=== PATIENT | female | born 1945 | race Caucasian/White ===

== ENCOUNTER 2018-07-20 17:30 | Outpatient (RCR) | payer BC, SELFPAY ==
--- NOTE | 2018-06-21 07:45 | HP.PTEVAL ---
Patient's Visit Information CROW BARTHOLOMEW is a 72 year old F referred to Physical Therapy by Chaitanya Estrella with a diagnosis of cervical facet OA. Date of Evaluation: 06/21/18 Physical Therapist: Ousmane Montero DPT, OC - Visit Plan Frequency: 2-3x /Week Duration: 2-4 Weeks Plan: 2-3x/week for 2-4 weeks for. 1. STM to UT, rhomboids, scalenes. 2. moist heat and ES to same. 3. postural correction and exercises to help with this and increased blood flow. - Subjective Subjective: Has had chronic neck pain for a long time radiating into thoracic spine. Had blood test recently. Neck pain has worsened in the last 6 months. 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 Picks her up 2-3x every hour. She is getting heavier. 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 Pain is 6/10 currently and this is normal for her. Always has some discomfort. Better stadning or lying and sitting is horrible.. Sleep is interrupted waking up 2-4x/night. Usually on L side. No arm symptoms, feels weak generally. Lifts with 3-5# weights daily. Basic ADLs are getting done but painful. Had vestibular neuritis three years ago. No more dizzyness. Feels unsteady at times. Riding in car is limited to an hour. Sit at computer for only 10 minutes. - Pain neck Pain Intensity (Out of 10): 6 Pain Intensity Range: 2, 7 - Objective 55 R rotation and 50 L rotation hurting contralaterally. 45 extension with just a stretch. Full flexion. Full UE AROM without pain. 2/3 bi and tri strength. Sensation UE WNL. Strength 4/5 UE strength without myotomal abnormalities. Very tender tissue UT into scalenes adn rhomboids. Forward head posture with structural kyphosis in upper thotacic spine. - c/s compression. - Goals Goal 1:: Patient painfree at rest and pain no greater tahn 2/10 Goal Time Frame: 4-6 Weeks Goal 2:: Patient I in approp HEP to manage condition and activity modification Goal Time Frame: 4-6 Weeks Goal 3:: Patient feel 75% improved overall adn sleep without interruption from pain. Goal Time Frame: 4-6 Weeks - Rehabilitation Potential Physical Therapy Diagnosis: cervical degeneration leading to pain. Rehabilitation Potential: Fair - Anticipated Interventions Patient/Client Instruction: Educate patient on: Condition, Plan of Care For the Purpose of:: To decrease pain, To increase ROM, To improve ability of physical actions for home/community/work/leisure Therapeutic Exercise to Include: Strength training, Postural training, Passive ROM, Active ROM For the Purpose of:: To decrease pain, To increase ROM, To improve nutrient delivery to tissue, To increase tolerance to activity/condition/position, To improve ability of physical actions for home/community/work/leisure Manual Therapy Techniques to Include: Mobilization, Soft tissue mobilization For the Purpose of:: To decrease pain, To improve nutrient delivery to tissue TENS: Yes - to c/s Thermo therapy (hot pack): Yes For the Purpose of:: To decrease pain, To decrease swelling/inflammation, To increase ROM Thank you for the opportunity to evaluate your patient. For Medicare and Medicare HMO plans, please review the plan of care and approve it. It will need to be FAXED BACK to us at [phone] for Medicare purposes. Please let me know if there are questions or concerns regarding this plan of care. Physician Signature: Date:
--- NOTE | 2018-09-03 13:33 | HP.PT.NRP ---
HP - Discharge Summary (1) - Patient Information CROW BARTHOLOMEW was seen in my office for initial evaluation on 06/21/18. The following Plan of Care was established for this patient: Initial Frequency: 2-3x /Week Initial Duration: 2-4 Weeks - Anticipated Interventions Patient/Client Instruction: Educate patient on: Condition, Plan of Care For the Purpose of:: To decrease pain, To increase ROM, To improve ability of physical actions for home/community/work/leisure Therapeutic Exercise to Include: Strength training, Postural training, Passive ROM, Active ROM For the Purpose of:: To decrease pain, To increase ROM, To improve nutrient delivery to tissue, To increase tolerance to activity/condition/position, To improve ability of physical actions for home/community/work/leisure Manual Therapy Techniques to Include: Mobilization, Soft tissue mobilization For the Purpose of:: To decrease pain, To improve nutrient delivery to tissue TENS: Yes - to c/s Thermo therapy (hot pack): Yes For the Purpose of:: To decrease pain, To decrease swelling/inflammation, To increase ROM This patient was last seen in our office 07/20/18. Pertinent comments regarding their Physical therapy will appear below: Pt seen 7 visits of POC and was feeling better. She cancelled her last scheduled visit and recheck adn neglected to return. At this point, I will discontinue due to nonattendance. At this point I will be discontinuing this patient from physical therapy. I would be happy to see this patient again in the future if found appropriate by the physician. Thank you! Ousmane Montero, DPT, OCS, CSCS
== END 2018-07-20 19:00 | disposition home or self-care (01) ==
LOC: PT 17:30
PROVIDERS: Family Provider Family Medicine; PCP Family Medicine; Visit Provider Family Medicine
DX: M46.92 Unspecified inflammatory spondylopathy, cervical region (principal); Z71.89 Other specified counseling; Z23 Encounter for immunization; Z13.1 Encounter for screening for diabetes mellitus; Z13.220 Encounter for screening for lipoid disorders
CPT/HCPCS: 97035; 97110; 97140; 97162; 97530

== ENCOUNTER 2018-10-14 01:17 | Observation (INO) | payer BC, SELFPAY ==
[2018-10-14] VITALS (13 sets, daily range): BP systolic 130–162; BP diastolic 62–92; PULSE 61–126; RESP 16–19; TEMP 36.2–37.1; O2SAT 95–100; BMI 27.0; BMI 25.2
--- NOTE | 2018-10-14 01:39 | EKG12_ITS ---
Test Reason : Blood Pressure : / mmHG Vent. Rate : 127 BPM Atrial Rate : 127 BPM P-R Int : 000 ms QRS Dur : 070 ms QT Int : 304 ms P-R-T Axes : 000 001 020 degrees QTc Int : 441 ms Accelerated Junctional rhythm with retrograde conduction Septal infarct , age undetermined Abnormal ECG Confirmed by ANGELA BAILEY, HERMAN ([id number]), television news video editor DANA RICHARDSON ([id number]) on 10/18/2018 5:11:45 PM Referred By: Pj Bose Confirmed By:HERMAN MILLER MD
--- NOTE | 2018-10-14 01:39 | RAD_ITS ---
STUDY: X-RAY CHEST REASON FOR EXAM: Female, 72 years old. Palpitations. TECHNIQUE: AP portable chest. COMPARISON: None. FINDINGS: The lungs are clear and expanded. There is no demonstrated pleural abnormality. Normal size heart. Normal mediastinum and elisha. Normal visualized pulmonary arteries. Normal visualized aortic arch and descending thoracic aorta. Normal visualized thoracic spine. Normal visualized ribs, clavicles, and shoulders. There is no demonstrated abnormality of the visualized soft tissue structures of the upper abdomen. RAD/Chest 1 View (Portable) IMPRESSION: Normal x-ray examination of the chest. Electronically Signed: Ramón Cleveland MD at 2:29 EST , Service support ,
[2018-10-14] MEDS: Aspirin 81 MG TAB.CHEW 324 MG PO (01:54)
[2018-10-14 01:56] LABS: Absolute Lymphocyte Count 2.93 X10^3/ul (0.83-4.51); Absolute Neutrophil Count 2.9 X10^3/uL (2.0-7.7); Basophil# 0.04 X10^3/uL; Basophil% 0.6 % (0-1); Eosinophil# 0.55 X10^3/uL; Eosinophils% 7.8 % (0-5); Hematocrit 43.2 % (37-47); Hemoglobin 13.8 g/dl (12.0-15.0); Lymphocyte # 2.93 X10^3/ul (4.0); Lymphocyte % 41.6 % (19-41); Mean Corp Hgb Conc 31.9 g/gl (32-36); Mean Corpuscular Hgb 31.4 pg (27.0-32.0); Mean Corpuscular Volume 98.4 fL (81-99); Mean Platelet Vol. 12.8 fl (6.2-12.0); Monocyte# 0.58 X10^3/uL; Monocyte% 8.2 % (0-10); Neutrophil # 2.93 X10^3/uL (2.7-7.7); Neutrophil % 41.7 % (47-70); POSITIVE COUNT NO; POSITIVE DIFFERENTIAL NO; POSITIVE MORPHOLOGY NO; Platelet Count 206 K/mm3 (150-450); RBC Distribution Width CV 13.5 % (11.6-14.6); RBC Distribution Width SD 48.5 fl (35.1-43.9); Red Blood Count 4.39 M/mm3 (4.2-5.4)
[2018-10-14 02:14] LABS: Anion Gap 10 (5-15); BUN 15 mg/dL (7-18); BUN/Creat Ratio 16.8 RATIO (10-20); Calcium,Total 9.8 mg/dL (8.5-10.1); Chloride 106 mmol/L (98-107); Creatinine, Serum 0.89 mg/dL (0.55-1.02); EST Glomerular Filtration Rate 66 mL/min (>60); Est Glom Filt Rate - Afr Amer 80 mL/min (>60); Estimated Creatinine Clearance 51.41 ml/min; Glucose 89 mg/dL (74-106); Potassium 3.9 mmol/L (3.5-5.1); Sodium Level 140 mmol/L (136-145)
--- NOTE | 2018-10-14 02:52 | PCM.HP.STD ---
Problem List (1) Atrial fibrillation with RVR Status: Acute (2) Hypertension Status: Chronic History of Present Illness Date of Admission: 10/14/18 Chief Complaint: racing heart The patient is a 72 year old F with a significant history of hypertension; and vestibular neuritis who presented to the emergency department because of a feeling of her heart racing. Her symptoms started few hours before her admission. Patient reported that she woke up and she felt strange. She reported that she felt that her heart was beating fast on the right side of her chest. She checked her pulse and pulse was 127. Her blood pressure was 147/77. Associated with her symptoms is nausea and malaise. Emegency Department doctor reported that whiles in patient's room, patient's heart rate was between 90-140 on the monitor and patient was in A. fib. EKG at the emergency department showed accelerated junctional. Emergency department doctor reported that after IV hydration patient converted back to sinus rhythm with a heart rate of below 90. 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) Leg pain (Chronic) Osteopenia (Chronic) Osteoarthritis (Chronic) Vestibular neuritis (Chronic) crain phlebectatica (Chronic) Allergies Sulfa (Sulfonamide Antibiotics) Allergy (Verified 10/14/18 01:18) Itching Benzodiazepines Adverse Reaction (Verified 10/14/18 01:18) Other Home Medications: Ambulatory Orders Medication Instructions Recorded Cholecalciferol (VIT D3) [Vitamin 1,000 unit PO BID 03/10/16 D] Ibuprofen [Advil] 400 mg PO PRN PRN 03/10/16 Latanoprost 0.005% [Xalatan 1 drop EACH EYE QHS 03/10/16 Opthalmic] Magnesium 500 mg PO BID 03/10/16 Surgical History: - - The patient has a history of tonsillectomy at age of 16. She has had multiple vein procedures as discussed above. She has a history of bilateral carpal tunnel release. A Ramos's neuroma was removed from her right foot. She's had bilateral cataract surgery. Lives: Spouse/ Significant Other Smoking Status: Never smoker Alcohol: Occasional - *Family History Maternal History Items: - - The patient's father at age of 62 from myocardial infarction. He also suffers from obesity. The patient's mother at age of 81, with a history of arthritis and dementia. Review of Systems Constitutional: Denies: Chills, Fever, Weight Change HEENT: Denies: Head Aches, Sinus Congestion, Sinus Drainage Cardiovascular: Reports: Palpitations. Denies: Chest Pain Respiratory: Denies: Cough, Shortness of breath at rest, Sputum production Gastrointestinal: Reports: Nausea. Denies: Abdominal Pain, Vomiting Genitourinary: Denies: Dysuria Musculoskeletal: Denies: Joint Pain, Joint Tenderness Skin: Denies: Rash, Wounds Neurological: Denies: Numbness, Tingling, Focal weakness Psychiatric: Denies: Anxiety, Depression, Homicidal Ideations, Suicidal Ideations Hematologic/ Lymphatic: Denies: Easy Bruising, Easy Bleeding VTE Information - Inpt Only VTE Present on Admission: No VTE Mechan Device Prophylaxis: None VTE Pharm Prophylaxis ordered?: No Reason prophylaxis not ordered:: Treatment Not Indicated - Started on therapeutic dose of Lovenox for A. fib. Patient Problems: Active and Suspected Problems Atrial fibrillation with RVR (Acute) - Physical Exam General: Alert, Oriented x3, Cooperative HEENT: Atraumatic, PERRLA, EOMI, Normocephalic Neck: Supple, No JVD, Negative Carotid Bruits Lungs: Clear to auscultation, Normal air movement Cardiovascular: No murmurs, Irregular Rate Abdomen: Bowel Sounds Present, Soft, Non Tender Extremities: No edema, Capillary Refill Less than 3 Seconds Skin: No rashes, No breakdown Musculoskeletal: No Tenderness to Palpation of Joints or Extremities Neurological: Neuro grossly intact Psych/Mental Status: Normal Affect, Appropriate Vital Signs Temp Pulse Resp BP Pulse Ox 97.1 F L 126 H 19 H 162/92 H 100 10/14/18 01:19 10/14/18 01:19 10/14/18 01:19 10/14/18 01:10/14/18 01:43 Oxygen Delivery Method Room Air Weight: 73.7 kg Body Mass Index (BMI) 27.0 Laboratory Tests Past 24 Hrs 10/14/18 10/14/18 01:25 01:25 WBC 7.0 RBC 4.39 Hgb 13.8 Hct 43.2 MCV 98.4 MCH 31.4 MCHC 31.9 L RDW 13.5 RDW Differential 48.5 H Plt Count 206 MPV 12.8 H Immature Gran % (Auto) 0.100 Neut % (Auto) 41.7 L Lymph % (Auto) 41.6 H [place] % (Auto) 8.2 Eos % (Auto) 7.8 H Baso % (Auto) 0.6 Absolute Neuts (auto) 2.9 Absolute Lymphs (auto) 2.93 Total Counted Not Reportable Sodium 140 Potassium 3.9 Chloride 106 Carbon Dioxide 24.0 Anion Gap 10 BUN 15 Creatinine 0.89 Estim Creat Clear Calc 51.41 Est GFR (MDRD) Af Amer 80 Est GFR (MDRD) Non-Af 66 BUN/Creatinine Ratio 16.8 Glucose 89 Calcium 9.8 Troponin I < 0.015 TSH 5.70 H Assessment/Plan All Active Problems Atrial fibrillation with RVR (Acute) Superficial thrombophlebitis (Acute) The patient is a 72 year old F with a significant history of hypertension; and vestibular neuritis who presented to the emergency department because of a feeling of her heart racing and found to be in new onset A. fib with RVR. A. fib with RVR Admitted to PCU on telemetry Obtain echo Lovenox 1 mg per kilogram subcutaneous x1 Because of concomitant hypertension will start patient on low-dose beta-yvonne. Check magnesium TSH was elevated. Will check free T4. We will continue patient on maintenance IV fluids because she could have been in A. fib due to dehydration. Consider cardiology consult Hypertension Patient reports that at home she controlled her blood pressure with diet. She reported that every time that her blood pressure is in the 150s. On admission her blood pressure was not within goal. We will start patient on low-dose metoprolol Elevated TSH Will check free T4. DVT Prophylaxis Not indicated since patient has been given therapeutic dose of Lovenox. Code Visit OBSV E&M: 95677 Initial observation care L3
--- NOTE | 2018-10-14 02:56 | ED.DCSUM_ITS ---
- ER Visit Summary Date of Service: 10/14/18 Chief Complaint: Heart racing History of Present Illness: The patient is a 72 F that woke up at 12:30 AM with her heart racing. She said her heart rate was in the 120s. She had some nausea and right side chest pain as well as palpitations. She felt weird. She never had these symptoms before. Nothing seemed to bring them on or make them worse. Nothing seemed to make them better. She reports a history of hypertension and glaucoma. She denies any history of dysrhythmias or coronary disease. Denies any history of PE or aortic disease. Physical Examination: Afebrile and vital signs unremarkable except for a blood pressure of 149/103 and a heart rate between 90 and 140. She is alert and oriented and appears anxious. Heart is irregularly irregular. Lungs are clear. Abdomen soft. Pulses are irregular. Calves are soft and supple, symmetric. Skin appears unremarkable. Test Results: EKG was read as a junctional rhythm at a rate of 127. CBC, BMP, troponin unremarkable. TSH 5.70 and chest x-ray normal. Emergency Department Course and Treatment: Patient placed on a monitor. Treated with a fluid bolus. Workup as above. On reevaluation at 2:50 AM, the patient was feeling slightly better. Heart rate was 81 and she appeared to be in sinus rhythm. Patient presents with new onset atrial fibrillation. Hospitalist was contacted for further inpatient care. Treatment Plan: As above Disposition: AdMission Impression: 1. Atrial fibrillation 2. Hypothyroidism This note was generated with [employer] dictation software. It may contain incorrect words, spelling, and punctuation that were not noted in review of the chart prior to signing ED Disposition - Plan for ED Patient: Referrals: Chaitanya Estrella III, MD [Primary Care Provider] -
--- NOTE | 2018-10-14 04:32 | ECHOD_ITS ---
Reason For Study: ATRIAL FIB-FLUTTER Procedure This was a 2D Doppler, Color Flow transthoracic echocardiogram. Exam performed portable in patient room. Left Ventricle Normal LV size. Left ventricular systolic function is normal. The estimated ejection fraction is 55 %. No evidence for diastolic dysfunction. No regional wall motion abnormalities noted. Right Ventricle Normal RV size. Normal systolic function. Atria The left atrium is mildly enlarged. Normal right atrium. Mitral Valve Mild diffuse mitral valve thickening. Mild (1+) eccentric mitral valve insufficiency. Tricuspid Valve Normal tricuspid valve. Mild (1+) tricuspid valve insufficiency. Pulmonary artery systolic pressure is 28 mmHg. Aortic Valve Trisinus/trileaflet aortic valve. Pulmonic Valve Normal pulmonic valve. Great Vessels Normal aortic root. The pulmonary artery is normal size. Normal inferior vena cava. Pericardium/Pleural No pericardial effusion. MMode/2D Measurements & Calculations LVIDd: 3.9 cm IVSd: 0.89 cm Ao root diam: 2.9 cm LVIDs: 2.6 cm LVPWd: 0.95 cm RVDd: 3.9 cm FS: 33.5 % LAV(MOD-bp): 74.6 ml LVAd ap4: 26.9 cm2 SV(MOD-sp4): 42.3 ml LAV(MOD-bp) Indexed: 42.5 ml/m2 EDV(MOD-sp4): 74.7 ml LAV(MOD-sp2): 82.0 ml EDV(sp4-el): 78.5 ml LAV(MOD-sp4): 60.3 ml LVAs ap4: 15.3 cm2 ESV(MOD-sp4): 32.4 ml ESV(sp4-el): 33.3 ml EF(MOD-sp4): 56.7 % EF(sp4-el): 57.5 % SV(sp4-el): 45.1 ml LA A4 area: 21.7 cm2 LA dimension(2D): 3.3 cm RA A4 area: 19.7 cm2 Time Measurements MV dec time: 0.20 sec Doppler Measurements & Calculations MV E max cy: 92.8 cm/sec Lat Peak E' Cy: 16.4 cm/sec Med Peak E' Cy: 10.5 cm/sec MV A max cy: 64.3 cm/sec E/E' lat: 5.7 E/E' med: 8.9 MV E/A: 1.4 Ao V2 max: 142.9 cm/sec LV V1 max: 108.0 cm/sec PA V2 max: 72.8 cm/sec Ao max P.2 mmHg LV V1 max P.7 mmHg TR max cy: 240.3 cm/sec TR max P.1 mmHg Interpretation Summary Normal LV size. Left ventricular systolic function is normal. The estimated ejection fraction is 55 %. No evidence for diastolic dysfunction. Mild diffuse mitral valve thickening. Mild (1+) eccentric mitral valve insufficiency. Ordering Physician: Pj Bose Referring Physician: [place] KENNEDY Performed By: Marce Sharp RDCS
[2018-10-14] MEDS: 0.9% Normal Saline 1,000 ML 100 ML IV (04:50)
[2018-10-14] MEDS: Metoprolol Tartrate 25 MG Tablet 12.5 MG PO (05:16)
[2018-10-14] MEDS: Enoxaparin 80 MG/0.8 ML Syringe SC (05:18)
[2018-10-14 06:31] LABS: Cholesterol 151 mg/dL (200); High Density Lipoprotein 50 mg/dL; Magnesium 2.3 mg/dL (1.6-2.6); T4 Free Direct 1.08 ng/dL (0.76-1.46); Triglycerides 57 mg/dL; Very Low Density Lipoprotein 11 mg/dL (5-40)
--- NOTE | 2018-10-14 12:52 | EKG12_ITS ---
Test Reason : POST CARDIOVERSON Blood Pressure : / mmHG Vent. Rate : 059 BPM Atrial Rate : 059 BPM P-R Int : 216 ms QRS Dur : 080 ms QT Int : 418 ms P-R-T Axes : 060 -04 037 degrees QTc Int : 413 ms Sinus bradycardia with 1st degree A-V block Otherwise normal ECG When compared with ECG of 14-OCT-2018 01:22, MANUAL COMPARISON REQUIRED, DATA IS UNCONFIRMED Confirmed by ANGELA BAILEY, HERMAN ([id number]), acquisitions editor DANA RICHARDSON ([id number]) on 10/18/2018 5:24:33 PM Referred By: Pj Bose Confirmed By:HERMAN MILLER MD
--- NOTE | 2018-10-14 15:06 | DCINST_ITS ---
- Discharge Diagnoses Current Active Problems: Current Active and Chronic Problems Atrial fibrillation with RVR (Acute) You will use the following diet at home:: Cardiac Your food should be the consistency of: Regular Your liquids should be the consistency of: Regular/Thin Discharge Activity: Return to Normal Activity Allergies/Adverse Reactions: Allergies Sulfa (Sulfonamide Antibiotics) Allergy (Verified 10/14/18 01:18) Itching Benzodiazepines Adverse Reaction (Verified 10/14/18 01:18) Other Medications to take at Discharge Cholecalciferol (VIT D3) [Vitamin D3] 1,000 unit PO BID 03/10/16 Ibuprofen [Motrin] 400 mg PO PRN PRN 03/10/16 Latanoprost 0.005% [Xalatan Opthalmic] 1 drop EACH EYE QHS 03/10/16 Magnesium 500 mg PO BID 03/10/16 Metoprolol Tartrate [Lopressor (beta yvonne)] 12.5 mg PO BID #30 tablet 10/14/18 The following prescriptions were given: Metoprolol Tartrate [Lopressor (beta yvonne)] 12.5 mg PO BID #30 tablet Primary Care Physician: Chaitanya Estrella III, MD [Primary Care Provider] - Please follow up with your Primary Care Physician in: 7-10 days Test Results: Test results from this visit will be discussed in further detail at your follow- up appointment, if applicable. Please Follow Up With: Dominguez Garsia MD When: 14 days Proposed Discharge Date: 10/14/18
--- NOTE | 2018-10-14 17:03 | PCM.DC.SUM ---
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 Left ventricular systolic function is normal. The estimated ejection fraction is 55 %. No evidence for diastolic dysfunction. Mild diffuse mitral valve thickening. Mild (1+) eccentric mitral valve insufficiency. RAD/Chest 1 View (Portable) IMPRESSION: Normal x-ray examination of the chest. Operations: None Procedures: 2-D Echocardiogram Summary of Care Provided: Hospital Course: The patient is a 72 year old F with pmhx as above who presented to the ER with racing heart. She was found to have an atrial rhythm with rate in the 120s. EKG was obtained at at that time she was thought to be in Afib. She was given IV fluids and her rate slowed down. She was given therapeutic lovenox. She was admitted to the PCU for monitoring. She was started on low dose beta yvonne. She remained stable overnight with no further issues. Troponin was negative. Mag normal. TSH somewhat elevated, however T4 normal. The case was discussed with cardiology. On further review the EKG did not appear to show Afib. She has no hx of Afib. Cardiology recommended an event monitor and this was arranged for her. She will go on low dose lopressor. She had an echo which was unremarkable as above. She will need to follow up with her PCP in 7-[address] Garsia in 2 weeks. She was discharged home in stable condition. This patient was seen by Tavon Motta PA-C under the supervision of Doctor Do. [] - Physical Exam General: Alert, Oriented x3, Cooperative HEENT: Atraumatic, PERRLA, EOMI, Normocephalic Neck: Supple, No JVD, Negative Carotid Bruits Lungs: Clear to auscultation, Normal air movement Cardiovascular: Regular rate, No murmurs Abdomen: Bowel Sounds Present, Soft, Non Tender Extremities: No edema, Capillary Refill Less than 3 Seconds Skin: No rashes, No breakdown Musculoskeletal: No Tenderness to Palpation of Joints or Extremities Neurological: Cranial nerves II-XII grossly intact Psych/Mental Status: Normal Affect, Appropriate, Alert and oriented to time, place, person, mood and affect Vital Signs Temp Pulse Resp BP Pulse Ox 98.7 F 61 16 130/62 H 96 10/14/18 10:19 10/14/18 14:06 10/14/18 10:10/14/18 10:10/14/18 13:52 Oxygen Delivery Method Room Air Weight: 151 lb 10.848 oz Body Mass Index (BMI) 25.2 Intake and Output for Last 24 Hours 10/12/18 10/13/18 10/14/18 23:59 23:59 23:59 Intake Total 480 / 480 Balance 480 / 480 Laboratory Tests Past 24 Hrs 10/14/18 10/14/18 10/14/18 01:25 01:25 05:25 WBC 7.0 RBC 4.39 Hgb 13.8 Hct 43.2 MCV 98.4 MCH 31.4 MCHC 31.9 L RDW 13.5 RDW Differential 48.5 H Plt Count 206 MPV 12.8 H Immature Gran % (Auto) 0.100 Neut % (Auto) 41.7 L Lymph % (Auto) 41.6 H [place] % (Auto) 8.2 Eos % (Auto) 7.8 H Baso % (Auto) 0.6 Absolute Neuts (auto) 2.9 Absolute Lymphs (auto) 2.93 Total Counted Not Reportable Sodium 140 Potassium 3.9 Chloride 106 Carbon Dioxide 24.0 Anion Gap 10 BUN 15 Creatinine 0.89 Estim Creat Clear Calc 51.41 Est GFR (MDRD) Af Amer 80 Est GFR (MDRD) Non-Af 66 BUN/Creatinine Ratio 16.8 Glucose 89 Calcium 9.8 Magnesium 2.3 Troponin I < 0.015 Triglycerides 57 Cholesterol 151 LDL Cholesterol 90 VLDL Cholesterol 11 HDL Cholesterol 50 TSH 5.70 H Free T4 1.08 Discharge Diet: Low fat/ Low Cholesterol, 2000 mg Sodium Diet Discharge Activity: Return to Normal Activity Home Medications: Medications to take at Discharge Cholecalciferol (VIT D3) [Vitamin D3] 1,000 unit PO BID 07/18/16 Ibuprofen [Motrin] 400 mg PO PRN PRN 03/10/16 Latanoprost 0.005% [Xalatan Opthalmic] 1 drop EACH EYE QHS 03/10/16 Magnesium 500 mg PO BID 03/10/16 Metoprolol Tartrate [Lopressor (beta yvonne)] 12.5 mg PO BID #30 tablet 10/14/18 Following Prescrptions Were Given to Patient: Metoprolol Tartrate [Lopressor (beta yvonne)] 12.5 mg PO BID #30 tablet Primary Care Physician: Chaitanya Estrella III, MD [Primary Care Provider] - Please follow up with your Primary Care Physician in: 7-10 days Please Follow Up With: Dominguez Garsia MD When: 14 days Disposition: Home Minutes spent on discharge:: 35 Patient Condition:: Stable Medical Necessity - Tobacco Use Smoking Status: Never smoker Meaningful Use Info Meaningful Use Diagnoses (Choose all that apply): None applicable
== END 2018-10-14 15:05 | disposition home health service (06) ==
LOC: ED 01:55 → PCU 04:08
PROVIDERS: Admitting Provider Hospitalist; Emergency Provider Emergency Medicine; Family Provider Family Medicine; PCP Family Medicine; Referring Provider Hospitalist; Visit Provider Internal Medicine
DX: R00.0 Tachycardia, unspecified (principal); I10 Essential (primary) hypertension; M19.90 Unspecified osteoarthritis, unspecified site; H40.9 Unspecified glaucoma; I87.2 Venous insufficiency (chronic) (peripheral); H93.3X9 Disorders of unspecified acoustic nerve; I48.91 Unspecified atrial fibrillation; Z79.899 Other long term (current) drug therapy; R00.2 Palpitations; R07.89 Other chest pain; R11.0 Nausea; E03.9 Hypothyroidism, unspecified
CPT/HCPCS: 36415; 71045; 80048; 80061; 83735; 84439; 84443; 84484; 85025; 93005; 93306; 96360; 96361; 96372; 99218; 99285; J7030; A4216; G0378

== ENCOUNTER → 2018-10-14 16:25 | Outpatient (CLI) | payer BC, SELFPAY ==
[2018-10-14 04:45] VITALS: BMI 25.2
== END ==
PROVIDERS: Family Provider Family Medicine; PCP Family Medicine; Referring Provider Internal Medicine Cardiovascular Disease; Visit Provider Internal Medicine Cardiovascular Disease
DX: I48.91 Unspecified atrial fibrillation (principal)
CPT/HCPCS: 93225; 93226

== ENCOUNTER → 2018-11-01 08:17 | Outpatient (CLI) | payer BC, SELFPAY ==
[2018-11-01 08:09] VITALS: BMI 25.2
--- NOTE | 2018-11-01 08:20 | RAD_ITS ---
STUDY: X-RAY - RIGHT KNEE REASON FOR EXAM: Female, 72 years old. Pain. TECHNIQUE: 4 view(s) of the knee. COMPARISON: None. FINDINGS: Normal visualized distal femur. Normal visualized proximal tibia and fibula. Normal proximal tibiofibular articulation. There is no demonstrated fracture. Normal medial femorotibial compartment. Normal lateral femorotibial compartment. Normal patellofemoral articulation. There is a soft tissue prominence in the suprapatellar region suggesting a small volume joint effusion. The soft tissue structures are unremarkable. RAD/Knee 4 or More Views IMPRESSION: No acute fracture or dislocation. Possible small effusion. Electronically Signed: Wellington Blanca MD at 0:03 EDT , Service support ,
== END ==
PROVIDERS: Family Provider Family Medicine; PCP Family Medicine; Referring Provider Orthopaedic Surgery; Visit Provider Orthopaedic Surgery
DX: R52 Pain, unspecified (principal)
CPT/HCPCS: 73564

== ENCOUNTER 2019-06-07 06:30 | Emergency (ER) | payer BC, SELFPAY ==
[2018-11-03 16:09] VITALS: BMI 24.8
[2019-06-07 06:31] VITALS: BP 145/67; PULSE 76; RESP 16; TEMP 36.6; O2SAT 96; BMI 25.0
--- NOTE | 2019-06-07 06:49 | EKG12_ITS ---
Test Reason : SOB Blood Pressure : / mmHG Vent. Rate : 074 BPM Atrial Rate : 074 BPM P-R Int : 174 ms QRS Dur : 084 ms QT Int : 384 ms P-R-T Axes : 067 -13 053 degrees QTc Int : 426 ms Normal sinus rhythm Normal ECG Confirmed by DOMINGO BAILEY, AIDE ([id number]), makeup editor ISATU JACKSON ([id number]) on 06/08/2019 9:01:05 AM Referred By: JAN Confirmed By:AIDE LANE MD
--- NOTE | 2019-06-07 06:49 | RAD_ITS ---
HISTORY: cough, SOB EXAMINATION/TECHNIQUE: XR Chest 2 Views: COMPARISON: 10/14/2018 FINDINGS: The heart is upper normal in size. Mild hyperinflation compatible with COPD. With comparison to previous, the left perihilar bronchovascular markings are increased related to bronchitis or low-grade infiltrate. No vascular congestion or pleural effusion. No pneumothorax. RAD/Chest PA and Lateral IMPRESSION: COPD with increased left perihilar bronchovascular markings related to bronchitis or low-grade pneumonia at 0758 Reported and signed by: Adams Navarro MD Electronically Signed: Adams Navarro, at 7:57 EDT Tel , Service support ,
--- NOTE | 2019-06-07 06:50 | ED.VIS.DYS ---
History of Present Illness Chief Complaint: Shortness of Breath Informant: Patient Onset: Days - 4 Activity at onset: - - Gradual onset Quality: Dyspnea on exertion, Wheezing Current Severity: Severe Maximum Severity: Severe Worsened by: Coughing, Exertion. Not Worsened By: Lying flat Relieved by: Nothing Associated Symptoms: Cough, Green sputum. 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 In the past 4 days she has become gradually wheezing and short of breath. She has a history of asthma in the past that she thought maybe she outgrew. She has not tried any inhalers or albuterol treatments. She went back to urgent care since she has been coughing up green sputum now and short of breath and thought they would see her again but they sent her to the ER. She denies any lower extremity edema or chest discomfort. No history of heart problems. PE Risk Factors: Negative for: Cancer, OCP + Smoking + > 35, Prior DVT or PE, Recent immobilization, Recent surgery, Recent travel - Past Medical History (1) Atrial tachycardia Status: Resolved (2) Essential (primary) hypertension Status: Chronic (3) Asthma Status: Chronic Past Medical History - Allergies and Home Meds Allergies/Adverse Reactions: Allergies Sulfa (Sulfonamide Antibiotics) Allergy (Verified 06/07/19 06:50) Itching Benzodiazepines Adverse Reaction (Verified 06/07/19 06:50) Other Primary Care Physician: Chaitanya Estrella III, MD [Primary Care Provider] - Lives: Alone Smoking Status: Never smoker - Family History Maternal Family History: Family History (Last Reviewed 11/03/18 @ 16:23 by Dominguez Garsia MD) Father Myocardial infarction Family History: Reports: - - The patient's father at age of 62 from myocardial infarction. He also suffers from obesity. The patient's mother at age of 81, with a history of arthritis and dementia. Review of Systems General: Reports: Malaise. Denies: Chills, Fever, Sweats Eyes: Denies: Visual changes - bilaterally, Diplopia ENT: Denies: Bilateral ear pain, Rhinorrhea, Sore throat Cardiovascular: Denies: Chest pain, Palpitations, Heart racing Respiratory: Reports: Dyspnea, Cough, Sputum, Dyspnea on exertion Gastrointestinal: Denies: Abdominal pain, Nausea, Vomiting, Diarrhea, Melena, Hematochezia Genitourinary: Denies: Dysuria, Hematuria, Frequency Musculoskeletal: Denies: Back pain, Swelling, Extremity Pain Skin: Denies: Rash, Wounds Neurological: Reports: Headache - improved now. Denies: Weakness, Numbness Physical Exam Vital Signs/Narrative: Vital Signs Temp Pulse Resp BP Pulse Ox 06/07/19 06:31 97.8 F 76 16 145/67 H 96 Inital Vital Signs reviewed: Yes General: Well nourished, Well developed, Acute Distress - mild resp, speaking in 3-5-word sentences Head: Normocephalic, Atraumatic Eyes: Perrl, EOMI ENT: Moist mucous membranes, No rhinorrhea, TM's clear. Negative for: Nasal congestion, Sinus tenderness Neck: Supple, Nontender, No lymphadenopathy, No JVD Cardiovascular: Regular rate, Regular rhythm, No murmurs, Normal S1, Normal S2 Respiratory: No distress, Chest nontender, Rales - bibasilar, Wheezing - mild bibasilar Abdomen: Soft, Nontender, Nondistended, Normal bowel sounds Back: Nontender, Normal Inspection Extremities: Nontender, No edema. Negative for: Calf Tenderness Skin: Normal color, No rash, No Trauma Neurological: Alert, Oriented x3, Cranial nerves II-XII grossly intact, Normal Strength, Normal Sensation Psychological: Normal affect, Normal Mood Diagnostic/Tx/Re-eval Impressions Chest X-Ray 06/07/19 06:49 IMPRESSION: COPD with increased left perihilar bronchovascular markings related to bronchitis or low-grade pneumonia at 0758 Reported and signed by: Adams Navarro MD Electronically Signed: Adams Navarro, at 7:57 EDT Tel , Service support , 06/07/19 06:49 Chest PA and Lateral [RAD] Stat Laboratory Results 06/07/19 06/07/19 06/07/19 06:45 06:45 06:45 WBC 6.4 RBC 4.01 L Hgb 13.2 Hct 39.6 MCV 98.8 MCH 32.9 H MCHC 33.3 RDW Std Deviation 45.7 H RDW Coeff of Dulce 12.6 Plt Count 233 MPV 12.0 Immature Gran % (Auto) 0.300 Neut % (Auto) 51.2 Lymph % (Auto) 26.5 [place] % (Auto) 10.7 H Eos % (Auto) 9.9 H Baso % (Auto) 1.4 H Absolute Neuts (auto) 3.3 Absolute Lymphs (auto) 1.69 Nucleated RBC % 0 Sodium 140 Potassium 3.6 Chloride 106 Carbon Dioxide 30.0 Anion Gap 4 L BUN 11 Creatinine 0.78 Estim Creat Clear Calc 45.09 Est GFR (MDRD) Af Amer 94 Est GFR (MDRD) Non-Af 77 BUN/Creatinine Ratio 14.2 Glucose 116 H Calcium 9.3 Troponin I < 0.015 B-Natriuretic Peptide 32.8 - Rhythm Strip Rhythm Strip: Sinus Rhythm Rate: 74 Ectopy: None - EKG Initial EKG Interpretation: Sinus Rhythm, No Acute Injury Pattern - nml EKG Treatment - Dyspnea: Albuterol, Atrovent, Steroid Repeat Evaluation: Improved - Medical Decision Making Chest x-ray shows chronic changes plus changes that may indicate acute bronchitis versus early pneumonia. She felt a lot better after nebulizer treatments, she did feel dyspneic with some bronchospasm make episodes, but was able to recover on her own from these without other treatment. Her labs are unremarkable with a negative BNP and troponin, her EKG is normal. I offered admission but she declines and is comfortable going home with antibiotics and prednisone, she was given an initial dose of Solu-Medrol here. She will also be given a prescription for albuterol MDI to use at home as needed. She is comfortable with this plan and we discussed reasons to return. ED Disposition - Plan for ED Patient: Disposition: Home or Assisted Living Diagnosis: Asthma exacerbation, Acute bronchitis Instructions: ASTHMA, Acute (Adult), BRONCHITIS, Antiobiotic Treatment (Adult) Prescriptions: Prednisone [Deltasone] 40 mg PO DAILY #10 tab Transmission Status: Pending to [facility] Albuterol Inhaler [Ventolin Hfa] 1 - 2 puff INHALATION Q4H PRN PRN #1 inhaler PRN Reason: Wheezing Transmission Status: Pending to [facility] Azithromycin [Zithromax Z-Kenneth] 250 mg PO UD #1 box Transmission Status: Pending to [facility] Referrals: Chaitanya Estrella III, MD [Primary Care Provider] - 2 Days
[2019-06-07 07:00] LABS: Red Blood Count 4.01 M/mm3 (4.2-5.4); White Blood Count 6.4 K/mm3 (4.4-11.0)
[2019-06-07 07:01] LABS: Absolute Lymphocyte Count 1.69 X10^3/uL (0.83-4.51); Absolute Neutrophil Count 3.3 X10^3/uL (2.0-7.7); Basophil# 0.09 X10^3/uL; Basophil% 1.4 % (0-1); Eosinophil# 0.63 X10^3/uL; Eosinophils% 9.9 % (0-5); Hematocrit 39.6 % (37-47); Hemoglobin 13.2 g/dL (12.0-15.0); Lymphocyte # 1.69 X10^3/ul (4.0); Lymphocyte % 26.5 % (19-41); Mean Corp Hgb Conc 33.3 g/dL (32-36); Mean Corpuscular Hgb 32.9 pg (27.0-32.0); Mean Corpuscular Volume 98.8 fL (81-99); Monocyte# 0.68 X10^3/uL; Monocyte% 10.7 % (0-10); NRBC Flagged by Analyzer 0 % (0-5); Neutrophil # 3.26 X10^3/uL (2.7-7.7); Neutrophil % 51.2 % (47-70); Platelet Count 233 K/mm3 (150-450); RBC Distribution Width CV 12.6 % (11.6-14.6); RBC Distribution Width SD 45.7 fl (35.1-43.9)
[2019-06-07 07:05] VITALS: PULSE 72; RESP 15; O2SAT 97
[2019-06-07] MEDS: Ipratropium/Albuterol Sulfate 3 ML AMPUL.NEB INHALATION (07:05)
[2019-06-07 07:18] LABS: Anion Gap 4 (5-15); BUN 11 mg/dL (7-18); BUN/Creat Ratio 14.2 RATIO (10-20); Calcium,Total 9.3 mg/dL (8.5-10.1); Chloride 106 mmol/L (98-107); Creatinine, Serum 0.78 mg/dL (0.55-1.02); EST Glomerular Filtration Rate 77 mL/min (>60); Est Glom Filt Rate - Afr Amer 94 mL/min (>60); Estimated Creatinine Clearance 45.09 ml/min; Glucose 116 mg/dL (74-106); Potassium 3.6 mmol/L (3.5-5.1); Sodium Level 140 mmol/L (136-145)
[2019-06-07] MEDS: Albuterol 2.5 MG/3 ML VIAL.NEB. INHALATION (08:13)
[2019-06-07 08:14] VITALS: PULSE 67; RESP 12; O2SAT 98
[2019-06-07 08:14] LABS: BNP,B-Type NATRIURETIC PEPTIDE 32.8 pg/mL (0-100)
[2019-06-07 08:31] VITALS: BP 139/68; PULSE 72; RESP 18; O2SAT 98
[2019-06-07] MEDS: MethylPREDNISolone 125 MG/2 ML Vial IV (08:32)
[2019-06-07 08:46] VITALS: O2SAT 96
[2019-06-07 09:43] VITALS: BP 125/60; PULSE 78; RESP 18; TEMP 35.5
== END 2019-06-07 09:44 | disposition home or self-care (01) ==
PROVIDERS: Emergency Provider Emergency Medicine; Family Provider Family Medicine; PCP Family Medicine
DX: J44.0 Chronic obstructive pulmonary disease with (acute) lower respiratory infection (principal); J20.9 Acute bronchitis, unspecified; J45.901 Unspecified asthma with (acute) exacerbation; I10 Essential (primary) hypertension
CPT/HCPCS: 71046; 80048; 83880; 84484; 85025; 93005; 94640; 96374; 99285; A4216

== ENCOUNTER → 2019-07-15 15:51 | Outpatient (CLI) | payer BC, SELFPAY | PROVIDERS: Family Provider Family Medicine; PCP Family Medicine; Referring Provider Otolaryngology Otolaryngology/Facial Plastic Surgery; Visit Provider Otolaryngology Otolaryngology/Facial Plastic Surgery | DX: J02.9 Acute pharyngitis, unspecified (principal) | CPT/HCPCS: 87070 ==

== ENCOUNTER 2019-08-23 06:53 | Day surgery (SDC) | payer BC, SELFPAY ==
--- NOTE | 2019-08-02 04:14 | HP_ITS ---
Intake Vital Signs 08/02/19 Body Mass Index (BMI) 25.0 08/02/19 Height 5 ft 5 in 08/02/19 Weight: 155 lb 08/02/19 Body Mass Index (BMI) 25.7 08/02/19 Blood Pressure 168/84 H 08/02/19 Blood Pressure Location Rt brachial 08/02/19 Blood Pressure Position Sitting 08/02/19 Respiratory Rate 18 08/02/19 Pulse Rate 70 08/02/19 Pulse Source Monitor 08/02/19 Temperature 97.8 F 08/02/19 Temperature Source Oral 08/02/19 Pulse Ox 99 08/02/19 Oxygen Delivery Method room air Intake Visit Reasons: change in bowel habits, cscope Chief Complaint: c-scope consult Db2 Dba Required: No Is patient in pain?: No Allergies Sulfa (Sulfonamide Antibiotics) Allergy (Verified 08/02/19 16:00) Itching Benzodiazepines Adverse Reaction (Verified 08/02/19 16:00) Other Medications Cholecalciferol (VIT D3) [Vitamin D3] 1,000 unit PO BID 03/10/16 [History Confirmed 08/02/19] Ibuprofen [Motrin] 400 mg PO PRN PRN 03/10/16 [History Confirmed 08/02/19] Latanoprost 0.005% [Xalatan Opthalmic] 1 drp EACH EYE QHS 03/10/16 [History Confirmed 08/02/19] Magnesium 500 mg PO BID 03/10/16 [History Confirmed 08/02/19] Albuterol Inhaler [Ventolin Hfa] 1 - 2 puff INHALATION Q4H PRN PRN #1 inhaler 06/07/19 [Rx Confirmed 08/02/19] Ubidecarenone [Coq10] 30 mg PO DAILY 06/07/19 [History Confirmed 08/02/19] PFSH Medical History (Updated 08/02/19 @ 16:12 by Gene Estrella MD) Change in bowel habit (Acute) Asthma (Chronic) Near syncope (Acute) Atrial tachycardia (Resolved 10/14/18) Essential (primary) hypertension (Chronic) Chronic venous insufficiency (Chronic) Glaucoma (Chronic) Osteoarthritis (Chronic) Osteopenia (Chronic) Varicose vein of leg (Chronic) Vestibular neuritis (Chronic) Surgical History (Updated 08/02/19 @ 15:57 by Carla Bowen) history TMJ surgery (Acute) history vein surgery (Acute) History of cataract surgery (Chronic) History of carpal tunnel release (Resolved) History of tonsillectomy (Resolved) S/P excision of Ramos's neuroma (Resolved) Family History (Updated 08/02/19 @ 15:58 by Carla Bowen) Father Myocardial infarction from [place] age 61 Heart disease Diabetes Sister Breast cancer Social History (Updated 08/02/19 @ 16:14 by Gene Estrella MD) Smoking Status: Never smoker alcohol intake: current alcohol intake frequency: a few times a month substance use type: does not use HPI HPI HPI: CROW BARTHOLOMEW, is a 73 F who presents to the office today for HPI HPI Surgical H&P: Yes HPI: CROW BARTHOLOMEW, is a 73 F who presents to the office today for who presents today for surgical consultation regarding a change of bowel habits. She claims that she has fecal urgency. She has 3-4 looser stools per day. This is been going on for 2 to 3 months. Now in late April she became sick with what sounds like a respiratory problem. She was placed on Augmentin. That failed to solve the problem she went to ER visit was diagnosed with bronchitis and pneumonia. She was placed back on antibiotics and prednisone. That has not completely solve the problem and she is again been placed on steroids. She is improved but not completely resolved from a respiratory standpoint. 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 It is of note that November 08, 2010 Dr. Medina assisted her with a colonoscopy. 2 sessile polyps were found in the proximal transverse colon. They both were tubular adenoma. She denies bright red blood per rectum or melena. She does have overactive urinary bladder. It has been recommended to her that she do [place] exercises. She denies family history of colon cancer. She denies abdominal pain. She has not had any unexpected weight loss. The patient was referred by her Primary care physician Dr. Chaitanya Estrella, III and a written copy of my surgical consult recommendations will be returned to him ROS General General: Yes weight change and fatigue; no appetite, colon cancer, breast cancer or weakness HEENT HEENT: No difficulty swallowing, eye injury, eye surgery, swollen glands or hoarseness Endo Endocrine: No thyroid disease, diabetes mellitus, thyroid cancer, Hair loss, heat intolerance or cold intolerance Skin Skin: No rash or changing moles Breast Breast: No left breast lump, right breast lump, nipple discharge, breast pain, abnormal mammogram, abnormal US or breast enlargement Musc Musculoskeletal: Yes arthritis; no back problems, rheumatoid arthritis, gout or joint pain Cardio Cardiovascular: Yes heart disease and high blood pressure; no murmur, pacemaker, atrial fibrillation, heart attack, heart stent, palpitations, shortness of breat with exertion or chest pain Psych Psychiatric: Yes depression and anxiety; no hearing voices Resp Respiratory: Yes shortness of breath, No sleep apnea, No cough, No COPD, No asthma, No emphysema, No wheezing Gastro Gastrointestinal: No abdominal pain, No nausea or vomiting, No diarrhea, No constipation, No blood in stool, No acid reflux, Yes hemorrhoids, No ulcers, No gallbladder problem, No black,tarry stools [place] Hematologic: No blood thinners, No blood disorders, No bleeding, No anemia, No blood clots Neuro Neurologic: No system reviewed and no additional complaints, except as docu, No as per HPI, No abnormal walking, No abnormal hearing, No abnormal movements, No abnormal speech, No behavioral changes, No burning sensations, No confusion, No seizure-like activity, No unsteadiness, No dizziness, No localized weakness, No frequent falls, No headache(s), No lack of coordination, No loss of vision, No memory loss, No numbness, No other visual disturbances, No radiating pain, No restless legs, No sensory deficit, No fainting, No tingling, No tremor(s), No weakness, No other Exam Const General: cooperative, healthy appearing, comfortable, no acute distress Nutritional Appearance: average body habitus Orientation: alert, awake [facility] Head: normal to inspection Chest Chest palpation & inspection: normal inspection of the chest Breast Palpation: No nipple discharge Resp Effort & Inspection: normal respiratory effort Auscultation: clear to auscultation bilaterally Cardio Rate: regular rate Rhythm: regular rhythm Heart Sounds: no murmurs GI Palpation: soft, no hepatosplenomegaly Auscultation: normal bowel sounds Neuro Cognition: normal cognition Extrem General: calf tenderness Psych Affect: normal affect Assessment & Plan Problems 1. Change in bowel habit R19.4 Plan Change of bowel habit with more frequent stools and softer stools. Personal history of tubular adenoma of the colon. Fecal urgency but also bladder spasticity urgency as well. It is not clear to me whether this is a pelvic floor generalized issue or a colonic issue. I recommend a colonoscopy with possible biopsy or polypectomy is indicated. I would likely pursue random colonic biopsies to assist with the looser stool diagnosis. Because of her recent respiratory issues and the fact that her previous colonoscopy did require a moderate amount of Demerol/ Versed I recommend monitored anesthesia care. She has had an opportunity to ask and have questions answered. She would like to have this completed before years end. CC: Dr. Chaitanya Estrella, III Gene Estrella M.D., F.A.C.S. Coding Level of Care Code 70916 Diagnoses Change in bowel habit R19.4 08/02/19 1614 <Electronically signed by Gene silva MD> Date _ Gene Estrella MD I have re-examined the patient. There are no clinical changes since date of exam.
[2019-08-02 16:01] VITALS: BMI 25.0
[2019-08-23 07:10] VITALS: BP 152/59; PULSE 60; RESP 14; TEMP 36.9; O2SAT 100; BMI 24.7
[2019-08-23] MEDS: Lactated Ringers 1,000 ML 100 ML IV (07:31)
--- NOTE | 2019-08-23 08:00 | COLBX_PTH ---
PATIENT: CROW BARTHOLOMEW LOC: EN U#:[id number] AGE/SX: 73/F ROOM: RE08/23/[address]: Dr. Gene Estrella MD : 1945 BED: DIS: 08/23/2019 SPEC #: [id number] RECD: 08/23/19 12:16 STATUS: NIKKO MCKENNALaure #: [id number] SEPIDEH: 08/23/19 08:[address]: Gene Estrella DEPT: SURGICAL PATHOLOGY RECD BY: Chirag Wells ENTERED: 08/23/19 12:17 SP TYPE: COLON BX OT DR: Dr. Chaitanya Estrella III, MD Tissues: COLON BIOPSY Procedures: Surgery Specimen Level IV HEADER OPERATION: Colonoscopy (MAC) PRE-OP DIAGNOSIS: Change in bowel habits TISSUE SUBMITTED: Random colon biopsies MICROSCOPIC DIAGNOSIS Colon, random biopsy: Fragments of colonic mucosa with pigment laden macrophages consistent with melanosis coli. SJ:nav 08/25/19 MICROSCOPIC DESCRIPTION Slides are reviewed. GROSS DESCRIPTION Received in fixative is one container labeled with the patient's name and designated random colon biopsy. The specimen consists of multiple irregular fragments of light fraire soft tissue that in aggregate measure 1.2 x 0.5 x 0.1 cm. The specimen is totally submitted in one cassette. / AM:nav 08/23/19 TC:5 CPT: 96140
--- NOTE | 2019-08-23 08:33 | OP.COLON_ITS ---
Patient Name: Cady Berumen Procedure Date: 08/23/2019 8:04 AM Date of : 1945 Age: 73 Procedure: Colonoscopy Indications: Change in bowel habits Providers: Gene Estrella MD Referring MD: Chaitanya Estrella Iii Medicines: See the Anesthesia note for documentation of the administered medications Patient Profile: Last Colonoscopy: October 2010. Complications: No immediate complications. Procedure: Pre-Anesthesia Assessment: - Prior to the procedure, a History and Physical was performed, and patient medications and allergies were reviewed. The patient's tolerance of previous anesthesia was also reviewed. The risks and benefits of the procedure and the sedation options and risks were discussed with the patient. All questions were answered, and informed consent was obtained. Prior Anticoagulants: The patient has taken no previous anticoagulant or antiplatelet agents. ASA Grade Assessment: II - A patient with mild systemic disease. After reviewing the risks and benefits, the patient was deemed in satisfactory condition to undergo the procedure. After I obtained informed consent, the scope was passed under direct vision. Throughout the procedure, the patient's blood pressure, pulse, and oxygen saturations were monitored continuously. The colonoscope was introduced through the anus and advanced to the cecum, identified by appendiceal orifice and ileocecal valve. The colonoscopy was performed without difficulty. The patient tolerated the procedure well. The quality of the bowel preparation was good. The ileocecal valve was photographed. Scope In: 8:09:34 AM Scope Withdrawal Time 0 hours 9 minutes 11 seconds Scope Out: 8:28:33 AM Total Procedure Duration Time 0 hours 18 minutes 59 seconds Findings: Hemorrhoids were found on perianal exam. Scattered diverticula were found in the sigmoid colon. The colon (entire examined portion) was moderately tortuous. Advancing the scope required using manual pressure. Biopsies for histology were taken with a cold forceps from the entire colon for evaluation of microscopic colitis. Impression: - Hemorrhoids found on perianal exam. - Diverticulosis in the sigmoid colon. - Tortuous colon. Biopsied. Recommendation: - Discharge patient to home. - Resume previous diet. - Continue present medications. - Repeat colonoscopy is not recommended due to current age (66 years or older) per protocol. - Telephone my office for pathology results in 1 week. Procedure Code(s): --- Professional --- 26152, Colonoscopy, flexible; with biopsy, single or multiple Diagnosis Code(s): --- Professional --- K64.9, Unspecified hemorrhoids R19.4, Change in bowel habit K57.30, Diverticulosis of large intestine without perforation or abscess without bleeding Q43.8, Other specified congenital malformations of intestine CPT copyright 2017 [employer]. All rights reserved. The codes documented in this report are preliminary and upon winch driver review may be revised to meet current compliance requirements. Gene Estrella MD 08/23/2019 8:33:21 AM This report has been signed electronically. Number of Addenda: 0 Note Initiated On: 08/23/2019 8:04 AM
[2019-08-23 08:34] VITALS: BP 123/65; BP 152/59; PULSE 66; RESP 18; TEMP 36.4; O2SAT 100
[2019-08-23 08:40] VITALS: BP 114/94; BP 152/59; PULSE 75; RESP 18; O2SAT 100
[2019-08-23 08:45] VITALS: BP 133/62; BP 152/59; PULSE 65; RESP 18; O2SAT 100
[2019-08-23 08:51] VITALS: BP 123/52; BP 152/59; PULSE 66; RESP 18; TEMP 36.6; O2SAT 100
[2019-08-23 08:54] VITALS: BP 152/59
== END 2019-08-23 09:24 | disposition home or self-care (01) ==
LOC: EN 06:53 → AC 06:54
PROVIDERS: Family Provider Family Medicine; PCP Family Medicine; Referring Provider Family Medicine; Visit Provider Surgery
PROC: 0DJD8ZZ Inspection of Lower Intestinal Tract, Via Natural or Artificial Opening Endoscopic (ICD-10-PCS; CPT 45378; principal; 2019-08-23 07:55)
DX: K57.30 Diverticulosis of large intestine without perforation or abscess without bleeding (principal); K64.9 Unspecified hemorrhoids; J45.909 Unspecified asthma, uncomplicated; I10 Essential (primary) hypertension; M19.90 Unspecified osteoarthritis, unspecified site; Z79.51 Long term (current) use of inhaled steroids; Z79.899 Other long term (current) drug therapy
CPT/HCPCS: 45380; 88305; J7120; J2405

== ENCOUNTER → 2020-01-23 12:42 | Outpatient (CLI) | payer BC, SELFPAY ==
[2020-01-23 12:37] VITALS: BMI 24.7
--- NOTE | 2020-01-23 12:42 | RAD_ITS ---
STUDY: X-RAY - LUMBAR SPINE REASON FOR EXAM: Female, 74 years old. LOW BACK AND RIGHT HIP PAIN TECHNIQUE: 5 view(s) of the lumbar spine were obtained. COMPARISON: None FINDINGS: Normal lumbar lordosis. There is no substantial scoliosis. There is a normal alignment of the vertebrae. There is multilevel endplate spondylosis of the lumbar vertebrae. There is multi-level degenerative disc disease with multi-level disc space narrowing. There is no demonstrated fracture. There is atherosclerotic calcification of the abdominal aorta without a demonstrated aneurysm. RAD/L/S Spine Min 4 Views IMPRESSION: Degenerative changes of the spine, as detailed above. Electronically Signed: Hector Guzman MD at 17:32 EDT , Service support ,
--- NOTE | 2020-01-23 12:42 | RAD_ITS ---
STUDY: X-RAY - PELVIS AND RIGHT HIP REASON FOR EXAM: Female, 74 years old. RIGHT HIP PAIN WITHOUT INJURY TECHNIQUE: 3 views of the pelvis and hip. COMPARISON: None. FINDINGS: There is a non-specific bowel gas pattern. Normal visualized soft tissue structures. There is diffuse demineralization of the osseous structures. There is narrowing with cortical sclerosis and osteophyte formation of the sacroiliac joint consistent with degenerative osteoarthritic changes. Normal bilateral superior and inferior pubic rami. Normal pubic symphysis. Normal bilateral ischial tuberosities. Normal visualized femoral head. Normal acetabulum. There is mild articular joint space narrowing of the hip. RAD/HIP, UNI W/ Pelvis 2-3 Views IMPRESSION: Age consistent degenerative changes, no acute findings Electronically Signed: Hector Guzman MD at 17:31 EDT , Service support ,
== END ==
PROVIDERS: PCP Family Medicine; Referring Provider Physician Assistant; Visit Provider Physician Assistant
DX: M54.9 Dorsalgia, unspecified (principal)
CPT/HCPCS: 72110; 73502

== ENCOUNTER → 2020-01-25 12:41 | Outpatient (CLI) | payer BC, SELFPAY ==
[2020-01-23 12:37] VITALS: BMI 24.7
--- NOTE | 2020-01-25 12:42 | MRI_ITS ---
STUDY: MRI LUMBAR SPINE WITHOUT CONTRAST REASON FOR EXAM: Female, 74 years old. pain/ radicular; LBP, RT HIP PAIN TECHNIQUE: Standardized fat and water weighted pulse sequences were obtained in the sagittal and axial planes. COMPARISON: Lumbar spine x-ray dated August 24, 2019 FINDINGS: No compression deformity or fracture line or bone marrow edema is present. No aggressive process is seen. Normal lumbar lordosis. There is no substantial scoliosis. Normal conus medullaris that terminates at the T12-L1 level. Disc desiccation is present at all levels. L1-2: Normal endplates. Normal disc height and morphology. Normal bilateral facet joints. Normal central canal and bilateral lateral recesses. Normal bilateral intervertebral neural foramina. L2-3: Normal endplates. Normal disc height and morphology. Normal bilateral facet joints. Normal central canal and bilateral lateral recesses. Normal bilateral intervertebral neural foramina. L3-4: Normal endplates. Mild posterior disc space narrowing is present without significant bulging or herniation. Anterolisthesis of L3 on L4 of 2 to 3 mm is present. Mild central canal stenosis is demonstrated secondary to mild to moderate facet joint and ligament of flava hypertrophy. Normal bilateral facet joints. Normal central canal and bilateral lateral recesses. Normal bilateral intervertebral neural foramina. L4-5: Normal endplates. Mild disc space narrowing and diffuse disc bulging is present. Normal bilateral facet joints. Normal central canal. Bilateral lateral recess stenosis without nerve root compression is present. Normal bilateral intervertebral neural foramina. L5-S1: Normal endplates. Mild posterior disc space narrowing is present resulting in a broad-based is herniation as well as a superimposed midline and right paracentral 1 cm disc protrusion causing right lateral recess stenosis and compression of descending nerve root. Normal central canal and left lateral recess. The right facet joint is mildly degenerated. Normal bilateral intervertebral neural foramina. Normal visualized sacral ala. Normal visualized paraspinous soft tissue structures. MRI/Spine Lumbar (Routine) IMPRESSION: 1. Multilevel degenerative changes, as described above. 2. 1 cm disc protrusion eccentric to the right at L5-S1 causing right lateral recess stenosis and nerve root compression. Electronically Signed: Campos Lees MD at 14:49 EDT , Service support ,
== END ==
PROVIDERS: PCP Family Medicine; Referring Provider Physician Assistant; Visit Provider Physician Assistant
DX: M43.10 Spondylolisthesis, site unspecified (principal)
CPT/HCPCS: 72148

== ENCOUNTER 2020-07-18 15:00 | Outpatient (RCR) | payer BC, SELFPAY ==
[2020-01-23 12:37] VITALS: BMI 24.7
--- NOTE | 2020-01-31 13:02 | HP.PTEVAL ---
Patient's Visit Information CROW BARTHOLOMEW is a 74 year old F referred to Physical Therapy by JEANNIE Villanueva with a diagnosis of DDD of lumbar spine, R sided radiculopathy. Date of Evaluation: 01/27/20 Physical Therapist: Barron White DPT - Visit Plan Frequency: 2-3x /Week Duration: 4-6 Weeks Plan: Start with flexion based motions to calm symptoms. Add in further lumbar ROM without increase in symptoms. Add core stability exercises once pain is minimal. May use modalities as needed. - Subjective Pt. is here today for her initial evaluation with lumbar DDD and RLE radiculopathy. Pt. reports having incrased pain for several weeks, but has become much worse since Saturday 01/20. Pt. reports seeing her chiro which had been helping, but the next day had increased pain down her RLE. Pt. reports pain that increases to her R knee. Pt. reports increased pain with stting and standing. Difficulty sleeping, tends to roll side to side. Pt. has N/T down her RLE as well. No changes in B/B and no changes in urinary retention. Pt. reports having an MRI showin cm disc protrusion eccentric to the right at L5-S1 causing right lateral recess stenosis and nerve root compression. pt. has not being doing any exercises secondary to pain. Pt. is hopeful to reduce her symptoms. - Pain lumbar spine Pain Intensity (Out of 10): 2 Pain Intensity Range: 0, 6 R hip Pain Intensity (Out of 10): 4 Pain Intensity Range: 0, 6 - Objective POSTURE: Pt. has slight fwrd flexed posture, slight R lateral lean. Normal ilisc crest hieghts. PALPATION: Pt. has tenderness at L4-S1 with hypomobility noted. Pt. has tenderness at R erector spinea and R gluteal region. No pain at R piriformis. NEURO: Pt. has normal sensation of BLEs. Pt. has normal DTR of BLEs. ROM: LUMBAR SPINE: flexion nil loss (mild incrase NW with return), extension- mod/max loss increase in pain, SB min/nil loss Bilat icnrease NW, rotation min loss bilat NE. Pt. has normal hip ROM bilaterally without increase in symptoms. MMT: Pt. has 4+/5 strength throughout BLEs no myotomal weakness noted. Core strength- poor. GAIT: Pt. has antalgic pattern druing R stance phase. Pt. has fwrd flexed posture with slight R lateral lean. Improved with increaese in gait. STAIRS: Pt. has increased pain during R stance phase with asending and descending, uses BHR to complete. - Special Tests L/S Slump test left side: Negative L/S Slump test right side: Positive L/S Left Straight Leg Raise: Negative L/S Right Straight Leg Raise: Negative Lumbar Standing: Flexion - Mechanical Response: No effect Lumbar Standing: Flexion - Symptoms During Testing: No effect Lumbar Standing: Flexion - Symptoms After Testing: No effect Lumbar Standing: Extension - Mechanical Response: No effect Lumbar Standing: Extension - Symptoms During Testing: Increases Lumbar Standing: Extension - Symptoms After Testing: No worse Lumbar Standing: Right Side Glides - Mechanical Response: No effect Lumbar Standing: Right Side [place] - Symptoms During Testing: No effect Lumbar Standing: Right Side [place] - Symptoms After Testing: No effect Lumbar Standing: Left Side [place] - Mechanical Response: No effect Lumbar Standing: Left Side [place] - Symptoms During Testing: No effect Lumbar Standing: Left Side [place] - Symptoms After Testing: No effect Lumbar Lying: Flexion - Mechanical Response: No effect Lumbar Lying: Flexion - Symptoms During Testing: Decreases Lumbar Lying: Flexion - Symptoms After Testing: Better Lumbar Lying: Extension - Mechanical Response: No effect Lumbar Lying: Extension - Symptoms During Testing: Increases Lumbar Lying: Extension - Symptoms After Testing: Worse R Hip Scour: Negative R Hip Quadrant - Intraarticular Pathology: Negative R Hip DANIEL - Intraarticular Pathology: Negative R Hip FADDIR - Labrum: Negative R Hip Impingement Provocation - Labrum: Negative - Goals Goal 1:: LTG: PT. to be I with HEP. Goal Time Frame: 4-6 Weeks Goal 2:: STG: Pt. to be able to walk household distances without increase in symptoms. Goal Time Frame: 2-4 Weeks Goal 3:: LTG: Pt. to ambulate community level distances without increase in symptoms. Goal Time Frame: 4-6 Weeks Goal 4:: LTG: Pt. to have increased BLE and core strenght increased by 1/2 grade of all effected musculature. Goal Time Frame: 4-6 Weeks Goal 5:: LTG: Pt. to have increased lumbar ROM by 25% in all directions without increase in symptoms. Goal Time Frame: 4-6 Weeks Goal 6:: LTG: Pt. to complete all ADLs and taking care of her disabled without increase in symptoms. Goal Time Frame: 4-6 Weeks - Rehabilitation Potential Physical Therapy Diagnosis: Pt. has signs and symptoms consistent with DDD of lumbar spine with RLE radiculopathy to knee level. Pt. reprots minimal pain in sitting, increased pain with walking and trunk extension. Pt. has signs consistent wit her MRI of R sided nerve root compression. Pt. responeded welll wtih flexion currently with her symptoms being irritable and acute. I will start to progress into extension once symptoms reduce. Rehabilitation Potential: Good - Anticipated Interventions Patient/Client Instruction: Educate patient on: Condition, Plan of Care, Risk Factors, Benefits of Fitness Program For the Purpose of:: To improve decision making, To facilitate caregiver knowledge, To improve self management, To prevent re-injury, To improve ability to perform tasks related to life management, To improve tolerance to ADL's Therapeutic Exercise to Include: Strength training, Power training, Balance training, Coordination, Postural training, Flexibilty training, Passive ROM, Active ROM, Dynamic Lumbar Stabilization, Jessica Exercises For the Purpose of:: To decrease pain, To decrease swelling/inflammation, To increase ROM, To improve nutrient delivery to tissue, To increase oxygenation perfusion, To improve muscle performance and motor function, To improve ability to perform ADL's, To increase tolerance to activity/condition/position, To improve performance and independence with ADL's, To decrease level of supervision to perform tasks, To improve ability of physical actions for home/community/work/leisure, To improve gait and locomotor functions, To improve health of tissue, To decrease soft tissue restriction, To increase flexibility/ROM Manual Therapy Techniques to Include: Mobilization, Passive ROM, Functional dry needling, Soft tissue mobilization For the Purpose of:: To decrease pain, To decrease swelling/inflammation, To increase ROM, To improve nutrient delivery to tissue Cryotherapy (ice pack, ice massage): Yes Thermo therapy (hot pack): Yes Ultrasound (thermal/non thermal): Yes Pelvic traction supine: Yes For the Purpose of:: To decrease pain, To decrease swelling/inflammation, To increase ROM, To improve nutrient delivery to tissue, To increase oxygenation perfusion, To improve muscle performance and motor function, To improve ability to perform ADL's, To increase tolerance to activity/condition/position Thank you for the opportunity to evaluate your patient. For Medicare and Medicare HMO plans, please review the plan of care and approve it. It will need to be FAXED BACK to us at [phone] for Medicare purposes. For Medicare only, by signing this I certify the plan of care. Please let me know if there are questions or concerns regarding this plan of care. Physician Signature: Date:
--- NOTE | 2020-02-23 07:59 | HP.PTREVAL ---
JEANNIE Villanueva, It has been my pleasure to treat CROW BARTHOLOMEW over the last 6 visits for DDD of lumbar spine, R sided radiculopathy. Please see the progress note below for an update on the physical therapy plan of care! Subjective: Pt. reports I have had a much better week. Pt. reports being HEP compliant. Objective/Function: Pt. reports no pain post PT. PT. did have some pain with attempts of prone press, central at lumbar spine. Pt. did not want to work into this ranage. Pt. did well with addition back to core strengthening as well. Cont. to progress into extension progression and core stability exercises. LUMBAR ROM: flexion nil loss, ext min/mod loss decrease better, SB nill loss NE, rotation nil/min loss NE. MMT: BLES 4+/5 NE, core strength- fair-. GAIT: Pt. has sway back posture, and gaureded movements with gait. IMproved since last visit. Plan Plan: COnt. to progress slowly with extension and add in core stability. Use US to R gluteal range. Goals Goal 1:: LTG: PT. to be I with HEP. Goal Time Frame: 4-6 Weeks Goal Progress: Progressing Goal 2:: STG: Pt. to be able to walk household distances without increase in symptoms. Goal Time Frame: 2-4 Weeks Goal Progress: Progressing Goal 3:: LTG: Pt. to ambulate community level distances without increase in symptoms. Goal Time Frame: 4-6 Weeks Goal Progress: Progressing Goal 4:: LTG: Pt. to have increased BLE and core strenght increased by 1/2 grade of all effected musculature. Goal Time Frame: 4-6 Weeks Goal Progress: Progressing Goal 5:: LTG: Pt. to have increased lumbar ROM by 25% in all directions without increase in symptoms. Goal Time Frame: 4-6 Weeks Goal Progress: Progressing Goal 6:: LTG: Pt. to complete all ADLs and taking care of her disabled without increase in symptoms. Goal Time Frame: 4-6 Weeks Goal Progress: Progressing Anticipated Interventions Patient/Client Instruction: Educate patient on: Condition, Plan of Care, Risk Factors, Benefits of Fitness Program For the Purpose of:: To improve decision making, To facilitate caregiver knowledge, To improve self management, To prevent re-injury, To improve ability to perform tasks related to life management, To improve tolerance to ADL's Therapeutic Exercise to Include: Strength training, Power training, Balance training, Coordination, Postural training, Flexibilty training, Passive ROM, Active ROM, Dynamic Lumbar Stabilization, Jessica Exercises For the Purpose of:: To decrease pain, To decrease swelling/inflammation, To increase ROM, To improve nutrient delivery to tissue, To increase oxygenation perfusion, To improve muscle performance and motor function, To improve ability to perform ADL's, To increase tolerance to activity/condition/position, To improve performance and independence with ADL's, To decrease level of supervision to perform tasks, To improve ability of physical actions for home/community/work/leisure, To improve gait and locomotor functions, To improve health of tissue, To decrease soft tissue restriction, To increase flexibility/ROM Manual Therapy Techniques to Include: Mobilization, Passive ROM, Functional dry needling, Soft tissue mobilization For the Purpose of:: To decrease pain, To decrease swelling/inflammation, To increase ROM, To improve nutrient delivery to tissue Cryotherapy (ice pack, ice massage): Yes Thermo therapy (hot pack): Yes Ultrasound (thermal/non thermal): Yes Pelvic traction supine: Yes For the Purpose of:: To decrease pain, To decrease swelling/inflammation, To increase ROM, To improve nutrient delivery to tissue, To increase oxygenation perfusion, To improve muscle performance and motor function, To improve ability to perform ADL's, To increase tolerance to activity/condition/position Please do not hesitate to contact me at [phone] by phone or if you have questions or concerns regarding this new plan of care! Sincerely, Barron White DPT
--- NOTE | 2020-05-22 12:01 | HP.PTREVAL ---
JEANNIE Villanueva, It has been my pleasure to treat CROW BARTHOLOMEW over the last 13 visits for DDD of lumbar spine, R sided radiculopathy. Please see the progress note below for an update on the physical therapy plan of care! Subjective: Pt. arrived today with increased low back pain after having to alter the way she has been sleeping after having an ulcer on her R leg. Pt. reports she is going to have to have surgery on her medial ankle at some point unsure of exact date. To have cervical spine MRI later this week. Objective/Function: Pt. toelrated all exercises and re assessment this date. lumbar ROM: flexion mod loss increase NW, exten min loss increase NW, SB min loss NE bilat, rotation min loss increase NW bilat. Pt. has fair core strength. BLEs 4+/5 throughout. 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 Pt. tolerated piriformis stretching, but has to be gentle. Pt. is also experiencing increased cervical and L UE pain. 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 She is having an MRI on her neck later this week and is pending R ankle surgery for her wound. Plan Plan: Pt. is making some slow progress. She most recently is having increased low back pain and R hip pain after having to sleep in akward positions due to R leg pain and R leg wound. I plan to continue to see her weekly workion on exercises to progress stability and use of US to calm symptoms. Goals Goal 1:: LTG: PT. to be I with HEP. Goal Time Frame: 4-6 Weeks Goal Progress: Progressing Goal 2:: STG: Pt. to be able to walk household distances without increase in symptoms. Goal Time Frame: 2-4 Weeks Goal Progress: Goal Met Goal 3:: LTG: Pt. to ambulate community level distances without increase in symptoms. Goal Time Frame: 4-6 Weeks Goal Progress: Progressing Goal 4:: LTG: Pt. to have increased BLE and core strenght increased by 1/2 grade of all effected musculature. Goal Time Frame: 4-6 Weeks Goal Progress: Progressing Goal 5:: LTG: Pt. to have increased lumbar ROM by 25% in all directions without increase in symptoms. Goal Time Frame: 4-6 Weeks Goal Progress: Progressing Goal 6:: LTG: Pt. to complete all ADLs and taking care of her disabled without increase in symptoms. Goal Time Frame: 4-6 Weeks Goal Progress: Goal Met Anticipated Interventions Patient/Client Instruction: Educate patient on: Condition, Plan of Care, Risk Factors, Benefits of Fitness Program For the Purpose of:: To improve decision making, To facilitate caregiver knowledge, To improve self management, To prevent re-injury, To improve ability to perform tasks related to life management, To improve tolerance to ADL's Therapeutic Exercise to Include: Strength training, Power training, Balance training, Coordination, Postural training, Flexibilty training, Passive ROM, Active ROM, Dynamic Lumbar Stabilization, Jessica Exercises For the Purpose of:: To decrease pain, To decrease swelling/inflammation, To increase ROM, To improve nutrient delivery to tissue, To increase oxygenation perfusion, To improve muscle performance and motor function, To improve ability to perform ADL's, To increase tolerance to activity/condition/position, To improve performance and independence with ADL's, To decrease level of supervision to perform tasks, To improve ability of physical actions for home/community/work/leisure, To improve gait and locomotor functions, To improve health of tissue, To decrease soft tissue restriction, To increase flexibility/ROM Manual Therapy Techniques to Include: Mobilization, Passive ROM, Functional dry needling, Soft tissue mobilization For the Purpose of:: To decrease pain, To decrease swelling/inflammation, To increase ROM, To improve nutrient delivery to tissue Cryotherapy (ice pack, ice massage): Yes Thermo therapy (hot pack): Yes Ultrasound (thermal/non thermal): Yes Pelvic traction supine: Yes For the Purpose of:: To decrease pain, To decrease swelling/inflammation, To increase ROM, To improve nutrient delivery to tissue, To increase oxygenation perfusion, To improve muscle performance and motor function, To improve ability to perform ADL's, To increase tolerance to activity/condition/position Please do not hesitate to contact me at [phone] by phone or if you have questions or concerns regarding this new plan of care! Sincerely, Barron White DPT
--- NOTE | 2020-06-18 10:41 | HP.PTREVAL ---
JEANNIE Villanueva, It has been my pleasure to treat CROW BARTHOLOMEW over the last 16 visits for DDD of lumbar spine, R sided radiculopathy. Please see the progress note below for an update on the physical therapy plan of care! Subjective: Pt. had her foot surgery and reports she is doing well,but did have a lot of back and leg pain after suergery. Pt. reports increased symptoms for ~3 days post surgery. Pt. reports just getting back to all exercises yesterday. Objective/Function: Pt. tolerated Pt well. Pt. was encouraged to continue to work back into her exercises. Pt. has increased sensitivity at L side of thoracic spine and still has pain and R gluteal /SI region. Pt. continues to have benefit with slight extension positioning and with core stability exercises. She has recently reduced working, lookd after two young children, and is now less active. She also recently went through a surgery for a venous wound on her ankle. I would like her to get back to some core stability exercises as tolerated. I also want her to work on trunk stability exerices, as I guide her. Pt. reported relief with exercises and with US this date. Plan Plan: Cont. with current plan. I am extending her POC x1 per week for another 4 weeks. Pt. has Goals Goal 1:: LTG: PT. to be I with HEP. Goal Time Frame: 4-6 Weeks Goal Progress: Progressing Goal 2:: STG: Pt. to be able to walk household distances without increase in symptoms. Goal Time Frame: 2-4 Weeks Goal Progress: Goal Met Goal 3:: LTG: Pt. to ambulate community level distances without increase in symptoms. Goal Time Frame: 4-6 Weeks Goal Progress: Progressing Goal 4:: LTG: Pt. to have increased BLE and core strenght increased by 1/2 grade of all effected musculature. Goal Time Frame: 4-6 Weeks Goal Progress: Progressing Goal 5:: LTG: Pt. to have increased lumbar ROM by 25% in all directions without increase in symptoms. Goal Time Frame: 4-6 Weeks Goal Progress: Progressing Goal 6:: LTG: Pt. to complete all ADLs and taking care of her disabled without increase in symptoms. Goal Time Frame: 4-6 Weeks Goal Progress: Goal Met Anticipated Interventions Patient/Client Instruction: Educate patient on: Condition, Plan of Care, Risk Factors, Benefits of Fitness Program For the Purpose of:: To improve decision making, To facilitate caregiver knowledge, To improve self management, To prevent re-injury, To improve ability to perform tasks related to life management, To improve tolerance to ADL's Therapeutic Exercise to Include: Strength training, Power training, Balance training, Coordination, Postural training, Flexibilty training, Passive ROM, Active ROM, Dynamic Lumbar Stabilization, Jessica Exercises For the Purpose of:: To decrease pain, To decrease swelling/inflammation, To increase ROM, To improve nutrient delivery to tissue, To increase oxygenation perfusion, To improve muscle performance and motor function, To improve ability to perform ADL's, To increase tolerance to activity/condition/position, To improve performance and independence with ADL's, To decrease level of supervision to perform tasks, To improve ability of physical actions for home/community/work/leisure, To improve gait and locomotor functions, To improve health of tissue, To decrease soft tissue restriction, To increase flexibility/ROM Manual Therapy Techniques to Include: Mobilization, Passive ROM, Functional dry needling, Soft tissue mobilization For the Purpose of:: To decrease pain, To decrease swelling/inflammation, To increase ROM, To improve nutrient delivery to tissue Cryotherapy (ice pack, ice massage): Yes Thermo therapy (hot pack): Yes Ultrasound (thermal/non thermal): Yes Pelvic traction supine: Yes For the Purpose of:: To decrease pain, To decrease swelling/inflammation, To increase ROM, To improve nutrient delivery to tissue, To increase oxygenation perfusion, To improve muscle performance and motor function, To improve ability to perform ADL's, To increase tolerance to activity/condition/position Please do not hesitate to contact me at [phone] by phone or if you have questions or concerns regarding this new plan of care! Sincerely, Barron White DPT
== END 2020-07-18 19:00 | disposition home or self-care (01) ==
LOC: PT 15:00
PROVIDERS: PCP Family Medicine; Referring Provider Physician Assistant; Visit Provider Physician Assistant
DX: M51.16 Intervertebral disc disorders with radiculopathy, lumbar region (principal)
CPT/HCPCS: 97012; 97035; 97110; 97161; 97164

== ENCOUNTER → 2020-08-03 09:32 | Outpatient (CLI) | payer BC, SELFPAY ==
[2020-08-01 13:57] VITALS: BMI 24.5
[2020-08-03 08:39] VITALS: BMI 24.5
--- NOTE | 2020-08-03 09:33 | MRI_ITS ---
STUDY: MRI LUMBAR SPINE WITHOUT CONTRAST REASON FOR EXAM: Female, 74 years old. increased R hip pain, NO NEW INJURY TECHNIQUE: Standardized fat and water weighted pulse sequences were obtained in the sagittal and axial planes. COMPARISON: 01/25/2020 FINDINGS: Lumbar lordosis slightly exaggerated. No significant scoliosis. Conus medullaris terminates normally at the L1 level. No acute fracture. No acute dislocation. No acute bone destruction. Paraspinal muscle atrophy. Sacrum intact. Normal aorta. Normal retroperitoneum. T12-L1: Normal endplates. Normal disc height, hydration and morphology. Normal bilateral facet joints. Normal central canal and bilateral lateral recesses. Normal bilateral intervertebral neural foramina. L1-2: Normal endplates. Minimal disc desiccation. Normal bilateral facet joints. Normal central canal and bilateral lateral recesses. Normal bilateral intervertebral neural foramina. L2-3: Normal endplates. Shallow disc bulge. Facet joint arthrosis. Normal central canal and bilateral lateral recesses. Mild neural foraminal narrowing without impingement. L3-4: Normal endplates. Disc bulge/uncovering with moderate central canal narrowing. Facet joint arthrosis. Bilateral lateral recess narrowing with early contact of the descending nerve roots. Mild neural foraminal narrowing without impingement. Grade 1 spondylolisthesis. L4-5: Normal endplates. Disc bulge with mild central canal narrowing. Facet joint arthrosis. Left lateral recess narrowing without impingement. Mild neural foraminal narrowing without impingement. L5-S1: Normal endplates. Central disc protrusion with minimal central canal narrowing. Facet joint arthrosis. Normal bilateral lateral recesses. Mild neural foraminal narrowing without impingement. MRI/Spine Lumbar (Routine) IMPRESSION: Multilevel intervertebral disc disease with central canal narrowing most severe at L3-4 Multilevel neural foraminal narrowing without impingement Lateral recess narrowing with contact of the descending L4 nerve roots Exaggerated lordosis with lower lumbar facet joint arthrosis Electronically Signed: Ousmane Munguia DO at 12:19 EST Tel , Service support ,
== END ==
PROVIDERS: PCP Family Medicine; Referring Provider Orthopaedic Surgery; Visit Provider Orthopaedic Surgery
DX: M51.16 Intervertebral disc disorders with radiculopathy, lumbar region (principal); M51.27 Other intervertebral disc displacement, lumbosacral region
CPT/HCPCS: 72148

== ENCOUNTER → 2021-03-13 10:56 | Outpatient (CLI) | payer BC, SELFPAY | PROVIDERS: PCP Physician Assistant; Referring Provider Internal Medicine Cardiovascular Disease; Visit Provider Internal Medicine Cardiovascular Disease | DX: I47.1 Supraventricular tachycardia (principal); I49.9 Cardiac arrhythmia, unspecified | CPT/HCPCS: 93225; 93226 ==

== ENCOUNTER 2021-04-09 09:18 | Outpatient (RCR) | payer BC, MEDICARE, SELFPAY ==
[2021-03-21 09:13] VITALS: BMI 24.5
[2021-03-29 10:44] LABS: International Normalized Ratio 1.2; Prothrombin Time (Protime)PT. 14.3 SECONDS (11.7-14.9)
[2021-04-02 11:11] LABS: International Normalized Ratio 1.6; Prothrombin Time (Protime)PT. 17.9 SECONDS (11.7-14.9)
[2021-04-09 10:22] LABS: International Normalized Ratio 2.1; Prothrombin Time (Protime)PT. 22.8 SECONDS (11.7-14.9)
== END 2021-04-09 18:00 | disposition home or self-care (01) ==
LOC: LAB 09:18
PROVIDERS: PCP Physician Assistant; Referring Provider Nurse Practitioner Family; Visit Provider Nurse Practitioner Family
DX: I48.0 Paroxysmal atrial fibrillation (principal); Z79.01 Long term (current) use of 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
CPT/HCPCS: 36415; 85610

== ENCOUNTER 2021-05-21 08:51 | Outpatient (RCR) | payer BC, SELFPAY ==
[2021-04-23 19:42] VITALS: BMI 24.5
[2021-05-07 10:09] LABS: International Normalized Ratio 1.6; Prothrombin Time (Protime)PT. 18.7 SECONDS (11.7-14.9)
[2021-05-14 10:25] LABS: International Normalized Ratio 1.8; Prothrombin Time (Protime)PT. 20.1 SECONDS (11.7-14.9)
[2021-05-21 09:45] LABS: International Normalized Ratio 1.8; Prothrombin Time (Protime)PT. 19.7 SECONDS (11.7-14.9)
== END 2021-05-21 18:00 | disposition home or self-care (01) ==
LOC: LAB 08:51
PROVIDERS: PCP Physician Assistant; Referring Provider Nurse Practitioner Family; Visit Provider Nurse Practitioner Family
DX: I48.0 Paroxysmal atrial fibrillation (principal); Z79.01 Long term (current) use of 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
CPT/HCPCS: 36415; 85610

== ENCOUNTER 2021-06-11 10:50 | Outpatient (RCR) | payer BC, SELFPAY ==
[2021-05-23 18:28] VITALS: BMI 24.5
[2021-05-28 11:43] LABS: International Normalized Ratio 1.6; Prothrombin Time (Protime)PT. 18.4 SECONDS (11.7-14.9)
[2021-06-04 12:16] LABS: International Normalized Ratio 1.6; Prothrombin Time (Protime)PT. 18.2 SECONDS (11.7-14.9)
[2021-06-11 11:54] LABS: International Normalized Ratio 1.9; Prothrombin Time (Protime)PT. 20.6 SECONDS (11.7-14.9)
== END 2021-06-23 03:21 | disposition home or self-care (01) ==
LOC: LAB 10:50
PROVIDERS: PCP Physician Assistant; Referring Provider Nurse Practitioner Family; Visit Provider Nurse Practitioner Family
DX: I48.0 Paroxysmal atrial fibrillation (principal); Z79.01 Long term (current) use of 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
CPT/HCPCS: 36415; 85610

== ENCOUNTER 2021-07-16 14:10 | Outpatient (RCR) | payer BC, SELFPAY ==
[2021-06-23 03:21] VITALS: BMI 24.5
[2021-06-25 11:58] LABS: International Normalized Ratio 2.2; Prothrombin Time (Protime)PT. 23.7 SECONDS (11.7-14.9)
[2021-07-16 15:38] LABS: International Normalized Ratio 2.4; Prothrombin Time (Protime)PT. 25.6 SECONDS (11.7-14.9)
== END 2021-07-23 18:00 | disposition home or self-care (01) ==
LOC: LAB 14:10
PROVIDERS: PCP Physician Assistant; Referring Provider Nurse Practitioner Family; Visit Provider Nurse Practitioner Family
DX: I48.0 Paroxysmal atrial fibrillation (principal); Z79.01 Long term (current) use of 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
CPT/HCPCS: 36415; 85610

== ENCOUNTER 2021-08-21 10:12 | Outpatient (RCR) | payer BC, SELFPAY ==
[2021-07-24 02:00] VITALS: BMI 24.5
[2021-08-09 10:10] LABS: International Normalized Ratio 1.7; Prothrombin Time (Protime)PT. 19.1 SECONDS (11.7-14.9)
[2021-08-21 11:22] LABS: International Normalized Ratio 1.9; Prothrombin Time (Protime)PT. 21.4 SECONDS (11.7-14.9)
== END 2021-08-24 18:00 | disposition home or self-care (01) ==
LOC: LAB 10:12
PROVIDERS: PCP Physician Assistant; Referring Provider Nurse Practitioner Family; Visit Provider Nurse Practitioner Family
DX: I48.0 Paroxysmal atrial fibrillation (principal); Z79.01 Long term (current) use of 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
CPT/HCPCS: 36415; 85610

== ENCOUNTER 2021-08-28 11:18 | Outpatient (RCR) | payer BC, SELFPAY ==
[2021-08-25 03:36] VITALS: BMI 24.5
[2021-08-28 12:55] LABS: International Normalized Ratio 2.9; Prothrombin Time (Protime)PT. 29.2 SECONDS (11.7-14.9)
== END 2021-09-23 18:00 | disposition home or self-care (01) ==
LOC: LAB 11:18
PROVIDERS: PCP Physician Assistant; Referring Provider Nurse Practitioner Family; Visit Provider Nurse Practitioner Family
DX: I48.0 Paroxysmal atrial fibrillation (principal); Z79.01 Long term (current) use of 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
CPT/HCPCS: 36415; 85610

== ENCOUNTER 2021-09-25 09:21 | Outpatient (RCR) | payer BC, SELFPAY ==
[2021-09-23 22:10] VITALS: BMI 24.5
[2021-09-25 10:30] LABS: International Normalized Ratio 2.2; Prothrombin Time (Protime)PT. 23.9 SECONDS (11.7-14.9)
== END 2021-09-25 18:00 | disposition home or self-care (01) ==
LOC: LAB 09:21
PROVIDERS: PCP Physician Assistant; Referring Provider Nurse Practitioner Family; Visit Provider Nurse Practitioner Family
DX: I48.0 Paroxysmal atrial fibrillation (principal); Z79.01 Long term (current) use of 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
CPT/HCPCS: 36415; 85610

== ENCOUNTER 2021-10-08 15:09 | Outpatient (CLI) | payer BC, SELFPAY ==
[2021-10-10 19:07] LABS: QNTFERON TB Mitogen Value > 10.00 IU/mL (.); QNTFERON TB Nil Value 0.08 IU/mL (.); QNTFERON TB1+ Ag Value 0.07 IU/mL (.)
[2021-10-10 20:35] LABS: QNTIFERON TB Positive Criteria Negative (Negative)
== END 2021-10-08 23:59 | disposition home or self-care (01) ==
PROVIDERS: PCP Physician Assistant; Visit Provider Physician Assistant
DX: Z11.1 Encounter for screening for respiratory tuberculosis (principal)
CPT/HCPCS: 36415; 86480

== ENCOUNTER 2021-10-16 11:00 | Outpatient (RCR) | payer BC, SELFPAY ==
--- NOTE | 2021-09-20 08:28 | HP.PTEVAL_ITS ---
Patient's Visit Information CROW BARTHOLOMEW is a 75 year old F referred to Physical Therapy by JEANNIE Pires with a diagnosis of R knee pain, R sided vestibular neuritis. Date of Evaluation: 09/13/21 Physical Therapist: Barron White DPT - Visit Plan Frequency: 2x /Week Duration: 4 Weeks Plan: Start with BLE strengthening in [place], progressing to [place]C. Progress HEP as able. Add in seated VOR exercises, progress to standing and then to increased environmental input as tolerated. - Subjective Pt. is here today for her initial evaluation with diagnosis of R knee pain and vestibular neuritis. Pt. reports having increased R knee pain for the past month or so. Pt. denies N/T and no mech of injury. She reports she has been lackluster on her exercises recently with a lot of home time constraints. Pt. also reports having a history of vestibular neuritis which also seems to be increasing over the past few months. She reports no bruising in her knee, but has been having increased medial knee pain. Increases with walking and standing, but is intermittent. Pt. has issues with stairs as well. She has this week started do some of her exercises again which seem to be helpful. She had previously done some vestibular exercises which have been helpful, but is in search of more now that her symptoms seem to be intensifying. Pt. is hopeful to get back to all activities without limitations in order to better assist with taking care of her who has MS and get back to some recreational activities without limitations. Pt. does have peripheral artery disease with decreased healing in distal LE, history of decreased wound healing and ulcers. Pt. has history of SI dysfunction as well. - Pain R knee Pain Intensity (Out of 10): 2 Pain Intensity Range: 0, 5 Comment: medial aspect - Objective POSTURE: Pt. has decent posture in stance. Normal knee positioning, normal SHAMAR. Pt. has slight FH posture with rounded shoulders. Difficulty correcting. PALPATION: Pt. has mild increase in medial joint line pain of R knee. No HS pain, no patellar pain noted. Pt. has no tenderness throughout neck or SCM bilaterally. NEURO: pt. has decreased sensation in BLEs. Pt. has normal DTR of BLEs both patellar and Achillies bilaterally. Pt. is able to rise on heal and toes without issues. Pt. has normal eye tracking horizontal and vertical. Pt. has normal saccades. She does have slight issues with VOR testing. Worsens in stance and worst with standing with multiple outside interactions. Suggesting hypofunction. ROM: Pt. has normal ROM of BLEs including ankles and knees. Pt. has normal HS length and hip flexor length. MMT: LLE: ankle 5/5 throughout; knee ext 5-/5, flexion 5-/5; hip; flexion 4+/5, abd 4/5, ext 4/5. RLE: ankle 5/5 throughout; knee ext 4+/5, flexion 4+/5; hip; flexion 4+/5, abd 4/5, ext 4/5. Core strength: poor+. GAIT: Pt. has normal gait pattern. Pt. has slight antalgic pattern during R stance with descending stairs. - Balance/Special Test Scores Functional Gait Assessment Score: 21 % Disability: 30.0000 Lower Extremity Functional Score: 56 - Goals Goal 1:: LTG: Pt. to be I with VOR and LE strengthening exercises. Goal Time Frame: 2-4 Weeks Goal 2:: LTG: Pt. to have increased RLE strength to at least 5-/5 throughout. Goal Time Frame: 4-6 Weeks Goal 3:: STG: Pt. to have decrease pain with walking and stairs in her R knee allowing for increased quality of life. Goal Time Frame: 2-4 Weeks Goal 4:: LTG: Pt. to resume all of her work out routine without increase in symptoms. Goal Time Frame: 4-6 Weeks Goal 5:: LTG: Pt. to decrease dizziness with all walking, standing and being in community. Goal Time Frame: 4-6 Weeks - Rehabilitation Potential Physical Therapy Diagnosis: Pt. has signs and symptoms consistent with R knee pain, R sided vestibular neuritis. Pt. would benefit from PT to increase RLE strength and work on VOR exercises to increase her ability to compensate with h er other systems. Rehabilitation Potential: Excellent - Anticipated Interventions Patient/Client Instruction: Educate patient on: Condition, Plan of Care, Risk Factors, Benefits of Fitness Program For the Purpose of:: To improve decision making, To facilitate caregiver knowledge, To improve self management, To prevent re-injury, To improve ability to perform tasks related to life management Therapeutic Exercise to Include: Strength training, Power training, Endurance training, Balance training, Coordination, Body mechanics, Postural training, Flexibilty training, Passive ROM, Active ROM, Dynamic Lumbar Stabilization For the Purpose of:: To decrease pain, To increase ROM, To improve nutrient delivery to tissue, To increase oxygenation perfusion, To improve muscle performance and motor function, To improve ability to perform ADL's, To increase tolerance to activity/condition/position, To improve ability of physical actions for home/community/work/leisure, To improve gait and locomotor functions, To improve health of tissue, To decrease soft tissue restriction, To increase flexibility/ROM Manual Therapy Techniques to Include: Mobilization, Manipulation, Soft tissue mobilization For the Purpose of:: To decrease pain, To decrease swelling/inflammation, To increase ROM, To improve nutrient delivery to tissue Ultrasound (thermal/non thermal): Yes For the Purpose of:: To decrease pain, To decrease swelling/inflammation, To increase ROM Thank you for the opportunity to evaluate your patient. For Medicare and Medicare HMO plans, please review the plan of care and approve it. It will need to be FAXED BACK to us at [phone] for Medicare purposes. For Medicare only, by signing this I certify the plan of care. Please let me know if there are questions or concerns regarding this plan of care. Physician Signature: Date:
--- NOTE | 2021-10-17 07:23 | HP.PTREVAL_ITS ---
JEANNIE Pires, It has been my pleasure to treat CROW BARTHOLOMEW over the last 5 visits for R knee pain, R sided vestibular neuritis. Please see the progress note below for an update on the physical therapy plan of care! Subjective: Pt. reports overall doing well. She started gym exercises last week with good tolerance. Pt. reports no pain currently, but does have some If I move wrong. She has been consistent with her VOR exercises. Pt. reports being challenged with these as well. Objective/Function: Pt. did very well with testing today. TU.1 sec, FGA (still still has some difficulty with stairs and with narrow SHAMAR). Pt. is challenged with quick visual changes during dynamic mobility. She has been working on exercises to challenge these response as well. She does have some difficulty with descending step, very caution in nature (she is adding another handrail to stairs at home.). Pt. has good knee ROM and LE strength (RLE ankle 5/5 throughout; knee ext 5-/5, flexion 5/5; hip: flexion 5-/5, abd 4+/5, ext 5- /5). I talked to her about be consistent with both her vestibular exercises and LE strengthening. Pt. reports being I and okay with this plan. Plan Plan: Pt. to trial exercises on her own including gym exercises for 1 month. Re assessment with PT then to determine ability to self manage. Balance/Gait/Functional tests - Balance/Special Test Scores Functional Gait Assessment Score: 21 % Disability: 30.0000 Lower Extremity Functional Score: 61 Goals Goal 1:: LTG: Pt. to be I with VOR and LE strengthening exercises. Goal Time Frame: 2-4 Weeks Goal Progress: Goal Met Goal 2:: LTG: Pt. to have increased RLE strength to at least 5-/5 throughout. Goal Time Frame: 4-6 Weeks Goal Progress: Goal Met Goal 3:: STG: Pt. to have decrease pain with walking and stairs in her R knee allowing for increased quality of life. Goal Time Frame: 2-4 Weeks Goal Progress: Goal Met Goal 4:: LTG: Pt. to resume all of her work out routine without increase in symptoms. Goal Time Frame: 4-6 Weeks Goal Progress: Goal Met Goal 5:: LTG: Pt. to decrease dizziness with all walking, standing and being in community. Goal Time Frame: 4-6 Weeks Goal Progress: Goal Met Anticipated Interventions Patient/Client Instruction: Educate patient on: Condition, Plan of Care, Risk Factors, Benefits of Fitness Program For the Purpose of:: To improve decision making, To facilitate caregiver knowledge, To improve self management, To prevent re-injury, To improve ability to perform tasks related to life management Therapeutic Exercise to Include: Strength training, Power training, Endurance training, Balance training, Coordination, Body mechanics, Postural training, Flexibilty training, Passive ROM, Active ROM, Dynamic Lumbar Stabilization For the Purpose of:: To decrease pain, To increase ROM, To improve nutrient delivery to tissue, To increase oxygenation perfusion, To improve muscle performance and motor function, To improve ability to perform ADL's, To increase tolerance to activity/condition/position, To improve ability of physical actions for home/community/work/leisure, To improve gait and locomotor functions, To improve health of tissue, To decrease soft tissue restriction, To increase flexibility/ROM Manual Therapy Techniques to Include: Mobilization, Manipulation, Soft tissue mobilization For the Purpose of:: To decrease pain, To decrease swelling/inflammation, To increase ROM, To improve nutrient delivery to tissue Ultrasound (thermal/non thermal): Yes For the Purpose of:: To decrease pain, To decrease swelling/inflammation, To increase ROM Please do not hesitate to contact me at [phone] by phone or if you have questions or concerns regarding this new plan of care! Sincerely, Barron White DPT
== END 2021-10-16 19:00 | disposition home or self-care (01) ==
LOC: PT 11:00
PROVIDERS: PCP Physician Assistant; Referring Provider Physician Assistant; Visit Provider Physician Assistant
DX: M25.361 Other instability, right knee (principal); H81.21 Vestibular neuronitis, right ear
CPT/HCPCS: 97110; 97162; 97164; 97530

== ENCOUNTER 2021-11-19 10:40 | Outpatient (RCR) | payer BC, SELFPAY ==
[2021-10-22 09:04] VITALS: BMI 24.5
[2021-11-12 09:59] LABS: International Normalized Ratio 1.5; Prothrombin Time (Protime)PT. 17.6 SECONDS (11.7-14.9)
[2021-11-19 10:51] LABS: INR Fingerstick 1.9; Prothrombin Time Fingerstick 22.4 SEC (11.7-14.9)
[2023-06-16 12:27] LABS: International Normalized Ratio 2.4; Prothrombin Time (Protime)PT. 26.6 SECONDS (11.7-14.9)
== END 2021-11-21 18:00 | disposition home or self-care (01) ==
LOC: LAB 10:40
PROVIDERS: PCP Physician Assistant; Referring Provider Nurse Practitioner Family; Visit Provider Nurse Practitioner Family
DX: I48.0 Paroxysmal atrial fibrillation (principal); Z79.01 Long term (current) use of 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
CPT/HCPCS: 36415; 36416; 85610

== ENCOUNTER 2021-12-02 15:14 | Outpatient (RCR) | payer BC, SELFPAY ==
[2021-11-22 00:55] VITALS: BMI 24.5
[2021-12-02 16:14] LABS: International Normalized Ratio 2.1; Prothrombin Time (Protime)PT. 23.2 SECONDS (11.7-14.9)
== END 2021-12-02 18:00 | disposition home or self-care (01) ==
LOC: LAB 15:14
PROVIDERS: PCP Physician Assistant; Referring Provider Nurse Practitioner Family; Visit Provider Nurse Practitioner Family
DX: I48.0 Paroxysmal atrial fibrillation (principal); Z79.01 Long term (current) use of 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
CPT/HCPCS: 36415; 85610

== ENCOUNTER → 2021-12-18 | Outpatient (CLI) | payer BC, SELFPAY ==
--- NOTE | 2021-12-18 10:04 | STRESSREP ---
Stress Test Report Date: 12-18-2021 Procedure: Exercise tolerance test/imaging study Indications: Shortness of breath/dyspnea on exertion; paroxysmal atrial fibrillation Consent: Per the patient Procedure: The patient exercised on a Lopez protocol for 3 minutes and 38 seconds completing Stage I and 38 seconds of Stage II achieving a peak heart rate of 122 bpm (84% predicted maximal heart rate) with a peak blood pressure 132/82 mmHg and a peak MET capacity of 4 METs. The baseline ECG demonstrated sinus bradycardia. The peak exercise ECG demonstrated somatic/motion artifact with no obvious ECG changes. There were no cardiac dysrhythmias pretest, during exercise, or recovery. The functional capacity was considered decreased. There was no complaint of chest discomfort during exercise or recovery. The examination was discontinued secondary to dyspnea and fatigue. Impression: 1. Technically adequate (percent predicted maximal heart rate greater than 85%) exercise tolerance test 2. Peak exercise ECG somatic/motion artifact with no obvious ECG changes 3. There were no cardiac dysrhythmias pretest, during exercise, or recovery 4. Nuclear images pending Myocardial perfusion imaging study: Technique: The patient was injected with 11.5 mCi of technetium 99m Cardiolite and subsequently rest SPECT Cardiolite nuclear imaging was obtained in the horizontal long, vertical long, and short axis views. The patient exercised on a Lopez protocol for 3 minutes and 38 seconds completing Stage I and 38 seconds of Stage II achieving a peak heart rate of 122 bpm (84% predicted maximal heart rate) with a peak blood pressure 132/82 mmHg and a peak MET capacity of 4 METs. The patient was injected with 32.8 mCi of technetium 99m Cardiolite and subsequently stress SPECT Cardiolite nuclear imaging was obtained in the horizontal long, vertical long, and short axis views. A gated Cardiolite study at peak stress was obtained. Interpretation: Rest and stress SPECT Cardiolite nuclear imaging status post realignment, normalization, and attenuation correction, demonstrates the appearance of relative uniform tracer uptake and myocardial perfusion appearing within normal limits. There is end systolic thickening and brightening. The gated Cardiolite study demonstrates myocardial thickening and inward wall motion. The reported LVEF is 77%. Impression: 1. Rest and stress SPECT Cardiolite nuclear imaging demonstrate relative uniform tracer uptake and myocardial perfusion appearing within normal limits. 2. The gated Cardiolite study reports an LVEF of 77%. This note was generated with [employer] software. It may contain incorrect words, spelling, and punctuation that were not noted in checking the note before signing.
== END | disposition home or self-care (01) ==
LOC: CVS 06:48
PROVIDERS: PCP Physician Assistant; Visit Provider Internal Medicine Cardiovascular Disease
DX: I48.0 Paroxysmal atrial fibrillation (principal); I47.1 Supraventricular tachycardia; I10 Essential (primary) hypertension; R06.02 Shortness of breath
CPT/HCPCS: 78452; 93017; A9500; A4216

== ENCOUNTER 2022-01-02 10:25 | Outpatient (RCR) | payer BC, SELFPAY ==
[2021-12-22 02:39] VITALS: BMI 24.5
[2022-01-02 11:34] LABS: International Normalized Ratio 2.3; Prothrombin Time (Protime)PT. 24.6 SECONDS (11.7-14.9)
== END 2022-01-02 18:00 | disposition home or self-care (01) ==
LOC: LAB 10:25
PROVIDERS: Internal Medicine Cardiovascular Disease; PCP Physician Assistant; Referring Provider Nurse Practitioner Family; Visit Provider Nurse Practitioner Family
DX: I48.0 Paroxysmal atrial fibrillation (principal); Z79.01 Long term (current) use of 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
CPT/HCPCS: 36415; 85610

== ENCOUNTER 2022-01-05 05:34 | Emergency (ER) | payer BC, SELFPAY ==
[2022-01-05 05:35] VITALS: BP 182/89; PULSE 72; RESP 22; TEMP 35.7; O2SAT 97; BMI 27.3
--- NOTE | 2022-01-05 05:49 | EKG12_ITS ---
Test Reason : PALPS Blood Pressure : / mmHG Vent. Rate : 070 BPM Atrial Rate : 070 BPM P-R Int : 210 ms QRS Dur : 084 ms QT Int : 372 ms P-R-T Axes : 069 -09 058 degrees QTc Int : 401 ms Sinus rhythm with 1st degree A-V block Otherwise normal ECG Confirmed by ANGELA BAILEY, HERMAN ([id number]), film or videotape editor MEGAN GUTIERREZ ([id number]) on 01/06/2022 1:45:37 PM Referred By: PL Confirmed By:HERMAN MILLER MD
--- NOTE | 2022-01-05 05:52 | EDS_ITS ---
HPI History of Present Illness Chief Complaint: Palpitations Informant: patient Narrative Narrative: Patient presents with concern for palpitations. Patient evidently has had multiple different atrial dysrhythmias including intermittent atrial fibrillation. She knows her heart rate goes above 65 when she gets a dry mouth or dry nose. She got up at 130 this morning just to go to the bathroom. She noticed her mouth was dry. Therefore, she used her blood pressure cuff to check her blood pressure and heart rate. It had a symbol that her heart was irregular. Her first heart rate was 77. She stated that this is severely high for her. Her normal low heart rate is 55. Her normal high heart rate is about 62. She states if she goes over 67 she has a lot of problems. I am not sure what these problems are. Heart rate over 70 is abnormal. She did take a metoprolol at home that she uses for situations like this. But she states oftentimes if she takes metoprolol her heart will go into the 40s. She is not having dyspnea. No diaphoresis nausea or vomiting. She has had some chest pain from where she had a fall recently (see below). However this did not change with the symptoms and there is no anterior chest pain. She has not been feeling ill recently. She does not feel ill now. Patient also had a mechanical slip and fall when pushing a box into her house on . She bumped her knees that are not hurting. She also fell forward and hit the right side of her chest on the ground. It has been sore locally ever since. She did call her physician's office who recommended she hold her Coumadin for a few days. Therefore she has not taken it since this happened All her other medications have remained the same. At no time has the patient been syncopal or near syncopal. [facility] Medical History Asthma Atrial tachycardia (10/14/18) Change in bowel habit Chronic venous insufficiency Essential (primary) hypertension Glaucoma care home (current) use of 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 Near syncope PRAMOD (obstructive sleep apnea) Osteoarthritis Osteopenia Paroxysmal atrial fibrillation Shortness of breath Varicose vein of leg Vestibular neuritis Home Medications cholecalciferol (vitamin D3) 1,000 unit PO BID 03/10/16 [History Last Taken Unknown] latanoprost 1 drp EACH EYE QHS 03/10/16 [History Last Taken Unknown] coenzyme Q10 30 mg PO DAILY 06/07/19 [History Last Taken Unknown] prasterone (dhea) 25 mg capsule 15 mg PO DAILY 07/27/20 [History Last Taken Unknown] metoprolol tartrate 25 mg tablet 25 mg PO DAILY PRN #30 tab 06/26/21 [Rx Last Taken Unknown] timolol 0.25 % eye drops 1 drp OPHTHALMIC (EYE) BID 12/02/21 [History Last Taken Unknown] warfarin 5 mg tablet 5 mg PO .COMPLEX #135 tab 12/20/21 [Rx Last Taken Unknown] Allergy/AdvReac Type Severity Reaction Status Date / Time cat dander Allergy Mild congestion Verified 01/05/22 05:38 grass pollen Allergy Mild Cough, Verified 01/05/22 05:38 rhinitis house dust Allergy Mild Cough, Verified 01/05/22 05:38 rhinitis mold Allergy Mild Cough, Verified 01/05/22 05:38 rhinitis tree and shrub pollen Allergy Mild Cough, Verified 01/05/22 05:38 rhinitis Sulfa (Sulfonamide Allergy Itching Verified 01/05/22 05:38 Antibiotics) losartan AdvReac Severe dizziness, Verified 01/05/22 05:38 severe amlodipine AdvReac Intermediate dizziness Verified 01/05/22 05:38 lisinopril AdvReac Intermediate Nagging Verified 01/05/22 05:38 dry cough Benzodiazepines AdvReac Other Verified 01/05/22 05:38 diazepam [From Valium] AdvReac Other Verified 01/05/22 05:38 Family History Father Myocardial infarction from [place] age 61 Heart disease Diabetes Sister Breast cancer Surgical History History of carpal tunnel release History of cataract surgery History of tonsillectomy history TMJ surgery history vein surgery S/P excision of Ramos's neuroma Social History household members: spouse housing: house Smoking Status: Never smoker alcohol intake: current alcohol intake frequency: a few times a month substance use type: does not use what type of physical activity do you participate in: none do you feel safe at home: Yes ROS ROS ED Constitutional Constitutional ED: Denies chills, fever(s) or sweats Eyes Eyes: Denies blurry vision or diplopia ENT ENT ED: Reports other Details: Dry mouth and nose sensation as in history of present illness. ; Denies rhinorrhea or sore throat Cardiovascular Cardiovascular: Reports palpitations, racing heartbeat and other Details: Heartbeat has been racing. However, the highest heart rate that she got on her home monitor was 77. She did bring in a list of approximately 15-20 blood pressure and heart rate checks since about 130 this morning. All of these are essentially within normal limits. Patient has chest pain in the right lower area where she hit the ground. But this did not occur with her events tonight. She has no change or new pain with her heart rate changes tonight. ; Denies chest pain Respiratory/Chest Respiratory/Chest: Denies dyspnea Gastrointestinal Gastrointestinal: Reports abdominal pain; Denies nausea or vomiting Genitourinary Genitourinary ED: Denies dysuria Musculoskeletal Musculoskeletal: Denies back pain or neck pain Integumentary Denies rash Neurologic Neurologic: Denies headache(s), paresthesias or weakness Endocrine Endocrinology: Denies polydipsia or polyuria Allergic/Immunologic Allergic/Immunologic ED: Denies mouth swelling or urticaria EXAM Physical Exam Const Vital Signs: 01/05/22 05:35 Temperature 96.2 F L Temperature Source Temporal Pulse Rate 72 Respiratory Rate 22 H Blood Pressure 182/89 H Blood Pressure Mean 120 Pulse Ox 97 Oxygen Delivery Method Room Air Positive well nourished and well developed General Appearance ED: well developed and NAD; Negative for cyanotic or diaphoretic HEENT Reports moist mucous membranes Negative for trauma or tenderness Eyes General Eye ED: Negative for pale conjunctiva or scleral icterus Neck no JVD Chest Wall inspection of chest normal Resp normal respiratory effort and clear to auscultation bilaterally Resp Narrative: Patient does have some mild right-sided chest wall tenderness. But there is no subcutaneous air. No bruising at this time. No rales rhonchi or wheezes. Effort and Inspection: pain with movement Auscultation: Negative for rales, rhonchi or wheezes Cardio regular rate, regular rhythm and no murmurs Rate: other Other Details: Heart is regular. I hear no murmur. On the monitor, she has a normal sinus rhythm with a rate of about 70. I see no PVCs or PACs. No sign of atrial fibrillation. She does appear to have a slight first-degree AV block. GI normal to inspection, nondistended, normoactive bowel sounds and non-tender Palpation: soft Back/Spine no CVA tenderness Extremity normal to inspection General Extremety ED: Negative for edema or tenderness General Extremity: Negative for edema Neuro oriented x3 Sensorium / Orientation: alert Skin no rashes or lesions noted MDM MDM MDM Narrative Medical decision making narrative: Patient's blood work shows normal CBC including platelets white count and hemoglobin. Electrolytes are overall unremarkable. Troponin is negative despite over 4 hours of intermittent palpitations. Her INR is low at 1.3 but this was suspected as she had stopped it after her fall on . Chest x-ray and rib films do show a fourth rib fracture. But no sign of pulmonary contusion or pneumothorax. I rechecked the patient. She feels well. Her heart rate is down to 58-62 which she states is her normal. Her normal runs 55-62 or 3. She feels well and would like to go home. We discussed reasons to return. We also discussed care of her rib. She feels that Tylenol is fine for pain. Even with these fractures she was shoveling in the garden yesterday. Lab Data Attestation: I reviewed the patient's lab results. Labs: Laboratory Results - last 24 hr 01/05/22 01/05/22 01/05/22 06:00 06:00 06:00 WBC 5.8 RBC 4.06 L Hgb 12.8 Hct 40.8 MCV 100.5 H MCH 31.5 MCHC 31.4 L RDW Std Deviation 49.3 H RDW Coeff of Dulce 13.2 Plt Count 188 MPV 12.2 H Immature Gran % (Auto) 0.200 Neut % (Auto) 43.4 L Lymph % (Auto) 29.8 King[place]isher % (Auto) 12.2 H Eos % (Auto) 13.4 H Baso % (Auto) 1.0 Absolute Neuts (auto) 2.5 Absolute Lymphs (auto) 1.74 Nucleated RBC % 0 PT Cancelled INR Cancelled Sodium 142 Potassium 4.1 Chloride 110 H Carbon Dioxide 30.0 Anion Gap 2 L BUN 21 H Creatinine 0.84 Estim Creat Clear Calc 51.27 Est GFR (MDRD) Af Amer 85 Est GFR (MDRD) Non-Af 71 BUN/Creatinine Ratio 25.1 H Glucose 97 Calcium 9.2 Troponin I High Sens 5 01/05/22 06:40 WBC RBC Hgb Hct MCV MCH MCHC RDW Std Deviation RDW Coeff of Dulce Plt Count MPV Immature Gran % (Auto) Neut % (Auto) Lymph % (Auto) [place]isher % (Auto) Eos % (Auto) Baso % (Auto) Absolute Neuts (auto) Absolute Lymphs (auto) Nucleated RBC % PT 16.0 H INR 1.3 Sodium Potassium Chloride Carbon Dioxide Anion Gap BUN Creatinine Estim Creat Clear Calc Est GFR (MDRD) Af Amer Est GFR (MDRD) Non-Af BUN/Creatinine Ratio Glucose Calcium Troponin I High Sens Radiography Diagnostic Testing: Clinical Impression(s) from Imaging Studies Ribs w/Chest X-Ray 01/05/22 06:20 IMPRESSION: RIBS: Findings suspicious for acute fracture of the anterior right fourth rib, as noted on one view only. CHEST: No pulmonary contusion, pneumothorax or hemothorax identified. Electronically Signed: Ramana Sigala MD at 6:53 EDT , EKG Initial EKG: Comments: EKG done for palpitations read by me shows a normal sinus rhythm with first-degree AV block. Overall rate of 70. No ventricular or supraventricular ectopy. No acute ST elevation or depression. PA interval is long. QRS duration and QTC are normal Discharge Plan Triage Chief Complaint: Palpitations ED Provider: James Jones Dx/Rx/DC Orders Clinical Impression: Heart palpitations, Fall from slip, trip, or stumble, Rib pain on right side Instructions: ED Rib Fracture, ED Palpitations Prescriptions: No Action prasterone (dhea) [DHEA] 25 mg capsule 15 mg PO DAILY RF: 0 timolol 0.25 % drops 1 drp ophthalmic (eye) BID RF: 0 latanoprost 1 DROP bottle 1 drp EACH EYE QHS RF: 0 cholecalciferol (vitamin D3) 1,000 UNIT tablet 1,000 unit PO BID RF: 0 coenzyme Q10 50 MG tablet,chewable 30 mg PO DAILY RF: 0 metoprolol tartrate 25 mg tablet 25 mg PO DAILY PRN (Reason: PRN for palpitations, tachycardia) Qty: 30 RF: 3 warfarin 5 mg tablet 5 mg PO .COMPLEX Qty: 135 RF: 4 Primary Care Provider: Elizabeth Dale Referrals: Elizabeth Dale, PA [Primary Care Provider] - Disposition Disposition: Home, Self Care
[2022-01-05 06:10] LABS: Absolute Lymphocyte Count 1.74 X10^3/uL (0.83-4.51); Absolute Neutrophil Count 2.5 X10^3/uL (2.0-7.7); Basophil# 0.06 X10^3/uL; Eosinophil# 0.78 X10^3/uL; Eosinophils% 13.4 % (0-5); Hematocrit 40.8 % (37-47); Hemoglobin 12.8 g/dL (12.0-15.0); Lymphocyte # 1.74 X10^3/ul (0.83-4.51); Lymphocyte % 29.8 % (19-41); Mean Corp Hgb Conc 31.4 g/dL (32-36); Mean Corpuscular Hgb 31.5 pg (27.0-32.0); Mean Corpuscular Volume 100.5 fL (81-99); Mean Platelet Vol. 12.2 fl (6.2-12.0); Monocyte# 0.71 X10^3/uL; Monocyte% 12.2 % (0-10); NRBC Flagged by Analyzer 0 % (0-5); Neutrophil # 2.54 X10^3/uL (2.7-7.7); Neutrophil % 43.4 % (47-70); Platelet Count 188 K/mm3 (150-450); RBC Distribution Width CV 13.2 % (11.6-14.6); RBC Distribution Width SD 49.3 fl (35.1-43.9); Red Blood Count 4.06 M/mm3 (4.2-5.4); White Blood Count 5.8 K/mm3 (4.4-11.0)
--- NOTE | 2022-01-05 06:20 | RAD_ITS ---
STUDY: X-RAY - UNILATERAL RIBS ( RIGHT ) WITH CHEST REASON FOR EXAM: Female, 76 years old. trauma TECHNIQUE - RIBS: 4 view(s) of the right ribs. TECHNIQUE - CHEST: Single PA view. COMPARISON: Chest radiographs of 06/07/2019. FINDINGS -RIGHT RIBS The AP oblique view of the upper ribs shows possible discontinuity of the cortex of the anterior right fourth rib. Correlate with clinical history. No other findings suspicious for acute right rib fracture identified. FINDINGS-CHEST The lungs are clear and expanded. There is no demonstrated pleural abnormality. Heart size remains mildly enlarged, without pulmonary venous hypertension. There is stable pruning of peripheral pulmonary vascular markings, consistent with pulmonary emphysema. Thoracic aorta remains minimally elongated and calcific. No mediastinal widening. Vascular calcification noted within the neck. There is no demonstrated abnormality of the visualized soft tissue structures of the upper abdomen. RAD/Ribs Uni Min 3V w/PA Chest IMPRESSION: RIBS: Findings suspicious for acute fracture of the anterior right fourth rib, as noted on one view only. CHEST: No pulmonary contusion, pneumothorax or hemothorax identified. Electronically Signed: Ramana Sigala MD at 6:53 EDT ,
[2022-01-05 06:29] LABS: Anion Gap 2 (5-15); BUN 21 mg/dL (7-18); BUN/Creat Ratio 25.1 RATIO (10-20); Calcium,Total 9.2 mg/dL (8.5-10.1); Chloride 110 mmol/L (98-107); Creatinine, Serum 0.84 mg/dL (0.55-1.02); EST Glomerular Filtration Rate 71 mL/min (>60); Est Glom Filt Rate - Afr Amer 85 mL/min (>60); Estimated Creatinine Clearance 51.27 ml/min; Glucose 97 mg/dL (74-106); Potassium 4.1 mmol/L (3.5-5.1); Sodium Level 142 mmol/L (136-145); Troponin-I HS 5 pg/mL (3.0-54.0)
[2022-01-05 07:01] LABS: International Normalized Ratio 1.3
[2022-01-05 07:14] VITALS: BP 123/75; PULSE 58; RESP 14; TEMP 36.3; O2SAT 98
== END 2022-01-05 07:37 | disposition home or self-care (01) ==
PROVIDERS: Emergency Provider Emergency Medicine; PCP Physician Assistant; Visit Provider Emergency Medicine
DX: R00.2 Palpitations (principal); I48.91 Unspecified atrial fibrillation; I48.0 Paroxysmal atrial fibrillation; I10 Essential (primary) hypertension; S22.39XA Fracture of one rib, unspecified side, initial encounter for closed fracture; I44.0 Atrioventricular block, first degree; G47.33 Obstructive sleep apnea (adult) (pediatric); Z79.01 Long term (current) use of 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; I87.2 Venous insufficiency (chronic) (peripheral); W19.XXXA Unspecified fall, initial encounter; Y92.019 Unspecified place in single-family (private) house as the place of occurrence of the external cause
CPT/HCPCS: 71101; 80048; 84484; 85025; 85610; 93005; 99284; A4216

== ENCOUNTER 2022-01-22 13:40 | Outpatient (RCR) | payer BC, SELFPAY ==
[2022-01-21 20:14] VITALS: BMI 24.5
[2022-01-22 15:38] LABS: International Normalized Ratio 2.5; Prothrombin Time (Protime)PT. 26.2 SECONDS (11.7-14.9)
== END 2022-01-22 23:59 | disposition home or self-care (01) ==
LOC: LAB 13:40
PROVIDERS: PCP Physician Assistant; Referring Provider Nurse Practitioner Family; Visit Provider Nurse Practitioner Family
DX: I48.0 Paroxysmal atrial fibrillation (principal); Z79.01 Long term (current) use of 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
CPT/HCPCS: 36415; 85610

== ENCOUNTER 2022-02-27 10:44 | Outpatient (RCR) | payer BC, SELFPAY ==
[2022-02-21 06:42] VITALS: BMI 24.5
[2022-02-27 11:55] LABS: International Normalized Ratio 2.6; Prothrombin Time (Protime)PT. 27.6 SECONDS (11.7-14.9)
== END 2022-03-23 01:58 | disposition home or self-care (01) ==
LOC: LAB 10:44
PROVIDERS: PCP Physician Assistant; Referring Provider Nurse Practitioner Family; Visit Provider Nurse Practitioner Family
DX: I48.0 Paroxysmal atrial fibrillation (principal); Z79.01 Long term (current) use of 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
CPT/HCPCS: 36415; 85610

== ENCOUNTER 2022-04-02 11:40 | Outpatient (RCR) | payer BC, SELFPAY ==
[2022-03-23 01:58] VITALS: BMI 24.5
[2022-04-02 12:49] LABS: International Normalized Ratio 2.1; Prothrombin Time (Protime)PT. 22.8 SECONDS (11.7-14.9)
== END 2022-04-02 18:00 | disposition home or self-care (01) ==
LOC: LAB 11:40
PROVIDERS: PCP Physician Assistant; Referring Provider Nurse Practitioner Family; Visit Provider Nurse Practitioner Family
DX: I48.0 Paroxysmal atrial fibrillation (principal); Z79.01 Long term (current) use of 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
CPT/HCPCS: 36415; 85610

== ENCOUNTER 2022-05-02 11:11 | Outpatient (RCR) | payer BC, SELFPAY ==
[2022-04-23 22:22] VITALS: BMI 24.5
[2022-05-02 12:00] LABS: International Normalized Ratio 2.2
== END 2022-05-02 18:00 | disposition home or self-care (01) ==
LOC: LAB 11:11
PROVIDERS: Internal Medicine Cardiovascular Disease; PCP Physician Assistant; Referring Provider Nurse Practitioner Family; Visit Provider Nurse Practitioner Family
DX: I48.0 Paroxysmal atrial fibrillation (principal); Z79.01 Long term (current) use of 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
CPT/HCPCS: 36415; 85610

== ENCOUNTER 2022-06-04 13:28 | Outpatient (RCR) | payer BC, SELFPAY ==
[2022-05-23 19:37] VITALS: BMI 24.5
[2022-06-04 15:48] LABS: International Normalized Ratio 2.2; Prothrombin Time (Protime)PT. 24.4 SECONDS (11.7-14.9)
== END 2022-06-04 18:00 | disposition home or self-care (01) ==
LOC: LAB 13:28
PROVIDERS: PCP Physician Assistant; Referring Provider Nurse Practitioner Family; Visit Provider Nurse Practitioner Family
DX: I48.0 Paroxysmal atrial fibrillation (principal); Z79.01 Long term (current) use of 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
CPT/HCPCS: 36415; 85610

== ENCOUNTER 2022-07-23 11:35 | Outpatient (RCR) | payer BC, SELFPAY ==
[2022-06-24 09:58] VITALS: BMI 24.5
[2022-07-23 12:25] LABS: International Normalized Ratio 2.5; Prothrombin Time (Protime)PT. 26.8 SECONDS (11.7-14.9)
== END 2022-07-23 18:00 | disposition home or self-care (01) ==
LOC: LAB 11:35
PROVIDERS: PCP Physician Assistant; Referring Provider Nurse Practitioner Family; Visit Provider Nurse Practitioner Family
DX: I48.0 Paroxysmal atrial fibrillation (principal); Z79.01 Long term (current) use of 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
CPT/HCPCS: 36415; 85610

== ENCOUNTER 2022-08-20 15:30 | Outpatient (RCR) | payer BC, SELFPAY ==
[2022-07-23 22:39] VITALS: BMI 24.5
[2022-08-20 16:52] LABS: International Normalized Ratio 2.6; Prothrombin Time (Protime)PT. 27.4 SECONDS (11.7-14.9)
== END 2022-08-20 18:00 | disposition home or self-care (01) ==
LOC: LAB 15:30
PROVIDERS: PCP Physician Assistant; Referring Provider Nurse Practitioner Family; Visit Provider Nurse Practitioner Family
DX: I48.0 Paroxysmal atrial fibrillation (principal); Z79.01 Long term (current) use of 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
CPT/HCPCS: 36415; 85610

== ENCOUNTER 2022-09-08 11:29 | Emergency (ER) | payer BC, SELFPAY ==
[2022-09-08] VITALS (8 sets, daily range): BP systolic 97–139; BP diastolic 57–92; PULSE 63–120; RESP 14–20; TEMP 37–37.7; O2SAT 94–97; BMI 25.0
--- NOTE | 2022-09-08 11:38 | EKG12_ITS ---
Test Reason : PALPS Blood Pressure : / mmHG Vent. Rate : 123 BPM Atrial Rate : 000 BPM P-R Int : 000 ms QRS Dur : 082 ms QT Int : 284 ms P-R-T Axes : 000 -10 038 degrees QTc Int : 406 ms Atrial fibrillation with rapid ventricular response Nonspecific ST abnormality Abnormal ECG Confirmed by DOMINGO BAILEY, AIDE ([id number]), editor index MEGAN GUTIERREZ ([id number]) on 09/09/2022 9:41:54 AM Referred By: INNA Confirmed By:AIDE LANE MD
--- NOTE | 2022-09-08 11:55 | EDS_ITS ---
HPI History of Present Illness Chief Complaint: Palpitations Detail of Chief Complaint: Palpitations and dyspnea Informant: patient Narrative Narrative: Patient presents to the emergency department with complaint of concern for A. fib and feeling short of breath. Patient states that she is had COVID symptoms that started 5 or 6 days ago. Patient took a home COVID test that was +2 days ago and went to urgent care yesterday and had a positive test as well. Patient woke up with fevers and chills this morning and started having significant coughing. Patient also states that her watch lets her know when she has dysrhythmia and she has had heart rates up to 115. She denies chest pain other than when she coughs. Patient is on Coumadin and she did take that this morning because she forgot to take it last night. Patient has history of paroxysmal A. fib. 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 Near syncope PRAMOD (obstructive sleep apnea) Osteoarthritis Osteopenia Paroxysmal atrial fibrillation Shortness of breath Varicose vein of leg Vestibular neuritis Home Medications cholecalciferol (vitamin D3) 25 mcg (1,000 unit) tablet 1,000 unit PO BID vitamin 03/10/16 [History Last Taken Unknown] latanoprost 0.005 % eye drops 1 drp EACH EYE [facility] eye health 03/10/16 [History Last Taken Unknown] coenzyme Q10 50 mg chewable tablet 30 mg PO DAILY 06/07/19 [History Last Taken Unknown] prasterone (dhea) 25 mg capsule (DHEA) 15 mg PO DAILY 07/27/20 [History Last Taken Unknown] metoprolol tartrate 25 mg tablet 25 mg PO DAILY PRN PRN for palpitations, tachycardia #30 tabs 06/26/21 [Rx Last Taken Unknown] timolol 0.25 % eye drops 1 drp ophthalmic (eye) BID 12/02/21 [History Last Taken Unknown] warfarin 5 mg tablet 5 mg PO .COMPLEX #135 tabs 12/20/21 [Rx Last Taken Unknown] Allergy/AdvReac Type Severity Reaction Status Date / Time cat dander Allergy Mild congestion Verified 09/08/22 11:30 grass pollen Allergy Mild Cough, Verified 09/08/22 11:30 rhinitis house dust Allergy Mild Cough, Verified 09/08/22 11:30 rhinitis mold Allergy Mild Cough, Verified 09/08/22 11:30 rhinitis tree and shrub pollen Allergy Mild Cough, Verified 09/08/22 11:30 rhinitis Sulfa (Sulfonamide Allergy Itching Verified 09/08/22 11:30 Antibiotics) losartan AdvReac Severe dizziness, Verified 09/08/22 11:30 severe amlodipine AdvReac Intermediate dizziness Verified 09/08/22 11:30 lisinopril AdvReac Intermediate Nagging Verified 09/08/22 11:30 dry cough Benzodiazepines AdvReac Other Verified 09/08/22 11:30 diazepam [From Valium] AdvReac Other Verified 09/08/22 11:30 Family History Father Myocardial infarction from [place] age 61 Heart disease Diabetes Sister Breast cancer Surgical History History of carpal tunnel release History of cataract surgery History of tonsillectomy history TMJ surgery history vein surgery S/P excision of Ramos's neuroma Social History household members: spouse housing: house Smoking Status: Never smoker alcohol intake: current alcohol intake frequency: a few times a month substance use type: does not use what type of physical activity do you participate in: none do you feel safe at home: Yes ROS ROS ED Review of Systems ROS Unobtainable: other Constitutional Constitutional ED: Reports chills, fever(s) and lethargy; Denies sweats or weight loss Eyes Eyes: Denies blurry vision, change in vision or diplopia ENT ENT ED: Denies rhinorrhea or sore throat Cardiovascular Cardiovascular: Reports palpitations and racing heartbeat; Denies chest pain or orthopnea Respiratory/Chest Respiratory/Chest: Reports cough, dyspnea and dyspnea on exertion; Denies orthopnea or sputum Gastrointestinal Gastrointestinal: Denies abdominal pain, diarrhea, nausea or vomiting Genitourinary Genitourinary ED: Denies dysuria, hematuria or urinary frequency Musculoskeletal Musculoskeletal: Denies arthralgias, back pain, myalgias or neck pain Integumentary Denies abscess, Abrasions or rash Neurologic Neurologic: Denies headache(s) or weakness Psychiatric Psychiatric: Denies anxiety, depression or suicidal thoughts Endocrine Endocrinology: Denies polydipsia, polyphagia or polyuria Hematologic/Lymphatic Hematologic/Lymphatic: Denies easy bleeding, easy bruising or lymphadenopathy Allergic/Immunologic Allergic/Immunologic ED: Denies mouth swelling, tongue swelling or urticaria EXAM Physical Exam Const Vital Signs: 09/08/22 11:31 09/08/22 11:41 09/08/22 11:41 Temperature 98.6 F 98.6 F 98.6 F Temperature Source Temporal Oral Oral Pulse Rate 105 H 120 H 115 H Respiratory Rate 18 20 H 17 Respiratory Effort Respiratory Depth Respiratory Pattern Blood Pressure 117/65 139/78 H 139/78 H Blood Pressure Mean 82 98 98 Pulse Ox 96 97 97 Oxygen Delivery Method Room Air Room Air Room Air 09/08/22 11:46 09/08/22 12:09 09/08/22 12:56 Temperature Temperature Source Pulse Rate 98 108 H Respiratory Rate 19 H 15 Respiratory Effort Short of Breath Labored Respiratory Depth Normal Respiratory Pattern Normal Blood Pressure 114/72 125/92 H Blood Pressure Mean 86 103 Pulse Ox 94 97 Oxygen Delivery Method Room Air Room Air Room Air 09/08/22 13:05 09/08/22 13:05 09/08/22 13:16 Temperature 99.8 F H 99.8 F H Temperature Source Oral Oral Pulse Rate 68 63 66 Respiratory Rate 20 H 18 17 Respiratory Effort Respiratory Depth Respiratory Pattern Blood Pressure 97/57 L 97/57 L 104/61 Blood Pressure Mean 70 70 75 Pulse Ox 95 94 95 Oxygen Delivery Method Room Air Room Air Room Air Positive well nourished and well developed General Appearance ED: well developed and NAD HEENT Reports TM's clear and moist mucous membranes normocephalic and atraumatic; Negative for trauma or tenderness Tympanic Membrane ED: Yes TM's clear Eyes PERRL and EOMs intact bilaterally General Eye ED: Negative for pale conjunctiva or scleral icterus Neck no lymphadenopathy, supple and no JVD General: Negative for tenderness Chest Wall inspection of chest normal and palpation of chest normal Chest: Negative for tenderness Resp normal respiratory effort and clear to auscultation bilaterally Effort and Inspection: Negative for respiratory distress or pain with movement Auscultation: Negative for rhonchi, wheezes or diminished lung sounds Cardio S1 normal heart sound, S2 normal heart sound and no murmurs Rate: tachycardic Rhythm: abnormal rhythm irregularly irregular Peripheral Pulses: pulses 2+ throughout GI normal to inspection, nondistended, normoactive bowel sounds, soft to palpation, non-tender, non-distended and no masses Back/Spine no CVA tenderness and no thoracic nor lumbar tenderness Extremity normal to inspection General Extremety ED: Negative for edema General Extremity: Negative for edema Neuro oriented x3, CN's II-XII intact bilaterally, no sensory deficits noted and gait normal Sensorium / Orientation: awake, alert, oriented to person, oriented to place and oriented to time Motor Exam: strength 5/5 throughout and strength abnormal Psych mental status grossly normal Skin no rashes or lesions noted and no wounds MDM MDM MDM Narrative Medical decision making narrative: Line established on arrival. Patient placed on youth nutritional monitor. Patient was noted to be in atrial fibrillation with a ventricular rate in the 120s. Patient had an EKG on arrival that showed atrial fibrillation with a ventricular rate of [address] changes. CBC with differential showed a depressed white blood cell count of 2.9 which is consistent with COVID infection. INR was 1.6. Chemistries unremarkable. Troponin was 8. While in the department she received carted them 20 mg IV bolus. On repeat examination at 1330 she is now in a sinus rhythm on telemetry with heart rate in the 60s.. Chest x-ray was unremarkable. I discussed case with patient's rackman Dr. Angel Simmons who recommended patient follow-up with her primary care physician or their of [facility] as needed. At this time patient does not meet criteria for admission for her COVID as she is not hypoxic. Oral antiviral not appropriate at this time as she has been with symptoms for over 5 days. Patient advised to return if increasing shortness of breath. She is advised to use a pulse oximeter to monitor her O2 saturations and return if pulse ox drops below 90%. Lab Data Attestation: I reviewed the patient's lab results. Labs: Laboratory Results - last 24 hr 09/08/22 09/08/22 09/08/22 11:59 11:59 11:59 WBC 2.9 L RBC 3.94 L Hgb 12.3 Hct 38.1 MCV 96.7 MCH 31.2 MCHC 32.3 RDW Std Deviation 47.9 H RDW Coeff of Dulce 13.2 Plt Count 145 L MPV 13.0 H Immature Gran % (Auto) 0.700 Neut % (Auto) 57.2 Lymph % (Auto) 24.8 [place] % (Auto) 16.3 H Eos % (Auto) 0.3 Baso % (Auto) 0.7 Absolute Neuts (auto) 1.7 L Absolute Lymphs (auto) 0.73 L Nucleated RBC % 0 PT 18.4 H INR 1.6 Sodium 132 L Potassium 3.4 L Chloride 101 Carbon Dioxide 22.0 Anion Gap 9 BUN 11 Creatinine 0.79 Estim Creat Clear Calc 43.07 Est GFR (MDRD) Af Amer 91 Est GFR (MDRD) Non-Af 75 BUN/Creatinine Ratio 14.0 Glucose 111 H Calcium 8.4 L Troponin I High Sens 8 Radiography Chest X-Ray - ED: 1 View Diagnostic Testing: Clinical Impression(s) from Imaging Studies Chest X-Ray 09/08/22 12:18 IMPRESSION: Stable examination. No acute abnormality is seen. Electronically Signed: Zaid Jason MD at 12:49 EST , 1 view chest x-ray obtained interpreted by myself as no acute disease process without evidence of infiltrate or pneumothorax. Radiology in agreement. EKG Initial EKG: Attestation: I personally reviewed and interpreted this EKG as follows: Comments: 8 fibrillation with a ventricular rate of [address] changes Discharge Plan Triage Chief Complaint: Palpitations ED Provider: Tahir Donis Dx/Rx/DC Orders Clinical Impression: COVID-19, Atrial fibrillation, Dyspnea Instructions: Caring for Someone Who Has COVID-19, ED AFIB Prescriptions: No Action prasterone (dhea) [DHEA] 25 mg capsule 15 mg PO DAILY timolol 0.25 % drops 1 drp ophthalmic (eye) BID latanoprost 1 DROP bottle 1 drp EACH EYE QHS cholecalciferol (vitamin D3) 1,000 UNIT tablet 1,000 unit PO BID coenzyme Q10 50 MG tablet,chewable 30 mg PO DAILY metoprolol tartrate 25 mg tablet 25 mg PO DAILY PRN (Reason: PRN for palpitations, tachycardia) Qty: 30 3RF warfarin 5 mg tablet 5 mg PO .COMPLEX Qty: 135 4RF Protocol: Dose Management Condition: Thursday Dose/Route: 10 mg Instruction: 2 x 5 mg tablets Condition: Thursday Dose/Route: 7.5 mg Instruction: 1.5 x 5 mg tablets Condition: Thursday Dose/Route: 7.5 mg Instruction: 1.5 x 5 mg tablets Condition: Thursday Dose/Route: 7.5 mg Instruction: 1.5 x 5 mg tablets Condition: Dose/Route: 7.5 mg Instruction: 1.5 x 5 mg tablets Condition: Thursday Dose/Route: 7.5 mg Instruction: 1.5 x 5 mg tablets Condition: Thursday Dose/Route: 7.5 mg Instruction: 1.5 x 5 mg tablets Protocol Text: Adjustment Start Date: Thursday08/20/22 INR Value: 2.6 INR Date: 08/20/22 Recheck Date: 09/17/22 Rx Instructions: 5 mg PO take one and one half tablet (7.5mg) daily or as directed; Primary Care Provider: Elizabeth Dale Referrals: Elizabeth Dale PA [Primary Care Provider] - 3-5 Days Disposition Disposition: Home, Self Care
[2022-09-08] MEDS: 0.9% Normal Saline 1,000 ML 150 ML IV (12:08)
[2022-09-08 12:10] LABS: Absolute Lymphocyte Count 0.73 X10^3/uL (0.83-4.51); Absolute Neutrophil Count 1.7 X10^3/uL (2.0-7.7); Basophil# 0.02 X10^3/uL; Basophil% 0.7 % (0-1); Eosinophil# 0.01 X10^3/uL; Eosinophils% 0.3 % (0-5); Hematocrit 38.1 % (37-47); Hemoglobin 12.3 g/dL (12.0-15.0); Lymphocyte # 0.73 X10^3/ul (0.83-4.51); Lymphocyte % 24.8 % (19-41); Mean Corp Hgb Conc 32.3 g/dL (32-36); Mean Corpuscular Hgb 31.2 pg (27.0-32.0); Mean Corpuscular Volume 96.7 fL (81-99); Monocyte# 0.48 X10^3/uL; Monocyte% 16.3 % (0-10); NRBC Flagged by Analyzer 0 % (0-5); Neutrophil # 1.68 X10^3/uL (2.7-7.7); Neutrophil % 57.2 % (47-70); Platelet Count 145 K/mm3 (150-450); RBC Distribution Width CV 13.2 % (11.6-14.6); RBC Distribution Width SD 47.9 fl (35.1-43.9); Red Blood Count 3.94 M/mm3 (4.2-5.4); White Blood Count 2.9 K/mm3 (4.4-11.0)
[2022-09-08 12:15] LABS: International Normalized Ratio 1.6; Prothrombin Time (Protime)PT. 18.4 SECONDS (11.7-14.9)
--- NOTE | 2022-09-08 12:18 | RAD_ITS ---
STUDY: X-RAY CHEST REASON FOR EXAM: Female, 76 years old. Dyspnea TECHNIQUE: Single AP portable view of the chest. COMPARISON: Comparison is made with prior study of 01/05/2022. FINDINGS: EKG electrodes are seen. Hyperinflation. Scattered calcified granulomas. There is no demonstrated pleural abnormality. Normal size heart. Normal mediastinum and elisha. Normal visualized pulmonary arteries. There is atherosclerotic calcification of the aortic arch with tortuosity. There are degenerative changes of the visualized thoracic spine. Normal visualized ribs, clavicles, and shoulders. There is no demonstrated abnormality of the visualized soft tissue structures of the upper abdomen. RAD/Chest 1 View (Portable) IMPRESSION: Stable examination. No acute abnormality is seen. Electronically Signed: Zaid Jason MD at 12:49 EST ,
[2022-09-08 12:25] LABS: Anion Gap 9 (5-15); BUN 11 mg/dL (7-18); Calcium,Total 8.4 mg/dL (8.5-10.1); Chloride 101 mmol/L (98-107); Creatinine, Serum 0.79 mg/dL (0.55-1.02); EST Glomerular Filtration Rate 75 mL/min (>60); Est Glom Filt Rate - Afr Amer 91 mL/min (>60); Estimated Creatinine Clearance 43.07 ml/min; Glucose 111 mg/dL (74-106); Potassium 3.4 mmol/L (3.5-5.1); Sodium Level 132 mmol/L (136-145); Troponin-I HS 8 pg/mL (3.0-54.0)
[2022-09-08] MEDS: dilTIAZem 25 MG/5 ML Vial 20 MG IV BOLUS (12:54)
== END 2022-09-08 14:02 | disposition home or self-care (01) ==
PROVIDERS: Emergency Provider Emergency Medicine; PCP Physician Assistant; Visit Provider Emergency Medicine
DX: U07.1 COVID-19 (principal); I48.91 Unspecified atrial fibrillation; R00.2 Palpitations; I10 Essential (primary) hypertension; R06.09 Other forms of dyspnea; G47.33 Obstructive sleep apnea (adult) (pediatric); Z79.01 Long term (current) use of 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
CPT/HCPCS: 71045; 80048; 84484; 85025; 85610; 93005; 96360; 96361; 99285; J7030; A4216

== ENCOUNTER 2022-10-07 16:27 | Outpatient (RCR) | payer BC, SELFPAY ==
[2022-08-23 22:46] VITALS: BMI 24.5
[2022-10-07 18:33] LABS: Prothrombin Time (Protime)PT. 31.1 SECONDS (11.7-14.9)
== END 2022-10-07 18:00 | disposition home or self-care (01) ==
LOC: LAB 16:27
PROVIDERS: PCP Physician Assistant; Referring Provider Nurse Practitioner Family; Visit Provider Nurse Practitioner Family
DX: I48.0 Paroxysmal atrial fibrillation (principal); Z79.01 Long term (current) use of 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
CPT/HCPCS: 36415; 85610

== ENCOUNTER 2022-10-12 04:03 | Observation (INO) | payer BC, MEDICARE, SELFPAY ==
[2022-10-12 04:03] VITALS: BP 145/69; PULSE 68; RESP 20; TEMP 36.4; O2SAT 100; BMI 27.1
--- NOTE | 2022-10-12 04:18 | EKG12_ITS ---
Test Reason : WEAKNESS Blood Pressure : / mmHG Vent. Rate : 065 BPM Atrial Rate : 065 BPM P-R Int : 212 ms QRS Dur : 076 ms QT Int : 392 ms P-R-T Axes : 066 003 057 degrees QTc Int : 407 ms Sinus rhythm with 1st degree A-V block Otherwise normal ECG Confirmed by ANGELA BAILEY, HERMAN ([id number]), newspaper or periodical editor MEGAN GUTIERREZ ([id number]) on 10/13/2022 1:12:17 PM Referred By: JESSICA Confirmed By:HERMAN MILLER MD
--- NOTE | 2022-10-12 04:19 | EDS_ITS ---
HPI History of Present Illness Chief Complaint: Weakness Detail of Chief Complaint: Weakness, diaphoresis, palpitations Informant: patient Narrative Narrative: Patient presents secondary to generalized weakness with diaphoresis. She is a h istory of paroxysmal A-fib. She states she felt herself go into A-fib tonight and when she does that she feels as if she is choking. She became sweaty and dizzy. She took a dose of her metoprolol which she reportedly only takes when she feels herself go into A-fib. She denies chest or back pain. 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 Near syncope PRAMOD (obstructive sleep apnea) Osteoarthritis Osteopenia Paroxysmal atrial fibrillation Shortness of breath Varicose vein of leg Vestibular neuritis Home Medications cholecalciferol (vitamin D3) 25 mcg (1,000 unit) tablet 1,000 unit PO BID vitamin 03/10/16 [History Last Taken Unknown] latanoprost 0.005 % eye drops 1 drp EACH EYE [facility] eye health 03/10/16 [History Last Taken Unknown] coenzyme Q10 50 mg chewable tablet 30 mg PO DAILY 06/07/19 [History Last Taken Unknown] prasterone (dhea) 25 mg capsule (DHEA) 15 mg PO DAILY 07/27/20 [History Last Taken Unknown] timolol 0.25 % eye drops 1 drp ophthalmic (eye) BID 12/02/21 [History Last Taken Unknown] warfarin 5 mg tablet 5 mg PO .COMPLEX #135 tabs 12/20/21 [Rx Last Taken Unknown] metoprolol tartrate 25 mg tablet 12.5 mg PO BID #30 tabs 09/09/22 [Rx Last Taken Unknown] Allergy/AdvReac Type Severity Reaction Status Date / Time cat dander Allergy Mild congestion Verified 10/12/22 04:11 grass pollen Allergy Mild Cough, Verified 10/12/22 04:11 rhinitis house dust Allergy Mild Cough, Verified 10/12/22 04:11 rhinitis mold Allergy Mild Cough, Verified 10/12/22 04:11 rhinitis tree and shrub pollen Allergy Mild Cough, Verified 10/12/22 04:11 rhinitis Sulfa (Sulfonamide Allergy Itching Verified 10/12/22 04:11 Antibiotics) losartan AdvReac Severe dizziness, Verified 10/12/22 04:11 severe amlodipine AdvReac Intermediate dizziness Verified 10/12/22 04:11 lisinopril AdvReac Intermediate Nagging Verified 10/12/22 04:11 dry cough Benzodiazepines AdvReac Other Verified 10/12/22 04:11 diazepam [From Valium] AdvReac Other Verified 10/12/22 04:11 Family History Father Myocardial infarction from [place] age 61 Heart disease Diabetes Sister Breast cancer Surgical History History of carpal tunnel release History of cataract surgery History of tonsillectomy history TMJ surgery history vein surgery S/P excision of Ramos's neuroma Social History household members: spouse housing: house Smoking Status: Never smoker alcohol intake: current alcohol intake frequency: a few times a month substance use type: does not use what type of physical activity do you participate in: none do you feel safe at home: Yes ROS ROS ED Constitutional Constitutional ED: Denies chills or fever(s) Eyes Eyes: Denies change in vision or discharge from eye(s) ENT ENT ED: Denies discharge from eye(s), rhinorrhea or sore throat Cardiovascular Cardiovascular: Reports palpitations; Denies chest pain Respiratory/Chest Respiratory/Chest: Denies cough or dyspnea Gastrointestinal Gastrointestinal: Denies abdominal pain, nausea or vomiting Genitourinary Genitourinary ED: Denies dysuria Musculoskeletal Musculoskeletal: Denies back pain or extremity pain Integumentary Denies Abrasions or rash Neurologic Neurologic: Denies headache(s) or weakness Psychiatric Psychiatric: Denies anxiety or depression Allergic/Immunologic Allergic/Immunologic ED: Denies lip swelling or urticaria EXAM Physical Exam Const Vital Signs: 10/12/22 04:03 10/12/22 04:11 Temperature 97.6 F L Temperature Source Temporal Pulse Rate 68 Respiratory Rate 20 H Respiratory Effort Normal Respiratory Pattern Normal Blood Pressure 145/69 H Blood Pressure Mean 94 Pulse Ox 100 Positive well nourished and well developed General Appearance ED: well developed HEENT Reports normocephalic and head/scalp atraumatic Eyes PERRL and EOMs intact bilaterally Neck supple Chest Wall inspection of chest normal and palpation of chest normal Resp normal respiratory effort and clear to auscultation bilaterally Cardio regular rate and regular rhythm GI non-tender Auscultation: hypoactive bowel sounds Palpation: soft Extremity normal to inspection Neuro oriented x3 and no sensory deficits noted Sensorium / Orientation: alert Motor Exam: strength 5/5 throughout Psych Mood & Affect: anxious Skin no rashes or lesions noted MDM MDM MDM Narrative Medical decision making narrative: Patient placed on manager monitoring on arrival. She has been in sinus rhythm. EKG obtained. Portable chest x-ray ordered. Lab work obtained to evaluate for leukocytosis, anemia, electrolyte derangement. Troponin and TSH both obtained. Lab Data Attestation: I reviewed the patient's lab results. Labs: Laboratory Results - last 24 hr 10/12/22 10/12/22 10/12/22 04:15 04:15 04:15 WBC 5.7 RBC 4.02 L Hgb 12.4 Hct 39.8 MCV 99.0 MCH 30.8 MCHC 31.2 L RDW Std Deviation 50.2 H RDW Coeff of Dulce 13.8 Plt Count 166 MPV 13.0 H Immature Gran % (Auto) 0.300 Neut % (Auto) 44.1 L Lymph % (Auto) 27.6 [place] % (Auto) 11.4 H Eos % (Auto) 15.4 H Baso % (Auto) 1.2 H Absolute Neuts (auto) 2.5 Absolute Lymphs (auto) 1.58 Nucleated RBC % 0 PT Cancelled INR Cancelled Sodium 139 Potassium 4.8 Chloride 111 H Carbon Dioxide 24.0 Anion Gap 4 L BUN 24 H Creatinine 0.80 Estim Creat Clear Calc 53.83 Est GFR (MDRD) Af Amer 90 Est GFR (MDRD) Non-Af 75 BUN/Creatinine Ratio 30.2 H Glucose 106 Calcium 9.4 Troponin I High Sens 11 TSH 7.29 H 10/12/22 10/12/22 10/12/22 05:08 06:03 06:39 WBC RBC Hgb Hct MCV MCH MCHC RDW Std Deviation RDW Coeff of Dulce Plt Count MPV Immature Gran % (Auto) Neut % (Auto) Lymph % (Auto) [place] % (Auto) Eos % (Auto) Baso % (Auto) Absolute Neuts (auto) Absolute Lymphs (auto) Nucleated RBC % PT Cancelled Cancelled 29.3 H INR Cancelled Cancelled 2.8 Sodium Potassium Chloride Carbon Dioxide Anion Gap BUN Creatinine Estim Creat Clear Calc Est GFR (MDRD) Af Amer Est GFR (MDRD) Non-Af BUN/Creatinine Ratio Glucose Calcium Troponin I High Sens TSH 10/12/22 06:39 WBC RBC Hgb Hct MCV MCH MCHC RDW Std Deviation RDW Coeff of Dulce Plt Count MPV Immature Gran % (Auto) Neut % (Auto) Lymph % (Auto) [place] % (Auto) Eos % (Auto) Baso % (Auto) Absolute Neuts (auto) Absolute Lymphs (auto) Nucleated RBC % PT INR Sodium Potassium Chloride Carbon Dioxide Anion Gap BUN Creatinine Estim Creat Clear Calc Est GFR (MDRD) Af Amer Est GFR (MDRD) Non-Af BUN/Creatinine Ratio Glucose Calcium Troponin I High Sens 31 TSH Radiography Chest X-Ray - ED: 1 View, Read by ED Physician, Chronic Changes and No Infiltrates Diagnostic Testing: Clinical Impression(s) from Imaging Studies Chest X-Ray 10/12/22 04:30 IMPRESSION: No radiographic evidence of acute cardiopulmonary disease. Electronically Signed: Reji House MD at 5:50 EST Reading Location ID and State: [facility] / [place] Tel , Service support , EKG Initial EKG: Attestation: I personally reviewed and interpreted this EKG as follows: Interpretation: Sinus Rhythm (Sinus at 65 with no acute ischemia. First- degree block noted with NM interval of 212.) Treatment and Re-Evaluation Narrative: CBC is unremarkable. Chemistry studies are unremarkable. Initial troponin is 11. TSH is elevated at 7.29, more indicative of hypothyroidism rather than hyperthyroidism. 2-hour delta troponin is obtained and has gone up by 20 points, the repeat being 31. Her INR is therapeutic at 2.8. Portable chest x- ray per my interpretation was chronic changes with no acute infiltrate. Radiology interpretation is reviewed. EKG is sinus at 65 with first-degree AV b lock. Patient did get up to try to go to the restroom while here. She made it to the door way but was very unsteady on her feet. She was assisted back to the bedside and a bedside commode was used. Given the patient's unsteadiness as well as a 20 point increase in her delta troponin, I did recommend observation for further testing and monitoring. I will speak with the hospitalist. Discharge Plan Triage Chief Complaint: Weakness ED Provider: Linda Akins Dx/Rx/DC Orders Clinical Impression: Palpitations, Near syncope Prescriptions: No Action prasterone (dhea) [DHEA] 25 mg capsule 15 mg PO DAILY timolol 0.25 % drops 1 drp ophthalmic (eye) BID latanoprost 1 DROP bottle 1 drp EACH EYE QHS cholecalciferol (vitamin D3) 1,000 UNIT tablet 1,000 unit PO BID coenzyme Q10 50 MG tablet,chewable 30 mg PO DAILY warfarin 5 mg tablet 5 mg PO .COMPLEX Qty: 135 4RF Protocol: Dose Management Condition: Thursday Dose/Route: 10 mg Instruction: 2 x 5 mg tablets Condition: Thursday Dose/Route: 7.5 mg Instruction: 1.5 x 5 mg tablets Condition: Thursday Dose/Route: 7.5 mg Instruction: 1.5 x 5 mg tablets Condition: Thursday Dose/Route: 7.5 mg Instruction: 1.5 x 5 mg tablets Condition: Dose/Route: 7.5 mg Instruction: 1.5 x 5 mg tablets Condition: Thursday Dose/Route: 7.5 mg Instruction: 1.5 x 5 mg tablets Condition: Thursday Dose/Route: 7.5 mg Instruction: 1.5 x 5 mg tablets Protocol Text: Adjustment Start Date: Thursday10/08/22 INR Value: 3.0 INR Date: 10/07/22 Recheck Date: 10/29/22 Rx Instructions: 5 mg PO take one and one half tablet (7.5mg) daily or as directed; metoprolol tartrate 25 mg tablet 12.5 mg PO BID Qty: 30 11RF Primary Care Provider: Elizabeth Dale Referrals: Elizabeth Dale PA [Primary Care Provider] - Disposition Disposition: [facility]
--- NOTE | 2022-10-12 04:30 | RAD_ITS ---
INDICATION: chest pain EXAMINATION/TECHNIQUE: X-RAY - XR Chest 1 View COMPARISON: None. FINDINGS: LINES/DEVICES: None. LUNGS: No consolidation, edema or effusion. No pneumothorax. MEDIASTINUM AND CARDIOVASCULAR STRUCTURES: Cardiac silhouette not enlarged. Central airways and mediastinal contour are unremarkable. BONES AND SOFT TISSUES: Unremarkable. RAD/Chest 1 View (Portable) IMPRESSION: No radiographic evidence of acute cardiopulmonary disease. Electronically Signed: Reji House MD at 5:50 EST ,
[2022-10-12 04:37] LABS: Absolute Lymphocyte Count 1.58 X10^3/uL (0.83-4.51); Absolute Neutrophil Count 2.5 X10^3/uL (2.0-7.7); Basophil# 0.07 X10^3/uL; Basophil% 1.2 % (0-1); Eosinophil# 0.88 X10^3/uL; Eosinophils% 15.4 % (0-5); Hematocrit 39.8 % (37-47); Hemoglobin 12.4 g/dL (12.0-15.0); Lymphocyte # 1.58 X10^3/ul (0.83-4.51); Lymphocyte % 27.6 % (19-41); Mean Corp Hgb Conc 31.2 g/dL (32-36); Mean Corpuscular Hgb 30.8 pg (27.0-32.0); Monocyte# 0.65 X10^3/uL; Monocyte% 11.4 % (0-10); NRBC Flagged by Analyzer 0 % (0-5); Neutrophil # 2.52 X10^3/uL (2.7-7.7); Neutrophil % 44.1 % (47-70); Platelet Count 166 K/mm3 (150-450); RBC Distribution Width CV 13.8 % (11.6-14.6); RBC Distribution Width SD 50.2 fl (35.1-43.9); Red Blood Count 4.02 M/mm3 (4.2-5.4); White Blood Count 5.7 K/mm3 (4.4-11.0)
[2022-10-12 05:24] LABS: Anion Gap 4 (5-15); BUN 24 mg/dL (7-18); BUN/Creat Ratio 30.2 RATIO (10-20); Calcium,Total 9.4 mg/dL (8.5-10.1); Chloride 111 mmol/L (98-107); EST Glomerular Filtration Rate 75 mL/min (>60); Est Glom Filt Rate - Afr Amer 90 mL/min (>60); Estimated Creatinine Clearance 53.83 ml/min; Glucose 106 mg/dL (74-106); Potassium 4.8 mmol/L (3.5-5.1); Sodium Level 139 mmol/L (136-145); Thyroid Stim Hormone (TSH) 7.29 uIU/mL (0.358-3.74); Troponin-I HS (w/2H Reflex) 11 pg/mL (3.0-54.0)
[2022-10-12 06:33] LABS: Reflex Troponin-HS? (from REC) Y
[2022-10-12 06:55] LABS: International Normalized Ratio 2.8; Prothrombin Time (Protime)PT. 29.3 SECONDS (11.7-14.9)
[2022-10-12 07:02] LABS: Troponin-I HS 31 pg/mL (3.0-54.0)
[2022-10-12 10:04] VITALS: BP 137/68; PULSE 61; RESP 22; TEMP 36.6; O2SAT 96
[2022-10-12 10:06] VITALS: BP 137/68; PULSE 60; RESP 20; TEMP 36.6; O2SAT 94
--- NOTE | 2022-10-12 12:24 | PCM.HP.STD ---
HPI - General General Date of Admission: 10/12/22 HPI Narrative CROW BARTHOLOMEW, is a 76 F who presents to the hospital complaining of palpitations and transient weakness. She states that she has known A-fib and that whenever she feels like she goes into A-fib she is to take metoprolol she presents today because she had an episode overnight that was more intense and lasted longer than her previous episodes. She feels well currently without any issues but only takes metoprolol as needed. She denies any chest pain but she did become diaphoretic part of the concern with the ED was that she did a delta troponin and her troponin went from 11 to 31 she states that she has felt unwell for about a month when she was diagnosed with COVID. 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 Near syncope PRAMOD (obstructive sleep apnea) Osteoarthritis Osteopenia Paroxysmal atrial fibrillation Shortness of breath Varicose vein of leg Vestibular neuritis Home Medications cholecalciferol (vitamin D3) 25 mcg (1,000 unit) tablet 1,000 unit PO BID vitamin 03/10/16 [History Last Taken 10/11/22] latanoprost 0.005 % eye drops 1 drp EACH EYE [facility] eye health 03/10/16 [History Last Taken 10/11/22] coenzyme Q10 50 mg chewable tablet 30 mg PO DAILY 06/07/19 [History Last Taken 10/11/22] prasterone (dhea) 25 mg capsule (DHEA) 15 mg PO DAILY 07/27/20 [History Last Taken 10/11/22] timolol 0.25 % eye drops 1 drp ophthalmic (eye) BID 12/02/21 [History Last Taken 10/11/22] Healthly Lung 1 tab PO/SL DAILY covid 10/12/22 [History Last Taken 10/11/22] alpha lipoic acid 50 mg capsule 50 mg PO DAILY supplement 10/12/22 [History Last Taken 10/11/22] metoprolol tartrate 25 mg tablet 12.5 mg PO BID afib 10/12/22 [History Last Taken 10/11/22] warfarin 5 mg tablet 7.5 mg PO MOTUWETHFRSA 10/12/22 [History Last Taken 10/11/22] warfarin 5 mg tablet 10 mg PO JONAS afib 10/12/22 [History Last Taken 10/05/22] Allergy/AdvReac Type Severity Reaction Status Date / Time cat dander Allergy Mild congestion Verified 10/12/22 04:11 grass pollen Allergy Mild Cough, Verified 10/12/22 04:11 rhinitis house dust Allergy Mild Cough, Verified 10/12/22 04:11 rhinitis mold Allergy Mild Cough, Verified 10/12/22 04:11 rhinitis tree and shrub pollen Allergy Mild Cough, Verified 10/12/22 04:11 rhinitis Sulfa (Sulfonamide Allergy Itching Verified 10/12/22 04:11 Antibiotics) losartan AdvReac Severe dizziness, Verified 10/12/22 04:11 severe amlodipine AdvReac Intermediate dizziness Verified 10/12/22 04:11 lisinopril AdvReac Intermediate Nagging Verified 10/12/22 04:11 dry cough Benzodiazepines AdvReac Other Verified 10/12/22 04:11 diazepam [From Valium] AdvReac Other Verified 10/12/22 04:11 Family History Father Myocardial infarction from [place] age 61 Heart disease Diabetes Sister Breast cancer Surgical History History of carpal tunnel release History of cataract surgery History of tonsillectomy history TMJ surgery history vein surgery S/P excision of Ramos's neuroma Social History household members: spouse housing: house Smoking Status: Never smoker alcohol intake: current alcohol intake frequency: a few times a month substance use type: does not use what type of physical activity do you participate in: none do you feel safe at home: Yes ROS Constitutional Constitutional: Denies chills, fatigue, fever(s) or malaise Eyes Eyes: Denies blurry vision ENT HEENT: Denies headache(s) or nasal discharge Cardiovascular Cardiovascular: Reports palpitations; Denies chest pain, dyspnea on exertion or syncope Respiratory/Chest Respiratory/Chest: Denies cough, shortness of breath at rest or shortness of breath with exertion Gastrointestinal Gastrointestinal: Denies constipation, diarrhea, nausea or vomiting Genitourinary Genitourinary: Denies dysuria Neurologic Neurologic: Denies focal weakness, numbness or tremor(s) Psychiatric Psychiatric: Denies anxiety or depression Vital Signs Vital Signs Vital Signs: 10/12/22 04:03 10/12/22 04:11 10/12/22 10:04 Temperature 97.6 F L 97.8 F Temperature Source Temporal Temporal Pulse Rate 68 61 Respiratory Rate 20 H 22 H Respiratory Effort Normal Respiratory Pattern Normal Blood Pressure 145/69 H 137/68 H Blood Pressure Mean 94 91 Pulse Ox 100 96 Oxygen Delivery Method Room Air 10/12/22 10:06 10/12/22 11:09 Temperature 97.8 F Temperature Source Oral Pulse Rate 60 Respiratory Rate 20 H Respiratory Effort Respiratory Pattern Blood Pressure 137/68 H Blood Pressure Mean 91 Pulse Ox 94 Oxygen Delivery Method Room Air Room Air Weight Weight: 162 lb 11.218 oz Body Mass Index (BMI) 27.1 Physical Exam Narrative General: Alert, Oriented x3, Cooperative, No apparent distress HEENT: Atraumatic, PERRLA, EOMI, Normocephalic Oral: Moist Mucosa Neck: Supple, No JVD Lungs: Clear to auscultation, Normal air movement, No rhonchi, No wheeze, No rales Cardiovascular: Regular rate, Regular Rhythm, Normal S1, Normal S2, No murmurs Abdomen: Soft, Non Tender, Non-Distended, No Hepato-splenomegaly Extremities: No edema, Capillary Refill Less than 3 Seconds Skin: Lower extremity varicose veins slightly tender to palpation Musculoskeletal: No Tenderness to Palpation of Joints or Extremities Neurological: Moves all extremities, sensory exam intact Psych/Mental Status: Normal Affect, Appropriate Results Lab / Micro Data Result Diagrams: 10/12/22 04:15 10/12/22 04:15 Labs: Laboratory Results - last 24 hr 10/12/22 04:15: Sodium 139, Potassium 4.8, Chloride 111 H, Carbon Dioxide 24.0, Anion Gap 4 L, BUN 24 H, Creatinine 0.80, Estim Creat Clear Calc 53.83, Est GFR (MDRD) Af Amer 90, Est GFR (MDRD) Non-Af 75, BUN/Creatinine Ratio 30.2 H, Glucose 106, Calcium 9.4, Troponin I High Sens 11, TSH 7.29 H 10/12/22 04:15: WBC 5.7, RBC 4.02 L, Hgb 12.4, Hct 39.8, MCV 99.0, MCH 30.8, MCHC 31.2 L, RDW Std Deviation 50.2 H, RDW Coeff of Dulce 13.8, Plt Count 166, MPV 13.0 H, Immature Gran % (Auto) 0.300, Neut % (Auto) 44.1 L, Lymph % (Auto) 27.6, [place] % (Auto) 11.4 H, Eos % (Auto) 15.4 H, Baso % (Auto) 1.2 H, Absolute Neuts (auto) 2.5, Absolute Lymphs (auto) 1.58, Nucleated RBC % 0 10/12/22 04:15: PT Cancelled, INR Cancelled 10/12/22 05:08: PT Cancelled, INR Cancelled 10/12/22 06:03: PT Cancelled, INR Cancelled 10/12/22 06:39: PT 29.3 H, INR 2.8 10/12/22 06:39: Troponin I High Sens 31 Radiology Impression Chest X-Ray 10/12/22 04:30 IMPRESSION: No radiographic evidence of acute cardiopulmonary disease. Electronically Signed: Reji House MD at 5:50 EST Reading Location ID and State: [facility] / [place] Tel , Service support , Assessment & Plan Assessment/Plan (1) Near syncope: (2) Paroxysmal atrial fibrillation: PLAN: Plan 1. A-fib ? She is on Coumadin and has been therapeutic for the last week therefore the left calf pain that she is concerned about is likely musculoskeletal and will forego at ultrasound at this time ? She is back to normal sinus rhythm ? We will continue with metoprolol twice daily dosing versus as needed and will monitor on telemetry ? TSH is elevated so we will obtain a free T3 and T4 ? Echo for tomorrow ? She reiterated that she wants to go home tomorrow if possible DVT: Coumadin Charges/Coding Visit Charges Inpatient E&M: 82927 Init Hosp L2
--- NOTE | 2022-10-12 13:22 | ECHOD_ITS ---
Reason For Study: Afib, Aflutter Procedure This was a 2D Doppler, Color Flow transthoracic echocardiogram. Exam performed portable in patient room. Left Ventricle Normal LV size. Left ventricular systolic function is normal. The estimated ejection fraction is 60 %. Stage 1 diastolic dysfunction. No regional wall motion abnormalities noted. Right Ventricle Normal RV size. Normal systolic function. Atria Normal left atrium. Normal right atrium. Mitral Valve Normal mitral valve. Mild (1+) eccentric mitral valve insufficiency. Tricuspid Valve Normal tricuspid valve. Mild (1+) tricuspid valve insufficiency. Pulmonary artery systolic pressure is 33 mmHg. Aortic Valve Trisinus/trileaflet aortic valve. Pulmonic Valve Normal pulmonic valve. Great Vessels Normal aortic root. The pulmonary artery is normal size. Normal inferior vena cava. Pericardium/Pleural No pericardial effusion. MMode/2D Measurements & Calculations LVIDd: 4.3 cm IVSd: 0.86 cm Ao root diam: 3.3 cm LVIDs: 2.4 cm LVPWd: 0.85 cm RVDd: 4.5 cm FS: 43.8 % LAV(MOD-bp): 54.9 ml LVAd ap4: 20.8 cm2 SV(MOD-sp4): 33.5 ml LAV(MOD-bp) Indexed: 31.4 ml/m2 LVLd ap4: 7.3 cm LAV(MOD-sp2): 63.8 ml EDV(MOD-sp4): 49.3 ml LAV(MOD-sp4): 44.1 ml EDV(sp4-el): 50.0 ml LVAs ap4: 10.2 cm2 LVLs ap4: 5.7 cm ESV(MOD-sp4): 15.7 ml ESV(sp4-el): 15.5 ml EF(MOD-sp4): 68.1 % EF(sp4-el): 69.0 % SV(sp4-el): 34.5 ml LA A4 area: 18.0 cm2 LA dimension(2D): 4.0 cm RA A4 area: 14.7 cm2 Time Measurements MV dec time: 0.31 sec Doppler Measurements & Calculations MV E max cy: 68.9 cm/sec Lat Peak E' Cy: 13.9 cm/sec Med Peak E' Cy: 7.9 cm/sec MV A max cy: 72.5 cm/sec E/E' lat: 5.0 E/E' med: 8.8 MV E/A: 0.95 Ao V2 max: 176.6 cm/sec LV V1 max: 147.4 cm/sec MV dec slope: 220.7 cm/sec2 Ao max P.5 mmHg LV V1 max P.7 mmHg Ao V2 mean: 125.0 cm/sec Ao mean P.8 mmHg Ao V2 VTI: 36.1 cm PA V2 max: 90.6 cm/sec PI end-d cy: 72.2 cm/sec TR max cy: 272.7 cm/sec TR max P.7 mmHg ECHO/Echo Complete Interpretation Summary Normal LV size. Left ventricular systolic function is normal. The estimated ejection fraction is 60 %. Stage 1 diastolic dysfunction. Ordering Physician: Walker Perry Referring Physician: Tino Dale Performed By: Julieta Rosales, JULIA, RVT
[2022-10-12 13:31] VITALS: BP 146/72; PULSE 62; RESP 16; TEMP 37.1; O2SAT 97
[2022-10-12 13:40] VITALS: BMI 25.0
[2022-10-12 22:01] VITALS: BP 139/71; PULSE 65; RESP 16; TEMP 36.7; O2SAT 96
[2022-10-12 22:16] VITALS: PULSE 65
--- NOTE | 2022-10-12 23:25 | NURSING ---
Spoke with about patient refusing her Metoprolol 12.5mg. Pt states she only takes her Metoprolol PRN. Pt stated she used to be on it scheduled but it dropped her heartrate too low and she felt sick. She states she sees a new doctor and she now takes it PRN. stated noted and we will monitor her vitals as they are due.
[2022-10-13 03:45] VITALS: BP 147/67; PULSE 62; RESP 16; TEMP 36.6; O2SAT 97
[2022-10-13 05:49] LABS: Absolute Lymphocyte Count 1.27 X10^3/uL (0.83-4.51); Absolute Neutrophil Count 2.3 X10^3/uL (2.0-7.7); Basophil# 0.06 X10^3/uL; Basophil% 1.2 % (0-1); Eosinophil# 0.58 X10^3/uL; Eosinophils% 11.9 % (0-5); Hematocrit 36.5 % (37-47); Hemoglobin 11.7 g/dL (12.0-15.0); Lymphocyte # 1.27 X10^3/ul (0.83-4.51); Lymphocyte % 26.1 % (19-41); Mean Corp Hgb Conc 32.1 g/dL (32-36); Mean Corpuscular Hgb 31.8 pg (27.0-32.0); Mean Corpuscular Volume 99.2 fL (81-99); Mean Platelet Vol. 11.9 fl (6.2-12.0); Monocyte# 0.59 X10^3/uL; Monocyte% 12.1 % (0-10); NRBC Flagged by Analyzer 0 % (0-5); Neutrophil # 2.34 X10^3/uL (2.7-7.7); Neutrophil % 48.3 % (47-70); Platelet Count 165 K/mm3 (150-450); RBC Distribution Width CV 13.7 % (11.6-14.6); RBC Distribution Width SD 50.1 fl (35.1-43.9); Red Blood Count 3.68 M/mm3 (4.2-5.4); White Blood Count 4.9 K/mm3 (4.4-11.0)
[2022-10-13 06:04] LABS: International Normalized Ratio 3.3; Prothrombin Time (Protime)PT. 33.5 SECONDS (11.7-14.9)
[2022-10-13 06:34] LABS: Anion Gap 5 (5-15); BUN 20 mg/dL (7-18); BUN/Creat Ratio 30.2 RATIO (10-20); Calcium,Total 8.6 mg/dL (8.5-10.1); Chloride 111 mmol/L (98-107); Creatinine, Serum 0.66 mg/dL (0.55-1.02); EST Glomerular Filtration Rate 92 mL/min (>60); Est Glom Filt Rate - Afr Amer 111 mL/min (>60); Estimated Creatinine Clearance 43.07 ml/min; Free T3 1.9 pg/mL (2.18-3.98); Glucose 97 mg/dL (74-106); Potassium 3.8 mmol/L (3.5-5.1); Sodium Level 142 mmol/L (136-145); Troponin-I HS 6 pg/mL (3.0-54.0)
[2022-10-13 09:30] VITALS: BP 138/68; PULSE 70; RESP 16; TEMP 36.6; O2SAT 99
[2022-10-13 10:13] VITALS: PULSE 70
--- NOTE | 2022-10-13 12:16 | CASEMGMT ---
LEANDER BLANCO in to complete LOO form with patient. LEANDER BLANCO explained LOO form to patient, patient voiced understanding. Patient signed LOO form and filed in chart. Patient provided copy of signed LOO form. LEANDER BLANCO inquired if patient had any needs at discharge. Patient walked independently with therapy in hallway. Patient denies needs at this time. Patient had no further questions or concerns at this time.
[2022-10-13 15:30] VITALS: BP 143/79; PULSE 64; RESP 16; TEMP 36.8; O2SAT 96
--- NOTE | 2022-10-13 16:18 | PCM.DC ---
Discharge Instructions Diet Discharge Diet: Low fat / Low cholesterol Activity Discharge Activity: Return to Normal Activity Weight Bearing Status: Weight bearing as tolerated Dressing / Incision Call your doctor if you observe: Fever of 101 or Higher, Shortness of breath, Dizziness, Swelling in the ankles, Chest pain and Increased palpitations (irregular heartbeat) Follow Up Care Test Results: Test results from this visit will be discussed in further detail at your follow-up appointment, if applicable. Discharge Plan Admission Admit Date/Time: 10/12/22 07:40 Primary Reason for Your Visit: afib with RVR Attending Provider: Celena West Primary Care Provider: Elizabeth Dale Consulting Providers: Walker Perry Instructions Patient Instructions: AFib Dc Additional Instructions / Restrictions: follow up with PCP for repeat thyroid function tests. To be compliant with your metoprolol. Follow up with certified home health aide within 1-2 weeks Discharge Orders/Prescriptions Prescriptions: Continued prasterone (dhea) [DHEA] 25 mg capsule 15 mg PO DAILY timolol 0.25 % drops 1 drp ophthalmic (eye) BID latanoprost 1 DROP bottle 1 drp EACH EYE [facility] cholecalciferol (vitamin D3) 1,000 UNIT tablet 1,000 unit PO BID coenzyme Q10 50 MG tablet,chewable 30 mg PO DAILY warfarin 5 mg tablet 10 mg PO JONAS warfarin 5 mg tablet 7.5 mg PO MOTUWETHFRSA Protocol: Dose Management Condition: Thursday Dose/Route: 10 mg Instruction: 2 x 5 mg tablets Condition: Thursday Dose/Route: 7.5 mg Instruction: 1.5 x 5 mg tablets Condition: Thursday Dose/Route: 7.5 mg Instruction: 1.5 x 5 mg tablets Condition: Thursday Dose/Route: 7.5 mg Instruction: 1.5 x 5 mg tablets Condition: Dose/Route: 7.5 mg Instruction: 1.5 x 5 mg tablets Condition: Thursday Dose/Route: 7.5 mg Instruction: 1.5 x 5 mg tablets Condition: Thursday Dose/Route: 7.5 mg Instruction: 1.5 x 5 mg tablets Protocol Text: Adjustment Start Date: Thursday10/08/22 INR Value: 3.0 INR Date: 10/07/22 Recheck Date: 10/29/22 metoprolol tartrate 25 mg tablet 12.5 mg PO BID alpha lipoic acid 50 mg Capsule 50 mg PO DAILY Healthly Lung 1 tab PO/SL DAILY Referrals / Follow Up: Elizabeth Dale PA [Primary Care Provider] - Within 2 Weeks Desire Weldon PA [Med Staff - [facility] Practice Prof] - Within 2 Weeks Disposition Disposition (needs filled in before D/C Order can be placed): Home, Self Care
--- NOTE | 2022-10-13 16:20 | PCM.DC.SUM ---
Providers Date of Admission: 10/12/22 Date of Discharge: 10/13/22 Primary Care Physician: JEANNIE Pires Reason For Visit: NEAR SYNCOPE Diagnosis Discharge Diagnosis (1) Near syncope: Status: Acute Code(s): R55 - Syncope and collapse (2) Paroxysmal atrial fibrillation: Status: Chronic Code(s): I48.0 - Paroxysmal atrial fibrillation Medications at Discharge Home Medications cholecalciferol (vitamin D3) 25 mcg (1,000 unit) tablet 1,000 unit PO BID vitamin 03/10/16 latanoprost 0.005 % eye drops 1 drp EACH EYE [facility] eye health 03/10/16 coenzyme Q10 50 mg chewable tablet 30 mg PO DAILY 06/07/19 prasterone (dhea) 25 mg capsule (DHEA) 15 mg PO DAILY 07/27/20 timolol 0.25 % eye drops 1 drp ophthalmic (eye) BID 12/02/21 Healthly Lung 1 tab PO/SL DAILY covid 10/12/22 alpha lipoic acid 50 mg capsule 50 mg PO DAILY supplement 10/12/22 metoprolol tartrate 25 mg tablet 12.5 mg PO BID afib 10/12/22 warfarin 5 mg tablet 7.5 mg PO MOTUWETHFRSA 10/12/22 warfarin 5 mg tablet 10 mg PO JONAS afib 10/12/22 Hospital Course Operations None Procedures 2-D Echocardiogram Summary of Care Provided Minutes Spent on Discharge: 40 Hospital Course: Patient is a 76-year-old female with a past medical history as outlined was admitted through the ED on 10/12/2022 with a complaint of palpitations and weakness. Patient has a known history of A-fib and felt that her heart rate was faster than normal and lasted longer than her previous episodes. She denied any chest pain though she did admit to increased sweating. She denied any nausea, vomiting or any other symptoms. She has been compliant with her metoprolol. Patient states she had COVID about a month ago and since then she has been feeling quite weak. Review of systems otherwise negative. She was admitted and managed for A-fib with RVR. Her heart rate subsequently improved and normalized. She was continued on a p.o. metoprolol. She had 2D echo which showed EF of 60% with stage I diastolic dysfunction and no regional wall motion abnormalities. This was not much different from 2D echo done in 2019. TSH done was elevated at around 7 and free T4 was normal but free T3 was mildly suppressed. In light of her advanced age, no medications were initiated and patient counseled to follow-up with her PCP for repeat thyroid function test before any decision is made about initiation of medication. Patient seen and examined prior to discharge. She had no active complaints and had an uneventful night. Review of systems otherwise negative. Labs and vitals reviewed. Home medication reviewed and reconciled. Physical Exam Const alert, oriented x3 and no apparent distress General Appearance: cooperative, comfortable and well kempt Orientation / Consciousness: awake Exam Limitations: no limitations HEENT normocephalic, head/scalp atraumatic, hearing grossly normal bilaterally and moist oral mucous membranes Mouth: oral and palatal mucosa normal Eyes PERRL, EOMs intact bilaterally and conjunctivae normal Neck no lymphadenopathy, supple and no JVD Resp normal respiratory effort, no retractions, no use of accessory muscles and clear to auscultation bilaterally Cardio regular rate, regular rhythm, S1 normal heart sound, S2 normal heart sound and no murmurs GI normal to inspection, nondistended, normoactive bowel sounds, soft to palpation, non-tender and non-distended Extremity normal to inspection, full ROM and no clubbing, cyanosis or edema Skin no rashes or lesions noted Neuro oriented x3, CN's II-XII intact bilaterally, moves all extremities and no focal motor deficits Sensorium / Orientation: awake and alert Motor Exam: strength 5/5 throughout Psych affect normal Weight / BMI Weight Weight: 150 lb Body Mass Index (BMI) 25.0 ABG / Lab / Microbiology Data Result Diagrams: 10/13/22 05:40 10/13/22 05:40 Laboratory: Laboratory Results - last 24 hr 10/13/22 05:40: WBC 4.9, RBC 3.68 L, Hgb 11.7 L, Hct 36.5 L, MCV 99.2 H, MCH 31.8, MCHC 32.1, RDW Std Deviation 50.1 H, RDW Coeff of Dulce 13.7, Plt Count 165, MPV 11.9, Immature Gran % (Auto) 0.400, Neut % (Auto) 48.3, Lymph % (Auto) 26.1, [place] % (Auto) 12.1 H, Eos % (Auto) 11.9 H, Baso % (Auto) 1.2 H, Absolute Neuts (auto) 2.3, Absolute Lymphs (auto) 1.27, Nucleated RBC % 0 10/13/22 05:40: Sodium 142, Potassium 3.8, Chloride 111 H, Carbon Dioxide 26.0, Anion Gap 5, BUN 20 H, Creatinine 0.66, Estim Creat Clear Calc 43.07, Est GFR (MDRD) Af Amer 111, Est GFR (MDRD) Non-Af 92, BUN/Creatinine Ratio 30.2 H, Glucose 97, Calcium 8.6, Troponin I High Sens 6, Free T4 1.00, Free T3 pg/dL 1.9 L 10/13/22 05:40: PT 33.5 H, INR 3.3 Radiography Diagnostic Testing: Radiology Impression Echocardiogram 10/12/22 13:22 Interpretation Summary Normal LV size. Left ventricular systolic function is normal. The estimated ejection fraction is 60 %. Stage 1 diastolic dysfunction. Ordering Physician: Walker Perry Referring Physician: Tino Dale Performed By: Julieta Rosales RDCS, RVT D/C Instructions Discharge Diet: Low fat / Low cholesterol Discharge Activity: Return to Normal Activity Weight Bearing Status: Weight bearing as tolerated Call your doctor if you observe: Fever of 101 or Higher, Shortness of breath, Dizziness, Swelling in the ankles, Chest pain and Increased palpitations (irregular heartbeat) Meaningful Use Info Meaningful Use Diagnoses (Choose all that apply): None applicable Discharge Plan Admission Admit Date/Time: 10/12/22 07:40 Primary Reason for Your Visit: afib with RVR Attending Provider: Celena West Primary Care Provider: Elizabeth Dale Consulting Providers: Walker Perry Instructions Patient Instructions: AFib Dc Additional Instructions / Restrictions: follow up with PCP for repeat thyroid function tests. To be compliant with your metoprolol. Follow up with scientific informatics leader within 1-2 weeks Discharge Orders/Prescriptions Prescriptions: Continued prasterone (dhea) [DHEA] 25 mg capsule 15 mg PO DAILY timolol 0.25 % drops 1 drp ophthalmic (eye) BID latanoprost 1 DROP bottle 1 drp EACH EYE [facility] cholecalciferol (vitamin D3) 1,000 UNIT tablet 1,000 unit PO BID coenzyme Q10 50 MG tablet,chewable 30 mg PO DAILY warfarin 5 mg tablet 10 mg PO JONAS warfarin 5 mg tablet 7.5 mg PO MOTUWETHFRSA Protocol: Dose Management Condition: Thursday Dose/Route: 10 mg Instruction: 2 x 5 mg tablets Condition: Thursday Dose/Route: 7.5 mg Instruction: 1.5 x 5 mg tablets Condition: Thursday Dose/Route: 7.5 mg Instruction: 1.5 x 5 mg tablets Condition: Thursday Dose/Route: 7.5 mg Instruction: 1.5 x 5 mg tablets Condition: Dose/Route: 7.5 mg Instruction: 1.5 x 5 mg tablets Condition: Thursday Dose/Route: 7.5 mg Instruction: 1.5 x 5 mg tablets Condition: Thursday Dose/Route: 7.5 mg Instruction: 1.5 x 5 mg tablets Protocol Text: Adjustment Start Date: Thursday10/08/22 INR Value: 3.0 INR Date: 10/07/22 Recheck Date: 10/29/22 metoprolol tartrate 25 mg tablet 12.5 mg PO BID alpha lipoic acid 50 mg Capsule 50 mg PO DAILY Healthly Lung 1 tab PO/SL DAILY Referrals / Follow Up: Elizabeth Dale PA [Primary Care Provider] - Within 2 Weeks Desire Weldon PA [Med Staff - Adv Practice Prof] - Within 2 Weeks Disposition Disposition (needs filled in before D/C Order can be placed): Home, Self Care Charges/Coding Visit Charges Inpatient E&M: 91775 Disch Hosp >30min
== END 2022-10-13 11:57 | disposition home or self-care (01) ==
LOC: ED 07:28 → PCU 11:26
PROVIDERS: Family Medicine; Admitting Provider Internal Medicine; Emergency Provider Emergency Medicine; PCP Physician Assistant; Visit Provider Student in an Organized Health Care Education/Training Program
DX: I48.0 Paroxysmal atrial fibrillation (principal); I10 Essential (primary) hypertension; R55 Syncope and collapse; Z86.16 Personal history of COVID-19; Z79.899 Other long term (current) drug therapy; Z79.01 Long term (current) use of 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; G47.33 Obstructive sleep apnea (adult) (pediatric); J45.909 Unspecified asthma, uncomplicated; M19.90 Unspecified osteoarthritis, unspecified site
CPT/HCPCS: 36415; 71045; 80048; 84439; 84443; 84481; 84484; 85025; 85610; 93005; 93306; 97162; 97165; 99221; 99285; A4216; G0378

== ENCOUNTER 2022-10-13 22:58 | Emergency (ER) | payer BC, SELFPAY ==
[2022-10-13 22:59] VITALS: BP 160/98; PULSE 71; RESP 20; TEMP 37; O2SAT 100; BMI 26.6
--- NOTE | 2022-10-13 23:11 | RAD_ITS ---
INDICATION: chest pain EXAMINATION/TECHNIQUE: X-RAY - XR Chest 1 View COMPARISON: 10/12/2022. FINDINGS: LINES/DEVICES: None. LUNGS: No consolidation, edema or effusion. No pneumothorax. MEDIASTINUM AND CARDIOVASCULAR STRUCTURES: Cardiac silhouette not enlarged. Central airways and mediastinal contour are unremarkable. BONES AND SOFT TISSUES: Unremarkable. RAD/Chest 1 View (Portable) IMPRESSION: No radiographic evidence of acute cardiopulmonary disease. Electronically Signed: Esha Massey MD at 23:38 EST Reading Location ID and State: [id number] / Tel , Service support ,
--- NOTE | 2022-10-13 23:11 | EKG12_ITS ---
Test Reason : DYSRHYTHMIA Blood Pressure : / mmHG Vent. Rate : 065 BPM Atrial Rate : 065 BPM P-R Int : 194 ms QRS Dur : 086 ms QT Int : 388 ms P-R-T Axes : 062 -11 047 degrees QTc Int : 403 ms Normal sinus rhythm Normal ECG Confirmed by DOMINGO BAILEY, AIDE ([id number]), pictures editor MEGAN GUTIERREZ ([id number]) on 10/14/2022 11:30:25 AM Referred By: INNA Confirmed By:AIDE LANE MD
[2022-10-13 23:44] LABS: Absolute Lymphocyte Count 1.52 X10^3/uL (0.83-4.51); Absolute Neutrophil Count 4.3 X10^3/uL (2.0-7.7); Basophil# 0.07 X10^3/uL; Eosinophil# 0.51 X10^3/uL; Eosinophils% 7.1 % (0-5); Hematocrit 36.5 % (37-47); Hemoglobin 11.5 g/dL (12.0-15.0); Lymphocyte # 1.52 X10^3/ul (0.83-4.51); Lymphocyte % 21.3 % (19-41); Mean Corp Hgb Conc 31.5 g/dL (32-36); Mean Corpuscular Hgb 31.7 pg (27.0-32.0); Mean Corpuscular Volume 100.6 fL (81-99); Mean Platelet Vol. 12.8 fl (6.2-12.0); Monocyte# 0.75 X10^3/uL; Monocyte% 10.5 % (0-10); NRBC Flagged by Analyzer 0 % (0-5); Neutrophil # 4.27 X10^3/uL (2.7-7.7); Neutrophil % 59.8 % (47-70); Platelet Count 171 K/mm3 (150-450); RBC Distribution Width CV 13.7 % (11.6-14.6); Red Blood Count 3.63 M/mm3 (4.2-5.4); White Blood Count 7.1 K/mm3 (4.4-11.0)
--- NOTE | 2022-10-13 23:47 | EX.ED.DYSGE1 ---
HPI History of Present Illness Chief Complaint: Syncope Narrative Narrative: 76-year-old female presenting with a syncopal episode. Patient states that she was just in the hospital yesterday and overnight for near syncope. This was due to A-fib which was under control in the hospital. Patient states she had an echocardiogram done today which was normal. Her blood work was rechecked and her cardiac enzymes had stabilized. Apparently these did go up initially because of A-fib with RVR. Patient states that he was helping in the kitchen to make food and she felt it coming on. She denies any chest pain. She did not feel any palpitations. Her family member caught her and she did not fall to the floor. 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 Near syncope PRAMOD (obstructive sleep apnea) Osteoarthritis Osteopenia Paroxysmal atrial fibrillation Shortness of breath Varicose vein of leg Vestibular neuritis Home Medications cholecalciferol (vitamin D3) 25 mcg (1,000 unit) tablet 1,000 unit PO BID vitamin 03/10/16 [History Last Taken 10/11/22] latanoprost 0.005 % eye drops 1 drp EACH EYE [facility] eye health 03/10/16 [History Last Taken 10/11/22] coenzyme Q10 50 mg chewable tablet 30 mg PO DAILY 06/07/19 [History Last Taken 10/11/22] prasterone (dhea) 25 mg capsule (DHEA) 15 mg PO DAILY 07/27/20 [History Last Taken 10/11/22] timolol 0.25 % eye drops 1 drp ophthalmic (eye) BID 12/02/21 [History Last Taken 10/11/22] Healthly Lung 1 tab PO/SL DAILY covid 10/12/22 [History Last Taken 10/11/22] alpha lipoic acid 50 mg capsule 50 mg PO DAILY supplement 10/12/22 [History Last Taken 10/11/22] metoprolol tartrate 25 mg tablet 12.5 mg PO BID afib 10/12/22 [History Last Taken 10/11/22] warfarin 5 mg tablet 7.5 mg PO MOTUWETHFRSA 10/12/22 [History Last Taken 10/11/22] warfarin 5 mg tablet 10 mg PO JONAS afib 10/12/22 [History Last Taken 10/05/22] Allergy/AdvReac Type Severity Reaction Status Date / Time cat dander Allergy Mild congestion Verified 10/13/22 23:02 grass pollen Allergy Mild Cough, Verified 10/13/22 23:02 rhinitis house dust Allergy Mild Cough, Verified 10/13/22 23:02 rhinitis mold Allergy Mild Cough, Verified 10/13/22 23:02 rhinitis tree and shrub pollen Allergy Mild Cough, Verified 10/13/22 23:02 rhinitis Sulfa (Sulfonamide Allergy Itching Verified 10/13/22 23:02 Antibiotics) losartan AdvReac Severe dizziness, Verified 10/13/22 23:02 severe amlodipine AdvReac Intermediate dizziness Verified 10/13/22 23:02 lisinopril AdvReac Intermediate Nagging Verified 10/13/22 23:02 dry cough Benzodiazepines AdvReac Other Verified 10/13/22 23:02 diazepam [From Valium] AdvReac Other Verified 10/13/22 23:02 Family History Father Myocardial infarction from [place] age 61 Heart disease Diabetes Sister Breast cancer Surgical History History of carpal tunnel release History of cataract surgery History of tonsillectomy history TMJ surgery history vein surgery S/P excision of Ramos's neuroma Social History household members: spouse housing: house Smoking Status: Never smoker alcohol intake: current alcohol intake frequency: a few times a month substance use type: does not use what type of physical activity do you participate in: none do you feel safe at home: Yes ROS ROS ED Constitutional Constitutional ED: Denies chills, fever(s) or sweats Eyes Eyes: Denies blurry vision or change in vision ENT ENT ED: Denies ear pain or sore throat Cardiovascular Cardiovascular: Reports other Details: Syncopal episode ; Denies chest pain, palpitations or racing heartbeat Respiratory/Chest Respiratory/Chest: Denies cough, dyspnea or sputum Gastrointestinal Gastrointestinal: Denies abdominal pain, constipation, diarrhea, nausea or vomiting Genitourinary Genitourinary ED: Denies dysuria, hematuria or urinary frequency Musculoskeletal Musculoskeletal: Denies arthralgias, myalgias or neck pain Integumentary Denies abscess, Abrasions or rash Neurologic Neurologic: Denies headache(s), paresthesias or weakness Psychiatric Psychiatric: Denies anxiety, depression, suicidal ideation or suicidal thoughts Endocrine Endocrinology: Denies polydipsia or polyuria EXAM Physical Exam Const Vital Signs: 10/13/22 22:59 10/13/22 22:59 10/13/22 23:20 Temperature 98.6 F Temperature Source Oral Pulse Rate 71 Pulse Rate [Lying] Pulse Rate [Sitting (for 1 minute prior to obtaining)] Pulse Rate [Standing (for 1 minute prior to obtaining)] Respiratory Rate 20 H Respiratory Effort Normal Respiratory Pattern Normal Blood Pressure 160/98 H Blood Pressure [Lying] Blood Pressure [Sitting (for 1 minute prior to obtaining)] Blood Pressure [Standing (for 1 minute prior to obtaining)] Blood Pressure Mean 118 Blood Pressure Mean [Lying] Blood Pressure Mean [Sitting (for 1 minute prior to obtaining)] Blood Pressure Mean [Standing (for 1 minute prior to obtaining)] Pulse Ox 100 Oxygen Delivery Method Room Air Room Air 10/14/22 00:03 Temperature Temperature Source Pulse Rate Pulse Rate [Lying] 74 Pulse Rate [Sitting (for 1 minute prior to obtaining)] 73 Pulse Rate [Standing (for 1 minute prior to obtaining)] 78 Respiratory Rate Respiratory Effort Respiratory Pattern Blood Pressure Blood Pressure [Lying] 166/74 H Blood Pressure [Sitting (for 1 minute prior to obtaining)] 163/79 H Blood Pressure [Standing (for 1 minute prior to obtaining)] 159/80 H Blood Pressure Mean Blood Pressure Mean [Lying] 104 Blood Pressure Mean [Sitting (for 1 minute prior to obtaining)] 107 Blood Pressure Mean [Standing (for 1 minute prior to obtaining)] 106 Pulse Ox Oxygen Delivery Method General Appearance ED: Negative for pallor HEENT Reports normocephalic, head/scalp atraumatic and moist mucous membranes Eyes PERRL and EOMs intact bilaterally Neck no lymphadenopathy and supple Chest Wall inspection of chest normal and palpation of chest normal Resp normal respiratory effort and clear to auscultation bilaterally Auscultation: Negative for rales, rhonchi or wheezes Cardio regular rate and regular rhythm GI normal to inspection, nondistended, normoactive bowel sounds and non-distended Auscultation: normoactive bowel sounds Palpation: soft Narrative: Deferred Extremity normal to inspection General Extremety ED: Negative for edema or tenderness General Extremity: Negative for edema Neuro oriented x3 and CN's II-XII intact bilaterally Sensorium / Orientation: alert Motor Exam: strength 5/5 throughout Psych mental status grossly normal Attitude: No agitated Skin no rashes or lesions noted and no wounds General Skin Exam: Negative for jaundice or pallor MDM MDM MDM Narrative Medical decision making narrative: Patient with syncopal episode. She states she just left the hospital today. She had an echocardiogram done this morning which showed EF of 60%. Review of her blood work showed that her troponin did initially jump greater than 20 points from 6 to 31. This improved to 6. She states she saw Dr. Garsia in the hospital. She was discharged home. She is feeling otherwise well. She states that she was helping in the kitchen and felt it coming on and was lowered to the ground. She did not lose bladder control or bowel control. It was no seizure-like activity. Patient initially called 24-hour nurses line and was told to come to the emergency room. She is well-appearing currently. She has family with her. They state that she is acting at her baseline. Will check orthostatic vital signs. CBC to assess platelet cell count, hemoglobin, platelets, differential. BMP to assess renal function and electrolytes. High sensitive troponin also ordered as well as a EKG and chest x-ray. EKG on my interpretation shows normal sinus rhythm with a ventricular to 65 bpm without sign of ischemic change or dysrhythmia. Chest x-ray my interpretation shows no acute process. CBC shows no leukocytosis. Hemoglobin stable at 11.5. No significant interval change since yesterday. Platelets normal at 171. No left shift. GFR and creatinine normal. Electrolytes within normal limits. INR therapeutic at 3.0. Orthostatic vital signs were negative. High-sensitivity troponins as a seem to was this morning. Patient stable for discharge by Mullan syncope rule. She was also just admitted and had echocardiogram done this morning. Follow-up with cardiology. Return precautions were discussed. Impression: 1. Syncope 2. History of A-fib Lab Data Labs: Laboratory Results - last 24 hr 10/13/22 10/13/22 10/13/22 23:39 23:39 23:39 WBC 7.1 RBC 3.63 L Hgb 11.5 L Hct 36.5 L MCV 100.6 H MCH 31.7 MCHC 31.5 L RDW Std Deviation 51.0 H RDW Coeff of Dulce 13.7 Plt Count 171 MPV 12.8 H Immature Gran % (Auto) 0.300 Neut % (Auto) 59.8 Lymph % (Auto) 21.3 Dyer % (Auto) 10.5 H Eos % (Auto) 7.1 H Baso % (Auto) 1.0 Absolute Neuts (auto) 4.3 Absolute Lymphs (auto) 1.52 Nucleated RBC % 0 PT 30.7 H INR 3.0 Sodium 140 Potassium 4.0 Chloride 107 Carbon Dioxide 24.0 Anion Gap 9 BUN 23 H Creatinine 0.77 Estim Creat Clear Calc 43.07 Est GFR (MDRD) Af Amer 94 Est GFR (MDRD) Non-Af 78 BUN/Creatinine Ratio 30.0 H Glucose 107 H Calcium 9.2 Troponin I High Sens 6 Radiography Diagnostic Testing: Clinical Impression(s) from Imaging Studies Chest X-Ray 10/13/22 23:11 IMPRESSION: No radiographic evidence of acute cardiopulmonary disease. Electronically Signed: Esha Massey MD at 23:38 EST Reading Location ID and State: [id number] / Tel , Service support , Discharge Plan Triage Chief Complaint: Syncope ED Provider: Ignacio Fay Dx/Rx/DC Orders Prescriptions: No Action prasterone (dhea) [DHEA] 25 mg capsule 15 mg PO DAILY timolol 0.25 % drops 1 drp ophthalmic (eye) BID latanoprost 1 DROP bottle 1 drp EACH EYE QHS cholecalciferol (vitamin D3) 1,000 UNIT tablet 1,000 unit PO BID coenzyme Q10 50 MG tablet,chewable 30 mg PO DAILY warfarin 5 mg tablet 10 mg PO JONAS warfarin 5 mg tablet 7.5 mg PO AGUSTINA Protocol: Dose Management Condition: Thursday Dose/Route: 10 mg Instruction: 2 x 5 mg tablets Condition: Thursday Dose/Route: 7.5 mg Instruction: 1.5 x 5 mg tablets Condition: Thursday Dose/Route: 7.5 mg Instruction: 1.5 x 5 mg tablets Condition: Thursday Dose/Route: 7.5 mg Instruction: 1.5 x 5 mg tablets Condition: Dose/Route: 7.5 mg Instruction: 1.5 x 5 mg tablets Condition: Thursday Dose/Route: 7.5 mg Instruction: 1.5 x 5 mg tablets Condition: Thursday Dose/Route: 7.5 mg Instruction: 1.5 x 5 mg tablets Protocol Text: Adjustment Start Date: Thursday10/08/22 INR Value: 3.0 INR Date: 10/07/22 Recheck Date: 10/29/22 metoprolol tartrate 25 mg tablet 12.5 mg PO BID alpha lipoic acid 50 mg Capsule 50 mg PO DAILY Healthly Lung 1 tab PO/SL DAILY Primary Care Provider: Elizabeth Dale Referrals: Elizabeth Dale PA [Primary Care Provider] -
[2022-10-13 23:55] LABS: Prothrombin Time (Protime)PT. 30.7 SECONDS (11.7-14.9)
[2022-10-14 00:03] VITALS: BP 159/80; BP 163/79; BP 166/74; PULSE 73; PULSE 74; PULSE 78
[2022-10-14 00:04] LABS: Anion Gap 9 (5-15); BUN 23 mg/dL (7-18); Calcium,Total 9.2 mg/dL (8.5-10.1); Chloride 107 mmol/L (98-107); Creatinine, Serum 0.77 mg/dL (0.55-1.02); EST Glomerular Filtration Rate 78 mL/min (>60); Est Glom Filt Rate - Afr Amer 94 mL/min (>60); Estimated Creatinine Clearance 43.07 ml/min; Glucose 107 mg/dL (74-106); Sodium Level 140 mmol/L (136-145); Troponin-I HS 6 pg/mL (3.0-54.0)
== END 2022-10-14 00:25 | disposition home or self-care (01) ==
PROVIDERS: Emergency Provider Student in an Organized Health Care Education/Training Program; PCP Physician Assistant; Visit Provider Student in an Organized Health Care Education/Training Program
DX: R55 Syncope and collapse (principal); I48.91 Unspecified atrial fibrillation; I10 Essential (primary) hypertension; Z79.01 Long term (current) use of 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
CPT/HCPCS: 71045; 80048; 84484; 85025; 85610; 93005; 99285; A4216

== ENCOUNTER 2022-11-04 16:00 | Outpatient (RCR) | payer BC, SELFPAY | END 2022-11-04 19:00 | disposition home or self-care (01) | LOC: PT 16:00 | PROVIDERS: PCP Physician Assistant; Visit Provider Physician Assistant | DX: H81.21 Vestibular neuronitis, right ear (principal) | CPT/HCPCS: 97161 ==

== ENCOUNTER 2022-11-05 14:16 | Outpatient (RCR) | payer BC, SELFPAY ==
[2022-10-21 19:48] VITALS: BMI 24.5
[2022-11-05 14:56] LABS: International Normalized Ratio 3.1; Prothrombin Time (Protime)PT. 31.7 SECONDS (11.7-14.9)
== END 2022-11-21 21:24 | disposition home or self-care (01) ==
LOC: LAB 14:16
PROVIDERS: PCP Physician Assistant; Referring Provider Nurse Practitioner Family; Visit Provider Nurse Practitioner Family
DX: I48.0 Paroxysmal atrial fibrillation (principal); Z79.01 Long term (current) use of 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
CPT/HCPCS: 36415; 85610

== ENCOUNTER 2022-12-05 09:19 | Outpatient (RCR) | payer BC, SELFPAY ==
[2022-11-21 21:24] VITALS: BMI 24.5
[2022-11-26 15:22] LABS: International Normalized Ratio 3.1; Prothrombin Time (Protime)PT. 31.6 SECONDS (11.7-14.9)
[2022-12-05 09:51] LABS: International Normalized Ratio 2.2; Prothrombin Time (Protime)PT. 24.1 SECONDS (11.7-14.9)
== END 2022-12-21 00:28 | disposition home or self-care (01) ==
LOC: LAB 09:19
PROVIDERS: PCP Physician Assistant; Referring Provider Nurse Practitioner Family; Visit Provider Nurse Practitioner Family
DX: I48.0 Paroxysmal atrial fibrillation (principal); Z79.01 Long term (current) use of 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
CPT/HCPCS: 36415; 85610

== ENCOUNTER 2023-01-09 09:50 | Outpatient (RCR) | payer BC, SELFPAY ==
[2022-12-21 00:28] VITALS: BMI 24.5
[2023-01-09 10:51] LABS: International Normalized Ratio 1.9; Prothrombin Time (Protime)PT. 22.3 SECONDS (11.7-14.9)
== END 2023-01-09 11:00 | disposition home or self-care (01) ==
LOC: LAB 09:50
PROVIDERS: PCP Physician Assistant; Referring Provider Nurse Practitioner Family; Visit Provider Nurse Practitioner Family
DX: I48.0 Paroxysmal atrial fibrillation (principal); Z79.01 Long term (current) use of 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
CPT/HCPCS: 36415; 85610

== ENCOUNTER 2023-02-05 14:50 | Outpatient (RCR) | payer BC, SELFPAY ==
[2023-01-22 08:06] VITALS: BMI 24.5
[2023-02-05 15:30] LABS: International Normalized Ratio 2.5; Prothrombin Time (Protime)PT. 27.1 SECONDS (11.7-14.9)
== END 2023-02-05 18:00 | disposition home or self-care (01) ==
LOC: LAB 14:50
PROVIDERS: PCP Physician Assistant; Referring Provider Nurse Practitioner Family; Visit Provider Nurse Practitioner Family
DX: I48.0 Paroxysmal atrial fibrillation (principal); Z79.01 Long term (current) use of 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
CPT/HCPCS: 36415; 85610

== ENCOUNTER 2023-03-16 16:13 | Outpatient (RCR) | payer BC, SELFPAY ==
[2023-02-20 21:03] VITALS: BMI 24.5
[2023-03-16 17:29] LABS: International Normalized Ratio 1.9; Prothrombin Time (Protime)PT. 21.9 SECONDS (11.7-14.9)
== END 2023-03-23 23:35 | disposition home or self-care (01) ==
LOC: LAB 16:13
PROVIDERS: PCP Physician Assistant; Referring Provider Nurse Practitioner Family; Visit Provider Nurse Practitioner Family
DX: I48.0 Paroxysmal atrial fibrillation (principal); Z79.01 Long term (current) use of 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
CPT/HCPCS: 36415; 85610

== ENCOUNTER 2023-03-30 14:12 | Outpatient (RCR) | payer BC, SELFPAY ==
[2023-03-23 23:35] VITALS: BMI 24.5
[2023-03-30 14:58] LABS: International Normalized Ratio 2.5; Prothrombin Time (Protime)PT. 26.9 SECONDS (11.7-14.9)
== END 2023-03-30 18:00 | disposition home or self-care (01) ==
LOC: LAB 14:12
PROVIDERS: PCP Physician Assistant; Referring Provider Nurse Practitioner Family; Visit Provider Nurse Practitioner Family
DX: I48.0 Paroxysmal atrial fibrillation (principal); Z79.01 Long term (current) use of 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
CPT/HCPCS: 36415; 85610

== ENCOUNTER 2023-05-01 13:30 | Outpatient (RCR) | payer BC, SELFPAY ==
[2023-04-23 21:48] VITALS: BMI 24.5
[2023-05-01 14:52] LABS: International Normalized Ratio 2.8; Prothrombin Time (Protime)PT. 29.6 SECONDS (11.7-14.9)
== END 2023-05-01 18:00 | disposition home or self-care (01) ==
LOC: LAB 13:30
PROVIDERS: Internal Medicine Cardiovascular Disease; PCP Physician Assistant; Referring Provider Nurse Practitioner Family; Visit Provider Nurse Practitioner Family
DX: I48.0 Paroxysmal atrial fibrillation (principal); Z79.01 Long term (current) use of 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
CPT/HCPCS: 36415; 85610

== ENCOUNTER 2023-05-12 11:30 | Outpatient (RCR) | payer BC, SELFPAY ==
--- NOTE | 2023-05-05 11:12 | HP.PTEVAL_ITS ---
Patient's Visit Information Visit Information Visit Information: CROW BARTHOLOMEW is a 77 year old F referred to Physical Therapy by JEANNIE Pires with a diagnosis of BPPV B vestibular disorder. Date of Evaluation: 05/05/23 Physical Therapist: Ousmane Montero, LUIST, OCS, CSCS Visit Plan Frequency: 2x /Week Duration: 4-6 Weeks Plan: 2x/week for 4-6 weeks 1. balalnce exercises with head movement including tunrs, nods, VOR with semi tandem stance and progressing to walking and turning and bending as safety allows progressing to HEP 2. Please give more aggressive overall body strength for HEpo including squats, lunges, heel raises, step ups, rows, pot stirs, pull downs, shoulder press and transfer off floor and work to I at home with pics. (already doing hip abd, ext, minisquats, bridges, fire hydrants and VOR seated at home.) Pt to bring cane for set up and instruct for safety option at home. 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 Has been seen in therapy for balance and is doing HEP., Wants to walk to [place] and is all over the place. May be part emotional but she stumbles alot, has lost . Last PT was 6 months ago. No spinniing, no dizzyness, just unsteady. Unsteady since balance therapy 10 yrs ago ying lost nerve but maybe a little worse now. Does not use cane or walker but realize she may need to. Dog also. Has had a fall recently which was a few months ago tripping on stepping stone. Worse walking on uneven surfaces in garden. Sleep is not great due to stress of losing and dog, has mild sleep apnea and afib. On blood thinner for afib. Not employed Spends day packing to move out of house after living there for 30 years. Exercises: just what given by last PT: strengthening legs at counter. Basic ADLs: Yes slowly. Objective Objective: Walks into PT I. Trasnfers I. is wobbly if I make her move her head with ambulation. Steps with one rail reciprocally. cervical and UE/AROM WFL. - B hallpike tyra, - roll test. oculomotor exam in sitting unremarkable: no nystagmus with gaze or head shake. - skew eye deviaiton - ocular tilt normal pursuit and saccades. Normal VOR and no symptoms. harder in standing. Balance slade but unable to create any spinning today and pt c/o are more unsteadiness. Balance/Special Test Scores Functional Gait Assessment Score: 23 % Disability: 23.3400 CATSIB Score (Max score 120 seconds): 120 Dizziness Score: 34 Goals Goal 1:: Walk with head movements without unsteadiness. Goal Time Frame: 4-6 Weeks Goal 2:: 25/30 FGA Goal Time Frame: 4-6 Weeks Goal 3:: pt I iin appropriate head movement balance ex and more agressive home strength. Goal Time Frame: 4-6 Weeks Goal 4:: 20 or less DHI score Goal Time Frame: 4-6 Weeks Rehabilitation Potential Physical Therapy Diagnosis: Unsteadiness and balance impairments limiting function at home Rehabilitation Potential: Fair Anticipated Interventions Patient/Client Instruction: Educate patient on: Condition and Plan of Care For the Purpose of:: To improve muscle performance and motor function, To increase tolerance to activity/condition/position and To improve gait and locomotor functions Therapeutic Exercise to Include: Strength training, Balance training, Postural training and Gait and locomotor training For the Purpose of:: To increase tolerance to activity/condition/position, To improve ability of physical actions for home/community/work/leisure, To improve gait and locomotor functions and To improve safety with gait Text: Thank you for the opportunity to evaluate your patient. For Medicare and Medicare HMO plans, please review the plan of care and approve it. It will need to be FAXED BACK to us at [phone] for Medicare purposes. For Medicare only, by signing this I certify the plan of care. Please let me know if there are questions or concerns regarding this plan of car e. Physician Signature: Date:
--- NOTE | 2023-06-30 16:53 | HP.PT.NRP ---
Patient Information Patient Information: CROW BARTHOLOMEW was seen in my office for initial evaluation on 05/05/23. The following Plan of Care was established for this patient: POC Established Initial Frequency: 2x /Week Initial Duration: 4-6 Weeks Anticipated Interventions Patient/Client Instruction: Educate patient on: Condition and Plan of Care For the Purpose of:: To improve muscle performance and motor function, To increase tolerance to activity/condition/position and To improve gait and locomotor functions Therapeutic Exercise to Include: Strength training, Balance training, Postural training and Gait and locomotor training For the Purpose of:: To increase tolerance to activity/condition/position, To improve ability of physical actions for home/community/work/leisure, To improve gait and locomotor functions and To improve safety with gait Last Seen Last Seen: This patient was last seen in our office 05/12/23. Pertinent comments regarding their Physical therapy will appear below: Pt seen 3 visits of POC and did not attend any further visits. At this point, it has been over 6 weeks and I will discontinue due to nonattendance At this point I will be discontinuing this patient from physical therapy. I would be happy to see this patient again in the future if found appropriate by the physician. Thank you! Ousmane Montero, DPT, OCS, CSCS Balance/Gait/Functional tests Balance/Special Test Scores Functional Gait Assessment Score: 23 % Disability: 23.3400 CATSIB Score (Max score 120 seconds): 120 Dizziness Score: 34
== END 2023-05-12 19:00 | disposition home or self-care (01) ==
LOC: PT 11:30
PROVIDERS: PCP Physician Assistant; Referring Provider Physician Assistant; Visit Provider Physician Assistant
DX: H81.13 Benign paroxysmal vertigo, bilateral (principal)
CPT/HCPCS: 97110; 97116; 97162

== ENCOUNTER 2023-06-16 11:33 | Outpatient (RCR) | payer BC, SELFPAY ==
[2023-05-24 00:45] VITALS: BMI 24.5
== END 2023-06-16 18:00 | disposition home or self-care (01) ==
LOC: LAB 11:33
PROVIDERS: PCP Physician Assistant; Referring Provider Nurse Practitioner Family; Visit Provider Nurse Practitioner Family
DX: I48.0 Paroxysmal atrial fibrillation (principal); Z79.01 Long term (current) use of 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

== ENCOUNTER 2023-07-01 08:32 | Outpatient (RCR) | payer BC, SELFPAY | END 2023-07-01 08:33 | disposition home or self-care (01) | LOC: PT 08:32 | PROVIDERS: PCP Physician Assistant; Visit Provider Physician Assistant | DX: H81.13 Benign paroxysmal vertigo, bilateral (principal) ==

== ENCOUNTER 2023-07-15 12:14 | Outpatient (RCR) | payer BC, SELFPAY ==
[2023-06-23 22:41] VITALS: BMI 24.5
== END 2023-07-23 18:00 | disposition home or self-care (01) ==
LOC: LAB 12:14
PROVIDERS: PCP Physician Assistant; Referring Provider Nurse Practitioner Family; Visit Provider Nurse Practitioner Family
DX: I48.0 Paroxysmal atrial fibrillation (principal); Z79.01 Long term (current) use of 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

== ENCOUNTER 2023-07-29 15:07 | Outpatient (RCR) | payer BC, SELFPAY ==
[2023-07-24 02:58] VITALS: BMI 24.5
[2023-07-29 15:20] LABS: INR Fingerstick 2.9; Prothrombin Time Fingerstick 31.1 SEC (11.7-14.9)
== END 2023-08-23 18:00 | disposition home or self-care (01) ==
LOC: LAB 15:07
PROVIDERS: PCP Physician Assistant; Referring Provider Nurse Practitioner Family; Visit Provider Nurse Practitioner Family
DX: I48.0 Paroxysmal atrial fibrillation (principal); Z79.01 Long term (current) use of 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
CPT/HCPCS: 36416; 85610

== ENCOUNTER 2023-08-09 14:59 | Emergency (ER) | payer BC, SELFPAY ==
[2023-08-09 15:00] VITALS: BP 153/84; PULSE 68; RESP 18; TEMP 35.7; O2SAT 99
[2023-08-09 15:03] VITALS: BMI 26.4
--- NOTE | 2023-08-09 15:46 | EKG12_ITS ---
Test Reason : Blood Pressure : / mmHG Vent. Rate : 110 BPM Atrial Rate : 288 BPM P-R Int : 000 ms QRS Dur : 078 ms QT Int : 336 ms P-R-T Axes : 000 -08 030 degrees QTc Int : 454 ms Atrial fibrillation with variable A-V block with premature ventricular or aberrantly conducted comple xes Nonspecific T wave abnormality Abnormal ECG Confirmed by ANGELA BAILEY, HERMAN ([id number]), assistant editor MEGAN GUTIERREZ ([id number]) on 08/10/2023 1:08:35 PM Referred By: TERA Confirmed By:HERMAN MILLER MD
--- NOTE | 2023-08-09 16:17 | EX.ED.UPPERE ---
HPI <JEANNIE Pool - Last Filed: 08/09/23 18:33> History of Present Illness Chief Complaint: Upper Extremity Injury Narrative Narrative: Patient presenting today with right wrist pain that she has had over the past 2 and half months. She reports that she lost her and had to move out of her home, she was moving a lot of heavy boxes and began to develop right wrist pain. She did see her PCP for this and an x-ray of the right wrist was obtained, she was told that the x-ray did not show any fractures but did show a little bit of arthritis. She did make an appointment with orthopedics and was told to perform RICE instructions. Her wrist did seem to get better so she canceled her orthopedic appointment. However, she has been moving boxes again and overdoing it and now her wrist pain is worse. She saw her PCP again a few days ago and was given a prescription for Vicodin and prednisone. She was scared to take the prednisone due to her history of A-fib. She is now presenting here for evaluation. She denies any injury to her wrist or paresthesias to her right upper extremity. [facility] <JEANNIE Pool - Last Filed: 08/09/23 18:33> [facility] Medical History Asthma Atrial tachycardia (10/14/18) Change in bowel habit Chronic venous insufficiency Essential (primary) hypertension Glaucoma group home (current) use of 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 Near syncope PRAMOD (obstructive sleep apnea) Osteoarthritis Osteopenia Paroxysmal atrial fibrillation Shortness of breath Varicose vein of leg Vestibular neuritis Home Medications cholecalciferol (vitamin D3) 25 mcg (1,000 unit) tablet 1,000 unit PO BID vitamin 03/10/16 [History Last Taken 10/11/22] latanoprost 0.005 % eye drops 1 drp EACH EYE [facility] eye health 03/10/16 [History Last Taken 10/11/22] coenzyme Q10 50 mg chewable tablet 30 mg PO DAILY 06/07/19 [History Last Taken 10/11/22] prasterone (dhea) 25 mg capsule (DHEA) 15 mg PO DAILY 07/27/20 [History Last Taken 10/11/22] timolol 0.25 % eye drops 1 drp ophthalmic (eye) BID 12/02/21 [History Last Taken 10/11/22] Healthly Lung 1 tab PO/SL DAILY covid 10/12/22 [History Last Taken 10/11/22] alpha lipoic acid 50 mg capsule 50 mg PO DAILY supplement 10/12/22 [History Last Taken 10/11/22] metoprolol tartrate 25 mg tablet 12.5 mg PO BID afib 10/12/22 [History Last Taken 10/11/22] warfarin 5 mg tablet 10 mg PO JONAS afib 10/12/22 [History Last Taken 10/05/22] warfarin 5 mg tablet 7.5 mg PO DAILY #135 tabs 01/20/23 [Rx Last Taken Unknown] Allergy/AdvReac Type Severity Reaction Status Date / Time cat dander Allergy Mild congestion Verified 08/09/23 15:00 grass pollen Allergy Mild Cough, Verified 08/09/23 15:00 rhinitis house dust Allergy Mild Cough, Verified 08/09/23 15:00 rhinitis mold Allergy Mild Cough, Verified 08/09/23 15:00 rhinitis tree and shrub pollen Allergy Mild Cough, Verified 08/09/23 15:00 rhinitis Sulfa (Sulfonamide Allergy Itching Verified 08/09/23 15:00 Antibiotics) losartan AdvReac Severe dizziness, Verified 08/09/23 15:00 severe amlodipine AdvReac Intermediate dizziness Verified 08/09/23 15:00 lisinopril AdvReac Intermediate Nagging Verified 08/09/23 15:00 dry cough Benzodiazepines AdvReac Other Verified 08/09/23 15:00 diazepam [From Valium] AdvReac Other Verified 08/09/23 15:00 Family History Father Myocardial infarction from [place] age 61 Heart disease Diabetes Sister Breast cancer 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 Surgical History History of carpal tunnel release History of cataract surgery History of tonsillectomy history TMJ surgery history vein surgery S/P excision of Ramos's neuroma Social History household members: spouse housing: house Smoking Status: Never smoker alcohol intake: current alcohol intake frequency: a few times a month substance use type: does not use what type of physical activity do you participate in: none do you feel safe at home: Yes ROS <JEANNIE Pool - Last Filed: 08/09/23 18:33> ROS ED Constitutional Constitutional ED: Denies chills or fever(s) Cardiovascular Cardiovascular: Denies chest pain Respiratory/Chest Respiratory/Chest: Denies cough or dyspnea Gastrointestinal Gastrointestinal: Denies abdominal pain, nausea or vomiting Musculoskeletal Musculoskeletal: Reports arthralgias; Denies myalgias Integumentary Denies rash Neurologic Neurologic: Denies paresthesias or weakness EXAM <JEANNIE Pool - Last Filed: 08/09/23 18:33> Physical Exam Const Vital Signs: 08/09/23 15:00 Temperature 96.3 F L Temperature Source Temporal Pulse Rate 68 Respiratory Rate 18 Blood Pressure 153/84 H Blood Pressure Mean 107 Pulse Ox 99 Oxygen Delivery Method Room Air Positive well nourished, well developed and no apparent distress General Appearance ED: well developed HEENT Reports normocephalic and head/scalp atraumatic Mouth ED: Yes moist mucous membranes normal Eyes PERRL and EOMs intact bilaterally Neck full ROM and supple Chest Wall inspection of chest normal Resp normal respiratory effort and clear to auscultation bilaterally Cardio regular rate and regular rhythm GI soft to palpation, non-tender, non-distended and no masses Back/Spine normal ROM and normal to inspection Extremity normal to inspection and full ROM Extremity Narrative: Pain to the ulnar aspect of the right wrist and pain with ulnar deviation of the right wrist. No snuffbox tenderness, radial pulse 2+, good capillary refill, sensation intact. Neuro oriented x3, CN's II-XII intact bilaterally, moves all extremities, no focal motor deficits and no sensory deficits noted Sensorium / Orientation: awake and alert Psych mental status grossly normal and thought process normal Skin no rashes or lesions noted and no wounds MDM <JEANNIE Pool - Last Filed: 08/09/23 18:33> MDM MDM Narrative Medical decision making narrative: Patient presenting with right wrist pain she has had over the past 2 and half months. She has been moving heavy boxes and, overdoing it. She recently saw her PCP and was prescribed Vicodin and prednisone, the Vicodin has been helping but she has not started the prednisone. She was told that this was likely tendinitis. She has pain to the ulnar aspect of her wrist with pain with ulnar deviation of the wrist. She already had an x-ray performed which was negative for fracture, she has had no injury to her wrist I do not think that we need to repeat an x-ray. I think the patient's pain is related to her recent move, she has been doing a lot of lifting and moving heavy boxes. I have encouraged her to take it easy and encouraged RICE instructions. She did have a appointment with orthopedics but canceled it because it was getting better, I have encouraged her to make another appointment with them to be seen. She will be given a wrist splint. Patient did mention to the nurses that she felt like she was in A-fib, she does have a history of paroxysmal A-fib, EKG was obtained that shows atrial flutter. On EKG she was slightly tachycardic but on repeat examination her heart rate is controlled. She is not experiencing any chest pain or shortness of breath, she reports that she can feel herself go in and out of A-fib occasionally. Patient did elope from the emergency department prior to the attending ED physician evaluating her. EKG Initial EKG: Comments: 110 bpm, atrial flutter with variable AV block, nonspecific T wave abnormality, no ST elevation, reviewed and interpreted by attending ED physician <Dr. Ignacio Fay, DO - Last Filed: 08/10/23 00:08> [facility] MDM Narrative Medical decision making narrative: Patient presenting with right wrist pain she has had over the past 2 and half months. She has been moving heavy boxes and, overdoing it. She recently saw her PCP and was prescribed Vicodin and prednisone, the Vicodin has been helping but she has not started the prednisone. She was told that this was likely tendinitis. She has pain to the ulnar aspect of her wrist with pain with ulnar deviation of the wrist. She already had an x-ray performed which was negative for fracture, she has had no injury to her wrist I do not think that we need to repeat an x-ray. I think the patient's pain is related to her recent move, she has been doing a lot of lifting and moving heavy boxes. I have encouraged her to take it easy and encouraged RICE instructions. She did have a appointment with orthopedics but canceled it because it was getting better, I have encouraged her to make another appointment with them to be seen. She will be given a wrist splint. Patient did mention to the nurses that she felt like she was in A-fib, she does have a history of paroxysmal A-fib, EKG was obtained that shows atrial flutter. On EKG she was slightly tachycardic but on repeat examination her heart rate is controlled. She is not experiencing any chest pain or shortness of breath, she reports that she can feel herself go in and out of A-fib occasionally. Patient did elope from the emergency department prior to the attending ED physician evaluating her. This patient was seen with a PA/TELECOMMUNICATIONS SWITCH TECHNICIAN Individually assessed they patient including history and physical. I have reviewed everything on the chart that is available and agree with the documentation provided by the PA/TELECOMMUNICATIONS SWITCH TECHNICIAN including discussion about the assessment, treatment plan, discussion, and return precautions. Patient seen and evaluated by the PA for pain in the right wrist which is nontraumatic in nature. She is already had an x-ray of the wrist. The plan was to put her in a Velcro wrist splint and continue RICE therapy. This was performed. Prior to my getting into room to evaluate the patient she had already eloped. Discharge Plan Triage Chief Complaint: Upper Extremity Injury ED Midlevel Provider: Yue Viera ED Provider: Ignacio Fay Dx/Rx/DC Orders Clinical Impression: Paroxysmal atrial fibrillation, Right wrist tendinitis Prescriptions: No Action prasterone (dhea) [DHEA] 25 mg capsule 15 mg PO DAILY timolol 0.25 % drops 1 drp ophthalmic (eye) BID latanoprost 1 DROP bottle 1 drp EACH EYE QHS cholecalciferol (vitamin D3) 1,000 UNIT tablet 1,000 unit PO BID coenzyme Q10 50 MG tablet,chewable 30 mg PO DAILY warfarin 5 mg tablet 10 mg PO JONAS Protocol: Dose Management Condition: Thursday Dose/Route: 7.5 mg Instruction: 1.5 x 5 mg tablets Condition: Thursday Dose/Route: 7.5 mg Instruction: 1.5 x 5 mg tablets Condition: Thursday Dose/Route: 7.5 mg Instruction: 1.5 x 5 mg tablets Condition: Thursday Dose/Route: 7.5 mg Instruction: 1.5 x 5 mg tablets Condition: Dose/Route: 7.5 mg Instruction: 1.5 x 5 mg tablets Condition: Thursday Dose/Route: 7.5 mg Instruction: 1.5 x 5 mg tablets Condition: Thursday Dose/Route: 7.5 mg Instruction: 1.5 x 5 mg tablets Protocol Text: Adjustment Start Date: 07/30/23 INR Value: 2.9 INR Date: 07/29/23 Recheck Date: 08/27/23 metoprolol tartrate 25 mg tablet 12.5 mg PO BID alpha lipoic acid 50 mg Capsule 50 mg PO DAILY [facility] 1 tab PO/SL DAILY warfarin 5 mg tablet 7.5 mg PO DAILY Qty: 135 3RF Protocol: Dose Management Condition: Thursday Dose/Route: 7.5 mg Instruction: 1.5 x 5 mg tablets Condition: Thursday Dose/Route: 7.5 mg Instruction: 1.5 x 5 mg tablets Condition: Thursday Dose/Route: 7.5 mg Instruction: 1.5 x 5 mg tablets Condition: Thursday Dose/Route: 7.5 mg Instruction: 1.5 x 5 mg tablets Condition: Dose/Route: 7.5 mg Instruction: 1.5 x 5 mg tablets Condition: Thursday Dose/Route: 7.5 mg Instruction: 1.5 x 5 mg tablets Condition: Thursday Dose/Route: 7.5 mg Instruction: 1.5 x 5 mg tablets Protocol Text: Adjustment Start Date: 07/30/23 INR Value: 2.9 INR Date: 07/29/23 Recheck Date: 08/27/23 Primary Care Provider: Elizabeth Dale Referrals: Elizabeth Dale PA [Primary Care Provider] - Disposition Disposition: Elopement Discharge Date/Time: 08/09/23 17:15
--- NOTE | 2023-08-09 17:14 | NURSING ---
patient left prior to being seen by physican. Encouraged to stay. Educated on risks.
== END 2023-08-09 17:15 | disposition left against medical advice (07) ==
LOC: ED 16:46
PROVIDERS: Emergency Provider Student in an Organized Health Care Education/Training Program; PCP Physician Assistant; Visit Provider Student in an Organized Health Care Education/Training Program
DX: M77.8 Other enthesopathies, not elsewhere classified (principal); I48.0 Paroxysmal atrial fibrillation; I10 Essential (primary) hypertension; X50.9XXA Other and unspecified overexertion or strenuous movements or postures, initial encounter; Y93.E6 Activity, residential relocation; Z79.899 Other long term (current) drug therapy; Z79.01 Long term (current) use of 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
CPT/HCPCS: 93005; 99283

== ENCOUNTER 2023-09-18 15:22 | Outpatient (RCR) | payer BC, SELFPAY ==
[2023-08-23 20:47] VITALS: BMI 24.5
[2023-09-18 15:35] LABS: INR Fingerstick 2.5; Prothrombin Time Fingerstick 25.2 SEC (11.7-14.9)
== END 2023-09-18 18:00 | disposition home or self-care (01) ==
LOC: LAB 15:22
PROVIDERS: PCP Physician Assistant; Referring Provider Nurse Practitioner Family; Visit Provider Nurse Practitioner Family
DX: I48.0 Paroxysmal atrial fibrillation (principal); Z79.01 Long term (current) use of 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
CPT/HCPCS: 36416; 85610

== ENCOUNTER 2023-10-26 14:37 | Outpatient (RCR) | payer BC, SELFPAY ==
[2023-09-23 21:33] VITALS: BMI 24.5
[2023-10-26 15:03] LABS: INR Fingerstick 2.3; Prothrombin Time Fingerstick 23.9 SEC (11.7-14.9)
== END 2023-11-21 18:00 | disposition home or self-care (01) ==
LOC: LAB 14:37
PROVIDERS: PCP Physician Assistant; Referring Provider Nurse Practitioner Family; Visit Provider Nurse Practitioner Family
DX: I48.0 Paroxysmal atrial fibrillation (principal); Z79.01 Long term (current) use of 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
CPT/HCPCS: 36416; 85610

== ENCOUNTER 2023-12-05 10:21 | Outpatient (RCR) | payer BC, SELFPAY ==
[2023-11-21 21:26] VITALS: BMI 24.5
[2023-12-05 10:43] LABS: INR Fingerstick 1.8; Prothrombin Time Fingerstick 19.1 SEC (11.7-14.9)
== END 2023-12-22 22:32 | disposition home or self-care (01) ==
LOC: LAB 10:21
PROVIDERS: PCP Physician Assistant; Referring Provider Nurse Practitioner Family; Visit Provider Nurse Practitioner Family
DX: I48.0 Paroxysmal atrial fibrillation (principal); Z79.01 Long term (current) use of 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
CPT/HCPCS: 36416; 85610

== ENCOUNTER 2023-12-28 15:39 | Outpatient (RCR) | payer BC, SELFPAY ==
[2023-12-22 22:33] VITALS: BMI 24.5
[2023-12-28 15:56] LABS: INR Fingerstick 2.5; Prothrombin Time Fingerstick 25.9 SEC (11.7-14.9)
== END 2023-12-28 18:00 | disposition home or self-care (01) ==
LOC: LAB 15:39
PROVIDERS: PCP Physician Assistant; Referring Provider Nurse Practitioner Family; Visit Provider Nurse Practitioner Family
DX: I48.0 Paroxysmal atrial fibrillation (principal); Z79.01 Long term (current) use of 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
CPT/HCPCS: 36416; 85610

== ENCOUNTER 2024-02-04 15:55 | Outpatient (RCR) | payer BC, SELFPAY ==
[2024-01-25 08:44] VITALS: BMI 24.5
[2024-02-08 15:27] LABS: INR Fingerstick 2.6; Prothrombin Time Fingerstick 26.2 SEC (11.7-14.9)
== END 2024-02-04 18:00 | disposition home or self-care (01) ==
LOC: LAB 15:55
PROVIDERS: PCP Physician Assistant; Referring Provider Nurse Practitioner Family; Visit Provider Nurse Practitioner Family
DX: I48.0 Paroxysmal atrial fibrillation (principal); Z79.01 Long term (current) use of 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
CPT/HCPCS: 36416; 85610

== ENCOUNTER 2024-03-21 10:45 | Outpatient (RCR) | payer BC, SELFPAY ==
[2024-02-21 22:15] VITALS: BMI 24.5
[2024-03-21 11:02] LABS: Prothrombin Time Fingerstick 20.7 SEC (11.7-14.9)
== END 2024-03-23 18:00 | disposition home or self-care (01) ==
LOC: LAB 10:45
PROVIDERS: PCP Physician Assistant; Referring Provider Nurse Practitioner Family; Visit Provider Nurse Practitioner Family
DX: Z79.01 Long term (current) use of 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
CPT/HCPCS: 36416; 85610

== ENCOUNTER 2024-04-05 01:11 | Emergency (ER) | payer BC, SELFPAY ==
[2024-04-05 01:12] VITALS: BP 172/82; PULSE 64; RESP 16; TEMP 36.2; O2SAT 100; BMI 26.4
--- NOTE | 2024-04-05 01:53 | EKG12_ITS ---
Test Reason : PALPITATIONS Blood Pressure : / mmHG Vent. Rate : 060 BPM Atrial Rate : 060 BPM P-R Int : 202 ms QRS Dur : 082 ms QT Int : 408 ms P-R-T Axes : 063 -09 045 degrees QTc Int : 408 ms Normal sinus rhythm Normal ECG Confirmed by ANGELA BAILEY, HERMAN ([id number]), editor continuity and script RAMONITA BOOGIE ([id number]) on 04/06/2024 9:41:06 AM Referred By: KENNY Confirmed By:HERMAN MILLER MD
[2024-04-05 02:04] LABS: Bacteria 0 SEEN /hpf (None Seen); Mucous, Urine 0 SEEN /hpf (<or=2+); Red Blood Cells-Urine 0 SEEN /hpf (0-5); Squamous Epithelial Cells - UA 0 SEEN /hpf (5-10); White Blood Cells 0 SEEN /hpf (0-5)
[2024-04-05 02:09] LABS: Absolute Lymphocyte Count 1.69 X10^3/uL (0.83-4.51); Absolute Neutrophil Count 2.8 X10^3/uL (2.0-7.7); Basophil# 0.06 X10^3/uL; Basophil% 1.1 % (0-1); Eosinophil# 0.25 X10^3/uL; Eosinophils% 4.6 % (0-5); Hematocrit 40.2 % (37-47); Hemoglobin 13.2 g/dL (12.0-15.0); Lymphocyte # 1.69 X10^3/ul (0.83-4.51); Lymphocyte % 31.3 % (19-41); Mean Corp Hgb Conc 32.8 g/dL (32-36); Mean Corpuscular Volume 97.6 fL (81-99); Mean Platelet Vol. 13.1 fl (6.2-12.0); Monocyte% 11.1 % (0-10); NRBC Flagged by Analyzer 0 % (0-5); Neutrophil # 2.78 X10^3/uL (2.7-7.7); Neutrophil % 51.5 % (47-70); Platelet Count 164 K/mm3 (150-450); RBC Distribution Width CV 13.6 % (11.6-14.6); RBC Distribution Width SD 48.6 fl (35.1-43.9); Red Blood Count 4.12 M/mm3 (4.2-5.4); White Blood Count 5.4 K/mm3 (4.4-11.0)
[2024-04-05 02:12] VITALS: BP 119/51; PULSE 61; RESP 17; O2SAT 98
[2024-04-05 02:12] LABS: Color, Urine Yellow (Yellow); Glucose, Dipstick Normal (Normal); Ketone-Dipstick Negative (Negative); Leukocyte Esterase-Dipstick Negative /ul (Negative); Nitrite-Dipstick Negative (Negative); Occult Blood-Urine 25 /ul (Negative); Protein-Dipstick Negative (Negative); Urine Bilirubin Dipstick Negative (Negative); Urine Clarity Clear (Clear); Urine Urobilinogen Normal (Normal); Urine pH 6.5 (5.0 - 8.0)
[2024-04-05 02:18] LABS: International Normalized Ratio 2.4; Prothrombin Time (Protime)PT. 26.4 SECONDS (11.7-14.9)
[2024-04-05 02:31] LABS: Anion Gap 5 (5-15); BUN 26 mg/dL (7-18); BUN/Creat Ratio 34.2 RATIO (10-20); Calcium,Total 9.5 mg/dL (8.5-10.1); Chloride 104 mmol/L (98-107); Creatinine, Serum 0.76 mg/dL (0.55-1.02); EST Glomerular Filtration Rate 78 mL/min (>60); Est Glom Filt Rate - Afr Amer 94 mL/min (>60); Estimated Creatinine Clearance 57.64 ml/min; Glucose 100 mg/dL (74-106); Magnesium 2.3 mg/dL (1.6-2.6); Potassium 3.9 mmol/L (3.5-5.1); Sodium Level 136 mmol/L (136-145); Thyroid Stim Hormone (TSH) 6.78 uIU/mL (0.358-3.74)
--- NOTE | 2024-04-05 02:54 | EX.ED.DYSGE1 ---
HPI History of Present Illness Chief Complaint: Palpitations Informant: patient Narrative Narrative: Patient is a 78-year-old female with past medical history of hypertension and paroxysmal atrial fibrillation currently on Coumadin. She states she has been under a great deal of stress recently and has been feeling she has been going in and out of atrial fibrillation. She reports that she is also difficulty sleeping and has been experiencing excessive fatigue. She reports she recently had a carotid duplex and echo performed which were normal. She states however she felt like she was in atrial fibrillation this evening and not able to spontaneously flipped out of it which concerned her and therefore she comes to the hospital for evaluation. [facility] Medical History Shortness of breath PRAMOD (obstructive sleep apnea) group home (current) use of 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 Paroxysmal atrial fibrillation Change in bowel habit Asthma Near syncope Atrial tachycardia (10/14/18) Varicose vein of leg Vestibular neuritis Osteopenia Osteoarthritis Chronic venous insufficiency Glaucoma Essential (primary) hypertension Home Medications ?Medication ?Instructions ?Recorded ?Last Taken ?Type cholecalciferol (vitamin D3) 25 1,000 unit PO BID vitamin 03/10/16 10/11/22 History mcg (1,000 unit) tablet latanoprost 0.005 % eye drops 1 drp EACH EYE [facility] eye health 03/10/16 10/11/22 History coenzyme Q10 50 mg chewable tablet 30 mg PO DAILY 06/07/19 10/11/22 History timolol 0.25 % eye drops 1 drp ophthalmic (eye) BID 12/02/21 10/11/22 History alpha lipoic acid 50 mg capsule 50 mg PO DAILY supplement 10/12/22 10/11/22 History warfarin 5 mg tablet 10 mg PO JONAS afib 10/12/22 10/05/22 History metoprolol tartrate 25 mg tablet 12.5 mg PO BID PRN afib 11/11/23 Unknown History warfarin 5 mg tablet 7.5 mg PO DAILY #135 tabs 12/28/23 Unknown Rx Allergy/AdvReac Type Severity Reaction Status Date / Time cat dander Allergy Mild congestion Verified 04/05/24 01:13 grass pollen Allergy Mild Cough, Verified 04/05/24 01:13 rhinitis house dust Allergy Mild Cough, Verified 04/05/24 01:13 rhinitis mold Allergy Mild Cough, Verified 04/05/24 01:13 rhinitis tree and shrub pollen Allergy Mild Cough, Verified 04/05/24 01:13 rhinitis Sulfa (Sulfonamide Allergy Itching Verified 04/05/24 01:13 Antibiotics) losartan AdvReac Severe dizziness, Verified 04/05/24 01:13 severe amlodipine AdvReac Intermediate dizziness Verified 04/05/24 01:13 lisinopril AdvReac Intermediate Nagging Verified 04/05/24 01:13 dry cough Benzodiazepines AdvReac Other Verified 04/05/24 01:13 diazepam (From Valium) AdvReac Other Verified 04/05/24 01:13 Family History Father Myocardial infarction from [place] age 61 Heart disease Diabetes Sister Breast cancer Other group home (current) use of 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 Surgical History History of carpal tunnel release History of cataract surgery History of tonsillectomy history TMJ surgery history vein surgery S/P excision of Ramos's neuroma Social History household members: spouse housing: house Smoking Status: Never smoker alcohol intake: current alcohol intake frequency: a few times a month substance use type: does not use what type of physical activity do you participate in: none do you feel safe at home: Yes ROS ROS ED Constitutional Constitutional ED: Denies chills or fever(s) Eyes Eyes: Denies blurry vision or change in vision ENT ENT ED: Denies rhinorrhea or sore throat Cardiovascular Cardiovascular: Reports palpitations and racing heartbeat; Denies chest pain Respiratory/Chest Respiratory/Chest: Reports dyspnea; Denies cough Gastrointestinal Gastrointestinal: Denies abdominal pain, diarrhea, nausea or vomiting Genitourinary Genitourinary ED: Denies dysuria Musculoskeletal Musculoskeletal: Reports myalgias Integumentary Denies rash Neurologic Neurologic: Reports weakness; Denies headache(s) Hematologic/Lymphatic Hematologic/Lymphatic: Reports easy bleeding and easy bruising EXAM Physical Exam Const Vital Signs: 04/05/24 01:12 04/05/24 01:12 04/05/24 02:12 Temperature 97.1 F L Temperature Source Temporal Pulse Rate 64 61 Respiratory Rate 16 17 Respiratory Effort Normal Non-Labored Blood Pressure 172/82 H 119/51 L Blood Pressure Mean 112 73 Pulse Ox 100 98 Oxygen Delivery Method Room Air Room Air 04/05/24 03:00 04/05/24 03:05 Temperature 98.1 F Temperature Source Pulse Rate 60 62 Respiratory Rate 16 16 Respiratory Effort Blood Pressure 119/53 L 119/53 L Blood Pressure Mean 75 75 Pulse Ox 98 99 Oxygen Delivery Method Room Air Positive well nourished and well developed General Appearance ED: well developed; Negative for pallor HEENT HEENT Narrative: No tongue or lip swelling no oral lesions no airway edema or compromise Eyes PERRL and EOMs intact bilaterally General Eye ED: Negative for pale conjunctiva or scleral icterus Neck supple and no JVD Neck Narrative: No nuchal rigidity or meningeal signs noted Resp normal respiratory effort and clear to auscultation bilaterally Resp Narrative: Breath sounds are slightly diminished throughout but overall clear to auscultation without nasal flaring retractions tachypnea or accessory muscle use Cardio regular rate and regular rhythm Rate: other Other Details: Radial and carotid pulses are equal and GI normal to inspection, nondistended, normoactive bowel sounds, non-tender, non-distended and no masses Auscultation: normoactive bowel sounds Palpation: soft Extremity normal to inspection Extremity Narrative: No asymmetric edema no pitting edema negative Homans' sign bilaterally Neuro oriented x3, CN's II-XII intact bilaterally and no sensory deficits noted Sensorium / Orientation: alert Motor Exam: strength 5/5 throughout Psych mental status grossly normal Skin no rashes or lesions noted General Skin Exam: Negative for jaundice or pallor MDM MDM MDM Narrative Medical decision making narrative: Patient presented to the ER mildly hypertensive but otherwise with stable vitals. Differential diagnosis is for persistent atrial fibrillation versus acute coronary syndrome versus acute blood loss anemia versus acute kidney injury or severe electro abnormality. There is also concern for infectious process such as UTI as a cause of her reported persistent atrial fibrillation and generalized weakness. Basic blood work was obtained which shows no signs of acute blood loss anemia or acute kidney injury or electrolyte abnormality. Urine also shows no sign of infection. The patient was kept on the air sampling and monitoring and remained in normal sinus rhythm. Therefore at this time as labs do not reveal any clinically significant findings vitals are stable and the patient is currently in normal sinus rhythm and is anticoagulated will add a stable value of 2.4 there is no need for further workup and she is otherwise safe for discharge. I discussed with patient that based on her recent negative workups her fatigue is most likely related to stress response and that she should talk to her family doctor about treatment for this History & Record Review Discussion w/independent historian: Patient Lab Data Attestation: I reviewed the patient's lab results. Labs: Laboratory Results - last 24 hr 04/05/24 04/05/24 01:31 01:36 WBC 5.4 RBC 4.12 L Hgb 13.2 Hct 40.2 MCV 97.6 MCH 32.0 MCHC 32.8 RDW Std Deviation 48.6 H RDW Coeff of Dulce 13.6 Plt Count 164 MPV 13.1 H Immature Gran % (Auto) 0.400 Neut % (Auto) 51.5 Lymph % (Auto) 31.3 [place] % (Auto) 11.1 H Eos % (Auto) 4.6 Baso % (Auto) 1.1 H Absolute Neuts (auto) 2.8 Absolute Lymphs (auto) 1.69 Nucleated RBC % 0 PT 26.4 H INR 2.4 Sodium 136 Potassium 3.9 Chloride 104 Carbon Dioxide 27.0 Anion Gap 5 BUN 26 H Creatinine 0.76 Estim Creat Clear Calc 57.64 Est GFR (MDRD) Af Amer 94 Est GFR (MDRD) Non-Af 78 BUN/Creatinine Ratio 34.2 H Glucose 100 Calcium 9.5 Magnesium 2.3 TSH 6.78 H Urine Color Yellow Urine Clarity Clear Urine pH 6.5 Ur Specific [place] 1.010 Urine Protein Negative Urine Glucose (UA) Normal Urine Ketones Negative Urine Occult Blood 25 H Urine Nitrite Negative Urine Bilirubin Negative Urine Urobilinogen Normal Ur Leukocyte Esterase Negative Urine RBC 0 SEEN Urine WBC 0 SEEN Ur Squamous Epith Cells 0 SEEN Urine Bacteria 0 SEEN Urine Mucus 0 SEEN Discharge Plan Triage Chief Complaint: Palpitations ED Provider: Darron Thomas Dx/Rx/DC Orders Clinical Impression: Paroxysmal atrial fibrillation, Fatigue, Essential (primary) hypertension, 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 Instructions: AFib Dc Prescriptions: No Action timolol 0.25 % drops 1 drp ophthalmic (eye) BID latanoprost 1 DROP bottle 1 drp EACH EYE QHS cholecalciferol (vitamin D3) 1,000 UNIT tablet 1,000 unit PO BID coenzyme Q10 50 MG tablet,chewable 30 mg PO DAILY warfarin 5 mg tablet 10 mg PO JONAS Protocol: Dose Management Condition: Thursday Dose/Route: 7.5 mg Instruction: 1.5 x 5 mg tablets Condition: Thursday Dose/Route: 7.5 mg Instruction: 1.5 x 5 mg tablets Condition: Thursday Dose/Route: 7.5 mg Instruction: 1.5 x 5 mg tablets Condition: Thursday Dose/Route: 7.5 mg Instruction: 1.5 x 5 mg tablets Condition: Dose/Route: 7.5 mg Instruction: 1.5 x 5 mg tablets Condition: Thursday Dose/Route: 7.5 mg Instruction: 1.5 x 5 mg tablets Condition: Thursday Dose/Route: 7.5 mg Instruction: 1.5 x 5 mg tablets Protocol Text: Adjustment Start Date: Thursday03/21/24 INR Value: 2.0 INR Date: 03/21/24 Recheck Date: 04/20/24 alpha lipoic acid 50 mg Capsule 50 mg PO DAILY metoprolol tartrate 25 mg tablet 12.5 mg PO BID PRN (Reason: afib) warfarin 5 mg tablet 7.5 mg PO DAILY Qty: 135 3RF Protocol: Dose Management Condition: Thursday Dose/Route: 7.5 mg Instruction: 1.5 x 5 mg tablets Condition: Thursday Dose/Route: 7.5 mg Instruction: 1.5 x 5 mg tablets Condition: Thursday Dose/Route: 7.5 mg Instruction: 1.5 x 5 mg tablets Condition: Thursday Dose/Route: 7.5 mg Instruction: 1.5 x 5 mg tablets Condition: Dose/Route: 7.5 mg Instruction: 1.5 x 5 mg tablets Condition: Thursday Dose/Route: 7.5 mg Instruction: 1.5 x 5 mg tablets Condition: Thursday Dose/Route: 7.5 mg Instruction: 1.5 x 5 mg tablets Protocol Text: Adjustment Start Date: Thursday03/21/24 INR Value: 2.0 INR Date: 03/21/24 Recheck Date: 04/20/24 Primary Care Provider: Moon Malone Referrals: Moon Malone MD [Primary Care Provider] - Activity Restrictions/Additional Instructions: Please discuss with your family doctor about potentially being placed on a low-dose benzodiazepine or a sleeping pill to help with your symptoms. Your workup in the ER revealed no clinically significant findings and I feel that a large portion of your symptoms are related to stress response Print Language: Amharic Disposition Disposition: Home, Self Care Discharge Date/Time: 04/05/24 03:07
[2024-04-05 03:00] VITALS: BP 119/53; PULSE 60; RESP 16; O2SAT 98
[2024-04-05 03:05] VITALS: BP 119/53; PULSE 62; RESP 16; TEMP 36.7; O2SAT 99
== END 2024-04-05 03:07 | disposition home or self-care (01) ==
PROVIDERS: Emergency Provider Emergency Medicine; PCP Internal Medicine; Visit Provider Emergency Medicine
DX: I48.0 Paroxysmal atrial fibrillation (principal); I10 Essential (primary) hypertension; R53.83 Other fatigue; G47.33 Obstructive sleep apnea (adult) (pediatric); Z79.01 Long term (current) use of 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
CPT/HCPCS: 80048; 81001; 83735; 84443; 85025; 85610; 93005; 99284; A4216

== ENCOUNTER 2024-04-22 11:03 | Outpatient (RCR) | payer BC, SELFPAY ==
[2024-03-23 20:12] VITALS: BMI 24.5
[2024-04-22 11:15] LABS: INR Fingerstick 2.1; Prothrombin Time Fingerstick 22.4 SEC (11.7-14.9)
== END 2024-04-22 18:00 | disposition home or self-care (01) ==
LOC: LAB 11:03
PROVIDERS: PCP Internal Medicine; Referring Provider Nurse Practitioner Family; Visit Provider Nurse Practitioner Family
DX: Z79.01 Long term (current) use of 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
CPT/HCPCS: 36416; 85610

== ENCOUNTER 2024-05-17 10:44 | Emergency (ER) | payer BC, SELFPAY ==
[2024-05-17 10:45] VITALS: BP 135/68; PULSE 90; RESP 16; TEMP 35.9; O2SAT 93; BMI 26.8
--- NOTE | 2024-05-17 10:53 | EX.ED.GENINJ ---
HPI History of Present Illness Chief Complaint: Head Injury Onset/Context/Timing Onset: Today Mechanism/Context: Fall Quality of Pain: Dull Location: Left frontal Worsened by: Palpation, pressure Relieved by: Nothing Associated Symptoms Associated Symptoms: Negative for Parasthesias, Weakness, Loss of function, Inability to ambulate, Loss of consciousness or Amnesia Narrative Narrative: Patient presents with head injury that occurred earlier this morning. Patient states she fell out of bed. Patient states she hit her head on the bedside table. Patient denies any loss of consciousness. Patient denies any paresthesias or weakness. Patient denies any visual changes. Patient denies any nausea or vomiting. Patient is on Coumadin. Patient states she called her admissions advisor office and was told to come to the emergency department. Patient states that she drove herself to the hospital earlier today for an upper GI test. Patient states she drove herself home after this. 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 Paroxysmal atrial fibrillation Change in bowel habit Asthma Near syncope Atrial tachycardia (10/14/18) Varicose vein of leg Vestibular neuritis Osteopenia Osteoarthritis Chronic venous insufficiency Glaucoma Essential (primary) hypertension Home Medications ?Medication ?Instructions ?Recorded ?Last Taken ?Type cholecalciferol (vitamin D3) 25 1,000 unit PO BID vitamin 03/10/16 10/11/22 History mcg (1,000 unit) tablet latanoprost 0.005 % eye drops 1 drp EACH EYE [facility] eye health 03/10/16 10/11/22 History coenzyme Q10 50 mg chewable tablet 30 mg PO DAILY 06/07/19 10/11/22 History timolol 0.25 % eye drops 1 drp ophthalmic (eye) BID 12/02/21 10/11/22 History alpha lipoic acid 50 mg capsule 50 mg PO DAILY supplement 10/12/22 10/11/22 History warfarin 5 mg tablet 10 mg PO JONAS afib 10/12/22 10/05/22 History metoprolol tartrate 25 mg tablet 12.5 mg PO BID PRN afib 11/11/23 Unknown History warfarin 5 mg tablet 7.5 mg PO DAILY #135 tabs 12/28/23 Unknown Rx escitalopram oxalate 5 mg tablet 10 mg PO QPM 05/17/24 Unknown History melatonin 1 mg sublingual tablet 1 mg sublingual DAILY 05/17/24 Unknown History Allergy/AdvReac Type Severity Reaction Status Date / Time cat dander Allergy Mild congestion Verified 05/17/24 10:47 grass pollen Allergy Mild Cough, Verified 05/17/24 10:47 rhinitis house dust Allergy Mild Cough, Verified 05/17/24 10:47 rhinitis mold Allergy Mild Cough, Verified 05/17/24 10:47 rhinitis tree and shrub pollen Allergy Mild Cough, Verified 05/17/24 10:47 rhinitis Sulfa (Sulfonamide Allergy Itching Verified 05/17/24 10:47 Antibiotics) losartan AdvReac Severe dizziness, Verified 05/17/24 10:47 severe amlodipine AdvReac Intermediate dizziness Verified 05/17/24 10:47 lisinopril AdvReac Intermediate Nagging Verified 05/17/24 10:47 dry cough Benzodiazepines AdvReac Other Verified 05/17/24 10:47 diazepam (From Valium) AdvReac Other Verified 05/17/24 10:47 Family History Father Myocardial infarction from [place] age 61 Heart disease Diabetes Sister Breast cancer 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 Surgical History history vein surgery history TMJ surgery History of cataract surgery S/P excision of Ramos's neuroma History of carpal tunnel release History of tonsillectomy Social History household members: spouse housing: house Smoking Status: Never smoker alcohol intake: current alcohol intake frequency: a few times a month substance use type: does not use what type of physical activity do you participate in: none do you feel safe at home: Yes ROS ROS ED Constitutional Constitutional ED: Denies chills or fever(s) Eyes Eyes: Denies blurry vision or change in vision ENT ENT ED: Denies rhinorrhea or sore throat Cardiovascular Cardiovascular: Denies chest pain or palpitations Respiratory/Chest Respiratory/Chest: Reports cough; Denies dyspnea Gastrointestinal Gastrointestinal: Denies nausea or vomiting Genitourinary Genitourinary ED: Denies dysuria or hematuria Musculoskeletal Musculoskeletal: Denies back pain or neck pain Integumentary Denies abscess or rash Neurologic Neurologic: Reports headache(s); Denies weakness Allergic/Immunologic Allergic/Immunologic ED: Denies mouth swelling or urticaria EXAM Physical Exam Const Vital Signs: 05/17/24 10:45 05/17/24 11:03 05/17/24 12:45 Temperature 96.7 F L Temperature Source Temporal Pulse Rate 90 72 Respiratory Rate 16 Respiratory Effort Normal Respiratory Depth Normal Respiratory Pattern Normal Blood Pressure 135/68 H 163/74 H Blood Pressure Mean 90 103 Pulse Ox 93 Oxygen Delivery Method Room Air Positive well nourished and well developed General Appearance ED: well developed and NAD HEENT HEENT Narrative: There is tenderness with mild ecchymosis over the left frontal scalp area. There is no bony crepitance or step-off noted. Eyes PERRL and EOMs intact bilaterally Neck full ROM Resp normal respiratory effort and clear to auscultation bilaterally Cardio regular rhythm Rate: regular rate GI non-tender and non-distended Palpation: soft Extremity normal to inspection and full ROM Neuro oriented x3, CN's II-XII intact bilaterally, moves all extremities, no focal motor deficits and no sensory deficits noted Rachael Coma Scale: document GCS findings Spontaneous Obeys Commands Oriented 15 Sensorium / Orientation: alert Motor Exam: strength 5/5 throughout Psych mental status grossly normal MDM MDM MDM Narrative Medical decision making narrative: Differential diagnosis includes intracranial bleeding, closed head injury, and coagulopathy. CT scan of the brain will be obtained to assess for intracranial bleeding. PT with INR will be obtained to assess for coagulopathy. History & Record Review Additional record(s) reviewed:: Prior labs Lab Data Attestation: I reviewed the patient's lab results. Labs: Laboratory Results - last 24 hr 05/17/24 11:30 PT 29.3 H INR 2.8 PT with INR was reviewed. Pro time was 29.3 and INR is 2.8. Radiography Diagnostic Testing: Clinical Impression(s) from Imaging Studies Brain CT 05/17/24 11:15 IMPRESSION: Chronic involutional changes of the brain. Electronically Signed: Zaid Jason MD at 12:32 EDT , CT scan of the brain was obtained. There is no acute intracranial abnormality. There are chronic involutional changes noted. This was interpreted by the radiologist and was also independently reviewed by myself. Treatment and Re-Evaluation Narrative: Patient was advised of her findings. Patient was instructed to take Tylenol as needed for headaches. Patient was instructed to follow-up with her primary care physician in 5 to 7 days. Patient was instructed to continue her Coumadin as prescribed. Patient understood and was agreeable with the plan. All questions were answered. Discharge Plan Triage Chief Complaint: Head Injury ED Provider: Ousmane Matias Dx/Rx/DC Orders Clinical Impression: Closed head injury, Fall Instructions: ED Head Injury (Adult) Prescriptions: No Action timolol 0.25 % drops 1 drp ophthalmic (eye) BID latanoprost 1 DROP bottle 1 drp EACH EYE QHS cholecalciferol (vitamin D3) 1,000 UNIT tablet 1,000 unit PO BID coenzyme Q10 50 MG tablet,chewable 30 mg PO DAILY warfarin 5 mg tablet 10 mg PO JONAS Protocol: Dose Management Condition: Thursday Dose/Route: 7.5 mg Instruction: 1.5 x 5 mg tablets Condition: Thursday Dose/Route: 7.5 mg Instruction: 1.5 x 5 mg tablets Condition: Thursday Dose/Route: 7.5 mg Instruction: 1.5 x 5 mg tablets Condition: Thursday Dose/Route: 7.5 mg Instruction: 1.5 x 5 mg tablets Condition: Dose/Route: 7.5 mg Instruction: 1.5 x 5 mg tablets Condition: Thursday Dose/Route: 7.5 mg Instruction: 1.5 x 5 mg tablets Condition: Thursday Dose/Route: 7.5 mg Instruction: 1.5 x 5 mg tablets Protocol Text: Adjustment Start Date: Thursday04/22/24 INR Value: 2.1 INR Date: 04/22/24 Recheck Date: 05/22/24 alpha lipoic acid 50 mg Capsule 50 mg PO DAILY metoprolol tartrate 25 mg tablet 12.5 mg PO BID PRN (Reason: afib) escitalopram oxalate 5 mg tablet 10 mg PO QPM melatonin 1 mg tablet, sublingual 1 mg sublingual DAILY warfarin 5 mg tablet 7.5 mg PO DAILY Qty: 135 3RF Protocol: Dose Management Condition: Thursday Dose/Route: 7.5 mg Instruction: 1.5 x 5 mg tablets Condition: Thursday Dose/Route: 7.5 mg Instruction: 1.5 x 5 mg tablets Condition: Thursday Dose/Route: 7.5 mg Instruction: 1.5 x 5 mg tablets Condition: Thursday Dose/Route: 7.5 mg Instruction: 1.5 x 5 mg tablets Condition: Dose/Route: 7.5 mg Instruction: 1.5 x 5 mg tablets Condition: Thursday Dose/Route: 7.5 mg Instruction: 1.5 x 5 mg tablets Condition: Thursday Dose/Route: 7.5 mg Instruction: 1.5 x 5 mg tablets Protocol Text: Adjustment Start Date: Thursday04/22/24 INR Value: 2.1 INR Date: 04/22/24 Recheck Date: 05/22/24 Primary Care Provider: Moon Malone Referrals: Moon Malone MD [Primary Care Provider] - 5-7 Days Activity Restrictions/Additional Instructions: Continue your Coumadin as prescribed. Your INR was therapeutic at 2.8. Print Language: Irish Disposition Disposition: Home, Self Care
--- NOTE | 2024-05-17 11:15 | CT_ITS ---
STUDY: CT BRAIN WITHOUT CONTRAST REASON FOR EXAM: Female, 78 years old. Head injury due to a fall. RADIATION DOSAGE (If Supplied By Facility): CTDIvol = ( 44.99 ) mGy, DLP = ( 829.85 ) mGycm TECHNIQUE: Transaxial CT imaging of the brain was performed without administration of intravenous contrast material. Individualized dose optimization techniques were used for this CT. COMPARISON: No relevant priors. FINDINGS: Normal soft tissue structures. Normal calvarium. There is mild cerebral atrophy with widening of the extra-axial spaces and ventricular dilatation. There are areas of decreased attenuation within the white matter tracts of the supratentorial brain, consistent with microvascular disease changes. Normal basal ganglia and thalami. Normal brainstem. Normal cerebellum. There is no intracranial hemorrhage. There are no findings of an acute ischemic infarction. Atherosclerotic plaque formation of the cavernous portions of the internal carotid arteries bilaterally. Normal visualized paranasal sinuses. CT/Brain/Head without Contrast IMPRESSION: Chronic involutional changes of the brain. Electronically Signed: Zaid Jason MD at 12:32 EDT ,
[2024-05-17 12:00] LABS: International Normalized Ratio 2.8; Prothrombin Time (Protime)PT. 29.3 SECONDS (11.7-14.9)
[2024-05-17 12:45] VITALS: BP 163/74; PULSE 72
[2024-05-17 13:37] VITALS: BP 147/77; PULSE 72; RESP 18; TEMP 36.7; O2SAT 96
== END 2024-05-17 13:38 | disposition home or self-care (01) ==
PROVIDERS: Emergency Provider Emergency Medicine; PCP Internal Medicine; Visit Provider Emergency Medicine
DX: S09.90XA Unspecified injury of head, initial encounter (principal); I48.0 Paroxysmal atrial fibrillation; I10 Essential (primary) hypertension; R26.2 Difficulty in walking, not elsewhere classified; Z79.01 Long term (current) use of 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; G47.33 Obstructive sleep apnea (adult) (pediatric); R05.9 Cough, unspecified; W06.XXXA Fall from bed, initial encounter
CPT/HCPCS: 70450; 85610; 99282

== ENCOUNTER → 2024-05-17 | Outpatient (CLI) | payer BC, SELFPAY | END | disposition home or self-care (01) | PROVIDERS: PCP Internal Medicine; Referring Provider Internal Medicine; Visit Provider Internal Medicine | DX: R13.10 Dysphagia, unspecified (principal); R09.89 Other specified symptoms and signs involving the circulatory and respiratory systems ==

== ENCOUNTER → 2024-06-14 | Outpatient (CLI) | payer BC, SELFPAY ==
--- NOTE | 2024-06-14 14:53 | SP.MBSS_ITS ---
Modified Barium Swallow Patient Information Study Date: 06/14/24 Study Time: 13:00 Direct Billable Minutes: 120 Total Minutes procedure & reportin Diagnosis: Dysphagia - R13.10 Referring Physician: Moon Malone Reason for Referral: Objectively assess swallow function, assess risk for aspiration, and determine recommendations for least restrictive diet textures and compensatory strategies to improve safety of swallow.? Medical History: Cady Berumen is a 78-year-old female here for a Modified Barium Swallow Study, referred by Moon Malone due to concerns about coughing. The patient reports frequent episodes of coughing and choking during oral intake, which can occur with food, liquids, and even her own saliva. Most recently, she choked on eggs and noted that she began to perform the Heimlich maneuver on herself. Her past medical history includes shortness of breath, obstructive sleep apnea (PRAMOD), long-term use of 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, paroxysmal atrial fibrillation, asthma, near syncope, atrial tachycardia (10/14/18), varicose veins in her leg, vestibular neuritis, osteopenia, osteoarthritis, chronic venous insufficiency, glaucoma, and essential hypertension. Mental Status: WNL Respiratory Status: Oxygenating on Room Air Penetration-Aspiration Scale Penetration-Aspiration Scale: OBJECTIVE ASSESSMENT OF SWALLOW FUNCTION (QUANTITATIVE ? PER TRIAL): PENETRATION / ASPIRATION SCALE (SCHMIDT): 1 = does not enter airway 2 = enters airway/above vocal folds/ejected 3 = enters airway/above vocal folds/not ejected 4 = enters airway/contacts vocal folds/ejected 5 = enters airway/contacts vocal folds/not ejected 6 = enters airway/below vocal folds/ejected 7 = enters airway/below vocal folds/not ejected despite effort 8 = enters airway/below vocal folds/no effort VIDEOFLOROSCOPIC SCALE SCORE (SCHMIDT): Grade I = aspiration of material that has penetrated into the laryngeal vestibule, intact cough reflex Grade II = aspiration < 10 % of the bolus, intact cough reflex Grade III = aspiration of < 10 % of the bolus, reduced cough reflex or aspiration of > 10 % of the bolus, intact cough reflex Grade IV = aspiration of > 10 % of the bolus, reduced cough reflex Penetration-Aspiration Scale Score Thin Liquid via teaspoon: Result: 1= does not enter airway Thin Liquid via teaspoon Trial 2: Result: 1= does not enter airway Thin Liquid via small single sip: cup: Result: 1= does not enter airway Thin Liquid via sequential sips: cup: Result: 1= does not enter airway [place] Thick Liquid via small single sip: cup: Result: 1= does not enter airway Honey Thick Liquid via small single sip: cup: Result: 1= does not enter airway Pudding: Result: 1= does not enter airway Cookie: Result: 1= does not enter airway Oral Phase Labial Seal: No Labial Escape Tongue Control During Bolus Hold: Posterior escape of less than half of bolus Bolus Preparation/Mastication: Slow prolonged chewing/mashing with complete recollection Bolus Transport/Lingual Motion: Brisk tongue motion Oral Residue: Residue collection on oral structures Pharyngeal Phase Initiation of Pharyngeal Swallow: Bolus head in valleculae Soft Palate Elevation: No bolus between soft palate and pharyngeal wall Laryngeal Elevation: Comp. Superior move thyroid cart w/comp. apprx arytenoid cart-epig pet Anterior Hyoid Excursion: Complete anterior movement Epiglottic Movement: Complete inversion Laryngeal Vestibule Closure at Height of Swallow: Complete; no air/contrast in laryngeal vestibule Pharyngeal Stripping Wave: Present - diminished Pharyngoesophageal Segment Opening: Parital distension and partial duration; parital obstruction of flow Tongue Base Retraction: Wide column of contrast between tongue base & post. pharyngeal wall Pharyngeal Residue: Collection of residue within or on pharyngeal structures Esophageal Phase Esophageal Clearance: Esophageal retention w/ retrograde flow below pharyngoesophageal seg. Diagnosis/Impression Diagnosis: oropharyngeal dysphagia, esophageal dysphagia Impression: Oral phase primarily marked by... * Presence of oral residue after swallowing thin liquids, spilling into the pharynx. Significant risk for postprandial penetration/aspiration due to lack of awareness, preventing double swallow or airway protection. * Adequate mastication of cookie noted, using piecemeal deglutition. Majority of cookie remained in the vallecula and pyriforms after initial swallow. Patient independently uses a double swallow, which partially clears pharyngeal residues. Pharyngeal phase primarily marked by... * Notable cricopharyngeal hypertrophy at C4/C5. Bulging of cricopharyngeus impacting pharyngoesophageal bolus transit. * During honey-thick liquid trial, contrast lining the pyriforms with potential anatomical variations triggering an immediate reflexive cough. Fluoroscopy was briefly turned off and resumed during the cough. No aspiration observed. * Persistent coughing episodes may be linked to this penetration; further instrumental swallow evaluation needed. Recommendation for Fiberoptic Endoscopic Evaluation of Swallowing (FEES) to visualize structures. Esophageal phase primarily marked by... * Esophageal retention observed in the upper and mid esophagus following 1x bite of pudding, with retrograde flow noted below the UES. * Ongoing follow-up with gastroenterology recommended due to risk of reflux aspiration. Coughing episodes also may be linked to this. Recommendations Diet: Regular Textures and Thin Liquids Compensatory Strategies: Multiple Swallows, Alternate bites/solids and sips/liquids, Sitting upright and Remain sitting upright for 30 minutes after PO intake Recommend Repeat Modified Barium Swallow: No (Recommendation for Fiberoptic Endoscopic Evaluation of Swallowing (FEES) to visualize structures.) Need for Skilled Speech Therapy Services: Yes Recommended Referrals: GI Consult Education Completed: 1. Described result of evaluation. and 2. Pt understands evaluation & agrees with goals and treatment plan. Status Active ST Patient: Active Contact Information [facility] Speech Therapy:: Heide Monroy M.A. [employer]ALL [employer]GER Speech-Language Pathologist [facility] [address] [place] [address] [email or web address] [phone]
== END | disposition home or self-care (01) ==
PROVIDERS: PCP Internal Medicine; Referring Provider Internal Medicine; Visit Provider Internal Medicine
DX: R05.9 Cough, unspecified (principal)
CPT/HCPCS: 74230; 92611

== ENCOUNTER 2024-06-22 16:03 | Emergency (ER) | payer BC, SELFPAY ==
[2024-06-22 16:05] VITALS: BP 156/72; PULSE 65; RESP 18; TEMP 36.7; O2SAT 97; BMI 29.7
--- NOTE | 2024-06-22 16:25 | RAD_ITS ---
STUDY: X-RAY - LEFT HAND REASON FOR EXAM: Female, 78 years old. trauma TECHNIQUE: 3 view(s) of the hand. COMPARISON: None. FINDINGS: Normal radiocarpal articulation. Normal distal radioulnar joint. Normal visualized carpal bones. Normal carpal articulations Degenerative changes of the carpometacarpal articulation of the thumb. Normal second through fifth carpometacarpal joints. Normal metacarpi. Normal metacarpophalangeal joint of the thumb. Normal interphalangeal joint of the thumb. Normal proximal and distal phalanges of the thumb. Normal metacarpophalangeal joints of the second through fifth fingers. Normal proximal distal interphalangeal joints of the second through fifth fingers. Degenerative changes of the DIP joints Normal phalanges of the second through fifth fingers. The soft tissue structures are unremarkable. RAD/Hand Min 3 Views IMPRESSION: Degenerative changes. No acute fracture or dislocation Electronically Signed: Eleuterio Prasad MD at 18:11 EDT ,
--- NOTE | 2024-06-22 16:25 | RAD_ITS ---
STUDY: X-RAY - LEFT KNEE REASON FOR EXAM: Female, 78 years old. trauma, pain TECHNIQUE: 4 view(s) of the knee. COMPARISON: None. FINDINGS: Normal visualized distal femur. Normal visualized proximal tibia and fibula. Normal proximal tibiofibular articulation. Narrowed medial femorotibial compartment. Normal lateral femorotibial compartment. Normal patellofemoral articulation. Small suprapatellar spur The soft tissue structures are unremarkable. RAD/Knee 4 or More Views IMPRESSION: Degenerative changes. No acute fracture or dislocation Electronically Signed: Eleuterio Prasad MD at 18:09 EDT Reading Location ID and State: [facility] / [place] Tel , Service support ,
--- NOTE | 2024-06-22 16:26 | CT_ITS ---
STUDY: CT BRAIN WITHOUT CONTRAST REASON FOR EXAM: Female, 78 years old. Injury/Pain RADIATION DOSAGE (If Supplied By Facility): CTDIvol = ( 44.99 ) mGy, DLP = ( 846.73 ) mGycm TECHNIQUE: Transaxial CT imaging of the brain was performed without administration of intravenous contrast material. Individualized dose optimization techniques were used for this CT. COMPARISON: No relevant priors. FINDINGS: Normal soft tissue structures. Normal calvarium. Calcific plaquing of the cavernous carotids Mild atrophy and moderate periventricular white matter ischemic change. Normal basal ganglia and thalami. Normal brainstem. Normal cerebellum. There is no intracranial hemorrhage. There are no findings of an acute ischemic infarction. Normal visualized paranasal sinuses. Postsurgical changes of the orbits CT/Brain/Head without Contrast IMPRESSION: Mild atrophy and moderate periventricular white matter ischemic changes. No evidence for acute intracranial bleed Electronically Signed: Eleuterio Prasad MD at 17:40 EDT ,
--- NOTE | 2024-06-22 16:26 | CT_ITS ---
STUDY: CT CERVICAL SPINE WITHOUT CONTRAST REASON FOR EXAM: Female, 78 years old. Injury/Pain RADIATION DOSAGE (If Supplied By Facility): CTDIvol = ( 16.04 ) mGy, DLP = ( 261.24 ) mGycm TECHNIQUE: High resolution transaxial imaging was performed without contrast material. Sagittal and coronal images were reconstructed. Individualized dose optimization techniques were used for this CT. COMPARISON: None FINDINGS: Normal craniovertebral junction. Normal anterior atlantoaxial articulation. Normal odontoid process. Normal cervical lordosis. Normal vertebral bodies and posterior osseous elements. C2-3: Normal endplates. Normal disc height and morphology. Normal central canal and intervertebral neuroforamina. C3-4: Normal endplates. Normal disc height and morphology. Normal central canal. Severe right neural foraminal stenosis secondary to bony hypertrophy C4-5: Normal endplates. Normal disc height and morphology. Normal central canal. Mild to moderate bilateral neural foraminal stenosis secondary to bony hypertrophy. C5-6: Mild anterior endplate spurring. Mildly narrowed disc space with normal disc morphology. Normal central canal. Mild bilateral neural foraminal encroachment secondary to bony hypertrophy C6-7: Mild anterior endplate spurring. Mildly narrowed disc space with normal disc morphology. Normal central canal. Moderate right neural foraminal encroachment secondary to bony hypertrophy C7-T1: Normal endplates. Normal disc height and morphology. Normal central canal and intervertebral neuroforamina. Normal visualized soft tissue structures. CT/Spine Cervical without Contras IMPRESSION: No evidence for acute fracture or subluxation Mild spondylosis most severe at C5-6 and C6-7 Electronically Signed: Eleuterio Prasad MD at 17:43 EDT ,
--- NOTE | 2024-06-22 16:27 | EX.ED.GENINJ ---
HPI History of Present Illness Chief Complaint: Fall Informant: patient Narrative Narrative: Patient is a 78-year-old female with history of proximal atrial fibrillation, on Coumadin, as well as obstructive sleep apnea and hypertension presenting for evaluation after mechanical fall. Patient lives at [facility] independently. She was walking up a curb when there was a little lip of cement that she did not clear. Her shoe got stuck and this caused her to trip. She fell forward landing bilateral knees, hands and hit the left side of her face. She denies loss of consciousness but states that her right jaw is actually hurting. She states that she also chipped a tooth and has multiple abrasions. Denies any loss of consciousness. Was in her normal state health for this fall. No other complaints or concerns reported at this time. Tetanus Immunization: Unknown [facility] Medical History Shortness of breath PRAMOD (obstructive sleep apnea) penitent[facility] (current) use of 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 Paroxysmal atrial fibrillation Change in bowel habit Asthma Near syncope Atrial tachycardia (10/14/18) Varicose vein of leg Vestibular neuritis Osteopenia Osteoarthritis Chronic venous insufficiency Glaucoma Essential (primary) hypertension Home Medications ?Medication ?Instructions ?Recorded ?Last Taken ?Type cholecalciferol (vitamin D3) 25 1,000 unit PO BID vitamin 03/10/16 10/11/22 History mcg (1,000 unit) tablet latanoprost 0.005 % eye drops 1 drp EACH EYE [facility] eye health 03/10/16 10/11/22 History coenzyme Q10 50 mg chewable tablet 30 mg PO DAILY 06/07/19 10/11/22 History timolol 0.25 % eye drops 1 drp ophthalmic (eye) BID 12/02/21 10/11/22 History metoprolol tartrate 25 mg tablet 12.5 mg PO BID PRN afib 11/11/23 Unknown History warfarin 5 mg tablet 7.5 mg PO DAILY #135 tabs 12/28/23 Unknown Rx Allergy/AdvReac Type Severity Reaction Status Date / Time cat dander Allergy Mild congestion Verified 06/22/24 16:05 grass pollen Allergy Mild Cough, Verified 06/22/24 16:05 rhinitis house dust Allergy Mild Cough, Verified 06/22/24 16:05 rhinitis mold Allergy Mild Cough, Verified 06/22/24 16:05 rhinitis tree and shrub pollen Allergy Mild Cough, Verified 06/22/24 16:05 rhinitis Sulfa (Sulfonamide Allergy Itching Verified 06/22/24 16:05 Antibiotics) losartan AdvReac Severe dizziness, Verified 06/22/24 16:05 severe amlodipine AdvReac Intermediate dizziness Verified 06/22/24 16:05 lisinopril AdvReac Intermediate Nagging Verified 06/22/24 16:05 dry cough Benzodiazepines AdvReac Other Verified 06/22/24 16:05 diazepam (From Valium) AdvReac Other Verified 06/22/24 16:05 Family History Father Myocardial infarction from [place] age 61 Heart disease Diabetes Sister Breast cancer 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 Surgical History history vein surgery history TMJ surgery History of cataract surgery S/P excision of Ramos's neuroma History of carpal tunnel release History of tonsillectomy Social History household members: spouse housing: house Smoking Status: Never smoker alcohol intake: current alcohol intake frequency: a few times a month substance use type: does not use what type of physical activity do you participate in: none do you feel safe at home: Yes ROS ROS ED Constitutional Constitutional ED: Denies chills or fever(s) Eyes Eyes: Denies blurry vision or change in vision ENT ENT ED: Reports other Details: right jaw pain, chipped tooth. Cardiovascular Cardiovascular: Denies chest pain Respiratory/Chest Respiratory/Chest: Denies cough Gastrointestinal Gastrointestinal: Denies nausea or vomiting Musculoskeletal Musculoskeletal: Reports arthralgias Neurologic Neurologic: Denies headache(s) or paresthesias Hematologic/Lymphatic Hematologic/Lymphatic: Reports easy bleeding, easy bruising and other Details: on Coumadin EXAM Physical Exam Const Vital Signs: 06/22/24 16:05 06/22/24 16:09 06/22/24 18:04 Temperature 98.1 F Temperature Source Oral Pulse Rate 65 78 Respiratory Rate 18 18 Respiratory Effort Normal Non-Labored Respiratory Depth Normal Respiratory Pattern Normal Blood Pressure 156/72 H 153/72 H Blood Pressure Mean 100 99 Pulse Ox 97 Oxygen Delivery Method Room Air 06/22/24 19:15 Temperature 98.1 F Temperature Source Pulse Rate 61 Respiratory Rate 18 Respiratory Effort Respiratory Depth Respiratory Pattern Blood Pressure 143/62 H Blood Pressure Mean 89 Pulse Ox 97 Oxygen Delivery Method Positive well nourished and well developed General Appearance ED: well developed and NAD HEENT Reports TM's clear HEENT Narrative: Difficult with occlusion secondary to pain right mandibular jaw at the angle of the mandible. Able to open and close her mouth. There is Richard type I dental fracture of the left lateral incisor (tooth #10). No associated bleeding. No cephalhematoma appreciated. trauma Nose: Negative for septum abnormal Tympanic Membrane ED: Yes TM's clear Eyes PERRL Neck full ROM General: Negative for tenderness Chest Wall inspection of chest normal and palpation of chest normal Resp normal respiratory effort and clear to auscultation bilaterally Cardio regular rhythm and no murmurs Rate: regular rate GI normal to inspection, nondistended, normoactive bowel sounds and non-tender Back/Spine Thoracic Spine / Upper Back: Negative for thoracic spinal tenderness Extremity full ROM Extremity Narrative: No deformity. Diffuse tenderness over the left and right hand/metacarpals. No tenderness palpation of the wrist. Patient also tenderness palpation of the bilateral knees but no associated deformity. Pelvis is stable. Normal range of motion of the shoulders and hips. Neuro oriented x3, moves all extremities, no focal motor deficits and no sensory deficits noted Psych mental status grossly normal and thought process normal Skin Skin Narrative: Superficial abrasion to the philtrum just to the left of midline. There are scattered abrasions on the bilateral dorsum of the hands, partial-thickness on the left and very superficial with no active bleeding on the right. MDM MDM MDM Narrative Medical decision making narrative: Patient had a traumatic injuries after a mechanical fall. She is on Coumadin. She is also complaining of right-sided jaw pain, chipped tooth, knee and hand pain. Will check INR, imaging includes CT of the brain so cervical spine and facial bones and x-rays of the hands and knees. Patient given Tylenol for pain with improvement of her symptoms. She declines tetanus in the ER as she only wants tetanus and does not want a Tdap but we do not have it on formulary. CT imaging does not show any acute traumatic process. X-rays of the bilateral hands and bilateral knees reviewed myself as well as radiology show degenerative changes with no acute fracture dislocations. Patient's hemoglobin is normal. Her INR is therapeutic at 2.9. She is improvement in her pain with Tylenol. She is able to ambulate in the ER. Will be discharged home with return precautions. She verbalized agreement or stands plan. Given her jaw pain we will give her referral for Dr. Martin and she will also follow-up with her dentist for her chipped tooth. Patient verbalized agreement understand this plan. Discharged home in stable condition. Counseled take Tylenol at home for pain. Lab Data Attestation: I reviewed the patient's lab results. Labs: Laboratory Results - last 24 hr 06/22/24 17:39 WBC 6.2 RBC 4.10 L Hgb 12.9 Hct 39.7 MCV 96.8 MCH 31.5 MCHC 32.5 RDW Std Deviation 47.7 H RDW Coeff of Dulce 13.3 Plt Count 179 MPV 12.4 H Immature Gran % (Auto) 0.500 Neut % (Auto) 59.3 Lymph % (Auto) 23.3 Day % (Auto) 12.2 H Eos % (Auto) 3.4 Baso % (Auto) 1.3 H Absolute Neuts (auto) 3.7 Absolute Lymphs (auto) 1.45 Nucleated RBC % 0 PT 30.4 H INR 2.9 Radiography Diagnostic Testing: Clinical Impression(s) from Imaging Studies Hand X-Ray 06/22/24 16:25 IMPRESSION: Degenerative changes. No acute fracture or dislocation Electronically Signed: Eleuterio Prasad MD at 18:11 EDT , Knee X-Ray 06/22/24 16:25 IMPRESSION: Degenerative changes. No acute fracture or dislocation Electronically Signed: Eleuterio Prasad MD at 18:09 EDT , Brain CT 06/22/24 16:26 IMPRESSION: Mild atrophy and moderate periventricular white matter ischemic changes. No evidence for acute intracranial bleed Electronically Signed: Eleuterio Prasad MD at 17:40 EDT , Cervical Spine CT 06/22/24 16:26 IMPRESSION: No evidence for acute fracture or subluxation Mild spondylosis most severe at C5-6 and C6-7 Electronically Signed: Eleuterio Prasad MD at 17:43 EDT , Facial/Sinus 06/22/24 16:29 IMPRESSION: Normal unenhanced CT of the facial bones. Electronically Signed: Eleuterio Prasad MD at 17:45 EDT , Hand X-Ray 06/22/24 16:30 IMPRESSION: Degenerative changes. No acute fracture or dislocation. Electronically Signed: Eleuterio Prasad MD at 18:08 EDT , Knee X-Ray 06/22/24 16:30 IMPRESSION: Degenerative changes. 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, Facial trauma, Abrasion, Contusion, knee, Contusion of hand Instructions: ED Abrasion, ED Hand Contusion, ED Contusion, Lower Extremity, ED Mechanical Fall, ED Skin Tear (Skin Avulsion) Prescriptions: No Action timolol 0.25 % drops 1 drp ophthalmic (eye) BID latanoprost 1 DROP bottle 1 drp EACH EYE QHS cholecalciferol (vitamin D3) 1,000 UNIT tablet 1,000 unit PO BID coenzyme Q10 50 MG tablet,chewable 30 mg PO DAILY metoprolol tartrate 25 mg tablet 12.5 mg PO BID PRN (Reason: afib) warfarin 5 mg tablet 7.5 mg PO DAILY Qty: 135 3RF Protocol: Dose Management Condition: Thursday Dose/Route: 7.5 mg Instruction: 1.5 x 5 mg tablets Condition: Thursday Dose/Route: 7.5 mg Instruction: 1.5 x 5 mg tablets Condition: Thursday Dose/Route: 7.5 mg Instruction: 1.5 x 5 mg tablets Condition: Thursday Dose/Route: 7.5 mg Instruction: 1.5 x 5 mg tablets Condition: Dose/Route: 7.5 mg Instruction: 1.5 x 5 mg tablets Condition: Thursday Dose/Route: 7.5 mg Instruction: 1.5 x 5 mg tablets Condition: Thursday Dose/Route: 7.5 mg Instruction: 1.5 x 5 mg tablets Protocol Text: Adjustment Start Date: Thursday04/22/24 INR Value: 2.1 INR Date: 04/22/24 Recheck Date: 05/22/24 Primary Care Provider: Moon Malone Referrals: Moon Malone MD [Primary Care Provider] - Gene Martin MD [Med Staff - Active Staff] - 3-5 Days if not improving Activity Restrictions/Additional Instructions: If you have a hard time chewing go to a soft diet for the next few days. If you continue have a hard time chewing and significant jaw pain please follow-up with Dr. Martin, plastic surgery. Your INR today was 2.9. Your x-rays and CTs did not show any acute fractures thankfully. You may take Tylenol at home for pain. Ice the areas of swelling and bruising. Print Language: Kazakh Disposition Disposition: Home, Self Care Discharge Date/Time: 06/22/24 19:19
--- NOTE | 2024-06-22 16:29 | CT_ITS ---
STUDY: CT FACIAL BONES WITHOUT CONTRAST REASON FOR EXAM: Female, 78 years old. trauma, right mandibular pain RADIATION DOSAGE (If Supplied By Facility): CTDIvol = ( 29.38 ) mGy, DLP = ( 540.11 ) mGycm TECHNIQUE: The patient was scanned in a multi detector CT scanner. Sagittal and coronal images were reconstructed. Individualized dose optimization techniques were used for this CT. COMPARISON: None. FINDINGS: Normal soft tissue structures. Normal orbital carlson and orbital contents. Normal nasal bones and anterior nasal spine. Normal facial bones. There is no demonstrated fracture. Normal visualized paranasal sinuses. CT/Sinus/Facial Bone IMPRESSION: Normal unenhanced CT of the facial bones. Electronically Signed: Eleuterio Prasad MD at 17:45 EDT ,
--- NOTE | 2024-06-22 16:30 | RAD_ITS ---
STUDY: X-RAY - RIGHT KNEE REASON FOR EXAM: Female, 78 years old. TRAUMA TECHNIQUE: 4 view(s) of the knee. COMPARISON: None. FINDINGS: Normal visualized distal femur. Normal visualized proximal tibia and fibula. Normal proximal tibiofibular articulation. Narrowed medial femorotibial compartment. Narrowed lateral femorotibial compartment. Normal patellofemoral articulation. The soft tissue structures are unremarkable. RAD/Knee 4 or More Views IMPRESSION: Degenerative changes. No acute fracture or other significant bony pathology Electronically Signed: Eleuterio Prasad MD at 17:46 EDT ,
--- NOTE | 2024-06-22 16:30 | RAD_ITS ---
STUDY: X-RAY - RIGHT HAND REASON FOR EXAM: Female, 78 years old. TRAUMA TECHNIQUE: 3 view(s) of the hand. COMPARISON: None. FINDINGS: Normal radiocarpal articulation. Normal distal radioulnar joint. Normal visualized carpal bones. Normal carpal articulations Normal carpometacarpal articulation of the thumb. Normal second through fifth carpometacarpal joints. Normal metacarpi. Degenerative changes of the metacarpophalangeal joint of the thumb. Normal interphalangeal joint of the thumb. Normal proximal and distal phalanges of the thumb. Normal metacarpophalangeal joints of the second through fifth fingers. Normal proximal interphalangeal joints of the second through fifth fingers. Degenerative changes of the DIP joints. Normal phalanges of the second through fifth fingers. The soft tissue structures are unremarkable. RAD/Hand Min 3 Views IMPRESSION: Degenerative changes. No acute fracture or dislocation. Electronically Signed: Eleuterio Prasad MD at 18:08 EDT ,
[2024-06-22] MEDS: Acetaminophen 325 MG Tablet 650 MG PO (16:44)
[2024-06-22 17:44] LABS: Absolute Lymphocyte Count 1.45 X10^3/uL (0.83-4.51); Absolute Neutrophil Count 3.7 X10^3/uL (2.0-7.7); Basophil# 0.08 X10^3/uL; Basophil% 1.3 % (0-1); Eosinophil# 0.21 X10^3/uL; Eosinophils% 3.4 % (0-5); Hematocrit 39.7 % (37-47); Hemoglobin 12.9 g/dL (12.0-15.0); Lymphocyte # 1.45 X10^3/ul (0.83-4.51); Lymphocyte % 23.3 % (19-41); Mean Corp Hgb Conc 32.5 g/dL (32-36); Mean Corpuscular Hgb 31.5 pg (27.0-32.0); Mean Corpuscular Volume 96.8 fL (81-99); Mean Platelet Vol. 12.4 fl (6.2-12.0); Monocyte# 0.76 X10^3/uL; Monocyte% 12.2 % (0-10); NRBC Flagged by Analyzer 0 % (0-5); Neutrophil # 3.69 X10^3/uL (2.7-7.7); Neutrophil % 59.3 % (47-70); Platelet Count 179 K/mm3 (150-450); RBC Distribution Width CV 13.3 % (11.6-14.6); RBC Distribution Width SD 47.7 fl (35.1-43.9); White Blood Count 6.2 K/mm3 (4.4-11.0)
[2024-06-22 18:04] VITALS: BP 153/72; PULSE 78; RESP 18
[2024-06-22 18:52] LABS: International Normalized Ratio 2.9; Prothrombin Time (Protime)PT. 30.4 SECONDS (11.7-14.9)
[2024-06-22 19:15] VITALS: BP 143/62; PULSE 61; RESP 18; TEMP 36.7; O2SAT 97
== END 2024-06-22 19:19 | disposition home or self-care (01) ==
PROVIDERS: Emergency Provider Emergency Medicine; PCP Internal Medicine; Referring Provider Emergency Medicine; Visit Provider Emergency Medicine
DX: S00.83XA Contusion of other part of head, initial encounter (principal); I48.0 Paroxysmal atrial fibrillation; Z79.01 Long term (current) use of 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; S80.00XA Contusion of unspecified knee, initial encounter; I10 Essential (primary) hypertension; R68.84 Jaw pain; S80.219A Abrasion, unspecified knee, initial encounter; S60.229A Contusion of unspecified hand, initial encounter; M17.0 Bilateral primary osteoarthritis of knee; W10.1XXA Fall (on)(from) sidewalk curb, initial encounter; G47.33 Obstructive sleep apnea (adult) (pediatric); I87.2 Venous insufficiency (chronic) (peripheral)
CPT/HCPCS: 70450; 70486; 72125; 73130; 73564; 85025; 85610; 99284

== ENCOUNTER 2024-07-26 10:31 | Outpatient (RCR) | payer BC, SELFPAY ==
[2024-04-24 01:59] VITALS: BMI 24.5
[2024-07-26 10:46] LABS: INR Fingerstick 3.2; Prothrombin Time Fingerstick 33.3 SEC (11.7-14.9)
== END 2024-07-26 18:00 | disposition home or self-care (01) ==
LOC: LAB 10:31
PROVIDERS: PCP Internal Medicine; Referring Provider Nurse Practitioner Family; Visit Provider Nurse Practitioner Family
DX: I48.0 Paroxysmal atrial fibrillation (principal); Z79.01 Long term (current) use of 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
CPT/HCPCS: 36416; 85610

== ENCOUNTER 2024-09-22 16:48 | Outpatient (RCR) | payer BC, SELFPAY ==
[2024-08-24 03:45] VITALS: BMI 24.5
[2024-09-12 14:57] LABS: INR Fingerstick 3.9; Prothrombin Time Fingerstick 38.4 SEC (11.7-14.9)
[2024-09-22 16:55] LABS: INR Fingerstick 3.2; Prothrombin Time Fingerstick 32.1 SEC (11.7-14.9)
== END 2024-09-22 18:00 | disposition home or self-care (01) ==
LOC: LAB 16:48
PROVIDERS: PCP Internal Medicine; Referring Provider Nurse Practitioner Family; Visit Provider Nurse Practitioner Family
DX: I48.0 Paroxysmal atrial fibrillation (principal); Z79.01 Long term (current) use of 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
CPT/HCPCS: 36416; 85610

== ENCOUNTER → 2024-09-23 | Outpatient (CLI) | payer BC, SELFPAY ==
[2024-09-23 10:55] LABS: Absolute Lymphocyte Count 1.62 X10^3/uL (0.83-4.51); Absolute Neutrophil Count 4.2 X10^3/uL (2.0-7.7); Basophil# 0.08 X10^3/uL; Basophil% 1.2 % (0-1); Eosinophil# 0.22 X10^3/uL; Eosinophils% 3.2 % (0-5); Hematocrit 41.6 % (37-47); Hemoglobin 12.7 g/dL (12.0-15.0); Lymphocyte # 1.62 X10^3/ul (0.83-4.51); Lymphocyte % 23.4 % (19-41); Mean Corp Hgb Conc 30.5 g/dL (32-36); Mean Corpuscular Hgb 30.7 pg (27.0-32.0); Mean Corpuscular Volume 100.5 fL (81-99); Monocyte# 0.76 X10^3/uL; NRBC Flagged by Analyzer 0 % (0-5); Neutrophil # 4.21 X10^3/uL (2.7-7.7); Neutrophil % 60.8 % (47-70); Platelet Count 223 K/mm3 (150-450); RBC Distribution Width CV 13.7 % (11.6-14.6); RBC Distribution Width SD 50.6 fl (35.1-43.9); Red Blood Count 4.14 M/mm3 (4.2-5.4); White Blood Count 6.9 K/mm3 (4.4-11.0)
[2024-09-23 11:30] LABS: Anion Gap 3 (5-15); BUN 28 mg/dL (7-18); BUN/Creat Ratio 37.5 RATIO (10-20); Chloride 105 mmol/L (98-107); Creatinine, Serum 0.75 mg/dL (0.55-1.02); EST Glomerular Filtration Rate 80 mL/min (>60); Est Glom Filt Rate - Afr Amer 96 mL/min (>60); Glucose 84 mg/dL (74-106); Sodium Level 136 mmol/L (136-145)
[2024-09-24 09:37] LABS: BNP,B-Type NATRIURETIC PEPTIDE 182.8 pg/mL (0-100)
[2024-10-11 12:12] LABS: International Normalized Ratio 2.9; Prothrombin Time (Protime)PT. 31.2 SECONDS (11.7-14.9)
[2024-10-11 12:37] LABS: Anion Gap 5 (5-15); BUN 20 mg/dL (7-18); BUN/Creat Ratio 27.2 RATIO (10-20); Calcium,Total 9.2 mg/dL (8.5-10.1); Chloride 106 mmol/L (98-107); Creatinine, Serum 0.74 mg/dL (0.55-1.02); EST Glomerular Filtration Rate 81 mL/min (>60); Est Glom Filt Rate - Afr Amer 98 mL/min (>60); Glucose 94 mg/dL (74-106); Potassium 4.9 mmol/L (3.5-5.1); Sodium Level 139 mmol/L (136-145)
== END | disposition home or self-care (01) ==
LOC: LAB 09:59
PROVIDERS: Internal Medicine Cardiovascular Disease; PCP Internal Medicine; Referring Provider Physician Assistant Medical; Visit Provider Physician Assistant Medical
DX: R06.02 Shortness of breath (principal); I49.9 Cardiac arrhythmia, unspecified
CPT/HCPCS: 36415; 80048; 83880; 84443; 85025; 85610

== ENCOUNTER 2024-09-26 11:39 | Emergency (ER) | payer BC, SELFPAY ==
[2024-09-26 11:40] VITALS: BP 136/86; PULSE 109; RESP 18; TEMP 36.6; O2SAT 96; O2SAT 97; BMI 29.0
--- NOTE | 2024-09-26 12:01 | EKG12_ITS ---
Test Reason : REPEAT Blood Pressure : */* mmHG Vent. Rate : 67 BPM Atrial Rate : 67 BPM P-R Int : 188 ms QRS Dur : 74 ms QT Int : 382 ms P-R-T Axes : 59 -19 45 degrees QTcB Int : 403 ms Sinus rhythm with Premature atrial complexes Otherwise normal ECG Confirmed by ANGELA BAILEY, HERMAN ([id number]), web content editor MEGAN GUTIERREZ ([id number]) on 09/27/2024 8:47:53 AM Referred By: Confirmed By: HERMAN MILLER MD
--- NOTE | 2024-09-26 12:01 | RAD_ITS ---
EXAM: XR Chest, 1 View CLINICAL INDICATION: TECHNIQUE: Frontal view of the chest. COMPARISON: No relevant prior studies available. FINDINGS: LUNGS AND PLEURAL SPACES: Unremarkable. No consolidation. No pneumothorax. HEART: Unremarkable. No cardiomegaly. MEDIASTINUM: Unremarkable. Normal mediastinal contour. BONES/JOINTS: Unremarkable. No acute fracture. RAD/Chest 1 View (Portable) IMPRESSION: No acute cardiopulmonary process. Reading [facility]
[2024-09-26 12:05] VITALS: O2SAT 95
--- NOTE | 2024-09-26 12:05 | EX.ED.DYSGE1 ---
[facility] <LES Gordon - Last Filed: 09/26/24 15:50> History of Present Illness Chief Complaint: Palpitations Narrative Narrative: Patient is a 78-year-old female with history of hypertension, asthma, sleep apnea, paroxysmal atrial fibrillation on Coumadin who presents to the emerged department for feeling of shortness of breath, dizziness. Patient states that she has been worked up with her student assistance counselor for CHF. She is been having the shortness of breath episodes have been ongoing for the last 3 months. Patient notices that when she lays flat, worse when she gets up she feels dizzy and feels more short of breath. She states that she usually has her heart rate at around 50 to 60 bpm, and every time her heart rate gets to 80-90 she takes metoprolol. She states that when her heart rate gets high she feels something in her throat. Today, she was getting out of shower, felt more short of breath than usual and arrived by ambulance. 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 Paroxysmal atrial fibrillation Change in bowel habit Asthma Near syncope Atrial tachycardia (10/14/18) Varicose vein of leg Vestibular neuritis Osteopenia Osteoarthritis Chronic venous insufficiency Glaucoma Essential (primary) hypertension Home Medications ?Medication ?Instructions ?Recorded ?Last Taken ?Type cholecalciferol (vitamin D3) 25 1,000 unit PO BID vitamin 03/10/16 10/11/22 History mcg (1,000 unit) tablet latanoprost 0.005 % eye drops 1 drp EACH EYE [facility] eye health 03/10/16 10/11/22 History coenzyme Q10 50 mg chewable tablet 30 mg PO DAILY 06/07/19 10/11/22 History warfarin 5 mg tablet 7.5 mg PO DAILY #135 tabs 12/28/23 Unknown Rx metoprolol tartrate 25 mg tablet 12.5 mg (1/2 x 25 mg) PO BID PRN 09/09/24 Unknown Rx afib #180 tabs timolol maleate 0.5 % eye drops 1 drp ophthalmic (eye) BID 09/26/24 Unknown History furosemide 20 mg tablet 20 mg PO .COMPLEX #5 tabs 09/27/24 Unknown Rx Allergy/AdvReac Type Severity Reaction Status Date / Time cat dander Allergy Mild congestion Verified 09/26/24 11:46 grass pollen Allergy Mild Cough, Verified 09/26/24 11:46 rhinitis house dust Allergy Mild Cough, Verified 09/26/24 11:46 rhinitis mold Allergy Mild Cough, Verified 09/26/24 11:46 rhinitis tree and shrub pollen Allergy Mild Cough, Verified 09/26/24 11:46 rhinitis Sulfa (Sulfonamide Allergy Itching Verified 09/26/24 11:46 Antibiotics) losartan AdvReac Severe dizziness, Verified 09/26/24 11:46 severe amlodipine AdvReac Intermediate dizziness Verified 09/26/24 11:46 lisinopril AdvReac Intermediate Nagging Verified 09/26/24 11:46 dry cough Benzodiazepines AdvReac Other Verified 09/26/24 11:46 diazepam (From Valium) AdvReac Other Verified 09/26/24 11:46 Family History Father Myocardial infarction from [place] age 61 Heart disease Diabetes Sister Breast cancer 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 Surgical History history vein surgery history TMJ surgery History of cataract surgery S/P excision of Ramos's neuroma History of carpal tunnel release History of tonsillectomy Social History household members: spouse housing: house Smoking Status: Never smoker alcohol intake: current alcohol intake frequency: a few times a month substance use type: does not use what type of physical activity do you participate in: none do you feel safe at home: Yes ROS <LES Gordon - Last Filed: 09/26/24 15:50> ROS ED ROS Narrative Constitutional: Negative for fever, chills, weight loss, weakness Eyes: Negative for vision loss, vision change, double vision ENT: Negative for any sore throat, ear pain, congestion Cardiovascular: Negative for any chest pain, tightness. Positive palpitations Respiratory: Negative for any cough, sputum production, hemoptysis. Positive for dyspnea, dyspnea on exertion, orthopnea Gastrointestinal: Negative for any abdominal pain, nausea, vomiting, diarrhea, constipation, blood in stool, blood in vomit : Negative for any urinary frequency, dysuria, retention, blood in urine Muscle skeletal: Negative for any neck pain, back pain Neurological: Negative for any headache, syncope. Positive for dyspnea, positive dyspnea Skin: Negative for any rashes, itching, abrasions, lacerations Psychiatric: Negative for any depression, anxiety, stress, suicidal ideation, homicidal ideation Hematologic: Negative for any excessive bruising, easy bleeding EXAM <LES Gordon - Last Filed: 09/26/24 15:50> Physical Exam Narrative Exam Narrative: Vital signs reviewed. HEET: Head normocephalic atraumatic, TMs clear bilaterally. Posterior pharynx is clear, moist mucous membranes. Nares clear bilaterally. Neck: Supple with no lymphadenopathy or tenderness. No signs of meningismus. Cardiac: No regular rate, atrial fibrillation no murmurs gallops or rubs, equal peripheral pulses bilaterally. Respiratory: Lungs clear to auscultation bilaterally. No chest tenderness. Abdomen: Soft, nontender, nondistended. No abdominal bruit or pulsatile masses. No hepatosplenomegaly Extremities: No peripheral edema, no signs of gross trauma or deformity. Active full range of motion of all extremities. Neuro: Cranial nerves II through XII intact, no focal neurological deficits. Skin: Clean dry and intact with no rash, purpura, petechiae, vesicles or pustules. Backs/flank: No CVA tenderness, no midline spinal tenderness, no deformity. Psych: Normal mood and affect. No SI, HI or acute psychosis. Const Vital Signs: 09/26/24 11:40 09/26/24 11:46 09/26/24 12:05 Temperature 97.9 F Temperature Source Oral Pulse Rate 109 H Respiratory Rate 18 Respiratory Effort Normal Blood Pressure 136/86 H Blood Pressure Mean 102 Pulse Ox 97 95 Oxygen Delivery Method Room Air Room Air 09/26/24 13:39 09/26/24 15:00 Temperature Temperature Source Pulse Rate 95 65 Respiratory Rate 18 13 Respiratory Effort Blood Pressure 122/62 H 154/94 H Blood Pressure Mean 82 114 Pulse Ox 96 97 Oxygen Delivery Method Room Air <Dr. Pedro Gusman MD - Last Filed: 09/27/24 09:17> Physical Exam Const Vital Signs: 09/26/24 11:40 09/26/24 11:46 09/26/24 12:05 Temperature 97.9 F Temperature Source Oral Pulse Rate 109 H Respiratory Rate 18 Respiratory Effort Normal Blood Pressure 136/86 H Blood Pressure Mean 102 Pulse Ox 97 95 Oxygen Delivery Method Room Air Room Air 09/26/24 13:39 09/26/24 15:00 Temperature Temperature Source Pulse Rate 95 65 Respiratory Rate 18 13 Respiratory Effort Blood Pressure 122/62 H 154/94 H Blood Pressure Mean 82 114 Pulse Ox 96 97 Oxygen Delivery Method Room Air [facility] <LES Gordon - Last Filed: 09/26/24 15:50> [facility] Lab Data Labs: Laboratory Results - last 24 hr 09/26/24 09/26/24 11:43 15:00 WBC 7.0 RBC 4.27 Hgb 13.4 Hct 41.9 MCV 98.1 MCH 31.4 MCHC 32.0 RDW Std Deviation 49.6 H RDW Coeff of Dulce 13.8 Plt Count 190 MPV 12.8 H Immature Gran % (Auto) 0.300 Neut % (Auto) 65.1 Lymph % (Auto) 21.7 [place] % (Auto) 9.2 Eos % (Auto) 2.6 Baso % (Auto) 1.1 H Absolute Neuts (auto) 4.5 Absolute Lymphs (auto) 1.51 Nucleated RBC % 0 PT 35.9 H INR 3.5 Sodium 140 Potassium 4.5 Chloride 109 H Carbon Dioxide 25.0 Anion Gap 6 BUN 25 H Creatinine 0.86 Estim Creat Clear Calc 56.04 Est GFR (MDRD) Af Amer 82 Est GFR (MDRD) Non-Af 68 BUN/Creatinine Ratio 29.0 H Glucose 106 Calcium 9.1 Troponin I High Sens 8 14 B-Natriuretic Peptide 240.3 H Radiography Diagnostic Testing: Clinical Impression(s) from Imaging Studies Chest X-Ray 09/26/24 12:01 IMPRESSION: No acute cardiopulmonary process. Reading Location: [facility] Treatment and Re-Evaluation :: Differential diagnosis includes however is not limited to: Chronic dyspnea, symptomatic bradycardia, atrial fibrillation, arrhythmia, electrolyte abnormality, CHF Patient appears generally well, vital signs are stable, patient is nontoxic-appearing. On my examination, the patient's heart rate is between 70 and 80, does look to be A-fib which has history of. Patient is on Coumadin. Patient states that the dyspnea has been ongoing for months. Patient did state that she does like her heart rates between between 50 and 60. If he gets to 70-80 she takes the metoprolol. I did speak with her that when she does exert herself her heart rate does need to increase to provide blood supply, because most of these episodes are when she is exerting herself. Patient received a cardiac workup. Chest x-ray, BNP. All radiologic examinations were read, reviewed by the emergency department attending. From these reads, a plan of care will be put in place. Follow-up with urology as needed. Laboratory values showed normal CBC, PT is 35.9 with INR of 3.5, this is stable, patient is on Coumadin. Initial troponin was 8 was negative. Patient's BNP was 240, slight increase since 4 to 5 days ago at 182.2. Patient received a second troponin. We did talk to the patient's student assistance counselor secondary to the A-flutter with variable block, recommended to cardiovert. When preparing to cardiovert, the patient's heart rate went into normal sinus rhythm. Currently waiting for repeat troponin. Once negative, his patient be discharged home, will follow-up outpatient. There is no evidence of any fluid overload, CHF exacerbation. Patient is stable. <Dr. Pedro Gusman MD - Last Filed: 09/27/24 09:17> [facility] MDM Narrative Medical decision making narrative: I have personally performed a face to face assessment of the patient and have reviewed the JEFF Note. I performed a substantive portion of the visit including all aspects of the following. My farr findings include: History is [ Remarkable for chief complaint of shortness of breath. She has had shortness of breath since 9 AM. She apparently did not take her metoprolol. Per EMS her monitor read her heart rate of 30. She was tachycardic for EMS. She contacted her student assistance counselor. She spoke with staff. Because of her complaint of shortness of breath they recommended she come to the emergency department. She denies history of VTE. She denies leg pain, swelling discoloration. She denies chest pain of any type. She denies hemoptysis. She denies fever, chills night sweats. She denies upper respiratory tract infectious symptoms. She denies GI symptoms. She denies hematemesis, melena dyschezia or melena.] Exam is is unremarkable. Patient appears in no respiratory distress. She is not tachypneic or hypoxic. She is not febrile. Heart rate is slightly rapid. EKG reveals a normal rate with atrial flutter with a variable block. HEENT exam is unremarkable pink conjunctivo-. Lungs reveal no wheeze rales rhonchi. There is symmetric breath sounds. Heart is slightly irregular. No murmur is appreciated. Lower extremity exam is no swelling, asymmetry, leg vein distention, palpable cords The Distribution Deep Venous System. Patient Does Have Palpable Distal Pulses. Neuroexam Is Nonfocal. Medical Decision Making differential diagnosis would include anxiety, congestive heart failure, pneumonia, pneumothorax, cardiac ischemia. Patient's dyspnea may be due to the fact that she is in a flutter with variable block. Workup included EKG, chest x-ray, appropriate blood work to evaluate for cardiac ischemia, CBC to assess white count differential as well as H&H. Electrolyte panel to assess renal function. Other additions or changes: [None] Lab Data Attestation: I reviewed the patient's lab results. Lab results narrative: CBC is unremarkable. Electrolyte panel is unremarkable. BUN/creatinine ratio is slightly elevated 29-1. Troponin is slightly elevated at 240. Patient had an echo of her heart February 2024 which revealed no significant abnormality with an EF of greater than 60%. First troponin is normal at 8. Labs: Laboratory Results - last 24 hr 09/26/24 09/26/24 11:43 15:00 WBC 7.0 RBC 4.27 Hgb 13.4 Hct 41.9 MCV 98.1 MCH 31.4 MCHC 32.0 RDW Std Deviation 49.6 H RDW Coeff of Dulce 13.8 Plt Count 190 MPV 12.8 H Immature Gran % (Auto) 0.300 Neut % (Auto) 65.1 Lymph % (Auto) 21.7 [place] % (Auto) 9.2 Eos % (Auto) 2.6 Baso % (Auto) 1.1 H Absolute Neuts (auto) 4.5 Absolute Lymphs (auto) 1.51 Nucleated RBC % 0 PT 35.9 H INR 3.5 Sodium 140 Potassium 4.5 Chloride 109 H Carbon Dioxide 25.0 Anion Gap 6 BUN 25 H Creatinine 0.86 Estim Creat Clear Calc 56.04 Est GFR (MDRD) Af Amer 82 Est GFR (MDRD) Non-Af 68 BUN/Creatinine Ratio 29.0 H Glucose 106 Calcium 9.1 Troponin I High Sens 8 14 B-Natriuretic Peptide 240.3 H Radiography Diagnostic Testing: Clinical Impression(s) from Imaging Studies Chest X-Ray 09/26/24 12:01 IMPRESSION: No acute cardiopulmonary process. Reading Location: [facility] EKG Initial EKG: Attestation: I personally reviewed and interpreted this EKG as follows: Interpretation: Sinus Rhythm and Atrial Flutter (Rate is 89. Patient has a variable block. QS duration 72 ms. QT duration 334 ms. Bailey is to the right.) Follow-up EKG: Attestation: I personally reviewed and interpreted this EKG as follows: Interpretation: Sinus Rhythm (Normal sinus rhythm rate of 67. There is a premature atrial complex noted. EKG is otherwise normal. [place] interval is 108 ms. QS duration 74 ms. 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 Garsia. Plan is cardioversion. Patient will be consented for deep sedation using propofol and cardioversion.) Treatment and Re-Evaluation :: Differential diagnosis includes however is not limited to: Chronic dyspnea, symptomatic bradycardia, atrial fibrillation, arrhythmia, electrolyte abnormality, CHF Patient appears generally well, vital signs are stable, patient is nontoxic-appearing. On my examination, the patient's heart rate is between 70 and 80, does look to be A-fib which has history of. Patient is on Coumadin. Patient states that the dyspnea has been ongoing for months. Patient did state that she does like her heart rates between between 50 and 60. If he gets to 70-80 she takes the metoprolol. I did speak with her that when she does exert herself her heart rate does need to increase to provide blood supply, because most of these episodes are when she is exerting herself. Patient received a cardiac workup. Chest x-ray, BNP. All radiologic examinations were read, reviewed by the emergency department attending. From these reads, a plan of care will be put in place. Comments:: Patient had something to eat and drink at 10 AM. Procedures <Dr. Pedro Gusman MD - Last Filed: 09/27/24 09:17> Procedural Sedation 1 (Initial Baseline): Consent Signed: Yes Any Problems With Anesthesia: No You/Your family experience fever (hyperthermia) w/anesthesia: No Sedation medication: Propofol Maliampati Score: Class II ASA Classification: E and II Comment:: Patient spontaneously converted to a sinus rhythm. Other Procedures Procedure(s): Patient was consented for cardioversion. Patient spontaneously converted to a sinus rhythm. Will obtain twelve-lead EKG. 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, Daytime hypersomnia, Elevated blood pressure reading with diagnosis of hypertension Instructions: ED Atrial Flutter, ED Dyspnea Prescriptions: No Action latanoprost 1 DROP bottle 1 drp EACH EYE QHS cholecalciferol (vitamin D3) 1,000 UNIT tablet 1,000 unit PO BID coenzyme Q10 50 MG tablet,chewable 30 mg PO DAILY timolol maleate 0.5 % drops 1 drp ophthalmic (eye) BID warfarin 5 mg tablet 7.5 mg PO DAILY Qty: 135 3RF Protocol: Dose Management Condition: Thursday Dose/Route: 7.5 mg Instruction: 1.5 x 5 mg tablets Condition: Thursday Dose/Route: 5 mg Instruction: 1 x 5 mg tablet Condition: Thursday Dose/Route: 5 mg Instruction: 1 x 5 mg tablet Condition: Thursday Dose/Route: 7.5 mg Instruction: 1.5 x 5 mg tablets Condition: Dose/Route: 7.5 mg Instruction: 1.5 x 5 mg tablets Condition: Thursday Dose/Route: 7.5 mg Instruction: 1.5 x 5 mg tablets Condition: Thursday Dose/Route: 7.5 mg Instruction: 1.5 x 5 mg tablets Protocol Text: Adjustment Start Date: Thursday09/23/24 INR Value: 3.2 INR Date: 09/22/24 Recheck Date: 10/07/24 metoprolol tartrate 25 mg tablet 12.5 mg PO BID PRN (Reason: afib) Qty: 180 3RF furosemide 20 mg tablet 20 mg PO .COMPLEX Qty: 5 0RF Rx Instructions: 20 mg orally daily for 5 days; Primary Care Provider: Moon Malone Referrals: Moon Malone MD [Primary Care Provider] - Dominguez Garsia MD [Med Staff - Active Staff] - Activity Restrictions/Additional Instructions: Please continue to follow-up outpatient. Print Language: Slovak Disposition Disposition: Home, Self Care Discharge Date/Time: 09/26/24 16:00
[2024-09-26 12:25] LABS: Absolute Lymphocyte Count 1.51 X10^3/uL (0.83-4.51); Absolute Neutrophil Count 4.5 X10^3/uL (2.0-7.7); Basophil# 0.08 X10^3/uL; Basophil% 1.1 % (0-1); Eosinophil# 0.18 X10^3/uL; Eosinophils% 2.6 % (0-5); Hematocrit 41.9 % (37-47); Hemoglobin 13.4 g/dL (12.0-15.0); Lymphocyte # 1.51 X10^3/ul (0.83-4.51); Lymphocyte % 21.7 % (19-41); Mean Corpuscular Hgb 31.4 pg (27.0-32.0); Mean Corpuscular Volume 98.1 fL (81-99); Mean Platelet Vol. 12.8 fl (6.2-12.0); Monocyte# 0.64 X10^3/uL; Monocyte% 9.2 % (0-10); NRBC Flagged by Analyzer 0 % (0-5); Neutrophil # 4.53 X10^3/uL (2.7-7.7); Neutrophil % 65.1 % (47-70); Platelet Count 190 K/mm3 (150-450); RBC Distribution Width CV 13.8 % (11.6-14.6); RBC Distribution Width SD 49.6 fl (35.1-43.9); Red Blood Count 4.27 M/mm3 (4.2-5.4)
[2024-09-26 12:39] LABS: Anion Gap 6 (5-15); BUN 25 mg/dL (7-18); Calcium,Total 9.1 mg/dL (8.5-10.1); Chloride 109 mmol/L (98-107); Creatinine, Serum 0.86 mg/dL (0.55-1.02); EST Glomerular Filtration Rate 68 mL/min (>60); Est Glom Filt Rate - Afr Amer 82 mL/min (>60); Estimated Creatinine Clearance 56.04 ml/min; Glucose 106 mg/dL (74-106); Potassium 4.5 mmol/L (3.5-5.1); Sodium Level 140 mmol/L (136-145); Troponin-I HS (w/2H Reflex) 8 pg/mL (3.0-54.0)
[2024-09-26 12:40] LABS: International Normalized Ratio 3.5; Prothrombin Time (Protime)PT. 35.9 SECONDS (11.7-14.9)
[2024-09-26 12:50] LABS: BNP,B-Type NATRIURETIC PEPTIDE 240.3 pg/mL (0-100)
[2024-09-26 13:39] VITALS: BP 122/62; PULSE 95; RESP 18; O2SAT 96
[2024-09-26 14:15] LABS: Reflex Troponin-HS? (from REC) Y
[2024-09-26 14:38] VITALS: O2SAT 97
[2024-09-26 15:00] VITALS: BP 154/94; PULSE 65; RESP 13; O2SAT 97
--- NOTE | 2024-09-26 15:01 | EKG12_ITS ---
Test Reason : EKGA Blood Pressure : */* mmHG Vent. Rate : 89 BPM Atrial Rate : * BPM P-R Int : * ms QRS Dur : 72 ms QT Int : 334 ms P-R-T Axes : * 201 139 degrees QTcB Int : 406 ms Poor data quality, interpretation may be adversely affected Atrial fibrillation Right superior axis deviation Abnormal ECG Confirmed by ANGELA BAILEY, HERMAN ([id number]), department editor MEGAN GUTIERREZ ([id number]) on 09/27/2024 8:49:56 AM Referred By: Confirmed By: HERMAN MILLER MD
[2024-09-26 15:40] LABS: Troponin-I HS 14 pg/mL (3.0-54.0)
== END 2024-09-26 16:00 | disposition home or self-care (01) ==
PROVIDERS: Nurse Practitioner; Emergency Provider Emergency Medicine; PCP Internal Medicine; Visit Provider Emergency Medicine
DX: I48.92 Unspecified atrial flutter (principal); I11.0 Hypertensive heart disease with heart failure; I50.9 Heart failure, unspecified; I48.0 Paroxysmal atrial fibrillation; Z79.01 Long term (current) use of 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; J45.909 Unspecified asthma, uncomplicated; Z79.899 Other long term (current) drug therapy; R06.00 Dyspnea, unspecified; G47.10 Hypersomnia, unspecified
CPT/HCPCS: 71045; 80048; 83880; 84484; 85025; 85610; 93005; 99285; A4216

== ENCOUNTER → 2024-10-11 | Outpatient (CLI) | payer BC, SELFPAY | END | disposition home or self-care (01) | LOC: LAB 11:00 | PROVIDERS: PCP Internal Medicine; Referring Provider Physician Assistant Medical; Visit Provider Physician Assistant Medical | DX: I48.92 Unspecified atrial flutter (principal); I48.0 Paroxysmal atrial fibrillation; R06.02 Shortness of breath; Z51.81 Encounter for therapeutic drug level monitoring; Z79.899 Other long term (current) drug therapy; Z79.01 Long term (current) use of 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 ==

== ENCOUNTER → 2024-10-13 | Outpatient (CLI) | payer BC, SELFPAY ==
[2024-10-13 14:04] LABS: BNP,B-Type NATRIURETIC PEPTIDE 146.7 pg/mL (0-100)
== END | disposition home or self-care (01) ==
LOC: LAB 12:20
PROVIDERS: PCP Internal Medicine; Referring Provider Internal Medicine Cardiovascular Disease; Visit Provider Internal Medicine Cardiovascular Disease
DX: R06.02 Shortness of breath (principal)
CPT/HCPCS: 36415; 83880

== ENCOUNTER 2024-11-04 14:30 | Outpatient (RCR) | payer BC, SELFPAY ==
--- NOTE | 2024-11-02 15:53 | HP.PTEVAL ---
Patient's Visit Information Visit Information Visit Information: CROW BARTHOLOMEW is a 78 year old F referred to Physical Therapy by Dr. Moon Malone MD with a diagnosis of Balance disorder and UE/LE weakness.. Date of Evaluation: 11/02/24 Physical Therapist: Ousmane Montero, DPT, OCS, CSCS Visit Plan Frequency: 2x /Week Duration: 4-6 Weeks Plan: 2x/week for 4-6 weeks for IE HEP, pt to walk with rollator one mile to tolerance each day consistently. in clinic plase tach and progress to I with UE and LE strnegth in WB, FW weight shift, vestibular balance. Use pics and list. Consider gym if patint willing to go to gym. Subjective Subjective: Feels like balance is off. Wors lately over the last year. 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 Gained 10# and that may be throwing her off. Dtr moved in with her due to health concerns and is eating more. No neuropathy, no spinning, feels unsteady and this is most of the time and no positions make her worse. May stagger to the left. Fell onto bed 2x. Uses rollator when goes for a walk. Uses push cart at the store. Fell one time catching R foot on floor threshold. Does not feel like she needs AD. Was drifting to L one time in [place] and thought it was time to have PT. Lives with dtr. No steps at home except one at front door. has ramp in garage. basic ADLs: all I. Hobbies: Dtr to doctor. 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 No regualr exercises Cant get out of chair without UE. Walking one mil per day for 3 days now with rollator. Objective Objective: Circulation feet cold and whitish. 97% spO2 and 72 HR after walking. Walks slowly with diminished FW weight shift intoPT I no AD. Walks 200 feet without a problem. Steps are reciprocally with one rail but very tired and SOB after 8 steps. Chair transfer I requiring UE and very tird aftre 30 SSTS short of breath for 10 seconds almost as in a panic attack but recovers quickly HS adn quads mod tight at -30 90/90 test. AROM hips and knee adn ankles WFL othrwise. rflexes 2/3 patella and ahilles B. sensation wNL to gross light touch in LE B. strength ankles 4-/5, knees 4-/5 and hips 3/5 abd and eext adn contralateral instability. Unable to hip flex in sitting with arms in air(needs to stabilize with UE on table.) No positional changes create any dizzyness today. Balance/Special Test Scores Functional Gait Assessment Score: 22 % Disability: 26.6700 CATSIB Score (Max score 120 seconds): 100 Dizziness Score: 34 TUG Test Time Seconds: 8 30 Second Chair Rise Test Seconds: 11 Goals Goal 1:: I appropriate HEP balance, UE/LE strength to limit future problems Goal Time Frame: 4-6 Weeks Goal 2:: 13 30 SSTS to show improved strength Goal Time Frame: 4-6 Weeks Goal 3:: 24 on FGA to show improved balance Goal Time Frame: 4-6 Weeks Goal 4:: Pt feel 70% better in overall balance and mobility Goal Time Frame: 4-6 Weeks Goal 5:: stand from chair without UE usage to show improved FW weight shift. Goal Time Frame: 4-6 Weeks Rehabilitation Potential Physical Therapy Diagnosis: weigth shift deficits, weakness in UE and LE limiting function. Rehabilitation Potential: Good Anticipated Interventions Patient/Client Instruction: Educate patient on: Condition and Plan of Care For the Purpose of:: To improve nutrient delivery to tissue, To improve muscle performance and motor function, To increase tolerance to activity/condition/position, To improve ability of physical actions for home/community/work/leisure and To improve gait and locomotor functions Therapeutic Exercise to Include: Strength training, Balance training, Flexibilty training and Gait and locomotor training For the Purpose of:: To improve nutrient delivery to tissue, To improve muscle performance and motor function, To increase tolerance to activity/condition/position, To improve gait and locomotor functions and To improve safety Text: Thank you for the opportunity to evaluate your patient. For Medicare and Medicare HMO plans, please review the plan of care and approve it. It will need to be FAXED BACK to us at [phone] for Medicare purposes. For Medicare only, by signing this I certify the plan of care. Please let me know if there are questions or concerns regarding this plan of care. Physician Signature: Date:
--- NOTE | 2024-12-28 08:48 | HP.PT.NRP ---
Patient Information Patient Information: CROW BARTHOLOMEW was seen in my office for initial evaluation on 11/02/24. The following Plan of Care was established for this patient: POC Established Initial Frequency: 2x /Week Initial Duration: 4-6 Weeks Anticipated Interventions Patient/Client Instruction: Educate patient on: Condition and Plan of Care For the Purpose of:: To improve nutrient delivery to tissue, To improve muscle performance and motor function, To increase tolerance to activity/condition/position, To improve ability of physical actions for home/community/work/leisure and To improve gait and locomotor functions Therapeutic Exercise to Include: Strength training, Balance training, Flexibilty training and Gait and locomotor training For the Purpose of:: To improve nutrient delivery to tissue, To improve muscle performance and motor function, To increase tolerance to activity/condition/position, To improve gait and locomotor functions and To improve safety Last Seen Last Seen: This patient was last seen in our office 11/04/24. Pertinent comments regarding their Physical therapy will appear below: Pt seen 2 visits of POC but has not returned for any further visits/ at this point, it has been over 6 weeks and I will discontinue due to nonattendance. At this point I will be discontinuing this patient from physical therapy. I would be happy to see this patient again in the future if found appropriate by the physician. Thank you! Ousmane Montero, DPT, OCS, CSCS Balance/Gait/Functional tests Balance/Special Test Scores Functional Gait Assessment Score: 22 % Disability: 26.6700 CATSIB Score (Max score 120 seconds): 100 Dizziness Score: 34 TUG Test Time Seconds: 8 Tug Test: <10 sec.=free mobile 30 Second Chair Rise Test Seconds: 11
== END 2024-11-04 19:00 | disposition home or self-care (01) ==
LOC: PT 14:30
PROVIDERS: PCP Internal Medicine; Referring Provider Internal Medicine; Visit Provider Internal Medicine
DX: R26.89 Other abnormalities of gait and mobility (principal); R29.898 Other symptoms and signs involving the musculoskeletal system; R42 Dizziness and giddiness
CPT/HCPCS: 97110; 97162

== ENCOUNTER → 2024-11-11 | Outpatient (CLI) | payer BC, SELFPAY ==
--- NOTE | 2024-11-11 13:05 | ECHOD_ITS ---
Reason For Study Reason For Study: SOB Procedure This was a 2D Doppler, Color Flow transthoracic echocardiogram. Exam performed in department. Left Ventricle Normal LV size. The left ventricular ejection fraction is 70 %. Stage 1 diastolic dysfunction. No regional wall motion abnormalities noted. Right Ventricle Normal RV size. Normal systolic function. Atria Normal left atrium. Normal right atrium. Mitral Valve Normal mitral valve. Tricuspid Valve Normal tricuspid valve. Mild (1+) tricuspid valve insufficiency. Pulmonary artery systolic pressure is 35 mmHg. Aortic Valve Normal aortic valve. Pulmonic Valve Normal pulmonic valve. Great Vessels Normal aortic root. Pericardium/Pleural No pericardial effusion. MMode/2D Measurements & Calculations LVIDd: 3.9 cm IVSd: 0.90 cm LVOT diam: 2.0 cm LVIDs: 2.4 cm LVPWd: 0.90 cm LVOT area: 3.1 cm2 RVDd: 3.9 cm FS: 37.8 % Ao root diam: 3.1 cm LAV(MOD-bp): 74.5 ml LVAd ap4: 23.9 cm2 LAV(MOD-bp) Indexed: 41.5 ml/m2 LVLd ap4: 7.8 cm LAV(MOD-sp2): 58.9 ml EDV(MOD-sp4): 62.6 ml LAV(MOD-sp4): 69.3 ml EDV(sp4-el): 62.2 ml LVAs ap4: 11.4 cm2 LVLs ap4: 5.9 cm ESV(MOD-sp4): 20.3 ml ESV(sp4-el): 18.5 ml EF(MOD-sp4): 67.6 % EF(sp4-el): 70.3 % SV(MOD-sp4): 42.3 ml SV(sp4-el): 43.7 ml LA A4 area: 23.9 cm2 SI(MOD-sp4): 23.6 ml/m2 LA dimension(2D): 3.4 cm RA A4 area: 16.8 cm2 Time Measurements MV dec time: 0.20 sec Doppler Measurements & Calculations MV E max cy: 66.4 cm/sec Lat Peak E' Cy: 13.9 cm/sec Med Peak E' Cy: 9.6 cm/sec MV A max cy: 68.2 cm/sec E/E' lat: 4.8 E/E' med: 6.9 MV E/A: 0.97 MV V2 max: 75.6 cm/sec Ao V2 max: 182.9 cm/sec MV max P.3 mmHg MV dec slope: 326.1 cm/sec2 Ao max P.5 mmHg MV V2 mean: 48.2 cm/sec Ao V2 mean: 128.4 cm/sec MV mean P.0 mmHg Ao mean P.4 mmHg MV V2 VTI: 26.6 cm Ao V2 VTI: 40.3 cm AV (velocity ratio): 0.96 MVA(VTI): 4.5 cm2 MARK(I,D): 3.0 cm2 MARK(V,D): 2.5 cm2 LV V1 max: 145.8 cm/sec SV(LVOT): 120.5 ml PA V2 max: 128.3 cm/sec LV V1 max P.5 mmHg PA V2 mean: 86.0 cm/sec LV V1 mean P.9 mmHg LV V1 mean: 42.9 cm/sec LV V1 VTI: 38.6 cm TR max cy: 276.3 cm/sec TR max P.5 mmHg ECHO/Echo Complete Interpretation Summary Normal LV size. The left ventricular ejection fraction is 70 %. Stage 1 diastolic dysfunction. Ordering Physician: Yinka Lovelace Referring Physician: Yinka Lovelace Performed By: Angie Crook RCS
== END | disposition home or self-care (01) ==
LOC: CVS 13:02
PROVIDERS: PCP Internal Medicine; Referring Provider Internal Medicine Cardiovascular Disease; Visit Provider Internal Medicine Cardiovascular Disease
DX: R06.02 Shortness of breath (principal)
CPT/HCPCS: 93306

== ENCOUNTER 2024-11-18 16:02 | Outpatient (RCR) | payer BC, SELFPAY ==
[2024-09-23 21:04] VITALS: BMI 24.5
[2024-11-01 09:25] LABS: INR Fingerstick 3.1; Prothrombin Time Fingerstick 32.5 SEC (11.7-14.9)
[2024-11-11 14:06] LABS: INR Fingerstick 2.3
[2024-11-18 16:37] LABS: International Normalized Ratio 2.7; Prothrombin Time (Protime)PT. 29.3 SECONDS (11.7-14.9)
[2024-11-18 17:47] LABS: Anion Gap 15 (5-15); BUN 23 mg/dL (4-19); BUN/Creat Ratio 23.4 RATIO (10-20); Calcium,Total 9.2 mg/dL (7.6-11.0); Carbon Dioxide 21.6 mmol/L (21.0-32.0); Chloride 103 mmol/L (98-108); EST Glomerular Filtration Rate 58 (>60); Glucose 73 mg/dL (70-99); Potassium 4.2 mmol/L (3.3-5.1); Sodium Level 139 mmol/L (133-145)
== END 2024-11-18 18:00 | disposition home or self-care (01) ==
LOC: LAB 16:02
PROVIDERS: Internal Medicine Cardiovascular Disease; PCP Internal Medicine; Referring Provider Nurse Practitioner Family; Visit Provider Nurse Practitioner Family
DX: Z79.01 Long term (current) use of 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
CPT/HCPCS: 36415; 36416; 80048; 85610

== ENCOUNTER → 2024-11-22 | Outpatient (CLI) | payer BC, SELFPAY | END | disposition home or self-care (01) | LOC: PSN 11:00 | PROVIDERS: PCP Internal Medicine; Referring Provider Physician Assistant Medical; Visit Provider Physician Assistant Medical | DX: R00.2 Palpitations (principal); I48.91 Unspecified atrial fibrillation; R00.0 Tachycardia, unspecified | CPT/HCPCS: 93225; 93226 ==

== ENCOUNTER 2024-11-28 14:24 | Emergency (ER) | payer BC, SELFPAY ==
[2024-11-28 14:25] VITALS: BP 143/71; PULSE 54; RESP 14; TEMP 36.6; O2SAT 93
[2024-11-28 14:30] VITALS: BP 139/81; PULSE 56; RESP 17; TEMP 36.6; O2SAT 96; O2SAT 98; BMI 28.0
--- NOTE | 2024-11-28 15:14 | EKG12_ITS ---
Test Reason : SOB Blood Pressure : */* mmHG Vent. Rate : 56 BPM Atrial Rate : 56 BPM P-R Int : 190 ms QRS Dur : 72 ms QT Int : 404 ms P-R-T Axes : 63 -12 44 degrees QTcB Int : 389 ms Sinus bradycardia Otherwise normal ECG Confirmed by ANGELA BAILEY, HERMAN ([id number]), website/blog editor MEGAN GUTIERREZ ([id number]) on 11/29/2024 8:08:35 AM Referred By: Confirmed By: HERMAN MILLER MD
--- NOTE | 2024-11-28 15:16 | ED.VIS.DYS ---
HPI History of Present Illness Chief Complaint: Shortness of Breath Informant: patient and EMS Narrative Narrative: 78-year-old female presenting to the emergency room chief complaint of dyspnea. Patient called EMS. Upon their arrival patient was in a sinus rhythm with a pulse ox around 96%. She states that she felt better after they gave her oxygen. She was noted to be 97 to 98% percent on room air by nursing. Patient states that she has a history of paroxysmal atrial fibrillation and because of resting bradycardia typically does a pill in the pocket when she goes into A-fib. She has had recent echocardiogram as well as cardiology visit and Holter monitoring which showed sinus rhythm with episodes of A-fib. Her echo showed an EF of 70%. Patient has questions regarding BMP because she has had a couple of those test recently and states that she was told that she does not have CHF. Patient takes Coumadin. She notes a history of asthma as a child and again in her 40s but states that she is not on asthma medication as she has had normal PFTs. Patient notes a chronic cough but states that that is most likely due to her allergies. She states that this morning around 3:00 she woke up and felt short of breath. Her heart rate was in the 120s so she took her extra metoprolol. Patient does note a history of anxiety and has been under life stressors recently. 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) use of 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 Paroxysmal atrial fibrillation Change in bowel habit Asthma Near syncope Atrial tachycardia (10/14/18) Varicose vein of leg Vestibular neuritis Osteopenia Osteoarthritis Chronic venous insufficiency Glaucoma Essential (primary) hypertension Home Medications ?Medication ?Instructions ?Recorded ?Last Taken ?Type cholecalciferol (vitamin D3) 25 1,000 unit PO BID vitamin 03/10/16 11/27/24 History mcg (1,000 unit) tablet latanoprost 0.005 % eye drops 1 drp EACH EYE [facility] eye health 03/10/16 11/27/24 History coenzyme Q10 50 mg chewable tablet 30 mg PO DAILY 06/07/19 11/27/24 History metoprolol tartrate 25 mg tablet 12.5 mg (1/2 x 25 mg) PO BID PRN 09/09/24 11/28/24 Rx afib #180 tabs timolol maleate 0.5 % eye drops 1 drp ophthalmic (eye) BID 09/26/24 11/28/24 History warfarin 5 mg tablet 5 mg PO MOWEFR 11/28/24 11/25/24 History warfarin 5 mg tablet 7.5 mg PO SUTUTHSA 11/28/24 11/27/24 History Allergy/AdvReac Type Severity Reaction Status Date / Time cat dander Allergy Mild congestion Verified 10/13/24 11:30 grass pollen Allergy Mild Cough, Verified 10/13/24 11:30 rhinitis house dust Allergy Mild Cough, Verified 10/13/24 11:30 rhinitis mold Allergy Mild Cough, Verified 10/13/24 11:30 rhinitis tree and shrub pollen Allergy Mild Cough, Verified 10/13/24 11:30 rhinitis Sulfa (Sulfonamide Allergy Itching Verified 10/13/24 11:30 Antibiotics) losartan AdvReac Severe dizziness, Verified 10/13/24 11:30 severe amlodipine AdvReac Intermediate dizziness Verified 10/13/24 11:30 lisinopril AdvReac Intermediate Nagging Verified 10/13/24 11:30 dry cough Benzodiazepines AdvReac Other Verified 10/13/24 11:30 diazepam (From Valium) AdvReac Other Verified 10/13/24 11:30 Family History Father Myocardial infarction from [place] age 61 Heart disease Diabetes Sister Breast cancer 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 Surgical History history vein surgery history TMJ surgery History of cataract surgery S/P excision of Ramos's neuroma History of carpal tunnel release History of tonsillectomy Social History household members: spouse housing: house Smoking Status: Never smoker alcohol intake: current alcohol intake frequency: a few times a month substance use type: does not use what type of physical activity do you participate in: none do you feel safe at home: Yes ROS ROS ED Constitutional Constitutional ED: Denies chills or weight loss Eyes Eyes: Denies change in vision or diplopia ENT ENT ED: Denies ear pain, rhinorrhea or sore throat Cardiovascular Cardiovascular: Denies chest pain, orthopnea, palpitations or racing heartbeat Respiratory/Chest Respiratory/Chest: Reports cough and dyspnea; Denies orthopnea Gastrointestinal Gastrointestinal: Denies abdominal pain, diarrhea, nausea or vomiting Genitourinary Genitourinary ED: Denies dysuria, hematuria or urinary frequency Musculoskeletal Musculoskeletal: Denies arthralgias or myalgias Integumentary Denies abscess or rash Neurologic Neurologic: Denies headache(s) or weakness Psychiatric Psychiatric: Denies anxiety, depression, suicidal ideation or suicidal thoughts Endocrine Endocrinology: Denies polydipsia, polyphagia or polyuria Allergic/Immunologic Allergic/Immunologic ED: Denies mouth swelling, tongue swelling or urticaria EXAM Physical Exam Const Vital Signs: 11/28/24 14:25 11/28/24 14:30 11/28/24 14:30 Temperature 97.9 F 97.8 F Temperature Source Oral Temporal Pulse Rate 54 L 56 L Respiratory Rate 14 17 Respiratory Effort Normal Respiratory Depth Normal Respiratory Pattern Normal Blood Pressure 143/71 H 139/81 H Blood Pressure Mean 95 100 Pulse Ox 93 98 Oxygen Delivery Method Room Air Room Air Room Air 11/28/24 15:25 11/28/24 16:00 11/28/24 17:00 Temperature Temperature Source Pulse Rate 51 L 53 L 61 Respiratory Rate 19 H 18 18 Respiratory Effort Respiratory Depth Respiratory Pattern Blood Pressure 133/60 H 143/67 H 161/73 H Blood Pressure Mean 84 92 102 Pulse Ox 95 95 97 Oxygen Delivery Method Room Air Room Air Room Air Positive well nourished and well developed General Appearance ED: well developed HEENT Reports normocephalic, head/scalp atraumatic and moist mucous membranes Eyes PERRL and EOMs intact bilaterally Neck no lymphadenopathy, supple and no JVD Resp normal respiratory effort and clear to auscultation bilaterally Cardio regular rate, regular rhythm and no murmurs GI normal to inspection, nondistended, normoactive bowel sounds and non-tender Palpation: soft Back/Spine no CVA tenderness and normal ROM Extremity normal to inspection General Extremety ED: Negative for edema General Extremity: Negative for edema Neuro oriented x3 and CN's II-XII intact bilaterally Sensorium / Orientation: alert Motor Exam: strength 5/5 throughout Psych mental status grossly normal Mood & Affect: Negative for depressed or tearful Skin no rashes or lesions noted and no wounds MDM MDM MDM Narrative Medical decision making narrative: Differential diagnosis includes but not limited to systolic/diastolic CHF acute coronary syndrome pulmonary embolism anemia dehydration pleural effusion aortic dissection pneumonia pneumothorax My independent interpretation of the chest x-ray is no acute process. Her INR is 2.7 so I doubt that pulmonary embolism is likely. Troponin is 9 BNP is 590. Creatinine is 0.83. Hemoglobin is 12 white count 6.1. Patient has remained in normal sinus rhythm. Her EKG is nonischemic. Patient ambulates and is not hypoxic or significantly symptomatic with exertion. I believe the patient can be discharged home to follow-up with her doctors return if worsening or concerns History & Record Review Discussion w/independent historian: Patient Lab Data Attestation: I reviewed the patient's lab results. Labs: Laboratory Results - last 24 hr 11/28/24 14:55 WBC 6.1 RBC 3.76 L Hgb 12.0 Hct 37.5 MCV 99.7 H MCH 31.9 MCHC 32.0 RDW Std Deviation 50.2 H RDW Coeff of Dulce 13.7 Plt Count 176 MPV 12.9 H Immature Gran % (Auto) 0.300 Neut % (Auto) 63.5 Lymph % (Auto) 23.0 Kidder % (Auto) 10.3 H Eos % (Auto) 1.8 Baso % (Auto) 1.1 H Absolute Neuts (auto) 3.9 Absolute Lymphs (auto) 1.41 Nucleated RBC % 0 PT 29.6 H INR 2.7 Sodium 140 Potassium 4.6 Chloride 105 Carbon Dioxide 25.3 Anion Gap 10 BUN 25 H Creatinine 0.83 Estim Creat Clear Calc 57.07 Est GFR (MDRD) Non-Af 72 BUN/Creatinine Ratio 29.7 H Glucose 118 H Calcium 9.3 Troponin T High Sens 9 NT pro BNP II 590 Radiography Diagnostic Testing: Clinical Impression(s) from Imaging Studies Chest X-Ray 11/28/24 15:21 IMPRESSION: 1. No visible acute cardiopulmonary findings 2. Additional description as above. Reading Location: [facility] EKG Initial EKG: Attestation: I personally reviewed and interpreted this EKG as follows: Comments: Sinus bradycardia at a ventricular rate of 56 bpm Discharge Plan Triage Chief Complaint: Shortness of Breath ED Provider: Isreal Ohara Dx/Rx/DC Orders Clinical Impression: Acute dyspnea, Paroxysmal atrial fibrillation, Anticoagulated on Coumadin Instructions: ED Dyspnea Prescriptions: No Action latanoprost 1 DROP bottle 1 drp EACH EYE QHS cholecalciferol (vitamin D3) 1,000 UNIT tablet 1,000 unit PO BID coenzyme Q10 50 MG tablet,chewable 30 mg PO DAILY warfarin 5 mg tablet 5 mg PO warfarin 5 mg tablet 7.5 mg PO Protocol: Dose Management Condition: Thursday Dose/Route: 7.5 mg Instruction: 1.5 x 5 mg tablets Condition: Thursday Dose/Route: 5 mg Instruction: 1 x 5 mg tablet Condition: Thursday Dose/Route: 7.5 mg Instruction: 1.5 x 5 mg tablets Condition: Thursday Dose/Route: 5 mg Instruction: 1 x 5 mg tablet Condition: Dose/Route: 7.5 mg Instruction: 1.5 x 5 mg tablets Condition: Thursday Dose/Route: 5 mg Instruction: 1 x 5 mg tablet Condition: Thursday Dose/Route: 7.5 mg Instruction: 1.5 x 5 mg tablets Protocol Text: Adjustment Start Date: Thursday11/18/24 INR Value: 2.7 INR Date: 11/18/24 Recheck Date: 12/02/24 timolol maleate 0.5 % drops 1 drp ophthalmic (eye) BID metoprolol tartrate 25 mg tablet 12.5 mg PO BID PRN (Reason: afib) Qty: 180 3RF Primary Care Provider: Moon Malone Referrals: Moon Malone MD [Primary Care Provider] - 1 Week Print Language: Tamazight Disposition Disposition: Home, Self Care
--- NOTE | 2024-11-28 15:21 | RAD_ITS ---
PROCEDURE: CHEST 1 VIEW (PORTABLE) (RADCXPA_P), 11/28/2024 REASON FOR EXAM: DYSPNEA TECHNIQUE: A single portable AP view of the chest was obtained. COMPARISON: 09/26/2024 FINDINGS: Heart: Unremarkable. Mediastinum: Atherosclerosis. Lungs/pleura: No focal consolidation. No sizeable pleural effusion or visible pneumothorax. Bones: Suspect demineralization. Lines and support devices: None. Other: Similar implantable loop recorder.. RAD/Chest 1 View (Portable) IMPRESSION: 1. No visible acute cardiopulmonary findings 2. Additional description as above. Reading Location: [id number]
[2024-11-28 15:25] VITALS: BP 133/60; PULSE 51; RESP 19; O2SAT 95
[2024-11-28 15:30] LABS: Absolute Lymphocyte Count 1.41 X10^3/uL (0.83-4.51); Absolute Neutrophil Count 3.9 X10^3/uL (2.0-7.7); Basophil# 0.07 X10^3/uL; Basophil% 1.1 % (0-1); Eosinophil# 0.11 X10^3/uL; Eosinophils% 1.8 % (0-5); Hematocrit 37.5 % (37-47); Lymphocyte # 1.41 X10^3/ul (0.83-4.51); Mean Corpuscular Hgb 31.9 pg (27.0-32.0); Mean Corpuscular Volume 99.7 fL (81-99); Mean Platelet Vol. 12.9 fl (6.2-12.0); Monocyte# 0.63 X10^3/uL; Monocyte% 10.3 % (0-10); NRBC Flagged by Analyzer 0 % (0-5); Neutrophil # 3.89 X10^3/uL (2.7-7.7); Neutrophil % 63.5 % (47-70); Platelet Count 176 K/mm3 (150-450); RBC Distribution Width CV 13.7 % (11.6-14.6); RBC Distribution Width SD 50.2 fl (35.1-43.9); Red Blood Count 3.76 M/mm3 (4.2-5.4); White Blood Count 6.1 K/mm3 (4.4-11.0)
[2024-11-28 15:52] LABS: International Normalized Ratio 2.7; Prothrombin Time (Protime)PT. 29.6 SECONDS (11.7-14.9)
[2024-11-28 16:00] VITALS: BP 143/67; PULSE 53; RESP 18; O2SAT 95
[2024-11-28 16:15] LABS: Anion Gap 10 (5-15); BUN 25 mg/dL (4-19); BUN/Creat Ratio 29.7 RATIO (10-20); Calcium,Total 9.3 mg/dL (7.6-11.0); Carbon Dioxide 25.3 mmol/L (21.0-32.0); Chloride 105 mmol/L (98-108); Creatinine, Serum 0.83 mg/dL (0.70-1.20); EST Glomerular Filtration Rate 72 (>60); Estimated Creatinine Clearance 57.07 ml/min (50-250); Glucose 118 mg/dL (70-99); Potassium 4.6 mmol/L (3.3-5.1); Pro- Brain NATRIURETIC PEPTIDE 590 pg/mL (<=1800); Sodium Level 140 mmol/L (133-145)
[2024-11-28 16:38] LABS: Troponin T High Sensitivity 9 ng/L (<=14)
[2024-11-28 17:00] VITALS: BP 161/73; PULSE 61; RESP 18; O2SAT 97
[2024-11-28 17:04] VITALS: O2SAT 96
== END 2024-11-28 17:58 | disposition home or self-care (01) ==
PROVIDERS: Emergency Provider Emergency Medicine; PCP Internal Medicine; Visit Provider Emergency Medicine
DX: R06.00 Dyspnea, unspecified (principal); I48.0 Paroxysmal atrial fibrillation; F41.9 Anxiety disorder, unspecified; I10 Essential (primary) hypertension; Z79.01 Long term (current) use of 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; R05.3 Chronic cough
CPT/HCPCS: 71045; 80048; 83880; 84484; 85025; 85610; 93005; 99285; A4216

== ENCOUNTER 2025-01-05 15:13 | Outpatient (RCR) | payer BC, SELFPAY ==
[2024-11-21 21:42] VITALS: BMI 24.5
[2025-01-05 15:25] LABS: INR Fingerstick 3.1; Prothrombin Time Fingerstick 32.4 SEC (11.7-14.9)
== END 2025-01-05 18:00 | disposition home or self-care (01) ==
LOC: LAB 15:13
PROVIDERS: PCP Internal Medicine; Referring Provider Nurse Practitioner Family; Visit Provider Nurse Practitioner Family
DX: Z79.01 Long term (current) use of 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
CPT/HCPCS: 36416; 85610

== ENCOUNTER 2025-03-08 09:58 | Outpatient (RCR) | payer BC, SELFPAY ==
[2025-01-21 20:33] VITALS: BMI 24.5
[2025-03-09 14:07] LABS: INR Fingerstick 2.8
== END 2025-03-23 20:48 | disposition home or self-care (01) ==
LOC: LAB 09:58
PROVIDERS: PCP Internal Medicine; Referring Provider Nurse Practitioner Family; Visit Provider Nurse Practitioner Family
DX: I48.0 Paroxysmal atrial fibrillation (principal); Z79.01 Long term (current) use of 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
CPT/HCPCS: 36416; 85610

== ENCOUNTER 2025-03-15 14:38 | Emergency (ER) | payer BC, SELFPAY ==
[2025-03-15 14:39] VITALS: BP 144/67; PULSE 61; RESP 16; TEMP 36.8; O2SAT 98
--- NOTE | 2025-03-15 15:07 | EX.ED.DYSGE1 ---
HPI History of Present Illness Chief Complaint: Hypotension [facility] Medical History Shortness of breath PRAMOD (obstructive sleep apnea) prison (current) use of 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 Paroxysmal atrial fibrillation Change in bowel habit Asthma Near syncope Atrial tachycardia (10/14/18) Varicose vein of leg Vestibular neuritis Osteopenia Osteoarthritis Chronic venous insufficiency Glaucoma Essential (primary) hypertension Home Medications Medication Instructions Recorded Last Taken Type cholecalciferol (vitamin D3) 25 1,000 unit PO DAILY vitamin 03/10/16 03/14/25 History mcg (1,000 unit) tablet latanoprost 0.005 % eye drops 1 drp EACH EYE [facility] eye health 03/10/16 03/14/25 History coenzyme Q10 50 mg chewable tablet 30 mg PO DAILY 06/07/19 03/14/25 History metoprolol tartrate 25 mg tablet 12.5 mg (1/2 x 25 mg) PO BID PRN 09/09/24 11/28/24 Rx afib #180 tabs timolol maleate 0.5 % eye drops 1 drp ophthalmic (eye) BID 09/26/24 03/15/25 History warfarin 5 mg tablet 7.5 mg PO SUTUTHSA 11/28/24 03/14/25 History warfarin 5 mg tablet 5 mg PO .COMPLEX #120 tabs 01/26/25 03/14/25 Rx ascorbic acid (vitamin C) 500 mg 1 g PO DAILY 03/15/25 Unknown History tablet (C-500) Allergy/AdvReac Type Severity Reaction Status Date / Time cat dander Allergy Mild congestion Verified 03/15/25 14:41 grass pollen Allergy Mild Cough, Verified 03/15/25 14:41 rhinitis house dust Allergy Mild Cough, Verified 03/15/25 14:41 rhinitis mold Allergy Mild Cough, Verified 03/15/25 14:41 rhinitis tree and shrub pollen Allergy Mild Cough, Verified 03/15/25 14:41 rhinitis Sulfa (Sulfonamide Allergy Itching Verified 03/15/25 14:41 Antibiotics) losartan AdvReac Severe dizziness, Verified 03/15/25 14:41 severe amlodipine AdvReac Intermediate dizziness Verified 03/15/25 14:41 lisinopril AdvReac Intermediate Nagging Verified 03/15/25 14:41 dry cough Benzodiazepines AdvReac Other Verified 03/15/25 14:41 diazepam (From Valium) AdvReac Other Verified 03/15/25 14:41 Family History Father Myocardial infarction from [place] age 61 Heart disease Diabetes Sister Breast cancer Other prison (current) use of 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 Surgical History history vein surgery history TMJ surgery History of cataract surgery S/P excision of Ramos's neuroma History of carpal tunnel release History of tonsillectomy Social History household members: spouse housing: house Smoking Status: Never smoker alcohol intake: current alcohol intake frequency: a few times a month substance use type: does not use what type of physical activity do you participate in: none do you feel safe at home: Yes EXAM Physical Exam Const Vital Signs: 03/15/25 14:39 03/15/25 15:54 03/15/25 15:54 Temperature 98.2 F 98.2 F Temperature Source Oral Oral Pulse Rate 61 56 L Respiratory Rate 16 18 Respiratory Effort Normal Respiratory Pattern Normal Blood Pressure 144/67 H 152/73 H Blood Pressure Mean 92 99 Pulse Ox 98 99 Oxygen Delivery Method Room Air Room Air 03/15/25 16:00 03/15/25 17:00 03/15/25 18:00 Temperature 98.2 F 98.2 F Temperature Source Oral Oral Pulse Rate 57 L 63 61 Respiratory Rate 18 13 15 Respiratory Effort Respiratory Pattern Blood Pressure 140/93 H 161/78 H 135/75 H Blood Pressure Mean 108 105 95 Pulse Ox 97 97 98 Oxygen Delivery Method Room Air Room Air Room Air MDM MDM MDM Narrative Medical decision making narrative: HISTORY OF PRESENT ILLNESS: Chief complaint: Hypotension 79-year-old female presents with concern for hypHistory of asthma, chronic anticoagulation secondary to A-fib, hypertension on metoprolol 12-1/2 mg twice daily as needed. Notes low blood pressures at home. States she feels diffusely weak all her blood pressure been low. The lowest pressure was 89/66 per her blood pressure machine. Denies recent illness. Denies vomiting or diarrhea. Denies decreased p.o. intake. Denies chest pain palpitations. Denies shortness of breath cough or fever. Denies lower extremity edema. Notes compliance with medications. No bleeding diathesis noted. No recent falls or new neck or back pain noted REVIEW OF SYSTEMS: Pertinent positives: Hypotension, diffuse weakness Pertinent negatives: As per HPI PHYSICAL EXAM: Nursing triage notes reviewed, Vital signs reviewed Constitutional: please see [facility] HENT: MMM Eyes: Pupils equal round and reactive to light, Extraocular muscles intact Neck: No stridor, no JVD, full neck ROM Lungs: Clear to auscultation, No wheezing or rales. No increased work of breathing, no conversational dyspnea, no accessory muscle use, no nasal flaring. No respiratory distress noted Heart: Regular rate and rhythm, No murmurs, No rubs and No gallops, 2+ distal pulses (radial, femoral, posterior tibial) in all extremities Abdomen: Soft, there is no tenderness, rigidity, rebound or guarding, no obvious peritoneal signs, no palpable pulsatile abdominal masses, no auscultated abdominal bruit : No CVAT Extremities: No edema Neuro: No new focal neurological deficits, cranial nerves II through XII intact, 5/5 strength in all present extremities. Intact sensation to light touch in all present extremities, 2+ reflexes bilateral patella tendons. Skin: No rash or lesions noted MEDICAL DECISION MAKING: Chief Complaint: please see [facility] External records reviewed: Reviewed per echocardiogram from October 2024 shows ejection fraction 70% stage I diastolic dysfunction Factors affecting care: no as per [facility] Social determinants of health: none History obtained from others: none Consults: none [facility] Narrative: Patient was initially hemodynamically stable, afebrile and nontoxic-appearing. No focal cardiopulmonary, neurologic or hematologic abnormalities noted on initial exam I considered the following differential diagnosis: Distributive shock, obstructive shock, hemorrhagic shock, neurogenic shock, cardiogenic shock IV monitor placed The patient's history and physical exam not consistent with neurogenic shock. There is no trauma or new neck or back pain to suggest neurogenic shock I obtained a broad lab and imaging work to further determine if the patient was suffering from a life-threatening etiology. Initially assessed the patient with 500 cc normal saline bolus ALL IMAGES (IF OBTAINED) HAVE BEEN PERSONALLY REVIEWED AND INTERPRETED BY MYSELF. EKG with normal sinus rhythm rate of 60, left axis deviation, normal intervals, parable 200, QTc 404, no STEMI or obvious ischemic changes noted. This makes cardiac shock less likely High-sensitivity troponin is negative, no evidence of myocardial ischemia x2 Lactate is wnl indicating no end-organ hypoperfusion and/or hypoxia. I have personally reviewed the patient's chest x-ray. Chest x-ray is unremarkable for pulmonary edema, pneumothorax, pneumonia or focal cardiopulmonary abnormality. CBC with no leukocytosis, mild anemia (essentially baseline) with no INR therapeutic, no coagulopathy CMP without evidence of acute kidney injury, significant electrolyte abnormality, anion gap to suggest end organ hypo-perfusion, no evidence of metabolic acidosis with a normal bicarbonate, no evidence of hepatobiliary obstructive pathology. Urinalysis shows no evidence of urinary inflammation suggestive of UTI The synthesis of the patient's history, physical exam, labs images suggest no acute life or limb threat in etiology specifically no sign of any shock process. Repeat blood pressure 135/75. Patient is appropriate discharge home. The patient and/or family, caregivers express understanding. The patient and/or family, caregivers agrees with the plan. Shared decision making: I will have a discussion with the patient and or visitors regarding risk/benefits of further testing or admission. They will be made aware of of the risk/benefits inherent in this decision they will be given the opportunity to voice understanding. Total critical care time today provided was at least 0 minutes. This excludes separately billable procedures. Critical care time (if documented) is secondary to the patient having high probability of clinically significant/life threatening deterioration in the patient's condition which required my urgent intervention. Impression: 1. Hypotension (resolved) 2. History of chronic anticoagulation Dispo: discharge This note was generated with [employer] dictation software. It may contain incorrect words, spelling, and punctuation that were not noted in review of the chart prior to signing. Lab Data Labs: Laboratory Results - last 24 hr 03/15/25 03/15/25 03/15/25 15:45 15:47 17:50 WBC 5.2 RBC 3.55 L Hgb 11.2 L Hct 35.1 L MCV 98.9 MCH 31.5 MCHC 31.9 L RDW Std Deviation 49.9 H RDW Coeff of [place]ce 13.5 Plt Count 164 MPV 13.1 H Immature Gran % (Auto) 0.400 Neut % (Auto) 56.5 Lymph % (Auto) 25.9 [place] % (Auto) 13.1 H Eos % (Auto) 3.1 Baso % (Auto) 1.0 Absolute Neuts (auto) 2.9 Absolute Lymphs (auto) 1.34 Nucleated RBC % 0 PT 26.7 H INR 2.4 Sodium 138 Potassium 4.3 Chloride 103 Carbon Dioxide 24.0 Anion Gap 10 BUN 29 H Creatinine 0.86 Est GFR (MDRD) Non-Af 69 BUN/Creatinine Ratio 33.3 H Glucose 90 Lactic Acid < 1.0 Calcium 9.1 Total Bilirubin 0.33 AST 15 ALT 12 Alkaline Phosphatase 76 Troponin T High Sens 9 Troponin T Hi Sens 2 Hr 10 Total Protein 6.6 Albumin 3.9 Globulin 2.7 Albumin/Globulin Ratio 1.5 Urine Color Straw Urine Clarity Clear Urine pH 6.0 Ur Specific [place] 1.010 Urine Protein Negative Urine Glucose (UA) Normal Urine Ketones Negative Urine Occult Blood 10 H Urine Nitrite Negative Urine Bilirubin Negative Urine Urobilinogen Normal Ur Leukocyte Esterase Negative Radiography Diagnostic Testing: Clinical Impression(s) from Imaging Studies Chest X-Ray 03/15/25 16:25 IMPRESSION: Cardiomegaly. No acute pulmonary disease. Reading Location: [id number] Discharge Plan Triage Chief Complaint: Hypotension ED Provider: Johnie Kelsey Dx/Rx/DC Orders Prescriptions: No Action latanoprost 1 DROP bottle 1 drp EACH EYE QHS cholecalciferol (vitamin D3) 1,000 UNIT tablet 1,000 unit PO DAILY coenzyme Q10 50 MG tablet,chewable 30 mg PO DAILY warfarin 5 mg tablet 7.5 mg PO [facility] Protocol: Dose Management Condition: Thursday Dose/Route: 7.5 mg Instruction: 1.5 x 5 mg tablets Condition: Thursday Dose/Route: 5 mg Instruction: 1 x 5 mg tablet Condition: Thursday Dose/Route: 7.5 mg Instruction: 1.5 x 5 mg tablets Condition: Thursday Dose/Route: 5 mg Instruction: 1 x 5 mg tablet Condition: Dose/Route: 7.5 mg Instruction: 1.5 x 5 mg tablets Condition: Thursday Dose/Route: 5 mg Instruction: 1 x 5 mg tablet Condition: Thursday Dose/Route: 7.5 mg Instruction: 1.5 x 5 mg tablets Protocol Text: Adjustment Start Date: 03/09/25 INR Value: 2.8 INR Date: 03/08/25 Recheck Date: 04/08/25 timolol maleate 0.5 % drops 1 drp ophthalmic (eye) BID ascorbic acid (vitamin C) [C-500] 500 mg tablet 1 g PO DAILY metoprolol tartrate 25 mg tablet 12.5 mg PO BID PRN (Reason: afib) Qty: 180 3RF warfarin 5 mg tablet 5 mg PO .COMPLEX Qty: 120 3RF Protocol: Dose Management Condition: Thursday Dose/Route: 7.5 mg Instruction: 1.5 x 5 mg tablets Condition: Thursday Dose/Route: 5 mg Instruction: 1 x 5 mg tablet Condition: Thursday Dose/Route: 7.5 mg Instruction: 1.5 x 5 mg tablets Condition: Thursday Dose/Route: 5 mg Instruction: 1 x 5 mg tablet Condition: Dose/Route: 7.5 mg Instruction: 1.5 x 5 mg tablets Condition: Thursday Dose/Route: 5 mg Instruction: 1 x 5 mg tablet Condition: Thursday Dose/Route: 7.5 mg Instruction: 1.5 x 5 mg tablets Protocol Text: Adjustment Start Date: 03/09/25 INR Value: 2.8 INR Date: 03/08/25 Recheck Date: 04/08/25 Rx Instructions: 5 mg orally M//, 7.5 mg (1.5 tablets) S/T// or as directed Primary Care Provider: Moon Malone Referrals: Moon Malone MD [Primary Care Provider] - Print Language: Malaysian
--- NOTE | 2025-03-15 15:29 | EKG12_ITS ---
Test Reason : GENERAL Blood Pressure : */* mmHG Vent. Rate : 60 BPM Atrial Rate : 60 BPM P-R Int : 200 ms QRS Dur : 78 ms QT Int : 404 ms P-R-T Axes : 63 -19 41 degrees QTcB Int : 404 ms Sinus rhythm with Premature atrial complexes Otherwise normal ECG Confirmed by BRANDO BAILEY, SONYA ([id number]), story editor RAMONITA BOOGIE ([id number]) on 03/17/2025 1:09:56 PM Referred By: Confirmed By: SONYA MICHAELS MD
[2025-03-15 15:54] VITALS: BP 152/73; PULSE 56; RESP 18; TEMP 36.8; O2SAT 99
[2025-03-15] MEDS: 0.9% Normal Saline (500mL Bag) 500 ML 1000 ML IV (15:57)
[2025-03-15 16:00] VITALS: BP 140/93; PULSE 57; RESP 18; TEMP 36.8; O2SAT 97
[2025-03-15 16:24] LABS: Mucous, Urine 0 SEEN /hpf (<or=2+)
--- NOTE | 2025-03-15 16:25 | RAD_ITS ---
PROCEDURE: CHEST 1 VIEW (PORTABLE) 03/15/2025 REASON FOR EXAM: HYPOTENSION TECHNIQUE: Frontal view of the chest. COMPARISON: 11/28/2024 FINDINGS: Lungs/Pleura: Clear. No pneumothorax or sizable pleural effusion. Heart/Mediastinum: Cardiomegaly. No significant vascular congestion. Calcification of the aortic arch. Cardiac loop recorder device projects over the left chest wall. Bones/Soft tissues: Mild degenerative changes of the spine. RAD/Chest 1 View (Portable) IMPRESSION: Cardiomegaly. No acute pulmonary disease. Reading Location: [id number]
[2025-03-15 16:45] LABS: Hematocrit 35.1 % (37-47); Hemoglobin 11.2 g/dL (12.0-15.0); Immature Granulocytes Count 0.020 X10^3/uL (0.0-0.0); Mean Corp Hgb Conc 31.9 g/dL (32-36); Mean Corpuscular Volume 98.9 fL (81-99); Mean Platelet Vol. 13.1 fl (6.2-12.0); NRBC Flagged by Analyzer 0 % (0-5); Platelet Count 164 K/mm3 (150-450); RBC Distribution Width CV 13.5 % (11.6-14.6); RBC Distribution Width SD 49.9 fl (35.1-43.9); Red Blood Count 3.55 M/mm3 (4.2-5.4); White Blood Count 5.2 K/mm3 (4.4-11.0)
[2025-03-15 16:56] LABS: Color, Urine Straw (Yellow); Glucose, Dipstick Normal (Normal); Ketone-Dipstick Negative (Negative); Leukocyte Esterase-Dipstick Negative /ul (Negative); Nitrite-Dipstick Negative (Negative); Occult Blood-Urine 10 /ul (Negative); Protein-Dipstick Negative (Negative); Specific Gravity, Urine 1.010 (1.002-1.030); Urine Bilirubin Dipstick Negative (Negative)
[2025-03-15 17:00] VITALS: BP 161/78; PULSE 63; RESP 13; TEMP 36.8; O2SAT 97
[2025-03-15 17:17] LABS: AST(SGOT) 15 U/L (<=31); Alanine Aminotransfer ALT/SGPT 12 U/L (<=34); Albumin, Serum 3.9 g/dL (3.4-4.8); Alkaline Phosphatase 76 U/L (35-104); Anion Gap 10 (5-15); BUN 29 mg/dL (4-19); BUN/Creat Ratio 33.3 RATIO (10-20); Calcium,Total 9.1 mg/dL (7.6-11.0); Carbon Dioxide 24.0 mmol/L (21.0-32.0); Chloride 103 mmol/L (98-108); Globulin 2.7 g/dL (2.2-4.2); Glucose 90 mg/dL (70-99); Potassium 4.3 mmol/L (3.3-5.1); Troponin T High Sensitivity 9 ng/L (<=14)
[2025-03-15 17:29] LABS: Prothrombin Time (Protime)PT. 26.7 SECONDS (11.7-14.9)
[2025-03-15 18:00] VITALS: BP 135/75; PULSE 61; RESP 15; O2SAT 98
[2025-03-15 18:16] LABS: Troponin T High Sens 2 HR 10 ng/L (<=14)
[2025-03-15 18:27] LABS: Red Blood Cells-Urine 0-5 SEEN /hpf (0-5); Squamous Epithelial Cells - UA 0-5 SEEN /hpf (5-10)
[2025-03-15 18:33] VITALS: BP 134/89; PULSE 65; RESP 19; TEMP 36.6; O2SAT 100
--- OUTSIDE RECORDS SUMMARY | 2025-03-15 20:26 | XMS RPT_ITS | CCD ---
Author Organization [facility] CliniSyfl Care Team Providers Care Pencils Washer Name Role Phone Freddy Costa MD Unavailable Keyanna Holguin Unavailable Keyanna Holguin Unavailable Dr. Chaitanya Estrella III Referring Provider Dr. Angel Simmons Attending Provider Dale PA, PA [facility] Primary Care Provider Dale PA, PA [facility] Referring Provider Vlad HONG, RADIAL DRILL OPERATOR FOR PLASTIC-C Brielle Attending Provider [phone] Dr. Angel Simmons Other Provider Dale PA-C, [facility] Primary Care Provider [phone] Dale PA, PA [facility] Primary Care Provider Dale PA, PA [facility] Referring Provider Shiraz PA, PA Desire Johnson Attending Provider Dale PA, PA [facility] Primary Care Provider Dale PA, PA [facility] Referring Provider Weldon PA, PA Desire Johnson Attending Provider Dale PA-C, M Mansura Primary Care Provider Ehsaner PA, PA Jagruti Attending Provider Dale PA, PA [facility] Primary Care Provider Dale PA, PA [facility] Referring Provider Dr. Linda Akins Emergency Provider Dr. Walker Perry Attending Provider Dr. Walker Perry Other Provider Dr. Scarltet Liz Admit Provider Dr. Dominguez Garsia Attending Provider Jenna, Dr. Celena Archibald Attending Provider Koranmol, Dr. Celena Archibald Other Provider Mynor Shirley MD Unavailable [phone] Dlae PA, PA [facility] Primary Care Provider [phone] Dale PA, PA M Sakina Referring Provider JEANNIE Menchaca Attending Provider Dr. Linda Akins Emergency Provider Dr. Walker Perry Attending Provider Dr. Walker Perry Other Provider Dr. Scarlett Liz Admit Provider Dr. Dominguez Garsia Attending Provider Koram, Dr. Celena Archibald Attending Provider Koram, Dr. Celena Archibald Other Provider Shiraz DENNIS, PA Desire Johnson Attending Provider Desire Weldon Unavailable Unavailable Dale PA, PA Elizabeth Jiménez Attending Provider Dale PA, PA [facility] Primary Care Provider Dale PA, PA M Sakina Referring Provider TERRI GOMEZ Referring Unavailable Elizabeth DALE Primary Care Unavailable DALE, Elizabeth LRSAKINA Primary Care Unavailable TERRI GOMEZ Referring Unavailable Dale PA, PA M Sakina Primary Care Provider [phone] Dale PA, PA M Sakina Primary Care Provider [phone] Mynor Shirley MD Unavailable Dale PA, PA [facility] Primary Care Provider Dale PA, PA M Mansura Referring Provider MD Pop Villanueva Attending Provider Dale PA, PA M Mansura Primary Care Provider Dale PA, PA M Mansura Referring Provider MD Pop Villanueva Attending Provider Shiraz PA, JEANNIE Johnson Attending Provider Dale PA, PA [facility] Primary Care Provider Dale PA, PA M Sakina Referring Provider Dale PA-C, M Sakina Primary Care Provider Moon Teixeira MD Primary Care Provider Dale PA-C, M Sakina Primary Care Provider Glenn PA-C, [place] L Unavailable Older 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 Moon Teixeira MD Primary Care Provider Desire Bean Attending Provider Desire Bean Referring Provider Dr. Pedro Gusman MD Attending Provider Dr. Pedro Gusman MD Emergency Provider Roof RADIAL DRILL OPERATOR FOR PLASTIC-C, Bart H Other Provider Kira BAILEY, Dr. Mustafa Referring Provider Dr. Yinka Lovelace MD Attending Provider Dr. Yinka Lovelace MD Referring Provider Dr. Moon Teixeira MD Attending Provider Sun BAILEY, Dr. Mix Attending Provider Albania BAILEY, Dr. Honeycutt Other Provider [phone] Roof RADIAL DRILL OPERATOR FOR PLASTIC-C, Bart Romano Attending Provider Roof RADIAL DRILL OPERATOR FOR PLASTIC-C, Bart Romano Referring Provider [phone] Kira BAILEY, Dr. Mustafa Primary Care Provider Dr. Isreal Ohara DO Emergency Provider Dr. Isreal Ohara DO Attending Provider [phone] Kira BAILEY, Dr. Mustafa Primary Care Provider Roof RADIAL DRILL OPERATOR FOR PLASTIC-C, Bart Romano Attending Provider [phone] Roof RADIAL DRILL OPERATOR FOR PLASTIC-C, Bart Romano Referring Provider [phone] GANTA, MOON Primary Care Unavailable OLDER, JOSÉ MIGUEL Referring Unavailable EDGAR DAVE Attending Unavailable GANTA, MOON Primary Care Unavailable OLDER, JOSÉ MIGUEL Referring Unavailable GANTA, MOON Primary Care Unavailable TESTRAKEDAQUAN Referring Unavailable GANTA, MOON Primary Care Unavailable GANTA, MOON Referring Unavailable GANTA, MOON Primary Care Unavailable SELF Referring Unavailable POMPEANI, GUCCI Attending Unavailable GANTA, MOON Primary Care Unavailable GANTA, MOON Attending Unavailable GANTA, MOON Primary Care Unavailable ALEC ARTHUR Attending Unavailable GANTA, MOON Primary Care Unavailable BOGNER, YAA Referring Unavailable GANTA, MOON Primary Care Unavailable TESTRADAQUAN GAYTAN Referring Unavailable TESTDAQUAN SAINZ Attending Unavailable GANTA, MOON Primary Care Unavailable GANTA, MOON Referring Unavailable GANTA, MOON Primary Care Unavailable BOGNER, YAA Referring Unavailable GANTA, MOON Primary Care Unavailable GANTA, MOON Attending Unavailable GANTA, MOON Primary Care Unavailable GANTA, MOON Referring Unavailable GANTA, MOON Primary Care Unavailable GANTA, MOON Attending Unavailable GANTA, MOON Primary Care Unavailable SELF Referring Unavailable OLDER, JOSÉ MIGUEL Attending Unavailable GANTA, MOON Primary Care Unavailable OLDER, JOSÉ MIGUEL Referring Unavailable GANTA, MOON Attending Unavailable GANTA, MOON Primary Care Unavailable BOGNER, YAA Attending Unavailable GANTA, MOON Primary Care Unavailable GANTA, MOON Referring Unavailable GANTA, MOON Primary Care Unavailable POMPEANI, GUCCI Referring Unavailable GANTA, MOON Primary Care Unavailable MYNOR SHIRLEY Referring Unavailable MARIA DE JESUS DESOUZA Attending Unavailable ANNELIESE DALE Primary Care Unavailable NIRALI ALMANZA Referring Unavailable ANNELIESE DALE SAKINA Primary Care Unavailable GANTA, MOON Attending Unavailable GANTA, MOON Primary Care Unavailable JOSÉ MIGUEL SALDAÑA Attending Unavailable Roof RADIAL DRILL OPERATOR FOR PLASTIC, Bart H Attending Unavailable Roof RADIAL DRILL OPERATOR FOR PLASTIC, Bart H Referring Unavailable Ganta, Moon Primary Care Unavailable Yinka Lovelace Consulting Unavailable Carol Mccarthy Referring Unavailable Carol Mccarthy Attending Unavailable Ganta, Moon Primary Care Unavailable Pedro Gusman Attending Unavailable Ganta, Moon Primary Care Unavailable Roof RADIAL DRILL OPERATOR FOR PLASTIC, Bart H Attending Unavailable Roof RADIAL DRILL OPERATOR FOR PLASTIC, Bart H Referring Unavailable Ganta, Moon Primary Care Unavailable Roof RADIAL DRILL OPERATOR FOR PLASTIC, Bart H Attending Unavailable Roof RADIAL DRILL OPERATOR FOR PLASTIC, Bart H Referring Unavailable Yinka Lovelace Consulting Unavailable Ganta, Moon Primary Care Unavailable Ganta, Moon Attending Unavailable Ganta, Moon Primary Care Unavailable Ganta, Moon Referring Unavailable Isreal Ohara Attending Unavailable Ganta, Moon Primary Care Unavailable Ganta, Moon Primary Care Unavailable Darron Thomas Attending Unavailable Roof RADIAL DRILL OPERATOR FOR PLASTIC, Bart H Attending Unavailable Roof RADIAL DRILL OPERATOR FOR PLASTIC, Bart H Referring Unavailable Ganta, Moon Primary Care Unavailable Ganta, Moon Primary Care Unavailable Desire Bean Attending Unavail able Desire Bean Referring Unavail able Roof RADIAL DRILL OPERATOR FOR PLASTIC, Bart H Attending Unavailable Roof RADIAL DRILL OPERATOR FOR PLASTIC, Bart H Referring Unavailable Ganta, Moon Primary Care Unavailable Yinka Lovelace Consulting Unavailable Ganta, Moon Primary Care Unavailable Ganta, Moon Referring Unavailable Ganta, Moon Attending Unavailable Ganta, Moon Primary Care Unavailable Yinka Lovelace Referring Unavailable Yinka Lovelace Attending Unavailable Ganta, Moon Primary Care Unavailable Yinka Lovelace Referring Unavailable Yinka Lovelace Attending Unavailable Ganta, Moon Primary Care Unavailable Ganta, Moon Attending Unavailable Roof RADIAL DRILL OPERATOR FOR PLASTIC, Bart H Attending Unavailable Roof RADIAL DRILL OPERATOR FOR PLASTIC, Bart H Referring Unavailable Elizabeth Abraham Primary Care Unavailable Roof RADIAL DRILL OPERATOR FOR PLASTIC, Bart H Attending Unavailable Roof RADIAL DRILL OPERATOR FOR PLASTIC, Bart H Referring Unavailable Ganta, Moon Primary Care Unavailable Ganta, Moon Primary Care Unavailable Desire Bean Attending Unavail able Desire Bean Referring Unavail able Ganta, Moon Primary Care Unavailable Dominguez Garsia Attending Unavailable Ganta, Moon Primary Care Unavailable Dominguez Garsia Attending Unavailable Desire Bean Referring Unavail able Ganta, Moon Primary Care Unavailable Ganta, Moon Referring Unavailable Yinka Lovelace Attending Unavailable Bobby RADIAL DRILL OPERATOR FOR PLASTIC, Bart Romano Consulting Unavailable Ganta, Moon Primary Care Unavailable Desire Bean Attending Unavail able Desire Bean Referring Unavail able Ganta, Moon Primary Care Unavailable Ganta, Moon Referring Unavailable Ganta, Moon Attending Unavailable Ganta, Moon Primary Care Unavailable Ousmane Matias Attending Unavailable Dr. Moon Teixeira MD Primary Care Provider Desire Bean Attending Provider Desire Bean Referring Provider [phone] Sun BAILEY, Dr. Mix Attending Provider [phone] Dr. Johnie Kelsey DO Emergency Provider Allergies Allergy Classification Reported Allergen(s) Allergy Type Date of Onset Reaction(s) Facility Benzodiazepines (1 source) diazePAM Drug Allergy 09-23-19 14 Intolerance [facility] Cats (1 source) Cat Animal Allergy (Dander) 11-29-19 15 Itching, Shortness of Breath [facility] Macrolides (antibiotic) (1 source) Azithromycin Drug Allergy 06-08-20 19 Other: See Comments [facility] Mold Extract (1 source) Mold Extract Drug Allergy 11-29-19 15 Itching [facility] Sulfonamides (antibiotic) (1 source) Sulfonamides (Antibiotic) Drug Allergy 06-13-20 05 Itching [facility] Donna grass pollen extract (1 source) Donna grass pollen extract Drug Allergy 11-29-19 15 Itching [facility] (6 sources) Sulfonamides (Antibiotic) drug allergy 05-14-20 17 [facility] Work Phone: (6 sources) PERFUME drug allergy 05-14-20 17 ill feeling [facility] Work Phone: (6 sources) VOLUMEN drug allergy 05-14-20 17 [facility] Work Phone: (20 sources) amLODIPine Drug Allergy 07-02-20 21 [facility] (20 sources) Benzodiazepines; Translations: [BENZODIAZEPINES] Propensity to adverse reactions 09-08-19 15 Mental Status Change [facility] (20 sources) diazePAM; Translations: [DIAZEPAM] Drug Allergy 09-23-19 14 Intolerance [facility] Comment on above: HALLUCINATIONS (20 sources) Grass pollen; Translations: [grass pollen] Allergy to substance 03-21-20 21 Cough, rhinitis [facility] (20 sources) house dust allergenic extract Drug Allergy 03-21-20 21 Cough, rhinitis [facility] (20 sources) Lisinopril Drug Allergy 03-21-20 21 Nagging dry cough [facility] (20 sources) Losartan Drug Allergy 08-12-20 dizziness, severe [facility] (20 sources) Mold Extract; Translations: [MOLD] Drug Allergy 11-29-19 15 Itching [facility] (20 sources) Sulfonamides (Antibiotic); Translations: [SULFA (SULFONAMIDE ANTIBIOTICS)] Allergy to substance 06-13-20 05 Itching [facility] (20 sources) Tree and shrub pollen; Translations: [tree and shrub pollen] Allergy to substance 03-21-20 21 Cough, rhinitis [facility] (20 sources) cat dander; Translations: [cat dander] Allergy to substance 03-21-20 21 congestion [facility] (20 sources) Azithromycin; Translations: [AZITHROMYCIN] Drug Allergy 06-08-20 19 Other: See Comments [facility] (20 sources) Cat; Translations: [CATS] Allergy to substance 11-29-19 15 Itching, Shortness of Breath [facility] (20 sources) House dust mite; Translations: [DUST MITES] Allergy to substance 11-29-19 15 Other: See Comments [facility] (20 sources) Seasonal allergy; Translations: [SEASONAL ALLERGIES] Allergy to substance 11-09-19 11 Cough [facility] (20 sources) Donna grass pollen extract; Translations: [GRASS POLLEN-DONNA, STANDARD] Drug Allergy 11-29-19 15 Itching [facility] (20 sources) Tree; Translations: [TREES] Allergy to substance 11-29-19 15 Itching [facility] (20 sources) Fragrances; Translations: [FRAGRANCES] Allergy to substance 11-29-19 15 Cough, Shortness of Breath [facility] (1 source) amLODIPine Drug Allergy 10-13-19 25 [facility] (1 source) diazePAM Drug Allergy 10-13-19 25 [facility] (1 source) house dust allergenic extract Drug Allergy 10-13-19 [facility] (1 source) Lisinopril Drug Allergy 10-13-19 [facility] (1 source) Losartan Drug Allergy 10-13-19 [facility] (1 source) Mold Extract Drug Allergy 10-13-19 [facility] Medications Current Medications Medication Drug Class(es) Dates Sig (Normalized) Sig (Original) ascorbic acid 500 mg oral tablet (20 sources) Start: 03-15-2025 take 1 tablet by mouth once daily Ascorbic Acid (Vitamin C) (C-500) 500 mg tablet Active 1 g PO DAILY March 15, 2025 12:00am Start: 07-27-2020 End: 12-02-2021 take 1 capsule by mouth once daily as needed Ascorbic Acid (Vitamin C) 500 mg capsule, extended release Discontinued 500 mg PO DAILY as needed March 06, 2021 9:59am December 02, 2021 2:10pm Start: 05-14-2017 take 1 tablet by fletcher th once daily VITAMIN C TABS One tablet by mouth daily ASCORBIC ACID TABS [id number] Freddy Costa MD Start: 05-14-2017 take 1 tablet by fletcher th once daily VITAMIN C TABS One tablet by mouth daily ASCORBIC ACID TABS [id number] Freddy Costa MD End: 01-07-2022 ascorbic acid (VITAMIN C ORA L) Take by mouth. 01/07/2022 Discontinued (Discontinued by Patient) End: 01-07-2022 ascorbic acid (VITAMIN C ORA L) Take by mouth. 0 01/07/2022 Discontinued (Discontinued by Patient) Comment on above: Take by mouth. baclofen 10 mg oral tablet (20 sources) gamma-Aminobutyri c Acid-ergic Agonist Start: 4 End: 5 take 1 tablet by mouth every eight hours as needed baclofen 10 mg tablet Take 1 tablet by mouth three times a day as needed (muscle spasms). 30 tablet 1 11/11/2024 Active cholecalciferol 0.05 mg oral capsule (20 sources) Vitamin D Start: 1 take 2 capsules by mouth once daily Cholecalciferol, Vitamin D3, 50 mcg (2,000 unit) cap Take 2 capsules by mouth once daily. 60 capsule 11 09/25/2020 Active Start: 03-10-2016 take 1 tablet by fletcher once daily Cholecalciferol (Vitamin D3) 1,000 UNIT tablet Active 1000 U PO DAILY March 10, 2016 12:00am vitamin Start: 03-10-2016 take 1 tablet by fletcher twice daily Cholecalciferol (Vitamin D3) 1,000 UNIT tablet Active 1000 U PO TWICE A DAY March 10, 2016 12:00am Comment on above: Take 2 capsules [facility] daily. ubidecarenone 50 mg chewable tablet (20 sources) Start: 06-07-2019 Coenzyme Q10 50 MG tablet,chewable Active 30 mg PO DAILY June 07, 2019 12:00am Start: 05-14-2017 take 1 tablet by fletcher once daily COQ10 100 MG CAPS One tablet by mouth daily COENZYME Q10 [id number] Freddy Costa MD Start: 05-14-2017 take 1 tablet by fletcher once daily COQ10 100 MG CAPS One tablet by mouth daily COENZYME Q10 [id number] Freddy Costa MD Start: 05-14-2017 take 1 tablet by fletcher once daily COQ10 100 MG CAPS One tablet by mouth daily COENZYME Q10 [id number] Freddy Costa MD doxycycline hyclate 100 mg oral capsule (2 sources) Tetracycline-class Drug Start: 01-21-2023 End: 01-31-2023 take 1 capsule by mouth twice daily doxycycline hyclate (VIBRAMYCIN) 100 mg capsule Take 1 capsule by mouth twice daily for 10 days. 20 capsule 0 01/21/2023 01/31/2023 Active Comment on above: Take 1 capsule by [facility] daily for 10 days. latanoprost 0.05 mg/ml ophthalmic solution (20 sources) Prostaglandin Analog Start: 08-13-2015 Latanoprost 1 DROP bottle Active 1 NMA EACH EYE AT BEDTIME March 10, 2016 12:00am [facility] Start: 08-13-2015 take 1 drop(s) into the eye(s) once daily at bedtime latanoprost (XALATAN) 0.005 % ophthalmic solution Use 1 Drop in both eyes daily at bedtime. 0 08/13/2015 Active Comment on above: Use 1 Drop in both e yes daily at bedtime. Timolol Maleate (20 sources) beta-Adrenergic Yvonne Start: 09-26-2024 Timolol Maleate 0.5 % drops Active 1 NMA OPHTHALMIC TWICE A DAY September 26, 2024 1:00am Start: 12-02-2021 End: 09-26-2024 take 0.25 drop(s) into the eye(s) twice daily Timolol 0.25 % drops Discontinued 1 NMA OPHTHALMIC TWICE A DAY December 02, 2021 12:00am September 26, 2024 12:50pm Start: 07-09-2021 timolol maleat e (TIMOPTIC) 0.5 % ophthalmic solution Use 1 Drop in both eyes twice daily. 07/09/2021 Active Start: 07-09-2021 timolol maleat e (TIMOPTIC) 0.5 % ophthalmic solution Use 1 Drop in both eyes twice daily. 0 07/09/2021 Active Comment on above: Use 1 Drop in both e yes twice daily. ubiquinol (20 sources) COQ10, UBIQUINOL , ORAL Take 30 mg by mouth. Active COQ10, UBIQUINOL , ORAL Take 30 mg by mouth. 0 Active Comment on above: Take 30 mg by mouth. Completed/Discontinued Medications Medication Drug Class(es) Dates Sig (Normalized) Sig (Original) HYDROCODONE-ACETAMI NOPHEN TABS (14 sources) Opioid Agonist Start: 08-10-2014 VICODIN TABS as needed for pain HYDROCODONE-ACETAMIN OPHEN TABS [id number] Alexa Womack Start: 08-10-2014 End: 05-14-2017 VICODIN TABS as needed for p ain HYDROCODONE-ACETAMINOPHEN TABS [id number] Freddy Costa MD Start: 08-10-2014 End: 05-14-2017 VICODIN TABS as needed for p ain HYDROCODONE-ACETAMINOPHEN TABS [id number] Freddy Costa MD Start: 08-10-2014 VICODIN TABS a s needed for pain HYDROCODONE-ACETAMINOPHEN TABS [id number] Alexa Clarke Frase acetaminophen 325 mg / oxyCODONE hydrochloride 5 mg oral tablet (2 sources) Opioid Agonist Start: 07-15-2023 End: 07-22-2023 take 1 tablet by mouth every eight hours as needed for pain oxyCODONE-acetaminophen (PERCOCET) 5-325 mg tablet Indications: Right wrist pain Take 1 tablet by mouth every 8 hours as needed for pain for up to 7 days. 21 tablet 07/15/2023 07/22/2023 Comment on above: Take 1 tablet by fletcher th every 8 hours as needed for pain for up to 7 days. [id number] 200 actuat albuterol 0.09 mg/actuat metered dose inhaler (4 sources) beta2-Adrenerg ic Agonist Start: 09-08-2022 take 2 puff(s) by inhalation every four hours as needed for wheezing albuterol HFA (PROVENTIL HFA, VENTOLIN HFA) 90 mcg/actuation inhaler Inhale 2 Puffs as instructed every 4 hours as needed for wheezing/shortness of breath. 1 Each 0 09/08/2022 Active Comment on above: Inhale 2 Puffs as in structed every 4 hours as needed for wheezing/shortness of breath. ALPHA LIPOIC ACID ORAL (20 sources) End: 12-30-2024 ALPHA LIPOIC ACID ORAL Take by mouth. 12/30/2024 Discontinued ALPHA LIPOIC ACI D ORAL Take by mouth. Active ALPHA LIPOIC ACI D ORAL Take by mouth. 0 Active Comment on above: Take by mouth. amLODIPine 2.5 mg oral tablet (20 sources) Dihydropyridine Calcium Channel Yvonne Start: 06-21-20 End: 07-02-20 take 1 tablet by mouth once daily Amlodipine 2.5 mg tablet Discontinued 2.5 mg PO DAILY 23 07June 21, 2021 12:00am July 02, 2021 5:03pm Start: 03-11-2021 End: 05-30-2021 take 1 tablet by mouth once daily Amlodipine 2.5 mg tablet Discontinued 2.5 mg PO DAILY 23 07March 11, 2021 12:00am May 30, 2021 12:59pm apixaban 5 mg oral tablet (20 sources) Factor Xa Inhibitor Start: 03-21-2021 End: 03-26-2021 take 1 tablet by mouth twice daily Apixaban (Eliquis) 5 mg tablet Discontinued 5 mg PO TWICE A DAY 60 March 21, 2021 12:00am March 26, 2021 9:35am ARGININE HCL, L-ARGININE, ORAL (2 sources) End: 01-07-2022 ARGININE HCL, L-ARGININE, ORAL Take by mouth. 01/07/2022 Discontinued (Discontinued by Patient) End: 01-07-2022 ARGININE HCL, L-ARGININE, OR AL Take by mouth. 0 01/07/2022 Discontinued (Discontinued by Patient) Comment on above: Take by mouth. astragalus (8 sources) Start: 08-10-2014 ASTRAGALUS EXT RACT POWD as directed ASTRAGALUS [id number] Alexa E Frase Start: 08-10-2014 ASTRAGALUS EXT RACT POWD as directed ASTRAGALUS [id number] Alexa E Frase Start: 08-10-2014 ASTRAGALUS EXT RACT POWD as directed ASTRAGALUS [id number] Alexa E Frase Start: 08-10-2014 ASTRAGALUS EXT RACT POWD as directed ASTRAGALUS [id number] Alexa E Frase azithromycin 250 mg oral tablet (20 sources) Macrolide Antimicrobial Start: 06-07-2019 End: 08-02-2019 take 2 tablets by mouth once daily, then take 1 tablet by mouth once daily Azithromycin 250 MG tablet Discontinued 250 mg PO DIRECTED June 07, 2019 12:00am August 02, 2019 5:00pm TAKE 2 TABLETS 1ST DAY THEN 1 TABLET DAILY FOR NEXT 4 DAYS. BOSWELLIA CECILE EXTRACT (6 sources) Start: 05-14-2017 take 1 tablet by mouth once daily BOSWELLIA CECILE EXTRACT POWD One tablet by mouth daily BOSWELLIA CECILE EXTRACT [id number] Freddy Costa MD Start: 05-14-2017 take 1 tablet by fletcher th once daily BOSWELLIA CECILE EXTRACT POWD One tablet by mouth daily BOSWELLIA CECILE EXTRACT [id number] Freddy Costa MD Start: 05-14-2017 take 1 tablet by fletcher th once daily BOSWELLIA CECILE EXTRACT POWD One tablet by mouth daily BOSWELLIA CECILE EXTRACT [id number] Freddy Costa MD Start: 05-14-2017 take 1 tablet by fletcher once daily BOSWELLIA CECILE EXTRACT POWD One tablet by mouth daily BOSWELLIA CECILE EXTRACT [id number] Freddy Costa MD Boswellia cecile extract (BOSWELLIA CECILE XT, BULK,) 70 % powd (20 sources) End: 12-30-2024 Boswellia cecile extract (BOSWELLIA CECILE XT, BULK,) 70 % powd 1 Each two times a day. 12/30/2024 Discontinued Boswellia serrat a extract (BOSWELLIA CECILE XT, BULK,) 70 % powd 1 Each two times a day. Active Boswellia serrat a extract (BOSWELLIA CECILE XT, BULK,) 70 % powd 1 Each two times a day. 0 Active Comment on above: 1 Each two times a d ay. SKEIN YARN DRIER'S BROOM (6 sources) Start: 05-14-2017 take 1 tablet by mouth once daily SKEIN YARN DRIER'S BROOM One tablet by mouth daily [place]OR[place]'S BROOM Freddy Costa MD Start: 05-14-2017 take 1 tablet by fletcher once daily SKEIN YARN DRIER'S BROOM One tablet by mouth daily SKEIN YARN DRIER'S BROOM Freddy Costa MD chromic chloride (2 sources) End: 01-07-2022 take 1 capsule by mouth once daily chromic chloride (CHROMIUM CHLORIDE ORAL) Take 1 capsule by mouth once daily. 01/07/2022 Discontinued (Discontinued by Patient) End: 01-07-2022 take 1 capsule by mouth once daily chromic chloride (CHROMIUM CHLORIDE ORAL) Take 1 capsule by mouth once daily. 0 01/07/2022 Discontinued (Discontinued by Patient) Comment on above: Take 1 capsule by mo [facility] once daily. ciclopirox 80 mg/ml topical solution (16 sources) Start: 03-04-2023 End: 03-03-2024 Ciclopirox (LOPROX) 8 % solution Indications: onychomycosis due to dermatophyte Apply to affected area daily at bedtime. 6.6 mL 5 03/04/2023 03/03/2024 Comment on above: Apply to affected ar ea daily at bedtime. COMPOUNDED PRESCRIPTION (2 sources) End: 01-07-2022 COMPOUNDED PRESCRIPTION once daily. Shaan 01/07/2022 Discontinued (Discontinued by Patient) End: 01-07-2022 COMPOUNDED PRESCRIPTION once daily. Shaan 0 01/07/2022 Discontinued (Discontinued by Patient) Comment on above: once daily. [place] e CYANOCOBALAMIN, VITAMIN B-12, (VITAMIN B-12 ORAL) (2 sources) End: 01-07-2022 CYANOCOBALAMIN, VITAMIN B-12, (VITAMIN B-12 ORAL) Take by mouth once daily. occassionally 01/07/2022 Discontinued (Discontinued by Patient) End: 01-07-2022 CYANOCOBALAMIN, VITAMIN B-12 , (VITAMIN B-12 ORAL) Take by mouth once daily. occassionally 0 01/07/2022 Discontinued (Discontinued by Patient) Comment on above: Take by mouth once d aily. occassionally cyclobenzaprine hydrochloride 5 mg oral tablet (6 sources) Muscle Relaxant Start: 020 End: 022 take 1 tablet by mouth every eight hours as needed cyclobenzaprine (FLEXERIL) 5 mg tablet Take 1 tablet by mouth three times daily as needed for Muscle Spasm. 30 tablet 1 12/14/2019 07/11/2022 Discontinued Comment on above: Take 1 tablet by fletcher three times daily as needed for Muscle Spasm. dextromethorphan hydrobromide 3 mg/ml / promethazine hydrochloride 1.25 mg/ml oral solution (18 sources) Phenothiazine, Uncompetitive B-vmaakp-O-aspartate Receptor Antagonist, Sigma-1 Agonist Start: 023 End: 023 take 5 mL by mouth every six hours as needed Promethazine-DM (PHENERGAN-DM) 6.25-15 mg/5 mL syrup Take 5 mL by mouth four times daily as needed (primarily for sleep). 120 mL 09/08/2022 03/10/2023 Discontinued (Discontinued by Patient) Comment on above: Take 5 mL by mouth f our times daily as needed (primarily for sleep). docosahexaenoic acid/epa (FISH OIL ORAL) (2 sources) End: docosahexaenoic acid/epa (FISH OIL ORAL) Take by mouth. 01/07/2022 Discontinued (Discontinued by Patient) End: 01-07-2022 docosahexaenoic acid/epa (FI SH OIL ORAL) Take by mouth. 0 01/07/2022 Discontinued (Discontinued by Patient) Comment on above: Take by mouth. doxazosin 2 mg oral tablet (20 sources) alpha-Adrenergic Yvonne Start: 08-12-2021 End: 08-19-2021 take 1 tablet by mouth at bedtime Doxazosin (Cardura) 1 mg tablet Discontinued 1 mg PO AT BEDTIME 23 07August 12, 2021 1:00am August 19, 2021 6:08pm Start: 08-12-2021 End: 08-12-2021 take 1 tablet by mouth at bedtime Doxazosin (Cardura) 2 mg tablet Discontinued 2 mg PO AT BEDTIME 23 07August 12, 2021 1:00am August 12, 2021 5:45pm escitalopram 5 mg oral tablet (20 sources) Serotonin Reuptake Inhibitor Start: 05-17-2024 End: 06-22-2024 take 2 tablets by mouth once daily in the evening Escitalopram Oxalate 5 mg tablet Discontinued 10 mg PO EVERY EVENING May 17, 2024 12:00am June 22, 2024 4:11pm Start: 04-05-2024 End: 10-26-2024 escitalopram oxalate (LEXAPR O) 5 mg tablet Take 1 tablet by mouth once daily. Take one pill at night for 7 days and then increase to 2 pills at night 60 tablet 2 04/05/2024 10/26/2024 Discontinued furosemide 20 mg oral tablet (20 sources) Loop Diuretic Start: 09-27-2024 End: 11-16-2024 take 1 tablet by mouth once daily in the morning Furosemide (Lasix) 20 mg tablet Discontinued 20 mg PO EVERY MORNING 30 3 October 13, 2024 1:00am November 16, 2024 12:31pm [facility] (20 sources) Start: 10-12-2022 End: 11-11-2023 [facility] Discontinued 1 {tbl} SL/PO DAILY October 12, 2022 1:00am November 11, 2023 10:05am covid Start: 10-12-2022 End: 11-11-2023 [facility] Discontinued 1 {tbl} SL/PO DAILY October 12, 2022 1:00am November 11, 2023 10:05am Start: 10-12-2022 End: 11-11-2023 take 1 tablet by mouth once daily [facility] Discontinued 1 TABLET SL/PO DAILY October 12, 2022 1:00am November 11, 2023 10:05am Start: 10-12-2022 take 1 tablet by fletcher th once daily [facility] Active 1 TABLET SL/PO DAILY October 12, 2022 1:00am Start: 10-12-2022 take 1 tablet by fletcher th once daily [facility] Active 1 TABLET SL/PO DAILY October 12, 2022 12:00am ibuprofen 200 mg oral tablet (20 sources) Nonsteroidal Anti-inflammatory Drug Start: 03-10-2016 End: 07-27-2020 Ibuprofen 200 MG tablet Discontinued 400 mg PO NEEDED as needed for Pain March 10, 2016 12:00am July 27, 2020 2:08pm Start: 03-10-2016 End: 07-27-2020 Ibuprofen Discontinued 400 M G PO NEEDED March 10, 2016 12:00am July 27, 2020 2:08pm lisinopril 2.5 mg oral tablet (20 sources) Angiotensin Converting Enzyme Inhibitor Start: 08-09-2021 End: 08-12-2021 take 1 tablet by mouth once daily Lisinopril 2.5 mg tablet Discontinued 2.5 mg PO DAILY 23 07August 09, 2021 1:00am August 12, 2021 5:41pm Start: 10-19-2020 End: 03-06-2021 take 1 tablet by mouth once daily Lisinopril 5 mg tablet Discontinued 5 mg PO DAILY October 19, 2020 1:00am March 06, 2021 9:56am losartan potassium 25 mg oral tablet (20 sources) Angiotensin 2 Receptor Yvonne Start: 07-16-2021 End: 08-09-2021 take 1 tablet by mouth once daily Losartan 25 mg tablet Discontinued 25 mg PO DAILY 23 07July 16, 2021 1:00am August 09, 2021 5:23pm magnesium (20 sources) Start: 08-22-2021 End: 01-07-2022 take 1 tablet by mouth once daily Magnesium 250 mg tab Take 1 tablet by mouth once daily. 08/22/2021 01/07/2022 Discontinued (Discontinued by Patient) Start: 08-22-2021 End: 01-07-2022 take 1 tablet by mouth once daily Magnesium 250 mg tab Take 1 tablet by mouth once daily. 0 08/22/2021 01/07/2022 Discontinued (Discontinued by Patient) Start: 03-06-2021 End: 12-02-2021 take 1 tablet by mouth twice daily Magnesium 250 mg tablet Discontinued 250 mg PO TWICE A DAY March 06, 2021 10:00am December 02, 2021 2:11pm supplement Start: 03-06-2021 End: 12-02-2021 take 1 tablet by mouth twice daily Magnesium 250 mg tablet Discontinued 250 mg PO TWICE A DAY March 06, 2021 10:00am December 02, 2021 2:11pm Start: 03-06-2021 End: 12-02-2021 take 250 mg by mouth twice daily Magnesium Discontinued 250 MG PO TWICE A DAY March 06, 2021 9:00am December 02, 2021 1:11pm Start: 03-06-2021 End: 12-02-2021 take 250 mg by mouth twice daily Magnesium Discontinued 250 MG PO TWICE A DAY March 06, 2021 10:00am December 02, 2021 2:11pm Start: 03-06-2021 take 250 mg by mouth twice daily Magnesium Active 250 MG PO TWICE A DAY March 06, 2021 10:00am Start: 05-14-2017 take 1 tablet by fletcher th twice daily [facility] TRIPLE MAGNESIUM COMPLEX 400 MG CAPS One tablet by mouth twice daily MAGNESIUM [id number] Freddy Costa MD Start: 05-14-2017 take 1 tablet by fletcher th twice daily [facility] TRIPLE MAGNESIUM COMPLEX 400 MG CAPS One tablet by mouth twice daily MAGNESIUM [id number] Freddy Costa MD Start: 03-10-2016 End: 03-06-2021 take 500 mg by mouth twice daily Magnesium Discontinued 500 MG PO TWICE A DAY March 10, 2016 2:52pm March 06, 2021 10:03am Start: 03-10-2016 End: 03-06-2021 take 2 tablets by mouth twice daily Magnesium 250 MG tablet Discontinued 500 mg PO TWICE A DAY March 10, 2016 12:00am March 06, 2021 10:03am supplement Start: 03-10-2016 End: 03-06-2021 take 2 tablets by mouth twice daily Magnesium 250 MG tablet Discontinued 500 mg PO TWICE A DAY March 10, 2016 12:00am March 06, 2021 10:03am Start: 03-10-2016 End: 03-06-2021 take 500 mg by mouth twice daily Magnesium Discontinued 500 MG PO TWICE A DAY March 09, 2016 11:00pm March 06, 2021 9:03am Start: 03-10-2016 End: 03-06-2021 take 500 mg by mouth twice daily Magnesium Discontinued 500 MG PO TWICE A DAY March 10, 2016 12:00am March 06, 2021 10:03am Comment on above: Take 1 tablet by fletcher th once daily. melatonin 1 mg sublingual tablet (20 sources) Start: 2023 End: 2024 take 1 tablet under the tongue once daily Melatonin 1 mg tablet, sublingual Discontinued 1 mg SL DAILY May 17, 2024 12:00am June 22, 2024 4:10pm methylPREDNISolone (20 sources) Corticosteroid Start: 2022 End: 2022 methylPREDNISolone (MEDROL, ERIC,) 4 mg Dose-Pack Indications: Right wrist pain Follow dosing instructions, take with food. 21 tablet 07/15/2023 07/21/2023 Start: 07-15-2023 End: 07-21-2023 methylPREDNISolone (MEDROL, ERIC,) 4 mg Dose-Pack Indications: Right wrist pain Follow dosing instructions, take with food. 21 tablet 0 07/15/2023 07/21/2023 Active Start: 01-23-2020 End: 07-27-2020 take 1 tablet by mouth once Methylprednisolone (Medrol (Eric)) 4 mg tablets,dose pack Discontinued 0 PO per package directions 21 0 January 23, 2020 12:00am July 27, 2020 2:07pm PO PER PKG DIR Comment on above: Follow dosing instru ctions, take with food. methylsulfonylmethane (2 sources) End: methylsulfonylmethane (MSM ORAL) Take by mouth. 01/07/2022 Discontinued (Discontinued by Patient) End: 01-07-2022 methylsulfonylmethane (MSM O RAL) Take by mouth. 0 01/07/2022 Discontinued (Discontinued by Patient) Comment on above: Take by mouth. metoprolol tartrate 25 mg oral tablet (20 sources) beta-Adrenergic Yvonne Start: 09-09-2022 metoprolol tartrate, short acting, (LOPRESSOR) 25 mg tablet Take 12.5 mg by mouth as needed. Takes as needed for rapid HR 09/09/2022 Active Start: 09-09-2022 take 1 tablet by fletcher th twice daily as needed metoprolol tartrate, short acting, (LOPRESSOR) 25 mg tablet Take 25 mg by mouth twice daily. Takes as needed for rapid HR 09/09/2022 Active Start: 09-09-2022 End: 09-09-2024 Metoprolol Tartrate 25 mg ta blet Discontinued 12.5 mg PO TWICE A DAY as needed for afib November 11, 2023 10:05am September 09, 2024 2:44pm Start: 09-09-2022 End: 11-11-2023 take 12.5 mg by mouth twice daily Metoprolol Tartrate Active 12.5 MG PO TWICE A DAY October 12, 2022 8:25am Start: 06-26-2021 End: 09-09-2022 take 1 tablet by mouth once daily as needed Metoprolol Tartrate 25 mg tablet Discontinued 25 mg PO DAILY as needed for PRN for palpitations, tachycardia 30 3 June 26, 2021 3:34pm September 09, 2022 11:01am Start: 05-31-2021 End: 07-02-2021 take 2 tablets by mouth twice daily Metoprolol Succinate 25 mg tablet extended release 24 hr Discontinued 12.5 mg PO TWICE A DAY June 05, 2021 10:50am July 02, 2021 4:16pm Changing from Tartrate to Succinate for tolerance On Hold: Order Changed Start: 05-31-2021 End: 07-02-2021 take 12.5 mg by mouth twice daily Metoprolol Succinate Discontinued 12.5 MG PO TWICE A DAY 90 June 05, 2021 9:50am July 02, 2021 3:16pm On Hold: Order Changed Start: 05-30-2021 End: 05-31-2021 take 1 tablet by mouth once daily Metoprolol Succinate 25 mg tablet extended release 24 hr Discontinued 25 mg PO DAILY 90 May 30, 2021 1:04pm May 31, 2021 4:08pm Changing from Tartrate to Succinate for tolerance Start: 03-06-2021 End: 05-30-2021 take 2 tablets by mouth once daily Metoprolol Succinate 25 mg tablet extended release 24 hr Discontinued 12.5 mg PO DAILY 16 March 06, 2021 12:00am May 30, 2021 12:59pm Changing from Tartrate to Succinate for tolerance Start: 03-06-2021 End: 05-30-2021 take 12.5 mg by mouth once daily Metoprolol Succinate Discontinued 12.5 MG PO DAILY March 06, 2021 12:00am May 30, 2021 12:59pm Start: 08-01-2020 End: 03-06-2021 Metoprolol Tartrate 25 mg ta blet Discontinued 12.5 mg PO TWICE A DAY 30 August 01, 2020 1:00am March 06, 2021 4:02pm Start: 08-01-2020 End: 03-06-2021 take 12.5 mg by mouth twice daily Metoprolol Tartrate Discontinued 12.5 MG PO TWICE A DAY August 01, 2020 1:00am March 06, 2021 4:02pm Start: 10-14-2018 End: 11-03-2018 Metoprolol Tartrate 25 MG ta blet Discontinued 12.5 mg PO TWICE A DAY 30 0 October 14, 2018 1:00am November 03, 2018 4:15pm Start: 10-14-2018 End: 11-03-2018 take 12.5 mg by mouth twice daily Metoprolol Tartrate Discontinued 12.5 MG PO TWICE A DAY October 14, 2018 1:00am November 03, 2018 4:15pm Comment on above: Take 25 mg by mouth twice daily. Takes as needed for rapid HR 24 hr mirabegron 25 mg extended release oral tablet (11 sources) beta3-Adrenergic Agonist Start: 07-26-2024 End: 10-26-2024 take 1 tablet by mouth once daily mirabegron (MYRBETRIQ) 25 mg Tb24 Indications: Urinary urgency Take 1 tablet by mouth once daily. 30 tablet 2 07/26/2024 10/26/2024 Discontinued MULTIPLE VITAMINS-MINERALS (4 sources) Start: 08-10-2014 WOMENS MULTIVITAMIN PLUS TABS daily MULTIPLE VITAMINS-MINERALS [id number] Alexa E Frase MULTIPLE VITAMINS-MINERALS (4 sources) Start: 08-10-2014 WOMENS MULTIVITAMIN PLUS TABS daily MULTIPLE VITAMINS-MINERALS [id number] Alexa E Frase Start: 08-10-2014 WOMENS MULTIVI TAMIN PLUS TABS daily MULTIPLE VITAMINS-MINERALS [id number] Alexa E Frase [place]-3 Fatty Acids (Fish Oil Concentrate) 1,000 mg capsule (20 sources) Start: 03-21-2021 End: 12-02-2021 take 1 capsule by mouth once daily [place]-3 Fatty Acids (Fish Oil Concentrate) 1,000 mg capsule Discontinued 1000 MG PO DAILY March 21, 2021 9:12am December 02, 2021 2:12pm Start: 03-21-2021 take 1 capsule by mo [facility] once daily [place]-3 Fatty Acids (Fish Oil Concentrate) 1,000 mg capsule Active 1000 MG PO DAILY March 21, 2021 9:12am Start: 03-21-2021 End: 12-02-2021 take 1 capsule by mouth once daily [place]-3 Fatty Acids (Fish Oil Concentrate) 1,000 mg capsule Discontinued 1000 mg PO DAILY March 21, 2021 12:00am December 02, 2021 2:12pm Start: 03-21-2021 End: 12-02-2021 take 1 capsule by mouth once daily [place]-3 Fatty Acids (Fish Oil Concentrate) 1,000 mg capsule Discontinued 1000 MG PO DAILY March 20, 2021 11:00pm December 02, 2021 1:12pm Start: 03-21-2021 End: 12-02-2021 take 1 capsule by mouth once daily [place]-3 Fatty Acids (Fish Oil Concentrate) 1,000 mg capsule Discontinued 1000 MG PO DAILY March 21, 2021 12:00am December 02, 2021 2:12pm OTC PRODUCT (3 sources) OTC PRODUCT Heal thy Lungs vitamin 0 Active Comment on above: Healthy Lungs vitami n oxybutynin chloride 5 mg oral tablet (6 sources) Cholinergic Muscarinic Antagonist Start: 7 OXYBUTYNIN CHLORIDE 5 MG TABS 1/2 tablet at night OXYBUTYNIN CHLORIDE [id number] Freddy Costa MD polyethylene glycol 3350 878674 mg / potassium chloride 2970 mg / sodium bicarbonate 6740 mg / sodium chloride 5860 mg / sodium sulfate 14847 mg powder for oral solution (20 sources) Osmotic Laxative Start: 9 End: 0 take 4000 mL by mouth once Peg 3350-Electrolytes 236-22.74-6.74 -5.86 gram recon soln Discontinued 4000 mL PO ONCE 4000 0 August 04, 2019 1:00am July 27, 2020 2:08pm until fecal effluent is clear; do not exceed a total volume of 4000 mL Start: 08-04-2019 End: 07-27-2020 take 4000 mL by mouth once Peg 3350-Electrolytes Disco ntinued 4000 ML PO ONCE 4000 August 04, 2019 1:00am July 27, 2020 2:08pm until fecal effluent is clear; do not exceed a total volume of 4000 mL prasterone 25 mg oral capsule (20 sources) Start: 07-27-2020 End: 11-11-2023 take 1 capsule by mouth once daily Prasterone (Dhea) (Dhea) 25 mg capsule Discontinued 15 mg PO DAILY July 27, 2020 1:00am November 11, 2023 10:05am prasterone, DHEA, (DHEA ORAL) (20 sources) End: 10-26-2024 prasterone, DHEA, (DHEA ORAL) Take by mouth. 0.15 mg 10/26/2024 Discontinued End: 01-21-2023 take 15 mg by mouth once daily prasterone, DHEA, (DHEA ORAL) Take 15 mg by mouth once daily. 01/21/2023 Discontinued (Course of therapy completed) prasterone, DHEA , (DHEA ORAL) Take by mouth. 0.15 mg Active prasterone, DHEA , (DHEA ORAL) Take by mouth. 0.15 mg 0 Active End: 01-21-2023 take 15 mg by mouth once daily prasterone, DHEA, (DHEA ORAL) Take 15 mg by mouth once daily. 0 01/21/2023 Discontinued (Course of therapy completed) take 15 mg by mouth once daily p rasterone, DHEA, (DHEA ORAL) Take 15 mg by mouth once daily. 0 Active Comment on above: Take 15 mg by mouth once daily. Take by mouth. 0.15 mg predniSONE 20 mg oral tablet (20 sources) Start: 06-07-2019 End: 08-02-2019 take 2 tablets by mouth once daily at mealtime Prednisone 20 MG tablet Discontinued 40 mg PO DAILY June 07, 2019 12:00am August 02, 2019 5:00pm With food Start: 06-07-2019 End: 08-02-2019 take 40 mg by mouth once daily at mealtime Prednisone Discontinued 40 MG PO DAILY June 07, 2019 12:00am August 02, 2019 5:00pm With food PROBIOTIC PRODUCT (4 sources) Start: 08-10-2014 PROBIOTIC CAPS as directed PROBIOTIC PRODUCT [id number] Alexa E Frase Start: 08-10-2014 PROBIOTIC CAPS as directed PROBIOTIC PRODUCT [id number] Alexa E Frase PROBIOTIC PRODUCT (3 sources) Start: 08-10-2014 PROBIOTIC CAPS as directed PROBIOTIC PRODUCT [id number] Alexa E Frase Start: 08-10-2014 PROBIOTIC CAPS as directed PROBIOTIC PRODUCT [id number] Alexa E Frase PROBIOTIC PRODUCT (1 source) Start: 08-10-2014 PROBIOTIC CAPS as directed PROBIOTIC PRODUCT [id number] Alexa E Frase rosuvastatin calcium 5 mg oral tablet (20 sources) HMG-CoA Reductase Inhibitor Start: 11-09-2023 End: 10-26-2024 take 1 tablet by mouth once daily at bedtime rosuvastatin (CRESTOR) 5 mg tablet Indications: Hyperlipidemia, mixed Take 1 tablet by mouth daily at bedtime. 30 tablet 5 11/09/2023 10/26/2024 Discontinued (Other) thioctic acid 50 mg oral capsule (20 sources) Start: 10-12-2022 End: 06-22-2024 take 1 capsule by mouth once daily Alpha Lipoic Acid 50 mg Capsule Discontinued 50 mg PO DAILY October 12, 2022 1:00am June 22, 2024 4:10pm supplement VIT D-VIT E-SAFFLOWER OIL (2 sources) Start: 05-14-2017 take 1 tablet by mouth once daily VITAMINS E & D BEAUTY OIL [phone] UNIT/52ML OIL One tablet by mouth daily VIT D-VIT E-SAFFLOWER OIL [id number] Freddy Costa MD VIT D-VIT E-SAFFLOWER OIL (4 sources) Start: 05-14-2017 take 1 tablet by mouth once daily VITAMINS E & D BEAUTY OIL [phone] UNIT/52ML OIL One tablet by mouth daily VIT D-VIT E-SAFFLOWER OIL [id number] Freddy Costa MD Start: 05-14-2017 take [phone] table ts by mouth once daily VITAMINS E & D BEAUTY OIL [phone] UNIT/52ML OIL One tablet by mouth daily VIT D-VIT E-SAFFLOWER OIL [id number] Freddy Costa MD CHOLECALCIFEROL TABS (8 sources) Start: 08-10-2014 VITAMIN D TABS daily CHOLECALCIFEROL TABS [id number] Alexa E Frase Start: 08-10-2014 VITAMIN D TABS daily CHOLECALCIFEROL TABS [id number] Alexa E Frase warfarin sodium 5 mg oral tablet (20 sources) Vitamin K Antagonist Start: 11-28-2024 End: 01-26-2025 Warfarin 5 mg tablet Discontinued 5 mg PO .COMPLEX January 26, 2025 12:55pm January 26, 2025 12:58pm 5 mg orally M/W/F, 7.5 mg (1.5 tablets) S/T//S or as directed Please contact the information source for Protocol details. Start: 10-12-2022 End: 11-28-2024 take 7.5 mg by mouth once daily Warfarin 5 mg tablet Discontinued 7.5 mg PO DAILY 135 3 December 28, 2023 10:18am November 28, 2024 3:59pm Please contact the information source for Protocol details. Start: 10-12-2022 End: 01-20-2023 take 7.5 mg by mouth once daily Warfarin Discontinued 7.5 MG PO DAILY January 20, 2023 3:35pm January 20, 2023 3:37pm Start: 10-12-2022 End: 06-22-2024 Warfarin 5 mg tablet Discont inued 10 mg PO JONAS October 12, 2022 1:00am June 22, 2024 4:10pm afib Please contact the information source for Protocol details. Start: 10-12-2022 Warfarin Activ e 10 MG PO JONAS October 12, 2022 1:00am Start: 03-26-2021 End: 10-12-2022 Warfarin 5 mg tablet Discont inued 5 mg PO .COMPLEX 135 4 December 20, 2021 10:01am October 12, 2022 9:26am 5 mg PO take one and one half tablet (7.5mg) daily or as directed; Please contact the information source for Protocol details. Comment on above: Take 1 tablet by daily except 7.5mg on ( [facility]) Problems Active Problems Problem Classification Problem Date Documented Da te Episodic/Chronic Acute bronchitis (20 sources) Acute bronchitis; Translations: [Acute bronchitis, unspecified] 06-08-2019 Episodic Adjustment disorders (2 sources) Grief finding; Translations: [Adjustment disorder with depressed mood] 06-09-2023 Chronic Anxiety disorders (2 sources) Mixed anxiety and depressive disorder; Translations: [Anxiety disorder, unspecified] Onset: 4 05-06-2024 Chronic Asthma (20 sources) Exacerbation of asthma; Translations: [Unspecified asthma with (acute) exacerbation] Onset: 8 Chronic Cardiac dysrhythmias (20 sources) Irregular heart beat; Translations: [Cardiac arrhythmia, unspecified] Onset: 9 Chronic Cardiac dysrhythmias (20 sources) Palpitations; Translations: [Palpitations] Onset: 5 01-13-2022 Episodic Diabetes mellitus without complication (1 source) Impaired fasting glycemia; Translations: [Impaired fasting glucose] Episodic Disorders of lipid metabolism (4 sources) Mixed hyperlipidemia; Translations: [Mixed hyperlipidemia] Onset: 4 Chronic E Codes: Fall (20 sources) Fall on same level from slipping, tripping or stumbling ; Translations: [Fall on same level from slipping, tripping and stumbling without subsequent striking against object, initial encounter] Onset: 4 01-13-2022 Episodic Essential hypertension (20 sources) Essential hypertension; Translations: [Essential (primary) hypertension] Onset: 1 Chronic Fracture of lower limb (1 source) Closed fracture of phalanx of foot; Translations: [Displaced unspecified fracture of right lesser toe(s), initial encounter for closed fracture] Episodic Genitourinary symptoms and ill-defined conditions (7 sources) Urge incontinence of urine; Translations: [Urge incontinence] Onset: 7 05-14-2017 Chronic Infective arthritis and osteomyelitis (except that caused by tuberculosis or sexually transmitted disease) (1 source) Acute osteomyelitis of right foot; Translations: [Other acute osteomyelitis, right ankle and foot] Chronic Joint disorders and dislocations; trauma-related (1 source) Dislocation of toe joint; Translations: [Unspecified dislocation of right toe(s), initial encounter] Episodic Malaise and fatigue (11 sources) Fatigue; Translations: [Other fatigue] Onset: 4 04-05-2024 Episodic Mood disorders (20 sources) Severe recurrent major depression without psychotic features; Translations: [Major depressive disorder, recurrent severe without psychotic features] Onset: 9 11-29-2018 Chronic Mood disorders (1 source) Mood disorders; Translations: [Anxiety and depression] Onset: 4 Mycoses (3 sources) Onychomycosis; Translations: [Tinea unguium] Onset: 5 03-04-2023 Episodic Nutritional deficiencies (20 sources) Vitamin D deficiency; Translations: [Vitamin D deficiency, unspecified] Onset: 4 09-20-2013 Chronic Occlusion or stenosis of precerebral arteries (20 sources) Bilateral stenosis of carotid arteries; Translations: [Occlusion and stenosis of bilateral carotid arteries] Onset: 4 03-21-2024 Chronic Osteoarthritis (20 sources) Osteoarthritis of finger joint; Translations: [Degenerative joint disease involving multiple joints] Onset: 7 05-22-2017 Chronic Other aftercare (20 sources) Long-term current use of anticoagulant; Translations: [long term (current) use of 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] 03-26-2021 Episodic Other aftercare (7 sources) senior care (current) use of 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; Translations: [Long-term (current) use of 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] Onset: 5 Episodic Other aftercare (7 sources) Long-term current use of diuretic; Translations: [Encounter for therapeutic drug level monitoring] 09-27-2024 Episodic Other aftercare (4 sources) Anticoagulant effect; Translations: [long term (current) use of 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] 11-28-2024 Episodic Other aftercare (2 sources) Patient encounter status; Translations: [senior care (current) use of 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] 12-30-2024 Episodic Other aftercare (1 source) Other residential (current) drug therapy; Translations: [Medication management] Onset: 5 Episodic Other and ill-defined cerebrovascular disease (4 sources) Cerebral ischemia; Translations: [Transient cerebral ischemic attack, unspecified] 10-26-2024 Chronic Other circulatory disease (1 source) Choking sensation; Translations: [Other specified symptoms and signs involving the circulatory and respiratory systems] 04-05-2024 Episodic Other circulatory disease (1 source) Abnormal peripheral pulse; Translations: [Other specified symptoms and signs involving the circulatory and respiratory systems] 07-28-2024 Episodic Other circulatory disease (1 source) Other specified symptoms and signs involving the circulatory and respiratory systems; Translations: [Diminished pulses in lower extremity] Onset: 5 Episodic Other congenital anomalies (8 sources) Spondylolisthesis; Translations: [Spondylolisthesis, site unspecified] Onset: 4 08-20-2014 Chronic Other connective tissue disease (1 source) Plantar fasciitis; Translations: [Plantar fascial fibromatosis] Episodic Other connective tissue disease (4 sources) Pain in toe; Translations: [Pain in right toe(s)] Episodic Other connective tissue disease (2 sources) Pain in right toe(s); Translations: [Pain in toe of right foot] Onset: 3 Episodic Other connective tissue disease (1 source) Other specified soft tissue disorders; Translations: [Pain and swelling of toe, right] Onset: 3 Episodic Other connective tissue disease (1 source) Pain of toe of left foot; Translations: [Pain in left toe(s)] 03-04-2023 Episodic Other connective tissue disease (2 sources) Pain of toe of right foot; Translations: [Pain in right toe(s)] 03-04-2023 Episodic Other connective tissue disease (2 sources) Tendinitis of wrist; Translations: [Other enthesopathies, not elsewhere classified] 08-17-2023 Episodic Other connective tissue disease (9 sources) Tendonitis of right wrist; Translations: [Other enthesopathies, not elsewhere classified] 12-25-2023 Episodic Other connective tissue disease (2 sources) Spasm; Translations: [Other muscle spasm] 04-22-2024 Episodic Other connective tissue disease (2 sources) Bilateral weakness of upper limbs; Translations: [Other symptoms and signs involving the musculoskeletal system] 10-26-2024 Episodic Other connective tissue disease (1 source) Other symptoms and signs involving the musculoskeletal system; Translations: [Other musculoskeletal symptoms referable to limbs] 10-26-2024 Episodic Other diseases of bladder and urethra (6 sources) Bladder muscle dysfunction - overactive; Translations: [Overactive bladder] Onset: 7 05-14-2017 Chronic Other fractures (1 source) Closed fracture of one rib; Translations: [Fracture of one rib, right side, subsequent encounter for fracture with routine healing] Episodic Other gastrointestinal disorders (20 sources) Irritable bowel syndrome; Translations: [Mixed irritable bowel syndrome] Onset: 6 08-25-2019 Chronic Other gastrointestinal disorders (11 sources) Alteration in bowel elimination; Translations: [Change in bowel habit] Episodic Other gastrointestinal disorders (20 sources) Altered bowel function; Translations: [Change in bowel habit] 08-02-2019 Episodic Other gastrointestinal disorders (2 sources) Dysphagia; Translations: [Dysphagia, unspecified] 04-05-2024 Episodic Other injuries and conditions due to external causes (2 sources) Injury of right foot; Translations: [Unspecified injury of right foot, initial encounter] Episodic Other injuries and conditions due to external causes (7 sources) Closed injury of head; Translations: [Unspecified injury of head, initial encounter] 05-25-2024 Episodic Other injuries and conditions due to external causes (7 sources) Abrasion; Translations: [Other injury of unspecified body region, initial encounter] 06-30-2024 Episodic Other injuries and conditions due to external causes (7 sources) Injury of face; Translations: [Unspecified injury of face, initial encounter] 06-30-2024 Episodic Other lower respiratory disease (20 sources) Dyspnea; Translations: [Shortness of breath] Onset: 2 12-23-2021 Episodic Other lower respiratory disease (20 sources) Rib pain; Translations: [Pleurodynia] 01-13-2022 Episodic Other lower respiratory disease (1 source) Dyspnea on exertion; Translations: [Other forms of dyspnea] 02-10-2024 Episodic Other lower respiratory disease (1 source) Cough; Translations: [Cough, unspecified type] 05-17-2024 Episodic Other lower respiratory disease (2 sources) Cough; Translations: [Acute cough] 07-26-2024 Episodic Other nervous system disorders (4 sources) Cervical myelopathy; Translations: [Disease of spinal cord, unspecified] Onset: 4 08-10-2014 Chronic Other nervous system disorders (1 source) Other chronic pain; Translations: [Chronic pain of both shoulders] Onset: 5 Chronic Other nervous system disorders (1 source) Numbness and tingling sensation of skin; Translations: [Anesthesia of skin] 04-05-2024 Episodic Other nervous system disorders (6 sources) Impairment of balance; Translations: [Other abnormalities of gait and mobility] 06-27-2024 Episodic Other nervous system disorders (1 source) Abnormal gait due to impairment of balance; Translations: [Other abnormalities of gait and mobility] 06-27-2024 Episodic Other non-traumatic joint disorders (4 sources) Pain in right knee; Translations: [Other acute pain] Onset: 5 Episodic Other non-traumatic joint disorders (2 sources) Pain of right wrist; Translations: [Pain in right wrist] 07-15-2023 Episodic Other non-traumatic joint disorders (1 source) Instability of joint of right knee; Translations: [Other instability, right knee] 09-06-2021 Episodic Other non-traumatic joint disorders (5 sources) Bilateral chronic pain of upper limbs; Translations: [Pain in right shoulder] Onset: 5 01-26-2025 Episodic Other non-traumatic joint disorders (1 source) Pain in left knee; Translations: [Pain in both knees, unspecified chronicity] Onset: 5 Episodic Other non-traumatic joint disorders (1 source) Pain in right shoulder; Translations: [Chronic pain of both shoulders] Onset: 5 Episodic Other non-traumatic joint disorders (1 source) Pain in left shoulder; Translations: [Chronic pain of both shoulders] Onset: 5 Episodic Other nutritional; endocrine; and metabolic disorders (1 source) Excessive thirst; Translations: [Polydipsia] 11-09-2023 Episodic Other nutritional; endocrine; and metabolic disorders (1 source) Weight gain; Translations: [Abnormal weight gain] 04-05-2024 Episodic Other nutritional; endocrine; and metabolic disorders (1 source) Weight increased; Translations: [Abnormal weight gain] 01-26-2025 Episodic Other nutritional; endocrine; and metabolic disorders (1 source) Abnormal weight gain; Translations: [Weight gain] Onset: Episodic Other skin disorders (2 sources) Skin lesion; Translations: [Disorder of the skin and subcutaneous tissue, unspecified] 01-27-2025 Episodic Other skin disorders (1 source) Disorder of the skin and subcutaneous tissue, unspecified; Translations: [Skin lesion] Onset: Episodic Other upper respiratory disease (20 sources) Allergic rhinitis; Translations: [Allergic rhinitis, unspecified] Onset: 4 09-05-2004 Chronic Phlebitis; thrombophlebitis and thromboembolism (20 sources) Superficial thrombophlebitis; Translations: [Phlebitis and thrombophlebitis of unspecified site] 11-02-2018 Episodic Residual codes; unclassified (20 sources) Obstructive sleep apnea syndrome; Translations: [Obstructive sleep apnea (adult) (pediatric)] 12-02-2021 Chronic Residual codes; unclassified (20 sources) Daytime hypersomnia; Translations: [Hypersomnia, unspecified] 12-17-2021 Chronic Residual codes; unclassified (6 sources) Obstructive sleep apnea (adult) (pediatric); Translations: [Obstructive sleep apnea (adult)(pediatric)] Chronic Residual codes; unclassified (6 sources) Hypersomnia, unspecified; Translations: [Hypersomnia, unspecified] Chronic Residual codes; unclassified (2 sources) Pain; Translations: [Pain, unspecified] Episodic Residual codes; unclassified (1 source) Insomnia; Translations: [Insomnia, unspecified] 04-05-2024 Episodic Residual codes; unclassified (3 sources) Memory impairment; Translations: [Other amnesia] 10-21-2024 Episodic Spondylosis; intervertebral disc disorders; other back problems (20 sources) Degeneration of lumbar intervertebral disc; Translations: [Degeneration of cervical intervertebral disc] Onset: 4 08-20-2014 Chronic Spondylosis; intervertebral disc disorders; other back problems (20 sources) Neck pain; Translations: [Low back pain] Onset: 9 Resolved: 5 08-10-2014 Episodic Superficial injury; contusion (15 sources) Contusion of hand; Translations: [Contusion of unspecified hand, initial encounter] Onset: 4 06-30-2024 Episodic Syncope (20 sources) Near syncope; Translations: [Syncope and collapse] Onset: 4 08-02-2019 Episodic Thyroid disorders (1 source) Acquired hypothyroidism; Translations: [Hypothyroidism, unspecified] 06-09-2023 Chronic Transient cerebral ischemia (1 source) Transient cerebral ischemic attack, unspecified; Translations: [Transient cerebral ischemia, unspecified type] Onset: 5 Chronic Unclassified (4 sources) Procedure carried out on subject; Translations: [Encounter for screening for nutritional disorder] Onset: 7 05-14-2017 Unclassified (1 source) Bilateral chronic pain of upper limbs 01-27-2025 Unclassified (1 source) Established Patient Onset: 5 Unclassified (1 source) Acute cough; Translations: [Acute cough] Onset: 4 Unclassified (1 source) Cough, unspecified; Translations: [Cough, unspecified] Onset: 4 Viral infection (20 sources) Disease caused by 2019-nCoV; Translations: [COVID-19] 09-08-2022 Episodic Past or Other Problems Problem Classification Problem Date Documented Da te Episodic/Chronic Abdominal pain (20 sources) Abdominal pain; Translations: [Unspecified abdominal pain] Onset: 11-23-2006 Resolved: 10-08-2014 10-08-2014 Episodic Chronic ulcer of skin (20 sources) Ankle ulcer; Translations: [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] Onset: 06-24-2013 Resolved: 10-08-2014 10-08-2014 Chronic Conditions associated with dizziness or vertigo (20 sources) Benign paroxysmal positional vertigo; Translations: [Benign paroxysmal vertigo, unspecified ear] Onset: 10-30-2014 10-30-2014 Episodic Gastrointestinal hemorrhage (20 sources) Rectal hemorrhage; Translations: [Hemorrhage of anus and rectum] Onset: 09-06-2010 Resolved: 10-08-2014 10-08-2014 Episodic Genitourinary symptoms and ill-defined conditions (20 sources) Increased frequency of urination; Translations: [Nocturia] Onset: 03-01-2014 Resolved: 10-08-2014 05-14-2017 Episodic Nutritional deficiencies (4 sources) Cobalamin deficiency; Translations: [Deficiency of other specified B group vitamins] Onset: 05-03-2024 04-05-2024 Episodic Open wounds of extremities (20 sources) Open wound of finger; Translations: [Unspecified open wound of unspecified finger without damage to nail, initial encounter] Onset: 06-14-2005 Resolved: 10-08-2014 10-08-2014 Episodic Other bone disease and musculoskeletal deformities (6 sources) Osteopenia; Translations: [Other specified disorders of bone density and structure, unspecified site] Onset: 05-14-2017 05-14-2017 Episodic Other connective tissue disease (16 sources) Trochanteric bursitis; Translations: [Iliotibial band friction syndrome] Onset: 09-04-2016 09-04-2016 Episodic Other connective tissue disease (2 sources) Hand pain; Translations: [Pain in left hand] Onset: 05-22-2017 05-22-2017 Episodic Other connective tissue disease (2 sources) Iliotibial band friction syndrome; Translations: [Iliotibial band syndrome, unspecified leg] Onset: 09-04-2016 09-04-2016 Episodic Other connective tissue disease (20 sources) Ganglion of joint; Translations: [Ganglion, unspecified site] Onset: 08-07-2005 Resolved: 10-08-2014 10-08-2014 Episodic Other connective tissue disease (1 source) Other muscle spasm; Translations: [Muscle spasm] Onset: 04-23-2024 Episodic Other gastrointestinal disorders (1 source) Dysphagia, unspecified; Translations: [Dysphagia, unspecified] Onset: 06-08-2024 Episodic Other injuries and conditions due to external causes (1 source) Unspecified injury of head, initial encounter; Translations: [Unspecified injury of head, initial encounter] Onset: 06-08-2024 Episodic Other lower respiratory disease (7 sources) Shortness of breath; Translations: [Shortness of breath] Onset: 11-21-2024 Episodic Other lower respiratory disease (2 sources) Pleurodynia; Translations: [Painful rib] Onset: 04-23-2024 Episodic Other lower respiratory disease (1 source) Dyspnea, unspecified; Translations: [Dyspnea, unspecified] Onset: 12-02-2024 Episodic Other nervous system disorders (1 source) Other abnormalities of gait and mobility; Translations: [Balance disorder] Onset: 10-26-2024 Episodic Other non-traumatic joint disorders (14 sources) Hip pain; Translations: [Facet joint pain] Onset: 09-15-2014 09-04-2016 Episodic Other non-traumatic joint disorders (2 sources) Facet joint pain; Translations: [Dorsalgia, unspecified] Onset: 09-15-2014 10-01-2014 Episodic Residual codes; unclassified (1 source) Other amnesia; Translations: [Memory change] Onset: 10-26-2024 Episodic Skin and subcutaneous tissue infections (20 sources) Cellulitis; Translations: [Cellulitis, unspecified] Onset: 06-24-2013 Resolved: 10-08-2014 10-08-2014 Episodic Sprains and strains (20 sources) Sprain of sacroiliac ligament; Translations: [Sprain of sacroiliac joint, initial encounter] Onset: 11-06-2015 11-06-2015 Episodic Unclassified (8 sources) Encounter for screening for nutritional disorder; Translations: [Encounter for screening for diseases of the blood and blood-forming organs and certain disorders involving the immune mechanism] Onset: 05-14-2017 05-14-2017 Episodic Unclassified (20 sources) crain phlebectatica 11-02-2018 Unclassified (20 sources) history TMJ surgery 03-13-2022 Unclassified (20 sources) history vein surgery 03-13-2022 Unclassified (1 source) Weakness of both lower extremities 10-26-2024 Varicose veins of lower extremity (20 sources) Ankle ulcer; Translations: [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] Onset: 07-18-2013 Resolved: 06-09-2023 02-09-2021 Episodic Results Test Name Value Interpretation Reference Range Facility Absolute lymphocyte countOrd ered By: Johnie Kelsey on 03-15-2025 Lymphocytes Auto (Unsp spec) [#/Vol] 1.34 10*3/uL 0.83-4.51 [facility] Absolute neutrophil countOrd ered By: Johnie Kelsey on 03-15-2025 Neutrophils (Bld) [#/Vol] 2.9 10*3/uL 2.0-7.7 [facility] Anion gap in Serum or Plasma Ordered By: Johnie Kelsey on 03-15-2025 Anion gap [Moles/Vol] 10 mmol/L 5-15 [facility] Automated lymphocyte count a s percentage of total leukocytesOrdered By: Johnie Kelsey on 03-15-2025 Lymphocytes/100 WBC Auto (Unsp spec) 25.9 % 19-41 [facility] BUN/creatinine ratioOrdered By: Johnie Kelsey on 03-15-2025 Urea nitrogen/Creatinine [Mass ratio] 33.3 mg/mg High 10-20 [facility] Basophil percentageOrdered B y: Johnie Kelsey on 03-15-2025 Basophils/100 WBC (Bld) 1.0 % 0-1 [facility] Bilirubin Test strip Ql (U)O rdered By: Johnie Kelsey on 03-15-2025 Bilirubin Ql (U) Negative Negative [facility] Bilirubin, totalOrdered By: Johnie Kelsey on 03-15-2025 Bilirubin [Mass/Vol] 0.33 mg/dL 0.00-1.30 [facility] Carbon dioxide, total [Moles /volume] in Central venous bloodOrdered By: Johnie Kelsey on 03-15-2025 CO2 [Moles/Vol] 24.0 mmol/L 21.0-32.0 [facility] Chloride assayOrdered By: laura Kelsey on 03-15-2025 Chloride [Moles/Vol] 103 mmol/L 98-108 [facility] Eosinophil percentageOrdered By: Johnie Kelsey on 03-15-2025 Eosinophils/100 WBC (Bld) 3.1 % 0-5 [facility] Erythrocyte distribution wid th ratioOrdered By: Johnie Kelsey on 03-15-2025 Erythrocyte distribution width (RBC) [Ratio] 13.5 % 11.6-14.6 [facility] Erythrocyte distribution wid th standard deviationOrdered By: Johnie Kelsey on 03-15-2025 Erythrocyte distribution width (RBC) [Ratio] 49.9 fl High 35.1-43.9 [facility] Glomerular filtration rate ( GFR) estimation/1.73 sq m using serum, plasma, or whole bOrdered By: Johnie Kelsey on 03-15-2025 GFR/1.73 sq M.predicted among non-blacks MDRD (S/P/Bld) [Vol rate/Area] 69 mL/min/{1.73_m2} >60 [facility] Comment on above: mL/min/1.73m2 CKD-EP I Creatinine Equation (2020) Hematocrit Auto (Bld) [Volum e fraction]Ordered By: Johnie Kelsey on 03-15-2025 Hematocrit (Bld) [Volume fraction] 35.1 % Low 37-47 [facility] Hemoglobin measurementOrdere d By: Johnie Kelsey on 03-15-2025 Hemoglobin (Bld) [Mass/Vol] 11.2 g/dL Low 12.0-15.0 [facility] Immature granulocytes/100 WB C Auto (Bld)Ordered By: Johnie Kelsey on 03-15-2025 Immature granulocytes/100 WBC (Bld) 0.400 % 0.0-0.9 [facility] Comment on above: IG% - Immature Granu locytes (promyelocytes, myelocytes and metamyelocytes) > 1% indicates that a LEFT SHIFT is Present. International normalized rat io (INR) calculationOrdered By: Johnie Kelsey on 03-15-2025 INR Coag (Bld) [Relative time] 2.4 {INR} [facility] Ketones Test strip Ql (U)Ord ered By: Johnie Kelsey on 03-15-2025 Ketones Ql (U) Negative Negative [facility] Laboratory - Chemistry and C hemistry - challengeOrdered By: Johnie Kelsey on 03-15-2025 AST [Catalytic activity/Vol] 15 U/L <32 [facility] Lactic acid measurementOrder ed By: Johnie Kelsey on 03-15-2025 Lactate [Moles/Vol] mmol/L 0.0-2.0 [facility] MCV (mean corpuscular volume ) determinationOrdered By: Johnie Kelsey on 03-15-2025 MCV (RBC) [Entitic vol] 98.9 fL 81-99 [facility] Mean corpuscular hemoglobin (MCH) determinationOrdered By: Johnie Kelsey on 03-15-2025 MCH (RBC) [Entitic mass] 31.5 pg 27.0-32.0 [facility] Mean corpuscular hemoglobin concentration (MCHC) determinationOrdered By: Johnie Kelsey on 03-15-2025 MCHC (RBC) [Mass/Vol] 31.9 g/dL Low 32-36 [facility] Mean platelet volume determi nationOrdered By: Johnie Kelsey on 03-15-2025 Platelet mean volume (Bld) [Entitic vol] 13.1 fL High 6.2-12.0 [facility] Microscopic analysis of urin e for red blood cells (RBC)Ordered By: Johnie Kelsey on 03-15-2025 Microscopic analysis of urine for red blood cells (RBC) 0-5 SEEN /hpf 0-5 [facility] Monocyte percentageOrdered B y: Johnie Kelsey on 03-15-2025 Monocytes/100 WBC (Bld) 13.1 % High 0-10 [facility] Mucus LM Ql (Urine sed)Order ed By: Johnie Kelsey on 03-15-2025 Mucus Ql (Urine sed) 0 SEEN /hpf [facility] Neutrophil percentageOrdered By: Johnie Kelsey on 03-15-2025 Neutrophils/100 WBC (Bld) 56.5 % 47-70 [facility] Nitrite Test strip Ql (U)Ord ered By: Johnie Kelsey on 03-15-2025 Nitrite Ql (U) Negative Negative [facility] Nucleated red blood cell per centageOrdered By: Johnie Kelsey on 03-15-2025 Nucleated RBC/100 WBC (Bld) [Ratio] 0 % 0-5 [facility] Platelet countOrdered By: Kelli Kelsey on 03-15-2025 Platelets (Bld) [#/Vol] 164 10*3/uL 150-450 [facility] Potassium measurement (mass/ volume)Ordered By: Johnie Kelsey on 03-15-2025 Potassium (Unsp spec) [Mass/Vol] 4.3 mmol/L 3.3-5.1 [facility] Protein Test strip Ql (U)Ord ered By: Johnie Kelsey on 03-15-2025 Protein Ql (U) Negative Negative [facility] Prothrombin timeOrdered By: Johnie Kelsey on 03-15-2025 PT Coag (PPP) [Time] 26.7 s High 11.7-14.9 [facility] RBC Auto (Bld) [#/Vol]Ordere d By: Johnie Kelsey on 03-15-2025 RBC (Bld) [#/Vol] 3.55 10*6/uL Low 4.2-5.4 [facility] Serum creatinine measurement (mass/volume)Ordered By: Johnie Kelsey on 03-15-2025 Creatinine [Mass/Vol] 0.86 mg/dL 0.70-1.20 [facility] Serum globulin measurementOr dered By: Johnie Kelsey on 03-15-2025 Globulin (S) [Mass/Vol] 2.7 g/dL 2.2-4.2 [facility] Serum glucose measurement (m ass/volume)Ordered By: Johnie Kelsey on 03-15-2025 Glucose [Mass/Vol] 90 mg/dL 70-99 [facility] Serum or plasma alanine prieto otransferase (ALT) measurementOrdered By: Johnie Kelsey on 03-15-2025 ALT [Catalytic activity/Vol] 12 U/L <35 [facility] Serum or plasma albumin ayanna urement (mass/volume)Ordered By: Johnie Kelsey on 03-15-2025 Albumin [Mass/Vol] 3.9 g/dL 3.4-4.8 [facility] Serum or plasma albumin/glob ulin mass ratioOrdered By: Johnie Kelsey on 03-15-2025 Albumin/Globulin [Mass ratio] 1.5 {ratio} 0.9-2.4 [facility] Serum or plasma alkaline lashay sphatase measurementOrdered By: Johnie Kelsey on 03-15-2025 ALP [Catalytic activity/Vol] 76 U/L 35-104 [facility] Serum or plasma calcium ayanna urement (mass/volume)Ordered By: Johnie Kelsey on 03-15-2025 Calcium [Mass/Vol] 9.1 mg/dL 7.6-11.0 [facility] Serum or plasma urea nitroge n measurement (mass/volume)Ordered By: Johnie Kelsey on 03-15-2025 Urea nitrogen [Mass/Vol] 29 mg/dL High 4-19 [facility] Sodium levelOrdered By: Isaias Kelsey on 03-15-2025 Sodium [Moles/Vol] 138 mmol/L 133-145 [facility] Squamous epithelial cells de tection in urine sediment by light microscopyOrdered By: Johnie Kelsey on 03-15-2025 Epithelial cells.squamous LM Ql (Urine sed) 0-5 SEEN /hpf 5-10 [facility] Total proteinOrdered By: Vanessa Kelsey on 03-15-2025 Protein [Mass/Vol] 6.6 g/dL 5.9-8.4 [facility] Troponin T.cardiac [Mass/vol ume] in Serum or Plasma by High sensitivity methodOrdered By: Johnie Kelsey on 03-15-2025 Troponin T.cardiac High sensitivity method [Mass/Vol] 10 ng/L <14 [facility] Troponin T.cardiac High sensitivity method [Mass/Vol] 9 ng/L <14 [facility] Urine clarityOrdered By: Vanessa Kelsey on 03-15-2025 Clarity (U) Clear Clear [facility] Urine color determinationOrd ered By: Johnie Kelsey on 03-15-2025 Color (U) Straw Yellow [facility] Urine glucose detectionOrder ed By: Johnie Kelsey on 03-15-2025 Glucose Ql (U) Normal mg/dl Normal [facility] Urine leukocyte esterase det ection by dipstickOrdered By: Johnie Kelsey on 03-15-2025 Leukocyte esterase Test strip Ql (U) Negative Negative [facility] Urine pHOrdered By: Johnie champagne on 03-15-2025 pH (U) 6.0 [pH] 5.0 - 8.0 [facility] Urine sediment bacteria coun t by microscopy (number/high power field)Ordered By: Johnie Kelsey on 03-15-2025 Bacteria LM.HPF (Urine sed) [#/Area] 0 /[HPF] None Seen [facility] Urine specific gravity measu rementOrdered By: Johnie Kelsey on 03-15-2025 Specific gravity (U) [Rel density] 1.010 1.002-1.03 0 [facility] Urine urobilinogen measureme ntOrdered By: Johnie Kelsey on 03-15-2025 Urobilinogen Ql (U) Normal mg/dl Normal [facility] White blood cell (WBC) count Ordered By: Johnie Kelsey on 03-15-2025 WBC (Bld) [#/Vol] 5.2 10*3/uL 4.4-11.0 [facility] White blood cell countOrdere d By: Johnie Kelsey on 03-15-2025 White blood cell count 0-5 SEEN /hpf 0-5 [facility] Protime w/INR Fingerstickon 03-09-2025 INR Coag (PPP) [Relative time] 2.8 {INR} Normal [facility] Comment on above: Result Comment: Crit ical Value > 4.0 Performed By: #### L 501.5200, L500.2500, L501.9520, L100.0100 #### [facility] [address] [place], [address] Protime Coagsen 29.4 SEC High 11.7-14.9 [facility] Comment on above: Performed By: #### L 501.5200, L500.2500, [id number], L100.0100 #### [facility] [address] [place], [address] International normalized rat io (INR) measurement by fingerstickOrdered By: Bart Rosales on 03-08-2025 INR Coag (BldC) [Relative time] 2.8 [facility] Comment on above: Critical Value > 4.0 Whole blood prothrombin time Ordered By: Bart Rosales on 03-08-2025 PT Coag (Bld) [Time] 29.4 s High 11.7-14.9 [facility] PVR ANK PRESS CHRISTOPHER VAS LABon 03-02-2025 PVR ANK PRESS CHRISTOPHER VAS LAB Non-Invasive Vascular Laboratory [facility] Lower Extremity Arterial Physiology Study Bilateral/Complete Date of service/time: 03/02/2025 3:39:28 PM Name: MRS. CADY BERUMEN Date of : 1945 Age: 79 years Gender: F Clinical Indication Decreased pulses. TECHNIQUE -------- An arterial physiological examination was performed, including measurement of blood pressures using continuous wave Doppler and recording of plethysmographic with or without Doppler waveforms at the below-mentioned limb segments. FINDINGS -------- RIGHT SIDE AT REST Right Doppler Waveforms Dorsalis pedis: Multiphasic. Post tibial: Multiphasic. Right Pressures Brachial: 125 mmHg Ankle dorsalis pedis: 132 mmHg MAXWELL: 1.06 Ankle posterior tibial: 138 mmHg MAXWELL: 1.10 Digit: 121 mmHg Right PVR Waveforms Ankle: Normal. Transmetatarsal: Normal. Digit: Normal. LEFT SIDE AT REST Left Doppler Waveforms Dorsalis pedis: Multiphasic. Post tibial: Multiphasic. Left Pressures Brachial: 123 mmHg Ankle dorsalis pedis: 142 mmHg MAXWELL: 1.14 Ankle posterior tibial: 136 mmHg MAXWELL: 1.09 Digit: 122 mmHg Left PVR Waveforms Ankle: Normal. Transmetatarsal: Normal. Digit: Normal. IMPRESSION RIGHT SIDE Resting right ankle brachial index: 1.10 Right toe brachial index: 0.97 Normal ankle brachial index at rest in the right leg. Normal toe brachial index at rest in the right leg. Right ankle: Normal at rest. LEFT SIDE Resting left ankle brachial index: 1.14 Left toe brachial index: 0.98 Normal ankle brachial index at rest in the left leg. Normal toe brachial index at rest in the left leg. Left ankle: Normal at rest. Technologist: Maira Orellana T Ordering physician: DAQUAN BUCHANAN Interpreting physician: RHONDA Brown DO Final CC [employer] Image : [id number] See Link below for Image Normal [facility] THERAPY NTon 02-09-2025 THERAPY NT HNO ID: [id number] Author: EDGAR DAVE PT Service: ? Author Type: Physical Therapist Type: Therapy (PT/OT/Speech/Resp) Filed: 02/09/2025 08:19 Note Text: Program_ID:[id number] Access Code: [email or web address] URL: [email or web address] [email or web address] Inference/ Date: 02-09-2025 Prepared By: Edgar Dave Program Notes Exercises - Supine Cervical Retraction with Towel - 2 x daily - 7 x weekly - 2 sets - 10 reps - Seated Scapular Retraction - 2 x daily - 7 x weekly - 2 sets - 10 reps - Seated Upper Trapezius Stretch - 2 x daily - 7 x weekly - sets - 4-5 reps - Gentle Levator Scapulae Stretch - 2 x daily - 7 x weekly - sets - 4-5 reps - Rhomboid/Posterior Neck Stretch - 2 x daily - 7 x weekly - sets - 4-5 reps - Corner Pec Minor Stretch - 2 x daily - 7 x weekly - sets - 4-5 reps Normal [facility] CNTHERAPYon 02-08-2025 CNTHERAPY OT/PT/Speech Visit ( PTWS) -- CADY BERUMEN ([id number]) 1945 F Date Time Provider Department 02/08/25 9:15 AM EDGAR DAVE PTWS Date Time Provider Department [place] 02/08/2025 9:15 AM [id number], COLIN PTWS Jermaine Johnson Reason for Visit: PT Eval [747] Primary Visit Diagnosis:Neck pain [M54.2] Other Visit Diagnosis:Chronic pain of both shoulders [M25.511, G89.29, M25.512] Allergies As of Date: 02/08/2025 Noted Allergy Reaction FRAGRANCES 11/28/2014 3 - Cough 12 - Shortness of Breath BENZODIAZEPINES 09/08/2014 1 - Mental Status Change Comments: Pt sees colors and laughing CATS 11/28/2014 9 - Itching 12 - Shortness of Breath Comments: Eventual wheezing DUST MITES 11/28/2014 14 - Other: See Comments Comments: Positive allergy test GRASS POLLEN-DONNA, STANDARD 11/28/2014 9 - Itching Comments: Nasal congestion MOLD 11/28/2014 9 - Itching Comments: Nasal congestion SEASONAL ALLERGIES 11/08/2010 3 - Cough SULFA (SULFONAMIDE ANTIBIOTICS) 06/13/2005 9 - Itching TREES 11/28/2014 9 - Itching Comments: Nasal congestion VALIUM (DIAZEPAM) 09/23/2013 5 - Intolerance Comments: Laughing hysterically, ultra sensitive ZITHROMAX (AZITHROMYCIN) 06/08/2019 14 - Other: See Comments Comments: nausea Date Reviewed: 01/26/2025 Reviewed by: José Miguel Saldaña APRN.FILE SYSTEM INSTALLER - Fully Assessed Prescriptions as of 02/09/2025 - baclofen 10 mg tablet Take 1 tablet by mouth three times a day as needed (muscle spasms). - furosemide (LASIX) 20 mg tablet Take 20 mg by mouth once daily. - metoprolol tartrate, short acting, (LOPRESSOR) 25 mg tablet Take 12.5 mg by mouth as needed. Takes as needed for rapid HR - timolol maleate (TIMOPTIC) 0.5 % ophthalmic solution Use 1 Drop in both eyes twice daily. - warfarin (COUMADIN) 5 mg tablet Take 1 tablet by mouth daily except 7.5mg on ( [facility]) - Cholecalciferol, Vitamin D3, 50 mcg (2,000 unit) cap Take 2 capsules by mouth once daily. - COQ10, UBIQUINOL, ORAL Take 30 mg by mouth. - latanoprost (XALATAN) 0.005 % ophthalmic solution Use 1 Drop in both eyes daily at bedtime. Meds Comments as of 05/10/2015: Does not take antivert, ibuprofen, aleve. Does take boswelia frankincense and white willow. Hand Molder Meat: Addendum Therapy (PT/OT/Speech/Resp) ID: [id number] 02/09/2025 8:19 AM Author: EDGAR DAVE Signed by EDGAR DAVE PT on 02/09/2025 at 8:19 AM * * * This document replaces document [id number] * * * Document text: Program_ID:[id number] Access Code: [email or web address] URL: [email or web address] Scaled Inference/ Date: 02-09-2025 Prepared By: Edgar Dave Program Notes Exercises - Supine Cervical Retraction with Towel - 2 x daily - 7 x weekly - 2 sets - 10 reps - Seated Scapular Retraction - 2 x daily - 7 x weekly - 2 sets - 10 reps - Seated Upper Trapezius Stretch - 2 x daily - 7 x weekly - sets - 4-5 reps - Gentle Levator Scapulae Stretch - 2 x daily - 7 x weekly - sets - 4-5 reps - Rhomboid/Posterior Neck Stretch - 2 x daily - 7 x weekly - sets - 4-5 reps - Corner Pec Minor Stretch - 2 x daily - 7 x weekly - sets - 4-5 reps Normal [facility] CNPAlise 02-01-2025 CNPN Telephone (KEISHAWS) -- CADY BERUMEN ([id number]) 1945 F Date Time Provider Department 02/01/25 JOSÉ MIGUEL SALDAÑA During your visit today, we recorded the following information about you: Nydia Encarnacion RN 02/01/2025 1:43 PM Signed Patient calling and is asking about lab results. Please review and advise, Nydia Encarnacion, RN Patient states that Dr. Smiths Hiro's office did not receive dermatology referral. Faxed referral, office visit notes, and face sheet to Dr. Yves Bosch's office as requested. José Miguel Saldaña APRN.CNP 02/03/2025 12:58 PM Signed See results follow up. José Miguel Saldaña APRN.CNP Allergies As of Date: 02/01/2025 Noted Allergy Reaction FRAGRANCES 11/28/2014 3 - Cough 12 - Shortness of Breath BENZODIAZEPINES 09/08/2014 1 - Mental Status Change Comments: Pt sees colors and laughing CATS 11/28/2014 9 - Itching 12 - Shortness of Breath Comments: Eventual wheezing DUST MITES 11/28/2014 14 - Other: See Comments Comments: Positive allergy test GRASS POLLEN-DONNA, STANDARD 11/28/2014 9 - Itching Comments: Nasal congestion MOLD 11/28/2014 9 - Itching Comments: Nasal congestion SEASONAL ALLERGIES 11/08/2010 3 - Cough SULFA (SULFONAMIDE ANTIBIOTICS) 06/13/2005 9 - Itching TREES 11/28/2014 9 - Itching Comments: Nasal congestion VALIUM (DIAZEPAM) 09/23/2013 5 - Intolerance Comments: Laughing hysterically, ultra sensitive ZITHROMAX (AZITHROMYCIN) 06/08/2019 14 - Other: See Comments Comments: nausea Date Reviewed: 01/26/2025 Reviewed by: José Miguel Saldaña APRN.CNP - Fully Assessed Reason for Visit: Results [95] Prescriptions as of 02/03/2025 - baclofen 10 mg tablet Take 1 tablet by mouth three times a day as needed (muscle spasms). - furosemide (LASIX) 20 mg tablet Take 20 mg by mouth once daily. - metoprolol tartrate, short acting, (LOPRESSOR) 25 mg tablet Take 12.5 mg by mouth as needed. Takes as needed for rapid HR - timolol maleate (TIMOPTIC) 0.5 % ophthalmic solution Use 1 Drop in both eyes twice daily. - warfarin (COUMADIN) 5 mg tablet Take 1 tablet by mouth daily except 7.5mg on ( [facility]) - Cholecalciferol, Vitamin D3, 50 mcg (2,000 unit) cap Take 2 capsules by mouth once daily. - COQ10, UBIQUINOL, ORAL Take 30 mg by mouth. - latanoprost (XALATAN) 0.005 % ophthalmic solution Use 1 Drop in both eyes daily at bedtime. Meds Comments as of 05/10/2015: Does not take antivert, ibuprofen, aleve. Does take boswelia frankincense and white willow. Problem List As Of Date 02/01/2025 Noted Resolved ALLERGIC RHINITIS NOS [J30.9] 06/19/2004 WOUND (NOT COMPLICATED) - OPEN FINGER(S) [S61.*06/14/2005 10/08/2014 GANGLION JOINT (Mucous cyst left hand 3rd digit*08/07/2005 10/08/2014 GENERAL OSTEOARTHROSIS [M15.9] 11/23/2006 Abdominal pain, unspecified site [R10.9] 11/23/2006 10/08/2014 Lumbago [M54.50] 11/16/2008 10/08/2014 Rectal bleeding [K62.5] 09/06/2010 10/08/2014 Cellulitis [L03.90] 06/24/2013 10/08/2014 Ulcer of ankle ([facility]) [L97.309] 06/24/2013 10/08/2014 Venous stasis ulcer of right ankle limited to b*07/18/2013 06/09/2023 Vitamin D deficiency [E55.9] 09/20/2013 Frequency of urination [R35.0] 03/01/2014 10/08/2014 Urgency of urination [R39.15] 03/01/2014 10/08/2014 Nocturia [R35.1] 03/01/2014 Hesitancy of micturition [R39.11] 03/01/2014 Varicose veins of right lower extremity [I83.91]08/25/2014 BPPV (benign paroxysmal positional vertigo) [H8*10/30/2014 Vertigo of central origin [H81.4] 12/11/2014 Peripheral vertigo, unspecified [H81.399] 12/11/2014 Sprain of sacroiliac joint [S33.6XXA] 11/06/2015 Irritable bowel syndrome with both constipation*11/06/2015 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] 08/14/2017 Varicose veins of left lower extremity with dixon*03/03/2018 Asthma [J45.909] 04/20/2018 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*06/16/2018 Paroxysmal atrial tachycardia (HCC) [I47.19] 11/29/2018 Severe episode of recurrent major depressive di*11/29/2018 Paroxysmal atrial fibrillation (HCC) [I48.0] 02/04/2019 Essential hypertension [I10] SOB (shortness of breath) [R06.02] 12/23/2021 Bilateral carotid artery stenosis [I65.23] 03/21/2024 Encounter Status:Closed by JOSÉ MIGUEL SALDAÑA on 02/03/25 Normal [facility] 25-hydroxyvitamin D3 [Mass/V ol]on 01-27-2025 Interpretation and review of laboratory results Normal [facility] The reference range interval was based on an analysis of samples from healthy adults and may not pertain to children from 0-18 years old. [facility] Comprehensive metabolic 2000 panelon 01-27-2025 Albumin [Mass/Vol] 4.3 g/dL 3.9 - 4.9 g/dL [facility] ALP [Catalytic activity/Vol] 83 U/L 34 - 123 U/L [facility] ALT [Catalytic activity/Vol] 17 U/L 7 - 38 U/L [facility] Anion gap [Moles/Vol] 12 mmol/L 8 - 15 mmol/L [facility] AST [Catalytic activity/Vol] 21 U/L 13 - 35 U/L [facility] Bilirubin [Mass/Vol] 0.4 mg/dL 0.2 - 1 .3 mg/dL [facility] Calcium [Mass/Vol] 9.4 mg/dL 8.5 - 10. 2 mg/dL [facility] Chloride [Moles/Vol] 100 mmol/L 98 - 10 7 mmol/L [facility] CO2 [Moles/Vol] 24 mmol/L 22 - 30 mmol/L [facility] Creatinine [Mass/Vol] 0.76 mg/dL 0.58 - 0.96 mg/dL [facility] GFR/1.73 sq M.predicted among non-blacks MDRD (S/P/Bld) [Vol rate/Area] 80 mL/min/{1.73_m2} - PINF [facility] Comment on above: Estimated Glomerular Filtration Rate (eGFR) is calculated using the 2020 CKD-EPI creatinine equation. This equation utilizes serum creatinine, sex, and age as parameters. The creatinine assay has traceable calibration to isotope dilution-mass spectrometry. Refer to KDIGO guidelines for clinical interpretation. In patients with unstable renal function, e.g. those with acute kidney injury, the eGFR may not accurately reflect actual GFR. Glucose [Mass/Vol] 100 mg/dL High 74 - 99 mg/dL [facility] Comment on above: The [place] Diab[employer] s Association (ADA) provides guidance for cutoff values for fasting glucose and random glucose. The ADA defines fasting as no caloric intake for at least 8 hours. Fasting plasma glucose results between 100 to 125 mg/dL indicate increased risk for diabetes (prediabetes). Fasting plasma glucose results greater than or equal to 126 mg/dL meet the criteria for diagnosis of diabetes. In the absence of unequivocal hyperglycemia, results should be confirmed by repeat testing. In a patient with classic symptoms of hyperglycemia or hyperglycemic crisis, random plasma glucose results greater than or equal to 200 mg/dL meet the criteria for diagnosis of diabetes. Reference: Standards of Medical Care in Diabetes 2016, [place] [employer]. Diabetes Care. 2016.39(Suppl 1). Interpretation and review of laboratory results Abnormal [facility] Potassium [Moles/Vol] 5.2 mmol/L High 3.7 - 5.1 mmol/L [facility] Protein [Mass/Vol] 7.2 g/dL 6.3 - 8.0 g/dL [facility] Sodium [Moles/Vol] 136 mmol/L 136 - 144 mmol/L [facility] Urea nitrogen [Mass/Vol] 24 mg/dL High 7 - 21 mg/dL [facility] No Panel Informationon 01-27 Interpretation and review of laboratory results Normal [facility] T3, FREEon 01-27-2025 Free T3 [Mass/Vol] 2.5 pg/mL 2.3 - 4.1 pg/mL [facility] T4 FREE/FREE THYROXINEon Free T4 [Mass/Vol] 1.1 ng/dL 0.9 - 1.7 ng/dL [facility] THYROID STIMULATING HORMONEo n 01-27-2025 TSH Qn 2.34 m[IU]/L [facility] VITAMIN D 25 HYDROXYon 01-27 25-hydroxyvitamin D3 [Mass/Vol] 38.4 ng/mL 31.0 - 80.0 ng/mL [facility] Comment on above: Classification of 25 [place] Vitamin D status: Deficiency/Insufficiency: < or = 30 ng/ml. Sufficiency/Optimal Levels: 31-80 ng/mL Toxicity: > 100 ng/mL. Test performed by chemiluminescent immunoassay. 25(OH)D3 Jose 2024 25-hydroxyvitamin D3 [Mass/Vol] 38.4 ng/mL Normal 31.0-80.0 [facility] Comment on above: Order Comment: Speci men Type: BLOOD SPECIMENOrdering Facility: [facility] Address: [address] [place] [address] Result Comment: Clas sification of 25 [place] Vitamin D status: Deficiency/Insufficiency: < or = 30 ng/ml. Sufficiency/Optimal Levels: 31-80 ng/mL Toxicity: > 100 ng/mL. Test performed by chemiluminescent immunoassay. Performed By: #### 1 989-3 ####[facility] LABCLIA [id number] [place] [address] [place] CBC W Auto Differential pane l (Bld)on 01-26-2025 Basophils (Bld) [#/Vol] 0.07 10*3/uL [facility] Basophils/100 WBC (Bld) 1.1 % [facility] Differential cell count method Nom (Bld) Auto [facility] Eosinophils (Bld) [#/Vol] 0.13 10*3/uL [facility] Eosinophils/100 WBC (Bld) 2.1 % [facility] Erythrocyte distribution width (RBC) [Ratio] 13.5 % 11.5 - 15.0 % [facility] Hematocrit (Bld) [Volume fraction] 39 % 36.0 - 46.0 % [facility] Hemoglobin (Bld) [Mass/Vol] 12.5 g/dL 11.5 - 15.5 g/dL [facility] Immature granulocytes (Bld) [#/Vol] NINF [facility] Immature granulocytes/100 WBC (Bld) 0.3 % [facility] Interpretation and review of laboratory results Abnormal [facility] Lymphocytes (Bld) [#/Vol] 1.58 10*3/uL [facility] Lymphocytes/100 WBC (Bld) 25.5 % [facility] MCH (RBC) [Entitic mass] 32 pg 26.0 - 34.0 pg [facility] MCHC (RBC) [Mass/Vol] 32.1 g/dL 30.5 - 36.0 g/dL [facility] MCV (RBC) [Entitic vol] 99.7 fL 80.0 - 100.0 fL [facility] Monocytes (Bld) [#/Vol] 0.72 10*3/uL [facility] Monocytes/100 WBC (Bld) 11.6 % [facility] Neutrophils (Bld) [#/Vol] 3.67 10*3/uL [facility] Neutrophils/100 WBC (Bld) 59.4 % [facility] Nucleated RBC (Bld) [#/Vol] NINF [facility] Nucleated RBC/100 WBC (Bld) [Ratio] 0 % /100 WBC [facility] Platelet mean volume (Bld) [Entitic vol] 13.4 fL High 9.0 - 12.7 fL [facility] Platelets (Bld) [#/Vol] 182 10*3/uL [facility] RBC (Bld) [#/Vol] 3.91 10*6/uL 3.90 - 5.20 m/uL [facility] WBC (Bld) [#/Vol] 6.19 10*3/uL [facility] Basophils (Bld) [#/Vol] 0.07 10*3/uL Normal <0.11 [facility] Comment on above: Order Comment: Speci men Type: BLOOD SPECIMENOrdering Facility: [facility] Address: [address] [place] [address] Performed By: #### 5 7021-8 ####[facility] LABCLIA [id number] [place] [address] [place] Basophils/100 WBC (Bld) 1.1 % Normal [facility] Comment on above: Order Comment: Speci men Type: BLOOD SPECIMENOrdering Facility: [facility] Address: [address] [place] [address] Performed By: #### 5 7021-8 ####[facility] LABCLIA [id number] [place] [address] [place] Differential cell count method Nom (Bld) Auto Normal [facility] Comment on above: Order Comment: Speci men Type: BLOOD SPECIMENOrdering Facility: [facility] Address: [address] [place] [address] Performed By: #### 5 7021-8 ####[facility] LABCLIA [id number] [address], [place] [address] [place] Eosinophils (Bld) [#/Vol] 0.13 10*3/uL Normal <0.46 [facility] Comment on above: Order Comment: Speci men Type: BLOOD SPECIMENOrdering Facility: [facility] Address: [address] [place] [address] Performed By: #### 5 7021-8 ####[facility] LABCLIA [id number] [address], [place] [address] [place] Eosinophils/100 WBC (Bld) 2.1 % Normal [facility] Comment on above: Order Comment: Speci men Type: BLOOD SPECIMENOrdering Facility: [facility] Address: [address] [place] [address] Performed By: #### 5 7021-8 ####[facility] LABCLIA [id number] [address] [place] Erythrocyte distribution width (RBC) [Ratio] 13.5 % Normal 11.5-15.0 [facility] Comment on above: Order Comment: Speci men Type: BLOOD SPECIMENOrdering Facility: [facility] Address: [address] [place] [address] Performed By: #### 5 7021-8 ####[facility] LABCLIA [id number] [address] [place] Hematocrit (Bld) [Volume fraction] 39.0 % Normal 36.0-46.0 [facility] Comment on above: Order Comment: Speci men Type: BLOOD SPECIMENOrdering Facility: [facility] Address: [address] [place] [address] Performed By: #### 5 7021-8 ####[facility] LABCLIA [id number] [address], [place] [address] [place] Hemoglobin (Bld) [Mass/Vol] 12.5 g/dL Normal 11.5-15.5 [facility] Comment on above: Order Comment: Speci men Type: BLOOD SPECIMENOrdering Facility: [facility] Address: [address] [place] [address] Performed By: #### 5 7021-8 ####[facility] LABCLIA [id number] [address], [place] [address] [place] Immature granulocytes (Bld) [#/Vol] 10*3/uL Normal <0.10 [facility] Comment on above: Order Comment: Speci men Type: BLOOD SPECIMENOrdering Facility: [facility] Address: [address] [place] [address] Performed By: #### 5 7021-8 ####[facility] LABCLIA [id number] [address], [place] [address] [place] Immature granulocytes/100 WBC (Bld) 0.3 % Normal [facility] Comment on above: Order Comment: Speci men Type: BLOOD SPECIMENOrdering Facility: [facility] Address: [address] [place] [address] Performed By: #### 5 7021-8 ####[facility] LABCLIA [id number] [place] [id number] [place] Lymphocytes (Bld) [#/Vol] 1.58 10*3/uL Normal 1.00-4.00 [facility] Comment on above: Order Comment: Speci men Type: BLOOD SPECIMENOrdering Facility: [facility] Address: [address] [place] [address] Performed By: #### 5 7021-8 ####[facility] LABCLIA [id number] [place] [id number] [place] Lymphocytes/100 WBC (Bld) 25.5 % Normal [facility] Comment on above: Order Comment: Speci men Type: BLOOD SPECIMENOrdering Facility: [facility] Address: [address] [place] [address] Performed By: #### 5 7021-8 ####[facility] LABIA [id number] [place] [address] [place] MCH (RBC) [Entitic mass] 32.0 pg Normal 26.0-34.0 [facility] Comment on above: Order Comment: Speci men Type: BLOOD SPECIMENOrdering Facility: [facility] Address: [address] [place] [address] Performed By: #### 5 7021-8 ####[facility] LABIA [id number] [place] [address] [place] MCHC (RBC) [Mass/Vol] 32.1 g/dL Normal 30.5-36.0 [facility] Comment on above: Order Comment: Speci men Type: BLOOD SPECIMENOrdering Facility: [facility] Address: [address] [place] [address] Performed By: #### 5 7021-8 ####[facility] [id number] [place] [address] [place] MCV (RBC) [Entitic vol] 99.7 fL Normal 80.0-100.0 [facility] Comment on above: Order Comment: Speci men Type: BLOOD SPECIMENOrdering Facility: [facility] Address: [address] [place] [address] Performed By: #### 5 7021-8 ####[facility] LABIA [id number] [place] [address] [place] Monocytes (Bld) [#/Vol] 0.72 10*3/uL Normal <0.87 [facility] Comment on above: Order Comment: Speci men Type: BLOOD SPECIMENOrdering Facility: [facility] Address: [address] [place] [address] Performed By: #### 5 7021-8 ####[facility] LABCLIA [id number] [place] [address] [place] Monocytes/100 WBC (Bld) 11.6 % Normal [facility] Comment on above: Order Comment: Speci men Type: BLOOD SPECIMENOrdering Facility: [facility] Address: [address] [place] [address] Performed By: #### 5 7021-8 ####[facility] LABCLIA [id number] [place] [address] [place] Neutrophils (Bld) [#/Vol] 3.67 10*3/uL Normal 1.45-7.50 [facility] Comment on above: Order Comment: Speci men Type: BLOOD SPECIMENOrdering Facility: [facility] Address: [address] [place] [address] Performed By: #### 5 7021-8 ####[facility] LABCLIA [id number] [place] [address] [place] Neutrophils/100 WBC (Bld) 59.4 % Normal [facility] Comment on above: Order Comment: Speci men Type: BLOOD SPECIMENOrdering Facility: [facility] Address: [address] [place] [address] Performed By: #### 5 7021-8 ####[facility] LABCLIA [id number] [place] [id number] [place] Nucleated RBC (Bld) [#/Vol] 10*3/uL Normal <0.01 [facility] Comment on above: Order Comment: Speci men Type: BLOOD SPECIMENOrdering Facility: [facility] Address: [address] [place] [address] Performed By: #### 5 7021-8 ####[facility] LABCLIA [id number] [place] [id number] [place] Nucleated RBC/100 WBC (Bld) [Ratio] 0.0 /100 WBC Normal [facility] Comment on above: Order Comment: Speci men Type: BLOOD SPECIMENOrdering Facility: [facility] Address: [address] [place] [address] Performed By: #### 5 7021-8 ####[facility] LABCLIA [id number] [place] [id number] [place] Platelet mean volume (Bld) [Entitic vol] 13.4 fL High 9.0-12.7 [facility] Comment on above: Order Comment: Speci men Type: BLOOD SPECIMENOrdering Facility: [facility] Address: [address] [place] [address] Performed By: #### 5 7021-8 ####[facility] LABCLIA [id number] [place] [address] [place] Platelets (Bld) [#/Vol] 182 10*3/uL Normal 150-400 [facility] Comment on above: Order Comment: Speci men Type: BLOOD SPECIMENOrdering Facility: [facility] Address: [address] [place] [address] Performed By: #### 5 7021-8 ####[facility] LABCLIA [id number] [place] [address] [place] RBC (Bld) [#/Vol] 3.91 10*6/uL Normal 3.90-5.20 [facility] Comment on above: Order Comment: Speci men Type: BLOOD SPECIMENOrdering Facility: [facility] Address: [address] [place] [address] Performed By: #### 5 7021-8 ####[facility] LABCLIA [id number] [place] [id number] [place] WBC (Bld) [#/Vol] 6.19 10*3/uL Normal 3.70-11.00 [facility] Comment on above: Order Comment: Speci men Type: BLOOD SPECIMENOrdering Facility: [facility] Address: [address] [place] [address] Performed By: #### 5 7021-8 ####[facility] LABCLIA [id number] FRIEDA CASTRO [id number] [place], [place] [id number] [facility] CNOVon 01-26-2025 CNOV Office Visit (INTMWS ) -- SKEIN YARN DRIERJUAN ROJASS Tricia ([id number]) 1945 F Date Time Provider Department 01/26/25 11:20 AM JOSÉ MIGUEL SALDAÑA During your visit today, we recorded the following information about you: Pulse Blood pressure Weight 57/minute 112/68 76.2 kg José Miguel Saldaña APRN.FILE SYSTEM INSTALLER 01/27/2025 4:00 PM Signed CC: Patient presents with: Derm Problem: Spot on right forearm that is changing wants to have checked. 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 Also with many multiple other concerns. Has had spot to her right forearm for the past 5-6 months. Noticed a few weeks ago it was raised and then over the last few days it is a new color. Denies pain, itchiness, bleeding, or personal history of skin cancer. Family history of skin cancer. Kind unknown. Still gaining weight even with walking daily and staying active with gardening and going other yard work. Is having a lot of fatigue. Chronic neck and upper shoulder pain, would like a consult order to try dry needling as she has tried accupuncter in the past. Has been going to the chiropractor and being told she is out of alignment. REVIEW OF SYSTEMS General: no fevers, no chills, no night sweats, no recurrent infections, no change in appetite, no change in energy, and no significant changes in weight Respiratory: no cough, no wheezing, no shortness of breath, no hemoptysis Cardiovascular: no chest pain, no chest pressure, no palpitations, and no swelling Endocrine: no cold intolerance, no heat intolerance, no polyuria, no polyphagia, and no polydipsia Neurologic: No headache, weakness, numbness, dizziness, memory loss, syncope. PAST MEDICAL HISTORY Diagnosis Date A-fib (HCC) February 2021 Asthma (HCC) Atrial tachycardia (HCC) 10/14/2018 BPPV (benign paroxysmal positional vertigo) 10/30/2014 Degenerative disc disease 08/10/2014 Mild Degenerative disc disease C6-C7 Mild Anterolisthesis C7-T-1`- See scanned document Essential hypertension, benign Fibromyalgia Glaucoma, open angle Hypothyroidism 10/14/2018 Varicose veins 08/25/2014 Varicose veins of other sites Venous stasis ulcer of ankle 07/18/2013 Vestibular neuronitis Vitamin D deficiency 09/20/2013 PAST SURGICAL HISTORY Procedure Laterality Date ARTHRP TEMPOROMANDIBULAR JOINT W/WO AUTOGRAFT 1987 CATARACT SURGERY, COMPLEX 2005 Rt AND Lt COLONOSCOPY FLX DX W/COLLJ SPEC WHEN PFRMD 11/08/2010 Colonoscopy COLONOSCOPY FLX DX W/COLLJ SPEC WHEN PFRMD 08/23/2019 [facility] Cebul repeat is not recommended NEUROPLASTY AND/TRANSPOS MEDIAN NRV CARPAL TUNNE 1990 Carpal tunnel decomp-bilateral PAST SURGICAL HISTORY OF 08-21-05 EXCISION CYST LEFT MIDDLE FINGER PAST SURGICAL HISTORY OF right foot surgery- mortons neuroma PAST SURGICAL HISTORY OF 2013 left foot vein ablation TONSILLECTOMY PRIMARY/SECONDARY AGE 12/> 1962 ALLERGIES Fragrances; Benzodiazepines; Cats; Dust Mites; Grass Pollen-Donna, Standard; Mold; Seasonal Allergies; Sulfa (Sulfonamide Antibiotics); Trees; Valium [Diazepam]; and Zithromax [Azithromycin] MEDICATIONS baclofen 10 mg tablet Take 1 tablet by mouth three times a day as needed (muscle spasms). metoprolol tartrate, short acting, (LOPRESSOR) 25 mg tablet Take 12.5 mg by mouth as needed. Takes as needed for rapid HR timolol maleate (TIMOPTIC) 0.5 % ophthalmic solution Use 1 Drop in both eyes twice daily. warfarin (COUMADIN) 5 mg tablet Take 1 tablet by mouth daily except 7.5mg on ( [facility]) Cholecalciferol, Vitamin D3, 50 mcg (2,000 unit) cap Take 2 capsules by mouth once daily. COQ10, UBIQUINOL, ORAL Take 30 mg by mouth. latanoprost (XALATAN) 0.005 % ophthalmic solution Use 1 Drop in both eyes daily at bedtime. furosemide (LASIX) 20 mg tablet Take 20 mg by mouth once daily. (Patient not taking: Reported on 01/17/2025) FAMILY HISTORY Problem Relation Age of Onset Heart Father Allergies Sister Breast Cancer Sister age of 50's with diagnosis Prostate Cancer Brother Social History Tobacco Use Smoking status: Never Smokeless tobacco: Never Vaping Use Vaping status: Never Used Substance Use Topics Alcohol use: Not Currently Drug use: No PHYSICAL EXAM BP 112/68 Pulse (!) 57 Wt 76.2 kg (168 lb) SpO2 95% BMI 28.84 kg/m? General Appearance: well appearing, in no acute distress, alert Skin: right forearm with light brown oblong flat skin lesion with two dark brown rough lesions on top that also appear circular and have a "stuck on" feel Eyes: conjunctiva pink and moist, no icterus, sclera white, non-injected Neck: Thyroid normal size and symmetric without palpable nodules, Neck supple, No adenopathy, tenderness to bilateral lateralis muscles and traps. Lymph nodes: No cervical lymphadenopathy and No supraclavicular lymphadenopathy Lungs: Lungs clear t (more content not included)... Normal [facility] Cobalamin (Vitamin B12) [Mas s/Vol]on 01-26-2025 Interpretation and review of laboratory results Normal [facility] Comprehensive metabolic 2000 panelon 01-26-2025 Albumin [Mass/Vol] 4.3 g/dL Normal 3.9-4.9 [facility] Comment on above: Order Comment: Speci men Type: BLOOD SPECIMENOrdering Facility: [facility] Address: [address] [place] [address] Performed By: #### 3 016-3, 5994-7, 10142-9, 3051-0 ####[facility] LABCLIA [id number] [place] [address] [place] ALP [Catalytic activity/Vol] 83 U/L Normal 34-123 [facility] Comment on above: Order Comment: Speci men Type: BLOOD SPECIMENOrdering Facility: [facility] Address: [address] [place], [place] [address] Performed By: #### 3 016-3, 3024-7, 21432-6, 305-0 ####[facility] LABCLIA [id number] [address] [address] [place] ALT [Catalytic activity/Vol] 17 U/L Normal 7-38 [facility] Comment on above: Order Comment: Speci men Type: BLOOD SPECIMENOrdering Facility: [facility] Address: [address] [place] [address] Performed By: #### 3 016-3, 3024-7, 93925-7, 305-0 ####[facility] LABCLIA [id number] [address] [address] [place] Anion gap [Moles/Vol] 12 mmol/L Normal 8-15 [facility] Comment on above: Order Comment: Speci men Type: BLOOD SPECIMENOrdering Facility: [facility] Address: [address] [place] [address] Performed By: #### 3 016-3, 3023-7, 19257-4, 305-0 ####[facility] LABCLIA [id number] [address] [address] [place] AST [Catalytic activity/Vol] 21 U/L Normal 13-35 [facility] Comment on above: Order Comment: Speci men Type: BLOOD SPECIMENOrdering Facility: [facility] Address: [address] [place], [place] [address] Performed By: #### 3 016-3, 3024-7, 50381-5, 305-0 ####[facility] LABCLIA [id number] [address] [address] [place] Bilirubin [Mass/Vol] 0.4 mg/dL Normal 0.2-1.3 [facility] Comment on above: Order Comment: Speci men Type: BLOOD SPECIMENOrdering Facility: [facility] Address: [address] [place], [place] [address] Performed By: #### 3 016-3, 3024-7, 76255-4, 305-0 ####[facility] LABCLIA [id number] [address] [address] [place] Calcium [Mass/Vol] 9.4 mg/dL Normal 8.5-10.2 [facility] Comment on above: Order Comment: Speci men Type: BLOOD SPECIMENOrdering Facility: [facility] Address: [address] [place], [place] [address] Performed By: #### 3 016-3, 3024-7, 39527-5, 305-0 ####[facility] LABIA [id number] [address] [address] [place] Chloride [Moles/Vol] 100 mmol/L Normal 98-107 [facility] Comment on above: Order Comment: Speci men Type: BLOOD SPECIMENOrdering Facility: [facility] Address: [address] [place], [place] [address] Performed By: #### 3 016-3, 3024-7, 15860-6, 3050-0 ####[facility] LABIA [id number] [address] [address] [place] CO2 [Moles/Vol] 24 mmol/L Normal 22-30 [facility] Comment on above: Order Comment: Speci men Type: BLOOD SPECIMENOrdering Facility: [facility] Address: [address] [place], [place] [address] Performed By: #### 3 016-3, 3024-7, 32125-6, 305-0 ####[facility] LABIA [id number] [address] [address] [place] Creatinine [Mass/Vol] 0.76 mg/dL Normal 0.58-0.96 [facility] Comment on above: Order Comment: Speci men Type: BLOOD SPECIMENOrdering Facility: [facility] Address: [address] [place] [address] Performed By: #### 3 016-3, 3024-7, 92540-4, 3051-0 ####[facility] LABIA [id number] [address] [address] [place] Creatinine and Glomerular filtration rate.predicted panel (S/P/Bld) 80 mL/min/1.73m??? Normal >=60 [facility] Comment on above: Order Comment: Pauli men Type: BLOOD SPECIMENOrdering Facility: [facility] Address: [address] [place] [address] Result Comment: Amanda mated Glomerular Filtration Rate (eGFR) is calculated using the 2020 CKD-EPI creatinine equation. This equation utilizes serum creatinine, sex, and age as parameters. The creatinine assay has traceable calibration to isotope dilution-mass spectrometry. Refer to KDIGO guidelines for clinical interpretation. In patients with unstable renal function, e.g. those with acute kidney injury, the eGFR may not accurately reflect actual GFR. Performed By: #### 3 016-3, 3024-7, 38390-9, 3051-0 ####[facility] LABCLIA [id number] [address] [address] [place] Glucose [Mass/Vol] 100 mg/dL High 74-99 [facility] Comment on above: Order Comment: Iris dean Type: BLOOD SPECIMENOrdering Facility: [facility] Address: [address] [place] [address] Result Comment: The [place] Diabetes [employer] (ADA) provides guidance for cutoff values for fasting glucose and random glucose. The ADA defines fasting as no caloric intake for at least 8 hours. Fasting plasma glucose results between 100 to 125 mg/dL indicate increased risk for diabetes (prediabetes). Fasting plasma glucose results greater than or equal to 126 mg/dL meet the criteria for diagnosis of diabetes. In the absence of unequivocal hyperglycemia, results should be confirmed by repeat testing. In a patient with classic symptoms of hyperglycemia or hyperglycemic crisis, random plasma glucose results greater than or equal to 200 mg/dL meet the criteria for diagnosis of diabetes. Reference: Standards of Medical Care in Diabetes 2016, [place] [employer]. Diabetes Care. 2016.39(Suppl 1). Performed By: #### 3 016-3, 3024-7, 76225-0, 305-0 ####[facility] LABCLIA [id number] [address] [address] [place] Potassium [Moles/Vol] 5.2 mmol/L High 3.7-5.1 [facility] Comment on above: Order Comment: Speci men Type: BLOOD SPECIMENOrdering Facility: [facility] Address: [address] [place] [address] Performed By: #### 3 016-3, 3023-7, 34239-2, 3050-0 ####[facility] LABIA [id number] [address] [address] [place] Protein [Mass/Vol] 7.2 g/dL Normal 6.3-8.0 [facility] Comment on above: Order Comment: Speci men Type: BLOOD SPECIMENOrdering Facility: [facility] Address: [address] [place] [address] Performed By: #### 3 016-3, 3023-7, 24539-2, 3050-0 ####[facility] LABIA [id number] [address] [address] [place] Sodium [Moles/Vol] 136 mmol/L Normal 136-144 [facility] Comment on above: Order Comment: Speci men Type: BLOOD SPECIMENOrdering Facility: [facility] Address: [address] [place], [place] [address] Performed By: #### 3 016-3, 3024-7, 39440-4, 305-0 ####[facility] LABCLIA [id number] [address] [address] [place] Urea nitrogen [Mass/Vol] 24 mg/dL High 7-21 [facility] Comment on above: Order Comment: Speci men Type: BLOOD SPECIMENOrdering Facility: [facility] Address: [address] [place] [address] Performed By: #### 3 016-3, 302-7, 14689-6, 3051-0 ####[facility] LABCLIA [id number] [address] [place] [address] [place] T3Free SerPl-mCncon 01-27-20 25 Free T3 [Mass/Vol] 2.5 pg/mL Normal 2.3-4.1 [facility] Comment on above: Order Comment: Speci men Type: BLOOD SPECIMENOrdering Facility: [facility] Address: [address] [place] [address] Performed By: #### 3 016-3, 3027, 75836-9, 3051-0 ####[facility] LABCLIA [id number] [address], [place] [address] [place] T4 Free SerPl-mCncon 025 Free T4 [Mass/Vol] 1.1 ng/dL Normal 0.9-1.7 [facility] Comment on above: Order Comment: Speci men Type: BLOOD SPECIMENOrdering Facility: [facility] Address: [address] [place] [address] Performed By: #### 3 016-3, 302-7, 96201-8, 3051-0 ####[facility] LABCLIA [id number] [address], [facility] [place] TSH SerPl-aCncon 01-26-2025 TSH Qn 2.340 m[IU]/L Normal 0.270-4.20 0 [facility] Comment on above: Order Comment: Speci men Type: BLOOD SPECIMENOrdering Facility: [facility] Address: [address] [place] [address] Performed By: #### 3 016-3, 3024-7, 58936-8, 3051-0 ####[facility] LABCLIA [id number] [address] [facility] VITAMIN B12on 01-26-2025 Cobalamin (Vitamin B12) [Mass/Vol] 797 pg/mL 232 - 1245 pg/mL [facility] Vit B12 SerPl-mCncon 025 Cobalamin (Vitamin B12) [Mass/Vol] 797 pg/mL Normal 232-1245 [facility] Comment on above: Order Comment: Speci men Type: BLOOD SPECIMENOrdering Facility: [facility] Address: [address] [place] [address] Performed By: #### 2 132-9 ####[facility] LABCLIA [id number] [facility]Phil [facility] LODGEDESK [address] CNOVon 01-17-2025 CNOV Office Visit (VASSWS ) -- CADY BERUMEN Tricia ([id number]) 1945 F Date Time Provider Department 01/17/25 2:30 PM ALEC ARTHUR VASSWS During your visit today, we recorded the following information about you: Pulse Blood pressure 56/minute 126/55 Alec Arthur DO 02/16/2025 4:49 PM Signed [facility] [place] DEPARTMENT OF VASCULAR SURGERY OUTPATIENT VISIT DATE January 17, 2025 OUTPATIENT VISIT TYPE ESTABLISHED SERVICE DATE: 01/17/2025 SERVICE TIME: 3:06 PM PRIMARY CARE PHYSICIAN: Moon Teixeira MD HISTORY OF PRESENT ILLNESS: Ms. Berumen is a 79 year old female who presents today for a vascular surgery follow-up visit for venous insufficiency and symptomatic varicose veins. She has noticed hand pain and numbness. She also notices that her right 5th toe is white while the remainder of foot will turn purple. She has atrial fibrillation and is scheduled for ablation in the summer. PAST MEDICAL HISTORY Diagnosis Date A-fib (HCC) February 2021 Asthma Atrial tachycardia (HCC) 10/14/2018 BPPV (benign paroxysmal positional vertigo) 10/30/2014 Degenerative disc disease 08/10/2014 Mild Degenerative disc disease C6-C7 Mild Anterolisthesis C7-T-1`- See scanned document Essential hypertension, benign Fibromyalgia Glaucoma, open angle Hypothyroidism 10/14/2018 Varicose veins 08/25/2014 Varicose veins of other sites Venous stasis ulcer of ankle 07/18/2013 Vestibular neuronitis Vitamin D deficiency 09/20/2013 PAST SURGICAL HISTORY Procedure Laterality Date ARTHRP TEMPOROMANDIBULAR JOINT W/WO AUTOGRAFT 1988 CATARACT SURGERY, COMPLEX 2005 Rt AND Lt COLONOSCOPY FLX DX W/COLLJ SPEC WHEN PFRMD 11/08/2010 Colonoscopy COLONOSCOPY FLX DX W/COLLJ SPEC WHEN PFRMD 08/23/2019 [facility] Cebul repeat is not recommended NEUROPLASTY AND/TRANSPOS MEDIAN NRV CARPAL TUNNE 1990 Carpal tunnel decomp-bilateral PAST SURGICAL HISTORY OF 08-21-05 EXCISION CYST LEFT MIDDLE FINGER PAST SURGICAL HISTORY OF right foot surgery- mortons neuroma PAST SURGICAL HISTORY OF 2013 left foot vein ablation TONSILLECTOMY PRIMARY/SECONDARY AGE 12/> 1962 SOCIAL HISTORY Social History Tobacco Use Smoking status: Never Smokeless tobacco: Never Vaping Use Vaping status: Never Used Substance Use Topics Alcohol use: Not Currently Drug use: No MEDICATIONS: baclofen 10 mg tablet Take 1 tablet by mouth three times a day as needed (muscle spasms). metoprolol tartrate, short acting, (LOPRESSOR) 25 mg tablet Take 12.5 mg by mouth as needed. Takes as needed for rapid HR timolol maleate (TIMOPTIC) 0.5 % ophthalmic solution Use 1 Drop in both eyes twice daily. warfarin (COUMADIN) 5 mg tablet Take 1 tablet by mouth daily except 7.5mg on ( [facility]) Cholecalciferol, Vitamin D3, 50 mcg (2,000 unit) cap Take 2 capsules by mouth once daily. COQ10, UBIQUINOL, ORAL Take 30 mg by mouth. latanoprost (XALATAN) 0.005 % ophthalmic solution Use 1 Drop in both eyes daily at bedtime. furosemide (LASIX) 20 mg tablet Take 20 mg by mouth once daily. (Patient not taking: Reported on 01/17/2025) ALLERGIES: ALLERGIES Allergen Reactions Fragrances Cough, Shortness of Breath Benzodiazepines Mental Status Change Pt sees colors and laughing Cats Itching, Shortness of Breath Eventual wheezing Dust Mites Other: See Comments Positive allergy test Grass Pollen-Timoth* Itching Nasal congestion Mold Itching Nasal congestion Seasonal Allergies Cough Sulfa (Sulfonamide * Itching Trees Itching Nasal congestion Valium [Diazepam] Intolerance Laughing hysterically, ultra sensitive Zithromax [Azithrom* Other: See Comments nausea PHYSICAL EXAM: BP 126/55 (BP Site: Left Arm, BP Position: Sitting, BP Cuff Size: Large Adult) Pulse (!) 56 SpO2 96% Gen- no distress Ext- palpable dp, bilateral lower extremity extensive 3-D spider veins and varicose veins Diagnostic tests reviewed for today's visit: Most recent labs Most recent imaging IMPRESSION: Ms. Berumen is a 79 year old female with venous insufficiency, varicose veins . PLAN and RECOMMENDATIONS: Reviewed PVRs from 2022. She should be able to heal toe nail procedure Continue compression, elevation, and walking Follow up as needed SIGNATURE: Alec Arthur DO PATIENT NAME: Cady Berumen DATE: January 17, 2025 TIME: 3:06 PM Allergies As of Date: 01/17/2025 Noted Allergy Reaction FRAGRANCES 11/28/2014 3 - Cough 12 - Shortness of Breath BENZODIAZEPINES 09/08/2014 1 - Mental Status Change Comments: Pt sees colors and laughing CATS 11/28/2014 9 - Itching 12 - Shortness of Breath Comments: Eventual wheezing DUST MITES 11/28/2014 14 - Other: See Comments Comments: Positive allergy test GRASS POLLEN-DONNA, STANDARD 11/28/2014 9 - Itching Comments: Nasal congestion MOLD 0 (more content not included)... Normal [facility] CNCOon 01-05-2025 CNCO Letter Text Normal [facility] International normalized rat io (INR) measurement by fingerstickOrdered By: Bart Rosales on 01-05-2025 INR Coag (BldC) [Relative time] 3.1 [facility] Comment on above: Critical Value > 4.0 Protime w/INR Fingerstickon 01-05-2025 INR Coag (PPP) [Relative time] 3.1 {INR} Normal [facility] Comment on above: Result Comment: Crit ical Value > 4.0 Performed By: #### L 501.5200, L500.2500, L501.9520, L100.0100 #### [facility] [address] [place], [address] Protime Coagsen 32.4 SEC High 11.7-14.9 [facility] Comment on above: Performed By: #### L 501.5200, L500.2500, L501.9520, L100.0100 #### [facility] [address] [place], [address] Whole blood prothrombin time Ordered By: Bart Rosales on 01-05-2025 PT Coag (Bld) [Time] 32.4 s High 11.7-14.9 [facility] CNOVon 12-30-2024 CNOV Office Visit (CARDMN ) -- FLORIDACADY Tricia ([id number]) 1945 F Date Time Provider Department 12/30/24 12:45 PM MARIA DE JESUS DESOUZAMN During your visit today, we recorded the following information about you: Pulse Blood pressure Weight Height 51/minute 141/57 75.8 kg 1.626 m Maria De Jesus Desouza APRN.FILE SYSTEM INSTALLER 12/30/2024 1:58 PM Signed [facility] [place] Annette Velasquez Department of Cardiovascular Medicine SECTION OF CARDIAC PACING and ELECTROPHYSIOLOGY OUTPATIENT VISIT DATE December 30, 2024 OUTPATIENT VISIT TYPE ESTABLISHED PRIMARY CARE PHYSICIAN: Moon Teixeira [address] [place] [address] CHIEF COMPLAINT: No chief complaint on file. HISTORY OF PRESENT ILLNESS: Ms. Berumen is a 79 year old female who presents today for follow-up visit for atrial fibrillation. Established with Dr. Shirley, seen last in 2022. PMH of of paroxysmal atrial fibrillation, atrial tachycardia, and hypertension. She has a history of asthma from childhood. She was diagnosed with paroxysmal atrial fibrillation in 02/2021 via Holter monitor and has been treated with warfarin for stroke prophylaxis. She cannot tolerate rate-controlling medications and takes metoprolol on an as-needed basis only. She had an ED visit in September for atrial fibrillation with RVR at 110 bpm, which spontaneously converted to normal sinus rhythm. She also had an ED visit on 10/24/2024 for atrial flutter, which also spontaneously converted to normal sinus rhythm. An echocardiogram on 11/11/2024 showed an LVEF of 70%, stage 1 diastolic dysfunction, no regional wall motion abnormalities, and no valvular disease The patient reports an increase in palpitations, dyspnea, and extreme fatigue, which she attributes to frequent episodes of atrial fibrillation. She experiences a sensation of throat tightness during these episodes and notes that her heart rate exceeds 70 bpm. She describes a recent episode where her heart rate reached 137 bpm. She denies any chest pain, lightheadedness, or dizziness. She has not experienced any further syncope since the placement of her ILR on 12/01/2022. She reports that her blood pressure fluctuates significantly. She is currently taking warfarin and metoprolol as needed. She reports that her symptoms are affecting her quality of life. She describes an incident where she felt unable to continue walking due to dyspnea and fatigue. She reports significant stress due to financial issues and caregiving responsibilities for her daughter, which she believes may contribute to the increase in her atrial fibrillation episodes. PAST CARDIAC HISTORY: PAST MEDICAL HISTORY Diagnosis Date A-fib (HCC) February 2021 Asthma Atrial tachycardia (HCC) 10/14/2018 BPPV (benign paroxysmal positional vertigo) 10/30/2014 Degenerative disc disease 08/10/2014 Mild Degenerative disc disease C6-C7 Mild Anterolisthesis C7-T-1`- See scanned document Essential hypertension, benign Fibromyalgia Glaucoma, open angle Hypothyroidism 10/14/2018 Varicose veins 08/25/2014 Varicose veins of other sites Venous stasis ulcer of ankle 07/18/2013 Vestibular neuronitis Vitamin D deficiency 09/20/2013 PAST SURGICAL HISTORY Procedure Laterality Date ARTHRP TEMPOROMANDIBULAR JOINT W/WO AUTOGRAFT 1988 CATARACT SURGERY, COMPLEX 2006 Rt AND Lt COLONOSCOPY FLX DX W/COLLJ SPEC WHEN PFRMD 11/08/2010 Colonoscopy COLONOSCOPY FLX DX W/COLLJ SPEC WHEN PFRMD 08/23/2019 [facility] Cebul repeat is not recommended NEUROPLASTY AND/TRANSPOS MEDIAN NRV CARPAL TUNNE 1990 Carpal tunnel decomp-bilateral PAST SURGICAL HISTORY OF 08-21-05 EXCISION CYST LEFT MIDDLE FINGER PAST SURGICAL HISTORY OF right foot surgery- mortons neuroma PAST SURGICAL HISTORY OF 2013 left foot vein ablation TONSILLECTOMY PRIMARY/SECONDARY AGE 12/> 1962 SOCIAL HISTORY Social History Tobacco Use Smoking status: Never Smokeless tobacco: Never Vaping Use Vaping status: Never Used Substance Use Topics Alcohol use: Not Currently Drug use: No FAMILY HISTORY Problem Relation Age of Onset Heart Father Allergies Sister Breast Cancer Sister age of 50's with diagnosis Prostate Cancer Brother ALLERGIES: ALLERGIES Allergen Reactions Fragrances Cough, Shortness of Breath Benzodiazepines Mental Status Change Pt sees colors and laughing Cats Itching, Shortness of Breath Eventual wheezing Dust Mites Other: See Comments Positive allergy test Grass Pollen-Timoth* Itching Nasal congestion Mold Itching Nasal congestion Seasonal Allergies Cough Sulfa (Sulfonamide * Itching Trees Itching Nasal congestion Valium [Diazepam] Intolerance Laughing hysterically, ultra sensitive Zithromax [Azithrom* Other: See Comments nausea MEDICATIONS: baclofen 10 mg tablet Take 1 tablet by mout (more content not included)... Normal [facility] ECG COMPLETEon 12-30-2024 ECG COMPLETE Ventricular Rate : 5 3 BPM Atrial Rate : 53 BPM P-R Interval : 194 ms QRS Duration : 90 ms Q-T Interval : 420 ms QTC Calculation(Bazett) : 394 ms Calculated P Clyman : 68 degrees Calculated R Clyman : -10 degrees Calculated T Clyman : 64 degrees SINUS BRADYCARDIA OTHERWISE NORMAL ECG Confirmed by NERI WILDE MD ([id number]) on 01/26/2025 7:39:56 PM NAME : CADY BERUMEN PID : [id number] : 1945 Gender : Female Race : ORD : [id number] Procedure Date : Dec 30 2024 13:12:00 Edit Date : Jan 26 2025 19:39:59 Diagnosis: SINUS BRADYCARDIA OTHERWISE NORMAL ECG Confirmed by NERI WILDE MD ([id number]) on 01/26/2025 7:39:56 PM Test Reason : Location : 314 : J14 J Overread By : NERI WILDE MD Edited By : NERI WILDE MD Referred By : GUCCI EMERY Acquired by : RAJESH HEATON [facility] Chrissy 12-02-2024 CNPN Telephone (CARDMN) -- CADY BERUMEN ([id number]) 1945 F Date Time Provider Department 12/02/24 MYNOR SHIRLEY During your visit today, we recorded the following information about you: Honorio Cartwright 12/02/2024 10:53 AM Signed December 02, 2024 Patient Contact Number: [phone] Patient last seen within the last year: No 03/10/23 Reason For Call: Test Results Physician:Mynor Shirley MD Patient was informed that non-urgent calls may be returned within the next three business days. Yes The patient is asking for a return phone call to go over the Holter results that were received 11/30/24. Honorio Rosas, Admin Lindy Acevedo RN 12/06/2024 12:56 PM Signed Returned phone call from Cady Berumen. No answer. Left VM. Patient was last seen in February 2023. Advise follow up to review any records. Lindy Acevedo RN Allergies As of Date: 12/02/2024 Noted Allergy Reaction FRAGRANCES 11/28/2014 3 - Cough 12 - Shortness of Breath BENZODIAZEPINES 09/08/2014 1 - Mental Status Change Comments: Pt sees colors and laughing CATS 11/28/2014 9 - Itching 12 - Shortness of Breath Comments: Eventual wheezing DUST MITES 11/28/2014 14 - Other: See Comments Comments: Positive allergy test GRASS POLLEN-DONNA, STANDARD 11/28/2014 9 - Itching Comments: Nasal congestion MOLD 11/28/2014 9 - Itching Comments: Nasal congestion SEASONAL ALLERGIES 11/08/2010 3 - Cough SULFA (SULFONAMIDE ANTIBIOTICS) 06/13/2005 9 - Itching TREES 11/28/2014 9 - Itching Comments: Nasal congestion VALIUM (DIAZEPAM) 09/23/2013 5 - Intolerance Comments: Laughing hysterically, ultra sensitive ZITHROMAX (AZITHROMYCIN) 06/08/2019 14 - Other: See Comments Comments: nausea Date Reviewed: 10/26/2024 Reviewed by: Mago Cerrato LPN - Fully Assessed Reason for Visit: Results [95] Prescriptions as of 12/06/2024 - baclofen 10 mg tablet Take 1 tablet by mouth three times a day as needed (muscle spasms). - furosemide (LASIX) 20 mg tablet Take 20 mg by mouth once daily. - melatonin 1 mg subl Dissolve 1 tablet under the tongue once daily. - Boswellia cecile extract (BOSWELLIA CECILE XT, BULK,) 70 % powd 1 Each two times a day. - metoprolol tartrate, short acting, (LOPRESSOR) 25 mg tablet Take 12.5 mg by mouth as needed. Takes as needed for rapid HR - timolol maleate (TIMOPTIC) 0.5 % ophthalmic solution Use 1 Drop in both eyes twice daily. - warfarin (COUMADIN) 5 mg tablet Take 1 tablet by mouth daily except 7.5mg on ( [facility]) - ALPHA LIPOIC ACID ORAL Take by mouth. - Cholecalciferol, Vitamin D3, 50 mcg (2,000 unit) cap Take 2 capsules by mouth once daily. - COQ10, UBIQUINOL, ORAL Take 30 mg by mouth. - latanoprost (XALATAN) 0.005 % ophthalmic solution Use 1 Drop in both eyes daily at bedtime. Meds Comments as of 05/10/2015: Does not take antivert, ibuprofen, aleve. Does take boswelia frankincense and white willow. Problem List As Of Date 12/02/2024 Noted Resolved ALLERGIC RHINITIS NOS [J30.9] 06/19/2004 WOUND (NOT COMPLICATED) - OPEN FINGER(S) [S61.*06/14/2005 10/08/2014 GANGLION JOINT (Mucous cyst left hand 3rd digit*08/07/2005 10/08/2014 GENERAL OSTEOARTHROSIS [M15.9] 11/23/2006 Abdominal pain, unspecified site [R10.9] 11/23/2006 10/08/2014 Lumbago [M54.50] 11/16/2008 10/08/2014 Rectal bleeding [K62.5] 09/06/2010 10/08/2014 Cellulitis [L03.90] 06/24/2013 10/08/2014 Ulcer of ankle (HCC) [L97.309] 06/24/2013 10/08/2014 Venous stasis ulcer of right ankle limited to b*07/18/2013 06/09/2023 Vitamin D deficiency [E55.9] 09/20/2013 Frequency of urination [R35.0] 03/01/2014 10/08/2014 Urgency of urination [R39.15] 03/01/2014 10/08/2014 Nocturia [R35.1] 03/01/2014 Hesitancy of micturition [R39.11] 03/01/2014 Varicose veins of right lower extremity [I83.91]08/25/2014 BPPV (benign paroxysmal positional vertigo) [H8*10/30/2014 Vertigo of central origin [H81.4] 12/11/2014 Peripheral vertigo, unspecified [H81.399] 12/11/2014 Sprain of sacroiliac joint [S33.6XXA] 11/06/2015 Irritable bowel syndrome with both constipation*11/06/2015 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] 08/14/2017 Varicose veins of left lower extremity with dixon*03/03/2018 Asthma [J45.909] 04/20/2018 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*06/16/2018 Paroxysmal atrial tachycardia (HCC) [I47.19] 11/29/2018 Severe episode of recurrent major depressive di*11/29/2018 Paroxysmal atrial fibrillation (HCC) [I48.0] 02/04/2019 Essential hypertension [I10] SOB (shortness of breath) [R06.02] 12/23/2021 Bilateral carotid artery stenosis [I65.23] 03/21/2024 Encounter Status:Closed by LINDY [facility]EDO [facility] FLORIDACADY ([id number]) 1945 F Date Time Provider Department 11/30/24 MYNOR SHIRLEY During your visit today, we recorded the following information about you: Honorio Cartwright 2024 3:20 PM Signed Received faxed Holter report. Scanned in the system and the shared drive Honorio Ralph, [employer] Allergies As of Date: 2024 Noted Allergy Reaction FRAGRANCES 11/28/2014 3 - Cough 12 - Shortness of Breath BENZODIAZEPINES 09/08/2014 1 - Mental Status Change Comments: Pt sees colors and laughing CATS 11/28/2014 9 - Itching 12 - Shortness of Breath Comments: Eventual wheezing DUST MITES 11/28/2014 14 - Other: See Comments Comments: Positive allergy test GRASS POLLEN-DONNA, STANDARD 11/28/2014 9 - Itching Comments: Nasal congestion MOLD 11/28/2014 9 - Itching Comments: Nasal congestion SEASONAL ALLERGIES 11/08/2010 3 - Cough SULFA (SULFONAMIDE ANTIBIOTICS) 06/13/2005 9 - Itching TREES 11/28/2014 9 - Itching Comments: Nasal congestion VALIUM (DIAZEPAM) 09/23/2013 5 - Intolerance Comments: Laughing hysterically, ultra sensitive ZITHROMAX (AZITHROMYCIN) 06/08/2019 14 - Other: See Comments Comments: nausea Date Reviewed: 10/26/2024 Reviewed by: Mago Cerrato LPN - Fully Assessed Reason for Visit: Received Outside Medical Records [[id number]] Cmt: Holter Prescriptions as of 2024 - baclofen 10 mg tablet Take 1 tablet by mouth three times a day as needed (muscle spasms). - furosemide (LASIX) 20 mg tablet Take 20 mg by mouth once daily. - melatonin 1 mg subl Dissolve 1 tablet under the tongue once daily. - Boswellia cecile extract (BOSWELLIA CECILE XT, BULK,) 70 % powd 1 Each two times a day. - metoprolol tartrate, short acting, (LOPRESSOR) 25 mg tablet Take 12.5 mg by mouth as needed. Takes as needed for rapid HR - timolol maleate (TIMOPTIC) 0.5 % ophthalmic solution Use 1 Drop in both eyes twice daily. - warfarin (COUMADIN) 5 mg tablet Take 1 tablet by mouth daily except 7.5mg on ( [facility]) - ALPHA LIPOIC ACID ORAL Take by mouth. - Cholecalciferol, Vitamin D3, 50 mcg (2,000 unit) cap Take 2 capsules by mouth once daily. - COQ10, UBIQUINOL, ORAL Take 30 mg by mouth. - latanoprost (XALATAN) 0.005 % ophthalmic solution Use 1 Drop in both eyes daily at bedtime. Meds Comments as of 05/10/2015: Does not take antivert, ibuprofen, aleve. Does take boswelia frankincense and white willow. Problem List As Of Date 2024 Noted Resolved ALLERGIC RHINITIS NOS [J30.9] 06/19/2004 WOUND (NOT COMPLICATED) - OPEN FINGER(S) [S61.*06/14/2005 10/08/2014 GANGLION JOINT (Mucous cyst left hand 3rd digit*08/07/2005 10/08/2014 GENERAL OSTEOARTHROSIS [M15.9] 11/23/2006 Abdominal pain, unspecified site [R10.9] 11/23/2006 10/08/2014 Lumbago [M54.50] 11/16/2008 10/08/2014 Rectal bleeding [K62.5] 09/06/2010 10/08/2014 Cellulitis [L03.90] 06/24/2013 10/08/2014 Ulcer of ankle (HCC) [L97.309] 06/24/2013 10/08/2014 Venous stasis ulcer of right ankle limited to b*07/18/2013 06/09/2023 Vitamin D deficiency [E55.9] 09/20/2013 Frequency of urination [R35.0] 03/01/2014 10/08/2014 Urgency of urination [R39.15] 03/01/2014 10/08/2014 Nocturia [R35.1] 03/01/2014 Hesitancy of micturition [R39.11] 03/01/2014 Varicose veins of right lower extremity [I83.91]08/25/2014 BPPV (benign paroxysmal positional vertigo) [H8*10/30/2014 Vertigo of central origin [H81.4] 12/11/2014 Peripheral vertigo, unspecified [H81.399] 12/11/2014 Sprain of sacroiliac joint [S33.6XXA] 11/06/2015 Irritable bowel syndrome with both constipation*11/06/2015 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] 08/14/2017 Varicose veins of left lower extremity with dixon*03/03/2018 Asthma [J45.909] 04/20/2018 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*06/16/2018 Paroxysmal atrial tachycardia (HCC) [I47.19] 11/29/2018 Severe episode of recurrent major depressive di*11/29/2018 Paroxysmal atrial fibrillation (HCC) [I48.0] 02/04/2019 Essential hypertension [I10] SOB (shortness of breath) [R06.02] 12/23/2021 Bilateral carotid artery stenosis [I65.23] 03/21/2024 Encounter Status:Closed by HONORIO CARTWRIGHT on 11/30/24 [facility] CAD[facility] ([id number]) 1945 F Date Time Provider Department 11/30/24 MYNOR SHIRLEY During your visit today, we recorded the following information about you: Honorio Cartwright 2024 3:21 PM Signed 2024 Patient Contact Number: [phone] Patient last seen within the last year: No 03/10/23 Reason For Call: Other Issue: Physician:Mynor Shirley MD Patient was informed that non-urgent calls may be returned within the next three business days. Yes The patient called to report that she has a echo and Holter done locally. Patient has shortness of breath and the local provider is looking for Dr. Shirley assistance. Advised that I did check the system and care everywhere and the records are not posted. Informed to have the local office fax the results to [phone] Honorio Rosas, Admin Lindy Acevedo RN 2024 4:22 PM Signed Awaiting results. Patient was last seen in 2022. Will need OPD visit. Lindy Acevedo RN Allergies As of Date: 2024 Noted Allergy Reaction FRAGRANCES 11/28/2014 3 - Cough 12 - Shortness of Breath BENZODIAZEPINES 09/08/2014 1 - Mental Status Change Comments: Pt sees colors and laughing CATS 11/28/2014 9 - Itching 12 - Shortness of Breath Comments: Eventual wheezing DUST MITES 11/28/2014 14 - Other: See Comments Comments: Positive allergy test GRASS POLLEN-DONNA, STANDARD 11/28/2014 9 - Itching Comments: Nasal congestion MOLD 11/28/2014 9 - Itching Comments: Nasal congestion SEASONAL ALLERGIES 11/08/2010 3 - Cough SULFA (SULFONAMIDE ANTIBIOTICS) 06/13/2005 9 - Itching TREES 11/28/2014 9 - Itching Comments: Nasal congestion VALIUM (DIAZEPAM) 09/23/2013 5 - Intolerance Comments: Laughing hysterically, ultra sensitive ZITHROMAX (AZITHROMYCIN) 06/08/2019 14 - Other: See Comments Comments: nausea Date Reviewed: 10/26/2024 Reviewed by: Mago Cerrato LPN - Fully Assessed Reason for Visit: Patient Update [1234] Prescriptions as of 2024 - baclofen 10 mg tablet Take 1 tablet by mouth three times a day as needed (muscle spasms). - furosemide (LASIX) 20 mg tablet Take 20 mg by mouth once daily. - melatonin 1 mg subl Dissolve 1 tablet under the tongue once daily. - Boswellia cecile extract (BOSWELLIA CECILE XT, BULK,) 70 % powd 1 Each two times a day. - metoprolol tartrate, short acting, (LOPRESSOR) 25 mg tablet Take 12.5 mg by mouth as needed. Takes as needed for rapid HR - timolol maleate (TIMOPTIC) 0.5 % ophthalmic solution Use 1 Drop in both eyes twice daily. - warfarin (COUMADIN) 5 mg tablet Take 1 tablet by mouth daily except 7.5mg on ( [facility]) - ALPHA LIPOIC ACID ORAL Take by mouth. - Cholecalciferol, Vitamin D3, 50 mcg (2,000 unit) cap Take 2 capsules by mouth once daily. - COQ10, UBIQUINOL, ORAL Take 30 mg by mouth. - latanoprost (XALATAN) 0.005 % ophthalmic solution Use 1 Drop in both eyes daily at bedtime. Meds Comments as of 05/10/2015: Does not take antivert, ibuprofen, aleve. Does take boswelia frankincense and white willow. Problem List As Of Date 2024 Noted Resolved ALLERGIC RHINITIS NOS [J30.9] 06/19/2004 WOUND (NOT COMPLICATED) - OPEN FINGER(S) [S61.*06/14/2005 10/08/2014 GANGLION JOINT (Mucous cyst left hand 3rd digit*08/07/2005 10/08/2014 GENERAL OSTEOARTHROSIS [M15.9] 11/23/2006 Abdominal pain, unspecified site [R10.9] 11/23/2006 10/08/2014 Lumbago [M54.50] 11/16/2008 10/08/2014 Rectal bleeding [K62.5] 09/06/2010 10/08/2014 Cellulitis [L03.90] 06/24/2013 10/08/2014 Ulcer of ankle (HCC) [L97.309] 06/24/2013 10/08/2014 Venous stasis ulcer of right ankle limited to b*07/18/2013 06/09/2023 Vitamin D deficiency [E55.9] 09/20/2013 Frequency of urination [R35.0] 03/01/2014 10/08/2014 Urgency of urination [R39.15] 03/01/2014 10/08/2014 Nocturia [R35.1] 03/01/2014 Hesitancy of micturition [R39.11] 03/01/2014 Varicose veins of right lower extremity [I83.91]08/25/2014 BPPV (benign paroxysmal positional vertigo) [H8*10/30/2014 Vertigo of central origin [H81.4] 12/11/2014 Peripheral vertigo, unspecified [H81.399] 12/11/2014 Sprain of sacroiliac joint [S33.6XXA] 11/06/2015 Irritable bowel syndrome with both constipation*11/06/2015 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] 08/14/2017 Varicose veins of left lower extremity with dixon*03/03/2018 Asthma [J45.909] 04/20/2018 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 Normal [facility] 12 Lead EKGon 11-28-2024 12 Lead EKG [facility] [address] [place] [address] 12 Lead EKG 11/28/24 1443 MR#: [id number] Acct: [id number] Name: CADY BERUMEN Rep #: [id number] : 1945 78 From: Dominguez Garsia MD Attending Dr: Status: DEP ER Ordering Dr: Isreal Ohara DO Date: 11/28/24 Location: ED Sex: F C Admitted: Test Reason : SOB Blood Pressure : */* mmHG Vent. Rate : 56 BPM Atrial Rate : 56 BPM P-R Int : 190 ms QRS Dur : 72 ms QT Int : 404 ms P-R-T Axes : 63 -12 44 degrees QTcB Int : 389 ms Sinus bradycardia Otherwise normal ECG Confirmed by DOMINGUEZ GARSIA MD ([id number]), proposal editor MEGAN GUTIERREZ ([id number]) on 11/29/2024 8:08:35 AM Referred By: Confirmed By: DOMINGUEZ GARSIA MD 11/29/24 0808 Date Dominguez Garsia MD CC: Dr. Moon Teixeira MD; Dr. Isreal Ohara DO Signed Normal [facility] Absolute lymphocyte countOrd ered By: Isreal Ohara on 11-28-2024 Lymphocytes Auto (Unsp spec) [#/Vol] 1.41 10*3/uL 0.83-4.51 [facility] Absolute neutrophil countOrd ered By: Isreal Ohara on 11-28-2024 Neutrophils (Bld) [#/Vol] 3.9 10*3/uL 2.0-7.7 [facility] Anion gap in Serum or Plasma Ordered By: Isreal Ohara on 11-28-2024 Anion gap [Moles/Vol] 10 mmol/L 5-15 [facility] Automated lymphocyte count a s percentage of total leukocytesOrdered By: Isreal Ohara on 11-28-2024 Lymphocytes/100 WBC Auto (Unsp spec) 23.0 % 19-41 [facility] BUN/creatinine ratioOrdered By: Isreal Ohara on 11-28-2024 Urea nitrogen/Creatinine [Mass ratio] 29.7 mg/mg High 10- [facility] Basic Metabolic Profile (BMP )on 11-28-2024 BUN/CRE 29.7 RATIO High 10- [facility] Comment on above: Performed By: #### L 501.5200, L500.2500, L501.9520, L100.0100 #### [facility] [address] [place], [address] Calcium [Mass/Vol] 9.3 mg/dL Normal 7.6-11.0 [facility] Comment on above: Performed By: #### L 501.5200, L500.2500, L501.9520, L100.0100 #### [facility] [address] [place], [address] Chloride [Moles/Vol] 105 mmol/L Normal 98-108 [facility] Comment on above: Performed By: #### L 501.5200, L500.2500, L501.9520, L100.0100 #### [facility] [address] [place], [address] CO2 [Moles/Vol] 25.3 mmol/L Normal 21.0-32.0 [facility] Comment on above: Performed By: #### L 501.5200, L500.2500, L501.9520, L100.0100 #### [facility] [address] [place], [address] Creatinine [Mass/Vol] 0.83 mg/dL Normal 0.70-1.20 [facility] Comment on above: Performed By: #### L 501.5200, L500.2500, L501.9520, L100.0100 #### [facility] [address] [place], [address] ECRCL 57.07 ml/min Normal 50-250 [facility] Comment on above: Performed By: #### L 501.5200, L500.2500, L501.9520, L100.0100 #### [facility] [address] [place], [address] GAP 10 Normal 5-15 [facility] Comment on above: Performed By: #### L 501.5200, L500.2500, L501.9520, L100.0100 #### [facility] [address] [place], [address] GFR/1.73 sq M.predicted among non-blacks MDRD (S/P/Bld) [Vol rate/Area] 72 mL/min/{1.73_m2} Normal >60 [facility] Comment on above: Result Comment: mL/m in/1.73m2 CKD-EPI Creatinine Equation (2020) Performed By: #### L 501.5200, L500.2500, L501.9520, L100.0100 #### [facility] [address] [place], [address] Glucose [Mass/Vol] 118 mg/dL High 70-99 [facility] Comment on above: Performed By: #### L 501.5200, L500.2500, L501.9520, L100.0100 #### [facility] [address] [place], [address] Potassium [Moles/Vol] 4.6 mmol/L Normal 3.3-5.1 [facility] Comment on above: Performed By: #### L 501.5200, L500.2500, L501.9520, L100.0100 #### [facility] [address] [place], [address] Sodium [Moles/Vol] 140 mmol/L Normal 133-145 [facility] Comment on above: Performed By: #### L 501.5200, L500.2500, L501.9520, L100.0100 #### [facility] [address] [place], [address] Urea nitrogen [Mass/Vol] 25 mg/dL High 4-19 [facility] Comment on above: Performed By: #### L 501.5200, L500.2500, L501.9520, L100.0100 #### [facility] [address] [place], [address] Basophil percentageOrdered B y: Isreal Ohara on 11-28-2024 Basophils/100 WBC (Bld) 1.1 % High 0-1 [facility] CBC W/Diff, Automatedon 04-0 Absolute Lymph 1.41 X10 3/uL Normal 0.83-4.51 [facility] Comment on above: Performed By: #### L 501.5200, L500.2500, L501.9520, L100.0100 #### [facility] [address] [place], [address] Absolute Neut 3.9 X10 3/uL Normal 2.0-7.7 [facility] Comment on above: Performed By: #### L 501.5200, L500.2500, L501.9520, L100.0100 #### [facility] [address] [place], [address] Basophils/100 WBC (Bld) 1.1 % High 0-1 [facility] Comment on above: Performed By: #### L 501.5200, L500.2500, L501.9520, L100.0100 #### [facility] [address] [place], [address] Eosinophils/100 WBC (Bld) 1.8 % Normal 0-5 [facility] Comment on above: Performed By: #### L 501.5200, L500.2500, L501.9520, L100.0100 #### [facility] [address] [place], [address] Erythrocyte distribution width (RBC) [Ratio] 13.7 % Normal 11.6-14.6 [facility] Comment on above: Performed By: #### L 501.5200, L500.2500, L501.9520, L100.0100 #### [facility] [address] [place], [address] Hematocrit (Bld) [Volume fraction] 37.5 % Normal 37-47 [facility] Comment on above: Performed By: #### L 501.5200, L500.2500, L501.9520, L100.0100 #### [facility] [address] [place], [address] Hemoglobin (Bld) [Mass/Vol] 12.0 g/dL Normal 12.0-15.0 [facility] Comment on above: Performed By: #### L 501.5200, L500.2500, L501.9520, L100.0100 #### [facility] [address] [place], [address] IG% 0.300 Normal 0.0-0.9 [facility] Comment on above: Result Comment: IG% - Immature Granulocytes (promyelocytes, myelocytes and metamyelocytes) > 1% indicates that a LEFT SHIFT is Present. Performed By: #### L 501.5200, L500.2500, L501.9520, L100.0100 #### [facility] [address] [place], [address] Lymphocytes/100 WBC (Bld) 23.0 % Normal 19-41 [facility] Comment on above: Performed By: #### L 501.5200, L500.2500, L501.9520, L100.0100 #### [facility] [address] [place], [address] MCH (RBC) [Entitic mass] 31.9 pg Normal 27.0-32.0 [facility] Comment on above: Performed By: #### L 501.5200, L500.2500, L501.9520, L100.0100 #### [facility] [address] [place], [address] MCHC (RBC) [Mass/Vol] 32.0 g/dL Normal 32-36 [facility] Comment on above: Performed By: #### L 501.5200, L500.2500, L501.9520, L100.0100 #### [facility] [address] [place], [address] MCV (RBC) [Entitic vol] 99.7 fL High 81-99 [facility] Comment on above: Performed By: #### L 501.5200, L500.2500, L501.9520, L100.0100 #### [facility] [address] [place], [address] Monocytes/100 WBC (Bld) 10.3 % High 0-10 [facility] Comment on above: Performed By: #### L 501.5200, L500.2500, L501.9520, L100.0100 #### [facility] [address] [place], [address] Neutrophils/100 WBC (Bld) 63.5 % Normal 47-70 [facility] Comment on above: Performed By: #### L 501.5200, L500.2500, L501.9520, L100.0100 #### [facility] [address] [place], [address] Nucleated RBC (Bld) [#/Vol] 0 10*3/uL Normal 0-5 [facility] Comment on above: Performed By: #### L 501.5200, L500.2500, L501.9520, L100.0100 #### [facility] [address] [place], [address] Platelet mean volume (Bld) [Entitic vol] 12.9 fL High 6.2-12.0 [facility] Comment on above: Performed By: #### L 501.5200, L500.2500, L501.9520, L100.0100 #### [facility] [address] [place], [address] Platelets (Bld) [#/Vol] 176 10*3/uL Normal 150-450 [facility] Comment on above: Performed By: #### L 501.5200, L500.2500, L501.9520, L100.0100 #### [facility] [address] [place], [address] RBC (Bld) [#/Vol] 3.76 10*6/uL Low 4.2-5.4 [facility] Comment on above: Performed By: #### L 501.5200, L500.2500, L501.9520, L100.0100 #### [facility] [address] [place], [address] RDW SD 50.2 fl High 35.1-43.9 [facility] Comment on above: Performed By: #### L 501.5200, L500.2500, L501.9520, L100.0100 #### [facility] [address] [place], [address] WBC (Bld) [#/Vol] 6.1 10*3/uL Normal 4.4-11.0 [facility] Comment on above: Performed By: #### L 501.5200, L500.2500, L501.9520, L100.0100 #### [facility] [address] [place], [address] Carbon dioxide, total [Moles /volume] in Central venous bloodOrdered By: Isreal Ohara on 11-28-2024 CO2 [Moles/Vol] 25.3 mmol/L 21.0-32.0 [facility] Chest 1 View (Portable)on Chest 1 View (Portable) [facility] Imaging Services [address] [place] [address] Chest 1 View (Portable) MR#: [id number] Acct: [id number] Name: CADY BERUMEN Rep #: [id number] : 1945 F 78 From: Anneliese Godoy MD PCP: Dr. Moon Teixeira MD Status: REG ER Study: Chest 1 View (Portable) Date of Exam: 11/28/24 Exam# [id number] Ordering Dr: Isreal Ohara DO PROCEDURE: CHEST 1 VIEW (PORTABLE) (RADCXPA_P), 11/28/2024 REASON FOR EXAM: DYSPNEA TECHNIQUE: A single portable AP view of the chest was obtained. COMPARISON: 09/26/2024 FINDINGS: Heart: Unremarkable. Mediastinum: Atherosclerosis. Lungs/pleura: No focal consolidation. No sizeable pleural effusion or visible pneumothorax. Bones: Suspect demineralization. Lines and support devices: None. Other: Similar implantable loop recorder.. RAD/Chest 1 View (Portable) IMPRESSION: 1. No visible acute cardiopulmonary findings 2. Additional description as above. Reading Location: [id number] CC: Dr. Moon Teixeira MD; Dr. Isreal Ohara DO Audit Director: Signed Normal [facility] Chloride assayOrdered By: Kartik Ohara on 11-28-2024 Chloride [Moles/Vol] 105 mmol/L 98-108 [facility] Emergency Department Summary on 11-28-2024 Emergency Department Summary [facility] Medical Records Department [address] [place] [address] Emergency Department Summary 11/28/24 MR#: [id number] Acct: [id number] Name: CADY BERUMEN Rep #: [id number] : 1945 78 From: Isreal Ohara DO PCP: Dr. Moon Teixeira MD Status:DEP ER Location: ED HPI History of Present Illness Chief Complaint: Shortness of Breath Informant: patient and EMS Narrative Narrative: 78-year-old female presenting to the emergency room chief complaint of dyspnea. Patient called EMS. Upon their arrival patient was in a sinus rhythm with a pulse ox around 96%. She states that she felt better after they gave her oxygen. She was noted to be 97 to 98% percent on room air by nursing. Patient states that she has a history of paroxysmal atrial fibrillation and because of resting bradycardia typically does a pill in the pocket when she goes into A-fib. She has had recent echocardiogram as well as cardiology visit and Holter monitoring which showed sinus rhythm with episodes of A-fib. Her echo showed an EF of 70%. Patient has questions regarding BMP because she has had a couple of those test recently and states that she was told that she does not have CHF. Patient takes Coumadin. She notes a history of asthma as a child and again in her 40s but states that she is not on asthma medication as she has had normal PFTs. Patient notes a chronic cough but states that that is most likely due to her allergies. She states that this morning around 3:00 she woke up and felt short of breath. Her heart rate was in the 120s so she took her extra metoprolol. Patient does note a history of anxiety and has been under life stressors recently. [facility] Medical History Shortness of breath PRAMOD (obstructive sleep apnea) senior care (current) use of 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 Paroxysmal atrial fibrillation Change in bowel habit Asthma Near syncope Atrial tachycardia (10/14/18) Varicose vein of leg Vestibular neuritis Osteopenia Osteoarthritis Chronic venous insufficiency Glaucoma Essential (primary) hypertension Home Medications ???Medication ???Instructions ???Recorded ???Last Taken ???Type cholecalciferol (vitamin D3) 25 1,000 unit PO BID vitamin 03/10/16 11/27/24 History mcg (1,000 unit) tablet latanoprost 0.005 % eye drops 1 drp EACH EYE [facility] eye health 02/2111/27/24 History coenzyme Q10 50 mg chewable tablet 30 mg PO DAILY 06/07/19 11/27/24 History metoprolol tartrate 25 mg tablet 12.5 mg (1/2 x 25 mg) PO BID PRN 0 09/09/24 11/28/24 Rx afib #180 tabs timolol maleate 0.5 % eye drops 1 drp ophthalmic (eye) BID 5 11/28/24 History warfarin 5 mg tablet 5 mg PO MOWEFR 11/28/24 11/25/24 H istory warfarin 5 mg tablet 7.5 mg PO SUTUTHSA 11/28/24 History Allergy/AdvReac Type Severity Reaction Status Date / Time cat dander Allergy Mild congestion Verified 10/13/24 11:30 grass pollen Allergy Mild Cough, Verified 10/13/24 11:30 rhinitis house dust Allergy Mild Cough, Verified 10/13/24 11:30 rhinitis mold Allergy Mild Cough, Verified 10/13/24 11:30 rhinitis tree and shrub pollen Allergy Mild Cough, Verified 10/13/24 11:30 rhinitis Sulfa (Sulfonamide Allergy Itching Verified 10/13/24 11:30 Antibiotics) losartan AdvReac Severe dizziness, Verified 10/13/24 11:30 severe amlodipine AdvReac Intermediate dizziness Verified 10/13/24 11:30 lisinopril AdvReac Intermediate Nagging Verified 10/13/24 11:30 dry cough Benzodiazepines AdvReac Other Verified 10/13/24 11:30 diazepam (From Valium) AdvReac Other Verified 10/13/24 11:30 Family History Father Myocardial infarction from [place] age 61 Heart disease Diabetes Sister Breast cancer Other long term (current) use of 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 Surgical History history vein surgery history TMJ surgery History of cataract surgery S/P excision of Ramos's neuroma History of carpal tunnel release History of tonsillectomy Social History household members: spouse housing: house Smoking Status: Never smoker alcohol intake: current alcohol intake frequency: a few times a month substance use type: does not use what type of physical activity do you participate in: none do you feel safe at home: Yes ROS ROS ED Constitutional Constitutional ED: Denies chills or weight loss Eyes Eyes: Denies change in vision or diplopia ENT ENT ED: Denies ear pain, rhinorrhea or sore throat Cardiovascular Cardiovascular: Denies chest pain, orthopnea, palpitations or racing heartbeat Respiratory/Chest Respiratory/Chest: Reports cough and dyspnea; Denies o (more content not included)... Normal [facility] Eosinophil percentageOrdered By: Isreal Ohara on 11-28-2024 Eosinophils/100 WBC (Bld) 1.8 % 0-5 [facility] Erythrocyte distribution wid th (RBC) [Ratio]Ordered By: Isreal Ohara on 11-28-2024 Erythrocyte distribution width (RBC) [Entitic vol] 50.2 fL High 35.1-43.9 [facility] Erythrocyte distribution wid th ratioOrdered By: Isreal Ohara on 11-28-2024 Erythrocyte distribution width (RBC) [Ratio] 13.7 % 11.6-14.6 [facility] Erythrocyte distribution wid th standard deviationOrdered By: Isreal Ohara on 11-28-2024 Erythrocyte distribution width (RBC) [Ratio] 50.2 fl High 35.1-43.9 [facility] Estimation of creatinine attila aranceOrdered By: Isreal Ohara on 11-28-2024 Estimated Creatinine Clearance Calc 57.07 ml/min 50-250 [facility] GFR/1.73 sq M.predicted celeste g non-blacks MDRD (S/P/Bld) [Vol rate/Area]Ordered By: Isreal Ohara on 11-28-2024 Estimated GFR (MDRD) Non-Af Amer 72 >60 [facility] Comment on above: mL/min/1.73m2 CKD-EP I Creatinine Equation (2020) Glomerular filtration rate ( GFR) estimation/1.73 sq m using serum, plasma, or whole bOrdered By: Isreal Ohara on 11-28-2024 GFR/1.73 sq M.predicted among non-blacks MDRD (S/P/Bld) [Vol rate/Area] 72 mL/min/{1.73_m2} >60 [facility] Comment on above: mL/min/1.73m2 CKD-EP I Creatinine Equation (2020) Hematocrit Auto (Bld) [Volum e fraction]Ordered By: Isreal Ohara on 11-28-2024 Hematocrit (Bld) [Volume fraction] 37.5 % 37-47 [facility] Hemoglobin measurementOrdere d By: Isreal Ohara on 11-28-2024 Hemoglobin (Bld) [Mass/Vol] 12.0 g/dL 12.0-15.0 [facility] Immature granulocytes/100 WB C Auto (Bld)Ordered By: Isreal Ohara on 11-28-2024 Immature granulocytes/100 WBC (Bld) 0.300 % 0.0-0.9 [facility] Comment on above: IG% - Immature Granu locytes (promyelocytes, myelocytes and metamyelocytes) > 1% indicates that a LEFT SHIFT is Present. International normalized rat io (INR) calculationOrdered By: Isreal Ohara on 11-28-2024 INR Coag (Bld) [Relative time] 2.7 {INR} [facility] L501.4021on 11-28-2024 Trop T High Sen 9 ng/L Normal <=14 [facility] Comment on above: Performed By: #### L 501.5200, L500.2500, L501.9520, L100.0100 #### [facility] [address] [place], [address] L503.7505on 11-28-2024 Natriuretic peptide B (Bld) [Mass/Vol] 590 pg/mL Normal <=1800 [facility] Comment on above: Result Comment: Hear t Failure Unlikely: < 300 pg/mL Heart Failure Likely < 50 Years: > 450 pg/mL 50-75 Years: > 900 pg/mL >75 Years: > 1800 pg/mL Performed By: #### L 501.5200, L500.2500, L501.9520, L100.0100 #### [facility] [address] [place], [address] Lymphocytes Auto (Unsp spec) [#/Vol]Ordered By: Isreal Ohara on 11-28-2024 Lymphocytes (Bld) [#/Vol] 1.41 10*3/uL 0.83-4.51 [facility] Lymphocytes/100 WBC Auto (Un sp spec)Ordered By: Isreal Ohara on 11-28-2024 Lymphocytes/100 WBC (Bld) 23.0 % 19-41 [facility] MCV (mean corpuscular volume ) determinationOrdered By: Isreal Ohara on 11-28-2024 MCV (RBC) [Entitic vol] 99.7 fL High 81-99 [facility] Mean corpuscular hemoglobin (MCH) determinationOrdered By: Isreal Ohara on 11-28-2024 MCH (RBC) [Entitic mass] 31.9 pg 27.0-32.0 [facility] Mean corpuscular hemoglobin concentration (MCHC) determinationOrdered By: Isreal Ohara on 11-28-2024 MCHC (RBC) [Mass/Vol] 32.0 g/dL 32-36 [facility] Mean platelet volume determi nationOrdered By: Isreal Ohara on 11-28-2024 Platelet mean volume (Bld) [Entitic vol] 12.9 fL High 6.2-12.0 [facility] Monocyte percentageOrdered B y: Isreal Ohara on 11-28-2024 Monocytes/100 WBC (Bld) 10.3 % High 0-10 [facility] Natriuretic peptide.B prohor sharon N-Terminal [Mass/Vol]Ordered By: Isreal Ohara on 11-28-2024 Natriuretic peptide B (Bld) [Mass/Vol] 590 pg/mL <1800 [facility] Comment on above: Heart Failure Unlike ly: < 300 pg/mLHeart Failure Likely< 50 Years: > 450 pg/mL50-75 Years: > 900 pg/mL>75 Years: > 1800 pg/mL Natriuretic peptide.B prohor sharon N-Terminal [Mass/volume] in Serum or PlasmaOrdered By: Isreal Ohara on 11-28-2024 Natriuretic peptide.B prohormone N-Terminal [Mass/Vol] 590 pg/mL <1800 [facility] Comment on above: Heart Failure Unlike ly: < 300 pg/mLHeart Failure Likely< 50 Years: > 450 pg/mL50-75 Years: > 900 pg/mL>75 Years: > 1800 pg/mL Neutrophil percentageOrdered By: Isreal Ohara on 11-28-2024 Neutrophils/100 WBC (Bld) 63.5 % 47-70 [facility] Nucleated red blood cell per centageOrdered By: Isreal Ohara on 11-28-2024 Nucleated RBC/100 WBC (Bld) [Ratio] 0 % 0-5 [facility] Platelet countOrdered By: Kartik Ohara on 11-28-2024 Platelets (Bld) [#/Vol] 176 10*3/uL 150-450 [facility] Potassium (Unsp spec) [Mass/ Vol]Ordered By: Isreal Ohara on 11-28-2024 Potassium [Moles/Vol] 4.6 mmol/L 3.3-5.1 [facility] Potassium measurement (mass/ volume)Ordered By: Isreal Ohara on 11-28-2024 Potassium (Unsp spec) [Mass/Vol] 4.6 mmol/L 3.3-5.1 [facility] Prothrombin Time w/INRon INR Coag (PPP) [Relative time] 2.7 {INR} Normal [facility] Comment on above: Performed By: #### L 501.5200, L500.2500, L501.9520, L100.0100 #### [facility] [address] [place], [address] PT Coag (PPP) [Time] 29.6 s High 11.7-14.9 [facility] Comment on above: Performed By: #### L 501.5200, L500.2500, L501.9520, L100.0100 #### [facility] [address] [place], [address] Prothrombin timeOrdered By: Isreal Ohara on 11-28-2024 PT Coag (PPP) [Time] 29.6 s High 11.7-14.9 [facility] RBC Auto (Bld) [#/Vol]Ordere d By: Isreal Ohara on 11-28-2024 RBC (Bld) [#/Vol] 3.76 10*6/uL Low 4.2-5.4 [facility] Serum creatinine measurement (mass/volume)Ordered By: Isreal Ohara on 11-28-2024 Creatinine [Mass/Vol] 0.83 mg/dL 0.70-1.20 [facility] Serum glucose measurement (m ass/volume)Ordered By: Isreal Ohara on 11-28-2024 Glucose [Mass/Vol] 118 mg/dL High 70-99 [facility] Serum or plasma calcium ayanna urement (mass/volume)Ordered By: Isreal Ohara on 11-28-2024 Calcium [Mass/Vol] 9.3 mg/dL 7.6-11.0 [facility] Serum or plasma urea nitroge n measurement (mass/volume)Ordered By: Isreal Ohara on 11-28-2024 Urea nitrogen [Mass/Vol] 25 mg/dL High 4-19 [facility] Sodium levelOrdered By: Venkata Ohara on 11-28-2024 Sodium [Moles/Vol] 140 mmol/L 133-145 [facility] Troponin T.cardiac High sens itivity method [Mass/Vol]Ordered By: Isreal Ohara on 11-28-2024 Troponin T High Sensitivity 9 ng/L <14 [facility] Troponin T.cardiac [Mass/vol ume] in Serum or Plasma by High sensitivity methodOrdered By: Isreal Ohara on 11-28-2024 Troponin T.cardiac High sensitivity method [Mass/Vol] 9 ng/L <14 [facility] White blood cell (WBC) count Ordered By: Isreal Ohara on 11-28-2024 WBC (Bld) [#/Vol] 6.1 10*3/uL 4.4-11.0 [facility] Anion gap in Serum or Plasma Ordered By: Yinka Lovelace on 11-18-2024 Anion gap [Moles/Vol] 15 mmol/L 5-15 [facility] BUN/creatinine ratioOrdered By: Yinka Lovelace on 11-18-2024 Urea nitrogen/Creatinine [Mass ratio] 23.4 mg/mg High 10-20 [facility] Basic Metabolic Profile (BMP )on 11-18-2024 BUN/CRE 23.4 RATIO High 10- [facility] Comment on above: Performed By: #### L 501.5200, L500.2500, L501.9520, L100.0100 #### [facility] [address] [place], [address] Calcium [Mass/Vol] 9.2 mg/dL Normal 7.6-11.0 [facility] Comment on above: Performed By: #### L 501.5200, L500.2500, L501.9520, L100.0100 #### [facility] [address] [place], [address] Chloride [Moles/Vol] 103 mmol/L Normal 98-108 [facility] Comment on above: Performed By: #### L 501.5200, L500.2500, L501.9520, L100.0100 #### [facility] [address] [place], [address] CO2 [Moles/Vol] 21.6 mmol/L Normal 21.0-32.0 [facility] Comment on above: Performed By: #### L 501.5200, L500.2500, L501.9520, L100.0100 #### [facility] [address] [place], [address] Creatinine [Mass/Vol] 1.00 mg/dL Normal 0.70-1.20 [facility] Comment on above: Performed By: #### L 501.5200, L500.2500, L501.9520, L100.0100 #### [facility] [address] [place], [address] GAP 15 Normal 5-15 [facility] Comment on above: Performed By: #### L 501.5200, L500.2500, L501.9520, L100.0100 #### [facility] [address] [place], [address] GFR/1.73 sq M.predicted among non-blacks MDRD (S/P/Bld) [Vol rate/Area] 58 mL/min/{1.73_m2} Low >60 [facility] Comment on above: Result Comment: mL/m in/1.73m2 CKD-EPI Creatinine Equation (2020) Performed By: #### L 501.5200, L500.2500, L501.9520, L100.0100 #### [facility] [address] [place], [address] Glucose [Mass/Vol] 73 mg/dL Normal 70-99 [facility] Comment on above: Performed By: #### L 501.5200, L500.2500, L501.9520, L100.0100 #### [facility] [address] [place], [address] Potassium [Moles/Vol] 4.2 mmol/L Normal 3.3-5.1 [facility] Comment on above: Performed By: #### L 501.5200, L500.2500, L501.9520, L100.0100 #### [facility] [address] [place], [address] Sodium [Moles/Vol] 139 mmol/L Normal 133-145 [facility] Comment on above: Performed By: #### L 501.5200, L500.2500, L501.9520, L100.0100 #### [facility] [address] [place], [address] Urea nitrogen [Mass/Vol] 23 mg/dL High 4-19 [facility] Comment on above: Performed By: #### L 501.5200, L500.2500, L501.9520, L100.0100 #### [facility] [address] [place], [address] Carbon dioxide, total [Moles /volume] in Central venous bloodOrdered By: Yinka Lovelace on 11-18-2024 CO2 [Moles/Vol] 21.6 mmol/L 21.0-32.0 [facility] Chloride assayOrdered By: Sheila Lovelace on 11-18-2024 Chloride [Moles/Vol] 103 mmol/L 98-108 [facility] GFR/1.73 sq M.predicted celeste g non-blacks MDRD (S/P/Bld) [Vol rate/Area]Ordered By: Yinka Lovelace on 11-18-2024 Estimated GFR (MDRD) Non-Af Amer 58 Low >60 [facility] Comment on above: mL/min/1.73m2 CKD-EP I Creatinine Equation (2020) Glomerular filtration rate ( GFR) estimation/1.73 sq m using serum, plasma, or whole bOrdered By: Yinka Lovelace on 11-18-2024 GFR/1.73 sq M.predicted among non-blacks MDRD (S/P/Bld) [Vol rate/Area] 58 mL/min/{1.73_m2} Low >60 [facility] Comment on above: mL/min/1.73m2 CKD-EP I Creatinine Equation (2020) International normalized rat io (INR) calculationOrdered By: Yinka Lovelace on 11-18-2024 INR Coag (Bld) [Relative time] 2.7 {INR} [facility] Potassium (Unsp spec) [Mass/ Vol]Ordered By: Yinka Lovelace on 11-18-2024 Potassium [Moles/Vol] 4.2 mmol/L 3.3-5.1 [facility] Potassium measurement (mass/ volume)Ordered By: Yinka Lovelace on 11-18-2024 Potassium (Unsp spec) [Mass/Vol] 4.2 mmol/L 3.3-5.1 [facility] Prothrombin Time w/INRon INR Coag (PPP) [Relative time] 2.7 {INR} Normal [facility] Comment on above: Performed By: #### L 501.5200, L500.2500, L501.9520, L100.0100 #### [facility] [address] [place], [address] PT Coag (PPP) [Time] 29.3 s High 11.7-14.9 [facility] Comment on above: Performed By: #### L 501.5200, L500.2500, L501.9520, L100.0100 #### [facility] [address] [place], [address] Prothrombin timeOrdered By: Yinka Lovelace on 11-18-2024 PT Coag (PPP) [Time] 29.3 s High 11.7-14.9 [facility] Serum creatinine measurement (mass/volume)Ordered By: Yinka Lovelace on 11-18-2024 Creatinine [Mass/Vol] 1.00 mg/dL 0.70-1.20 [facility] Serum glucose measurement (m ass/volume)Ordered By: Yinka Lovelace on 11-18-2024 Glucose [Mass/Vol] 73 mg/dL 70-99 [facility] Serum or plasma calcium ayanna urement (mass/volume)Ordered By: Yinka Lovelace on 11-18-2024 Calcium [Mass/Vol] 9.2 mg/dL 7.6-11.0 [facility] Serum or plasma urea nitroge n measurement (mass/volume)Ordered By: Yinka Lovelace on 11-18-2024 Urea nitrogen [Mass/Vol] 23 mg/dL High 4-19 [facility] Sodium levelOrdered By: Jacques Lovelace on 11-18-2024 Sodium [Moles/Vol] 139 mmol/L 133-145 [facility] Echo Completeon 11-11-2024 Echo Complete [facility] [place] [address] Echo Complete 11/11/24 1309 MR#: [id number] Acct: [id number] Name: CADY BERUMEN Rep #: [id number] : 1945 78 From: Dominguez Garsia MD Attending Dr: Dr. Yinka Lovelace MD Status: RE G CLI Ordering Dr: Yinka Lovelace MD Date: 11/11/24 Location: [facility] Sex: F C Admitted: Reason For Study Reason For Study: SOB Procedure This was a 2D Doppler, Color Flow transthoracic echocardiogram. Exam performed in department. Left Ventricle Normal LV size. The left ventricular ejection fraction is 70 %. Stage 1 diastolic dysfunction. No regional wall motion abnormalities noted. Right Ventricle Normal RV size. Normal systolic function. Atria Normal left atrium. Normal right atrium. Mitral Valve Normal mitral valve. Tricuspid Valve Normal tricuspid valve. Mild (1+) tricuspid valve insufficiency. Pulmonary artery systolic pressure is 35 mmHg. Aortic Valve Normal aortic valve. Pulmonic Valve Normal pulmonic valve. Great Vessels Normal aortic root. Pericardium/Pleural No pericardial effusion. MMode/2D Measurements Calculations LVIDd: 3.9 cm IVSd: 0.90 cm LVOT diam: 2.0 cm LVIDs: 2.4 cm LVPWd: 0.90 cm LVOT area: 3.1 cm2 RVDd: 3.9 cm FS: 37.8 % Ao root diam: 3.1 cm LAV(MOD-bp): 74.5 ml LVAd ap4: 23.9 cm2 LAV(MOD-bp) Indexed: 41.5 ml/m2 LVLd ap4: 7.8 cm LAV(MOD-sp2): 58.9 ml EDV(MOD-sp4): 62.6 ml LAV(MOD-sp4): 69.3 ml EDV(sp4-el): 62.2 ml LVAs ap4: 11.4 cm2 LVLs ap4: 5.9 cm ESV(MOD-sp4): 20.3 ml ESV(sp4-el): 18.5 ml EF(MOD-sp4): 67.6 % EF(sp4-el): 70.3 % SV(MOD-sp4): 42.3 ml SV(sp4-el): 43.7 ml LA A4 area: 23.9 cm2 SI(MOD-sp4): 23.6 ml/m2 LA dimension(2D): 3.4 cm RA A4 area: 16.8 cm2 Time Measurements MV dec time: 0.20 sec Doppler Measurements Calculations MV E max emmanuel: 66.4 cm/sec Lat Peak E' Emmanuel: 13.9 cm/sec Med Peak E' Emmanuel: 9.6 cm/sec MV A max emmanuel: 68.2 cm/sec E/E' lat: 4.8 E/E' med: 6.9 MV E/A: 0.97 MV V2 max: 75.6 cm/sec Ao V2 max: 182.9 cm/sec MV max P.3 mmHg MV dec slope: 326.1 cm/sec2 Ao max P.5 mmHg MV V2 mean: 48.2 cm/sec Ao V2 mean: 128.4 cm/sec MV mean P.0 mmHg Ao mean P.4 mmHg MV V2 VTI: 26.6 cm Ao V2 VTI: 40.3 cm AV (velocity ratio): 0.96 MVA(VTI): 4.5 cm2 MARK(I,D): 3.0 cm2 MARK(V,D): 2.5 cm2 LV V1 max: 145.8 cm/sec SV(LVOT): 120.5 ml PA V2 max: 128.3 cm/sec LV V1 max P.5 mmHg PA V2 mean: 86.0 cm/sec LV V1 mean P.9 mmHg LV V1 mean: 42.9 cm/sec LV V1 VTI: 38.6 cm TR max emmanuel: 276.3 cm/sec TR max P.5 mmHg ECHO/Echo Complete Interpretation Summary Normal LV size. The left ventricular ejection fraction is 70 %. Stage 1 diastolic dysfunction. Ordering Physician: Yinka Lovelace Referring Physician: Yinka Lovelace Performed By: Angie Crook RCS 11/11/24 1506 Date Dominguez Garsia MD CC: Dr. Moon Teixeira MD; Dr. Yinka Lovelace MD Date Dictated: 11/11/24 1309 Date Transcribed: 11/11/24 1506 Audit Director: Signed Normal [facility] Echocardiogram study reportO rdered By: Dominguez Garsia on 11-11-2024 Study report [facility] Cardiovascular Services [address] [place] [address] Echo Complete 11/11/24 1309 MR#: [id number] Acct: [id number] Name: CADY BERUMEN Rep #:[id number] : 1945 78 From: Dominguez Vo Attending Dr: Dr. Yinka Lovelace MD Status: REG CLI Ordering Dr: Yinka Lovelace MD Date: 11/11/24 Location: [facility] Sex: F C Admitted: Reason For Study Reason For Study: SOB Procedure This was a 2D Doppler, Color Flow transthoracic echocardiogram. Exam performed in department. Left Ventricle Normal LV size. The left ventricular ejection fraction is 70 %. Stage 1 diastolic dysfunction. No regional wall motion abnormalities noted. Right Ventricle Normal RV size. Normal systolic function. Atria Normal left atrium. Normal right atrium. Mitral Valve Normal mitral valve. Tricuspid Valve Normal tricuspid valve. Mild (1+) tricuspid valve insufficiency. Pulmonary artery systolic pressure is 35 mmHg. Aortic Valve Normal aortic valve. Pulmonic Valve Normal pulmonic valve. Great Vessels Normal aortic root. Pericardium/Pleural No pericardial effusion. MMode/2D Measurements & Calculations LVIDd: 3.9 cm IVSd: 0.90 cm LVOT diam: 2.0 cm LVIDs: 2.4 cm LVPWd: 0.90 cm LVOT area: 3.1 cm2 RVDd: 3.9 cm FS: 37.8 % Ao root diam: 3.1 cm LAV(MOD-bp): 74.5 ml LVAd ap4: 23.9 cm2 LAV(MOD-bp) Indexed: 41.5 ml/m2 LVLd ap4: 7.8 cm LAV(MOD-sp2): 58.9 ml EDV(MOD-sp4): 62.6 ml LAV(MOD-sp4): 69.3 ml EDV(sp4-el): 62.2 ml LVAs ap4: 11.4 cm2 LVLs ap4: 5.9 cm ESV(MOD-sp4): 20.3 ml ESV(sp4-el): 18.5 ml EF(MOD-sp4): 67.6 % EF(sp4-el): 70.3 % SV(MOD-sp4): 42.3 ml SV(sp4-el): 43.7 ml LA A4 area: 23.9 cm2 SI(MOD-sp4): 23.6 ml/m2 LA dimension(2D): 3.4 cm RA A4 area: 16.8 cm2 Time Measurements MV dec time: 0.20 sec Doppler Measurements & Calculations MV E max emmanuel: 66.4 cm/sec Lat Peak E' Emmanuel: 13.9 cm/sec Med Peak E' Emmanuel: 9.6 cm/sec MV A max emmanule: 68.2 cm/sec E/E' lat: 4.8 E/E' med: 6.9 MV E/A: 0.97 __ MV V2 max: 75.6 cm/sec Ao V2 max: 182.9 cm/sec MV max P.3 mmHg MV dec slope: 326.1 cm/sec2 Ao max P.5 mmHg MV V2 mean: 48.2 cm/sec Ao V2 mean: 128.4 cm/sec MV mean P.0 mmHg Ao mean P.4 mmHg MV V2 VTI: 26.6 cm Ao V2 VTI: 40.3 cm AV (velocity ratio): 0.96 MVA(VTI): 4.5 cm2 MARK(I,D): 3.0 cm2 MARK(V,D): 2.5 cm2 LV V1 max: 145.8 cm/sec SV(LVOT): 120.5 ml PA V2 max: 128.3 cm/sec LV V1 max P.5 mmHg PA V2 mean: 86.0 cm/sec LV V1 mean P.9 mmHg LV V1 mean: 42.9 cm/sec LV V1 VTI: 38.6 cm TR max emmanuel: 276.3 cm/sec TR max P.5 mmHg ECHO/Echo Complete Interpretation Summary Normal LV size. The left ventricular ejection fraction is 70 %. Stage 1 diastolic dysfunction. Ordering Physician: Yinka Lovelace Referring Physician: Yinka Lovelace Performed By: Angie Crook RCS 11/11/24 6687 Date _ Dominguez Garsia MD CC: Dr. Moon Teixeira MD; Dr. Yinka Lovelace MD ~ Date Dictated: 11/11/24 1309 Date Transcribed: 11/11/24 1506 Audit Director: Signed [facility] Work Phone: INR Coag (BldC) [Relative ti me]Ordered By: Bart Rosales on 11-11-2024 INR Coag (Bld) [Relative time] 2.3 {INR} [facility] Comment on above: Critical Value > 4.0 PT Coag (Bld) [Time]Ordered By: Bart Rosales on 11-11-2024 Bedside Prothrombin Time 25.0 SEC High 11.7-14.9 [facility] Protime w/INR Fingerstickon 11-11-2024 INR Coag (PPP) [Relative time] 2.3 {INR} Normal [facility] Comment on above: Result Comment: Crit ical Value > 4.0 Performed By: #### L 9200.0000 ####[facility] [address] [place], [place], [id number] Protime Coagsen 25.0 SEC High 11.7-14.9 [facility] Comment on above: Performed By: #### L 9200.0000 ####[facility] [address] [place], [place], [address] Whole blood prothrombin time Ordered By: Bart Rosales on 11-11-2024 PT Coag (Bld) [Time] 25.0 s High 11.7-14.9 [facility] MR Brain WO contraston 11-09 IMPRESSION: No acute intracranial abnormality, including no evidence of acute infarct. 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 No associated edema. Moderate presumed chronic microvascular ischemic changes in the white matter. Audit Director: MARIE Transcribe Date/Time: Nov 09 2024 2:07P Dictated by : ALTON MACK MD This examination was interpreted and the report reviewed and electronically signed by: ALTON MACK MD on Nov 09 2024 2:12PM [facility] DIV[facility] * * *Final Report* * * DATE OF EXAM: Nov 09 2024 1:54PM [facility] 0294 - MRI BRAIN WO IVCON / PROCEDURE REASON: Transient cerebral ischemia, unspecified type * * * * Physician Interpretation * * * * EXAMINATION: MRI BRAIN WO IVCON CLINICAL HISTORY: Transient cerebral ischemia, unspecified type TECHNIQUE: Routine noncontrast MRI protocol including diffusion images. MQ: MRBWO_2 COMPARISON: None. RESULT: Acute Change: There is no evidence of restricted diffusion to suggest an acute infarct. Hemorrhage: Innumerable scattered chronic microhemorrhages, predominantly in a peripheral distribution involving the bilateral cerebral hemispheres, most pronounced in the right greater than left parietal-occipital regions extending to the posterior temporal lobes with scattered additional foci. Relative sparing of the basal ganglia and cerebellum, although a few punctate basal ganglia and cerebellar foci are present. No substantial associated edema to suggest inflammatory component or recent hemorrhage. No definite acute intracranial hemorrhage. Mass Lesion/ Mass Effect: No evidence of an intracranial mass or extra-axial fluid collection. No significant mass effect. Chronic Change: Scattered patchy and confluent areas of increased T2 and FLAIR signal are present in the supratentorial white matter as well as the taye, which is nonspecific but likely represents chronic microvascular ischemia. Parenchyma: There is mild generalized parenchymal volume loss, overall commensurate with age. Ventricles: Ventricular caliber corresponds to the degree of parenchymal volume loss. Skull Base: Hypothalamic and pituitary region are grossly normal. Craniocervical junction is normal. No significant marrow replacement process. Vasculature: Major intracranial arterial structures, and dural venous sinuses show typical flow void, suggesting patency by spin echo criteria. Other: The visualized paranasal sinuses and mastoid air cells are clear. Bilateral ocular lens placement. The orbits and extracranial soft tissues are unremarkable. DIVISION OF RADIOLOGY Provider, [facility] - 11/09/2024 * * *Final Report* * * DATE OF EXAM: Nov 09 2024 1:54PM [facility] 0294 - MRI BRAIN WO IVCON / PROCEDURE REASON: Transient cerebral ischemia, unspecified type * * * * Physician Interpretation * * * * EXAMINATION: MRI BRAIN WO IVCON CLINICAL HISTORY: Transient cerebral ischemia, unspecified type TECHNIQUE: Routine noncontrast MRI protocol including diffusion images. MQ: MRBWO_2 COMPARISON: None. RESULT: Acute Change: There is no evidence of restricted diffusion to suggest an acute infarct. Hemorrhage: Innumerable scattered chronic microhemorrhages, predominantly in a peripheral distribution involving the bilateral cerebral hemispheres, most pronounced in the right greater than left parietal-occipital regions extending to the posterior temporal lobes with scattered additional foci. Relative sparing of the basal ganglia and cerebellum, although a few punctate basal ganglia and cerebellar foci are present. No substantial associated edema to suggest inflammatory component or recent hemorrhage. No definite acute intracranial hemorrhage. Mass Lesion/ Mass Effect: No evidence of an intracranial mass or extra-axial fluid collection. No significant mass effect. Chronic Change: Scattered patchy and confluent areas of increased T2 and FLAIR signal are present in the supratentorial white matter as well as the taye, which is nonspecific but likely represents chronic microvascular ischemia. Parenchyma: There is mild generalized parenchymal volume loss, overall commensurate with age. Ventricles: Ventricular caliber corresponds to the degree of parenchymal volume loss. Skull Base: Hypothalamic and pituitary region are grossly normal. Craniocervical junction is normal. No significant marrow replacement process. Vasculature: Major intracranial arterial structures, and dural venous sinuses show typical flow void, suggesting patency by spin echo criteria. Other: The visualized paranasal sinuses and mastoid air cells are clear. Bilateral ocular lens placement. The orbits and extracranial soft tissues are unremarkable. IMPRESSION IMPRESSION: No acute intracranial abnormality, including no evidence of acute infarct. 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 No associated edema. Moderate presumed chronic microvascular ischemic changes in the white matter. Audit Director: PSCB Transcribe Date/Time: Nov 09 2024 2:07P Dictated by : ALTON MACK MD This examination was interpreted and the report reviewed and electronically signed by: ALTON MACK MD on Nov 09 2024 2:12PM EST [facility] Radiology Study observation (narrative) [facility] MR Brain WO contrastOrdered By: [facility] Provider on 11-09-2024 [facility] MRI BRAIN WO IVCONon 025 MRI BRAIN WO IVCON * * *Final Report* * * DATE OF EXAM: Nov 09 2024 1:54PM [facility] 0294 - MRI BRAIN WO IVCON / PROCEDURE REASON: Transient cerebral ischemia, unspecified type * * * * Physician Interpretation * * * * EXAMINATION: MRI BRAIN WO IVCON CLINICAL HISTORY: Transient cerebral ischemia, unspecified type TECHNIQUE: Routine noncontrast MRI protocol including diffusion images. MQ: MRBWO_2 COMPARISON: None. RESULT: Acute Change: There is no evidence of restricted diffusion to suggest an acute infarct. Hemorrhage: Innumerable scattered chronic microhemorrhages, predominantly in a peripheral distribution involving the bilateral cerebral hemispheres, most pronounced in the right greater than left parietal-occipital regions extending to the posterior temporal lobes with scattered additional foci. Relative sparing of the basal ganglia and cerebellum, although a few punctate basal ganglia and cerebellar foci are present. No substantial associated edema to suggest inflammatory component or recent hemorrhage. No definite acute intracranial hemorrhage. Mass Lesion/ Mass Effect: No evidence of an intracranial mass or extra-axial fluid collection. No significant mass effect. Chronic Change: Scattered patchy and confluent areas of increased T2 and FLAIR signal are present in the supratentorial white matter as well as the taye, which is nonspecific but likely represents chronic microvascular ischemia. Parenchyma: There is mild generalized parenchymal volume loss, overall commensurate with age. Ventricles: Ventricular caliber corresponds to the degree of parenchymal volume loss. Skull Base: Hypothalamic and pituitary region are grossly normal. Craniocervical junction is normal. No significant marrow replacement process. Vasculature: Major intracranial arterial structures, and dural venous sinuses show typical flow void, suggesting patency by spin echo criteria. Other: The visualized paranasal sinuses and mastoid air cells are clear. Bilateral ocular lens placement. The orbits and extracranial soft tissues are unremarkable. IMPRESSION: No acute intracranial abnormality, including no evidence of acute infarct. 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 No associated edema. Moderate presumed chronic microvascular ischemic changes in the white matter. Audit Director: [facility] Transcribe Date/Time: Nov 09 2024 2:07P Dictated by : ALTON MACK MD This examination was interpreted and the report reviewed and electronically signed by: ALTON MACK MD on Nov 09 2024 2:12PM EST [id number] Normal [facility] Inital Evaluation (1) - PTon 11-02-2024 Inital Evaluation (1) - PT [facility] Physical Therapy [facility] [address] [place] [address] / REHABILITATION SERVICES INITIAL EVALUATION MR#: [id number] Acct: [id number] Name: CADY BERUMEN Rep #: [id number] : 1945 78 From: Ousmane Montero DPT, OCS, CSCS Referring Dr.: Dr. Moon Teixeira MD Status: REG RCR Insurance: ANTH SELF PAY INSURANCE Patient's Visit Information Visit Information Visit Information: CADY BERUMEN is a 78 year old F referred to Physical Therapy by Dr. Moon Teixeira MD with a diagnosis of Balance disorder and UE/LE weakness.. Date of Evaluation: 11/02/24 Physical Therapist: Ousmane Montero, DPT, OCS, CSCS Visit Plan Frequency: 2x /Week Duration: 4-6 Weeks Plan: 2x/week for 4-6 weeks for IE HEP, pt to walk with rollator one mile to tolerance each day consistently. in clinic plase tach and progress to I with UE and LE strnegth in WB, FW weight shift, vestibular balance. Use pics and list. Consider gym if patint willing to go to gym. Subjective Subjective: Feels like balance is off. Wors lately over the last year. 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 Gained 10# and that may be throwing her off. Dtr moved in with her due to health concerns and is eating more. No neuropathy, no spinning, feels unsteady and this is most of the time and no positions make her worse. May stagger to the left. Fell onto bed 2x. Uses rollator when goes for a walk. Uses push cart at the store. Fell one time catching R foot on floor threshold. Does not feel like she needs AD. Was drifting to L one time in [place] and thought it was time to have PT. Lives with dtr. No steps at home except one at front door. has ramp in garage. basic ADLs: all I. Hobbies: Dtr to doctor. 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 No regualr exercises Cant get out of chair without UE. Walking one mil per day for 3 days now with rollator. Objective Objective: Circulation feet cold and whitish. 97% spO2 and 72 HR after walking. Walks slowly with diminished FW weight shift intoPT I no AD. Walks 200 feet without a problem. Steps are reciprocally with one rail but very tired and SOB after 8 steps. Chair transfer I requiring UE and very tird aftre 30 SSTS short of breath for 10 seconds almost as in a panic attack but recovers quickly HS adn quads mod tight at -30 90/90 test. AROM hips and knee adn ankles WFL othrwise. rflexes 2/3 patella and ahilles B. sensation wNL to gross light touch in LE B. strength ankles 4-/5, knees 4-/5 and hips 3/5 abd and eext adn contralateral instability. Unable to hip flex in sitting with arms in air(needs to stabilize with UE on table.) No positional changes create any dizzyness today. Balance/Special Test Scores Functional Gait Assessment Score: 22 % Disability: 26.6700 CATSIB Score (Max score 120 seconds): 100 Dizziness Score: 34 TUG Test Time Seconds: 8 30 Second Chair Rise Test Seconds: 11 Goals Goal 1:: I appropriate HEP balance, UE/LE strength to limit future problems Goal Time Frame: 4-6 Weeks Goal 2:: 13 30 SSTS to show improved strength Goal Time Frame: 4-6 Weeks Goal 3:: 24 on FGA to show improved balance Goal Time Frame: 4-6 Weeks Goal 4:: Pt feel 70% better in overall balance and mobility Goal Time Frame: 4-6 Weeks Goal 5:: stand from chair without UE usage to show improved FW weight shift. Goal Time Frame: 4-6 Weeks Rehabilitation Potential Physical Therapy Diagnosis: weigth shift deficits, weakness in UE and LE limiting function. Rehabilitation Potential: Good Anticipated Interventions Patient/Client Instruction: Educate patient on: Condition and Plan of Care For the Purpose of:: To improve nutrient delivery to tissue, To improve muscle performance and motor function, To increase tolerance to activity/condition/positio n, To improve ability of physical actions for home/community/work/leisur e and To improve gait and locomotor functions Therapeutic Exercise to Include: Strength training, Balance training, Flexibilty training and Gait and locomotor training For the Purpose of:: To improve nutrient delivery to tissue, To improve muscle performance and motor function, To increase tolerance to activity/condition/positio n, To improve gait and locomotor functions and To improve safety Text: Thank you for the opportunity to evaluate your patient. For Medicare and Medicare HMO plans, please review the plan of care and approve it. It will need to be FAXED BACK to us at [phone] for Medicare purposes. For Medicare only, by signing this I certify the plan of care. Please let me know if there are questions or concerns regarding this plan of care. Physician Signature: Date: 11/02/24 1553 CC: Dr. Moon Teixeira MD EBG Signed Normal [facility] Protime w/INR Fingerstickon 11-01-2024 INR Coag (PPP) [Relative time] 3.1 {INR} Normal [facility] Comment on above: Result Comment: Crit ical Value > 4.0 Performed By: #### L 9200.0000 ####[facility] [address] [place], [place], [id number] Protime Coagsen 32.5 SEC High 11.7-14.9 [facility] Comment on above: Performed By: #### L 9200.0000 ####[facility] [address] [place], [place], [id number] No Panel InformationOrdered By: Dominguez Garsia on 10-31-2024 INR International Normalized Ratio 3.1 High [facility] CNOVon 10-26-2024 CNOV Office Visit (ILYAIWR ) -- CADY BERUMEN ([id number]) 1945 F Date Time Provider Department 10/26/24 1:30 PM MOON TEIXEIRA During your visit today, we recorded the following information about you: Pulse Blood pressure Weight Height 69/minute 106/71 75.9 kg 1.63 m Mago Cerrato LPN 10/26/2024 3:09 PM Signed Patient presents for geriatric consult. Rooming intake completed with patient to ensure accuracy. PHQ-9, MOCA reviewed with patient and entered into questionnaires. Living with Traci daughter right now. TOYA Mcintyre Chitra, MD 10/26/2024 3:09 PM Signed [facility] Initial Consult Cady Berumen is a 78 year old year old female who comes for Comprehensive Geriatric Assessment. Pt accompanied by: self Caregivers involved in care: HPI: Complains of dysequilibrium. 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 Especially when walking. She catches herself, with the furniture or the wall. The room or she is not spinning and it is not for certain positions that she feels dizzy. Any kind of shifting movements which are repeated causes her to have issues. Denies having hallucinations, anosmia, changes in handwriting, constipation, head injuries. Urinary incontinence has improved. She is not very open to trial of multiple medications. Stopped her medications for incontinence, anxiety depression, never started medication for cholesterol. Any Family History of dementia? None Are you or your spouse a ? Yes, spouse. Alzheimer Questionnaire Long-term Memory: Difficulty remembering distant events from the past like childhood, previous employment, wedding: NO Behavioral/personality: Withdrawn/Depressed: NO Crying spells: NO Anxious: YES History of aggression: NO History of irritability: NO Apathy:NO Recent changes in weight or appetite: NO Alcohol or Drug use: NO Smoking? NO Sleep: Do you snore loudly (louder than talking or loud enough to be heard through closed doors)? NO Do you often feel tired, fatigued, or sleepy during daytime? NO Has anyone observed you stop breathing during your sleep? NO Are you restless when you sleep at night? NO Do you have problems falling a sleep? NO Do you have problems staying a sleep? NO Psychosis: Hallucinations or delusions: NO Suicidal or homicidal ideations: NO Obsessions, compulsions, or hoarding: NO Safety: Does pt know his/her address? NO What would you do if there was a fire? Get out and call 911 Social History: Primary language: Swiss Marital Status: Living situation: Home w/ Family Socially engaged? (participates in activities such as clubs, hoahaoism, community center, sports, games, visiting friends/relatives, etc?): YES she is in a community that every one gets around each morning. Caregiver [place] and Stress Are your feeling overwhelmed? NO Do you have concerns about your own health? NO Are you neglecting your own needs? NO Do you have financial concerns? NO Do your fear loss of employment? NO Do you have concerns about verbal/physical abuse? NO Do you feel that you are still capable of taking care of your relative? NO Are you willing to continue being in the caregiver role? NO B-ADLs: (I=independent,A=assistanc e,D=dependent) ?Bathing: I, Dressing: I, Toileting: I, Transferring:I, Continence: I, Feeding: I, (Jeffers Index): I-ADLs: Ability to use phone: I, Shopping: I, Cooking: I, Housekeeping: I, Laundry: I, Transportation:I, Medications: {I, Handle Finances: I. (Harley scale): PMHx: PAST MEDICAL HISTORY Diagnosis Date A-fib (HCC) February 2021 Asthma Atrial tachycardia (HCC) 10/14/2018 BPPV (benign paroxysmal positional vertigo) 10/30/2014 Degenerative disc disease 08/10/2014 Mild Degenerative disc disease C6-C7 Mild Anterolisthesis C7-T-1`- See scanned document Essential hypertension, benign Fibromyalgia Glaucoma, open angle Hypothyroidism 10/14/2018 Varicose veins 08/25/2014 Varicose veins of other sites Venous stasis ulcer of ankle 07/18/2013 Vestibular neuronitis Vitamin D deficiency 09/20/2013 PSHx: PAST SURGICAL HISTORY Procedure Laterality Date ARTHRP TEMPOROMANDIBULAR JOINT W/WO AUTOGRAFT 1987 CATARACT SURGERY, COMPLEX 2005 Rt AND Lt COLONOSCOPY FLX DX W/COLLJ SPEC WHEN PFRMD 11/08/2010 Colonoscopy COLONOSCOPY FLX DX W/COLLJ SPEC WHEN PFRMD 08/23/2019 WC-RLonnie Cebul repeat is not recommended NEUROPLASTY AND/TRANSPOS MEDIAN NRV CARPAL TUNNE 1990 Carpal tunnel decomp-bilateral PAST SURGICAL HISTORY OF 08-21-05 EXCISION CYST LEFT MIDDLE FINGER PAST SURGICAL HISTORY OF right foot surgery- mortons neuroma PAST SURGICAL HISTORY OF 2013 left foot vein ablatio (more content not included)... Normal [facility] CNPNon 10-26-2024 [facility] Telephone (GERIWR) -- CADY BERUMEN ([id number]) 1945 F Date Time Provider Department 10/26/24 MOON TEIXEIRA During your visit today, we recorded the following information about you: Mago Cerrato LPN 10/26/2024 3:15 PM Signed Faxed order, face sheet and CAMRON to [facility] for patient. Mago Cerrato LPN October 26, 2024 3:15 PM Allergies As of Date: 10/26/2024 Noted Allergy Reaction FRAGRANCES 11/28/2014 3 - Cough 12 - Shortness of Breath BENZODIAZEPINES 09/08/2014 1 - Mental Status Change Comments: Pt sees colors and laughing CATS 11/28/2014 9 - Itching 12 - Shortness of Breath Comments: Eventual wheezing DUST MITES 11/28/2014 14 - Other: See Comments Comments: Positive allergy test GRASS POLLEN-DONNA, STANDARD 11/28/2014 9 - Itching Comments: Nasal congestion MOLD 11/28/2014 9 - Itching Comments: Nasal congestion SEASONAL ALLERGIES 11/08/2010 3 - Cough SULFA (SULFONAMIDE ANTIBIOTICS) 06/13/2005 9 - Itching TREES 11/28/2014 9 - Itching Comments: Nasal congestion VALIUM (DIAZEPAM) 09/23/2013 5 - Intolerance Comments: Laughing hysterically, ultra sensitive ZITHROMAX (AZITHROMYCIN) 06/08/2019 14 - Other: See Comments Comments: nausea Date Reviewed: 10/26/2024 Reviewed by: Mago Cerrato LPN - Fully Assessed Reason for Visit: Orders [651] Cmt: Physical therapy Prescriptions as of 10/26/2024 - furosemide (LASIX) 20 mg tablet Take 20 mg by mouth once daily. - melatonin 1 mg subl Dissolve 1 tablet under the tongue once daily. - baclofen 10 mg tablet Take 1 tablet by mouth three times a day as needed (muscle spasms). - Boswellia cecile extract (BOSWELLIA CECILE XT, BULK,) 70 % powd 1 Each two times a day. - metoprolol tartrate, short acting, (LOPRESSOR) 25 mg tablet Take 12.5 mg by mouth as needed. Takes as needed for rapid HR - timolol maleate (TIMOPTIC) 0.5 % ophthalmic solution Use 1 Drop in both eyes twice daily. - warfarin (COUMADIN) 5 mg tablet Take 1 tablet by mouth daily except 7.5mg on ( [facility]) - ALPHA LIPOIC ACID ORAL Take by mouth. - Cholecalciferol, Vitamin D3, 50 mcg (2,000 unit) cap Take 2 capsules by mouth once daily. - COQ10, UBIQUINOL, ORAL Take 30 mg by mouth. - latanoprost (XALATAN) 0.005 % ophthalmic solution Use 1 Drop in both eyes daily at bedtime. Meds Comments as of 05/10/2015: Does not take antivert, ibuprofen, aleve. Does take boswelia frankincense and white willow. Problem List As Of Date 10/26/2024 Noted Resolved ALLERGIC RHINITIS NOS [J30.9] 06/19/2004 WOUND (NOT COMPLICATED) - OPEN FINGER(S) [S61.*06/14/2005 10/08/2014 GANGLION JOINT (Mucous cyst left hand 3rd digit*08/07/2005 10/08/2014 GENERAL OSTEOARTHROSIS [M15.9] 11/23/2006 Abdominal pain, unspecified site [R10.9] 11/23/2006 10/08/2014 Lumbago [M54.50] 11/16/2008 10/08/2014 Rectal bleeding [K62.5] 09/06/2010 10/08/2014 Cellulitis [L03.90] 06/24/2013 10/08/2014 Ulcer of ankle (HCC) [L97.309] 06/24/2013 10/08/2014 Venous stasis ulcer of right ankle limited to b*07/18/2013 06/09/2023 Vitamin D deficiency [E55.9] 09/20/2013 Frequency of urination [R35.0] 03/01/2014 10/08/2014 Urgency of urination [R39.15] 03/01/2014 10/08/2014 Nocturia [R35.1] 03/01/2014 Hesitancy of micturition [R39.11] 03/01/2014 Varicose veins of right lower extremity [I83.91]08/25/2014 BPPV (benign paroxysmal positional vertigo) [H8*10/30/2014 Vertigo of central origin [H81.4] 12/11/2014 Peripheral vertigo, unspecified [H81.399] 12/11/2014 Sprain of sacroiliac joint [S33.6XXA] 11/06/2015 Irritable bowel syndrome with both constipation*11/06/2015 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] 08/14/2017 Varicose veins of left lower extremity with dixon*03/03/2018 Asthma [J45.909] 04/20/2018 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*06/16/2018 Paroxysmal atrial tachycardia (HCC) [I47.19] 11/29/2018 Severe episode of recurrent major depressive di*11/29/2018 Paroxysmal atrial fibrillation (HCC) [I48.0] 02/04/2019 Essential hypertension [I10] SOB (shortness of breath) [R06.02] 12/23/2021 Bilateral carotid artery stenosis [I65.23] 03/21/2024 Encounter Status:Closed by MGAO CERRATO on 10/26/24 [facility] CNOVon 10-21-2024 CNOV Office Visit (INTMWS ) -- CADY BERUMEN ([id number]) 1945 F Date Time Provider Department 10/21/24 11:00 AM JOSÉ MIGUEL SALDAÑA INTTELMA During your visit today, we recorded the following information about you: Pulse Respiration Blood pressure Weight 60/minute 16/minute 128/80 73.9 kg José Miguel Saldaña APRN.CNP 10/21/2024 12:36 PM Signed CC: Patient presents with: Balance: Balance concerns HPI Cady Berumen is a 78 year old female who presents today for hosptial follow-up. Facility: [facility] Date of visit: 09/26/24 Reason for visit: palpitations, shortness of breath, dizziness and balance issues Hospital course: blood work unremarkable. Rate controlled a-flutter but spontaneously converted to SR, Diagnosis: palpitations Discharge: f/u with cardiology Current symptoms: Has been following with cardiology and appears to remain in SR. Has been started on daily lasix as her BNP remained slightly elevated and has an ECHO scheduled for later next month. Palpitations and shortness of breath has improved. No chest pain or edema noted. History of vestibular neuritis in her right ear over 10 years ago that has effected her balance since. Has had to use vestibular therapy in the past for this which was very helpful in dealing with this. Last May had mechanical fall hitting left side of her face on cement. Brain CT in ER was negative for bleed. Has noticed worsened balance since this has occurred and often running into things on her left side. Has noticed some short term forgetfulness. Does not forget who she is or where she is. No concern with forgetting tasks or how to do things but feels like it takes longer to complete tasks and forgets why she walks into rooms sometimes. Denies weakness, numbness, confusion, recurrent illnesses, N/V/bowel changes, persistent/severe headaches, ear pain/drainage, sinus pressure, cough, wheezing, fever, chills, vision changes, or any urinary concerns. Sees optometry regularly due to glaucoma without any recent concern. REVIEW OF SYSTEMS See HPI PAST MEDICAL HISTORY Diagnosis Date A-fib (HCC) February 2021 Asthma Atrial tachycardia (HCC) 10/14/2018 BPPV (benign paroxysmal positional vertigo) 10/30/2014 Degenerative disc disease 08/10/2014 Mild Degenerative disc disease C6-C7 Mild Anterolisthesis C7-T-1`- See scanned document Essential hypertension, benign Fibromyalgia Glaucoma, open angle Hypothyroidism 10/14/2018 Varicose veins 08/25/2014 Varicose veins of other sites Venous stasis ulcer of ankle 07/18/2013 Vestibular neuronitis Vitamin D deficiency 09/20/2013 PAST SURGICAL HISTORY Procedure Laterality Date ARTHRP TEMPOROMANDIBULAR JOINT W/WO AUTOGRAFT 1987 CATARACT SURGERY, COMPLEX 2005 Rt AND Lt COLONOSCOPY FLX DX W/COLLJ SPEC WHEN PFRMD 11/08/2010 Colonoscopy COLONOSCOPY FLX DX W/COLLJ SPEC WHEN PFRMD 08/23/2019 CROW Estrella repeat is not recommended NEUROPLASTY AND/TRANSPOS MEDIAN NRV CARPAL TUNNE 1990 Carpal tunnel decomp-bilateral PAST SURGICAL HISTORY OF 08-21-05 EXCISION CYST LEFT MIDDLE FINGER PAST SURGICAL HISTORY OF right foot surgery- mortons neuroma PAST SURGICAL HISTORY OF 2013 left foot vein ablation TONSILLECTOMY PRIMARY/SECONDARY AGE 121961 ALLERGIES Fragrances; Benzodiazepines; Cats; Dust Mites; Grass Pollen-Donna, Standard; Mold; Seasonal Allergies; Sulfa (Sulfonamide Antibiotics); Trees; Valium [Diazepam]; and Zithromax [Azithromycin] MEDICATIONS furosemide (LASIX) 20 mg tablet Take 20 mg by mouth once daily. mirabegron (MYRBETRIQ) 25 mg Tb24 Take 1 tablet by mouth once daily. melatonin 1 mg subl Dissolve 1 tablet under the tongue once daily. escitalopram oxalate (LEXAPRO) 5 mg tablet Take 1 tablet by mouth once daily. Take one pill at night for 7 days and then increase to 2 pills at night baclofen 10 mg tablet Take 1 tablet by mouth three times a day as needed (muscle spasms). rosuvastatin (CRESTOR) 5 mg tablet Take 1 tablet by mouth daily at bedtime. Boswellia cecile extract (BOSWELLIA CECILE XT, BULK,) 70 % powd 1 Each two times a day. prasterone, DHEA, (DHEA ORAL) Take by mouth. 0.15 mg metoprolol tartrate, short acting, (LOPRESSOR) 25 mg tablet Take 25 mg by mouth twice daily. Takes as needed for rapid HR timolol maleate (TIMOPTIC) 0.5 % ophthalmic solution Use 1 Drop in both eyes twice daily. warfarin (COUMADIN) 5 mg tablet Take 1 tablet by mouth daily except 7.5mg on ( [facility]) (Patient taking differently: 7.5 mg daily) ALPHA LIPOIC ACID ORAL Take by mouth. Cholecalciferol, Vitamin D3, 50 mcg (2,000 unit) cap Take 2 capsules by mouth once daily. COQ10, UBIQUINOL, ORAL Take 30 mg by mouth. latanoprost (XALATAN) 0.005 % ophthalmic solution Use 1 Drop in both eyes daily at bedtime. FAMILY HISTORY Problem Relation Age of Onset Heart Father Allergies (more content not included)... Normal [facility] UA DIP, URINE (POC)on 2024 BILIRUBIN UA (POCT) Negative Negative [facility] CLARITY UA (POCT) Clear [facility] COLOR UA (POCT) Yellow [facility] GLUCOSE UA (POCT) Negative Negative mg/dL [facility] Hemoglobin Ql (U) Trace-lysed Abnormal Negative [facility] Interpretation and review of laboratory results Abnormal [facility] KETONE UA (POCT) Negative Negative mg/dL [facility] LEUKOCYTES UA (POCT) Negative Negative [facility] N[facility]ITE UA (POCT) Negative Negative [facility] PH UA (POCT) 6 4.5 - 8.0 [facility] Protein Ql (U) Negative Negative mg/dL [facility] SPECIFIC GRAVITY UA (POCT) <=1.005 Abnormal 1.005 - 1.030 [facility] UROBILINOGEN UA (POCT) 0.2 Normal E.U./dL [facility] Location:[address], [address] [place] [address] POINT OF CARE [facility] Urinalysis complete panel (U )on 10-21-2024 Bacteria LM.HPF (Urine sed) [#/Area] Negative Normal Negative [facility] Comment on above: Order Comment: Speci men Type: URINE SPECIMENOrdering Facility: [facility] Address: [address] [place] [address] Performed By: #### 2 4356-8 ####[facility] LABIA [id number] [place] [address] [place] Bilirubin Ql (U) Negative Normal Negative [facility] Comment on above: Order Comment: Speci men Type: URINE SPECIMENOrdering Facility: [facility] Address: [address] [place] [address] Performed By: #### 2 4356-8 ####[facility] LABIA [id number] [place] [address] [place] Clarity (Unsp spec) Clear Normal Clear [facility] Comment on above: Order Comment: Speci men Type: URINE SPECIMENOrdering Facility: [facility] Address: [address] [place] [address] Performed By: #### 2 4356-8 ####[facility] LABCLIA [id number] [address] [place] [address] [place] [facility] Color (U) Yellow Normal Yellow [facility] Comment on above: Order Comment: Speci men Type: URINE SPECIMENOrdering Facility: [facility] Address: [address] [place] [address] Performed By: #### 2 4356-8 ####[facility] LABCLIA [id number] [address], [address] STATES [facility] Epithelial cells LM.HPF (Urine sed) [#/Area] None Seen Normal [facility] Comment on above: Order Comment: Speci men Type: URINE SPECIMENOrdering Facility: [facility] Address: [address] [place] [address] Performed By: #### 2 4356-8 ####[facility] LABCLIA [id number] [address], [facility] Glucose Test strip (U) [Mass/Vol] Negative Normal Negative [facility] Comment on above: Order Comment: Speci men Type: URINE SPECIMENOrdering Facility: [facility] Address: [address] [place] [address] Performed By: #### 2 4356-8 ####[facility] LABCLIA [id number] [facility] [address] [place] [address] [place] Hemoglobin Ql (U) Negative Normal Negative [facility] Comment on above: Order Comment: Speci men Type: URINE SPECIMENOrdering Facility: [facility] Address: [address] [place] [address] Performed By: #### 2 4356-8 ####[facility] LABCLIA [id number] [facility] [address] [place] [address] [place] Hyaline casts (Urine sed) [#/Area] 0 /[LPF] Normal 0 /LPF [facility] Comment on above: Order Comment: Speci men Type: URINE SPECIMENOrdering Facility: [facility] Address: [address] [place] [address] Performed By: #### 2 4356-8 ####[facility] LABCLIA [id number] [place] [id number] [place] Ketones Ql (U) Negative Normal Negative [facility] Comment on above: Order Comment: Speci men Type: URINE SPECIMENOrdering Facility: [facility] Address: [address] [place] [address] Performed By: #### 2 4356-8 ####[facility] LABCLIA [id number] [place] [address] [place] Leukocyte esterase Test strip Ql (U) Negative Normal Negative [facility] Comment on above: Order Comment: Speci men Type: URINE SPECIMENOrdering Facility: [facility] Address: [address] [place] [address] Performed By: #### 2 4356-8 ####[facility] LABCLIA [id number] [place] [address] [place] Nitrite Ql (U) Negative Normal Negative [facility] Comment on above: Order Comment: Speci men Type: URINE SPECIMENOrdering Facility: [facility] Address: [address] [place] [address] Performed By: #### 2 4356-8 ####[facility] LABCLIA [id number] [place] [id number] [place] pH (U) 7.0 [pH] Normal <8.5 [facility] Comment on above: Order Comment: Speci men Type: URINE SPECIMENOrdering Facility: [facility] Address: [address] [place] [address] Performed By: #### 2 4356-8 ####[facility] LABCLIA [id number] [place] [address] [place] Protein (U) [Mass/Vol] Negative Normal Negative [facility] Comment on above: Order Comment: Speci men Type: URINE SPECIMENOrdering Facility: [facility] Address: [address] [place] [address] Performed By: #### 2 4356-8 ####[facility] LABCLIA [id number] [place] [address] [place] RBC LM.HPF (Urine sed) [#/Area] 0-2 /HPF Normal 0-2 /HPF [facility] Comment on above: Order Comment: Speci men Type: URINE SPECIMENOrdering Facility: [facility] Address: [address] [place] [address] Performed By: #### 2 4356-8 ####[facility] LABIA [id number] [place] [address] [place] Specific gravity (U) [Rel density] 1.007 Normal 1.005-1.03 0 [facility] Comment on above: Order Comment: Speci men Type: URINE SPECIMENOrdering Facility: [facility] Address: [address] [place] [address] Performed By: #### 2 4356-8 ####[facility] LABIA [id number] [address] [place] Urobilinogen Ql (U) 0.2 EU/dL Normal 0.2-1.0 EU/dL [facility] Comment on above: Order Comment: Speci men Type: URINE SPECIMENOrdering Facility: [facility] Address: [address] [place] [address] Performed By: #### 2 4356-8 ####[facility] LABCLIA [id number] [place] [address] [place] WBC LM.HPF (Urine sed) [#/Area] 0-5 /HPF Normal 0-5 /HPF [facility] Comment on above: Order Comment: Speci men Type: URINE SPECIMENOrdering Facility: [facility] Address: [address] [place] [address] Performed By: #### 2 4356-8 ####[facility] LABCLIA [id number] [place] [address] [place] 12 Lead EKG performed by [facility] on 10-13-2024 12 Lead EKG performed by [address] [address] 12 Lead EKG performed by [facility] 10/13/24 1136 MR#: [id number] Acct: [id number] Name: CADY BERUMEN Rep #: [id number] : 1945 78 From: Yinka Lovelace MD Attending Dr: Dr. Yinka Lovelace MD Status: DE P AMB Ordering Dr: Yinka Lovelace MD Date: 10/13/24 [place] [facility] Sex: F C Admitted: BMS/12 Lead EKG performed by [facility] ECG Report Interpretation Sinus Bradycardia - occasional PAC # PACs = 1.WITHIN NORMAL LIMITSElectronically signed on 10/13/2024 at 12:[address] Lovel[address] [employer] Version [id number] 10/13/24 1225 Date Yinka Lovelace MD CC: Dr. Moon Teixeira MD Date Dictated: 10/13/24 1136 Date Transcribed: 10/13/241135 Audit Director: Signed Normal [facility] BNP (brain natriuretic pepti de measurement)Ordered By: Yinka Lovelace on 10-13-2024 Natriuretic peptide B (Bld) [Mass/Vol] 146.7 pg/mL High 0-100 [facility] BNP,B-Type NATRIURETIC PEPTI John 10-13-2024 Natriuretic peptide B (Bld) [Mass/Vol] 146.7 pg/mL High 0-100 [facility] Comment on above: Performed By: #### L 501.5200, L500.2500, L501.9520, L100.0100 #### [facility] [address] [place], [address] Cardiology Visit Reporton Cardiology Visit Report [facility] [address] [place] [address] OFFICE VISIT Date of Service: 10/13/24 MR#: [id number] Acct: [id number] Name: CDAY BERUMEN Rep #: [id number] : 1945 Provider: Dr. Yinka jiang MD Age/Sex: 78/F [place] [facility] Status: Signed HPI HPI History of Present Illness Details: Patient is 78-year-old white female is being seen urgently in the office today. Patient carries a history of paroxysmal atrial fibrillation she was evaluated in the emergency department at [facility] on September 26, 2024. She was in atrial fibrillation with a rapid ventricular response with a heart rate of 100 210 bpm. The patient was being readied for cardioversion when she spontaneously converted to sinus rhythm. Historically the patient has used the pill in the pocket with 12.5 mg of metoprolol tartrate to convert her self in her home environment. She has not been on rate modulating drugs due to resting heart rates in the 50 bpm range. The patient does have a loop recorder embedded that has been in place for 2 years that is monitored through the [facility] and Dr. Mynor Shirley. She is due to see Dr. Pena next month. The patient is under a tremendous amount of stress she has had a couple of deaths in the family recently and had to move out of her house and is now in financial distress. She is living with her daughter who has her own medical issues. The patient has had a history of elevated TSH is in the past however recently on October 11, 2024 we evaluated her she had normal electrolytes normal creatinine 0.74, TSH normal, and her INR was 2.9 as she is on chronic Coumadin therapy for her paroxysmal atrial fibs. The patient has primary complaint of shortness of breath that occurs with minimal activity. Historically the patient's EF has been in the 55% range last echocardiogram was February 2024. However she does report that her shortness of breath has become much more prominent with the added stressors in her life since that time. The patient denies any lower extremity edema. She does have a history of moderate tricuspid and pulmonic regurgitation she had a negative evaluation for sleep apnea. The patient had called in the office complaining of this shortness of breath and PND and orthopnea. We gave her 5 days of Lasix she says in retrospect she believes it made her better although she is not really certain. Her BNP when she was in atrial fibrillation in the ER was 240 on September 26. I am rechecking her BNP today after the 5 days of Lasix earlier this month. The patient denies any chest pain she denies any lower extremity edema she does have chronic venous stasis disease and varicose veins with significant hyperpigmentation of both feet. She has undergone multiple venous ablations of her lower extremities. 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: No Accompanied by: Self Is patient in pain?: No Allergies cat dander Allergy (Mild, Verified 10/13/24 11:30) congestion grass pollen Allergy (Mild, Verified 10/13/24 11:30) Cough, rhinitis house dust Allergy (Mild, Verified 10/13/24 11:30) Cough, rhinitis mold Allergy (Mild, Verified 10/13/24 11:30) Cough, rhinitis tree and shrub pollen Allergy (Mild, Verified 10/13/24 11:30) Cough, rhinitis Sulfa (Sulfonamide Antibiotics) Allergy (Verified 10/13/24 11:30) Itching losartan Adverse Reaction (Severe, Verified 10/13/24 11:30) dizziness, severe amlodipine Adverse Reaction (Intermediate, Verified 10/13/24 11:30) dizziness lisinopril Adverse Reaction (Intermediate, Verified 10/13/24 11:30) Nagging dry cough Benzodiazepines Adverse Reaction (Verified 10/13/24 11:30) Other diazepam (From Valium) Adverse Reaction (Verified 10/13/24 11:30) Other Medications ???Medication ???Instructions ???Recorded ???Confirmed ???Type cholecalciferol (vitamin D3) 25 1,000 unit PO BID vitamin 03/10/16 10/13/24 History mcg (1,000 unit) tablet latanoprost 0.005 % eye drops 1 drp EACH EYE [facility] eye health 02/2110/13/24 History coenzyme Q10 50 mg chewable tablet 30 mg PO DAILY 06/07/19 10/13/24 History warfarin 5 mg tablet 7.5 mg PO DAILY #135 tabs 12/28/23 10/13/24 Rx metoprolol tartrate 25 mg tablet 12.5 mg (1/2 x 25 mg) PO BID PRN 0 09/09/24 10/13/24 Rx afib #180 tabs timolol maleate 0.5 % eye drops 1 drp ophthalmic (eye) BID 5 10/13/24 History Ejection fraction %: 55 Have you fallen in the past year?: Yes [facility] Medical History (Reviewed 09/25 (more content not included)... Normal [facility] Basic Metabolic Profile (BMP )on 10-11-2024 BUN/CRE 27.2 RATIO High 10-20 [facility] Comment on above: Performed By: #### L 501.5200, L500.2500, L501.9520, L100.0100 #### [facility] [address] [place], [address] CA,Total 9.2 mg/dL Normal 8.5-10.1 [facility] Comment on above: Performed By: #### L 501.5200, L500.2500, L501.9520, L100.0100 #### [facility] [address] [place], [address] Chloride [Moles/Vol] 106 mmol/L Normal 98-107 [facility] Comment on above: Performed By: #### L 501.5200, L500.2500, L501.9520, L100.0100 #### [facility] [address] [place], [address] CO2 [Moles/Vol] 28.0 mmol/L Normal 21.0-32.0 [facility] Comment on above: Performed By: #### L 501.5200, L500.2500, L501.9520, L100.0100 #### [facility] [address] [place], [address] Creatinine [Mass/Vol] 0.74 mg/dL Normal 0.55-1.02 [facility] Comment on above: Result Comment: The validity of the calculated GFR GFRAA in patients over 70 years has not been determined. Clinical correlation is essential. Performed By: #### L 501.5200, L500.2500, L501.9520, L100.0100 #### [facility] [address] [place], [address] EST GFR - AA 98 mL/min Normal >60 [facility] Comment on above: Result Comment: Afri can [place] GFR Calc Performed By: #### L 501.5200, L500.2500, L501.9520, L100.0100 #### [facility] [address] [place], [address] GAP 5 Normal 5-15 [facility] Comment on above: Performed By: #### L 501.5200, L500.2500, L501.9520, L100.0100 #### [facility] [address] [place], [address] GFR/1.73 sq M.predicted among non-blacks MDRD (S/P/Bld) [Vol rate/Area] 81 mL/min/{1.73_m2} Normal >60 [facility] Comment on above: Result Comment: Non- GFR Calc Performed By: #### L 501.5200, L500.2500, L501.9520, L100.0100 #### [facility] [address] [place], [address] Glucose [Mass/Vol] 94 mg/dL Normal 74-106 [facility] Comment on above: Performed By: #### L 501.5200, L500.2500, L501.9520, L100.0100 #### [facility] [address] [place], [address] Potassium [Moles/Vol] 4.9 mmol/L Normal 3.5-5.1 [facility] Comment on above: Performed By: #### L 501.5200, L500.2500, L501.9520, L100.0100 #### [facility] [address] [place], [address] Sodium [Moles/Vol] 139 mmol/L Normal 136-145 [facility] Comment on above: Performed By: #### L 501.5200, L500.2500, L501.9520, L100.0100 #### [facility] [address] [place], [address] Urea nitrogen [Mass/Vol] 20 mg/dL High 7-18 [facility] Comment on above: Performed By: #### L 501.5200, L500.2500, L501.9520, L100.0100 #### [facility] [address] [place], [address] Blood urea nitrogen (BUN)/cr eatinine ratioOrdered By: Yinka Lovelace on 10-11-2024 Urea nitrogen/Creatinine [Mass ratio] 27.2 mg/mg High 10-20 [facility] Carbon dioxide measurementOr dered By: Yinka Lovelace on 10-11-2024 CO2 [Moles/Vol] 28.0 mmol/L 21.0-32.0 [facility] Chloride measurementOrdered By: Yinka Lovelace on 10-11-2024 Chloride [Moles/Vol] 106 mmol/L 98-107 [facility] Estimated glomerular filtrat ion rate (GFR) AmericanOrdered By: Yinka Lovelace on 10-11-2024 Estimated GFR (MDRD) Amer 98 mL/min >60 [facility] Comment on above: GFR Calc Glomerular filtration rate ( GFR) estimationOrdered By: Yinka Lovelace on 10-11-2024 Estimated GFR (MDRD) Non-Af Amer 81 mL/min >60 [facility] Comment on above: Non- GFR Calc GFR/1.73 sq M.predicted among non-blacks MDRD (S/P/Bld) [Vol rate/Area] 81 mL/min/{1.73_m2} >60 [facility] Comment on above: Non- GFR Calc Glucose measurementOrdered B y: Yinka Lovelace on 10-11-2024 Glucose [Mass/Vol] 94 mg/dL 74-106 [facility] [employer] normalized rat io (INR) calculationOrdered By: Yinka Lovelace on 10-11-2024 INR Coag (Bld) [Relative time] 2.9 {INR} [facility] Potassium measurementOrdered By: Yinka Lovelace on 10-11-2024 Potassium [Moles/Vol] 4.9 mmol/L 3.5-5.1 [facility] Prothrombin Time w/INRon INR Coag (PPP) [Relative time] 2.9 {INR} Normal [facility] Comment on above: Performed By: #### L 501.5200, L500.2500, L501.9520, L100.0100 #### [facility] [address] [place], [address] PT Coag (PPP) [Time] 31.2 s High 11.7-14.9 [facility] Comment on above: Performed By: #### L 501.5200, L500.2500, L501.9520, L100.0100 #### [facility] [address] [place], [address] Prothrombin timeOrdered By: Yinka Lovelace on 10-11-2024 PT Coag (PPP) [Time] 31.2 s High 11.7-14.9 [facility] Serum anion gap measurementO rdered By: Yinka Lovelace on 10-11-2024 Anion gap [Moles/Vol] 5 mmol/L 5-15 [facility] Serum or plasma calcium ayanna urement (mass/volume)Ordered By: Yinka Lovelace on 10-11-2024 Calcium [Mass/Vol] 9.2 mg/dL 8.5-10.1 [facility] Serum or plasma creatinine m easurement (mass/volume)Ordered By: Yinka Lovelace on 10-11-2024 Creatinine [Mass/Vol] 0.74 mg/dL 0.55-1.02 [facility] Comment on above: The validity of the calculated GFR & GFRAA in patients over 70 years has not been determined. Clinical correlation is essential. Serum or plasma thyroid stim ulating hormone (TSH) measurement (units/volume)Ordered By: Yinka Lovelace on 10-11-2024 TSH Qn 2.520 uIU/mL 0.358-3.74 0 [facility] Serum or plasma urea nitroge n measurement (mass/volume)Ordered By: Yinka Lovelace on 10-11-2024 Urea nitrogen [Mass/Vol] 20 mg/dL High 03-10 [facility] Sodium levelOrdered By: Jacques Lovelace on 10-11-2024 Sodium [Moles/Vol] 139 mmol/L 136-145 [facility] TSH QnOrdered By: Yinka cain on 10-11-2024 Thyroid Stimulating Hormone (TSH) 2.520 uIU/mL 0.358-3.74 0 [facility] Thyroid Stim Hormone (TSH)on 10-11-2024 TSH 2.520 uIU/mL Normal 0.358-3.74 0 [facility] Comment on above: Performed By: #### L 501.5200, L500.2500, L501.9520, L100.0100 #### [facility] [address] [place], [address] Basic Metabolic Profile (BMP )on 10-07-2024 BUN Normal 03-10 [facility] Comment on above: Order Comment: Comme nts: TSH elevated in March, atrial flutterTSH elevated in March, atrial flutter Result Comment: RENÉE ENT LEFT BEFORE GETTING DRAW DONE Performed By: #### L 300.3900, L500.2500 ####[facility] [address] [place], [address] BUN/CRE Normal 10-20 [facility] Comment on above: Order Comment: Comme nts: TSH elevated in March, atrial flutterTSH elevated in March, atrial flutter Result Comment: RENÉE ENT LEFT BEFORE GETTING DRAW DONE Performed By: #### L 300.3900, L500.2500 ####[facility] [address] [place], [address] CA,Total Normal 8.5-10.1 [facility] Comment on above: Order Comment: Comme nts: TSH elevated in March, atrial flutterTSH elevated in March, atrial flutter Result Comment: RENÉE ENT LEFT BEFORE GETTING DRAW DONE Performed By: #### L 300.3900, L500.2500 ####[facility] [address] [place], [address] CL Normal 98-107 [facility] Comment on above: Order Comment: Comme nts: TSH elevated in March, atrial flutterTSH elevated in March, atrial flutter Result Comment: RENÉE ENT LEFT BEFORE GETTING DRAW DONE Performed By: #### L 300.3900, L500.2500 ####[facility] [address] [place], [address] CO2 Normal 21.0-32.0 [facility] Comment on above: Order Comment: Comme nts: TSH elevated in March, atrial flutterTSH elevated in March, atrial flutter Result Comment: RENÉE ENT LEFT BEFORE GETTING DRAW DONE Performed By: #### L 300.3900, L500.2500 ####[facility] [address] [place], [address] CREAT,SERUM Normal 0.55-1.02 [facility] Comment on above: Order Comment: Comme nts: TSH elevated in March, atrial flutterTSH elevated in March, atrial flutter Result Comment: RENÉE ENT LEFT BEFORE GETTING DRAW DONE Performed By: #### L 300.3900, L500.2500 ####[facility] [address] [place], [address] EST GFR Normal >60 [facility] Comment on above: Order Comment: Comme nts: TSH elevated in March, atrial flutterTSH elevated in March, atrial flutter Result Comment: RENÉE ENT LEFT BEFORE GETTING DRAW DONE Performed By: #### L 300.3900, L500.2500 ####[facility] [address] [place], [address] EST GFR - AA Normal >60 [facility] Comment on above: Order Comment: Comme nts: TSH elevated in March, atrial flutterTSH elevated in March, atrial flutter Result Comment: RENÉE ENT LEFT BEFORE GETTING DRAW DONE Performed By: #### L 300.3900, L500.2500 ####[facility] [address] [place], [address] GAP Normal 5-15 [facility] Comment on above: Order Comment: Comme nts: TSH elevated in March, atrial flutterTSH elevated in March, atrial flutter Result Comment: RENÉE ENT LEFT BEFORE GETTING DRAW DONE Performed By: #### L 300.3900, L500.2500 ####[facility] [address] [place], [address] GLU Normal 74-106 [facility] Comment on above: Order Comment: Comme nts: TSH elevated in March, atrial flutterTSH elevated in March, atrial flutter Result Comment: RENÉE ENT LEFT BEFORE GETTING DRAW DONE Performed By: #### L 300.3900, L500.2500 ####[facility] [address] [place], [address] Potassium Normal 3.5-5.1 [facility] Comment on above: Order Comment: Comme nts: TSH elevated in March, atrial flutterTSH elevated in March, atrial flutter Result Comment: RENÉE ENT LEFT BEFORE GETTING DRAW DONE Performed By: #### L 300.3900, L500.2500 ####[facility] [address] [place], [address] Basic Metabolic Profile (BMP) Normal 136-145 [facility] Comment on above: Order Comment: Comme nts: TSH elevated in March, atrial flutterTSH elevated in March, atrial flutter Result Comment: RENÉE ENT LEFT BEFORE GETTING DRAW DONE Performed By: #### L 300.3900, L500.2500 ####[facility] [address] [place], [address] CBC W/Diff, Automatedon 09-24 Absolute Neut Normal 2.0-7.7 [facility] Comment on above: Result Comment: PT L EFT BEFORE GETTING DRAW DONE Performed By: #### L 100.0100 ####[facility] [address] [place], [address] HCT Normal 37-47 [facility] Comment on above: Result Comment: PT L EFT BEFORE GETTING DRAW DONE Performed By: #### L 100.0100 ####[facility] [address] [place], [address] HGB Normal 12.0-15.0 [facility] Comment on above: Result Comment: PT L EFT BEFORE GETTING DRAW DONE Performed By: #### L 100.0100 ####[facility] [address] [place], [address] MCH Normal 27.0-32.0 [facility] Comment on above: Result Comment: PT L EFT BEFORE GETTING DRAW DONE Performed By: #### L 100.0100 ####[facility] [address] [place], [address] MCHC Normal 32-36 [facility] Comment on above: Result Comment: PT L EFT BEFORE GETTING DRAW DONE Performed By: #### L 100.0100 ####[facility] [address] [place], [address] MCV Normal 81-99 [facility] Comment on above: Result Comment: PT L EFT BEFORE GETTING DRAW DONE Performed By: #### L 100.0100 ####[facility] [address] [place], [address] NEUT% Normal 47-70 [facility] Comment on above: Result Comment: PT L EFT BEFORE GETTING DRAW DONE Performed By: #### L 100.0100 ####[facility] [address] [place], [address] PLT Normal 150-450 [facility] Comment on above: Result Comment: PT L EFT BEFORE GETTING DRAW DONE Performed By: #### L 100.0100 ####[facility] [address] [place], [address] RBC Normal 4.2-5.4 [facility] Comment on above: Result Comment: PT L EFT BEFORE GETTING DRAW DONE Performed By: #### L 100.0100 ####[facility] [address] [place], [address] RDW CV Normal 11.6-14.6 [facility] Comment on above: Result Comment: PT L EFT BEFORE GETTING DRAW DONE Performed By: #### L 100.0100 ####[facility] [address] [place], [address] RDW SD Normal 35.1-43.9 [facility] Comment on above: Result Comment: PT L EFT BEFORE GETTING DRAW DONE Performed By: #### L 100.0100 ####[facility] [address] [place], [address] WBC Normal 4.4-11.0 [facility] Comment on above: Result Comment: PT L EFT BEFORE GETTING DRAW DONE Performed By: #### L 100.0100 ####[facility] [address] [place], [address] Prothrombin Time w/INRon INR Normal [facility] Comment on above: Order Comment: Comme nts: Do this along with BMP and TSH Result Comment: RENÉE ENT LEFT BEFORE GETTING DRAW DONE Performed By: #### L 300.3900, L500.2500 ####[facility] [address] [place], [address] PROTIME Normal 11.7-14.9 [facility] Comment on above: Order Comment: Comme nts: Do this along with BMP and TSH Result Comment: RENÉE ENT LEFT BEFORE GETTING DRAW DONE Performed By: #### L 300.3900, L500.2500 ####[facility] [address] [place], [address] 12 Lead EKGon 09-26-2024 12 Lead EKG [facility] [address] [place] [address] 12 Lead EKG 09/26/24 1309 MR#: [id number] Acct: [id number] Name: CADY BERUMEN Rep #: [id number] : 1945 78 From: Dominguez Garsia MD Attending Dr: Status: DEP ER Ordering Dr: Angel Wilkes Date: 09/26/24 Location: ED Sex: F C Admitted: Test Reason : EKGA Blood Pressure : */* mmHG Vent. Rate : 89 BPM Atrial Rate : * BPM P-R Int : * ms QRS Dur : 72 ms QT Int : 334 ms P-R-T Axes : * 201 139 degrees QTcB Int : 406 ms Poor data quality, interpretation may be adversely affected Atrial fibrillation Right superior axis deviation Abnormal ECG Confirmed by SUN BAILEY, DOMINGUEZ ([id number]), proposal editor MEGAN GUTIERREZ ([id number]) on 09/27/2024 8:49:56 AM Referred By: UG Confirmed By: DOMINGUEZ GARSIA MD 09/27/24 0850 Date Dominguez Garsia MD CC: RADIAL DRILL OPERATOR FOR PLASTIC-C Angel Wilkes; Dr. Moon Teixeira MD; Dr. Pedro Gusman MD Signed Normal [facility] 12 Lead EKG [facility] [address] [place] [address] 12 Lead EKG 09/26/24 1509 MR#: [id number] Acct: [id number] Name: CADY BERUMEN Rep #: [id number] : 1945 78 From: Dominguez Garsia MD Attending Dr: Status: DEP ER Ordering Dr: Angel Wilkes Date: 09/26/24 Location: ED Sex: F C Admitted: Test Reason : REPEAT Blood Pressure : */* mmHG Vent. Rate : 67 BPM Atrial Rate : 67 BPM P-R Int : 188 ms QRS Dur : 74 ms QT Int : 382 ms P-R-T Axes : 59 -19 45 degrees QTcB Int : 403 ms Sinus rhythm with Premature atrial complexes Otherwise normal ECG Confirmed by SUN BAILEY, DOMINGUEZ ([id number]), proposal editor MEGAN GUTIERREZ ([id number]) on 09/27/2024 8:47:53 AM Referred By: UG Confirmed By: DOMINGUEZ GARSIA MD 09/27/24 0847 Date Dominguez Garsia MD CC: GELY-Triny Wilkes; Dr. Moon Teixeira MD; Dr. Pedro Gusman MD Signed Normal [facility] Absolute lymphocyte countOrd ered By: Angel Wilkes on 09-26-2024 Lymphocytes Auto (Unsp spec) [#/Vol] 1.51 10*3/uL 0.83-4.51 [facility] Absolute neutrophil countOrd ered By: Angel Wilkes on 09-26-2024 Neutrophils (Bld) [#/Vol] 4.5 10*3/uL 2.0-7.7 [facility] Automated lymphocyte count a s percentage of total leukocytesOrdered By: Angel Wilkes on 09-26-2024 Lymphocytes/100 WBC Auto (Unsp spec) 21.7 % 19-41 [facility] BNP (brain natriuretic pepti de measurement)Ordered By: Angel Wilkes on 09-26-2024 Natriuretic peptide B (Bld) [Mass/Vol] 240.3 pg/mL High 0-100 [facility] BNP,B-Type NATRIURETIC PEPTI John 09-26-2024 Natriuretic peptide B (Bld) [Mass/Vol] 240.3 pg/mL High 0-100 [facility] Comment on above: Performed By: #### L 503.6620, L300.3900 ####[facility] [address] [place], [address] Basic Metabolic Profile (BMP )on 09-26-2024 BUN/CRE 29.0 RATIO High 10-20 [facility] Comment on above: Performed By: #### L 501.5200, L500.2500, L501.9520, L100.0100 #### [facility] [address] [place], [address] CA,Total 9.1 mg/dL Normal 8.5-10.1 [facility] Comment on above: Performed By: #### L 501.5200, L500.2500, L501.9520, L100.0100 #### [facility] [address] [place], [address] Chloride [Moles/Vol] 109 mmol/L High 98-107 [facility] Comment on above: Performed By: #### L 501.5200, L500.2500, L501.9520, L100.0100 #### [facility] [address] [place], [address] CO2 [Moles/Vol] 25.0 mmol/L Normal 21.0-32.0 [facility] Comment on above: Performed By: #### L 501.5200, L500.2500, L501.9520, L100.0100 #### [facility] [address] [place], [address] Creatinine [Mass/Vol] 0.86 mg/dL Normal 0.55-1.02 [facility] Comment on above: Result Comment: The validity of the calculated GFR GFRAA in patients over 70 years has not been determined. Clinical correlation is essential. Performed By: #### L 501.5200, L500.2500, L501.9520, L100.0100 #### [facility] [address] [place], [address] ECRCL 56.04 ml/min Normal [facility] Comment on above: Performed By: #### L 501.5200, L500.2500, L501.9520, L100.0100 #### [facility] [address] [place], [address] EST GFR - AA 82 mL/min Normal >60 [facility] Comment on above: Result Comment: Afri can [place] GFR Calc Performed By: #### L 501.5200, L500.2500, L501.9520, L100.0100 #### [facility] [address] [place], [address] GAP 6 Normal 5-15 [facility] Comment on above: Performed By: #### L 501.5200, L500.2500, L501.9520, L100.0100 #### [facility] [address] [place], [address] GFR/1.73 sq M.predicted among non-blacks MDRD (S/P/Bld) [Vol rate/Area] 68 mL/min/{1.73_m2} Normal >60 [facility] Comment on above: Result Comment: Non- GFR Calc Performed By: #### L 501.5200, L500.2500, L501.9520, L100.0100 #### [facility] [address] [place], [address] Glucose [Mass/Vol] 106 mg/dL Normal 74-106 [facility] Comment on above: Result Comment: Fast ing Glucose result from 100 to 125 mg/dL suggests IMPAIRED HOMEOSTASIS per A.D.A. criteria. Performed By: #### L 501.5200, L500.2500, L501.9520, L100.0100 #### [facility] [address] [place], [address] Potassium [Moles/Vol] 4.5 mmol/L Normal 3.5-5.1 [facility] Comment on above: Performed By: #### L 501.5200, L500.2500, L501.9520, L100.0100 #### [facility] [address] [place], [address] Sodium [Moles/Vol] 140 mmol/L Normal 136-145 [facility] Comment on above: Performed By: #### L 501.5200, L500.2500, L501.9520, L100.0100 #### [facility] [address] [place], [address] Urea nitrogen [Mass/Vol] 25 mg/dL High 7-18 [facility] Comment on above: Performed By: #### L 501.5200, L500.2500, L501.9520, L100.0100 #### [facility] [address] [place], [address] Basophil percentageOrdered B y: Angel Wilkes on 09-26-2024 Basophils/100 WBC (Bld) 1.1 % High 0-1 [facility] Blood urea nitrogen (BUN)/cr eatinine ratioOrdered By: Angel Wilkes on 09-26-2024 Urea nitrogen/Creatinine [Mass ratio] 29.0 mg/mg High 10-20 [facility] CBC W/Diff, Automatedon 02-0 Absolute Lymph 1.51 X10 3/uL Normal 0.83-4.51 [facility] Comment on above: Performed By: #### L 501.5200, L500.2500, L501.9520, L100.0100 #### [facility] [address] [place], [address] Absolute Neut 4.5 X10 3/uL Normal 2.0-7.7 [facility] Comment on above: Performed By: #### L 501.5200, L500.2500, L501.9520, L100.0100 #### [facility] [address] [place], [address] Basophils/100 WBC (Bld) 1.1 % High 0-1 [facility] Comment on above: Performed By: #### L 501.5200, L500.2500, L501.9520, L100.0100 #### [facility] [address] [place], [address] Eosinophils/100 WBC (Bld) 2.6 % Normal 0-5 [facility] Comment on above: Performed By: #### L 501.5200, L500.2500, L501.9520, L100.0100 #### [facility] [address] [place], [address] Erythrocyte distribution width (RBC) [Ratio] 13.8 % Normal 11.6-14.6 [facility] Comment on above: Performed By: #### L 501.5200, L500.2500, L501.9520, L100.0100 #### [facility] [address] [place], [address] Hematocrit (Bld) [Volume fraction] 41.9 % Normal 37-47 [facility] Comment on above: Performed By: #### L 501.5200, L500.2500, L501.9520, L100.0100 #### [facility] [address] [place], [address] Hemoglobin (Bld) [Mass/Vol] 13.4 g/dL Normal 12.0-15.0 [facility] Comment on above: Performed By: #### L 501.5200, L500.2500, L501.9520, L100.0100 #### [facility] [address] [place], [address] IG% 0.300 Normal 0.0-0.9 [facility] Comment on above: Result Comment: IG% - Immature Granulocytes (promyelocytes, myelocytes and metamyelocytes) > 1% indicates that a LEFT SHIFT is Present. Performed By: #### L 501.5200, L500.2500, L501.9520, L100.0100 #### [facility] [address] [place], [address] Lymphocytes/100 WBC (Bld) 21.7 % Normal 19-41 [facility] Comment on above: Performed By: #### L 501.5200, L500.2500, L501.9520, L100.0100 #### [facility] [address] [place], [address] MCH (RBC) [Entitic mass] 31.4 pg Normal 27.0-32.0 [facility] Comment on above: Performed By: #### L 501.5200, L500.2500, L501.9520, L100.0100 #### [facility] [address] [place], [address] MCHC (RBC) [Mass/Vol] 32.0 g/dL Normal 32-36 [facility] Comment on above: Performed By: #### L 501.5200, L500.2500, L501.9520, L100.0100 #### [facility] [address] [place], [address] MCV (RBC) [Entitic vol] 98.1 fL Normal 81-99 [facility] Comment on above: Performed By: #### L 501.5200, L500.2500, L501.9520, L100.0100 #### [facility] [address] [place], [address] Monocytes/100 WBC (Bld) 9.2 % Normal 0-10 [facility] Comment on above: Performed By: #### L 501.5200, L500.2500, L501.9520, L100.0100 #### [facility] [address] [place], [address] Neutrophils/100 WBC (Bld) 65.1 % Normal 47-70 [facility] Comment on above: Performed By: #### L 501.5200, L500.2500, L501.9520, L100.0100 #### [facility] [address] [place], [address] Nucleated RBC (Bld) [#/Vol] 0 10*3/uL Normal 0-5 [facility] Comment on above: Performed By: #### L 501.5200, L500.2500, L501.9520, L100.0100 #### [facility] [address] [place], [address] Platelet mean volume (Bld) [Entitic vol] 12.8 fL High 6.2-12.0 [facility] Comment on above: Performed By: #### L 501.5200, L500.2500, L501.9520, L100.0100 #### [facility] [address] [place], [address] Platelets (Bld) [#/Vol] 190 10*3/uL Normal 150-450 [facility] Comment on above: Performed By: #### L 501.5200, L500.2500, L501.9520, L100.0100 #### [facility] [address] [place], [address] RBC (Bld) [#/Vol] 4.27 10*6/uL Normal 4.2-5.4 [facility] Comment on above: Performed By: #### L 501.5200, L500.2500, L501.9520, L100.0100 #### [facility] [address] [place], [address] RDW SD 49.6 fl High 35.1-43.9 [facility] Comment on above: Performed By: #### L 501.5200, L500.2500, L501.9520, L100.0100 #### [facility] [address] [place], [address] WBC (Bld) [#/Vol] 7.0 10*3/uL Normal 4.4-11.0 [facility] Comment on above: Performed By: #### L 501.5200, L500.2500, L501.9520, L100.0100 #### [facility] [address] [place], [address] Carbon dioxide measurementOr dered By: Angel Wilkes on 09-26-2024 CO2 [Moles/Vol] 25.0 mmol/L 21.0-32.0 [facility] Chest 1 View (Portable)on Chest 1 View (Portable) [facility] Services [address] [place] [address] Chest 1 View (Portable) MR#: [id number] Acct: [id number] Name: CADY BERUMEN Rep #: [id number] : 1945 F 78 From: Anneliese Sanford MD PCP: Dr. 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 COMPARISON: No relevant prior studies available. FINDINGS: LUNGS AND PLEURAL SPACES: Unremarkable. No consolidation. No pneumothorax. HEART: Unremarkable. No cardiomegaly. MEDIASTINUM: Unremarkable. Normal mediastinal contour. BONES/JOINTS: Unremarkable. No acute fracture. RAD/Chest 1 View (Portable) IMPRESSION: No acute cardiopulmonary process. Reading Location: [facility] CC: LES Wilkes; Dr. Moon Teixeira MD Audit Director: Signed Normal [facility] Chloride measurementOrdered By: Angel Wilkes on 09-26-2024 Chloride [Moles/Vol] 109 mmol/L High 98-107 [facility] Emergency Department Summary on 09-26-2024 Emergency Department Summary [facility] Medical Records Department [address] [place] [address] Emergency Department Summary 09/26/24 MR#: [id number] Acct: [id number] Name: CADY BERUMEN Rep #: [id number] : 1945 78 From: Pedro Gusman MD PCP: Dr. Moon Teixeira MD Status:DEP ER Location: ED HPI History of Present Illness Chief Complaint: Palpitations Narrative Narrative: Patient is a 78-year-old female with history of hypertension, asthma, sleep apnea, paroxysmal atrial fibrillation on Coumadin who presents to the emerged department for feeling of shortness of breath, dizziness. 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 She is been having the shortness of breath episodes have been ongoing for the last 3 months. Patient notices that when she lays flat, worse when she gets up she feels dizzy and feels more short of breath. She states that she usually has her heart rate at around 50 to 60 bpm, and every time her heart rate gets to 80-90 she takes metoprolol. She states that when her heart rate gets high she feels something in her throat. Today, she was getting out of shower, felt more short of breath than usual and arrived by ambulance. [facility] Medical History Shortness of breath PRAMOD (obstructive sleep apnea) senior care (current) use of 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 Paroxysmal atrial fibrillation Change in bowel habit Asthma Near syncope Atrial tachycardia (10/14/18) Varicose vein of leg Vestibular neuritis Osteopenia Osteoarthritis Chronic venous insufficiency Glaucoma Essential (primary) hypertension Home Medications ???Medication ???Instructions ???Recorded ???Last Taken ???Type cholecalciferol (vitamin D3) 25 1,000 unit PO BID vitamin 03/10/16 10/11/22 History mcg (1,000 unit) tablet latanoprost 0.005 % eye drops 1 drp EACH EYE [facility] eye health 02/2110/11/22 History coenzyme Q10 50 mg chewable tablet 30 mg PO DAILY 06/07/19 10/11/22 History warfarin 5 mg tablet 7.5 mg PO DAILY #135 tabs 12/28/23 Unknown Rx metoprolol tartrate 25 mg tablet 12.5 mg (1/2 x 25 mg) PO BID PRN 0 09/09/24 Unknown Rx afib #180 tabs timolol maleate 0.5 % eye drops 1 drp ophthalmic (eye) BID 5 Unknown History furosemide 20 mg tablet 20 mg PO .COMPLEX #5 tabs 09/27/24 Unknown Rx Allergy/AdvReac Type Severity Reaction Status Date / Time cat dander Allergy Mild congestion Verified 09/26/24 11:46 grass pollen Allergy Mild Cough, Verified 09/26/24 11:46 rhinitis house dust Allergy Mild Cough, Verified 09/26/24 11:46 rhinitis mold Allergy Mild Cough, Verified 09/26/24 11:46 rhinitis tree and shrub pollen Allergy Mild Cough, Verified 09/26/24 11:46 rhinitis Sulfa (Sulfonamide Allergy Itching Verified 09/26/24 11:46 Antibiotics) losartan AdvReac Severe dizziness, Verified 09/26/24 11:46 severe amlodipine AdvReac Intermediate dizziness Verified 09/26/24 11:46 lisinopril AdvReac Intermediate Nagging Verified 09/26/24 11:46 dry cough Benzodiazepines AdvReac Other Verified 09/26/24 11:46 diazepam (From Valium) AdvReac Other Verified 09/26/24 11:46 Family History Father Myocardial infarction from [place] age 61 Heart disease Diabetes Sister Breast cancer Other long term (current) use of 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 Surgical History history vein surgery history TMJ surgery History of cataract surgery S/P excision of Ramos's neuroma History of carpal tunnel release History of tonsillectomy Social History household members: spouse housing: house Smoking Status: Never smoker alcohol intake: current alcohol intake frequency: a few times a month substance use type: does not use what type of physical activity do you participate in: none do you feel safe at home: Yes ROS ROS ED ROS Narrative Constitutional: Negative for fever, chills, weight loss, weakness Eyes: Negative for vision loss, vision change, double vision ENT: Negative for any sore throat, ear pain, congestion Cardiovascular: Negative for any chest pain, tightness. Positive palpitations Respiratory: Negative for any cough, sputum production, hemoptysis. Positive for dyspnea, dyspnea on exertion, orthopnea Gastrointestinal: Negative for any abdominal pain, nausea, vomiting, diarrhea, constipation, blood in stool, blood in vomit : Negative for any urinary frequency, dysuria, retention, blood in urine Muscle skeletal: Negative for any neck pain, back pain Neurological: Negative for any headache, syncope. Positive for dyspnea, positive dyspnea Skin: Negative for any rashes, itching, abrasions, lacerations Ps (more content not included)... Normal [facility] Eosinophil percentageOrdered By: Angel Wilkes on 09-26-2024 Eosinophils/100 WBC (Bld) 2.6 % 0-5 [facility] Erythrocyte distribution wid th ratioOrdered By: Angel Wilkes on 09-26-2024 Erythrocyte distribution width (RBC) [Ratio] 13.8 % 11.6-14.6 [facility] Erythrocyte distribution wid th standard deviationOrdered By: Angel Wilkes on 09-26-2024 Erythrocyte distribution width (RBC) [Entitic vol] 49.6 fL High 35.1-43.9 [facility] Erythrocyte distribution width (RBC) [Ratio] 49.6 fl High 35.1-43.9 [facility] Estimated glomerular filtrat ion rate (GFR) AmericanOrdered By: Angel Wilkes on 09-26-2024 Estimated GFR (MDRD) Amer 82 mL/min >60 [facility] Comment on above: GFR Calc Estimation of creatinine attila aranceOrdered By: Angel Wilkes on 09-26-2024 Estimated Creatinine Clearance Calc 56.04 ml/min [facility] Glomerular filtration rate ( GFR) estimationOrdered By: Angel Wilkes on 09-26-2024 Estimated GFR (MDRD) Non-Af Amer 68 mL/min >60 [facility] Comment on above: Non- GFR Calc GFR/1.73 sq M.predicted among non-blacks MDRD (S/P/Bld) [Vol rate/Area] 68 mL/min/{1.73_m2} >60 [facility] Comment on above: Non- GFR Calc Glucose measurementOrdered B y: Angel Wilkes on 09-26-2024 Glucose [Mass/Vol] 106 mg/dL 74-106 [facility] Comment on above: Fasting Glucose resu lt from 100 to 125 mg/dL suggests IMPAIRED HOMEOSTASIS per A.D.A. criteria. Hematocrit Auto (Bld) [Volum e fraction]Ordered By: Angel Wilkes on 09-26-2024 Hematocrit (Bld) [Volume fraction] 41.9 % 37-47 [facility] Hemoglobin measurementOrdere d By: Angel Wilkes on 09-26-2024 Hemoglobin (Bld) [Mass/Vol] 13.4 g/dL 12.0-15.0 [facility] Immature granulocytes/100 WB C Auto (Bld)Ordered By: Angel Wilkes on 09-26-2024 Immature granulocytes/100 WBC (Bld) 0.300 % 0.0-0.9 [facility] Comment on above: IG% - Immature Granu locytes (promyelocytes, myelocytes and metamyelocytes) > 1% indicates that a LEFT SHIFT is Present. International normalized rat io (INR) calculationOrdered By: Angel Wilkes on 09-26-2024 INR Coag (Bld) [Relative time] 3.5 {INR} [facility] L501.4020on 09-26-2024 TROPONIN-I HS 14 pg/mL Normal 3.0-54.0 [facility] Comment on above: Result Comment: Plea se Note: New Test Units and Gender Specific Reference Ranges. For more information see Policy Stat Procedure [place] High Sensitivity Troponin (TNIH) and attachments. Performed By: #### L 501.5200, L500.2500, L501.9520, L100.0100 #### [facility] [address] [place], [address] L501.5441on 09-26-2024 TROPONIN-I HS 8 pg/mL Normal 3.0-54.0 [facility] Comment on above: Order Comment: 1Y Result Comment: Gertrude pacheco Note: New Test Units and Gender Specific Reference Ranges. For more information see Policy Stat Procedure [place] High Sensitivity Troponin (TNIH) and attachments. Performed By: #### L 501.5200, L500.2500, L501.9520, L100.0100 #### [facility] [address] [place], [address] Lymphocytes Auto (Unsp spec) [#/Vol]Ordered By: Angel Wilkes on 09-26-2024 Lymphocytes (Bld) [#/Vol] 1.51 10*3/uL 0.83-4.51 [facility] Lymphocytes/100 WBC Auto (Un sp spec)Ordered By: Angel Wilkes on 09-26-2024 Lymphocytes/100 WBC (Bld) 21.7 % 19-41 [facility] MCV (mean corpuscular volume ) determinationOrdered By: Angel Wilkes on 09-26-2024 MCV (RBC) [Entitic vol] 98.1 fL 81-99 [facility] Mean corpuscular hemoglobin (MCH) determinationOrdered By: Angel Wilkes on 09-26-2024 MCH (RBC) [Entitic mass] 31.4 pg 27.0-32.0 [facility] Mean corpuscular hemoglobin concentration (MCHC) determinationOrdered By: Angel Wilkes on 09-26-2024 MCHC (RBC) [Mass/Vol] 32.0 g/dL 32-36 [facility] Mean platelet volume determi nationOrdered By: Angel Wilkes on 09-26-2024 Platelet mean volume (Bld) [Entitic vol] 12.8 fL High 6.2-12.0 [facility] Monocyte percentageOrdered B y: Angel Wilkes on 09-26-2024 Monocytes/100 WBC (Bld) 9.2 % 0-10 [facility] Neutrophil percentageOrdered By: Angel Wilkes on 09-26-2024 Neutrophils/100 WBC (Bld) 65.1 % 47-70 [facility] Nucleated red blood cell per centageOrdered By: Angel Wilkes on 09-26-2024 Nucleated RBC/100 WBC (Bld) [Ratio] 0 % 0-5 [facility] Platelet countOrdered By: Jeannie Wilkes on 09-26-2024 Platelets (Bld) [#/Vol] 190 10*3/uL 150-450 [facility] Potassium measurementOrdered By: Angel Wilkes on 09-26-2024 Potassium [Moles/Vol] 4.5 mmol/L 3.5-5.1 [facility] Prothrombin Time w/INRon INR Coag (PPP) [Relative time] 3.5 {INR} Normal [facility] Comment on above: Performed By: #### L 503.6620, L300.3900 ####[facility] [address] [place], [address] PT Coag (PPP) [Time] 35.9 s High 11.7-14.9 [facility] Comment on above: Performed By: #### L 503.6620, L300.3900 ####[facility] [address] [place], [address] Prothrombin timeOrdered By: Angel Wilkes on 09-26-2024 PT Coag (PPP) [Time] 35.9 s High 11.7-14.9 [facility] RBC Auto (Bld) [#/Vol]Ordere d By: Angel Wilkes on 09-26-2024 RBC (Bld) [#/Vol] 4.27 10*6/uL 4.2-5.4 [facility] Serum anion gap measurementO rdered By: Angel Wilkes on 09-26-2024 Anion gap [Moles/Vol] 6 mmol/L 5-15 [facility] Serum or plasma calcium ayanna urement (mass/volume)Ordered By: Angel Wilkes on 09-26-2024 Calcium [Mass/Vol] 9.1 mg/dL 8.5-10.1 [facility] Serum or plasma creatinine m easurement (mass/volume)Ordered By: Angel Wilkes on 09-26-2024 Creatinine [Mass/Vol] 0.86 mg/dL 0.55-1.02 [facility] Comment on above: The validity of the calculated GFR & GFRAA in patients over 70 years has not been determined. Clinical correlation is essential. Serum or plasma urea nitroge n measurement (mass/volume)Ordered By: Angel Wilkes on 09-26-2024 Urea nitrogen [Mass/Vol] 25 mg/dL High 7-18 [facility] Sodium levelOrdered By: Angel Wilkes on 09-26-2024 Sodium [Moles/Vol] 140 mmol/L 136-145 [facility] Troponin IOrdered By: Angel montes on 09-26-2024 Troponin I 14 pg/mL 3.0-54.0 [facility] Comment on above: Please Note: New Bita t Units and Gender Specific Reference Ranges. For more information see Policy Stat Procedure [place] High Sensitivity Troponin (TNIH) and attachments. Troponin I High Sensitivity 14 pg/mL 3.0-54.0 [facility] Comment on above: Please Note: New Bita t Units and Gender Specific Reference Ranges. For more information see Policy Stat Procedure [place] High Sensitivity Troponin (TNIH) and attachments. White blood cell (WBC) count Ordered By: Angel Wilkes on 09-26-2024 WBC (Bld) [#/Vol] 7.0 10*3/uL 4.4-11.0 [facility] BNP,B-Type NATRIURETIC PEPTI John 09-24-2024 Natriuretic peptide B (Bld) [Mass/Vol] 182.8 pg/mL High 0-100 [facility] Comment on above: Performed By: #### L 500.2500, L503.6620, L100.0100 ####[facility] [address] [place], [address] Absolute lymphocyte countOrd ered By: Desire Weldon on 09-23-2024 Lymphocytes Auto (Unsp spec) [#/Vol] 1.62 10*3/uL 0.83-4.51 [facility] Absolute neutrophil countOrd ered By: Desire Weldon on 09-23-2024 Neutrophils (Bld) [#/Vol] 4.2 10*3/uL 2.0-7.7 [facility] Automated lymphocyte count a s percentage of total leukocytesOrdered By: Desire Weldon on 09-23-2024 Lymphocytes/100 WBC Auto (Unsp spec) 23.4 % 19-41 [facility] BNP (brain natriuretic pepti de measurement)Ordered By: Desire Weldon on 09-23-2024 Natriuretic peptide B (Bld) [Mass/Vol] 182.8 pg/mL High 0-100 [facility] Basic Metabolic Profile (BMP )on 09-23-2024 BUN/CRE 37.5 RATIO High 10-20 [facility] Comment on above: Performed By: #### L 500.2500, L503.6620, L100.0100 ####[facility] [address] [place], [address] CA,Total 9.0 mg/dL Normal 8.5-10.1 [facility] Comment on above: Performed By: #### L 500.2500, L503.6620, L100.0100 ####[facility] [address] [place], [address] Chloride [Moles/Vol] 105 mmol/L Normal 98-107 [facility] Comment on above: Performed By: #### L 500.2500, L503.6620, L100.0100 ####[facility] [address] [place], [address] CO2 [Moles/Vol] 28.0 mmol/L Normal 21.0-32.0 [facility] Comment on above: Performed By: #### L 500.2500, L503.6620, L100.0100 ####[facility] [address] [place], [address] Creatinine [Mass/Vol] 0.75 mg/dL Normal 0.55-1.02 [facility] Comment on above: Result Comment: The validity of the calculated GFR GFRAA in patients over 70 years has not been determined. Clinical correlation is essential. Performed By: #### L 500.2500, L503.6620, L100.0100 ####[facility] [address] [place], [address] EST GFR - AA 96 mL/min Normal >60 [facility] Comment on above: Result Comment: Afri can [place] GFR Calc Performed By: #### L 500.2500, L503.6620, L100.0100 ####[facility] [address] [place], [address] GAP 3 Low 5-15 [facility] Comment on above: Performed By: #### L 500.2500, L503.6620, L100.0100 ####[facility] [address] [place], [address] GFR/1.73 sq M.predicted among non-blacks MDRD (S/P/Bld) [Vol rate/Area] 80 mL/min/{1.73_m2} Normal >60 [facility] Comment on above: Result Comment: Non- GFR Calc Performed By: #### L 500.2500, L503.6620, L100.0100 ####[facility] [address] [place], [address] Glucose [Mass/Vol] 84 mg/dL Normal 74-106 [facility] Comment on above: Performed By: #### L 500.2500, L503.6620, L100.0100 ####[facility] [address] [place], [address] Potassium [Moles/Vol] 5.0 mmol/L Normal 3.5-5.1 [facility] Comment on above: Performed By: #### L 500.2500, L503.6620, L100.0100 ####[facility] [address] [place], [address] Sodium [Moles/Vol] 136 mmol/L Normal 136-145 [facility] Comment on above: Performed By: #### L 500.2500, L503.6620, L100.0100 ####[facility] [address] [place], [address] Urea nitrogen [Mass/Vol] 28 mg/dL High 7-18 [facility] Comment on above: Performed By: #### L 500.2500, L503.6620, L100.0100 ####[facility] [address] [place], [address] Basophil percentageOrdered B y: Desire Shiraz on 09-23-2024 Basophils/100 WBC (Bld) 1.2 % High 0-1 [facility] CBC W/Diff, Automatedon 08-26 Absolute Lymph 1.62 X10 3/uL Normal 0.83-4.51 [facility] Comment on above: Performed By: #### L 500.2500, L503.6620, L100.0100 ####[facility] [address] [place], [address] Absolute Neut 4.2 X10 3/uL Normal 2.0-7.7 [facility] Comment on above: Performed By: #### L 500.2500, L503.6620, L100.0100 ####[facility] [address] [place], [address] Basophils/100 WBC (Bld) 1.2 % High 0-1 [facility] Comment on above: Performed By: #### L 500.2500, L503.6620, L100.0100 ####[facility] [address] [place], [address] Eosinophils/100 WBC (Bld) 3.2 % Normal 0-5 [facility] Comment on above: Performed By: #### L 500.2500, L503.6620, L100.0100 ####[facility] [address] [place], [address] Erythrocyte distribution width (RBC) [Ratio] 13.7 % Normal 11.6-14.6 [facility] Comment on above: Performed By: #### L 500.2500, L503.6620, L100.0100 ####[facility] [address] [place], [address] Hematocrit (Bld) [Volume fraction] 41.6 % Normal 37-47 [facility] Comment on above: Performed By: #### L 500.2500, L503.6620, L100.0100 ####[facility] [address] [place], [address] Hemoglobin (Bld) [Mass/Vol] 12.7 g/dL Normal 12.0-15.0 [facility] Comment on above: Performed By: #### L 500.2500, L503.6620, L100.0100 ####[facility] [address] [place], [address] IG% 0.400 Normal 0.0-0.9 [facility] Comment on above: Result Comment: IG% - Immature Granulocytes (promyelocytes, myelocytes and metamyelocytes) > 1% indicates that a LEFT SHIFT is Present. Performed By: #### L 500.2500, L503.6620, L100.0100 ####[facility] [address] [place], [address] Lymphocytes/100 WBC (Bld) 23.4 % Normal 19-41 [facility] Comment on above: Performed By: #### L 500.2500, L503.6620, L100.0100 ####[facility] [address] [place], [address] MCH (RBC) [Entitic mass] 30.7 pg Normal 27.0-32.0 [facility] Comment on above: Performed By: #### L 500.2500, L503.6620, L100.0100 ####[facility] [address] [place], [address] MCHC (RBC) [Mass/Vol] 30.5 g/dL Low 32-36 [facility] Comment on above: Performed By: #### L 500.2500, L503.6620, L100.0100 ####[facility] [address] [place], [address] MCV (RBC) [Entitic vol] 100.5 fL High 81-99 [facility] Comment on above: Performed By: #### L 500.2500, L503.6620, L100.0100 ####[facility] [address] [place], [address] Monocytes/100 WBC (Bld) 11.0 % High 0-10 [facility] Comment on above: Performed By: #### L 500.2500, L503.6620, L100.0100 ####[facility] [address] [place], [address] Neutrophils/100 WBC (Bld) 60.8 % Normal 47-70 [facility] Comment on above: Performed By: #### L 500.2500, L503.6620, L100.0100 ####[facility] [address] [place], [address] Nucleated RBC (Bld) [#/Vol] 0 10*3/uL Normal 0-5 [facility] Comment on above: Performed By: #### L 500.2500, L503.6620, L100.0100 ####[facility] [address] [place], [address] Platelet mean volume (Bld) [Entitic vol] 13.0 fL High 6.2-12.0 [facility] Comment on above: Performed By: #### L 500.2500, L503.6620, L100.0100 ####[facility] [address] [place], [address] Platelets (Bld) [#/Vol] 223 10*3/uL Normal 150-450 [facility] Comment on above: Performed By: #### L 500.2500, L503.6620, L100.0100 ####[facility] [address] [place], [address] RBC (Bld) [#/Vol] 4.14 10*6/uL Low 4.2-5.4 [facility] Comment on above: Performed By: #### L 500.2500, L503.6620, L100.0100 ####[facility] [address] [place], [address] RDW SD 50.6 fl High 35.1-43.9 [facility] Comment on above: Performed By: #### L 500.2500, L503.6620, L100.0100 ####[facility] [address] [place], [address] WBC (Bld) [#/Vol] 6.9 10*3/uL Normal 4.4-11.0 [facility] Comment on above: Performed By: #### L 500.2500, L503.6620, L100.0100 ####[facility] [address] [place], [address] Eosinophil percentageOrdered By: Desire Weldon on 09-23-2024 Eosinophils/100 WBC (Bld) 3.2 % 0-5 [facility] Erythrocyte distribution wid th ratioOrdered By: Desire Weldon on 09-23-2024 Erythrocyte distribution width (RBC) [Ratio] 13.7 % 11.6-14.6 [facility] Erythrocyte distribution wid th standard deviationOrdered By: Desire Weldon on 09-23-2024 Erythrocyte distribution width (RBC) [Entitic vol] 50.6 fL High 35.1-43.9 [facility] Erythrocyte distribution width (RBC) [Ratio] 50.6 fl High 35.1-43.9 [facility] Hematocrit Auto (Bld) [Volum e fraction]Ordered By: Desire Weldon on 09-23-2024 Hematocrit (Bld) [Volume fraction] 41.6 % 37-47 [facility] Hemoglobin measurementOrdere d By: Desire Weldon on 09-23-2024 Hemoglobin (Bld) [Mass/Vol] 12.7 g/dL 12.0-15.0 [facility] Immature granulocytes/100 WB C Auto (Bld)Ordered By: Desire Weldon on 09-23-2024 Immature granulocytes/100 WBC (Bld) 0.400 % 0.0-0.9 [facility] Comment on above: IG% - Immature Granu locytes (promyelocytes, myelocytes and metamyelocytes) > 1% indicates that a LEFT SHIFT is Present. Lymphocytes Auto (Unsp spec) [#/Vol]Ordered By: Desire Weldon on 09-23-2024 Lymphocytes (Bld) [#/Vol] 1.62 10*3/uL 0.83-4.51 [facility] Lymphocytes/100 WBC Auto (Un sp spec)Ordered By: Desire Weldon on 09-23-2024 Lymphocytes/100 WBC (Bld) 23.4 % 19-41 [facility] MCV (mean corpuscular volume ) determinationOrdered By: Desire Weldon on 09-23-2024 MCV (RBC) [Entitic vol] 100.5 fL High 81-99 [facility] Mean corpuscular hemoglobin (MCH) determinationOrdered By: Desire Weldon on 09-23-2024 MCH (RBC) [Entitic mass] 30.7 pg 27.0-32.0 [facility] Mean corpuscular hemoglobin concentration (MCHC) determinationOrdered By: Desire Weldon on 09-23-2024 MCHC (RBC) [Mass/Vol] 30.5 g/dL Low 32-36 [facility] Mean platelet volume determi nationOrdered By: Desire Weldon on 09-23-2024 Platelet mean volume (Bld) [Entitic vol] 13.0 fL High 6.2-12.0 [facility] Monocyte percentageOrdered B y: Desire Weldon on 09-23-2024 Monocytes/100 WBC (Bld) 11.0 % High 0-10 [facility] Neutrophil percentageOrdered By: Desire Weldon on 09-23-2024 Neutrophils/100 WBC (Bld) 60.8 % 47-70 [facility] Nucleated red blood cell per centageOrdered By: Desire Weldon on 09-23-2024 Nucleated RBC/100 WBC (Bld) [Ratio] 0 % 0-5 [facility] Platelet countOrdered By: Sheila Weldon on 09-23-2024 Platelets (Bld) [#/Vol] 223 10*3/uL 150-450 [facility] RBC Auto (Bld) [#/Vol]Ordere d By: Desire Weldon on 09-23-2024 RBC (Bld) [#/Vol] 4.14 10*6/uL Low 4.2-5.4 [facility] White blood cell (WBC) count Ordered By: Desire Weldon on 09-23-2024 WBC (Bld) [#/Vol] 6.9 10*3/uL 4.4-11.0 [facility] INR Coag (BldC) [Relative ti me]Ordered By: Bart Rosales on 09-22-2024 INR Coag (Bld) [Relative time] 3.2 {INR} [facility] Comment on above: Critical Value > 4.0 International normalized rat io (INR) measurement by fingerstickOrdered By: Bart Rosales on 09-22-2024 INR Coag (BldC) [Relative time] 3.2 [facility] Comment on above: Critical Value > 4.0 PT Coag (Bld) [Time]Ordered By: Bart Rosales on 09-22-2024 Bedside Prothrombin Time 32.1 SEC High 11.7-14.9 [facility] Protime w/INR Fingerstickon 09-22-2024 INR Coag (PPP) [Relative time] 3.2 {INR} Normal [facility] Comment on above: Result Comment: Crit ical Value > 4.0 Performed By: #### L 501.5200, L500.2500, L501.9520, L100.0100 #### [facility] [address] [place], [place], [id number] Protime Coagsen 32.1 SEC High 11.7-14.9 [facility] Comment on above: Performed By: #### L 501.5200, L500.2500, L501.9520, L100.0100 #### [facility] [address] [place], [address] Whole blood prothrombin time Ordered By: Bart Rosales on 09-22-2024 PT Coag (Bld) [Time] 32.1 s High 11.7-14.9 [facility] CNPN Telephone (INTMWS) -- CADY BERUMEN ([id number]) 1945 F Date Time Provider Department 09/15/24 MOON TEIXEIRA INTMWS During your visit today, we recorded the following information about you: Lauren Bui RN 09/15/2024 12:10 PM Signed Patient calls to schedule consult to physical therapy for knee pain. Patient reports that she fell several months back and continues to have knee pain bilateral (right being worse) and would like to try PT at this point. Reviewed OV notes and see a recommendation for PT for knee pain but don't see an order to schedule from. Patient would like to schedule with [facility] and requests call back at [phone]. Pended order. LEANDER Plata Joy, APRN.FILE SYSTEM INSTALLER 09/16/2024 9:46 AM Signed Order placed please assist with scheduling. Thank you José Miguel Saldaña APRN.Janessa Bal LPN 09/16/2024 9:52 AM Signed Phoned patient went over notes below from José Miguel Saldaña [employer]IAL [employer] OPERATOR [employer] with understanding. Assisted with transfer to hangar attendant to get PT appt set up. Allergies As of Date: 09/15/2024 Noted Allergy Reaction FRAGRANCES 11/28/2014 3 - Cough 12 - Shortness of Breath BENZODIAZEPINES 09/08/2014 1 - Mental Status Change Comments: Pt sees colors and laughing CATS 11/28/2014 9 - Itching 12 - Shortness of Breath Comments: Eventual wheezing DUST MITES 11/28/2014 14 - Other: See Comments Comments: Positive allergy test GRASS POLLEN-DONNA, STANDARD 11/28/2014 9 - Itching Comments: Nasal congestion MOLD 11/28/2014 9 - Itching Comments: Nasal congestion SEASONAL ALLERGIES 11/08/2010 3 - Cough SULFA (SULFONAMIDE ANTIBIOTICS) 06/13/2005 9 - Itching TREES 11/28/2014 9 - Itching Comments: Nasal congestion VALIUM (DIAZEPAM) 09/23/2013 5 - Intolerance Comments: Laughing hysterically, ultra sensitive ZITHROMAX (AZITHROMYCIN) 06/08/2019 14 - Other: See Comments Comments: nausea Date Reviewed: 07/28/2024 Reviewed by: Esha Ramos MA - Fully Assessed Reason for Visit: Orders [681] Primary Visit Diagnosis:Pain in both knees, unspecified chronicity [M25.561, M25.562] Order(s):CONSULT TO PHYSICAL THERAPY [9032] Order #: [id number]: 1 FUTURE Prescriptions as of 09/16/2024 - mirabegron (MYRBETRIQ) 25 mg Tb24 Take 1 tablet by mouth once daily. - melatonin 1 mg subl Dissolve 1 tablet under the tongue once daily. - escitalopram oxalate (LEXAPRO) 5 mg tablet Take 1 tablet by mouth once daily. Take one pill at night for 7 days and then increase to 2 pills at night - baclofen 10 mg tablet Take 1 tablet by mouth three times a day as needed (muscle spasms). - rosuvastatin (CRESTOR) 5 mg tablet Take 1 tablet by mouth daily at bedtime. - Boswellia cecile extract (BOSWELLIA CECILE XT, BULK,) 70 % powd 1 Each two times a day. - prasterone, DHEA, (DHEA ORAL) Take by mouth. 0.15 mg - metoprolol tartrate, short acting, (LOPRESSOR) 25 mg tablet Take 25 mg by mouth twice daily. Takes as needed for rapid HR - timolol maleate (TIMOPTIC) 0.5 % ophthalmic solution Use 1 Drop in both eyes twice daily. - warfarin (COUMADIN) 5 mg tablet Take 1 tablet by mouth daily except 7.5mg on ( [facility]) - ALPHA LIPOIC ACID ORAL Take by mouth. - Cholecalciferol, Vitamin D3, 50 mcg (2,000 unit) cap Take 2 capsules by mouth once daily. - COQ10, UBIQUINOL, ORAL Take 30 mg by mouth. - latanoprost (XALATAN) 0.005 % ophthalmic solution Use 1 Drop in both eyes daily at bedtime. Meds Comments as of 05/10/2015: Does not take antivert, ibuprofen, aleve. Does take boswelia frankincense and white willow. Problem List As Of Date 09/15/2024 Noted Resolved ALLERGIC RHINITIS NOS [J30.9] 06/19/2004 WOUND (NOT COMPLICATED) - OPEN FINGER(S) [S61.*06/14/2005 10/08/2014 GANGLION JOINT (Mucous cyst left hand 3rd digit*08/07/2005 10/08/2014 GENERAL OSTEOARTHROSIS [M15.9] 11/23/2006 Abdominal pain, unspecified site [R10.9] 11/23/2006 10/08/2014 Lumbago [M54.50] 11/16/2008 10/08/2014 Rectal bleeding [K62.5] 09/06/2010 10/08/2014 Cellulitis [L03.90] 06/24/2013 10/08/2014 Ulcer of ankle (HCC) [L97.309] 06/24/2013 10/08/2014 Venous stasis ulcer of right ankle limited to b*07/18/2013 06/09/2023 Vitamin D deficiency [E55.9] 09/20/2013 Frequency of urination [R35.0] 03/01/2014 10/08/2014 Urgency of urination [R39.15] 03/01/2014 10/08/2014 Nocturia [R35.1] 03/01/2014 Hesitancy of micturition [R39.11] 03/01/2014 Varicose veins of right lower extremity [I83.91]08/25/2014 BPPV (benign paroxysmal positional vertigo) [H8*10/30/2014 Vertigo of central origin [H81.4] 12/11/2014 Peripheral vertigo, unspecified [H81.399] 12/11/2014 Sprain of sacroiliac joint [S33.6XXA] 11/06/2015 Irritable bowel syndrome with both constipation*11/06/2015 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 Normal [facility] Prothrombin Time w/INRon INR Normal [facility] Comment on above: Result Comment: FING ERSTICK Performed By: #### L 501.5200, L500.2500, L501.9520, L100.0100 #### [facility] [address] [place], [address] PROTIME Normal 11.7-14.9 [facility] Comment on above: Result Comment: FING ERSTICK Performed By: #### L 501.5200, L500.2500, L501.9520, L100.0100 #### [facility] [address] [place], [address] Protime w/INR Fingerstickon 09-12-2024 INR Coag (PPP) [Relative time] 3.9 {INR} Normal [facility] Comment on above: Result Comment: Crit ical Value > 4.0 Performed By: #### L 501.5200, L500.2500, L501.9520, L100.0100 #### [facility] [address] [place], [address] Protime Coagsen 38.4 SEC High 11.7-14.9 [facility] Comment on above: Performed By: #### L 501.5200, L500.2500, L501.9520, L100.0100 #### [facility] [address] [place], [address] [facility]Alise [facility] CAD[facility] ([id number]) 1945 F Date Time Provider Department 08/19/24 JANELLE MORALES During your visit today, we recorded the following information about you: Janelle Morales APRN.CNP 08/19/2024 3:27 PM Signed Please let her know that her UA is negative. ANANDA Whitney Elizabeth, MA 08/19/2024 3:29 PM Signed Patient was notified Sylwia Palencia MA Allergies As of Date: 08/19/2024 Noted Allergy Reaction FRAGRANCES 11/28/2014 3 - Cough 12 - Shortness of Breath BENZODIAZEPINES 09/08/2014 1 - Mental Status Change Comments: Pt sees colors and laughing CATS 11/28/2014 9 - Itching 12 - Shortness of Breath Comments: Eventual wheezing DUST MITES 11/28/2014 14 - Other: See Comments Comments: Positive allergy test GRASS POLLEN-DONNA, STANDARD 11/28/2014 9 - Itching Comments: Nasal congestion MOLD 11/28/2014 9 - Itching Comments: Nasal congestion SEASONAL ALLERGIES 11/08/2010 3 - Cough SULFA (SULFONAMIDE ANTIBIOTICS) 06/13/2005 9 - Itching TREES 11/28/2014 9 - Itching Comments: Nasal congestion VALIUM (DIAZEPAM) 09/23/2013 5 - Intolerance Comments: Laughing hysterically, ultra sensitive ZITHROMAX (AZITHROMYCIN) 06/08/2019 14 - Other: See Comments Comments: nausea Date Reviewed: 07/28/2024 Reviewed by: Esha Ramos MA - Fully Assessed Reason for Visit: Results [95] Prescriptions as of 08/19/2024 - mirabegron (MYRBETRIQ) 25 mg Tb24 Take 1 tablet by mouth once daily. - melatonin 1 mg subl Dissolve 1 tablet under the tongue once daily. - escitalopram oxalate (LEXAPRO) 5 mg tablet Take 1 tablet by mouth once daily. Take one pill at night for 7 days and then increase to 2 pills at night - baclofen 10 mg tablet Take 1 tablet by mouth three times a day as needed (muscle spasms). - rosuvastatin (CRESTOR) 5 mg tablet Take 1 tablet by mouth daily at bedtime. - Boswellia cecile extract (BOSWELLIA CECILE XT, BULK,) 70 % powd 1 Each two times a day. - prasterone, DHEA, (DHEA ORAL) Take by mouth. 0.15 mg - metoprolol tartrate, short acting, (LOPRESSOR) 25 mg tablet Take 25 mg by mouth twice daily. Takes as needed for rapid HR - timolol maleate (TIMOPTIC) 0.5 % ophthalmic solution Use 1 Drop in both eyes twice daily. - warfarin (COUMADIN) 5 mg tablet Take 1 tablet by mouth daily except 7.5mg on ( [facility]) - ALPHA LIPOIC ACID ORAL Take by mouth. - Cholecalciferol, Vitamin D3, 50 mcg (2,000 unit) cap Take 2 capsules by mouth once daily. - COQ10, UBIQUINOL, ORAL Take 30 mg by mouth. - latanoprost (XALATAN) 0.005 % ophthalmic solution Use 1 Drop in both eyes daily at bedtime. Meds Comments as of 05/10/2015: Does not take antivert, ibuprofen, aleve. Does take boswelia frankincense and white willow. Problem List As Of Date 08/19/2024 Noted Resolved ALLERGIC RHINITIS NOS [J30.9] 06/19/2004 WOUND (NOT COMPLICATED) - OPEN FINGER(S) [S61.*06/14/2005 10/08/2014 GANGLION JOINT (Mucous cyst left hand 3rd digit*08/07/2005 10/08/2014 GENERAL OSTEOARTHROSIS [M15.9] 11/23/2006 Abdominal pain, unspecified site [R10.9] 11/23/2006 10/08/2014 Lumbago [M54.50] 11/16/2008 10/08/2014 Rectal bleeding [K62.5] 09/06/2010 10/08/2014 Cellulitis [L03.90] 06/24/2013 10/08/2014 Ulcer of ankle (HCC) [L97.309] 06/24/2013 10/08/2014 Venous stasis ulcer of right ankle limited to b*07/18/2013 06/09/2023 Vitamin D deficiency [E55.9] 09/20/2013 Frequency of urination [R35.0] 03/01/2014 10/08/2014 Urgency of urination [R39.15] 03/01/2014 10/08/2014 Nocturia [R35.1] 03/01/2014 Hesitancy of micturition [R39.11] 03/01/2014 Varicose veins of right lower extremity [I83.91]08/25/2014 BPPV (benign paroxysmal positional vertigo) [H8*10/30/2014 Vertigo of central origin [H81.4] 12/11/2014 Peripheral vertigo, unspecified [H81.399] 12/11/2014 Sprain of sacroiliac joint [S33.6XXA] 11/06/2015 Irritable bowel syndrome with both constipation*11/06/2015 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] 08/14/2017 Varicose veins of left lower extremity with dixon*03/03/2018 Asthma [J45.909] 04/20/2018 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*06/16/2018 Paroxysmal atrial tachycardia (HCC) [I47.19] 11/29/2018 Severe episode of recurrent major depressive di*11/29/2018 Paroxysmal atrial fibrillation (HCC) [I48.0] 02/04/2019 Essential hypertension [I10] SOB (shortness of breath) [R06.02] 12/23/2021 Bilateral carotid artery stenosis [I65.23] 03/21/2024 Encounter Status:Closed by SYLWIA PALENCIA on 08/19/24 [facility] CADY BERUM[facility] ([id number]) 1945 F Date Time Provider Department 08/12/24 YAA ASHBY INTWS During your visit today, we recorded the following information about you: Janessa Morton LPN 08/12/2024 9:49 AM Signed Patient calling concerned about her follow up urine results, since she had blood in her urine previously. Can leave a message on her phone, she will be in appt with her daughter. Please advise Latest Ref Rng 08/11/2024 Color Yellow Yellow Clarity Clear Clear Glucose, Urine Negative Negative Bilirubin, Urine Negative Negative Ketones, Urine Negative Negative Specific [place], Ur 1.005 - 1.030 1.009 Hemoglobin/Blood,Ur Negative Negative pH, Urine <8.5 6.5 Protein, Urine Negative Negative Urobilinogen 0.2-1.0 EU/dL 0.2 EU/dL Nitrites Negative Negative Leukest Negative Negative WBC, Urine 0-5 /HPF 0-5 /HPF RBC, Urine 0-2 /HPF 0-2 /HPF Bacteria Negative /HPF Negative Epithelial Cells /HPF None Seen Hyaline Cast 0 /LPF 0 /LPF Yaa Ashby PA-C 08/15/2024 7:30 AM Signed Please let patient know that her urinalysis looks good. No blood. Follow up as needed. Yaa Ashby PA-C 08/15/2024 Esha Santiago LPN 08/15/2024 10:33 AM Signed Spoke with pt and information listed below given. Pt verbalizes understanding. Esha Santiago LPN Allergies As of Date: 08/12/2024 Noted Allergy Reaction FRAGRANCES 11/28/2014 3 - Cough 12 - Shortness of Breath BENZODIAZEPINES 09/08/2014 1 - Mental Status Change Comments: Pt sees colors and laughing CATS 11/28/2014 9 - Itching 12 - Shortness of Breath Comments: Eventual wheezing DUST MITES 11/28/2014 14 - Other: See Comments Comments: Positive allergy test GRASS POLLEN-DONNA, STANDARD 11/28/2014 9 - Itching Comments: Nasal congestion MOLD 11/28/2014 9 - Itching Comments: Nasal congestion SEASONAL ALLERGIES 11/08/2010 3 - Cough SULFA (SULFONAMIDE ANTIBIOTICS) 06/13/2005 9 - Itching TREES 11/28/2014 9 - Itching Comments: Nasal congestion VALIUM (DIAZEPAM) 09/23/2013 5 - Intolerance Comments: Laughing hysterically, ultra sensitive ZITHROMAX (AZITHROMYCIN) 06/08/2019 14 - Other: See Comments Comments: nausea Date Reviewed: 07/28/2024 Reviewed by: Esha Ramos MA - Fully Assessed Reason for Visit: follow up urine results [Other] Prescriptions as of 08/15/2024 - mirabegron (MYRBETRIQ) 25 mg Tb24 Take 1 tablet by mouth once daily. - melatonin 1 mg subl Dissolve 1 tablet under the tongue once daily. - escitalopram oxalate (LEXAPRO) 5 mg tablet Take 1 tablet by mouth once daily. Take one pill at night for 7 days and then increase to 2 pills at night - baclofen 10 mg tablet Take 1 tablet by mouth three times a day as needed (muscle spasms). - rosuvastatin (CRESTOR) 5 mg tablet Take 1 tablet by mouth daily at bedtime. - Boswellia cecile extract (BOSWELLIA CECILE XT, BULK,) 70 % powd 1 Each two times a day. - prasterone, DHEA, (DHEA ORAL) Take by mouth. 0.15 mg - metoprolol tartrate, short acting, (LOPRESSOR) 25 mg tablet Take 25 mg by mouth twice daily. Takes as needed for rapid HR - timolol maleate (TIMOPTIC) 0.5 % ophthalmic solution Use 1 Drop in both eyes twice daily. - warfarin (COUMADIN) 5 mg tablet Take 1 tablet by mouth daily except 7.5mg on ( [facility]) - ALPHA LIPOIC ACID ORAL Take by mouth. - Cholecalciferol, Vitamin D3, 50 mcg (2,000 unit) cap Take 2 capsules by mouth once daily. - COQ10, UBIQUINOL, ORAL Take 30 mg by mouth. - latanoprost (XALATAN) 0.005 % ophthalmic solution Use 1 Drop in both eyes daily at bedtime. Meds Comments as of 05/10/2015: Does not take antivert, ibuprofen, aleve. Does take boswelia frankincense and white willow. Problem List As Of Date 08/12/2024 Noted Resolved ALLERGIC RHINITIS NOS [J30.9] 06/19/2004 WOUND (NOT COMPLICATED) - OPEN FINGER(S) [S61.*06/14/2005 10/08/2014 GANGLION JOINT (Mucous cyst left hand 3rd digit*08/07/2005 10/08/2014 GENERAL OSTEOARTHROSIS [M15.9] 11/23/2006 Abdominal pain, unspecified site [R10.9] 11/23/2006 10/08/2014 Lumbago [M54.50] 11/16/2008 10/08/2014 Rectal bleeding [K62.5] 09/06/2010 10/08/2014 Cellulitis [L03.90] 06/24/2013 10/08/2014 Ulcer of ankle (HCC) [L97.309] 06/24/2013 10/08/2014 Venous stasis ulcer of right ankle limited to b*07/18/2013 06/09/2023 Vitamin D deficiency [E55.9] 09/20/2013 Frequency of urination [R35.0] 03/01/2014 10/08/2014 Urgency of urination [R39.15] 03/01/2014 10/08/2014 Nocturia [R35.1] 03/01/2014 Hesitancy of micturition [R39.11] 03/01/2014 Varicose veins of right lower extremity [I83.91]08/25/2014 BPPV (benign paroxysmal positional vertigo) [H8*10/30/2014 Vertigo of central origin [H81.4] 12/11/2014 Peripheral vertigo, unspecified [H81.399] 12/11/2014 Sprain of sacroiliac joint [S33.6XXA] 11/06/2015 I (more content not included)... Normal [facility] Urinalysis complete panel (U )on 08-11-2024 Bacteria LM.HPF (Urine sed) [#/Area] Negative Normal Negative [facility] Comment on above: Order Comment: Speci men Type: URINE SPECIMENOrdering Facility: [facility] Address: [address] [place] [address] Performed By: #### 2 4356-8 ####[facility] LABCLIA [id number] [facility] [id number] [address] [place] Bilirubin Ql (U) Negative Normal Negative [facility] Comment on above: Order Comment: Speci men Type: URINE SPECIMENOrdering Facility: [facility] Address: [address] [place] [address] Performed By: #### 2 4356-8 ####[facility] LABCLIA [id number] [place] [address] [place] Clarity (Unsp spec) Clear Normal Clear [facility] Comment on above: Order Comment: Speci men Type: URINE SPECIMENOrdering Facility: [facility] Address: [address] [place] [address] Performed By: #### 2 4356-8 ####[facility] LABCLIA [id number] [place] [address] [place] Color (U) Yellow Normal Yellow [facility] Comment on above: Order Comment: Speci men Type: URINE SPECIMENOrdering Facility: [facility] Address: [address] [place] [address] Performed By: #### 2 4356-8 ####[facility] LABCLIA [id number] [place] [place] [address] [place] Epithelial cells LM.HPF (Urine sed) [#/Area] None Seen Normal [facility] Comment on above: Order Comment: Speci men Type: URINE SPECIMENOrdering Facility: [facility] Address: [address] [place] [address] Performed By: #### 2 4356-8 ####[facility] LABCLIA [id number] [place] [address] [place] Glucose Test strip (U) [Mass/Vol] Negative Normal Negative [facility] Comment on above: Order Comment: Speci men Type: URINE SPECIMENOrdering Facility: [facility] Address: [address] [place] [address] Performed By: #### 2 4356-8 ####[facility] LABCLIA [id number] [place] [address] [place] Hemoglobin Ql (U) Negative Normal Negative [facility] Comment on above: Order Comment: Speci men Type: URINE SPECIMENOrdering Facility: [facility] Address: [address] [place] [address] Performed By: #### 2 4356-8 ####[facility] LABCLIA [id number] [place] [address] [place] Hyaline casts (Urine sed) [#/Area] 0 /[LPF] Normal 0 /LPF [facility] Comment on above: Order Comment: Speci men Type: URINE SPECIMENOrdering Facility: [facility] Address: [address] [place] [address] Performed By: #### 2 4356-8 ####[facility] LABCLIA [id number] [place] [address] [place] Ketones Ql (U) Negative Normal Negative [facility] Comment on above: Order Comment: Speci men Type: URINE SPECIMENOrdering Facility: [facility] Address: [address] [place] [address] Performed By: #### 2 4356-8 ####[facility] LABCLIA [id number] [place] [address] [place] Leukocyte esterase Test strip Ql (U) Negative Normal Negative [facility] Comment on above: Order Comment: Speci men Type: URINE SPECIMENOrdering Facility: [facility] Address: [address] [place] [address] Performed By: #### 2 4356-8 ####[facility] LABCLIA [id number] [place] [address] [place] Nitrite Ql (U) Negative Normal Negative [facility] Comment on above: Order Comment: Speci men Type: URINE SPECIMENOrdering Facility: [facility] Address: [address] [place] [address] Performed By: #### 2 4356-8 ####[facility] LABCLIA [id number] [place] [address] [place] pH (U) 6.5 [pH] Normal <8.5 [facility] Comment on above: Order Comment: Speci men Type: URINE SPECIMENOrdering Facility: [facility] Address: [address] [place] [address] Performed By: #### 2 4356-8 ####[facility] LABCLIA [id number] [place] [address] [place] Protein (U) [Mass/Vol] Negative Normal Negative [facility] Comment on above: Order Comment: Speci men Type: URINE SPECIMENOrdering Facility: [facility] Address: [address] [place] [address] Performed By: #### 2 4356-8 ####[facility] LABIA [id number] [place] [address] [place] RBC LM.HPF (Urine sed) [#/Area] 0-2 /HPF Normal 0-2 /HPF [facility] Comment on above: Order Comment: Speci men Type: URINE SPECIMENOrdering Facility: [facility] Address: [address] [place] [address] Performed By: #### 2 4356-8 ####[facility] LABIA [id number] [place] [address] [place] Specific gravity (U) [Rel density] 1.009 Normal 1.005-1.03 0 [facility] Comment on above: Order Comment: Speci men Type: URINE SPECIMENOrdering Facility: [facility] Address: [address] [place] [address] Performed By: #### 2 4356-8 ####[facility] LABIA [id number] [place] [address] [place] Urobilinogen Ql (U) 0.2 EU/dL Normal 0.2-1.0 EU/dL [facility] Comment on above: Order Comment: Speci men Type: URINE SPECIMENOrdering Facility: [facility] Address: [address] [place] [address] Performed By: #### 2 4356-8 ####[facility] LABCLIA [id number] [place] [address] [place] WBC LM.HPF (Urine sed) [#/Area] 0-5 /HPF Normal 0-5 /HPF [facility] Comment on above: Order Comment: Speci men Type: URINE SPECIMENOrdering Facility: [facility] Address: [address] [place] [address] Performed By: #### 2 4356-8 ####[facility] LABCLIA [id number] [place] [id number] [place] CNOVon 07-28-2024 CNOV Office Visit (PODIWS ) -- CADY BERUMEN ([id number]) 1945 F Date Time Provider Department 07/28/24 9:15 AM DAQUAN BUCHANAN PODIWS During your visit today, we recorded the following information about you: Daquan Buchanan 07/28/2024 9:47 AM Signed Initial Podiatric Office Visit: Chief Complaint: This 78 year old female who presents with chief complaint:ingrowing toenail of left hallux HPI Patient presents to clinic for evaluation of left great toe Complains of thick deformed and ingrowing toenail of left hallux Patient will experience pain primarily to the lateral nail border. She is here to discuss options. PAIN EVALUATION No data found in the last 1 encounters. Hemoglobin A1C (%) Date Value 07/29/2022 5.5 05/01/2020 5.2 06/19/2018 5.4 PCP: Moon Teixeira MD PAST MEDICAL HISTORY Diagnosis Date A-fib (HCC) February 2021 Asthma Atrial tachycardia (HCC) 10/14/2018 BPPV (benign paroxysmal positional vertigo) 10/30/2014 Degenerative disc disease 08/10/2014 Mild Degenerative disc disease C6-C7 Mild Anterolisthesis C7-T-1`- See scanned document Essential hypertension, benign Fibromyalgia Glaucoma, open angle Hypothyroidism 10/14/2018 Varicose veins 08/25/2014 Varicose veins of other sites Venous stasis ulcer of ankle 07/18/2013 Vestibular neuronitis Vitamin D deficiency 09/20/2013 Current Outpatient Medications Medication Sig mirabegron (MYRBETRIQ) 25 mg Tb24 Take 1 tablet by mouth once daily. melatonin 1 mg subl Dissolve 1 tablet under the tongue once daily. escitalopram oxalate (LEXAPRO) 5 mg tablet Take 1 tablet by mouth once daily. Take one pill at night for 7 days and then increase to 2 pills at night baclofen 10 mg tablet Take 1 tablet by mouth three times a day as needed (muscle spasms). rosuvastatin (CRESTOR) 5 mg tablet Take 1 tablet by mouth daily at bedtime. Boswellia cecile extract (BOSWELLIA CECILE XT, BULK,) 70 % powd 1 Each two times a day. prasterone, DHEA, (DHEA ORAL) Take by mouth. 0.15 mg metoprolol tartrate, short acting, (LOPRESSOR) 25 mg tablet Take 25 mg by mouth twice daily. Takes as needed for rapid HR timolol maleate (TIMOPTIC) 0.5 % ophthalmic solution Use 1 Drop in both eyes twice daily. warfarin (COUMADIN) 5 mg tablet Take 1 tablet by mouth daily except 7.5mg on ( [facility]) (Patient taking differently: 7.5 mg daily) ALPHA LIPOIC ACID ORAL Take by mouth. Cholecalciferol, Vitamin D3, 50 mcg (2,000 unit) cap Take 2 capsules by mouth once daily. COQ10, UBIQUINOL, ORAL Take 30 mg by mouth. latanoprost (XALATAN) 0.005 % ophthalmic solution Use 1 Drop in both eyes daily at bedtime. No current facility-administered medications for this visit. ALLERGIES Allergen Reactions Fragrances Cough, Shortness of Breath Benzodiazepines Mental Status Change Pt sees colors and laughing Cats Itching, Shortness of Breath Eventual wheezing Dust Mites Other: See Comments Positive allergy test Grass Pollen-Timoth* Itching Nasal congestion Mold Itching Nasal congestion Seasonal Allergies Cough Sulfa (Sulfonamide * Itching Trees Itching Nasal congestion Valium [Diazepam] Intolerance Laughing hysterically, ultra sensitive Zithromax [Azithrom* Other: See Comments nausea PAST SURGICAL HISTORY Procedure Laterality Date ARTHRP TEMPOROMANDIBULAR JOINT W/WO AUTOGRAFT 1988 CATARACT SURGERY, COMPLEX 2006 Rt AND Lt COLONOSCOPY FLX DX W/COLLJ SPEC WHEN PFRMD 11/08/2010 Colonoscopy COLONOSCOPY FLX DX W/COLLJ SPEC WHEN PFRMD 08/23/2019 [facility] repeat is not recommended NEUROPLASTY AND/TRANSPOS MEDIAN NRV CARPAL TUNNE 1990 Carpal tunnel decomp-bilateral PAST SURGICAL HISTORY OF 08-21-05 EXCISION CYST LEFT MIDDLE FINGER PAST SURGICAL HISTORY OF right foot surgery- mortons neuroma PAST SURGICAL HISTORY OF 2013 left foot vein ablation TONSILLECTOMY PRIMARY/SECONDARY AGE 12/> 1962 FAMILY HISTORY Problem Relation Age of Onset Heart Father Allergies Sister Breast Cancer Sister age of 50's with diagnosis Prostate Cancer Brother Social History Tobacco Use Smoking status: Never Smokeless tobacco: Never Vaping Use Vaping status: Never Used Substance Use Topics Alcohol use: Not Currently Drug use: No REVIEW OF SYSTEMS GENERAL: Negative for Malaise, significant weight loss, fever RESPIRATORY: Negative for cough, wheezing and shortness of breath CARDIOVASCULAR: Negative for chest pain, leg swelling and palpitations GI: Negative for abdominal discomfort, blood in stools or black stools and change in bowel habits : Negative for dysuria, frequency and incontinence MUSCULOSKELETAL: Negative for joint pain or swelling, back pain, and muscle pain. SKIN: Negative for lesions, rash, and itching. HEMATOLOGY/LYMPHOLOGY Negative for prolonged bleeding, bruising easily, and swollen (more content not included)... Normal [facility] CADY [facility] ([id number]) 1945 F Date Time Provider Department 07/27/24 YAA ASHBY During your visit today, we recorded the following information about you: Yaa Ashby PA-C 07/27/2024 11:37 AM Signed Please let patient know that her urine culture did not show an infection. I would recommend repeating the urine as discussed in 2 weeks to confirm hematuria is resolving, if not, would advise a consult to urology for evaluation. She can have this completed at the lab. Yaa Ashby PA-C 07/27/2024 Nixon Araya LPN 07/28/2024 8:57 AM Signed left message for patient to call office back and speak with triage nurse. TOYA Roca Stephanie, RN 07/29/2024 8:57 AM Signed Patient notified of results and provider's instructions. Patient verbalizes understanding. Nydia Encarnacion RN Allergies As of Date: 07/27/2024 Noted Allergy Reaction FRAGRANCES 11/28/2014 3 - Cough 12 - Shortness of Breath BENZODIAZEPINES 09/08/2014 1 - Mental Status Change Comments: Pt sees colors and laughing CATS 11/28/2014 9 - Itching 12 - Shortness of Breath Comments: Eventual wheezing DUST MITES 11/28/2014 14 - Other: See Comments Comments: Positive allergy test GRASS POLLEN-DONNA, STANDARD 11/28/2014 9 - Itching Comments: Nasal congestion MOLD 11/28/2014 9 - Itching Comments: Nasal congestion SEASONAL ALLERGIES 11/08/2010 3 - Cough SULFA (SULFONAMIDE ANTIBIOTICS) 06/13/2005 9 - Itching TREES 11/28/2014 9 - Itching Comments: Nasal congestion VALIUM (DIAZEPAM) 09/23/2013 5 - Intolerance Comments: Laughing hysterically, ultra sensitive ZITHROMAX (AZITHROMYCIN) 06/08/2019 14 - Other: See Comments Comments: nausea Date Reviewed: 07/26/2024 Reviewed by: Nixon Araya LPN - Fully Assessed Prescriptions as of 07/29/2024 - mirabegron (MYRBETRIQ) 25 mg Tb24 Take 1 tablet by mouth once daily. - melatonin 1 mg subl Dissolve 1 tablet under the tongue once daily. - escitalopram oxalate (LEXAPRO) 5 mg tablet Take 1 tablet by mouth once daily. Take one pill at night for 7 days and then increase to 2 pills at night - baclofen 10 mg tablet Take 1 tablet by mouth three times a day as needed (muscle spasms). - rosuvastatin (CRESTOR) 5 mg tablet Take 1 tablet by mouth daily at bedtime. - Boswellia cecile extract (BOSWELLIA CECILE XT, BULK,) 70 % powd 1 Each two times a day. - prasterone, DHEA, (DHEA ORAL) Take by mouth. 0.15 mg - metoprolol tartrate, short acting, (LOPRESSOR) 25 mg tablet Take 25 mg by mouth twice daily. Takes as needed for rapid HR - timolol maleate (TIMOPTIC) 0.5 % ophthalmic solution Use 1 Drop in both eyes twice daily. - warfarin (COUMADIN) 5 mg tablet Take 1 tablet by mouth daily except 7.5mg on ( [facility]) - ALPHA LIPOIC ACID ORAL Take by mouth. - Cholecalciferol, Vitamin D3, 50 mcg (2,000 unit) cap Take 2 capsules by mouth once daily. - COQ10, UBIQUINOL, ORAL Take 30 mg by mouth. - latanoprost (XALATAN) 0.005 % ophthalmic solution Use 1 Drop in both eyes daily at bedtime. Meds Comments as of 05/10/2015: Does not take antivert, ibuprofen, aleve. Does take boswelia frankincense and white willow. Problem List As Of Date 07/27/2024 Noted Resolved ALLERGIC RHINITIS NOS [J30.9] 06/19/2004 WOUND (NOT COMPLICATED) - OPEN FINGER(S) [S61.*06/14/2005 10/08/2014 GANGLION JOINT (Mucous cyst left hand 3rd digit*08/07/2005 10/08/2014 GENERAL OSTEOARTHROSIS [M15.9] 11/23/2006 Abdominal pain, unspecified site [R10.9] 11/23/2006 10/08/2014 Lumbago [M54.50] 11/16/2008 10/08/2014 Rectal bleeding [K62.5] 09/06/2010 10/08/2014 Cellulitis [L03.90] 06/24/2013 10/08/2014 Ulcer of ankle (HCC) [L97.309] 06/24/2013 10/08/2014 Venous stasis ulcer of right ankle limited to b*07/18/2013 06/09/2023 Vitamin D deficiency [E55.9] 09/20/2013 Frequency of urination [R35.0] 03/01/2014 10/08/2014 Urgency of urination [R39.15] 03/01/2014 10/08/2014 Nocturia [R35.1] 03/01/2014 Hesitancy of micturition [R39.11] 03/01/2014 Varicose veins of right lower extremity [I83.91]08/25/2014 BPPV (benign paroxysmal positional vertigo) [H8*10/30/2014 Vertigo of central origin [H81.4] 12/11/2014 Peripheral vertigo, unspecified [H81.399] 12/11/2014 Sprain of sacroiliac joint [S33.6XXA] 11/06/2015 Irritable bowel syndrome with both constipation*11/06/2015 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 Normal [facility] Bacteria Ur Culton Bacteria identified Cx Nom (U) ORGANISM ID: 1 10,000 -<50,000 CFU/ml Normal urogenital zion Normal [facility] Comment on above: Performed By: #### 6 30-4 ####[facility] LABCLIA [id number] [address] [place] CNOVon 07-26-2024 CNOV Office Visit (FAMPWS ) -- CADY [id number]) 1945 F Date Time Provider Department 07/26/24 9:00 AM YAA ASHBY During your visit today, we recorded the following information about you: Pulse Respiration Blood pressure Weight 67/minute 12/minute 124/72 73.9 kg Height 1.651 m Yaa Ashby PA-C 07/26/2024 10:06 AM Signed 07/26/2024 Patient presents with: Follow Up: problems with taking in a deep breathe, sleep issues, fell 06/22/24 was not sure if needs referral for knees SUBJECTIVE: This is a 78 year old that is here today for follow up fall on 06/22/24. She was concerned when she made the appointment that her right knee was still bothering her from the fall. Today she tells me it is much better and was able to complete her usual knee exercises. She does have some post nasal drainage and has developed a cough. She had an XR done that was negative for rib fracture after the fall, but tells me that she was having trouble taking a deep breath due to pain. Cough is non-producitve. Denies SOB, wheezing, vomiting, back pain, saddle anesthesia. Urinary frequency and urgency. Previously on Detrol LA, stopped the medication because of concern of risks of the medication. Otherwise tolerating and it worked well. She is not having increased symptoms through the night and affecting her sleep. Denies fever/chills, dysuria, hematuria. Non-smoker. History of a-fib, on coumadin, follows with [facility]. PAST MEDICAL HISTORY Diagnosis Date A-fib ([facility]) February 2021 Asthma Atrial tachycardia (HCC) 10/14/2018 BPPV (benign paroxysmal positional vertigo) 10/30/2014 Degenerative disc disease 08/10/2014 Mild Degenerative disc disease C6-C7 Mild Anterolisthesis C7-T-1`- See scanned document Essential hypertension, benign Fibromyalgia Glaucoma, open angle Hypothyroidism 10/14/2018 Varicose veins 08/25/2014 Varicose veins of other sites Venous stasis ulcer of ankle 07/18/2013 Vestibular neuronitis Vitamin D deficiency 09/20/2013 ALLERGIES Fragrances; Benzodiazepines; Cats; Dust Mites; Grass Pollen-Donna, Standard; Mold; Seasonal Allergies; Sulfa (Sulfonamide Antibiotics); Trees; Valium [Diazepam]; and Zithromax [Azithromycin] MEDICATIONS Current Outpatient Medications Medication Sig melatonin 1 mg subl Dissolve 1 tablet under the tongue once daily. escitalopram oxalate (LEXAPRO) 5 mg tablet Take 1 tablet by mouth once daily. Take one pill at night for 7 days and then increase to 2 pills at night baclofen 10 mg tablet Take 1 tablet by mouth three times a day as needed (muscle spasms). rosuvastatin (CRESTOR) 5 mg tablet Take 1 tablet by mouth daily at bedtime. Boswellia cecile extract (BOSWELLIA CECILE XT, BULK,) 70 % powd 1 Each two times a day. prasterone, DHEA, (DHEA ORAL) Take by mouth. 0.15 mg metoprolol tartrate, short acting, (LOPRESSOR) 25 mg tablet Take 25 mg by mouth twice daily. Takes as needed for rapid HR timolol maleate (TIMOPTIC) 0.5 % ophthalmic solution Use 1 Drop in both eyes twice daily. warfarin (COUMADIN) 5 mg tablet Take 1 tablet by mouth daily except 7.5mg on ( [facility]) (Patient taking differently: 7.5 mg daily) ALPHA LIPOIC ACID ORAL Take by mouth. Cholecalciferol, Vitamin D3, 50 mcg (2,000 unit) cap Take 2 capsules by mouth once daily. COQ10, UBIQUINOL, ORAL Take 30 mg by mouth. latanoprost (XALATAN) 0.005 % ophthalmic solution Use 1 Drop in both eyes daily at bedtime. No current facility-administered medications for this visit. SOCIAL HISTORY Social History Tobacco Use Smoking status: Never Smokeless tobacco: Never Vaping Use Vaping status: Never Used Substance Use Topics Alcohol use: Not Currently Drug use: No REVIEW OF SYSTEMS See HPI OBJECTIVE: BP 124/72 (BP Site: Left Arm, BP Position: Sitting, BP Cuff Size: Large Adult) Pulse 67 Resp 12 Ht 165.1 cm (5' 5") Wt 73.9 kg (162 lb 14.7 oz) SpO2 99% BMI 27.11 kg/m? APPEARANCE Well appearing, alert, in no acute distress, well-hydrated, well nourished. EYES PERRLA, conjunctiva and sclera normal. NOSE/SINUS Nares normal. Septum midline. Mucosa normal. No drainage or sinus tenderness. THROAT normal, no erythema NECK Supple, no adenopathy; HEART RRR with normal S1 and S2 LUNG clear to auscultation, No wheezing, rhonchi, rales. ABDOMEN oft, non-tender, non-distended, ASSESSMENT/PLAN: 1. Urinary urgency - ICD9: 788.63, ICD10: R39.15 (primary diagnosis) - UA DIP B/O - hematuria - URINE CULTURE, check culture. Suspect will be negative, if negative for infection repeat UA in 2 weeks, if hematuria persisting, consult to urology for evaluation. On coumadin. Denies vaginal bleeding. - URINALYSIS, WITH MICROSCOPIC - MIRABEGRON ER 25 MG TABLET,EXTENDED RELEASE 24 HR, she will contact [facility] (repeat (more content not included)... [facility] CADY BERUM[facility] ([id number]) 1945 F Date Time Provider Department 07/26/24 YAA ASHBY During your visit today, we recorded the following information about you: Yaa Ashby PA-C 07/26/2024 12:21 PM Signed Please let patient know that her CXR was normal. Advise f/u if not improving. Yaa Ashby PA-C 07/26/2024 Nixon Araya LPN 07/26/2024 12:47 PM Signed PATIENT notified and verbalized understanding. Nixon Araya LPN Allergies As of Date: 07/26/2024 Noted Allergy Reaction FRAGRANCES 11/28/2014 3 - Cough 12 - Shortness of Breath BENZODIAZEPINES 09/08/2014 1 - Mental Status Change Comments: Pt sees colors and laughing CATS 11/28/2014 9 - Itching 12 - Shortness of Breath Comments: Eventual wheezing DUST MITES 11/28/2014 14 - Other: See Comments Comments: Positive allergy test GRASS POLLEN-DONNA, STANDARD 11/28/2014 9 - Itching Comments: Nasal congestion MOLD 11/28/2014 9 - Itching Comments: Nasal congestion SEASONAL ALLERGIES 11/08/2010 3 - Cough SULFA (SULFONAMIDE ANTIBIOTICS) 06/13/2005 9 - Itching TREES 11/28/2014 9 - Itching Comments: Nasal congestion VALIUM (DIAZEPAM) 09/23/2013 5 - Intolerance Comments: Laughing hysterically, ultra sensitive ZITHROMAX (AZITHROMYCIN) 06/08/2019 14 - Other: See Comments Comments: nausea Date Reviewed: 07/26/2024 Reviewed by: Nioxn Araya LPN - Fully Assessed Prescriptions as of 07/26/2024 - mirabegron (MYRBETRIQ) 25 mg Tb24 Take 1 tablet by mouth once daily. - melatonin 1 mg subl Dissolve 1 tablet under the tongue once daily. - escitalopram oxalate (LEXAPRO) 5 mg tablet Take 1 tablet by mouth once daily. Take one pill at night for 7 days and then increase to 2 pills at night - baclofen 10 mg tablet Take 1 tablet by mouth three times a day as needed (muscle spasms). - rosuvastatin (CRESTOR) 5 mg tablet Take 1 tablet by mouth daily at bedtime. - Boswellia cecile extract (BOSWELLIA CECILE XT, BULK,) 70 % powd 1 Each two times a day. - prasterone, DHEA, (DHEA ORAL) Take by mouth. 0.15 mg - metoprolol tartrate, short acting, (LOPRESSOR) 25 mg tablet Take 25 mg by mouth twice daily. Takes as needed for rapid HR - timolol maleate (TIMOPTIC) 0.5 % ophthalmic solution Use 1 Drop in both eyes twice daily. - warfarin (COUMADIN) 5 mg tablet Take 1 tablet by mouth daily except 7.5mg on ( [facility]) - ALPHA LIPOIC ACID ORAL Take by mouth. - Cholecalciferol, Vitamin D3, 50 mcg (2,000 unit) cap Take 2 capsules by mouth once daily. - COQ10, UBIQUINOL, ORAL Take 30 mg by mouth. - latanoprost (XALATAN) 0.005 % ophthalmic solution Use 1 Drop in both eyes daily at bedtime. Meds Comments as of 05/10/2015: Does not take antivert, ibuprofen, aleve. Does take boswelia frankincense and white willow. Problem List As Of Date 07/26/2024 Noted Resolved ALLERGIC RHINITIS NOS [J30.9] 06/19/2004 WOUND (NOT COMPLICATED) - OPEN FINGER(S) [S61.*06/14/2005 10/08/2014 GANGLION JOINT (Mucous cyst left hand 3rd digit*08/07/2005 10/08/2014 GENERAL OSTEOARTHROSIS [M15.9] 11/23/2006 Abdominal pain, unspecified site [R10.9] 11/23/2006 10/08/2014 Lumbago [M54.50] 11/16/2008 10/08/2014 Rectal bleeding [K62.5] 09/06/2010 10/08/2014 Cellulitis [L03.90] 06/24/2013 10/08/2014 Ulcer of ankle (HCC) [L97.309] 06/24/2013 10/08/2014 Venous stasis ulcer of right ankle limited to b*07/18/2013 06/09/2023 Vitamin D deficiency [E55.9] 09/20/2013 Frequency of urination [R35.0] 03/01/2014 10/08/2014 Urgency of urination [R39.15] 03/01/2014 10/08/2014 Nocturia [R35.1] 03/01/2014 Hesitancy of micturition [R39.11] 03/01/2014 Varicose veins of right lower extremity [I83.91]08/25/2014 BPPV (benign paroxysmal positional vertigo) [H8*10/30/2014 Vertigo of central origin [H81.4] 12/11/2014 Peripheral vertigo, unspecified [H81.399] 12/11/2014 Sprain of sacroiliac joint [S33.6XXA] 11/06/2015 Irritable bowel syndrome with both constipation*11/06/2015 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] 08/14/2017 Varicose veins of left lower extremity with dixon*03/03/2018 Asthma [J45.909] 04/20/2018 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*06/16/2018 Paroxysmal atrial tachycardia (HCC) [I47.19] 11/29/2018 Severe episode of recurrent major depressive di*11/29/2018 Paroxysmal atrial fibrillation (HCC) [I48.0] 02/04/2019 Essential hypertension [I10] SOB (shortness of breath) [R06.02] 12/23/2021 Bilateral carotid artery stenosis [I65.23] 03/21/2024 Encounter Status:Closed by NIXON ARAYA on 07/26/24 Normal [facility] [facility] INR Coag (BldC) [Relative ti me]Ordered By: Bart Rosales on 07-26-2024 INR Coag (Bld) [Relative time] 3.2 {INR} [facility] Comment on above: Critical Value > 4.0 PT Coag (Bld) [Time]Ordered By: Bart Rosales on 07-26-2024 Bedside Prothrombin Time 33.3 SEC High 11.7-14.9 [facility] Protime w/INR Fingerstickon 07-26-2024 INR Coag (PPP) [Relative time] 3.2 {INR} Normal [facility] Comment on above: Result Comment: Crit ical Value > 4.0 Performed By: #### L 501.5200, L500.2500, L501.9520, L100.0100 #### [facility] Laboratory [address] [place], [place], [id number] Protime [place] 33.3 SEC High 11.7-14.9 [facility] Comment on above: Performed By: #### L 501.5200, L500.2500, L501.9520, L100.0100 #### [facility] [address] [place], [address] UA DIP, URINE (POC)on 2023 BILIRUBIN UA (POCT) Negative Negative Kemar [facility] CLARITY UA (POCT) Clear [facility] COLOR UA (POCT) Yellow [facility] GLUCOSE UA (POCT) Negative Negative mg/dL [facility] Hemoglobin Ql (U) Trace-intact Abnormal Negative [facility] Interpretation and review of laboratory results Abnormal [facility] KETONE UA (POCT) Negative Negative mg/dL [facility] LEUKOCYTES UA (POCT) Negative Negative [facility] NITRITE UA (POCT) Negative Negative [facility] PH UA (POCT) 7.0 4.5 - 8.0 [facility] Protein Ql (U) Negative Negative mg/dL [facility] SPECIFIC GRAVITY UA (POCT) 1.015 1.005 - 1.030 [facility] UROBILINOGEN UA (POCT) 0.2 Normal E.U./dL [facility] Location:[address], [place], [place], [id number] [place] [address] POINT OF CARE [facility] XR CHEST 2V FRONTAL/LATon XR CHEST 2V FRONTAL/LAT * * *Final Report* * * DATE OF EXAM: Jul 26 2024 10:25AM WOX [id number] - XR CHEST 2V FRONTAL/LAT / PROCEDURE REASON: Acute cough * * * * Physician Interpretation * * * * EXAMINATION: CHEST RADIOGRAPH (2 VIEW FRONTAL and LATERAL) CLINICAL HISTORY: Acute cough MQ: XC2_6 EXAM DATE/TIME: 07/26/2024 10:25 AM COMPARISON: 06/23/2011 RESULT: Lines, tubes, and devices: None. Lungs and pleura: No consolidation. No lung mass. No pleural effusion. No pneumothorax. Cardiomediastinal silhouette: Normal cardiomediastinal silhouette. Bones and soft tissues: Degenerative changes.. IMPRESSION: No acute radiographic abnormality. Audit Director: MARIE Transcribe Date/Time: Jul 26 2024 12:11P Dictated by : DEBBIE GARCIA MD This examination was interpreted and the report reviewed and electronically signed by: DEBBIE GARCIA MD on Jul 26 2024 12:12PM EST [id number] Normal [facility] XR Chest PA and Lateralon IMPRESSION: No acute radiographic abnormality. Audit Director: [facility] Transcribe Date/Time: Jul 26 2024 12:11P Dictated by : DEBBIE GARCIA MD This examination was interpreted and the report reviewed and electronically signed by: DEBBIE GARCIA MD on Jul 26 2024 12:12PM EST DIVISION OF RADIOLOGY * * *Final Report* * * DATE OF EXAM: Jul 26 2024 10:25AM WOX [id number] - XR CHEST 2V FRONTAL/LAT / PROCEDURE REASON: Acute cough * * * * Physician Interpretation * * * * EXAMINATION: CHEST RADIOGRAPH (2 VIEW FRONTAL & LATERAL) CLINICAL HISTORY: Acute cough MQ: XC2_6 EXAM DATE/TIME: 07/26/2024 10:25 AM COMPARISON: 06/23/2011 RESULT: Lines, tubes, and devices: None. Lungs and pleura: No consolidation. No lung mass. No pleural effusion. No pneumothorax. Cardiomediastinal silhouette: Normal cardiomediastinal silhouette. Bones and soft tissues: Degenerative changes.. DIVISION OF RADIOLOGY Provider, Elsa Raphael - 07/26/2024 * * *Final Report* * * DATE OF EXAM: Jul 26 2024 10:25AM WOX 5291 - XR CHEST 2V FRONTAL/LAT / PROCEDURE REASON: Acute cough * * * * Physician Interpretation * * * * EXAMINATION: CHEST RADIOGRAPH (2 VIEW FRONTAL & LATERAL) CLINICAL HISTORY: Acute cough MQ: XC2_6 EXAM DATE/TIME: 07/26/2024 10:25 AM COMPARISON: 06/23/2011 RESULT: Lines, tubes, and devices: None. Lungs and pleura: No consolidation. No lung mass. No pleural effusion. No pneumothorax. Cardiomediastinal silhouette: Normal cardiomediastinal silhouette. Bones and soft tissues: Degenerative changes.. IMPRESSION IMPRESSION: No acute radiographic abnormality. Audit Director: [facility] Transcribe Date/Time: Jul 26 2024 12:11P Dictated by : DEBBIE GARCIA MD This examination was interpreted and the report reviewed and electronically signed by: DEBBIE GARCIA MD on Jul 26 2024 12:12PM EST [facility] Radiology Study observation (narrative) [facility] XR Chest PA and LateralOrder ed By: Cc [facility] on [facility]-20[facility] C[facility]N Tele[facility] (INTMWS) -- CADY BERUMEN ([id number]) 1945 F Date Time Provider Department 06/29/24 MOON TEIXEIRA During your visit today, we recorded the following information about you: Nydia Encarnacion RN 06/29/2024 12:31 PM Signed Patient calling and asking about the results of X ray she had done on 06/27/2024. Please review and advise, LEANDER Vega Joy, APRN.FILE SYSTEM INSTALLER 06/29/2024 1:42 PM Signed No concerns on xray. Recommend continuing with dr. Quintero order for physical therapy. Thank you José Miguel Saldaña APRN.FILE SYSTEM INSTALLER Patricia Perkins LPN 06/29/2024 2:02 PM Signed Pt notified of results AND recommendation. Pt voiced understanding. Patricia Perkins LPN Allergies As of Date: 06/29/2024 Noted Allergy Reaction FRAGRANCES 11/28/2014 3 - Cough 12 - Shortness of Breath BENZODIAZEPINES 09/08/2014 1 - Mental Status Change Comments: Pt sees colors and laughing CATS 11/28/2014 9 - Itching 12 - Shortness of Breath Comments: Eventual wheezing DUST MITES 11/28/2014 14 - Other: See Comments Comments: Positive allergy test GRASS POLLEN-DONNA, STANDARD 11/28/2014 9 - Itching Comments: Nasal congestion MOLD 11/28/2014 9 - Itching Comments: Nasal congestion SEASONAL ALLERGIES 11/08/2010 3 - Cough SULFA (SULFONAMIDE ANTIBIOTICS) 06/13/2005 9 - Itching TREES 11/28/2014 9 - Itching Comments: Nasal congestion VALIUM (DIAZEPAM) 09/23/2013 5 - Intolerance Comments: Laughing hysterically, ultra sensitive ZITHROMAX (AZITHROMYCIN) 06/08/2019 14 - Other: See Comments Comments: nausea Date Reviewed: 06/27/2024 Reviewed by: Nixon Araya LPN - Fully Assessed Reason for Visit: Xray Results [439] Prescriptions as of 06/29/2024 - melatonin 1 mg subl Dissolve 1 tablet under the tongue once daily. - escitalopram oxalate (LEXAPRO) 5 mg tablet Take 1 tablet by mouth once daily. Take one pill at night for 7 days and then increase to 2 pills at night - baclofen 10 mg tablet Take 1 tablet by mouth three times a day as needed (muscle spasms). - rosuvastatin (CRESTOR) 5 mg tablet Take 1 tablet by mouth daily at bedtime. - Boswellia cecile extract (BOSWELLIA CECILE XT, BULK,) 70 % powd 1 Each two times a day. - prasterone, DHEA, (DHEA ORAL) Take by mouth. 0.15 mg - metoprolol tartrate, short acting, (LOPRESSOR) 25 mg tablet Take 25 mg by mouth twice daily. Takes as needed for rapid HR - timolol maleate (TIMOPTIC) 0.5 % ophthalmic solution Use 1 Drop in both eyes twice daily. - warfarin (COUMADIN) 5 mg tablet Take 1 tablet by mouth daily except 7.5mg on ( [facility]) - ALPHA LIPOIC ACID ORAL Take by mouth. - Cholecalciferol, Vitamin D3, 50 mcg (2,000 unit) cap Take 2 capsules by mouth once daily. - COQ10, UBIQUINOL, ORAL Take 30 mg by mouth. - latanoprost (XALATAN) 0.005 % ophthalmic solution Use 1 Drop in both eyes daily at bedtime. Meds Comments as of 05/10/2015: Does not take antivert, ibuprofen, aleve. Does take boswelia frankincense and white willow. Problem List As Of Date 06/29/2024 Noted Resolved ALLERGIC RHINITIS NOS [J30.9] 06/19/2004 WOUND (NOT COMPLICATED) - OPEN FINGER(S) [S61.*06/14/2005 10/08/2014 GANGLION JOINT (Mucous cyst left hand 3rd digit*08/07/2005 10/08/2014 GENERAL OSTEOARTHROSIS [M15.9] 11/23/2006 Abdominal pain, unspecified site [R10.9] 11/23/2006 10/08/2014 Lumbago [M54.50] 11/16/2008 10/08/2014 Rectal bleeding [K62.5] 09/06/2010 10/08/2014 Cellulitis [L03.90] 06/24/2013 10/08/2014 Ulcer of ankle (HCC) [L97.309] 06/24/2013 10/08/2014 Venous stasis ulcer of right ankle limited to b*07/18/2013 06/09/2023 Vitamin D deficiency [E55.9] 09/20/2013 Frequency of urination [R35.0] 03/01/2014 10/08/2014 Urgency of urination [R39.15] 03/01/2014 10/08/2014 Nocturia [R35.1] 03/01/2014 Hesitancy of micturition [R39.11] 03/01/2014 Varicose veins of right lower extremity [I83.91]08/25/2014 BPPV (benign paroxysmal positional vertigo) [H8*10/30/2014 Vertigo of central origin [H81.4] 12/11/2014 Peripheral vertigo, unspecified [H81.399] 12/11/2014 Sprain of sacroiliac joint [S33.6XXA] 11/06/2015 Irritable bowel syndrome with both constipation*11/06/2015 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] 08/14/2017 Varicose veins of left lower extremity with dixon*03/03/2018 Asthma [J45.909] 04/20/2018 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*06/16/2018 Paroxysmal atrial tachycardia (HCC) [I47.19] 11/29/2018 Severe episode of recurrent major depressive di*11/29/2018 Paroxysmal atrial fibrillation (HCC) [I48.0] 02/04/2019 Essential hypertension [I10] SOB (shortness of breath) [R06.02] 12/23/2021 Bilateral carotid artery stenosis [I65.23] 03/21/2024 Encounter Status:Closed by PATRICIA PERKINS on 06/29/24 [facility] CNOVon 06-27-2024 CNOV Office Visit (INTMWS ) -- CADY BERUMEN ([id number]) 1945 F Date Time Provider Department 06/27/24 10:00 AM MOON TEIXEIRA INTMWS During your visit today, we recorded the following information about you: Pulse Respiration Blood pressure Weight 53/minute 12/minute 130/72 73 kg Height 1.651 m Moon Teixeira MD 06/27/2024 2:01 PM Signed Reason for Visit Patient presents with: ED Follow-up: fall on 07/23/24 Cady Berumen is a 78 year old female who presents here today for Above Complaints.. Health Maintenance Spirometry Anxiety Screening BP Controlled (<130/80) Advance Directive Discussion HPI This is a very pleasant 78-year-old with a past medical history of paroxysmal A-fib, essential hypertension, asthma, irritable bowel, allergic rhinitis, severe episode of recurrent major depressive disorder. She is here for follow up. Moved to a new place. It is the [facility] [employer]. It is a [place] community of older people who care for each other, they are kind, and check on each other. She now knows around 16 people when she just knew 4 dogs before, and she is loving the amount she can garden there. She has been taking the lexapro for the past few weeks currently on a taper because she is doing very well right now and does not want to be in the e d. Gone for therapy and now she is doing much better, The change in environment helped her a lot too. 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 A squad had to be called, her lip split open, ad her jaw hurts as she fell on it. If she coughs or moves the wrong way it really hurts. Right now it hurts on the left side of the ribs. No problem-specific Assessment AND Plan notes found for this encounter. PAST MEDICAL HISTORY Diagnosis Date A-fib (HCC) February 2021 Asthma Atrial tachycardia (HCC) 10/14/2018 BPPV (benign paroxysmal positional vertigo) 10/30/2014 Degenerative disc disease 08/10/2014 Mild Degenerative disc disease C6-C7 Mild Anterolisthesis C7-T-1`- See scanned document Essential hypertension, benign Fibromyalgia Glaucoma, open angle Hypothyroidism 10/14/2018 Varicose veins 08/25/2014 Varicose veins of other sites Venous stasis ulcer of ankle 07/18/2013 Vestibular neuronitis Vitamin D deficiency 09/20/2013 PAST SURGICAL HISTORY Procedure Laterality Date ARTHRP TEMPOROMANDIBULAR JOINT W/WO AUTOGRAFT 1988 CATARACT SURGERY, COMPLEX 2006 Rt AND Lt COLONOSCOPY FLX DX W/COLLJ SPEC WHEN PFRMD 11/08/2010 Colonoscopy COLONOSCOPY FLX DX W/COLLJ SPEC WHEN PFRMD [facility] AND/TRANSPOS MEDIAN NRV CARPAL TUNNE 1990 Carpal tunnel decomp-bilateral PAST SURGICAL HISTORY OF 08-21-05 EXCISION CYST LEFT MIDDLE FINGER PAST SURGICAL HISTORY OF right foot surgery- mortons neuroma PAST SURGICAL HISTORY OF 2013 left foot vein ablation TONSILLECTOMY PRIMARY/SECONDARY AGE 12/ 1962 FAMILY HISTORY Problem Relation Age of Onset Heart Father Allergies Sister Breast Cancer Sister age of 50's with diagnosis Prostate Cancer Brother Social History Tobacco Use Smoking status: Never Smokeless tobacco: Never Vaping Use Vaping status: Never Used Substance Use Topics Alcohol use: Not Currently Drug use: No Past medical history, appointments, medications, allergies reviewed. Pertinent Lab/Diagnostic Studies are reviewed and discussed today Current Outpatient Medications: melatonin 1 mg subl escitalopram oxalate (LEXAPRO) 5 mg tablet baclofen 10 mg tablet rosuvastatin (CRESTOR) 5 mg tablet Boswellia cecile extract (BOSWELLIA CECILE XT, BULK,) 70 % powd prasterone, DHEA, (DHEA ORAL) metoprolol tartrate, short acting, (LOPRESSOR) 25 mg tablet timolol maleate (TIMOPTIC) 0.5 % ophthalmic solution warfarin (COUMADIN) 5 mg tablet ALPHA LIPOIC ACID ORAL Cholecalciferol, Vitamin D3, 50 mcg (2,000 unit) cap COQ10, UBIQUINOL, ORAL latanoprost (XALATAN) 0.005 % ophthalmic solution Review of Systems CONSTITUTIONAL: No fevers, chills night sweats, unintended weight loss CARDIOVASCULAR: No chest pain, dyspnea, palpitations, orthopnea, PND, ankle edema. PULM: No dyspnea, unexplained cough. GI: No dysphagia/odynophagia, problematic reflux, constipation, diarrhea, changes in stool habits, hematochezia, melena. : No new urinary complaints, including dysuria, gross hematuria or pyuria. NEURO: No new balance problems, peripheral weakness/paresthesias or numbness of concern. Physical Exam BP 130/72 (BP Site: Right Arm, BP Position: Sitting, BP Cuff Size: Large Adult) Pulse (!) 53 Re (more content not included)... [facility] (INTMWS[facility] -- CADY BERUMEN ([id number]) 1945 F Date Time Provider Department 06/27/24 MOON TEIXEIRA INTMWS During your visit today, we recorded the following information about you: Vernell James RN 06/27/2024 8:33 AM Signed Patient calling to make ER Follow Up Appointment and discuss current residual sx's she is having. Appt made with PCP for today. Pt states she went to [facility] ER on 06/22/24 after falling forward onto her front side. Has abrasion below her nose, redness to hand and residual soreness throughout. States she had Head CT and other xrays-no fractures. Reports this morning she noted her left side to be more sore, especially with certain movements, taking in a deep breath or coughing. Reports left side pain at rest is 5/10 and 8/10 at worst with certain activities. Denies chest pain, SOB or lightheadedness/dizziness. Denies any severe sx's at this time. Pt aware to return to ER for severe sx's as discussed during call. Vernell James RN Allergies As of Date: 06/27/2024 Noted Allergy Reaction FRAGRANCES 11/28/2014 3 - Cough 12 - Shortness of Breath BENZODIAZEPINES 09/08/2014 1 - Mental Status Change Comments: Pt sees colors and laughing CATS 11/28/2014 9 - Itching 12 - Shortness of Breath Comments: Eventual wheezing DUST MITES 11/28/2014 14 - Other: See Comments Comments: Positive allergy test GRASS POLLEN-DONNA, STANDARD 11/28/2014 9 - Itching Comments: Nasal congestion MOLD 11/28/2014 9 - Itching Comments: Nasal congestion SEASONAL ALLERGIES 11/08/2010 3 - Cough SULFA (SULFONAMIDE ANTIBIOTICS) 06/13/2005 9 - Itching TREES 11/28/2014 9 - Itching Comments: Nasal congestion VALIUM (DIAZEPAM) 09/23/2013 5 - Intolerance Comments: Laughing hysterically, ultra sensitive ZITHROMAX (AZITHROMYCIN) 06/08/2019 14 - Other: See Comments Comments: nausea Date Reviewed: 05/06/2024 Reviewed by: Mago Cerrato LPN - Fully Assessed Reason for Visit: Patient Update [1234] Prescriptions as of 06/27/2024 - melatonin 1 mg subl Dissolve 1 tablet under the tongue once daily. - escitalopram oxalate (LEXAPRO) 5 mg tablet Take 1 tablet by mouth once daily. Take one pill at night for 7 days and then increase to 2 pills at night - baclofen 10 mg tablet Take 1 tablet by mouth three times a day as needed (muscle spasms). - rosuvastatin (CRESTOR) 5 mg tablet Take 1 tablet by mouth daily at bedtime. - Boswellia cecile extract (BOSWELLIA CECILE XT, BULK,) 70 % powd 1 Each two times a day. - prasterone, DHEA, (DHEA ORAL) Take by mouth. 0.15 mg - metoprolol tartrate, short acting, (LOPRESSOR) 25 mg tablet Take 25 mg by mouth twice daily. Takes as needed for rapid HR - timolol maleate (TIMOPTIC) 0.5 % ophthalmic solution Use 1 Drop in both eyes twice daily. - warfarin (COUMADIN) 5 mg tablet Take 1 tablet by mouth daily except 7.5mg on ( [facility]) - ALPHA LIPOIC ACID ORAL Take by mouth. - Cholecalciferol, Vitamin D3, 50 mcg (2,000 unit) cap Take 2 capsules by mouth once daily. - COQ10, UBIQUINOL, ORAL Take 30 mg by mouth. - latanoprost (XALATAN) 0.005 % ophthalmic solution Use 1 Drop in both eyes daily at bedtime. Meds Comments as of 05/10/2015: Does not take antivert, ibuprofen, aleve. Does take boswelia frankincense and white willow. Problem List As Of Date 06/27/2024 Noted Resolved ALLERGIC RHINITIS NOS [J30.9] 06/19/2004 WOUND (NOT COMPLICATED) - OPEN FINGER(S) [S61.*06/14/2005 10/08/2014 GANGLION JOINT (Mucous cyst left hand 3rd digit*08/07/2005 10/08/2014 GENERAL OSTEOARTHROSIS [M15.9] 11/23/2006 Abdominal pain, unspecified site [R10.9] 11/23/2006 10/08/2014 Lumbago [M54.50] 11/16/2008 10/08/2014 Rectal bleeding [K62.5] 09/06/2010 10/08/2014 Cellulitis [L03.90] 06/24/2013 10/08/2014 Ulcer of ankle (HCC) [L97.309] 06/24/2013 10/08/2014 Venous stasis ulcer of right ankle limited to b*07/18/2013 06/09/2023 Vitamin D deficiency [E55.9] 09/20/2013 Frequency of urination [R35.0] 03/01/2014 10/08/2014 Urgency of urination [R39.15] 03/01/2014 10/08/2014 Nocturia [R35.1] 03/01/2014 Hesitancy of micturition [R39.11] 03/01/2014 Varicose veins of right lower extremity [I83.91]08/25/2014 BPPV (benign paroxysmal positional vertigo) [H8*10/30/2014 Vertigo of central origin [H81.4] 12/11/2014 Peripheral vertigo, unspecified [H81.399] 12/11/2014 Sprain of sacroiliac joint [S33.6XXA] 11/06/2015 Irritable bowel syndrome with both constipation*11/06/2015 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] 08/14/2017 Varicose veins of left lower extremity with dixon*03/03/2018 Asthma [J45.909] 04/20/2018 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*06/16/2018 Paroxysmal atrial tachycardia (HCC) [I47.19] 11/29/2018 Severe episode of recurrent major depressive di*11/29/2018 Paroxysmal atrial fibrillation (HCC) [I48.0] 02/04/2019 [facility] (more content not included)... Normal [facility] CNPN Telephone (INTMWS) -- FLORIDACADY Clarke ([id number]) 1945 F Date Time Provider Department 06/27/24 MOON TEIXEIRA INTMWS During your visit today, we recorded the following information about you: Chico Rodríguez MA 06/27/2024 11:06 AM Signed Consult to GI faxed to Dr. Mata's office. VIDA Alicea Stephanie, RN 07/08/2024 1:31 PM Signed Patient calls and states that Dr. John's office states that they still have not received GI referral. Referral faxed again to Dr. John's office. Received fax confirmation that fax went through. Nydia Encarnacion RN Allergies As of Date: 06/27/2024 Noted Allergy Reaction FRAGRANCES 11/28/2014 3 - Cough 12 - Shortness of Breath BENZODIAZEPINES 09/08/2014 1 - Mental Status Change Comments: Pt sees colors and laughing CATS 11/28/2014 9 - Itching 12 - Shortness of Breath Comments: Eventual wheezing DUST MITES 11/28/2014 14 - Other: See Comments Comments: Positive allergy test GRASS POLLEN-DONNA, STANDARD 11/28/2014 9 - Itching Comments: Nasal congestion MOLD 11/28/2014 9 - Itching Comments: Nasal congestion SEASONAL ALLERGIES 11/08/2010 3 - Cough SULFA (SULFONAMIDE ANTIBIOTICS) 06/13/2005 9 - Itching TREES 11/28/2014 9 - Itching Comments: Nasal congestion VALIUM (DIAZEPAM) 09/23/2013 5 - Intolerance Comments: Laughing hysterically, ultra sensitive ZITHROMAX (AZITHROMYCIN) 06/08/2019 14 - Other: See Comments Comments: nausea Date Reviewed: 06/27/2024 Reviewed by: Nixon Araya LPN - Fully Assessed Reason for Visit: Orders [681] Prescriptions as of 07/08/2024 - melatonin 1 mg subl Dissolve 1 tablet under the tongue once daily. - escitalopram oxalate (LEXAPRO) 5 mg tablet Take 1 tablet by mouth once daily. Take one pill at night for 7 days and then increase to 2 pills at night - baclofen 10 mg tablet Take 1 tablet by mouth three times a day as needed (muscle spasms). - rosuvastatin (CRESTOR) 5 mg tablet Take 1 tablet by mouth daily at bedtime. - Boswellia cecile extract (BOSWELLIA CECILE XT, BULK,) 70 % powd 1 Each two times a day. - prasterone, DHEA, (DHEA ORAL) Take by mouth. 0.15 mg - metoprolol tartrate, short acting, (LOPRESSOR) 25 mg tablet Take 25 mg by mouth twice daily. Takes as needed for rapid HR - timolol maleate (TIMOPTIC) 0.5 % ophthalmic solution Use 1 Drop in both eyes twice daily. - warfarin (COUMADIN) 5 mg tablet Take 1 tablet by mouth daily except 7.5mg on ( [facility]) - ALPHA LIPOIC ACID ORAL Take by mouth. - Cholecalciferol, Vitamin D3, 50 mcg (2,000 unit) cap Take 2 capsules by mouth once daily. - COQ10, UBIQUINOL, ORAL Take 30 mg by mouth. - latanoprost (XALATAN) 0.005 % ophthalmic solution Use 1 Drop in both eyes daily at bedtime. Meds Comments as of 05/10/2015: Does not take antivert, ibuprofen, aleve. Does take boswelia frankincense and white willow. Problem List As Of Date 06/27/2024 Noted Resolved ALLERGIC RHINITIS NOS [J30.9] 06/19/2004 WOUND (NOT COMPLICATED) - OPEN FINGER(S) [S61.*06/14/2005 10/08/2014 GANGLION JOINT (Mucous cyst left hand 3rd digit*08/07/2005 10/08/2014 GENERAL OSTEOARTHROSIS [M15.9] 11/23/2006 Abdominal pain, unspecified site [R10.9] 11/23/2006 10/08/2014 Lumbago [M54.50] 11/16/2008 10/08/2014 Rectal bleeding [K62.5] 09/06/2010 10/08/2014 Cellulitis [L03.90] 06/24/2013 10/08/2014 Ulcer of ankle (HCC) [L97.309] 06/24/2013 10/08/2014 Venous stasis ulcer of right ankle limited to b*07/18/2013 06/09/2023 Vitamin D deficiency [E55.9] 09/20/2013 Frequency of urination [R35.0] 03/01/2014 10/08/2014 Urgency of urination [R39.15] 03/01/2014 10/08/2014 Nocturia [R35.1] 03/01/2014 Hesitancy of micturition [R39.11] 03/01/2014 Varicose veins of right lower extremity [I83.91]08/25/2014 BPPV (benign paroxysmal positional vertigo) [H8*10/30/2014 Vertigo of central origin [H81.4] 12/11/2014 Peripheral vertigo, unspecified [H81.399] 12/11/2014 Sprain of sacroiliac joint [S33.6XXA] 11/06/2015 Irritable bowel syndrome with both constipation*11/06/2015 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] 08/14/2017 Varicose veins of left lower extremity with dixon*03/03/2018 Asthma [J45.909] 04/20/2018 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*06/16/2018 Paroxysmal atrial tachycardia (HCC) [I47.19] 11/29/2018 Severe episode of recurrent major depressive di*11/29/2018 Paroxysmal atrial fibrillation (HCC) [I48.0] 02/04/2019 Essential hypertension [I10] SOB (shortness of breath) [R06.02] 12/23/2021 Bilateral carotid artery stenosis [I65.23] 03/21/2024 Encounter Status:Closed by CHICO RODRÍGUEZ on 06/27/24 [facility]/OBL LTon 06-27 XR RIBS 2V AP/OBL LT * * *Final Report* * * DATE OF EXAM: Jun 27 2024 11:26AM WOX [id number] - XR RIBS 2V AP/OBL LT / PROCEDURE REASON: multiple diagnoses * * * * Physician Interpretation * * * * History: Painful rib following fall. FINDINGS: 2 views of the left ribs have been obtained. There is no acute fracture. No bony abnormality is seen. Underlying lung is clear of infiltrate. Visualized portions of the right lung and the heart appears stable. Electronic device noted. IMPRESSION: No acute bony abnormality is seen. Audit Director: MARIE Transcribe Date/Time: Jun 29 2024 9:14A Dictated by : STEVAN DENNY MD This examination was interpreted and the report reviewed and electronically signed by: STEVAN DENNY MD on Jun 29 2024 9:16AM EST [id number] Normal [facility] Brain/Head without Contrasto n 06-22-2024 Brain/Head without Contrast [facility] Imaging Services [address] [place] [address] [id number] Brain/Head without Contrast MR#: [id number] Acct: [id number] Name: CADY BERUMEN Rep #: [id number] : 1945 F 78 From: Eleuterio Prasad MD PCP: Dr. Moon Teixeira MD Status: REG ER Study: Brain/Head without Contrast Date of Exam: 05/26 Exam# [id number] Ordering Dr: Carol Mccarthy DO [id number] STUDY: CT BRAIN WITHOUT CONTRAST REASON FOR EXAM: Female, 78 years old. Injury/Pain RADIATION DOSAGE (If Supplied By Facility): CTDIvol = ( 44.99 ) mGy, DLP = ( 846.73 ) mGycm TECHNIQUE: Transaxial CT imaging of the brain was performed without administration of intravenous contrast material. Individualized dose optimization techniques were used for this CT. COMPARISON: No relevant priors. FINDINGS: Normal soft tissue structures. Normal calvarium. Calcific plaquing of the cavernous carotids Mild atrophy and moderate periventricular white matter ischemic change. Normal basal ganglia and thalami. Normal brainstem. Normal cerebellum. There is no intracranial hemorrhage. There are no findings of an acute ischemic infarction. Normal visualized paranasal sinuses. Postsurgical changes of the orbits CT/Brain/Head without Contrast IMPRESSION: Mild atrophy and moderate periventricular white matter ischemic changes. No evidence for acute intracranial bleed Electronically Signed: Eleuterio Prasad MD at 17:40 EDT , CC: Dr. Moon Teixeira MD; Dr. Carol Mccarthy DO Audit Director: Signed Normal [facility] CBC W/Diff, Automatedon 10-3 0-2023 Absolute Lymph 1.45 X10 3/uL Normal 0.83-4.51 [facility] Comment on above: Performed By: #### L 300.3900, L100.0100 #### [facility] Laboratory [address] [place], [address] Absolute Neut 3.7 X10 3/uL Normal 2.0-7.7 [facility] Comment on above: Performed By: #### L 300.3900, L100.0100 #### [facility] [address] [place], [address] Basophils/100 WBC (Bld) 1.3 % High 0-1 [facility] Comment on above: Performed By: #### L 300.3900, L100.0100 #### [facility] [address] [place], [address] Eosinophils/100 WBC (Bld) 3.4 % Normal 0-5 [facility] Comment on above: Performed By: #### L 300.3900, L100.0100 #### [facility] [address] [place], [address] Erythrocyte distribution width (RBC) [Ratio] 13.3 % Normal 11.6-14.6 [facility] Comment on above: Performed By: #### L 300.3900, L100.0100 #### [facility] [address] [place], [address] Hematocrit (Bld) [Volume fraction] 39.7 % Normal 37-47 [facility] Comment on above: Performed By: #### L 300.3900, L100.0100 #### [facility] [address] [place], [address] Hemoglobin (Bld) [Mass/Vol] 12.9 g/dL Normal 12.0-15.0 [facility] Comment on above: Performed By: #### L 300.3900, L100.0100 #### [facility] [address] [place], [address] IG% 0.500 Normal 0.0-0.9 [facility] Comment on above: Result Comment: IG% - Immature Granulocytes (promyelocytes, myelocytes and metamyelocytes) > 1% indicates that a LEFT SHIFT is Present. Performed By: #### L 300.3900, L100.0100 #### [facility] [address] [place], [address] Lymphocytes/100 WBC (Bld) 23.3 % Normal 19-41 [facility] Comment on above: Performed By: #### L 300.3900, L100.0100 #### [facility] [address] [place], [address] MCH (RBC) [Entitic mass] 31.5 pg Normal 27.0-32.0 [facility] Comment on above: Performed By: #### L 300.3900, L100.0100 #### [facility] [address] [place], [address] MCHC (RBC) [Mass/Vol] 32.5 g/dL Normal 32-36 [facility] Comment on above: Performed By: #### L 300.3900, L100.0100 #### [facility] [address] [place], [address] MCV (RBC) [Entitic vol] 96.8 fL Normal 81-99 [facility] Comment on above: Performed By: #### L 300.3900, L100.0100 #### [facility] [address] [place], [address] Monocytes/100 WBC (Bld) 12.2 % High 0-10 [facility] Comment on above: Performed By: #### L 300.3900, L100.0100 #### [facility] [address] [place], [address] Neutrophils/100 WBC (Bld) 59.3 % Normal 47-70 [facility] Comment on above: Performed By: #### L 300.3900, L100.0100 #### [facility] [address] [place], [address] Nucleated RBC (Bld) [#/Vol] 0 10*3/uL Normal 0-5 [facility] Comment on above: Performed By: #### L 300.3900, L100.0100 #### [facility] [address] [place], [address] Platelet mean volume (Bld) [Entitic vol] 12.4 fL High 6.2-12.0 [facility] Comment on above: Performed By: #### L 300.3900, L100.0100 #### [facility] [address] [place], [address] Platelets (Bld) [#/Vol] 179 10*3/uL Normal 150-450 [facility] Comment on above: Performed By: #### L 300.3900, L100.0100 #### [facility] [address] [place], [address] RBC (Bld) [#/Vol] 4.10 10*6/uL Low 4.2-5.4 [facility] Comment on above: Performed By: #### L 300.3900, L100.0100 #### [facility] [address] [place], [address] RDW SD 47.7 fl High 35.1-43.9 [facility] Comment on above: Performed By: #### L 300.3900, L100.0100 #### [facility] [address] [place], [address] WBC (Bld) [#/Vol] 6.2 10*3/uL Normal 4.4-11.0 [facility] Comment on above: Performed By: #### L 300.3900, L100.0100 #### [facility] [address] [place], [address] Emergency Department Summary on 06-22-2024 Emergency Department Summary [facility] Medical Records Department [address] [place] [address] Emergency Department Summary 06/22/24 MR#: [id number] Acct: [id number] Name: CADY BERUMEN Rep #: [id number] : 1945 78 From: Carol Mccarthy DO PCP: Dr. Moon Teixeira MD Status:DEP ER Location: ED HPI History of Present Illness Chief Complaint: Fall Informant: patient Narrative Narrative: Patient is a 78-year-old female with history of proximal atrial fibrillation, on Coumadin, as well as obstructive sleep apnea and hypertension presenting for evaluation after mechanical fall. Patient lives at [facility] independently. She was walking up a curb when there was a little lip of cement that she did not clear. Her shoe got stuck and this caused her to trip. She fell forward landing bilateral knees, hands and hit the left side of her face. She denies loss of consciousness but states that her right jaw is actually hurting. She states that she also chipped a tooth and has multiple abrasions. Denies any loss of consciousness. Was in her normal state health for this fall. No other complaints or concerns reported at this time. Tetanus Immunization: Unknown [facility] Medical History Shortness of breath PRAMOD (obstructive sleep apnea) long term (current) use of 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 Paroxysmal atrial fibrillation Change in bowel habit Asthma Near syncope Atrial tachycardia (10/14/18) Varicose vein of leg Vestibular neuritis Osteopenia Osteoarthritis Chronic venous insufficiency Glaucoma Essential (primary) hypertension Home Medications ???Medication ???Instructions ???Recorded ???Last Taken ???Type cholecalciferol (vitamin D3) 25 1,000 unit PO BID vitamin 03/10/16 10/11/22 History mcg (1,000 unit) tablet latanoprost 0.005 % eye drops 1 drp EACH EYE [facility] eye health 03/10/16 10/11/22 History coenzyme Q10 50 mg chewable tablet 30 mg PO DAILY 06/07/19 10/11/22 History timolol 0.25 % eye drops 1 drp ophthalmic (eye) BID 12/02/21 10/11/22 History metoprolol tartrate 25 mg tablet 12.5 mg PO BID PRN afib 11/11/23 Unknown History warfarin 5 mg tablet 7.5 mg PO DAILY #135 tabs 12/28/23 Unknown Rx Allergy/AdvReac Type Severity Reaction Status Date / Time cat dander Allergy Mild congestion Verified 06/22/24 16:05 grass pollen Allergy Mild Cough, Verified 06/22/24 16:05 rhinitis house dust Allergy Mild Cough, Verified 06/22/24 16:05 rhinitis mold Allergy Mild Cough, Verified 06/22/24 16:05 rhinitis tree and shrub pollen Allergy Mild Cough, Verified 06/22/24 16:05 rhinitis Sulfa (Sulfonamide Allergy Itching Verified 06/22/24 16:05 Antibiotics) losartan AdvReac Severe dizziness, Verified 06/22/24 16:05 severe amlodipine AdvReac Intermediate dizziness Verified 06/22/24 16:05 lisinopril AdvReac Intermediate Nagging Verified 06/22/24 16:05 dry cough Benzodiazepines AdvReac Other Verified 06/22/24 16:05 diazepam (From Valium) AdvReac Other Verified 06/22/24 16:05 Family History Father Myocardial infarction from [place] age 61 Heart disease Diabetes Sister Breast cancer Other long term (current) use of 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 Surgical History history vein surgery history TMJ surgery History of cataract surgery S/P excision of Ramos's neuroma History of carpal tunnel release History of tonsillectomy Social History household members: spouse housing: house Smoking Status: Never smoker alcohol intake: current alcohol intake frequency: a few times a month substance use type: does not use what type of physical activity do you participate in: none do you feel safe at home: Yes ROS ROS ED Constitutional Constitutional ED: Denies chills or fever(s) Eyes Eyes: Denies blurry vision or change in vision ENT ENT ED: Reports other Details: right jaw pain, chipped tooth. Cardiovascular Cardiovascular: Denies chest pain Respiratory/Chest Respiratory/Chest: Denies cough Gastrointestinal Gastrointestinal: Denies nausea or vomiting Musculoskeletal Musculoskeletal: Reports arthralgias Neurologic Neurologic: Denies headache(s) or paresthesias Hematologic/Lymphatic Hematologic/Lymphatic: Reports easy bleeding, easy bruising and other Details: on Coumadin EXAM Physical Exam Const Vital Signs: 06/22/24 16:05 06/22/24 16:09 06/22/24 18:04 Temperature 98.1 F Temperature Source Oral Pulse Rate 65 78 Respiratory Rate 18 18 Respiratory Effort Normal Non-Labored Respiratory Depth Normal Respiratory Pattern Normal Blood Pressure 156/72 H 153/72 H Blood Pres (more content not included)... Normal [facility] Hand Min 3 Viewson 4 Hand Min 3 Views [facility] Imaging Services [address] [place], [place] [address] Hand Min 3 Views MR#: [id number] Acct: [id number] Name: CADY BERUMEN Rep #: [id number] : 1945 F 78 From: Eleuterio Prasad MD PCP: Dr. Moon Teixeira MD Status: REG ER Study: Hand Min 3 Views Date of Exam: 06/22/24 Exam# [id number] Ordering Dr: Carol Mccarthy DO [id number] STUDY: X-RAY - RIGHT HAND REASON FOR EXAM: Female, 78 years old. TRAUMA TECHNIQUE: 3 view(s) of the hand. COMPARISON: None. FINDINGS: Normal radiocarpal articulation. Normal distal radioulnar joint. Normal visualized carpal bones. Normal carpal articulations Normal carpometacarpal articulation of the thumb. Normal second through fifth carpometacarpal joints. Normal metacarpi. Degenerative changes of the metacarpophalangeal joint of the thumb. Normal interphalangeal joint of the thumb. Normal proximal and distal phalanges of the thumb. Normal metacarpophalangeal joints of the second through fifth fingers. Normal proximal interphalangeal joints of the second through fifth fingers. Degenerative changes of the DIP joints. Normal phalanges of the second through fifth fingers. The soft tissue structures are unremarkable. RAD/Hand Min 3 Views IMPRESSION: Degenerative changes. No acute fracture or dislocation. Electronically Signed: Eleuterio Prasad MD at 18:08 EDT Reading Location ID and State: [facility] / [place] Tel , Service support , CC: Dr. Moon Teixeira MD; Dr. Carol Mccarthy DO Audit Director: Signed Normal [facility] Hand Min 3 Views [facility] Imaging Services [address] [place] [address] Hand Min 3 Views MR#: [id number] Acct: [id number] Name: CADY BERUMEN Rep #: [id number] : 1945 F 78 From: Eleuterio Prasad MD PCP: Dr. Moon Teixeira MD Status: REG ER Study: Hand Min 3 Views Date of Exam: 06/22/24 Exam# [id number] Ordering Dr: Carol Mccarthy DO [id number] STUDY: X-RAY - LEFT HAND REASON FOR EXAM: Female, 78 years old. trauma TECHNIQUE: 3 view(s) of the hand. COMPARISON: None. FINDINGS: Normal radiocarpal articulation. Normal distal radioulnar joint. Normal visualized carpal bones. Normal carpal articulations Degenerative changes of the carpometacarpal articulation of the thumb. Normal second through fifth carpometacarpal joints. Normal metacarpi. Normal metacarpophalangeal joint of the thumb. Normal interphalangeal joint of the thumb. Normal proximal and distal phalanges of the thumb. Normal metacarpophalangeal joints of the second through fifth fingers. Normal proximal distal interphalangeal joints of the second through fifth fingers. Degenerative changes of the DIP joints Normal phalanges of the second through fifth fingers. The soft tissue structures are unremarkable. RAD/Hand Min 3 Views IMPRESSION: Degenerative changes. No acute fracture or dislocation Electronically Signed: Eleuterio Prasad MD at 18:11 EDT Reading Location ID and State: [facility] / [place] Tel , Service support , CC: Dr. Moon Teixeira MD; Dr. Carol Mccarthy DO Audit Director: Signed Normal [facility] Knee 4 or More Viewson 06-22 Knee 4 or More Views [facility] Imaging Services [address] [place] [address] Knee 4 or More Views MR#: [id number] Acct: [id number] Name: CADY BERUMEN Rep #: [id number] : 1945 F 78 From: Eleuterio Prasad MD PCP: Dr. Moon Teixeira MD Status: REG ER Study: Knee 4 or More Views Date of Exam: 06/22/24 Exam# [id number] Ordering Dr: Carol Mccarthy DO [id number] STUDY: X-RAY - RIGHT KNEE REASON FOR EXAM: Female, 78 years old. TRAUMA TECHNIQUE: 4 view(s) of the knee. COMPARISON: None. FINDINGS: Normal visualized distal femur. Normal visualized proximal tibia and fibula. Normal proximal tibiofibular articulation. Narrowed medial femorotibial compartment. Narrowed lateral femorotibial compartment. Normal patellofemoral articulation. The soft tissue structures are unremarkable. RAD/Knee 4 or More Views IMPRESSION: Degenerative changes. No acute fracture or other significant bony pathology Electronically Signed: Eleuterio Prasad MD at 17:46 EDT Reading Location ID and State: [facility] / [place] Tel , Service support , CC: Dr. Moon Teixeira MD; Dr. Carol Mccarthy DO Audit Director: Signed Normal [facility] Knee 4 or More Views [facility] Imaging Services [address] [place] [address] [id number] Knee 4 or More Views MR#: [id number] Acct: [id number] Name: CADY BERUMEN Rep #: [id number] : 1945 F 78 From: Eleuterio Prasad MD PCP: Dr. Moon Teixeira MD Status: REG ER Study: Knee 4 or More Views Date of Exam: 06/22/24 Exam# [id number] Ordering Dr: Carol Mccarthy DO [id number] STUDY: X-RAY - LEFT KNEE REASON FOR EXAM: Female, 78 years old. trauma, pain TECHNIQUE: 4 view(s) of the knee. COMPARISON: None. FINDINGS: Normal visualized distal femur. Normal visualized proximal tibia and fibula. Normal proximal tibiofibular articulation. Narrowed medial femorotibial compartment. Normal lateral femorotibial compartment. Normal patellofemoral articulation. Small suprapatellar spur The soft tissue structures are unremarkable. RAD/Knee 4 or More Views IMPRESSION: Degenerative changes. No acute fracture or dislocation Electronically Signed: Eleuterio Prasad MD at 18:09 EDT Reading Location ID and State: [facility] / [place] Tel , Service support , CC: Dr. Moon Teixeira MD; Dr. Carol Mccarthy DO Audit Director: Signed Normal [facility] Prothrombin Time w/INRon INR Coag (PPP) [Relative time] 2.9 {INR} Normal [facility] Comment on above: Performed By: #### L 300.3900, L100.0100 #### [facility] Laboratory [address] [place], [address] PT Coag (PPP) [Time] 30.4 s High 11.7-14.9 [facility] Comment on above: Performed By: #### L 300.3900, L100.0100 #### [facility] [address] [place], [address] Sinus/Facial Boneon 06-22-20 Sinus/Facial Bone [facility] Imaging Services [address] [place] [address] Sinus/Facial Bone MR#: [id number] Acct: [id number] Name: CADY BERUMEN Rep #: [id number] : 1945 F 78 From: Eleuterio Prasad MD PCP: Dr. Moon Teixeira MD Status: REG ER Study: Sinus/Facial Bone Date of Exam: 06/22/24 Exam# [id number] Ordering Dr: Carol Mccarthy DO [id number] STUDY: CT FACIAL BONES WITHOUT CONTRAST REASON FOR EXAM: Female, 78 years old. trauma, right mandibular pain RADIATION DOSAGE (If Supplied By Facility): CTDIvol = ( 29.38 ) mGy, DLP = ( 540.11 ) mGycm TECHNIQUE: The patient was scanned in a multi detector CT scanner. Sagittal and coronal images were reconstructed. Individualized dose optimization techniques were used for this CT. COMPARISON: None. FINDINGS: Normal soft tissue structures. Normal orbital carlson and orbital contents. Normal nasal bones and anterior nasal spine. Normal facial bones. There is no demonstrated fracture. Normal visualized paranasal sinuses. CT/Sinus/Facial Bone IMPRESSION: Normal unenhanced CT of the facial bones. Electronically Signed: Eleuterio Prasad MD at 17:45 EDT Reading Location ID and State: [facility] / [place] [facility] , Service support , CC: Dr. Moon Teixeira MD; Dr. Carol Mccarthy DO Audit Director: Signed Normal [facility] Spine Cervical without Contr ason 06-22-2024 Spine Cervical without Contras [facility] Imaging Services [address] [place] [address] [id number] Spine Cervical without Contras MR#: [id number] Acct: [id number] Name: CADY BERUMEN Rep #: [id number] : 1945 F 78 From: Eleuterio Prasad MD PCP: Dr. Moon Teixeira MD Status: REG ER Study: Spine Cervical without Contras Date of Exam: Exam# [id number] Ordering Dr: Carol Mccarthy DO [id number] STUDY: CT CERVICAL SPINE WITHOUT CONTRAST REASON FOR EXAM: Female, 78 years old. Injury/Pain RADIATION DOSAGE (If Supplied By Facility): CTDIvol = ( 16.04 ) mGy, DLP = ( 261.24 ) mGycm TECHNIQUE: High resolution transaxial imaging was performed without contrast material. Sagittal and coronal images were reconstructed. Individualized dose optimization techniques were used for this CT. COMPARISON: None FINDINGS: Normal craniovertebral junction. Normal anterior atlantoaxial articulation. Normal odontoid process. Normal cervical lordosis. Normal vertebral bodies and posterior osseous elements. C2-3: Normal endplates. Normal disc height and morphology. Normal central canal and intervertebral neuroforamina. C3-4: Normal endplates. Normal disc height and morphology. Normal central canal. Severe right neural foraminal stenosis secondary to bony hypertrophy C4-5: Normal endplates. Normal disc height and morphology. Normal central canal. Mild to moderate bilateral neural foraminal stenosis secondary to bony hypertrophy. C5-6: Mild anterior endplate spurring. Mildly narrowed disc space with normal disc morphology. Normal central canal. Mild bilateral neural foraminal encroachment secondary to bony hypertrophy C6-7: Mild anterior endplate spurring. Mildly narrowed disc space with normal disc morphology. Normal central canal. Moderate right neural foraminal encroachment secondary to bony hypertrophy C7-T1: Normal endplates. Normal disc height and morphology. Normal central canal and intervertebral neuroforamina. Normal visualized soft tissue structures. CT/Spine Cervical without Contras IMPRESSION: No evidence for acute fracture or subluxation Mild spondylosis most severe at C5-6 and C6-7 Electronically Signed: Eleuterio Prasad MD at 17:43 EDT , CC: Dr. Moon Teixeira MD; Dr. Carol Mccarthy DO Audit Director: Signed Normal [facility] 06-16-2024 [facility] Telephone (INTWS) -- CADY BERUMEN ([id number]) 1945 F Date Time Provider Department 06/16/24 MOON TEIXEIRA INTMWS During your visit today, we recorded the following information about you: Lauren Bui RN 06/16/2024 2:19 PM Signed Heide SHUKLA with [facility] calls to let provider know that her recommendation following the swallow study is for a gi referral (patient had a lot of reflux on study) and an order for Fiberoptic Endoscopic evaluation of Swallowing (FEES). LEANDER Plata Chitra, MD 06/16/2024 5:25 PM Signed Order placed please help with scheduling Regards, Vernell Valadez MD 06/17/2024 9:35 AM Signed Spoke with the patient and she prefers this order to be faxed to Nazanin Charlton MA 06/17/2024 9:53 AM Signed Faxed GI referral to Dr John office. Faxed swallow study to [facility]. Allergies As of Date: 06/16/2024 Noted Allergy Reaction FRAGRANCES 11/28/2014 3 - Cough 12 - Shortness of Breath BENZODIAZEPINES 09/08/2014 1 - Mental Status Change Comments: Pt sees colors and laughing CATS 11/28/2014 9 - Itching 12 - Shortness of Breath Comments: Eventual wheezing DUST MITES 11/28/2014 14 - Other: See Comments Comments: Positive allergy test GRASS POLLEN-DONNA, STANDARD 11/28/2014 9 - Itching Comments: Nasal congestion MOLD 11/28/2014 9 - Itching Comments: Nasal congestion SEASONAL ALLERGIES 11/08/2010 3 - Cough SULFA (SULFONAMIDE ANTIBIOTICS) 06/13/2005 9 - Itching TREES 11/28/2014 9 - Itching Comments: Nasal congestion VALIUM (DIAZEPAM) 09/23/2013 5 - Intolerance Comments: Laughing hysterically, ultra sensitive ZITHROMAX (AZITHROMYCIN) 06/08/2019 14 - Other: See Comments Comments: nausea Date Reviewed: 05/06/2024 Reviewed by: Mago Cerrato LPN - Fully Assessed Reason for Visit: Patient Update [1234] Primary Visit Diagnosis:Abnormal swallowing [R13.10] Order(s):CONSULT TO GASTROENTEROLOGY [9040] Order #: [id number]: 1 FUTURE Prescriptions as of 06/17/2024 - melatonin 1 mg subl Dissolve 1 tablet under the tongue once daily. - escitalopram oxalate (LEXAPRO) 5 mg tablet Take 1 tablet by mouth once daily. Take one pill at night for 7 days and then increase to 2 pills at night - baclofen 10 mg tablet Take 1 tablet by mouth three times a day as needed (muscle spasms). - rosuvastatin (CRESTOR) 5 mg tablet Take 1 tablet by mouth daily at bedtime. - Boswellia cecile extract (BOSWELLIA CECILE XT, BULK,) 70 % powd 1 Each two times a day. - prasterone, DHEA, (DHEA ORAL) Take by mouth. 0.15 mg - metoprolol tartrate, short acting, (LOPRESSOR) 25 mg tablet Take 25 mg by mouth twice daily. Takes as needed for rapid HR - timolol maleate (TIMOPTIC) 0.5 % ophthalmic solution Use 1 Drop in both eyes twice daily. - warfarin (COUMADIN) 5 mg tablet Take 1 tablet by mouth daily except 7.5mg on ( [facility]) - ALPHA LIPOIC ACID ORAL Take by mouth. - Cholecalciferol, Vitamin D3, 50 mcg (2,000 unit) cap Take 2 capsules by mouth once daily. - COQ10, UBIQUINOL, ORAL Take 30 mg by mouth. - latanoprost (XALATAN) 0.005 % ophthalmic solution Use 1 Drop in both eyes daily at bedtime. Meds Comments as of 05/10/2015: Does not take antivert, ibuprofen, aleve. Does take boswelia frankincense and white willow. Problem List As Of Date 06/16/2024 Noted Resolved ALLERGIC RHINITIS NOS [J30.9] 06/19/2004 WOUND (NOT COMPLICATED) - OPEN FINGER(S) [S61.*06/14/2005 10/08/2014 GANGLION JOINT (Mucous cyst left hand 3rd digit*08/07/2005 10/08/2014 GENERAL OSTEOARTHROSIS [M15.9] 11/23/2006 Abdominal pain, unspecified site [R10.9] 11/23/2006 10/08/2014 Lumbago [M54.50] 11/16/2008 10/08/2014 Rectal bleeding [K62.5] 09/06/2010 10/08/2014 Cellulitis [L03.90] 06/24/2013 10/08/2014 Ulcer of ankle (HCC) [L97.309] 06/24/2013 10/08/2014 Venous stasis ulcer of right ankle limited to b*07/18/2013 06/09/2023 Vitamin D deficiency [E55.9] 09/20/2013 Frequency of urination [R35.0] 03/01/2014 10/08/2014 Urgency of urination [R39.15] 03/01/2014 10/08/2014 Nocturia [R35.1] 03/01/2014 Hesitancy of micturition [R39.11] 03/01/2014 Varicose veins of right lower extremity [I83.91]08/25/2014 BPPV (benign paroxysmal positional vertigo) [H8*10/30/2014 Vertigo of central origin [H81.4] 12/11/2014 Peripheral vertigo, unspecified [H81.399] 12/11/2014 Sprain of sacroiliac joint [S33.6XXA] 11/06/2015 Irritable bowel syndrome with both constipation*11/06/2015 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 Normal [facility] Modified Barium Swallow Stud [facility] 06-14-2024 Modified Barium Swallow Study [facility] Speech Pathology [address] [place] [address] Modified Barium Swallow Study MR#: [id number] Acct: [id number] Name: CADY BERUMEN Rep #: [id number] : 1945 78 From: Heide Monroy Modified Barium Swallow Patient Information Study Date: 06/14/24 Study Time: 13:00 Direct Billable Minutes: 120 Total Minutes procedure reportin Diagnosis: Dysphagia - R13.10 Referring Physician: Moon Teixeira Reason for Referral: Objectively assess swallow function, assess risk for aspiration, and determine recommendations for least restrictive diet textures and compensatory strategies to improve safety of swallow.??? Medical History: Cady Berumen is a 78-year-old female here for a Modified Barium Swallow Study, referred by Moon Teixeira due to concerns about coughing. The patient reports frequent episodes of coughing and choking during oral intake, which can occur with food, liquids, and even her own saliva. Most recently, she choked on eggs and noted that she began to perform the Heimlich maneuver on herself. Her past medical history includes shortness of breath, obstructive sleep apnea (PRAMOD), long-term use of 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, paroxysmal atrial fibrillation, asthma, near syncope, atrial tachycardia (10/14/18), varicose veins in her leg, vestibular neuritis, osteopenia, osteoarthritis, chronic venous insufficiency, glaucoma, and essential hypertension. Mental Status: WNL Respiratory Status: Oxygenating on Room Air Penetration-Aspiration Scale Penetration-Aspiration Scale: OBJECTIVE ASSESSMENT OF SWALLOW FUNCTION (QUANTITATIVE ??? PER TRIAL): PENETRATION / ASPIRATION SCALE (SCHMIDT): 1 = does not enter airway 2 = enters airway/above vocal folds/ejected 3 = enters airway/above vocal folds/not ejected 4 = enters airway/contacts vocal folds/ejected 5 = enters airway/contacts vocal folds/not ejected 6 = enters airway/below vocal folds/ejected 7 = enters airway/below vocal folds/not ejected despite effort 8 = enters airway/below vocal folds/no effort VIDEOFLOROSCOPIC SCALE SCORE (SCHMIDT): Grade I = aspiration of material that has penetrated into the laryngeal vestibule, intact cough reflex Grade II = aspiration < 10 % of the bolus, intact cough reflex Grade III = aspiration of < 10 % of the bolus, reduced cough reflex or aspiration of > 10 % of the bolus, intact cough reflex Grade IV = aspiration of > 10 % of the bolus, reduced cough reflex Penetration-Aspiration Scale Score Thin Liquid via teaspoon: Result: 1= does not enter airway Thin Liquid via teaspoon Trial 2: Result: 1= does not enter airway Thin Liquid via small single sip: cup: Result: 1= does not enter airway Thin Liquid via sequential sips: cup: Result: 1= does not enter airway [place] Thick Liquid via small single sip: cup: Result: 1= does not enter airway Honey Thick Liquid via small single sip: cup: Result: 1= does not enter airway Pudding: Result: 1= does not enter airway Cookie: Result: 1= does not enter airway Oral Phase Labial Seal: No Labial Escape Tongue Control During Bolus Hold: Posterior escape of less than half of bolus Bolus Preparation/Mastication: Slow prolonged chewing/mashing with complete recollection Bolus Transport/Lingual Motion: Brisk tongue motion Oral Residue: Residue collection on oral structures Pharyngeal Phase Initiation of Pharyngeal Swallow: Bolus head in valleculae Soft Palate Elevation: No bolus between soft palate and pharyngeal wall Laryngeal Elevation: Comp. Superior move thyroid cart w/comp. apprx arytenoid cart-epig pet Anterior Hyoid Excursion: Complete anterior movement Epiglottic Movement: Complete inversion Laryngeal Vestibule Closure at Height of Swallow: Complete; no air/contrast in laryngeal vestibule Pharyngeal Stripping Wave: Present - diminished Pharyngoesophageal Segment Opening: Parital distension and partial duration; parital obstruction of flow Tongue Base Retraction: Wide column of contrast between tongue base post. pharyngeal wall Pharyngeal Residue: Collection of residue within or on pharyngeal structures Esophageal Phase Esophageal Clearance: Esophageal retention w/ retrograde flow below pharyngoesophageal seg. Diagnosis/Impression Diagnosis: oropharyngeal dysphagia, esophageal dysphagia Impression: Oral phase primarily marked by... * Presence of oral residue after swallowing thin liquids, spilling into the pharynx. Significant risk for postprandial penetration/aspiration due to lack of awareness, preventing double swallow or airway protection. * Adequate mastication of cookie noted, using piecemeal deglutition. Majority of cookie remained in the vallecula and pyriforms after initial swallow. Patient independently uses a double swallow, w hich partially clears pharyngeal residues. Pharyngeal phase primarily marked by... * Notable cricopharyngeal hypertrophy at C4/C5. B (more content not included)... Normal [facility] Brain/Head without Contrasto n 05-17-2024 Brain/Head without Contrast [facility] Imaging Services [address] [place] [address] Brain/Head without Contrast MR#: [id number] Acct: [id number] Name: CADY BERUMEN Rep #: [id number] : 1945 F 78 From: Zaid nieves MD PCP: Dr. Moon Teixeira MD Status: REG ER Study: Brain/Head without Contrast Date of Exam: 04/25 12/15 Exam# [id number] Ordering Dr: Ousmane Matias DO [id number] STUDY: CT BRAIN WITHOUT CONTRAST REASON FOR EXAM: Female, 78 years old. Head injury due to a fall. RADIATION DOSAGE (If Supplied By Facility): CTDIvol = ( 44.99 ) mGy, DLP = ( 829.85 ) mGycm TECHNIQUE: Transaxial CT imaging of the brain was performed without administration of intravenous contrast material. Individualized dose optimization techniques were used for this CT. COMPARISON: No relevant priors. FINDINGS: Normal soft tissue structures. Normal calvarium. There is mild cerebral atrophy with widening of the extra-axial spaces and ventricular dilatation. There are areas of decreased attenuation within the white matter tracts of the supratentorial brain, consistent with microvascular disease changes. Normal basal ganglia and thalami. Normal brainstem. Normal cerebellum. There is no intracranial hemorrhage. There are no findings of an acute ischemic infarction. Atherosclerotic plaque formation of the cavernous portions of the internal carotid arteries bilaterally. Normal visualized paranasal sinuses. CT/Brain/Head without Contrast IMPRESSION: Chronic involutional changes of the brain. Electronically Signed: Zaid Jason MD at 12:32 EDT , CC: Dr. Moon Teixeira MD; Dr. Ousmane Matias, Audit Director: Signed Normal [facility] 05-17-2024 CNPN Telephone (INTMWS) -- CADY BERUMEN ([id number]) 1945 F Date Time Provider Department 05/17/24 MOON TEIXEIRA INTMWS During your visit today, we recorded the following information about you: Esha Santiago LPN 05/17/2024 9:26 AM Signed Alexa with [facility] radiology called to let you know pt was scheduled today for an esophagram. This was put on hold. The radiologist would like pt to have a cookie swallow done first to see if pt is silently aspirating and if so they can caught this. Pt aware this will need to be done. Please send orders over to the hospital to have this scheduled and pt can also reschedule the esophagram. Please advise pt when orders have been faxed to [facility] so she can call to schedule. TOYA Ken Amanda, LEANDER 05/17/2024 9:59 AM Signed Pt called in and reports she fell last night going to the bathroom and hit her head. She said she somersaulted and has a bump on her head, and she is on a blood thinner. Pt is going to be going to [facility] ER to be checked out. Letting providers office know so they can look out for ER report. Moon Teixeira MD 05/17/2024 1:09 PM Addendum Ok noted. I put an order for swallow eval, please see if that would is the order the radiologist is looking for? Thank you Regards, Mago Sanchez MD, LPN 05/19/2024 11:49 AM Signed Called and spoke to Radiology Traci, Faxed order and facesheet Mago Cerrato LPN May 19, 2024 11:49 AM Allergies As of Date: 05/17/2024 Noted Allergy Reaction FRAGRANCES 11/28/2014 3 - Cough 12 - Shortness of Breath BENZODIAZEPINES 09/08/2014 1 - Mental Status Change Comments: Pt sees colors and laughing CATS 11/28/2014 9 - Itching 12 - Shortness of Breath Comments: Eventual wheezing DUST MITES 11/28/2014 14 - Other: See Comments Comments: Positive allergy test GRASS POLLEN-DONNA, STANDARD 11/28/2014 9 - Itching Comments: Nasal congestion MOLD 11/28/2014 9 - Itching Comments: Nasal congestion SEASONAL ALLERGIES 11/08/2010 3 - Cough SULFA (SULFONAMIDE ANTIBIOTICS) 06/13/2005 9 - Itching TREES 11/28/2014 9 - Itching Comments: Nasal congestion VALIUM (DIAZEPAM) 09/23/2013 5 - Intolerance Comments: Laughing hysterically, ultra sensitive ZITHROMAX (AZITHROMYCIN) 06/08/2019 14 - Other: See Comments Comments: nausea Date Reviewed: 05/06/2024 Reviewed by: Mago Cerrato LPN - Fully Assessed Reason for Visit: ordes for a cookie swallow [Other] Primary Visit Diagnosis:Cough, unspecified type [R05.9] Order(s):SWALLOW EVALUATION [76220BRF] Order #: [id number] Prescriptions as of 05/19/2024 - melatonin 1 mg subl Dissolve 1 tablet under the tongue once daily. - escitalopram oxalate (LEXAPRO) 5 mg tablet Take 1 tablet by mouth once daily. Take one pill at night for 7 days and then increase to 2 pills at night - baclofen 10 mg tablet Take 1 tablet by mouth three times a day as needed (muscle spasms). - rosuvastatin (CRESTOR) 5 mg tablet Take 1 tablet by mouth daily at bedtime. - Boswellia cecile extract (BOSWELLIA CECILE XT, BULK,) 70 % powd 1 Each two times a day. - prasterone, DHEA, (DHEA ORAL) Take by mouth. 0.15 mg - metoprolol tartrate, short acting, (LOPRESSOR) 25 mg tablet Take 25 mg by mouth twice daily. Takes as needed for rapid HR - timolol maleate (TIMOPTIC) 0.5 % ophthalmic solution Use 1 Drop in both eyes twice daily. - warfarin (COUMADIN) 5 mg tablet Take 1 tablet by mouth daily except 7.5mg on ( [facility]) - ALPHA LIPOIC ACID ORAL Take by mouth. - Cholecalciferol, Vitamin D3, 50 mcg (2,000 unit) cap Take 2 capsules by mouth once daily. - COQ10, UBIQUINOL, ORAL Take 30 mg by mouth. - latanoprost (XALATAN) 0.005 % ophthalmic solution Use 1 Drop in both eyes daily at bedtime. Meds Comments as of 05/10/2015: Does not take antivert, ibuprofen, aleve. Does take boswelia frankincense and white willow. Problem List As Of Date 05/17/2024 Noted Resolved ALLERGIC RHINITIS NOS [J30.9] 06/19/2004 WOUND (NOT COMPLICATED) - OPEN FINGER(S) [S61.*06/14/2005 10/08/2014 GANGLION JOINT (Mucous cyst left hand 3rd digit*08/07/2005 10/08/2014 GENERAL OSTEOARTHROSIS [M15.9] 11/23/2006 Abdominal pain, unspecified site [R10.9] 11/23/2006 10/08/2014 Lumbago [M54.50] 11/16/2008 10/08/2014 Rectal bleeding [K62.5] 09/06/2010 10/08/2014 Cellulitis [L03.90] 06/24/2013 10/08/2014 Ulcer of ankle (HCC) [L97.309] 06/24/2013 10/08/2014 Venous stasis ulcer of right ankle limited to b*07/18/2013 06/09/2023 Vitamin D deficiency [E55.9] 09/20/2013 Frequency of urination [R35.0] 03/01/2014 10/08/2014 Urgency of urination [R39.15] 03/01/2014 10/08/2014 Nocturia [R35.1] 03/01/2014 Hesitancy of micturition [R39.11] 03/01/2014 Varicose veins of right lower extremity [I83.91]08/25/2014 BPPV (benign paroxysmal positional vertigo) [H8*03/ (more content not included)... Normal [facility] Emergency Department Summary on 05-17-2024 Emergency Department Summary [facility] Medical Records Department [address] [place] [address] Emergency Department Summary 05/17/24 MR#: [id number] Acct: [id number] Name: CADY BERUMEN Rep #: [id number] : 1945 78 From: Ousmane Matias DO PCP: Dr. Moon Teixeira MD Status:DEP ER Location: ED HPI History of Present Illness Chief Complaint: Head Injury Onset/Context/Timing Onset: Today Mechanism/Context: Fall Quality of Pain: Dull Location: Left frontal Worsened by: Palpation, pressure Relieved by: Nothing Associated Symptoms Associated Symptoms: Negative for Parasthesias, Weakness, Loss of function, Inability to ambulate, Loss of consciousness or Amnesia Narrative Narrative: Patient presents with head injury that occurred earlier this morning. Patient states she fell out of bed. Patient states she hit her head on the bedside table. Patient denies any loss of consciousness. Patient denies any paresthesias or weakness. Patient denies any visual changes. Patient denies any nausea or vomiting. Patient is on Coumadin. 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 Patient states that she drove herself to the hospital earlier today for an upper GI test. Patient states she drove herself home after this. [facility] Medical History Shortness of breath PRAMOD (obstructive sleep apnea) long term (current) use of 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 Paroxysmal atrial fibrillation Change in bowel habit Asthma Near syncope Atrial tachycardia (10/14/18) Varicose vein of leg Vestibular neuritis Osteopenia Osteoarthritis Chronic venous insufficiency Glaucoma Essential (primary) hypertension Home Medications ???Medication ???Instructions ???Recorded ???Last Taken ???Type cholecalciferol (vitamin D3) 25 1,000 unit PO BID vitamin 03/10/16 10/11/22 History mcg (1,000 unit) tablet latanoprost 0.005 % eye drops 1 drp EACH EYE [facility] eye health 03/10/16 10/11/22 History coenzyme Q10 50 mg chewable tablet 30 mg PO DAILY 06/07/19 10/11/22 History timolol 0.25 % eye drops 1 drp ophthalmic (eye) BID 12/02/21 10/11/22 History alpha lipoic acid 50 mg capsule 50 mg PO DAILY supplement 10/12/22 10/11/22 History warfarin 5 mg tablet 10 mg PO JONAS afib 10/12/22 10/05/22 History metoprolol tartrate 25 mg tablet 12.5 mg PO BID PRN afib 11/11/23 Unknown History warfarin 5 mg tablet 7.5 mg PO DAILY #135 tabs 12/28/23 Unknown Rx escitalopram oxalate 5 mg tablet 10 mg PO QPM 05/17/24 Unknown History melatonin 1 mg sublingual tablet 1 mg sublingual DAILY 05/17/24 Unknown History Allergy/AdvReac Type Severity Reaction Status Date / Time cat dander Allergy Mild congestion Verified 05/17/24 10:47 grass pollen Allergy Mild Cough, Verified 05/17/24 10:47 rhinitis house dust Allergy Mild Cough, Verified 05/17/24 10:47 rhinitis mold Allergy Mild Cough, Verified 05/17/24 10:47 rhinitis tree and shrub pollen Allergy Mild Cough, Verified 05/17/24 10:47 rhinitis Sulfa (Sulfonamide Allergy Itching Verified 05/17/24 10:47 Antibiotics) losartan AdvReac Severe dizziness, Verified 05/17/24 10:47 severe amlodipine AdvReac Intermediate dizziness Verified 05/17/24 10:47 lisinopril AdvReac Intermediate Nagging Verified 05/17/24 10:47 dry cough Benzodiazepines AdvReac Other Verified 05/17/24 10:47 diazepam (From Valium) AdvReac Other Verified 05/17/24 10:47 Family History Father Myocardial infarction from [place] age 61 Heart disease Diabetes Sister Breast cancer Other senior care (current) use of 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 Surgical History history vein surgery history TMJ surgery History of cataract surgery S/P excision of Ramos's neuroma History of carpal tunnel release History of tonsillectomy Social History household members: spouse housing: house Smoking Status: Never smoker alcohol intake: current alcohol intake frequency: a few times a month substance use type: does not use what type of physical activity do you participate in: none do you feel safe at home: Yes ROS ROS ED Constitutional Constitutional ED: Denies chills or fever(s) Eyes Eyes: Denies blurry vision or change in vision ENT ENT ED: Denies rhinorrhea or sore throat Cardiovascular Cardiovascular: Denies chest pain or palpitations Respiratory/Chest Respiratory/Chest: Reports cough; Denies dyspnea Gastrointestinal Gastrointestinal: Denies nausea or vomiting Genitourinary Genitourinary ED: Denies dysuria or hematuria Musculoskeletal Musculoskeletal: Denies back pain or neck pain Integumentary Denies absc (more content not included)... Normal [facility] Prothrombin Time w/INRon INR Coag (PPP) [Relative time] 2.8 {INR} Normal [facility] Comment on above: Performed By: #### L 300.3900 ####[facility] [id number] [place], [place], [id number] PT Coag (PPP) [Time] 29.3 s High 11.7-14.9 [facility] Comment on above: Performed By: #### L 300.3900 ####[facility] [address] [place], [place], [id number] CNOVon 05-06-2024 CNOV Office Visit (INTMWS ) -- CADY BERUMEN ([id number]) 1945 F Date Time Provider Department 05/06/24 1:40 PM MOON TEIXEIRA INTMWS During your visit today, we recorded the following information about you: Pulse Blood pressure Weight 63/minute 110/76 72.4 kg Moon Teixeira MD 05/06/2024 3:04 PM Signed Reason for Visit Patient presents with: Recheck: 4 week follow up Cady Kingcher is a 78 year old female who presents here today for Above Complaints.. Health Maintenance Spirometry Anxiety Screening BP Controlled (<130/80) Advance Directive Discussion HPI This is a very pleasant 78-year-old with a past medical history of paroxysmal A-fib, essential hypertension, asthma, irritable bowel, allergic rhinitis, severe episode of recurrent major depressive disorder. She is here for follow up. Moved to a new place. It is the [facility]. It is a [place] community of older people who care for each other, they are kind, and check on each other. She now knows around 16 people when she just knew 4 dogs before, and she is loving the amount she can garden there. She has been taking the lexapro for the past few weeks currently on a taper because she is doing very well right now and does not want to be in the e d. Gone for therapy and now she is doing much better, The change in environment helped her a lot too. Lipids are elevated mildly, she is exercising, and working to lose the few pounds that she gained now that she does not have to be a caregiver which consumed her life No problem-specific Assessment AND Plan notes found for this encounter. PAST MEDICAL HISTORY Diagnosis Date A-fib (HCC) February 2021 Asthma Atrial tachycardia (HCC) 10/14/2018 BPPV (benign paroxysmal positional vertigo) 10/30/2014 Degenerative disc disease 08/10/2014 Mild Degenerative disc disease C6-C7 Mild Anterolisthesis C7-T-1`- See scanned document Essential hypertension, benign Fibromyalgia Glaucoma, open angle Hypothyroidism 10/14/2018 Varicose veins 08/25/2014 Varicose veins of other sites Venous stasis ulcer of ankle 07/18/2013 Vestibular neuronitis Vitamin D deficiency 09/20/2013 PAST SURGICAL HISTORY Procedure Laterality Date ARTHRP TEMPOROMANDIBULAR JOINT W/WO AUTOGRAFT 1987 CATARACT SURGERY, COMPLEX 2005 Rt AND Lt COLONOSCOPY FLX DX W/COLLJ SPEC WHEN PFRMD 11/08/2010 Colonoscopy COLONOSCOPY FLX DX W/COLLJ SPEC WHEN PFRMD 08/23/2019 [facility]-RLonnie Cebul repeat is not recommended NEUROPLASTY AND/TRANSPOS MEDIAN NRV CARPAL TUNNE 1990 Carpal tunnel decomp-bilateral PAST SURGICAL HISTORY OF 08-21-05 EXCISION CYST LEFT MIDDLE FINGER PAST SURGICAL HISTORY OF right foot surgery- mortons neuroma PAST SURGICAL HISTORY OF 2013 left foot vein ablation TONSILLECTOMY PRIMARY/SECONDARY AGE 12/> 89 FAMILY HISTORY Problem Relation Age of Onset Heart Father Allergies Sister Breast Cancer Sister age of 50's with diagnosis Prostate Cancer Brother Social History Tobacco Use Smoking status: Never Smokeless tobacco: Never Vaping Use Vaping status: Never Used Substance Use Topics Alcohol use: Not Currently Drug use: No Past medical history, appointments, medications, allergies reviewed. Pertinent Lab/Diagnostic Studies are reviewed and discussed today Current Outpatient Medications: melatonin 1 mg subl escitalopram oxalate (LEXAPRO) 5 mg tablet baclofen 10 mg tablet rosuvastatin (CRESTOR) 5 mg tablet Boswellia cecile extract (BOSWELLIA CECILE XT, BULK,) 70 % powd prasterone, DHEA, (DHEA ORAL) metoprolol tartrate, short acting, (LOPRESSOR) 25 mg tablet timolol maleate (TIMOPTIC) 0.5 % ophthalmic solution warfarin (COUMADIN) 5 mg tablet ALPHA LIPOIC ACID ORAL Cholecalciferol, Vitamin D3, 50 mcg (2,000 unit) cap COQ10, UBIQUINOL, ORAL latanoprost (XALATAN) 0.005 % ophthalmic solution Review of Systems CONSTITUTIONAL: No fevers, chills night sweats, unintended weight loss CARDIOVASCULAR: No chest pain, dyspnea, palpitations, orthopnea, PND, ankle edema. PULM: No dyspnea, unexplained cough. GI: No dysphagia/odynophagia, problematic reflux, constipation, diarrhea, changes in stool habits, hematochezia, melena. : No new urinary complaints, including dysuria, gross hematuria or pyuria. NEURO: No new balance problems, peripheral weakness/paresthesias or numbness of concern. Physical Exam BP 110/76 (BP Site: Left Arm) Pulse 63 Wt 72.4 kg (159 lb 9.8 oz) SpO2 98% BMI 26.56 kg/m? General appearance: Well appearing, alert, in no acute distress, well nourished. Skin: Skin color, texture, turgor normal, no suspicious rashes or lesions Head: Normocephalic, no masses, lesions, tenderness or abnormalities Eyes: Anicteric sclera. Pupils are equally round and reactive to light. Extraocular movements are intact. Pain to palpation of the 10 to 12 rib (more content not included)... Normal [facility] Fer[facility] [Mass/Vol] 96.9 ng/mL Normal 14.7-205.1 [facility] Comment on above: Order Comment: Speci men Type: BLOOD SPECIMENOrdering Facility: [facility] Address: [address] [place] [address] Performed By: #### 2 132-9, 2276-4, 3016-3, 50040-2 ####[facility] LABCLIA [id number] [place] [id number] [place] Iron and Iron binding capaci ty panelon 05-03-2024 Iron [Mass/Vol] 55 ug/dL Normal 41-186 [facility] Comment on above: Order Comment: Speci men Type: BLOOD SPECIMENOrdering Facility: [facility] Address: [address] [place] [address] Performed By: #### 2 132-9, 2276-4, 3016-3, 19530-0 ####[facility] LABCLIA [id number] [place] [address] [place] Iron binding capacity [Mass/Vol] 283 ug/dL Normal 232-386 [facility] Comment on above: Order Comment: Speci men Type: BLOOD SPECIMENOrdering Facility: [facility] Address: [address] [place] [address] Performed By: #### 2 132-9, 2276-4, 3016-3, 65479-9 ####[facility] LABCLIA [id number] [place] [id number] [place] Iron/TIBC [Molar ratio] 19.4 % Normal 15.0-57.0 [facility] Comment on above: Order Comment: Speci men Type: BLOOD SPECIMENOrdering Facility: [facility] Address: [address] [place] [address] Performed By: #### 2 132-9, 2276-4, 3016-3, 34615-4 ####[facility] LABCLIA [id number] [place] [id number] [place] TSH SerPl-aCncon 05-03-2024 TSH Qn 2.250 m[IU]/L Normal 0.270-4.20 0 [facility] Comment on above: Order Comment: Speci men Type: BLOOD SPECIMENOrdering Facility: [facility] Address: [address] [place] [address] Performed By: #### 2 132-9, 2276-4, 3016-3, 60100-4 ####[facility] LABCLIA [id number] [place] Vit B12 SerPl-mCncon 024 Cobalamin (Vitamin B12) [Mass/Vol] 1167 pg/mL Normal 232-1245 [facility] Comment on above: Order Comment: Speci men Type: BLOOD SPECIMENOrdering Facility: [facility] Address: [address] [place] [address] Performed By: #### 2 132-9, 2276-4, 3016-3, 51515-8 ####[facility] LABCLIA [id number] [address] [place] CNPAlise 04-29-2024 CNPN Telephone (INTElizabethWS) -- CADY BERUMEN ([id number]) 1945 F Date Time Provider Department 04/29/24 MOON TEIXEIRA During your visit today, we recorded the following information about you: Debra Cho LPN 04/29/2024 11:50 AM Signed Patient calling, states that she read the side effects of the Lexapro and does not want to take it anymore. Asking how she should wean off of this medication. Please advise. Moon Teixeira MD 04/29/2024 1:44 PM Signed If there is anything I can do to help answer questions or alleviate her fears I am willing to do that as the lexpro is the most studied medication and should be good for her. It is a relatively safe medication. If you read the side effects, you will find multiple dozens of them but they wont necessarily happen to her. If she has not experienced any then likely she wont. If she still wants to quit then let her take 1 pill every other day for a week and then stop the medication,. Regards, Nazanin Snyder MD, MA 04/29/2024 2:42 PM Signed Tried calling patient, no answer/Jerad PEDROZA Linda M, LPN 04/29/2024 3:01 PM Signed Pt returns call , gave information provided. Pt voices understanding. Allergies As of Date: 04/29/2024 Noted Allergy Reaction FRAGRANCES 11/28/2014 3 - Cough 12 - Shortness of Breath BENZODIAZEPINES 09/08/2014 1 - Mental Status Change Comments: Pt sees colors and laughing CATS 11/28/2014 9 - Itching 12 - Shortness of Breath Comments: Eventual wheezing DUST MITES 11/28/2014 14 - Other: See Comments Comments: Positive allergy test GRASS POLLEN-DONNA, STANDARD 11/28/2014 9 - Itching Comments: Nasal congestion MOLD 11/28/2014 9 - Itching Comments: Nasal congestion SEASONAL ALLERGIES 11/08/2010 3 - Cough SULFA (SULFONAMIDE ANTIBIOTICS) 06/13/2005 9 - Itching TREES 11/28/2014 9 - Itching Comments: Nasal congestion VALIUM (DIAZEPAM) 09/23/2013 5 - Intolerance Comments: Laughing hysterically, ultra sensitive ZITHROMAX (AZITHROMYCIN) 06/08/2019 14 - Other: See Comments Comments: nausea Date Reviewed: 04/22/2024 Reviewed by: Mago Cerrato LPN - Fully Assessed Reason for Visit: Medication Question [0778] Prescriptions as of 04/29/2024 - melatonin 1 mg subl Dissolve 1 tablet under the tongue once daily. - escitalopram oxalate (LEXAPRO) 5 mg tablet Take 1 tablet by mouth once daily. Take one pill at night for 7 days and then increase to 2 pills at night - baclofen 10 mg tablet Take 1 tablet by mouth three times a day as needed (muscle spasms). - rosuvastatin (CRESTOR) 5 mg tablet Take 1 tablet by mouth daily at bedtime. - Boswellia cecile extract (BOSWELLIA CECILE XT, BULK,) 70 % powd 1 Each two times a day. - prasterone, DHEA, (DHEA ORAL) Take by mouth. 0.15 mg - metoprolol tartrate, short acting, (LOPRESSOR) 25 mg tablet Take 25 mg by mouth twice daily. Takes as needed for rapid HR - timolol maleate (TIMOPTIC) 0.5 % ophthalmic solution Use 1 Drop in both eyes twice daily. - warfarin (COUMADIN) 5 mg tablet Take 1 tablet by mouth daily except 7.5mg on ( [facility]) - ALPHA LIPOIC ACID ORAL Take by mouth. - Cholecalciferol, Vitamin D3, 50 mcg (2,000 unit) cap Take 2 capsules by mouth once daily. - COQ10, UBIQUINOL, ORAL Take 30 mg by mouth. - latanoprost (XALATAN) 0.005 % ophthalmic solution Use 1 Drop in both eyes daily at bedtime. Meds Comments as of 05/10/2015: Does not take antivert, ibuprofen, aleve. Does take boswelia frankincense and white willow. Problem List As Of Date 04/29/2024 Noted Resolved ALLERGIC RHINITIS NOS [J30.9] 06/19/2004 WOUND (NOT COMPLICATED) - OPEN FINGER(S) [S61.*06/14/2005 10/08/2014 GANGLION JOINT (Mucous cyst left hand 3rd digit*08/07/2005 10/08/2014 GENERAL OSTEOARTHROSIS [M15.9] 11/23/2006 Abdominal pain, unspecified site [R10.9] 11/23/2006 10/08/2014 Lumbago [M54.50] 11/16/2008 10/08/2014 Rectal bleeding [K62.5] 09/06/2010 10/08/2014 Cellulitis [L03.90] 06/24/2013 10/08/2014 Ulcer of ankle (HCC) [L97.309] 06/24/2013 10/08/2014 Venous stasis ulcer of right ankle limited to b*07/18/2013 06/09/2023 Vitamin D deficiency [E55.9] 09/20/2013 Frequency of urination [R35.0] 03/01/2014 10/08/2014 Urgency of urination [R39.15] 03/01/2014 10/08/2014 Nocturia [R35.1] 03/01/2014 Hesitancy of micturition [R39.11] 03/01/2014 Varicose veins of right lower extremity [I83.91]08/25/2014 BPPV (benign paroxysmal positional vertigo) [H8*10/30/2014 Vertigo of central origin [H81.4] 12/11/2014 Peripheral vertigo, unspecified [H81.399] 12/11/2014 Sprain of sacroiliac joint [S33.6XXA] 11/06/2015 Irritable bowel syndrome with both constipation*11/06/2015 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] 08/14/2017 Varicose veins of left lower extremity with dixon*03/03/2018 Asthma [J45.909] 04/20/2018 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 (more content not included)... [facility] CADY [facility] ([id number]) 1945 F Date Time Provider Department 04/26/24 MOON TEIXEIRA INTMWS During your visit today, we recorded the following information about you: Patricia Perkins LPN 04/26/2024 2:47 PM Signed Pt calling for xray results from . TOYA Agudelo Chitra, MD 04/27/2024 6:31 AM Signed No rib fracture on the left side Moon Saenz MD, Beth, LPN 04/27/2024 8:43 AM Signed Patient returned call and went over results from Dr Teixeira with understanding. Allergies As of Date: 04/26/2024 Noted Allergy Reaction FRAGRANCES 11/28/2014 3 - Cough 12 - Shortness of Breath BENZODIAZEPINES 09/08/2014 1 - Mental Status Change Comments: Pt sees colors and laughing CATS 11/28/2014 9 - Itching 12 - Shortness of Breath Comments: Eventual wheezing DUST MITES 11/28/2014 14 - Other: See Comments Comments: Positive allergy test GRASS POLLEN-DONNA, STANDARD 11/28/2014 9 - Itching Comments: Nasal congestion MOLD 11/28/2014 9 - Itching Comments: Nasal congestion SEASONAL ALLERGIES 11/08/2010 3 - Cough SULFA (SULFONAMIDE ANTIBIOTICS) 06/13/2005 9 - Itching TREES 11/28/2014 9 - Itching Comments: Nasal congestion VALIUM (DIAZEPAM) 09/23/2013 5 - Intolerance Comments: Laughing hysterically, ultra sensitive ZITHROMAX (AZITHROMYCIN) 06/08/2019 14 - Other: See Comments Comments: nausea Date Reviewed: 04/22/2024 Reviewed by: Mago Cerrato LPN - Fully Assessed Reason for Visit: Xray Results [439] Prescriptions as of 04/27/2024 - melatonin 1 mg subl Dissolve 1 tablet under the tongue once daily. - escitalopram oxalate (LEXAPRO) 5 mg tablet Take 1 tablet by mouth once daily. Take one pill at night for 7 days and then increase to 2 pills at night - baclofen 10 mg tablet Take 1 tablet by mouth three times a day as needed (muscle spasms). - rosuvastatin (CRESTOR) 5 mg tablet Take 1 tablet by mouth daily at bedtime. - Boswellia cecile extract (BOSWELLIA CECILE XT, BULK,) 70 % powd 1 Each two times a day. - prasterone, DHEA, (DHEA ORAL) Take by mouth. 0.15 mg - metoprolol tartrate, short acting, (LOPRESSOR) 25 mg tablet Take 25 mg by mouth twice daily. Takes as needed for rapid HR - timolol maleate (TIMOPTIC) 0.5 % ophthalmic solution Use 1 Drop in both eyes twice daily. - warfarin (COUMADIN) 5 mg tablet Take 1 tablet by mouth daily except 7.5mg on ( [facility]) - ALPHA LIPOIC ACID ORAL Take by mouth. - Cholecalciferol, Vitamin D3, 50 mcg (2,000 unit) cap Take 2 capsules by mouth once daily. - COQ10, UBIQUINOL, ORAL Take 30 mg by mouth. - latanoprost (XALATAN) 0.005 % ophthalmic solution Use 1 Drop in both eyes daily at bedtime. Meds Comments as of 05/10/2015: Does not take antivert, ibuprofen, aleve. Does take boswelia frankincense and white willow. Problem List As Of Date 04/26/2024 Noted Resolved ALLERGIC RHINITIS NOS [J30.9] 06/19/2004 WOUND (NOT COMPLICATED) - OPEN FINGER(S) [S61.*06/14/2005 10/08/2014 GANGLION JOINT (Mucous cyst left hand 3rd digit*08/07/2005 10/08/2014 GENERAL OSTEOARTHROSIS [M15.9] 11/23/2006 Abdominal pain, unspecified site [R10.9] 11/23/2006 10/08/2014 Lumbago [M54.50] 11/16/2008 10/08/2014 Rectal bleeding [K62.5] 09/06/2010 10/08/2014 Cellulitis [L03.90] 06/24/2013 10/08/2014 Ulcer of ankle (HCC) [L97.309] 06/24/2013 10/08/2014 Venous stasis ulcer of right ankle limited to b*07/18/2013 06/09/2023 Vitamin D deficiency [E55.9] 09/20/2013 Frequency of urination [R35.0] 03/01/2014 10/08/2014 Urgency of urination [R39.15] 03/01/2014 10/08/2014 Nocturia [R35.1] 03/01/2014 Hesitancy of micturition [R39.11] 03/01/2014 Varicose veins of right lower extremity [I83.91]08/25/2014 BPPV (benign paroxysmal positional vertigo) [H8*10/30/2014 Vertigo of central origin [H81.4] 12/11/2014 Peripheral vertigo, unspecified [H81.399] 12/11/2014 Sprain of sacroiliac joint [S33.6XXA] 11/06/2015 Irritable bowel syndrome with both constipation*11/06/2015 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] 08/14/2017 Varicose veins of left lower extremity with dixon*03/03/2018 Asthma [J45.909] 04/20/2018 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*06/16/2018 Paroxysmal atrial tachycardia (HCC) [I47.19] 11/29/2018 Severe episode of recurrent major depressive di*11/29/2018 Paroxysmal atrial fibrillation (HCC) [I48.0] 02/04/2019 Essential hypertension [I10] SOB (shortness of breath) [R06.02] 12/23/2021 Bilateral carotid artery stenosis [I65.23] 03/21/2024 Encounter Status:Closed by JANESSA MORTON on 04/27/24 Normal [facility] XR Ribs - left 2 Viewson IMPRESSION: No acute abnormality Audit Director: MARIE Transcribe Date/Time: Apr 25 2024 3:55P Dictated by : ABDULKADIR GONZALES MD This examination was interpreted and the report reviewed and electronically signed by: ABDULKADIR GONZALES MD on Apr 25 2024 3:55PM [facility] * * *Final Report* * * DATE OF EXAM: Apr 23 2024 10:14AM WOX 5582 - XR RIBS 2V AP/OBL LT / PROCEDURE REASON: multiple diagnoses * * * * Physician Interpretation * * * * PROCEDURE: Left RIBS INDICATION: Rib pain Muscle spasm .Pt. states Lt rib pain under breast for 1+ weeks after lifting and moving boxes. TECHNIQUE: XR RIBS 2V AP/OBL LT COMPARISON: None FINDINGS: The left ribs are intact without acute fracture, sclerotic or lytic lesion. No pleural effusion or pneumothorax. Loop recorder is noted. DIVISION OF RADIOLOGY Provider, [facility] - 04/25/2024 * * *Final Report* * * DATE OF EXAM: Apr 23 2024 10:14AM WOX 5582 - XR RIBS 2V AP/OBL LT / PROCEDURE REASON: multiple diagnoses * * * * Physician Interpretation * * * * PROCEDURE: Left RIBS INDICATION: Rib pain Muscle spasm .Pt. states Lt rib pain under breast for 1+ weeks after lifting and moving boxes. TECHNIQUE: XR RIBS 2V AP/OBL LT COMPARISON: None FINDINGS: The left ribs are intact without acute fracture, sclerotic or lytic lesion. No pleural effusion or pneumothorax. Loop recorder is noted. IMPRESSION IMPRESSION: No acute abnormality Audit Director: PSCB Transcribe Date/Time: Apr 25 2024 3:55P Dictated by : ABDULKADIR GONZALES MD This examination was interpreted and the report reviewed and electronically signed by: ABDULKADIR GONZALES MD on Apr 25 2024 3:55PM EST [facility] XR Ribs - left 2 ViewsOrdere d By: [facility] Provider on 04-25-2024 [facility] XR RIBS 2V AP/OBL LTon 04-23 XR RIBS 2V AP/OBL LT * * *Final Report* * * DATE OF EXAM: Apr 23 2024 10:14AM WOX 5582 - XR RIBS 2V AP/OBL LT / PROCEDURE REASON: multiple diagnoses * * * * Physician Interpretation * * * * PROCEDURE: Left RIBS INDICATION: Rib pain Muscle spasm .Pt. states Lt rib pain under breast for 1+ weeks after lifting and moving boxes. TECHNIQUE: XR RIBS 2V AP/OBL LT COMPARISON: None FINDINGS: The left ribs are intact without acute fracture, sclerotic or lytic lesion. No pleural effusion or pneumothorax. Loop recorder is noted. IMPRESSION: No acute abnormality Audit Director: PSCB Transcribe Date/Time: Apr 25 2024 3:55P Dictated by : ABDULKADIR GONZALES MD This examination was interpreted and the report reviewed and electronically signed by: ABDULKADIR GONZALES MD on Apr 25 2024 3:55PM EST [id number] Normal [facility] XR Ribs - left 2 Viewson Radiology Study observation (narrative) [facility] CNOVon 04-22-2024 CNOV Office Visit (INTMWS ) -- CADY BERUMEN ([id number]) 1945 F Date Time Provider Department 04/22/24 4:00 PM MOON TEIXEIRAWS During your visit today, we recorded the following information about you: Pulse Blood pressure Weight 71/minute 112/78 72.6 kg Moon Teixeira MD 04/22/2024 4:54 PM Signed Reason for Visit Patient presents with: Pain: Left side of chest since last week. Moved and lifting things up saw chiropractor, searing pain in chest muscle taking muscle relaxer seemed to help. Cady Berumen is a 78 year old female who presents here today for Above Complaints.. Health Maintenance Spirometry Anxiety Screening BP Controlled (<130/80) Advance Directive Discussion HPI This is a very pleasant 78-year-old with a past medical history of paroxysmal A-fib, essential hypertension, asthma, irritable bowel, allergic rhinitis, severe episode of recurrent major depressive disorder. Was unpacking at home on , she was putting them up on a shelf above her head, about 2 am to go to the restroom and she just could not straighten up. It hurt in her ribs not her hip. She took some baclofen and thought she was fine , went to chiropractor for regular session but she had a lot of pain in the ribs No problem-specific Assessment AND Plan notes found for this encounter. 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: Vitamin D deficiency PAST SURGICAL HISTORY 1988: ARTHRP TEMPOROMANDIBULAR JOINT W/WO AUTOGRAFT 2006: CATARACT SURGERY, COMPLEX Comment: Rt AND Lt 11/08/2010: COLONOSCOPY FLX DX W/COLLJ SPEC WHEN PFRMD Comment: Colonoscopy 08/23/2019: COLONOSCOPY FLX DX W/COLLJ SPEC WHEN PFRMD Comment: [facility] Florezbul repeat is not recommended 1991: NEUROPLASTY AND/TRANSPOS MEDIAN NRV CARPAL TUNNE Comment: Carpal tunnel decomp-bilateral 08-21-05: PAST SURGICAL HISTORY OF Comment: EXCISION CYST LEFT MIDDLE FINGER No date: PAST SURGICAL HISTORY OF Comment: right foot surgery- mortons neuroma 2014: PAST SURGICAL HISTORY OF Comment: left foot vein ablation 1961: TONSILLECTOMY PRIMARY/SECONDARY AGE 12/> FAMILY HISTORY Problem Relation Age of Onset Heart Father Allergies Sister Breast Cancer Sister age of 50's with diagnosis Prostate Cancer Brother Social History Tobacco Use Smoking status: Never Smokeless tobacco: Never Vaping Use Vaping status: Never Used Substance Use Topics Alcohol use: Not Currently Drug use: No Past medical history, appointments, medications, allergies reviewed. Pertinent Lab/Diagnostic Studies are reviewed and discussed today Current Outpatient Medications: melatonin 1 mg subl escitalopram oxalate (LEXAPRO) 5 mg tablet baclofen 10 mg tablet rosuvastatin (CRESTOR) 5 mg tablet Boswellia cecile extract (BOSWELLIA CECILE XT, BULK,) 70 % powd prasterone, DHEA, (DHEA ORAL) metoprolol tartrate, short acting, (LOPRESSOR) 25 mg tablet timolol maleate (TIMOPTIC) 0.5 % ophthalmic solution warfarin (COUMADIN) 5 mg tablet ALPHA LIPOIC ACID ORAL Cholecalciferol, Vitamin D3, 50 mcg (2,000 unit) cap COQ10, UBIQUINOL, ORAL latanoprost (XALATAN) 0.005 % ophthalmic solution Review of Systems CONSTITUTIONAL: No fevers, chills night sweats, unintended weight loss CARDIOVASCULAR: No chest pain, dyspnea, palpitations, orthopnea, PND, ankle edema. PULM: No dyspnea, unexplained cough. GI: No dysphagia/odynophagia, problematic reflux, constipation, diarrhea, changes in stool habits, hematochezia, melena. : No new urinary complaints, including dysuria, gross hematuria or pyuria. NEURO: No new balance problems, peripheral weakness/paresthesias or numbness of concern. Physical Exam There were no vitals taken for this visit. General appearance: Well appearing, alert, in no acute distress, well nourished. Skin: Skin color, texture, turgor normal, no suspicious rashes or lesions Head: Normocephalic, no masses, lesions, tenderness or abnormalities Eyes: Anicteric sclera. Pupils are equally round and reactive to light. Extraocular movements are intact. Pain to palpation of the 10 to 12 rib in the anterior axillary line ASSESSMENT/PLAN: 1. Rib pain - ICD9: 786.50, ICD10: R07.81 (primary diagnosis) - XR RIBS 2V AP/OBL LEFT 2. Muscle spasm - ICD9: 728.85, ICD10: M62.838 - XR RIBS 2V AP/OBL LEFT Chitr (more content not included)... Normal [facility] Protime w/INR Fingerstickon 04-22-2024 INR Coag (PPP) [Relative time] 2.1 {INR} Normal [facility] Comment on above: Result Comment: Crit ical Value > 4.0 Performed By: #### L 501.5200, L500.2500, L501.9520, L100.0100 #### [facility] [address] [place], [place], [id number] Protime [place]en 22.4 SEC High 11.7-14.9 [facility] Comment on above: Performed By: #### L 501.5200, L500.2500, L501.9520, L100.0100 #### [facility] [address] [place], [place], [address] CNOVon 04-18-2024 CNOV Office Visit (SIMEON ) -- CADY BERUMEN ([id number]) 1945 F Date Time Provider Department 04/18/24 12:00 PM GUCCI EMERY During your visit today, we recorded the following information about you: Gucci Emery LISW 04/18/2024 1:05 PM Signed Sensitive Note HP HOLISTIC PSYCH TREATMENT NOTE In Person Visit Individuals present:Self Date of Service: 04/18/2024 Start Time : 12:04 pm End Time:12:50 pm SUBJECTIVE: Pt presented today with symptoms of stress. Pt processed relationships with her daughters. Explored appropriate boundaries. PROGRESS TO DATE: Since last session, patient reports using therapeutic tools to practice identification of emotions, emotional expression, positive affirmations. GENERAL COMPLIANCE WITH ONGOING TREATMENT PLAN: PT reports using the mind/body tools at moderate intervals since last session. INTERVENTION(S): guided Inquiry, Clarification of behavioral patterns, discussion of alternatives, identification of emotions, processing of reactions, validation, identification and setting of healthy boundaries, and conflict exploration MENTAL STATUS SCREEN: APPEARANCE: Casual Dress, normal grooming and hygiene, ORIENTATION: oriented to time, oriented to place , oriented to person, and oriented to self: ATTITUDE: Calm and cooperative MOOD:euthymic AFFECT:Reactive and mood congruent SPEECH: Normal rate/tone/volume w/out pressure, THOUGHT PROCESS:goal directed and logical THOUGHT CONTENT:normal SUICIDAL IDEATION:None HOMICIDAL IDEATION:None PERCEPTIONS:no hallucinations/or delusions during interview MEMORY: short term intact and long term care administrator intact INSIGHT/JUDGEMENT: good DIAGNOSIS: 1. Moderate episode of recurrent major depressive disorder (HCC) - ICD9: 296.32, ICD10: F33.1 Other Conditions that May Be a Focus of Clinical Attention (V and Z codes) : none FOLLOW UP: 2 Week(s). Mental/Emotional Goals: Decrease symtoms of Anxiety Decrease symptoms of Depression Increase healthy thoughts Increase feelings of wellness Increase mental and emotional clarity Increase ability to process feelings in a healthy manner Relationship Goals: Set healthy boundaries for others Set healthy boundaries for self Gain clarity on the conflict cycle and practice empowerment tools Gain insight related to behavioral patterns Decrease limiting beliefs and increase positive self-talk Increase support systems Personal Vision: Develop mindfulness/meditation practice(s) Explore and engage in activities that align with interests REFERRALS: Referral to Psychiatrist No Referral to Neuro Psych Evaluation-Physician Order Needed No Referral to Integrative Physician No Referral to Primary Care Physician No Referral to Shared Medical Appointment: none Other Notes: Order placed for follow up appointments. Crisis Support- reviewed with Patient: Previously reviewed In the case of a mental health emergency, contact 911 and/or report to the local emergency room-this department is not available on a crisis/24 hour basis. Crisis Text Line: Text the word HOME to [phone] Copeline: [phone] JERAD Min Referring Provider: SELF [200] Allergies As of Date: 04/18/2024 Noted Allergy Reaction FRAGRANCES 11/28/2014 3 - Cough 12 - Shortness of Breath BENZODIAZEPINES 09/08/2014 1 - Mental Status Change Comments: Pt sees colors and laughing CATS 11/28/2014 9 - Itching 12 - Shortness of Breath Comments: Eventual wheezing DUST MITES 11/28/2014 14 - Other: See Comments Comments: Positive allergy test GRASS POLLEN-DONNA, STANDARD 11/28/2014 9 - Itching Comments: Nasal congestion MOLD 11/28/2014 9 - Itching Comments: Nasal congestion SEASONAL ALLERGIES 11/08/2010 3 - Cough SULFA (SULFONAMIDE ANTIBIOTICS) 06/13/2005 9 - Itching TREES 11/28/2014 9 - Itching Comments: Nasal congestion VALIUM (DIAZEPAM) 09/23/2013 5 - Intolerance Comments: Laughing hysterically, ultra sensitive ZITHROMAX (AZITHROMYCIN) 06/08/2019 14 - Other: See Comments Comments: nausea Date Reviewed: 04/05/2024 Reviewed by: Chico Rodríguez MA - Fully Assessed Reason for Visit: Stress [103] Primary Visit Diagnosis:Moderate episode of recurrent major depressive disorder (HCC) [F33.1] Order(s):FOLLOW UP - WELLNESS [[id number]] Order #: [id number]: 1 STANDING Prescriptions as of 04/18/2024 - melatonin 1 mg subl Dissolve 1 tablet under the tongue once daily. - escitalopram oxalate (LEXAPRO) 5 mg tablet Take 1 tablet by mouth once daily. Take one pill at night for 7 days and then increase to 2 pills at night - baclofen 10 mg tablet Take 1 tablet by mouth three times a day as needed (muscle spasms). - rosuvastatin (CRESTOR) 5 mg tablet Take 1 tablet by mouth daily at bedtime. - Boswellia cecile extract (BOSWELLIA CECILE XT, BULK,) 70 % powd 1 Each two arlet (more content not included)... Normal [facility] 12 Lead EKGon 04-05-2024 12 Lead EKG [facility] Cardiovascular Services [address] [place] [address] 12 Lead EKG 04/05/24 0119 MR#: [id number] Acct: [id number] Name: CADY BERUMEN Rep #: [id number] : 1945 78 From: Dominguez Garsia MD Attending Dr: Status: DEP ER Ordering Dr: Darron Thomas DO Date: 04/05/24 Location: ED Sex: F C Admitted: Test Reason : PALPITATIONS Blood Pressure : / mmHG Vent. Rate : 060 BPM Atrial Rate : 060 BPM P-R Int : 202 ms QRS Dur : 082 ms QT Int : 408 ms P-R-T Axes : 063 -09 045 degrees QTc Int : 408 ms Normal sinus rhythm Normal ECG Confirmed by SUN BAILEY, DOMINGUEZ ([id number]), proposal editor RAMONITA BOOGIE ([id number]) on 04/06/2024 9:41:06 AM Referred By: KENNY Confirmed By:DOMINGUEZ GARSIA MD 04/06/24 0941 Date Dominguez Garsia MD CC: Dr. Moon Teixeira MD; Darron Thomas DO Signed Normal [facility] Basic Metabolic Profile (BMP )on 04-05-2024 BUN/CRE 34.2 RATIO High 10-20 [facility] Comment on above: Performed By: #### L 501.5200, L500.2500, L501.9520, L100.0100 #### [facility] [address] [place], [address] CA,Total 9.5 mg/dL Normal 8.5-10.1 [facility] Comment on above: Performed By: #### L 501.5200, L500.2500, L501.9520, L100.0100 #### [facility] [address] [place], [address] Chloride [Moles/Vol] 104 mmol/L Normal 98-107 [facility] Comment on above: Performed By: #### L 501.5200, L500.2500, L501.9520, L100.0100 #### [facility] [address] [place], [address] CO2 [Moles/Vol] 27.0 mmol/L Normal 21.0-32.0 [facility] Comment on above: Performed By: #### L 501.5200, L500.2500, L501.9520, L100.0100 #### [facility] [address] [place], [address] Creatinine [Mass/Vol] 0.76 mg/dL Normal 0.55-1.02 [facility] Comment on above: Result Comment: The validity of the calculated GFR GFRAA in patients over 70 years has not been determined. Clinical correlation is essential. Performed By: #### L 501.5200, L500.2500, L501.9520, L100.0100 #### [facility] [address] [place], [address] ECRCL 57.64 ml/min Normal [facility] Comment on above: Performed By: #### L 501.5200, L500.2500, L501.9520, L100.0100 #### [facility] [address] [place], [address] EST GFR - AA 94 mL/min Normal >60 [facility] Comment on above: Result Comment: Afri can [place] GFR Calc Performed By: #### L 501.5200, L500.2500, L501.9520, L100.0100 #### [facility] [address] [place], [address] GAP 5 Normal 5-15 [facility] Comment on above: Performed By: #### L 501.5200, L500.2500, L501.9520, L100.0100 #### [facility] [address] [place], [address] GFR/1.73 sq M.predicted among non-blacks MDRD (S/P/Bld) [Vol rate/Area] 78 mL/min/{1.73_m2} Normal >60 [facility] Comment on above: Result Comment: Non- GFR Calc Performed By: #### L 501.5200, L500.2500, L501.9520, L100.0100 #### [facility] [address] [place], [address] Glucose [Mass/Vol] 100 mg/dL Normal 74-106 [facility] Comment on above: Result Comment: Fast ing Glucose result from 100 to 125 mg/dL suggests IMPAIRED HOMEOSTASIS per A.D.A. criteria. Performed By: #### L 501.5200, L500.2500, L501.9520, L100.0100 #### [facility] [address] [place], [address] Potassium [Moles/Vol] 3.9 mmol/L Normal 3.5-5.1 [facility] Comment on above: Performed By: #### L 501.5200, L500.2500, L501.9520, L100.0100 #### [facility] [address] [place], [address] Sodium [Moles/Vol] 136 mmol/L Normal 136-145 [facility] Comment on above: Performed By: #### L 501.5200, L500.2500, L501.9520, L100.0100 #### [facility] [address] [place], [address] Urea nitrogen [Mass/Vol] 26 mg/dL High 7-18 [facility] Comment on above: Performed By: #### L 501.5200, L500.2500, L501.9520, L100.0100 #### [facility] [address] [place], [address] CBC W/Diff, Automatedon 03-24 Absolute Lymph 1.69 X10 3/uL Normal 0.83-4.51 [facility] Comment on above: Performed By: #### L 501.5200, L500.2500, L501.9520, L100.0100 #### [facility] [address] [place], [address] Absolute Neut 2.8 X10 3/uL Normal 2.0-7.7 [facility] Comment on above: Performed By: #### L 501.5200, L500.2500, L501.9520, L100.0100 #### [facility] [address] [place], [address] Basophils/100 WBC (Bld) 1.1 % High 0-1 [facility] Comment on above: Performed By: #### L 501.5200, L500.2500, L501.9520, L100.0100 #### [facility] [address] [place], [address] Eosinophils/100 WBC (Bld) 4.6 % Normal 0-5 [facility] Comment on above: Performed By: #### L 501.5200, L500.2500, L501.9520, L100.0100 #### [facility] [address] [place], [address] Erythrocyte distribution width (RBC) [Ratio] 13.6 % Normal 11.6-14.6 [facility] Comment on above: Performed By: #### L 501.5200, L500.2500, L501.9520, L100.0100 #### [facility] [address] [place], [address] Hematocrit (Bld) [Volume fraction] 40.2 % Normal 37-47 [facility] Comment on above: Performed By: #### L 501.5200, L500.2500, L501.9520, L100.0100 #### [facility] [address] [place], [address] Hemoglobin (Bld) [Mass/Vol] 13.2 g/dL Normal 12.0-15.0 [facility] Comment on above: Performed By: #### L 501.5200, L500.2500, L501.9520, L100.0100 #### [facility] [address] [place], [address] IG% 0.400 Normal 0.0-0.9 [facility] Comment on above: Result Comment: IG% - Immature Granulocytes (promyelocytes, myelocytes and metamyelocytes) > 1% indicates that a LEFT SHIFT is Present. Performed By: #### L 501.5200, L500.2500, L501.9520, L100.0100 #### [facility] [address] [place], [address] Lymphocytes/100 WBC (Bld) 31.3 % Normal 19-41 [facility] Comment on above: Performed By: #### L 501.5200, L500.2500, L501.9520, L100.0100 #### [facility] [address] [place], [address] MCH (RBC) [Entitic mass] 32.0 pg Normal 27.0-32.0 [facility] Comment on above: Performed By: #### L 501.5200, L500.2500, L501.9520, L100.0100 #### [facility] [address] [place], [address] MCHC (RBC) [Mass/Vol] 32.8 g/dL Normal 32-36 [facility] Comment on above: Performed By: #### L 501.5200, L500.2500, L501.9520, L100.0100 #### [facility] [address] [place], [address] MCV (RBC) [Entitic vol] 97.6 fL Normal 81-99 [facility] Comment on above: Performed By: #### L 501.5200, L500.2500, L501.9520, L100.0100 #### [facility] [address] [place], [address] Monocytes/100 WBC (Bld) 11.1 % High 0-10 [facility] Comment on above: Performed By: #### L 501.5200, L500.2500, L501.9520, L100.0100 #### [facility] [address] [place], [address] Neutrophils/100 WBC (Bld) 51.5 % Normal 47-70 [facility] Comment on above: Performed By: #### L 501.5200, L500.2500, L501.9520, L100.0100 #### [facility] [address] [place], [address] Nucleated RBC (Bld) [#/Vol] 0 10*3/uL Normal 0-5 [facility] Comment on above: Performed By: #### L 501.5200, L500.2500, L501.9520, L100.0100 #### [facility] [address] [place], [address] Platelet mean volume (Bld) [Entitic vol] 13.1 fL High 6.2-12.0 [facility] Comment on above: Performed By: #### L 501.5200, L500.2500, L501.9520, L100.0100 #### [facility] [address] [place], [address] Platelets (Bld) [#/Vol] 164 10*3/uL Normal 150-450 [facility] Comment on above: Performed By: #### L 501.5200, L500.2500, L501.9520, L100.0100 #### [facility] [address] [place], [address] RBC (Bld) [#/Vol] 4.12 10*6/uL Low 4.2-5.4 [facility] Comment on above: Performed By: #### L 501.5200, L500.2500, L501.9520, L100.0100 #### [facility] [address] [place], [address] RDW SD 48.6 fl High 35.1-43.9 [facility] Comment on above: Performed By: #### L 501.5200, L500.2500, L501.9520, L100.0100 #### [facility] [address] [place], [address] WBC (Bld) [#/Vol] 5.4 10*3/uL Normal 4.4-11.0 [facility] Comment on above: Performed By: #### L 501.5200, L500.2500, L501.9520, L100.0100 #### [facility] [address] [place], [address] CNOVon 04-05-2024 CNOV Office Visit (INTMWS ) -- CADY BERUMEN ([id number]) 1945 F Date Time Provider Department 04/05/24 9:00 AM MOON TEIXEIRA INTMWS During your visit today, we recorded the following information about you: Pulse Respiration Blood pressure 62/minute 16/minute 100/64 Moon Teixeira MD 04/05/2024 11:26 AM Signed Reason for Visit Patient presents with: Establish Care: ER 04/05/24 AM Cadymichelle Berumen is a 78 year old female who presents here today for Above Complaints.. Health Maintenance Spirometry Anxiety Screening BP Controlled (<130/80) Advance Directive Discussion HPI This is a very pleasant 78-year-old with a past medical history of paroxysmal A-fib, essential hypertension, asthma, irritable bowel, allergic rhinitis, severe episode of recurrent major depressive disorder. Paroxysmal Afib: she first was diagnosed with afib after covid shots. Since then she has had palpitations on and off. on Eliquis and takes metoprolol as needed as her heart rate goes down to 44. She has a loop recorder from [facility]. She will follow up on May [address] Donaldson. Very stressed. She is going to complete moving the house end of the month. She drinks 2/3 cups of decaf green tea. She has been having swallowing issues, has trouble swallowing dry foods very occasionally. A lot of grief recently, with of and caregiver stress, with for many years and now with daughter with recent diagnosis of POTS. No problem-specific Assessment AND Plan notes found for this encounter. 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: Vitamin D deficiency PAST SURGICAL HISTORY 1988: ARTHRP TEMPOROMANDIBULAR JOINT W/WO AUTOGRAFT 2006: CATARACT SURGERY, COMPLEX Comment: Rt AND Lt 11/08/2010: COLONOSCOPY FLX DX W/COLLJ SPEC WHEN PFRMD Comment: Colonoscopy 08/23/2019: COLONOSCOPY FLX DX W/COLLJ SPEC WHEN PFRMD Comment: CROW Estrella repeat is not recommended 1991: NEUROPLASTY AND/TRANSPOS MEDIAN NRV CARPAL TUNNE Comment: Carpal tunnel decomp-bilateral 08-21-05: PAST SURGICAL HISTORY OF Comment: EXCISION CYST LEFT MIDDLE FINGER No date: PAST SURGICAL HISTORY OF Comment: right foot surgery- mortons neuroma 2014: PAST SURGICAL HISTORY OF Comment: left foot vein ablation 196: TONSILLECTOMY PRIMARY/SECONDARY AGE 12/> FAMILY HISTORY Problem Relation Age of Onset Heart Father Allergies Sister Breast Cancer Sister age of 50's with diagnosis Prostate Cancer Brother Social History Tobacco Use Smoking status: Never Smokeless tobacco: Never Vaping Use Vaping Use: Never used Substance Use Topics Alcohol use: Not Currently Drug use: No Past medical history, appointments, medications, allergies reviewed. Pertinent Lab/Diagnostic Studies are reviewed and discussed today Current Outpatient Medications: baclofen 10 mg tablet rosuvastatin (CRESTOR) 5 mg tablet Boswellia cecile extract (BOSWELLIA CECILE XT, BULK,) 70 % powd prasterone, DHEA, (DHEA ORAL) metoprolol tartrate, short acting, (LOPRESSOR) 25 mg tablet timolol maleate (TIMOPTIC) 0.5 % ophthalmic solution warfarin (COUMADIN) 5 mg tablet ALPHA LIPOIC ACID ORAL Cholecalciferol, Vitamin D3, 50 mcg (2,000 unit) cap COQ10, UBIQUINOL, ORAL latanoprost (XALATAN) 0.005 % ophthalmic solution Review of Systems CONSTITUTIONAL: No fevers, chills night sweats, unintended weight loss CARDIOVASCULAR: No chest pain, dyspnea, palpitations, orthopnea, PND, ankle edema. PULM: No dyspnea, unexplained cough. GI: No dysphagia/odynophagia, problematic reflux, constipation, diarrhea, changes in stool habits, hematochezia, melena. : No new urinary complaints, including dysuria, gross hematuria or pyuria. NEURO: No new balance problems, peripheral weakness/paresthesias or numbness of concern. Physical Exam BP 100/64 Pulse 62 Resp 16 General appearance: Well appearing, alert, in no acute distress, well nourished. Skin: Skin color, texture, turgor normal, no suspicious rashes or lesions Head: Normocephalic, no masses, lesions, tenderness or abnormalities Eyes: Anicteric sclera. Pupils are equally round and reactive to light. Extraocular movements are intact. Lungs: Lungs clear to auscultation. No wheezing, rhonchi, rales Heart: RRR without murmur, gallop, or rubs. Extremities: No d (more content not included)... Normal [facility] Emergency Department Summary on 04-05-2024 Emergency Department Summary [facility] Medical Records Department [address] [place] [address] Emergency Department Summary 04/05/24 MR#: [id number] Acct: [id number] Name: CADY BERUMEN Rep #: [id number] : 1945 78 From: Darron Thomas DO PCP: Dr. Moon Teixeira MD Status:DEP ER Location: ED HPI History of Present Illness Chief Complaint: Palpitations Informant: patient Narrative Narrative: Patient is a 78-year-old female with past medical history of hypertension and paroxysmal atrial fibrillation currently on Coumadin. She states she has been under a great deal of stress recently and has been feeling she has been going in and out of atrial fibrillation. She reports that she is also difficulty sleeping and has been experiencing excessive fatigue. She reports she recently had a carotid duplex and echo performed which were normal. She states however she felt like she was in atrial fibrillation this evening and not able to spontaneously flipped out of it which concerned her and therefore she comes to the hospital for evaluation. [facility] Medical History Shortness of breath PRAMOD (obstructive sleep apnea) senior care (current) use of 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 Paroxysmal atrial fibrillation Change in bowel habit Asthma Near syncope Atrial tachycardia (10/14/18) Varicose vein of leg Vestibular neuritis Osteopenia Osteoarthritis Chronic venous insufficiency Glaucoma Essential (primary) hypertension Home Medications ???Medication ???Instructions ???Recorded ???Last Taken ???Type cholecalciferol (vitamin D3) 25 1,000 unit PO BID vitamin 03/10/16 10/11/22 History mcg (1,000 unit) tablet latanoprost 0.005 % eye drops 1 drp EACH EYE [facility] eye health 03/10/16 10/11/22 History coenzyme Q10 50 mg chewable tablet 30 mg PO DAILY 06/07/19 10/11/22 History timolol 0.25 % eye drops 1 drp ophthalmic (eye) BID 12/02/21 10/11/22 History alpha lipoic acid 50 mg capsule 50 mg PO DAILY supplement 10/12/22 10/11/22 History warfarin 5 mg tablet 10 mg PO JONAS afib 10/12/22 10/05/22 History metoprolol tartrate 25 mg tablet 12.5 mg PO BID PRN afib 11/11/23 Unknown History warfarin 5 mg tablet 7.5 mg PO DAILY #135 tabs 12/28/23 Unknown Rx Allergy/AdvReac Type Severity Reaction Status Date / Time cat dander Allergy Mild congestion Verified 04/05/24 01:13 grass pollen Allergy Mild Cough, Verified 04/05/24 01:13 rhinitis house dust Allergy Mild Cough, Verified 04/05/24 01:13 rhinitis mold Allergy Mild Cough, Verified 04/05/24 01:13 rhinitis tree and shrub pollen Allergy Mild Cough, Verified 04/05/24 01:13 rhinitis Sulfa (Sulfonamide Allergy Itching Verified 04/05/24 01:13 Antibiotics) losartan AdvReac Severe dizziness, Verified 04/05/24 01:13 severe amlodipine AdvReac Intermediate dizziness Verified 04/05/24 01:13 lisinopril AdvReac Intermediate Nagging Verified 04/05/24 01:13 dry cough Benzodiazepines AdvReac Other Verified 04/05/24 01:13 diazepam (From Valium) AdvReac Other Verified 04/05/24 01:13 Family History Father Myocardial infarction from [place] age 61 Heart disease Diabetes Sister Breast cancer Other senior care (current) use of 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 Surgical History History of carpal tunnel release History of cataract surgery History of tonsillectomy history TMJ surgery history vein surgery S/P excision of Ramos's neuroma Social History household members: spouse housing: house Smoking Status: Never smoker alcohol intake: current alcohol intake frequency: a few times a month substance use type: does not use what type of physical activity do you participate in: none do you feel safe at home: Yes ROS ROS ED Constitutional Constitutional ED: Denies chills or fever(s) Eyes Eyes: Denies blurry vision or change in vision ENT ENT ED: Denies rhinorrhea or sore throat Cardiovascular Cardiovascular: Reports palpitations and racing heartbeat; Denies chest pain Respiratory/Chest Respiratory/Chest: Reports dyspnea; Denies cough Gastrointestinal Gastrointestinal: Denies abdominal pain, diarrhea, nausea or vomiting Genitourinary Genitourinary ED: Denies dysuria Musculoskeletal Musculoskeletal: Reports myalgias Integumentary Denies rash Neurologic Neurologic: Reports weakness; Denies headache(s) Hematologic/Lymphatic Hematologic/Lymphatic: Reports easy bleeding and easy bruising EXAM Physical Exam Const Vital Signs: 04/05/24 01:12 04/05/24 01:12 04/05/24 02:12 Temperature 97.1 F L Temperature Source Temporal Pulse Rate 64 61 Respiratory Rate 16 (more content not included)... Normal [facility] Magnesiumon 04-05-2024 Magnesium [Mass/Vol] 2.3 mg/dL Normal 1.6-2.6 [facility] Comment on above: Performed By: #### L 501.5200, L500.2500, L501.9520, L100.0100 #### [facility] [address] [place], [address] Prothrombin Time w/INRon INR Coag (PPP) [Relative time] 2.4 {INR} Normal [facility] Comment on above: Performed By: #### L 501.5200, L500.2500, L501.9520, L100.0100 #### [facility] [address] [place], [address] PT Coag (PPP) [Time] 26.4 s High 11.7-14.9 [facility] Comment on above: Performed By: #### L 501.5200, L500.2500, L501.9520, L100.0100 #### [facility] [address] [place], [address] Thyroid Stim Hormone (TSH)on 04-05-2024 TSH 6.78 uIU/mL High 0.358-3.74 [facility] Comment on above: Performed By: #### L 501.5200, L500.2500, L501.9520, L100.0100 #### [facility] [address] [place], [address] Urinalysis, Completeon 04-05 BACTERIA 0 SEEN Normal None Seen [facility] Comment on above: Order Comment: CLEAN CATCH Performed By: #### L 501.5200, L500.2500, L501.9520, L100.0100 #### [facility] [address] [place], [address] EPI,SQUAMOUS 0 SEEN Normal 5-10 [facility] Comment on above: Order Comment: CLEAN CATCH Performed By: #### L 501.5200, L500.2500, L501.9520, L100.0100 #### [facility] [address] [place], [address] Mucus Ql (Urine sed) 0 SEEN Normal [facility] Comment on above: Order Comment: CLEAN CATCH Performed By: #### L 501.5200, L500.2500, L501.9520, L100.0100 #### [facility] [address] [place], [address] RBC 0 SEEN Normal 0-5 [facility] Comment on above: Order Comment: CLEAN CATCH Performed By: #### L 501.5200, L500.2500, L501.9520, L100.0100 #### [facility] [address] [place], [address] WBC 0 SEEN Normal 0-5 [facility] Comment on above: Order Comment: CLEAN CATCH Performed By: #### L 501.5200, L500.2500, L501.9520, L100.0100 #### [facility] [address] [place], [address] CNPAlise 03-21-2024 ENOCN Telephone ([facility]) -- SKEIN YARN DRIERCADY ROJAS ([id number]) 1945 F Date Time Provider Department 03/21/24 NIRALI ALMANZA During your visit today, we recorded the following information about you: Nirali Almanza PA-C 03/21/2024 9:24 AM Signed Let patient know that her Carotid US is overall normal for 78yo. Only mild disease noted. Paul Philip LPN 03/21/2024 9:36 AM Signed Left message for pt to contact office. TOYA Dubois Krystle, RN 03/21/2024 12:11 PM Signed Patient calls and notified of results and providers instructions. Patient verbalizes understanding. Lauren Bui RN Allergies As of Date: 03/21/2024 Noted Allergy Reaction FRAGRANCES 11/28/2014 3 - Cough 12 - Shortness of Breath BENZODIAZEPINES 09/08/2014 1 - Mental Status Change Comments: Pt sees colors and laughing CATS 11/28/2014 9 - Itching 12 - Shortness of Breath Comments: Eventual wheezing DUST MITES 11/28/2014 14 - Other: See Comments Comments: Positive allergy test GRASS POLLEN-DONNA, STANDARD 11/28/2014 9 - Itching Comments: Nasal congestion MOLD 11/28/2014 9 - Itching Comments: Nasal congestion SEASONAL ALLERGIES 11/08/2010 3 - Cough SULFA (SULFONAMIDE ANTIBIOTICS) 06/13/2005 9 - Itching TREES 11/28/2014 9 - Itching Comments: Nasal congestion VALIUM (DIAZEPAM) 09/23/2013 5 - Intolerance Comments: Laughing hysterically, ultra sensitive ZITHROMAX (AZITHROMYCIN) 06/08/2019 14 - Other: See Comments Comments: nausea Date Reviewed: 02/10/2024 Reviewed by: Paul Philip LPN - Fully Assessed Reason for Visit: Results [95] Primary Visit Diagnosis:Bilateral carotid artery stenosis [I65.23] Prescriptions as of 03/21/2024 - baclofen 10 mg tablet Take 1 tablet by mouth three times a day as needed (muscle spasms). - rosuvastatin (CRESTOR) 5 mg tablet Take 1 tablet by mouth daily at bedtime. - Boswellia cecile extract (BOSWELLIA CECILE XT, BULK,) 70 % powd 1 Each two times a day. - prasterone, DHEA, (DHEA ORAL) Take by mouth. 0.15 mg - metoprolol tartrate, short acting, (LOPRESSOR) 25 mg tablet Take 25 mg by mouth twice daily. Takes as needed for rapid HR - timolol maleate (TIMOPTIC) 0.5 % ophthalmic solution Use 1 Drop in both eyes twice daily. - warfarin (COUMADIN) 5 mg tablet Take 1 tablet by mouth daily except 7.5mg on ( [facility]) - ALPHA LIPOIC ACID ORAL Take by mouth. - Cholecalciferol, Vitamin D3, 50 mcg (2,000 unit) cap Take 2 capsules by mouth once daily. - COQ10, UBIQUINOL, ORAL Take 30 mg by mouth. - latanoprost (XALATAN) 0.005 % ophthalmic solution Use 1 Drop in both eyes daily at bedtime. Meds Comments as of 05/10/2015: Does not take antivert, ibuprofen, aleve. Does take boswelia frankincense and white willow. Problem List As Of Date 03/21/2024 Noted Resolved ALLERGIC RHINITIS NOS [J30.9] 06/19/2004 WOUND (NOT COMPLICATED) - OPEN FINGER(S) [S61.*06/14/2005 10/08/2014 GANGLION JOINT (Mucous cyst left hand 3rd digit*08/07/2005 10/08/2014 GENERAL OSTEOARTHROSIS [M15.9] 11/23/2006 Abdominal pain, unspecified site [R10.9] 11/23/2006 10/08/2014 Lumbago [M54.50] 11/16/2008 10/08/2014 Rectal bleeding [K62.5] 09/06/2010 10/08/2014 Cellulitis [L03.90] 06/24/2013 10/08/2014 Ulcer of ankle (HCC) [L97.309] 06/24/2013 10/08/2014 Venous stasis ulcer of right ankle limited to b*07/18/2013 06/09/2023 Vitamin D deficiency [E55.9] 09/20/2013 Frequency of urination [R35.0] 03/01/2014 10/08/2014 Urgency of urination [R39.15] 03/01/2014 10/08/2014 Nocturia [R35.1] 03/01/2014 Hesitancy of micturition [R39.11] 03/01/2014 Varicose veins of right lower extremity [I83.91]08/25/2014 BPPV (benign paroxysmal positional vertigo) [H8*10/30/2014 Vertigo of central origin [H81.4] 12/11/2014 Peripheral vertigo, unspecified [H81.399] 12/11/2014 Sprain of sacroiliac joint [S33.6XXA] 11/06/2015 Irritable bowel syndrome with both constipation*11/06/2015 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] 08/14/2017 Varicose veins of left lower extremity with dixon*03/03/2018 Asthma [J45.909] 04/20/2018 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*06/16/2018 Paroxysmal atrial tachycardia (HCC) [I47.19] 11/29/2018 Severe episode of recurrent major depressive di*11/29/2018 Paroxysmal atrial fibrillation (HCC) [I48.0] 02/04/2019 Essential hypertension [I10] SOB (shortness of breath) [R06.02] 12/23/2021 Bilateral carotid artery stenosis [I65.23] 03/21/2024 Encounter Status:Closed by LAUREN BUI on 03/21/24 Normal [facility] Protime w/INR Fingerstickon 03-21-2024 INR Coag (PPP) [Relative time] 2.0 {INR} Normal [facility] Comment on above: Result Comment: Crit ical Value > 4.0 Performed By: #### L 9200.0000 #### [facility] [address] [place], [address] Protime Coagsen 20.7 SEC High 11.7-14.9 [facility] Comment on above: Performed By: #### L 9200.0000 #### [facility] [address] [place], [place], [id number] US CAROTID ARTERIES CHRISTOPHER VAS LABon 03-18-2024 US CAROTID ARTERIES [facility]STOPHER [facility] LAB Non-Invasive Vascular Laboratory [facility] Carotid Duplex Bilateral/Complete Date of service/time: 03/18/2024 9:56:28 AM Name: MRS. CADY BERUMEN Date of : 1945 Age: 78 years Gender: F Clinical Indication Dizziness and neck pain. TECHNIQUE -------- A carotid duplex ultrasound examination was performed, including grayscale imaging and color Doppler and spectral Doppler examination of the below mentioned arteries. FINDINGS -------- RIGHT SIDE Common carotid artery: Origin: PSV: 79 cm/s. EDV: 10 cm/s. Proximal: PSV: 91 cm/s. EDV: 12 cm/s. Mid: PSV: 74 cm/s. EDV: 12 cm/s. Distal: PSV: 53 cm/s. EDV: 10 cm/s. Mild heterogeneous plaque at distal. Internal carotid artery: Origin: PSV: 46 cm/s. EDV: 7 cm/s. Proximal: PSV: 63 cm/s. EDV: 15 cm/s. Mid: PSV: 80 cm/s. EDV: 18 cm/s. Distal: PSV: 83 cm/s. EDV: 25 cm/s. Mild heterogeneous calcified and shadowing plaque from origin to proximal. ICA/CCA Ratio: 1.6 External carotid artery: Origin: PSV: 64 cm/s. EDV: 0 cm/s. Subclavian artery: Origin: PSV: 137 cm/s. EDV: 0 cm/s. Innominate artery: PSV: 128 cm/s. EDV: 0 cm/s. Vertebral artery: PSV: 53 cm/s. EDV: 10 cm/s. LEFT SIDE Common carotid artery: Proximal: PSV: 118 cm/s. EDV: 19 cm/s. Mid: PSV: 74 cm/s. EDV: 14 cm/s. Distal: PSV: 65 cm/s. EDV: 17 cm/s. Mild heterogeneous plaque at distal. Mild homogeneous plaque at mid. Internal carotid artery: Origin: PSV: 57 cm/s. EDV: 14 cm/s. Proximal: PSV: 74 cm/s. EDV: 19 cm/s. Mid: PSV: 76 cm/s. EDV: 21 cm/s. Distal: PSV: 76 cm/s. EDV: 20 cm/s. Moderate heterogeneous plaque at origin. ICA/CCA Ratio: 1.2 External carotid artery: Origin: PSV: 51 cm/s. EDV: 0 cm/s. Subclavian artery: Proximal: PSV: 151 cm/s. EDV: 0 cm/s. Vertebral artery: PSV: 55 cm/s. EDV: 14 cm/s. IMPRESSION RIGHT SIDE Common carotid artery: Plaque visualized without evidence of hemodynamically significant stenosis. Internal carotid artery: 20-39% stenosis. Vertebral artery: Patent and antegrade flow noted. Subclavian artery: Patent. LEFT SIDE Common carotid artery: Plaque visualized without evidence of hemodynamically significant stenosis. Internal carotid artery: 20-39% stenosis. Vertebral artery: Patent and antegrade flow noted. Subclavian artery: Patent. Technologist: Abbie Ridley RVT [facility] Ordering physician: NIRALI ALMANZA Interpreting physician: RHONDA Brown DO Final CC [employer] Image : [id number] See Link below for Image [facility] Telephone (JOEWS) -- CADY BERUMEN ([id number]) 1945 F Date Time Provider Department 03/15/24 [facility] During your visit today, we recorded the following information about you: Elizabeth Gonzalez RN 03/15/2024 9:46 AM Signed Patient was transferred to this nurse with concerns of having heart failure. Reports she is feeling more tired lately, but admits she is not sleeping well. Reports she had a ECHO done recently, and was not told if it showed that she had CHF. Advised per 02-22-24 telephone encounter provider advised "no significant CHF noted on echo." Patient states she feels better just knowing this. Reports her in February, and her dog in November, and she lives in an apartment, that she is moving out of in March, and moving back to [place]. We discussed these stressors for a while, and patient states talking with this nurse has made her feel better and the anxiety is less now. Reports she has an appt with Dr. Bowman, cardiology in Apr, and also with Dr. Shirley, to check her loop recorder/pacemaker. Reports the loop recorder records her heart activity 16/03 and sends a report to Dr. Shirley. Patient reports she saw [facility] a couple months ago and talked about heart failure with the Tassel Clipper there, and Tassel Clipper felt patient was fine. Reports she has an appt with Dr. Teixeira 04-05-24. Patient gave her BP readings: 132/80 (57), 102/79 (89), 94/73, 100/80, 99/77, 96/80, 94/73. Reports she has metoprolol to take only if she is in a-fib, and her BP monitor tells her if she's having an irregular rhythm. Reports the night before last she was in a-fib and took a metoprolol that night, and the a-fib resolved. Advised patient low BP is when BP < 90/60 with symptoms of dizziness, lightheaded, weakness upon standing or fainting. Patient reports she is feeling fine now, anxiety has gone down, and she is less worried about CHF. Patient agreeable to call back to nurse with any questions or concerns, and agreeable to call squad if any symptoms/signs of low BP. Allergies As of Date: 03/15/2024 Noted Allergy Reaction FRAGRANCES 11/28/2014 3 - Cough 12 - Shortness of Breath BENZODIAZEPINES 09/08/2014 1 - Mental Status Change Comments: Pt sees colors and laughing CATS 11/28/2014 9 - Itching 12 - Shortness of Breath Comments: Eventual wheezing DUST MITES 11/28/2014 14 - Other: See Comments Comments: Positive allergy test GRASS POLLEN-DONNA, STANDARD 11/28/2014 9 - Itching Comments: Nasal congestion MOLD 11/28/2014 9 - Itching Comments: Nasal congestion SEASONAL ALLERGIES 11/08/2010 3 - Cough SULFA (SULFONAMIDE ANTIBIOTICS) 06/13/2005 9 - Itching TREES 11/28/2014 9 - Itching Comments: Nasal congestion VALIUM (DIAZEPAM) 09/23/2013 5 - Intolerance Comments: Laughing hysterically, ultra sensitive ZITHROMAX (AZITHROMYCIN) 06/08/2019 14 - Other: See Comments Comments: nausea Date Reviewed: 02/10/2024 Reviewed by: Paul Philip LPN - Fully Assessed Reason for Visit: Patient Question [1477] Prescriptions as of 03/15/2024 - baclofen 10 mg tablet Take 1 tablet by mouth three times a day as needed (muscle spasms). - rosuvastatin (CRESTOR) 5 mg tablet Take 1 tablet by mouth daily at bedtime. - Boswellia cecile extract (BOSWELLIA CECILE XT, BULK,) 70 % powd 1 Each two times a day. - prasterone, DHEA, (DHEA ORAL) Take by mouth. 0.15 mg - metoprolol tartrate, short acting, (LOPRESSOR) 25 mg tablet Take 25 mg by mouth twice daily. Takes as needed for rapid HR - timolol maleate (TIMOPTIC) 0.5 % ophthalmic solution Use 1 Drop in both eyes twice daily. - warfarin (COUMADIN) 5 mg tablet Take 1 tablet by mouth daily except 7.5mg on ( [facility]) - ALPHA LIPOIC ACID ORAL Take by mouth. - Cholecalciferol, Vitamin D3, 50 mcg (2,000 unit) cap Take 2 capsules by mouth once daily. - COQ10, UBIQUINOL, ORAL Take 30 mg by mouth. - latanoprost (XALATAN) 0.005 % ophthalmic solution Use 1 Drop in both eyes daily at bedtime. Meds Comments as of 05/10/2015: Does not take antivert, ibuprofen, aleve. Does take boswelia frankincense and white willow. Problem List As Of Date 03/15/2024 Noted Resolved ALLERGIC RHINITIS NOS [J30.9] 06/19/2004 WOUND (NOT COMPLICATED) - OPEN FINGER(S) [S61.*06/14/2005 10/08/2014 GANGLION JOINT (Mucous cyst left hand 3rd digit*08/07/2005 10/08/2014 GENERAL OSTEOARTHROSIS [M15.9] 11/23/2006 Abdominal pain, unspecified site [R10.9] 11/23/2006 10/08/2014 Lumbago [M54.50] 11/16/2008 10/08/2014 Rectal bleeding [K62.5] 09/06/2010 10/08/2014 Cellulitis [L03.90] 06/24/2013 10/08/2014 Ulcer of ankle (HCC) [L97.309] 06/24/2013 10/08/2014 Venous stasis ulcer of right ankle limited to b*07/18/2013 06/09/2023 Vitamin D deficiency [E55.9] 09/20/2013 Frequency of urination [R35.0] 03/01/2014 10/08/2014 Urgen (more content not included)... Normal [facility] CBC W Auto Differential pane l (Bld)on 02-10-2024 Basophils (Bld) [#/Vol] 0.08 10*3/uL [facility] Basophils/100 WBC (Bld) 1.2 % [facility] Differential cell count method Nom (Bld) Auto [facility] Eosinophils (Bld) [#/Vol] 0.22 10*3/uL [facility] Eosinophils/100 WBC (Bld) 3.2 % [facility] Erythrocyte distribution width (RBC) [Ratio] 13.3 % 11.5 - 15.0 % [facility] Hematocrit (Bld) [Volume fraction] 39.3 % 36.0 - 46.0 % [facility] Hemoglobin (Bld) [Mass/Vol] 12.6 g/dL 11.5 - 15.5 g/dL [facility] Immature granulocytes (Bld) [#/Vol] [facility] Immature granulocytes/100 WBC (Bld) 0.1 % [facility] Interpretation and review of laboratory results Abnormal [facility] Lymphocytes (Bld) [#/Vol] 1.86 10*3/uL [facility] Lymphocytes/100 WBC (Bld) 27.0 % [facility] MCH (RBC) [Entitic mass] 31.7 pg 26.0 - 34.0 pg [facility] MCHC (RBC) [Mass/Vol] 32.1 g/dL 30.5 - 36.0 g/dL [facility] MCV (RBC) [Entitic vol] 99.0 fL 80.0 - 100.0 fL [facility] Monocytes (Bld) [#/Vol] 0.78 10*3/uL NINF [facility] Monocytes/100 WBC (Bld) 11.3 % [facility] Neutrophils (Bld) [#/Vol] 3.94 10*3/uL [facility] Neutrophils/100 WBC (Bld) 57.2 % [facility] Nucleated RBC (Bld) [#/Vol] NINF [facility] Nucleated RBC/100 WBC (Bld) [Ratio] 0.0 % /100 WBC [facility] Platelet mean volume (Bld) [Entitic vol] 12.8 fL High 9.0 - 12.7 fL [facility] Platelets (Bld) [#/Vol] 201 10*3/uL [facility] RBC (Bld) [#/Vol] 3.97 10*6/uL 3.90 - 5.20 m/uL [facility] WBC (Bld) [#/Vol] 6.89 10*3/uL [facility] Urinalysis complete panel (U )on 02-10-2024 Bacteria LM.HPF (Urine sed) [#/Area] Negative Negative /HPF [facility] Bilirubin Ql (U) Negative Negative [facility] Clarity (Unsp spec) Clear [facility] Color (U) Yellow Yellow [facility] Epithelial cells LM.HPF (Urine sed) [#/Area] None Seen /HPF [facility] Glucose Test strip (U) [Mass/Vol] Negative Negative [facility] Hemoglobin Ql (U) Negative Negative [facility] Hyaline casts (Urine sed) [#/Area] 0 /[LPF] 0 /LPF [facility] Interpretation and review of laboratory results Abnormal [facility] Ketones Ql (U) Negative Negative [facility] Leukocyte esterase Test strip Ql (U) 1+ Abnormal Negative [facility] Nitrite Ql (U) Negative Negative [facility] pH (U) 7.0 [pH] NINF - 8.5 [facility] Protein (U) [Mass/Vol] Negative Negative [facility] RBC LM.HPF (Urine sed) [#/Area] 0-2 /HPF 0-2 /HPF [facility] Specific gravity (U) [Rel density] 1.020 1.005 - 1.030 [facility] Urobilinogen Ql (U) 0.2 EU/dL 0.2-1.0 EU/dL [facility] WBC LM.HPF (Urine sed) [#/Area] 0-5 /HPF 0-5 /HPF [facility] This test was develo ped and its performance characteristics determined by [facility]'s [facility] [place] [facility] It has not been cleared or approved by the FDA. -[facility] is regulated under CLIA as qualified to perform high-complexity testing. This test is used for clinical purposes. It should not be regarded as investigational or for research. [facility] Chrissy 01-12-2024 CNPN Telephone (CARMOB) -- CADY BERUMEN ([id number]) 1945 F Date Time Provider Department 01/12/24 SOFIA SWARTZ During your visit today, we recorded the following information about you: Merly Rodriguez 01/12/2024 10:08 AM Signed Pt called to cancel apt she is moving back to [place] Allergies As of Date: 01/12/2024 Noted Allergy Reaction FRAGRANCES 11/28/2014 3 - Cough 12 - Shortness of Breath BENZODIAZEPINES 09/08/2014 1 - Mental Status Change Comments: Pt sees colors and laughing CATS 11/28/2014 9 - Itching 12 - Shortness of Breath Comments: Eventual wheezing DUST MITES 11/28/2014 14 - Other: See Comments Comments: Positive allergy test GRASS POLLEN-DONNA, STANDARD 11/28/2014 9 - Itching Comments: Nasal congestion MOLD 11/28/2014 9 - Itching Comments: Nasal congestion SEASONAL ALLERGIES 11/08/2010 3 - Cough SULFA (SULFONAMIDE ANTIBIOTICS) 06/13/2005 9 - Itching TREES 11/28/2014 9 - Itching Comments: Nasal congestion VALIUM (DIAZEPAM) 09/23/2013 5 - Intolerance Comments: Laughing hysterically, ultra sensitive ZITHROMAX (AZITHROMYCIN) 06/08/2019 14 - Other: See Comments Comments: nausea Date Reviewed: 07/15/2023 Reviewed by: Patrizia Willis APRN.FILE SYSTEM INSTALLER - Fully Assessed Reason for Visit: Appointment [186] Prescriptions as of 01/12/2024 - rosuvastatin (CRESTOR) 5 mg tablet Take 1 tablet by mouth daily at bedtime. - Boswellia cecile extract (BOSWELLIA CECILE XT, BULK,) 70 % powd 1 Each two times a day. - prasterone, DHEA, (DHEA ORAL) Take by mouth. 0.15 mg - Ciclopirox (LOPROX) 8 % solution Apply to affected area daily at bedtime. - metoprolol tartrate, short acting, (LOPRESSOR) 25 mg tablet Take 25 mg by mouth twice daily. Takes as needed for rapid HR - timolol maleate (TIMOPTIC) 0.5 % ophthalmic solution Use 1 Drop in both eyes twice daily. - warfarin (COUMADIN) 5 mg tablet Take 1 tablet by mouth daily except 7.5mg on ( [facility]) - ALPHA LIPOIC ACID ORAL Take by mouth. - Cholecalciferol, Vitamin D3, 50 mcg (2,000 unit) cap Take 2 capsules by mouth once daily. - COQ10, UBIQUINOL, ORAL Take 30 mg by mouth. - latanoprost (XALATAN) 0.005 % ophthalmic solution Use 1 Drop in both eyes daily at bedtime. Meds Comments as of 05/10/2015: Does not take antivert, ibuprofen, aleve. Does take boswelia frankincense and white willow. Problem List As Of Date 01/12/2024 Noted Resolved ALLERGIC RHINITIS NOS [J30.9] 06/19/2004 WOUND (NOT COMPLICATED) - OPEN FINGER(S) [S61.*06/14/2005 10/08/2014 GANGLION JOINT (Mucous cyst left hand 3rd digit*08/07/2005 10/08/2014 GENERAL OSTEOARTHROSIS [M15.9] 11/23/2006 Abdominal pain, unspecified site [R10.9] 11/23/2006 10/08/2014 Lumbago [M54.50] 11/16/2008 10/08/2014 Rectal bleeding [K62.5] 09/06/2010 10/08/2014 Cellulitis [L03.90] 06/24/2013 10/08/2014 Ulcer of ankle (HCC) [L97.309] 06/24/2013 10/08/2014 Venous stasis ulcer of right ankle limited to b*07/18/2013 06/09/2023 Vitamin D deficiency [E55.9] 09/20/2013 Frequency of urination [R35.0] 03/01/2014 10/08/2014 Urgency of urination [R39.15] 03/01/2014 10/08/2014 Nocturia [R35.1] 03/01/2014 Hesitancy of micturition [R39.11] 03/01/2014 Varicose veins of right lower extremity [I83.91]08/25/2014 BPPV (benign paroxysmal positional vertigo) [H8*10/30/2014 Vertigo of central origin [H81.4] 12/11/2014 Peripheral vertigo, unspecified [H81.399] 12/11/2014 Sprain of sacroiliac joint [S33.6XXA] 11/06/2015 Irritable bowel syndrome with both constipation*11/06/2015 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] 08/14/2017 Varicose veins of left lower extremity with dixon*03/03/2018 Asthma [J45.909] 04/20/2018 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*06/16/2018 Paroxysmal atrial tachycardia (HCC) [I47.19] 11/29/2018 Severe episode of recurrent major depressive di*11/29/2018 Paroxysmal atrial fibrillation (HCC) [I48.0] 02/04/2019 Essential hypertension [I10] SOB (shortness of breath) [R06.02] 12/23/2021 Encounter Status:Closed by MERLY RODRIGUEZ on 01/12/24 [facility] Capillary blood internationa l normalized ratio (INR)Ordered By: Bart Rosales on 12-05-2023 INR Coag (BldC) [Relative time] 1.8 [facility] Comment on above: Critical Value > 4.0 Whole blood prothrombin time Ordered By: Bart Rosales on 12-05-2023 PT Coag (Bld) [Time] 19.1 s 11.7-14.9 [facility] Capillary blood internationa l normalized ratio (INR)Ordered By: Bart Rosales on 10-26-2023 INR Coag (BldC) [Relative time] 2.3 [facility] Comment on above: Critical Value > 4.0 Whole blood prothrombin time Ordered By: aBrt Rosales on 10-26-2023 PT Coag (Bld) [Time] 23.9 s 11.7-14.9 [facility] CNPNon 10-07-2023 ENOCN Telephone (AVINASH) -- CADY BERUMEN ([id number]) 1945 F Date Time Provider Department 10/07/23 SOFIA SWARTZ During your visit today, we recorded the following information about you: Merly Rodriguez 10/07/2023 1:12 PM Signed Pt called she has been seeing general cardiology at [facility], pt just moved to [place] and would like to be seen by us. She had a loop place at [facility] , they are currently monitoring pt loop. She would like us to also monitor this. Pt states she lost her recently , as well as her dog and had to sell her home she is experiencing increased stress . Pt is feeling alone, scared, and unsure of how to navigate things currently with all of these changes. Over the last few month pt has been experiencing numbness and tingling in her hands as well as them getting cold. PT has AFIB states last night she had back to back episodes of AFIB which she has never had happen before. Pt almost came to the ER but then episodes subsided. Pt states last night her HR was up to 115 then her HR went back down to 60, pt states when her HR gets up in the 70s or higher she feels like her throat is closing. Pt is going to call [facility] and have them run loop report form last nights episode. States if this happens again she will come to the ER. Sandra Bolton Quinn 10/09/2023 9:55 AM Signed Requested records from [facility]. Sandra Bolton Quinn 10/19/2023 10:50 AM Signed Received a records from [facility]. Sheldon Boltonanthanastasiya Ball 10/19/2023 2:10 PM Signed New Patient Referral Dr. Joann Berumen : 1945 Ph:[phone] Reason- Paroxysmal Afib, HTN, near syncope Records Scanned In Megan Coleman 10/19/2023 2:46 PM Signed LMOM for patient to call schedule Megan Coleman Megan 10/20/2023 9:00 AM Signed Patient wanted to be scheduled with Dr. Mejia, scheduled and confirmed with patient Megan Coleman Allergies As of Date: 10/07/2023 Noted Allergy Reaction FRAGRANCES 11/28/2014 3 - Cough 12 - Shortness of Breath BENZODIAZEPINES 09/08/2014 1 - Mental Status Change Comments: Pt sees colors and laughing CATS 11/28/2014 9 - Itching 12 - Shortness of Breath Comments: Eventual wheezing DUST MITES 11/28/2014 14 - Other: See Comments Comments: Positive allergy test GRASS POLLEN-DONNA, STANDARD 11/28/2014 9 - Itching Comments: Nasal congestion MOLD 11/28/2014 9 - Itching Comments: Nasal congestion SEASONAL ALLERGIES 11/08/2010 3 - Cough SULFA (SULFONAMIDE ANTIBIOTICS) 06/13/2005 9 - Itching TREES 11/28/2014 9 - Itching Comments: Nasal congestion VALIUM (DIAZEPAM) 09/23/2013 5 - Intolerance Comments: Laughing hysterically, ultra sensitive ZITHROMAX (AZITHROMYCIN) 06/08/2019 14 - Other: See Comments Comments: nausea Date Reviewed: 07/15/2023 Reviewed by: Patrizia Willis APRN.FILE SYSTEM INSTALLER - Fully Assessed Reason for Visit: Appointment [186] Prescriptions as of 10/20/2023 - Boswellia cecile extract (BOSWELLIA CECILE XT, BULK,) 70 % powd 1 Each two times a day. - prasterone, DHEA, (DHEA ORAL) Take by mouth. 0.15 mg - Ciclopirox (LOPROX) 8 % solution Apply to affected area daily at bedtime. - metoprolol tartrate, short acting, (LOPRESSOR) 25 mg tablet Take 25 mg by mouth twice daily. Takes as needed for rapid HR - timolol maleate (TIMOPTIC) 0.5 % ophthalmic solution Use 1 Drop in both eyes twice daily. - warfarin (COUMADIN) 5 mg tablet Take 1 tablet by mouth daily except 7.5mg on ( [facility]) - ALPHA LIPOIC ACID ORAL Take by mouth. - Cholecalciferol, Vitamin D3, 50 mcg (2,000 unit) cap Take 2 capsules by mouth once daily. - COQ10, UBIQUINOL, ORAL Take 30 mg by mouth. - latanoprost (XALATAN) 0.005 % ophthalmic solution Use 1 Drop in both eyes daily at bedtime. Meds Comments as of 05/10/2015: Does not take antivert, ibuprofen, aleve. Does take boswelia frankincense and white willow. Problem List As Of Date 10/07/2023 Noted Resolved ALLERGIC RHINITIS NOS [J30.9] 06/19/2004 WOUND (NOT COMPLICATED) - OPEN FINGER(S) [S61.*06/14/2005 10/08/2014 GANGLION JOINT (Mucous cyst left hand 3rd digit*08/07/2005 10/08/2014 GENERAL OSTEOARTHROSIS [M15.9] 11/23/2006 Abdominal pain, unspecified site [R10.9] 11/23/2006 10/08/2014 Lumbago [M54.50] 11/16/2008 10/08/2014 Rectal bleeding [K62.5] 09/06/2010 10/08/2014 Cellulitis [L03.90] 06/24/2013 10/08/2014 Ulcer of ankle (HCC) [L97.309] 06/24/2013 10/08/2014 Venous stasis ulcer of right ankle limited to b*07/18/2013 06/09/2023 Vitamin D deficiency [E55.9] 09/20/2013 Frequency of urination [R35.0] 03/01/2014 10/08/2014 Urgency of urination [R39.15] 03/01/2014 10/08/2014 Nocturia [R35.1] 03/01/2014 Hesitancy of micturition [R39.11] 03/01/2014 Varicose veins of right lower extremity [I83.91]08/25/2014 BPPV (benign paroxysmal posi (more content not included)... Normal [facility] Capillary blood internationa l normalized ratio (INR)Ordered By: Bart Rosales on 09-18-2023 INR Coag (BldC) [Relative time] 2.5 [facility] Comment on above: Critical Value > 4.0 Whole blood prothrombin time Ordered By: Bart Rosales on 09-18-2023 PT Coag (Bld) [Time] 25.2 s 11.7-14.9 [facility] Laboratory - CoagulationOrde red By: Bart Rosales on 07-29-2023 INR Coag (Bld) [Relative time] 2.9 {INR} [facility] Comment on above: Critical Value > 4.0 Whole blood prothrombin time Ordered By: Bart Rosales on 07-29-2023 PT Coag (Bld) [Time] 31.1 s 11.7-14.9 [facility] XR Wrist - right PA and Late ral and Obliqueon 07-19-2023 IMPRESSION: Advanced 1st [facility] joint osteoarthrosis Audit Director: MARIE Transcribe Date/Time: Jul 19 2023 8:46P Dictated by : ABDULKADIR GONZALES MD This examination was interpreted and the report reviewed and electronically signed by: ABDULKADIR GONZALES MD on Jul 19 2023 8:47PM [facility] * * *Final Report* * * DATE OF EXAM: Jul 15 2023 10:57AM WOX 5271 - XR WRIST 3V PA/LAT/OBL RT / PROCEDURE REASON: Right wrist pain * * * * Physician Interpretation * * * * PROCEDURE: Right wrist INDICATION: Right wrist pain .Pt. states Rt ulnar side wrist pain for 1 month. No specific injury. TECHNIQUE: XR WRIST 3V PA/LAT/OBL RT COMPARISON: None FINDINGS: Advanced 1st [facility]MC joint osteoarthrosis. No erosion or focal soft tissue swelling. No fracture or dislocation. DIVISION OF RADIOLOGY Provider, Cc Shawn Raphael - 07/19/2023 * * *Final Report* * * DATE OF EXAM: Jul 15 2023 10:57AM WOX 5271 - XR WRIST 3V PA/LAT/OBL RT / PROCEDURE REASON: Right wrist pain * * * * Physician Interpretation * * * * PROCEDURE: Right wrist INDICATION: Right wrist pain .Pt. states Rt ulnar side wrist pain for 1 month. No specific injury. TECHNIQUE: XR WRIST 3V PA/LAT/OBL RT COMPARISON: None FINDINGS: Advanced 1st [facility]MC joint osteoarthrosis. No erosion or focal soft tissue swelling. No fracture or dislocation. IMPRESSION IMPRESSION: Advanced 1st [facility] joint osteoarthrosis Audit Director: MARIE Transcribe Date/Time: Jul 19 2023 8:46P Dictated by : ABDULKADIR GONZALES MD This examination was interpreted and the report reviewed and electronically signed by: ABDULKADIR GONZALES MD on Jul 19 2023 8:47PM EST [facility] XR Wrist - right PA and Late ral and ObliqueOrdered By: Ccf Provider on 07-19-2023 [facility] XR Wrist - right PA and Late ral and Obliqueon 07-15-2023 Radiology Study observation (narrative) [facility] INR in Blood by Coagulation assayOrdered By: Dominguez Garsia on 05-01-2023 INR Coag (Bld) [Relative time] 2.8 {INR} [facility] Laboratory - CoagulationOrde red By: Dominguez Garsia on 05-01-2023 PT Coag (PPP) [Time] 29.6 s 11.7-14.9 [facility] INR in Blood by Coagulation assayOrdered By: Bart Rosales on 03-30-2023 INR Coag (Bld) [Relative time] 2.5 {INR} [facility] Laboratory - CoagulationOrde red By: Bart Rosales on 03-30-2023 PT Coag (PPP) [Time] 26.9 s 11.7-14.9 [facility] INR in Blood by Coagulation assayOrdered By: Bart Rosales on 03-16-2023 INR Coag (Bld) [Relative time] 1.9 {INR} [facility] Laboratory - CoagulationOrde red By: Bart Rosales on 03-16-2023 PT Coag (PPP) [Time] 21.9 s 11.7-14.9 [facility] INR in Blood by Coagulation assayOrdered By: Bart Rosales on 02-05-2023 INR Coag (Bld) [Relative time] 2.5 {INR} [facility] Laboratory - CoagulationOrde red By: Bart Bobby on 02-05-2023 PT Coag (PPP) [Time] 27.1 s 11.7-14.9 [facility] XR FOOT 3V AP/LAT/OBL RTon 0 02-04-2023 XR FOOT 3V AP/LAT/OBL RT * * *Final Report* * * DATE OF EXAM: Feb 04 2023 11:24AM [facility] 5337 - XR FOOT 3V AP/LAT/OBL RT / PROCEDURE REASON: M79.674-Pain in toe of right foot * * * * Physician Interpretation * * * * HISTORY: EVALUAETE FOR RECURRENT TOE DISLOCATION. Pain in toe of right foot . TECHNIQUE: XR FOOT 3V AP/LAT/OBL RT Laterality: RIGHT Number of different views (projections): 3 COMPARISON: January 21, 2023 RESULT: Special attention to fourth toe. There is a healing fracture with resorption of the distal aspect of the fourth toe. Soft tissue swelling is present. IMPRESSION: Healing fracture of the distal fourth toe. Audit Director: MARIE Transcribe Date/Time: Feb 04 2023 12:24P Dictated by : HOLDEN QUIROGA MD This examination was interpreted and the report reviewed and electronically signed by: HOLDEN QUIROGA MD on Feb 04 2023 12:27PM EST [id number] [facility] XR Foot - right AP and Later al and obliqueon 02-04-2023 IMPRESSION: Healing fracture of the distal fourth toe. Audit Director: PSCBud Transcribe Date/Time: Feb 04 2023 12:24P Dictated by : HOLDEN QUIROGA MD This examination was interpreted and the report reviewed and electronically signed by: HOLDEN QUIROGA MD on Feb 04 2023 12:27PM EST [facility] * * *Final Report* * * DATE OF EXAM: Feb 04 2023 11:24AM [facility] 5337 - XR FOOT 3V AP/LAT/OBL RT / PROCEDURE REASON: M79.674-Pain in toe of right foot * * * * Physician Interpretation * * * * HISTORY: EVALUAETE FOR RECURRENT TOE DISLOCATION. Pain in toe of right foot . TECHNIQUE: XR FOOT 3V AP/LAT/OBL RT Laterality: RIGHT Number of different views (projections): 3 COMPARISON: January 21, 2023 RESULT: Special attention to fourth toe. There is a healing fracture with resorption of the distal aspect of the fourth toe. Soft tissue swelling is present. [facility] Provider, Elsa Escobar [facility] - 02/04/2023 * * *Final Report* * * DATE OF EXAM: Feb 04 2023 11:24AM [facility] 5337 - XR FOOT 3V AP/LAT/OBL RT / PROCEDURE REASON: M79.674-Pain in toe of right foot * * * * Physician Interpretation * * * * HISTORY: EVALUAETE FOR RECURRENT TOE DISLOCATION. Pain in toe of right foot . TECHNIQUE: XR FOOT 3V AP/LAT/OBL RT Laterality: RIGHT Number of different views (projections): 3 COMPARISON: January 21, 2023 RESULT: Special attention to fourth toe. There is a healing fracture with resorption of the distal aspect of the fourth toe. Soft tissue swelling is present. IMPRESSION IMPRESSION: Healing fracture of the distal fourth toe. Audit Director: MARIE Transcribe Date/Time: Feb 04 2023 12:24P Dictated by : HOLDEN QUIROGA MD This examination was interpreted and the report reviewed and electronically signed by: HOLDEN QUIROGA MD on Feb 04 2023 12:27PM EST [facility] Radiology Study observation (narrative) [facility] XR Foot - right AP and Later al and obliqueOrdered By: Ccf Provider on 02-04-2023 [facility] XR Foot - right AP and Later al and obliqueon 01-22-2023 IMPRESSION: Injury t o the fourth toe. Last set of films demonstrates satisfactory alignment. Audit Director: PSCBud Transcribe Date/Time: Jan 22 2023 7:49A Dictated by : HOLDEN QUIROGA MD This examination was interpreted and the report reviewed and electronically signed by: HOLDEN QUIROGA MD on Jan 22 2023 7:54AM EST [facility] * * *Final Report* * * DATE OF EXAM: Jan 21 2023 4:21PM [facility] - XR FOOT 3V AP/LAT/OBL RT / PROCEDURE REASON: multiple diagnoses * * * * Physician Interpretation * * * * HISTORY: PAIN TO FOOT/TOE (accession [id number]), PAIN RIGHT FOOT (accession [id number]). Pain and swelling of toe, right Pain and swelling of toe, right . TECHNIQUE: XR FOOT 3V AP/LAT/OBL RT, XR FOOT 3V AP/LAT/OBL RT Laterality: RIGHT Number of different views (projections): 3 views of the right foot COMPARISON: December 30, 2022 RESULT: Special attention to the fourth toe. There is soft tissue swelling overlying the distal aspect of the toe. Initial examination showed disruption of the alignment of the distal aspect of the toe. Subsequent films demonstrate satisfactory alignment. [facility] * * *Final Report* * * DATE OF EXAM: Jan 21 2023 4:21PM O 5337 - XR FOOT 3V AP/LAT/OBL RT / PROCEDURE REASON: multiple diagnoses * * * * Physician Interpretation * * * * HISTORY: PAIN TO FOOT/TOE (accession [id number]), PAIN RIGHT FOOT (accession [id number]). Pain and swelling of toe, right Pain and swelling of toe, right . TECHNIQUE: XR FOOT 3V AP/LAT/OBL RT, XR FOOT 3V AP/LAT/OBL RT Laterality: RIGHT Number of different views (projections): 3 views of the right foot COMPARISON: December 30, 2022 RESULT: Special attention to the fourth toe. There is soft tissue swelling overlying the distal aspect of the toe. Initial examination showed disruption of the alignment of the distal aspect of the toe. Subsequent films demonstrate satisfactory alignment. IMPRESSION IMPRESSION: Injury to the fourth toe. Last set of films demonstrates satisfactory alignment. Audit Director: PSCB Transcribe Date/Time: Jan 22 2023 7:49A Dictated by : HOLDEN QUIROGA MD This examination was interpreted and the report reviewed and electronically signed by: HOLDEN QUIROGA MD on Jan 22 2023 7:54AM [facility] * * *Final Report* * * DATE OF EXAM: Jan 21 2023 5:19PM O 5337 - XR FOOT 3V AP/LAT/OBL RT / PROCEDURE REASON: [id number] * * * * Physician Interpretation * * * * HISTORY: PAIN TO FOOT/TOE (accession [id number]), PAIN RIGHT FOOT (accession [id number]). Pain and swelling of toe, right Pain and swelling of toe, right . TECHNIQUE: XR FOOT 3V AP/LAT/OBL RT, XR FOOT 3V AP/LAT/OBL RT Laterality: RIGHT Number of different views (projections): 3 views of the right foot COMPARISON: December 30, 2022 RESULT: Special attention to the fourth toe. There is soft tissue swelling overlying the distal aspect of the toe. Initial examination showed disruption of the alignment of the distal aspect of the toe. Subsequent films demonstrate satisfactory alignment. [facility] Provider, Elsa Escobar [facility] - 01/22/2023 * * *Final Report* * * DATE OF EXAM: Jan 21 2023 5:19PM [facility] 5337 - XR FOOT 3V AP/LAT/OBL RT / PROCEDURE REASON: [id number] * * * * Physician Interpretation * * * * HISTORY: PAIN TO FOOT/TOE (accession [id number]), PAIN RIGHT FOOT (accession [id number]). Pain and swelling of toe, right Pain and swelling of toe, right . TECHNIQUE: XR FOOT 3V AP/LAT/OBL RT, XR FOOT 3V AP/LAT/OBL RT Laterality: RIGHT Number of different views (projections): 3 views of the right foot COMPARISON: December 30, 2022 RESULT: Special attention to the fourth toe. There is soft tissue swelling overlying the distal aspect of the toe. Initial examination showed disruption of the alignment of the distal aspect of the toe. Subsequent films demonstrate satisfactory alignment. IMPRESSION IMPRESSION: Injury to the fourth toe. Last set of films demonstrates satisfactory alignment. Audit Director: PSCB Transcribe Date/Time: Jan 22 2023 7:49A Dictated by : HOLDNE QUIROGA MD This examination was interpreted and the report reviewed and electronically signed by: HOLDEN QUIROGA MD on Jan 22 2023 7:54AM EST [facility] XR Foot - right AP and Later al and obliqueOrdered By: Ccf Provider on 01-22-2023 [facility] XR FOOT 3V AP/LAT/OBL RTon 0 01-21-2023 XR FOOT 3V AP/LAT/OBL RT * * *Final Report* * * DATE OF EXAM: Jan 21 2023 5:19PM MDO 5337 - XR FOOT 3V AP/LAT/OBL RT / PROCEDURE REASON: [id number] * * * * Physician Interpretation * * * * HISTORY: PAIN TO FOOT/TOE (accession [id number]), PAIN RIGHT FOOT (accession [id number]). Pain and swelling of toe, right Pain and swelling of toe, right . TECHNIQUE: XR FOOT 3V AP/LAT/OBL RT, XR FOOT 3V AP/LAT/OBL RT Laterality: RIGHT Number of different views (projections): 3 views of the right foot COMPARISON: December 30, 2022 RESULT: Special attention to the fourth toe. There is soft tissue swelling overlying the distal aspect of the toe. Initial examination showed disruption of the alignment of the distal aspect of the toe. Subsequent films demonstrate satisfactory alignment. IMPRESSION: Injury to the fourth toe. Last set of films demonstrates satisfactory alignment. Audit Director: MARIE Transcribe Date/Time: Jan 22 2023 7:49A Dictated by : HOLDEN QUIROGA MD This examination was interpreted and the report reviewed and electronically signed by: HOLDEN QUIROGA MD on Jan 22 2023 7:54AM EST [id number] [facility] XR FOOT 3V AP/LAT/OBL RT * * *Final Report* * * DATE OF EXAM: Jan 21 2023 4:21PM MDO 5337 - XR FOOT 3V AP/LAT/OBL RT / PROCEDURE REASON: multiple diagnoses * * * * Physician Interpretation * * * * HISTORY: PAIN TO FOOT/TOE (accession [id number]), PAIN RIGHT FOOT (accession [id number]). Pain and swelling of toe, right Pain and swelling of toe, right . TECHNIQUE: XR FOOT 3V AP/LAT/OBL RT, XR FOOT 3V AP/LAT/OBL RT Laterality: RIGHT Number of different views (projections): 3 views of the right foot COMPARISON: December 30, 2022 RESULT: Special attention to the fourth toe. There is soft tissue swelling overlying the distal aspect of the toe. Initial examination showed disruption of the alignment of the distal aspect of the toe. Subsequent films demonstrate satisfactory alignment. IMPRESSION: Injury to the fourth toe. Last set of films demonstrates satisfactory alignment. Audit Director: MARIE Transcribe Date/Time: Jan 22 2023 7:49A Dictated by : HOLDEN QUIROGA MD This examination was interpreted and the report reviewed and electronically signed by: HOLDEN QUIROGA MD on Jan 22 2023 7:54AM EST [id number] [facility] XR FOOT GENERAL 3V AP/LAT/OB L RIGHTon 01-21-2023 [facility] XR Foot - right AP and Later al and obliqueon 01-21-2023 Radiology Study observation (narrative) [facility] Radiology Study observation (narrative) [facility] INR in Blood by Coagulation assayOrdered By: Bart Rosales on 01-09-2023 INR Coag (Bld) [Relative time] 1.9 {INR} [facility] Laboratory - CoagulationOrde red By: Bart Rosales on 01-09-2023 PT Coag (PPP) [Time] 22.3 s 11.7-14.9 [facility] XR Foot - right AP and Later al and obliqueon 01-01-2023 IMPRESSION: NO ACUTE BONY ABNORMALITY AND NO CHANGE COMPARED TO THE PREVIOUS EXAM. Audit Director: PSCB Transcribe Date/Time: Jan 01 2023 4:06P Dictated by : GIUSEPPE CHUA MD This examination was interpreted and the report reviewed and electronically signed by: GIUSEPPE CHUA MD on Jan 01 2023 4:10PM [facility] * * *Final Report* * * DATE OF EXAM: Dec 30 2022 4:05PM WOX 5337 - XR FOOT 3V AP/LAT/OBL RT / PROCEDURE REASON: Foot injury, right, initial encounter * * * * Physician Interpretation * * * * HISTORY: 77-YEAR-OLD FEMALE WITH Foot injury, right, initial encounter . Right foot pain at 3rd and 4th toes after dropping a heavy jar on foot recently. Hx of prior traumas to right foot throughout patient's life. TECHNIQUE: XR FOOT 3V AP/LAT/OBL RT Laterality: RIGHT Number of different views (projections): 3 COMPARISON: None RESULT: Right foot: Normal variant fusion of the middle distal phalanx of the fourth and fifth digit. No fracture. No erosions. Mild hallux valgus. DIVISION OF RADIOLOGY [facility], [facility] * * *Final Report* * * DATE OF EXAM: Dec 30 2022 4:05PM WOX 5337 - XR FOOT 3V AP/LAT/OBL RT / PROCEDURE REASON: Foot injury, right, initial encounter * * * * Physician Interpretation * * * * HISTORY: 77-YEAR-OLD FEMALE WITH Foot injury, right, initial encounter . Right foot pain at 3rd and 4th toes after dropping a heavy jar on foot recently. Hx of prior traumas to right foot throughout patient's life. TECHNIQUE: XR FOOT 3V AP/LAT/OBL RT Laterality: RIGHT Number of different views (projections): 3 COMPARISON: None RESULT: Right foot: Normal variant fusion of the middle distal phalanx of the fourth and fifth digit. No fracture. No erosions. Mild hallux valgus. IMPRESSION IMPRESSION: NO ACUTE BONY ABNORMALITY AND NO CHANGE COMPARED TO THE PREVIOUS EXAM. Audit Director: MARIE Transcribe Date/Time: Jan 01 2023 4:06P Dictated by : GIUSEPPE CHUA MD This examination was interpreted and the report reviewed and electronically signed by: GIUSEPPE CHUA MD on Jan 01 2023 4:10PM EST [facility] XR Foot - right AP and Later al and obliqueOrdered By: Ccf Provider on 01-01-2023 [facility] XR FOOT GENERAL 3V AP/LAT/OB L RIGHTon 12-30-2022 [facility] XR Foot - right AP and Later al and obliqueon 12-30-2022 Radiology Study observation (narrative) [facility] INR in Blood by Coagulation assayOrdered By: Bart Rosales on 12-05-2022 INR Coag (Bld) [Relative time] 2.2 {INR} [facility] Laboratory - CoagulationOrde red By: Bart Rosales on 12-05-2022 PT Coag (PPP) [Time] 24.1 s 11.7-14.9 [facility] No Panel Informationon 12-01 INR International Normalized Ratio 3.7 [facility] INR in Blood by Coagulation assayOrdered By: Bart Rosales on 11-05-2022 INR Coag (Bld) [Relative time] 3.1 {INR} [facility] Laboratory - CoagulationOrde red By: Bart Rosales on 11-05-2022 PT Coag (PPP) [Time] 31.7 s 11.7-14.9 [facility] Absolute lymphocyte countOrd ered By: Dr. Fay on 10-13-2022 Lymphocytes Auto (Unsp spec) [#/Vol] 1.52 10*3/uL 0.83-4.51 [facility] Absolute lymphocyte countOrd ered By: Dr. Perry on 10-13-2022 Lymphocytes Auto (Unsp spec) [#/Vol] 1.27 10*3/uL 0.83-4.51 [facility] Basophil percentageOrdered B y: Dr. Fay on 10-13-2022 Basophils/100 WBC (Bld) 1.0 % 0-1 [facility] Chloride [Moles/Vol] 107 mmol/L 98-107 [facility] Eosinophils/100 WBC (Bld) 7.1 % 0-5 [facility] Glucose [Mass/Vol] 107 mg/dL 74-106 [facility] Comment on above: Fasting Glucose resu lt from 100 to 125 mg/dL suggests IMPAIRED HOMEOSTASIS per A.D.A. criteria. Neutrophils (Bld) [#/Vol] 4.3 10*3/uL 2.0-7.7 [facility] Neutrophils/100 WBC (Bld) 59.8 % 47-70 [facility] Potassium [Moles/Vol] 4.0 mmol/L 3.5-5.1 [facility] Sodium [Moles/Vol] 140 mmol/L 136-145 [facility] WBC (Bld) [#/Vol] 7.1 10*3/uL 4.4-11.0 [facility] Basophil percentageOrdered B y: Dr. Perry on 10-13-2022 Basophils/100 WBC (Bld) 1.2 % 0-1 [facility] Chloride [Moles/Vol] 111 mmol/L 98-107 [facility] Eosinophils/100 WBC (Bld) 11.9 % 0-5 [facility] Glucose [Mass/Vol] 97 mg/dL 74-106 [facility] Neutrophils (Bld) [#/Vol] 2.3 10*3/uL 2.0-7.7 [facility] Neutrophils/100 WBC (Bld) 48.3 % 47-70 [facility] Potassium [Moles/Vol] 3.8 mmol/L 3.5-5.1 [facility] Sodium [Moles/Vol] 142 mmol/L 136-145 [facility] WBC (Bld) [#/Vol] 4.9 10*3/uL 4.4-11.0 [facility] Blood erythrocytes count (nu mber/volume)Ordered By: Dr. Fay on 10-13-2022 RBC (Bld) [#/Vol] 3.63 10*6/uL 4.2-5.4 [facility] Blood erythrocytes count (nu mber/volume)Ordered By: Dr. Perry on 10-13-2022 RBC (Bld) [#/Vol] 3.68 10*6/uL 4.2-5.4 [facility] Blood hemoglobin measurement (mass/volume)Ordered By: Dr. Fay on 10-13-2022 Hemoglobin (Bld) [Mass/Vol] 11.5 g/dL 12.0-15.0 [facility] Blood hemoglobin measurement (mass/volume)Ordered By: Dr. Perry on 10-13-2022 Hemoglobin (Bld) [Mass/Vol] 11.7 g/dL 12.0-15.0 [facility] Blood lymphocytes/100 leukoc ytesOrdered By: Dr. Fay on 10-13-2022 Lymphocytes/100 WBC (Bld) 21.3 % - [facility] Blood lymphocytes/100 leukoc ytesOrdered By: Dr. Perry on 10-13-2022 Lymphocytes/100 WBC (Bld) 26.1 % -41 [facility] Blood monocytes/100 leukocyt esOrdered By: Dr. Fay on 10-13-2022 Monocytes/100 WBC (Bld) 10.5 % 0-10 [facility] Blood monocytes/100 leukocyt esOrdered By: Dr. Perry on 10-13-2022 Monocytes/100 WBC (Bld) 12.1 % 0-10 [facility] Blood platelet mean volumeOr dered By: Dr. Fay on 10-13-2022 Platelet mean volume (Bld) [Entitic vol] 12.8 fL 6.2-12.0 [facility] Blood platelet mean volumeOr dered By: Dr. Perry on 10-13-2022 Platelet mean volume (Bld) [Entitic vol] 11.9 fL 6.2-12.0 [facility] Determination of erythrocyte mean corpuscular volume (MCV)Ordered By: Dr. Fay on 10-13-2022 MCV (RBC) [Entitic vol] 100.6 fL 81-99 [facility] Determination of erythrocyte mean corpuscular volume (MCV)Ordered By: Dr. Perry on 10-13-2022 MCV (RBC) [Entitic vol] 99.2 fL 81-99 [facility] Hematocrit Auto (Bld) [Volum e fraction]Ordered By: Dr. Fay on 10-13-2022 Hematocrit (Bld) [Volume fraction] 36.5 % 37-47 [facility] Hematocrit Auto (Bld) [Volum e fraction]Ordered By: Dr. Perry on 10-13-2022 Hematocrit (Bld) [Volume fraction] 36.5 % 37-47 [facility] INR in Blood by Coagulation assayOrdered By: Dr. Fay on 10-13-2022 INR Coag (Bld) [Relative time] 3.0 {INR} [facility] INR in Blood by Coagulation assayOrdered By: Dr. Perry on 10-13-2022 INR Coag (Bld) [Relative time] 3.3 {INR} [facility] Laboratory - Chemistry and C hemistry - challengeOrdered By: Dr. Fay on 10-13-2022 CO2 [Moles/Vol] 24.0 mmol/L 21.0-32.0 [facility] Urea nitrogen/Creatinine [Mass ratio] 30.0 mg/mg 06-12 [facility] Laboratory - Chemistry and C hemistry - challengeOrdered By: Dr. Perry on 10-13-2022 CO2 [Moles/Vol] 26.0 mmol/L 21.0-32.0 [facility] Free T4 [Mass/Vol] 1.00 ng/dL 0.76-1.46 [facility] Urea nitrogen/Creatinine [Mass ratio] 30.2 mg/mg 06-12 [facility] Laboratory - CoagulationOrde red By: Dr. Fay on 10-13-2022 PT Coag (PPP) [Time] 30.7 s 11.7-14.9 [facility] Laboratory - CoagulationOrde red By: Dr. Perry on 10-13-2022 PT Coag (PPP) [Time] 33.5 s 11.7-14.9 [facility] Laboratory - Hematology and Cell countsOrdered By: Dr. Fay on 10-13-2022 Erythrocyte distribution width (RBC) [Entitic vol] 51.0 fL 35.1-43.9 [facility] Erythrocyte distribution width (RBC) [Ratio] 13.7 % 11.6-14.6 [facility] Immature granulocytes/100 WBC (Bld) 0.300 % 0.0-0.9 [facility] Comment on above: IG% - Immature Granu locytes (promyelocytes, myelocytes and metamyelocytes) > 1% indicates that a LEFT SHIFT is Present. MCH (RBC) [Entitic mass] 31.7 pg 27.0-32.0 [facility] Nucleated RBC/100 WBC (Bld) [Ratio] 0 % 0-5 [facility] Laboratory - Hematology and Cell countsOrdered By: Dr. Perry on 10-13-2022 Erythrocyte distribution width (RBC) [Entitic vol] 50.1 fL 35.1-43.9 [facility] Erythrocyte distribution width (RBC) [Ratio] 13.7 % 11.6-14.6 [facility] [facility]ocytes/100 WBC (Bld) 0.400 % 0.0-0.9 [facility] Comment on above: IG% - Immature Granu locytes (promyelocytes, myelocytes and metamyelocytes) > 1% indicates that a LEFT SHIFT is Present. MCH (RBC) [Entitic mass] 31.8 pg 27.0-32.0 [facility] Nucleated RBC/100 WBC (Bld) [Ratio] 0 % 0-5 [facility] MCHC Auto (RBC) [Mass/Vol]Or dered By: Dr. Fay on 10-13-2022 MCHC (RBC) [Mass/Vol] 31.5 g/dL 32-36 [facility] MCHC Auto (RBC) [Mass/Vol]Or dered By: Dr. Perry on 10-13-2022 MCHC (RBC) [Mass/Vol] 32.1 g/dL 32-36 [facility] No Panel InformationOrdered By: Dr. Fay on 10-13-2022 Estimated Creatinine Clearance Calc 43.07 ml/min [facility] Estimated GFR (MDRD) Amer 94 mL/min >60 [facility] Comment on above: GFR Calc Estimated GFR (MDRD) Non-Af Amer 78 mL/min >60 [facility] Comment on above: Non- GFR Calc Troponin I High Sensitivity 6 pg/mL 3.0-54.0 [facility] Comment on above: Please Note: New Bita t Units and Gender Specific Reference Ranges. For more information see Policy Stat Procedure [place] High Sensitivity Troponin (TNIH) and attachments. No Panel InformationOrdered By: Dr. Perry on 10-13-2022 Estimated Creatinine Clearance Calc 43.07 ml/min [facility] Estimated GFR (MDRD) Amer 111 mL/min >60 [facility] Comment on above: GFR Calc Estimated GFR (MDRD) Non-Af Amer 92 mL/min >60 [facility] Comment on above: Non- GFR Calc Free Triiodothyronine (T3) pg/dL 1.9 pg/mL 2.18-3.98 [facility] Troponin I High Sensitivity 6 pg/mL 3.0-54.0 [facility] Comment on above: Please Note: New Bita t Units and Gender Specific Reference Ranges. For more information see Policy Stat Procedure [place] High Sensitivity Troponin (TNIH) and attachments. Platelets bldOrdered By: Dr. Fay on 10-13-2022 Platelets (Bld) [#/Vol] 171 10*3/uL 150-450 [facility] Platelets bldOrdered By: Dr. Perry on 10-13-2022 Platelets (Bld) [#/Vol] 165 10*3/uL 150-450 [facility] Serum or plasma calcium ayanna urement (mass/volume)Ordered By: Dr. Fay on 10-13-2022 Calcium [Mass/Vol] 9.2 mg/dL 8.5-10.1 [facility] Serum or plasma calcium ayanna urement (mass/volume)Ordered By: Dr. Perry on 10-13-2022 Calcium [Mass/Vol] 8.6 mg/dL 8.5-10.1 [facility] Serum or plasma creatinine m easurement (mass/volume)Ordered By: Dr. Fay on 10-13-2022 Creatinine [Mass/Vol] 0.77 mg/dL 0.55-1.02 [facility] Comment on above: The validity of the calculated GFR & GFRAA in patients over 70 years has not been determined. Clinical correlation is essential. Serum or plasma creatinine m easurement (mass/volume)Ordered By: Dr. Perry on 10-13-2022 Creatinine [Mass/Vol] 0.66 mg/dL 0.55-1.02 [facility] Comment on above: The validity of the calculated GFR & GFRAA in patients over 70 years has not been determined. Clinical correlation is essential. Serum or plasma urea nitroge n measurement (mass/volume)Ordered By: Dr. Fay on 10-13-2022 Urea nitrogen [Mass/Vol] 23 mg/dL 03-10 [facility] Serum or plasma urea nitroge n measurement (mass/volume)Ordered By: Dr. Perry on 10-13-2022 Urea nitrogen [Mass/Vol] 20 mg/dL 03-10 [facility] Thin prep Papanicolaou smear with manual screeningOrdered By: Dr. Fay on 10-13-2022 Thin prep Papanicolaou smear with manual screening 9 - [facility] Thin prep Papanicolaou smear with manual screeningOrdered By: Dr. Perry on 10-13-2022 Thin prep Papanicolaou smear with manual screening 5 - [facility] Absolute lymphocyte countOrd ered By: Dr. Akins on 10-12-2022 Lymphocytes Auto (Unsp spec) [#/Vol] 1.58 10*3/uL 0.83-4.51 [facility] Basophil percentageOrdered B y: Dr. Akins on 10-12-2022 Basophils/100 WBC (Bld) 1.2 % 0-1 [facility] Chloride [Moles/Vol] 111 mmol/L 98-107 [facility] Eosinophils/100 WBC (Bld) 15.4 % 0-5 [facility] Glucose [Mass/Vol] 106 mg/dL 74-106 [facility] Comment on above: Fasting Glucose resu lt from 100 to 125 mg/dL suggests IMPAIRED HOMEOSTASIS per A.D.A. criteria. Neutrophils (Bld) [#/Vol] 2.5 10*3/uL 2.0-7.7 [facility] Neutrophils/100 WBC (Bld) 44.1 % 47-70 [facility] Potassium [Moles/Vol] 4.8 mmol/L 3.5-5.1 [facility] Comment on above: Moderate Hemolysis, Result may be falsely increased. Sodium [Moles/Vol] 139 mmol/L 136-145 [facility] WBC (Bld) [#/Vol] 5.7 10*3/uL 4.4-11.0 [facility] Blood erythrocytes count (nu mber/volume)Ordered By: Dr. Akins on 10-12-2022 RBC (Bld) [#/Vol] 4.02 10*6/uL 4.2-5.4 [facility] Blood hemoglobin measurement (mass/volume)Ordered By: Dr. Akins on 10-12-2022 Hemoglobin (Bld) [Mass/Vol] 12.4 g/dL 12.0-15.0 [facility] Blood lymphocytes/100 leukoc ytesOrdered By: Dr. Akins on 10-12-2022 Lymphocytes/100 WBC (Bld) 27.6 % 19-41 [facility] Blood monocytes/100 leukocyt esOrdered By: Dr. Akins on 10-12-2022 Monocytes/100 WBC (Bld) 11.4 % 0-10 [facility] Blood platelet mean volumeOr dered By: Dr. Akins on 10-12-2022 Platelet mean volume (Bld) [Entitic vol] 13.0 fL 6.2-12.0 [facility] Determination of erythrocyte mean corpuscular volume (MCV)Ordered By: Dr. Akins on 10-12-2022 MCV (RBC) [Entitic vol] 99.0 fL 81-99 [facility] Hematocrit Auto (Bld) [Volum e fraction]Ordered By: Dr. Akins on 10-12-2022 Hematocrit (Bld) [Volume fraction] 39.8 % 37-47 [facility] INR in Blood by Coagulation assayOrdered By: Dr. Akins on 10-12-2022 INR Coag (Bld) [Relative time] 2.8 {INR} [facility] Laboratory - Chemistry and C hemistry - challengeOrdered By: Dr. Akins on 10-12-2022 CO2 [Moles/Vol] 24.0 mmol/L 21.0-32.0 [facility] Urea nitrogen/Creatinine [Mass ratio] 30.2 mg/mg 10-20 [facility] Laboratory - CoagulationOrde red By: Dr. Akins on 10-12-2022 PT Coag (PPP) [Time] 29.3 s 11.7-14.9 [facility] Laboratory - Hematology and Cell countsOrdered By: Dr. Akins on 10-12-2022 Erythrocyte distribution width (RBC) [Entitic vol] 50.2 fL 35.1-43.9 [facility] Erythrocyte distribution width (RBC) [Ratio] 13.8 % 11.6-14.6 [facility] Immature granulocytes/100 WBC (Bld) 0.300 % 0.0-0.9 [facility] Comment on above: IG% - Immature Granu locytes (promyelocytes, myelocytes and metamyelocytes) > 1% indicates that a LEFT SHIFT is Present. MCH (RBC) [Entitic mass] 30.8 pg 27.0-32.0 [facility] Nucleated RBC/100 WBC (Bld) [Ratio] 0 % 0-5 [facility] MCHC Auto (RBC) [Mass/Vol]Or dered By: Dr. Akins on 10-12-2022 MCHC (RBC) [Mass/Vol] 31.2 g/dL 32-36 [facility] No Panel InformationOrdered By: Dr. Akins on 10-12-2022 Troponin I High Sensitivity 31 pg/mL 3.0-54.0 [facility] Comment on above: Please Note: New [place] t Units and Gender Specific Reference Ranges. For more information see Policy Stat Procedure [place] High Sensitivity Troponin (TNIH) and attachments. Estimated Creatinine Clearance Calc 53.83 ml/min [facility] Estimated GFR (MDRD) Amer 90 mL/min >60 [facility] Comment on above: GFR Calc Estimated GFR (MDRD) Non-Af Amer 75 mL/min >60 [facility] Comment on above: Non- GFR Calc Thyroid Stimulating Hormone (TSH) 7.29 uIU/mL 0.358-3.74 [facility] Platelets bldOrdered By: Dr. Akins on 10-12-2022 Platelets (Bld) [#/Vol] 166 10*3/uL 150-450 [facility] Serum or plasma calcium ayanna urement (mass/volume)Ordered By: Dr. Akins on 10-12-2022 Calcium [Mass/Vol] 9.4 mg/dL 8.5-10.1 [facility] Serum or plasma creatinine m easurement (mass/volume)Ordered By: Dr. Akins on 10-12-2022 Creatinine [Mass/Vol] 0.80 mg/dL 0.55-1.02 [facility] Comment on above: The validity of the calculated GFR & GFRAA in patients over 70 years has not been determined. Clinical correlation is essential. Serum or plasma urea nitroge n measurement (mass/volume)Ordered By: Dr. Akins on 10-12-2022 Urea nitrogen [Mass/Vol] 24 mg/dL 7-18 [facility] Thin prep Papanicolaou smear with manual screeningOrdered By: Dr. Akins on 10-12-2022 Thin prep Papanicolaou smear with manual screening 4 5-15 [facility] INR in Blood by Coagulation assayOrdered By: Bart Rosales on 10-07-2022 INR Coag (Bld) [Relative time] 3.0 {INR} [facility] Laboratory - CoagulationOrde red By: Bart Rosales on 10-07-2022 PT Coag (PPP) [Time] 31.1 s 11.7-14.9 [facility] Absolute lymphocyte countOrd ered By: Dr. Donis on 09-08-2022 Lymphocytes Auto (Unsp spec) [#/Vol] 0.73 10*3/uL 0.83-4.51 [facility] Basophil percentageOrdered B y: Dr. Donis on 09-08-2022 Basophils/100 WBC (Bld) 0.7 % 0-1 [facility] Chloride [Moles/Vol] 101 mmol/L 98-107 [facility] Eosinophils/100 WBC (Bld) 0.3 % 0-5 [facility] Glucose [Mass/Vol] 111 mg/dL 74-106 [facility] Comment on above: Fasting Glucose resu lt from 100 to 125 mg/dL suggests IMPAIRED HOMEOSTASIS per A.D.A. criteria. Neutrophils (Bld) [#/Vol] 1.7 10*3/uL 2.0-7.7 [facility] Neutrophils/100 WBC (Bld) 57.2 % 47-70 [facility] Potassium [Moles/Vol] 3.4 mmol/L 3.5-5.1 [facility] Sodium [Moles/Vol] 132 mmol/L 136-145 [facility] WBC (Bld) [#/Vol] 2.9 10*3/uL 4.4-11.0 [facility] Blood erythrocytes count (nu mber/volume)Ordered By: Dr. Donis on 09-08-2022 RBC (Bld) [#/Vol] 3.94 10*6/uL 4.2-5.4 [facility] Blood hemoglobin measurement (mass/volume)Ordered By: Dr. Donis on 09-08-2022 Hemoglobin (Bld) [Mass/Vol] 12.3 g/dL 12.0-15.0 [facility] Blood lymphocytes/100 leukoc ytesOrdered By: Dr. Donis on 09-08-2022 Lymphocytes/100 WBC (Bld) 24.8 % 19-41 [facility] Blood monocytes/100 leukocyt esOrdered By: Dr. Donis on 09-08-2022 Monocytes/100 WBC (Bld) 16.3 % 0-10 [facility] Blood platelet mean volumeOr dered By: Dr. Donis on 09-08-2022 Platelet mean volume (Bld) [Entitic vol] 13.0 fL 6.2-12.0 [facility] Determination of erythrocyte mean corpuscular volume (MCV)Ordered By: Dr. Donis on 09-08-2022 MCV (RBC) [Entitic vol] 96.7 fL 81-99 [facility] Hematocrit Auto (Bld) [Volum e fraction]Ordered By: Dr. Donis on 09-08-2022 Hematocrit (Bld) [Volume fraction] 38.1 % 37-47 [facility] INR in Blood by Coagulation assayOrdered By: Dr. Donis on 09-08-2022 INR Coag (Bld) [Relative time] 1.6 {INR} [facility] Laboratory - Chemistry and C hemistry - challengeOrdered By: Dr. Donis on 09-08-2022 CO2 [Moles/Vol] 22.0 mmol/L 21.0-32.0 [facility] Urea nitrogen/Creatinine [Mass ratio] 14.0 mg/mg 10-20 [facility] Laboratory - CoagulationOrde red By: Dr. Donis on 09-08-2022 PT Coag (PPP) [Time] 18.4 s 11.7-14.9 [facility] Laboratory - Hematology and Cell countsOrdered By: Dr. Donis on 09-08-2022 Erythrocyte distribution width (RBC) [Entitic vol] 47.9 fL 35.1-43.9 [facility] Erythrocyte distribution width (RBC) [Ratio] 13.2 % 11.6-14.6 [facility] Immature granulocytes/100 WBC (Bld) 0.700 % 0.0-0.9 [facility] Comment on above: IG% - Immature Granu locytes (promyelocytes, myelocytes and metamyelocytes) > 1% indicates that a LEFT SHIFT is Present. MCH (RBC) [Entitic mass] 31.2 pg 27.0-32.0 [facility] Nucleated RBC/100 WBC (Bld) [Ratio] 0 % 0-5 [facility] MCHC Auto (RBC) [Mass/Vol]Or dered By: Dr. Donis on 09-08-2022 MCHC (RBC) [Mass/Vol] 32.3 g/dL 32-36 [facility] No Panel InformationOrdered By: Dr. Donis on 09-08-2022 Estimated Creatinine Clearance Calc 43.07 ml/min [facility] Estimated GFR (MDRD) Amer 91 mL/min >60 [facility] Comment on above: GFR Calc Estimated GFR (MDRD) Non-Af Amer 75 mL/min >60 [facility] Comment on above: Non- GFR Calc Troponin I High Sensitivity 8 pg/mL 3.0-54.0 [facility] Comment on above: Please Note: New Bita t Units and Gender Specific Reference Ranges. For more information see Policy Stat Procedure [place] High Sensitivity Troponin (TNIH) and attachments. Platelets bldOrdered By: Dr. Donis on 09-08-2022 Platelets (Bld) [#/Vol] 145 10*3/uL 150-450 [facility] Serum or plasma calcium ayanna urement (mass/volume)Ordered By: Dr. Donis on 09-08-2022 Calcium [Mass/Vol] 8.4 mg/dL 8.5-10.1 [facility] Serum or plasma creatinine m easurement (mass/volume)Ordered By: Dr. Donis on 09-08-2022 Creatinine [Mass/Vol] 0.79 mg/dL 0.55-1.02 [facility] Comment on above: The validity of the calculated GFR & GFRAA in patients over 70 years has not been determined. Clinical correlation is essential. Serum or plasma urea nitroge n measurement (mass/volume)Ordered By: Dr. Donis on 09-08-2022 Urea nitrogen [Mass/Vol] 11 mg/dL 7-18 [facility] Thin prep Papanicolaou smear with manual screeningOrdered By: Dr. Donis on 09-08-2022 Thin prep Papanicolaou smear with manual screening 9 5-15 [facility] No Panel Informationon 09-07 POC SARS CoV-2 Antigen Positive [facility] INR in Blood by Coagulation assayOrdered By: Bart Rosales on 08-20-2022 INR Coag (Bld) [Relative time] 2.6 {INR} [facility] Laboratory - CoagulationOrde red By: Bart Rosales on 08-20-2022 PT Coag (PPP) [Time] 27.4 s 11.7-14.9 [facility] INR in Blood by Coagulation assayOrdered By: Bart Rosales on 07-23-2022 INR Coag (Bld) [Relative time] 2.5 {INR} [facility] Laboratory - CoagulationOrde red By: Bart Rosales on 07-23-2022 PT Coag (PPP) [Time] 26.8 s 11.7-14.9 [facility] INR in Blood by Coagulation assayOrdered By: Bart Rosales on 06-04-2022 INR Coag (Bld) [Relative time] 2.2 {INR} [facility] Laboratory - CoagulationOrde red By: Bart Rosales on 06-04-2022 PT Coag (PPP) [Time] 24.4 s 11.7-14.9 [facility] INR in Blood by Coagulation assayon 05-02-2022 INR Coag (Bld) [Relative time] 2.2 {INR} [facility] Work Phone: [phone] Laboratory - Coagulationon 0 05-02-2022 PT Coag (PPP) [Time] 24.0 s 11.7-14.9 [facility] Work Phone: INR in Blood by Coagulation assayon 04-02-2022 INR Coag (Bld) [Relative time] 2.1 {INR} [facility] Work Phone: Laboratory - Coagulationon 0 04-02-2022 PT Coag (PPP) [Time] 22.8 s 11.7-14.9 [facility] Work Phone: INR in Blood by Coagulation assayon 02-27-2022 INR Coag (Bld) [Relative time] 2.6 {INR} [facility] Work Phone: Laboratory - Coagulationon 0 02-27-2022 PT Coag (PPP) [Time] 27.6 s 11.7-14.9 [facility] Work Phone: [phone] XR Knee - bilateral 4 Viewso n 01-23-2022 IMPRESSION: Mild degenerative change, right greater than left. Audit Director: [facility] Transcribe Date/Time: Jan 23 2022 1:19P Dictated by : JANESSA BENTLEY MD This examination was interpreted and the report reviewed and electronically signed by: JANESSA BENTLEY MD on Jan 23 2022 1:23PM EST [email or web address] E_DIVISION OF RADIOLOGY * * *Final Report* * * DATE OF EXAM: Jan 23 2022 11:35AM WOX 5618 - XR KNEE 4V AP/PA/LAT/[facility] / PROCEDURE REASON: multiple diagnoses * * * * Physician Interpretation * * * * EXAMINATION: XR KNEE 4V AP/PA/LAT/[facility] HISTORY: Fell 3 weeks ago and has pain in left anterior knee. Acute pain of both knees. TECHNIQUE: XR KNEE 4V AP/PA/LAT/[facility] Laterality: BILATERAL Number of different views (projections): 4 each M: XB_1 COMPARISON: Comparison is made to prior knee study dated August 2021 RESULT: Standing frontal radiographs of the bilateral knees with bilateral PA flexion views, sunrise views and bilateral lateral views show no acute osseous or articular process. Mild narrowing of the medial tibiofemoral joint spaces are present, right greater than left. Joint spaces are otherwise preserved. There is no significant joint fluid. [email or web address] E_DIVISION OF RADIOLOGY Provider, [facility] - 01/23/2022 * * *Final Report* * * DATE OF EXAM: Jan 23 2022 11:35AM WOX 5618 - XR KNEE 4V AP/PA/LAT/[facility] / PROCEDURE REASON: multiple diagnoses * * * * Physician Interpretation * * * * EXAMINATION: XR KNEE 4V AP/PA/LAT/[facility] HISTORY: Fell 3 weeks ago and has pain in left anterior knee. Acute pain of both knees. TECHNIQUE: XR KNEE 4V AP/PA/LAT/[facility] Laterality: BILATERAL Number of different views (projections): 4 each M: XB_1 COMPARISON: Comparison is made to prior knee study dated August 2021 RESULT: Standing frontal radiographs of the bilateral knees with bilateral PA flexion views, sunrise views and bilateral lateral views show no acute osseous or articular process. Mild narrowing of the medial tibiofemoral joint spaces are present, right greater than left. Joint spaces are otherwise preserved. There is no significant joint fluid. IMPRESSION IMPRESSION: Mild degenerative change, right greater than left. [facility] Transcribe Date/Time: Jan 23 2022 1:19P Dictated by : JANESSA BENTLEY MD This examination was interpreted and the report reviewed and electronically signed by: JANESSA BENTLEY MD on Jan 23 2022 1:23PM [facility] Radiology Study observation (narrative) [facility] XR Knee - bilateral 4 ViewsO rdered By: [facility] Provider on 01-23-2022 [facility] INR in Blood by Coagulation assayon 01-22-2022 INR Coag (Bld) [Relative time] 2.5 {INR} [facility] Work Phone: Laboratory - Coagulationon 0 01-22-2022 PT Coag (PPP) [Time] 26.2 s 11.7-14.9 [facility] Work Phone: Absolute lymphocyte counton 01-05-2022 Lymphocytes Auto (Unsp spec) [#/Vol] 1.74 10*3/uL 0.83-4.51 [facility] Work Phone: Basophil percentageon 2021 Basophils/100 WBC (Bld) 1.0 % 0-1 [facility] Work Phone: Chloride [Moles/Vol] 110 mmol/L 98-107 [facility] Work Phone: Eosinophils/100 WBC (Bld) 13.4 % 0-5 [facility] Work Phone: Glucose [Mass/Vol] 97 mg/dL 74-106 [facility] Work Phone: Neutrophils (Bld) [#/Vol] 2.5 10*3/uL 2.0-7.7 [facility] Work Phone: Neutrophils/100 WBC (Bld) 43.4 % 47-70 [facility] Work Phone: Potassium [Moles/Vol] 4.1 mmol/L 3.5-5.1 [facility] Work Phone: Sodium [Moles/Vol] 142 mmol/L 136-145 [facility] Work Phone: WBC (Bld) [#/Vol] 5.8 10*3/uL 4.4-11.0 [facility] Work Phone: Blood erythrocytes count (nu mber/volume)on 01-05-2022 RBC (Bld) [#/Vol] 4.06 10*6/uL 4.2-5.4 [facility] Work Phone: Blood hemoglobin measurement (mass/volume)on 01-05-2022 Hemoglobin (Bld) [Mass/Vol] 12.8 g/dL 12.0-15.0 [facility] Work Phone: Blood lymphocytes/100 leukoc yteson 01-05-2022 Lymphocytes/100 WBC (Bld) 29.8 % 19-41 [facility] Work Phone: Blood monocytes/100 leukocyt eson 01-05-2022 Monocytes/100 WBC (Bld) 12.2 % 0-10 [facility] Work Phone: Blood platelet mean volumeon 01-05-2022 Platelet mean volume (Bld) [Entitic vol] 12.2 fL 6.2-12.0 [facility] Work Phone: Determination of erythrocyte mean corpuscular volume (MCV)on 01-05-2022 MCV (RBC) [Entitic vol] 100.5 fL 81-99 [facility] Work Phone: Hematocrit Auto (Bld) [Volum e fraction]on 01-05-2022 Hematocrit (Bld) [Volume fraction] 40.8 % 37-47 [facility] Work Phone: INR in Blood by Coagulation assayon 01-05-2022 INR Coag (Bld) [Relative time] 1.3 {INR} [facility] Work Phone: Laboratory - Chemistry and C hemistry - challengeon 01-05-2022 CO2 [Moles/Vol] 30.0 mmol/L 21.0-32.0 [facility] Work Phone: Urea nitrogen/Creatinine [Mass ratio] 25.1 mg/mg 10-20 [facility] Work Phone: Laboratory - Coagulationon 0 01-05-2022 PT Coag (PPP) [Time] 16.0 s 11.7-14.9 [facility] Work Phone: Laboratory - Hematology and Cell countson 01-05-2022 Erythrocyte distribution width (RBC) [Entitic vol] 49.3 fL 35.1-43.9 [facility] Work Phone: Erythrocyte distribution width (RBC) [Ratio] 13.2 % 11.6-14.6 [facility] Work Phone: Immature granulocytes/100 WBC (Bld) 0.200 % 0.0-0.9 [facility] Work Phone: Comment on above: IG% - Immature Granu locytes (promyelocytes, myelocytes and metamyelocytes) > 1% indicates that a LEFT SHIFT is Present. MCH (RBC) [Entitic mass] 31.5 pg 27.0-32.0 [facility] Work Phone: Nucleated RBC/100 WBC (Bld) [Ratio] 0 % 0-5 [facility] Work Phone: MCHC Auto (RBC) [Mass/Vol]on 01-05-2022 MCHC (RBC) [Mass/Vol] 31.4 g/dL 32-36 [facility] Work Phone: No Panel Informationon 01-05 Estimated Creatinine Clearance Calc 51.27 ml/min [facility] Work Phone: Estimated GFR (MDRD) Amer 85 mL/min >60 [facility] Work Phone: Comment on above: GFR Calc Estimated GFR (MDRD) Non-Af Amer 71 mL/min >60 [facility] Work Phone: Comment on above: Non- GFR Calc Troponin I High Sensitivity 5 pg/mL 3.0-54.0 [facility] Work Phone: Comment on above: Please Note: New Bita t Units and Gender Specific Reference Ranges. For more information see Policy Stat Procedure [place] High Sensitivity Troponin (TNIH) and attachments. Platelets bldon 01-05-2022 Platelets (Bld) [#/Vol] 188 10*3/uL 150-450 [facility] Work Phone: Serum or plasma calcium ayanna urement (mass/volume)on 01-05-2022 Calcium [Mass/Vol] 9.2 mg/dL 8.5-10.1 [facility] Work Phone: Serum or plasma creatinine m easurement (mass/volume)on 01-05-2022 Creatinine [Mass/Vol] 0.84 mg/dL 0.55-1.02 [facility] Work Phone: Comment on above: The validity of the calculated GFR & GFRAA in patients over 70 years has not been determined. Clinical correlation is essential. Serum or plasma urea nitroge n measurement (mass/volume)on 01-05-2022 Urea nitrogen [Mass/Vol] 21 mg/dL - [facility] Work Phone: Thin prep Papanicolaou smear with manual screeningon 01-05-2022 Thin prep Papanicolaou smear with manual screening 2 01-05 [facility] Work Phone: INR in Blood by Coagulation assayon 01-02-2022 INR Coag (Bld) [Relative time] 2.3 {INR} [facility] Work Phone: Laboratory - Coagulationon 0 01-02-2022 PT Coag (PPP) [Time] 24.6 s 11.7-14.9 [facility] Work Phone: INR in Blood by Coagulation assayon 12-02-2021 INR Coag (Bld) [Relative time] 2.1 {INR} [facility] Work Phone: Laboratory - Coagulationon 0 12-02-2021 PT Coag (PPP) [Time] 23.2 s 11.7-14.9 [facility] Work Phone: Laboratory - Coagulationon 0 11-19-2021 INR Coag (Bld) [Relative time] 1.9 {INR} [facility] Work Phone: Comment on above: Critical Value > 4.0 Whole blood prothrombin time on 11-19-2021 PT Coag (Bld) [Time] 22.4 s 11.7-14.9 [facility] Work Phone: Laboratory - Coagulationon 0 11-12-2021 PT Coag (PPP) [Time] 17.6 s 11.7-14.9 [facility] Work Phone: Qualitative QuantiFERON-TB g old in tube teston 10-08-2021 M. tuberculosis tuberculin stim IFN-g Ql (Bld) 0.07 IU/mL [facility] Work Phone: Thin prep Papanicolaou smear with manual screeningon 10-08-2021 Thin prep Papanicolaou smear with manual screening Comment [facility] Work Phone: Comment on above: The QuantiFERON-TB G old Plus result is determined bysubtracting the Nil value from either TB antigen (Ag) tube.The mitogen tube serves as a control for the test. Thin prep Papanicolaou smear with manual screening 0.10 IU/mL [facility] Work Phone: Thin prep Papanicolaou smear with manual screening 0.08 IU/mL [facility] Work Phone: Thin prep Papanicolaou smear with manual screening > 10.00 IU/mL [facility] Work Phone: Thin prep Papanicolaou smear with manual screening Negative Negative [facility] Work Phone: Comment on above: The specimen receive d for QuantiFERON testing was incubatedby the ordering institution. Specific procedures outlinedin our Directory of Services and in the package insert forthe QuantiFERON Gold (In Tube) test must be followed toenable for proper stimulation of cells for the productionof interferon gamma. Chemiluminescence immunoassaymethodologyPerformed at: [facility] [id number] Director: Braeden Mathis PhD, Phone: [phone] INR in Blood by Coagulation assayon 09-25-2021 INR Coag (Bld) [Relative time] 2.2 {INR} [facility] Work Phone: Laboratory - Coagulationon 0 09-25-2021 PT Coag (PPP) [Time] 23.9 s 11.7-14.9 venessa [facility] Work Phone: XR Knee - right 4 Viewson IMPRESSION: Degenerative changes as discussed Audit Director: MARIE Transcribe Date/Time: Sep 06 2021 12:52P Dictated by : BACILIO SCHNEIDER DO This examination was interpreted and the report reviewed and electronically signed by: BACILIO SCHNEIDER DO on Sep 06 2021 12:53PM [facility] * * *Final Report* * * DATE OF EXAM: Sep 06 2021 12:37PM WOX 5203 - XR KNEE 4V AP/PA BOTH+LAT/ISAI RT / PROCEDURE REASON: multiple diagnoses * * * * Physician Interpretation * * * * XR KNEE 4V AP/PA BOTH+LAT/ISAI RT EXAM DATE/TIME: 09/06/2021 12:37 PM HISTORY: 75 years old Clinical information: Unstable knee, right Vestibular neuronitis of right ear right anterior and medial knee pain, knee locking up and gives out TECHNIQUE: Images: XR KNEE 4V AP/PA BOTH+LAT/ISAI RT Comparison: None. RESULT: Findings: Right :No fractures or dislocations are seen. Marked narrowing of the medial compartment and mild narrowing of the lateral compartment Left :No fractures or dislocations are seen. Moderate narrowing of the patellofemoral joint. Moderate narrowing of the medial compartment. DIVISION OF RADIOLOGY Provider, [facility] - 09/06/2021 * * *Final Report* * * DATE OF EXAM: Sep 06 2021 12:37PM WOX 5203 - XR KNEE 4V AP/PA BOTH+LAT/ISAI RT / PROCEDURE REASON: multiple diagnoses * * * * Physician Interpretation * * * * XR KNEE 4V AP/PA BOTH+LAT/ISAI RT EXAM DATE/TIME: 09/06/2021 12:37 PM HISTORY: 75 years old Clinical information: Unstable knee, right Vestibular neuronitis of right ear right anterior and medial knee pain, knee locking up and gives out TECHNIQUE: Images: XR KNEE 4V AP/PA BOTH+LAT/ISAI RT Comparison: None. RESULT: Findings: Right :No fractures or dislocations are seen. Marked narrowing of the medial compartment and mild narrowing of the lateral compartment Left :No fractures or dislocations are seen. Moderate narrowing of the patellofemoral joint. Moderate narrowing of the medial compartment. IMPRESSION IMPRESSION: Degenerative changes as discussed Audit Director: MARIE Transcribe Date/Time: Sep 06 2021 12:52P Dictated by : BACILIO SCHNEIDER DO This examination was interpreted and the report reviewed and electronically signed by: BACILIO SCHNEIDER DO on Sep 06 2021 12:53PM [facility] Radiology Study observation (narrative) [facility] XR Knee - right 4 ViewsOrder ed By: [facility] Provider on 09-06-2021 [facility] INR in Blood by Coagulation assayon 08-28-2021 INR Coag (Bld) [Relative time] 2.9 {INR} [facility] Work Phone: Laboratory - Coagulationon 0 08-28-2021 PT Coag (PPP) [Time] 29.2 s 11.7-14.9 [facility] Work Phone: INR in Blood by Coagulation assayon 08-21-2021 INR Coag (Bld) [Relative time] 1.9 {INR} [facility] Work Phone: Laboratory - Coagulationon 1 PT Coag (PPP) [Time] 21.4 s 11.7-14.9 [facility] Work Phone: Chrissy 04-26-2020 CNPN Telephone (FELISHAWheresTheBusMELISSA ) -- CADY BERUMEN ( ) 1945 F Date Time Provider Department 04/26/20 ALEC ARTHUR During your visit today, we recorded the following information about you: Holden Lacey, RN, RN 04/26/2020 9:32 AM Signed Patient states ulcer that was examined on 04/10/2020 Ulcer on right ankle has worsened Painful, shooting up leg, described as sharp and burning, rating as 7 or 8 / 10 on palpation Hole in center, size of dime, raw Around skin is very red, puffy, taught Denies any red streaks Antibiotic ointment applied last night (bacitracin with pain relief), which improved appearance overnight Oozes clear fluid Looking for advice on treatment of ulcer. Holden Lacey, RN, RN 04/26/2020 12:33 PM Signed Spoke to patient and technical internship provider message: continue compression, antibiotic ointment, and see provider on Thursday. Patient transferred to appointment center. Holden Lacey RN, RN 04/26/2020 1:03 PM Signed Patient left message on nurse triage VM stating that she has an appointment with PCP Dr. Carter and she will have him look at the ulcer on leg and will follow up with Dr. Arthur if he recommends it. Allergies As of Date: 04/26/2020 Noted Allergy Reaction FRAGRANCES 11/28/2014 3 - Cough 12 - Shortness of Breath BENZODIAZEPINES 09/08/2014 1 - Mental Status Change Comments: Pt sees colors and laughing CATS 11/28/2014 9 - Itching 12 - Shortness of Breath Comments: Eventual wheezing DUST MITES 11/28/2014 14 - Other: See Comments Comments: Positive allergy test GRASS POLLEN-DONNA, STANDARD 11/28/2014 9 - Itching Comments: Nasal congestion MOLD 11/28/2014 9 - Itching Comments: Nasal congestion SEASONAL ALLERGIES 11/08/2010 3 - Cough SULFA (SULFONAMIDE ANTIBIOTICS) 06/13/2005 9 - Itching TREES 11/28/2014 9 - Itching Comments: Nasal congestion VALIUM (DIAZEPAM) 09/23/2013 5 - Intolerance Comments: Laughing hysterically, ultra sensitive ZITHROMAX (AZITHROMYCIN) 06/08/2019 14 - Other: See Comments Comments: nausea Date Reviewed: 04/19/2020 Reviewed by: Comfort Escalante RN - Fully Assessed Reason for Visit: ulcer update [Other] Prescriptions as of 04/26/2020 Sig: CYCLOBENZAPRINE 5 MG TABLET Take 1 tablet by mouth three * PREDNISONE 10 MG TABLET Take by mouth 4 tabs daily x * Patient not taking: Reported on 04/19/2020 METOPROLOL SUCCINATE ER 25 MG* Take 0.5 tablets by mouth onc* Patient not taking: Reported on 10/04/2019 FLUOXETINE 20 MG CAPSULE Take 1 capsule by mouth once * Patient not taking: Reported on 12/24/2018 COMPOUNDED PRESCRIPTION once daily. Shaan MAGNESIUM 250 MG TABLET Take 250 mg by mouth twice da* VITAMIN B-12 ORAL Take by mouth once daily. OTC NUTRITIONAL SUPPLEMENT NAC for congestion daily COQ10 (UBIQUINOL) ORAL Take by mouth. LATANOPROST 0.005 % EYE DROPS Use 1 Drop in both eyes daily* CHOLECALCIFEROL (VITAMIN D3) * Take 1 tablet by mouth once d* Problem List As Of Date 04/26/2020 Noted Resolved ALLERGIC RHINITIS NOS [J30.9] 06/19/2004 WOUND (NOT COMPLICATED) - OPEN FINGER(S) [S61.*06/14/2005 10/08/2014 GANGLION JOINT (Mucous cyst left hand 3rd digit*08/07/2005 10/08/2014 GENERAL OSTEOARTHROSIS [M15.9] 11/23/2006 Abdominal pain, unspecified site [R10.9] 11/23/2006 10/08/2014 Lumbago [M54.5] 11/16/2008 10/08/2014 Rectal bleeding [K62.5] 09/06/2010 10/08/2014 Cellulitis [L03.90] 06/24/2013 10/08/2014 Ulcer of ankle (HCC) [L97.309] 06/24/2013 10/08/2014 Venous stasis ulcer of ankle [I83.003, L97.309] 07/18/2013 10/08/2014 Vitamin D deficiency [E55.9] 09/20/2013 Frequency of urination [R35.0] 03/01/2014 10/08/2014 Urgency of urination [R39.15] 03/01/2014 10/08/2014 Nocturia [R35.1] 03/01/2014 Hesitancy of micturition [R39.11] 03/01/2014 Varicose veins of left lower extremity [I83.92] 08/25/2014 BPPV (benign paroxysmal positional vertigo) [H8*10/30/2014 Vertigo of central origin [H81.4] 12/11/2014 Peripheral vertigo, unspecified [H81.399] 12/11/2014 Sprain of sacroiliac joint [S33.6XXA] 11/06/2015 Irritable bowel syndrome with both constipation*11/06/2015 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] 08/14/2017 Varicose veins of left lower extremity with dixon*03/03/2018 More... Asthma [J45.909] 04/20/2018 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*06/16/2018 Atrial tachycardia (HCC) [I47.1] 11/29/2018 More... Severe episode of recurrent major depressive di*11/29/2018 Paroxysmal atrial fibrillation (HCC) [I48.0] 02/04/2019 02/04/2019 Encounter Status:Closed by MIMI ROLON MA on 04/26/20 Normal [facility] Office Visiton 05-22-2017 Documentation of current medications (procedure) Done Invalid Interpretation Code [facility] Work Phone: Protein mass conc Done Invalid Interpretation Code [facility] Work Phone: Tobacco smoking status NHIS Never Invalid Interpretation Code [facility] Work Phone: Tobacco smoking status WYIS Never smoker Invalid Interpretation Code [facility] Work Phone: Tobacco use [facility] Never smoker Invalid Interpretation Code [facility] Work Phone: Lab Report: Vitamin D,25 Hyd roxyon 05-15-2017 vitamin D 25-hydroxy, serum 31.6 ng/mL Invalid Interpretation Code [facility] Work Phone: Replaced Document: Vitamin D ,25 Hydroxyon 05-15-2017 Vitamin D 25-OH 31.6 ng/mL Invalid Interpretation Code [facility] Work Phone: Lab Report: Basic Metabolic Profile (BMP)on 05-14-2017 Anion gap 7 mmol/L Invalid Interpretation Code 01-05 [facility] Work Phone: Anion gap molar conc 7 mmol/L 01-05 [facility] Work Phone: [phone] BUN/Creatinine Ratio 24.3 RATIO High 10-20 [facility] Work Phone: [phone] Calcium 8.7 mg/dL Invalid Interpretation Code 8.5-10.1 [facility] Work Phone: [phone] Chloride 107 mmol/L Invalid Interpretation Code 98-107 [facility] Work Phone: [phone] CO2 27.0 mmol/L Invalid Interpretation Code 21.0-32.0 [facility] Work Phone: [phone] Creatinine 0.70 mg/dL Invalid Interpretation Code 0.55-1.02 [facility] Work Phone: [phone] eGFR (non-black) 87 mL/min/{1.73_m2} Invalid Interpretation Code >60 [facility] Work Phone: [phone] eGFR (non-black) 106 mL/min/{1.73_m2} Invalid Interpretation Code >60 [facility] Work Phone: [phone] Glucose 89 mg/dL Invalid Interpretation Code 70-110 [facility] Work Phone: [phone] Potassium 4.2 mmol/L Invalid Interpretation Code 3.5-5.1 [facility] Work Phone: [phone] Sodium 141 mmol/L Invalid Interpretation Code 136-145 [facility] Work Phone: [phone] Urea nitrogen 17 mg/dL Invalid Interpretation Code 7-18 [facility] Work Phone: [phone] Lab Report: CBC-Complete Blo od Cnt No Diffon 05-14-2017 Erythrocyte distribution width Ratio (RBC) 13.9 % 11.6-14.6 [facility] Work Phone: [phone] Erythrocyte distribution width Ratio (RBC) 49.3 fL High 35.1-43.9 [facility] Work Phone: [phone] Erythrocytes (RBC) 4.06 10*6/uL Low 4.2-5.4 [facility] Work Phone: [phone] Hematocrit (HCT) 40.0 % Invalid Interpretation Code 37-47 [facility] Work Phone: [phone] Hematocrit Volume Fraction (Bld) 40.0 % 37-47 [facility] Work Phone: [phone] Hemoglobin (HGB) 12.8 g/dL Invalid Interpretation Code 12.0-15.0 [facility] Work Phone: [phone] MCH 31.5 pg Invalid Interpretation Code 27.0-32.0 [facility] Work Phone: [phone] MCH Entitic mass (RBC) 31.5 pg 27.0-32.0 [facility] Work Phone: [phone] MCHC 32.0 G/GL Invalid Interpretation Code 32-36 [facility] Work Phone: [phone] MCHC mass conc (RBC) 32.0 G/GL 32-36 [facility] Work Phone: [phone] MCV 98.5 fL Invalid Interpretation Code 81-99 [facility] Work Phone: [phone] MCV Entitic volume (RBC) 98.5 fL 81-99 [facility] Work Phone: [phone] Platelet mean volume Entitic volume (Bld) 13.4 fL High 6.2-12.0 [facility] Work Phone: [phone] Platelets 208 10*3/mm3 Invalid Interpretation Code 150-450 [facility] Work Phone: [phone] Platelets #/vol (Bld) 208 10*3/mm3 150-450 [facility] Work Phone: [phone] PMV by Sarbjit 13.4 fL High 6.2-12.0 [facility] Work Phone: [phone] RBC #/vol (Bld) 4.06 10*6/uL Low 4.2-5.4 [facility] Work Phone: [phone] RDW-CA 13.9 % Invalid Interpretation Code 11.6-14.6 [facility] Work Phone: [phone] red blood cell distribution width, size density 49.3 fL High 35.1-43.9 [facility] Work Phone: [phone] WBC #/vol (Bld) 5.4 10*3/uL 4.4-11.0 [facility] Work Phone: [phone] WBC (Leukocytes) 5.4 10*3/uL Invalid Interpretation Code 4.4-11.0 [facility] Work Phone: [phone] Office Visit: New Pt. Visito n 05-14-2017 Documentation of current medications (procedure) Done Invalid Interpretation Code [facility] Work Phone: [phone] Fall risk assessment Yes Invalid Interpretation Code [facility] Work Phone: [phone] Tobacco smoking status NHIS Never Invalid Interpretation Code [facility] Work Phone: [phone] Tobacco use [facility] Never smoker Invalid Interpretation Code [facility] Work Phone: [phone] Replaced Document: Basic Met abolic Profile (BMP)on 05-14-2017 Anion gap 4 molar conc 7 Invalid Interpretation Code 5-15 [facility] Work Phone: [phone] CO2 ppres (BldV) 27.0 mmol/L Invalid Interpretation Code 21.0-32.0 [facility] Work Phone: [phone] EST GFR - AA 106 mL/min Invalid Interpretation Code >60 [facility] Work Phone: [phone] Glucose mass conc 89 mg/dL Invalid Interpretation Code 70-110 [facility] Work Phone: [phone] Replaced Document: CBC-Compl ete Blood Cnt No Diffon 05-14-2017 Erythrocyte distribution width Auto Ratio (RBC) 49.3 fL High 35.1-43.9 [facility] Work Phone: [phone] RDW SD 49.3 fL High 35.1-43.9 [facility] Work Phone: [phone] Office Visiton 12-04-2016 Documentation of current medications (procedure) Done Invalid Interpretation Code [facility] Work Phone: [phone] Tobacco smoking status NHIS Never Invalid Interpretation Code [facility] Work Phone: [phone] Tobacco use [facility] Never smoker Invalid Interpretation Code [facility] Work Phone: [phone] Nerve Block: lower extremity [facility] Vital Signs Date Time Vital Sign Value Performing Clinician Facility 03-15-2025 18:33-0400 Body temperature 97.9 [degF] Bart Rosales RADIAL DRILL OPERATOR [employer] Work Phone: [facility] 03-15-2025 18:33-0400 Diastolic blood pressure 89 mm[Hg] Bart Rosales RADIAL DRILL OPERATOR [employer] Work Phone: [facility] 03-15-2025 18:33-0400 Heart rate 65 /min Bart Rosales RADIAL DRILL OPERATOR [employer] Work Phone: [facility] 03-15-2025 18:33-0400 Respiratory rate 19 /min Bart Rosales RADIAL DRILL OPERATOR [employer] Work Phone: [facility] 03-15-2025 18:33-0400 SaO2% (BldA) [Mass fraction] 100 % Bart Rosales RADIAL DRILL OPERATOR [employer] Work Phone: [facility] 03-15-2025 18:33-0400 Systolic blood pressure 134 mm[Hg] Bart Rosales RADIAL DRILL OPERATOR [employer] Work Phone: [facility] 03-15-2025 14:39-0400 Body height 165.1 cm Bart Rosales RADIAL DRILL OPERATOR [employer] Work Phone: [facility] 01-26-2025 11:29-0400 Body mass index (BMI) [Ratio] 28.84 kg/m2 José Miguel Saldaña FAST FOOD SERVER.FILE SYSTEM INSTALLER Work Phone: [facility] 01-26-2025 11:29-0400 Body weight 76.2 kg José Miguel Saldaña FAST FOOD SERVER.FILE SYSTEM INSTALLER Work Phone: [facility] 01-26-2025 11:29-0400 Diastolic blood pressure 68 mm[Hg] José Miguel Saldaña FAST FOOD SERVER.FILE SYSTEM INSTALLER Work Phone: [facility] 01-26-2025 11:29-0400 Heart rate 57 /min José Miguel Older FAST FOOD SERVER.FILE SYSTEM INSTALLER Work Phone: [facility] 01-26-2025 11:29-0400 SaO2% (BldA) [Mass fraction] 95 % José Miguel Older FAST FOOD SERVER.FILE SYSTEM INSTALLER Work Phone: [facility] 01-26-2025 11:29-0400 Systolic blood pressure 112 mm[Hg] José Miguel Older FAST FOOD SERVER.FILE SYSTEM INSTALLER Work Phone: [facility] 01-21-2025 20:33-0400 Body mass index (BMI) [Ratio] 24.5 kg/m2 Bart SALDANA Work Phone: [facility] 01-17-2025 14:47-0400 Diastolic blood pressure 55 mm[Hg] Alec Arthur DO Work Phone: [facility] 01-17-2025 14:47-0400 Heart rate 56 /min Alec Arthur DO Work Phone: [facility] 01-17-2025 14:47-0400 SaO2% (BldA) [Mass fraction] 96 % Alec Arthur DO Work Phone: [facility] 01-17-2025 14:47-0400 Systolic blood pressure 126 mm[Hg] Alec Arthur DO Work Phone: [facility] 12-30-2024 13:45-0400 Body height 162.6 cm Maria De Jesus Desouza FAST FOOD SERVER.FILE SYSTEM INSTALLER Work Phone: [facility] 12-30-2024 13:45-0400 Body mass index (BMI) [Ratio] 28.67 kg/m2 Maria De Jesus Lyly FAST FOOD SERVER.FILE SYSTEM INSTALLER Work Phone: [facility] 12-30-2024 13:45-0400 Body weight 75.75 kg Maria De Jesuszaire Haskinst FAST FOOD SERVER.FILE SYSTEM INSTALLER Work Phone: [facility] 12-30-2024 13:45-0400 Diastolic blood pressure 57 mm[Hg] Maria De Jesus Lyly FAST FOOD SERVER.FILE SYSTEM INSTALLER Work Phone: [facility] 12-30-2024 13:45-0400 Heart rate 51 /min Maria De Jesus Desouza FAST FOOD SERVER.FILE SYSTEM INSTALLER Work Phone: [facility] 12-30-2024 13:45-0400 Systolic blood pressure 141 mm[Hg] Maria De Jesus Desouza FAST FOOD SERVER.FILE SYSTEM INSTALLER Work Phone: [facility] 11-28-2024 17:00-0400 Diastolic blood pressure 73 mm[Hg] Bart Rosales RADIAL DRILL OPERATOR FOR [employer] Work Phone: [facility] 11-28-2024 17:00-0400 Heart rate 61 /min Bart Rosales RADIAL DRILL OPERATOR FOR [employer] Work Phone: [facility] 11-28-2024 17:00-0400 Respiratory rate 18 /min Bart Rosales RADIAL DRILL OPERATOR FOR [employer] Work Phone: [facility] 11-28-2024 17:00-0400 SaO2% (BldA) [Mass fraction] 97 % Bart Rosales RADIAL DRILL OPERATOR [employer] Work Phone: [facility] 11-28-2024 17:00-0400 Systolic blood pressure 161 mm[Hg] Bart Rosales RADIAL DRILL OPERATOR FOR [employer] Work Phone: [facility] 11-28-2024 14:30-0400 Body mass index (BMI) [Ratio] 28 kg/m2 Bart Rosales RADIAL DRILL OPERATOR [employer] Work Phone: [facility] 11-28-2024 14:30-0400 Body temperature 97.8 [degF] Bart Rosales RADIAL DRILL OPERATOR [employer] Work Phone: [facility] 11-28-2024 14:30-0400 Body weight 76.3 kg Bart Rosales RADIAL DRILL OPERATOR [employer] Work Phone: [facility] 11-28-2024 14:25-0400 Body height 165.1 cm Bart Rosales RADIAL DRILL OPERATOR [employer] Work Phone: [facility] 11-21-2024 21:42-0400 Body mass index (BMI) [Ratio] 24.5 kg/m2 Dr. Moon Teixeira MD Work Phone: [facility] 10-26-2024 13:40-0500 Body height 163 cm Moon Teixeira MD Work Phone: [facility] 10-26-2024 13:40-0500 Body mass index (BMI) [Ratio] 28.58 kg/m2 Moon Teixeira MD Work Phone: [facility] 10-26-2024 13:40-0500 Body weight 75.93 kg Moon Teixeira MD Work Phone: [facility] 10-26-2024 13:40-0500 Diastolic blood pressure 71 mm[Hg] Moon Teixeira MD Work Phone: [facility] 10-26-2024 13:40-0500 Heart rate 69 /min Moon Teixeira MD Work Phone: [facility] 10-26-2024 13:40-0500 SaO2% (BldA) [Mass fraction] 96 % Moon Teixeira MD Work Phone: [facility] [facility]24 13:40-0500 Systolic blood pressure 106 mm[Hg] Moon Teixeira MD Work Phone: [facility] 10-21-2024 11:18-0500 Body mass index (BMI) [Ratio] 27.12 kg/m2 José Miguel Older FAST FOOD SERVER.FILE SYSTEM INSTALLER Work Phone: [facility] 10-21-2024 11:18-0500 Body weight 73.94 kg José Miguel Older FAST FOOD SERVER.FILE SYSTEM INSTALLER Work Phone: [facility] 10-21-2024 11:18-0500 Diastolic blood pressure 80 mm[Hg] José Miguel Older FAST FOOD SERVER.FILE SYSTEM INSTALLER Work Phone: [facility] 10-21-2024 11:18-0500 Heart rate 60 /min José Miguel Older FAST FOOD SERVER.FILE SYSTEM INSTALLER Work Phone: [facility] 10-21-2024 11:18-0500 Respiratory rate 16 /min José Miguel Older FAST FOOD SERVER.FILE SYSTEM INSTALLER Work Phone: [facility] 10-21-2024 11:18-0500 Systolic blood pressure 128 mm[Hg] José Miguel Saldaña APRN.FILE SYSTEM INSTALLER Work Phone: [facility] 10-13-2024 11:31-0500 Body height 165.1 cm Bart Rosales RADIAL DRILL OPERATOR FOR PLASTIC-C Work Phone: [facility] 10-13-2024 11:31-0500 Body mass index (BMI) [Ratio] 27.6 kg/m2 Bart Roof RADIAL DRILL OPERATOR FOR PLASTIC-C Work Phone: [facility] 10-13-2024 11:31-0500 Body weight 75.29 kg Bart Roof RADIAL DRILL OPERATOR FOR P[employer]IC-C Work Phone: [facility] 10-13-2024 11:31-0500 Diastolic blood pressure 82 mm[Hg] Bart Roof RADIAL DRILL OPERATOR FOR P[employer]IC-C Work Phone: [facility] 10-13-2024 11:31-0500 Heart rate 54 /min Bart Roof RADIAL DRILL OPERATOR FOR P[employer]-C Work Phone: [facility] 10-13-2024 11:31-0500 Respiratory rate 20 /min Bart Roof RADIAL DRILL OPERATOR FOR P[employer]IC-C Work Phone: [facility] 10-13-2024 11:31-0500 SaO2% (BldA) [Mass fraction] 94 % Bart Roof RADIAL DRILL OPERATOR FOR P[employer]IC-C Work Phone: [facility] 10-13-2024 11:31-0500 Systolic blood pressure 120 mm[Hg] Bart Roof RADIAL DRILL OPERATOR FOR P[employer]IC-C Work Phone: [facility] 09-26-2024 15:00-0500 Diastolic blood pressure 94 mm[Hg] Bart Roof RADIAL DRILL OPERATOR FOR P[employer]IC-C Work Phone: [facility] 09-26-2024 15:00-0500 Heart rate 65 /min Bart Roof RADIAL DRILL OPERATOR FOR P[employer]-C Work Phone: [facility] 09-26-2024 15:00-0500 Respiratory rate 13 /min Bart Roof RADIAL DRILL OPERATOR FOR P[employer]IC-C Work Phone: [facility] 09-26-2024 15:00-0500 SaO2% (BldA) [Mass fraction] 97 % Bart Roof RADIAL DRILL OPERATOR FOR P[employer]-C Work Phone: [facility] 09-26-2024 15:00-0500 Systolic blood pressure 154 mm[Hg] Bart Rosales RADIAL DRILL OPERATOR FOR P[employer]IC-C Work Phone: [facility] 09-26-2024 11:40-0500 Body mass index (BMI) [Ratio] 29 kg/m2 Bart Rosales RADIAL DRILL OPERATOR FOR P[employer]IC-C Work Phone: [facility] 09-26-2024 11:40-0500 Body temperature 97.9 [degF] Bart Rosales RADIAL DRILL OPERATOR FOR P[employer]IC-C Work Phone: [facility] 09-26-2024 11:40-0500 Body weight 79.1 kg Bart Rosales RADIAL DRILL OPERATOR FOR P[employer]IC-C Work Phone: [facility] 09-23-2024 21:04-0500 Body mass index (BMI) [Ratio] 24.5 kg/m2 Bart Rosales RADIAL DRILL OPERATOR FOR P[employer]-C Work Phone: [facility] 08-24-2024 03:45-0500 Body mass index (BMI) [Ratio] 24.5 kg/m2 Bart Rosales RADIAL DRILL OPERATOR FOR P[employer]-C Work Phone: [facility] 07-26-2024 09:09-0500 Body height 165.1 cm Yaa Bogner PA-C Work Phone: [facility] 07-26-2024 09:09-0500 Body mass index (BMI) [Ratio] 27.11 kg/m2 Yaa Bogner PA-C Work Phone: [facility] 07-26-2024 09:09-0500 Body weight 73.9 kg Yaa Bogner PA-C Work Phone: [facility] 07-26-2024 09:09-0500 Diastolic blood pressure 72 mm[Hg] Yaa Bogner PA-C Work Phone: [facility] 07-26-2024 09:09-0500 Heart rate 67 /min Yaa Bogner PA-C Work Phone: [facility] 07-26-2024 09:09-0500 Respiratory rate 12 /min Yaa Bolanosner PA-C Work Phone: [facility] 07-26-2024 09:09-0500 SaO2% (BldA) [Mass fraction] 99 % Yaa Bogner PA-C Work Phone: [facility] 07-26-2024 09:09-0500 Systolic blood pressure 124 mm[Hg] Yaa Bolanosner PA-C Work Phone: [facility] 06-27-2024 10:12-0500 Body height 165.1 cm Moon Teixeira MD Work Phone: [facility] 06-27-2024 10:12-0500 Body mass index (BMI) [Ratio] 26.79 kg/m2 Moon Teixeira MD Work Phone: [facility] 06-27-2024 10:12-0500 Body weight 73.03 kg Moon Teixeira MD Work Phone: [facility] 06-27-2024 10:12-0500 Diastolic blood pressure 72 mm[Hg] Moon Teixeira MD Work Phone: [facility] 06-27-2024 10:12-0500 Heart rate 53 /min Moon eTixeira MD Work Phone: [facility] 06-27-2024 10:12-0500 Respiratory rate 12 /min Moon Teixeira MD Work Phone: [facility] 06-27-2024 10:12-0500 SaO2% (BldA) [Mass fraction] 94 % Moon Teixeira MD Work Phone: [facility] 06-27-2024 10:12-0500 Systolic blood pressure 130 mm[Hg] Moon Teixeira MD Work Phone: [facility] 05-06-2024 13:53-0400 Body mass index (BMI) [Ratio] 26.56 kg/m2 Moon Teixeira MD Work Phone: [facility] 05-06-2024 13:53-0400 Body weight 72.4 kg Moon Teixeira MD Work Phone: [facility] 05-06-2024 13:53-0400 Diastolic blood pressure 76 mm[Hg] Moon Teixeira MD Work Phone: [facility] 05-06-2024 13:53-0400 Heart rate 63 /min Moon Teixeira MD Work Phone: [facility] 05-06-2024 13:53-0400 SaO2% (BldA) [Mass fraction] 98 % Moon Teixeira MD Work Phone: [facility] 05-06-2024 13:53-0400 Systolic blood pressure 110 mm[Hg] Moon Teixeira MD Work Phone: [facility] 04-24-2024 01:59-0400 Body mass index (BMI) [Ratio] 24.5 kg/m2 [facility] Work Phone: [facility] 04-22-2024 16:06-0400 Body mass index (BMI) [Ratio] 26.63 kg/m2 Moon Teixeira MD Work Phone: [facility] 04-22-2024 16:06-0400 Body weight 72.58 kg Moon Teixeira MD Work Phone: [facility] 04-22-2024 16:06-0400 Diastolic blood pressure 78 mm[Hg] Moon Teixeira MD Work Phone: [facility] 04-22-2024 16:06-0400 Heart rate 71 /min Moon Teixeira MD Work Phone: [facility] 04-22-2024 16:06-0400 SaO2% (BldA) [Mass fraction] 97 % Moon Teixeira MD Work Phone: [facility] 04-22-2024 16:06-0400 Systolic blood pressure 112 mm[Hg] Moon Teixeira MD Work Phone: [facility] 04-05-2024 09:20-0400 Diastolic blood pressure 64 mm[Hg] Moon Teixeira MD Work Phone: [facility] 04-05-2024 09:20-0400 Heart rate 62 /min Moon Teixeira MD Work Phone: [facility] 04-05-2024 09:20-0400 Respiratory rate 16 /min Moon Teixeira MD Work Phone: [facility] 04-05-2024 09:20-0400 Systolic blood pressure 100 mm[Hg] Moon Teixeira MD Work Phone: [facility] 02-10-2024 13:26-0400 Body mass index (BMI) [Ratio] 25.96 kg/m2 Nirali Almanza PA-C Work Phone: [facility] 02-10-2024 13:26-0400 Body temperature 97.2 [degF] Nirali Almanza PA-C Work Phone: [facility] 02-10-2024 13:26-0400 Body weight 70.76 kg Nirali Almanza PA-C Work Phone: [facility] 02-10-2024 13:26-0400 Diastolic blood pressure 80 mm[Hg] Nirali Almanza PA-C Work Phone: [facility] 02-10-2024 13:26-0400 Heart rate 56 /min Nirali Almanza PA-C Work Phone: [facility] 02-10-2024 13:26-0400 Respiratory rate 16 /min Nirali Almanza PA-C Work Phone: [facility] 02-10-2024 13:26-0400 Systolic blood pressure 118 mm[Hg] Nirali Almanza PA-C Work Phone: [facility] 11-21-2023 21:26-0400 Body mass index (BMI) [Ratio] 24.5 kg/m2 PA ZAIRE Reneeon PA Work Phone: [facility] 11-11-2023 09:28-0400 Body height 165.1 cm PA ZAIRE Dale PA Work Phone: [facility] 11-11-2023 09:28-0400 Body mass index (BMI) [Ratio] 26.2 kg/m2 PA NA Dale PA Work Phone: [facility] 11-11-2023 09:28-0400 Body weight 71.66 kg PA NA Dale PA Work Phone: [facility] 11-11-2023 09:28-0400 Diastolic blood pressure 84 mm[Hg] PA NA Dale PA Work Phone: [facility] 11-11-2023 09:28-0400 Heart rate 56 /min PA NA Dale PA Work Phone: [facility] 11-11-2023 09:28-0400 Respiratory rate 18 /min PA NA Dale PA Work Phone: [facility] 11-11-2023 09:28-0400 SaO2% (BldA) [Mass fraction] 99 % PA NA Dale PA Work Phone: [facility] 11-11-2023 09:28-0400 Systolic blood pressure 128 mm[Hg] PA NA Dale PA Work Phone: [facility] 09-23-2023 21:33-0500 Body mass index (BMI) [Ratio] 24.5 kg/m2 PA NA Dale PA Work Phone: [facility] 08-23-2023 20:47-0500 Body mass index (BMI) [Ratio] 24.5 kg/m2 PA NA Dale PA Work Phone: [facility] 08-09-2023 15:03-0500 Body mass index (BMI) [Ratio] 26.4 kg/m2 [facility] 08-09-2023 15:03-0500 Body weight 72.07 kg [facility] 08-09-2023 15:00-0500 Body height 165.1 cm [facility] 08-09-2023 15:00-0500 Body temperature 96.3 [degF] [facility] 08-09-2023 15:00-0500 Diastolic blood pressure 84 mm[Hg] [facility] 08-09-2023 15:00-0500 Heart rate 68 /min [facility] 08-09-2023 15:00-0500 Respiratory rate 18 /min [facility] 08-09-2023 15:00-0500 SaO2% (BldA) [Mass fraction] 99 % [facility] 08-09-2023 15:00-0500 Systolic blood pressure 153 mm[Hg] [facility] 07-24-2023 02:58-0500 Body mass index (BMI) [Ratio] 24.5 kg/m2 [facility] 07-15-2023 09:58-0500 Diastolic blood pressure 88 mm[Hg] Patrizia Alba FAST FOOD SERVER.FILE SYSTEM INSTALLER Work Phone: [facility] 07-15-2023 09:58-0500 Systolic blood pressure 140 mm[Hg] Patrizia Alba FAST FOOD SERVER.FILE SYSTEM INSTALLER Work Phone: [facility] 07-15-2023 09:56-0500 Body weight 69.85 kg Patrizia Alba FAST FOOD SERVER.FILE SYSTEM INSTALLER Work Phone: [facility] 07-15-2023 09:56-0500 Heart rate 70 /min Patrizia Alba FAST FOOD SERVER.FILE SYSTEM INSTALLER Work Phone: [facility] 07-15-2023 09:56-0500 SaO2% (BldA) [Mass fraction] 91 % Patrizia Alba FAST FOOD SERVER.FILE SYSTEM INSTALLER Work Phone: [facility] 06-23-2023 22:41-0400 Body mass index (BMI) [Ratio] 24.5 kg/m2 [facility] 06-09-2023 14:15-0400 Body weight 69.85 kg NA Dale PA-C Work Phone: [facility] 06-09-2023 14:15-0400 Diastolic blood pressure 70 mm[Hg] NA Dale PA-C Work Phone: [facility] 06-09-2023 14:15-0400 Heart rate 65 /min NA Dale PA-C Work Phone: [facility] 06-09-2023 14:15-0400 Respiratory rate 18 /min NA Dale PA-C Work Phone: [facility] 06-09-2023 14:15-0400 SaO2% (BldA) [Mass fraction] 98 % NA Dale PA-C Work Phone: [facility] 06-09-2023 14:15-0400 Systolic blood pressure 128 mm[Hg] NA Dale PA-C Work Phone: [facility] 05-24-2023 00:45-0400 Body mass index (BMI) [Ratio] 24.5 kg/m2 [facility] 04-23-2023 21:48-0400 Body mass index (BMI) [Ratio] 24.5 kg/m2 [facility] 03-23-2023 23:35-0400 Body mass index (BMI) [Ratio] 24.5 kg/m2 [facility] 03-10-2023 11:28-0400 Body height 165.1 cm Mynor Shirley MD Work Phone: [facility] 03-10-2023 11:28-0400 Body weight 69.85 kg Mynor Shirley MD Work Phone: [facility] 03-10-2023 11:28-0400 Diastolic blood pressure 66 mm[Hg] Mynor Shirley MD Work Phone: [facility] 03-10-2023 11:28-0400 Heart rate 63 /min Mynor Shirley MD Work Phone: [facility] 03-10-2023 11:28-0400 Systolic blood pressure 136 mm[Hg] Mynor Shirley MD Work Phone: [facility] 02-20-2023 21:03-0400 Body mass index (BMI) [Ratio] 24.5 kg/m2 PA NA Dale PA Work Phone: [facility] 01-22-2023 08:06-0400 Body mass index (BMI) [Ratio] 24.5 kg/m2 PA NA Dale PA Work Phone: [facility] 12-30-2022 15:20-0400 Body weight 70.76 kg NA Dale PA-C Work Phone: [facility] 12-30-2022 15:20-0400 Diastolic blood pressure 80 mm[Hg] NA Dale PA-C Work Phone: [facility] 12-30-2022 15:20-0400 Heart rate 59 /min NA Dale PA-C Work Phone: [facility] 12-30-2022 15:20-0400 Respiratory rate 16 /min NA Dale PA-C Work Phone: [facility] 12-30-2022 15:20-0400 SaO2% (BldA) [Mass fraction] 97 % NA Dale PA-C Work Phone: [facility] 12-30-2022 15:20-0400 Systolic blood pressure 118 mm[Hg] NA Dale PA-C Work Phone: [facility] 12-21-2022 00:28-0400 Body mass index (BMI) [Ratio] 24.5 kg/m2 PA NA Dale PA Work Phone: [facility] 12-08-2022 09:16-0400 Body weight 70.31 kg NA Dale PA-C Work Phone: [facility] 12-08-2022 09:16-0400 Diastolic blood pressure 88 mm[Hg] NA Dale PA-C Work Phone: [facility] 12-08-2022 09:16-0400 Heart rate 60 /min NA Dale PA-C Work Phone: [facility] 12-08-2022 09:16-0400 Respiratory rate 16 /min NA Dale PA-C Work Phone: [facility] 12-08-2022 09:16-0400 SaO2% (BldA) [Mass fraction] 97 % NA Dale PA-C Work Phone: [facility] 12-08-2022 09:16-0400 Systolic blood pressure 130 mm[Hg] NA Dale PA-C Work Phone: [facility] 11-21-2022 21:24-0400 Body mass index (BMI) [Ratio] 24.5 kg/m2 PA NA Dale PA Work Phone: [facility] 11-05-2022 14:29-0400 Body height 165.1 cm PA NA Dale PA Work Phone: [facility] 11-05-2022 14:29-0400 Body mass index (BMI) [Ratio] 25.9 kg/m2 PA NA Dale PA Work Phone: [facility] 11-05-2022 14:29-0400 Body weight 70.76 kg PA NA Dale PA Work Phone: 9(388)061-048326 [place] [address] 11-05-2022 14:29-0400 Diastolic blood pressure 79 mm[Hg] PA NA Dale PA Work Phone: 1(044)324-249826 [place] [address] 11-05-2022 14:29-0400 Heart rate 63 /min PA NA Dale PA Work Phone: [facility] 11-05-2022 14:29-0400 Respiratory rate 18 /min PA NA Dale PA Work Phone: 1(290)201-561926 [place] [address] 11-05-2022 14:29-0400 SaO2% (BldA) [Mass fraction] 96 % PA NA Dale PA Work Phone: [facility] 11-05-2022 14:29-0400 Systolic blood pressure 121 mm[Hg] PA NA Dale PA Work Phone: [facility] 10-21-2022 19:48-0500 Body mass index (BMI) [Ratio] 24.5 kg/m2 PA NA Dale PA Work Phone: [facility] 10-14-2022 00:03-0500 Diastolic blood pressure 80 mm[Hg] PA NA Dale PA Work Phone: [facility] 10-14-2022 00:03-0500 Heart rate 78 /min PA NA Dale PA Work Phone: [facility] 10-14-2022 00:03-0500 Systolic blood pressure 159 mm[Hg] PA NA Dale PA Work Phone: 1(802)858-273226 [place] [address] 10-13-2022 22:59-0500 Body height 165.1 cm PA NA Dale PA Work Phone: 4(793)474-124026 [place] [address] 10-13-2022 22:59-0500 Body mass index (BMI) [Ratio] 26.6 kg/m2 PA NA Dale PA Work Phone: 4(571)285-492126 [place] [address] 10-13-2022 22:59-0500 Body temperature 98.6 [degF] PA NA Dale PA Work Phone: 6(963)108-709126 [place] [address] 10-13-2022 22:59-0500 Body weight 72.7 kg PA NA Dale PA Work Phone: 0(980)546-459781 [place] [address] 10-13-2022 22:59-0500 Respiratory rate 20 /min PA NA Dale PA Work Phone: 5(893)610-360081 [place] [address] 10-13-2022 22:59-0500 SaO2% (BldA) [Mass fraction] 100 % PA NA Dale PA Work Phone: 7(703)673-764926 [place] [address] 10-13-2022 15:30-0500 Body temperature 98.2 [degF] PA NA Dale PA Work Phone: 8(051)070-984526 [place] [address] 10-13-2022 15:30-0500 Diastolic blood pressure 79 mm[Hg] PA NA Dale PA Work Phone: 5(439)824-606826 [place] [address] 10-13-2022 15:30-0500 Heart rate 64 /min PA NA Dale PA Work Phone: 6(408)008-389126 [place] [address] 10-13-2022 15:30-0500 Respiratory rate 16 /min PA NA Dale PA Work Phone: 6(471)298-680626 [place] [address] 10-13-2022 15:30-0500 SaO2% (BldA) [Mass fraction] 96 % PA NA Dale PA Work Phone: 0(650)063-906126 [place] [address] 10-13-2022 15:30-0500 Systolic blood pressure 143 mm[Hg] PA NA Dale PA Work Phone: [facility] 10-12-2022 13:40-0500 Body height 165.1 cm PA NA Dale PA Work Phone: [facility] 10-12-2022 13:40-0500 Body mass index (BMI) [Ratio] 25 kg/m2 PA NA Dale PA Work Phone: 7(355)198-988426 [place] [address] 10-12-2022 13:40-0500 Body weight 68.03 kg PA NA Dale PA Work Phone: 5(759)024-279026 [place] [address] 10-12-2022 10:06-0500 Body temperature 97.8 [degF] PA NA Dale PA Work Phone: 7(446)443-279881 [place] [address] 10-12-2022 10:06-0500 Diastolic blood pressure 68 mm[Hg] PA NA Dale PA Work Phone: 2(509)313-501326 [place] [address] 10-12-2022 10:06-0500 Heart rate 60 /min PA NA Dale PA Work Phone: 7(045)076-603126 [place] [address] 10-12-2022 10:06-0500 Respiratory rate 20 /min PA NA Dale PA Work Phone: 9(331)742-820526 [place] [address] 10-12-2022 10:06-0500 SaO2% (BldA) [Mass fraction] 94 % PA NA Dale PA Work Phone: 4(010)712-753826 [place] [address] 10-12-2022 10:06-0500 Systolic blood pressure 137 mm[Hg] PA NA Dale PA Work Phone: 8(250)984-167526 [place] [address] 10-12-2022 04:03-0500 Body height 165.1 cm PA NA Dale PA Work Phone: 8(822)234-755181 [place] [address] 10-12-2022 04:03-0500 Body mass index (BMI) [Ratio] 27.1 kg/m2 PA NA Dale PA Work Phone: 1(551)862-318226 [place] [address] 10-12-2022 04:03-0500 Body weight 73.8 kg PA NA Dale PA Work Phone: 2(671)087-646226 [place] [address] 09-08-2022 13:44-0500 Diastolic blood pressure 63 mm[Hg] PA NA Dale PA Work Phone: 8(883)997-829481 [place] [address] 09-08-2022 13:44-0500 Heart rate 69 /min PA NA Dale PA Work Phone: 5(873)471-450381 [place] [address] 09-08-2022 13:44-0500 Respiratory rate 14 /min PA NA Dale PA Work Phone: 8(591)788-500081 [place] [address] 09-08-2022 13:44-0500 SaO2% (BldA) [Mass fraction] 95 % PA NA Dale PA Work Phone: 3(717)379-714781 [place] [address] 09-08-2022 13:44-0500 Systolic blood pressure 116 mm[Hg] PA NA Dale PA Work Phone: 1(478)992-605881 [place] [address] 09-08-2022 13:05-0500 Body temperature 99.8 [degF] PA NA Dale PA Work Phone: 0(054)047-844681 [place] [address] 09-08-2022 11:31-0500 Body height 165.1 cm PA NA Dale PA Work Phone: 8(474)777-291581 [place] [address] 09-08-2022 11:31-0500 Body mass index (BMI) [Ratio] 25 kg/m2 PA NA Dale PA Work Phone: 0(785)399-897181 [place] [address] 09-08-2022 11:31-0500 Body weight 68.03 kg PA NA Dale PA Work Phone: 4(395)693-870681 [place] [address] 09-07-2022 08:24-0500 Body mass index (BMI) [Ratio] 26.1 kg/m2 PA NA Dale PA Work Phone: 7(706)003-366881 [place] [address] 09-07-2022 08:24-0500 Body temperature 98.7 [degF] PA NA Dale PA Work Phone: 5(760)484-379381 [place] [address] 09-07-2022 08:24-0500 Body weight 71.21 kg PA NA Dale PA Work Phone: 5(826)736-256281 [place] [address] 09-07-2022 08:24-0500 Diastolic blood pressure 80 mm[Hg] PA NA Dale PA Work Phone: 1(145)555-740226 [place] [address] 09-07-2022 08:24-0500 Heart rate 74 /min PA NA Dale PA Work Phone: 9(006)955-056081 [place] [address] 09-07-2022 08:24-0500 Respiratory rate 17 /min PA NA Dale PA Work Phone: 6(045)042-254981 [place] [address] 09-07-2022 08:24-0500 SaO2% (BldA) [Mass fraction] 93 % PA NA Dale PA Work Phone: 1(065)583-443226 [place] [address] 09-07-2022 08:24-0500 Systolic blood pressure 132 mm[Hg] PA NA Dale PA Work Phone: 3(087)013-335081 [place] [address] 08-23-2022 22:46-0500 Body mass index (BMI) [Ratio] 24.5 kg/m2 PA NA Dale PA Work Phone: 4(248)519-701781 [place] [address] 07-23-2022 22:39-0500 Body mass index (BMI) [Ratio] 24.5 kg/m2 PA NA Dale PA Work Phone: 4(940)633-000681 [place] [address] 06-24-2022 09:58-0400 Body mass index (BMI) [Ratio] 24.5 kg/m2 PA NA Dale PA Work Phone: 6(990)093-540226 [place] [address] 06-04-2022 11:42-0400 Body height 165.1 cm PA NA Dale PA Work Phone: 1(835)579-951526 [place] [address] Work Phone: 06-04-2022 11:42-0400 Body mass index (BMI) [Ratio] 27.1 kg/m2 PA NA Dale PA Work Phone: 1(369)292-291426 [place] [address] 06-04-2022 11:42-0400 Body weight 73.93 kg PA NA Dale PA Work Phone: 3(962)337-766426 [place] [address] 06-04-2022 11:42-0400 Diastolic blood pressure 74 mm[Hg] PA NA Dale PA Work Phone: 0(982)591-801226 [place] [address] 06-04-2022 11:42-0400 Heart rate 61 /min PA NA Dale PA Work Phone: [facility] 06-04-2022 11:42-0400 Respiratory rate 18 /min PA NA Dale PA Work Phone: [facility] 06-04-2022 11:42-0400 SaO2% (BldA) [Mass fraction] 96 % PA NA Dale PA Work Phone: [facility] 06-04-2022 11:42-0400 Systolic blood pressure 124 mm[Hg] PA NA Dale PA Work Phone: [facility] 05-23-2022 19:37-0400 Body mass index (BMI) [Ratio] 24.5 kg/m2 PA NA Dale PA Work Phone: [facility] 04-23-2022 22:22-0400 Body mass index (BMI) [Ratio] 24.5 kg/m2 [facility] Work Phone: 03-23-2022 01:58-0400 Body mass index (BMI) [Ratio] 24.5 kg/m2 [facility] Work Phone: 02-21-2022 06:42-0400 Body mass index (BMI) [Ratio] 24.5 kg/m2 Dr. Chaitanya Estrella III Work Phone: [facility] Work Phone: 01-21-2022 20:14-0400 Body mass index (BMI) [Ratio] 24.5 kg/m2 Dr. Chaitanya Estrella III Work Phone: [facility] Work Phone: 01-07-2022 16:06-0400 Body weight 73.03 kg NA Dale PA-C Work Phone: [facility] 01-07-2022 16:06-0400 Diastolic blood pressure 72 mm[Hg] NA Dale PA-C Work Phone: [facility] 01-07-2022 16:06-0400 Heart rate 61 /min NA Dale PA-C Work Phone: [facility] 01-07-2022 16:06-0400 SaO2% (BldA) [Mass fraction] 95 % NA Dale PA-C Work Phone: [facility] 01-07-2022 16:06-0400 Systolic blood pressure 120 mm[Hg] NA Dale PA-C Work Phone: [facility] 01-05-2022 07:14-0400 Body temperature 97.4 [degF] Dr. Chaitanya Estrella III Work Phone: [facility] Work Phone: 01-05-2022 07:14-0400 Diastolic blood pressure 75 mm[Hg] Dr. Chaitanya Estrella III Work Phone: [facility] Work Phone: 01-05-2022 07:14-0400 Heart rate 58 /min Dr. Chaitanya Estrella III Work Phone: [facility] Work Phone: 01-05-2022 07:14-0400 Respiratory rate 14 /min Dr. Chaitanya Estrella III Work Phone: [facility] Work Phone: 01-05-2022 07:14-0400 SaO2% (BldA) [Mass fraction] 98 % Dr. Chaitanya Estrella III Work Phone: [facility] Work Phone: 01-05-2022 07:14-0400 Systolic blood pressure 123 mm[Hg] Dr. Chaitanya Estrella III Work Phone: [facility] Work Phone: 01-05-2022 05:35-0400 Body height 165.[address] Chaitanya Estrella III Work Phone: [facility] Work Phone: 01-05-2022 05:35-0400 Body mass index (BMI) [Ratio] 27.3 kg/m2 Dr. Chaitanya Estrella III Work Phone: [facility] Work Phone: 01-05-2022 05:35-0400 Body weight 74.[address] Chaitanya Estrella III Work Phone: [facility] Work Phone: 12-22-2021 02:39-0400 Body mass index (BMI) [Ratio] 24.5 kg/m2 Dr. Chaitanya Estrella III Work Phone: [facility] Work Phone: 12-17-2021 13:51-0400 Body mass index (BMI) [Ratio] 25.4 kg/m2 Dr. Chaitanya Estrella III Work Phone: [facility] Work Phone: 12-17-2021 13:51-0400 Body temperature 98.6 [degF] Dr. Chaitanya Estrella III Work Phone: [facility] Work Phone: 12-17-2021 13:51-0400 Body weight 71.[address] Chaitanya Estrella III Work Phone: [facility] Work Phone: 12-17-2021 13:51-0400 Diastolic blood pressure 73 mm[Hg] Dr. Chaitanya Estrella III Work Phone: [facility] Work Phone: 12-17-2021 13:51-0400 Heart rate 60 /min Dr. Chaitanya Estrella III Work Phone: [facility] Work Phone: 12-17-2021 13:51-0400 Respiratory rate 18 /min Dr. Chaitanya Estrella III Work Phone: [facility] Work Phone: 12-17-2021 13:51-0400 SaO2% (BldA) [Mass fraction] 98 % Dr. Chaitanya Estrella III Work Phone: [facility] Work Phone: 12-17-2021 13:51-0400 Systolic blood pressure 141 mm[Hg] Dr. Chaitanya Estrella III Work Phone: [facility] Work Phone: 12-17-2021 13:51-0400 Body height 167.[address] Chaitanya Estrella III Work Phone: [facility] Work Phone: 12-17-2021 13:51-0400 Body mass index (BMI) [Ratio] 25.4 kg/m2 Dr. Chaitanya Estrella III Work Phone: [facility] Work Phone: 12-17-2021 13:51-0400 Body temperature 98.6 [degF] Dr. Chaitanya Estrella III Work Phone: [facility] Work Phone: 12-17-2021 13:51-0400 Body weight 71.[address] Chaitanya Estrella III Work Phone: [facility] Work Phone: 12-17-2021 13:51-0400 Diastolic blood pressure 73 mm[Hg] Dr. Chaitanya Estrella III Work Phone: [facility] Work Phone: 12-17-2021 13:51-0400 Heart rate 60 /min Dr. Chaitanya Estrella III Work Phone: [facility] Work Phone: 12-17-2021 13:51-0400 Respiratory rate 18 /min Dr. Chaitanya Estrella III Work Phone: [facility] Work Phone: 12-17-2021 13:51-0400 SaO2% (BldA) [Mass fraction] 98 % Dr. Chaitanya Estrella III Work Phone: [facility] Work Phone: 12-17-2021 13:51-0400 Systolic blood pressure 141 mm[Hg] Dr. Chaitanya Estrella III Work Phone: [facility] Work Phone: 12-02-2021 14:10-0400 Body mass index (BMI) [Ratio] 25.4 kg/m2 Dr. Chaitanya Estrella III Work Phone: [facility] Work Phone: 12-02-2021 14:10-0400 Body weight 71.[address] Chaitanya Estrella III Work Phone: [facility] Work Phone: 12-02-2021 14:10-0400 Diastolic blood pressure 84 mm[Hg] Dr. Chaitanya Estrella III Work Phone: [facility] Work Phone: 12-02-2021 14:10-0400 Heart rate 68 /min Dr. Chaitanya Estrella III Work Phone: [facility] Work Phone: 12-02-2021 14:10-0400 Respiratory rate 16 /min Dr. Chaitanya Estrella III Work Phone: [facility] Work Phone: 12-02-2021 14:10-0400 Systolic blood pressure 132 mm[Hg] Dr. Chaitanya Estrella III Work Phone: [facility] Work Phone: 12-02-2021 14:10-0400 Body mass index (BMI) [Ratio] 25.4 kg/m2 Dr. Chaitanya Estrella III Work Phone: [facility] Work Phone: 12-02-2021 14:10-0400 Body weight 71.[address] Chaitanya Estrella III Work Phone: [facility] Work Phone: 12-02-2021 14:10-0400 Diastolic blood pressure 84 mm[Hg] Dr. Chaitanya Estrella III Work Phone: [facility] Work Phone: 12-02-2021 14:10-0400 Heart rate 68 /min Dr. Chaitanya Estrella III Work Phone: [facility] Work Phone: 12-02-2021 14:10-0400 Respiratory rate 16 /min Dr. Chaitanya Estrella III Work Phone: [facility] Work Phone: 12-02-2021 14:10-0400 Systolic blood pressure 132 mm[Hg] Dr. Chaitanya Estrella III Work Phone: [facility] Work Phone: 11-22-2021 00:55-0400 Body mass index (BMI) [Ratio] 24.5 kg/m2 Dr. Chaitanya Estrella III Work Phone: [facility] Work Phone: 10-22-2021 09:04-0500 Body mass index (BMI) [Ratio] 24.5 kg/m2 Dr. Chaitanya Estrella III Work Phone: [facility] Work Phone: 10-22-2021 08:04-0500 Body mass index (BMI) [Ratio] 24.5 kg/m2 [facility] Work Phone: 09-23-2021 21:10-0500 Body mass index (BMI) [Ratio] 24.5 kg/m2 [facility] Work Phone: 08-25-2021 02:36-0500 Body mass index (BMI) [Ratio] 24.5 kg/m2 [facility] Work Phone: 07-24-2021 01:00-0500 Body mass index (BMI) [Ratio] 24.5 kg/m2 [facility] Work Phone: 05-14-2017 09:05-0400 BMI (Body Mass Index) 24.9 kg/m2 Freddy Costa MD [facility] Work Phone: 05-14-2017 09:05-0400 Body Temperature 97.2 [degF] Freddy Costa MD [facility] Work Phone: 05-14-2017 09:05-0400 BP Diastolic 82 mm[Hg] Freddy Costa MD [facility] Work Phone: 05-14-2017 09:05-0400 BP Systolic 134 mm[Hg] Freddy Costa MD [facility] Work Phone: 05-14-2017 09:05-0400 Height 170.18 cm Freddy Costa MD [facility] Work Phone: 05-14-2017 09:05-0400 Pulse (Heart Rate) 63 /min Freddy Costa MD [facility] Work Phone: 05-14-2017 09:05-0400 Respiratory Rate 18 /min Freddy Costa MD [facility] Work Phone: 05-14-2017 09:05-0400 Weight 72.12 kg Freddy Costa MD [facility] Work Phone: 09-15-2014 10:10-0500 BMI (Body Mass Index) 27.29 kg/m2 [facility] Work Phone: 09-15-2014 10:10-0500 Weight 72.12 kg [facility] Work Phone: 08-10-2014 08:39-0500 Height 162.56 cm [facility] Work Phone: Encounters Encounter Date Encounter Type Care Provider Facility Start: 03-15-2025 End: 03-15-2025 Emergency department patient visit Bart SALDANA Work Phone: -Emergency Department Work Phone: Start: 03-08-2025 Registered Recurring Bart Rosales RADIAL DRILL OPERATOR FOR PLASTIC- C -Laboratory Work Phone: Start: 03-08-2025 ambulatory Bart Rosales RADIAL DRILL OPERATOR FOR PLASTIC Facility :[facility] Start: 03-03-2025 End: 03-14-2025 Telephone encounter Daquan Grewalluna Work Phone: Podiatry Start: 03-02-2025 End: 03-02-2025 ambulatory [facility] Facility:[facility] Start: 02-08-2025 End: 02-08-2025 ambulatory Edgar Dave PT Work Phone: [facility] Comment on above: Neck pain (Primary D x); Chronic pain of both shoulders Start: 02-03-2025 End: 02-03-2025 Follow-up encounter José Miguel Sadlaña APRN.CNP Work Phone: [facility] [place] Start: 02-01-2025 End: 02-03-2025 Telephone encounter José Miguel Saldaña APRN.FILE SYSTEM INSTALLER Work Phone: [facility] [place] Comment on above: Results Start: 01-26-2025 End: 01-26-2025 ambulatory Moon Teixeira MD Work Phone: [facility] [place] Comment on above: Derm Problem Start: 01-26-2025 End: 01-26-2025 Office outpatient visit 25 minutes José Miguel Saldaña APRN.FILE SYSTEM INSTALLER Work Phone: [facility] [place] Comment on above: Chronic pain of both shoulders (Primary Dx); Neck pain; Skin lesion; Other fatigue; Weight gain; Vitamin D deficiency Start: 01-17-2025 End: 01-17-2025 Patient encounter procedure Alec Arthur DO Work Phone: Vascular Surgery Comment on above: Symptomatic varicose veins of both lower extremities (Primary Dx) Start: 01-17-2025 End: 01-17-2025 ambulatory [facility] Facility:[facility] Start: 01-05-2025 End: 01-05-2025 Discharged Recurring Bart Rosales RADIAL DRILL OPERATOR FOR PLASTIC-C -Laboratory Work Phone: Start: 01-05-2025 End: 01-05-[address] Moon Teixeira MD Work Phone: [facility] Work Phone: Start: 01-04-2025 End: 01-04-2025 ambulatory Maria De Jesus Desouza FAST FOOD SERVER.FILE SYSTEM INSTALLER Work Phone: Cardiology Start: 01-03-2025 End: 01-06-2025 ambulatory Moon Teixeira MD Work Phone: Internal Medicine [place] [id number] Start: 12-30-2024 End: 12-30-2024 Patient encounter procedure Maria De Jesus Desouza FAST FOOD SERVER.FILE SYSTEM INSTALLER Work Phone: Cardiology Comment on above: Paroxysmal atrial fi brillation (HCC); Atrial flutter, unspecified type (HCC); Encounter for current long-term use of 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; Essential (primary) hypertension Start: 12-30-2024 End: 12-30-2024 ambulatory MOON TEIXEIRA Facility:[facility] Start: 12-02-2024 End: 12-06-2024 Telephone encounter Mynor Shirley MD Work Phone: Cardiology Comment on above: Results Start: 2024 End: 2024 Telephone encounter Mynor Shirley MD Work Phone: Cardiology Comment on above: Received Outside Med [facility] Records (Holter ) Patient Update Start: 11-28-2024 End: 11-28-2024 Emergency department patient visit Bart SALDANA Work Phone: -Emergency Department Work Phone: Start: 11-28-2024 End: 11-28-2024 ambulatory Moon Teixeira MD Work Phone: [facility] [place] Comment on above: Continuing SOB Start: 11-22-2024 Non-patient / Non-visit Dr. Dilshad BAILEY -[facility] Work Phone: Start: 11-22-2024 End: 11-22-2024 ambulatory Bart Rosales NP-C Work Phone: [facility] Work Phone: Start: 11-22-2024 End: 11-22-2024 Patient encounter procedure Desire DENNIS -Pulmonary Services/Neurology Work Phone: Start: 11-22-2024 End: 11-22-2024 ambulatory [facility] Facility:[facility] Start: 11-18-2024 End: 11-18-2024 ambulatory Bart Rosales RADIAL DRILL OPERATOR FOR PLASTIC-C Work Phone: [facility] Work Phone: Start: 11-18-2024 End: 11-18-2024 Discharged Recurring Bart Juan Antonio Bobby RADIAL DRILL OPERATOR FOR PLASTIC-C -Laboratory Work Phone: Start: 11-11-2024 Registered Recurring Bart Rosales RADIAL DRILL OPERATOR FOR PLASTIC- C -Laboratory Work Phone: Start: 11-11-2024 Non-patient / Non-visit Dr. Dilshad BAILEY -[facility] Start: 11-11-2024 End: 11-11-[address] Yinka Lovelace MD -Cardiovascular Services Work Phone: Start: 11-11-2024 End: 11-11-2024 Refill Moon Teixeira MD Work Phone: [facility] [place] Comment on above: Refill Request Start: 11-11-2024 End: 11-11-2024 [facility] Facility:[facility] Start: 11-10-2024 End: 11-11-2024 Follow-up encounter Moon Teixeira MD Work Phone: Geriatrics Comment on above: Results Start: 11-09-2024 End: 11-09-2024 ambulatory [facility] Facility:[facility] Start: 11-09-2024 End: 11-09-2024 Subsequent hospital visit by physician [employer] [facility] (I-Stat/1.5t) Work Phone: Radiology Comment on above: Transient cerebral i schemia, unspecified type [G45.9] Start: 11-04-2024 End: 11-04-2024 ambulatory Bart Rosales 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 Moon Teixeira MD -Physical Therapy Work Phone: Start: 11-04-[address] Moon langford MD -Physical Therapy Work Phone: Start: 10-31-2024 ambulatory [facility] Facility:[facility] Start: 10-31-2024 Non-patient / Non-visit Dr. Moon king MD -[facility] Work Phone: Start: 10-26-2024 End: 10-26-2024 Telephone encounter Moon Teixeira MD Work Phone: Geriatrics Comment on above: Orders (Physical the rapy) Start: 10-26-2024 End: 10-26-2024 [facility] Facility:[facility] Start: 10-26-2024 End: 10-26-2024 Assmt & care planning pt w/cognitive impairment Moon Teixeira MD Work Phone: Geriatrics Comment on above: Transient cerebral i schemia, unspecified type (Primary Dx); Balance disorder; Memory change; Weakness of both lower extremities; Dizziness; Weakness of both upper extremities Start: 10-24-2024 End: 10-24-2024 Follow-up encounter José Miguel Saldaña APRN.FILE SYSTEM INSTALLER Work Phone: [facility] Start: 10-21-2024 End: 10-21-2024 ambulatory [facility] Facility:[facility] Start: 10-21-2024 End: 10-21-2024 Patient encounter procedure José Miguel Saldaña APRN.FILE SYSTEM INSTALLER Work Phone: [facility] [place] Comment on above: Balance disorder (Pr imary Dx); Vestibular neuronitis of right ear; Memory change; Hematuria, unspecified type; Paroxysmal atrial fibrillation (HCC) Start: 10-13-2024 End: 10-13-[address] Yinka Lovelace MD -[facility] Work Phone: Start: 10-13-2024 End: 10-13-2024 ambulatory [facility] Facility:[facility] Start: 10-13-2024 End: 10-13-2024 ambulatory [facility] Facility:[facility] Start: 10-11-2024 End: 10-11-2024 Patient encounter procedure Desire Weldon PA -Laboratory Work Phone: Start: 10-11-2024 End: 10-11-2024 ambulatory Bart Rosales RADIAL DRILL OPERATOR FOR PLASTIC Facility:[facility] Start: 09-26-2024 End: 09-26-2024 Emergency department patient visit Dr. Pedro Gusman MD -Emergency Department Work Phone: Start: 09-23-2024 End: 09-23-2024 Patient encounter procedure Desire Weldon PA -Laboratory Work Phone: Start: 09-22-2024 End: 09-23-2024 [facility] Facility:[facility] Start: 09-22-2024 End: 09-22-2024 Discharged Recurring Bart Rosales RADIAL DRILL OPERATOR FOR PLASTIC-C -Laboratory Work Phone: Start: 09-15-2024 End: 09-16-2024 Telephone encounter Moon Teixeira MD Work Phone: [facility] [place] Comment on above: Orders Start: 08-19-2024 End: 08-19-2024 Telephone encounter Janelle Morales APRN.CNP Work Phone: [facility] [place] Comment on above: Results Start: 08-12-2024 End: 08-15-2024 Telephone encounter Yaa STEVENSC Work Phone: [facility] [place] Comment on above: follow up urine resu lts Start: 08-11-2024 End: 08-11-2024 ambulatory [facility] Facility:[facility] Start: 07-28-2024 End: 07-28-2024 ambulatory [facility] Facility:[facility] Start: 07-28-2024 End: 07-28-2024 Patient encounter procedure Daquan Buchanan Work Phone: Podiatry Comment on above: Onychomycosis (Prima ry Dx); Diminished pulses in lower extremity Start: 07-27-2024 End: 07-29-2024 Telephone encounter Yaa Ashby PA-C Work Phone: [facility] [place] Start: 07-26-2024 End: 07-26-2024 Telephone encounter Yaa STEVENSC Work Phone: [facility] [place] Start: 07-26-2024 End: 07-26-2024 Discharged Recurring Bart Juan Antonio Bobby RADIAL DRILL OPERATOR FOR PLASTIC-C -Laboratory Work Phone: Start: 07-26-2024 End: 07-26-2024 Subsequent hospital visit by physician [facility] [place] Work Phone: Radiology Comment on above: Acute cough [R05.1] Start: 07-26-2024 End: 07-26-2024 [facility] Facility:[facility] Start: 07-26-2024 End: 07-26-2024 Office outpatient visit 25 minutes Yaa Ashby PA-C Work Phone: [facility] Comment on above: Urinary urgency (Honey mago Dx); Urge incontinence; Acute cough; Paroxysmal atrial fibrillation (HCC); Microscopic hematuria Start: 06-29-2024 End: 06-29-2024 Telephone encounter Moon Teixeira MD Work Phone: [facility] [place] Comment on above: Xray Results Start: 06-27-2024 End: 06-27-2024 Telephone encounter Moon Teixeira MD Work Phone: [facility] [place] Comment on above: Patient Update Orders Start: 06-27-2024 End: 06-27-2024 Subsequent hospital visit by physician [facility] [place] Work Phone: Radiology Comment on above: Fall, sequela [W19.X XXS] Start: 06-27-2024 End: 06-27-2024 ambulatory [facility] Facility:[facility] Start: 06-27-2024 End: 06-27-2024 Office outpatient visit 25 minutes Moon Teixeira MD Work Phone: [facility] [place] Comment on above: Fall, sequela (Prima ry Dx); Balance disorder; Abnormality of gait due to impairment of balance; Painful rib Start: 06-22-2024 End: 06-22-2024 Emergency department patient visit Carol Mccarthy Facility:[facility] Start: 06-16-2024 End: 06-17-2024 Telephone encounter Moon Teixeira MD Work Phone: [facility] [place] Comment on above: Patient Update Start: 06-14-2024 End: 06-14-2024 ambulatory [facility] Facility:[facility] Start: 05-17-2024 End: 05-19-2024 Telephone encounter Moon Teixeira MD Work Phone: [facility] [place] Comment on above: ordes for anastasiya durant Start: 05-17-2024 End: 05-17-2024 Emergency department patient visit [facility] Facility:[facility] Start: 05-17-2024 End: 05-17-2024 ambulatory [facility] Facility:[facility] Start: 05-06-2024 End: 05-06-2024 [facility] Facility:[facility] Start: 05-06-2024 End: 05-06-2024 Office outpatient visit 15 minutes Moon Teixeira MD Work Phone: [facility] [place] Comment on above: Anxiety and depressi on (Primary Dx); Mixed hyperlipidemia; Essential hypertension Start: 05-03-2024 End: 05-03-2024 [facility] Facility:[facility] Start: 05-02-2024 End: 05-03-2024 Orders Only Gucci MARS Work Phone: 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) Start: 04-29-2024 End: 04-29-2024 Telephone encounter Moon Teixeira MD Work Phone: Internal Medicine [place] Comment on above: Medication Question Start: 04-26-2024 End: 04-27-2024 Telephone encounter Moon Teixeira MD Work Phone: [facility] [place] Comment on above: Xray Results Start: 04-23-2024 End: 04-23-2024 ambulatory [facility] Facility:[facility] Start: 04-23-2024 End: 04-23-2024 Subsequent hospital visit by physician Ovidio [facility] [place] Work Phone: Radiology Comment on above: Rib pain [R07.81] Start: 04-22-2024 End: 04-22-2024 Office outpatient visit 15 minutes Moon Teixeira MD Work Phone: [facility] [place] Comment on above: Rib pain (Primary Dx ); Muscle spasm Start: 04-22-2024 End: 04-22-2024 ambulatory [facility] Facility:[facility] Start: 04-22-2024 End: 04-22-2024 ambulatory Bart Rosales NP Facility:[facility] Start: 04-18-2024 End: 04-18-2024 ambulatory [facility] Facility:[facility] Start: 04-18-2024 End: 04-18-2024 Patient encounter procedure Gucci MARS Work Phone: 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) Start: 04-05-2024 End: 04-05-2024 ambulatory ANNELIESE DALE Facility:[facility] Start: 04-05-2024 End: 04-05-2024 Patient encounter procedure Moon Teixeira MD Work Phone: Internal [facility] [place] Comment on above: Dysphagia, unspecifi ed type (Primary Dx); Choking episode; Insomnia, unspecified type; Stress; Atrial fibrillation, unspecified type (HCC); Numbness and tingling; Vitamin B12 deficiency; Weight gain; Fatigue, unspecified type; Iron deficiency Start: 04-05-2024 End: 04-05-2024 Emergency department patient visit [facility] Facility:[facility] Start: 03-21-2024 Telephone encounter Nirali bryan PA-C Work Phone: [facility] [place] Comment on above: Results Start: 03-21-2024 End: 03-23-2024 ambulatory Bart Rosales NP Facility:[facility] Start: 03-18-2024 End: 03-18-2024 ambulatory ANNELIESE DALE Facility:[facility] Start: 03-15-2024 Telephone encounter Elizabeth Dale PA-C Work Phone: [facility] [place] Comment on above: Patient Question Start: 02-22-2024 Telephone encounter Nirali Rosy bryan PA-C Work Phone: [facility] [place] Comment on above: Results Start: 02-11-2024 Telephone encounter Nirali Gallegos irvin PA-C Work Phone: [facility] [place] Comment on above: Results Start: 02-10-2024 ambulatory Elizabeth Renee vicky PA-C Work Phone: [facility] [place] Comment on above: Headache Start: 02-10-2024 End: 02-10-2024 Patient encounter procedure Nirali Almanza PA-C Work Phone: Family [facility] [place] Comment on above: Neck pain (Primary D x); CHE (dyspnea on exertion); Near syncope; Lightheadedness; Essential hypertension; Paroxysmal atrial fibrillation (HCC); Paroxysmal atrial tachycardia (HCC) Start: 01-12-2024 Telephone encounter Sofia Arciniega MD Work Phone: [facility] Cardiology Comment on above: Appointment Start: 01-04-2024 End: 01-04-2024 Patient encounter procedure Gucci MARS Work Phone: 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) Start: 01-01-2024 End: 06-02-2024 Telephone encounter Moon Teixeira MD Work Phone: Internal Medicine [place] Comment on above: Patient Question Start: 12-05-2023 End: 12-22-2023 ambulatory JEANNIE DENNIS Work Phone: [facility] Work Phone: Start: 12-05-2023 End: 12-22-2023 Discharged Recurring JEANNIE DENNIS Work Phone: [facility]-Laboratory Work Phone: Start: 11-11-2023 End: 11-11-2023 Patient encounter procedure PA NA Dale PA Work Phone: [facility] Work Phone: Start: 11-06-2023 Telephone encounter Elizabeth STEVENSC Work Phone: [facility] [place] Comment on above: Patient Update Start: 10-26-2023 End: 11-21-2023 ambulatory PA M Sakina Reneeon PA Work Phone: [facility] Work Phone: Start: 10-26-2023 End: 11-21-2023 Discharged Recurring PA NA Dale PA Work Phone: [facility]Labor[facility] Work Phone: Start: 10-21-2023 Orders Only Mynor gomez MD Work Phone: Cardiology Comment on above: Paroxysmal atrial fi brillation (HCC) (Primary Dx); Paroxysmal atrial tachycardia (HCC) Start: 09-18-2023 End: 09-18-2023 ambulatory PA Elizabeth Reneeon PA Work Phone: [facility] Work Phone: Start: 09-18-2023 End: 09-18-2023 Discharged Recurring PA NA Dale PA Work Phone: [facility] Work Phone: Start: 08-11-2023 End: 08-11-2023 Patient encounter procedure PA NA Dale PA Work Phone: [facility] Work Phone: Start: 08-09-2023 End: 08-09-2023 Emergency department patient visit [facility]Emergency Department Work Phone: Start: 08-05-2023 Telephone encounter Linda brantley [facility] Work Phone: Psychology Comment on above: consult Start: 07-29-2023 End: 08-23-2023 ambulatory PA Elizabeth DENNIS Work Phone: [facility] Work Phone: Start: 07-29-2023 End: 08-23-2023 Discharged Recurring JEANNIE DENNIS Work Phone: [facility] Work Phone: Start: 07-29-2023 [facility] Start: 07-20-2023 Telephone encounter Elizabeht Dale PA-C Work Phone: [facility] Comment on above: Results Start: 07-15-2023 End: 07-23-2023 ambulatory [facility] Work Phone: Start: 07-15-2023 End: 07-23-2023 [facility] Start: 07-15-2023 End: 07-15-2023 Subsequent hospital visit by physician Ovidio [facility] Work Phone: Radiology Comment on above: Right wrist pain [M2 5.531] Start: 07-15-2023 End: 07-15-2023 Patient encounter procedure Patrizia Willis APRN.CNP Work Phone: [facility] [place] Comment on above: Right wrist pain (Pr imary Dx) Start: 07-01-2023 End: 07-01-2023 ambulatory [facility] Work Phone: Start: 07-01-2023 End: 07-01-2023 Discharged Recurring [facility]Physical Therapy Work Phone: Start: 06-16-2023 End: 06-16-2023 ambulatory [facility] Work Phone: Start: 06-16-2023 End: 06-16-2023 Discharged Recurring [facility] Work Phone: Start: 06-09-2023 End: 06-09-2023 Patient encounter procedure Elizabeth Dale PA-C Work Phone: [facility] Comment on above: Essential hypertensi on (Primary Dx); Paroxysmal atrial fibrillation (HCC); Paroxysmal atrial tachycardia; Varicose veins of left lower extremity with pain; Mild asthma without complication, unspecified whether persistent; Severe episode of recurrent major depressive disorder, without psychotic features (HCC); Vestibular neuronitis of right ear; Vertigo of central origin; Hypothyroidism, acquired; Grieving; Hyperlipidemia, mixed Start: 06-09-2023 Telephone encounter Linda brantley [facility] Work Phone: Psychology Comment on above: consult Start: 05-12-2023 End: 05-12-2023 ambulatory [facility] Work Phone: Start: 05-12-2023 End: 05-12-2023 [facility] Start: 05-12-2023 [facility] Start: 05-01-2023 End: 05-01-2023 ambulatory [facility] Work Phone: Start: 05-01-2023 End: 05-01-2023 [facility] Start: 05-01-2023 [facility] Start: 03-30-2023 End: 03-30-2023 ambulatory [facility] Work Phone: Start: 03-30-2023 End: 03-30-2023 [facility] Start: 03-16-2023 End: 03-23-2023 ambulatory JEANNIE DENNIS Work Phone: [facility] Work Phone: Start: 03-16-2023 End: 03-23-2023 Discharged Recurring JEANNIE DENNIS [facility] Start: 03-10-2023 End: 03-10-2023 Patient encounter procedure Mynor Shirley MD Work Phone: Cardiology Comment on above: Paroxysmal atrial fi brillation (HCC) (Primary Dx) Start: 03-04-2023 End: 03-04-2023 Patient encounter procedure Terri Gomez DPM Work Phone: Podiatry Comment on above: Onychomycosis (Prima ry Dx); Pain in toe of left foot; Pain in toe of right foot; Pain and swelling of toe, right Start: 02-18-2023 Telephone encounter Mynor Shirley MD Work Phone: Cardiology Comment on above: Patient Update Start: 02-13-2023 Telephone encounter Elizabeth STEVENSC Work Phone: [facility] [place] Comment on above: Knee Pain Start: 02-05-2023 End: 02-05-2023 ambulatory PA Elizabeth DENNIS Work Phone: [facility] Work Phone: Start: 02-05-2023 End: 02-05-2023 Discharged Recurring PA ZAIRE DENNIS Work Phone: [facility] Work Phone: Start: 02-04-2023 ambulatory TERRI GOMEZ Facility:[facility] Start: 02-04-2023 End: 02-04-2023 Patient encounter procedure Terri Jason DPM Work Phone: Podiatry Comment on above: Closed fracture of p halanx of right fourth toe, initial encounter (Primary Dx); Pain and swelling of toe, right Start: 02-04-2023 End: 02-04-2023 [facility] Work [facility]: [facility] Comment on above: Pain in toe of right foot [M79.674] Start: 01-23-2023 Telephone encounter Terri Jason DPM Work Phone: Orthopaedics Comment on above: Patient Update Start: 01-21-2023 ambulatory Elizabeth Oakleyi ty:[facility] Start: 01-21-2023 End: 01-21-2023 Subsequent hospital visit by physician [facility] Salima Ng Work Phone: Radiology Comment on above: Pain and swelling of toe, right [M79.674, M79.89] Start: 01-21-2023 End: 01-21-2023 Patient encounter procedure Terri Gomez DPM Work Phone: Podiatry Comment on above: Toe dislocation, rig ht, initial encounter (Primary Dx); Pain and swelling of toe, right; Other acute osteomyelitis of right foot (HCC); Pain Start: 01-09-2023 End: 01-09-2023 ambulatory PA Elizabeth DENNIS Work Phone: [facility] Work Phone: Start: 01-09-2023 End: 01-09-2023 Discharged Recurring PA ZAIRE DENNIS Work Phone: [facility] Start: 12-30-2022 End: 12-30-2022 Subsequent hospital visit by physician Ovidio [facility] [place] Work Phone: Radiology Comment on above: Foot injury, right, initial encounter [S99.921A] Start: 12-30-2022 End: 12-30-2022 Patient encounter procedure Elizabeth Dale PA-C Work Phone: [facility] Comment on above: Foot injury, right, initial encounter (Primary Dx) Start: 12-08-2022 End: 12-08-2022 Patient encounter procedure Elizabeth Dale PA-C Work Phone: [facility] Comment on above: Essential hypertensi on (Primary Dx); Paroxysmal atrial fibrillation (HCC); Paroxysmal atrial tachycardia (HCC); Syncope and collapse; Hyperlipidemia, mixed; Essential hypertension, benign; Mild asthma without complication, unspecified whether persistent; Vestibular neuronitis of right ear; Impaired fasting glucose; Severe episode of recurrent major depressive disorder, without psychotic features (HCC) Start: 12-05-2022 End: 12-21-2022 ambulatory PA Elizabeth DENNIS Work Phone: [facility] Work Phone: Start: 12-05-2022 End: 12-21-2022 Discharged Recurring PA ZAIRE Reneeon PA Work Phone: [facility] Start: 12-01-2022 Non-patient / Non-visit PA ZAIRE Reneeon PA Work Phone: [facility] Start: 11-28-2022 Education Mynor gomez MD Work Phone: Cardiology Comment on above: Patient Education (L oop Recorder) Start: 11-05-2022 End: 11-05-2022 Patient encounter procedure PA ZAIRE Reneeon PA Work Phone: [facility] Start: 11-05-2022 End: 11-21-2022 ambulatory PA M Sakina Reneeon PA Work Phone: [facility] Work Phone: Start: 11-05-2022 End: 11-21-2022 Discharged Recurring PA NA Dale PA Work Phone: [facility] Start: 11-04-2022 Registered Recurring PA ZAIRE Cronin PA Work Phone: [facility]Physical Therapy Start: 10-29-2022 Telephone encounter Mynor Shirley MD Work Phone: Cardiology Comment on above: Schedule Surgery ([place] R) Start: 10-28-2022 Orders Only Mynor gomez MD Work Phone: Cardiology Comment on above: Paroxysmal atrial fi brillation (HCC) (Primary Dx); Paroxysmal atrial tachycardia (HCC) Start: 10-22-2022 Telephone encounter Elizabeth STEVENSC Work Phone: [facility] Comment on above: Patient Update Start: 10-21-2022 Telephone encounter Elizabeth DENNIS-C Work Phone: [facility] Comment on above: Physical Therapy Paroxysmal atrial ta chycardia (HCC) (Primary Dx); Paroxysmal atrial fibrillation (HCC) Start: 10-13-2022 End: 10-14-2022 Emergency department patient visit PA NA Dale PA Work Phone: [facility]Emergency Department Start: 10-13-2022 Non-patient / Non-visit PA NA Dale PA Work Phone: [facility] Inpatient Physicians Start: 10-13-2022 Non-patient / Non-visit PA NA Dale PA Work Phone: [facility] Start: 10-12-2022 Non-patient / Non-visit PA NA Dale PA Work Phone: [facility] Start: 10-12-2022 End: 10-13-2022 Evaluation and management of inpatient PA NA Dale PA Work Phone: [facility]-Progressive Care Unit Start: 10-12-2022 End: 10-13-2022 observation encounter PA Elizabeth Dale PA Work Phone: [facility] Work Phone: Start: 10-07-2022 End: 10-07-2022 Discharged Recurring PA NA Dale PA Work Phone: [facility]Labor[facility] Start: 10-07-2022 Registered Recurring PA ZAIRE Paul pollo PA Work Phone: [facility] Start: 09-08-2022 Telephone encounter Elizabeth DENNIS-C Work Phone: [facility] Comment on above: Patient Update Start: 09-08-2022 End: 09-08-2022 Emergency department patient visit PA ZAIRE Dale PA Work Phone: [facility]Emergency Department Start: 09-07-2022 End: 09-07-2022 Patient encounter procedure PA ZAIRE Dale PA Work Phone: [facility] Start: 08-20-2022 End: 08-20-2022 Discharged Recurring PA ZAIRE Dale PA Work Phone: [facility] Start: 08-01-2022 Telephone encounter Elizabeth Dale PA-C Work Phone: [facility] Comment on above: Results Start: 07-23-2022 End: 07-23-2022 ambulatory PA Elizabeth Reneeon PA Work Phone: [facility] Work Phone: Start: 07-23-2022 End: 07-23-2022 Discharged Recurring PA NA Dale PA Work Phone: [facility] Start: 06-04-2022 End: 06-04-2022 Patient encounter procedure PA NA Dale PA Work Phone: [facility] Start: 06-04-2022 End: 06-04-2022 ambulatory PA M Sakina Reneeon PA Work Phone: [facility] Work Phone: Start: 06-04-2022 End: 06-04-2022 Discharged Recurring PA NA Dale PA Work Phone: [facility] Start: 05-02-2022 End: 05-02-2022 ambulatory [facility] Work Phone: Start: 05-02-2022 End: 05-02-2022 Discharged Recurring [facility] Start: 04-02-2022 End: 04-02-2022 ambulatory [facility] Work Phone: Start: 04-02-2022 End: 04-02-2022 Discharged Recurring [facility] Start: 02-27-2022 End: 03-23-[address] Chaitanya Estrella III Work Phone: [facility] Start: 02-27-[address] Chaitanya Estrella III Work Phone: [facility] Start: 01-24-2022 Telephone encounter Ramila mosqueda FAST FOOD SERVER.FILE SYSTEM INSTALLER Work Phone: [facility] Comment on above: Results Start: 01-23-2022 Telephone encounter Ramila mosqueda FAST FOOD SERVER.FILE SYSTEM INSTALLER Work Phone: [facility] Comment on above: Xray Results Start: 01-23-2022 End: 01-23-2022 Subsequent hospital visit by physician Xr [facility] Work Phone: Radiology Comment on above: Acute pain of both k nixon [M25.561, M25.562] Start: 01-22-2022 End: 01-22-[address] Chaitanya Estrella III Work Phone: [facility] Start: 01-21-2022 End: 01-21-2022 Nursing evaluation of patient and report Nurse/[facility] Work Phone: Podiatry Comment on above: Plantar fasciitis (P rimary Dx) Start: 01-07-2022 End: 01-07-2022 Patient encounter procedure Elizabeth Dale PA-C Work Phone: [facility] Comment on above: Paroxysmal atrial fi brillation (HCC) (Primary Dx); Essential hypertension, benign; Closed fracture of one rib of right side with routine healing, subsequent encounter Start: 01-05-2022 End: 01-05-2022 Emergency department patient visit Dr. Chaitanya Estrella III Work Phone: [facility]Emergency Department Start: 01-02-2022 End: 01-02-[address] Chaitanya Estrella III Work Phone: [facility] Start: 01-02-[address] Chaitanya Estrella III Work Phone: [facility] Start: 12-18-2021 Non-patient / Non-visit Dr. Fr mary Estrella III Work Phone: [facility] Start: 12-18-2021 End: 12-18-[address] Chaitanya Estrella III Work Phone: [facility]Cardiovascula r Services Start: 12-17-2021 End: 12-17-[address] Chaitanya Estrella III Work Phone: [facility]-Pulmonary Medicine [facility] Start: 12-02-2021 End: 12-02-[address] Chait[facility] Estrella [facility] Start: 12-02-2021 End: 12-02-[address] Chaitanya Estrella III Work Phone: [facility] Start: 11-19-2021 End: 11-21-2021 [facility] Start: 10-16-2021 Registered Recurring [facility] Start: 10-08-2021 End: 10-08-2021 [facility] Start: 09-25-2021 End: 09-25-2021 [facility] Start: 09-06-2021 End: 09-06-2021 Subsequent hospital visit by physician Ovidio [facility] Work Phone: Radiology Comment on above: Unstable knee, right [M25.361] Start: 08-28-2021 End: 09-23-2021 [facility] Start: 08-21-2021 End: 08-24-2021 [facility] Date Procedure Procedure Detail Performing Clinician Start: 03-15-2025 Plain chest X-ray Bart Rosales NP-C Work Phone: Start: 03-15-2025 Urnls dip stick/tabl et reagent auto microscopy Bart Rosales RADIAL DRILL OPERATOR FOR PLASTIC-C Work Phone: Start: 11-28-2024 Plain chest X-ray Bart Rosales RADIAL DRILL OPERATOR FOR PLASTIC-C Work Phone: Start: 11-28-2024 Estimated creatinine clearance Bart Rosales RADIAL DRILL OPERATOR FOR PLASTIC-C Work Phone: Start: 11-09-2024 Mri brain brain stem w/o contrast material Moon Teixeira MD Work Phone: Start: 10-21-2024 Urnls dip stick/tabl et rgnt auto w/o microscopy José Miguel Saldaña APRN.FILE SYSTEM INSTALLER Work Phone: Start: 10-13-2024 Evaluation of diagno stic study results Bart Rosales RADIAL DRILL OPERATOR FOR PLASTIC-C Work Phone: Start: 10-11-2024 Measurement of renal function Bart Rosales RADIAL DRILL OPERATOR FOR PLASTIC-C Work Phone: Comment on above: GFR Calc Start: 09-26-2024 Plain chest X-ray Bart Rosales RADIAL DRILL OPERATOR FOR PLASTIC-C Work Phone: Start: 09-26-2024 Estimated creatinine clearance Bart Rosales RADIAL DRILL OPERATOR FOR PLASTIC-C Work Phone: Start: 09-26-2024 Measurement of renal function Bart Rosales RADIAL DRILL OPERATOR FOR PLASTIC-C Work Phone: Comment on above: GFR Calc Start: 07-26-2024 Radiologic exam ches t 2 views Yaa Ashby PA-C Work Phone: Start: 07-26-2024 Urnls dip stick/tabl et rgnt auto w/o microscopy Yaa Ashby PA-C Work Phone: Start: 04-23-2024 Radex ribs unilatera l 2 views oMon Teixeira MD Work Phone: Start: 07-15-2023 Radex wrist complete minimum 3 views Patrizia Alba FAST FOOD SERVER.FILE SYSTEM INSTALLER Work Phone: Start: 02-04-2023 Radex foot complete minimum 3 views Terri Hild DPM Work Phone: Start: 01-22-2023 Njx anes&/steroid pl gertrudis common digital nerve Terri Hild DPM Work Phone: Start: 01-21-2023 End: 01-21-2023 Radex foot complete minimum 3 views Terri Hild DPM Work Phone: Start: 12-30-2022 Radex foot complete minimum 3 views Elizabeth Dale PA-C Work Phone: Start: 10-13-2022 Plain chest X-ray PA ZAIRE Dale PA Work Phone: Start: 10-12-2022 Plain chest X-ray PA ZAIRE Dale PA Work Phone: Start: 09-08-2022 Plain chest X-ray PA ZAIRE Reneeon PA Work Phone: Start: 01-23-2022 Radiologic exam knee complete 4/more views Ramila Rosas ANANDA Work Phone: Start: 01-05-2022 X-ray of chest posteroanterior view Dr. Chaitanya Estrella III Work Phone: Start: 12-18-2021 Radionuclide imaging of perfusion of myocardium under exercise stress Dr. Chaitanya Estrella III Work Phone: Start: 09-06-2021 Radiologic exam knee complete 4/more views Elizabeth Sakina DENNIS-C Work Phone: Start: 05-22-2017 End: 05-22-2017 Radex hand minimum 3 views Keyanna Salinas Quyen icorelli Work Phone: Start: 05-22-2017 End: 05-22-2017 X-ray exam of hand Lata Chicorell i Work Phone: Start: 05-14-2017 End: 05-28-2017 *BMP Freddy Vo Work Phone: Start: 05-14-2017 End: 05-28-2017 25-Hydroxyvitamin D2+25-Hydroxyvitamin D3 [Mass/volume] in Serum or Plasma Freddy Costa MD Work Phone: Start: 05-14-2017 End: 05-28-2017 CBC W Auto Differential panel - Blood Freddy Costa MD Work Phone: Start: 05-14-2017 End: 05-19-2017 *BMP Freddy Vo Work Phone: Start: 05-14-2017 End: 05-19-2017 25-Hydroxyvitamin D2+25-Hydroxyvitamin D3 [Mass/volume] in Serum or Plasma Freddy Costa MD Work Phone: Start: 05-14-2017 End: 05-19-2017 CBC W Auto Differential panel - Blood Freddy Costa MD Work Phone: Plan of Treatment Date Care Activity Detail Author Start: 01-27-2028 Diabetes Screening Diabetes Screening [facility] Start: 02-09-2027 Diabetes Screening Diabetes Screening [facility] Start: 07-15-2026 Diabetes Screening Diabetes Screening [facility] Start: 01-26-2026 Annual PCP Team Chronic Disease Visit Annual PCP Team Chronic Disease Visit [facility] Start: 01-26-2026 BP Controlled (<130/80) BP Controlled (<130/80) [facility] Start: 12-01-2025 DIABETES SCREEN DIABETES SCREEN [facility] Start: 12-01-2025 Diabetes Screening Diabetes Screening [facility] Start: 10-26-2025 BP Controlled (<130/80) BP Controlled (<130/80) [facility] Start: 10-21-2025 Annual PCP Team Chronic Disease Visit Annual PCP Team Chronic Disease Visit [facility] Start: 08-08-2025 End: 08-08-2025 Patient encounter procedure Cardiology Comment on above: DX. Paroxysmal atrial fibrillation (HCC) Start: 08-08-2025 End: 08-08-2025 ambulatory 08/08/2025 11:15 AM EST Procedure Cardiology [address] [place] [address] DX. Paroxysmal atrial fibrillation (HCC) Cardiology Comment on above: DX. Paroxysmal atrial fibrillation (HCC) Start: 07-29-2025 DIABETES SCREEN DIABETES SCREEN [facility] Start: 07-26-2025 Annual PCP Team Chronic Disease Visit Annual PCP Team Chronic Disease Visit [facility] Start: 07-26-2025 BP Controlled (<130/80) BP Controlled (<130/80) [facility] Start: 06-27-2025 Annual PCP Team Chronic Disease Visit Annual PCP Team Chronic Disease Visit [facility] Start: 05-06-2025 Annual PCP Team Chronic Disease Visit Annual PCP Team Chronic Disease Visit [facility] Start: 05-06-2025 BP Controlled (<130/80) BP Controlled (<130/80) [facility] Start: 04-24-2025 Influenza vaccination Influenza Vaccine (#1) [facility] Start: 04-22-2025 Annual PCP Team Chronic Disease Visit Annual PCP Team Chronic Disease Visit [facility] Start: 04-22-2025 BP Controlled (<130/80) BP Controlled (<130/80) [facility] Start: 04-17-2025 End: 04-17-2025 Patient encounter procedure 04/17/2025 11:00 AM EDT Office Visit Podiatry [address] [place] [address] Daquan Buchanan [address] [place] [address] Matrixectomy great toe Podiatry Comment on above: Matrixectomy great toe Start: 04-05-2025 Annual PCP Team Chronic Disease Visit Annual PCP Team Chronic Disease Visit [facility] Start: 04-05-2025 BP Controlled (<130/80) BP Controlled (<130/80) [facility] Start: 03-27-2025 End: 03-27-2025 ambulatory 03/27/2025 10:45 AM EDT OT/PT/Speech Visit [facility] [address] [place] [address] Edgar Dave, PT [address], [place] [id number] M25.561,M25.562 (ICD-10-CM) - Pain in both knees, unspecified chronicity Pr [facility] Comment on above: M25.561,M25.562 (ICD-10-CM) - Pain in lizabeth th knees, unspecified chronicity Pr Start: 03-20-2025 End: 03-20-2025 ambulatory 03/20/2025 10:45 AM EDT OT/PT/Speech Visit [facility] [address] [place] [address] Edgar Dave, PT [address] [facility], [place] [id number] M25.561,M25.562 (ICD-10-CM) - Pain in both knees, unspecified chronicity Pr [facility] Comment on above: M25.561,M25.562 (ICD-10-CM) - Pain in lizabeth th knees, unspecified chronicity Pr Start: 03-15-2025 [facility] Start: 03-13-2025 End: 03-13-2025 ambulatory 03/13/2025 10:45 AM EDT OT/PT/Speech Visit [facility] [address] [place] [address] Edgar Dave, PT [address] [facility] [place] [address] M25.561,M25.562 (ICD-10-CM) - Pain in both knees, unspecified chronicity Pr [facility] Comment on above: M25.561,M25.562 (ICD-10-CM) - Pain in lizabeth th knees, unspecified chronicity Pr Start: 03-06-2025 End: 03-06-2025 ambulatory 03/06/2025 11:00 AM EDT OT/PT/Speech Visit [facility] [address] [place] [address] Dave Rosalee, PETROPHYSICIST [address] [facility] [place] [address] M25.561,M25.562 (ICD-10-CM) - Pain in both knees, unspecified chronicity Pr [facility] Comment on above: M25.561,M25.562 (ICD-10-CM) - Pain in lizabeth th knees, unspecified chronicity Pr Start: 03-02-2025 End: 03-02-2025 Patient encounter procedure 03/02/2025 3:30 PM EDT Office Visit Vasculary Surgery [address] [place] [address] Onychomycosis [B35.1] Vasculary Surgery Comment on above: Onychomycosis [B35.1] Start: 03-01-2025 End: 03-01-2025 Patient encounter procedure 03/01/2025 11:00 AM EDT Office Visit Geriatrics [address] [place] [address] Moon Teixeira MD [address] [place] [address] 4 mo follow up, mri review Geriatrics Comment on above: 4 mo follow up, mri review Start: 02-27-2025 End: 02-27-2025 ambulatory 02/27/2025 11:00 AM EDT OT/PT/Speech Visit [facility] [address] [place] [address] Rosalee Acosta, PETROPHYSICIST [address] [place] [address] M25.561,M25.562 (ICD-10-CM) - Pain in both knees, unspecified chronicity Pr [facility] Comment on above: M25.561,M25.562 (ICD-10-CM) - Pain in lizabeth th knees, unspecified chronicity Pr Start: 02-21-2025 End: 02-21-2025 ambulatory 02/21/2025 6:15 PM EDT OT/PT/Speech Visit [facility] [address] [place] [address] Barron Lilly, PT [address] [place], [place] [id number] M25.561,M25.562 (ICD-10-CM) - Pain in both knees, unspecified chronicity [facility] Comment on above: M25.561,M25.562 (ICD-10-CM) - Pain in lizabeth th knees, unspecified chronicity Start: 02-13-2025 End: 02-13-2025 ambulatory 02/13/2025 10:45 AM EDT OT/PT/Speech Visit [facility] [address] [place], [place] [id number] Barron Lilly, PT [address] [place] [address] M25.561,M25.562 (ICD-10-CM) - Pain in both knees, unspecified chronicity [facility] Comment on above: M25.561,M25.562 (ICD-10-CM) - Pain in lizabeth th knees, unspecified chronicity Start: 02-09-2025 Annual PCP Team Chronic Disease Visit Annual PCP Team Chronic Disease Visit [facility] Start: 02-08-2025 End: 02-08-2025 ambulatory 02/08/2025 12:15 PM EDT OT/PT/Speech Visit [facility] [address] [place] [address] Edgar Dave, PT [address] [place] [address] Chronic pain of both shoulders [M25.511, G89.29, M25.512] [facility] Comment on above: Chronic pain of both shoulders [M25.511, G89.29, M25.512] Start: 02-08-2025 End: 02-08-2025 ambulatory 02/08/2025 9:15 AM EDT OT/PT/Speech Visit [facility] [address] [place] [address] Edgar Dave, PT [address] [place] [address] Chronic pain of both shoulders [M25.511, G89.29, M25.512] [facility] Comment on above: Chronic pain of both shoulders [M25.511, G89.29, M25.512] Start: 01-18-2025 End: 01-18-2025 Patient encounter procedure 01/18/2025 11:20 AM EDT Office Visit Internal Medicine [place] [address] [place] [address] José Miguel Saldaña APRN.FILE SYSTEM INSTALLER [address] [place] [address] 3 mo follow up Internal Medicine [place] Comment on above: 3 mo follow up Start: 01-17-2025 End: 01-17-2025 Patient encounter procedure 01/17/2025 2:30 PM EDT Office Visit Vascular Surgery [address] [place] [address] Alec Arthur DO [address] [place] [address] veins Vascular Surgery Comment on above: veins Start: 01-03-2025 End: 04-04-2025 Basic metabolic 2000 panel - Serum or Plasma BASIC METABOLIC PANEL Lab Routine Essential hypertension Expected: 01/03/2025, Expires: 04/04/2025 [facility] Work Phone: Comment on above: Expected: 01/03/2025, Expires: Start: 01-03-2025 End: 04-04-2025 CBC panel - Blood by Automated count COMPLETE BLOOD COUNT Lab Routine Medication management Expected: 01/03/2025, Expires: 04/04/2025 [facility] Comment on above: Expected: 01/03/2025, Expires: Start: 11-29-2024 End: 11-29-2024 Patient encounter procedure 11/29/2024 2:00 PM EDT Office Visit Internal Medicine [place] [address] [place] [address] Moon Teixeira MD [address] [place] [place] [address] 6 month follow up Internal Medicine [place] Comment on above: 6 month follow up Start: 11-28-2024 [facility] Start: 11-28-2024 [facility] Start: 11-09-2024 End: 11-09-2024 Patient encounter procedure 11/09/2024 11:00 AM EDT Appointment Radiology [address] [place] [address] Transient cerebral ischemia, unspecified type [G45.9] Radiology Comment on above: Transient cerebral ischemia, unspecified type [G45.9] Start: 11-01-2024 End: 11-01-2024 Patient encounter procedure Cardiology Comment on above: DX: PAF Start: 11-01-2024 End: 11-01-2024 ambulatory 11/01/2024 2:30 PM EDT Results Only Cardiology [address] [place] [id number] DX: PAF Cardiology Comment on above: DX: PAF Start: 10-26-2024 End: 10-26-2024 Patient encounter procedure 10/26/2024 1:30 PM EST Office Visit Geriatrics [address] [place] [address] Moon Teixeira MD [address] [place] [address] Balance disorder [R26.89] Geriatrics Comment on above: Balance disorder [R26.89] Start: 09-29-2024 End: 09-29-2024 ambulatory 09/29/2024 3:00 PM EST OT/PT/Speech Visit [facility] [address] [place] [address] Barrie Clement, PT [address] [place] [address] Pain in both knees, unspecified chronicity [M25.561, M25.562] [facility] Comment on above: Pain in both knees, unspecified chronici ty [M25.561, M25.562] Start: 09-26-2024 [facility] Start: 09-26-2024 [facility] Start: 08-30-2024 End: 08-30-2024 Patient encounter procedure 08/30/2024 2:30 PM EST Office Visit Vasculary Surgery [address] [facility] [place] [address] Onychomycosis [B35.1] Vasculary Surgery Comment on above: Onychomycosis [B35.1] Start: 08-26-2024 DIABETES SCREEN DIABETES SCREEN [facility] Start: 08-24-2024 Advance Directive Discussion Advance Directive Discussion [facility] Start: 08-01-2024 End: 08-01-2024 Patient encounter procedure 08/01/2024 12:00 PM EST Office Visit [facility] [address] [place] [address] Gucci Emery LISW [address] [place] [address] [facility] Comment on above: follow up Start: 07-28-2024 End: 07-28-2024 Patient encounter procedure Podiatry Comment on above: Ingrown toenail f/u Start: 07-26-2024 End: 10-25-2024 Urinalysis complete panel - Urine URINALYSIS, WITH MICROSCOPIC Lab Routine Urinary urgency Microscopic hematuria Expected: 07/26/2024, Expires: 10/25/2024 [facility] Comment on above: Expected: 07/26/2024, Expires: Start: 07-18-2024 End: 07-18-2024 Patient encounter procedure 07/18/2024 11:00 AM EST Office Visit [facility] [address] [place] [address] Gucci Emery LISW [address] [place] [address] [facility] Comment on above: follow up Start: 07-15-2024 Annual PCP Team Chronic Disease Visit Annual PCP Team Chronic Disease Visit [facility] Start: 06-22-2024 RSV Vaccine (1 - 1-dose 60+ series) RSV Vaccine (1 - 1-dose 60+ series) [facility] Comment on above: Postponed from 2005 (Declined at t his time) Start: 06-22-2024 RSV Vaccine (1 - 1-dose 75+ series) RSV Vaccine (1 - 1-dose 75+ series) [facility] Comment on above: Postponed from 2020 (Declined at t his time) Start: 06-09-2024 Annual PCP Team Chronic Disease Visit Annual PCP Team Chronic Disease Visit [facility] Start: 06-09-2024 BP Controlled (<130/80) BP Controlled (<130/80) [facility] in Start: 06-09-2024 Urine microalbumin profile DTaP,Tdap,Td Vaccine (1 - Tdap) [facility] Comment on above: Postponed from 1964 (Declined at t his time) Start: 05-10-2024 End: 05-10-2024 Patient encounter procedure 05/10/2024 4:15 PM EDT Office Visit Vascular Surgery [address] [address] Alec Arthur DO [address] [place], [place] [id number] Left foot pain Vascular Surgery Comment on above: Left foot pain Start: 05-09-2024 End: 05-09-2024 Patient encounter procedure [facility] Comment on above: MIND BODY Essential hypertensi on [I10]; Paroxysmal atrial fibrillation (HCC) [I48.0] Start: 05-06-2024 End: 05-06-2024 Patient encounter procedure 05/06/2024 1:40 PM EDT Office Visit Internal Medicine [place] [address] [place], [place] [id number] Moon Teixeira MD [address] [place] [address] 4 wk follow up Internal Medicine [place] Comment on above: 4 wk follow up Start: 05-03-2024 End: 05-03-2024 Patient encounter procedure Cardiology Comment on above: DX: PAF Start: 05-03-2024 End: 05-03-2024 ambulatory 05/03/2024 12:45 PM EDT Results Only Cardiology [address] [place] [address] DX: PAF Cardiology Comment on above: DX: PAF Start: 05-02-2024 End: 05-02-2024 Patient encounter procedure 05/02/2024 12:00 PM EDT Office Visit [facility] [address] [place] [address] Gucci Emery LISW [address] [place] [address] [place], [place] [id number] MIND BODY [facility] Comment on above: MIND BODY Start: 04-24-2024 Influenza vaccination Influenza Vaccine (#1) [facility] Start: 04-18-2024 End: 04-18-2024 Patient encounter procedure 04/18/2024 12:00 PM EDT Office Visit [facility] [address] [place] [address] Gucci Emery LISW [address] [place] [address] [facility] Comment on above: MIND BODY Start: 04-05-2024 End: 07-05-2024 Cobalamin (Vitamin B12) [Mass/volume] in Serum or Plasma VITAMIN B12 Lab Routine Vitamin B12 deficiency Expected: 04/05/2024, Expires: 07/05/2024 [facility] Comment on above: Expected: 04/05/2024, Expires: Start: 04-05-2024 End: 07-05-2024 Ferritin [Mass/volume] in Serum or Plasma FERRITIN Lab Routine Iron deficiency Expected: 04/05/2024, Expires: 07/05/2024 [facility] Comment on above: Expected: 04/05/2024, Expires: Start: 04-05-2024 End: 07-05-2024 Iron and Iron binding capacity panel - Serum or Plasma IRON AND TIBC Lab Routine Iron deficiency Expected: 04/05/2024, Expires: 07/05/2024 [facility] Comment on above: Expected: 04/05/2024, Expires: Start: 04-05-2024 End: 07-05-2024 Thyrotropin [Units/volume] in Serum or Plasma THYROID STIMULATING HORMONE Lab Routine Weight gain Fatigue, unspecified type Expected: 04/05/2024, Expires: 07/05/2024 [facility] Comment on above: Expected: 04/05/2024, Expires: Start: 04-05-2024 End: 04-05-2024 Patient encounter procedure 04/05/2024 9:00 AM EDT Office Visit Internal Medicine [place] [address] [place] [address] Moon Teixeira MD [address] [place] [address] Establish Care (tele enc 01/01/24) [facility] [place] Comment on above: Establish Care (tele enc 01/01/24) Start: 04-04-2024 End: 04-04-2024 Patient encounter procedure 04/04/2024 12:00 PM EDT Office Visit [facility] [address] [place] [address] Gucci Emery LISW [address] [place], [place] [id number] [facility] Comment on above: MIND BODY Start: 03-18-2024 End: 03-18-2024 Patient encounter procedure 03/18/2024 10:00 AM EDT Office Visit Vasculary Surgery [address] [facility] [place] [address] Near syncope [R55] Vasculary Surgery Comment on above: Near syncope [R55] Start: 03-01-2024 End: 03-01-2024 ambulatory 03/01/2024 11:30 AM EDT OT/PT/Speech Visit [facility] [address] [facility] [place] [address] Tru Marquez PT Neck pain [M54.2] [facility] Comment on above: Neck pain [M54.2] Start: 02-22-2024 End: 02-22-2024 Patient encounter procedure 02/22/2024 10:30 AM EDT Office Visit Cardiology [address] [place] [address] CHE (dyspnea on exertion) [R06.09] Cardiology Comment on above: CHE (dyspnea on exertion) [R06.09] Start: 02-21-2024 Influenza vaccination Influenza Vaccine (#1) [facility] Comment on above: Postponed from 04/24/2023 (Declined at t his time) Start: 02-10-2024 End: 02-10-2024 Patient encounter procedure 02/10/2024 3:30 PM EDT Office Visit [facility] Cardiology [address] [place] [address] Pj Mejia MD [address] [place] [address] new patient referral [facility] Cardiology Comment on above: new patient referral Start: 02-10-2024 End: 05-11-2024 Comprehensive metabolic 2000 panel - Serum or Plasma [facility] Work Phone: Comment on above: Expected: 02/10/2024, Expires: Start: 02-10-2024 End: 05-11-2024 LIPID PANEL, NONFASTING [facility] Comment on above: Expected: 02/10/2024, Expires: Start: 01-26-2024 End: 01-26-2024 Patient encounter procedure 01/26/2024 4:00 PM EDT Office Visit Vascular Surgery [address] [address] Alec Arthur, DO [address] [place] [address] follow up Vascular Surgery Comment on above: follow up Start: 12-31-2023 ANNUAL PCP TEAM CHRONIC DISEASE VISIT ANNUAL PCP TEAM CHRONIC DISEASE VISIT [facility] Start: 12-09-2023 ANNUAL PCP TEAM CHRONIC DISEASE VISIT ANNUAL PCP TEAM CHRONIC DISEASE VISIT [facility] Start: 11-09-2023 End: 02-08-2024 Basic metabolic 2000 panel - Serum or Plasma BASIC METABOLIC PNL Lab Routine Polyuria Polydipsia Expected: 11/09/2023, Expires: 02/08/2024 [facility] Work Phone: Comment on above: Expected: 11/09/2023, Expires: Start: 11-09-2023 End: 02-08-2024 Hemoglobin A1c in Blood HGB A1C Lab Routine Polyuria Polydipsia Expected: 11/09/2023, Expires: 02/08/2024 [facility] Work Phone: Comment on above: Expected: 11/09/2023, Expires: 4 Start: 10-29-2023 BP CONTROLLED (<130/80) BP CONTROLLED (<130/80) [facility] Start: 10-21-2023 ANNUAL PCP TEAM CHRONIC DISEASE VISIT ANNUAL PCP TEAM CHRONIC DISEASE VISIT [facility] Start: 10-21-2023 BP CONTROLLED (<130/80) BP CONTROLLED (<130/80) [facility] Start: 08-24-2023 Advance Directive Discussion Advance Directive Discussion [facility] Start: 07-10-2023 ANNUAL PCP TEAM CHRONIC DISEASE VISIT ANNUAL PCP TEAM CHRONIC DISEASE VISIT [facility] Start: 07-10-2023 COVID-19 VACCINE (4 - Booster for Moderna series) COVID-19 VACCINE (4 - Booster for Moderna series) [facility] Comment on above: Postponed from 08/29/2021 (Declined at t his time) Start: 07-10-2023 COVID-19 VACCINE (4 - Moderna series) COVID-19 VACCINE (4 - Moderna series) [facility] Comment on above: Postponed from 08/29/2021 (Declined at t his time) Start: 06-09-2023 End: 09-08-2023 Comprehensive metabolic 2000 panel - Serum or Plasma COMP METABOLIC PANEL Lab Routine Essential hypertension Expected: 06/09/2023, Expires: 09/08/2023 [facility] Work Phone: Comment on above: Expected: 06/09/2023, Expires: 4 Start: 06-09-2023 End: 09-08-2023 Lipid 1996 panel - Serum or Plasma LIPID PANEL BASIC Lab Routine Hyperlipidemia, mixed Expected: 06/09/2023, Expires: 09/08/2023 [facility] Work Phone: Comment on above: Expected: 06/09/2023, Expires: 4 Start: 06-09-2023 End: 09-08-2023 Thyrotropin [Units/volume] in Serum or Plasma TSH BLD Lab Routine Hypothyroidism, acquired Expected: 06/09/2023, Expires: 09/08/2023 [facility] Work Phone: Comment on above: Expected: 06/09/2023, Expires: 4 Start: 04-24-2023 Influenza vaccination INFLUENZA (#1) [facility] Start: 01-23-2023 ANNUAL PCP TEAM CHRONIC DISEASE VISIT ANNUAL PCP TEAM CHRONIC DISEASE VISIT [facility] Start: 01-21-2023 End: 03-23-2023 C reactive protein [Mass/volume] in Serum or Plasma C-REACTIVE PROTEIN (CRP) Lab Routine Pain and swelling of toe, right Expected: 01/21/2023, Expires: 03/23/2023 [facility] Work Phone: Comment on above: Expected: 01/21/2023, Expires: 3 Start: 01-21-2023 End: 03-23-2023 CBC W Auto Differential panel - Blood CBC + DIFF Lab Routine Pain and swelling of toe, right Expected: 01/21/2023, Expires: 03/23/2023 [facility] Work Phone: Comment on above: Expected: 01/21/2023, Expires: 3 Start: 01-21-2023 End: 03-23-2023 Erythrocyte sedimentation rate SED RATE WESTERGREN Lab Routine Pain and swelling of toe, right Expected: 01/21/2023, Expires: 03/23/2023 [facility] Work Phone: Comment on above: Expected: 01/21/2023, Expires: 3 Start: 01-21-2023 End: 03-23-2023 Urate [Mass/volume] in Serum or Plasma URIC ACID BLOOD Lab Routine Pain and swelling of toe, right Expected: 01/21/2023, Expires: 03/23/2023 [facility] Work Phone: Comment on above: Expected: 01/21/2023, Expires: 3 Start: 01-07-2023 ANNUAL PCP TEAM CHRONIC DISEASE VISIT ANNUAL PCP TEAM CHRONIC DISEASE VISIT [facility] Start: 01-07-2023 BP CONTROLLED (<130/80) BP CONTROLLED (<130/80) [facility] Start: 01-07-2023 SHINGRIX VACCINE (2 of 3) SHINGRIX VACCINE (2 of 3) [facility] Comment on above: Postponed from 07/30/2013 (Insurance Cov erage) Start: 01-07-2023 Urine microalbumin profile DTAP,TDAP,TD (1 - Tdap) [facility] Comment on above: Postponed from 1964 (Insurance Cov erage) Start: 10-13-2022 [facility] Start: 10-13-2022 Patient discharge [facility] Start: 10-13-2022 Referral to occupational therapist [facility] Start: 10-13-2022 Referral to service [facility] Start: 10-12-2022 Ambulation without limitation [facility] Start: 10-12-2022 Assessment of risk of venous thromboembolism [facility] Start: 10-12-2022 Insertion of catheter into peripheral vein [facility] Start: 10-12-2022 Measuring intake and output [facility] Start: 10-12-2022 Providing care according to standard [facility] Start: 10-12-2022 [facility] Start: 10-12-2022 Following clinical pathway protocol [facility] Start: 10-12-2022 Verification routine [facility] Start: 10-12-2022 Admission procedure [facility] Start: 09-08-2022 [facility] Start: 08-24-2022 ADVANCE DIRECTIVE DISCUSSION ADVANCE DIRECTIVE DISCUSSION [facility] Start: 12-02-2021 Patient referral [facility] Work Phone: Start: 11-01-2021 COVID-19 VACCINE (4 - Booster for Moderna series) COVID-19 VACCINE (4 - Booster for Moderna series) [facility] Start: 08-24-2021 ADVANCE DIRECTIVE DISCUSSION ADVANCE DIRECTIVE DISCUSSION [facility] Start: 2020 RSV Vaccine (1 - 1-dose 75+ series) RSV Vaccine (1 - 1-dose 75+ series) [facility] Start: 06-05-2017 End: 06-05-2017 Appointment Appointment [facility] Work Phone: Start: 05-22-2017 End: 05-22-2017 Appointment Appointment [facility] Work Phone: Start: 05-14-2017 End: 05-19-2017 *BMP *BMP [facility] Work Phone: Start: 05-14-2017 End: 05-19-2017 25-Hydroxyvitamin D2+25-Hydroxyvitamin D3 [Mass/volume] in Serum or Plasma *Vitamin D (Calciferol) [facility] Work Phone: Start: 05-14-2017 End: 05-19-2017 CBC W Auto Differential panel - Blood *CBC without Diff [facility] Work Phone: Start: 05-14-2017 End: 05-14-2017 Follow up Appt 3 weeks Follow up Appt 3 weeks [facility] Work Phone: Start: 05-14-2017 End: 05-14-2017 Urinalysis complete panel - Urine *UAC- Urinalysis, Complete w/ Micro [facility] Work Phone: Start: 05-14-2017 End: 05-14-2017 Appointment Appointment [facility] Work Phone: Start: 05-14-2017 End: 05-19-2017 *BMP *BMP [facility] Work Phone: Start: 05-14-2017 End: 05-19-2017 25-Hydroxyvitamin D2+25-Hydroxyvitamin D3 [Mass/volume] in Serum or Plasma *Vitamin D (Calciferol) [facility] Work Phone: Start: 05-14-2017 End: 05-19-2017 CBC W Auto Differential panel - Blood *CBC without Diff [facility] Work Phone: Start: 05-14-2017 End: 05-14-2017 Follow up Appt 3 weeks Follow up Appt 3 weeks [facility] Work Phone: Start: 05-14-2017 End: 05-14-2017 Urinalysis complete panel - Urine *UAC- Urinalysis, Complete w/ Micro [facility] Work Phone: Start: 09-10-2016 End: 09-10-2016 Physical Therapy General Physical Therapy [facility], [address] [place] [address], [address] [facility] Work Phone: Start: 09-10-2016 End: 09-10-2016 Physical Therapy General Physical Therapy [facility], [address] [place] [address], [address] [facility] Work Phone: Start: 09-04-2016 End: 09-04-2016 Radex hip unilateral with pelvis 2-3 views X-Ray, Hip, unilateral, with pelvis; 2-3 views [facility] Work Phone: Start: 09-04-2016 End: 09-04-2016 X-Ray, Hip, unilateral, with pelvis; 2-3 views X-Ray, Hip, unilateral, with pelvis; 2-3 views [facility] Work Phone: Start: 08-10-2014 End: 08-10-2014 Documentation of current medications SNOMED-CT: [id number] Current Medications Documented [facility] Work Phone: Start: 08-10-2014 End: 08-10-2014 Mri spinal canal cervical w/o contrast matrl MRI Cervical Spine [facility] Work Phone: Start: 08-10-2014 End: 08-10-2014 Radex spine cervical 2 or 3 views X-Ray, Spine, Cervical [facility] Work Phone: Start: 08-10-2014 End: 08-10-2014 Documentation of current medications SNOMED-CT: [id number] Current Medications Documented [facility] Work Phone: Start: 08-10-2014 End: 08-10-2014 Mri neck spine w/o dye MRI Cervical Spine [facility] Work Phone: Start: 08-10-2014 End: 08-10-2014 X-ray exam of neck spine X-Ray, Spine, Cervical [facility] Work Phone: Start: 07-30-2013 SHINGRIX VACCINE (2 of 3) SHINGRIX VACCINE (2 of 3) [facility] Start: 11-22-2010 Medicare Annual Wellness Visit Medicare Annual Wellness Visit [facility] Start: 1964 Urine microalbumin profile [facility] Start: 12-01-1963 Anxiety Screening Anxiety Screening [facility] Start: 12-01-1963 BP CONTROLLED (<130/80) BP CONTROLLED (<130/80) [facility] Start: 12-01-1963 SPIROMETRY SPIROMETRY [facility] Bacteria identified in Urine by Culture URINE CULTURE Microbiology Routine Urinary urgency Urge incontinence 07/26/2024 10:18 AM EST [facility] End: 10-21-2023 ECG COMPLETE ECG COMPLETE ECG Routine Paroxysmal atrial tachycardia (HCC) Paroxysmal atrial fibrillation (HCC) 1 Occurrences starting 10/21/2022 until 10/21/2023 [facility] Work Phone: Comment on above: 1 Occurrences starting 10/21/2022 until 10/21/2023 End: 10-29-2023 ECG COMPLETE ECG COMPLETE ECG Routine Paroxysmal atrial fibrillation (HCC) Paroxysmal atrial tachycardia (HCC) 1 Occurrences starting 10/28/2022 until 10/29/2023 [facility] Work Phone: Comment on above: 1 Occurrences starting 10/28/2022 until 10/29/2023 End: 10-21-2024 ECG COMPLETE ECG COMPLETE ECG Routine Paroxysmal atrial fibrillation (HCC) Paroxysmal atrial tachycardia (HCC) 1 Occurrences starting 10/21/2023 until 10/21/2024 [facility] Work Phone: Comment on above: 1 Occurrences starting 10/21/2023 until 10/21/2024 End: 05-03-2025 ECG COMPLETE ECG COMPLETE ECG Routine Moderate episode of recurrent major depressive disorder (HCC) 1 Occurrences starting 05/03/2024 until 05/03/2025 [facility] Work Phone: Comment on above: 1 Occurrences starting 05/03/2024 until 05/03/2025 End: 12-30-2025 ECG COMPLETE ECG COMPLETE ECG Routine Paroxysmal atrial fibrillation (HCC) 1 Occurrences starting 12/30/2024 until 12/30/2025 [facility] Work Phone: Comment on above: 1 Occurrences starting 12/30/2024 until 12/30/2025 End: 02-09-2025 Echocardiography ECHO Cardiology Routine CHE (dyspnea on exertion) Near syncope Lightheadedness 1 Occurrences starting 02/10/2024 until 02/09/2025 [facility] Comment on above: 1 Occurrences starting 02/10/2024 until 02/09/2025 End: 11-25-2025 MR Brain WO contrast MRI BRAIN WO IVCON Radiology Routine Transient cerebral ischemia, unspecified type 1 Occurrences starting 10/26/2024 until 11/25/2025 [facility] Work Phone: Comment on above: 1 Occurrences starting 10/26/2024 until 11/25/2025 End: 02-20-2024 MRI FOOT/TOES WO IVCON RIGHT MRI FOOT/TOES WO IVCON RIGHT Radiology SU Pain and swelling of toe, right Other acute osteomyelitis of right foot (HCC) 1 Occurrences starting 01/21/2023 until 02/20/2024 [facility] Work Phone: Comment on above: 1 Occurrences starting 01/21/2023 until 02/20/2024 Patient Education [facility] Work Phone: Patient referral [facility] Work Phone: Polysomnography [facility] Work Phone: SWALLOW EVALUATION SWALLOW EVALU ATION Procedures Routine Cough, unspecified type Ordered: 05/17/2024 [facility] Work Phone: Comment on above: Ordered: 05/17/2024 UA DIP B/O UA DIP B/O Lab R outine Urinary urgency Urge incontinence Ordered: 07/26/2024 [facility] Work Phone: Comment on above: Ordered: 07/26/2024 Urinalysis complete panel - Urine URINALYSIS (WITH MICROSCOPIC) WITH CULTURE IF INDICATED Lab Routine Balance disorder Hematuria, unspecified type 10/21/2024 12:19 PM EST [facility] Work Phone: End: 02-09-2025 US Carotid arteries - bilateral US CAROTID ARTERIES [facility] Lab Routine Near syncope Lightheadedness 1 Occurrences starting 02/10/2024 until 02/09/2025 [facility] Comment on above: 1 Occurrences starting 02/10/2024 until 02/09/2025 End: 07-28-2025 US.doppler Extremity arteries - bilateral for physiologic artery study PVR ANK PRESS [facility] V[facility] Lab Routine Onychomycosis Diminished pulses in lower extremity 1 Occurrences starting 07/28/2024 until 07/28/2025 [facility] Work Phone: Comment on above: 1 Occurrences starting 07/28/2024 until 07/28/2025 End: 05-05-2025 XR Esophagus Views W contrast PO XR ESOPHAGRAM Radiology Routine Dysphagia, unspecified type Choking episode 1 Occurrences starting 04/05/2024 until 05/05/2025 [facility] Work Phone: Comment on above: 1 Occurrences starting 04/05/2024 until 05/05/2025 End: 01-29-2024 XR FOOT GENERAL 3V AP/LAT/OBL RIGHT XR FOOT GENERAL 3V AP/LAT/OBL RIGHT Radiology Routine Foot injury, right, initial encounter 1 Occurrences starting 12/30/2022 until 01/29/2024 [facility] Work Phone: Comment on above: 1 Occurrences starting 12/30/2022 until 01/29/2024 XR FOOT GENERAL 3V AP/LAT/OBL RIGHT XR FOOT GENERAL 3V AP/LAT/OBL RIGHT Radiology Routine Foot injury, right, initial encounter 12/30/2022 4:05 PM EDT [facility] Work Phone: End: 05-22-2025 XR Ribs - left 2 Views XR RIBS 2V AP/OBL LEFT Radiology Routine Rib pain Muscle spasm 1 Occurrences starting 04/22/2024 until 05/22/2025 [facility] Work Phone: Comment on above: 1 Occurrences starting 04/22/2024 until 05/22/2025 End: 07-27-2025 XR Ribs - left 2 Views XR RIBS 2V AP/OBL LEFT Radiology Routine Fall, sequela Painful rib 1 Occurrences starting 06/27/2024 until 07/27/2025 [facility] Work Phone: Comment on above: 1 Occurrences starting 06/27/2024 until 07/27/2025 XR Ribs - left 2 Views XR RIBS 2 V AP/OBL LEFT Radiology Routine Fall, sequela Painful rib 06/27/2024 11:26 AM EST [facility] End: 08-13-2024 XR WRIST GENERAL 3V PA/LAT/OBL RIGHT XR WRIST GENERAL 3V PA/LAT/OBL RIGHT Radiology Routine Right wrist pain 1 Occurrences starting 07/15/2023 until 08/13/2024 [facility] Work Phone: Comment on above: 1 Occurrences starting 07/15/2023 until 08/13/2024 XR WRIST GENERAL 3V PA/LAT/OBL RIGHT XR WRIST GENERAL 3V PA/LAT/OBL RIGHT Radiology Routine Right wrist pain 07/15/2023 10:57 AM EST [facility] Work Phone: [facility] Immunizations Immunization Date Immunization Notes Care Provider [facility] 09-09-2024 Seasonal trivalent influenza vaccine, adjuvanted, preservative free Moon Teixeira MD Work Phone: [facility] 09-09-2024 influenza virus vacc ine, unspecified formulation Daquan Buchanan Work Phone: [facility] 07-29-2023 influenza (HD-IIV4) vaccine, age 65+ yr, high dose, quadrivalent, PF (FLUZONE HIGH-DOSE) ZAIRE Dale PA-C Work Phone: [facility] 07-29-2023 influenza virus vacc ine, unspecified formulation Nirali Almanza PA-C Work Phone: [facility] 07-24-2022 influenza, injectabl e, quadrivalent, preservative free [facility] 07-24-2022 influenza, seasonal, injectable PA ZAIRE DENNIS Work Phone: [facility] 07-24-2022 influenza virus vacc ine, unspecified formulation Linda Schrader [facility] Work Phone: [facility] 07-10-2022 influenza, high-dose , quadrivalent vaccine (FLUZONE HIGH DOSE QUADRIVALENT) NA Dale PA-C Work Phone: [facility] 08-22-2021 influenza, high-dose , quadrivalent vaccine (FLUZONE HIGH DOSE QUADRIVALENT) NA Dale PA-C Work Phone: [facility] 07-04-2021 COVID-19 vaccine, fu ll dose (MODERNA) NA Dale PA-C Work Phone: [facility] 10-22-2020 COVID-19 vaccine, fu ll dose (MODERNA) NA Dale PA-C Work Phone: [facility] 09-24-2020 COVID-19 vaccine, fu ll dose (MODERNA) NA Dale PA-C Work Phone: [facility] 06-15-2020 influenza, high-dose , quadrivalent vaccine (FLUZONE HIGH DOSE QUADRIVALENT) NA Dale PA-C Work Phone: [facility] 08-11-2019 influenza, high dose seasonal, preservative-free NA Dale PA-C Work Phone: [facility] 06-16-2018 influenza, high dose seasonal, preservative-free NA Dale PA-C Work Phone: [facility] 08-20-2017 pneumococcal polysaccharide vaccine, 23 valent NA Dale PA-C Work Phone: [facility] 06-22-2017 influenza, high dose seasonal, preservative-free NA Dale PA-C Work Phone: [facility] 01-11-2016 pneumococcal conjuga te vaccine, 13 valent NA Dale PA-C Work Phone: [facility] 06-04-2013 influenza virus vacc ine, unspecified formulation NA Dale PA-C Work Phone: [facility] 06-04-2013 zoster vaccine, live NA Víctor on PA-C Work Phone: [facility] 06-07-2010 influenza virus vacc ine, unspecified formulation ZAIRE STEVENSTriny Work Phone: [facility] Work Phone: 09-26-2009 pneumococcal polysaccharide vaccine, 23 valent ZAIRE STEVENSTriny Work Phone: [facility] 07-03-2009 novel influenza-H1N1 -09, all formulations ZAIRE STEVENSTriny Work Phone: [facility] Payers Date Payer Category Payer Self-pay [id number] 1997 [facility] FEP PPO [id number] 1997 Unknown [facility] FEP PPO [id number] 1997-Present [phone] [place] [address] [facility] [id number] 1997 Unknown [facility] BS FEP PPO [id number] 1997-Present [phone] [place] [address] [facility] [id number] 1997 Unknown [id number] Medicare [id number] Unknown [id number] [id number]. 2.462 Unknown [id number] 2.16.840.1.505716.3.579. 2.462 Unknown [id number] 2.16.840.1.415064.3.579. 2.462 Unknown [id number] 2.16.840.1.576778.3.579. 2.462 Unknown [id number] 2.16.840.1.463492.3.579. 2.462 Unknown [id number] 2.16.840.1.774452.3.579. 2.462 Unknown [id number] 2.16.840.1.430841.3.579. 2.462 Unknown [id number] 2.16.840.1.127497.3.579. 2.462 Unknown [id number] 2.16.840.1.219833.3.579. 2.462 Unknown [id number] 2.16.840.1.195785.3.579. 2.462 Unknown [id number] 2.16.840.1.636986.3.579. 2.462 Unknown [id number] 2.16.840.1.047641.3.579. 2.462 Unknown [id number] 2.16.840.1.492393.3.579. 2.462 Unknown [id number] 2.16.840.1.578492.3.579. 2.462 Unknown [id number] 2.16.840.1.697683.3.579. 2.462 Unknown [id number] 2.16.840.1.950154.3.579. 2.462 Unknown [id number] 2.16.840.1.364588.3.579. 2.462 Unknown [id number] 2.16.840.1.747475.3.579. 2.462 Unknown [id number] 2.16.840.1.139457.3.579. 2.462 Unknown [id number] 2.16.840.1.435405.3.579. 2.462 Unknown [id number] 2.16.840.1.736239.3.579. 2.462 Unknown [id number] 2.16.840.1.428417.3.579. 2.462 Unknown [id number] 2.16840.1.488010.3.579. 2.462 Unknown [id number] 2.16.840.1.074071.3.579. 2.462 Social History Date Type Detail Facility Start: 03-21-2021 End: 08-09-2023 Tobacco smoking status WYIS Unknown if ever smoked [facility] Start: 10-14-2018 Occasional [facility] Start: 03-10-2016 None [facility] Start: 06-07-2019 Alone [facility] Start: 08-22-2019 Non-smoker [facility] Start: 1945 Sex Assigned At Female W [facility] Start: 07-10-2022 End: 03-15-2025 Tobacco smoking status NHIS Never smoked tobacco [facility] Start: 01-07-2022 End: 01-26-2025 Alcohol intake Ex-drinker (finding) [facility] Start: 1945 Sex Assigned At Not on file [facility] Start: 08-06-2021 End: 07-10-2022 Exposure to SARS-CoV-2 (event) Not sure [facility] Start: 05-12-2014 End: 07-10-2022 Tobacco use and exposure Smokeless tobacco non-user [facility] Start: 12-30-2022 End: 05-03-2024 History of Social function [facility] Start: 12-30-2022 End: 05-03-2024 Tobacco use panel [facility] Adult Depression Screening Assessment 0 [facility] Start: 11-18-2024 End: 11-28-2024 Sex Female (finding) [facility] Medical Equipment Procedure Code Equipment Code Equipment Origin al Text Equipment Identifier Dates Loop Recorder-Ln q22 Linq [id number] Start: 12-01-2022 Goals Date Patient Goal Desired Activity /State Personal health goal Functional Status Date Assessment Result Facility 10-13-2022 Functional status Chair [facility] Work Phone: 01-05-2015 Are you deaf, or do you have serious difficulty hearing No 01/05/2015 9:03 AM EDT Allie De Leon [facility] No [facility] 01-05-2015 Are you blind, or do you have serious difficulty seeing, even when wearing glasses No 01/05/2015 9:03 AM EDT Allie De Leon [facility] No [facility] 01-05-2015 Do you have serious difficulty walking or climbing stairs No 01/05/2015 9:03 AM EDT Allie De Leon [facility] No [facility] 01-05-2015 Do you have difficul ty dressing or bathing Yes 01/05/2015 9:03 AM EDT Allie De Leon Cma Yes [facility] 01-05-2015 Because of a physica l, mental, or emotional condition, do you have difficulty doing errands alone such as visiting a physician's office or shopping No 01/05/2015 9:03 AM EDT Allie De Leon [facility] No [facility] Mental Status Date Assessment Result Facility 03-15-2025 Cognitive function Level Of Cons ciousness Awake;Alert;Appropriate;Fol lows Commands [facility] Work Phone: 10-13-2022 Cognitive function Level Of Cons ciousness Awake;Alert;Appropriate;Fol lows Commands [facility] Work Phone: 10-12-2022 Cognitive function Voice/Name [facility] Work Phone: 10-12-2022 Cognitive function Level Of Cons ciousness Awake;Alert;Appropriate;Fol lows Commands [facility] Work Phone: 01-05-2015 Because of a physica l, mental, or emotional condition, do you have serious difficulty concentrating, remembering, or making decisions No 01/05/2015 9:03 AM EDT Allie De Leon Cma [facility] Clinical Notes 03-01-2014 to 03-15-2025 Note Date & Type Note Facility 03-15-2025 Discharge summary [facility] 03-15-2025 Radiology Diagnostic study note [facility] Imaging Services [address] [place] [address] Chest 1 View (Portable) MR#: [id number] Acct: [id number] Name: CADY BERUMEN Rep #: [id number] : 1945 F 79 From: Rafa Ortiz MD PCP: Dr. Moon Teixeira MD Status: REG E R Study:Chest 1 View (Portable) Date of Exam: 03/15/25 Exam# [id number] Ordering Dr: Rad Kelsey DO PROCEDURE: CHEST 1 VIEW (PORTABLE) 03/15/2025 REASON FOR EXAM: HYPOTENSION TECHNIQUE: Frontal view of the chest. COMPARISON: 11/28/2024 FINDINGS: Lungs/Pleura: Clear. No pneumothorax or sizable pleural effusion. Heart/Mediastinum: Cardiomegaly. No significant vascular congestion. Calcification of the aortic arch. Cardiac loop recorder device projects over the left chest wall. Bones/Soft tissues: Mild degenerative changes of the spine. RAD/Chest 1 View (Portable) IMPRESSION: Cardiomegaly. No acute pulmonary disease. Reading Location: [id number] CC: Dr. Moon Teixeira MD; Dr. Johnie Kelsey DO ~ Audit Director: Signed [facility] 03-15-2025 Discharge summary Note Date/Time March 15, 2025 6:28pm [facility] Medical Records Department [address] [place] [address] Emergency Department Summary 03/15/25 MR#: [id number] Acct: [id number] Name: CADY BERUMEN Rep #:[id number] : 1945 79 From: Johnie Dia PCP: Dr. Moon Teixeira MD Status:REG E R Location: ED HPI History of Present Illness Chief Complaint: Hypotension [facility] Medical History Shortness of breath PRAMOD (obstructive sleep apnea) long term (current) use of 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 Paroxysmal atrial fibrillation Change in bowel habit Asthma Near syncope Atrial tachycardia (10/14/18) Varicose vein of leg Vestibular neuritis Osteopenia Osteoarthritis Chronic venous insufficiency Glaucoma Essential (primary) hypertension Home Medications ?Medication ?Instructions ?Recorded ?Last Taken ?Type cholecalciferol (vitamin D3) 25 1,000 unit PO DAILY vi tamin 03/10/16 03/14/25 History mcg (1,000 unit) tablet latanoprost 0.005 % eye drops 1 drp EACH EYE QHS eye h ealth 03/10/16 03/14/25 History coenzyme Q10 50 mg chewable tablet 30 mg PO DAILY 05/2403/14/25 History metoprolol tartrate 25 mg tablet 12.5 mg (1/2 x 25 mg) PO BID PRN 09/09/24 11/28/24 Rx afib #180 tabs timolol maleate 0.5 % eye drops 1 drp ophthalmic (eye) BID 09/26/24 03/15/25 History warfarin 5 mg tablet 7.5 mg PO SUTUTHSA 11/28/24 03/14/25 History warfarin 5 mg tablet 5 mg PO .COMPLEX #120 tabs 0 01/26/25 03/14/25 Rx ascorbic acid (vitamin C) 500 mg 1 g PO DAILY 03/15/25 Unknown History tablet (C-500) Allergy/AdvReac Type Severity Reaction Status Date / Time cat dander Allergy Mild congestion Verified 03/15/25 14:41 grass pollen Allergy Mild Cough, Verified 03/15/25 14:41 rhinitis house dust Allergy Mild Cough, Verified 03/15/25 14:41 rhinitis mold Allergy Mild Cough, Verified 03/15/25 14:41 rhinitis tree and shrub pollen Allergy Mild Cough, Verified 03/15/25 14:41 rhinitis Sulfa (Sulfonamide Allergy Itching Verified 03/15/25 14:41 Antibiotics) losartan AdvReac Severe dizziness, Verified 03/15/25 14:41 severe amlodipine AdvReac Intermediate dizziness Verified 03/15/25 14:41 lisinopril AdvReac Intermediate Nagging Verified 03/15/25 14:41 dry cough Benzodiazepines AdvReac Other Verified 03/15/25 14:41 diazepam (From Valium) AdvReac Other Verified 03/15/25 14:41 Family History Father Myocardial infarction from [place] age 61 Heart disease Diabetes Sister Breast cancer Other senior care (current) use of 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 Surgical History history vein surgery history TMJ surgery History of cataract surgery S/P excision of Ramos's neuroma History of carpal tunnel release History of tonsillectomy Social History household members: spouse housing: house Smoking Status: Never smoker alcohol intake: current alcohol intake frequency: a few times a month substance use type: does not use what type of physical activity do you participate in: none do you feel safe at home: Yes EXAM Physical Exam Const Vital Signs: 03/15/25 14:39 03/15/25 15:54 03/15/25 15:54 Temperature 98.2 F 98.2 F Temperature Source Oral Oral Pulse Rate 61 56 L Respiratory Rate 16 18 Respiratory Effort Normal Respiratory Pattern Normal Blood Pressure 144/67 H 152/73 H Blood Pressure Mean 92 99 Pulse Ox 98 99 Oxygen Delivery Method Room Air Room Air 03/15/25 16:00 03/15/25 17:00 03/15/25 18:00 Temperature 98.2 F 98.2 F Temperature Source Oral Oral Pulse Rate 57 L 63 61 Respiratory Rate 18 13 15 Respiratory Effort Respiratory Pattern Blood Pressure 140/93 H 161/78 H 135/75 H Blood Pressure Mean 108 105 95 Pulse Ox 97 97 98 Oxygen Delivery Method Room Air Room Air Room Air MDM MDM MDM Narrative Medical decision making narrative: HISTORY OF PRESENT ILLNESS: Chief complaint: Hypotension 79-year-old female presents with concern for hypHistory of asthma, chronic anticoagulation secondary to A-fib, hypertension on metoprolol 12-1/2 mg twice daily as needed. Notes low blood pressures at home. States she feels diffuselyweak all her blood pressure been low. The lowest pressure was 89/66 per her blood pressure machine. Denies recent illness. Denies vomiting or diarrhea. Denies decreased p.o. intake. Denies chest pain palpitations. Denies shortnessof breath cough or fever. Denies lower extremity edema. Notes compliance with medications. No bleeding diathesis noted. No recent falls or new neck or back pain noted REVIEW OF SYSTEMS: Pertinent positives: Hypotension, diffuse weakness Pertinent negatives: As per HPI PHYSICAL EXAM: Nursing triage notes reviewed, Vital signs reviewed Constitutional: please see [facility] HENT: MMM Eyes: Pupils equal round and reactive to light, Extraocular muscles intact Neck: No stridor, no JVD, full neck ROM Lungs: Clear to auscultation, No wheezing or rales. No increased work of breathing, no conversational dyspnea, no accessory muscle use, no nasal flaring. No respiratory distress noted Heart: Regular rate and rhythm, No murmurs, No rubs and No gallops, 2+ distal pulses (radial, femoral, posterior tibial) in all extremities Abdomen: Soft, there is no tenderness, rigidity, rebound or guarding, no obviousperitoneal signs, no palpable pulsatile abdominal masses, no auscultated abdominal bruit : No CVAT Extremities: No edema Neuro: No new focal neurological deficits, cranial nerves II through XII intact,5/5 strength in all present extremities. Intact sensation to light touch in all present extremities, 2+ reflexes bilateral patella tendons. Skin: No rash or lesions noted MEDICAL DECISION MAKING: Chief Complaint: please see [facility] External records reviewed: Reviewed per echocardiogram from October 2024 shows ejection fraction 70% stage I diastolic dysfunction Factors affecting care: no as per [facility] Social determinants of health: none History obtained from others: none Consults: none [facility] Narrative: Patient was initially hemodynamically stable, afebrile and nontoxic-appearing. No focal cardiopulmonary, neurologic or hematologic abnormalities noted on initial exam I considered the following differential diagnosis: Distributive shock, obstructive shock, hemorrhagic shock, neurogenic shock, cardiogenic shock IV monitor placed The patient's history and physical exam not consistent with neurogenic shock. There is no trauma or new neck or back pain to suggest neurogenic shock I obtained a broad lab and imaging work to further determine if the patient was suffering from a life-threatening etiology. Initially assessed the patient with 500 cc normal saline bolus ALL IMAGES (IF OBTAINED) HAVE BEEN PERSONALLY REVIEWED AND INTERPRETED BY MYSELF. EKG with normal sinus rhythm rate of 60, left axis deviation, normal intervals, parable 200, QTc 404, no STEMI or obvious ischemic changes noted. This makes cardiac shock less likely High-sensitivity troponin is negative, no evidence of myocardial ischemia x2 Lactate is wnl indicating no end-organ hypoperfusion and/or hypoxia. I have personally reviewed the patient's chest x-ray. Chest x-ray is unremarkable for pulmonary edema, pneumothorax, pneumonia or focal cardiopulmonary abnormality. CBC with no leukocytosis, mild anemia (essentially baseline) with no INR therapeutic, no coagulopathy CMP without evidence of acute kidney injury, significant electrolyte abnormality, anion gap to suggest end organ hypo-perfusion, no evidence of metabolic acidosis with a normal bicarbonate, no evidence of hepatobiliary obstructive pathology. Urinalysis shows no evidence of urinary inflammation suggestive of UTI The synthesis of the patient's history, physical exam, labs images suggest no acute life or limb threat in etiology specifically no sign of any shock process. Repeat blood pressure 135/75. Patient is appropriate discharge home. The patient and/or family, caregivers express understanding. The patient and/orfamily, caregivers agrees with the plan. Shared decision making: I will have a discussion with the patient and or visitors regarding risk/benefits of further testing or admission. They will be made aware of of the risk/benefits inherent in this decision they will be given the opportunity to voice understanding. Total critical care time today provided was at least 0 minutes. This excludes separately billable procedures. Critical care time (if documented) is secondary to the patient having high probability of clinically significant/life threatening deterioration in the patient's condition which required my urgent intervention. Impression: 1. Hypotension (resolved) 2. History of chronic anticoagulation Dispo: discharge This note was generated with [employer] dictation software. It may contain incorrectwords, spelling, and punctuation that were not noted in review of the chart prior to signing. Lab Data Labs: Laboratory Results - last 24 hr 03/15/25 03/15/25 03/15/25 15:45 15:47 17:50 WBC 5.2 RBC 3.55 L Hgb 11.2 L Hct 35.1 L MCV 98.9 MCH 31.5 MCHC 31.9 L RDW Std Deviation 49.9 H RDW Coeff of Dulce 13.5 Plt Count 164 MPV 13.1 H Immature Gran % (Auto) 0.400 Neut % (Auto) 56.5 Lymph % (Auto) 25.9 Bent % (Auto) 13.1 H Eos % (Auto) 3.1 Baso % (Auto) 1.0 Absolute Neuts (auto) 2.9 Absolute Lymphs (auto) 1.34 Nucleated RBC % 0 PT 26.7 H INR 2.4 Sodium 138 Potassium 4.3 Chloride 103 Carbon Dioxide 24.0 Anion Gap 10 BUN 29 H Creatinine 0.86 Est GFR (MDRD) Non-Af 69 BUN/Creatinine Ratio 33.3 H Glucose 90 Lactic Acid < 1.0 Calcium 9.1 Total Bilirubin 0.33 AST 15 ALT 12 Alkaline Phosphatase 76 Troponin T High Sens 9 Troponin T Hi Sens 2 Hr 10 Total Protein 6.6 Albumin 3.9 Globulin 2.7 Albumin/Globulin Ratio 1.5 Urine Color Straw Urine Clarity Clear Urine pH 6.0 Ur Specific [place] 1.010 Urine Protein Negative Urine Glucose (UA) Normal Urine Ketones Negative Urine Occult Blood 10 H Urine Nitrite Negative Urine Bilirubin Negative Urine Urobilinogen Normal Ur Leukocyte Esterase Negative Radiography Diagnostic Testing: Clinical Impression(s) from Imaging Studies Chest X-Ray 03/15/25 16:25 IMPRESSION: Cardiomegaly. No acute pulmonary disease. Reading Location: [id number] Discharge Plan Triage Chief Complaint: Hypotension ED Provider: Johnie Kelsey Dx/Rx/DC Orders Prescriptions: No Action latanoprost 1 DROP bottle 1 drp EACH EYE QHS cholecalciferol (vitamin D3) 1,000 UNIT tablet 1,000 unit PO DAILY coenzyme Q10 50 MG tablet,chewable 30 mg PO DAILY warfarin 5 mg tablet 7.5 mg PO [facility] Protocol: Dose Management Condition: Thursday Dose/Route: 7.5 mg Instruction: 1.5 x 5 mg tablets Condition: Thursday Dose/Route: 5 mg Instruction: 1 x 5 mg tablet Condition: Thursday Dose/Route: 7.5 mg Instruction: 1.5 x 5 mg tablets Condition: Thursday Dose/Route: 5 mg Instruction: 1 x 5 mg tablet Condition: Dose/Route: 7.5 mg Instruction: 1.5 x 5 mg tablets Condition: Thursday Dose/Route: 5 mg Instruction: 1 x 5 mg tablet Condition: Thursday Dose/Route: 7.5 mg Instruction: 1.5 x 5 mg tablets Protocol Text: Adjustment Start Date: 03/09/25 INR Value: 2.8 INR Date: 03/08/25 Recheck Date: 04/08/25 timolol maleate 0.5 % drops 1 drp ophthalmic (eye) BID ascorbic acid (vitamin C) [C-500] 500 mg tablet 1 g PO DAILY metoprolol tartrate 25 mg tablet 12.5 mg PO BID PRN (Reason: afib) Qty: 180 3RF warfarin 5 mg tablet 5 mg PO .COMPLEX Qty: 120 3RF Protocol: Dose Management Condition: Thursday Dose/Route: 7.5 mg Instruction: 1.5 x 5 mg tablets Condition: Thursday Dose/Route: 5 mg Instruction: 1 x 5 mg tablet Condition: Thursday Dose/Route: 7.5 mg Instruction: 1.5 x 5 mg tablets Condition: Thursday Dose/Route: 5 mg Instruction: 1 x 5 mg tablet Condition: Dose/Route: 7.5 mg Instruction: 1.5 x 5 mg tablets Condition: Thursday Dose/Route: 5 mg Instruction: 1 x 5 mg tablet Condition: Thursday Dose/Route: 7.5 mg Instruction: 1.5 x 5 mg tablets Protocol Text: Adjustment Start Date: 03/09/25 INR Value: 2.8 INR Date: 03/08/25 Recheck Date: 04/08/25 Rx Instructions: 5 mg orally //, 7.5 mg (1.5 tablets) S/T// or as directed Primary Care Provider: Moon Teixeira Referrals: Moon Teixeira MD [Primary Care Provider] - Print Language: Swiss What to do if you have Problems For any increased pain, shortness of breath, bleeding, nausea or vomiting, chestpain, or any unexpected problems, contact your Primary Care Provider. Call [facility] ([phone]) or report to the closest Emergency Room. Call 911 if necessary. 03/15/251827 <Electronically signed by Johnie Kelsey DO> Cosigner Signature (if applicable): CC: Dr. Moon Teixeira MD ~ Signed [facility] Work Phone: 1(321) 394-980807-22-2025 Telephone encounter Note* Telephone Encounter - Zohra Bolton LPN - 03/14/2025 1:46 PM EDT Patient scheduled on 04/17/2025 at 11. Zohra Bolton LPN [facility] Work Phone: 1(927) 495-742907-22-2025 Miscellaneous Notes* Telephone Encounter - Zohra Bolton LPN - 03/14/2025 1:46 PM EDT Patient scheduled on 04/17/2025 at 11. Zohra Bolton LPN * Telephone Encounter - Alec Collins LPN - 03/10/2025 2:18 PM EDT Patient notified of result. She would like to schedule her permanent avulsion. [phone] is her best contact number. Alec Collins LPN * Telephone Encounter - Zohra Bolton LPN - 03/03/2025 9:13 AM EDT Called patient to provide results below. No response. Left VM. Zohra Bolton LPN * Telephone Encounter - Zohra Bolton LPN - 03/03/2025 9:12 AM EDT Images from the original note were not included. Daquan Buchanan to [facility] Pool 03/03/25 8:00 AM Please call patient to inform her that her circulation appears normal Daquan Buchanan DPM documented [facility] Telephone encounter Note * Telephone Encounter - Alec Collins LPN - 03/10/2025 2:18 PM EDT Patient notified of result. She would like to schedule her permanent avulsion. [phone] is her best contact number. Alec Collins LPN [facility]07-11-2025 Telephone encounter Note* Telephone Encounter - Zohra Bolton LPN - 03/03/2025 9:13 AM EDT Called patient to provide results below. No response. Left VM. Zohra Bolton LPN [facility]07-11-2025 Telephone encounter Note* Telephone Encounter - Zohra Bolton LPN - 03/03/2025 9:12 AM EDT Images from the original note were not included. Daquan Buchanan to [facility] Pod[facility] Pool 03/03/25 8:00 AM Please call patient to inform her that her circulation appears normal Daquan Buchanan DPM [facility]06-19-2025 History of Present illness Narrative* Edgra Dave, PT - 02/09/2025 8:19 AM EDT Program_ID:[id number] Access Code: [email or web address] URL: [email or web address] Date: 02-09-2025 Prepared By: Edgar Dave Program Notes Exercises - Supine Cervical Retraction with Towel - 2 x daily - 7 x weekly - 2 sets - 10 reps - Seated Scapular Retraction - 2 x daily - 7 x weekly - 2 sets - 10 reps - Seated Upper Trapezius Stretch - 2 x daily - 7 x weekly - sets - 4-5 reps - Gentle Levator Scapulae Stretch - 2 x daily - 7 x weekly - sets - 4-5 reps - Rhomboid/Posterior Neck Stretch - 2 x daily - 7 x weekly - sets - 4-5 reps - Corner Pec Minor Stretch - 2 x daily - 7 x weekly - sets - 4-5 reps * Edgar Dave, PT - 02/08/2025 9:23 AM EDT Images from the original note were not included. Episode Visit Count: 1 Therapist That Will Accept/Oversee The Plan Of Care: Edgar Dave PT. Start of Care Date: 02/08/25 Onset Date: 01/18/25 Plan of Care Certification Date: (N/A) Next Certification Due Date: (N/A) Patient Identified by Name and Date of : Yes REHABILITATION AND SPORTS THERAPY PHYSICAL THERAPY EVALUATION PLAN OF CARE: Assessment: Cady Berumen presents with chief complaint of Neck pain and bilateral periscap pain that interferes with recreational activities, physical activities . Pain presents as musculoskeletal in nature. The patient presents with impairments in ADL's, flexibility, independence in exercise,overall function, posture, range of motion, soft tissue healing, strength, symptom management, and tissue tenderness. PROMIS (Patient-Reported Outcomes Measurement Information System) scores were reviewed and identified as a rehabilitation concern. Prognosis for therapy is Good due to: current objective clinical presentation . The patient will benefit from skilled therapy services to meet the [facility] noted below. Goals for Episode of Care: established 02/08/25 Patient reported outcome of physical function will increase T-score by a minimum 5 points. Aimwell in home exercise program. Patient will decrease pain rating by 2 points to meet minimal clinical important difference for numeric pain rating scale. Restore pain free cervical ROM to >5 degrees in each direction to allow for improvements in functional mobility. Maintain proper sitting posture throughout the session to allow for minimizing strain on the posterior neck & periscap musculature and reducing pain/symptoms. Improve strength of B upper extremities to 4+/5 MMT for improvements in posture, and improved function for prior functional tasks. Patient will endorse decreased tissue tenderness in chief complaint areas for improvements in alleviating pain/symptoms for ADL/IADLs. Patient Goals: Alleviate Pain. Time Frame for Goals and Treatment : 03/23/25 Planned Interventions, Frequency, and Duration: Current Frequency: 1x/week Duration: 5 weeks Total Number of Visits Planned: 5 Planned Treatment Interventions: Therapeutic exercise (28661), Neuromuscular re- education (16247), Manual therapy (95469), Therapeutic activities (46518), Self- fdc management (51776), Patient/Family/Caregiver Education, Body Mechanics Training PLAN FOR NEXT VISIT: Review, correct and progress HEP (since unable to print HEP at IE); manual therapy to soft tissue. Manual flexibility/passive motion. Progress ther-ex as tolerated. Patient demonstrates good understanding of plan of care and treatment. The above goals and plan of care were discussed and agreed upon by patient/family. SUBJECTIVE: Patient reports a few weeks ago waking up and not being able to lift or turn her head to the R - felt pain when doing it. Has burning (points to L upper trap) and aching in the (whole c/s). Also, mentions a spot under her R Scapula is hyper irritable. Went to chrio a couple of times (seemed to help) States referring provider believes it is muscle related over arthritis. MM Relaxer helps. States alot of periscap pressure and hurting during and following her walk. Being in the kitchen and counter work are also limited. Patient Goals: Alleviate Pain. Functional Limitations: recreational activities, physical activities Prior Level of Function: Independent without limitations Relevant History Past Relevant Medical Conditions: Asthma, Fibromyalgia, Hypertension, Comments Relevant Medical Conditions Comments: Hypothyroidism. Employment: Retired Recreation / Current Exercise: Walk over a mile with FWW. Intake Information: Prescription present Previous Treatment: Muscle relaxer Falls Interview: No positive findings with falls interview Red Flags Vertebral Fracture Red Flags: Female, Age >70 Vertebral Fracture Clinical Reasoning: No identified risk factors Cancer Red Flags: Age >50 or <20 Cancer Clinical Reasoning: No identified risk factors. Infection Clinical Reasoning: No identified risk factors. Cervical Arterial Dysfunction Clinical Reasoning: No identified risk factors Cervical Myelopathy: Age > 45 yo Cervical Myelopathy Diagnostic Rule: Proceed with caution Red Flags - Cervical Cancer Red Flags: Age >50 or <20 Cancer Clinical Reasoning: No identified risk factors. Infection Clinical Reasoning: No identified risk factors. Cervical Arterial Dysfunction Clinical Reasoning: No identified risk factors Cervical Myelopathy: Age > 45 yo Cervical Myelopathy Diagnostic Rule: Proceed with caution Pain: Pain Pain Level: (No Pain Right at the Moment) PROMIS Scales 02/08/2025 Higher is Better Phys Func - T Score 43 (mild dysfunction) Phys Func - Percentile 24 Self-Eff Symptom - T Score 59 (Average) Self-Eff Symptom - Percentile 82 Proxy-reported T-scores: mean of general population = 50. 5 points is clinically meaningfully difference Percentiles provide an indication of how the patient's score ranks in relation to the general population. Higher percentile rankings indicate better function/quality of life. 50th percentile is the average of the general population and indicates half of respondents had a worse score. OBJECTIVE MEASURES WITH LEVEL OF FUNCTION: Posture / Alignment Posture: Forward head, Increased thoracic kyphosis, Rounded shoulders Spine Observations Spine Observations: Patient is very tender to palpate at the B UT and R Rhomboids. Trigger points appreciated throughout. Very hyperirritable. R Cervical Spine Palpation Tenderness: Upper trapezius, Levator scapulae, Suboccipitals L Cervical Spine Palpation Tenderness: Upper trapezius, Levator scapulae R Thoracic Spine Palpation Tenderness: Medial border- Scapula, Rhomboid L Thoracic Spine Palpation Tenderness: Medial border- Scapula, Rhomboid Cervical Spine ROM Cervical ROM : Measurement AROM Cervical Flexion AROM (degrees) : 40 Degrees Cervical Extension AROM (degrees) : 30 Degrees Cervical Side-Bend Right AROM (degrees): 25 Degrees Cervical Side-Bend Left AROM (degrees) : 30 Degrees Cervical Rotation Right AROM (degrees) : 35 Degrees (Painful) Cervical Rotation Left AROM (degrees) : 45 Degrees UE Flexibility Flexibility: Upper Trapezius R Upper Trapezius Flexibilty Comments: Limited; slightly more than Left. L Upper Trapezius Flexibility Comments: Limited UE and Cervical Strength Strength Tested: Scapula R UE Strength: Flexion and ABD: 4/5. L UE Strength: Flexion and ABD: 4/5. R Shoulder Horizontal ABduction: 4/5 R Middle Trapezius: 4/5 R Lower Trapezius: 4/5 L Shoulder Horizontal ABduction: 4/5 L Middle Trapezius: 4/5 L Lower Trapezius: 4/5 Special Tests - Cervical Cervical Special Tests: Spurling, Hoffmans Spurling: Right Negative, Left Negative Mai's: Right Negative, Left Negative Education: Education Learning Preferences: Demonstration, Explanation, Printed Materials Barriers: None Learning/educational needs: Home exercise program, Safety, Plan of Care, Health promotion Education Provided: Yes, see treatment interventions for education provided Education Provided To: Patient Education Mode/Type: Demonstration, Explanation/Discussion, Literature/Printed Materials Response to Education/Teach Back: States/Identifies TREATMENT: PT Treatment Interventions: Therapeutic Exercise, Manual Therapy Evaluation Therapeutic Exercise: 1: Reviewed HEP Exercises. Handout provided. Rationale on exercises. PT provided demonstration and cueing of exercises for proper completion. Pt demonstrated understanding. 2: Patient educated on exam findings, rehabilitation process & plan of care, therapy goals, and anatomy relevant to diagnosis. 3: *Scap Squeezes: 2x10, 1-2sec hold. 4: *Supine Cervical Retraction to tolerance: 1x10, 2-3sec hold. 5: *Gentle UT Stretch: 1x30" each. 6: *Gentle LS Stretch: 1x30" each. 7: *Seated Rhomboid Stretch: 2x30". 8: Educated in DN treatment; discussed differences from acupuncture. Provided rationale for DN. 9: Education on posture and proper performance. Skilled Intervention: Patient was educated in proper exercise technique and purpose for exercises. Reviewed and educated patient on additions/changes for home exercise program as above (*). Skilled judgment was used in selection of appropriate interventions. Provided written instruction for home exercise program to facilitate proper performance and compliance. Correct performance of therapeutic exercises was facilitated with verbal, visual, and tactile cuing. Medbridge was down during visit. Explain and demoed HEP however was unable to give it to the patient. Sent HEP to her daughters number and called patient to come roller picker handouts. Manual Therapy: Soft Tissue Mobilization: STM with hands to B UT & R Periscap area. Trigger Point Release: B TPR to B UT & LS: x10 each, 3-5sec hold. Skilled Intervention: Manual skills to improve joint mobility, ROM, and decrease pain. Utilized anatomy knowledge of the clinician, and assessment of patient's response to intervention. Billing * Evaluation Low Complexity: 1 Unit Therapeutic Exercise Treatment Minutes: 13 Manual TherapyTreatment Minutes: 10 Skilled Treatment Time Minutes (timed and untimed codes): 38 Total Session Time (minutes): 38 Session Start Time : 921 Session Stop Time : 1000 Decreased visit time due to patient arriving late to appointment. Edgar Dave PT documented in this [facility]06-[facility] NoteHNO ID: [id number] Author: EDGAR DAVE PT Service: ? Author Type: Physical Therapist Type: Progress Notes Filed: 02/09/2025 08:26 Note Text: Episode Visit Count: 1 Therapist That Will Accept/Oversee The Plan Of Care: Edgar Dave PT. Start of Care Date: 02/08/25 Onset Date: 01/18/25 Plan of Care Certification Date: (N/A) Next Certification Due Date: (N/A) Patient Identified by Name and Date of : Yes REHABILITATION AND SPORTS THERAPY PHYSICAL THERAPY EVALUATION PLAN OF CARE: Assessment: Cady Berumen presents with chief complaint of Neck pain and bilateral periscap pain that interferes with recreational activities, physical activities . Pain presents as musculoskeletal in nature. The patient presents with impairments in ADL's, flexibility, independence in exercise, overall function, posture, range of motion, soft tissue healing, strength, symptom management, and tissue tenderness. PROMIS? (Patient-Reported Outcomes Measurement Information System) scores were reviewed and identified as a rehabilitation concern. Prognosis for therapy is Good due to: current objective clinical presentation . The patient will benefit from skilled therapy services to meet the goals established for this plan of care as noted below. Goals for Episode of Care: established 02/08/25 Patient reported outcome of physical function will increase T-score by a minimum 5 points. Aimwell in home exercise program. Patient will decrease pain rating by 2 points to meet minimal clinical important difference for numeric pain rating scale. Restore pain free cervical ROM to >5 degrees in each direction to allow for improvements in functional mobility. Maintain proper sitting posture throughout the session to allow for minimizing strain on the posterior neck AND periscap musculature and reducing pain/symptoms. Improve strength of B upper extremities to 4+/5 MMT for improvements in posture, and improved function for prior functional tasks. Patient will endorse decreased tissue tenderness in chief complaint areas for improvements in alleviating pain/symptoms for ADL/IADLs. Patient Goals: Alleviate Pain. Time Frame for Goals and Treatment : 03/23/25 Planned Interventions, Frequency, and Duration: Current Frequency: 1x/week Duration: 5 weeks Total Number of Visits Planned: 5 Planned Treatment Interventions: Therapeutic exercise (28594), Neuromuscular re-education (11375), Manual therapy (57116), Therapeutic activities (60941), Self-fdc management (28409), Patient/Family/Caregiver Education, Body Mechanics Training PLAN FOR NEXT VISIT: Review, correct and progress HEP (since unable to print HEP at IE); manual therapy to soft tissue. Manual flexibility/passive motion. Progress ther-ex as tolerated. Patient demonstrates good understanding of plan of care and treatment. The above goals and plan of care were discussed and agreed upon by patient/family. SUBJECTIVE: Patient reports a few weeks ago waking up and not being able to lift or turn her head to the R - felt pain when doing it. Has burning (points to L upper trap) and aching in the (whole c/s). Also, mentions a spot under her R Scapula is hyper irritable. Went to chrio a couple of times (seemed to help) States referring provider believes it is muscle related over arthritis. MM Relaxer helps. States a lot of periscap pressure and hurting during and following her walk. Being in the kitchen and counter work are also limited. Patient Goals: Alleviate Pain. Functional Limitations: recreational activities, physical activities Prior Level of Function: Independent without limitations Relevant History Past Relevant Medical Conditions: Asthma, Fibromyalgia, Hypertension, Comments Relevant Medical Conditions Comments: Hypothyroidism. Employment: Retired Recreation / Current Exercise: Walk over a mile with FWW. Intake Information: Prescription present Previous Treatment: Muscle relaxer Falls Interview: No positive findings with falls interview Red Flags Vertebral Fracture Red Flags: Female, Age >70 Vertebral Fracture Clinical Reasoning: No identified risk factors Cancer Red Flags: Age >50 or <20 Cancer Clinical Reasoning: No identified risk factors. Infection Clinical Reasoning: No identified risk factors. Cervical Arterial Dysfunction Clinical Reasoning: No identified risk factors Cervical Myelopathy: Age > 45 yo Cervical Myelopathy Diagnostic Rule: Proceed with caution Red Flags - Cervical Cancer Red Flags: Age >50 or <20 Cancer Clinical Reasoning: No identified risk factors. Infection Clinical Reasoning: No identified risk factors. Cervical Arterial Dysfunction Clinical Reasoning: No identified risk factors Cervical Myelopathy: Age > 45 yo Cervical Myelopathy Diagnostic Rule: Proceed with caution Pain: Pain Pain Level: (No Pain Right at the Moment) PROMIS Scales 02/08/2025 Higher is Better Phys (more content not included)...[facility]06-13-2025 Telephone encounter Note* Telephone Encounter - José Miguel Saldaña APRN.[facility] - 02/03/2025 12:58 PM EDT See results follow up. José Miguel Saldaña APRN.CNP [facility]06-13-2025 Miscellaneous Notes* Telephone Encounter - José Miguel Saldaña APRN.CNP - 02/03/2025 12:58 PM EDT See results follow up. José Miguel Saldaña APRN.CNP * Telephone Encounter - Nydia Encarnacion RN - 02/01/2025 1:41 PM EDT Patient calling and is asking about lab results. Please review and advise, Nydia Encarnacion RN Patient states that Dr. Tera Bosch's office did not receive dermatology referral. Faxed referral, office visit notes, and face sheet to Dr. Yves Bosch's office as requested. documented in this encounterC[facility]06-11-2025 Telephone encounter Note * Telephone Encounter - Nydia Encarnacion RN - 02/01/2025 1:41 PM EDT Patient calling and is asking about lab results. Please review and advise, Nydia Encarnacion RN Patient states that Dr. Tera Bosch's office did not receive dermatology referral. Faxed referral, office visit notes, and face sheet to Dr. Yves Bosch's office as requested. [facility]06-05-2025 NoteHNO ID: [id number] Author: JOSÉ MIGUEL SALDAÑA APRN.CNP Service: ? Author Type: Nurse Practitioner Type: Progress Notes Filed: 01/27/2025 16:00 Note Text: CC: Patient presents with: Derm Problem: Spot on right forearm that is changing wants to have checked. HPI Cady Berumen is a 79 year old female who presents today for spot changing on her arm. Also with many multiple other concerns. Has had spot to her right forearm for the past 5-6 months. Noticed a few weeks ago it was raised and then over the last few days it is a new color. Denies pain, itchiness, bleeding, or personal history of skin cancer. Family history of skin cancer. Kind unknown. Still gaining weight even with walking daily and staying active with gardening and going other yard work. Is having a lot of fatigue. Chronic neck and upper shoulder pain, would like a consult order to try dry needling as she has tried accupuncter in the past. Has been going to the chiropractor and being told she is out of alignment. REVIEW OF SYSTEMS General: no fevers, no chills, no night sweats, no recurrent infections, no change in appetite, no change in energy, and no significant changes in weight Respiratory: no cough, no wheezing, no shortness of breath, no hemoptysis Cardiovascular: no chest pain, no chest pressure, no palpitations, and no swelling Endocrine: no cold intolerance, no heat intolerance, no polyuria, no polyphagia, and no polydipsia Neurologic: No headache, weakness, numbness, dizziness, memory loss, syncope. PAST MEDICAL HISTORY Diagnosis Date A-fib (HCC) February 2021 Asthma (HCC) Atrial tachycardia (HCC) 10/14/2018 BPPV (benign paroxysmal positional vertigo) 10/30/2014 Degenerative disc disease 08/10/2014 Mild Degenerative disc disease C6-C7 Mild Anterolisthesis C7-T-1`- See scanned document Essential hypertension, benign Fibromyalgia Glaucoma, open angle Hypothyroidism 10/14/2018 Varicose veins 08/25/2014 Varicose veins of other sites Venous stasis ulcer of ankle 07/18/2013 Vestibular neuronitis Vitamin D deficiency 09/20/2013 PAST SURGICAL HISTORY Procedure Laterality Date ARTHRP TEMPOROMANDIBULAR JOINT W/WO AUTOGRAFT 1988 CATARACT SURGERY, COMPLEX 2006 Rt AND Lt COLONOSCOPY FLX DX W/COLLJ SPEC WHEN PFRMD 11/08/2010 Colonoscopy COLONOSCOPY FLX DX W/COLLJ SPEC WHEN PFRMD 08/23/2019 [facility] C[facility]ul repeat is not recommended NEUROPLASTY AND/TRANSPOS MEDIAN NRV CARPAL TUNNE 1991 Carpal tunnel decomp-bilateral PAST SURGICAL HISTORY OF 08-21-05 EXCISION CYST LEFT MIDDLE FINGER PAST SURGICAL HISTORY OF right foot surgery- mortons neuroma PAST SURGICAL HISTORY OF 2013 left foot vein ablation TONSILLECTOMY PRIMARY/SECONDARY AGE 12/> 1962 ALLERGIES Fragrances; Benzodiazepines; Cats; Dust Mites; Grass Pollen-Donna, Standard; Mold; Seasonal Allergies; Sulfa (Sulfonamide Antibiotics); Trees; Valium [Diazepam]; and Zithromax [Azithromycin] MEDICATIONS baclofen 10 mg tablet Take 1 tablet by mouth three times a day as needed (muscle spasms). metoprolol tartrate, short acting, (LOPRESSOR) 25 mg tablet Take 12.5 mg by mouth as needed. Takes as needed for rapid HR timolol maleate (TIMOPTIC) 0.5 % ophthalmic solution Use 1 Drop in both eyes twice daily. warfarin (COUMADIN) 5 mg tablet Take 1 tablet by mouth daily except 7.5mg on ( [facility]) Cholecalciferol, Vitamin D3, 50 mcg (2,000 unit) cap Take 2 capsules by mouth once daily. COQ10, UBIQUINOL, ORAL Take 30 mg by mouth. latanoprost (XALATAN) 0.005 % ophthalmic solution Use 1 Drop in both eyes daily at bedtime. furosemide (LASIX) 20 mg tablet Take 20 mg by mouth once daily. (Patient not taking: Reported on 01/17/2025) FAMILY HISTORY Problem Relation Age of Onset Heart Father Allergies Sister Breast Cancer Sister age of 50's with diagnosis Prostate Cancer Brother Social History Tobacco Use Smoking status: Never Smokeless tobacco: Never Vaping Use Vaping status: Never Used Substance Use Topics Alcohol use: Not Currently Drug use: No PHYSICAL EXAM BP 112/68 Pulse (!) 57 Wt 76.2 kg (168 lb) SpO2 95% BMI 28.84 kg/m? General Appearance: well appearing, in no acute distress, alert Skin: right forearm with light brown oblong flat skin lesion with two dark brown rough lesions on top that also appear circular and have a "stuck on" feel Eyes: conjunctiva pink and moist, no icterus, sclera white, non-injected Neck: Thyroid normal size and symmetric without palpable nodules, Neck supple, No adenopathy, tenderness to bilateral lateralis muscles and traps. Lymph nodes: No cervical lymphadenopathy and No supraclavicular lymphadenopathy Lungs: Lungs clear to auscultation. No wheezing, rhonchi, rales. Heart: RRR without murmur, gallop, or rubs. No ectopy Health maintenance reviewed with patient: Anxiety Screening Never done DTaP,Tdap,Td Vaccine(1 - Tdap) Never done RSV Vaccine(1 - (more content not included)...[facility] 01-26-2025 History of Present illness Narrative* José Miguel SaldañaSCOTT.FILE SYSTEM INSTALLER - 01/26/2025 11:43 AM EDT CC: Patient presents with: Derm Problem: Spot on right forearm that is changing wants to have checked. HPI Cady Berumen is a 79 year old female who presents today for spot changing on her arm. Also with many multiple other concerns. Has had spot to her right forearm for the past 5-6 months. Noticed a few weeks ago it was raised and then over the last few days it is a new color. Denies pain, itchiness, bleeding, or personal history of skin cancer. Family history of skin cancer. Kind unknown. Still gaining weight even with walking daily and staying active with gardening and going other yardwork. Is having a lot of fatigue. Chronic neck and upper shoulder pain, would like a consult order to try dry needling as she has tried accupuncter in the past. Has been going to the chiropractor and being told she is out of alignment. REVIEW OF SYSTEMS General: no fevers, no chills, no night sweats, no recurrent infections, no change in appetite, no change in energy, and no significant changes in weight Respiratory: no cough, no wheezing, no shortness of breath, no hemoptysis Cardiovascular: no chest pain, no chest pressure, no palpitations, and no swelling Endocrine: no cold intolerance, no heat intolerance, no polyuria, no polyphagia, and no polydipsia Neurologic: No headache, weakness, numbness, dizziness, memory loss, syncope. PAST MEDICAL HISTORY Diagnosis Date A-fib (HCC) February 2021 Asthma (HCC) Atrial tachycardia (HCC) 10/14/2018 BPPV (benign paroxysmal positional vertigo) 10/30/2014 Degenerative disc disease 08/10/2014 Mild Degenerative disc disease C6-C7 Mild Anterolisthesis C7-T-1`- See scanned document Essential hypertension, benign Fibromyalgia Glaucoma, open angle Hypothyroidism 10/14/2018 Varicose veins 08/25/2014 Varicose veins of other sites Venous stasis ulcer of ankle 07/18/2013 Vestibular neuronitis Vitamin D deficiency 09/20/2013 PAST SURGICAL HISTORY Procedure Laterality Date ARTHRP TEMPOROMANDIBULAR JOINT W/WO AUTOGRAFT 1988 CATARACT SURGERY, COMPLEX 2005 Rt & Lt COLONOSCOPY FLX DX W/COLLJ SPEC WHEN PFRMD 11/08/2010 Colonoscopy COLONOSCOPY FLX DX W/COLLJ SPEC WHEN PFRMD 08/23/2019 JOSEJulienne Estrella repeat is not recommended NEUROPLASTY &/TRANSPOS MEDIAN NRV CARPAL TUNNE 1990 Carpal tunnel decomp-bilateral PAST SURGICAL HISTORY OF 08-21-05 EXCISION CYST LEFT MIDDLE FINGER PAST SURGICAL HISTORY OF right foot surgery- mortons neuroma PAST SURGICAL HISTORY OF 2013 left foot vein ablation TONSILLECTOMY PRIMARY/SECONDARY AGE 12/1961 ALLERGIES Fragrances; Benzodiazepines; Cats; Dust Mites; Grass Pollen-Donna, Standard; Mold; Seasonal Allergies; Sulfa (Sulfonamide Antibiotics); Trees; Valium [Diazepam]; and Zithromax [Azithromycin] MEDICATIONS baclofen 10 mg tablet Take 1 tablet by mouth three times a day as needed (muscle spasms). metoprolol tartrate, short acting, (LOPRESSOR) 25 mg tablet Take 12.5 mg by mouth as needed. Takes as needed for rapid HR timolol maleate (TIMOPTIC) 0.5 % ophthalmic solution Use 1 Drop in both eyes twice daily. warfarin (COUMADIN) 5 mg tablet Take 1 tablet by mouth daily except 7.[facility]mg on ( [facility]) Cholecalciferol, Vitamin D3, 50 mcg (2,000 unit) cap Take 2 capsules by mouth once daily. COQ10, UBIQUINOL, ORAL Take 30 mg by mouth. latanoprost (XALATAN) 0.005 % ophthalmic solution Use 1 Drop in both eyes daily at bedtime. furosemide (LASIX) 20 mg tablet Take 20 mg by mouth once daily. (Patient not taking: Reported on 01/17/2025) FAMILY HISTORY Problem Relation Age of Onset Heart Father Allergies Sister Breast Cancer Sister age of 50's with diagnosis Prostate Cancer Brother Social History Tobacco Use Smoking status: Never Smokeless tobacco: Never Vaping Use Vaping status: Never Used Substance Use Topics Alcohol use: Not Currently Drug use: No PHYSICAL EXAM BP 112/68 Pulse (!) 57 Wt 76.2 kg (168 lb) SpO2 95% BMI 28.84 kg/m General Appearance: well appearing, in no acute distress, alert Skin: right forearm with light brown oblong flat skin lesion with two dark brown rough lesions on top that also appear circular and have a "stuck on" feel Eyes: conjunctiva pink and moist, no icterus, sclera white, non-injected Neck: Thyroid normal size and symmetric without palpable nodules, Neck supple, No adenopathy, tenderness to bilateral lateralis muscles and traps. Lymph nodes: No cervical lymphadenopathy and No supraclavicular lymphadenopathy Lungs: Lungs clear to auscultation. No wheezing, rhonchi, rales. Heart: RRR without murmur, gallop, or rubs. No ectopy Health maintenance reviewed with patient: Anxiety Screening Never done DTaP,Tdap,Td Vaccine(1 - Tdap) Never done RSV Vaccine(1 - 1-dose 75+ series) Never done Advance Directive Discussion due on 08/24/2024 BP Controlled (<130/80) due on 01/17/2026 Annual PCP Team Chronic Disease Visit due on 01/26/2026 Diabetes Screening due on 02/09/2027 Bone Density Screening Completed Influenza Vaccine Completed Pneumococcal Vaccine: 50+ Completed Mammogram Screening Discontinued Colorectal Cancer Screening Discontinued Shingrix Vaccine Discontinued Covid-19 Vaccine Discontinued DATA REVIEWED: No new labs ASSESSMENT/PLAN: 1. Chronic pain of both shoulders - ICD9: 719.41, 338.29, ICD10: M25.511, G89.29, M25.512 (primary diagnosis) Consult for dry needling sent as requested for this chronic issue - CONSULT TO PHYSICAL THERAPY 2. Neck pain - ICD9: 723.1, ICD10: M54.2 As above - CONSULT TO PHYSICAL THERAPY 3. Skin lesion - ICD9: 709.9, ICD10: L98.9 At first glance appears to be a benign nevi with growth on top. With patient's concern of rapid change, will send to derm for further evaluation. - CONSULT TO DERMATOLOGY 4. Other fatigue - ICD9: 780.79, ICD10: R53.83 Will evaluate for underlying cause, follow up depending on results - THYROID STIMULATING HORMONE - T3, FREE - T4 FREE/FREE THYROXINE - VITAMIN B12 - COMPLETE BLOOD COUNT AND DIFFERENTIAL - COMPREHENSIVE METABOLIC PANEL - VITAMIN D 25 HYDROXY 5. Weight gain - ICD9: 783.1, ICD10: R63.5 As above - THYROID STIMULATING HORMONE - T3, FREE - T4 FREE/FREE THYROXINE - VITAMIN B12 - COMPLETE BLOOD COUNT AND DIFFERENTIAL - COMPREHENSIVE METABOLIC PANEL 6. Vitamin D deficiency - ICD9: 268.9, ICD10: E55.9 - VITAMIN D 25 HYDROXY Prescription instructions reviewed with patient as applicable. Potential red flag symptoms discussed with the patient. Reviewed appropriate action plan to take if red flag symptoms occur. Patient agreeable to treatment plan. José Miguel Saldaña APRN.CNP documented in this encounterC[facility] Telephone encounter Note * Telephone Encounter - Lauren Bui RN - 01/26/2025 10:30 AM EDT Patient calls for skin problem. Nurse triage recommends see provider within two weeks. Patient nervous about the changes and requests soonest appt. Scheduled same day. Care advice reviewed with verbalized understanding. Reason for Disposition [1] Skin growth or mole AND [2] sticks up out of the skin (elevated) AND [3] feels rough to the touch Answer Assessment - Initial Assessment Questions 1. APPEARANCE of LESION: Patient reports that she has a circular brown area to right arm slightly smaller than a dime that she has had for a long time that a few weeks ago she noticed it was no longer smooth. In the past few days she has noted that the brown area is starting to lift from the skin and has small raised areas within the brown area. 2. SIZE: Slightly smaller than a dime. 3. COLOR: Brown 4. SHAPE: round 5. RAISED: yes 6. TENDER:No 7. LOCATION: right arm 8. ONSET: Has been present for a long time. A few weeks ago noticed change in texture and a few days ago noticed bumps within the area. 9. NUMBER: one 10. CAUSE: Patient refers to the area as one of her liver spots but reports she is uncertain as to why the area has changed the way it is. 11. OTHER SYMPTOMS: Afebrile Protocols used: Skin Lesion - Moles or [id number] [facility]06-05-[facility] Miscellaneous Notes* Telephone Encounter - Lauren Bui RN - 01/26/2025 10:30 AM EDT Patient calls for skin problem. Nurse triage recommends see provider within two weeks. Patient nervous about the changes and requests soonest appt. Scheduled same day. Care advice reviewed with verbalized understanding. Reason for Disposition [1] Skin growth or mole AND [2] sticks up out of the skin (elevated) AND [3] feels rough to the touch Answer Assessment - Initial Assessment Questions 1. APPEARANCE of LESION: Patient reports that she has a circular brown area to right arm slightly smaller than a dime that she has had for a long time that a few weeks ago she noticed it was no longer smooth. In the past few days she has noted that the brown area is starting to lift from the skin and has small raised areas within the brown area. 2. SIZE: Slightly smaller than a dime. 3. COLOR: Brown 4. SHAPE: round 5. RAISED: yes 6. TENDER:No 7. LOCATION: right arm 8. ONSET: Has been present for a long time. A few weeks ago noticed change in texture and a few days ago noticed bumps within the area. 9. NUMBER: one 10. CAUSE: Patient refers to the area as one of her liver spots but reports she is uncertain as to why the area has changed the way it is. 11. OTHER SYMPTOMS: Afebrile Protocols used: Skin Lesion - Moles or [id number] documented in this encounterCinc[facility]05-27-2025 NoteHNO ID: [id number] Author: ALEC ARTHUR, DO Service: ? Author Type: Physician Type: Progress Notes Filed: 02/16/2025 16:49 Note Text: [facility] [place] DEPARTMENT OF VASCULAR SURGERY OUTPATIENT VISIT DATE January 17, 2025 OUTPATIENT VISIT TYPE ESTABLISHED SERVICE DATE: 01/17/2025 SERVICE TIME: 3:06 PM PRIMARY CARE PHYSICIAN: Moon Teixeira MD HISTORY OF PRESENT ILLNESS: Ms. Berumen is a 79 year old female who presents today for a vascular surgery follow-up visit for venous insufficiency and symptomatic varicose veins. She has noticed hand pain and numbness. She also notices that her right 5th toe is white while the remainder of foot will turn purple. She has atrial fibrillation and is scheduled for ablation in the summer. PAST MEDICAL HISTORY Diagnosis Date A-fib (HCC) February 2021 Asthma Atrial tachycardia (HCC) 10/14/2018 BPPV (benign paroxysmal positional vertigo) 10/30/2014 Degenerative disc disease 08/10/2014 Mild Degenerative disc disease C6-C7 Mild Anterolisthesis C7-T-1`- See scanned document Essential hypertension, benign Fibromyalgia Glaucoma, open angle Hypothyroidism 10/14/2018 Varicose veins 08/25/2014 Varicose veins of other sites Venous stasis ulcer of ankle 07/18/2013 Vestibular neuronitis Vitamin D deficiency 09/20/2013 PAST SURGICAL HISTORY Procedure Laterality Date ARTHRP TEMPOROMANDIBULAR JOINT W/WO AUTOGRAFT 1987 CATARACT SURGERY, COMPLEX 2005 Rt AND Lt COLONOSCOPY FLX DX W/COLLJ SPEC WHEN PFRMD 11/08/2010 Colonoscopy COLONOSCOPY FLX DX W/COLLJ SPEC WHEN PFRMD 08/23/2019 [facility] repeat is not recommended NEUROPLASTY AND/TRANSPOS MEDIAN NRV CARPAL TUNNE 1990 Carpal tunnel decomp-bilateral PAST SURGICAL HISTORY OF 08-21-05 EXCISION CYST LEFT MIDDLE FINGER PAST SURGICAL HISTORY OF right foot surgery- mortons neuroma PAST SURGICAL HISTORY OF 2013 left foot vein ablation TONSILLECTOMY PRIMARY/SECONDARY AGE 12/> 1962 SOCIAL HISTORY Social History Tobacco Use Smoking status: Never Smokeless tobacco: Never Vaping Use Vaping status: Never Used Substance Use Topics Alcohol use: Not Currently Drug use: No MEDICATIONS: baclofen 10 mg tablet Take 1 tablet by mouth three times a day as needed (muscle spasms). metoprolol tartrate, short acting, (LOPRESSOR) 25 mg tablet Take 12.5 mg by mouth as needed. Takes as needed for rapid HR timolol maleate (TIMOPTIC) 0.5 % ophthalmic solution Use 1 Drop in both eyes twice daily. warfarin (COUMADIN) 5 mg tablet Take 1 tablet by mouth daily except 7.5mg on ( [facility]) Cholecalciferol, Vitamin D3, 50 mcg (2,000 unit) cap Take 2 capsules by mouth once daily. COQ10, UBIQUINOL, ORAL Take 30 mg by mouth. latanoprost (XALATAN) 0.005 % ophthalmic solution Use 1 Drop in both eyes daily at bedtime. furosemide (LASIX) 20 mg tablet Take 20 mg by mouth once daily. (Patient not taking: Reported on 01/17/2025) ALLERGIES: ALLERGIES Allergen Reactions Fragrances Cough, Shortness of Breath Benzodiazepines Mental Status Change Pt sees colors and laughing Cats Itching, Shortness of Breath Eventual wheezing Dust Mites Other: See Comments Positive allergy test Grass Pollen-Timoth* Itching Nasal congestion Mold Itching Nasal congestion Seasonal Allergies Cough Sulfa (Sulfonamide * Itching Trees Itching Nasal congestion Valium [Diazepam] Intolerance Laughing hysterically, ultra sensitive Zithromax [Azithrom* Other: See Comments nausea PHYSICAL EXAM: BP 126/55 (BP Site: Left Arm, BP Position: Sitting, BP Cuff Size: Large Adult) Pulse (!) 56 SpO2 96% Gen- no distress Ext- palpable dp, bilateral lower extremity extensive 3-D spider veins and varicose veins Diagnostic tests reviewed for today's visit: Most recent labs Most recent imaging IMPRESSION: Ms. Berumen is a 79 year old female with venous insufficiency, varicose veins . PLAN and RECOMMENDATIONS: Reviewed PVRs from 2022. She should be able to heal toe nail procedure Continue compression, elevation, and walking Follow up as needed SIGNATURE: Alec Arthur DO PATIENT NAME: Cady Berumen DATE: January 17, 2025 TIME: 3:06 [facility]05-27-2025 History of Present illness Narrative* Alec Arthur DO - 01/17/2025 3:06 PM EDT Images from the original note were not included. [facility] [place] DEPARTMENT OF VASCULAR SURGERY OUTPATIENT VISIT DATE January 17, 2025 OUTPATIENT VISIT TYPE ESTABLISHED SERVICE DATE: 01/17/2025 SERVICE TIME: 3:06 PM PRIMARY CARE PHYSICIAN: Moon Teixeira MD HISTORY OF PRESENT ILLNESS: Ms. Berumen is a 79 year old female who presents today for a vascular surgery follow-up visit for venous insufficiency and symptomatic varicose veins. She has noticed handpain and numbness. She also notices that her right 5th toe is white while the remainder of foot will turn purple. She has atrial fibrillation and is scheduled for ablation in the summer. PAST MEDICAL HISTORY Diagnosis Date A-fib (HCC) February 2021 Asthma Atrial tachycardia (HCC) 10/14/2018 BPPV (benign paroxysmal positional vertigo) 10/30/2014 Degenerative disc disease 08/10/2014 Mild Degenerative disc disease C6-C7 Mild Anterolisthesis C7-T-1`- See scanned document Essential hypertension, benign Fibromyalgia Glaucoma, open angle Hypothyroidism 10/14/2018 Varicose veins 08/25/2014 Varicose veins of other sites Venous stasis ulcer of ankle 07/18/2013 Vestibular neuronitis Vitamin D deficiency 09/20/2013 PAST SURGICAL HISTORY Procedure Laterality Date ARTHRP TEMPOROMANDIBULAR JOINT W/WO AUTOGRAFT 1987 CATARACT SURGERY, COMPLEX 2005 Rt & Lt COLONOSCOPY FLX DX W/COLLJ SPEC WHEN PFRMD 11/08/2010 Colonoscopy COLONOSCOPY FLX DX W/COLLJ SPEC WHEN PFRMD 08/23/2019 [facility] repeat is not recommended NEUROPLASTY &/TRANSPOS MEDIAN NRV CARPAL TUNNE 1990 Carpal tunnel decomp-bilateral PAST SURGICAL HISTORY OF 08-21-05 EXCISION CYST LEFT MIDDLE FINGER PAST SURGICAL HISTORY OF right foot surgery- mortons neuroma PAST SURGICAL HISTORY OF 2013 left foot vein ablation TONSILLECTOMY PRIMARY/SECONDARY AGE 12/> 1962 SOCIAL HISTORY Social History Tobacco Use Smoking status: Never Smokeless tobacco: Never Vaping Use Vaping status: Never Used Substance Use Topics Alcohol use: Not Currently Drug use: No MEDICATIONS: baclofen 10 mg tablet Take 1 tablet by mouth three times a day as needed (muscle spasms). metoprolol tartrate, short acting, (LOPRESSOR) 25 mg tablet Take 12.5 mg by mouth as needed. Takes as needed for rapid HR timolol maleate (TIMOPTIC) 0.5 % ophthalmic solution Use 1 Drop in both eyes twice daily. warfarin (COUMADIN) 5 mg tablet Take 1 tablet by mouth daily except 7.5mg on ( [facility]) Cholecalciferol, Vitamin D3, 50 mcg (2,000 unit) cap Take 2 capsules by mouth once daily. COQ10, UBIQUINOL, ORAL Take 30 mg by mouth. latanoprost (XALATAN) 0.005 % ophthalmic solution Use 1 Drop in both eyes daily at bedtime. furosemide (LASIX) 20 mg tablet Take 20 mg by mouth once daily. (Patient not taking: Reported on 01/17/2025) ALLERGIES: ALLERGIES Allergen Reactions Fragrances Cough, Shortness of Breath Benzodiazepines Mental Status Change Pt sees colors and laughing Cats Itching, Shortness of Breath Eventual wheezing Dust Mites Other: See Comments Positive allergy test Grass Pollen-Timoth* Itching Nasal congestion Mold Itching Nasal congestion Seasonal Allergies Cough Sulfa (Sulfonamide * Itching Trees Itching Nasal congestion Valium [Diazepam] Intolerance Laughing hysterically, ultra sensitive Zithromax [Azithrom* Other: See Comments nausea PHYSICAL EXAM: BP 126/55 (BP Site: Left Arm, BP Position: Sitting, BP Cuff Size: Large Adult) Pulse (!) 56 SpO2 96% Gen- no distress Ext- palpable dp, bilateral lower extremity extensive 3-D spider veins and varicose veins Diagnostic tests reviewed for today's visit: Most recent labs Most recent imaging IMPRESSION: Ms. Berumen is a 79 year old female with venous insufficiency, varicose veins . PLAN and RECOMMENDATIONS: Reviewed PVRs from 2022. She should be able to heal toe nail procedure Continue compression, elevation, and walking Follow up as needed SIGNATURE: Alec Arthur DO PATIENT NAME: Cady Berumen DATE: January 17, 2025 TIME: 3:06 PM documented in this encounterC[facility]05-14-2025 NoteHNO ID: [id number] Author: MARIA DE JESUS DESOUZA APRN.CNP Service: ? Author Type: Nurse Practitioner Type: Progress Notes Filed: 01/04/2025 12:31 Note Text: Called Ms. Berumen to let her know that Dr. Shirley agrees with ablation and has sent a request to schedule. She is aware it will take at least 4 weeks to receive a call to schedule, Maria De Jesus Desouza APRN.CNPMercy [facility]05-14-[facility] History of Present illness Narrative* Maria De Jesus Desouza APRN.CNP - 01/04/2025 12:29 PM EDT Called Ms. Berumen to let her know that Dr. Shirley agrees with ablation and has sent a request to schedule. She is aware it will take at least 4 weeks to receive a call to schedule, Maria De Jesus Desouza APRN.ENOC documented in this encounterCincinnati [facility]05-13-2025 NotePatient Outreach (INTMMN) CADY BERUMEN ([id number]) 1945 F Date Time Provider Department 01/03/25 MOON TEIXEIRA During your visit today, we recorded the following information about you: Allergies As of Date: 01/03/2025 Noted Allergy Reaction FRAGRANCES 11/28/2014 3 - Cough 12 - Shortness of Breath BENZODIAZEPINES 09/08/2014 1 - Mental Status Change Comments: Pt sees colors and laughing CATS 11/28/2014 9 - Itching 12 - Shortness of Breath Comments: Eventual wheezing DUST MITES 11/28/2014 14 - Other: See Comments Comments: Positive allergy test GRASS POLLEN-DONNA, STANDARD 11/28/2014 9 - Itching Comments: Nasal congestion MOLD 11/28/2014 9 - Itching Comments: Nasal congestion SEASONAL ALLERGIES 11/08/2010 3 - Cough SULFA (SULFONAMIDE ANTIBIOTICS) 06/13/2005 9 - Itching TREES 11/28/2014 9 - Itching Comments: Nasal congestion VALIUM (DIAZEPAM) 09/23/2013 5 - Intolerance Comments: Laughing hysterically, ultra sensitive ZITHROMAX (AZITHROMYCIN) 06/08/2019 14 - Other: See Comments Comments: nausea Date Reviewed: 12/30/2024 Reviewed by: Maria De Jesus Desouza APRN.FILE SYSTEM INSTALLER - Fully Assessed Visit Diagnoses:Essential hypertension [I10] Medication management [Z79.899] Order(s):BASIC METABOLIC PANEL [SQBMP] Order #: [id number] FUTURE COMPLETE BLOOD COUNT [SQCBC] Order #: [id number] FUTURE Prescriptions as of 01/06/2025 - baclofen 10 mg tablet Take 1 tablet by mouth three times a day as needed (muscle spasms). - furosemide (LASIX) 20 mg tablet Take 20 mg by mouth once daily. - metoprolol tartrate, short acting, (LOPRESSOR) 25 mg tablet Take 12.5 mg by mouth as needed. Takes as needed for rapid HR - timolol maleate (TIMOPTIC) 0.5 % ophthalmic solution Use 1 Drop in both eyes twice daily. - warfarin (COUMADIN) 5 mg tablet Take 1 tablet by mouth daily except 7.5mg on ( [facility]) - Cholecalciferol, Vitamin D3, 50 mcg (2,000 unit) cap Take 2 capsules by mouth once daily. - COQ10, UBIQUINOL, ORAL Take 30 mg by mouth. - latanoprost (XALATAN) 0.005 % ophthalmic solution Use 1 Drop in both eyes daily at bedtime. Meds Comments as of 05/10/2015: Does not take antivert, ibuprofen, aleve. Does take boswelia frankincense and white willow. Problem List As Of Date 01/03/2025 Noted Resolved ALLERGIC RHINITIS NOS [J30.9] 06/19/2004 WOUND (NOT COMPLICATED) - OPEN FINGER(S) [S61.*06/14/2005 10/08/2014 GANGLION JOINT (Mucous cyst left hand 3rd digit*08/07/2005 10/08/2014 GENERAL OSTEOARTHROSIS [M15.9] 11/23/2006 Abdominal pain, unspecified site [R10.9] 11/23/2006 10/08/2014 Lumbago [M54.50] 11/16/2008 10/08/2014 Rectal bleeding [K62.5] 09/06/2010 10/08/2014 Cellulitis [L03.90] 06/24/2013 10/08/2014 Ulcer of ankle (HCC) [L97.309] 06/24/2013 10/08/2014 Venous stasis ulcer of right ankle limited to b*07/18/2013 06/09/2023 Vitamin D deficiency [E55.9] 09/20/2013 Frequency of urination [R35.0] 03/01/2014 10/08/2014 Urgency of urination [R39.15] 03/01/2014 10/08/2014 Nocturia [R35.1] 03/01/2014 Hesitancy of micturition [R39.11] 03/01/2014 Varicose veins of right lower extremity [I83.91]08/25/2014 BPPV (benign paroxysmal positional vertigo) [H8*10/30/2014 Vertigo of central origin [H81.4] 12/11/2014 Peripheral vertigo, unspecified [H81.399] 12/11/2014 Sprain of sacroiliac joint [S33.6XXA] 11/06/2015 Irritable bowel syndrome with both constipation*11/06/2015 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] 08/14/2017 Varicose veins of left lower extremity with dixon*03/03/2018 Asthma [J45.909] 04/20/2018 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 Author Type: Nurse Practitioner Type: Progress Notes Filed: 12/30/2024 13:58 Note Text: [facility] [place] Annette Velasquez Department of Cardiovascular Medicine SECTION OF CARDIAC PACING and ELECTROPHYSIOLOGY OUTPATIENT VISIT DATE December 30, 2024 OUTPATIENT VISIT TYPE ESTABLISHED PRIMARY CARE PHYSICIAN: Moon Teixeira [address] [place] [address] CHIEF COMPLAINT: No chief complaint on file. HISTORY OF PRESENT ILLNESS: Ms. Berumen is a 79 year old female who presents today for follow-up visit for atrial fibrillation. Established with Dr. Shirley, seen last in 2022. PMH of of paroxysmal atrial fibrillation, atrial tachycardia, and hypertension. She has a history of asthma from childhood. She was diagnosed with paroxysmal atrial fibrillation in 02/2021 via Holter monitor and has been treated with warfarin for stroke prophylaxis. She cannot tolerate rate-controlling medications and takes metoprolol on an as-needed basis only. She had an ED visit in September for atrial fibrillation with RVR at 110 bpm, which spontaneously converted to normal sinus rhythm. She also had an ED visit on 10/24/2024 for atrial flutter, which also spontaneously converted to normal sinus rhythm. An echocardiogram on 11/11/2024 showed an LVEF of 70%, stage 1 diastolic dysfunction, no regional wall motion abnormalities, and no valvular disease The patient reports an increase in palpitations, dyspnea, and extreme fatigue, which she attributes to frequent episodes of atrial fibrillation. She experiences a sensation of throat tightness during these episodes and notes that her heart rate exceeds 70 bpm. She describes a recent episode where her heart rate reached 137 bpm. She denies any chest pain, lightheadedness, or dizziness. She has not experienced any further syncope since the placement of her ILR on 12/01/2022. She reports that her blood pressure fluctuates significantly. She is currently taking warfarin and metoprolol as needed. She reports that her symptoms are affecting her quality of life. She describes an incident where she felt unable to continue walking due to dyspnea and fatigue. She reports significant stress due to financial issues and caregiving responsibilities for her daughter, which she believes may contribute to the increase in her atrial fibrillation episodes. PAST CARDIAC HISTORY: PAST MEDICAL HISTORY Diagnosis Date A-fib (HCC) February 2021 Asthma Atrial tachycardia (HCC) 10/14/2018 BPPV (benign paroxysmal positional vertigo) 10/30/2014 Degenerative disc disease 08/10/2014 Mild Degenerative disc disease C6-C7 Mild Anterolisthesis C7-T-1`- See scanned document Essential hypertension, benign Fibromyalgia Glaucoma, open angle Hypothyroidism 10/14/2018 Varicose veins 08/25/2014 Varicose veins of other sites Venous stasis ulcer of ankle 07/18/2013 Vestibular neuronitis Vitamin D deficiency 09/20/2013 PAST SURGICAL HISTORY Procedure Laterality Date ARTHRP TEMPOROMANDIBULAR JOINT W/WO AUTOGRAFT 1987 CATARACT SURGERY, COMPLEX 2006 Rt AND Lt COLONOSCOPY FLX DX W/COLLJ SPEC WHEN PFRMD 11/08/2010 Colonoscopy COLONOSCOPY FLX DX W/COLLJ SPEC WHEN PFRMD 08/23/2019 JOSEJulienne Estrella repeat is not recommended NEUROPLASTY AND/TRANSPOS MEDIAN NRV CARPAL TUNNE 1990 Carpal tunnel decomp-bilateral PAST SURGICAL HISTORY OF 08-21-05 EXCISION CYST LEFT MIDDLE FINGER PAST SURGICAL HISTORY OF right foot surgery- mortons neuroma PAST SURGICAL HISTORY OF 2013 left foot vein ablation TONSILLECTOMY PRIMARY/SECONDARY AGE 12/> 1962 SOCIAL HISTORY Social History Tobacco Use Smoking status: Never Smokeless tobacco: Never Vaping Use Vaping status: Never Used Substance Use Topics Alcohol use: Not Currently Drug use: No FAMILY HISTORY Problem Relation Age of Onset Heart Father Allergies Sister Breast Cancer Sister age of 50's with diagnosis Prostate Cancer Brother ALLERGIES: ALLERGIES Allergen Reactions Fragrances Cough, Shortness of Breath Benzodiazepines Mental Status Change Pt sees colors and laughing Cats Itching, Shortness of Breath Eventual wheezing Dust Mites Other: See Comments Positive allergy test Grass Pollen-Timoth* Itching Nasal congestion Mold Itching Nasal congestion Seasonal Allergies Cough Sulfa (Sulfonamide * Itching Trees Itching Nasal congestion Valium [Diazepam] Intolerance Laughing hysterically, ultra sensitive Zithromax [Azithrom* Other: See Comments nausea MEDICATIONS: baclofen 10 mg tablet Take 1 tablet by mouth three times a day as needed (muscle spasms). furosemide (LASIX) 20 mg tablet Take 20 mg by mouth once daily. metoprolol tartrate, short acting, (LOPRESSOR) 25 mg tablet Take 12.5 mg by mouth as needed. Takes as needed for rapid HR timolol maleate ( (more content not included)...[facility] 12-30-2024 History of Present illness Narrative* Maria De Jesus Desouza APRN.FILE SYSTEM INSTALLER - 12/30/2024 1:38 PM EDT Images from the original note were not included. [facility] [place] Annette Velasquez Department of Cardiovascular Medicine SECTION OF CARDIAC PACING and ELECTROPHYSIOLOGY OUTPATIENT VISIT DATE December 30, 2024 OUTPATIENT VISIT TYPE ESTABLISHED PRIMARY CARE PHYSICIAN: Moon Teixeira [address] [place] [address] CHIEF COMPLAINT: No chief complaint on file. HISTORY OF PRESENT ILLNESS: Ms. Berumen is a 79 year old female who presents today for follow-up visit for atrial fibrillation.Established with Dr. Shirley, seen last in 2022. PMH of of paroxysmal atrial fibrillation, atrial tachycardia, and hypertension. She has a history of asthma from childhood. She was diagnosed with paroxysmal atrial fibrillation in 02/2021 via Holter monitor and has been treated with warfarin for stroke prophylaxis. She cannot tolerate rate-controlling medications and takes metoprolol on an as-needed basis only. She had an ED visit in September for atrial fibrillation with RVR at 110 bpm, which spontaneously converted to normal sinus rhythm. She also had an ED visit on10/24/2024 for atrial flutter, which also spontaneously converted to normal sinus rhythm. An echocardiogram on 11/11/2024 showed an LVEF of 70%, stage 1 diastolic dysfunction, no regional wall motion abnormalities, and no valvular disease The patient reports an increase in palpitations, dyspnea, and extreme fatigue, which she attributesto frequent episodes of atrial fibrillation. She experiences a sensation of throat tightness duringthese episodes and notes that her heart rate exceeds 70 bpm. She describes a recent episode where her heart rate reached 137 bpm. She denies any chest pain, lightheadedness, or dizziness. She has not experienced any further syncope since the placement of her ILR on 12/01/2022. She reports that her blood pressure fluctuates significantly. She is currently taking warfarin and metoprolol as needed. She reports that her symptoms are affecting her quality of life. She describes an incident where she felt unable to continue walking due to dyspnea and fatigue. She reports significant stress due to financial issues and caregiving responsibilities for her daughter, which she believes may contribute to the increase in her atrial fibrillation episodes. PAST CARDIAC HISTORY: PAST MEDICAL HISTORY Diagnosis Date A-fib (HCC) February 2021 Asthma Atrial tachycardia (HCC) 10/14/2018 BPPV (benign paroxysmal positional vertigo) 10/30/2014 Degenerative disc disease 08/10/2014 Mild Degenerative disc disease C6-C7 Mild Anterolisthesis C7-T-1`- See scanned document Essential hypertension, benign Fibromyalgia Glaucoma, open angle Hypothyroidism 10/14/2018 Varicose veins 08/25/2014 Varicose veins of other sites Venous stasis ulcer of ankle 07/18/2013 Vestibular neuronitis Vitamin D deficiency 09/20/2013 PAST SURGICAL HISTORY Procedure Laterality Date ARTHRP TEMPOROMANDIBULAR JOINT W/WO AUTOGRAFT 1987 CATARACT SURGERY, COMPLEX 2005 Rt & Lt COLONOSCOPY FLX DX W/COLLJ SPEC WHEN PFRMD 11/08/2010 Colonoscopy COLONOSCOPY FLX DX W/COLLJ SPEC WHEN PFRMD 08/23/2019 [facility] not recommended NEUROPLASTY &/TRANSPOS MEDIAN NRV CARPAL TUNNE 1990 Carpal tunnel decomp-bilateral PAST SURGICAL HISTORY OF 08-21-05 EXCISION CYST LEFT MIDDLE FINGER PAST SURGICAL HISTORY OF right foot surgery- mortons neuroma PAST SURGICAL HISTORY OF 2013 left foot vein ablation TONSILLECTOMY PRIMARY/SECONDARY AGE 12/> 89 SOCIAL HISTORY Social History Tobacco Use Smoking status: Never Smokeless tobacco: Never Vaping Use Vaping status: Never Used Substance Use Topics Alcohol use: Not Currently Drug use: No FAMILY HISTORY Problem Relation Age of Onset Heart Father Allergies Sister Breast Cancer Sister age of 50's with diagnosis Prostate Cancer Brother ALLERGIES: ALLERGIES Allergen Reactions Fragrances Cough, Shortness of Breath Benzodiazepines Mental Status Change Pt sees colors and laughing Cats Itching, Shortness of Breath Eventual wheezing Dust Mites Other: See Comments Positive allergy test Grass Pollen-Timoth* Itching Nasal congestion Mold Itching Nasal congestion Seasonal Allergies Cough Sulfa (Sulfonamide * Itching Trees Itching Nasal congestion Valium [Diazepam] Intolerance Laughing hysterically, ultra sensitive Zithromax [Azithrom* Other: See Comments nausea MEDICATIONS: baclofen 10 mg tablet Take 1 tablet by mouth three times a day as needed (muscle spasms). furosemide (LASIX) 20 mg tablet Take 20 mg by mouth once daily. metoprolol tartrate, short acting, (LOPRESSOR) 25 mg tablet Take 12.5 mg by mouth as needed. Takes as needed for rapid HR timolol maleate (TIMOPTIC) 0.5 % ophthalmic solution Use 1 Drop in both eyes twice daily. warfarin (COUMADIN) 5 mg tablet Take 1 tablet by mouth daily except 7.5mg on ( [facility]) Cholecalciferol, Vitamin D3, 50 mcg (2,000 unit) cap Take 2 capsules by mouth once daily. COQ10, UBIQUINOL, ORAL Take 30 mg by mouth. latanoprost (XALATAN) 0.005 % ophthalmic solution Use 1 Drop in both eyes daily at bedtime. REVIEW OF SYSTEMS: GENERAL: Negative for: Weight loss or gain, Fever or Chills, Weakness and Sleep difficulties. HEENT: Negative for: Headache, Impaired Vision, Glasses, Hearing Impairment, Ringing in Ears, Nosebleeds, Poor dental care, Bleeding Gums, Dentures NECK: Negative for: Swelling, Pain, Stiffness RESPIRATORY: Negative for: Cough, Blood in Sputum, Shortness of breath, Wheezing, Apnea GASTROINTESTINAL: Negative for: Trouble swallowing, Heartburn, Change in bowel habits, Blood in stool, Dark black stools MUSCULOSKELETAL: Negative for: Muscle or joint pain, Stiffness , Joint swelling NEUROLOGIC/PSYCHIATRIC: Negative for: Weakness, Paralysis, Numbness, Tingling, Tremor, Nervousness,Depressed mood, Memory loss SKIN: Negative for: Rashes, Itching HEMATOLOGICAL/LYMPHATIC: Negative for: Easy bruising , Easy bleeding ENDOCRINE: Negative for: Heat or cold intolerance, Excessive sweating, Frequent urination, Frequentthirst PHYSICAL EXAMINATION: BP 141/57 Pulse (!) 51 Ht 162.6 cm (5' 4") Wt 75.8 kg (167 lb) BMI 28.67 kg/m General: Well appearing, in no acute distress, speaking in complete sentences. Neck: No jugular venous distention, no carotid bruits, carotids have a normal upstroke, no palpablethyromegaly. Lungs: Clear to auscultation bilaterally, no wheezing or rhonchi. Heart: Regular rhythm.carloz, PMI not displaced, S1, S2 normal, no S3, no S4, no heaves, no rub and no murmur. Abdomen: Soft, nontender, bowel sounds normal, no palpable organomegaly, no bruits. Extremities: No peripheral edema . Grade 2/4 distal pulses bilaterally. Neuro: Oriented to person, place and time, alert, cooperative, gait coordinated. CARDIOVASCULAR MEDICINE TESTING: Last ECHO Result Conclusion ECHO Collected: 02/22/2024 10:33 AM (Final result) Impression: CONCLUSIONS: - Exam indication: Atrial fibrillation - The left ventricle is normal in size. Left ventricular systolic function is normal. EF = 54 5% (2D biplane) Normal left ventricular diastolic function. - The right ventricle is normal in size. Right ventricular systolic function is normal. - The left atrial cavity is moderately dilated. - There are no significant valvular abnormalities. - There is moderate (2+) tricuspid valve regurgitation. - There is moderate (2+) pulmonic valve regurgitation. - Exam was compared with the prior echocardiographic exam performed on 10/13/22. Mild MR and TR were reported on prior echo. Prior EF was reported to be 60%. * * * Final * * * Tachycardia: AF * Stored EGMs are consistent with or suggestive of Atrial Fibrillation * Total episodes: 1 lasting 3 hours 6 minutes with an average ventricular rate of 95bpm * AT/AF burden: See PDF% Tachycardia: AF * Stored EGMs are consistent with or suggestive of Atrial Fibrillation * Total episodes: 1 * AT/AF burden: 2.4% * Ongoing at time of transmission Tachycardia: AF * Stored EGMs are consistent with or suggestive of Atrial Fibrillation/ AFL * Total episodes: 1 lasting 34 minutes with an average ventricular rate of 78bpm * AT/AF burden: See PDF% Tachycardia: AF w/RVR * Stored EGMs are consistent with or suggestive of Atrial Fibrillation with Rapid Ventricular Response * AT/AF [place]: See PDF% * Total episodes: 1 lasting 24 minutes with an average ventricular rate of 109bpm Tachycardia: AF w/RVR * Stored EGMs are consistent with or suggestive of Atrial Fibrillation with Rapid Ventricular Response * AT/AF [place]: Time in AT/AF 3.5% * Total episodes:2 * Longest episode: 3 hours and 26 mins.at 03:01 on 12/20/24, average rate 102 bpm. * Fastest episode: 34 mins. at 21:59 on 12/19/24, average hear rate 118 bpm. Patient on OAC (Warfrin). Premature Ventricular Contraction (PVC) * Stored EGMs are consistent with or suggestive of Premature Ventricular Contraction(s) PVCs (% beats) 0.2% Tachycardia: AF w/RVR * Stored EGMs are consistent with or suggestive of Atrial Fibrillation with Rapid Ventricular Response * AT/AF [place]: Time in AT/AF 10.7% * Total episodes:3 * Longest episode: 1h, 24m., avg/max rate: 83/125bpm. * Fastest episode:1h,6m., avg./max/rate:120/150 bpm PVCs (% beats) 0.2% Tachycardia: AF * Stored EGMs are consistent with or suggestive of Atrial Fibrillation * Total episodes: 1 * AT/AF burden: Time in AT/AF 1.0% lastin mins. avg/max rate: 78/125 bpm. Presenting sinus with ectopy. PVCs (% beats) 0.3% on OAC ( Warfarin ) Premature Atrial Contraction (PAC) * Stored EGMs are consistent with or suggestive of Premature Atrial Contraction(s) noted in presenting rhythm. Sinus rhythm with ectopy Tachycardia: AF * Stored EGMs are consistent with or suggestive of Atrial Fibrillation * Total episodes: 1 * AT/AF burden: Time in AT/AF 2.6% lasting 1 hour, 54 mins, avg./max rate: 91/140 bpm. PVCs (% beats) 0.3% Tachycardia: AF w/RVR * Stored EGMs are suggestive of Atrial Fibrillation with Rapid Ventricular Response * AT/AF [place]: 6.7% * Total episodes: 5 * Longest episode: 2h 8m, avg/max 79/125 bpm _(12/29/24, 11:13 pm)_ * Fastest episode: 12 mins, avg/max 133/150 bpm _(12/28/24, 2:47 am)_ * OAC: Coumadin Premature Ventricular Contraction (PVC) PVCs (% beats) 0.4% IMPRESSION: Ms. Berumen is a 79 year old female who presents today for follow-up visit for atrial fibrillation.Established with Dr. Shirley, seen last in 2022. PMH of of paroxysmal atrial fibrillation, atrial tachycardia, and hypertension. She has a history of asthma from childhood. She was diagnosed with paroxysmal atrial fibrillation in 02/2021 via Holter monitor and has been treated with warfarin for stroke prophylaxis. She cannot tolerate rate-controlling medications and takes metoprolol on an as-needed basis only. She had an ED visit in September for atrial fibrillation with RVR at 110 bpm, which spontaneously converted to normal sinus rhythm. She also had an ED visit on10/24/2024 for atrial flutter, which also spontaneously converted to normal sinus rhythm. An echocardiogram on 11/11/2024 showed an LVEF of 70%, stage 1 diastolic dysfunction, no regional wall motion abnormalities, and no valvular disease The patient reports an increase in palpitations, dyspnea, and extreme fatigue, which she attributesto frequent episodes of atrial fibrillation. She experiences a sensation of throat tightness duringthese episodes and notes that her heart rate exceeds 70 bpm. She describes a recent episode where her heart rate reached 137 bpm. She denies any chest pain, lightheadedness, or dizziness. She has not experienced any further syncope since the placement of her ILR on 12/01/2022. She reports that her blood pressure fluctuates significantly. She is currently taking warfarin and metoprolol as needed. She reports that her symptoms are affecting her quality of life. She describes an incident where she felt unable to continue walking due to dyspnea and fatigue. She reports significant stress due to financial issues and caregiving responsibilities for her daughter, which she believes may contribute to the increase in her atrial fibrillation episodes. PLAN AND RECOMMENDATIONS: 1. Paroxysmal atrial fibrillation (HCC) (I48.0) Atrial flutter, unspecified type (HCC) (I48.92) Patient has a history of paroxysmal atrial fibrillation diagnosed in February 2021 via Holter monitor, currently managed with as-needed metoprolol and warfarin for stroke prophylaxis. Recent increase in AFib episodes with associated palpitations and throat tightness; no further syncope reported. ILR placed on December 01, 2022, showing episodes of paroxysmal atrial fibrillation with an increasing burden, currently at 45%. ECHO on November 11, 2024, showed LVEF of 70% and stage 1 diastolic dysfunction. Patient experiences significant shortness of breath and fatigue, affecting quality of life. - Discussed treatment options including antiarrhythmic medications (dronedarone, flecainide) and ablation. - Patient expressed interest in ablation procedure to reduce frequency of episodes and improve quality of life. - Will send a message to Dr. Tilley to review patient's case and discuss potential scheduling of ablation. - Provided education on the ablation procedure, including benefits and potential wait time of up to6 months. - Continue monitoring with ILR and follow-up with Dr. Syed for further management. 2. Encounter for current long-term use of 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 (Z79.01) CHADS2-Vasc Score Breakdown 5 Total Score 1 Female 2 Age >= 75 years old 1 History of hypertension 1 History of vascular disease Patient is on long-term warfarin therapy for stroke prophylaxis due to paroxysmal atrial fibrillation. Continue warfarin therapy. 3. Essential (primary) hypertension (I10) Blood pressure reading today is 141/57 mmHg. Patient reports fluctuations in blood pressure. Monitor blood pressure and adjust management as needed. Recording using [employer] software for draft documentation of the visit was discussed with the patient/authorized vaccine customer representative; all questions welcomed and answered. Patient/authorized vaccine customer representative agreed to proceed CONTACT INFORMATION: Maria De Jesus Desouza APRN.ENOC Shirley's office To schedule an appointment please call -- [phone] Other questions or concerns please call his office at-- [phone] Fax#: [phone] [facility] Discharge summary Author Ousmane Montero [facility] Note Date/Time December 28, 2024 8:48am [facility] Physical Therapy [facility] [address] [place] [address] / REHABILITATION SERVICES DISCHARGE SUMMARY MR#: [id number] Acct: [id number] Name: CADY BERUMEN Rep #: [id number] : 1945 79 From: Ousmane Montero DPT, OCS, CSCS Referring Dr.: Dr. Moon Teixeira MD Status: REG R Insurance: [employer] [place] [employer] SELF PAY INSURANCE Patient Information Patient Information: CADY BERUMEN was seen in my office for initial evaluation on 11/02/24. The following Plan of Care was established for this patient: POC Established Initial Frequency: 2x /Week Initial Duration: 4-6 Weeks Anticipated Interventions Patient/Client Instruction: Educate patient on: Condition and Plan of Care For the Purpose of:: To improve nutrient delivery to tissue, To improve muscle performance and motor function, To increase tolerance to activity/condition/position, To improve ability of physical actions for home/community/work/leisure and To improve gait and locomotor functions Therapeutic Exercise to Include: Strength training, Balance training, Flexibiltytraining and Gait and locomotor training For the Purpose of:: To improve nutrient delivery to tissue, To improve muscle performance and motor function, To increase tolerance to activity/condition/position, To improve gait and locomotor functions and To improve safety Last Seen Last Seen: This patient was last seen in our office 11/04/24. Pertinent comments regardingtheir Physical therapy will appear below: Pt seen 2 visits of POC but has not returned for any further visits/ at this point, it has been over 6 weeks and I will discontinue due to nonattendance. At this point I will be discontinuing this patient from physical therapy. I would be happy to see this patient again in the future if found appropriate by the physician. Thank you! Ousmane Montero DPT, ROSENDA, CSCS Balance/Gait/Functional tests Balance/Special Test Scores Functional Gait Assessment Score: 22 % Disability: 26.6700 CATSIB Score (Max score 120 seconds): 100 Dizziness Score: 34 TUG Test Time Seconds: 8 Tug Test: <10 sec.=free mobile 30 Second Chair Rise Test Seconds: 11 <Electronically signed by Ousmane Montero DPT, ROSENDA, CSCS> 12/28/24 0848 CC: Dr. Moon Teixeira MD ~ EBG Signed [facility] Work Phone: 1(592) 581-108005-07-2025 Discharge summary [facility] Physical Therapy [facility] [address] [place] [address]. [address] [place] [address] / REHABILITATION SERVICES DISCHARGE SUMMARY MR#: [id number] Acct: [id number] Name: CADY BERUMEN Rep #: [id number] : 1945 79 From: Ousmane Montero DPT, ROSENDA, ALEXIS Referring Dr.: Dr. Moon Teixeira MD Status: REG R Insurance: [employer] SELF PAY INSURANCE Patient Information Patient Information: CADY BERUMEN was seen in my office for initial evaluation on 11/02/24. The following Plan of Care was established for this patient: POC Established Initial Frequency: 2x /Week Initial Duration: 4-6 Weeks Anticipated Interventions Patient/Client Instruction: Educate patient on: Condition and Plan of Care For the Purpose of:: To improve nutrient delivery to tissue, To improve muscle performance and motor function, To increase tolerance to activity/condition/position, To improve ability of physical actions for home/community/work/leisure and To improve gait and locomotor functions Therapeutic Exercise to Include: Strength training, Balance training, Flexibiltytraining and Gait and locomotor training For the Purpose of:: To improve nutrient delivery to tissue, To improve muscle performance and motor function, To increase tolerance to activity/condition/position, To improve gait and locomotor functions and To improve safety Last Seen Last Seen: This patient was last seen in our office 11/04/24. Pertinent comments regardingtheir Physical therapy will appear below: Pt seen 2 visits of POC but has not returned for any further visits/ at this point, it has been over 6 weeks and I will discontinue due to nonattendance. At this point I will be discontinuing this patient from physical therapy. I would be happy to see this patient again in the future if found appropriate by the physician. Thank you! Ousmane Montero, DPT, OCS, CSCS Balance/Gait/Functional tests Balance/Special Test Scores Functional Gait Assessment Score: 22 % Disability: 26.6700 CATSIB Score (Max score 120 seconds): 100 Dizziness Score: 34 TUG Test Time Seconds: 8 Tug Test: <10 sec.=free mobile 30 Second Chair Rise Test Seconds: 11 12/28/24 0848 CC: Dr. Moon Teixeira MD ~ EBG Signed [facility]04-15-2025 Telephone encounter Note* Telephone Encounter - Lindy Acevedo RN - 12/06/2024 12:55 PM EDT Returned phone call from Cady Berumen. No answer. Left VM. Patient was last seen in February 2023. Advise follow up to review any records. Lindy Acevedo RN [facility]04-15-2025 Miscellaneous Notes* Telephone Encounter - Lindy Acevedo RN - 12/06/2024 12:55 PM EDT Returned phone call from Cady Berumen. No answer. Left VM. Patient was last seen in February 2023. Advise follow up to review any records. Lindy Acevedo RN * Telephone Encounter - Honorio Cartwright - 12/02/2024 10:50 AM EDT December 02, 2024 Patient Contact Number: [phone] Patient last seen within the last year: No 03/10/23 Reason For Call: Test Results Physician:Mynor Shirley MD Patient was informed that non-urgent calls may be returned within the next three business days. Yes The patient is asking for a return phone call to go over the Holter results that were received 11/30/24. Honorio Rosas, Admin documented [facility] Telephone encounter Note * Telephone Encounter - Honorio Cartwright - 12/02/2024 10:50 AM EDT December 02, 2024 Patient Contact Number: [phone] Patient last seen within the last year: No 03/10/23 Reason For Call: Test Results Physician:Mynor Shirley MD Patient was informed that non-urgent calls may be returned within the next three business days. Yes The patient is asking for a return phone call to go over the Holter results that were received 11/30/24. Honorio Rosas, Admin [facility]04-09-2025 Telephone encounter Note* Telephone Encounter - Lindy Acevedo RN - 2024 4:22 PM EDT Awaiting results. Patient was last seen in 2022. Will need OPD visit. Lindy Acevedo RN [facility]04-09-2025 Miscellaneous Notes* Telephone Encounter - Lindy Acevedo RN - 2024 4:22 PM EDT Awaiting results. Patient was last seen in 2022. Will need OPD visit. Lindy Acevedo RN * Telephone Encounter - Honorio Cartwright - 2024 2:56 PM EDT 2024 Patient Contact Number: [phone] Patient last seen within the last year: No 03/10/23 Reason For Call: Other Issue: Physician:Mynor Shirley MD Patient was informed that non-urgent calls may be returned within the next three business days. Yes The patient called to report that she has a echo and Holter done locally. Patient has shortness of breath and the local provider is looking for Dr. Shirley assistance. Advised that I did check the system and care everywhere and the records are not posted. Informed to have the local office fax the results to [phone] Honorio Rosas, Admin documented in this [facility]04-[facility] Telephone encounter Note * Telephone Encounter - Honorio Cartwright - 2024 3:17 PM EDT Received faxed Holter report. Scanned in the system and the shared drive Honorio C., Admin [facility]04-09-2025 Miscellaneous Notes* Telephone Encounter - Honorio Cartwright - 2024 3:17 PM EDT Received faxed Holter report. Scanned in the system and the shared drive Honorio Rosas, Admin documented in this encounterC[facility]04-[facility] Telephone encounter Note * Telephone Encounter - Honorio Cartwright - 2024 2:56 PM EDT 2024 Patient Contact Number: [phone] Patient last seen within the last year: No 03/10/23 Reason For Call: Other Issue: Physician:Mynor Shirley MD Patient was informed that non-urgent calls may be returned within the next three business days. Yes The patient called to report that she has a echo and Holter done locally. Patient has shortness of breath and the local provider is looking for Dr. Shirley assistance. Advised that I did check the system and care everywhere and the records are not posted. Informed to have the local office fax the results to [phone] Honorio Rosas, Admin [facility]04-07-2025 Radiology Diagnostic study note [facility] Imaging Services [address] [place] [address] Chest 1 View (Portable) MR#: [id number] Acct: [id number] Name: CADY BERUMEN Rep #: [id number] : 1945 F 78 From: Maida Godoy MD PCP: Dr. Moon Teixeira MD Status: REG E R Study:Chest 1 View (Portable) Date of Exam: 11/28/24 Exam# [id number] Ordering Dr: Phil Ohara DO PROCEDURE: CHEST 1 VIEW (PORTABLE) (RADCXPA_P), 11/28/2024 REASON FOR EXAM: DYSPNEA TECHNIQUE: A single portable AP view of the chest was obtained. COMPARISON: 09/26/2024 FINDINGS: Heart: Unremarkable. Mediastinum: Atherosclerosis. Lungs/pleura: No focal consolidation. No sizeable pleural effusion or visible pneumothorax. Bones: Suspect demineralization. Lines and support devices: None. Other: Similar implantable loop recorder.. RAD/Chest 1 View (Portable) IMPRESSION: 1. No visible acute cardiopulmonary findings 2. Additional description as above. Reading Location: [id number] CC: Dr. Moon Teixeira MD; Dr. Isreal Ohara DO ~ Audit Director: Signed [facility]04-07-2025 Telephone encounter Note* Telephone Encounter - Nydia Encarnacion RN - 11/28/2024 1:29 PM EDT Patient calls and notified of provider recommendations below. Patient voices understanding. Nydia Encarnacion RN [place] [address]-07-2025 Miscellaneous Notes* Telephone Encounter - Nydia Encarnacion RN - 11/28/2024 1:29 PM EDT Patient calls and notified of provider recommendations below. Patient voices understanding. Nydia Encarnacion RN * Telephone Encounter - Moon Teixeira MD - 11/28/2024 1:01 PM EDT Ideally she needs to go the ER due to worsening SOB. I am reviewed her echo, she could have diastolic heart failure and she was seen to be in Afib in the rhythm check that was done november 15 Both reasons for her to go to the ER Regards, Moon Teixeira MD * Telephone Encounter - Karen Anderson RN - 11/28/2024 12:34 PM EDT Checking with Dr. Teixeira if pt needs to be seen within 4 hours as protocol recommends or if pt just needs to reach out to cardiology since current pulse and oxygen level is WNL for patient. Last BP 162/90 and pulse 53 and oxygen level has been stable between 94-98 percent. This SOB has been an ongoing problem for pt but pt has felt worse yesterday and today. Reason for Disposition [1] MILD difficulty breathing (e.g., minimal/no SOB at rest, SOB with walking, pulse <100) AND [2] NEW-onset or WORSE than normal Answer Assessment - Initial Assessment Questions 1. RESPIRATORY STATUS: Pt calling in c/o shortness or breath. Feels like she can't catch her breath. Cannot lay flat as she cannot get her breath. At 4 am this morning, pt was not feeling very well. States her BP at tat time was 140/108 and pulse was 129. Pt with hx of Afib and Aflutter. Was in ER 09/26/24 because she had difficulty taking a deep breath. 2. ONSET: 3. PATTERN comes and goes 4. SEVERITY: moderate - MILD: No SOB at rest, mild SOB with walking, speaks normally in sentences, can lie down, no retractions, pulse < 100. - MODERATE: SOB at rest, SOB with minimal exertion and prefers to sit, cannot lie down flat, speaksin phrases, mild retractions, audible wheezing, pulse 100 to 120. - SEVERE: Very SOB at rest, speaks in single words, struggling to breathe, sitting hunched forward,retractions, pulse > 120 5. RECURRENT SYMPTOM: yes see ER notes 6. CARDIAC HISTORY: Afib and Aflutter 7. LUNG HISTORY: asthma as a child 8. CAUSE: pt unsure 9. OTHER SYMPTOMS: left chest "soreness" 10. O2 SATURATION MONITOR: Pt states her reading right now is pulse 59 and oxygen level is 98%. BP is 162/90 and pulse 59. 11. : n/a 12. TRAVEL: n/a Protocols used: Breathing Julghorruq-[id number]-MD * Telephone Encounter - Karen Anderson RN - 11/28/2024 12:04 PM EDT Pt calling in as she wanted to ask about a referral to pulmonology. Pt states she has been having problems with SOB since early October when she was in the ER on 10/24. Per computer, it appears pt was inER 09/26 not 10/24. Pt has had follow up with cardiology Dr. Yinka Lovelace. She was on Lasix ordered by cardiology but is not on that anymore as it really didn't help. She had an echo done ordered by cardiology and she states she did not have CHF and her EF was 55%. Pt also wore a Holter Monitor but has not heard the results yet from cardiology. Pt had Afib and Aflutter while in the ER in Sep but converted on her own back to NSR. Pt has not talked with [facility] about her continuing SOB.Pt states she had called and left them a msg asking about her Holter monitor results. Asked her to please call them back and let them know she is still having the SOB. Pt states as a child she had asthma and things she had to see pulmonology. She is wondering if thatis what is causing her SOB now. States she used to use an Advair inhaler. Pt states she cannot climb stairs or go up an incline without panting. documented in this encounterC[facility]04-07-2025 Telephone encounter Note * Telephone Encounter - Moon Teixeira MD - 11/28/2024 1:01 PM EDT Ideally she needs to go the ER due to worsening SOB. I am reviewed her echo, she could have diastolic heart failure and she was seen to be in Afib in the rhythm check that was done november 15 Both reasons for her to go to the ER Dany, Moon Teixeira MD [facility]04-07-2025 Telephone encounter Note* Telephone Encounter - Karen Anderson RN - 11/28/2024 12:34 PM EDT Checking with Dr. Teixeira if pt needs to be seen within 4 hours as protocol recommends or if pt just needs to reach out to cardiology since current pulse and oxygen level is WNL for patient. Last BP 162/90 and pulse 53 and oxygen level has been stable between 94-98 percent. This SOB has been an ongoing problem for pt but pt has felt worse yesterday and today. Reason for Disposition [1] MILD difficulty breathing (e.g., minimal/no SOB at rest, SOB with walking, pulse <100) AND [2] NEW-onset or WORSE than normal Answer Assessment - Initial Assessment Questions 1. RESPIRATORY STATUS: Pt calling in c/o shortness or breath. Feels like she can't catch her breath. Cannot lay flat as she cannot get her breath. At 4 am this morning, pt was not feeling very well. States her BP at tat time was 140/108 and pulse was 129. Pt with hx of Afib and Aflutter. Was in ER 09/26/24 because she had difficulty taking a deep breath. 2. ONSET: 3. PATTERN comes and goes 4. SEVERITY: moderate - MILD: No SOB at rest, mild SOB with walking, speaks normally in sentences, can lie down, no retractions, pulse < 100. - MODERATE: SOB at rest, SOB with minimal exertion and prefers to sit, cannot lie down flat, speaksin phrases, mild retractions, audible wheezing, pulse 100 to 120. - SEVERE: Very SOB at rest, speaks in single words, struggling to breathe, sitting hunched forward,retractions, pulse > 120 5. RECURRENT SYMPTOM: yes see ER notes 6. CARDIAC HISTORY: Afib and Aflutter 7. LUNG HISTORY: asthma as a child 8. CAUSE: pt unsure 9. OTHER SYMPTOMS: left chest "soreness" 10. O2 SATURATION MONITOR: Pt states her reading right now is pulse 59 and oxygen level is 98%. BP is 162/90 and pulse 59. 11. : n/a 12. TRAVEL: n/a Protocols used: Breathing Untuxernqg-[id number]-PY [facility]04-07-2025 Telephone encounter Note* Telephone Encounter - Karen Anderson RN - 11/28/2024 12:04 PM EDT Pt calling in as she wanted to ask about a referral to pulmonology. Pt states she has been having problems with SOB since early October when she was in the ER on 10/24. Per computer, it appears pt was inER 09/26 not 10/24. Pt has had follow up with cardiology Dr. Yinka Lovelace. She was on Lasix ordered by cardiology but is not on that anymore as it really didn't help. She had an echo done ordered by cardiology and she states she did not have CHF and her EF was 55%. Pt also wore a Holter Monitor but has not heard the results yet from cardiology. Pt had Afib and Aflutter while in the ER in Sep but converted on her own back to NSR. Pt has not talked with [facility] about her continuing SOB.Pt states she had called and left them a msg asking about her Holter monitor results. Asked her to please call them back and let them know she is still having the SOB. Pt states as a child she had asthma and things she had to see pulmonology. She is wondering if thatis what is causing her SOB now. States she used to use an Advair inhaler. Pt states she cannot climb stairs or go up an incline without panting. [facility]03-21-2025 Telephone encounter Note* Telephone Encounter - Nydia Encarnacion RN - 11/11/2024 8:04 AM EDT The patient has been identified by name and date of : Yes Caregiver verified no other encounters exist for this prescription request: Yes Caregiver confirmed with patient/requestor that no other refills are due, in the near future, with this provider at this time: Yes The last office visit in the department: 10/21/2024 Does the patient have a future office visit with this provider/department: Yes 01/18/2025 Requested Prescriptions Pending Prescriptions Disp Refills baclofen 10 mg tablet 30 tablet 1 Sig: Take 1 tablet by mouth three times a day as needed (muscle spasms). Nydia Encarnacion RN November 11, 2024 8:04 AM [facility]03-21-2025 Miscellaneous Notes* Telephone Encounter - Nydia Encarnacion RN - 11/11/2024 8:04 AM EDT The patient has been identified by name and date of : Yes Caregiver verified no other encounters exist for this prescription request: Yes Caregiver confirmed with patient/requestor that no other refills are due, in the near future, with this provider at this time: Yes The last office visit in the department: 10/21/2024 Does the patient have a future office visit with this provider/department: Yes 01/18/2025 Requested Prescriptions Pending Prescriptions Disp Refills baclofen 10 mg tablet 30 tablet 1 Sig: Take 1 tablet by mouth three times a day as needed (muscle spasms). Nydia Encarnacion RN November 11, 2024 8:04 AM documented in this encounterCinc[facility]03-21-2025 Telephone encounter Note * Telephone Encounter - Nydia Encarnacion RN - 11/11/2024 8:03 AM EDT Patient called and notified of provider response below: Please tell her to call the music video producer about her Heart rate being less than 40 and her dizziness. Baclofen it fine to take Moon Saenz MD Patient voices understanding. [facility]03-21-2025 Miscellaneous Notes* Telephone Encounter - Nydia Encarnacion RN - 11/11/2024 8:03 AM EDT Patient called and notified of provider response below: Please tell her to call the music video producer about her Heart rate being less than 40 and her dizziness. Baclofen it fine to take Moon Saenz MD Patient voices understanding. * Telephone Encounter - Nydia Encarnacion RN - 11/10/2024 3:40 PM EDT Patient calls and notified of provider response on MRI. Patient voices understanding on aspirin andnsaids.. Patient states that that when her back pain gets bad she does use muscle relaxant which isbaclofen. Patient asking if this is ok? Patient calls and states that her balance problems has been worse. Patient's blood pressure yesterday morning when she woke up her blood pressure was 155/75 and pulse was 37. Patient does have an ECHO scheduled for tomorrow. Dr. Lovelace ordered this for cardiology. Patient asking if MRI of the Brainresults is the reason for his increased dizziness? documented in this encounterC[facility]03-20-2025 Telephone encounter Note * Telephone Encounter - Nydia Encarnacion RN - 11/10/2024 3:40 PM EDT Patient calls and notified of provider response on MRI. Patient voices understanding on aspirin andnsaids.. Patient states that that when her back pain gets bad she does use muscle relaxant which isbaclofen. Patient asking if this is ok? Patient calls and states that her balance problems has been worse. Patient's blood pressure yesterday morning when she woke up her blood pressure was 155/75 and pulse was 37. Patient does have an ECHO scheduled for tomorrow. Dr. Lovelace ordered this for cardiology. Patient asking if MRI of the Brainresults is the reason for his increased dizziness? [facility]03-19-20[facility] History of Present illness Narrative* Mago Santos RT(R) - 11/09/2024 1:30 PM EDT Radiology Service Progress Note PATIENT NAME: Cady Berumen DATE OF SERVICE: November 09, 2024 TIME: 1:43 PM PATIENT IDENTITY VERIFICATION COMPLETED USING TWO (2) IDENTIFIERS: Name and Date of confirmedby patient verbally. FALL SCREENING: Has the patient had 2 falls in the last year or 1 fall with injury or currently using an Ambulatory Assistive Device (Walker, Cane, Wheelchair, Crutches, etc.)? No PATIENT GENDER DATA: Assigned female at . status: : No status:NO. PATIENT RELEVANT IMPLANT DATA REVIEWED: Yes PATIENT PRESENTS WITH AN IMPLANTABLE OR ATTACHED AWS CONSULTANT: No RADIOLOGY DEPARTMENT: MR; Exam(s) Completed: Head: Routine Brain PERIPHERAL IV DATA: Not applicable SIGNED BY: RT Miryam(Frederick) November 09, 2024 1:43 PM documented in this encounterCinc[facility]03-19-2025 NoteHNO ID: [id number] Author: MAGO SANTOS RT(Frederick) Service: ? Author Type: Technologist Type: Progress Notes Filed: 11/09/2024 13:43 Note Text: Radiology Service Progress Note PATIENT NAME: Cady Berumen DATE OF SERVICE: November 09, 2024 TIME: 1:43 PM PATIENT IDENTITY VERIFICATION COMPLETED USING TWO (2) IDENTIFIERS: Name and Date of confirmed by patient verbally. FALL SCREENING: Has the patient had 2 falls in the last year or 1 fall with injury or currently using an Ambulatory Assistive Device (Walker, Cane, Wheelchair, Crutches, etc.)? No PATIENT GENDER DATA: Assigned female at . status: : No status: NO. PATIENT RELEVANT IMPLANT DATA REVIEWED: Yes PATIENT PRESENTS WITH AN IMPLANTABLE OR ATTACHED AWS CONSULTANT: No RADIOLOGY DEPARTMENT: MR; Exam(s) Completed: Head: Routine Brain PERIPHERAL IV DATA: Not applicable SIGNED BY: Mago Santos, RT(R) November 09, 2024 1:43 [facility]03-05-2025 Telephone encounter Note* Telephone Encounter - Mago Cerrato LPN - 10/26/2024 3:15 PM EST Faxed order, face sheet and CAMRON to [facility] for patient. Mago Cerrato LPN October 26, 2024 3:15 PM [facility]03-05-2025 Miscellaneous Notes* Telephone Encounter - Mago Cerrato LPN - 10/26/2024 3:15 PM EST Faxed order, face sheet and CAMRON to [facility] for patient. Mago Cerrato LPN October 26, 2024 3:15 PM documented in this encounterCinc[facility]03-05-2025 NoteHNO ID: [id number] Author: MOON TEIXEIRA MD Service: ? Author Type: Physician Type: Progress Notes Filed: 10/26/2024 15:09 Note Text: [facility] Initial Consult Cady Berumen is a 78 year old year old female who comes for Comprehensive Geriatric Assessment. Pt accompanied by: self Caregivers involved in care: HPI: Complains of dysequilibrium. 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 Especially when walking. She catches herself, with the furniture or the wall. The room or she is not spinning and it is not for certain positions that she feels dizzy. Any kind of shifting movements which are repeated causes her to have issues. Denies having hallucinations, anosmia, changes in handwriting, constipation, head injuries. Urinary incontinence has improved. She is not very open to trial of multiple medications. Stopped her medications for incontinence, anxiety depression, never started medication for cholesterol. Any Family History of dementia? None Are you or your spouse a ? Yes, spouse. Alzheimer Questionnaire Long-term Memory: Difficulty remembering distant events from the past like childhood, previous employment, wedding: NO Behavioral/personality: Withdrawn/Depressed: NO Crying spells: NO Anxious: YES History of aggression: NO History of irritability: NO Apathy:NO Recent changes in weight or appetite: NO Alcohol or Drug use: NO Smoking? NO Sleep: Do you snore loudly (louder than talking or loud enough to be heard through closed doors)? NO Do you often feel tired, fatigued, or sleepy during daytime? NO Has anyone observed you stop breathing during your sleep? NO Are you restless when you sleep at night? NO Do you have problems falling a sleep? NO Do you have problems staying a sleep? NO Psychosis: Hallucinations or delusions: NO Suicidal or homicidal ideations: NO Obsessions, compulsions, or hoarding: NO Safety: Does pt know his/her address? NO What would you do if there was a fire? Get out and call 911 Social History: Primary language: Swiss Marital Status: Living situation: Home w/ Family Socially engaged? (participates in activities such as clubs, hoahaoism, community center, sports, games, visiting friends/relatives, etc?): YES she is in a community that every one gets around each morning. Caregiver [place] and Stress Are your feeling overwhelmed? NO Do you have concerns about your own health? NO Are you neglecting your own needs? NO Do you have financial concerns? NO Do your fear loss of employment? NO Do you have concerns about verbal/physical abuse? NO Do you feel that you are still capable of taking care of your relative? NO Are you willing to continue being in the caregiver role? NO B-ADLs: (I=independent,A=assistance,D=dependent) ?Bathing: I, Dressing: I, Toileting: I, Transferring:I, Continence: I, Feeding: I, (Jeffers Index): I-ADLs: Ability to use phone: I, Shopping: I, Cooking: I, Housekeeping: I, Laundry: I, Transportation:I, Medications: {I, Handle Finances: I. ([place]ona scale): PMHx: PAST MEDICAL HISTORY Diagnosis Date A-fib (HCC) February 2021 Asthma Atrial tachycardia (HCC) 10/14/2018 BPPV (benign paroxysmal positional vertigo) 10/30/2014 Degenerative disc disease 08/10/2014 Mild Degenerative disc disease C6-C7 Mild Anterolisthesis C7-T-1`- See scanned document Essential hypertension, benign Fibromyalgia Glaucoma, open angle Hypothyroidism 10/14/2018 Varicose veins 08/25/2014 Varicose veins of other sites Venous stasis ulcer of ankle 07/18/2013 Vestibular neuronitis Vitamin D deficiency 09/20/2013 PSHx: PAST SURGICAL HISTORY Procedure Laterality Date ARTHRP TEMPOROMANDIBULAR JOINT W/WO AUTOGRAFT 1987 CATARACT SURGERY, COMPLEX 2006 Rt AND Lt COLONOSCOPY FLX DX W/COLLJ SPEC WHEN PFRMD 11/08/2010 Colonoscopy COLONOSCOPY FLX DX W/COLLJ SPEC WHEN PFRMD 08/23/2019 [facility] Florez[facility] repeat is not recommended NEUROPLASTY AND/TRANSPOS MEDIAN NRV CARPAL TUNNE 1990 Carpal tunnel decomp-bilateral PAST SURGICAL HISTORY OF 08-21-05 EXCISION CYST LEFT MIDDLE FINGER PAST SURGICAL HISTORY OF right foot surgery- mortons neuroma PAST SURGICAL HISTORY OF 2013 left foot vein ablation TONSILLECTOMY PRIMARY/SECONDARY AGE 12/1961 Home Meds: Prior to Admission medications : Medication furosemide (LASIX) 20 mg tablet, Sig Take 20 mg by mouth once daily., Start Date 10/13/24, End Date , Taking? Yes, Authorizing Provider Provider, [facility] Medication mirabegron (MYRBETRIQ) 25 mg Tb24, Sig Take 1 tablet by mouth once daily. Patient not taking: Reported on 10/26/2024, Start Date 07/26/24, End Date , Taking? , Authorizing Provider Yaa Ashby PA-C Medication melatonin 1 mg subl, Sig Dissolve 1 t (more content not included)... [facility]03-05-2025 History of Present illness Narrative* Moon Teixeira MD - 10/26/2024 2:04 PM EST [facility] Initial Consult Cady Berumen is a 78 year old year old female who comes for Comprehensive Geriatric Assessment. Pt accompanied by: self Caregivers involved in care: HPI: Complains of dysequilibrium. 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 Especially when walking. She catches herself, with the furniture or the wall. The room or she is not spinning and it is notfor certain positions that she feels dizzy. Any kind of shifting movements which are repeated causes her to have issues. Denies having hallucinations, anosmia, changes in handwriting, constipation, head injuries. Urinaryincontinence has improved. She is not very open to trial of multiple medications. Stopped her medications for incontinence, anxiety depression, never started medication for cholesterol. Any Family History of dementia? None Are you or your spouse a ? Yes, spouse. Alzheimer Questionnaire Long-term Memory: Difficulty remembering distant events from the past like childhood, previous employment, wedding: NO Behavioral/personality: Withdrawn/Depressed: NO Crying spells: NO Anxious: YES History of aggression: NO History of irritability: NO Apathy:NO Recent changes in weight or appetite: NO Alcohol or Drug use: NO Smoking? NO Sleep: Do you snore loudly (louder than talking or loud enough to be heard through closed doors)? NO Do you often feel tired, fatigued, or sleepy during daytime? NO Has anyone observed you stop breathing during your sleep? NO Are you restless when you sleep at night? NO Do you have problems falling a sleep? NO Do you have problems staying a sleep? NO Psychosis: Hallucinations or delusions: NO Suicidal or homicidal ideations: NO Obsessions, compulsions, or hoarding: NO Safety: Does pt know his/her address? NO What would you do if there was a fire? Get out and call 911 Social History: Primary language: Swiss Marital Status: Living situation: Home w/ Family Socially engaged? (participates in activities such as clubs, hoahaoism, community center, sports, games, visiting friends/relatives, etc?): YES she is in a community that every one gets around each morning. Caregiver [place] and Stress Are your feeling overwhelmed? NO Do you have concerns about your own health? NO Are you neglecting your own needs? NO Do you have financial concerns? NO Do your fear loss of employment? NO Do you have concerns about verbal/physical abuse? NO Do you feel that you are still capable of taking care of your relative? NO Are you willing to continue being in the caregiver role? NO B-ADLs: (I=independent,A=assistance,D=dependent) ?Bathing: I, Dressing: I, Toileting: I, Transferring:I, Continence: I, Feeding: I, (Jeffers Index): I-ADLs: Ability to use phone: I, Shopping: I, Cooking: I, Housekeeping: I, Laundry: I, Transportation:I, Medications: {I, Handle Finances: I. (Monona scale): PMHx: PAST MEDICAL HISTORY Diagnosis Date A-fib ([facility]) February 2021 Asthma Atrial tachycardia ([facility]) 10/14/2018 BPPV (benign paroxysmal positional vertigo) 10/30/2014 Degenerative disc disease 08/10/2014 Mild Degenerative disc disease C6-C7 Mild Anterolisthesis C7-T-1`- See scanned document Essential hypertension, benign Fibromyalgia Glaucoma, open angle Hypothyroidism 10/14/2018 Varicose veins 08/25/2014 Varicose veins of other sites Venous stasis ulcer of ankle 07/18/2013 Vestibular neuronitis Vitamin D deficiency 09/20/2013 PSHx: PAST SURGICAL HISTORY Procedure Laterality Date ARTHRP TEMPOROMANDIBULAR JOINT W/WO AUTOGRAFT 1988 CATARACT SURGERY, COMPLEX 2005 Rt & Lt COLONOSCOPY FLX DX W/COLLJ SPEC WHEN PFRMD 11/08/2010 Colonoscopy COLONOSCOPY FLX DX W/COLLJ SPEC WHEN PFRMD 08/23/2019 [facility] repeat is not recommended NEUROPLASTY &/TRANSPOS MEDIAN NRV CARPAL ALYSA 1990 Carpal tunnel decomp-bilateral PAST SURGICAL HISTORY OF 08-21-05 EXCISION CYST LEFT MIDDLE FINGER PAST SURGICAL HISTORY OF right foot surgery- mortons neuroma PAST SURGICAL HISTORY OF 2013 left foot vein ablation TONSILLECTOMY PRIMARY/SECONDARY AGE 12/ 89 Home Meds: Prior to Admission medications : Medication furosemide (LASIX) 20 mg tablet, Sig Take 20 mg by mouth once daily., Start Date 10/13/24, End Date , Taking? Yes, Authorizing Provider Provider, Ccf Medication mirabegron (MYRBETRIQ) 25 mg Tb24, Sig Take 1 tablet by mouth once daily. Patient not taking: Reported on 10/26/2024, Start Date 07/26/24, End Date , Taking? , Authorizing Provider Yaa Ashby PA-C Medication melatonin 1 mg subl, Sig Dissolve 1 tablet under the tongue once daily. Patient not taking: Reported on 10/26/2024, Start Date 04/05/24, End Date , Taking? , Authorizing Provider Moon Teixeira MD Medication escitalopram oxalate (LEXAPRO) 5 mg tablet, Sig Take 1 tablet by mouth once daily. Take one pill at night for 7 days and then increase to 2 pills at night Patient not taking: Reported on 10/26/2024, Start Date 04/05/24, End Date , Taking? , Authorizing Provider Moon Teixeira MD Medication baclofen 10 mg tablet, Sig Take 1 tablet by mouth three times a day as needed (muscle spasms)., Start Date 02/10/24, End Date , Taking? Yes, Authorizing Provider Nirali Almanza PA-C Medication rosuvastatin (CRESTOR) 5 mg tablet, Sig Take 1 tablet by mouth daily at bedtime. Patient not taking: Reported on 10/26/2024, Start Date 11/09/23, End Date , Taking? , Authorizing Provider ANNELIESE DALE Medication Boswellia eccile extract (BOSWELLIA CECILE XT, BULK,) 70 % powd, Sig 1 Each two times a day., Start Date , End Date , Taking? Yes, Authorizing Provider Provider, Cc Medication prasterone, DHEA, (DHEA ORAL), Sig Take by mouth. 0.15 mg Patient not taking: Reported on 10/26/2024, Start Date , End Date , Taking? , Authorizing Provider Provider, [facility] Medication metoprolol tartrate, short acting, (LOPRESSOR) 25 mg tablet, Sig Take 12.5 mg by mouth as needed. Takes as needed for rapid HR, Start Date 09/09/22, End Date , Taking? Yes, Authorizing Provider Provider, Ccf Medication timolol maleate (TIMOPTIC) 0.5 % ophthalmic solution, Sig Use 1 Drop in both eyes twice daily., Start Date 07/09/21, End Date , Taking? Yes, Authorizing Provider Provider, Ccf Medication warfarin (COUMADIN) 5 mg tablet, Sig Take 1 tablet by mouth daily except 7.5mg on ( [facility]), Start Date 05/21/21, End Date , Taking? Yes, Authorizing Provider ANNELIESE DALE Medication ALPHA LIPOIC ACID ORAL, Sig Take by mouth. Patient not taking: Reported on 10/26/2024, Start Date , End Date , Taking? , Authorizing Provider Provider, Ccf Medication Cholecalciferol, Vitamin D3, 50 mcg (2,000 unit) cap, Sig Take 2 capsules by mouth once daily., Start Date 09/25/20, End Date , Taking? Yes, Authorizing Provider Chaitanya Estrella III, MD Medication COQ10, UBIQUINOL, ORAL, Sig Take 30 mg by mouth. , Start Date , End Date , Taking? Yes, Authorizing Provider Provider, Ccf Medication latanoprost (XALATAN) 0.005 % ophthalmic solution, Sig Use 1 Drop in both eyes daily at bedtime. , Start Date 08/13/15, End Date , Taking? Yes, Authorizing Provider Provider, Cc Other OTC med/supplements: None Medication Review: - ANY HIGH RISK MEDICATIONS (STOPP CRITERIA): NO ALLERGIES Allergen Reactions Fragrances Cough, Shortness of Breath Benzodiazepines Mental Status Change Pt sees colors and laughing Cats Itching, Shortness of Breath Eventual wheezing Dust Mites Other: See Comments Positive allergy test Grass Pollen-Timoth* Itching Nasal congestion Mold Itching Nasal congestion Seasonal Allergies Cough Sulfa (Sulfonamide * Itching Trees Itching Nasal congestion Valium [Diazepam] Intolerance Laughing hysterically, ultra sensitive Zithromax [Azithrom* Other: See Comments nausea Review of Systems Difficulty chew/swallow: no Pain: no Tremor: no Incontinence - During the last 3 months did you leak urine? 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 No deformities, edema, or skin discoloration. Musculoskeletal: Normal Gait Neuro:Deep Tendon reflexes :2/4 , Both Cranial nerves Extremities: Extremities normal. No deformities, edema, or skin discoloration. Musculoskeletal: No rigidity, tremor or bradykinesia is noted. Rhomberg: Negative. Neuro:Deep Tendon reflexes :2/4 , Both Lurias test: was normal. Some prompting as A tandem gait testing was abnormal. Lower extremity weakness mildly present. Negative pronator test Gait: Unsteadiness: NO Shuffling: NO Tremors: NO Slowness: NO Andrea Cognitive Exam (MOCA): 28/30 CDR Dementia Scale 1) Subjective Memory Loss: yes 2) Measurable Memory Loss: NO 3) IADLs: NO 4) BADLs: NO Driving Safely: Yes > 50% 6) Medications: No Level: cdr 0 Depression Screening/Evaluation: PHQ9: 9 Labs: Reviewed in Epic. Brain Imaging:None available today. Assessment and Plan: I. Medical /Mental Status/Decision Making Capacity 1-Mentation # Subjective memory loss without measurable memory loss with MOCA 28 /30 . Patient does not have functional impairment. The main complaint and concern is that she is deviating to the left side when she walks. But there is no pronator drift seen on exam today. So MRI is ordered to evaluate mini stroke. Her lacunar infarcts CDR0 FAST5 Plan: Continue active exercise and socialization. Reduce stress as much as possible Reassess in 1 to 2 years 2-Mobility -- Lower extremity weakness present, balance impaired. We were asked the patient to go for physical therapy especially in view of her shifting to the left side Plan Physical therapy 3-Medications and chronic medical conditions Tinnitus with the more dizziness and moving to the left side, vestibular rehab for her Plan 4- Matters Most - She has a living will advance directives. We asked her to get us a copy of it REFERRALS AND RECOMMENDATIONS 1. Discussed the cognitive benefits of memory exercises and reviewed examples 2. Discussed the cognitive benefits of physical exercise and socialization Voice recognition software was used to compose this office note. Please excuse any unintended typographical errors. Moon Teixeira MD [place] [facility] * Mago Cerrato LPN - 10/26/2024 1:33 PM EST Patient presents for geriatric consult. Rooming intake completed with patient to ensure accuracy. PHQ-9, MOCA reviewed with patient and entered into questionnaires. Living with Traci daughter right now. Mago Cerrato LPN documented in this encounterC[facility]03-[facility]-2025 NoteHNO ID: [id number] Author: MAGO CERRATO LPN Service: ? Author Type: LICENSED NURSE Type: Progress Notes Filed: 10/26/2024 15:09 Note Text: Patient presents for geriatric consult. Rooming intake completed with patient to ensure accuracy. PHQ-9, MOCA reviewed with patient and entered into questionnaires. Living with Traci daughter right now. [facility] Telephone encounter Note* Telephone Encounter - Nazanin Reyes MA - 10/24/2024 11:06 AM EST Patient notified. [facility]03-03-2025 Miscellaneous Notes* Telephone Encounter - Nazanin Reyes MA - 10/24/2024 11:06 AM EST Patient notified. * Telephone Encounter - Nazanin Reyes MA - 10/24/2024 11:05 AM EST ----- Message from José Miguel Saldaña APRN.CNP sent at 10/24/2024 7:45 AM EST ----- Please let patient know that further evaluation of her urine was completely normal. No blood or other concern. Thank you José Miguel Saldaña APRN.FILE SYSTEM INSTALLER documented in this encounterCinc[facility]03-03-2025 Telephone encounter Note * Telephone Encounter - Nazanin Reyes MA - 10/24/2024 11:05 AM EST ----- Message from José Miguel Saldaña APRN.CNP sent at 10/24/2024 7:45 AM EST ----- Please let patient know that further evaluation of her urine was completely normal. No blood or other concern. Thank you José Miguel Saldaña APRN.FILE SYSTEM INSTALLER [facility]02-28-2025 NoteHNO ID: [id number] Author: JOSÉ MIGUEL SALDAÑA APRN.CNP Service: ? Author Type: Nurse Practitioner Type: Progress Notes Filed: 10/21/2024 12:36 Note Text: CC: Patient presents with: Balance: Balance concerns HPI Cady Berumen is a 78 year old female who presents today for hosptial follow-up. Facility: [facility] Date of visit: 09/26/24 Reason for visit: palpitations, shortness of breath, dizziness and balance issues Hospital course: blood work unremarkable. Rate controlled a-flutter but spontaneously converted to SR, Diagnosis: palpitations Discharge: f/u with cardiology Current symptoms: Has been following with cardiology and appears to remain in SR. Has been started on daily lasix as her BNP remained slightly elevated and has an ECHO scheduled for later next month. Palpitations and shortness of breath has improved. No chest pain or edema noted. History of vestibular neuritis in her right ear over 10 years ago that has effected her balance since. Has had to use vestibular therapy in the past for this which was very helpful in dealing with this. Last May had mechanical fall hitting left side of her face on cement. Brain CT in ER was negative for bleed. Has noticed worsened balance since this has occurred and often running into things on her left side. Has noticed some short term forgetfulness. Does not forget who she is or where she is. No concern with forgetting tasks or how to do things but feels like it takes longer to complete tasks and forgets why she walks into rooms sometimes. Denies weakness, numbness, confusion, recurrent illnesses, N/V/bowel changes, persistent/severe headaches, ear pain/drainage, sinus pressure, cough, wheezing, fever, chills, vision changes, or any urinary concerns. Sees optometry regularly due to glaucoma without any recent concern. REVIEW OF SYSTEMS See HPI PAST MEDICAL HISTORY Diagnosis Date A-fib (HCC) February 2021 Asthma Atrial tachycardia (HCC) 10/14/2018 BPPV (benign paroxysmal positional vertigo) 10/30/2014 Degenerative disc disease 08/10/2014 Mild Degenerative disc disease C6-C7 Mild Anterolisthesis C7-T-1`- See scanned document Essential hypertension, benign Fibromyalgia Glaucoma, open angle Hypothyroidism 10/14/2018 Varicose veins 08/25/2014 Varicose veins of other sites Venous stasis ulcer of ankle 07/18/2013 Vestibular neuronitis Vitamin D deficiency 09/20/2013 PAST SURGICAL HISTORY Procedure Laterality Date ARTHRP TEMPOROMANDIBULAR JOINT W/WO AUTOGRAFT 1987 CATARACT SURGERY, COMPLEX 2006 Rt AND Lt COLONOSCOPY FLX DX W/COLLJ SPEC WHEN PFRMD 11/08/2010 Colonoscopy COLONOSCOPY FLX DX W/COLLJ SPEC WHEN PFRMD 08/23/2019 [facility] repeat is not recommended NEUROPLASTY AND/TRANSPOS MEDIAN NRV CARPAL TUNNE 1990 Carpal tunnel decomp-bilateral PAST SURGICAL HISTORY OF 08-21-05 EXCISION CYST LEFT MIDDLE FINGER PAST SURGICAL HISTORY OF right foot surgery- mortons neuroma PAST SURGICAL HISTORY OF 2013 left foot vein ablation TONSILLECTOMY PRIMARY/SECONDARY AGE 12/> 1961 ALLERGIES Fragrances; Benzodiazepines; Cats; Dust Mites; Grass Pollen-Donna, Standard; Mold; Seasonal Allergies; Sulfa (Sulfonamide Antibiotics); Trees; Valium [Diazepam]; and Zithromax [Azithromycin] MEDICATIONS furosemide (LASIX) 20 mg tablet Take 20 mg by mouth once daily. mirabegron (MYRBETRIQ) 25 mg Tb24 Take 1 tablet by mouth once daily. melatonin 1 mg subl Dissolve 1 tablet under the tongue once daily. escitalopram oxalate (LEXAPRO) 5 mg tablet Take 1 tablet by mouth once daily. Take one pill at night for 7 days and then increase to 2 pills at night baclofen 10 mg tablet Take 1 tablet by mouth three times a day as needed (muscle spasms). rosuvastatin (CRESTOR) 5 mg tablet Take 1 tablet by mouth daily at bedtime. Boswellia cecile extract (BOSWELLIA CECILE XT, BULK,) 70 % powd 1 Each two times a day. prasterone, DHEA, (DHEA ORAL) Take by mouth. 0.15 mg metoprolol tartrate, short acting, (LOPRESSOR) 25 mg tablet Take 25 mg by mouth twice daily. Takes as needed for rapid HR timolol maleate (TIMOPTIC) 0.5 % ophthalmic solution Use 1 Drop in both eyes twice daily. warfarin (COUMADIN) 5 mg tablet Take 1 tablet by mouth daily except 7.5mg on ( [facility]) (Patient taking differently: 7.5 mg daily) ALPHA LIPOIC ACID ORAL Take by mouth. Cholecalciferol, Vitamin D3, 50 mcg (2,000 unit) cap Take 2 capsules by mouth once daily. COQ10, UBIQUINOL, ORAL Take 30 mg by mouth. latanoprost (XALATAN) 0.005 % ophthalmic solution Use 1 Drop in both eyes daily at bedtime. FAMILY HISTORY Problem Relation Age of Onset Heart Father Allergies Sister Breast Cancer Sister age of 50's with diagnosis Prostate Cancer Brother Social History Tobacco Use Smoking status: Never Smokeless tobacco: Never Vaping Use Vaping status: Never Used Substance Use Topics Alcohol use: Not Currently (more content not included)...[facility]02-28-2025 History of Present illness Narrative* José Miguel Saldaña APRN.FILE SYSTEM INSTALLER - 10/21/2024 11:07 AM EST CC: Patient presents with: Balance: Balance concerns HPI Cady Berumen is a 78 year old female who presents today for hosptial follow-up. Facility: [facility] Date of visit: 09/26/24 Reason for visit: palpitations, shortness of breath, dizziness and balance issues Hospital course: blood work unremarkable. Rate controlled a-flutter but spontaneously converted to SR, Diagnosis: palpitations Discharge: f/u with cardiology Current symptoms: Has been following with cardiology and appears to remain in SR. Has been started on daily lasix as her BNP remained slightly elevated and has an ECHO scheduled for later next month. Palpitations and shortness of breath has improved. No chest pain or edema noted. History of vestibular neuritis in her right ear over 10 years ago that has effected her balance since. Has had to use vestibular therapy in the past for this which was very helpful in dealing with this. Last May had mechanical fall hitting left side of her face on cement. Brain CT in ER was negative for bleed. Has noticed worsened balance since this has occurred and often running into things on her left side. Has noticed some short term forgetfulness. Does not forget who she is or where sheis. No concern with forgetting tasks or how to do things but feels like it takes longer to completetasks and forgets why she walks into rooms sometimes. Denies weakness, numbness, confusion, recurrent illnesses, N/V/bowel changes, persistent/severe headaches, ear pain/drainage, sinus pressure, cough, wheezing, fever, chills, vision changes, or any urinary concerns. Sees optometry regularly due to glaucoma without any recent concern. REVIEW OF SYSTEMS See HPI PAST MEDICAL HISTORY Diagnosis Date A-fib (HCC) February 2021 Asthma Atrial tachycardia (HCC) 10/14/2018 BPPV (benign paroxysmal positional vertigo) 10/30/2014 Degenerative disc disease 08/10/2014 Mild Degenerative disc disease C6-C7 Mild Anterolisthesis C7-T-1`- See scanned document Essential hypertension, benign Fibromyalgia Glaucoma, open angle Hypothyroidism 10/14/2018 Varicose veins 08/25/2014 Varicose veins of other sites Venous stasis ulcer of ankle 07/18/2013 Vestibular neuronitis Vitamin D deficiency 09/20/2013 PAST SURGICAL HISTORY Procedure Laterality Date ARTHRP TEMPOROMANDIBULAR JOINT W/WO AUTOGRAFT 1987 CATARACT SURGERY, COMPLEX 2005 Rt & Lt COLONOSCOPY FLX DX W/COLLJ SPEC WHEN PFRMD 11/08/2010 Colonoscopy COLONOSCOPY FLX DX W/COLLJ SPEC WHEN PFRMD 08/23/2019 [facility] repeat is not recommended NEUROPLASTY &/TRANSPOS MEDIAN NRV CARPAL TUNNE 1991 Carpal tunnel decomp-bilateral PAST SURGICAL HISTORY OF 08-21-05 EXCISION CYST LEFT MIDDLE FINGER PAST SURGICAL HISTORY OF right foot surgery- mortons neuroma PAST SURGICAL HISTORY OF 2013 left foot vein ablation TONSILLECTOMY PRIMARY/SECONDARY AGE 12/> 1961 ALLERGIES Fragrances; Benzodiazepines; Cats; Dust Mites; Grass Pollen-Donna, Standard; Mold; Seasonal Allergies; Sulfa (Sulfonamide Antibiotics); Trees; Valium [Diazepam]; and Zithromax [Azithromycin] MEDICATIONS furosemide (LASIX) 20 mg tablet Take 20 mg by mouth once daily. mirabegron (MYRBETRIQ) 25 mg Tb24 Take 1 tablet by mouth once daily. melatonin 1 mg subl Dissolve 1 tablet under the tongue once daily. escitalopram oxalate (LEXAPRO) 5 mg tablet Take 1 tablet by mouth once daily. Take one pill at night for 7 days and then increase to 2 pills at night baclofen 10 mg tablet Take 1 tablet by mouth three times a day as needed (muscle spasms). rosuvastatin (CRESTOR) 5 mg tablet Take 1 tablet by mouth daily at bedtime. Boswellia cecile extract (BOSWELLIA CECILE XT, BULK,) 70 % powd 1 Each two times a day. prasterone, DHEA, (DHEA ORAL) Take by mouth. 0.15 mg metoprolol tartrate, short acting, (LOPRESSOR) 25 mg tablet Take 25 mg by mouth twice daily. Takes as needed for rapid HR timolol maleate (TIMOPTIC) 0.5 % ophthalmic solution Use 1 Drop in both eyes twice daily. warfarin (COUMADIN) 5 mg tablet Take 1 tablet by mouth daily except 7.5mg on ( [facility] (Patient taking differently: 7.5 mg daily) ALPHA LIPOIC ACID ORAL Take by mouth. Cholecalciferol, Vitamin D3, 50 mcg (2,000 unit) cap Take 2 capsules by mouth once daily. COQ10, UBIQUINOL, ORAL Take 30 mg by mouth. latanoprost (XALATAN) 0.005 % ophthalmic solution Use 1 Drop in both eyes daily at bedtime. FAMILY HISTORY Problem Relation Age of Onset Heart Father Allergies Sister Breast Cancer Sister age of 50's with diagnosis Prostate Cancer Brother Social History Tobacco Use Smoking status: Never Smokeless tobacco: Never Vaping Use Vaping status: Never Used Substance Use Topics Alcohol use: Not Currently Drug use: No PHYSICAL EXAM BP 128/80 Pulse 60 Resp 16 Wt 73.9 kg (163 lb) BMI 27.12 kg/m General Appearance: well appearing, in no acute distress, alert Eyes: conjunctiva pink and moist, no icterus, sclera white, non-injected Neck: Thyroid normal size and symmetric without palpable nodules, No bruits, Neck supple, No adenopathy Lymph nodes: No cervical lymphadenopathy and No supraclavicular lymphadenopathy Lungs: Lungs clear to auscultation. No wheezing, rhonchi, rales. Heart: RRR without murmur, gallop, or rubs. No ectopy Neurological: Gait normal. Reflexes normal and symmetric. speech normal, mental status intact, Romberg negative, muscle tone normal, muscle strength normal, rapid alternating movements normal, fingerto nose normal. Unable to walk on toes or tandem walk Spirometry Never done Anxiety Screening Never done DTaP,Tdap,Td Vaccine(1 - Tdap) Never done RSV Vaccine(1 - 1-dose 75+ series) Never done Advance Directive Discussion due on 08/24/2024 Annual PCP Team Chronic Disease Visit due on 07/26/2025 BP Controlled (<130/80) due on 07/26/2025 Diabetes Screening due on 02/09/2027 Bone Density Screening Completed Influenza Vaccine Completed Hepatitis C Screening Completed Pneumococcal Vaccine: 50+ Completed Mammogram Screening Discontinued Colorectal Cancer Screening Discontinued Shingrix Vaccine Discontinued Covid-19 Vaccine Discontinued DATA REVIEWED: Outside chart from [facility] reviewed. ASSESSMENT/PLAN: 1. Balance disorder - ICD9: 781.99, ICD10: R26.89 (primary diagnosis) Unsure on why it is worse since fall. Needs MRI of the brain. Will have her see geriatrics and havetheir specific MRI ordered as she has memory concerns as well. Has had for months without change. - UA DIP, URINE (POC) - URINALYSIS (WITH MICROSCOPIC) WITH CULTURE IF INDICATED - CONSULT TO PHYSICAL THERAPY - CONSULT TO GERIATRICS 2. 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 Memory change - ICD9: 780.93, ICD10: R41.3 See #1 - CONSULT TO GERIATRICS 4. Hematuria, unspecified type - ICD9: 599.70, ICD10: R31.9 With the symptoms and trace blood on dip will send for further verification of this and evaluation - URINALYSIS (WITH MICROSCOPIC) WITH CULTURE IF INDICATED 5. Paroxysmal atrial fibrillation (HCC) - ICD9: 427.31, ICD10: I48.0 Apical regular in office and asymptomatic Continue with recommendations by cardiology. Prescription instructions reviewed with patient as applicable. Potential red flag symptoms discussed with the patient. Reviewed appropriate action plan to take if red flag symptoms occur. Patient agreeable to treatment plan. José Miguel Saldaña APRN.CNP documented in this encounterC[facility] Evaluation note* Diagnosis Onset Date Resolution Status Admit Date long term (current) use of 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 acute October 13 11:26am Paroxysmal atrial fibrillation acute October 13, 2024 11:26am Shortness of breath acute u 2024 11:26am Essential (primary) hypertension chronic October 13 11:26am [facility] Work Phone: 1(473) 124-836201-24-2025 Telephone encounter Note* Telephone Encounter - Janessa Morton LPN - 09/16/2024 9:51 AM EST Phoned patient went over notes below from José Miguel Saldaña RADIAL DRILL OPERATOR FOR PLASTIC with understanding. Assisted with transfer to hangar attendant to get PT appt set up. [facility]01-24-2025 Miscellaneous Notes* Telephone Encounter - Janessa Morton LPN - 09/16/2024 9:51 AM EST Phoned patient went over notes below from José Miguel Saldaña RADIAL DRILL OPERATOR [employer] with understanding. Assisted with transfer to hangar attendant to get PT appt set up. * Telephone Encounter - José Miguel Saldaña APRN.CNP - 09/16/2024 9:46 AM EST Order placed please assist with scheduling. Thank you José Miguel Saldaña APRN.CNP * Telephone Encounter - Lauren Bui RN - 09/15/2024 12:06 PM EST Patient calls to schedule consult to physical therapy for knee pain. Patient reports that she fell several months back and continues to have knee pain bilateral (right being worse) and would like to try PT at this point. Reviewed OV notes and see a recommendation for PT for knee pain but don't see an order to schedule from. Patient would like to schedule with [facility] and requests call back at [phone]. Pended order. Lauren Bui RN documented [facility] encounterC[facility] Telephone encounter Note * Telephone Encounter - José Miguel Saldaña APRN.CNP - 09/16/2024 9:46 AM EST Order placed please assist with scheduling. Thank you José Miguel Saldaña APRN.ENOC [facility] Work Phone: 1(956) 951-755801-23-2025 Telephone encounter Note* Telephone Encounter - Lauren Bui RN - 09/15/2024 12:06 PM EST Patient calls to schedule consult to physical therapy for knee pain. Patient reports that she fell several months back and continues to have knee pain bilateral (right being worse) and would like to try PT at this point. Reviewed OV notes and see a recommendation for PT for knee pain but don't see an order to schedule from. Patient would like to schedule with [facility] and requests call back at [phone]. Pended order. Lauren Bui RN [facility]12-27-2024 Telephone encounter Note* Telephone Encounter - Sylwia Palencia MA - 08/19/2024 3:29 PM EST Patient was notified Sylwia Palencia MA [facility]12-27-2024 Miscellaneous Notes* Telephone Encounter - Sylwia Palencia MA - 08/19/2024 3:29 PM EST Patient was notified Sylwia Palencia MA * Telephone Encounter - Janelle Morales APRN.CNP - 08/19/2024 3:27 PM EST Please let her know that her UA is negative. Janelle Morales APRN.ENOC documented in this encounterC[facility]12-27-2024 Telephone encounter Note * Telephone Encounter - Janelle Morales APRN.CNP - 08/19/2024 3:27 PM EST Please let her know that her UA is negative. Janelle Morales APRN.ENOC [facility] Work Phone: [phone] 100-278712-23-2024 Telephone encounter Note* Telephone Encounter - Esha Santiago LPN - 08/15/2024 10:33 AM EST Spoke with pt and information listed below given. Pt verbalizes understanding. Esha Santiago LPN [facility]12-23-2024 Miscellaneous Notes* Telephone Encounter - Esha Santiago LPN - 08/15/2024 10:33 AM EST Spoke with pt and information listed below given. Pt verbalizes understanding. Esha Santiago LPN * Telephone Encounter - Yaa Ashby PA-C - 08/15/2024 7:30 AM EST Please let patient know that her urinalysis looks good. No blood. Follow up as needed. Yaa Ashby PA-C 08/15/2024 * Telephone Encounter - Janessa Morton LPN - 08/12/2024 9:47 AM EST Patient calling concerned about her follow up urine results, since she had blood in her urine previously. Can leave a message on her phone, she will be in appt with her daughter. Please advise Latest Ref Rng 08/11/2024 Color Yellow Yellow Clarity Clear Clear Glucose, Urine Negative Negative Bilirubin, Urine Negative Negative Ketones, Urine Negative Negative Specific [place], Ur 1.005 - 1.030 1.009 Hemoglobin/Blood,Ur Negative Negative pH, Urine <8.5 6.5 Protein, Urine Negative Negative Urobilinogen 0.2-1.0 EU/dL 0.2 EU/dL Nitrites Negative Negative Leukest Negative Negative WBC, Urine 0-5 /HPF 0-5 /HPF RBC, Urine 0-2 /HPF 0-2 /HPF Bacteria Negative /HPF Negative Epithelial Cells /HPF None Seen Hyaline Cast 0 /LPF 0 /LPF documented in this encounterCincinnati [facility]12-23-2024 Telephone encounter Note * Telephone Encounter - Yaa Ashby PA-C - 08/15/2024 7:30 AM EST Please let patient know that her urinalysis looks good. No blood. Follow up as needed. Yaa Ashby PA-C 08/15/2024 [facility]12-20-2024 Telephone encounter Note* Telephone Encounter - Janessa Morton LPN - 08/12/2024 9:47 AM EST Patient calling concerned about her follow up urine results, since she had blood in her urine previously. Can leave a message on her phone, she will be in appt with her daughter. Please advise Latest Ref Rng 08/11/2024 Color Yellow Yellow Clarity Clear Clear Glucose, Urine Negative Negative Bilirubin, Urine Negative Negative Ketones, Urine Negative Negative Specific [place], Ur 1.005 - 1.030 1.009 Hemoglobin/Blood,Ur Negative Negative pH, Urine <8.5 6.5 Protein, Urine Negative Negative Urobilinogen 0.2-1.0 EU/dL 0.2 EU/dL Nitrites Negative Negative Leukest Negative Negative WBC, Urine 0-5 /HPF 0-5 /HPF RBC, Urine 0-2 /HPF 0-2 /HPF Bacteria Negative /HPF Negative Epithelial Cells /HPF None Seen Hyaline Cast 0 /LPF 0 /LPF [facility]12-06-2024 Telephone encounter Note* Telephone Encounter - Nydia Encarnacion RN - 07/29/2024 8:57 AM EST Patient notified of results and provider's instructions. Patient verbalizes understanding. Nydia Encarnacion RN [facility]12-06-2024 Miscellaneous Notes* Telephone Encounter - Nydia Encarnacion RN - 07/29/2024 8:57 AM EST Patient notified of results and provider's instructions. Patient verbalizes understanding. Nydia Encarnacion RN * Telephone Encounter - Nixon Araya LPN - 07/28/2024 8:56 AM EST left message for patient to call office back and speak with triage nurse. Nxion Araya LPN * Telephone Encounter - Yaa Ashby PA-C - 07/27/2024 11:35 AM EST Please let patient know that her urine culture did not show an infection. I would recommend repeating the urine as discussed in 2 weeks to confirm hematuria is resolving, if not, would advise a consult to urology for evaluation. She can have this completed at the lab. Yaa Ashby PA-C 07/27/2024 documented in this encounterCincinnati [facility]12-05-2024 NoteHNO ID: [id number] Author: DAQUAN BUCHANAN, ? Service: ? Author Type: Physician Type: Progress Notes Filed: 07/28/2024 09:47 Note Text: Initial Podiatric Office Visit: Chief Complaint: This 78 year old female who presents with chief complaint:ingrowing toenail of left hallux HPI Patient presents to clinic for evaluation of left great toe Complains of thick deformed and ingrowing toenail of left hallux Patient will experience pain primarily to the lateral nail border. She is here to discuss options. PAIN EVALUATION No data found in the last 1 encounters. Hemoglobin A1C (%) Date Value 07/29/2022 5.5 05/01/2020 5.2 06/19/2018 5.4 PCP: Moon Teixeira MD PAST MEDICAL HISTORY Diagnosis Date A-fib (HCC) February 2021 Asthma Atrial tachycardia (HCC) 10/14/2018 BPPV (benign paroxysmal positional vertigo) 10/30/2014 Degenerative disc disease 08/10/2014 Mild Degenerative disc disease C6-C7 Mild Anterolisthesis C7-T-1`- See scanned document Essential hypertension, benign Fibromyalgia Glaucoma, open angle Hypothyroidism 10/14/2018 Varicose veins 08/25/2014 Varicose veins of other sites Venous stasis ulcer of ankle 07/18/2013 Vestibular neuronitis Vitamin D deficiency 09/20/2013 Current Outpatient Medications Medication Sig mirabegron (MYRBETRIQ) 25 mg Tb24 Take 1 tablet by mouth once daily. melatonin 1 mg subl Dissolve 1 tablet under the tongue once daily. escitalopram oxalate (LEXAPRO) 5 mg tablet Take 1 tablet by mouth once daily. Take one pill at night for 7 days and then increase to 2 pills at night baclofen 10 mg tablet Take 1 tablet by mouth three times a day as needed (muscle spasms). rosuvastatin (CRESTOR) 5 mg tablet Take 1 tablet by mouth daily at bedtime. Boswellia cecile extract (BOSWELLIA CECILE XT, BULK,) 70 % powd 1 Each two times a day. prasterone, DHEA, (DHEA ORAL) Take by mouth. 0.15 mg metoprolol tartrate, short acting, (LOPRESSOR) 25 mg tablet Take 25 mg by mouth twice daily. Takes as needed for rapid HR timolol maleate (TIMOPTIC) 0.5 % ophthalmic solution Use 1 Drop in both eyes twice daily. warfarin (COUMADIN) 5 mg tablet Take 1 tablet by mouth daily except 7.5mg on ( [facility]) (Patient taking differently: 7.5 mg daily) ALPHA LIPOIC ACID ORAL Take by mouth. Cholecalciferol, Vitamin D3, 50 mcg (2,000 unit) cap Take 2 capsules by mouth once daily. COQ10, UBIQUINOL, ORAL Take 30 mg by mouth. latanoprost (XALATAN) 0.005 % ophthalmic solution Use 1 Drop in both eyes daily at bedtime. No current facility-administered medications for this visit. ALLERGIES Allergen Reactions Fragrances Cough, Shortness of Breath Benzodiazepines Mental Status Change Pt sees colors and laughing Cats Itching, Shortness of Breath Eventual wheezing Dust Mites Other: See Comments Positive allergy test Grass Pollen-Timoth* Itching Nasal congestion Mold Itching Nasal congestion Seasonal Allergies Cough Sulfa (Sulfonamide * Itching Trees Itching Nasal congestion Valium [Diazepam] Intolerance Laughing hysterically, ultra sensitive Zithromax [Azithrom* Other: See Comments nausea PAST SURGICAL HISTORY Procedure Laterality Date ARTHRP TEMPOROMANDIBULAR JOINT W/WO AUTOGRAFT 1988 CATARACT SURGERY, COMPLEX 2005 Rt AND Lt COLONOSCOPY FLX DX W/COLLJ SPEC WHEN PFRMD 11/08/2010 Colonoscopy COLONOSCOPY FLX DX W/COLLJ SPEC WHEN PFRMD 08/23/2019 CROW Florezbul repeat is not recommended NEUROPLASTY AND/TRANSPOS MEDIAN NRV CARPAL TUNNE 1990 Carpal tunnel decomp-bilateral PAST SURGICAL HISTORY OF 08-21-05 EXCISION CYST LEFT MIDDLE FINGER PAST SURGICAL HISTORY OF right foot surgery- mortons neuroma PAST SURGICAL HISTORY OF 2013 left foot vein ablation TONSILLECTOMY PRIMARY/SECONDARY AGE 12/ 1962 FAMILY HISTORY Problem Relation Age of Onset Heart Father Allergies Sister Breast Cancer Sister age of 50's with diagnosis Prostate Cancer Brother Social History Tobacco Use Smoking status: Never Smokeless tobacco: Never Vaping Use Vaping status: Never Used Substance Use Topics Alcohol use: Not Currently Drug use: No REVIEW OF SYSTEMS GENERAL: Negative for Malaise, significant weight loss, fever RESPIRATORY: Negative for cough, wheezing and shortness of breath CARDIOVASCULAR: Negative for chest pain, leg swelling and palpitations GI: Negative for abdominal discomfort, blood in stools or black stools and change in bowel habits : Negative for dysuria, frequency and incontinence MUSCULOSKELETAL: Negative for joint pain or swelling, back pain, and muscle pain. SKIN: Negative for lesions, rash, and itching. HEMATOLOGY/LYMPHOLOGY Negative for prolonged bleeding, bruising easily, and swollen nodes. ENDOCRINE: Negative for cold or heat intolerance, polyuria, polydipsia and goiter. NEURO: negative Physical Exam: Constitutional: Pt is a well developed 78 year old female who (more content not included)...[facility]12-05-2024 History of Present illness Narrative* Daquan Buchanan - 07/28/2024 9:31 AM EST Initial Podiatric Office Visit: Chief Complaint: This 78 year old female who presents with chief complaint:ingrowing toenail of left hallux HPI Patient presents to clinic for evaluation of left great toe Complains of thick deformed and ingrowing toenail of left hallux Patient will experience pain primarily to the lateral nail border. She is here to discuss options. PAIN EVALUATION No data found in the last 1 encounters. Hemoglobin A1C (%) Date Value 07/29/2022 5.5 05/01/2020 5.2 06/19/2018 5.4 PCP: Moon Teixeira MD PAST MEDICAL HISTORY Diagnosis Date A-fib (HCC) February 2021 Asthma Atrial tachycardia (HCC) 10/14/2018 BPPV (benign paroxysmal positional vertigo) 10/30/2014 Degenerative disc disease 08/10/2014 Mild Degenerative disc disease C6-C7 Mild Anterolisthesis C7-T-1`- See scanned document Essential hypertension, benign Fibromyalgia Glaucoma, open angle Hypothyroidism 10/14/2018 Varicose veins 08/25/2014 Varicose veins of other sites Venous stasis ulcer of ankle 07/18/2013 Vestibular neuronitis Vitamin D deficiency 09/20/2013 Current Outpatient Medications Medication Sig mirabegron (MYRBETRIQ) 25 mg Tb24 Take 1 tablet by mouth once daily. melatonin 1 mg subl Dissolve 1 tablet under the tongue once daily. escitalopram oxalate (LEXAPRO) 5 mg tablet Take 1 tablet by mouth once daily. Take one pill at night for 7 days and then increase to 2 pills at night baclofen 10 mg tablet Take 1 tablet by mouth three times a day as needed (muscle spasms). rosuvastatin (CRESTOR) 5 mg tablet Take 1 tablet by mouth daily at bedtime. Boswellia cecile extract (BOSWELLIA CECILE XT, BULK,) 70 % powd 1 Each two times a day. prasterone, DHEA, (DHEA ORAL) Take by mouth. 0.15 mg metoprolol tartrate, short acting, (LOPRESSOR) 25 mg tablet Take 25 mg by mouth twice daily. Takes as needed for rapid HR timolol maleate (TIMOPTIC) 0.5 % ophthalmic solution Use 1 Drop in both eyes twice daily. warfarin (COUMADIN) 5 mg tablet Take 1 tablet by mouth daily except 7.5mg on ( [facility]) (Patient taking differently: 7.5 mg daily) ALPHA LIPOIC ACID ORAL Take by mouth. Cholecalciferol, Vitamin D3, 50 mcg (2,000 unit) cap Take 2 capsules by mouth once daily. COQ10, UBIQUINOL, ORAL Take 30 mg by mouth. latanoprost (XALATAN) 0.005 % ophthalmic solution Use 1 Drop in both eyes daily at bedtime. No current facility-administered medications for this visit. ALLERGIES Allergen Reactions Fragrances Cough, Shortness of Breath Benzodiazepines Mental Status Change Pt sees colors and laughing Cats Itching, Shortness of Breath Eventual wheezing Dust Mites Other: See Comments Positive allergy test Grass Pollen-Timoth* Itching Nasal congestion Mold Itching Nasal congestion Seasonal Allergies Cough Sulfa (Sulfonamide * Itching Trees Itching Nasal congestion Valium [Diazepam] Intolerance Laughing hysterically, ultra sensitive Zithromax [Azithrom* Other: See Comments nausea PAST SURGICAL HISTORY Procedure Laterality Date ARTHRP TEMPOROMANDIBULAR JOINT W/WO AUTOGRAFT 1988 CATARACT SURGERY, COMPLEX 2006 Rt & Lt COLONOSCOPY FLX DX W/COLLJ SPEC WHEN PFRMD 11/08/2010 Colonoscopy COLONOSCOPY FLX DX W/COLLJ SPEC WHEN PFRMD 08/23/2019 [facility]. Cebul repeat is not recommended NEUROPLASTY &/TRANSPOS MEDIAN NRV CARPAL TUNNE 1990 Carpal tunnel decomp-bilateral PAST SURGICAL HISTORY OF 08-21-05 EXCISION CYST LEFT MIDDLE FINGER PAST SURGICAL HISTORY OF right foot surgery- mortons neuroma PAST SURGICAL HISTORY OF 2013 left foot vein ablation TONSILLECTOMY PRIMARY/SECONDARY AGE 12/> 1962 FAMILY HISTORY Problem Relation Age of Onset Heart Father Allergies Sister Breast Cancer Sister age of 50's with diagnosis Prostate Cancer Brother Social History Tobacco Use Smoking status: Never Smokeless tobacco: Never Vaping Use Vaping status: Never Used Substance Use Topics Alcohol use: Not Currently Drug use: No REVIEW OF SYSTEMS GENERAL: Negative for Malaise, significant weight loss, fever RESPIRATORY: Negative for cough, wheezing and shortness of breath CARDIOVASCULAR: Negative for chest pain, leg swelling and palpitations GI: Negative for abdominal discomfort, blood in stools or black stools and change in bowel habits : Negative for dysuria, frequency and incontinence MUSCULOSKELETAL: Negative for joint pain or swelling, back pain, and muscle pain. SKIN: Negative for lesions, rash, and itching. HEMATOLOGY/LYMPHOLOGY Negative for prolonged bleeding, bruising easily, and swollen nodes. ENDOCRINE: Negative for cold or heat intolerance, polyuria, polydipsia and goiter. NEURO: negative Physical Exam: Constitutional: Pt is a well developed 78 year old female who is alert, oriented and cooperative Eyes: Following during examination. No redness or drainage. Respiratory: RR normal and nonlabored. Even breathing. No evidence of distress or shortness of breath. Psychology: Patient is engaged during conversation. Normal affect and mood. Does not appear depressed or anxious during encounter. Vascular: Dorsalis pedis and posterior tibial pulses faintly palpable as b/l Capillary Fill time < 5 seconds to digits 1-5 b/l Skin temperature warm to cool proximal to distal b/l Hair growth absent to digits Ruborus changes to b/l feet Neurological: intact light touch/epicritic sensation b/l intact protective sensation no significant neurological deficits Dermatological: Left hallux nail plate is normal in length but increased thickness. Ingrowing tendency is noted. Left 2nd, 3rd and 4th nail has been removed. Right 2nd and 3rd nail has been removed. Webspaces clean and dry 1-4 b/l. Skin appears well hydrated and supple. good color, texture, turgor. No open lesionspresent. No callosities present. Radiographs: n/a ASSESSMENT: (B35.1) Onychomycosis (primary encounter diagnosis) (R09.89) Diminished pulses in lower extremity PLAN: Discussed dystrophic toenail of left hallux. Discussed options not limited to periodic debridement,topical vs oral medication vs removal. Patient is interested in removal. Discussed partial nail removal vs total nail removal. She is leaning towards total nail removal. She has removed multiple toenails in the past and has healed. Has pvr from 2022 that shows normal blood flow. On exam, she has absent hair growth, nonpalpable pulses and ruborous changes to skin. Would recommend repeating pvr to assure adequate perfusion. Offered debridement of left hallux nail plate today. Patient declined. Did debrided the right hallux nail as courtesy. Daquan Buchanan DPM Podiatry [address] [facility] [address] Dept: [phone] Dept documented in this encounterC[facility]12-05-2024 Telephone encounter Note * Telephone Encounter - Nixon Araya LPN - 07/28/2024 8:56 AM EST left message for patient to call office back and speak with triage nurse. Nixon Araya LPN [facility]12-04-2024 Telephone encounter Note* Telephone Encounter - Yaa Ashby PA-C - 07/27/2024 11:35 AM EST Please let patient know that her urine culture did not show an infection. I would recommend repeating the urine as discussed in 2 weeks to confirm hematuria is resolving, if not, would advise a consult to urology for evaluation. She can have this completed at the lab. Yaa Ashby PA-C 07/27/2024 [facility]12-03-2024 Telephone encounter Note* Telephone Encounter - Nixon Araya LPN - 07/26/2024 12:46 PM EST PATIENT notified and verbalized understanding. Nixon Araya LPN [facility]12-03-2024 Miscellaneous Notes* Telephone Encounter - Nixon Araya LPN - 07/26/2024 12:46 PM EST PATIENT notified and verbalized understanding. Nixon Araya LPN * Telephone Encounter - Yaa Ashby PA-C - 07/26/2024 12:17 PM EST Please let patient know that her CXR was normal. Advise f/u if not improving. Yaa Ashby PA-C 07/26/2024 documented in this encounterCincinnati [facility]12-03-2024 Telephone encounter Note * Telephone Encounter - Yaa Ashby PA-C - 07/26/2024 12:17 PM EST Please let patient know that her CXR was normal. Advise f/u if not improving. Yaa Ashby PA-C 07/26/2024 [facility]12-03-[facility] History of Present illness Narrative* Elo Eisenberg, RT(R) - 07/26/2024 10:00 AM EST Radiology Service Progress Note PATIENT NAME: Cady Berumen DATE OF SERVICE: July 26, 2024 TIME: 10:15 AM PATIENT IDENTITY VERIFICATION COMPLETED USING TWO (2) IDENTIFIERS: Name and Date of confirmedby patient verbally. FALL SCREENING: Has the patient had 2 falls in the last year or 1 fall with injury or currently using an Ambulatory Assistive Device (Walker, Cane, Wheelchair, Crutches, etc.)? No PATIENT GENDER DATA: Female. status: : No status: NO. PATIENT RELEVANT IMPLANT DATA REVIEWED: Yes PATIENT PRESENTS WITH AN IMPLANTABLE OR ATTACHED AWS CONSULTANT: No RADIOLOGY DEPARTMENT: General X-ray: Exam(s) Completed: Chest X-Ray PERIPHERAL IV DATA: Not applicable SIGNED BY: RT Nolan(R) July 26, 2024 10:15 AM documented in this encounterCincinnati [facility] Center12-03-2024 NoteHNO ID: [id number] Author: ELO EISENBERG RT([place]) Service: ? Author Type: Cafe Helper Type: Progress Notes Filed: 07/26/2024 10:24 Note Text: Radiology Service Progress Note PATIENT NAME: Cady Berumen DATE OF SERVICE: July 26, 2024 TIME: 10:15 AM PATIENT IDENTITY VERIFICATION COMPLETED USING TWO (2) IDENTIFIERS: Name and Date of confirmed by patient verbally. FALL SCREENING: Has the patient had 2 falls in the last year or 1 fall with injury or currently using an Ambulatory Assistive Device (Walker, Cane, Wheelchair, Crutches, etc.)? No PATIENT GENDER DATA: Female. status: : No status: NO. PATIENT RELEVANT IMPLANT DATA REVIEWED: Yes PATIENT PRESENTS WITH AN IMPLANTABLE OR ATTACHED AWS CONSULTANT: No RADIOLOGY DEPARTMENT: General X-ray: Exam(s) Completed: Chest X-Ray PERIPHERAL IV DATA: Not applicable SIGNED BY: RT Nolan(R) July 26, 2024 10:15 [facility]12-03-2024 NoteHNO ID: [id number] Author: YAA ASHBY PA-C Service: ? Author Type: Physician Bending Roll Hand Type: Progress Notes Filed: 07/26/2024 10:06 Note Text: 07/26/2024 Patient presents with: Follow Up: problems with taking in a deep breathe, sleep issues, fell 06/22/24 was not sure if needs referral for knees SUBJECTIVE: This is a 78 year old that is here today for follow up fall on 06/22/24. She was concerned when she made the appointment that her right knee was still bothering her from the fall. Today she tells me it is much better and was able to complete her usual knee exercises. She does have some post nasal drainage and has developed a cough. She had an XR done that was negative for rib fracture after the fall, but tells me that she was having trouble taking a deep breath due to pain. Cough is non-producitve. Denies SOB, wheezing, vomiting, back pain, saddle anesthesia. Urinary frequency and urgency. Previously on Detrol LA, stopped the medication because of concern of risks of the medication. Otherwise tolerating and it worked well. She is not having increased symptoms through the night and affecting her sleep. Denies fever/chills, dysuria, hematuria. Non-smoker. History of a-fib, on coumadin, follows with [facility]. PAST MEDICAL HISTORY Diagnosis Date A-fib ([facility]) February 2021 Asthma Atrial tachycardia ([facility]) 10/14/2018 BPPV (benign paroxysmal positional vertigo) 10/30/2014 Degenerative disc disease 08/10/2014 Mild Degenerative disc disease C6-C7 Mild Anterolisthesis C7-T-1`- See scanned document Essential hypertension, benign Fibromyalgia Glaucoma, open angle Hypothyroidism 10/14/2018 Varicose veins 08/25/2014 Varicose veins of other sites Venous stasis ulcer of ankle 07/18/2013 Vestibular neuronitis Vitamin D deficiency 09/20/2013 ALLERGIES Fragrances; Benzodiazepines; Cats; Dust Mites; Grass Pollen-Donna, Standard; Mold; Seasonal Allergies; Sulfa (Sulfonamide Antibiotics); Trees; Valium [Diazepam]; and Zithromax [Azithromycin] MEDICATIONS Current Outpatient Medications Medication Sig melatonin 1 mg subl Dissolve 1 tablet under the tongue once daily. escitalopram oxalate (LEXAPRO) 5 mg tablet Take 1 tablet by mouth once daily. Take one pill at night for 7 days and then increase to 2 pills at night baclofen 10 mg tablet Take 1 tablet by mouth three times a day as needed (muscle spasms). rosuvastatin (CRESTOR) 5 mg tablet Take 1 tablet by mouth daily at bedtime. Boswellia cecile extract (BOSWELLIA CECILE XT, BULK,) 70 % powd 1 Each two times a day. prasterone, DHEA, (DHEA ORAL) Take by mouth. 0.15 mg metoprolol tartrate, short acting, (LOPRESSOR) 25 mg tablet Take 25 mg by mouth twice daily. Takes as needed for rapid HR timolol maleate (TIMOPTIC) 0.5 % ophthalmic solution Use 1 Drop in both eyes twice daily. warfarin (COUMADIN) 5 mg tablet Take 1 tablet by mouth daily except 7.5mg on ( [facility]) (Patient taking differently: 7.5 mg daily) ALPHA LIPOIC ACID ORAL Take by mouth. Cholecalciferol, Vitamin D3, 50 mcg (2,000 unit) cap Take 2 capsules by mouth once daily. COQ10, UBIQUINOL, ORAL Take 30 mg by mouth. latanoprost (XALATAN) 0.005 % ophthalmic solution Use 1 Drop in both eyes daily at bedtime. No current facility-administered medications for this visit. SOCIAL HISTORY Social History Tobacco Use Smoking status: Never Smokeless tobacco: Never Vaping Use Vaping status: Never Used Substance Use Topics Alcohol use: Not Currently Drug use: No REVIEW OF SYSTEMS See HPI OBJECTIVE: BP 124/72 (BP Site: Left Arm, BP Position: Sitting, BP Cuff Size: Large Adult) Pulse 67 Resp 12 Ht 165.1 cm (5' 5") Wt 73.9 kg (162 lb 14.7 oz) SpO2 99% BMI 27.11 kg/m? APPEARANCE Well appearing, alert, in no acute distress, well-hydrated, well nourished. EYES PERRLA, conjunctiva and sclera normal. NOSE/SINUS Nares normal. Septum midline. Mucosa normal. No drainage or sinus tenderness. THROAT normal, no erythema NECK Supple, no adenopathy; HEART RRR with normal S1 and S2 LUNG clear to auscultation, No wheezing, rhonchi, rales. ABDOMEN oft, non-tender, non-distended, ASSESSMENT/PLAN: 1. Urinary urgency - ICD9: 788.63, ICD10: R39.15 (primary diagnosis) - UA DIP B/O - hematuria - URINE CULTURE, check culture. Suspect will be negative, if negative for infection repeat UA in 2 weeks, if hematuria persisting, consult to urology for evaluation. On coumadin. Denies vaginal bleeding. - URINALYSIS, WITH MICROSCOPIC - MIRABEGRON ER 25 MG TABLET,EXTENDED RELEASE 24 HR, she will contact [facility] (repeat INR) 2. Urge incontinence - ICD9: 788.31, ICD10: N39.41 As above - UA DIP B/O - URINE CULTURE 3. Acute cough - ICD9: 786.2, ICD10: R05.1 Concern for atelectasis with recent rib injury, will check CXR r/o infiltrate. - XR CHEST 2V FRONTAL/LAT 4. Paroxysmal atrial fibrill (more content not included)...[facility]12-03-2024 History of Present illness Narrative* Yaa Ashby PA-C - 07/26/2024 9:20 AM EST 07/26/2024 Patient presents with: Follow Up: problems with taking in a deep breathe, sleep issues, fell 06/22/24 was not sure if needs referral for knees SUBJECTIVE: This is a 78 year old that is here today for follow up fall on 06/22/24. She was concerned when she made the appointment that her right knee was still bothering her from the fall. Today she tells me it is much better and was able to complete her usual knee exercises. She does have some post nasal drainage and has developed a cough. She had an XR done that was negative for rib fracture after the fall, but tells me that she was having trouble taking a deep breath due to pain. Cough is non-producitve. Denies SOB, wheezing, vomiting, back pain, saddle anesthesia. Urinary frequency and urgency. Previously on Detrol LA, stopped the medication because of concern of risks of the medication. Otherwise tolerating and it worked well. She is not having increased symptoms through the night and affecting her sleep. Denies fever/chills, dysuria, hematuria. Non-smoker.History of a-fib, on coumadin, follows with [facility]. PAST MEDICAL HISTORY Diagnosis Date A-fib ([facility]) February 2021 Asthma Atrial tachycardia (HCC) 10/14/2018 BPPV (benign paroxysmal positional vertigo) 10/30/2014 Degenerative disc disease 08/10/2014 Mild Degenerative disc disease C6-C7 Mild Anterolisthesis C7-T-1`- See scanned document Essential hypertension, benign Fibromyalgia Glaucoma, open angle Hypothyroidism 10/14/2018 Varicose veins 08/25/2014 Varicose veins of other sites Venous stasis ulcer of ankle 07/18/2013 Vestibular neuronitis Vitamin D deficiency 09/20/2013 ALLERGIES Fragrances; Benzodiazepines; Cats; Dust Mites; Grass Pollen-Donna, Standard; Mold; Seasonal Allergies; Sulfa (Sulfonamide Antibiotics); Trees; Valium [Diazepam]; and Zithromax [Azithromycin] MEDICATIONS Current Outpatient Medications Medication Sig melatonin 1 mg subl Dissolve 1 tablet under the tongue once daily. escitalopram oxalate (LEXAPRO) 5 mg tablet Take 1 tablet by mouth once daily. Take one pill at night for 7 days and then increase to 2 pills at night baclofen 10 mg tablet Take 1 tablet by mouth three times a day as needed (muscle spasms). rosuvastatin (CRESTOR) 5 mg tablet Take 1 tablet by mouth daily at bedtime. Boswellia cecile extract (BOSWELLIA CECILE XT, BULK,) 70 % powd 1 Each two times a day. prasterone, DHEA, (DHEA ORAL) Take by mouth. 0.15 mg metoprolol tartrate, short acting, (LOPRESSOR) 25 mg tablet Take 25 mg by mouth twice daily. Takes as needed for rapid HR timolol maleate (TIMOPTIC) 0.5 % ophthalmic solution Use 1 Drop in both eyes twice daily. warfarin (COUMADIN) 5 mg tablet Take 1 tablet by mouth daily except 7.5mg on ( [facility]) (Patient taking differently: 7.5 mg daily) ALPHA LIPOIC ACID ORAL Take by mouth. Cholecalciferol, Vitamin D3, 50 mcg (2,000 unit) cap Take 2 capsules by mouth once daily. COQ10, UBIQUINOL, ORAL Take 30 mg by mouth. latanoprost (XALATAN) 0.005 % ophthalmic solution Use 1 Drop in both eyes daily at bedtime. No current facility-administered medications for this visit. SOCIAL HISTORY Social History Tobacco Use Smoking status: Never Smokeless tobacco: Never Vaping Use Vaping status: Never Used Substance Use Topics Alcohol use: Not Currently Drug use: No REVIEW OF SYSTEMS See HPI OBJECTIVE: BP 124/72 (BP Site: Left Arm, BP Position: Sitting, BP Cuff Size: Large Adult) Pulse 67 Resp 12 Ht 165.1 cm (5' 5") Wt 73.9 kg (162 lb 14.7 oz) SpO2 99% BMI 27.11 kg/m APPEARANCE Well appearing, alert, in no acute distress, well-hydrated, well nourished. EYES PERRLA, conjunctiva and sclera normal. NOSE/SINUS Nares normal. Septum midline. Mucosa normal. No drainage or sinus tenderness. THROAT normal, no erythema NECK Supple, no adenopathy; HEART RRR with normal S1 and S2 LUNG clear to auscultation, No wheezing, rhonchi, rales. ABDOMEN oft, non-tender, non-distended, ASSESSMENT/PLAN: 1. Urinary urgency - ICD9: 788.63, ICD10: R39.15 (primary diagnosis) - UA DIP B/O - hematuria - URINE CULTURE, check culture. Suspect will be negative, if negative for infection repeat UA in 2 weeks, if hematuria persisting, consult to urology for evaluation. On coumadin. Denies vaginal bleeding. - URINALYSIS, WITH MICROSCOPIC - MIRABEGRON ER 25 MG TABLET,EXTENDED RELEASE 24 HR, she will contact [facility] (repeat INR) 2. Urge incontinence - ICD9: 788.31, ICD10: N39.41 As above - UA DIP B/O - URINE CULTURE 3. Acute cough - ICD9: 786.2, ICD10: R05.1 Concern for atelectasis with recent rib injury, will check CXR r/o infiltrate. - XR CHEST 2V FRONTAL/LAT 4. Paroxysmal atrial fibrillation (HCC) - ICD9: 427.31, ICD10: I48.0 Continue coumadin, following iw [facility] 5. Microscopic hematuria - ICD9: 599.72, ICD10: R31.29 As above - URINALYSIS, WITH MICROSCOPIC Fall Patient overall improving and feeling better today. I did print her referral to GI as Dr. John's office continues to tell her they never received thefax. We have documented that it was faxed to their office and confirmation received. The patient indicates understanding of these issues and agrees with the plan. Reviewed red flags and when to seek care sooner. Yaa Ashby PA-C documented [facility] Telephone encounter Note * Telephone Encounter - Patricia Perkins LPN - 06/29/2024 2:02 PM EST Pt notified of results & recommendation. Pt voiced understanding. Patricia Perkins LPN [facility]11-06-2024 Miscellaneous Notes* Telephone Encounter - Patricia Perkins LPN - 06/29/2024 2:02 PM EST Pt notified of results & recommendation. Pt voiced understanding. Patricia Perkins LPN * Telephone Encounter - José Miguel Saldaña APRN.CNP - 06/29/2024 1:42 PM EST No concerns on xray. Recommend continuing with dr. Leon diop for physical therapy. Thank you José Miguel Saldaña APRN.ENOC * Telephone Encounter - Nydia Encarnacion RN - 06/29/2024 12:30 PM EST Patient calling and asking about the results of X ray she had done on 06/27/2024. Please review and advise, Nydia Encarnacion RN documented in this encounterCinc[facility]11-06-2024 Telephone encounter Note * Telephone Encounter - José Miguel Saldaña APRN.CNP - 06/29/2024 1:42 PM EST No concerns on xray. Recommend continuing with dr. Leon diop for physical therapy. Thank you José Miguel Saldaña APRN.CNP [facility] Work Phone: [phone] 514-667911-06-2024 Telephone encounter Note* Telephone Encounter - Nydia Encarnacion RN - 06/29/2024 12:30 PM EST Patient calling and asking about the results of X ray she had done on 06/27/2024. Please review and advise, Nydia Encarnacion RN [facility]11-04-2024 Telephone encounter Note* Telephone Encounter - Chico Rodríguez MA - 06/27/2024 11:04 AM EST Consult to GI faxed to Dr. Mata's office. Chico Rodríguez MA [facility]11-04-2024 Miscellaneous Notes* Telephone Encounter - Chico Rodríguez MA - 06/27/2024 11:04 AM EST Consult to GI faxed to Dr. Mata's office. Chico Rodríguez MA documented in this encounterCincinnati [facility]11-04-2024 History of Present illness Narrative* Elo Eisenberg RT(R) - 06/27/2024 11:00 AM EST Radiology Service Progress Note PATIENT NAME: Cady Berumen DATE OF SERVICE: June 27, 2024 TIME: 11:16 AM PATIENT IDENTITY VERIFICATION COMPLETED USING TWO (2) IDENTIFIERS: Name and Date of confirmedby patient verbally. FALL SCREENING: Has the patient had 2 falls in the last year or 1 fall with injury or currently using an Ambulatory Assistive Device (Walker, Cane, Wheelchair, Crutches, etc.)? No PATIENT GENDER DATA: Female. status: : No status: NO. PATIENT RELEVANT IMPLANT DATA REVIEWED: Yes PATIENT PRESENTS WITH AN IMPLANTABLE OR ATTACHED AWS CONSULTANT: No RADIOLOGY DEPARTMENT: General X-ray: Exam(s) Completed: Rib X-Ray: Left PERIPHERAL IV DATA: Not applicable SIGNED BY: RT Nolan(Frederick) June 27, 2024 11:16 AM documented in this encounterCincinnati [facility]11-04-2024 NoteHNO ID: [id number] Author: ELO EISENBERG RT(R) Service: ? Author Type: Cafe Helper Type: Progress Notes Filed: 06/27/2024 11:25 Note Text: Radiology Service Progress Note PATIENT NAME: Cady Berumen DATE OF SERVICE: June 27, 2024 TIME: 11:16 AM PATIENT IDENTITY VERIFICATION COMPLETED USING TWO (2) IDENTIFIERS: Name and Date of confirmed by patient verbally. FALL SCREENING: Has the patient had 2 falls in the last year or 1 fall with injury or currently using an Ambulatory Assistive Device (Walker, Cane, Wheelchair, Crutches, etc.)? No PATIENT GENDER DATA: Female. status: : No status: NO. PATIENT RELEVANT IMPLANT DATA REVIEWED: Yes PATIENT PRESENTS WITH AN IMPLANTABLE OR ATTACHED AWS CONSULTANT: No RADIOLOGY DEPARTMENT: General X-ray: Exam(s) Completed: Rib X-Ray: Left PERIPHERAL IV DATA: Not applicable SIGNED BY: RT Nolan(Frederick) June 27, 2024 11:16 [facility]11-04-2024 NoteHNO ID: [id number] Author: MOON TEIXEIRA MD Service: ? Author Type: Physician Type: Progress Notes Filed: 06/27/2024 14:01 Note Text: Reason for Visit Patient presents with: ED Follow-up: fall on 07/23/24 Cady Bermuen is a 78 year old female who presents here today for Above Complaints.. Health Maintenance Spirometry Anxiety Screening BP Controlled (<130/80) Advance Directive Discussion HPI This is a very pleasant 78-year-old with a past medical history of paroxysmal A-fib, essential hypertension, asthma, irritable bowel, allergic rhinitis, severe episode of recurrent major depressive disorder. She is here for follow up. Moved to a new place. It is the [place] [employer]. It is a radha community of older people who care for each other, they are kind, and check on each other. She now knows around 16 people when she just knew 4 dogs before, and she is loving the amount she can garden there. She has been taking the lexapro for the past few weeks currently on a taper because she is doing very well right now and does not want to be in the e d. Gone for therapy and now she is doing much better, The change in environment helped her a lot too. 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 A squad had to be called, her lip split open, ad her jaw hurts as she fell on it. If she coughs or moves the wrong way it really hurts. Right now it hurts on the left side of the ribs. No problem-specific Assessment AND Plan notes found for this encounter. PAST MEDICAL HISTORY Diagnosis Date A-fib (HCC) February 2021 Asthma Atrial tachycardia (HCC) 10/14/2018 BPPV (benign paroxysmal positional vertigo) 10/30/2014 Degenerative disc disease 08/10/2014 Mild Degenerative disc disease C6-C7 Mild Anterolisthesis C7-T-1`- See scanned document Essential hypertension, benign Fibromyalgia Glaucoma, open angle Hypothyroidism 10/14/2018 Varicose veins 08/25/2014 Varicose veins of other sites Venous stasis ulcer of ankle 07/18/2013 Vestibular neuronitis Vitamin D deficiency 09/20/2013 PAST SURGICAL HISTORY Procedure Laterality Date ARTHRP TEMPOROMANDIBULAR JOINT W/WO AUTOGRAFT 1987 CATARACT SURGERY, COMPLEX 2005 Rt AND Lt COLONOSCOPY FLX DX W/COLLJ SPEC WHEN PFRMD 11/08/2010 Colonoscopy COLONOSCOPY FLX DX W/COLLJ SPEC WHEN PFRMD 08/23/2019 [facility] Cebul repeat is not recommended NEUROPLASTY AND/TRANSPOS MEDIAN NRV CARPAL TUNNE 1990 Carpal tunnel decomp-bilateral PAST SURGICAL HISTORY OF 08-21-05 EXCISION CYST LEFT MIDDLE FINGER PAST SURGICAL HISTORY OF right foot surgery- mortons neuroma PAST SURGICAL HISTORY OF 2014 left foot vein ablation TONSILLECTOMY PRIMARY/SECONDARY AGE 12/> 1962 FAMILY HISTORY Problem Relation Age of Onset Heart Father Allergies Sister Breast Cancer Sister age of 50's with diagnosis Prostate Cancer Brother Social History Tobacco Use Smoking status: Never Smokeless tobacco: Never Vaping Use Vaping status: Never Used Substance Use Topics Alcohol use: Not Currently Drug use: No Past medical history, appointments, medications, allergies reviewed. Pertinent Lab/Diagnostic Studies are reviewed and discussed today Current Outpatient Medications: melatonin 1 mg subl escitalopram oxalate (LEXAPRO) 5 mg tablet baclofen 10 mg tablet rosuvastatin (CRESTOR) 5 mg tablet Boswellia cecile extract (BOSWELLIA CECILE XT, BULK,) 70 % powd prasterone, DHEA, (DHEA ORAL) metoprolol tartrate, short acting, (LOPRESSOR) 25 mg tablet timolol maleate (TIMOPTIC) 0.5 % ophthalmic solution warfarin (COUMADIN) 5 mg tablet ALPHA LIPOIC ACID ORAL Cholecalciferol, Vitamin D3, 50 mcg (2,000 unit) cap COQ10, UBIQUINOL, ORAL latanoprost (XALATAN) 0.005 % ophthalmic solution Review of Systems CONSTITUTIONAL: No fevers, chills night sweats, unintended weight loss CARDIOVASCULAR: No chest pain, dyspnea, palpitations, orthopnea, PND, ankle edema. PULM: No dyspnea, unexplained cough. GI: No dysphagia/odynophagia, problematic reflux, constipation, diarrhea, changes in stool habits, hematochezia, melena. : No new urinary complaints, including dysuria, gross hematuria or pyuria. NEURO: No new balance problems, peripheral weakness/paresthesias or numbness of concern. Physical Exam BP 130/72 (BP Site: Right Arm, BP Position: Sitting, BP Cuff Size: Large Adult) Pulse (!) 53 Resp 12 Ht 165.1 cm (5' 5") Wt 73 kg (161 lb) SpO2 94% BMI 26.79 kg/m? General appearance: Well appearing, alert, in no acute distress, well nourished. Skin: Skin color, texture, turgor normal, no suspicious rashes or lesions Head: Normocephalic, no masses, lesions, tendernes (more content not included)...[facility] History of Present illness Narrative* Moon Teixeira MD - 06/27/2024 10:22 AM EST Reason for Visit Patient presents with: ED Follow-up: fall on 07/23/24 Cady Berumen is a 78 year old female who presents here today for Above Complaints.. Health Maintenance Spirometry Anxiety Screening BP Controlled (<130/80) Advance Directive Discussion HPI This is a very pleasant 78-year-old with a past medical history of paroxysmal A- fib, essential hypertension, asthma, irritable bowel, allergic rhinitis, severe episode of recurrent major depressive disorder. She is here for follow up. Moved to a new place. [facility] is [facility] [employer]. It is a radha community of older people who care for each other, they are kind, and check on each other. She now knows around 16 people when she just knew 4 dogs before, and she is loving the amount she can garden there. She has been taking the lexapro for the past few weeks currently on a taper because she is doing very well right now and does not want to be in the e d. Gone for therapy and now she is doing much better, The change in environment helped her a lot too. Lipids are elevated mildly, she is exercising, and working to lose the few pounds that she gained now that she does not have to be a caregiver which consumed her life 06/27/24: Er follow up after she missed checking on the curb, where there was a little elevation andher foot caught and she went down hard. A squad had to be called, her lip split open, ad her jaw hurts as she fell on it. If she coughs or moves the wrong way it really hurts. Right now it hurts on the left side of the ribs. No problem-specific Assessment & Plan notes found for this encounter. PAST MEDICAL HISTORY Diagnosis Date A-fib (HCC) February 2021 Asthma Atrial tachycardia (HCC) 10/14/2018 BPPV (benign paroxysmal positional vertigo) 10/30/2014 Degenerative disc disease 08/10/2014 Mild Degenerative disc disease C6-C7 Mild Anterolisthesis C7-T-1`- See scanned document Essential hypertension, benign Fibromyalgia Glaucoma, open angle Hypothyroidism 10/14/2018 Varicose veins 08/25/2014 Varicose veins of other sites Venous stasis ulcer of ankle 07/18/2013 Vestibular neuronitis Vitamin D deficiency 09/20/2013 PAST SURGICAL HISTORY Procedure Laterality Date ARTHRP TEMPOROMANDIBULAR JOINT W/WO AUTOGRAFT 1987 CATARACT SURGERY, COMPLEX 2006 Rt & Lt COLONOSCOPY FLX DX W/COLLJ SPEC WHEN PFRMD 11/08/2010 Colonoscopy COLONOSCOPY FLX DX W/COLLJ SPEC WHEN PFRMD 08/23/2019 [facility] C[facility]ul repeat is not recommended NEUROPLASTY &/TRANSPOS MEDIAN NRV CARPAL TUNNE 1990 Carpal tunnel decomp-bilateral PAST SURGICAL HISTORY OF 08-21-05 EXCISION CYST LEFT MIDDLE FINGER PAST SURGICAL HISTORY OF right foot surgery- mortons neuroma PAST SURGICAL HISTORY OF 2013 left foot vein ablation TONSILLECTOMY PRIMARY/SECONDARY AGE 12/> 1962 FAMILY HISTORY Problem Relation Age of Onset Heart Father Allergies Sister Breast Cancer Sister age of 50's with diagnosis Prostate Cancer Brother Social History Tobacco Use Smoking status: Never Smokeless tobacco: Never Vaping Use Vaping status: Never Used Substance Use Topics Alcohol use: Not Currently Drug use: No Past medical history, appointments, medications, allergies reviewed. Pertinent Lab/Diagnostic Studies are reviewed and discussed today Current Outpatient Medications: melatonin 1 mg subl escitalopram oxalate (LEXAPRO) 5 mg tablet baclofen 10 mg tablet rosuvastatin (CRESTOR) 5 mg tablet Boswellia cecile extract (BOSWELLIA CECILE XT, BULK,) 70 % powd prasterone, DHEA, (DHEA ORAL) metoprolol tartrate, short acting, (LOPRESSOR) 25 mg tablet timolol maleate (TIMOPTIC) 0.5 % ophthalmic solution warfarin (COUMADIN) 5 mg tablet ALPHA LIPOIC ACID ORAL Cholecalciferol, Vitamin D3, 50 mcg (2,000 unit) cap COQ10, UBIQUINOL, ORAL latanoprost (XALATAN) 0.005 % ophthalmic solution Review of Systems CONSTITUTIONAL: No fevers, chills night sweats, unintended weight loss CARDIOVASCULAR: No chest pain, dyspnea, palpitations, orthopnea, PND, ankle edema. PULM: No dyspnea, unexplained cough. GI: No dysphagia/odynophagia, problematic reflux, constipation, diarrhea, changes in stool habits, hematochezia, melena. : No new urinary complaints, including dysuria, gross hematuria or pyuria. NEURO: No new balance problems, peripheral weakness/paresthesias or numbness of concern. Physical Exam BP 130/72 (BP Site: Right Arm, BP Position: Sitting, BP Cuff Size: Large Adult) Pulse (!) 53 Resp 12 Ht 165.1 cm (5' 5") Wt 73 kg (161 lb) SpO2 94% BMI 26.79 kg/m General appearance: Well appearing, alert, in no acute distress, well nourished. Skin: Skin color, texture, turgor normal, no suspicious rashes or lesions Head: Normocephalic, no masses, lesions, tenderness or abnormalities Eyes: Anicteric sclera. Pupils are equally round and reactive to light. Extraocular movements are intact. Pain to palpation of the 2nd to 3rd rib in the anterior axillary line ASSESSMENT/PLAN: 1. Fall, sequela - ICD9: 909.4, E929.3, ICD10: W19.XXXS (primary diagnosis) - XR RIBS 2V AP/OBL LEFT 2. Balance disorder - ICD9: 781.99, ICD10: R26.89 The patient would benefit from Physical Therapy 3. Abnormality of gait due to impairment of balance - ICD9: 781.2, ICD10: R26.89 Consult Physical Therapy 4. Painful rib - ICD9: 786.50, ICD10: R07.81 - XR RIBS 2V AP/OBL LEFT Moon Teixeira MD documented in this encounterC[facility]11-[facility]24 Telephone encounter Note * Telephone Encounter - Vernell James RN - 06/27/2024 8:27 AM EST Patient calling to make ER Follow Up Appointment and discuss current residual sx's she is having. Appt made with PCP for today. Pt states she went to [facility] ER on 06/22/24 after falling forward onto her front side. Has abrasion below her nose, redness to hand and residual soreness throughout. States she had Head CT and other xrays-no fractures. Reports this morning she noted her left side to be more sore, especially with certain movements, taking in a deep breath or coughing. Reports left side pain at rest is 5/10 and 8/10 at worst with certain activities. Denies chest pain, SOB or lightheadedness/dizziness. Denies any severe sx's at thistime. Pt aware to return to ER for severe sx's as discussed during call. Vernell James RN [facility]11-04-2024 Miscellaneous Notes* Telephone Encounter - Vernell James RN - 06/27/2024 8:27 AM EST Patient calling to make ER Follow Up Appointment and discuss current residual sx's she is having. Appt made with PCP for today. Pt states she went to [facility] ER on 06/22/24 after falling forward onto her front side. Has abrasion below her nose, redness to hand and residual soreness throughout. States she had Head CT and other xrays-no fractures. Reports this morning she noted her left side to be more sore, especially with certain movements, taking in a deep breath or coughing. Reports left side pain at rest is 5/10 and 8/10 at worst with certain activities. Denies chest pain, SOB or lightheadedness/dizziness. Denies any severe sx's at thistime. Pt aware to return to ER for severe sx's as discussed during call. Vernell James RN documented in this encounterCinc[facility]10-25-2024 Telephone encounter Note * Telephone Encounter - Nazanin Reyes MA - 06/17/2024 9:51 AM EDT Faxed GI referral to Dr John office. Faxed swallow study to [facility]. [facility]10-[facility] Miscellaneous Notes* Telephone Encounter - Nazanin Reyes MA - 06/17/2024 9:51 AM EDT Faxed GI referral to Dr John office. Faxed swallow study to [facility]. * Telephone Encounter - Vernell Platt - 06/17/2024 9:34 AM EDT Spoke with the patient and she prefers this order to be faxed to Dr John * Telephone Encounter - Moon Teixeira MD - 06/16/2024 5:24 PM EDT Order placed please help with scheduling Regards, Moon Teixeira MD * Telephone Encounter - Lauren Bui RN - 06/16/2024 2:15 PM EDT Heide with [facility] calls to let provider know that her recommendation following the swallow study isfor a gi referral (patient had a lot of reflux on study) and an order for Fiberoptic Endoscopic evaluation of Swallowing (FEES). Lauren Bui RN documented in this encounterCincinnati [facility]10-25-2024 Telephone encounter Note * Telephone Encounter - Vernell Platt - 06/17/2024 9:34 AM EDT Spoke with the patient and she prefers this order to be faxed to Dr John [facility]10-24-[facility] Telephone encounter Note* Telephone Encounter - Moon Teixeira MD - 06/16/2024 5:24 PM EDT Order placed please help with scheduling Regards, Moon Teixeira MD [facility]10-24-[facility]24 Telephone encounter Note* Telephone Encounter - Lauren Bui RN - 06/16/2024 2:15 PM EDT Heide with [facility] calls to let provider know that her recommendation following the swallow study isfor a gi referral (patient had a lot of reflux on study) and an order for Fiberoptic Endoscopic evaluation of Swallowing (FEES). Lauren Bui RN [facility]09-26-2024 Telephone encounter Note* Telephone Encounter - Mago Cerrato LPN - 05/19/2024 11:49 AM EDT Called and spoke to Radiology Traci, Faxed order and facesheet Mago Cerrato LPN May 19, 2024 11:49 AM [facility]09-26-2024 Miscellaneous Notes* Telephone Encounter - Mago Cerrato LPN - 05/19/2024 11:49 AM EDT Called and spoke to Radiology Traci, Faxed order and facesheet Mago Cerrato LPN May 19, 2024 11:49 AM * Telephone Encounter - Moon Teixeira MD - 05/17/2024 1:05 PM EDT Ok noted. I put an order for swallow eval, please see if that would is the order the radiologist is looking for? Thank you Regards, Moon Teixeira MD * Telephone Encounter - Megan Rodriguez RN - 05/17/2024 9:58 AM EDT Pt called in and reports she fell last night going to the bathroom and hit her head. She said she somersaulted and has a bump on her head, and she is on a blood thinner. Pt is going to be going to [facility] ER to be checked out. Letting providers office know so they can look out for ER report. * Telephone Encounter - Esha Santiago LPN - 05/17/2024 9:18 AM EDT Alexa with [facility] radiology called to let you know pt was scheduled today for an esophagram. This was put on hold. The radiologist would like pt to have a cookie swallow done first to see if pt is silently aspirating and if so they can caught this. Pt aware this will need to be done. Please send orders over to the hospital to have this scheduled and pt can also reschedule the esophagram. Please advisept when orders have been faxed to [facility] so she can call to schedule. Esha Santiago LPN documented in this [facility] Telephone encounter Note * Telephone Encounter - Moon Teixeira MD - 05/17/2024 1:05 PM EDT Ok noted. I put an order for swallow eval, please see if that would is the order the radiologist is looking for? Thank you Regards, Moon Teixeira MD [facility]09-24-2024 Telephone encounter Note* Telephone Encounter - Megan Rodriguez RN - 05/17/2024 9:58 AM EDT Pt called in and reports she fell last night going to the bathroom and hit her head. She said she somersaulted and has a bump on her head, and she is on a blood thinner. Pt is going to be going to [facility] ER to be checked out. Letting providers office know so they can look out for ER report. [facility]09-24-2024 Telephone encounter Note* Telephone Encounter - Esha Santiago LPN - 05/17/2024 9:18 AM EDT Alexa with [facility] radiology called to let you know pt was scheduled today for an esophagram. This was put on hold. The radiologist would like pt to have a cookie swallow done first to see if pt is silently aspirating and if so they can caught this. Pt aware this will need to be done. Please send orders over to the hospital to have this scheduled and pt can also reschedule the esophagram. Please advisept when orders have been faxed to [facility] so she can call to schedule. Esha Santiago LPN [facility]09-13-2024 NoteHNO ID: [id number] Author: MOON TEIXEIRA MD Service: ? Author Type: Physician Type: Progress Notes Filed: 05/06/2024 15:04 Note Text: Reason for Visit Patient presents with: Recheck: 4 week follow up Cady Berumen is a 78 year old female who presents here today for Above Complaints.. Health Maintenance Spirometry Anxiety Screening BP Controlled (<130/80) Advance Directive Discussion HPI This is a very pleasant 78-year-old with a past medical history of paroxysmal A-fib, essential hypertension, asthma, irritable bowel, allergic rhinitis, severe episode of recurrent major depressive disorder. She is here for follow up. Moved to a new place. [place] is a radha community of older people who care for each other, they are kind, and check on each other. She now knows around 16 people when she just knew 4 dogs before, and she is loving the amount she can garden there. She has been taking the lexapro for the past few weeks currently on a taper because she is doing very well right now and does not want to be in the e d. Gone for therapy and now she is doing much better, The change in environment helped her a lot too. Lipids are elevated mildly, she is exercising, and working to lose the few pounds that she gained now that she does not have to be a caregiver which consumed her life No problem-specific Assessment AND Plan notes found for this encounter. PAST MEDICAL HISTORY Diagnosis Date A-fib (HCC) February 2021 Asthma Atrial tachycardia (HCC) 10/14/2018 BPPV (benign paroxysmal positional vertigo) 10/30/2014 Degenerative disc disease 08/10/2014 Mild Degenerative disc disease C6-C7 Mild Anterolisthesis C7-T-1`- See scanned document Essential hypertension, benign Fibromyalgia Glaucoma, open angle Hypothyroidism 10/14/2018 Varicose veins 08/25/2014 Varicose veins of other sites Venous stasis ulcer of ankle 07/18/2013 Vestibular neuronitis Vitamin D deficiency 09/20/2013 PAST SURGICAL HISTORY Procedure Laterality Date ARTHRP TEMPOROMANDIBULAR JOINT W/WO AUTOGRAFT 1987 CATARACT SURGERY, COMPLEX 2005 Rt AND Lt COLONOSCOPY FLX DX W/COLLJ SPEC WHEN PFRMD 11/08/2010 Colonoscopy COLONOSCOPY FLX DX W/COLLJ SPEC WHEN PFRMD 08/23/2019 [facility]-R. Cebul repeat is not recommended NEUROPLASTY AND/TRANSPOS MEDIAN NRV CARPAL TUNNE 1990 Carpal tunnel decomp-bilateral PAST SURGICAL HISTORY OF 08-21-05 EXCISION CYST LEFT MIDDLE FINGER PAST SURGICAL HISTORY OF right foot surgery- mortons neuroma PAST SURGICAL HISTORY OF 2013 left foot vein ablation TONSILLECTOMY PRIMARY/SECONDARY AGE 12/> 1962 FAMILY HISTORY Problem Relation Age of Onset Heart Father Allergies Sister Breast Cancer Sister age of 50's with diagnosis Prostate Cancer Brother Social History Tobacco Use Smoking status: Never Smokeless tobacco: Never Vaping Use Vaping status: Never Used Substance Use Topics Alcohol use: Not Currently Drug use: No Past medical history, appointments, medications, allergies reviewed. Pertinent Lab/Diagnostic Studies are reviewed and discussed today Current Outpatient Medications: melatonin 1 mg subl escitalopram oxalate (LEXAPRO) 5 mg tablet baclofen 10 mg tablet rosuvastatin (CRESTOR) 5 mg tablet Boswellia cecile extract (BOSWELLIA CECILE XT, BULK,) 70 % powd prasterone, DHEA, (DHEA ORAL) metoprolol tartrate, short acting, (LOPRESSOR) 25 mg tablet timolol maleate (TIMOPTIC) 0.5 % ophthalmic solution warfarin (COUMADIN) 5 mg tablet ALPHA LIPOIC ACID ORAL Cholecalciferol, Vitamin D3, 50 mcg (2,000 unit) cap COQ10, UBIQUINOL, ORAL latanoprost (XALATAN) 0.005 % ophthalmic solution Review of Systems CONSTITUTIONAL: No fevers, chills night sweats, unintended weight loss CARDIOVASCULAR: No chest pain, dyspnea, palpitations, orthopnea, PND, ankle edema. PULM: No dyspnea, unexplained cough. GI: No dysphagia/odynophagia, problematic reflux, constipation, diarrhea, changes in stool habits, hematochezia, melena. : No new urinary complaints, including dysuria, gross hematuria or pyuria. NEURO: No new balance problems, peripheral weakness/paresthesias or numbness of concern. Physical Exam BP 110/76 (BP Site: Left Arm) Pulse 63 Wt 72.4 kg (159 lb 9.8 oz) SpO2 98% BMI 26.56 kg/m? General appearance: Well appearing, alert, in no acute distress, well nourished. Skin: Skin color, texture, turgor normal, no suspicious rashes or lesions Head: Normocephalic, no masses, lesions, tenderness or abnormalities Eyes: Anicteric sclera. Pupils are equally round and reactive to light. Extraocular movements are intact. Pain to palpation of the 10 to 12 rib in the anterior axillary line ASSESSMENT/PLAN: 1. Anxiety and depression - ICD9: 300.00, 311, ICD10: F41.9, F32.A (primary diagnosis) She is currently doing well 2. 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 Health Maintenance Spirometry Anxiety Screening BP Controlled (<130/80) Advance Directive Discussion HPI This is a very pleasant 78-year-old with a past medical history of paroxysmal A- fib, essential hypertension, asthma, irritable bowel, allergic rhinitis, severe episode of recurrent major depressive disorder. She is here for follow up. Moved to a new place. [place]. [place] is a [place] community of older people who care for each other, they are kind, and check on each other. She now knows around 16 people when she just knew 4 dogs before, and she is loving the amount she can garden there. She has been taking the lexapro for the past few weeks currently on a taper because she is doing very well right now and does not want to be in the e d. Gone for therapy and now she is doing much better, The change in environment helped her a lot too. Lipids are elevated mildly, she is exercising, and working to lose the few pounds that she gained now that she does not have to be a caregiver which consumed her life No problem-specific Assessment & Plan notes found for this encounter. PAST MEDICAL HISTORY Diagnosis Date A-fib (HCC) February 2021 Asthma Atrial tachycardia (HCC) 10/14/2018 BPPV (benign paroxysmal positional vertigo) 10/30/2014 Degenerative disc disease 08/10/2014 Mild Degenerative disc disease C6-C7 Mild Anterolisthesis C7-T-1`- See scanned document Essential hypertension, benign Fibromyalgia Glaucoma, open angle Hypothyroidism 10/14/2018 Varicose veins 08/25/2014 Varicose veins of other sites Venous stasis ulcer of ankle 07/18/2013 Vestibular neuronitis Vitamin D deficiency 09/20/2013 PAST SURGICAL HISTORY Procedure Laterality Date ARTHRP TEMPOROMANDIBULAR JOINT W/WO AUTOGRAFT 1987 CATARACT SURGERY, COMPLEX 2005 Rt & Lt COLONOSCOPY FLX DX W/COLLJ SPEC WHEN PFRMD 11/08/2010 Colonoscopy COLONOSCOPY FLX DX W/COLLJ SPEC WHEN PFRMD 08/23/2019 [facility]-R. Cebul repeat is not recommended NEUROPLASTY &/TRANSPOS MEDIAN NRV CARPAL TUNNE 1990 Carpal tunnel decomp-bilateral PAST SURGICAL HISTORY OF 08-21-05 EXCISION CYST LEFT MIDDLE FINGER PAST SURGICAL HISTORY OF right foot surgery- mortons neuroma PAST SURGICAL HISTORY OF 2013 left foot vein ablation TONSILLECTOMY PRIMARY/SECONDARY AGE 12/> 1962 FAMILY HISTORY Problem Relation Age of Onset Heart Father Allergies Sister Breast Cancer Sister age of 50's with diagnosis Prostate Cancer Brother Social History Tobacco Use Smoking status: Never Smokeless tobacco: Never Vaping Use Vaping status: Never Used Substance Use Topics Alcohol use: Not Currently Drug use: No Past medical history, appointments, medications, allergies reviewed. Pertinent Lab/Diagnostic Studies are reviewed and discussed today Current Outpatient Medications: melatonin 1 mg subl escitalopram oxalate (LEXAPRO) 5 mg tablet baclofen 10 mg tablet rosuvastatin (CRESTOR) 5 mg tablet Boswellia cecile extract (BOSWELLIA CECILE XT, BULK,) 70 % powd prasterone, DHEA, (DHEA ORAL) metoprolol tartrate, short acting, (LOPRESSOR) 25 mg tablet timolol maleate (TIMOPTIC) 0.5 % ophthalmic solution warfarin (COUMADIN) 5 mg tablet ALPHA LIPOIC ACID ORAL Cholecalciferol, Vitamin D3, 50 mcg (2,000 unit) cap COQ10, UBIQUINOL, ORAL latanoprost (XALATAN) 0.005 % ophthalmic solution Review of Systems CONSTITUTIONAL: No fevers, chills night sweats, unintended weight loss CARDIOVASCULAR: No chest pain, dyspnea, palpitations, orthopnea, PND, ankle edema. PULM: No dyspnea, unexplained cough. GI: No dysphagia/odynophagia, problematic reflux, constipation, diarrhea, changes in stool habits, hematochezia, melena. : No new urinary complaints, including dysuria, gross hematuria or pyuria. NEURO: No new balance problems, peripheral weakness/paresthesias or numbness of concern. Physical Exam BP 110/76 (BP Site: Left Arm) Pulse 63 Wt 72.4 kg (159 lb 9.8 oz) SpO2 98% BMI 26.56 kg/m General appearance: Well appearing, alert, in no acute distress, well nourished. Skin: Skin color, texture, turgor normal, no suspicious rashes or lesions Head: Normocephalic, no masses, lesions, tenderness or abnormalities Eyes: Anicteric sclera. Pupils are equally round and reactive to light. Extraocular movements are intact. Pain to palpation of the 10 to 12 rib in the anterior axillary line ASSESSMENT/PLAN: 1. Anxiety and depression - ICD9: 300.00, 311, ICD10: F41.9, F32.A (primary diagnosis) She is currently doing well 2. Mixed hyperlipidemia - ICD9: 272.2, ICD10: E78.2 - Controlled - Counseled on healthy diet and regular exercise 3. Essential hypertension - ICD9: 401.9, ICD10: I10 - Controlled - Recommend home blood pressure monitoring, to bring results to next visit - Encouraged sodium restriction, DASH or Mediterranean diet - Recommend regular aerobic exercise Moon Teixeira MD documented in [facility] Telephone encounter Note * Telephone Encounter - Linda Mars LPN - 04/29/2024 3:00 PM EDT Pt returns call , gave information provided. Pt voices understanding. [facility]09-06-2024 Miscellaneous Notes* Telephone Encounter - Linda Mars LPN - 04/29/2024 3:00 PM EDT Pt returns call , gave information provided. Pt voices understanding. * Telephone Encounter - Nazanin Reyes MA - 04/29/2024 2:42 PM EDT Tried calling patient, no answer/VM, * Telephone Encounter - Moon Teixeira MD - 04/29/2024 1:40 PM EDT If there is anything I can do to help answer questions or alleviate her fears I am willing to do that as the lexpro is the most studied medication and should be good for her. It is a relatively safe medication. If you read the side effects, you will find multiple dozens of them but they wont necessarily happen to her. If she has not experienced any then likely she wont. If she still wants to quit then let her take 1 pill every other day for a week and then stop the medication,. Regards, Moon Teixeira MD * Telephone Encounter - Debra Cho LPN - 04/29/2024 11:46 AM EDT Patient calling, states that she read the side effects of the Lexapro and does not want to take it anymore. Asking how she should wean off of this medication. Please advise. documented in this encounterC[facility] Telephone encounter Note * Telephone Encounter - Nazanin Reyes MA - 04/29/2024 2:42 PM EDT Tried calling patient, no answer/VM, [facility]09-06-2024 Telephone encounter Note* Telephone Encounter - Moon Teixeira MD - 04/29/2024 1:40 PM EDT If there is anything I can do to help answer questions or alleviate her fears I am willing to do that as the lexpro is the most studied medication and should be good for her. It is a relatively safe medication. If you read the side effects, you will find multiple dozens of them but they wont necessarily happen to her. If she has not experienced any then likely she wont. If she still wants to quit then let her take 1 pill every other day for a week and then stop the medication,. Regards, Moon Teixeira MD [facility]09-06-2024 Telephone encounter Note* Telephone Encounter - Debra Cho LPN - 04/29/2024 11:46 AM EDT Patient calling, states that she read the side effects of the Lexapro and does not want to take it anymore. Asking how she should wean off of this medication. Please advise. [facility]09-04-2024 Telephone encounter Note* Telephone Encounter - Janessa Morton LPN - 04/27/2024 8:42 AM EDT Patient returned call and went over results from Dr Teixeira with understanding. [facility]09-04-2024 Miscellaneous Notes* Telephone Encounter - Janessa Morton LPN - 04/27/2024 8:42 AM EDT Patient returned call and went over results from Dr Teixeira with understanding. * Telephone Encounter - Moon Teixeira MD - 04/27/2024 6:31 AM EDT No rib fracture on the left side Moon Saenz MD * Telephone Encounter - Patricia Perkins LPN - 04/26/2024 2:46 PM EDT Pt calling for xray results from . Patricia Perkins LPN documented in this encounterCinc[facility]09-04-2024 Telephone encounter Note * Telephone Encounter - Moon Teixeira MD - 04/27/2024 6:31 AM EDT No rib fracture on the left side Moon Saenz MD [facility]09-03-2024 Telephone encounter Note* Telephone Encounter - Patricia Perkins LPN - 04/26/2024 2:46 PM EDT Pt calling for xray results from . Patricia Perkins LPN [facility]08-31-2024 History of Present illness Narrative* Errol Tomas, RT(R) - 04/23/2024 10:00 AM EDT Radiology Service Progress Note PATIENT NAME: Cady Berumen DATE OF SERVICE: April 23, 2024 TIME: 10:08 AM PATIENT IDENTITY VERIFICATION COMPLETED USING TWO (2) IDENTIFIERS: Name and Date of confirmedby patient verbally. FALL SCREENING: Has the patient had 2 falls in the last year or 1 fall with injury or currently using an Ambulatory Assistive Device (Walker, Cane, Wheelchair, Crutches, etc.)? No PATIENT GENDER DATA: Female. status: : No status: NO. PATIENT RELEVANT IMPLANT DATA REVIEWED: Not Applicable PATIENT PRESENTS WITH AN IMPLANTABLE OR ATTACHED AWS CONSULTANT: No RADIOLOGY DEPARTMENT: General X-ray: Exam(s) Completed: Rib X-Ray: Left PERIPHERAL IV DATA: Not applicable SIGNED BY: YECENIA Daily) April 23, 2024 10:08 AM documented in this encounterCincinnati [facility] Center08-31-2024 NoteHNO ID: [id number] Author: ERROL TOMAS RT(R) Service: ? Author Type: Technologist Type: Progress Notes Filed: 04/23/2024 10:14 Note Text: Radiology Service Progress Note PATIENT NAME: Cady Berumen DATE OF SERVICE: April 23, 2024 TIME: 10:08 AM PATIENT IDENTITY VERIFICATION COMPLETED USING TWO (2) IDENTIFIERS: Name and Date of confirmed by patient verbally. FALL SCREENING: Has the patient had 2 falls in the last year or 1 fall with injury or currently using an Ambulatory Assistive Device (Walker, Cane, Wheelchair, Crutches, etc.)? No PATIENT GENDER DATA: Female. status: : No status: NO. PATIENT RELEVANT IMPLANT DATA REVIEWED: Not Applicable PATIENT PRESENTS WITH AN IMPLANTABLE OR ATTACHED AWS CONSULTANT: No RADIOLOGY DEPARTMENT: General X-ray: Exam(s) Completed: Rib X-Ray: Left PERIPHERAL IV DATA: Not applicable SIGNED BY: YECENIA Daily) April 23, 2024 10:08 [facility]08-30-2024 NoteHNO ID: [id number] Author: MOON TEIXEIRA MD Service: ? Author Type: Physician Type: Progress Notes Filed: 04/22/2024 16:54 Note Text: Reason for Visit Patient presents with: Pain: Left side of chest since last week. Moved and lifting things up saw chiropractor, searing pain in chest muscle taking muscle relaxer seemed to help. Cady Berumen is a 78 year old female who presents here today for Above Complaints.. Health Maintenance Spirometry Anxiety Screening BP Controlled (<130/80) Advance Directive Discussion HPI This is a very pleasant 78-year-old with a past medical history of paroxysmal A-fib, essential hypertension, asthma, irritable bowel, allergic rhinitis, severe episode of recurrent major depressive disorder. Was unpacking at home on , she was putting them up on a shelf above her head, about 2 am to go to the restroom and she just could not straighten up. It hurt in her ribs not her hip. She took some baclofen and thought she was fine , went to chiropractor for regular session but she had a lot of pain in the ribs No problem-specific Assessment AND Plan notes found for this encounter. 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 Cebul repeat is not recommended 1991: NEUROPLASTY AND/TRANSPOS MEDIAN NRV CARPAL TUNNE Comment: Carpal tunnel decomp-bilateral 08-21-05: PAST SURGICAL HISTORY OF Comment: EXCISION CYST LEFT MIDDLE FINGER No date: PAST SURGICAL HISTORY OF Comment: right foot surgery- mortons neuroma 2014: PAST SURGICAL HISTORY OF Comment: left foot vein ablation 196: TONSILLECTOMY PRIMARY/SECONDARY AGE 12/> FAMILY HISTORY Problem Relation Age of Onset Heart Father Allergies Sister Breast Cancer Sister age of 50's with diagnosis Prostate Cancer Brother Social History Tobacco Use Smoking status: Never Smokeless tobacco: Never Vaping Use Vaping status: Never Used Substance Use Topics Alcohol use: Not Currently Drug use: No Past medical history, appointments, medications, allergies reviewed. Pertinent Lab/Diagnostic Studies are reviewed and discussed today Current Outpatient Medications: melatonin 1 mg subl escitalopram oxalate (LEXAPRO) 5 mg tablet baclofen 10 mg tablet rosuvastatin (CRESTOR) 5 mg tablet Boswellia cecile extract (BOSWELLIA CECILE XT, BULK,) 70 % powd prasterone, DHEA, (DHEA ORAL) metoprolol tartrate, short acting, (LOPRESSOR) 25 mg tablet timolol maleate (TIMOPTIC) 0.5 % ophthalmic solution warfarin (COUMADIN) 5 mg tablet ALPHA LIPOIC ACID ORAL Cholecalciferol, Vitamin D3, 50 mcg (2,000 unit) cap COQ10, UBIQUINOL, ORAL latanoprost (XALATAN) 0.005 % ophthalmic solution Review of Systems CONSTITUTIONAL: No fevers, chills night sweats, unintended weight loss CARDIOVASCULAR: No chest pain, dyspnea, palpitations, orthopnea, PND, ankle edema. PULM: No dyspnea, unexplained cough. GI: No dysphagia/odynophagia, problematic reflux, constipation, diarrhea, changes in stool habits, hematochezia, melena. : No new urinary complaints, including dysuria, gross hematuria or pyuria. NEURO: No new balance problems, peripheral weakness/paresthesias or numbness of concern. Physical Exam There were no vitals taken for this visit. General appearance: Well appearing, alert, in no acute distress, well nourished. Skin: Skin color, texture, turgor normal, no suspicious rashes or lesions Head: Normocephalic, no masses, lesions, tenderness or abnormalities Eyes: Anicteric sclera. Pupils are equally round and reactive to light. Extraocular movements are intact. Pain to palpation of the 10 to 12 rib in the anterior axillary line ASSESSMENT/PLAN: 1. Rib pain - ICD9: 786.50, ICD10: R07.81 (primary diagnosis) - XR RIBS 2V AP/OBL LEFT 2. Muscle spasm - ICD9: 728.85, ICD10: M62.838 - XR RIBS 2V AP/OBL LEFT Moon Teixeira [facility]08-30-2024 History of Present illness Narrative* Moon Teixeira MD - 04/22/2024 4:05 PM EDT Reason for Visit Patient presents with: Pain: Left side of chest since last week. Moved and lifting things up saw chiropractor, searing pain in chest muscle taking muscle relaxer seemed to help. Cady Berumen is a 78 year old female who presents here today for Above Complaints.. Health Maintenance Spirometry Anxiety Screening BP Controlled (<130/80) Advance Directive Discussion HPI This is a very pleasant 78-year-old with a past medical history of paroxysmal A- fib, essential hypertension, asthma, irritable bowel, allergic rhinitis, severe episode of recurrent major depressive disorder. Was unpacking at home on , she was putting them up on a shelf above her head, about 2 am togo to the restroom and she just could not straighten up. It hurt in her ribs not her hip. She took some baclofen and thought she was fine , went to chiropractor for regular session but she had a lot of pain in the ribs No problem-specific Assessment & Plan notes found for this encounter. 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: Vitamin D deficiency PAST SURGICAL HISTORY 1988: ARTHRP TEMPOROMANDIBULAR JOINT W/WO AUTOGRAFT 2006: CATARACT SURGERY, COMPLEX Comment: Rt & Lt 11/08/2010: COLONOSCOPY FLX DX W/COLLJ SPEC WHEN PFRMD Comment: Colonoscopy 08/23/2019: COLONOSCOPY FLX DX W/COLLJ SPEC WHEN PFRMD Comment: [facility] repeat is not recommended 1991: NEUROPLASTY &/TRANSPOS MEDIAN NRV CARPAL TUNNE Comment: Carpal tunnel decomp-bilateral 08-21-05: PAST SURGICAL HISTORY OF Comment: EXCISION CYST LEFT MIDDLE FINGER No date: PAST SURGICAL HISTORY OF Comment: right foot surgery- mortons neuroma 2014: PAST SURGICAL HISTORY OF Comment: left foot vein ablation 196: TONSILLECTOMY PRIMARY/SECONDARY AGE 12/> FAMILY HISTORY Problem Relation Age of Onset Heart Father Allergies Sister Breast Cancer Sister age of 50's with diagnosis Prostate Cancer Brother Social History Tobacco Use Smoking status: Never Smokeless tobacco: Never Vaping Use Vaping status: Never Used Substance Use Topics Alcohol use: Not Currently Drug use: No Past medical history, appointments, medications, allergies reviewed. Pertinent Lab/Diagnostic Studies are reviewed and discussed today Current Outpatient Medications: melatonin 1 mg subl escitalopram oxalate (LEXAPRO) 5 mg tablet baclofen 10 mg tablet rosuvastatin (CRESTOR) 5 mg tablet Boswellia cecile extract (BOSWELLIA CECILE XT, BULK,) 70 % powd prasterone, DHEA, (DHEA ORAL) metoprolol tartrate, short acting, (LOPRESSOR) 25 mg tablet timolol maleate (TIMOPTIC) 0.5 % ophthalmic solution warfarin (COUMADIN) 5 mg tablet ALPHA LIPOIC ACID ORAL Cholecalciferol, Vitamin D3, 50 mcg (2,000 unit) cap COQ10, UBIQUINOL, ORAL latanoprost (XALATAN) 0.005 % ophthalmic solution Review of Systems CONSTITUTIONAL: No fevers, chills night sweats, unintended weight loss CARDIOVASCULAR: No chest pain, dyspnea, palpitations, orthopnea, PND, ankle edema. PULM: No dyspnea, unexplained cough. GI: No dysphagia/odynophagia, problematic reflux, constipation, diarrhea, changes in stool habits, hematochezia, melena. : No new urinary complaints, including dysuria, gross hematuria or pyuria. NEURO: No new balance problems, peripheral weakness/paresthesias or numbness of concern. Physical Exam There were no vitals taken for this visit. General appearance: Well appearing, alert, in no acute distress, well nourished. Skin: Skin color, texture, turgor normal, no suspicious rashes or lesions Head: Normocephalic, no masses, lesions, tenderness or abnormalities Eyes: Anicteric sclera. Pupils are equally round and reactive to light. Extraocular movements are intact. Pain to palpation of the 10 to 12 rib in the anterior axillary line ASSESSMENT/PLAN: 1. Rib pain - ICD9: 786.50, ICD10: R07.81 (primary diagnosis) - XR RIBS 2V AP/OBL LEFT 2. Muscle spasm - ICD9: 728.85, ICD10: M62.838 - XR RIBS 2V AP/OBL LEFT Moon Teixeira MD documented in this encounterC[facility]24 NoteHNO ID: [id number] Author: GUCCI EMERY LISW Service: ? Author Type: Blow Mold Technician Type: Progress Notes Filed: 04/18/2024 13:05 Note Text: [facility] HOLISTIC PSYCH TREATMENT NOTE In Person Visit Individuals present:Self Date of Service: 04/18/2024 Start Time : 12:04 pm End Time:12:50 pm SUBJECTIVE: Pt presented today with symptoms of stress. Pt processed relationships with her daughters. Explored appropriate boundaries. PROGRESS TO DATE: Since last session, patient reports using therapeutic tools to practice identification of emotions, emotional expression, positive affirmations. GENERAL COMPLIANCE WITH ONGOING TREATMENT PLAN: PT reports using the mind/body tools at moderate intervals since last session. INTERVENTION(S): guided Inquiry, Clarification of behavioral patterns, discussion of alternatives, identification of emotions, processing of reactions, validation, identification and setting of healthy boundaries, and conflict exploration MENTAL STATUS SCREEN: APPEARANCE: Casual Dress, normal grooming and hygiene, ORIENTATION: oriented to time, oriented to place , oriented to person, and oriented to self: ATTITUDE: Calm and cooperative MOOD:euthymic AFFECT:Reactive and mood congruent SPEECH: Normal rate/tone/volume w/out pressure, THOUGHT PROCESS:goal directed and logical THOUGHT CONTENT:normal SUICIDAL IDEATION:None HOMICIDAL IDEATION:None PERCEPTIONS:no hallucinations/or delusions during interview MEMORY: short term intact and residential intact INSIGHT/JUDGEMENT: good DIAGNOSIS: 1. Moderate episode of recurrent major depressive disorder (HCC) - ICD9: 296.32, ICD10: F33.1 Other Conditions that May Be a Focus of Clinical Attention (V and Z codes) : none FOLLOW UP: 2 Week(s). Mental/Emotional Goals: Decrease symtoms of Anxiety Decrease symptoms of Depression Increase healthy thoughts Increase feelings of wellness Increase mental and emotional clarity Increase ability to process feelings in a healthy manner Relationship Goals: Set healthy boundaries for others Set healthy boundaries for self Gain clarity on the conflict cycle and practice empowerment tools Gain insight related to behavioral patterns Decrease limiting beliefs and increase positive self-talk Increase support systems Personal Vision: Develop mindfulness/meditation practice(s) Explore and engage in activities that align with interests REFERRALS: Referral to Psychiatrist No Referral to Neuro Psych Evaluation-Physician Order Needed No Referral to Integrative Physician No Referral to Primary Care Physician No Referral to Shared Medical Appointment: none Other Notes: Order placed for follow up appointments. Crisis Support- reviewed with Patient: Previously reviewed In the case of a mental health emergency, contact 911 and/or report to the local emergency room-this department is not available on a crisis/24 hour basis. Crisis Text Line: Text the word HOME to [phone] Copeline: [phone] Gucci Emery [facility]08-13-2024 History of Present illness Narrative* Moon Teixeira MD - 04/05/2024 9:00 AM EDT Reason for Visit Patient presents with: Establish Care: ER 04/05/24 AM Cady Berumen is a 78 year old female who presents here today for Above Complaints.. Health Maintenance Spirometry Anxiety Screening BP Controlled (<130/80) Advance Directive Discussion HPI This is a very pleasant 78-year-old with a past medical history of paroxysmal A- fib, essential hypertension, asthma, irritable bowel, allergic rhinitis, severe episode of recurrent major depressive disorder. Paroxysmal Afib: she first was diagnosed with afib after covid shots. Since then she has had palpitations on and off. on Eliquis and takes metoprolol as needed as her heart rate goes down to 44. She has a loop recorder from [facility]. She will follow up on May [address] Donaldson. Very stressed. She is going to complete moving the house end of the month. She drinks 2/3 cups of decaf green tea. She has been having swallowing issues, has trouble swallowing dry foods very occasionally. A lot of grief recently, with of and caregiver stress, with for many years and now with daughter with recent diagnosis of POTS. No problem-specific Assessment & Plan notes found for this encounter. 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: Vitamin D deficiency PAST SURGICAL HISTORY 1988: ARTHRP TEMPOROMANDIBULAR JOINT W/WO AUTOGRAFT 2006: CATARACT SURGERY, COMPLEX Comment: Rt & Lt 11/08/2010: COLONOSCOPY FLX DX W/COLLJ SPEC WHEN PFRMD Comment: Colonoscopy 08/23/2019: COLONOSCOPY FLX DX W/COLLJ SPEC WHEN PFRMD Comment: [facility] Cebul repeat is not recommended 1990: NEUROPLASTY &/TRANSPOS MEDIAN NRV CARPAL TUNNE Comment: Carpal tunnel decomp-bilateral 08-21-05: PAST SURGICAL HISTORY OF Comment: EXCISION CYST LEFT MIDDLE FINGER No date: PAST SURGICAL HISTORY OF Comment: right foot surgery- mortons neuroma 2014: PAST SURGICAL HISTORY OF Comment: left foot vein ablation 1961: TONSILLECTOMY PRIMARY/SECONDARY AGE 12/> FAMILY HISTORY Problem Relation Age of Onset Heart Father Allergies Sister Breast Cancer Sister age of 50's with diagnosis Prostate Cancer Brother Social History Tobacco Use Smoking status: Never Smokeless tobacco: Never Vaping Use Vaping Use: Never used Substance Use Topics Alcohol use: Not Currently Drug use: No Past medical history, appointments, medications, allergies reviewed. Pertinent Lab/Diagnostic Studies are reviewed and discussed today Current Outpatient Medications: baclofen 10 mg tablet rosuvastatin (CRESTOR) 5 mg tablet Boswellia cecile extract (BOSWELLIA CECILE XT, BULK,) 70 % powd prasterone, DHEA, (DHEA ORAL) metoprolol tartrate, short acting, (LOPRESSOR) 25 mg tablet timolol maleate (TIMOPTIC) 0.5 % ophthalmic solution warfarin (COUMADIN) 5 mg tablet ALPHA LIPOIC ACID ORAL Cholecalciferol, Vitamin D3, 50 mcg (2,000 unit) cap COQ10, UBIQUINOL, ORAL latanoprost (XALATAN) 0.005 % ophthalmic solution Review of Systems CONSTITUTIONAL: No fevers, chills night sweats, unintended weight loss CARDIOVASCULAR: No chest pain, dyspnea, palpitations, orthopnea, PND, ankle edema. PULM: No dyspnea, unexplained cough. GI: No dysphagia/odynophagia, problematic reflux, constipation, diarrhea, changes in stool habits, hematochezia, melena. : No new urinary complaints, including dysuria, gross hematuria or pyuria. NEURO: No new balance problems, peripheral weakness/paresthesias or numbness of concern. Physical Exam BP 100/64 Pulse 62 Resp 16 General appearance: Well appearing, alert, in no acute distress, well nourished. Skin: Skin color, texture, turgor normal, no suspicious rashes or lesions Head: Normocephalic, no masses, lesions, tenderness or abnormalities Eyes: Anicteric sclera. Pupils are equally round and reactive to light. Extraocular movements are intact. Lungs: Lungs clear to auscultation. No wheezing, rhonchi, rales Heart: RRR without murmur, gallop, or rubs. Extremities: No deformities, edema, skin discoloration, clubbing or cyanosis. Good capillary refill. ASSESSMENT/PLAN: 1. Dysphagia, unspecified type - ICD9: 787.20, ICD10: R13.10 (primary diagnosis) Would benefit from checking - XR ESOPHAGRAM 2. Choking episode - ICD9: 784.99, ICD10: R09.89 - XR ESOPHAGRAM 3. Insomnia, unspecified type - ICD9: 780.52, ICD10: G47.00 - MELATONIN 1 MG SUBLINGUAL TABLET 4. Stress - ICD9: V62.89, ICD10: F43.9 - hoping the lexapro will help her with reducing the stress. 5. Atrial fibrillation, unspecified type (HCC) - ICD9: 427.31, ICD10: I48.91 We are working with cardiology to have this streamlined 6. Numbness and tingling - ICD9: 782.0, ICD10: R20.0, R20.2 In different places she Is having different things 7. Vitamin B12 deficiency - ICD9: 266.2, ICD10: E53.8 - VITAMIN B12 8. Weight gain - ICD9: 783.1, ICD10: R63.5 - THYROID STIMULATING HORMONE 9. Fatigue, unspecified type - ICD9: 780.79, ICD10: R53.83 - THYROID STIMULATING HORMONE 10. Iron deficiency - ICD9: 280.9, ICD10: E61.1 - IRON AND TIBC - FERRITIN Moon Teixeira MD documented in this encounterC[facility]08-13-[facility]24 NoteHNO ID: [id number] Author: MOON TEIXEIRA MD Service: ? Author Type: Physician Type: Progress Notes Filed: 04/05/2024 11:26 Note Text: Reason for Visit Patient presents with: Establish Care: ER 04/05/24 AM Cady Berumen is a 78 year old female who presents here today for Above Complaints.. Health Maintenance Spirometry Anxiety Screening BP Controlled (<130/80) Advance Directive Discussion HPI This is a very pleasant 78-year-old with a past medical history of paroxysmal A-fib, essential hypertension, asthma, irritable bowel, allergic rhinitis, severe episode of recurrent major depressive disorder. Paroxysmal Afib: she first was diagnosed with afib after covid shots. Since then she has had palpitations on and off. on Eliquis and takes metoprolol as needed as her heart rate goes down to 44. She has a loop recorder from [facility]. She will follow up on May [address] Donaldson. Very stressed. She is going to complete moving the house end of the month. She drinks 2/3 cups of decaf green tea. She has been having swallowing issues, has trouble swallowing dry foods very occasionally. A lot of grief recently, with of and caregiver stress, with for many years and now with daughter with recent diagnosis of POTS. No problem-specific Assessment AND Plan notes found for this encounter. 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 Cebul repeat is not recommended 1990: NEUROPLASTY AND/TRANSPOS MEDIAN NRV CARPAL TUNNE Comment: Carpal tunnel decomp-bilateral 08-21-05: PAST SURGICAL HISTORY OF Comment: EXCISION CYST LEFT MIDDLE FINGER No date: PAST SURGICAL HISTORY OF Comment: right foot surgery- mortons neuroma 2014: PAST SURGICAL HISTORY OF Comment: left foot vein ablation 1961: TONSILLECTOMY PRIMARY/SECONDARY AGE 12/> FAMILY HISTORY Problem Relation Age of Onset Heart Father Allergies Sister Breast Cancer Sister age of 50's with diagnosis Prostate Cancer Brother Social History Tobacco Use Smoking status: Never Smokeless tobacco: Never Vaping Use Vaping Use: Never used Substance Use Topics Alcohol use: Not Currently Drug use: No Past medical history, appointments, medications, allergies reviewed. Pertinent Lab/Diagnostic Studies are reviewed and discussed today Current Outpatient Medications: baclofen 10 mg tablet rosuvastatin (CRESTOR) 5 mg tablet Boswellia cecile extract (BOSWELLIA CECILE XT, BULK,) 70 % powd prasterone, DHEA, (DHEA ORAL) metoprolol tartrate, short acting, (LOPRESSOR) 25 mg tablet timolol maleate (TIMOPTIC) 0.5 % ophthalmic solution warfarin (COUMADIN) 5 mg tablet ALPHA LIPOIC ACID ORAL Cholecalciferol, Vitamin D3, 50 mcg (2,000 unit) cap COQ10, UBIQUINOL, ORAL latanoprost (XALATAN) 0.005 % ophthalmic solution Review of Systems CONSTITUTIONAL: No fevers, chills night sweats, unintended weight loss CARDIOVASCULAR: No chest pain, dyspnea, palpitations, orthopnea, PND, ankle edema. PULM: No dyspnea, unexplained cough. GI: No dysphagia/odynophagia, problematic reflux, constipation, diarrhea, changes in stool habits, hematochezia, melena. : No new urinary complaints, including dysuria, gross hematuria or pyuria. NEURO: No new balance problems, peripheral weakness/paresthesias or numbness of concern. Physical Exam BP 100/64 Pulse 62 Resp 16 General appearance: Well appearing, alert, in no acute distress, well nourished. Skin: Skin color, texture, turgor normal, no suspicious rashes or lesions Head: Normocephalic, no masses, lesions, tenderness or abnormalities Eyes: Anicteric sclera. Pupils are equally round and reactive to light. Extraocular movements are intact. Lungs: Lungs clear to auscultation. No wheezing, rhonchi, rales Heart: RRR without murmur, gallop, or rubs. Extremities: No deformities, edema, skin discoloration, clubbing or cyanosis. Good capillary refill. ASSESSMENT/PLAN: 1. Dysphagia, unspecified type - ICD9: 787.20, ICD10: R13.10 (primary diagnosis) Would benefit from checking - XR ESOPHAGRAM 2. Choking episode - (more content not included)...[facility] 03-21-2024 Telephone encounter Note* Telephone Encounter - Lauren Bui RN - 03/21/2024 12:11 PM EDT Patient calls and notified of results and providers instructions. Patient verbalizes understanding. Lauren Bui RN [facility]07-29-2024 Miscellaneous Notes* Telephone Encounter - Lauren Bui RN - 03/21/2024 12:11 PM EDT Patient calls and notified of results and providers instructions. Patient verbalizes understanding. Lauren Bui RN * Telephone Encounter - Paul Philip LPN - 03/21/2024 9:36 AM EDT Left message for pt to contact office. Paul Philip LPN * Telephone Encounter - Nirali Almanza PA-C - 03/21/2024 9:22 AM EDT Let patient know that her Carotid US is overall normal for 78yo. Only mild disease noted. documented in this encounterC[facility]07-29-2024 Telephone encounter Note * Telephone Encounter - Paul Philip LPN - 03/21/2024 9:36 AM EDT Left message for pt to contact office. Paul Philip LPN [facility]07-29-[facility] Telephone encounter Note* Telephone Encounter - Nirali Almanza PA-C - 03/21/2024 9:22 AM EDT Let patient know that her Carotid US is overall normal for 78yo. Only mild disease noted. [facility]07-[facility] Telephone encounter Note* Telephone Encounter - Elizabeth Gonzalez RN - 03/15/2024 8:43 AM EDT Patient was transferred to this nurse with concerns of having heart failure. Reports she is feelingmore tired lately, but admits she is not sleeping well. Reports she had a ECHO done recently, and was not told if it showed that she had CHF. Advised per 02-22-24 telephone encounter provider advised "no significant CHF noted on echo." Patient states she feels better just knowing this. Reports her in February, and her dog in November, and she lives in an apartment, that sheis moving out of in March, and moving back to [place]. We discussed these stressors for a while, and patient states talking with this nurse has made her feel better and the anxiety is less now. Reports she has an appt with Dr. Bowman, cardiology in Apr, and also with Dr. Shirley, to check her loop recorder/pacemaker. Reports the loop recorder records her heart activity 16/03 and sends a report to Dr. Shirley. Patient reports she saw [facility] a couple months ago and talked about heart failure with the Tassel Clipper there, and Tassel Clipper felt patient was fine. Reports she has an appt with Dr. Teixeira 04-05-24. Patient gave her BP readings: 132/80 (57), 102/79 (89), 94/73, 100/80, 99/77, 96/80, 94/73. Reportssilvanae has metoprolol to take only if she is in a-fib, and her BP monitor tells her if she's having anirregular rhythm. Reports the night before last she was in a-fib and took a metoprolol that night, and the a-fib resolved. Advised patient low BP is when BP < 90/60 with symptoms of dizziness, lightheaded, weakness uponstanding or fainting. Patient reports she is feeling fine now, anxiety has gone down, and she is less worried about CHF. Patient agreeable to call back to nurse with any questions or concerns, and agreeable to call squadif any symptoms/signs of low BP. [facility]07-[facility] Miscellaneous Notes* Telephone Encounter - Elizabeth Gonzalez RN - 03/15/2024 8:43 AM EDT Patient was transferred to this nurse with concerns of having heart failure. Reports she is feelingmore tired lately, but admits she is not sleeping well. Reports she had a ECHO done recently, and was not told if it showed that she had CHF. Advised per 02-22-24 telephone encounter provider advised "no significant CHF noted on echo." Patient states she feels better just knowing this. Reports her in February, and her dog in November, and she lives in an apartment, that sheis moving out of in March, and moving back to [place]. We discussed these stressors for a while, and patient states talking with this nurse has made her feel better and the anxiety is less now. Reports she has an appt with Dr. Bowman, cardiology in Apr, and also with Dr. Shirley, to check her loop recorder/pacemaker. Reports the loop recorder records her heart activity 16/03 and sends a report to Dr. Shirley. Patient reports she saw [facility] a couple months ago and talked about heart failure with the Tassel Clipper there, and Tassel Clipper felt patient was fine. Reports she has an appt with Dr. Teixeira 04-05-24. Patient gave her BP readings: 132/80 (57), 102/79 (89), 94/73, 100/80, 99/77, 96/80, 94/73. Reportssilvanae has metoprolol to take only if she is in a-fib, and her BP monitor tells her if she's having anirregular rhythm. Reports the night before last she was in a-fib and took a metoprolol that night, and the a-fib resolved. Advised patient low BP is when BP < 90/60 with symptoms of dizziness, lightheaded, weakness uponstanding or fainting. Patient reports she is feeling fine now, anxiety has gone down, and she is less worried about CHF. Patient agreeable to call back to nurse with any questions or concerns, and agreeable to call squadif any symptoms/signs of low BP. documented in this encounterC[facility]07-01-2024 Telephone encounter Note * Telephone Encounter - Nydia Encarnacion RN - 02/22/2024 4:59 PM EDT Patient notified of results and provider's instructions. Patient verbalizes understanding. Nydia Encarnacion RN [facility]07-01-2024 Miscellaneous Notes* Telephone Encounter - Nydia Encarnacion RN - 02/22/2024 4:59 PM EDT Patient notified of results and provider's instructions. Patient verbalizes understanding. Nydia Encarnacion RN * Telephone Encounter - Paul Philip LPN - 02/22/2024 1:57 PM EDT Left message for pt to contact office. Paul Philip LPN * Telephone Encounter - Nirali Almanza PA-C - 02/22/2024 1:17 PM EDT Let patient know that overall echo is okay. Mild-mod valve disease. Mildly worse than previous echo. No significant CHF noted on echo. Continue with follow up with cardio. Nirali Almanza PA-C documented in this encounterC[facility]07-[facility]-2024 Telephone encounter Note * Telephone Encounter - Paul Philip LPN - 02/22/2024 1:57 PM EDT Left message for pt to contact office. Paul Philip LPN [facility]07-01-2024 Telephone encounter Note* Telephone Encounter - Nirali Almanza PA-C - 02/22/2024 1:17 PM EDT Let patient know that overall echo is okay. Mild-mod valve disease. Mildly worse than previous echo. No significant CHF noted on echo. Continue with follow up with cardio. Nirali Almanza PA-C [facility]06-20-[facility] Telephone encounter Note* Telephone Encounter - Esha Santiago LPN - 02/11/2024 8:56 AM EDT Spoke with pt and information listed below given. Pt verbalizes understanding. Esha Santiago LPN [facility]06-20-2024 Miscellaneous Notes* Telephone Encounter - Esha Santiago LPN - 02/11/2024 8:56 AM EDT Spoke with pt and information listed below given. Pt verbalizes understanding. Esha Santiago LPN * Telephone Encounter - Nirali Almanza PA-C - 02/11/2024 8:40 AM EDT Labs and urine look okay. BUN elevated which likely means she is mildly dehydrated. Cholesterol to be addressed/discussed with PCP at next visit. [facility] in [facility] Telephone encounter Note * Telephone Encounter - Nirali Almanza PA-C - 02/11/2024 8:40 AM EDT Labs and urine look okay. BUN elevated which likely means she is mildly dehydrated. Cholesterol to be addressed/discussed with PCP at next visit. [facility]06-[facility] History of Present illness Narrative* Nirali Almanza PA-C - 02/10/2024 1:34 PM EDT Chief Complaint Patient presents with: Headache HPI Cady Berumen is a 78 year old female who presents here today for neck pain. Patient has had neck pain for the past week. Pain with ROM. No fevers Has been under more stress. last year. She has moved and is moving back to [place] soon. Her dog recently . Patient has been struggling with shortness of breath. Concerned for heart failure. Hx of a. Fib. When she stands up she feels like she may pass out. Past medical history, appointments, medications, allergies reviewed. Previous Medical History PAST MEDICAL HISTORY Diagnosis Date A-fib (HCC) February 2021 Asthma Atrial tachycardia (HCC) 10/14/2018 BPPV (benign paroxysmal positional vertigo) 10/30/2014 Degenerative disc disease 08/10/2014 Mild Degenerative disc disease C6-C7 Mild Anterolisthesis C7-T-1`- See scanned document Essential hypertension, benign Fibromyalgia Glaucoma, open angle Hypothyroidism 10/14/2018 Varicose veins 08/25/2014 Varicose veins of other sites Venous stasis ulcer of ankle 07/18/2013 Vestibular neuronitis Vitamin D deficiency 09/20/2013 Previous Surgical History PAST SURGICAL HISTORY Procedure Laterality Date ARTHRP TEMPOROMANDIBULAR JOINT W/WO AUTOGRAFT 1987 CATARACT SURGERY, COMPLEX 2005 Rt & Lt COLONOSCOPY FLX DX W/COLLJ SPEC WHEN PFRMD 11/08/2010 Colonoscopy COLONOSCOPY FLX DX W/COLLJ SPEC WHEN PFRMD 08/23/2019 [facility] Cebul repeat is not recommended NEUROPLASTY &/TRANSPOS MEDIAN NRV CARPAL TUNNE 1990 Carpal tunnel decomp-bilateral PAST SURGICAL HISTORY OF 08-21-05 EXCISION CYST LEFT MIDDLE FINGER PAST SURGICAL HISTORY OF right foot surgery- mortons neuroma PAST SURGICAL HISTORY OF 2013 left foot vein ablation TONSILLECTOMY PRIMARY/SECONDARY AGE 12/> 1962 Family History FAMILY HISTORY Problem Relation Age of Onset Heart Father Allergies Sister Breast Cancer Sister age of 50's with diagnosis Prostate Cancer Brother Patient Allergies ALLERGIES Allergen Reactions Fragrances Cough, Shortness of Breath Benzodiazepines Mental Status Change Pt sees colors and laughing Cats Itching, Shortness of Breath Eventual wheezing Dust Mites Other: See Comments Positive allergy test Grass Pollen-Timoth* Itching Nasal congestion Mold Itching Nasal congestion Seasonal Allergies Cough Sulfa (Sulfonamide * Itching Trees Itching Nasal congestion Valium [Diazepam] Intolerance Laughing hysterically, ultra sensitive Zithromax [Azithrom* Other: See Comments nausea Current Medications Current Outpatient Medications on File Prior to Visit Medication Sig Boswellia cecile extract (BOSWELLIA CECILE XT, BULK,) 70 % powd 1 Each two times a day. metoprolol tartrate, short acting, (LOPRESSOR) 25 mg tablet Take 25 mg by mouth twice daily. Takes as needed for rapid HR timolol maleate (TIMOPTIC) 0.5 % ophthalmic solution Use 1 Drop in both eyes twice daily. warfarin (COUMADIN) 5 mg tablet Take 1 tablet by mouth daily except 7.5mg on ( [facility]) (Patient taking differently: 7.5 mg daily) ALPHA LIPOIC ACID ORAL Take by mouth. Cholecalciferol, Vitamin D3, 50 mcg (2,000 unit) cap Take 2 capsules by mouth once daily. COQ10, UBIQUINOL, ORAL Take 30 mg by mouth. latanoprost (XALATAN) 0.005 % ophthalmic solution Use 1 Drop in both eyes daily at bedtime. rosuvastatin (CRESTOR) 5 mg tablet Take 1 tablet by mouth daily at bedtime. (Patient not taking: Reported on 02/10/2024) prasterone, DHEA, (DHEA ORAL) Take by mouth. 0.15 mg (Patient not taking: Reported on 02/10/2024) Ciclopirox (LOPROX) 8 % solution Apply to affected area daily at bedtime. (Patient not taking: Reported on 02/10/2024) No current facility-administered medications on file prior to visit. Social History Social History Tobacco Use Smoking status: Never Smokeless tobacco: Never Vaping Use Vaping Use: Never used Substance Use Topics Alcohol use: Not Currently Drug use: No Review of Symptoms REVIEW OF SYSTEMS See hpi EXAM: BP 118/80 (BP Site: Right Arm, BP Position: Sitting, BP Cuff Size: Regular Adult) Pulse (!) 56 Temp 36.2 C (97.2 F) Resp 16 Wt 70.8 kg (156 lb) BMI 25.96 kg/m General Appearance: Well appearing, alert, in no acute distress, well-hydrated, well nourished.. Neck: Supple, no adenopathy; thyroid symmetric, normal size, no bruits. Lungs: Lungs clear to auscultation. No wheezing, rhonchi, rales.. Heart: RRR without murmur, gallop, or rubs. No ectopy. Extremities: No deformities, edema, skin discoloration, clubbing or cyanosis. Good capillary refill. . Peripheral Pulses: Normal. Health Maintenance List Spirometry Never done BP Controlled (<130/80) Never done Advance Directive Discussion due on 08/24/2023 DTaP,Tdap,Td Vaccine(1 - Tdap) due on 06/09/2024 RSV Vaccine(1 - 1-dose 60+ series) due on 06/22/2024 Annual PCP Team Chronic Disease Visit due on 07/15/2024 Diabetes Screening due on 07/15/2026 Bone Density Screening Completed Influenza Vaccine Completed Hepatitis C Screening Completed Pneumococcal Vaccine: 65+ Completed Mammogram Screening Discontinued Colorectal Cancer Screening Discontinued Shingrix Vaccine Discontinued Covid-19 Vaccine Discontinued Data reviewed N/a ASSESSMENT/PLAN: 1. Neck pain - ICD9: 723.1, ICD10: M54.2 (primary diagnosis) Suspect strain. Patient interested in dry needling as acupuncture worked for her in the past. - COMPLETE BLOOD COUNT AND DIFFERENTIAL - COMPREHENSIVE METABOLIC PANEL - CONSULT TO PHYSICAL THERAPY 2. CHE (dyspnea on exertion) - ICD9: 786.09, ICD10: R06.09 Patient with known a. Fib. Reports worsening CHE. States she told cardio but no further eval. With hx and symptoms warrants ECHO. We discussed stressed testing but with patient stating she is expiring a. Fib at times, I would prefer cardio input on stress testing. 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 - COMPLETE BLOOD COUNT AND DIFFERENTIAL - COMPREHENSIVE METABOLIC PANEL - ECHO 3. Near syncope - ICD9: 780.2, ICD10: R55 As above - COMPLETE BLOOD COUNT AND DIFFERENTIAL - COMPREHENSIVE METABOLIC PANEL - US CAROTID [facility]ERIES [facility] - ECHO 4. Lightheadedness - ICD9: 780.4, ICD10: R42 See above. - COMPLETE BLOOD COUNT AND DIFFERENTIAL - COMPREHENSIVE METABOLIC PANEL - US CAROTID [facility] - ECHO 5. Essential hypertension - ICD9: 401.9, ICD10: I10 - Controlled - Continue current medications - Recommend home blood pressure monitoring, to bring results to next visit - Encouraged sodium restriction, DASH or Mediterranean diet - Recommend regular aerobic exercise - CONSULT TO CARDIOLOGY - URINALYSIS, WITH MICROSCOPIC - LIPID PANEL, NONFASTING 6. Paroxysmal atrial fibrillation (HCC) - ICD9: 427.31, ICD10: I48.0 - CONSULT TO CARDIOLOGY - LIPID PANEL, NONFASTING 7. Paroxysmal atrial tachycardia (HCC) - ICD9: 427.0, ICD10: I47.19 - LIPID PANEL, NONFASTING Patient advised to keep upcoming appt with PCP Patient advised to follow up with cardio. Nirali Almanza PA-C documented in this encounterC[facility]06-[facility] Telephone encounter Note * Telephone Encounter - Nydia Encarnacion RN - 02/10/2024 10:47 AM EDT Patient call in for headache off and on x 4- 5 months. Nurse Triage assessment completed with protocol recommending for disposition of See PCP in 24 hours. Care advice reviewed with patient, patient stated understanding. Patient advised to contact office or seek evaluation in urgent care or ER if symptoms persist or gets worse. Reason for Disposition [1] MODERATE headache (e.g., interferes with normal activities) AND [2] present > 24 hours AND [3] unexplained (Exceptions: analgesics not tried, typical migraine, or headache part of viral illness) Answer Assessment - Initial Assessment Questions 1. LOCATION: Left side lower part of skull with shooting pain going into head. 2. ONSET: X 1 week 3. PATTERN: Comes and goes off and on for about 4-5 months 4. SEVERITY: Rates pain 5 out of 10 at worst. 5. RECURRENT SYMPTOM: Off and on x 4-5 months 6. CAUSE: Stress 7. MIGRAINE: Yes, but states that it is not similar. 8. HEAD INJURY: Denies 9. OTHER SYMPTOMS: When she turns head to left, it gets worse; stiff neck on left side; stands up feel like "everything is draining out to her feet"; sleepy at times Protocols used: [id number] [facility]06-[facility]24 Miscellaneous Notes* Telephone Encounter - Nydia Encarnacion RN - 02/10/2024 10:47 AM EDT Patient call in for headache off and on x 4- 5 months. Nurse Triage assessment completed with protocol recommending for disposition of See PCP in 24 hours. Care advice reviewed with patient, patient stated understanding. Patient advised to contact office or seek evaluation in urgent care or ER if symptoms persist or gets worse. Reason for Disposition [1] MODERATE headache (e.g., interferes with normal activities) AND [2] present > 24 hours AND [3] unexplained (Exceptions: analgesics not tried, typical migraine, or headache part of viral illness) Answer Assessment - Initial Assessment Questions 1. LOCATION: Left side lower part of skull with shooting pain going into head. 2. ONSET: X 1 week 3. PATTERN: Comes and goes off and on for about 4-5 months 4. SEVERITY: Rates pain 5 out of 10 at worst. 5. RECURRENT SYMPTOM: Off and on x 4-5 months 6. CAUSE: Stress 7. MIGRAINE: Yes, but states that it is not similar. 8. HEAD INJURY: Denies 9. OTHER SYMPTOMS: When she turns head to left, it gets worse; stiff neck on left side; stands up feel like "everything is draining out to her feet"; sleepy at times Protocols used: [id number] documented in this encounterC[facility]05-23-2024 Telephone encounter Note * Telephone Encounter - Moon Teixeira MD - 01/14/2024 7:37 AM EDT Yes, I can see her and we can talk and see if we are a good match [facility] Work Phone: 1(715) 603-250305-23-2024 Miscellaneous Notes* Telephone Encounter - Moon Teixeira MD - 01/14/2024 7:37 AM EDT Yes, I can see her and we can talk and see if we are a good match * Telephone Encounter - Moon Teixeira MD - 01/14/2024 7:36 AM EDT Yes, I can see her. * Telephone Encounter - Linda Cannon - 01/01/2024 10:54 AM EDT Pt is calling to check if Dr. Teixeira would be willing to see her as a pt when she returns. states she was her husbands doctor before he and would be interested in seeing her. Please let her know. documented in this encounterC[facility]05-23-2024 Telephone encounter Note * Telephone Encounter - Moon Teixeira MD - 01/14/2024 7:36 AM EDT Yes, I can see her. [facility] Telephone encounter Note* Telephone Encounter - Merly Rodriguez - 01/12/2024 10:06 AM EDT Pt called to cancel apt she is moving back to [place] [facility]05-21-[facility] Miscellaneous Notes* Telephone Encounter - Merly Rodriguez - 01/12/2024 10:06 AM EDT Pt called to cancel apt she is moving back to [place] documented in this encounterC[facility]05-10-2024 Telephone encounter Note * Telephone Encounter - Linda Cannon - 01/01/2024 10:54 AM EDT Pt is calling to check if Dr. Teixeira would be willing to see her as a pt when she returns. states she was her husbands doctor before he and would be interested in seeing her. Please let her know. [facility] Work Phone: 1(743) 846-931803-18-2024 Miscellaneous Notes* Telephone Encounter - Belen Robles Ma - 11/09/2023 10:18 AM EDT Please read note below. Willing to start statin. * Telephone Encounter - Elizabeth Dale PA-C - 11/09/2023 9:23 AM EDT Telephone on 11/06/23 HGB A1C BASIC METABOLIC PNL Casey White PA-C * Telephone Encounter - Megan Rodriguez RN - 11/06/2023 11:32 AM EDT Pt called in and reports she has been having dry mouth, dry skin, excessive thirst, and increased urination. She was asking if this could be signs of prediabetes, and I told her yes they are. Pt has an appointment with provider on 12/07/23 and was asking about if she should have any labs drawn before this. Pt was also asking about her Lipid panel and went over providers message,"Your total cholesterol is in good range, LDL remains borderline. 1/3 people with your cholesterol results would be likely to have a heart attack or stroke. I would still recommend statin therapy.". Pt states provider never did anything about putting her on a Statin, I let her know the main side effect was muscle aches. She was will to start a Statin if provider would put this in. Pt was also reporting she sometimesgets numbness in her L hand mainly, but sometimes in her R hand as well. She states she sees Cardiology this coming Thursday. Please call and advise Pt. documented in this encounterC[facility]12-13-2023 Miscellaneous Notes* Telephone Encounter - Linda Schrader LPCC - 08/05/2023 3:11 PM EST Behavioral Health Social Work Progress Note Patient identified for [facility] from: PCP Reason for referral: [facility] Behavioral Health Resources: Psychology - talk therapy [facility] encounter type: Telephone Encounter Attempts to Outreach: 1 attempt Patient Discharged?: No Patient reported that caregiver was able to meet their needs today?: N/A Phone call was placed to patient. Message was left with brief nature of call and requesting a call back. Pt does not have MyChart. Awaiting return call. KINJAL Og-S August 05, 2023 documented in this encounterC[facility]11-27-2023 Telephone encounter Note * Telephone Encounter - Celena Reis RN - 07/20/2023 4:50 PM EST Spoke with patient. Given message from provider's office. Patient verbalizes understanding. She says she will consider statin therapy but does not remember discussing this in the past. Celena Reis RN [facility]11-27-[facility] Miscellaneous Notes* Telephone Encounter - Celena Reis RN - 07/20/2023 4:50 PM EST Spoke with patient. Given message from provider's office. Patient verbalizes understanding. She says she will consider statin therapy but does not remember discussing this in the past. Celena Reis RN * Telephone Encounter - Gigi Rouse LPN - 07/20/2023 12:49 PM EST Left message for pt to return call to office. Gigi Rouse * Telephone Encounter - Gigi Rouse LPN - 07/20/2023 12:48 PM EST ----- Message from Elizabeth Dale PA-C sent at 07/18/2023 5:00 PM EST ----- Patient has not viewed result message. Please review with her. Thanks, ADRIÁN Marino, Your total cholesterol is in good range, LDL remains borderline. 1/3 people with your cholesterol results would be likely to have a heart attack or stroke. I would still recommend statin therapy. The 10-year ASCVD risk score (Katie KEITH, et al., 2019) is: 29.8% Values used to calculate the score: Age: 77 years Sex: Female Is Non- : No Diabetic: No Tobacco smoker: No Systolic Blood Pressure: 140 mmHg Is BP treated: Yes HDL Cholesterol: 52 mg/dL Total Cholesterol: 193 mg/dL Happy Thanksgiving! If you have questions, either [employer] message us or call the office at [phone] and ask for me. Best regards, Casey Dale PA-C documented in this encounterC[facility]11-27-2023 Telephone encounter Note * Telephone Encounter - Gigi Rouse LPN - 07/20/2023 12:49 PM EST Left message for pt to return call to office. Gigi Rouse [facility]11-27-2023 Telephone encounter Note* Telephone Encounter - Gigi Rouse LPN - 07/20/2023 12:48 PM EST ----- Message from Elizabeth Dale PA-C sent at 07/18/2023 5:00 PM EST ----- Patient has not viewed result message. Please review with her. Thanks, ADRIÁN Marino, Your total cholesterol is in good range, LDL remains borderline. 1/3 people with your cholesterol results would be likely to have a heart attack or stroke. I would still recommend statin therapy. The 10-year ASCVD risk score (Katie KEITH, et al., 2019) is: 29.8% Values used to calculate the score: Age: 77 years Sex: Female Is Non- : No Diabetic: No Tobacco smoker: No Systolic Blood Pressure: 140 mmHg Is BP treated: Yes HDL Cholesterol: 52 mg/dL Total Cholesterol: 193 mg/dL Happy Thanksgiving! If you have questions, either [employer] message us or call the office at [phone] and ask for me. Best regards, Casey Dale PA-C [facility]11-22-[facility] History of Present illness Narrative* Errol Tomas RT(R) - 07/15/2023 10:40 AM EST Radiology Service Progress Note PATIENT NAME: Cady Berumen DATE OF SERVICE: July 15, 2023 TIME: 10:40 AM PATIENT IDENTITY VERIFICATION COMPLETED USING TWO (2) IDENTIFIERS: Name and Date of confirmedby patient verbally. FALL SCREENING: Has the patient had 2 falls in the last year or 1 fall with injury or currently using an Ambulatory Assistive Device (Walker, Cane, Wheelchair, Crutches, etc.)? No PATIENT GENDER DATA: Female. status: : No status: NO. PATIENT RELEVANT IMPLANT DATA REVIEWED: Not Applicable RADIOLOGY DEPARTMENT: General X-ray: Exam(s) Completed: Upper Extremity X- Ray(s): Wrist, right PERIPHERAL IV DATA: Not applicable SIGNED BY: RT Abimbola(R) July 15, 2023 10:40 AM documented in this encounterCincinnati [facility] Center11-22-2023 History of Present illness Narrative* Patrizia Willis APRN.ENOC - 07/15/2023 10:02 AM EST SUBJECTIVE Cady Berumen is a 77 year old female here today for acute concern. Chief Complaint Patient presents with: Wrist Pain: Right wrist for about 4 days has been doing some heavy lifting due to a move HPI Cady Berumen is an 77 year old female presents today for wrist pain. Onset was a month or so ago with pain but worse the last 4 days. Has been moving so lifting heavier things. It is localized to right wrist. It does radiate to up the arm some. It is constant, gets worse during the day. It is described as aching. It has been alleviated by nothing, tried ibuprofen and ice and aggravated by use. She is right handed. No significant trauma that patient is aware of. Denies numbness, tingling, weakness. Her medications were reviewed today and her list is now up to date. Medications Current Outpatient Medications Medication Sig Boswellia eccile extract (BOSWELLIA CECILE XT, BULK,) 70 % powd 1 Each two times a day. prasterone, DHEA, (DHEA ORAL) Take by mouth. 0.15 mg Ciclopirox (LOPROX) 8 % solution Apply to affected area daily at bedtime. metoprolol tartrate, short acting, (LOPRESSOR) 25 mg tablet Take 25 mg by mouth twice daily. Takes as needed for rapid HR timolol maleate (TIMOPTIC) 0.5 % ophthalmic solution Use 1 Drop in both eyes twice daily. warfarin (COUMADIN) 5 mg tablet Take 1 tablet by mouth daily except 7.5mg on ( [facility]) (Patient taking differently: 7.5 mg daily) ALPHA LIPOIC ACID ORAL Take by mouth. Cholecalciferol, Vitamin D3, 50 mcg (2,000 unit) cap Take 2 capsules by mouth once daily. COQ10, UBIQUINOL, ORAL Take 30 mg by mouth. latanoprost (XALATAN) 0.005 % ophthalmic solution Use 1 Drop in both eyes daily at bedtime. methylPREDNISolone (MEDROL, ERIC,) 4 mg Dose-Pack Follow dosing instructions, take with food. oxyCODONE-acetaminophen (PERCOCET) 5-325 mg tablet Take 1 tablet by mouth every 8 hours as needed for pain for up to 7 days. No current facility-administered medications for this visit. ALLERGIES Allergen Reactions Fragrances Cough, Shortness of Breath Benzodiazepines Mental Status Change Pt sees colors and laughing Cats Itching, Shortness of Breath Eventual wheezing Dust Mites Other: See Comments Positive allergy test Grass Pollen-Timoth* Itching Nasal congestion Mold Itching Nasal congestion Seasonal Allergies Cough Sulfa (Sulfonamide * Itching Trees Itching Nasal congestion Valium [Diazepam] Intolerance Laughing hysterically, ultra sensitive Zithromax [Azithrom* Other: See Comments nausea ACTIVE PROBLEM LIST Sob (Shortness of Breath) - 12/23/2021 Comment: 12/18/2021 Hiren Warren CH: Exercise stress test Lopez protocol 38 seconds stage I, 38 seconds stage II achieving MHR 122, 84% predicted, 4 METS. Functional capacity decreased. Nuclear imaging demonstrated uniform tracer uptake, no ischemia. LVEF 77% Essential Hypertension Paroxysmal Atrial Fibrillation ([facility]) - 02/04/2019 Comment: 03/13/21 24-hour Holter monitor: Predominantly sinus rhythm/sinus arrhythmia with rate 45 to 138 bpm. 13 atrial runs longest 5 beats at 97 bpm likely ectopic atrial, fastest was 3 beats at 136 bpm. 29.5-minute course of paroxysmal atrial fibrillation with a rate 54-1 38. Rare ectopics. 03/13/2020 24-hour Holter monitor: Supraventricular ectopy 0.2%, atrial fibrillation 2.9%, average HR 55, maximum HR 138, minimum HR 45. 10/14/2018 echocardiogram: LV size NL, LV SF NL, EF 55%. No evidence for diastolic dysfunction. Mild diffuse MV thickening, 1+ eccentric MVI Paroxysmal Atrial Tachycardia - 11/29/2018 Comment: 12/24/2018: Home BP Cuff Validated. 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 Sprain of Sacroiliac Joint - 11/06/2015 Irritable Bowel Syndrome With Both Constipation and Diarrhea - 11/06/2015 Vertigo of Central Origin - 12/11/2014 Peripheral Vertigo, Unspecified - 12/11/2014 Bppv (Benign Paroxysmal Positional Vertigo) - 10/30/2014 Varicose Veins of Right Lower Extremity - 08/25/2014 Nocturia - 03/01/2014 Hesitancy of Micturition - 03/01/2014 Vitamin D Deficiency - 09/20/2013 Generalized Osteoarthrosis, Unspecified Site - 11/23/2006 Allergic Rhinitis, Cause Unspecified - 06/19/2004 Social History Tobacco Use Smoking status: Never Smokeless tobacco: Never Vaping Use Vaping Use: Never used Substance Use Topics Alcohol use: Not Currently Drug use: No Review of Systems Respiratory: Negative. Cardiovascular: Negative. Musculoskeletal: Positive for arthralgias. Negative for joint swelling. OBJECTIVE BP 140/88 Pulse 70 Wt 154 lb (69.9kg) SpO2 91% Physical Exam Vitals and nursing note reviewed. Constitutional: General: She is awake. She is not in acute distress. Appearance: Normal appearance. She is well-developed and well-groomed. She is not ill-appearing, toxic-appearing or diaphoretic. HENT: Head: Normocephalic. Right Ear: External ear normal. Left Ear: External ear normal. Nose: Nose normal. Eyes: General: Vision grossly intact. Conjunctiva/sclera: Conjunctivae normal. Pupils: Pupils are equal, round, and reactive to light. Neck: Vascular: No JVD. Trachea: Trachea normal. Cardiovascular: Pulses: Normal pulses. Pulmonary: Effort: Pulmonary effort is normal. No accessory muscle usage, prolonged expiration or respiratory distress. Musculoskeletal: Right wrist: Tenderness (to the wrist laterally) present. No swelling, deformity, effusion, lacerations, snuff box tenderness or crepitus. Decreased range of motion. Normal pulse. Cervical back: Neck supple. Skin: General: Skin is warm and dry. Capillary Refill: Capillary refill takes less than 2 seconds. Neurological: General: No focal deficit present. Mental Status: She is alert and oriented to person, place, and time. Mental status is at baseline. Psychiatric: Attention and Perception: Attention and perception normal. Mood and Affect: Mood and affect normal. Speech: Speech normal. Behavior: Behavior normal. Behavior is cooperative. Thought Content: Thought content normal. Cognition and Memory: Cognition and memory normal. Judgment: Judgment normal. ASSESSMENT/PLAN: 1. Right wrist pain - ICD9: 719.43, ICD10: M25.531 Since no major injuring event and she has been over using this with moving a tendonitis is suspected. She has had prior fractures from minor injuries so we can check an xray to ensure no minor fracturing. Discussed rest, ice, compression, elevation. Medrol dose pack to help with inflammation and can use percocet PRN (does not tolerate tramadol or norco). - XR WRIST GENERAL 3V PA/LAT/OBL RIGHT - METHYLPREDNISOLONE 4 MG TABLETS IN A DOSE PACK - OXYCODONE-ACETAMINOPHEN 5 MG-325 MG TABLET PDMP website checked and validated. All prescriptions have been APPROPRIATELY filled. No suspiciousactivity was identified. 07/15/2023 by Patrizia Willis APRN.CNP Portions of this note have been entered by ancillary staff. I have reviewed and when necessary edited, so that they are an adequate record of my encounter with this patient Please note that parts of this document were created using voice recognition software and therefore may contain grammatical errors. Patient verbalizes understanding of instructions from today's visit and in agreement with treatmentplan. Questions answered. Agrees to call the office if questions, concerns of issues with acute symptoms not improving or if they worsen. See diagnoses and orders for additional plan(s). Allergies and medications were reviewed, list was updated, and refills given if needed. Past medical, surgical, social, and family history reviewed and updated as appropriate. Encouraged proper diet & exercise as well as compliance with taking medications. Age- appropriate health preventative measures were discussed. Return if symptoms worsen or fail to improve, for Keep next scheduled appointment.. Patrizia Willis APRN-ENOC documented [facility] Discharge summary Author Ousmane Montero [facility] June 30, 2023 4:53pm Note Date/Time June 30, 2023 4 :53pm [facility] Physical Therapy [facility] [address] [place] [address]. [address] [place] [address] / REHABILITATION SERVICES DISCHARGE SUMMARY MR#: [id number] Acct: [id number] Name: CADY BERUMEN Rep #: [id number] : 1945 77 From: Ousmane Montero DPT, OCS, CSCS Referring DrLonnie: JEANNIE Pires Status: REG RCR Insurance: [employer] SELF PAY INSURANCE Patient Information Patient Information: CADY KINGCHER was seen in my office for initial evaluation on 05/05/23. The following Plan of Care was established for this patient: POC Established Initial Frequency: 2x /Week Initial Duration: 4-6 Weeks Anticipated Interventions Patient/Client Instruction: Educate patient on: Condition and Plan of Care For the Purpose of:: To improve muscle performance and motor function, To increase tolerance to activity/condition/position and To improve gait and locomotor functions Therapeutic Exercise to Include: Strength training, Balance training, Postural training and Gait and locomotor training For the Purpose of:: To increase tolerance to activity/condition/position, To improve ability of physical actions for home/community/work/leisure, To improve gait and locomotor functions and To improve safety with gait Last Seen Last Seen: This patient was last seen in our office 05/12/23. Pertinent comments regardingtheir Physical therapy will appear below: Pt seen 3 visits of POC and did not attend any further visits. At this point, it has been over 6 weeks and I will discontinue due to nonattendance At this point I will be discontinuing this patient from physical therapy. I would be happy to see this patient again in the future if found appropriate by the physician. Thank you! Ousmane Montero, KATTY, OCS, CSCS Balance/Gait/Functional tests Balance/Special Test Scores Functional Gait Assessment Score: 23 % Disability: 23.3400 CATSIB Score (Max score 120 seconds): 120 Dizziness Score: 34 <Electronically signed by Ousmane Montero DPT, OCS, CSCS> 06/30/23 1653 CC: JEANNIE Piers ~ EBG Signed [facility] Work Phone: [phone]) 719-924310-17-2023 Miscellaneous Notes* Telephone Encounter - Linda Schrader LPCC - 06/09/2023 4:28 PM EDT Behavioral Health Social Work Progress Note Patient identified for [facility] from: PCP Reason for referral: Resources [facility] encounter type: Telephone Encounter Attempts to Outreach: 1 attempt Patient Discharged?: No Patient reported that caregiver was able to meet their needs today?: N/A Phone call placed today, neither number listed is a working number. Initial outreach also halle Gonzalez sending list of in network providers with insurance. KINJAL Og-S June 09, 2023 documented in this encounterC[facility]10-17-[facility] History of Present illness Narrative* Elizabeth Dale PA-C - 06/09/2023 2:00 PM EDT 77 year old female with c/o here for follow Dog 12/25/2022, 02/27/2023. Moved to [place] in to her dream home. Very peacefuland beautiful. Had christianson offer from [employer]. Adjusting to not being a caregiver constantly. Doing yoga and vestibular program with parkinson's support group. Essential hypertension (primary encounter diagnosis) Paroxysmal atrial fibrillation (hcc) Paroxysmal atrial tachycardia Current medications: Metoprolol tartrate 25mg twice a day Warfarin per [facility] Afib comes and goes. Only time it bothers if HR > 70, gets sensation in throat No chest pain, weakness, lightheadedness. No swelling. Seeing Dr. Arthur for venous issue,s Hypothyroidism Current medication: None Dulse flakes for iodine, feels it's helping Taking as directed on an empty stomach? N/a. Thyroid pain: No. Mass effect: No. Change in energy level/ fatigue? No. Sleep disturbance ? trouble due to mourning and loss. Temperature Intolerance: cold always, hot No. Change in bowel habits? No. If yes: Daily smoothies with flax seed Weight changes? 5lb weight loss per diet changes. Change in hair or skin? No. If yes: Other symptoms: TSH Date Value 10/22/2022 3.320 mIU/L 08/26/2021 2.800 uU/mL 09/16/2013 4.480 uU/mL ) Varicose veins of left lower extremity with pain Patient has appointment to see Dr. Arthur again, contemplating possible procedures. Continues to wear support hose. Mild asthma without complication, unspecified whether persistent No recent recurrence or complications. Severe episode of recurrent major depressive disorder, without psychotic features (hcc) Patient has been in and out of therapy in the past. 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 Does seem to be having fun in her new duplex, engaging in exercise with [employer] and yoga, meeting new friends, living in town where she has access to multiple resources. Overall feels that her life is positive currently even though she is still grieving. 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 She is currently attending a vestibular group for people with Parkinson's [facility]. She feels like this is possibly going to be good solution and helpful. HISTORIES FAMILY HISTORY Problem Relation Age of Onset Heart Father Allergies Sister Breast Cancer Sister age of 50's with diagnosis Prostate Cancer Brother PAST MEDICAL HISTORY Diagnosis Date A-fib ([facility]) February 2021 Asthma Atrial tachycardia ([facility]) 10/14/2018 BPPV (benign paroxysmal positional vertigo) 10/30/2014 Degenerative disc disease 08/10/2014 Mild Degenerative disc disease C6-C7 Mild Anterolisthesis C7-T-1`- See scanned document Essential hypertension, benign Fibromyalgia Glaucoma, open angle Hypothyroidism 10/14/2018 Varicose veins 08/25/2014 Varicose veins of other sites Venous stasis ulcer of ankle 07/18/2013 Vestibular neuronitis Vitamin D deficiency 09/20/2013 PAST SURGICAL HISTORY Procedure Laterality Date ARTHRP TEMPOROMANDIBULAR JOINT W/WO AUTOGRAFT 1988 CATARACT SURGERY, COMPLEX 2005 Rt & Lt COLONOSCOPY FLX DX W/COLLJ SPEC WHEN PFRMD 11/08/2010 Colonoscopy COLONOSCOPY FLX DX W/COLLJ SPEC WHEN PFRMD 08/23/2019 [facility] Cebul repeat is not recommended NEUROPLASTY &/TRANSPOS MEDIAN NRV CARPAL TUNNE 1991 Carpal tunnel decomp-bilateral PAST SURGICAL HISTORY OF 08-21-05 EXCISION CYST LEFT MIDDLE FINGER PAST SURGICAL HISTORY OF right foot surgery- mortons neuroma PAST SURGICAL HISTORY OF 2013 left foot vein ablation TONSILLECTOMY PRIMARY/SECONDARY AGE 12/> 1961 Social History Tobacco Use Smoking status: Never Smokeless tobacco: Never Vaping Use Vaping Use: Never used Substance Use Topics Alcohol use: Not Currently Drug use: No ACTIVE PROBLEM LIST Allergic Rhinitis, Cause Unspecified Generalized Osteoarthrosis, Unspecified Site Vitamin D Deficiency Nocturia Hesitancy of Micturition Varicose Veins of Right Lower Extremity Bppv (Benign Paroxysmal Positional Vertigo) Vertigo of Central Origin Peripheral Vertigo, Unspecified Sprain of Sacroiliac Joint Irritable Bowel Syndrome With Both Constipation and Diarrhea Vestibular Neuronitis of Right Ear Varicose Veins of Left Lower Extremity With Pain Asthma Facet Arthritis of Cervical Region Paroxysmal Atrial Tachycardia Severe Episode of Recurrent Major Depressive Disorder, Without Psychotic Features (Hcc) Paroxysmal Atrial Fibrillation (Hcc) Essential Hypertension Sob (Shortness of Breath) Current Outpatient Medications Medication Sig Dispense Refill Ciclopirox (LOPROX) 8 % solution Apply to affected area daily at bedtime. 6.6 mL 5 metoprolol tartrate, short acting, (LOPRESSOR) 25 mg tablet Take 25 mg by mouth twice daily. Takes as needed for rapid HR timolol maleate (TIMOPTIC) 0.5 % ophthalmic solution Use 1 Drop in both eyes twice daily. warfarin (COUMADIN) 5 mg tablet Take 1 tablet by mouth daily except 7.5mg on ( [facility]) (Patient taking differently: Take 8 mg on Sun, 7.5mg all other days or as directed.) 30tablet 11 ALPHA LIPOIC ACID ORAL Take by mouth. Cholecalciferol, Vitamin D3, 50 mcg (2,000 unit) cap Take 2 capsules by mouth once daily. 60 capsule 11 COQ10, UBIQUINOL, ORAL Take 30 mg by mouth. latanoprost (XALATAN) 0.005 % ophthalmic solution Use 1 Drop in both eyes daily at bedtime. No current facility-administered medications for this visit. Spirometry Never done DTaP,Tdap,Td Vaccine(1 - Tdap) Never done RSV Vaccine(1 - 1-dose 60+ series) Never done Shingrix Vaccine(2 of 3) due on 07/30/2013 Advance Directive Discussion due on 08/24/2022 Influenza Vaccine(1) due on 04/24/2023 Covid-19 Vaccine(2022- season) due on 04/24/2023 EXAM: BP 128/70 Pulse 65 Resp 18 Wt 69.9 kg (154 lb) SpO2 98% BMI 25.63 kg/m Pleasant overweight adult woman in no acute distress. Alert and oriented all spheres. Normal affectand cognition. Speech normal. No deficits to learning or comprehension. Skin warm, dry, pink to lips and nailbeds. Normal turgor. Respirations regular and unlabored. HEENT: NCAT. No scleral icterus or conjunctival injection. TM's clear. Nose and oropharynx free from injection or lesion. Oral membranes moist and pink. No cervical lymph nodes. Thyroid non-tender, no masses, or enlargement. Carotids pulses 2+/4+ without bruits. No JVD with HOB at 30 degrees. Chest is normal shape. Lungs are clear to all hooper with good air exchange through out. HRRR without murmur or gallop. No lifts, heaves, or rubs. Extrem: no clubbing or cyanosis. Edema: doughy legs, minimal pitting. Continues with complex and significant varicosities. Extremities are warm and pink with prompt capillary refill. ASSESSMENT/PLAN: 1. Essential hypertension - ICD9: 401.9, ICD10: I10 (primary diagnosis) - Controlled - Recommend home blood pressure monitoring, to bring results to next visit - Encouraged sodium restriction, DASH or Mediterranean diet - Recommend regular aerobic exercise 2. Paroxysmal atrial fibrillation (HCC) - ICD9: 427.31, ICD10: I48.0 3. Paroxysmal atrial tachycardia - ICD9: 427.0, ICD10: I47.19 Currently rhythm is stable, has paroxysmal episodes Follows with [facility] 4. Varicose veins of left lower extremity with pain - ICD9: 454.8, ICD10: I83.812 Patient would like to have something done with her varicosities, has appointment this week with vascular to review. 5. Mild asthma without complication, unspecified whether persistent - ICD9: 493.90, ICD10: J45.909 - Mild intermittent asthma stable - Avoidance of triggers recommended 6. Severe episode of recurrent major depressive disorder, without psychotic features (HCC) - ICD9: 296.33, ICD10: F33.2 Currently stable, feels she is coping with changes, trying to stay positive and taking initiative to stay active in the community which I think is healthy. She would like to participate in counseling possibly even some grief therapy. We discussed hospice as an opportunity for grief therapy, also discussed Dr. Tr Jane years psychologist whom I would highly recommend and we will set up appointment to see him if possible. Orders placed. 7. Vestibular neuronitis of right ear - ICD9: 386.12, ICD10: H81.21 8. Vertigo of central origin - ICD9: 386.2, ICD10: H81.4 Continues intermittent balance issues, no falls. Seems to be adapting 9. Hypothyroidism, acquired - ICD9: 244.9, ICD10: E03.9 Patient would like to have recheck on labs, she is currently on no medications and manages without. 10. Grieving - ICD9: 309.0, ICD10: F43.21 As above Follow-up 6 months 30 minute visit Elizabeth Dale PA-C documented in this [facility] History of Present illness Narrative* Mynor Shirley MD - 03/10/2023 11:15 AM EDT Images from the original note were not included. [facility] [place] Annette Velasquez Department of Cardiovascular Medicine SECTION OF CARDIAC PACING and ELECTROPHYSIOLOGY OUTPATIENT VISIT DATE March 10, 2023 OUTPATIENT VISIT TYPE ESTABLISHED PRIMARY CARE PHYSICIAN: Elizabeth Dale [address] [place] [address] CHIEF COMPLAINT: Occasional palpitations with AF when HR>70s HISTORY OF PRESENT ILLNESS/NURSING INTAKE HISTORY: Ms. Berumen is a 77 year old female who presents today for follow-up visit for paroxysmal atrial fibrillation. She has a past medical history of asthma, atach, hypertension, PRAMOD, COVID 09/15 and paroxysmal atrial fibrillation diagnosed in February 2021 via holter monitor. She has since been treated with BB as needed and coumadin. She noted an increase in palpitations more recently with near syncope and syncope and therefore underwent ILR 12/01/22. Her ILR has since showed episodes of paroxysmal atrial fibrillation with an overall low burden. Sheis symptomatic experiencing palpitations and tightness in her throat with her episodes. She denies any further syncope. She takes Metoprolol as needed for episodes reporting infrequent use. She remains on Coumadin. CHADS2-Vasc Score Breakdown 4 Total Score 1 Female 2 Age >= 75 years old 1 History of hypertension PAST MEDICAL HISTORY Diagnosis Date A-fib (HCC) February 2021 Asthma Atrial tachycardia (HCC) 10/14/2018 BPPV (benign paroxysmal positional vertigo) 10/30/2014 Degenerative disc disease 08/10/2014 Mild Degenerative disc disease C6-C7 Mild Anterolisthesis C7-T-1`- See scanned document Essential hypertension, benign Fibromyalgia Glaucoma, open angle Hypothyroidism 10/14/2018 Varicose veins 08/25/2014 Varicose veins of other sites Venous stasis ulcer of ankle 07/18/2013 Vestibular neuronitis Vitamin D deficiency 09/20/2013 PAST SURGICAL HISTORY Procedure Laterality Date ARTHRP TEMPOROMANDIBULAR JOINT W/WO AUTOGRAFT 1988 CATARACT SURGERY, COMPLEX 2006 Rt & Lt COLONOSCOPY FLX DX W/COLLJ SPEC WHEN PFRMD 11/08/2010 Colonoscopy COLONOSCOPY FLX DX W/COLLJ SPEC WHEN PFRMD 08/23/2019 [facility] Cebul repeat is not recommended NEUROPLASTY &/TRANSPOS MEDIAN NRV CARPAL TUNNE 1990 Carpal tunnel decomp-bilateral PAST SURGICAL HISTORY OF 08-21-05 EXCISION CYST LEFT MIDDLE FINGER PAST SURGICAL HISTORY OF right foot surgery- mortons neuroma PAST SURGICAL HISTORY OF 2013 left foot vein ablation TONSILLECTOMY PRIMARY/SECONDARY AGE 12/> 1962 SOCIAL HISTORY Social History Tobacco Use Smoking status: Never Smokeless tobacco: Never Vaping Use Vaping Use: Never used Substance Use Topics Alcohol use: Not Currently Drug use: No FAMILY HISTORY Problem Relation Age of Onset Heart Father Allergies Sister Breast Cancer Sister age of 50's with diagnosis Prostate Cancer Brother ALLERGIES: ALLERGIES Allergen Reactions Fragrances Cough, Shortness of Breath Benzodiazepines Mental Status Change Pt sees colors and laughing Cats Itching, Shortness of Breath Eventual wheezing Dust Mites Other: See Comments Positive allergy test Grass Pollen-Timoth* Itching Nasal congestion Mold Itching Nasal congestion Seasonal Allergies Cough Sulfa (Sulfonamide * Itching Trees Itching Nasal congestion Valium [Diazepam] Intolerance Laughing hysterically, ultra sensitive Zithromax [Azithrom* Other: See Comments nausea MEDICATIONS: Ciclopirox (LOPROX) 8 % solution Apply to affected area daily at bedtime. metoprolol tartrate, short acting, (LOPRESSOR) 25 mg tablet Take 25 mg by mouth twice daily. Takes as needed for rapid HR timolol maleate (TIMOPTIC) 0.5 % ophthalmic solution Use 1 Drop in both eyes twice daily. warfarin (COUMADIN) 5 mg tablet Take 1 tablet by mouth daily except 7.5mg on ( [facility] (Patient taking differently: Take 8 mg on Sun, 7.5mg all other days or as directed.) ALPHA LIPOIC ACID ORAL Take by mouth. Cholecalciferol, Vitamin D3, 50 mcg (2,000 unit) cap Take 2 capsules by mouth once daily. COQ10, UBIQUINOL, ORAL Take 30 mg by mouth. latanoprost (XALATAN) 0.005 % ophthalmic solution Use 1 Drop in both eyes daily at bedtime. Lindy Acevedo RN PHYSICAL EXAMINATION: BP 136/66 Pulse 63 Ht 165.1 cm (5' 5") Wt 69.9 kg (154 lb) BMI 25.63 kg/m Physical Exam Constitutional: Appearance: She is well-developed. Neck: Vascular: No JVD. Cardiovascular: Rate and Rhythm: Normal rate and regular rhythm. Pulmonary: Effort: Pulmonary effort is normal. Breath sounds: Normal breath sounds. Abdominal: General: Bowel sounds are normal. Palpations: Abdomen is soft. Musculoskeletal: General: Normal range of motion. Cervical back: Normal range of motion. Skin: General: Skin is warm and dry. Neurological: Mental Status: She is alert and oriented to person, place, and time. Psychiatric: Thought Content: Thought content normal. CARDIOVASCULAR MEDICINE TESTING: EKG today: LOOP RECORDER EVALUATION: OPD with Dr. Shirley PRESENTING RHYTHM: sinus with PACs BATTERY STATUS: Normal. ARRHYTHMIAS since 12/01/22: There have been 5 AT/AF detections accounting for a 0.3% burden. EGMs show sinus tachycardia with PACs mixed with AF. Median ventricular rate 82-115 bpm. The most recent occurred 03/05/23 at 0400 and was the longest which lasted ~ 3 hours. Anticoagulants listed: warfarin FOLLOW UP: Continue with 1-month remote transmissions. Chapis Rao RN LOOP RECORDER REMOTE EVALUATION: 02/19/23 PRESENTING RHYTHM: sinus rhythm BATTERY STATUS: OK ARRHYTHMIAS since 2023-02-17: There was 1 AF detection (4.8% AF burden). Review of ECG shows AF lasting 2 hours 18 minutes with median V rate 100 bpm on 18-Feb-2023. On warfarin per [facility]. FOLLOW UP: Continue with 1-month remote transmissions IMPRESSION: Ms. Berumen is a 77 year old female who presents for follow-up visit after placement of an injectable loop recorder in November. She has a history of hypertension anxiety, paroxysmal atrial fibrillationand syncope of unclear etiology. Device interrogation today shows fairly short episodes of atrial fi brillation with overall burden around 5%. Patient reports that she can occasionally feel the irregularity and racing heart with AF and when that occurs she takes a beta-yvonne. She states overall symptoms are manageable and she would prefer not to start any additional treatment. Antiarrhythmic medications including dronedarone and flecainide/metoprolol were discussed as well as ablation treatment. For now patient wishes to continue with monitoring and conservative treatment. She is doing well with warfarin for stroke prevention. Plan to continue follow-up of her injectable loop recorder withremote checks through device clinic and will schedule annual OPD visits. PLAN AND RECOMMENDATIONS: PAF: warfarin for OAC. No AAD as outlined. Monitor episodes and overall AF burden with ILR. I personally interviewed, confirmed and edited the above information as obtained by others. CONTACT INFORMATION: Mynor Shirley MD documented in this encounterC[facility]07-12-2023 Instructions* Patient Instructions* Terri Gomez DPM - 03/04/2023 2:58 PM EDT For nail fungus I recommend penlac which was prescribed today. Apply once daily for a year. Keep nails thin while treating for best results. The metal nail files work best for this. Use a file on thetop of your nails. The thinner your nails are the more likely the medication will be able to penetrate the thick nail plate and attack the fungus which are deep under the nail plate. Once nail fungushas cleared (which often times takes a year or more) then continue to treat preventatively with themedicine a few times a week or weekly. Penlac should be removed once weekly with alcohol. If you don't completely remove the medicine a thick buildup will occur and it will appear as if the nails are getting worse. Vicks vapo rub can also be used to soften the nails but should be used in combo with penlac. If nails are not improving after about 4 months of this regimen return to my office to discuss other options. [facility] will accept [facility] as well and may offer substantial saving if the cost to you for this medication is high. documented in this encounterC[facility]07-12-2023 History of Present illness Narrative* Terri Gomez DPM - 03/04/2023 2:56 PM EDT Images from the original note were not included. FOLLOW UP PODIATRIC OFFICE VISIT Chief Complaint: This 77 year old who presents for follow up:toe dislocation. Overall better occasional burning medial aspect 4th toe but not as often. Does william tape using cotton tape and toes are right next to each other so her neuroma is flaring on the same foot. We have been holding on MRI given that she has been doing better. Patient has been doing the following since last visit: william splinting. PAIN EVALUATION 03/04/2023 1419 Pain Level: 5 Pain Location: -- Right foot (3rd and 4th toe) Description: Burning Frequency: Intermittent Comments: william taping Hemoglobin A1C Date Value Ref Range Status 07/29/2022 5.5 4.3 - 5.6 % Final Comment: [place] [employer] guidelines indicate that patients with HgbA1c in the range 5.7-6.4% are at increased risk for development of diabetes, and intervention by lifestyle modification may be beneficial. HgbA1c greater or equal to 6.5% is considered diagnostic of diabetes. PCP: Elizabeth Dale PA-C PAST MEDICAL HISTORY Diagnosis Date A-fib (HCC) February 2021 Asthma Atrial tachycardia (HCC) 10/14/2018 BPPV (benign paroxysmal positional vertigo) 10/30/2014 Degenerative disc disease 08/10/2014 Mild Degenerative disc disease C6-C7 Mild Anterolisthesis C7-T-1`- See scanned document Essential hypertension, benign Fibromyalgia Glaucoma, open angle Hypothyroidism 10/14/2018 Varicose veins 08/25/2014 Varicose veins of other sites Venous stasis ulcer of ankle 07/18/2013 Vestibular neuronitis Vitamin D deficiency 09/20/2013 Current Outpatient Medications Medication Sig metoprolol tartrate, short acting, (LOPRESSOR) 25 mg tablet Take 25 mg by mouth twice daily. Takes as needed for rapid HR Promethazine-DM (PHENERGAN-DM) 6.25-15 mg/5 mL syrup Take 5 mL by mouth four times daily as needed (primarily for sleep). timolol maleate (TIMOPTIC) 0.5 % ophthalmic solution Use 1 Drop in both eyes twice daily. warfarin (COUMADIN) 5 mg tablet Take 1 tablet by mouth daily except 7.5mg on ( [facility] (Patient taking differently: Take 8 mg on Sun, 7.5mg all other days or as directed.) ALPHA LIPOIC ACID ORAL Take by mouth. Cholecalciferol, Vitamin D3, 50 mcg (2,000 unit) cap Take 2 capsules by mouth once daily. COQ10, UBIQUINOL, ORAL Take 30 mg by mouth. latanoprost (XALATAN) 0.005 % ophthalmic solution Use 1 Drop in both eyes daily at bedtime. No current facility-administered medications for this visit. ALLERGIES Allergen Reactions Fragrances Cough, Shortness of Breath Benzodiazepines Mental Status Change Pt sees colors and laughing Cats Itching, Shortness of Breath Eventual wheezing Dust Mites Other: See Comments Positive allergy test Grass Pollen-Timoth* Itching Nasal congestion Mold Itching Nasal congestion Seasonal Allergies Cough Sulfa (Sulfonamide * Itching Trees Itching Nasal congestion Valium [Diazepam] Intolerance Laughing hysterically, ultra sensitive Zithromax [Azithrom* Other: See Comments nausea PAST SURGICAL HISTORY Procedure Laterality Date ARTHRP TEMPOROMANDIBULAR JOINT W/WO AUTOGRAFT 1987 CATARACT SURGERY, COMPLEX 2005 Rt & Lt COLONOSCOPY FLX DX W/COLLJ SPEC WHEN PFRMD 11/08/2010 Colonoscopy COLONOSCOPY FLX DX W/COLLJ SPEC WHEN PFRMD 08/23/2019 [facility] Cebul repeat is not recommended NEUROPLASTY &/TRANSPOS MEDIAN NRV CARPAL TUNNE 1991 Carpal tunnel decomp-bilateral PAST SURGICAL HISTORY OF 08-21-05 EXCISION CYST LEFT MIDDLE FINGER PAST SURGICAL HISTORY OF right foot surgery- mortons neuroma PAST SURGICAL HISTORY OF 2013 left foot vein ablation TONSILLECTOMY PRIMARY/SECONDARY AGE 12/> 1961 Physical Exam: OBJECTIVE: Constitutional: Pt is a well developed 77 year old female who is alert, oriented, cooperative and in no apparent distress. Eyes: Following during examination. No redness or drainage. Respiratory: RR normal and nonlabored. Even breathing. No evidence of distress. Psychology: Patient is engaged during conversation. Normal affect and mood. Does not appear depressed or anxious. NVSI unchanged from previous visit. +variscosities. Dermatological: Nails 1 b/l are thick yellow dystrophic slightly worse on the L side. Webspaces clean and dry 1-4 b/l. Skin appears well hydrated and supple. good color, texture, turgor. No open lesions present. No callosities present. Musculoskeletal/Orthopaedic: Patient has mild pain to palpation of distal tip L 4th toe. Some swelling still noted but overall much improved. ASSESSMENT: Onychomycosis (primary encounter diagnosis) Pain in toe of left foot Pain in toe of right foot Pain and swelling of toe, right PLAN: 1. History and physical examination completed today. 2. For nail fungus I recommend penlac which was prescribed today. Apply once daily for a year. Keepnails thin while treating for best results. The metal nail files work best for this. Use a file on the top of your nails. The thinner your nails are the more likely the medication will be able to penetrate the thick nail plate and attack the fungus which are deep under the nail plate. Once nail fungus has cleared (which often times takes a year or more) then continue to treat preventatively with the medicine a few times a week or weekly. Penlac should be removed once weekly with alcohol. If you don't completely remove the medicine a thick buildup will occur and it will appear as if the nails are getting worse. Vicks vapo rub can also be used to soften the nails but should be used in combo with penlac. If nails are not improving after about 4 months of this regimen return to my office to discuss other options. [facility] will accept Good RX as well and may offer substantial saving if the cost to you for this medication is high. 3. Will hold MRI 4. William splint for 2 more weeks and then transition back to regular activity. Billed for tx of nail fungus within global for toe fracture. Terri Gomez DPM, DABPM, FACFAS Pager: [phone] [facility] [place] [facility] and [facility] locations documented in this encounterC[facility]06-28-2023 Miscellaneous Notes* Telephone Encounter - Lindy Acevedo RN - 02/18/2023 12:05 PM EDT Returned phone call from Cady Berumen. Reviewed her ILR from 02/15/23. She is scheduled for follow up in February. LOOP RECORDER REMOTE EVALUATION PRESENTING RHYTHM: Sinus Rhythm BATTERY STATUS: Normal. ARRHYTHMIAS since 01/16/23: There were 2 AF episodes, confirmed by ECGs. Both occurred on 02/01/23, longest lasting 1.5 hours, with a burden 0.3%. There was also a PVC burden of 1.6%. Anticoagulation listed: Warfarin. FOLLOW UP: Continue with 1-month remote transmissions. Joanna Acevedo RN * Telephone Encounter - Radha Tolbert - 02/18/2023 9:11 AM EDT February 18, 2023 Patient Contact Number: [phone] Patient last seen within the last year: Yes 12/14 Loop Recorder Implant Reason For Call: Back in A-Fib Off & on. Patient wakes up in the morning & feels like her throat is closing. But she may wake up @ 2 am or 3 am heart becomes erratic. Patient would like to know is the loop recorder recording these episodes?Patient is home alone. Physician:Mynor Shirley MD Patient was informed that non-urgent calls may be returned within the next three business days. Yes Radha Tolbert documented in this encounterCincinnati [facility]06-23-2023 Miscellaneous Notes* Telephone Encounter - Megan Rodriguez RN - 02/13/2023 12:28 PM EDT Appt scheduled 02/20 at 1 pm. Encouraged pt to use Tylenol, knee brace, ice and elevation as needed to help with knee discomfort. * Telephone Encounter - Elizabeth Dael PA-C - 02/13/2023 12:15 PM EDT Please schedule earliest available Thanks, Casey Dale PA-C * Telephone Encounter - Megan Rodriguez RN - 02/13/2023 8:31 AM EDT Pt calling in as she tripped and fell in the garden 2 weeks ago. Pt hit both knees but is still having problems with her left knee. States when she bends it, she gets sharp, stabbing pain in it. Level 6-7 on pain scale. If she keeps it straight, she has no pain. She is able to walk okay but tries to keep her left knee straight. States in the past, you have manipulated her knee for her, no appointments available til next Thursday. Pt wondering if she needs an xray. documented in this encounterCincinnati [facility]06-14-2023 NoteHNO ID: [id number] Author: BALWINDER Munson Service: Radiology Author Type: Technologist Type: Progress Notes Filed: 02/04/2023 11:25 AM Note Text: Radiology Service Progress Note PATIENT NAME: Cady Berumen DATE OF SERVICE: February 04, 2023 TIME: 11:24 AM PATIENT IDENTITY VERIFICATION COMPLETED USING TWO (2) IDENTIFIERS: Name and Date of confirmed by patient verbally. FALL SCREENING: Has the patient had 2 falls in the last year or 1 fall with injury or currently using an Ambulatory Assistive Device (Walker, Cane, Wheelchair, Crutches, etc.)? Yes, Patient High Risk for Falls What interventions were put in place to prevent falls during this visit? Offered Assistance with Transfers/Clothing and Increased Observations by Caregivers PATIENT GENDER DATA: Female. status: : No status: NO. PATIENT RELEVANT IMPLANT DATA REVIEWED: Not Applicable RADIOLOGY DEPARTMENT: General X-ray: Exam(s) Completed: Lower Extremity X-Ray(s): Foot, Right and Wt. Bearing PERIPHERAL IV DATA: Not applicable SIGNED BY: BALWINDER Munson February 04, 2023 11:24 [id number] History of Present illness Narrative* Terri Gomez, DPM - 02/04/2023 11:57 AM EDT Images from the original note were not included. FOLLOW UP PODIATRIC OFFICE VISIT Chief Complaint: This 77 year old female who presents for follow up: toe pain NEW COMPLAINT called for emergent appt. Dislocated toe with reduction few weeks ago. Was doing really well and then tripped again in the yard. Has been burning pain again since this time. Worried she may have dislocated the toe again. Taking care of at home. Patient has been doing the following since last visit: soft shoe. No longer splinting. PAIN EVALUATION 02/04/2023 1125 Pain Level: 4 Pain Location: -- Right third toe Description: Burning Frequency: Continuous Hemoglobin A1C Date Value Ref Range Status 07/29/2022 5.5 4.3 - 5.6 % Final Comment: [place] [employer] guidelines indicate that patients with HgbA1c in the range 5.7-6.4% are at increased risk for development of diabetes, and intervention by lifestyle modification may be beneficial. HgbA1c greater or equal to 6.5% is considered diagnostic of diabetes. PCP: Elizabeth Dale PA-C PAST MEDICAL HISTORY Diagnosis Date A-fib (HCC) February 2021 Asthma Atrial tachycardia (HCC) 10/14/2018 BPPV (benign paroxysmal positional vertigo) 10/30/2014 Degenerative disc disease 08/10/2014 Mild Degenerative disc disease C6-C7 Mild Anterolisthesis C7-T-1`- See scanned document Essential hypertension, benign Fibromyalgia Glaucoma, open angle Hypothyroidism 10/14/2018 Varicose veins 08/25/2014 Varicose veins of other sites Venous stasis ulcer of ankle 07/18/2013 Vestibular neuronitis Vitamin D deficiency 09/20/2013 Current Outpatient Medications Medication Sig metoprolol tartrate, short acting, (LOPRESSOR) 25 mg tablet Take 25 mg by mouth twice daily. Takes as needed for rapid HR Promethazine-DM (PHENERGAN-DM) 6.25-15 mg/5 mL syrup Take 5 mL by mouth four times daily as needed (primarily for sleep). timolol maleate (TIMOPTIC) 0.5 % ophthalmic solution Use 1 Drop in both eyes twice daily. warfarin (COUMADIN) 5 mg tablet Take 1 tablet by mouth daily except 7.5mg on ( [facility]) (Patient taking differently: Take 8 mg on Sun, 7.5mg all other days or as directed.) ALPHA LIPOIC ACID ORAL Take by mouth. Cholecalciferol, Vitamin D3, 50 mcg (2,000 unit) cap Take 2 capsules by mouth once daily. COQ10, UBIQUINOL, ORAL Take 30 mg by mouth. latanoprost (XALATAN) 0.005 % ophthalmic solution Use 1 Drop in both eyes daily at bedtime. No current facility-administered medications for this visit. ALLERGIES Allergen Reactions Fragrances Cough, Shortness of Breath Benzodiazepines Mental Status Change Pt sees colors and laughing Cats Itching, Shortness of Breath Eventual wheezing Dust Mites Other: See Comments Positive allergy test Grass Pollen-Timoth* Itching Nasal congestion Mold Itching Nasal congestion Seasonal Allergies Cough Sulfa (Sulfonamide * Itching Trees Itching Nasal congestion Valium [Diazepam] Intolerance Laughing hysterically, ultra sensitive Zithromax [Azithrom* Other: See Comments nausea PAST SURGICAL HISTORY Procedure Laterality Date ARTHRP TEMPOROMANDIBULAR JOINT W/WO AUTOGRAFT 1987 CATARACT SURGERY, COMPLEX 2005 Rt & Lt COLONOSCOPY FLX DX W/COLLJ SPEC WHEN PFRMD 11/08/2010 Colonoscopy COLONOSCOPY FLX DX W/COLLJ SPEC WHEN PFRMD 08/23/2019 [facility]-Ana Florezbul repeat is not recommended NEUROPLASTY &/TRANSPOS MEDIAN NRV CARPAL TUNNE 1990 Carpal tunnel decomp-bilateral PAST SURGICAL HISTORY OF 08-21-05 EXCISION CYST LEFT MIDDLE FINGER PAST SURGICAL HISTORY OF right foot surgery- mortons neuroma PAST SURGICAL HISTORY OF 2013 left foot vein ablation TONSILLECTOMY PRIMARY/SECONDARY AGE 121961 Physical Exam: OBJECTIVE: Constitutional: Pt is a well developed 77 year old female who is alert, oriented, cooperative and in no apparent distress. Eyes: Following during examination. No redness or drainage. Respiratory: RR normal and nonlabored. Even breathing. No evidence of distress. Psychology: Patient is engaged during conversation. Normal affect and mood. Does not appear depressed or anxious. NVSI unchanged from previous visit. Dermatological: Nails 1-5 b/l are normal. Webspaces clean and dry 1-4 b/l. Skin appears well hydrated and supple. good color, texture, turgor. No open lesions present. No callosities present. Musculoskeletal/Orthopaedic: Patient has pain to palpation of distal phalanx R 4th toe XR: February 04, 2023: proximal phalanx fracture. Proximal medial distal phalanx R 4th toe with some displacement. Component Latest Ref Rng & Units 01/22/2023 WBC 3.70 - 11.00 k/uL 5.85 RBC 3.90 - 5.20 m/uL 3.90 Hemoglobin 11.5 - 15.5 g/dL 12.5 Hematocrit 36.0 - 46.0 % 39.4 MCV 80.0 - 100.0 fL 101.0 (H) MCH 26.0 - 34.0 pg 32.1 MCHC 30.5 - 36.0 g/dL 31.7 RDW-CV 11.5 - 15.0 % 13.5 Platelet Count 150 - 400 k/uL 197 MPV 9.0 - 12.7 fL 13.0 (H) Neut% % 61.1 Abs Neut (ANC) 1.45 - 7.50 k/uL 3.57 Lymph% % 24.4 Abs Lymph 1.00 - 4.00 k/uL 1.43 Bent% % 10.4 Abs Bent <0.87 k/uL 0.61 Eosin% % 2.7 Abs Eosin <0.46 k/uL 0.16 Baso% % 1.2 Abs Baso <0.11 k/uL 0.07 Immature Gran % % 0.2 IMMATURE GRANS (ABS) <0.10 k/uL <0.03 NRBC /100 WBC 0.0 Absolute nRBC <0.01 k/uL <0.01 DTYPE Auto WSR 0 - 20 mm/hr 8 CRP <0.9 mg/dL <0.3 Uric Acid 2.5 - 6.6 mg/dL 5.5 labs all normal ASSESSMENT: Closed fracture of phalanx of right fourth toe, initial encounter (primary encounter diagnosis) Pain and swelling of toe, right PLAN: 1. History and physical examination completed today. 2. William splint to the 3rd toe. 3. Stiff soled shoe 4. If not improving over time we should let us know 5. MRI if not improving by next week. Will need small cuts to evaluate distal phalanx for any signsof infection. 6. RTC 4 weeks Consider doxycycline again as this helped the last time. Terri Gomez DPM, DABPM, FACFAS Pager: [phone] Orthopedic [facility] Rheumatologic [place] [facility] and [facility] locations documented in this encounterC[facility]06-14-2023 History of Present illness Narrative* Ivy George CT - 02/04/2023 10:50 AM EDT Radiology Service Progress Note PATIENT NAME: Cady Berumen DATE OF SERVICE: February 04, 2023 TIME: 11:24 AM PATIENT IDENTITY VERIFICATION COMPLETED USING TWO (2) IDENTIFIERS: Name and Date of confirmedby patient verbally. FALL SCREENING: Has the patient had 2 falls in the last year or 1 fall with injury or currently using an Ambulatory Assistive Device (Walker, Cane, Wheelchair, Crutches, etc.)? Yes, Patient High Riskfor Falls What interventions were put in place to prevent falls during this visit? Offered Assistance with Transfers/Clothing and Increased Observations by Caregivers PATIENT GENDER DATA: Female. status: : No status: NO. PATIENT RELEVANT IMPLANT DATA REVIEWED: Not Applicable RADIOLOGY DEPARTMENT: General X-ray: Exam(s) Completed: Lower Extremity X- Ray(s): Foot, Right and Wt. Bearing PERIPHERAL IV DATA: Not applicable SIGNED BY: BALWINDER Munson February 04, 2023 11:24 AM documented in this encounterCincinnati [facility]06-02-2023 Miscellaneous Notes* Telephone Encounter - Carmen Guzman RN - 01/23/2023 10:35 AM EDT Patient calling Her loop recorder is ok for her to have the MRI Pt will call the device clinic to make sure then call and schedule MRI documented in this encounterCincinnati [facility]05-31-2023 NoteHNO ID: [id number] Author: Alexis Hawkins Service: Radiology Author Type: Cafe Helper Type: Progress Notes Filed: 01/21/2023 5:20 PM Note Text: Radiology Service Progress Note PATIENT NAME: Cady Berumen DATE OF SERVICE: January 21, 2023 TIME: 5:19 PM PATIENT IDENTITY VERIFICATION COMPLETED USING TWO (2) IDENTIFIERS: Name and Date of confirmed by patient verbally. FALL SCREENING: Has the patient had 2 falls in the last year or 1 fall with injury or currently using an Ambulatory Assistive Device (Walker, Cane, Wheelchair, Crutches, etc.)? No PATIENT GENDER DATA: Female. status: : No status: NO. PATIENT RELEVANT IMPLANT DATA REVIEWED: Not Applicable RADIOLOGY DEPARTMENT: General X-ray: Exam(s) Completed: Lower Extremity X-Ray(s): Foot, Right and Wt. Bearing PERIPHERAL IV DATA: Not applicable SIGNED BY: Alexis Hawkins January 21, 2023 5:19 PMThe Surgical Hospital [facility] [id number] NoteHNO ID: [id number] Author: RT Chandra([place]) Service: Radiology Author Type: Technologist Type: Progress Notes Filed: 01/21/2023 4:19 PM Note Text: Radiology Service Progress Note PATIENT NAME: Cady Berumen DATE OF SERVICE: January 21, 2023 TIME: 4:18 PM PATIENT IDENTITY VERIFICATION COMPLETED USING TWO (2) IDENTIFIERS: Name and Date of confirmed by patient verbally. FALL SCREENING: Has the patient had 2 falls in the last year or 1 fall with injury or currently using an Ambulatory Assistive Device (Walker, Cane, Wheelchair, Crutches, etc.)? Yes, Patient High Risk for Falls What interventions were put in place to prevent falls during this visit? Instructed Patient to Call for Help if Needed, Offered Assistance with Transfers/Clothing, Instructed Patient to Remain Seated (Not on Exam Table) Until Exam, and Increased Observations by Caregivers PATIENT GENDER DATA: Female. status: : No status: NO. PATIENT RELEVANT IMPLANT DATA REVIEWED: Not Applicable RADIOLOGY DEPARTMENT: General X-ray: Exam(s) Completed: Lower Extremity X-Ray(s): Foot, Right PERIPHERAL IV DATA: Not applicable SIGNED BY: RT Chandra([place]) January 21, 2023 4:18 PMThe [facility] Hospital [facility] [id number] History of Present illness Narrative* Rena Linares RT(R) - 01/21/2023 4:00 PM EDT Radiology Service Progress Note PATIENT NAME: Cady Berumen DATE OF SERVICE: January 21, 2023 TIME: 4:18 PM PATIENT IDENTITY VERIFICATION COMPLETED USING TWO (2) IDENTIFIERS: Name and Date of confirmedby patient verbally. FALL SCREENING: Has the patient had 2 falls in the last year or 1 fall with injury or currently using an Ambulatory Assistive Device (Walker, Cane, Wheelchair, Crutches, etc.)? Yes, Patient High Riskfor Falls What interventions were put in place to prevent falls during this visit? Instructed Patient to Callfor Help if Needed, Offered Assistance with Transfers/Clothing, Instructed Patient to Remain Seated(Not on Exam Table) Until Exam, and Increased Observations by Caregivers PATIENT GENDER DATA: Female. status: : No status: NO. PATIENT RELEVANT IMPLANT DATA REVIEWED: Not Applicable RADIOLOGY DEPARTMENT: General X-ray: Exam(s) Completed: Lower Extremity X- Ray(s): Foot, Right PERIPHERAL IV DATA: Not applicable SIGNED BY: RT Chandra(R) January 21, 2023 4:18 PM * Kassandra Rahman Tech - 01/21/2023 4:00 PM EDT Radiology Service Progress Note PATIENT NAME: Cady Berumen DATE OF SERVICE: January 21, 2023 TIME: 5:19 PM PATIENT IDENTITY VERIFICATION COMPLETED USING TWO (2) IDENTIFIERS: Name and Date of confirmedby patient verbally. FALL SCREENING: Has the patient had 2 falls in the last year or 1 fall with injury or currently using an Ambulatory Assistive Device (Walker, Cane, Wheelchair, Crutches, etc.)? No PATIENT GENDER DATA: Female. status: : No status: NO. PATIENT RELEVANT IMPLANT DATA REVIEWED: Not Applicable RADIOLOGY DEPARTMENT: General X-ray: Exam(s) Completed: Lower Extremity X- Ray(s): Foot, Right and Wt. Bearing PERIPHERAL IV DATA: Not applicable SIGNED BY: Alexis Hawkins 31, 2023 5:19 PM documented in this encounterCincinnati [facility]05-31-2023 History of Present illness Narrative* Terri Gomez MARINA - 01/21/2023 3:44 PM EDTAssociated Order(s): Nerve Block: lower extremity Post-Procedure Diagnose(s): Pain; Toe dislocation, right, initial encounter; Pain and swelling of toe, right; Other acute osteomyelitis of right foot (HCC) FOLLOW UP PODIATRIC OFFICE VISIT Chief Complaint: This 77 year old female who presents for follow up:R toe pain 4th swelling and tender. Last seen in 2020. Patient has been doing the following since last visit: tennis shoes and met pad had really helped until recently. Wasn't having any pain. Dropped bottle on 12/30/22 dropped bottle on toes. R 4th toe that still hurts. Not getting better. Has been tender to touch, red and swelling and can't sleeve well at night. Burning pain in the toe. She is not sure if toe position is different from prior PAIN EVALUATION 01/21/2023 1507 Pain Level: 6 Pain Location: Foot-Right Description: Burning Frequency: Continuous Hemoglobin A1C Date Value Ref Range Status 07/29/2022 5.5 4.3 - 5.6 % Final Comment: [place] [employer] guidelines indicate that patients with HgbA1c in the range 5.7-6.4% are at increased risk for development of diabetes, and intervention by lifestyle modification may be beneficial. HgbA1c greater or equal to 6.5% is considered diagnostic of diabetes. PCP: Elizabeth Dale PA-C PAST MEDICAL HISTORY Diagnosis Date A-fib (HCC) February 2021 Asthma Atrial tachycardia (HCC) 10/14/2018 BPPV (benign paroxysmal positional vertigo) 10/30/2014 Degenerative disc disease 08/10/2014 Mild Degenerative disc disease C6-C7 Mild Anterolisthesis C7-T-1`- See scanned document Essential hypertension, benign Fibromyalgia Glaucoma, open angle Hypothyroidism 10/14/2018 Varicose veins 08/25/2014 Varicose veins of other sites Venous stasis ulcer of ankle 07/18/2013 Vestibular neuronitis Vitamin D deficiency 09/20/2013 Current Outpatient Medications Medication Sig metoprolol tartrate, short acting, (LOPRESSOR) 25 mg tablet Take 25 mg by mouth twice daily. Takes as needed for rapid HR Promethazine-DM (PHENERGAN-DM) 6.25-15 mg/5 mL syrup Take 5 mL by mouth four times daily as needed (primarily for sleep). timolol maleate (TIMOPTIC) 0.5 % ophthalmic solution Use 1 Drop in both eyes twice daily. warfarin (COUMADIN) 5 mg tablet Take 1 tablet by mouth daily except 7.5mg on ( [facility]) (Patient taking differently: Take 8 mg on Sun, 7.5mg all other days or as directed.) ALPHA LIPOIC ACID ORAL Take by mouth. Cholecalciferol, Vitamin D3, 50 mcg (2,000 unit) cap Take 2 capsules by mouth once daily. COQ10, UBIQUINOL, ORAL Take 30 mg by mouth. latanoprost (XALATAN) 0.005 % ophthalmic solution Use 1 Drop in both eyes daily at bedtime. doxycycline hyclate (VIBRAMYCIN) 100 mg capsule Take 1 capsule by mouth twice daily for 10 days. No current facility-administered medications for this visit. ALLERGIES Allergen Reactions Fragrances Cough, Shortness of Breath Benzodiazepines Mental Status Change Pt sees colors and laughing Cats Itching, Shortness of Breath Eventual wheezing Dust Mites Other: See Comments Positive allergy test Grass Pollen-Timoth* Itching Nasal congestion Mold Itching Nasal congestion Seasonal Allergies Cough Sulfa (Sulfonamide * Itching Trees Itching Nasal congestion Valium [Diazepam] Intolerance Laughing hysterically, ultra sensitive Zithromax [Azithrom* Other: See Comments nausea PAST SURGICAL HISTORY Procedure Laterality Date ARTHRP TEMPOROMANDIBULAR JOINT W/WO AUTOGRAFT 1987 CATARACT SURGERY, COMPLEX 2005 Rt & Lt COLONOSCOPY FLX DX W/COLLJ SPEC WHEN PFRMD 11/08/2010 Colonoscopy COLONOSCOPY FLX DX W/COLLJ SPEC WHEN PFRMD 08/23/2019 [facility]RLonnie Cebul repeat is not recommended NEUROPLASTY &/TRANSPOS MEDIAN NRV CARPAL TUNNE 1990 Carpal tunnel decomp-bilateral PAST SURGICAL HISTORY OF 08-21-05 EXCISION CYST LEFT MIDDLE FINGER PAST SURGICAL HISTORY OF right foot surgery- mortons neuroma PAST SURGICAL HISTORY OF 2013 left foot vein ablation TONSILLECTOMY PRIMARY/SECONDARY AGE 12/> 1961 Physical Exam: OBJECTIVE: Constitutional: Pt is a well developed 77 year old female who is alert, oriented, cooperative and in no apparent distress. Eyes: Following during examination. No redness or drainage. Respiratory: RR normal and nonlabored. Even breathing. No evidence of distress. Psychology: Patient is engaged during conversation. Normal affect and mood. Does not appear depressed or anxious. NVSI unchanged from previous visit. +variscosities. Dermatological: Nails 1-5 b/l are normal. Webspaces clean and dry 1-4 b/l. Skin appears well hydrated and supple. good color, texture, turgor. No open lesions present. No callosities present. No abscess noted under the nail bed. Attempted to drain without any pus seen proximal border. Musculoskeletal/Orthopaedic: Patient has pain to palpation of 4th toe PIPJ and DIPJ with swelling. Minimal warmth. Picture on chart. +tender 3rd IMS. XR: January 21, 2023: R 4th toe DIPJ appears malaligned. Nerve Block: lower extremity 01/22/2023 6:19 AM Body area: lower extremity Nerve: digital Laterality: right Sedation: Patient sedated: no Preparation: Patient was prepped and draped in the usual sterile fashion. Comments: 4th toe ASSESSMENT: Toe dislocation, right, initial encounter (primary encounter diagnosis) Pain and swelling of toe, right Other acute osteomyelitis of right foot (hcc) Pain RULE OUT OSTEOMYELITIS PLAN: 1. History and physical examination completed today. 2. Repeat XR today. 3. 2 cc 0.5% marcaine plain and 1% lidocaine plain in a 50:50 mix 4. Closed reduction R 4th toe attempted and was successfully verified on XR 5. Splinted toe into corrected position. 6. Labs. 7. MRI SU to rule out infection of the toe. 8. RTC doxycycline-will hold DHEA while taking. RTC 1-2 weeks Greater than 50% of todays 59 minute visit was spent with patient discussing diagnosis and treatment options Terri Gomez DPM, DABSIMI, FACFAS Pager: [phone] Orthopedic and Rheumatologic [place] [facility] and [facility] locations documented in this encounterC[facility]innati [facility]05-09-[facility]23 Instructions* Patient Instructions* Elizabeth Dale PA-C - 12/30/2022 4:42 PM EDT Rest the joint. Ice over next few days to help with pain and swelling. Elevate as often as possibleto reduce swelling and throbbing. Compression with an LEONARD wrap or elastic brace may feel more comfortable. Ice helps to break pain cycles. Moist helps muscles and ligaments to relax. Both may be effective. You may ice first for 10-15 minutes, then apply moist heat for 10-15 minutes every few hours as needed. If pain or swelling worsen, call the office. If pain is not steadily improving over the next two weeks, call the office. documented in this encounterCincinnati [facility]05-09-2023 History of Present illness Narrative* Elizabeth Dale PA-C - 12/30/2022 3:35 PM EDT 77 year old female with c/o dropped empty olive oil bottle on right toes. Very painful 3rd and 4th toes. Able to walk HISTORIES FAMILY HISTORY Problem Relation Age of Onset Heart Father Allergies Sister Breast Cancer Sister age of 50's with diagnosis Prostate Cancer Brother PAST MEDICAL HISTORY Diagnosis Date A-fib (HCC) February 2021 Asthma Atrial tachycardia (HCC) 10/14/2018 BPPV (benign paroxysmal positional vertigo) 10/30/2014 Degenerative disc disease 08/10/2014 Mild Degenerative disc disease C6-C7 Mild Anterolisthesis C7-T-1`- See scanned document Essential hypertension, benign Fibromyalgia Glaucoma, open angle Hypothyroidism 10/14/2018 Varicose veins 08/25/2014 Varicose veins of other sites Venous stasis ulcer of ankle 07/18/2013 Vestibular neuronitis Vitamin D deficiency 09/20/2013 PAST SURGICAL HISTORY Procedure Laterality Date ARTHRP TEMPOROMANDIBULAR JOINT W/WO AUTOGRAFT 1987 CATARACT SURGERY, COMPLEX 2005 Rt & Lt COLONOSCOPY FLX DX W/COLLJ SPEC WHEN PFRMD 11/08/2010 Colonoscopy COLONOSCOPY FLX DX W/COLLJ SPEC WHEN PFRMD 08/23/2019 [facility]. Cebul repeat is not recommended NEUROPLASTY &/TRANSPOS MEDIAN NRV CARPAL TUNNE 1991 Carpal tunnel decomp-bilateral PAST SURGICAL HISTORY OF 08-21-05 EXCISION CYST LEFT MIDDLE FINGER PAST SURGICAL HISTORY OF right foot surgery- mortons neuroma PAST SURGICAL HISTORY OF 2013 left foot vein ablation TONSILLECTOMY PRIMARY/SECONDARY AGE [id number] Social History Tobacco Use Smoking status: Never Smokeless tobacco: Never Vaping Use Vaping Use: Never used Substance Use Topics Alcohol use: Not Currently Drug use: No ACTIVE PROBLEM LIST Allergic Rhinitis, Cause Unspecified Generalized Osteoarthrosis, Unspecified Site Venous Stasis Ulcer of Right Ankle Limited to Breakdown of Skin With Varicose Veins (Hcc) Vitamin D Deficiency Nocturia Hesitancy of Micturition Varicose Veins of Right Lower Extremity Bppv (Benign Paroxysmal Positional Vertigo) Vertigo of Central Origin Peripheral Vertigo, Unspecified Sprain of Sacroiliac Joint Irritable Bowel Syndrome With Both Constipation and Diarrhea Vestibular Neuronitis of Right Ear Varicose Veins of Left Lower Extremity With Pain Asthma Facet Arthritis of Cervical Region Paroxysmal Atrial Tachycardia (Hcc) Severe Episode of Recurrent Major Depressive Disorder, Without Psychotic Features (Hcc) Paroxysmal Atrial Fibrillation (Hcc) Essential Hypertension Sob (Shortness of Breath) Current Outpatient Medications Medication Sig Dispense Refill metoprolol tartrate, short acting, (LOPRESSOR) 25 mg tablet Take 25 mg by mouth twice daily. Takes as needed for rapid HR timolol maleate (TIMOPTIC) 0.5 % ophthalmic solution Use 1 Drop in both eyes twice daily. prasterone, DHEA, (DHEA ORAL) Take 15 mg by mouth once daily. warfarin (COUMADIN) 5 mg tablet Take 1 tablet by mouth daily except 7.5mg on ( [facility] (Patient taking differently: Take 8 mg on Sun, 7.5mg all other days or as directed.) 30tablet 11 ALPHA LIPOIC ACID ORAL Take by mouth. Cholecalciferol, Vitamin D3, 50 mcg (2,000 unit) cap Take 2 capsules by mouth once daily. 60 capsule 11 COQ10, UBIQUINOL, ORAL Take 30 mg by mouth. latanoprost (XALATAN) 0.005 % ophthalmic solution Use 1 Drop in both eyes daily at bedtime. Promethazine-DM (PHENERGAN-DM) 6.25-15 mg/5 mL syrup Take 5 mL by mouth four times daily as needed (primarily for sleep). (Patient not taking: No sig reported) 120 mL 0 No current facility-administered medications for this visit. SPIROMETRY Never done BP CONTROLLED (<130/80) Never done ADVANCE DIRECTIVE DISCUSSION due on 08/24/2022 EXAM: BP 118/80 Pulse (!) 59 Resp 16 Wt 70.8 kg (156 lb) SpO2 97% BMI 25.96 kg/m Pleasant older adult woman in no acute distress. Alert and oriented all spheres. Normal affect and cognition. Speech normal. No deficits to learning or comprehension. Skin warm, dry, pink to lips and nailbeds. Normal turgor. Respirations regular and unlabored. Extrem: no clubbing or cyanosis. Edema: none. Extremities are warm and pink with prompt capillary refill. No obvious deformities. Very tender with palpation, light movement toes 3-4. No other pain in toes,rotation of forefoot, ankle ROM. XR reviewed: No obvious fracture. ASSESSMENT/PLAN: 1. Foot injury, right, initial encounter - ICD9: 959.7, ICD10: S99.921A - XR FOOT GENERAL 3V AP/LAT/OBL RIGHT Reviewed foot care with ice, elevation, use of postop shoe. Patient has 1 at home which she will use. Patient does that she can manage pain with home medications. Follow-up as needed, if symptoms do not steadily improving by 2 to 3 weeks patient is to notify theoffice. Elizabeth Dale PA-C documented in this encounterCincinnati [facility]04-17-2023 History of Present illness Narrative* Elizabeth Dale PA-C - 12/08/2022 9:00 AM EDT 77 year old female with c/o here for follow up Left ear buzzing, trying can't hear out of left ear. Had to put dog down. Right side lower back, seeing chiropractor Scratched on back that it burning. Essential hypertension (primary encounter diagnosis) Paroxysmal atrial fibrillation (hcc) Paroxysmal atrial tachycardia (hcc) Syncope and collapse Hyperlipidemia, mixed Essential hypertension, benign 12/01/[address] Mynor Kim, following instruction for event recording. 11/05/2022 cardiology F/U Desire Weldon PA-C 10/13/2022 echocardiogram: LV size and LV SF WNL, EF 60%, stage I diastolic dysfunction, no regional wall motion abnormalities RV size and RV SF WNL. Normal left and right atria. No significant valvular heart disease, 1+ MVI, 1+ TVI, PAP 33 mmHg. Normal great vessels including aortic root, pulmonary arteries and vena cava. Cardiovascular interval hx: continues intermittent a.fib Current meds: Metoprolol tartrate 25mg as needed needed for racing heart Coumadin 5mg Use of NTG: No Chest pain, arm, jaw pain, neck, or upper back pain suggestive of angina: No. SOB: Yes Dyspnea with exertion: mild orthopnea: No Cough : No racing or irregular heartbeats: Yes, with afib palpitations: Yes syncopal sx: none recent Headache: No Unexplainable fatigue chronic fatigue, stressed Leg swelling: No Nausea: No diaphoresis: No Heartburn: No Claudication: No Smoking: No Following Low cholesterol, high fiber diet? Yes If on statin: muscle aches? No If on statin: GI sx or diarrhea? No Additional history: very concerned about spider veins and varicosities feels she has increasing numbers and want to know how to stop this from happening. Has had surgical intervention an dhypertonic saline. 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 Interval history: stable. Current medications: none Worsening shortness of breath: No. Cough: Occasional Wheezing: No. Smoking: No. Compliant with medications: No. Using rescue inhaler: none. Vestibular neuronitis of right ear Doing PT but too strenuous r/t RIJ so put on hold Going to call and reset. Impaired fasting glucose Hemoglobin A1C (%) Date Value 07/29/2022 5.5 05/01/2020 5.2 06/19/2018 5.4 ) Severe episode of recurrent major depressive disorder, without psychotic features (hcc) Feels she is stable, doing well ocnsidering. HISTORIES FAMILY HISTORY Problem Relation Age of Onset Heart Father Allergies Sister Breast Cancer Sister age of 50's with diagnosis Prostate Cancer Brother PAST MEDICAL HISTORY Diagnosis Date A-fib (HCC) February 2021 Asthma Atrial tachycardia (HCC) 10/14/2018 BPPV (benign paroxysmal positional vertigo) 10/30/2014 Degenerative disc disease 08/10/2014 Mild Degenerative disc disease C6-C7 Mild Anterolisthesis C7-T-1`- See scanned document Essential hypertension, benign Fibromyalgia Glaucoma, open angle Hypothyroidism 10/14/2018 Varicose veins 08/25/2014 Varicose veins of other sites Venous stasis ulcer of ankle 07/18/2013 Vestibular neuronitis Vitamin D deficiency 09/20/2013 PAST SURGICAL HISTORY Procedure Laterality Date ARTHRP TEMPOROMANDIBULAR JOINT W/WO AUTOGRAFT 1988 CATARACT SURGERY, COMPLEX 2006 Rt & Lt COLONOSCOPY FLX DX W/COLLJ SPEC WHEN PFRMD 11/08/2010 Colonoscopy COLONOSCOPY FLX DX W/COLLJ SPEC WHEN PFRMD 08/23/2019 [facility]. Cebul repeat is not recommended NEUROPLASTY &/TRANSPOS MEDIAN NRV CARPAL TUNNE 1990 Carpal tunnel decomp-bilateral PAST SURGICAL HISTORY OF 08-21-05 EXCISION CYST LEFT MIDDLE FINGER PAST SURGICAL HISTORY OF right foot surgery- mortons neuroma PAST SURGICAL HISTORY OF 2013 left foot vein ablation TONSILLECTOMY PRIMARY/SECONDARY AGE 12/> 1962 Social History Tobacco Use Smoking status: Never Smokeless tobacco: Never Vaping Use Vaping Use: Never used Substance Use Topics Alcohol use: Not Currently Drug use: No ACTIVE PROBLEM LIST Allergic Rhinitis, Cause Unspecified Generalized Osteoarthrosis, Unspecified Site Venous Stasis Ulcer of Right Ankle Limited to Breakdown of Skin With Varicose Veins (Hcc) Vitamin D Deficiency Nocturia Hesitancy of Micturition Varicose Veins of Right Lower Extremity Bppv (Benign Paroxysmal Positional Vertigo) Vertigo of Central Origin Peripheral Vertigo, Unspecified Sprain of Sacroiliac Joint Irritable Bowel Syndrome With Both Constipation and Diarrhea Vestibular Neuronitis of Right Ear Varicose Veins of Left Lower Extremity With Pain Asthma Facet Arthritis of Cervical Region Paroxysmal Atrial Tachycardia (Hcc) Severe Episode of Recurrent Major Depressive Disorder, Without Psychotic Features (Hcc) Paroxysmal Atrial Fibrillation (Hcc) Essential Hypertension Sob (Shortness of Breath) Current Outpatient Medications Medication Sig Dispense Refill metoprolol tartrate, short acting, (LOPRESSOR) 25 mg tablet Take 25 mg by mouth twice daily. Takes as needed for rapid HR Promethazine-DM (PHENERGAN-DM) 6.25-15 mg/5 mL syrup Take 5 mL by mouth four times daily as needed (primarily for sleep). (Patient not taking: Reported on 10/28/2022) 120 mL 0 timolol maleate (TIMOPTIC) 0.5 % ophthalmic solution Use 1 Drop in both eyes twice daily. prasterone, DHEA, (DHEA ORAL) Take 15 mg by mouth once daily. warfarin (COUMADIN) 5 mg tablet Take 1 tablet by mouth daily except 7.5mg on ( [facility]) (Patient taking differently: Take 8 mg on Sun, 7.5mg all other days or as directed.) 30tablet 11 ALPHA LIPOIC ACID ORAL Take by mouth. Cholecalciferol, Vitamin D3, 50 mcg (2,000 unit) cap Take 2 capsules by mouth once daily. 60 capsule 11 COQ10, UBIQUINOL, ORAL Take 30 mg by mouth. latanoprost (XALATAN) 0.005 % ophthalmic solution Use 1 Drop in both eyes daily at bedtime. No current facility-administered medications for this visit. SPIROMETRY Never done ADVANCE DIRECTIVE DISCUSSION due on 08/24/2022 EXAM: BP 130/88 (BP Site: Left Arm, BP Position: Sitting, BP Cuff Size: Regular Adult) Pulse 60 Resp 16 Wt 70.3 kg (155 lb) SpO2 97% BMI 25.79 kg/m Pleasant older woman in no acute distress. Alert and oriented all spheres. Normal affect and cognition. Speech normal. No deficits to learning or comprehension. Skin warm, dry, pink to lips and nailbeds. Normal turgor. Respirations regular and unlabored. HEENT: NCAT. No scleral icterus or conjunctival injection. TM's clear. Nose and oropharynx free from injection or lesion. Oral membranes moist and pink. No cervical lymph nodes. Thyroid non-tender, no masses, or enlargement. Carotids pulses 2+/4+ without bruits. No JVD with HOB at 30 degrees. Chest is normal shape. Lungs are clear to all hooper with good air exchange through out. Loop recorder site looks good. HRRR without murmur or gallop. No lifts, heaves, or rubs. Area on right upper buttock which looks like fingernail trauma- mild. Extrem: no clubbing or cyanosis. Edema: none. Extremities are warm and pink with prompt capillary refill. ASSESSMENT/PLAN: 1. Essential hypertension - ICD9: 401.9, ICD10: I10 (primary diagnosis) - suboptimal control - Continue current medication(s) - Recommended regular aerobic exercise. - Recommend home blood pressure monitoring, to bring results in on next visit - Goal of BP <130/80 2. Paroxysmal atrial fibrillation (HCC) - ICD9: 427.31, ICD10: I48.0 3. Paroxysmal atrial tachycardia (HCC) - ICD9: 427.0, ICD10: I47.1 Loop records, followed by cardiology, stable 4. Syncope and collapse - ICD9: 780.2, ICD10: R55 No new episodes. 5. Hyperlipidemia, mixed - ICD9: 272.2, ICD10: E78.2 - suboptimal control - Encouraged following a low fat, low cholesterol diet. - Discussed the benefits of regular aerobic exercise and weight loss. 6. Essential hypertension, benign - ICD9: 401.1, ICD10: I10 - suboptimal control - Continue current medication(s) - Recommended regular aerobic exercise. - Recommend home blood pressure monitoring, to bring results in on next visit - Goal of BP <130/80 7. Mild asthma without complication, unspecified whether persistent - ICD9: 493.90, ICD10: J45.909 Mild intermittent Asthma stable - Continue current meds - Avoidance of triggers recommended 8. Vestibular neuronitis of right ear - ICD9: 386.12, ICD10: H81.21 In PT, had difficulty related to issues with back an d hip this time. 9. Impaired fasting glucose - ICD9: 790.21, ICD10: R73.01 No new data, stable 10. Severe episode of recurrent major depressive disorder, without psychotic features (HCC) - ICD9:296.33, ICD10: F33.2 Feels she is doing well considering burden in home life. F/u 6 months or as needed. Elizabeth Dale PA-C documented in this encounterC[facility]innati [facility]04-07-2023 History of Present illness Narrative* Linda Low RN - 11/28/2022 3:23 PM EDT THE FOLLOWING WAS EVALUATED Motivation To Learn: Interested Family/Significant Other Support: Unable to assess - Family not present Cognitive Ability: Alert and oriented Patient Learns Best By: Individual Instruction The Following Influencing Factors Were Barriers To This Education Session: None The Following Physical Limitations Were Barriers To This Education Session: None Instruction Provided To: Patient Procedure: Loop Recorder Implant Pre-procedure information reviewed: Patient ID verified Procedure verified Physician verified Explanation of procedure Sedation level during procedure MD medication instructions from EP lab request: Anticoagulation: Continue anticoagulation. Do not interrupt. Stop Antiarrhythmic: No Stop Beta Yvonne/ Calcium Channel Yvonne: No ASA: N/A Travel instructions/restrictions Scheduling information Possible same day discharge versus overnight hospital stay Check out time Family waiting area Physician contact with family after procedure Post Procedure Expectations reviewed: Inpatient hospital stay Post procedure antiarrhythmics and anticoagulation will be discussed with Physician, nurse practitioner or Physician assistant district attorney upon discharge Instructions for transmitting EKG to Monitoring Center 3 month follow up instructions Contact number for information and questions Patient Evaluation: Verbalizes understanding Follow Up Plan: Follow up as directed by MD. 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 In Department of CARDIOLOGY. documented in this encounterCincinnati [facility]03-08-2023 Miscellaneous Notes* Telephone Encounter - Penny Mosley RN - 10/29/2022 3:35 PM EST The date of 12-01-[address] Shirley offered & accepted by patient. * Telephone Encounter - Penny Mosley RN - 10/29/2022 3:35 PM EST ----- Message from Mynor Shirley MD sent at 10/28/2022 11:01 AM EST ----- Regarding: please schedule injectable loop Patient: Cady Berumen EP Lab Procedure requested: Other Procedures Loop Implant CPT 23046 Anticoagulation Status: INR in EPIC Requesting Physician: Mynor Shirley MD Procedural Physician: Mynor Shirley MD Date of last H&P or Date of upcoming H&P: 10/28/22 Indications for procedure: Atrial Fibrillation Procedure time frame: Patient convenience Current Meds: Current Outpatient Medications: metoprolol tartrate, short acting, (LOPRESSOR) 25 mg tablet Promethazine-DM (PHENERGAN-DM) 6.25-15 mg/5 mL syrup timolol maleate (TIMOPTIC) 0.5 % ophthalmic solution prasterone, DHEA, (DHEA ORAL) warfarin (COUMADIN) 5 mg tablet ALPHA LIPOIC ACID ORAL Cholecalciferol, Vitamin D3, 50 mcg (2,000 unit) cap COQ10, UBIQUINOL, ORAL latanoprost (XALATAN) 0.005 % ophthalmic solution input Section Potential Research Patient: No General anesthesia needed: No Moderate anesthesia needed: No Patient a candidate of same day discharge: Yes Mapping Ablation:None CT Scan needed pre-procedure: No ECHO needed pre-procedure:None Anticoagulation: Continue anticoagulation. Do not interrupt. Stop Antiarrhythmic: No Stop Beta Yvonne/ Calcium Channel Yvonne: No ASA: N/A Additional instructions:None Mynor Shirley MD October 28, 2022 11:01 AM documented in this encounterCincinnati [facility] Center03-01-2023 Miscellaneous Notes* Telephone Encounter - Celena Reis RN - 10/22/2022 3:38 PM EST Patient calling to let PCP know she will be seeing Cardiology @ [facility] on 10/28/22. Celena Reis RN documented in this encounterCincinnati Va Medical Center02-28-2023 Miscellaneous Notes* Telephone Encounter - Chico Rodríguez MA - 10/21/2022 3:46 PM EST Consult to PT faxed to [facility] per patient's request. Chico Rodríguez MA documented in this encounterCincinnati Va [facility] Center02-20-[address] Sumeet [facility] October 14, 2022 12:09am Note Date/Time October 13, 2022 11:52pm [facility] Medical Records Department [address] [place] [address] Emergency Department Summary 10/13/22 MR#: [id number] Acct: [id number] Name: CADY BERUMEN Rep #:[id number] : 1945 76 From: Ignacio Fay DO PCP: JEANNIE Pires Status:REG E R Location: ED HPI History of Present Illness Chief Complaint: Syncope Narrative Narrative: 76-year-old female presenting with a syncopal episode. Patient states that she was just in the hospital yesterday and overnight for near syncope. This was dueto A- fib which was under control in the hospital. Patient states she had an echocardiogram done today which was normal. Her blood work was rechecked and her cardiac enzymes had stabilized. Apparently these did go up initially because of A-fib with RVR. Patient states that he was helping in the kitchen tomake food and she felt it coming on. She denies any chest pain. She did not feel any palpitations. Her family member caught her and she did not fall to thefloor. [facility] Medical History Asthma Atrial tachycardia (10/14/18) Change in bowel habit Chronic venous insufficiency Essential (primary) hypertension Glaucoma senior care (current) use of 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 Near syncope PRAMOD (obstructive sleep apnea) Osteoarthritis Osteopenia Paroxysmal atrial fibrillation Shortness of breath Varicose vein of leg Vestibular neuritis Home Medications cholecalciferol (vitamin D3) 25 mcg (1,000 unit) tablet 1,000 unit PO BID vitamin 03/10/16 [History Last Taken 10/11/22] latanoprost 0.005 % eye drops 1 drp EACH [facility] eye health 03/10/16 [History Last Taken 10/11/22] coenzyme Q10 50 mg chewable tablet 30 mg PO DAILY 06/07/19 [History Last Taken 10/11/22] prasterone (dhea) 25 mg capsule (DHEA) 15 mg PO DAILY 07/27/20 [History Last Taken 10/11/22] timolol 0.25 % eye drops 1 drp ophthalmic (eye) BID 12/02/21 [History Last Taken 10/11/22] Healthly Lung 1 tab PO/SL DAILY covid 10/12/22 [History Last Taken 10/11/22] alpha lipoic acid 50 mg capsule 50 mg PO DAILY supplement 10/12/22 [History Last Taken 10/11/22] metoprolol tartrate 25 mg tablet 12.5 mg PO BID afib 10/12/22 [History Last Taken 10/11/22] warfarin 5 mg tablet 7.5 mg PO MOTUWETHFRSA 10/12/22 [History Last Taken 10/11/22] warfarin 5 mg tablet 10 mg PO JONAS afib 10/12/22 [History Last Taken 10/05/22] Allergy/AdvReac Type Severity Reaction Status Date / Time cat dander Allergy Mild congestion Verified 10/13/22 23:02 grass pollen Allergy Mild Cough, Verified 10/13/22 23:02 rhinitis house dust Allergy Mild Cough, Verified 10/13/22 23:02 rhinitis mold Allergy Mild Cough, Verified 10/13/22 23:02 rhinitis tree and shrub pollen Allergy Mild Cough, Verified 10/13/22 23:02 rhinitis Sulfa (Sulfonamide Allergy Itching Verified 10/13/22 23:02 Antibiotics) losartan AdvReac Severe dizziness, Verified 10/13/22 23:02 severe amlodipine AdvReac Intermediate dizziness Verified 10/13/22 23:02 lisinopril AdvReac Intermediate Nagging Verified 10/13/22 23:02 dry cough Benzodiazepines AdvReac Other Verified 10/13/22 23:02 diazepam [From Valium] AdvReac Other Verified 10/13/22 23:02 Family History Father Myocardial infarction from [place] age 61 Heart disease Diabetes Sister Breast cancer Surgical History History of carpal tunnel release History of cataract surgery History of tonsillectomy history TMJ surgery history vein surgery S/P excision of Ramos's neuroma Social History household members: spouse housing: house Smoking Status: Never smoker alcohol intake: current alcohol intake frequency: a few times a month substance use type: does not use what type of physical activity do you participate in: none do you feel safe at home: Yes ROS MARY ED Constitutional Constitutional ED: Denies chills, fever(s) or sweats Eyes Eyes: Denies blurry vision or change in vision ENT ENT ED: Denies ear pain or sore throat Cardiovascular Cardiovascular: Reports other Details: Syncopal episode ; Denies chest pain, palpitations or racing heartbeat Respiratory/Chest Respiratory/Chest: Denies cough, dyspnea or sputum Gastrointestinal Gastrointestinal: Denies abdominal pain, constipation, diarrhea, nausea or vomiting Genitourinary Genitourinary ED: Denies dysuria, hematuria or urinary frequency Musculoskeletal Musculoskeletal: Denies arthralgias, myalgias or neck pain Integumentary Denies abscess, Abrasions or rash Neurologic Neurologic: Denies headache(s), paresthesias or weakness Psychiatric Psychiatric: Denies anxiety, depression, suicidal ideation or suicidal thoughts Endocrine Endocrinology: Denies polydipsia or polyuria EXAM Physical Exam Const Vital Signs: 10/13/22 22:59 10/13/22 22:59 10/13/22 23:20 Temperature 98.6 F Temperature Source Oral Pulse Rate 71 Pulse Rate [Lying] Pulse Rate [Sitting (for 1 minute prior to obtaining)] Pulse Rate [Standing (for 1 minute prior to obtaining)] Respiratory Rate 20 H Respiratory Effort Normal Respiratory Pattern Normal Blood Pressure 160/98 H Blood Pressure [Lying] Blood Pressure [Sitting (for 1 minute prior to obtaining)] Blood Pressure [Standing (for 1 minute prior to obtaining)] Blood Pressure Mean 118 Blood Pressure Mean [Lying] Blood Pressure Mean [Sitting (for 1 minute prior to obtaining)] Blood Pressure Mean [Standing (for 1 minute prior to obtaining)] Pulse Ox 100 Oxygen Delivery Method Room Air Room Air 10/14/22 00:03 Temperature Temperature Source Pulse Rate Pulse Rate [Lying] 74 Pulse Rate [Sitting (for 1 minute prior to obtaining)] 73 Pulse Rate [Standing (for 1 minute prior to obtaining)] 78 Respiratory Rate Respiratory Effort Respiratory Pattern Blood Pressure Blood Pressure [Lying] 166/74 H Blood Pressure [Sitting (for 1 minute prior to obtaining)] 163/79 H Blood Pressure [Standing (for 1 minute prior to obtaining)] 159/80 H Blood Pressure Mean Blood Pressure Mean [Lying] 104 Blood Pressure Mean [Sitting (for 1 minute prior to obtaining)] 107 Blood Pressure Mean [Standing (for 1 minute prior to obtaining)] 106 Pulse Ox Oxygen Delivery Method General Appearance ED: Negative for pallor HEENT Reports normocephalic, head/scalp atraumatic and moist mucous membranes Eyes PERRL and EOMs intact bilaterally Neck no lymphadenopathy and supple Chest Wall inspection of chest normal and palpation of chest normal Resp normal respiratory effort and clear to auscultation bilaterally Auscultation: Negative for rales, rhonchi or wheezes Cardio regular rate and regular rhythm GI normal to inspection, nondistended, normoactive bowel sounds and non-distended Auscultation: normoactive bowel sounds Palpation: soft Narrative: Deferred Extremity normal to inspection General Extremety ED: Negative for edema or tenderness General Extremity: Negative for edema Neuro oriented x3 and CN's II-XII intact bilaterally Sensorium / Orientation: alert Motor Exam: strength 5/5 throughout Psych mental status grossly normal Attitude: No agitated Skin no rashes or lesions noted and no wounds General Skin Exam: Negative for jaundice or pallor MDM MDM MDM Narrative Medical decision making narrative: Patient with syncopal episode. She states she just left the hospital today. She had an echocardiogram done this morning which showed EF of 60%. Review of her blood work showed that her troponin did initially jump greater than 20 points from 6 to 31. This improved to 6. She states she saw Dr. Garsia in the hospital. She was discharged home. She is feeling otherwise well. She states that she was helping in the kitchen and felt it coming on and was lowered to theground. She did not lose bladder control or bowel control. It was no seizure-like activity. Patient initially called 24-hour nurses line and was told to come to the emergency room. She is well-appearing currently. She has family with her. They state that she is acting at her baseline. Will check orthostatic vital signs. CBC to assess platelet cell count, hemoglobin, platelets, differential. BMP to assess renal function and electrolytes. High sensitive troponin also ordered as well as a EKG and chest x-ray. EKG on my interpretation shows normal sinus rhythm with a ventricular to 65 bpm without sign of ischemic change or dysrhythmia. Chest x-ray my interpretation shows no acute process. CBC shows no leukocytosis. Hemoglobin stable at 11.5. No significant interval change since yesterday. Platelets normal at 171. No left shift. GFR and creatinine normal. Electrolytes within normal limits. INR therapeutic at 3.0. Orthostatic vital signs were negative. High-sensitivity troponins as a seem to was this morning. Patient stable for discharge by [place] syncope rule. She was also just admitted and had echocardiogram done this morning. Follow-up with cardiology. Return precautions were discussed. Impression: 1. Syncope 2. History of A-fib Lab Data Labs: Laboratory Results - last 24 hr 10/13/22 10/13/22 10/13/22 23:39 23:39 23:39 WBC 7.1 RBC 3.63 L Hgb 11.5 L Hct 36.5 L MCV 100.6 H MCH 31.7 MCHC 31.5 L RDW Std Deviation 51.0 H RDW Coeff of Dulce 13.7 Plt Count 171 MPV 12.8 H Immature Gran % (Auto) 0.300 Neut % (Auto) 59.8 Lymph % (Auto) 21.3 Bent % (Auto) 10.5 H Eos % (Auto) 7.1 H Baso % (Auto) 1.0 Absolute Neuts (auto) 4.3 Absolute Lymphs (auto) 1.52 Nucleated RBC % 0 PT 30.7 H INR 3.0 Sodium 140 Potassium 4.0 Chloride 107 Carbon Dioxide 24.0 Anion Gap 9 BUN 23 H Creatinine 0.77 Estim Creat Clear Calc 43.07 Est GFR (MDRD) Af Amer 94 Est GFR (MDRD) Non-Af 78 BUN/Creatinine Ratio 30.0 H Glucose 107 H Calcium 9.2 Troponin I High Sens 6 Radiography Diagnostic Testing: Clinical Impression(s) from Imaging Studies Chest X-Ray 10/13/22 23:11 IMPRESSION: No radiographic evidence of acute cardiopulmonary disease. Electronically Signed: Esha Massey MD at 23:38 EST Reading Location ID and State: [id number] / Tel , Service support , Discharge Plan Triage Chief Complaint: Syncope ED Provider: Ignacio Fay Dx/Rx/DC Orders Prescriptions: No Action prasterone (dhea) [DHEA] 25 mg capsule 15 mg PO DAILY timolol 0.25 % drops 1 drp ophthalmic (eye) BID latanoprost 1 DROP bottle 1 drp EACH EYE QHS cholecalciferol (vitamin D3) 1,000 UNIT tablet 1,000 unit PO BID coenzyme Q10 50 MG tablet,chewable 30 mg PO DAILY warfarin 5 mg tablet 10 mg PO JONAS warfarin 5 mg tablet 7.5 mg PO MOTUWETHFRSA Protocol: Dose Management Condition: Thursday Dose/Route: 10 mg Instruction: 2 x 5 mg tablets Condition: Thursday Dose/Route: 7.5 mg Instruction: 1.5 x 5 mg tablets Condition: Thursday Dose/Route: 7.5 mg Instruction: 1.5 x 5 mg tablets Condition: Thursday Dose/Route: 7.5 mg Instruction: 1.5 x 5 mg tablets Condition: Dose/Route: 7.5 mg Instruction: 1.5 x 5 mg tablets Condition: Thursday Dose/Route: 7.5 mg Instruction: 1.5 x 5 mg tablets Condition: Thursday Dose/Route: 7.5 mg Instruction: 1.5 x 5 mg tablets Protocol Text: Adjustment Start Date: Thursday10/08/22 INR Value: 3.0 INR Date: 10/07/22 Recheck Date: 10/29/22 metoprolol tartrate 25 mg tablet 12.5 mg PO BID alpha lipoic acid 50 mg Capsule 50 mg PO DAILY Health[facility] Lung 1 tab PO/SL DAILY Primary Care Provider: Elizabeth Dale Referrals: Elizabeth Dale PA [Primary Care Provider] - What to do if you have Problems For any increased pain, shortness of breath, bleeding, nausea or vomiting, chestpain, or any unexpected problems, contact your Primary Care Provider. Call [facility] ([phone]) or report to the closest Emergency Room. Call 911 if necessary. 10/14/228 <Electronically signed by Ignacio Fay DO> Cosigner Signature (if applicable): CC: JEANNIE Dale ~ Signed [facility] Work Phone: [phone] [phone] History and physical note Author Dr. Perry [facility] October 12, 2022 2:08pm Note Date/Time October 12, 2022 12:25pm [facility] Medical Records Department [address] [place] [address] [place] [address] H&P Exam - Hospitalist 10/12/22 1224 MR#: [id number] Acct: [id number] Name: CADY BERUMEN Rep #:[id number] : 1945 76 From: Walker villalobos MD PCP: JEANNIE Pires Status:ADM I NO Location: [facility] [id number] HPI - General General Date of Admission: 10/12/22 HPI Narrative CADY BERUMEN, is a 76 F who presents to the hospital complaining of palpitations and transient weakness. She states that she has known A-fib and that whenever she feels like she goes into A-fib she is to take metoprolol she presents today because she had an episode overnight that was more intense and lasted longer than her previous episodes. She feels well currently without any issues but only takes metoprolol as needed. She denies any chest pain but she did become diaphoretic part of the concern with the ED was that she did a delta troponin and her troponin went from 11 to 31 she states that she has felt unwellfor about a month when she was diagnosed with COVID. [facility] Medical History Asthma Atrial tachycardia (10/14/18) Change in bowel habit Chronic venous insufficiency Essential (primary) hypertension Glaucoma long term (current) use of 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 Near syncope PRAMOD (obstructive sleep apnea) Osteoarthritis Osteopenia Paroxysmal atrial fibrillation Shortness of breath Varicose vein of leg Vestibular neuritis Home Medications cholecalciferol (vitamin D3) 25 mcg (1,000 unit) tablet 1,000 unit PO BID vitamin 03/10/16 [History Last Taken 10/11/22] latanoprost 0.005 % eye drops 1 drp EACH EYE [facility] eye health 03/10/16 [History Last Taken 10/11/22] coenzyme Q10 50 mg chewable tablet 30 mg PO DAILY 06/07/19 [History Last Taken 10/11/22] prasterone (dhea) 25 mg capsule (DHEA) 15 mg PO DAILY 07/27/20 [History Last Taken 10/11/22] timolol 0.25 % eye drops 1 drp ophthalmic (eye) BID 12/02/21 [History Last Taken 10/11/22] Health[facility] Lung 1 tab PO/SL DAILY covid 10/12/22 [History Last Taken 10/11/22] alpha lipoic acid 50 mg capsule 50 mg PO DAILY supplement 10/12/22 [History Last Taken 10/11/22] metoprolol tartrate 25 mg tablet 12.5 mg PO BID afib 10/12/22 [History Last Taken 10/11/22] warfarin 5 mg tablet 7.5 mg PO MOTUWETHFRSA 10/12/22 [History Last Taken 10/11/22] warfarin 5 mg tablet 10 mg PO JONAS afib 10/12/22 [History Last Taken 10/05/22] Allergy/AdvReac Type Severity Reaction Status Date / Time cat dander Allergy Mild congestion Verified 10/12/22 04:11 grass pollen Allergy Mild Cough, Verified 10/12/22 04:11 rhinitis house dust Allergy Mild Cough, Verified 10/12/22 04:11 rhinitis mold Allergy Mild Cough, Verified 10/12/22 04:11 rhinitis tree and shrub pollen Allergy Mild Cough, Verified 10/12/22 04:11 rhinitis Sulfa (Sulfonamide Allergy Itching Verified 10/12/22 04:11 Antibiotics) losartan AdvReac Severe dizziness, Verified 10/12/22 04:11 severe amlodipine AdvReac Intermediate dizziness Verified 10/12/22 04:11 lisinopril AdvReac Intermediate Nagging Verified 10/12/22 04:11 dry cough Benzodiazepines AdvReac Other Verified 10/12/22 04:11 diazepam [From Valium] AdvReac Other Verified 10/12/22 04:11 Family History Father Myocardial infarction from [place] age 61 Heart disease Diabetes Sister Breast cancer Surgical History History of carpal tunnel release History of cataract surgery History of tonsillectomy history TMJ surgery history vein surgery S/P excision of Ramos's neuroma Social History household members: spouse housing: house Smoking Status: Never smoker alcohol intake: current alcohol intake frequency: a few times a month substance use type: does not use what type of physical activity do you participate in: none do you feel safe at home: Yes ROS Constitutional Constitutional: Denies chills, fatigue, fever(s) or malaise Eyes Eyes: Denies blurry vision ENT HEENT: Denies headache(s) or nasal discharge Cardiovascular Cardiovascular: Reports palpitations; Denies chest pain, dyspnea on exertion or syncope Respiratory/Chest Respiratory/Chest: Denies cough, shortness of breath at rest or shortness of breath with exertion Gastrointestinal Gastrointestinal: Denies constipation, diarrhea, nausea or vomiting Genitourinary Genitourinary: Denies dysuria Neurologic Neurologic: Denies focal weakness, numbness or tremor(s) Psychiatric Psychiatric: Denies anxiety or depression Vital Signs Vital Signs Vital Signs: 10/12/22 04:03 10/12/22 04:11 10/12/22 10:04 Temperature 97.6 F L 97.8 F Temperature Source Temporal Temporal Pulse Rate 68 61 Respiratory Rate 20 H 22 H Respiratory Effort Normal Respiratory Pattern Normal Blood Pressure 145/69 H 137/68 H Blood Pressure Mean 94 91 Pulse Ox 100 96 Oxygen Delivery Method Room Air 10/12/22 10:06 10/12/22 11:09 Temperature 97.8 F Temperature Source Oral Pulse Rate 60 Respiratory Rate 20 H Respiratory Effort Respiratory Pattern Blood Pressure 137/68 H Blood Pressure Mean 91 Pulse Ox 94 Oxygen Delivery Method Room Air Room Air Weight Weight: 162 lb 11.218 oz Body Mass Index (BMI) 27.1 Physical Exam Narrative General: Alert, Oriented x3, Cooperative, No apparent distress HEENT: Atraumatic, PERRLA, EOMI, Normocephalic Oral: Moist Mucosa Neck: Supple, No JVD Lungs: Clear to auscultation, Normal air movement, No rhonchi, No wheeze, No rales Cardiovascular: Regular rate, Regular Rhythm, Normal S1, Normal S2, No murmurs Abdomen: Soft, Non Tender, Non-Distended, No Hepato-splenomegaly Extremities: No edema, Capillary Refill Less than 3 Seconds Skin: Lower extremity varicose veins slightly tender to palpation Musculoskeletal: No Tenderness to Palpation of Joints or Extremities Neurological: Moves all extremities, sensory exam intact Psych/Mental Status: Normal Affect, Appropriate Results Lab / Micro Data Result Diagrams: 10/12/22 04:15 10/12/22 04:15 Labs: Laboratory Results - last 24 hr 10/12/22 04:15: Sodium 139, Potassium 4.8, Chloride 111 H, Carbon Dioxide 24.0, Anion Gap 4 L, BUN 24 H, Creatinine 0.80, Estim Creat Clear Calc 53.83, Est GFR (MDRD) Af Amer 90, Est GFR (MDRD) Non-Af 75, BUN/Creatinine Ratio 30.2 H, Glucose 106, Calcium 9.4, Troponin I High Sens 11, TSH 7.29 H 10/12/22 04:15: WBC 5.7, RBC 4.02 L, Hgb 12.4, Hct 39.8, MCV 99.0, MCH 30.8, MCHC 31.2 L, RDW Std Deviation 50.2 H, RDW Coeff of Dulce 13.8, Plt Count 166, MPV13.0 H, Immature Gran % (Auto) 0.300, Neut % (Auto) 44.1 L, Lymph % (Auto) 27.6,Bent % (Auto) 11.4 H, Eos % (Auto) 15.4 H, Baso % (Auto) 1.2 H, Absolute Neuts (auto) 2.5, Absolute Lymphs (auto) 1.58, Nucleated RBC % 0 10/12/22 04:15: PT Cancelled, INR Cancelled 10/12/22 05:08: PT Cancelled, INR Cancelled 10/12/22 06:03: PT Cancelled, INR Cancelled 10/12/22 06:39: PT 29.3 H, INR 2.8 10/12/22 06:39: Troponin I High Sens 31 Radiology Impression Chest X-Ray 10/12/22 04:30 IMPRESSION: No radiographic evidence of acute cardiopulmonary disease. Electronically Signed: Reji House MD at 5:50 EST , Assessment & Plan Assessment/Plan (1) Near syncope: (2) Paroxysmal atrial fibrillation: PLAN: Plan 1. A-fib ? She is on Coumadin and has been therapeutic for the last week therefore the left calf pain that she is concerned about is likely musculoskeletal and will forego at ultrasound at this time ? She is back to normal sinus rhythm ? We will continue with metoprolol twice daily dosing versus as needed and will monitor on telemetry ? TSH is elevated so we will obtain a free T3 and T4 ? Echo for tomorrow ? She reiterated that she wants to go home tomorrow if possible DVT: Coumadin Charges/Coding Visit Charges Inpatient E&M: 80304 Init Hosp L2 10/12/22 1408 <Electronically signed by Walker Perry MD> Cosigner Signature (if applicable): CC: JEANNIE Dale; Dr. Walker Perry MD~ Signed [facility] Work Phone: [phone]) 196-524602-19-[address] Akins [facility] October 12, 2022 7:53am Note Date/Time October 12, 2022 4:21am [facility] Medical Records Department [address] [place] [id number] Emergency Department Summary 10/12/22 MR#: [id number] Acct: [id number] Name: CADY BERUMEN Rep #:[id number] : 1945 76 From: Linda Akins MD PCP: JEANNIE Pires Status:REG E R Location: ED HPI History of Present Illness Chief Complaint: Weakness Detail of Chief Complaint: Weakness, diaphoresis, palpitations Informant: patient Narrative Narrative: Patient presents secondary to generalized weakness with diaphoresis. She is a history of paroxysmal A-fib. She states she felt herself go into A-fib tonight and when she does that she feels as if she is choking. She became sweaty and dizzy. She took a dose of her metoprolol which she reportedly only takes when she feels herself go into A-fib. She denies chest or back pain. [facility] Medical History Asthma Atrial tachycardia (10/14/18) Change in bowel habit Chronic venous insufficiency Essential (primary) hypertension Glaucoma long term (current) use of 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 Near syncope PRAMOD (obstructive sleep apnea) Osteoarthritis Osteopenia Paroxysmal atrial fibrillation Shortness of breath Varicose vein of leg Vestibular neuritis Home Medications cholecalciferol (vitamin D3) 25 mcg (1,000 unit) tablet 1,000 unit PO BID vitamin 03/10/16 [History Last Taken Unknown] latanoprost 0.005 % eye drops 1 drp EACH EYE [facility] eye health 03/10/16 [History Last Taken Unknown] coenzyme Q10 50 mg chewable tablet 30 mg PO DAILY 06/07/19 [History Last Taken Unknown] prasterone (dhea) 25 mg capsule (DHEA) 15 mg PO DAILY 07/27/20 [History Last Taken Unknown] timolol 0.25 % eye drops 1 drp ophthalmic (eye) BID 12/02/21 [History Last Taken Unknown] warfarin 5 mg tablet 5 mg PO .COMPLEX #135 tabs 12/20/21 [Rx Last Taken Unknown] metoprolol tartrate 25 mg tablet 12.5 mg PO BID #30 tabs 09/09/22 [Rx Last Taken Unknown] Allergy/AdvReac Type Severity Reaction Status Date / Time cat dander Allergy Mild congestion Verified 10/12/22 04:11 grass pollen Allergy Mild Cough, Verified 10/12/22 04:11 rhinitis house dust Allergy Mild Cough, Verified 10/12/22 04:11 rhinitis mold Allergy Mild Cough, Verified 10/12/22 04:11 rhinitis tree and shrub pollen Allergy Mild Cough, Verified 10/12/22 04:11 rhinitis Sulfa (Sulfonamide Allergy Itching Verified 10/12/22 04:11 Antibiotics) losartan AdvReac Severe dizziness, Verified 10/12/22 04:11 severe amlodipine AdvReac Intermediate dizziness Verified 10/12/22 04:11 lisinopril AdvReac Intermediate Nagging Verified 10/12/22 04:11 dry cough Benzodiazepines AdvReac Other Verified 10/12/22 04:11 diazepam [From Valium] AdvReac Other Verified 10/12/22 04:11 Family History Father Myocardial infarction from [place] age 61 Heart disease Diabetes Sister Breast cancer Surgical History History of carpal tunnel release History of cataract surgery History of tonsillectomy history TMJ surgery history vein surgery S/P excision of Ramos's neuroma Social History household members: spouse housing: house Smoking Status: Never smoker alcohol intake: current alcohol intake frequency: a few times a month substance use type: does not use what type of physical activity do you participate in: none do you feel safe at home: Yes ROS ROS ED Constitutional Constitutional ED: Denies chills or fever(s) Eyes Eyes: Denies change in vision or discharge from eye(s) ENT ENT ED: Denies discharge from eye(s), rhinorrhea or sore throat Cardiovascular Cardiovascular: Reports palpitations; Denies chest pain Respiratory/Chest Respiratory/Chest: Denies cough or dyspnea Gastrointestinal Gastrointestinal: Denies abdominal pain, nausea or vomiting Genitourinary Genitourinary ED: Denies dysuria Musculoskeletal Musculoskeletal: Denies back pain or extremity pain Integumentary Denies Abrasions or rash Neurologic Neurologic: Denies headache(s) or weakness Psychiatric Psychiatric: Denies anxiety or depression Allergic/Immunologic Allergic/Immunologic ED: Denies lip swelling or urticaria EXAM Physical Exam Const Vital Signs: 10/12/22 04:03 10/12/22 04:11 Temperature 97.6 F L Temperature Source Temporal Pulse Rate 68 Respiratory Rate 20 H Respiratory Effort Normal Respiratory Pattern Normal Blood Pressure 145/69 H Blood Pressure Mean 94 Pulse Ox 100 Positive well nourished and well developed General Appearance ED: well developed HEENT Reports normocephalic and head/scalp atraumatic Eyes PERRL and EOMs intact bilaterally Neck supple Chest Wall inspection of chest normal and palpation of chest normal Resp normal respiratory effort and clear to auscultation bilaterally Cardio regular rate and regular rhythm GI non-tender Auscultation: hypoactive bowel sounds Palpation: soft Extremity normal to inspection Neuro oriented x3 and no sensory deficits noted Sensorium / Orientation: alert Motor Exam: strength 5/5 throughout Psych Mood & Affect: anxious Skin no rashes or lesions noted MDM MDM MDM Narrative Medical decision making narrative: Patient placed on equipment monitor phototypesetting on arrival. She has been in sinus rhythm. EKG obtained. Portable chest x-ray ordered. Lab work obtained to evaluate for leukocytosis, anemia, electrolyte derangement. Troponin and TSH both obtained. Lab Data Attestation: I reviewed the patient's lab results. Labs: Laboratory Results - last 24 hr 10/12/22 10/12/22 10/12/22 04:15 04:15 04:15 WBC 5.7 RBC 4.02 L Hgb 12.4 Hct 39.8 MCV 99.0 MCH 30.8 MCHC 31.2 L RDW Std Deviation 50.2 H RDW Coeff of Dulce 13.8 Plt Count 166 MPV 13.0 H Immature Gran % (Auto) 0.300 Neut % (Auto) 44.1 L Lymph % (Auto) 27.6 Bent % (Auto) 11.4 H Eos % (Auto) 15.4 H Baso % (Auto) 1.2 H Absolute Neuts (auto) 2.5 Absolute Lymphs (auto) 1.58 Nucleated RBC % 0 PT Cancelled INR Cancelled Sodium 139 Potassium 4.8 Chloride 111 H Carbon Dioxide 24.0 Anion Gap 4 L BUN 24 H Creatinine 0.80 Estim Creat Clear Calc 53.83 Est GFR (MDRD) Af Amer 90 Est GFR (MDRD) Non-Af 75 BUN/Creatinine Ratio 30.2 H Glucose 106 Calcium 9.4 Troponin I High Sens 11 TSH 7.29 H 10/12/22 10/12/22 10/12/22 05:08 06:03 06:39 WBC RBC Hgb Hct MCV MCH MCHC RDW Std Deviation RDW Coeff of Dulce Plt Count MPV Immature Gran % (Auto) Neut % (Auto) Lymph % (Auto) Bent % (Auto) Eos % (Auto) Baso % (Auto) Absolute Neuts (auto) Absolute Lymphs (auto) Nucleated RBC % PT Cancelled Cancelled 29.3 H INR Cancelled Cancelled 2.8 Sodium Potassium Chloride Carbon Dioxide Anion Gap BUN Creatinine Estim Creat Clear Calc Est GFR (MDRD) Af Amer Est GFR (MDRD) Non-Af BUN/Creatinine Ratio Glucose Calcium Troponin I High Sens TSH 10/12/22 06:39 WBC RBC Hgb Hct MCV MCH MCHC RDW Std Deviation RDW Coeff of Dulce Plt Count MPV Immature Gran % (Auto) Neut % (Auto) Lymph % (Auto) Bent % (Auto) Eos % (Auto) Baso % (Auto) Absolute Neuts (auto) Absolute Lymphs (auto) Nucleated RBC % PT INR Sodium Potassium Chloride Carbon Dioxide Anion Gap BUN Creatinine Estim Creat Clear Calc Est GFR (MDRD) Af Amer Est GFR (MDRD) Non-Af BUN/Creatinine Ratio Glucose Calcium Troponin I High Sens 31 TSH Radiography Chest X-Ray - ED: 1 View, Read by ED Physician, Chronic Changes and No Infiltrates Diagnostic Testing: Clinical Impression(s) from Imaging Studies Chest X-Ray 10/12/22 04:30 IMPRESSION: No radiographic evidence of acute cardiopulmonary disease. Electronically Signed: Reji House MD at 5:50 EST , EKG Initial EKG: Attestation: I personally reviewed and interpreted this EKG as follows: Interpretation: Sinus Rhythm (Sinus at 65 with no acute ischemia. First-degree block noted with AL interval of 212.) Treatment and Re-Evaluation Narrative: CBC is unremarkable. Chemistry studies are unremarkable. Initial troponin is 11. TSH is elevated at 7.29, more indicative of hypothyroidism rather than hyperthyroidism. 2-hour delta troponin is obtained and has gone up by 20 points, the repeat being 31. Her INR is therapeutic at 2.8. Portable chest x-ray per my interpretation was chronic changes with no acute infiltrate. Radiology interpretation is reviewed. EKG is sinus at 65 with first-degree AV block. Patient did get up to try to go to the restroom while here. She made it to the door way but was very unsteady on her feet. She was assisted back to the bedside and a bedside commode was used. Given the patient's unsteadiness as well as a 20 point increase in her delta troponin, I did recommend observation for further testing and monitoring. I will speak with the hospitalist. Discharge Plan Triage Chief Complaint: Weakness ED Provider: Linda Akins Dx/Rx/DC Orders Clinical Impression: Palpitations, Near syncope Prescriptions: No Action prasterone (dhea) [DHEA] 25 mg capsule 15 mg PO DAILY timolol 0.25 % drops 1 drp ophthalmic (eye) BID latanoprost 1 DROP bottle 1 drp EACH EYE QHS cholecalciferol (vitamin D3) 1,000 UNIT tablet 1,000 unit PO BID coenzyme Q10 50 MG tablet,chewable 30 mg PO DAILY warfarin 5 mg tablet 5 mg PO .COMPLEX Qty: 135 4RF Protocol: Dose Management Condition: Thursday Dose/Route: 10 mg Instruction: 2 x 5 mg tablets Condition: Thursday Dose/Route: 7.5 mg Instruction: 1.5 x 5 mg tablets Condition: Thursday Dose/Route: 7.5 mg Instruction: 1.5 x 5 mg tablets Condition: Thursday Dose/Route: 7.5 mg Instruction: 1.5 x 5 mg tablets Condition: Dose/Route: 7.5 mg Instruction: 1.5 x 5 mg tablets Condition: Thursday Dose/Route: 7.5 mg Instruction: 1.5 x 5 mg tablets Condition: Thursday Dose/Route: 7.5 mg Instruction: 1.5 x 5 mg tablets Protocol Text: Adjustment Start Date: Thursday10/08/22 INR Value: 3.0 INR Date: 10/07/22 Recheck Date: 10/29/22 Rx Instructions: 5 mg PO take one and one half tablet (7.5mg) daily or as directed; metoprolol tartrate 25 mg tablet 12.5 mg PO BID Qty: 30 11RF Primary Care Provider: Elizabeth Dale Referrals: Elizabeth Dale PA [Primary Care Provider] - Disposition Disposition: Acute Care Hospital [facility] What to do if you have Problems For any increased pain, shortness of breath, bleeding, nausea or vomiting, chestpain, or any unexpected problems, contact your Primary Care Provider. Call [facility] ([phone]) or report to the closest Emergency Room. Call 911 if necessary. 10/12/22 0753 <Electronically signed by Linda Akins MD> Cosigner Signature (if applicable): CC: JEANNIE Dale ~ Signed [facility] Work Phone: [phone]) 830-365401-17-2023 Miscellaneous Notes* Telephone Encounter - Gigi Rouse LPN - 09/09/2022 10:45 AM EST Pt notified. She verbalized understanding. Gigi Rouse LPN * Telephone Encounter - Belen Robles Ma - 09/08/2022 12:16 PM EST Left message for patient to return call. Belen Robles Ma * Telephone Encounter - Elizabeth Dale PA-C - 09/08/2022 10:31 AM EST Inhaler not covered- may be expensive and can interfere a little with Timolol eye drops. Probably okay- just wanted her to know. The following approved medication requests have been transmitted electronically. Requested Prescriptions Signed Prescriptions Disp Refills Promethazine-DM (PHENERGAN-DM) 6.25-15 mg/5 mL syrup 120 mL 0 Sig: Take 5 mL by mouth four times daily as needed (primarily for sleep). Authorizing Provider: Elizabeth DALE albuterol HFA (PROVENTIL HFA, VENTOLIN HFA) 90 mcg/actuation inhaler 1 Each 0 Sig: Inhale 2 Puffs as instructed every 4 hours as needed for wheezing/shortness of breath. Authorizing Provider: Elizabeth DALE PA-C * Telephone Encounter - Nydia Encarnacion RN - 09/08/2022 9:52 AM EST Patient calls and states that she started with a runny nose on Thursday09/03/2022. Patient statesthat symptoms were worse on Thursday. [facility] and she tested positive for Covid. Patient states that she no longer has a fever. Patient states that she is short of breath when she gets in her coughing spells. Patient has been coughing up light yellow mucous. Patient does have a history of asthma. Patient does not have an inhaler anymore. Offered to schedule a virtual appointment with provider. Patient states that she cannot do a virtual appointment. Advised patient that if she becomes more short of breath then she needs to go to ED. Patient voiced understanding. Patient asking if provider can send in prescription for her cough and an inhaler. [facility] Please review and advise, Nydia Encarnacion RN [facility] Miscellaneous Notes* Telephone Encounter - Megan Rodriguez RN - 08/01/2022 4:24 PM EST Pt called and is notified of providers results and instructions. Pt voices understanding. Mailed labs to Pt, verified address. Megan Rodriguez RN documented in this encounterC[facility]06-03-2022 Miscellaneous Notes* Telephone Encounter - Nydia Encarnacion RN - 01/24/2022 9:44 AM EDT See telephone encounter from 01/24/2022 Nydia Encarnacion RN * Telephone Encounter - Nydia Encarnacion RN - 01/23/2022 4:50 PM EDT Patient calls and is asking about results for x rays that were done today? Patient asking what she should do to help support her knee? Please review and advise, Nydia Encarnacion RN documented in this encounterC[facility]06-03-2022 Miscellaneous Notes* Telephone Encounter - Megan Rodriguez RN - 01/24/2022 9:20 AM EDT Pt called and is notified of providers results and instructions. Pt voices understanding. Megan Rodriguez RN * Telephone Encounter - Ramila Rosas APRN.CNP - 01/24/2022 6:53 AM EDT Can you please call the patient and let her know that I reviewed her x-ray results. X-ray of the knee showed joint space narrowing and degenerative changes consistent with arthritis. Right is worse than the left knee. She may continue with the Tylenol as needed for pain. If pain does not improve recommend to follow-up with orthopedics for further evaluation. Please let me know if she has any questions. Thank you. Ramila Rosas APRN.ENOC documented in this encounterCincinnati [facility]06-02-2022 History of Present illness Narrative* Honorio Ingram RT(R) - 01/23/2022 11:20 AM EDT Radiology Service Progress Note PATIENT NAME: Cady Berumen DATE OF SERVICE: January 23, 2022 TIME: 11:18 AM PATIENT IDENTITY VERIFICATION COMPLETED USING TWO (2) IDENTIFIERS: Name and Date of confirmedby patient verbally. FALL SCREENING: Has the patient had 2 falls in the last year or 1 fall with injury or currently using an Ambulatory Assistive Device (Walker, Cane, Wheelchair, Crutches, etc.)? No PATIENT GENDER DATA: Female. status: : No status: NO. PATIENT RELEVANT IMPLANT DATA REVIEWED: Not Applicable RADIOLOGY DEPARTMENT: General X-ray: Exam(s) Completed: Lower Extremity X- Ray(s): Knee, AP / Lat / Tunne / Merchant Bilateral and Wt. Bearing PERIPHERAL IV DATA: Not applicable SIGNED BY: RT Loyda(R) January 23, 2022 11:18 AM documented in this encounterCincinnati [facility]05-31-2022 History of Present illness Narrative* Esha Ramos - 01/21/2022 3:[address] Buchanan, Cady was provided with Power step gel inserts, size 9, and instructed/educatedin its application, wear, and care. All questions were answered, and patient was able to demonstrate competence with the necessary skills to utilize the above equipment. Esha Ramos documented in this encounterCincinnati [facility]05-17-2022 History of Present illness Narrative* Elizabeth Dale PA-C - 01/07/2022 4:37 PM EDT 76 year old female with c/o fall with rib fracture Was bringing in 's box of catheters. Was pushing heavy boxes, slipped forward and hit first right knee and then left. threw put arm to stop fall and felt a "rip" in left chest wall. INR was 1.4 Stopped blood thinner for four days Restarted on Thursday. 01/05/22 [facility] ED visit Pulse went down to 87 and then up to 130: Patient took extra metoprolol which she has done in the past. [place] she should be evaluated. Usually takes lopressor and and heart beat goes down. Was noted the patient had prior fall as above. Home health nurse advised patient to hold her Coumadin after her fall. Vital signs 96.2 72 20 2- 1980 9-97% RA. Exam demonstrated no acute distress, tenderness in right chest wall without subcutaneous emphysema, regular rate and rhythm with heart. CBC was normal except RBC of 4.06, MCV of 100.5, slight abnormalities in differential which were not significant. CMP also within normal limits except for chloride of 110 and BUN/creatinine ratio 25.1. PT was 16.0, INR 1.3. Rib and chest x-ray demonstrated probable acute fracture of the right fourth rib, no pulmonary contusion pneumothorax or hemothorax identified. EKG demonstrated normal sinus rhythm with first-degree AV block, overall ventricular rate 70, no injury pattern, prolonged AL interval, QRS and QTc normal. Patient was recommended to resume Xarelto. Has had SOB with inclines, walking up hills. saw Dr. Simmons. As above 12/18/2021 exercise tolerance nuclear stress test: Achieved maximal heart rate 122 bpm: 84%predicted MHr, 4 METS no ischemia, no arrhythmias. Tracer uptake was uniform, no evidence of ischemia. LVEF 77%. Weight gain 10lbs of which she is frustrated that she cannot lose. HISTORIES FAMILY HISTORY Problem Relation Age of Onset Heart Father Allergies Sister Breast Cancer Sister age of 50's with diagnosis Prostate Cancer Brother PAST MEDICAL HISTORY Diagnosis Date A-fib (HCC) February 2021 Asthma Atrial tachycardia (HCC) 10/14/2018 BPPV (benign paroxysmal positional vertigo) 10/30/2014 Degenerative disc disease 08/10/2014 Mild Degenerative disc disease C6-C7 Mild Anterolisthesis C7-T-1`- See scanned document Essential hypertension, benign Fibromyalgia Glaucoma, open angle Hypothyroidism 10/14/2018 Varicose veins 08/25/2014 Varicose veins of other sites Venous stasis ulcer of ankle 07/18/2013 Vestibular neuronitis Vitamin D deficiency 09/20/2013 PAST SURGICAL HISTORY Procedure Laterality Date ARTHRP TEMPOROMANDIBULAR JOINT W/WO AUTOGRAFT 1987 CATARACT SURGERY, COMPLEX 2005 Rt & Lt COLONOSCOPY FLX DX W/COLLJ SPEC WHEN PFRMD 11/08/2010 Colonoscopy COLONOSCOPY FLX DX W/COLLJ SPEC WHEN PFRMD 08/23/2019 [facility]-R. Cebul repeat is not recommended NEUROPLASTY &/TRANSPOS MEDIAN NRV CARPAL TUNNE 1990 Carpal tunnel decomp-bilateral PAST SURGICAL HISTORY OF 08-21-05 EXCISION CYST LEFT MIDDLE FINGER PAST SURGICAL HISTORY OF right foot surgery- mortons neuroma PAST SURGICAL HISTORY OF 2013 left foot vein ablation TONSILLECTOMY PRIMARY/SECONDARY AGE 12/ 1962 Social History Tobacco Use Smoking status: Never Smoker Smokeless tobacco: Never Used Vaping Use Vaping Use: Never used Substance Use Topics Alcohol use: Not Currently Drug use: No ACTIVE PROBLEM LIST Allergic Rhinitis, Cause Unspecified Generalized Osteoarthrosis, Unspecified Site Venous Stasis Ulcer of Right Ankle Limited to Breakdown of Skin With Varicose Veins (Hcc) Vitamin D Deficiency Nocturia Hesitancy of Micturition Varicose Veins of Right Lower Extremity Bppv (Benign Paroxysmal Positional Vertigo) Vertigo of Central Origin Peripheral Vertigo, Unspecified Sprain of Sacroiliac Joint Irritable Bowel Syndrome With Both Constipation and Diarrhea Vestibular Neuronitis of Right Ear Varicose Veins of Left Lower Extremity With Pain Asthma Facet Arthritis of Cervical Region Paroxysmal Atrial Tachycardia (Hcc) Severe Episode of Recurrent Major Depressive Disorder, Without Psychotic Features (Hcc) Paroxysmal Atrial Fibrillation (Hcc) Essential Hypertension Sob (Shortness of Breath) Current Outpatient Medications Medication Sig Dispense Refill timolol maleate (TIMOPTIC) 0.5 % ophthalmic solution Use 1 Drop in both eyes twice daily. prasterone, DHEA, (DHEA ORAL) Take 15 mg by mouth once daily. warfarin (COUMADIN) 5 mg tablet Take 1 tablet by mouth daily except 7.5mg on ( [facility] (Patient taking differently: Take 7.5mg by mouth daily for now ) 30 tablet 11 ALPHA LIPOIC ACID ORAL Take by mouth. Cholecalciferol, Vitamin D3, 50 mcg (2,000 unit) cap Take 2 capsules by mouth once daily. 60 capsule 11 cyclobenzaprine (FLEXERIL) 5 mg tablet Take 1 tablet by mouth three times daily as needed for Muscle Spasm. 30 tablet 1 COQ10, UBIQUINOL, ORAL Take 30 mg by mouth. latanoprost (XALATAN) 0.005 % ophthalmic solution Use 1 Drop in both eyes daily at bedtime. No current facility-administered medications for this visit. SPIROMETRY Never done BP CONTROLLED (<130/80) Never done ADVANCE DIRECTIVE DISCUSSION Never done COVID-19 VACCINE(4 - Booster for Moderna series) due on 11/01/2021 EXAM: BP 120/72 Pulse 61 Wt 73 kg (161 lb) SpO2 95% BMI 25.99 kg/m Pleasant overweight adult woman in no acute distress. Alert and oriented all spheres. Normal affectand cognition. Speech normal. No deficits to learning or comprehension. Skin warm, dry, pink to lips and nailbeds. Normal turgor. Respirations regular and unlabored. HEENT: NCAT. No scleral icterus or conjunctival injection. TM's clear. Nose and oropharynx free from injection or lesion. Oral membranes moist and pink. No cervical lymph nodes. Thyroid non-tender, no masses, or enlargement. Carotids pulses 2+/4+ without bruits. No JVD with HOB at 30 degrees. Chest is normal shape. Patient is tender over the right fourth rib, no subcutaneous crepitation. Noevidence of bruising. Lungs are clear to all hooper with good air exchange through out. HRRR without murmur or gallop. No irregularity noted. Extrem: no clubbing or cyanosis. Edema: NONE. Extremities are warm and pink with prompt capillary refill. ASSESSMENT/PLAN: 1. Paroxysmal atrial fibrillation (HCC) - ICD9: 427.31, ICD10: I48.0 (primary diagnosis) Controlled currently. Continue current medications. Patient follows with cardiology 2. Essential hypertension, benign - ICD9: 401.1, ICD10: I10 - good control - Continue current medication(s) - Recommended regular aerobic exercise. - Recommend home blood pressure monitoring, to bring results in on next visit - Goal of BP <130/80 3. Closed fracture of one rib of right side with routine healing, subsequent encounter - ICD9: V54.19, ICD10: S22.31XD Brought incentive spirometry unit on which she demonstrated technique, reviewed parameters marked on the device, did well with good 3 seconds breath. Continue splint for laughing or coughing. Patient feels she does not need additional pain medication. Follow-up as needed in 6 months. documented in this encounterC[facility]01-14-2022 History of Present illness Narrative* Zoe Bonilla RT(R) - 09/06/2021 12:10 PM EST Radiology Service Progress Note PATIENT NAME: Cady Berumen DATE OF SERVICE: September 06, 2021 TIME: 12:23 PM PATIENT IDENTITY VERIFICATION COMPLETED USING TWO (2) IDENTIFIERS: Name and Date of confirmedby patient verbally. FALL SCREENING: Has the patient had 2 falls in the last year or 1 fall with injury or currently using an Ambulatory Assistive Device (Walker, Cane, Wheelchair, Crutches, etc.)? No PATIENT GENDER DATA: Female. status: : No status: NO. PATIENT RELEVANT IMPLANT DATA REVIEWED: Not Applicable RADIOLOGY DEPARTMENT: General X-ray: Exam(s) Completed: Lower Extremity X- Ray(s): Knee, AP / Lat / Tunne / Merchant Right and Wt. Bearing PERIPHERAL IV DATA: Not applicable SIGNED BY: RT Rangel(R) September 06, 2021 12:23 PM documented in this encounterCincinnati [facility]07-09-2014 History of Past illness Narrative* Problem Noted Date Resolved Date Frequency of urination 03/01/2014 5 Urgency of urination 03/01/2014 10/08/2014 Cellulitis 06/24/2013 10/08/2014 Ulcer of ankle 06/24/2013 10/08/2014 Rectal bleeding 09/06/2010 10/08/2014 Lumbago 11/16/2008 10/08/2014 Abdominal pain, unspecified site 11/23/2006 10/08/2014 GANGLION JOINT (Mucous cyst left hand 3rd digit ) 08/07/2005 10/08/2014 WOUND (NOT COMPLICATED) - OPEN FINGER(S) 005 10/08/2014 documented as of this encounter (statuses as of 01/07/2022) [facility] of [facility] illness Narrative* Problem Noted Date Resolved Date Frequency of urination 03/01/2014 5 Urgency of urination 03/01/2014 10/08/2014 Cellulitis 06/24/2013 10/08/2014 Ulcer of ankle 06/24/2013 10/08/2014 Rectal bleeding 09/06/2010 10/08/2014 Lumbago 11/16/2008 10/08/2014 Abdominal pain, unspecified site 11/23/2006 10/08/2014 GANGLION JOINT (Mucous cyst left hand 3rd digit ) 08/07/2005 10/08/2014 WOUND (NOT COMPLICATED) - OPEN FINGER(S) 10/08/2014 documented as of this encounter (statuses as of 01/21/2022) [facility] Narrative* Problem Noted Date Resolved Date Frequency of urination 03/01/2014 5 Urgency of urination 03/01/2014 10/08/2014 Cellulitis 06/24/2013 10/08/2014 Ulcer of ankle 06/24/2013 10/08/2014 Rectal bleeding 09/06/2010 10/08/2014 Lumbago 11/16/2008 10/08/2014 Abdominal pain, unspecified site 11/23/2006 10/08/2014 GANGLION JOINT (Mucous cyst left hand 3rd digit ) 08/07/2005 10/08/2014 WOUND (NOT COMPLICATED) - OPEN FINGER(S) 005 10/08/2014 documented as of this encounter (statuses as of 01/24/2022) [facility] Narrative* Problem Noted Date Resolved Date Frequency of urination 03/01/2014 5 Urgency of urination 03/01/2014 10/08/2014 Cellulitis 06/24/2013 10/08/2014 Ulcer of ankle 06/24/2013 10/08/2014 Rectal bleeding 09/06/2010 10/08/2014 Lumbago 11/16/2008 10/08/2014 Abdominal pain, unspecified site 11/23/2006 10/08/2014 GANGLION JOINT (Mucous cyst left hand 3rd digit ) 08/07/2005 10/08/2014 WOUND (NOT COMPLICATED) - OPEN FINGER(S) 2 005 10/08/2014 documented as of this encounter (statuses as of 01/24/2022) [facility] Narrative* Problem Noted Date Resolved Date Frequency of urination 03/01/2014 5 Urgency of urination 03/01/2014 10/08/2014 Cellulitis 06/24/2013 10/08/2014 Ulcer of ankle 06/24/2013 10/08/2014 Rectal bleeding 09/06/2010 10/08/2014 Lumbago 11/16/2008 10/08/2014 Abdominal pain, unspecified site 11/23/2006 10/08/2014 GANGLION JOINT (Mucous cyst left hand 3rd digit ) 08/07/2005 10/08/2014 WOUND (NOT COMPLICATED) - OPEN FINGER(S) 005 10/08/2014 documented as of this encounter (statuses as of 08/01/2022) [facility] Narrative* Problem Noted Date Resolved Date Frequency of urination 03/01/2014 5 Urgency of urination 03/01/2014 10/08/2014 Cellulitis 06/24/2013 10/08/2014 Ulcer of ankle 06/24/2013 10/08/2014 Rectal bleeding 09/06/2010 10/08/2014 Lumbago 11/16/2008 10/08/2014 Abdominal pain, unspecified site 11/23/2006 10/08/2014 GANGLION JOINT (Mucous cyst left hand 3rd digit ) 08/07/2005 10/08/2014 WOUND (NOT COMPLICATED) - OPEN FINGER(S) 005 10/08/2014 documented as of this encounter (statuses as of 09/09/2022) [facility] Narrative* Problem Noted Date Resolved Date Frequency of urination 03/01/2014 5 Urgency of urination 03/01/2014 10/08/2014 Cellulitis 06/24/2013 10/08/2014 Ulcer of ankle 06/24/2013 10/08/2014 Rectal bleeding 09/06/2010 10/08/2014 Lumbago 11/16/2008 10/08/2014 Abdominal pain, unspecified site 11/23/2006 10/08/2014 GANGLION JOINT (Mucous cyst left hand 3rd digit ) 08/07/2005 10/08/2014 WOUND (NOT COMPLICATED) - OPEN FINGER(S) 10/08/2014 documented as of this encounter (statuses as of 10/22/2022) [facility] Narrative* Problem Noted Date Resolved Date Frequency of urination 03/01/2014 5 Urgency of urination 03/01/2014 10/08/2014 Cellulitis 06/24/2013 10/08/2014 Ulcer of ankle 06/24/2013 10/08/2014 Rectal bleeding 09/06/2010 10/08/2014 Lumbago 11/16/2008 10/08/2014 Abdominal pain, unspecified site 11/23/2006 10/08/2014 GANGLION JOINT (Mucous cyst left hand 3rd digit ) 08/07/2005 10/08/2014 WOUND (NOT COMPLICATED) - OPEN FINGER(S) 10/08/2014 documented as of this encounter (statuses as of 10/22/2022) [facility] Narrative* Problem Noted Date Resolved Date Frequency of urination 03/01/2014 5 Urgency of urination 03/01/2014 10/08/2014 Cellulitis 06/24/2013 10/08/2014 Ulcer of ankle 06/24/2013 10/08/2014 Rectal bleeding 09/06/2010 10/08/2014 Lumbago 11/16/2008 10/08/2014 Abdominal pain, unspecified site 11/23/2006 10/08/2014 GANGLION JOINT (Mucous cyst left hand 3rd digit ) 08/07/2005 10/08/2014 WOUND (NOT COMPLICATED) - OPEN FINGER(S) 10/08/2014 documented as of this encounter (statuses as of 10/27/2022) [facility] Narrative* Problem Noted Date Resolved Date Frequency of urination 03/01/2014 5 Urgency of urination 03/01/2014 10/08/2014 Cellulitis 06/24/2013 10/08/2014 Ulcer of ankle 06/24/2013 10/08/2014 Rectal bleeding 09/06/2010 10/08/2014 Lumbago 11/16/2008 10/08/2014 Abdominal pain, unspecified site 11/23/2006 10/08/2014 GANGLION JOINT (Mucous cyst left hand 3rd digit ) 08/07/2005 10/08/2014 WOUND (NOT COMPLICATED) - OPEN FINGER(S) 10/08/2014 documented as of this encounter (statuses as of 10/28/2022) [facility] Narrative* Problem Noted Date Resolved Date Frequency of urination 03/01/2014 5 Urgency of urination 03/01/2014 10/08/2014 Cellulitis 06/24/2013 10/08/2014 Ulcer of ankle 06/24/2013 10/08/2014 Rectal bleeding 09/06/2010 10/08/2014 Lumbago 11/16/2008 10/08/2014 Abdominal pain, unspecified site 11/23/2006 10/08/2014 GANGLION JOINT (Mucous cyst left hand 3rd digit ) 08/07/2005 10/08/2014 WOUND (NOT COMPLICATED) - OPEN FINGER(S) 005 10/08/2014 documented as of this encounter (statuses as of 10/29/2022) [facility]* Problem Noted Date Resolved Date Frequency of urination 03/01/2014 5 Urgency of urination 03/01/2014 10/08/2014 Cellulitis 06/24/2013 10/08/2014 Ulcer of ankle 06/24/2013 10/08/2014 Rectal bleeding 09/06/2010 10/08/2014 Lumbago 11/16/2008 10/08/2014 Abdominal pain, unspecified site 11/23/2006 10/08/2014 GANGLION JOINT (Mucous cyst left hand 3rd digit ) 08/07/2005 10/08/2014 WOUND (NOT COMPLICATED) - OPEN FINGER(S) 10/08/2014 documented as of this encounter (statuses as of 11/28/2022) [facility]* Problem Noted Date Resolved Date Frequency of urination 03/01/2014 5 Urgency of urination 03/01/2014 10/08/2014 Cellulitis 06/24/2013 10/08/2014 Ulcer of ankle 06/24/2013 10/08/2014 Rectal bleeding 09/06/2010 10/08/2014 Lumbago 11/16/2008 10/08/2014 Abdominal pain, unspecified site 11/23/2006 10/08/2014 GANGLION JOINT (Mucous cyst left hand 3rd digit ) 08/07/2005 10/08/2014 WOUND (NOT COMPLICATED) - OPEN FINGER(S) 10/08/2014 documented as of this encounter (statuses as of 12/08/2022) [facility]* Problem Noted Date Resolved Date Frequency of urination 03/01/2014 5 Urgency of urination 03/01/2014 10/08/2014 Cellulitis 06/24/2013 10/08/2014 Ulcer of ankle 06/24/2013 10/08/2014 Rectal bleeding 09/06/2010 10/08/2014 Lumbago 11/16/2008 10/08/2014 Abdominal pain, unspecified site 11/23/2006 10/08/2014 GANGLION JOINT (Mucous cyst left hand 3rd digit ) 08/07/2005 10/08/2014 WOUND (NOT COMPLICATED) - OPEN FINGER(S) 005 10/08/2014 documented as of this encounter (statuses as of 12/31/2022) [facility]* Problem Noted Date Resolved Date Frequency of urination 03/01/2014 5 Urgency of urination 03/01/2014 10/08/2014 Cellulitis 06/24/2013 10/08/2014 Ulcer of ankle 06/24/2013 10/08/2014 Rectal bleeding 09/06/2010 10/08/2014 Lumbago 11/16/2008 10/08/2014 Abdominal pain, unspecified site 11/23/2006 10/08/2014 GANGLION JOINT (Mucous cyst left hand 3rd digit ) 08/07/2005 10/08/2014 WOUND (NOT COMPLICATED) - OPEN FINGER(S) 005 10/08/2014 documented as of this encounter (statuses as of 01/22/2023) [facility]* Problem Noted Date Resolved Date Frequency of urination 03/01/2014 5 Urgency of urination 03/01/2014 10/08/2014 Cellulitis 06/24/2013 10/08/2014 Ulcer of ankle 06/24/2013 10/08/2014 Rectal bleeding 09/06/2010 10/08/2014 Lumbago 11/16/2008 10/08/2014 Abdominal pain, unspecified site 11/23/2006 10/08/2014 GANGLION JOINT (Mucous cyst left hand 3rd digit ) 08/07/2005 10/08/2014 WOUND (NOT COMPLICATED) - OPEN FINGER(S) 2 10/08/2014 documented as of this encounter (statuses as of 01/23/2023) [facility]* Problem Noted Date Resolved Date Frequency of urination 03/01/2014 5 Urgency of urination 03/01/2014 10/08/2014 Cellulitis 06/24/2013 10/08/2014 Ulcer of ankle 06/24/2013 10/08/2014 Rectal bleeding 09/06/2010 10/08/2014 Lumbago 11/16/2008 10/08/2014 Abdominal pain, unspecified site 11/23/2006 10/08/2014 GANGLION JOINT (Mucous cyst left hand 3rd digit ) 08/07/2005 10/08/2014 WOUND (NOT COMPLICATED) - OPEN FINGER(S) 005 10/08/2014 documented as of this encounter (statuses as of 02/04/2023) [facility]* Problem Noted Date Resolved Date Frequency of urination 03/01/2014 5 Urgency of urination 03/01/2014 10/08/2014 Cellulitis 06/24/2013 10/08/2014 Ulcer of ankle 06/24/2013 10/08/2014 Rectal bleeding 09/06/2010 10/08/2014 Lumbago 11/16/2008 10/08/2014 Abdominal pain, unspecified site 11/23/2006 10/08/2014 GANGLION JOINT (Mucous cyst left hand 3rd digit ) 08/07/2005 10/08/2014 WOUND (NOT COMPLICATED) - OPEN FINGER(S) 2 005 10/08/2014 documented as of this encounter (statuses as of 02/13/2023) [facility]* Problem Noted Date Resolved Date Frequency of urination 03/01/2014 5 Urgency of urination 03/01/2014 10/08/2014 Cellulitis 06/24/2013 10/08/2014 Ulcer of ankle 06/24/2013 10/08/2014 Rectal bleeding 09/06/2010 10/08/2014 Lumbago 11/16/2008 10/08/2014 Abdominal pain, unspecified site 11/23/2006 10/08/2014 GANGLION JOINT (Mucous cyst left hand 3rd digit ) 08/07/2005 10/08/2014 WOUND (NOT COMPLICATED) - OPEN FINGER(S) 10/08/2014 documented as of this encounter (statuses as of 02/18/2023) [facility] of [facility]* Problem Noted Date Diagnosed Date Resolved Date Frequency of urination 03/01/201410/08 Urgency of urination 03/01/2014 015 Cellulitis 06/24/2013 10/08/2014 Ulcer of ankle 06/24/2013 10/08/2014 Rectal bleeding 09/06/2010 10/08/2014 Lumbago 11/16/2008 10/08/2014 Abdominal pain, unspecified site 11/23/2006 10/08/2014 GANGLION JOINT (Mucous cyst left hand 3rd digit ) 08/07/2005 10/08/2014 WOUND (NOT COMPLICATED) - OPEN FINGER(S) 06/14/2005 10/08/2014 documented as of this encounter (statuses as of 03/05/2023) [facility] History of Past illness Narrative* Problem Noted Date Diagnosed Date Resolved Date Frequency of urination 03/01/201410/08 Urgency of urination 03/01/2014 015 Cellulitis 06/24/2013 10/08/2014 Ulcer of ankle 06/24/2013 10/08/2014 Rectal bleeding 09/06/2010 10/08/2014 Lumbago 11/16/2008 10/08/2014 Abdominal pain, unspecified site 11/23/2006 10/08/2014 GANGLION JOINT (Mucous cyst left hand 3rd digit ) 08/07/2005 10/08/2014 WOUND (NOT COMPLICATED) - OPEN FINGER(S) 06/14/2005 10/08/2014 documented as of this encounter (statuses as of 03/10/2023) [facility] History of Past illness Narrative* Problem Noted Date Diagnosed Date Resolved Date Frequency of urination 03/01/201410/08 Urgency of urination 03/01/2014 015 Venous stasis ulcer of right ankle limited to breakdown of skin with varicose veins 07/18/2013 Cellulitis 06/24/2013 10/08/2014 Ulcer of ankle 06/24/2013 10/08/2014 Rectal bleeding 09/06/2010 10/08/2014 Lumbago 11/16/2008 10/08/2014 Abdominal pain, unspecified site 11/23/2006 10/08/2014 GANGLION JOINT (Mucous cyst left hand 3rd digit ) 08/07/2005 10/08/2014 WOUND (NOT COMPLICATED) - OPEN FINGER(S) 06/14/2005 10/08/2014 documented as of this encounter (statuses as of 06/10/2023) [facility] History of Past illness Narrative* Problem Noted Date Diagnosed Date Resolved Date Frequency of urination 03/01/201410/08 Urgency of urination 03/01/2014 015 Venous stasis ulcer of right ankle limited to breakdown of skin with varicose veins 07/18/2013 Cellulitis 06/24/2013 10/08/2014 Ulcer of ankle 06/24/2013 10/08/2014 Rectal bleeding 09/06/2010 10/08/2014 Lumbago 11/16/2008 10/08/2014 Abdominal pain, unspecified site 11/23/2006 10/08/2014 GANGLION JOINT (Mucous cyst left hand 3rd digit ) 08/07/2005 10/08/2014 WOUND (NOT COMPLICATED) - OPEN FINGER(S) 06/14/2005 10/08/2014 documented as of this encounter (statuses as of 06/10/2023) [facility] History of Past illness Narrative* Problem Noted Date Diagnosed Date Resolved Date Frequency of urination 03/01/201410/08 Urgency of urination 03/01/2014 015 Venous stasis ulcer of right ankle limited to breakdown of skin with varicose veins 07/18/2013 Cellulitis 06/24/2013 10/08/2014 Ulcer of ankle 06/24/2013 10/08/2014 Rectal bleeding 09/06/2010 10/08/2014 Lumbago 11/16/2008 10/08/2014 Abdominal pain, unspecified site 11/23/2006 10/08/2014 GANGLION JOINT (Mucous cyst left hand 3rd digit ) 08/07/2005 10/08/2014 WOUND (NOT COMPLICATED) - OPEN FINGER(S) 06/14/2005 10/08/2014 documented as of this encounter (statuses as of 06/26/2023) [facility] History of Past illness Narrative* Problem Noted Date Diagnosed Date Resolved Date Frequency of urination 03/01/201410/08 Urgency of urination 03/01/2014 015 Venous stasis ulcer of right ankle limited to breakdown of skin with varicose veins 07/18/2013 Cellulitis 06/24/2013 10/08/2014 Ulcer of ankle 06/24/2013 10/08/2014 Rectal bleeding 09/06/2010 10/08/2014 Lumbago 11/16/2008 10/08/2014 Abdominal pain, unspecified site 11/23/2006 10/08/2014 GANGLION JOINT (Mucous cyst left hand 3rd digit ) 08/07/2005 10/08/2014 WOUND (NOT COMPLICATED) - OPEN FINGER(S) 06/14/2005 10/08/2014 documented as of this encounter (statuses as of 07/15/2023) [facility] History of Past illness Narrative* Problem Noted Date Diagnosed Date Resolved Date Frequency of urination 03/01/201410/08 Urgency of urination 03/01/2014 015 Venous stasis ulcer of right ankle limited to breakdown of skin with varicose veins 07/18/2013 Cellulitis 06/24/2013 10/08/2014 Ulcer of ankle 06/24/2013 10/08/2014 Rectal bleeding 09/06/2010 10/08/2014 Lumbago 11/16/2008 10/08/2014 Abdominal pain, unspecified site 11/23/2006 10/08/2014 GANGLION JOINT (Mucous cyst left hand 3rd digit ) 08/07/2005 10/08/2014 WOUND (NOT COMPLICATED) - OPEN FINGER(S) 06/14/2005 10/08/2014 documented as of this encounter (statuses as of 08/06/2023) [facility] History of Past illness Narrative* Problem Noted Date Diagnosed Date Resolved Date Frequency of urination 03/01/201410/08 Urgency of urination 03/01/2014 015 Venous stasis ulcer of right ankle limited to breakdown of skin with varicose veins 07/18/2013 Cellulitis 06/24/2013 10/08/2014 Ulcer of ankle 06/24/2013 10/08/2014 Rectal bleeding 09/06/2010 10/08/2014 Lumbago 11/16/2008 10/08/2014 Abdominal pain, unspecified site 11/23/2006 10/08/2014 GANGLION JOINT (Mucous cyst left hand 3rd digit ) 08/07/2005 10/08/2014 WOUND (NOT COMPLICATED) - OPEN FINGER(S) 06/14/2005 10/08/2014 documented as of this encounter (statuses as of 10/22/2023) [facility] History of Past illness Narrative* Problem Noted Date Diagnosed Date Resolved Date Frequency of urination 03/01/201410/08 Urgency of urination 03/01/2014 015 Venous stasis ulcer of right ankle limited to breakdown of skin with varicose veins 07/18/2013 Cellulitis 06/24/2013 10/08/2014 Ulcer of ankle 06/24/2013 10/08/2014 Rectal bleeding 09/06/2010 10/08/2014 Lumbago 11/16/2008 10/08/2014 Abdominal pain, unspecified site 11/23/2006 10/08/2014 GANGLION JOINT (Mucous cyst left hand 3rd digit ) 08/07/2005 10/08/2014 WOUND (NOT COMPLICATED) - OPEN FINGER(S) 06/14/2005 10/08/2014 documented as of this encounter (statuses as of 11/09/2023) [facility] October 13, 2022 4:20pm Note Date/Time October 13, 2022 4:20pm [facility] Medical Records Department [facility] [address] Instructions for Home/Discharge Instructions 10/13/22 1618 MR#: [id number] Acct: [id number] Name: CADY BERUMEN Rep #:[id number] : 1945 76 From: Celena West MD PCP: JEANNIE Pires Status:ADM I NO Discharge Instructions Diet Discharge Diet: Low fat / Low cholesterol Activity Discharge Activity: Return to Normal Activity Weight Bearing Status: Weight bearing as tolerated Dressing / Incision Call your doctor if you observe: Fever of 101 or Higher, Shortness of breath, Dizziness, Swelling in the ankles, Chest pain and Increased palpitations (irregular heartbeat) Follow Up Care Test Results: Test results from this visit will be discussed in further detail at your follow- up appointment, if applicable. Discharge Plan Admission Admit Date/Time: 10/12/22 07:40 Primary Reason for Your Visit: afib with RVR Attending Provider: Celena West Primary Care Provider: Eilzabeth Dale Consulting Providers: Walker Perry Instructions Patient Instructions: AFib Dc Additional Instructions / Restrictions: follow up with PCP for repeat thyroid function tests. To be compliant with your metoprolol. 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 with music video producer within 1-2 weeks Discharge Orders/Prescriptions Prescriptions: Continued prasterone (dhea) [DHEA] 25 mg capsule 15 mg PO DAILY timolol 0.25 % drops 1 drp ophthalmic (eye) BID latanoprost 1 DROP bottle 1 drp EACH EYE QHS cholecalciferol (vitamin D3) 1,000 UNIT tablet 1,000 unit PO BID coenzyme Q10 50 MG tablet,chewable 30 mg PO DAILY warfarin 5 mg tablet 10 mg PO JONAS warfarin 5 mg tablet 7.5 mg PO TANIAUWETHFRSA Protocol: Dose Management Condition: Thursday Dose/Route: 10 mg Instruction: 2 x 5 mg tablets Condition: Thursday Dose/Route: 7.5 mg Instruction: 1.5 x 5 mg tablets Condition: Thursday Dose/Route: 7.5 mg Instruction: 1.5 x 5 mg tablets Condition: Thursday Dose/Route: 7.5 mg Instruction: 1.5 x 5 mg tablets Condition: Dose/Route: 7.5 mg Instruction: 1.5 x 5 mg tablets Condition: Thursday Dose/Route: 7.5 mg Instruction: 1.5 x 5 mg tablets Condition: Thursday Dose/Route: 7.5 mg Instruction: 1.5 x 5 mg tablets Protocol Text: Adjustment Start Date: Thursday10/08/22 INR Value: 3.0 INR Date: 10/07/22 Recheck Date: 10/29/22 metoprolol tartrate 25 mg tablet 12.5 mg PO BID alpha lipoic acid 50 mg Capsule 50 mg PO DAILY [facility] Lung 1 tab PO/SL DAILY Referrals / Follow Up: Elizabeth Dale PA [Primary Care Provider] - Within 2 Weeks Desire Weldon PA [Med Staff - [facility]] - Within 2 Weeks Disposition Disposition (needs filled in before D/C Order can be placed): Home, Self Care 10/13/22 1620<Electronically signed by Celena West MD>Celena West MD CC: JEANNIE Dale; Dr. Walker Perry MD ~ Signed [facility] Work Phone: Discharge summary Author Dr. West [facility] October 13, 2022 4:25pm Note Date/Time October 13, 2022 4:25pm [facility] Medical Records Department [address] [place] [id number] Discharge Summary 10/13/220 MR#: [id number] Acct: [id number] Name: CADY BERUMEN Rep #:[id number] : 1945 76 From: Celena West MD PCP: JEANNIE Pires Status:ADM I NO Location: [place] [id number] [id number] Providers Date of Admission: 10/12/22 Date of Discharge: 10/13/22 Primary Care Physician: JEANNIE Pires Reason For Visit: NEAR SYNCOPE Diagnosis Discharge Diagnosis (1) Near syncope: Status: Acute Code(s): R55 - Syncope and collapse (2) Paroxysmal atrial fibrillation: Status: Chronic Code(s): I48.0 - Paroxysmal atrial fibrillation Medications at Discharge Home Medications cholecalciferol (vitamin D3) 25 mcg (1,000 unit) tablet 1,000 unit PO BID vitamin 03/10/16 latanoprost 0.005 % eye drops 1 drp EACH EYE [facility] eye health 03/10/16 coenzyme Q10 50 mg chewable tablet 30 mg PO DAILY 06/07/19 prasterone (dhea) 25 mg capsule (DHEA) 15 mg PO DAILY 07/27/20 timolol 0.25 % eye drops 1 drp ophthalmic (eye) BID 12/02/21 [facility] Lung 1 tab PO/SL DAILY covid 10/12/22 alpha lipoic acid 50 mg capsule 50 mg PO DAILY supplement 10/12/22 metoprolol tartrate 25 mg tablet 12.5 mg PO BID afib 10/12/22 warfarin 5 mg tablet 7.5 mg PO MOTUWETHFRSA 10/12/22 warfarin 5 mg tablet 10 mg PO JONAS afib 10/12/22 Hospital Course Operations None Procedures 2-D Echocardiogram Summary of Care Provided Minutes Spent on Discharge: 40 Hospital Course: Patient is a 76-year-old female with a past medical history as outlined was admitted through the ED on 10/12/2022 with a complaint of palpitations and weakness. Patient has a known history of A-fib and felt that her heart rate wasfaster than normal and lasted longer than her previous episodes. She denied anychest pain though she did admit to increased sweating. She denied any nausea, vomiting or any other symptoms. She has been compliant with her metoprolol. Patient states she had COVID about a month ago and since then she has been feeling quite weak. Review of systems otherwise negative. She was admitted andmanaged for A-fib with RVR. Her heart rate subsequently improved and normalized. She was continued on a p.o. metoprolol. She had 2D echo which showed EF of 60% with stage I diastolic dysfunction and no regional wall motion abnormalities. This was not much different from 2D echo done in 2019. TSH donewas elevated at around 7 and free T4 was normal but free T3 was mildly suppressed. In light of her advanced age, no medications were initiated and patient counseled to follow-up with her PCP for repeat thyroid function test before any decision is made about initiation of medication. Patient seen and examined prior to discharge. She had no active complaints and had an uneventful night. Review of systems otherwise negative. Labs and vitalsreviewed. Home medication reviewed and reconciled. Physical Exam Const alert, oriented x3 and no apparent distress General Appearance: cooperative, comfortable and well kempt Orientation / Consciousness: awake Exam Limitations: no limitations HEENT normocephalic, head/scalp atraumatic, hearing grossly normal bilaterally and moist oral mucous membranes Mouth: oral and palatal mucosa normal Eyes PERRL, EOMs intact bilaterally and conjunctivae normal Neck no lymphadenopathy, supple and no JVD Resp normal respiratory effort, no retractions, no use of accessory muscles and clearto auscultation bilaterally Cardio regular rate, regular rhythm, S1 normal heart sound, S2 normal heart sound and no murmurs GI normal to inspection, nondistended, normoactive bowel sounds, soft to palpation,non-tender and non-distended Extremity normal to inspection, full ROM and no clubbing, cyanosis or edema Skin no rashes or lesions noted Neuro oriented x3, CN's II-XII intact bilaterally, moves all extremities and no focal motor deficits Sensorium / Orientation: awake and alert Motor Exam: strength 5/5 throughout Psych affect normal Weight / BMI Weight Weight: 150 lb Body Mass Index (BMI) 25.0 ABG / Lab / Microbiology Data Result Diagrams: 10/13/22 05:40 10/13/22 05:40 Laboratory: Laboratory Results - last 24 hr 10/13/22 05:40: WBC 4.9, RBC 3.68 L, Hgb 11.7 L, Hct 36.5 L, MCV 99.2 H, MCH 31.8, MCHC 32.1, RDW Std Deviation 50.1 H, RDW Coeff of Dulce 13.7, Plt Count 165,MPV 11.9, Immature Gran % (Auto) 0.400, Neut % (Auto) 48.3, Lymph % (Auto) 26.1,Bent % (Auto) 12.1 H, Eos % (Auto) 11.9 H, Baso % (Auto) 1.2 H, Absolute Neuts (auto) 2.3, Absolute Lymphs (auto) 1.27, Nucleated RBC % 0 10/13/22 05:40: Sodium 142, Potassium 3.8, Chloride 111 H, Carbon Dioxide 26.0, Anion Gap 5, BUN 20 H, Creatinine 0.66, Estim Creat Clear Calc 43.07, Est GFR (MDRD) Af Amer 111, Est GFR (MDRD) Non-Af 92, BUN/Creatinine Ratio 30.2 H, Glucose 97, Calcium 8.6, Troponin I High Sens 6, Free T4 1.00, Free T3 pg/dL 1.9L 10/13/22 05:40: PT 33.5 H, INR 3.3 Radiography Diagnostic Testing: Radiology Impression Echocardiogram 10/12/22 13:22 Interpretation Summary Normal LV size. Left ventricular systolic function is normal. The estimated ejection fraction is 60 %. Stage 1 diastolic dysfunction. Ordering Physician: Walker Perry Referring Physician: Sakina Dale Performed By: Chico Rosales RDCS, RVT D/C Instructions Discharge Diet: Low fat / Low cholesterol Discharge Activity: Return to Normal Activity Weight Bearing Status: Weight bearing as tolerated Call your doctor if you observe: Fever of 101 or Higher, Shortness of breath, Dizziness, Swelling in the ankles, Chest pain and Increased palpitations (irregular heartbeat) Meaningful Use Info Meaningful Use Diagnoses (Choose all that apply): None applicable Discharge Plan Admission Admit Date/Time: 10/12/22 07:40 Primary Reason for Your Visit: afib with RVR Attending Provider: Celena West Primary Care Provider: Elizabeth Dale Consulting Providers: Walker Perry Instructions Patient Instructions: AFib Dc Additional Instructions / Restrictions: follow up with PCP for repeat thyroid function tests. To be compliant with your metoprolol. 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 with music video producer within 1-2 weeks Discharge Orders/Prescriptions Prescriptions: Continued prasterone (dhea) [DHEA] 25 mg capsule 15 mg PO DAILY timolol 0.25 % drops 1 drp ophthalmic (eye) BID latanoprost 1 DROP bottle 1 drp EACH EYE QHS cholecalciferol (vitamin D3) 1,000 UNIT tablet 1,000 unit PO BID coenzyme Q10 50 MG tablet,chewable 30 mg PO DAILY warfarin 5 mg tablet 10 mg PO JONAS warfarin 5 mg tablet 7.5 mg PO MOTUWETHFRSA Protocol: Dose Management Condition: Thursday Dose/Route: 10 mg Instruction: 2 x 5 mg tablets Condition: Thursday Dose/Route: 7.5 mg Instruction: 1.5 x 5 mg tablets Condition: Thursday Dose/Route: 7.5 mg Instruction: 1.5 x 5 mg tablets Condition: Thursday Dose/Route: 7.5 mg Instruction: 1.5 x 5 mg tablets Condition: Dose/Route: 7.5 mg Instruction: 1.5 x 5 mg tablets Condition: Thursday Dose/Route: 7.5 mg Instruction: 1.5 x 5 mg tablets Condition: Thursday Dose/Route: 7.5 mg Instruction: 1.5 x 5 mg tablets Protocol Text: Adjustment Start Date: Thursday10/08/22 INR Value: 3.0 INR Date: 10/07/22 Recheck Date: 10/29/22 metoprolol tartrate 25 mg tablet 12.5 mg PO BID alpha lipoic acid 50 mg Capsule 50 mg PO DAILY [facility] 1 tab PO/SL DAILY Referrals / Follow Up: Elizabeth Dale PA [Primary Care Provider] - Within 2 Weeks Desire Weldon PA [Med Staff - [facility]] - Within 2 Weeks Disposition Disposition (needs filled in before D/C Order can be placed): Home, Self Care Charges/Coding Visit Charges Inpatient E&M: 70097 Disch Hosp >30min 10/13/22 1625 <Electronically signed by Celena West MD> Cosigner Signature (if applicable): CC: JEANNIE Dale; Dr. Celena West MD~ Signed [facility] Work Phone: evaluation noteNo assessment information available [facility] Work Phone: evaluation note* Diagnosis Onset Date Resolution Status long term (current) use of 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 acute PRAMOD (obstructive sleep apnea) acute Shortness of breath acute Essential (primary) hypertension chronic Paroxysmal atrial fibrillation chronic Daytime hypersomnia acute Asthma chronic [facility] Work Phone: Evaluation note* Diagnosis Paroxysmal atrial fibrillation (HCC)- Primary Atrial fibrillation Essential hypertension, benign Closed fracture of one rib of right side with routine healing, subsequent encounter [facility] Diagnosis Plantar fasciitis- Primary Plantar fascial fibromatosis [facility] Diagnosis Acute pain of both knees- Primary [facility] Diagnosis Onset Date Resolution Status Essential (primary) hypertension chronic Paroxysmal atrial fibrillation chronic [facility] Work Phone: Evaluation note* Diagnosis Onset Date Resolution Status Essential (primary) hypertension chronic Paroxysmal atrial fibrillation chronic COVID acute [facility] Work Phone: Evaluation note* Diagnosis Onset Date Resolution Status COVID acute Near syncope acute Palpitations acute [facility] Work Phone: Evaluation note* Diagnosis Onset Date Resolution Status COVID acute Near syncope acute Palpitations acute Paroxysmal atrial fibrillation chronic [facility] Work Phone: Evaluation note* Diagnosis Paroxysmal atrial tachycardia (HCC)- Primary Paroxysmal supraventricular tachycardia Paroxysmal atrial fibrillation (HCC) Atrial fibrillation documented in this encounter [facility] note* Diagnosis Paroxysmal atrial fibrillation (HCC)- Primary Atrial fibrillation Paroxysmal atrial tachycardia (HCC) Paroxysmal supraventricular tachycardia documented in this encounter [facility] note* Diagnosis Onset Date Resolution Status COVID acute Near syncope resolved Palpitations resolved Near syncope acute Essential (primary) hypertension [facility] Work Phone: Evaluation note* Diagnosis Essential hypertension- Primary Unspecified essential hypertension Paroxysmal atrial fibrillation (HCC) Atrial fibrillation Paroxysmal atrial tachycardia (HCC) Paroxysmal supraventricular tachycardia Syncope and collapse Hyperlipidemia, mixed Mixed hyperlipidemia Essential hypertension, benign Mild asthma without complication, unspecified whether persistent 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 Impaired fasting glucose Severe episode of recurrent major depressive disorder, without psychotic features ([facility]) documented in this encounter [facility] note* Diagnosis Foot injury, right, initial encounter- Primary documented in this encounter [facility] note* Diagnosis Onset Date Resolution Status Near syncope resolved Palpitations resolved Near syncope acute Essential (primary) hypertension [facility] Work Phone: Evaluation note* Diagnosis Toe dislocation, right, initial encounter- Primary Pain and swelling of toe, right Other acute osteomyelitis of right foot (HCC) Pain Generalized pain documented in this encounter [facility] note* Diagnosis Closed fracture of phalanx of right fourth toe, initial encounter- Primary Pain and swelling of toe, right documented in this encounter [facility] note* Diagnosis Onset Date Resolution Status Near syncope acute Essential (primary) hypertension [facility] Work Phone: Evaluation note* Diagnosis Onychomycosis- Primary Dermatophytosis of nail Pain in toe of left foot Pain in limb Pain in toe of right foot Pain in limb Pain and swelling of toe, right [facility] Diagnosis Paroxysmal atrial fibrillation (HCC)- Primary Atrial fibrillation [facility] Diagnosis Essential hypertension- Primary Unspecified essential hypertension Paroxysmal atrial fibrillation (HCC) Atrial fibrillation Paroxysmal atrial tachycardia Paroxysmal supraventricular tachycardia Varicose veins of left lower extremity with pain Varicose veins of lower extremities with other complications Mild asthma without complication, unspecified whether persistent Severe episode of recurrent major depressive disorder, without psychotic features (HCC) 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 Vertigo of central origin Hypothyroidism, acquired Unspecified hypothyroidism Grieving Adjustment disorder with depressed mood Hyperlipidemia, mixed Mixed hyperlipidemia [facility] Foot injury, right, initial encounter [facility] Diagnosis Right wrist pain- Primary Pain in joint, forearm [facility] Diagnosis Paroxysmal atrial fibrillation (HCC)- Primary Atrial fibrillation Paroxysmal atrial tachycardia (HCC) Paroxysmal supraventricular tachycardia [facility] Diagnosis Polyuria- Primary Polydipsia [facility] Diagnosis Onset Date Resolution Status Near syncope acute Paroxysmal atrial fibrillation acute Essential (primary) hypertension [facility] Work Phone: Evaluation note* Diagnosis Moderate episode of recurrent major depressive disorder (HCC)- Primary [facility] Diagnosis Neck pain- Primary Cervicalgia CHE (dyspnea on exertion) Other dyspnea and respiratory abnormality Near syncope Syncope and collapse Lightheadedness Dizziness and giddiness Essential hypertension Unspecified essential hypertension Paroxysmal atrial fibrillation (HCC) Atrial fibrillation Paroxysmal atrial tachycardia (HCC) Paroxysmal supraventricular tachycardia Pacemaker reprogramming/check Fitting and adjustment of cardiac pacemaker [facility] Diagnosis Bilateral carotid artery stenosis- Primary Occlusion and stenosis of carotid artery without mention of cerebral infarction Pacemaker reprogramming/check Fitting and adjustment of cardiac pacemaker [facility] Diagnosis Dysphagia, unspecified type- Primary Choking episode Other symptoms involving head and neck Insomnia, unspecified type Stress Other psychological or physical stress, not elsewhere classified Atrial fibrillation, unspecified type (HCC) Numbness and tingling Disturbance of skin sensation Vitamin B12 deficiency Other B-complex deficiencies Weight gain Abnormal weight gain Fatigue, unspecified type Iron deficiency Iron deficiency anemia, unspecified Pacemaker reprogramming/check Fitting and adjustment of cardiac pacemaker documented in this encounter [facility] note* Diagnosis Pre-operative examination- Primary Preoperative examination, unspecified Varicose veins of right lower extremity, unspecified whether complicated Mild asthma without complication, unspecified whether persistent Atrial tachycardia (HCC) Other specified cardiac dysrhythmias 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, without psychotic features (HCC) Moderate episode of recurrent major depressive disorder (HCC)- Primary Pacemaker reprogramming/check Fitting and adjustment of cardiac pacemaker documented in this encounter [facility] note* Diagnosis Pre-operative examination- Primary Preoperative examination, unspecified Varicose veins of right lower extremity, unspecified whether complicated Mild asthma without complication, unspecified whether persistent Atrial tachycardia (HCC) Other specified cardiac dysrhythmias 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, without psychotic features (HCC) Rib pain- Primary Chest pain, unspecified Muscle spasm Spasm of muscle Pacemaker reprogramming/check Fitting and adjustment of cardiac pacemaker documented in this encounter [facility] note* Diagnosis Pre-operative examination- Primary Preoperative examination, unspecified Varicose veins of right lower extremity, unspecified whether complicated Mild asthma without complication, unspecified whether persistent Atrial tachycardia (HCC) Other specified cardiac dysrhythmias 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, without psychotic features (HCC) Rib pain Chest pain, unspecified Muscle spasm Spasm of muscle Pacemaker reprogramming/check Fitting and adjustment of cardiac pacemaker documented in this encounter [facility] note* Diagnosis Pre-operative examination- Primary Preoperative examination, unspecified Varicose veins of right lower extremity, unspecified whether complicated Mild asthma without complication, unspecified whether persistent Atrial tachycardia (HCC) Other specified cardiac dysrhythmias 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, without psychotic features (HCC) Moderate episode of recurrent major depressive disorder (HCC)- Primary documented in this encounter [facility] note* Diagnosis Pre-operative examination- Primary Preoperative examination, unspecified Varicose veins of right lower extremity, unspecified whether complicated Mild asthma without complication, unspecified whether persistent Atrial tachycardia (HCC) Other specified cardiac dysrhythmias 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, without psychotic features (HCC) Anxiety and depression- Primary Dysthymic disorder Mixed hyperlipidemia Essential hypertension Unspecified essential hypertension documented in this encounter [facility] note* Diagnosis Pre-operative examination- Primary Preoperative examination, unspecified Varicose veins of right lower extremity, unspecified whether complicated Mild asthma without complication, unspecified whether persistent Atrial tachycardia (HCC) Other specified cardiac dysrhythmias 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, without psychotic features (HCC) Right wrist pain Pain in joint, forearm documented in this encounter [facility] note* Diagnosis Pre-operative examination- Primary Preoperative examination, unspecified Varicose veins of right lower extremity, unspecified whether complicated Mild asthma without complication, unspecified whether persistent Atrial tachycardia (HCC) Other specified cardiac dysrhythmias 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, without psychotic features (HCC) Pain and swelling of toe, right Pain Generalized pain documented in this encounter [facility] note* Diagnosis Pre-operative examination- Primary Preoperative examination, unspecified Varicose veins of right lower extremity, unspecified whether complicated Mild asthma without complication, unspecified whether persistent Atrial tachycardia (HCC) Other specified cardiac dysrhythmias 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, without psychotic features (HCC) Pain in toe of right foot Pain in limb documented in this encounter [facility] note* Diagnosis Pre-operative examination- Primary Preoperative examination, unspecified Varicose veins of right lower extremity, unspecified whether complicated Mild asthma without complication, unspecified whether persistent Atrial tachycardia (HCC) Other specified cardiac dysrhythmias 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, without psychotic features (HCC) Cough, unspecified type- Primary documented in this encounter [facility] note* Diagnosis Pre-operative examination- Primary Preoperative examination, unspecified Varicose veins of right lower extremity, unspecified whether complicated Mild asthma without complication, unspecified whether persistent Atrial tachycardia (HCC) Other specified cardiac dysrhythmias 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, without psychotic features (HCC) Acute pain of both knees documented in this encounter [facility] note* Diagnosis Pre-operative examination- Primary Preoperative examination, unspecified Varicose veins of right lower extremity, unspecified whether complicated Mild asthma without complication, unspecified whether persistent Atrial tachycardia (HCC) Other specified cardiac dysrhythmias 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, without psychotic features (HCC) Unstable knee, right 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 documented in this encounter [facility] note* Diagnosis Pre-operative examination- Primary Preoperative examination, unspecified Varicose veins of right lower extremity, unspecified whether complicated Mild asthma without complication, unspecified whether persistent Atrial tachycardia (HCC) Other specified cardiac dysrhythmias 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, without psychotic features (HCC) Abnormal swallowing- Primary documented in this encounter [facility] note* Diagnosis Pre-operative examination- Primary Preoperative examination, unspecified Varicose veins of right lower extremity, unspecified whether complicated Mild asthma without complication, unspecified whether persistent Atrial tachycardia (HCC) Other specified cardiac dysrhythmias 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, without psychotic features (HCC) Fall, sequela- Primary Balance disorder Other symptoms involving nervous and musculoskeletal systems Abnormality of gait due to impairment of balance Painful rib Chest pain, unspecified documented in this encounter [facility] note* Diagnosis Pre-operative examination- Primary Preoperative examination, unspecified Varicose veins of right lower extremity, unspecified whether complicated Mild asthma without complication, unspecified whether persistent Atrial tachycardia (HCC) Other specified cardiac dysrhythmias 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, without psychotic features (HCC) Fall, sequela Painful rib Chest pain, unspecified documented in this encounter [facility] note* Diagnosis Pre-operative examination- Primary Preoperative examination, unspecified Varicose veins of right lower extremity, unspecified whether complicated Mild asthma without complication, unspecified whether persistent Atrial tachycardia (HCC) Other specified cardiac dysrhythmias 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, without psychotic features (HCC) Urinary urgency- Primary Urgency of urination Urge incontinence Acute cough Paroxysmal atrial fibrillation (HCC) Atrial fibrillation Microscopic hematuria Acute cough documented in this encounter [facility] note* Diagnosis Pre-operative examination- Primary Preoperative examination, unspecified Varicose veins of right lower extremity, unspecified whether complicated Mild asthma without complication, unspecified whether persistent Atrial tachycardia (HCC) Other specified cardiac dysrhythmias 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, without psychotic features (HCC) Acute cough documented in this encounter [facility] note* Diagnosis Pre-operative examination- Primary Preoperative examination, unspecified Varicose veins of right lower extremity, unspecified whether complicated Mild asthma without complication, unspecified whether persistent Atrial tachycardia (HCC) Other specified cardiac dysrhythmias 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, without psychotic features (HCC) Onychomycosis- Primary Dermatophytosis of nail Diminished pulses in lower extremity Other symptoms involving cardiovascular system documented in this encounter [facility] note* Diagnosis Pre-operative examination- Primary Preoperative examination, unspecified Varicose veins of right lower extremity, unspecified whether complicated Mild asthma without complication, unspecified whether persistent Atrial tachycardia (HCC) Other specified cardiac dysrhythmias 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, without psychotic features (HCC) Pain in both knees, unspecified chronicity- Primary documented in this encounter [facility] note* Diagnosis Pre-operative examination- Primary Preoperative examination, unspecified Varicose veins of right lower extremity, unspecified whether complicated Mild asthma without complication, unspecified whether persistent Atrial tachycardia (HCC) Other specified cardiac dysrhythmias 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, without psychotic features (HCC) Balance disorder- Primary Other symptoms involving nervous and musculoskeletal systems 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 Memory change Memory loss Hematuria, unspecified type Paroxysmal atrial fibrillation (HCC) Atrial fibrillation documented in this encounter [facility] note* Diagnosis Pre-operative examination- Primary Preoperative examination, unspecified Varicose veins of right lower extremity, unspecified whether complicated Mild asthma without complication, unspecified whether persistent Atrial tachycardia (HCC) Other specified cardiac dysrhythmias 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, without psychotic features (HCC) Transient cerebral ischemia, unspecified type- Primary Balance disorder Other symptoms involving nervous and musculoskeletal systems Memory change Memory loss Weakness of both lower extremities Dizziness Dizziness and giddiness Weakness of both upper extremities documented in this encounter [facility] note* Diagnosis Pre-operative examination- Primary Preoperative examination, unspecified Varicose veins of right lower extremity, unspecified whether complicated Mild asthma without complication, unspecified whether persistent Atrial tachycardia (HCC) Other specified cardiac dysrhythmias 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, without psychotic features (HCC) Transient cerebral ischemia, unspecified type documented in this encounter [facility] note* Diagnosis Pre-operative examination- Primary Preoperative examination, unspecified Varicose veins of right lower extremity, unspecified whether complicated Mild asthma without complication, unspecified whether persistent (HCC) Atrial tachycardia (HCC) Other specified cardiac dysrhythmias 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, without psychotic features (HCC) SOB (shortness of breath)- Primary Shortness of breath documented in this encounter [facility] note* Diagnosis Pre-operative examination- Primary Preoperative examination, unspecified Varicose veins of right lower extremity, unspecified whether complicated Mild asthma without complication, unspecified whether persistent (HCC) Atrial tachycardia (HCC) Other specified cardiac dysrhythmias 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, without psychotic features (HCC) Paroxysmal atrial fibrillation (HCC) Atrial fibrillation Atrial flutter, unspecified type (HCC) Encounter for current long-term use of 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 Long-term (current) use of 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 Essential (primary) hypertension Unspecified essential [facility] Diagnosis Pre-operative examination- Primary Preoperative examination, unspecified Varicose veins of right lower extremity, unspecified whether complicated Mild asthma without complication, unspecified whether persistent (HCC) Atrial tachycardia (HCC) Other specified cardiac dysrhythmias 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, without psychotic features (HCC) Essential hypertension Unspecified essential hypertension Medication management Encounter for long-term (current) use of other medications documented in this encounter [facility] note* Diagnosis Pre-operative examination- Primary Preoperative examination, unspecified Varicose veins of right lower extremity, unspecified whether complicated Mild asthma without complication, unspecified whether persistent (HCC) Atrial tachycardia (HCC) Other specified cardiac dysrhythmias 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, without psychotic features (HCC) Chronic pain of both shoulders- Primary Pain in joint, shoulder region Neck pain Cervicalgia Skin lesion Unspecified disorder of skin and subcutaneous tissue Other fatigue Weight gain Abnormal weight gain Vitamin D deficiency Unspecified vitamin D deficiency Pacemaker reprogramming/check Fitting and adjustment of cardiac pacemaker [facility] Diagnosis Pre-operative examination- Primary Preoperative examination, unspecified Varicose veins of right lower extremity, unspecified whether complicated Mild asthma without complication, unspecified whether persistent (HCC) Atrial tachycardia (HCC) Other specified cardiac dysrhythmias 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, without psychotic features (HCC) Neck pain- Primary Cervicalgia Chronic pain of both shoulders Pain in joint, shoulder region Pacemaker reprogramming/check Fitting and adjustment of cardiac pacemaker [facility] Diagnosis Pre-operative examination- Primary Preoperative examination, unspecified Varicose veins of right lower extremity, unspecified whether complicated Mild asthma without complication, unspecified whether persistent (HCC) Atrial tachycardia (HCC) Other specified cardiac dysrhythmias 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 Your labs images were reassuring. No sign of damage to your organs. Your blood pressure arron stable. Please drink plenty of fluids and follow with your primary care physician for further evaluation and treatment Please take Tylenol (2 pills, 650 mg), ibuprofen (2 pills, 400 mg) every 6 hours as needed for pain and fever control. Please return to the emergency department if your symptoms change or worsen. Please follow with your primary care physician for further outpatient evaluation and management.[facility] Work Phone: Reason for referral (narrative)* Outpatient Procedure (Routine) - Authorized Specialty Diagnoses / Procedures Referred By Contac t Referred To [facility] Diagnoses Paroxysmal atrial tachycardia (HCC) Paroxysmal atrial fibrillation (HCC) Procedures ECG COMPLETE ECG ROUTINE ECG W/LEAST 12 LDS W/I&R Mynor Shirley MD [address] [place] [address] [facility] [place] [address] [place] [address] Referral ID Status Reason Start Date Expiration Date Visits Requested Visits Authorized [id number] Authorized Auto-Generat ed Referral 10/21/2022 10/21/2023 1 1 [facility] for referral (narrative)* Outpatient Procedure (Routine) - Authorized Specialty Diagnoses / Procedures Referred By Contac t Referred To [facility] Diagnoses Paroxysmal atrial fibrillation (HCC) Paroxysmal atrial tachycardia (HCC) Procedures ECG COMPLETE ECG ROUTINE ECG W/LEAST 12 LDS W/I&R Mynor Shirley MD [address] [place] [address] [facility] [place] [address] [place] [address] Referral ID Status Reason Start Date Expiration Date Visits Requested Visits Authorized [id number] Authorized Auto-Generat ed Referral 10/28/2022 10/28/2023 1 1 [facility] for referral (narrative)* Diagnostic Procedure Only (Routine) - Closed Specialty Diagnoses / Procedures Referred By Contac t Referred To Contact XR IMAGING Diagnoses Foot injury, right, initial encounter Procedures XR FOOT GENERAL 3V AP/LAT/OBL RIGHT RADEX FOOT COMPLETE MINIMUM 3 VIEWS Elizabeth Dale PA-C [address] [place] [address] Xr Imaging Referral ID Status Reason Start Date Expiration Date V isits Requested Visits Authorized [id number] Closed Auto-Generate d Referral 12/30/2022 01/29/2024 1 1 [facility] for referral (narrative)* Diagnostic Procedure Only (Routine) - Closed Specialty Diagnoses / Procedures Referred By Contac t Referred To Contact XR IMAGING Diagnoses Pain Procedures XR FOOT GENERAL 3V AP/LAT/OBL RIGHT RADEX FOOT COMPLETE MINIMUM 3 VIEWS Hild, Terri, DPM [address] [place] [address] Xr Imaging Referral ID Status Reason Start Date Expiration Date V isits Requested Visits Authorized [id number] Closed Auto-Generate d Referral 01/21/2023 02/20/2024 1 1 * MRI/CT (Urgent) - Pending Review Specialty Diagnoses / Procedures Referred By Contac t Referred To Contact MR IMAGING Diagnoses Pain and swelling of toe, right Other acute osteomyelitis of right foot (HCC) Procedures MRI FOOT/TOES WO IVCON RIGHT MRI LOWER EXTREM OTH/THN JT W/O CONTR MATRL Terri Gomez DPM [address] [place] [address] Mr Imaging Referral ID Status Reason Start Date Expiration Date Visits Requested Visits Authorized [id number] Pending Review Auto-Generat ed Referral 01/21/2023 02/20/2024 1 1 * Diagnostic Procedure Only (Routine) - Closed Specialty Diagnoses / Procedures Referred By Contac t Referred To Contact XR IMAGING Diagnoses Pain and swelling of toe, right Procedures XR FOOT GENERAL 3V AP/LAT/OBL RIGHT RADEX FOOT COMPLETE MINIMUM 3 VIEWS Terri Gomez DPM [address] [place] [address] Xr Imaging Referral ID Status Reason Start Date Expiration Date V isits Requested Visits Authorized [id number] Closed Auto-Generate d Referral 01/21/2023 02/20/2024 1 1 [facility] for referral (narrative)* Diagnostic Procedure Only (Routine) - Closed Specialty Diagnoses / Procedures Referred By Contac t Referred To Contact XR IMAGING Diagnoses Foot injury, right, initial encounter Procedures XR FOOT GENERAL 3V AP/LAT/OBL RIGHT RADEX FOOT COMPLETE MINIMUM 3 VIEWS Elizabeth Dale PA-C [address] [place] [address] [place] [address] Referral ID Status Reason Start Date Expiration Date V isits Requested Visits Authorized [id number] Closed Auto-Generate d Referral 12/30/2022 01/29/2024 1 1 [facility] for referral (narrative)* Outpatient Procedure (Routine) - Authorized Specialty Diagnoses / Procedures Referred By Contac t Referred To Contact [facility] [place] Diagnoses Paroxysmal atrial fibrillation (HCC) Paroxysmal atrial tachycardia (HCC) Procedures ECG COMPLETE ECG ROUTINE ECG W/LEAST 12 LDS W/I&R Fern, Mynor Shannon MD [address] [place] [address] [facility][Note 3] Vascular [address] [address] Referral ID Status Reason Start Date Expiration Date Visits Requested Visits Authorized [id number] Authorized Auto-Generat ed Referral 10/21/2023 10/20/2024 1 1 [facility] for referral (narrative)* Outpatient Procedure (Routine) - Authorized Specialty Diagnoses / Procedures Referred By Contac t Referred To Contact [facility] [place] Diagnoses CHE (dyspnea on exertion) Near syncope Lightheadedness Procedures ECHO ECHO TTHRC R-T 2D W/WOM-MODE COMPL SPEC&COLR D Nirali Almanza PA-C [address] [place] [address] [facility][Note 3] Vascular [address] [address] Referral ID Status Reason Start Date Expiration Date Visits Requested Visits Authorized [id number] Authorized Auto-Generat ed Referral 02/10/2024 02/09/2025 1 1 * Outpatient Procedure (Routine) - Authorized Specialty Diagnoses / Procedures Referred By Contac t Referred To Contact [facility] [place] Diagnoses Near syncope Lightheadedness Procedures US CAROTID ARTERIES CHRISTOPHER VAS LAB DUPLEX SCAN EXTRACRANIAL ART COMPL BI STUDY Nirali Almanza PA-C [address] [place] [address] [facility] [place] [address] [place] [address] Referral ID Status Reason Start Date Expiration Date Visits Requested Visits Authorized [id number] Authorized Auto-Generat ed Referral 02/10/2024 02/09/2025 1 1 * Physical Therapy/Occupational Therapy/Speech Therapy (Routine) - Authorized Specialty Diagnoses / Procedures Referred By Contac t Referred To Contact [facility] Diagnoses Neck pain Procedures CONSULT TO PHYSICAL THERAPY PHYSICAL THERAPY EVALUATION HIGH COMPLEX 45 MINS Nirali Almanza PA-C [address] [place] [address] [facility] [place] [address] [place] [address] Referral ID Status Reason Start Date Expiration Date Visits Requested Visits Authorized [id number] Authorized Auto-Generat ed Referral 08/24/2023 08/23/2024 75 75 * Consult, Test, Treat (Routine) - Authorized Specialty Diagnoses / Procedures Referred By Contac t Referred To Contact Cardiology Diagnoses Essential hypertension Paroxysmal atrial fibrillation (HCC) Procedures CONSULT TO CARDIOLOGY OFFICE/OUTPATIENT [facility] MDM 60 MINUTES Nirali Almanza PA-C [address] [place] [address] Referral ID Status Reason Start Date Expiration Date Visits Requested Visits Authorized [id number] Authorized PCP Requested Referral 02/10/2024 02/09/2025 1 1 [facility] for referral (narrative)* Diagnostic Procedure Only (Routine) - New Request Specialty Diagnoses / Procedures Referred By Contac t Referred To Contact XR IMAGING Diagnoses Dysphagia, unspecified type Choking episode Procedures XR ESOPHAGRAM RADIOLOGIC EXAM ESOPHAGUS SINGLE CONTRAST STUDY Moon Teixeira MD [address] [place] [address] [place] [address] Referral ID Status Reason Start Date Expiration Date Visits Requested Visits Authorized [id number] New Request Auto-Generat ed Referral 04/05/2024 05/05/2025 1 1 [facility] for referral (narrative)* Diagnostic Procedure Only (Routine) - New Request Specialty Diagnoses / Procedures Referred By Contac t Referred To Contact XR IMAGING Diagnoses Rib pain Muscle spasm Procedures XR RIBS 2V AP/OBL LEFT RADEX RIBS UNILATERAL 2 VIEWS Moon Teixeira MD [address] [place] [address] Xr Imaging [id number] Referral ID Status Reason Start Date Expiration Date Visits Requested Visits Authorized [id number] New Request Auto-Generat ed Referral 04/22/2024 05/22/2025 1 1 [facility] for referral (narrative)* Diagnostic Procedure Only (Routine) - Closed Specialty Diagnoses / Procedures Referred By Contac t Referred To Contact XR IMAGING Diagnoses Rib pain Muscle spasm Procedures XR RIBS 2V AP/OBL LEFT RADEX RIBS UNILATERAL 2 VIEWS Moon Teixeira MD [address] [place] [address] Xr Imaging [id number] Referral ID Status Reason Start Date Expiration Date V isits Requested Visits Authorized [id number] Closed Auto-Generate d Referral 04/22/2024 05/22/2025 1 1 [facility] for referral (narrative)* Outpatient Procedure (Routine) - Authorized Specialty Diagnoses / Procedures Referred By Contac t Referred To Contact [facility] Diagnoses Moderate episode of recurrent major depressive disorder (HCC) Procedures ECG COMPLETE ECG ROUTINE ECG W/LEAST 12 LDS W/I&R Gucci Emery, [place] [address] [facility] [address] [place] [address] Referral ID Status Reason Start Date Expiration Date Visits Requested Visits Authorized [id number] Authorized Auto-Generat ed Referral 05/03/2024 05/03/2025 1 1 [facility] for referral (narrative)* Diagnostic Procedure Only (Routine) - Closed Specialty Diagnoses / Procedures Referred By Contac t Referred To Contact XR IMAGING Diagnoses Right wrist pain Procedures XR WRIST GENERAL 3V PA/LAT/OBL RIGHT RADEX WRIST COMPLETE MINIMUM 3 VIEWS Patrizia Willis APRN.CNP [address] [place] [address] [place] [address] Referral ID Status Reason Start Date Expiration Date V isits Requested Visits Authorized [id number] Closed Auto-Generate d Referral 07/15/2023 08/13/2024 1 1 [facility] for referral (narrative)* Diagnostic Procedure Only (Routine) - Closed Specialty Diagnoses / Procedures Referred By Contac t Referred To Contact XR IMAGING Diagnoses Pain Procedures XR FOOT GENERAL 3V AP/LAT/OBL RIGHT RADEX FOOT COMPLETE MINIMUM 3 VIEWS Terri Gomez DPM [address] [place] [address] [place] [address] Referral ID Status Reason Start Date Expiration Date V isits Requested Visits Authorized [id number] Closed Auto-Generate d Referral 01/21/2023 02/20/2024 1 1 * Diagnostic Procedure Only (Routine) - Closed Specialty Diagnoses / Procedures Referred By Contac t Referred To Contact XR IMAGING Diagnoses Pain and swelling of toe, right Procedures XR FOOT GENERAL 3V AP/LAT/OBL RIGHT RADEX FOOT COMPLETE MINIMUM 3 VIEWS Terri Gomez DPM [address] [place] [id number] [place] [address] Referral ID Status Reason Start Date Expiration Date V isits Requested Visits Authorized [id number] Closed Auto-Generate d Referral 01/21/2023 02/20/2024 1 1 [facility] for referral (narrative)* Diagnostic Procedure Only (Routine) - Closed Specialty Diagnoses / Procedures Referred By Contac t Referred To Contact XR IMAGING Diagnoses Pain in toe of right foot Procedures XR FOOT GENERAL 3V AP/LAT/OBL RIGHT RADEX FOOT COMPLETE MINIMUM 3 VIEWS Terri Gomez, MAR[place] [address] [place] [address] [place] [address] Referral ID Status Reason Start Date Expiration Date V isits Requested Visits Authorized [id number] Closed Auto-Generate d Referral 02/03/2023 03/04/2024 1 1 [facility] for referral (narrative)* Diagnostic Procedure Only (Routine) - Closed Specialty Diagnoses / Procedures Referred By Contac t Referred To Contact XR IMAGING Diagnoses Acute pain of both knees Procedures XR KNEE GENERAL 4V AP BOTH/PA BOTH/LAT/MERC BILATERAL RADIOLOGIC EXAM KNEE COMPLETE 4/MORE VIEWS Ramila Rosas, FAST FOOD SERVER.FILE SYSTEM INSTALLER [address] [place] [address] [place] [address] Referral ID Status Reason Start Date Expiration Date V isits Requested Visits Authorized [id number] Closed Auto-Generate d Referral 01/23/2022 02/22/2023 1 1 [facility] for referral (narrative)* Diagnostic Procedure Only (Routine) - Closed Specialty Diagnoses / Procedures Referred By Contac t Referred To Contact XR IMAGING Diagnoses Unstable knee, right Vestibular neuronitis of right ear Procedures XR KNEE GENERAL 4V AP BOTH/PA BOTH/LAT/MERC RIGHT KNEE AP-WGT/LAT/MERCHANT Elizabeth Dale PA-C [address] [place] [address] [place] [address] Referral ID Status Reason Start Date Expiration Date V isits Requested Visits Authorized [id number] Closed Auto-Generate d Referral 09/06/2021 10/06/2022 1 1 [facility] for referral (narrative)* Diagnostic Procedure Only (Routine) - Closed Specialty Diagnoses / Procedures Referred By Contac t Referred To Contact XR IMAGING Diagnoses Fall, sequela Painful rib Procedures XR RIBS 2V AP/OBL LEFT RADEX RIBS UNILATERAL 2 VIEWS Moon Teixeira MD [address] [place] [address] [place] [address] Referral ID Status Reason Start Date Expiration Date V isits Requested Visits Authorized [id number] Closed Auto-Generate d Referral 06/27/2024 07/27/2025 1 1 [facility] for referral (narrative)* Outpatient Procedure (Routine) - Authorized Specialty Diagnoses / Procedures Referred By Contac t Referred To Contact [facility] Diagnoses Onychomycosis Diminished pulses in lower extremity Procedures PVR ANK PRESS [facility] NON-INVAS PHYSIOLOGIC STD EXTREMITY ART 2 LEVEL Daquan Buchanan [address] [address] [facility] [address] [place] [address] Referral ID Status Reason Start Date Expiration Date Visits Requested Visits Authorized [id number] Authorized Auto-Generat ed Referral 07/28/2024 07/28/2025 1 1 [facility] for referral (narrative)No reason for referral information availableW[facility] Work Phone: Reason for visit Narrative* Diagnostic Procedure Only (Routine) - Closed Specialty Diagnoses / Procedures Referred By Contac t Referred To Contact XR IMAGING Diagnoses Foot injury, right, initial encounter Procedures XR FOOT GENERAL 3V AP/LAT/OBL RIGHT RADEX FOOT COMPLETE MINIMUM 3 VIEWS Elizabeth Dale PA-C [address] [place] [address] [place] [address] Referral ID Status Reason Start Date Expiration Date V isits Requested Visits Authorized [id number] Closed Auto-Generate d Referral 12/30/2022 01/29/2024 1 1 [facility] for visit Narrative* Diagnostic Procedure Only (Routine) - Closed Specialty Diagnoses / Procedures Referred By Contac t Referred To Contact XR IMAGING Diagnoses Rib pain Muscle spasm Procedures XR RIBS 2V AP/OBL LEFT RADEX RIBS UNILATERAL 2 VIEWS Moon Teixeira MD [address] [place] [id number] [place] [address] Referral ID Status Reason Start Date Expiration Date V isits Requested Visits Authorized [id number] Closed Auto-Generate d Referral 04/22/2024 05/22/2025 1 1 [facility] for visit Narrative* Diagnostic Procedure Only (Routine) - Closed Specialty Diagnoses / Procedures Referred By Contac t Referred To Contact XR IMAGING Diagnoses Right wrist pain Procedures XR WRIST GENERAL 3V PA/LAT/OBL RIGHT RADEX WRIST COMPLETE MINIMUM 3 VIEWS Patrizia Willis APRN.CNP [address] [place] [id number] [place] [address] Referral ID Status Reason Start Date Expiration Date V isits Requested Visits Authorized [id number] Closed Auto-Generate d Referral 07/15/2023 08/13/2024 1 1 [facility] for visit Narrative* Diagnostic Procedure Only (Routine) - Closed Specialty Diagnoses / Procedures Referred By Contac t Referred To Contact XR IMAGING Diagnoses Pain and swelling of toe, right Procedures XR FOOT GENERAL 3V AP/LAT/OBL RIGHT RADEX FOOT COMPLETE MINIMUM 3 VIEWS Hild, Terri, DPM [address] [place] [address] [place] [address] Referral ID Status Reason Start Date Expiration Date V isits Requested Visits Authorized [id number] Closed Auto-Generate d Referral 01/21/2023 02/20/2024 1 1 [facility] for visit Narrative* Diagnostic Procedure Only (Routine) - Closed Specialty Diagnoses / Procedures Referred By Contac t Referred To Contact XR IMAGING Diagnoses Pain in toe of right foot Procedures XR FOOT GENERAL 3V AP/LAT/OBL RIGHT RADEX FOOT COMPLETE MINIMUM 3 VIEWS Hild, Terri, DPM [address] [place] [address] [place] [address] Referral ID Status Reason Start Date Expiration Date V isits Requested Visits Authorized [id number] Closed Auto-Generate d Referral 02/03/2023 03/04/2024 1 1 [facility] for visit Narrative* Diagnostic Procedure Only (Routine) - Closed Specialty Diagnoses / Procedures Referred By Contac t Referred To Contact XR IMAGING Diagnoses Acute pain of both knees Procedures XR KNEE GENERAL 4V AP BOTH/PA BOTH/LAT/MERC BILATERAL RADIOLOGIC EXAM KNEE COMPLETE 4/MORE VIEWS Ramila Rosas APRN.ENOC [address] [place] [address] [place] [address] Referral ID Status Reason Start Date Expiration Date V isits Requested Visits Authorized [id number] Closed Auto-Generate d Referral 01/23/2022 02/22/2023 1 1 [facility] for visit Narrative* Diagnostic Procedure Only (Routine) - Closed Specialty Diagnoses / Procedures Referred By Contac t Referred To Contact XR IMAGING Diagnoses Unstable knee, right Vestibular neuronitis of right ear Procedures XR KNEE GENERAL 4V AP BOTH/PA BOTH/LAT/MERC RIGHT KNEE AP-WGT/LAT/MERCHANT Elizabeth Dale PA-C [address] [place] [address] [place] [address] Referral ID Status Reason Start Date Expiration Date V isits Requested Visits Authorized [id number] Closed Auto-Generate d Referral 09/06/2021 10/06/2022 1 1 [facility] for visit Narrative* Diagnostic Procedure Only (Routine) - Closed Specialty Diagnoses / Procedures Referred By Contac t Referred To Contact XR IMAGING Diagnoses Fall, sequela Painful rib Procedures XR RIBS 2V AP/OBL LEFT RADEX RIBS UNILATERAL 2 VIEWS Moon Teixeira MD [address] [place] [address] [place] [address] Referral ID Status Reason Start Date Expiration Date V isits Requested Visits Authorized [id number] Closed Auto-Generate d Referral 06/27/2024 07/27/2025 1 [facility] (Routine) - Closed Specialty Diagnoses / Procedures Referred By Contac t Referred To Contact MR IMAGING Diagnoses Transient cerebral ischemia, unspecified type Procedures MRI BRAIN WO IVCON MRI BRAIN BRAIN STEM W/O CONTRAST MATERIAL Moon Teixeira MD [address] [facility] [place] [address] Phone: tel: fax: [place] [address] Referral ID Status Reason Start Date Expiration Date V isits Requested Visits Authorized [id number] Closed Auto-Generate d Referral 11/02/2024 12/01/2024 1 1 [facility] Summary Purpose Family History Relationship Condition Age at Onset Recorded Date/T georgina father Myocardial infarction Unknown Cardiac disease Unknown Diabetes mellitus Unknown sister Malignant neoplasm of breast Unknown Relationship Condition Age at Onset Recorded Date/T georgina Not Specified senior care current us e of anticoagulant therapy Unknown father Myocardial infarction Unknown Cardiac disease Unknown Diabetes mellitus Unknown sister Malignant neoplasm of breast Unknown Advance Directives Advance Directive Response Recorded Date/ Time Living Will No August 03 9:39am Power of Nutritional Services Director No August 03, 2020 9:39am Advance Directive Response Recorded Date/ Time Living Will No January 05, 2022 5 :40am Power of Nutritional Services Director No January 05, 2022 5:40am Documents on File Type Date Recorded 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 Advance Directive(s) 06/05/2020 4:06 PM Advance Directive(s) 05/05/2018 11:13 AM Documents on File Type Date Recorded 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 Advance Directive(s) 06/05/2020 4:06 PM Advance Directive(s) 05/05/2018 11:13 AM Advance Directive Response Recorded Date/ Time Living Will No January 05, 2022 4 :40am Power of Nutritional Services Director No January 05, 2022 4:40am Advance Directive Response Recorded Date/ Time Living Will No September 08 11:45am Power of Nutritional Services Director No September 08, 2022 11:45am Advance Directive Response Recorded Date/ Time Living Will No October 12 023 4:11am Power of Nutritional Services Director No October 12, 2022 4:11am Advance Directive Response Recorded Date/ Time Living Will No February 19th, 2 023 1:20pm Power of Nutritional Services Director No October 12, 2022 1:20pm Advance Directive Response Recorded Date/ Time Living Will No October 13, 2 023 10:59pm Power of Nutritional Services Director No October 13, 2022 10:59pm Advance Directive Response Recorded Date/ Time Living Will No October 13, 2 023 11:59pm Power of Nutritional Services Director No October 13, 2022 11:59pm Advance Directive Response Recorded Date/ Time Name of Medical Power of Nutritional Services Director traci August 09, 2023 3:54pm Living Will Yes August 09, 2 023 3:54pm Power of Nutritional Services Director Yes August 09, 2023 3:54pm Advance Directive Response Recorded Date/ Time Name of Medical Power of Nutritional Services Director traci August 09, 2023 4:54pm Living Will Yes August 09, 2 023 4:54pm Power of Nutritional Services Director Yes August 09, 2023 4:54pm Advance Directive Response Recorded Date/ Time Living Will Yes August 09, 2 023 4:54pm Power of Nutritional Services Director Yes August 09, 2023 4:54pm Advance Directive Response Recorded Date/ Time Living Will Yes April 05 1:12am Do you have a Healthcare Power of Nutritional Services Director? Yes April 05, 2024 1:12am Living Will Yes August 24 4:45am Do you have a Healthcare Power of Nutritional Services Director? Yes August 24, 2024 4:45am Living Will Yes September 23 10:04pm Do you have a Healthcare Power of Nutritional Services Director? Yes September 23, 2024 10:04pm Living Will Yes September 26 12:45pm Do you have a Healthcare Power of Nutritional Services Director? Yes September 26, 2024 12:45pm Name of Medical Power of Nutritional Services Director DAUGHTER September 26, 2024 12:45pm Advance Directive Response Recorded Date/ Time Living Will Yes August 24 4:45am Do you have a Healthcare Power of Nutritional Services Director? Yes August 24, 2024 4:45am Living Will Yes September 23 10:04pm Do you have a Healthcare Power of Nutritional Services Director? Yes September 23, 2024 10:04pm Living Will Yes September 26 12:45pm Do you have a Healthcare Power of Nutritional Services Director? Yes September 26, 2024 12:45pm Name of Medical Power of Nutritional Services Director DAUGHTER September 26, 2024 12:45pm Advance Directive Response Recorded Date/ Time Living Will Yes August 24 4:45am Do you have a Healthcare Power of Nutritional Services Director? Yes August 24, 2024 4:45am Living Will Yes September 23 10:04pm Do you have a Healthcare Power of Nutritional Services Director? Yes September 23, 2024 10:04pm Living Will No November 28, 2024 2:30pm Do you have a Healthcare Power of Nutritional Services Director? No November 28, 2024 2:30pm Living Will Yes September 26 12:45pm Do you have a Healthcare Power of Nutritional Services Director? Yes September 26, 2024 12:45pm Name of Medical Power of Nutritional Services Director DAUGHTER September 26, 2024 12:45pm Advance Directive Response Recorded Date/ Time Living Will Yes September 23 10:04pm Do you have a Healthcare Power of Nutritional Services Director? Yes September 23, 2024 10:04pm Living Will No November 28, 2024 2:30pm Do you have a Healthcare Power of Nutritional Services Director? No November 28, 2024 2:30pm Living Will Yes September 26 12:45pm Do you have a Healthcare Power of Nutritional Services Director? Yes September 26, 2024 12:45pm Name of Medical Power of Nutritional Services Director DAUGHTER September 26, 2024 12:45pm Living Will Yes November 21, 2024 9:42pm Do you have a Healthcare Power of Nutritional Services Director? Yes November 21, 2024 9:42pm Advance Directive Response Recorded Date/ Time Living Will Yes September 23 10:04pm Do you have a Healthcare Power of Nutritional Services Director? Yes September 23, 2024 10:04pm Living Will No November 28, 2024 2:30pm Do you have a Healthcare Power of Nutritional Services Director? No November 28, 2024 2:30pm Living Will Yes November 21, 2024 9:42pm Do you have a Healthcare Power of Nutritional Services Director? Yes November 21, 2024 9:42pm Living Will Yes January 21, 2025 8 :33pm Do you have a Healthcare Power of Nutritional Services Director? Yes January 21, 2025 8:33pm Do you have a Healthcare Power of Nutritional Services Director? No March 15, 2025 3:54pm Chief Complaint and Reason for Visit Chief Complaint E ORDERS E ORDERS E ORDERS R KNEE.VESTIBULAR NEURONITIS (ONLY WANTS [facility]) E ORDERS Chief Complaint E ORDERS E ORDERS R KNEE.VESTIBULAR NEURONITIS (ONLY WANTS [facility]) E ORDERS 9 MO F/U (NN PT) E ORDERS Obstructive sleep apnea DYSPNEA DYSPNEA Reason for Visit long term (current) use of 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 PRAMOD (obstructive sleep apnea) Shortness of breath Essential (primary) hypertension Paroxysmal atrial fibrillation Daytime hypersomnia Asthma Chief Complaint E ORDERS R KNEE.VESTIBULAR NEURONITIS (ONLY WANTS [facility]) E ORDERS 9 MO F/U (NN PT) E ORDERS Obstructive sleep apnea DYSPNEA DYSPNEA E ORDERS palpitations Reason for Visit senior care (current) use of 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 PRAMOD (obstructive sleep apnea) Shortness of breath Essential (primary) hypertension Paroxysmal atrial fibrillation Daytime hypersomnia Asthma Chief Complaint E ORDERS 9 MO F/U (NN PT) E ORDERS Obstructive sleep apnea DYSPNEA DYSPNEA E ORDERS palpitations E ORDERS E ORDERS Reason for Visit senior care (current) use of 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 PRAMOD (obstructive sleep apnea) Shortness of breath Essential (primary) hypertension Paroxysmal atrial fibrillation Daytime hypersomnia Asthma Chief Complaint 9 MO F/U (NN PT) E ORDERS Obstructive sleep apnea DYSPNEA DYSPNEA E ORDERS palpitations E ORDERS E ORDERS Reason for Visit senior care (current) use of 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 PRAMOD (obstructive sleep apnea) Shortness of breath Essential (primary) hypertension Paroxysmal atrial fibrillation Daytime hypersomnia Asthma Chief Complaint E ORDERS palpitations E ORDERS E ORDERS E ORDERS Chief Complaint E ORDERS E ORDERS E ORDERS Chief Complaint E ORDERS E ORDERS E ORDERS E ORDERS 6 M FU Reason for Visit Essential (primary) hypertension Paroxysmal atrial fibrillation Chief Complaint E ORDERS E ORDERS E ORDERS 6 M FU E ORDERS Reason for Visit Essential (primary) hypertension Paroxysmal atrial fibrillation Chief Complaint E ORDERS 6 M FU E ORDERS E ORDERS COUGH, CONGESTED, CHILLS/COVID PALP Reason for Visit Essential (primary) hypertension Paroxysmal atrial fibrillation COVID Chief Complaint E ORDERS E ORDERS COUGH, CONGESTED, CHILLS/COVID PALP E ORDERS NEAR SYNCOPE Reason for Visit COVID Near syncope Palpitations Chief Complaint E ORDERS E ORDERS COUGH, CONGESTED, CHILLS/COVID PALP E ORDERS NEAR SYNCOPE NEAR SYNCOPE NEAR SYNCOPE Reason for Visit COVID Near syncope Palpitations Paroxysmal atrial fibrillation Chief Complaint E ORDERS E ORDERS COUGH, CONGESTED, CHILLS/COVID PALP E ORDERS NEAR SYNCOPE NEAR SYNCOPE NEAR SYNCOPE syncope Reason for Visit COVID Near syncope Palpitations Paroxysmal atrial fibrillation Chief Complaint E ORDERS COUGH, CONGESTED, CHILLS/COVID PALP E ORDERS NEAR SYNCOPE NEAR SYNCOPE NEAR SYNCOPE syncope VERTIGO. RX HERE PT REQUESTED [facility] ONLY! E ORDERS Hospital FU Reason for Visit COVID Near syncope Palpitations Near syncope Essential (primary) hypertension Chief Complaint COUGH, CONGESTED, CH ILLS/COVID PALP E ORDERS NEAR SYNCOPE NEAR SYNCOPE NEAR SYNCOPE syncope VERTIGO. RX HERE PT REQUESTED [facility] ONLY! E ORDERS Hospital FU E ORDERS Reason for Visit COVID Near syncope Palpitations Near syncope Essential (primary) hypertension Chief Complaint E ORDERS NEAR SYNCOPE NEAR SYNCOPE NEAR SYNCOPE syncope VERTIGO. RX HERE PT REQUESTED [facility] ONLY! E ORDERS Hospital FU E ORDERS E ORDERS Reason for Visit Near syncope Palpitations Near syncope Essential (primary) hypertension Chief Complaint VERTIGO. RX HERE PT REQUESTED [facility] ONLY! E ORDERS Hospital FU E ORDERS E ORDERS E ORDERS Reason for Visit Near syncope Essential (primary) hypertension Chief Complaint E ORDERS E ORDERS E ORDERS E ORDERS Chief Complaint E ORDERS E ORDERS E ORDERS E ORDERS VERTIGO RX HERE Chief Complaint E ORDERS E ORDERS E ORDERS VERTIGO RX HERE E ORDERS Chief Complaint E ORDERS E ORDERS E ORDERS VERTIGO RX HERE E ORDERS VERTIGO RX HERE Chief Complaint E ORDERS E ORDERS VERTIGO RX HERE E ORDERS VERTIGO RX HERE E ORDERS Chief Complaint E ORDERS VERTIGO RX HERE E ORDERS VERTIGO RX HERE E ORDERS E ORDERS upper extremity RIGHT WRIST Chief Complaint E ORDERS VERTIGO RX HERE E ORDERS E ORDERS upper extremity RIGHT WRIST E ORDERS Chief Complaint E ORDERS upper extremity RIGHT WRIST E ORDERS E ORDERS 1 Y FU/PREV PFM Reason for Visit Near syncope Paroxysmal atrial fibrillation Essential (primary) hypertension Chief Complaint E ORDERS E ORDERS 1 Y FU/PREV PFM E ORDERS Reason for Visit Near syncope Paroxysmal atrial fibrillation Essential (primary) hypertension Chief Complaint E ORDERS VERTIGO RX HERE E ORDERS VERTIGO RX HERE E ORDERS E ORDERS upper extremity Chief Complaint Admit Date E ORDERS July 26, 2024 1 0:31am E ORDERS September 22, 2024 4 :48pm SOB, PALPITATIONS September 26, 2024 1 1:39am 2 ORDERING DOCTORS October 11, 2024 11:00am 1 Y FU October 13, 2024 11:26am DIZZINESS RX HERE November 04, 2024 2:3 0pm DYSPNEA November 11, 2024 1:0 0pm E ORDERS November 11, 2024 1:5 4pm Reason for Visit Admit Date senior care (current) use of 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 October 13, 2024 11:26am Paroxysmal atrial fibrillation October 13, 2024 11:26am Shortness of breath October 13, 2024 11:26am Essential (primary) hypertension 2024 11:26am Chief Complaint Admit Date E ORDERS July 26, 2024 1 0:31am E ORDERS September 22, 2024 4 :48pm SOB, PALPITATIONS September 26, 2024 1 1:39am 2 ORDERING DOCTORS October 11, 2024 11:00am 1 Y FU October 13, 2024 11:26am DIZZINESS RX HERE November 04, 2024 2:3 0pm DYSPNEA November 11, 2024 1:0 0pm E ORDERS November 18, 2024 4:0 2pm Chief Complaint Admit Date E ORDERS September 22, 2024 4 :48pm SOB, PALPITATIONS September 26, 2024 1 1:39am 2 ORDERING DOCTORS October 11, 2024 11:00am 1 Y FU October 13, 2024 11:26am DIZZINESS RX HERE November 04, 2024 2:3 0pm DYSPNEA November 11, 2024 1:0 0pm E ORDERS November 18, 2024 4:0 2pm Palpitations November 22, 2024 10:5 9am Chief Complaint Admit Date E ORDERS September 22, 2024 4 :48pm SOB, PALPITATIONS September 26, 2024 1 1:39am 2 ORDERING DOCTORS October 11, 2024 11:00am 1 Y FU October 13, 2024 11:26am DIZZINESS RX HERE November 04, 2024 2:3 0pm DYSPNEA November 11, 2024 1:0 0pm E ORDERS November 18, 2024 4:0 2pm Palpitations November 22, 2024 10:5 9am sob November 28, 2024 2:24 pm Chief Complaint Admit Date E ORDERS September 22, 2024 4 :48pm SOB, PALPITATIONS September 26, 2024 1 1:39am 2 ORDERING DOCTORS October 11, 2024 11:00am 1 Y FU October 13, 2024 11:26am DIZZINESS RX HERE November 04, 2024 2:3 0pm DYSPNEA November 11, 2024 1:0 0pm E ORDERS November 18, 2024 4:0 2pm Palpitations November 22, 2024 10:5 9am Palpitations November 22, 2024 11:1 6am sob November 28, 2024 2:24 pm Chief Complaint Admit Date SOB, PALPITATIONS September 26, 2024 1 1:39am 2 ORDERING DOCTORS October 11, 2024 11:00am 1 Y FU October 13, 2024 11:26am DIZZINESS RX HERE November 04, 2024 2:3 0pm DYSPNEA November 11, 2024 1:0 0pm E ORDERS November 18, 2024 4:0 2pm Palpitations November 22, 2024 10:5 9am Palpitations November 22, 2024 11:1 6am sob November 28, 2024 2:24 pm E ORDERS January 05, 2025 3:13p m Chief Complaint Admit Date E ORDERS November 18, 2024 4:0 2pm Palpitations November 22, 2024 10:5 9am Palpitations November 22, 2024 11:1 6am sob November 28, 2024 2:24 pm E ORDERS January 05, 2025 3:13p m E ORDERS March 08, 2025 9:58 am LOW BP March 15, 2025 2:38 pm Reason for Referral Specialty Diagnoses / Procedures Referred By Contac t Referred To Contact Orthopedics Diagnoses Acute pain of both knees Procedures CONSULT TO ORTHOPAEDICS OFFICE/OUTPATIENT NEW HIGH MDM 60-74 MINUTES Ramila Rosas, [employer]ST FO[employer] SERVER.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 INSTALLER [address] [place] [address] Referral ID Status Reason Start Date Expiration Date Visits Requested Visits Authorized [id number] Pending Review PCP Requested Referral 01/24/2022 01/24/2023 1 1 Specialty Diagnoses / Procedures Referred By Contac t Referred To Contact Diagnoses Right wrist pain Patrizia Willis, [employer]ST FOOD SERVER.FILE SYSTEM INSTALLER [address] [place] [id number] Referral ID Status Reason Start Date Expiration Date Visits Re quested Visits Authorized [id number] Closed 1 1 Specialty Diagnoses / Procedures Referred By Contac t Referred To Contact XR IMAGING Diagnoses Right wrist pain Procedures XR WRIST GENERAL 3V PA/LAT/OBL RIGHT RADEX WRIST COMPLETE MINIMUM 3 VIEWS Patrizia Willis [employer] FOOD SERVER.FILE SYSTEM INSTALLER [address] [place] [id number] [place] [address] Referral ID Status Reason Start Date Expiration Date V isits Requested Visits Authorized [id number] Closed Auto-Generate d Referral 07/15/2023 08/13/2024 1 1 Specialty Diagnoses / Procedures Referred By Contac t Referred To Contact Gastroenterology Diagnoses Abnormal swallowing Procedures CONSULT TO GASTROENTEROLOGY OFFICE/OUTPATIENT NEW HIGH MDM 60 MINUTES Moon Teixeira MD [address] [place] [address] Referral ID Status Reason Start Date Expiration Date Visits Requested Visits Authorized [id number] Authorized PCP Requested Referral 06/16/2025 1 1 Specialty Diagnoses / Procedures Referred By Contac t Referred To Contact [facility] Diagnoses Pain in both knees, unspecified chronicity Procedures CONSULT TO PHYSICAL THERAPY PHYSICAL THERAPY EVALUATION HIGH COMPLEX 45 MINS Older, ANANDA Tillman [address] [place] [address] [facility] [place] [address] [place] [address] Referral ID Status Reason Start Date Expiration Date Visits Requested Visits Authorized [id number] Pending Review Auto-Generat ed Referral 09/16/2024 09/15/2025 1 1 Additional Source Comments INFORMATION SOURCE (unrecogn ized section and content) DATE CREATED AUTHOR 04/26/2020 [facility] DATE CREATED AUTHOR AUTHOR'S ORGANIZ ATION 02/05/2023 [facility] DATE CREATED AUTHOR AUTHOR'S ORGANIZ ATION 01/14/2024 [facility] DATE CREATED AUTHOR AUTHOR'S ORGANIZ ATION 03/07/2025 [facility] DATE CREATED AUTHOR AUTHOR'S ORGANIZ ATION 03/12/2025 [facility] Goals (unrecognized section and content) Goals may be documented in a n alternate sectionGoals may be documented in an alternate sectionGoals may be documented in an alternate sectionGoals may be documented in an alternate sectionGoals may be documented in an alternate sectionGoals may be documented in an alternate sectionGoals may be documented in an alternate sectionGoals may be documented in an alternate sectionGoals may be documented in an alternate sectionGoals may be documented in an alternate sectionGoals may be documented in an alternate sectionGoals may be documented in an alternate sectionGoals may be documented in an alternate sectionGoals may be documented in an alternate sectionGoals may be documented in an alternate sectionGoals may be documented in an alternate sectionGoals may be documented in an alternate sectionGoals may be documented in an alternate sectionGoals may be documented in an alternate sectionGoals may be documented in an alternate sectionGoals may be documented in an alternate sectionGoals may be documented in an alternate sectionGoals may be documented in an alternate sectionGoals may be documented in an alternate sectionGoals may be documented in an alternate sectionGoals may be documented in an alternate sectionGoals may be documented in an alternate sectionGoals may be documented in an alternate sectionGoals may be documented in an alternate sectionGoals may be documented in an alternate sectionGoals may be documented in an alternate sectionGoals may be documented in an alternate sectionGoals may be documented in an alternate sectionGoals may be documented in an alternate section Source Comments (unrecognize d section and content) In the event this informatio n is protected by the Federal Confidentiality of Alcohol and Drug Abuse Patient Records regulations: The Federal rules restrict any use of the information to criminally investigate or prosecute any alcohol or drug abuse patient.[facility] the event this information is protected by the Federal Confidentiality of Alcohol and Drug Abuse Patient Records regulations: The Federal rules restrict any use of the information to criminally investigate or prosecute any alcohol or drug abuse patient.[facility] CenterIn the event this information is protected by the Federal Confidentiality of Alcohol and Drug Abuse Patient Records regulations: The Federal rules restrict any use of the information to criminally investigate or prosecute any alcohol or drug abuse patient.[facility] CenterIn the event this information is protected by the Federal Confidentiality of Alcohol and Drug Abuse Patient Records regulations: The Federal rules restrict any use of the information to criminally investigate or prosecute any alcohol or drug abuse patient.[facility] CenterIn the event this information is protected by the Federal Confidentiality of Alcohol and Drug Abuse Patient Records regulations: The Federal rules restrict any use of the information to criminally investigate or prosecute any alcohol or drug abuse patient.[facility] CenterIn the event this information is protected by the Federal Confidentiality of Alcohol and Drug Abuse Patient Records regulations: The Federal rules restrict any use of the information to criminally investigate or prosecute any alcohol or drug abuse patient.[facility] CenterIn the event this information is protected by the Federal Confidentiality of Alcohol and Drug Abuse Patient Records regulations: The Federal rules restrict any use of the information to criminally investigate or prosecute any alcohol or drug abuse patient.[facility] CenterIn the event this information is protected by the Federal Confidentiality of Alcohol and Drug Abuse Patient Records regulations: The Federal rules restrict any use of the information to criminally investigate or prosecute any alcohol or drug abuse patient.[facility] CenterIn the event this information is protected by the Federal Confidentiality of Alcohol and Drug Abuse Patient Records regulations: The Federal rules restrict any use of the information to criminally investigate or prosecute any alcohol or drug abuse patient.[facility] CenterIn the event this information is protected by the Federal Confidentiality of Alcohol and Drug Abuse Patient Records regulations: The Federal rules restrict any use of the information to criminally investigate or prosecute any alcohol or drug abuse patient.[facility] CenterIn the event this information is protected by the Federal Confidentiality of Alcohol and Drug Abuse Patient Records regulations: The Federal rules restrict any use of the information to criminally investigate or prosecute any alcohol or drug abuse patient.[facility] CenterIn the event this information is protected by the Federal Confidentiality of Alcohol and Drug Abuse Patient Records regulations: The Federal rules restrict any use of the information to criminally investigate or prosecute any alcohol or drug abuse patient.[facility] CenterIn the event this information is protected by the Federal Confidentiality of Alcohol and Drug Abuse Patient Records regulations: The Federal rules restrict any use of the information to criminally investigate or prosecute any alcohol or drug abuse patient.[facility] CenterIn the event this information is protected by the Federal Confidentiality of Alcohol and Drug Abuse Patient Records regulations: The Federal rules restrict any use of the information to criminally investigate or prosecute any alcohol or drug abuse patient.[facility] CenterIn the event this information is protected by the Federal Confidentiality of Alcohol and Drug Abuse Patient Records regulations: The Federal rules restrict any use of the information to criminally investigate or prosecute any alcohol or drug abuse patient.[facility] CenterIn the event this information is protected by the Federal Confidentiality of Alcohol and Drug Abuse Patient Records regulations: The Federal rules restrict any use of the information to criminally investigate or prosecute any alcohol or drug abuse patient.[facility] CenterIn the event this information is protected by the Federal Confidentiality of Alcohol and Drug Abuse Patient Records regulations: The Federal rules restrict any use of the information to criminally investigate or prosecute any alcohol or drug abuse patient.[facility] CenterIn the event this information is protected by the Federal Confidentiality of Alcohol and Drug Abuse Patient Records regulations: The Federal rules restrict any use of the information to criminally investigate or prosecute any alcohol or drug abuse patient.[facility] CenterIn the event this information is protected by the Federal Confidentiality of Alcohol and Drug Abuse Patient Records regulations: The Federal rules restrict any use of the information to criminally investigate or prosecute any alcohol or drug abuse patient.[facility] CenterIn the event this information is protected by the Federal Confidentiality of Alcohol and Drug Abuse Patient Records regulations: The Federal rules restrict any use of the information to criminally investigate or prosecute any alcohol or drug abuse patient.[facility] CenterIn the event this information is protected by the Federal Confidentiality of Alcohol and Drug Abuse Patient Records regulations: The Federal rules restrict any use of the information to criminally investigate or prosecute any alcohol or drug abuse patient.[facility] CenterIn the event this information is protected by the Federal Confidentiality of Alcohol and Drug Abuse Patient Records regulations: The Federal rules restrict any use of the information to criminally investigate or prosecute any alcohol or drug abuse patient.[facility] CenterIn the event this information is protected by the Federal Confidentiality of Alcohol and Drug Abuse Patient Records regulations: The Federal rules restrict any use of the information to criminally investigate or prosecute any alcohol or drug abuse patient.[facility] CenterIn the event this information is protected by the Federal Confidentiality of Alcohol and Drug Abuse Patient Records regulations: The Federal rules restrict any use of the information to criminally investigate or prosecute any alcohol or drug abuse patient.[facility] CenterIn the event this information is protected by the Federal Confidentiality of Alcohol and Drug Abuse Patient Records regulations: The Federal rules restrict any use of the information to criminally investigate or prosecute any alcohol or drug abuse patient.[facility] CenterIn the event this information is protected by the Federal Confidentiality of Alcohol and Drug Abuse Patient Records regulations: The Federal rules restrict any use of the information to criminally investigate or prosecute any alcohol or drug abuse patient.[facility] CenterIn the event this information is protected by the Federal Confidentiality of Alcohol and Drug Abuse Patient Records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 Specialty Start Date End Date Elizabeth Dale PA-C [address] [place], [place] [address] PCP - General Family Medicine 02/08/21 Pencils Washer Relationship Specialty Start Date End Date Elizabeth Dale PA-C [address] [place] [address] PCP - General Family Medicine 02/08/21 Pencils Washer Relationship Specialty Start Date End Date Elizabeth Dale PA-C [address] [place] [address] PCP - General Family Medicine 02/08/21 Mynor Shirley MD [address] [place] [address] Primary Staff Physician Cardiology 10/28/22 Pencils Washer Relationship Specialty Start Date End Date Elizabeth Dale PA-C [address] [place] [address] PCP - General Family Medicine 02/08/21 Mynor Shirley MD [address] [place] [address] Primary Staff Physician Cardiology 10/28/22 Team Status: Inactive Member Role Status Dates JEANNIE Rojas Primary Care Provider Active Dr. Ignacio Fay , DO Attending Provider, Emergency Provider Active Team Status: Active Member Role Status Dates JEANNIE Rojas Primary Care Provider, Attendi ng Provider Active Pencils Washer Relationship Specialty Start Date End Date Elizabeth Dale PA-C [address] [place] [address] PCP - General Family Medicine 02/08/21 Mynor Shirley MD [address] [place] [address] Primary Staff Physician Cardiology 10/28/22 Desire Weldon [address] [place] [address] 11/05/22 Pencils Washer Relationship Specialty Start Date End Date Elizabeth Dale PA-C [address] [place] [address] PCP - General Family Medicine 02/08/21 Mynor Shirley MD [address] [place] [address] Primary Staff Physician Cardiology 10/28/22 Desire Weldon [address] [place] [address] 11/05/22 Pencils Washer Relationship Specialty Start Date End Date Elizabeth Dale PA-C [address] [place] [address] PCP - General Family Medicine 02/08/21 Mynor Shirley MD [address] [place] [address] Primary Staff Physician Cardiology 10/28/22 Desire Weldon [address] [place] [address] 11/05/22 Pencils Washer Relationship Specialty Start Date End Date Elizabeth Dale PA-C [address] [place] [address] PCP - General Family Medicine 02/08/21 Mynor Shirley MD [address] [place] [address] Primary Staff Physician Cardiology 10/28/22 Desire Weldon [address] [place] [address] 11/05/22 Pencils Washer Relationship Specialty Start Date End Date Elizabeth Dale PA-C [address] [place] [address] PCP - General Family Medicine 02/08/21 Mynor Shirley MD [address] [place] [address] Primary Staff Physician Cardiology 10/28/22 Desire Weldon [address] [place] [address] 11/05/22 Pencils Washer Relationship Specialty Start Date End Date Elizabeth Dale PA-C [address] [place] [address] PCP - General Family Medicine 02/08/21 Mynor Shirley MD [address] [place] [address] Primary Staff Physician Cardiology 10/28/22 Desire Weldon [address] [place] [address], [place] [address] 11/05/22 Pencils Washer Relationship Specialty Start Date End Date Elizabeth Dale PA-C [address] [place] [address] PCP - General Family Medicine 02/08/21 Mynor Shirley MD [address] [place] [address] Primary Staff Physician Cardiology 10/28/22 Desire Weldon [address] [place] [address] 11/05/22 Pencils Washer Relationship Specialty Start Date End Date Elizabeth Dale PA-C [address] [place] [address] PCP - General Family Medicine 02/08/21 Mynor Shirley MD [address] [place] [address] Primary Staff Physician Cardiology 10/28/22 Desire Weldon [address] [place] [address], [place] [address] 11/05/22 Pencils Washer Relationship Specialty Start Date End Date Elizabeth Dale PA-C [address] [place] [address] PCP - General Family Medicine 02/08/21 Mynor Shirley MD [address] [place] [address] Primary Staff Physician Cardiology 10/28/22 Desire Weldon [address] [place] [address] 11/05/22 Team Status: Active Member Role Status Dates JEANNIE Rojas Primary Care Pro vider, Attending Provider, Referring Provider Active Pencils Washer Relationship Specialty Start Date End Date Elizabeth Dale PA-C [address] [place] [address] PCP - General Family Medicine 02/08/21 Mynor Shirley MD [address] [place] [address] Primary Staff Physician Cardiology 10/28/22 Desire Weldon [address] [place] [address] 11/05/22 Pencils Washer Relationship Specialty Start Date End Date Elizabeth Dale PA-C [address] [place] [address] PCP - General Family Medicine 02/08/21 Mynor Shirley MD [address] [place] [address] Primary Staff Physician Cardiology 10/28/22 Desire Weldon [address] [place] [address] 11/05/22 Team Status: Inactive Member Role Status Dates JEANNIE Rojas Primary Care Pro vider, Attending Provider, Referring Provider Active Team Status: Inactive Member Role Status Dates JEANNIE Rojas Primary Care Provider, Attendi ng Provider Active Pencils Washer Relationship Specialty Start Date End Date Elizabeth Dale PA-C [address] [place] [address] PCP - General Family Medicine 02/08/21 Mynor Shirley MD [address] [place] [address] Primary Staff Physician Cardiology 10/28/22 Desire Weldon [address] [place] [address] 11/05/22 Pencils Washer Relationship Specialty Start Date End Date Elizabeth Dale PA-C [address] [place] [address] PCP - General Family Medicine 02/08/21 Mynor Shirley MD [address] [place] [address] Primary Staff Physician Cardiology 10/28/22 Desire Weldon [address] [place] [address] 11/05/22 Team Status: Inactive Member Role Status JEANNIE Rangel Primary Care Provider, Referri Provider Active Pop Villanueva MD Attending Provider Active Pencils Washer Relationship Specialty Start Date End Date Elizabeth Dale PA-C [address] [place] [address] PCP - General Family Medicine 02/08/21 Mynor Shirley MD [address] [place] [address] Primary Staff Physician Cardiology 10/28/22 Desire Weldon [address] [place] [address] 11/05/22 Pencils Washer Relationship Specialty Start Date End Date Elizabeth Dale PA-C [address] [place] [address] PCP - General Family Medicine 02/08/21 Mynor Shirley MD [address] [place] [address] Primary Staff Physician Cardiology 10/28/22 Desire Weldon [address] [place] [address] 11/05/22 Pencils Washer Relationship Specialty Start Date End Date Elizabeth Dale PA-C [address] [place] [address] PCP - General Family Medicine 02/08/21 Mynor Shirley MD [address] [place] [address] Primary Staff Physician Cardiology 10/28/22 Desire Weldon [address] [place] [address], [place] [address] 11/05/22 Pencils Washer Relationship Specialty Start Date End Date Elizabeth Dale PA-C [address] [place] [address] PCP - General Family Medicine 02/08/21 Mynor Shirley MD [address] [place] [address] Primary Staff Physician Cardiology 10/28/22 Desire Weldon [address] [place] [address], [place] [address] 11/05/22 Pencils Washer Relationship Specialty Start Date End Date Elizabeth Dale PA-C [address] [place] [address] PCP - General Family Medicine 02/08/21 Mynor Shirley MD [address] [place] [address] Primary Staff Physician Cardiology 10/28/22 Desire Weldon [address] [place] [address] 11/05/22 Pencils Washer Relationship Specialty Start Date End Date Elizabeth Dale PA-C [address] [place] [address] PCP - General Family Medicine 02/08/21 Mynor Shirley MD [address] [place] [address] Primary Staff Physician Cardiology 10/28/22 Desire Weldon [address] [place] [address] 11/05/22 Pencils Washer Relationship Specialty Start Date End Date Elizabeth Dale PA-C [address] [place] [address] PCP - General Family Medicine 02/08/21 Mynor Shirley MD [address] [place] [address] Primary Staff Physician Cardiology 10/28/22 Dseire Weldon [address] [place] [address] 11/05/22 Pencils Washer Relationship Specialty Start Date End Date Moon Teixeira MD [address] [place] [address] PCP - General Internal Medicine 04/05/24 Mynor Shirley MD [address] [place] [address] Primary Staff Physician Cardiology 10/28/22 Desire Weldon [address] [place] [address] 11/05/22 Pencils Washer Relationship Specialty Start Date End Date Moon Teixeira MD [address] [place] [address] PCP - General Internal Medicine 04/05/24 Mynor Shirley MD [address] [place] [address] Primary Staff Physician Cardiology 10/28/22 Desire Weldon [address] [place] [address], [place] [address] 11/05/22 Pencils Washer Relationship Specialty Start Date End Date Moon Teixeira MD [address] [facility] [place] [address] PCP - General Internal Medicine 04/05/24 Mynor Shirley MD [address] [place] [address] Primary Staff Physician Cardiology 10/28/22 Desire Weldon [address] [place] [address], [place] [address] 11/05/22 Pencils Washer Relationship Specialty Start Date End Date Moon Teixeira MD [address] [facility] [place] [address] PCP - General Internal Medicine 04/05/24 Mynor Shirley MD [address] [place] [address] Primary Staff Physician Cardiology 10/28/22 Desire Weldon [address] [place] [address], [place] [address] 11/05/22 Pencils Washer Relationship Specialty Start Date End Date Moon Teixeira MD [address] [facility] [place] [address] PCP - General Internal Medicine 04/05/24 Mynor Shirley MD [address] [place] [address] Primary Staff Physician Cardiology 10/28/22 Shiraz Desire [address] [place] [address], [place] [address] 11/05/22 Pencils Washer Relationship Specialty Start Date End Date Moon Teixeira MD [address] [place] [address] PCP - General Internal Medicine 04/05/24 Mynor Shirley MD [address] [place] [address] Primary Staff Physician Cardiology 10/28/22 Shiraz Desire [address] [place] [address], [place] [address] 11/05/22 Pencils Washer Relationship Specialty Start Date End Date Elizabeth Dale PA-C [address] [place] [address] PCP - General Family Medicine 02/08/21 04/04/24 Mynor Shirley MD [address] [place] [address] Primary Staff Physician Cardiology 10/28/22 Shiraz Desire [address] [place] [address], [place] [address] 11/05/22 Pencils Washer Relationship Specialty Start Date End Date Elizabeth Dale PA-C [address] [place] [address] PCP - General Family Medicine 02/08/21 04/04/24 Mynor Shirley MD [address] [place] [address] Primary Staff Physician Cardiology 10/28/22 Shiraz Desire [address] [place] [address], [place] [address] 11/05/22 Pencils Washer Relationship Specialty Start Date End Date Elizabeth Dale PA-C [address] [place] [address] PCP - General Family Medicine 02/08/21 04/04/24 Mynor Shirley MD [address] [place] [address] Primary Staff Physician Cardiology 10/28/22 Desire Weldon [address] [place] [address] 11/05/22 Pencils Washer Relationship Specialty Start Date End Date Elizabeth Dale PA-C [address] [place] [address] PCP - General Family Medicine 02/08/21 04/04/24 Mynor Shirley MD [address] [place] [address] Primary Staff Physician Cardiology 10/28/22 Desire Weldon [address] [place] [address], [place] [address] 11/05/22 Pencils Washer Relationship Specialty Start Date End Date Moon Teixeira MD [address] [place] [address] PCP - General Internal Medicine 04/05/24 Mynor Shirley MD [address] [place] [address] Primary Staff Physician Cardiology 10/28/22 Desire Weldon [address] [place] [address], [place] [address] 11/05/22 Pencils Washer Relationship Specialty Start Date End Date Elizabeth Dale PA-C [address] [place] [address] PCP - General Family Medicine 02/08/21 04/04/24 Pencils Washer Relationship Specialty Start Date End Date Elizabeth Dale PA-C [address] [place] [address] PCP - General Family Medicine 02/08/21 04/04/24 Pencils Washer Relationship Specialty Start Date End Date Elizabeth Dale PA-C [address] [place] [address] PCP - General Family Medicine 02/08/21 04/04/24 Moon Teixeira MD [address] [place] [address] PCP - General Internal Medicine 04/05/24 Mynor Shirley MD [address] [place] [address] Primary Staff Physician Cardiology 10/28/22 Desire Weldon [address] [place] [address] 11/05/22 Pencils Washer Relationship Specialty Start Date End Date Moon Teixeira MD [address] [place] [address] PCP - General Internal Medicine 04/05/24 Mynor Shirley MD [address] [place] [address] Primary Staff Physician Cardiology 10/28/22 Desire Weldon [address] [place] [address] 11/05/22 Pencils Washer Relationship Specialty Start Date End Date Mono Teixeira MD [address] [place] [address] PCP - General Internal Medicine 04/05/24 Mynor Shirley MD [address] [place] [address] Primary Staff Physician Cardiology 10/28/22 Desire Weldon [address] [place] [address] 11/05/22 Pencils Washer Relationship Specialty Start Date End Date Moon Teixeira MD [address] [place] [address] PCP - General Internal Medicine 04/05/24 Mynor Shirley MD [address] [place] [address] Primary Staff Physician Cardiology 10/28/22 Desire Weldon [address] [place] [address], [place] [address] 11/05/22 Pencils Washer Relationship Specialty Start Date End Date Moon Teixeira MD [address] [place] [address] PCP - General Internal Medicine 04/05/24 Mynor Shirley MD [address] [place] [address] Primary Staff Physician Cardiology 10/28/22 Desire Weldon [address] [place] [address], [place] [address] 11/05/22 Pencils Washer Relationship Specialty Start Date End Date Moon Teixeira MD [address] [place] [address] PCP - General Internal Medicine 04/05/24 Mynor Shirley MD [address] [place] [address] Primary Staff Physician Cardiology 10/28/22 Desire Weldon [address] [place] [address] 11/05/22 Chico Elizabeth PA-C [address] [place] [address] Double Needle Stitcher Family Medicine 07/31/24 José Miguel Saldaña APRN.FILE SYSTEM INSTALLER [address] [place] [address] Double Needle Stitcher Internal Medicine 07/31/24 Yaa Ashby PA-C [address] [place] [address] [facility] 07/31/24 Pencils Washer Relationship Specialty Start Date End Date Moon Teixeira MD [address] [place] [address] PCP - General Internal Medicine 04/05/24 Mynor Shirley MD [address] [place] [address] Primary Staff Physician Cardiology 10/28/22 Desire Weldon [address] [place] [address] 11/05/22 Chico Elizabeth PA-C [address] [place] [address] Double Needle Stitcher Family Medicine 07/31/24 José Miguel Saldaña APRN.FILE SYSTEM INSTALLER [address] [place] [address] Double Needle Stitcher Internal Medicine 07/31/24 Yaa Ashby PA-C [address] [place] [address] Double Needle Stitcher Family Medicine 07/31/24 Pencils Washer Relationship Specialty Start Date End Date Moon Teixeira MD [address] [place] [address] PCP - General Internal Medicine 04/05/24 Mynor Shirley MD [address] [place] [address] Primary Staff Physician Cardiology 10/28/22 Desire Weldon [address] [place] [address] 11/05/22 Chico Elizabeth PA-C [address] [place] [address] Double Needle Stitcher Family Medicine 07/31/24 José Miguel Saldaña APRN.CNP [address] [place] [address] Double Needle Stitcher Internal Medicine 07/31/24 Yaa Ashby PA-C [address] [place] [address] Double Needle Stitcher Family [facility] 07/31/24 Pencils Washer Relationship Specialty Start Date End Date Moon Teixeira MD [address] [place] [address] PCP - General Internal Medicine 04/05/24 Mynor Shirley MD [address] [place] [address] Primary Staff Physician Cardiology 10/28/22 Desire Weldon [address] [place] [address] 11/05/22 Chico Elizabeth PA-C [address] [place] [address] Double Needle Stitcher Family [facility] 07/31/24 José Miguel Saldaña APRN.FILE SYSTEM INSTALLER [address] [place] [address] Double Needle Stitcher Internal Medicine 07/31/24 Yaa Ashby PA-C [address] [place] [address] [facility] 07/31/24 Pencils Washer Relationship Specialty Start Date End Date Moon Teixeira MD [address] [place] [address] PCP - General Internal Medicine 04/05/24 Mynor Shirley MD [address] [place] [address] Primary Staff Physician Cardiology 10/28/22 Desire Weldon [address] [place] [address] 11/05/22 Chico Elizabeth PA-C [address] [place] [address] [facility] 07/31/24 José Miguel Saldaña APRN.FILE SYSTEM INSTALLER [address] [place] [address] [facility] Internal Medicine 07/31/24 Yaa Ashby PA-C [address] [place] [address] [facility] 07/31/24 Pencils Washer Relationship Specialty Start Date End Date Moon Teixeira MD [address] [place] [address] PCP - General Internal Medicine 04/05/24 Mynor Shirley MD [address] [place] [address] Primary Staff Physician Cardiology 10/28/22 Desire Weldon [address] [place] [address] 11/05/22 Chico Elizabeth PAYung [address] [place] [address] [facility] Family [facility] 07/31/24 José Miguel Saldaña APRN.CNP [address] [place] [address] Double Needle Stitcher Internal Medicine 07/31/24 Yaa Ashby PA-C [address] [place] [address] [facility] 07/31/24 Pencils Washer Relationship Specialty Start Date End Date Moon Teixeira MD [address] [place] [address] PCP - General Internal Medicine 04/05/24 Mynor Shirley MD [address] [place] [address] Primary Staff Physician Cardiology 10/28/22 Desire Weldon [address] [place] [address] 11/05/22 Chico Elizabeth PA-C [address] [place] [address] [facility] 07/31/24 José Miguel Saldaña APRN.FILE SYSTEM INSTALLER [address] [place] [address] [facility] Internal Medicine 07/31/24 Yaa Ashby PA-C [address] [place], [place] [address] [facility] 07/31/24 Pencils Washer Relationship Specialty Start Date End Date Moon Teixeira MD [address] [place], [place] [address] PCP - General Internal Medicine 04/05/24 Mynor Shirley MD [address] [place] [address] Primary Staff Physician Cardiology 10/28/22 Desire Weldon [address] [place] [address] 11/05/22 Chico Elizabeth PA-C [address] [place] [address] [facility] 07/31/24 José Miguel Saldaña APRN.FILE SYSTEM INSTALLER [address] [place] [address] [facility] Internal Medicine 07/31/24 Yaa Ashby PA-C [address] [place], [place] [address] [facility] 07/31/24 Team Status: Active Member Role Status Dates Dr. Moon Teixeira MD Primary Care Provider Active Team Status: Inactive Member Role Status Dates Bart Rosales RADIAL DRILL OPERATOR FOR PLASTIC, RADIAL DRILL OPERATOR FOR PLASTIC-C Attending Provider Active S tart: July 26, 2024 End: July 26, 2024 Bart Rosales RADIAL DRILL OPERATOR FOR PLASTIC, RADIAL DRILL OPERATOR FOR PLASTIC-C Referring Provider Active S tart: July 26, 2024 End: July 26, 2024 Dr. Moon Teixeira MD Primary Care Provider Active Start: July 26, 2024 End: July 26, 2024 Team Status: Inactive Member Role Status Dates Bart Rosales RADIAL DRILL OPERATOR FOR PLASTIC, RADIAL DRILL OPERATOR FOR PLASTIC-C Attending Provider Active S tart: September 22, 2024 End: September 22, 2024 Bart Rosales RADIAL DRILL OPERATOR FOR PLASTIC, RADIAL DRILL OPERATOR FOR PLASTIC-C Referring Provider Active S tart: September 22, 2024 End: September 22, 2024 Dr. Moon Teixeira MD Primary Care Provider Active Start: September 22, 2024 End: September 22, 2024 Team Status: Inactive Member Role Status Dates Dr. Moon Teixeira MD Primary Care Provider Active Start: September 23, 2024 End: September 23, 2024 Desire DENNIS PA Attending Provider Active Start: September 23, 2024 End: September 23, 2024 Desire DENNIS PA Referring Provider Active Start: September 23, 2024 End: September 23, 2024 Team Status: Inactive Member Role Status Dates Dr. Moon Teixeira MD Primary Care Provider Active Start: September 26, 2024 End: September 26, 2024 Dr. Pedro Gusman MD Attending Provider Active Sta rt: September 26, 2024 End: September 26, 2024 Dr. Pedro Gusman MD Emergency Provider Active Sta rt: September 26, 2024 End: September 26, 2024 Team Status: Inactive Member Role Status Dates Dr. Moon Teixeira MD Primary Care Provider Active Start: October 11, 2024 End: October 11, 2024 Desire DENNIS, PA Attending Provider Active Start: October 11, 2024 End: October 11, 2024 Desire Weldon PA, PA Referring Provider Active Start: October 11, 2024 End: October 11, 2024 Bart Rosales RADIAL DRILL OPERATOR FOR PLASTIC, RADIAL DRILL OPERATOR FOR PLASTIC-C Other Provider Active Start : October 11, 2024 End: October 11, 2024 Team Status: Inactive Member Role Status Dates Dr. Moon Teixeira MD Primary Care Provider Active Start: October 13, 2024 End: October 13, 2024 Dr. Moon Teixeira MD Referring Provider Active Start: October 13, 2024 End: October 13, 2024 Dr. Yinka Lovelace MD Attending Provider Active Start: October 13, 2024 End: October 13, 2024 Team Status: Inactive Member Role Status Dates Dr. Moon Teixeira MD Primary Care Provider Active Start: October 13, 2024 End: October 13, 2024 Dr. Yinka Lovelace MD Attending Provider Active Start: October 13, 2024 End: October 13, 2024 Dr. Yinka Lovelace MD Referring Provider Active Start: October 13, 2024 End: October 13, 2024 Team Status: Active Member Role Status Dates Dr. Moon Teixeira MD Primary Care Provider Active Start: October 31, 2024 Dr. Moon Teixeira MD Attending Provider Active Start: October 31, 2024 Team Status: Active Member Role Status Dates Dr. Moon Teixeira MD Primary Care Provider Active Start: November 04, 2024 Dr. Moon Teixeira MD Attending Provider Active Start: November 04, 2024 Dr. Moon Teixeira MD Referring Provider Active Start: November 04, 2024 Team Status: Inactive Member Role Status Dates Dr. Moon Teixeira MD Primary Care Provider Active Start: November 11, 2024 End: November 11, 2024 Dr. Yinka Lovelace MD Attending Provider Active Start: November 11, 2024 End: November 11, 2024 Dr. Yinka Lovelace MD Referring Provider Active Start: November 11, 2024 End: November 11, 2024 Team Status: Active Member Role Status Dates Dr. Moon Teixeira MD Primary Care Provider Active Start: November 11, 2024 Dr. Dominguez Garsia MD Attending Provider Active S tart: November 11, 2024 Team Status: Active Member Role Status Dates Bart Rosales RADIAL DRILL OPERATOR FOR PLASTIC, RADIAL DRILL OPERATOR FOR PLASTIC-C Attending Provider Active S tart: November 11, 2024 Bart Rosales RADIAL DRILL OPERATOR FOR PLASTIC, RADIAL DRILL OPERATOR FOR PLASTIC-C Referring Provider Active S tart: November 11, 2024 Dr. Moon Teixeira MD Primary Care Provider Active Start: November 11, 2024 Team Status: Inactive Member Role Status Dates Bart Rosales RADIAL DRILL OPERATOR FOR PLASTIC, RADIAL DRILL OPERATOR FOR PLASTIC-C Attending Provider Active S tart: November 18, 2024 End: November 18, 2024 Bart Rosales RADIAL DRILL OPERATOR FOR PLASTIC, RADIAL DRILL OPERATOR FOR PLASTIC-C Referring Provider Active S tart: November 18, 2024 End: November 18, 2024 Dr. Moon Teixeira MD Primary Care Provider Active Start: November 18, 2024 End: November 18, 2024 Dr. Yinka Lovelace MD Other Provider Active St art: November 18, 2024 End: November 18, 2024 Team Status: Inactive Member Role Status Dates Dr. Moon Teixeira MD Primary Care Provider Active Start: November 22, 2024 End: November 22, 2024 Desire DENNIS, PA Attending Provider Active Start: November 22, 2024 End: November 22, 2024 Desire DENNIS PA Referring Provider Active Start: November 22, 2024 End: November 22, 2024 Team Status: Inactive Member Role Status Dates Dr. Moon Teixeira MD Primary Care Provider Active Start: November 28, 2024 End: November 28, 2024 Dr. Isreal Ohara DO Emergency Provider Active Start: November 28, 2024 End: November 28, 2024 Pencils Washer Relationship Specialty Start Date End Date Moon Teixeira MD [address] [place] [address] PCP - General Internal Medicine 04/05/24 Mynor Shirley MD [address] [place] [address] Primary Staff Physician Cardiology 10/28/22 Desire Weldon [address] [place] [address] 11/05/22 Older, SCOTT Tillman.FILE SYSTEM INSTALLER [address] [place], [place] [address] Double Needle Stitcher Internal Medicine 07/31/24 Pencils Washer Relationship Specialty Start Date End Date Moon Teixeira MD [address] [place], [place] [address] PCP - General Internal Medicine 04/05/24 Mynor Shirley MD [address] [place] [address] Primary Staff Physician Cardiology 10/28/22 Desire Weldon [address] [place] [address] 11/05/22 José Miguel Saldaña APRN.FILE SYSTEM INSTALLER [address] [facility] [address] Double Needle Stitcher Internal Medicine 07/31/24 Pencils Washer Relationship Specialty Start Date End Date Moon Teixeira MD [address] [place] [address] PCP - General Internal Medicine 04/05/24 Mynor Shirley MD [address] [place] [address] Primary Staff Physician Cardiology 10/28/22 Desire Weldon [address] [place] [address] 11/05/22 José Miguel Saldaña, FAST FOOD SERVER.FILE SYSTEM INSTALLER [address] [place] [address] Double Needle Stitcher Internal Medicine 07/31/24 Pencils Washer Relationship Specialty Start Date End Date Moon Teixeira MD [address] [place] [address] PCP - General Internal Medicine 04/05/24 Mynor Shirley MD [address] [place] [address] Primary Staff Physician Cardiology 10/28/22 Desire Weldon [address] [place] [address], [place] [address] 11/05/22 José Miguel Saldaña APRN.FILE SYSTEM INSTALLER [address] [place] [address] Double Needle Stitcher Internal Medicine 07/31/24 Team Status: Inactive Member Role Status Dates Dr. Moon Teixeira MD Primary Care Provider Active Start: November 04, 2024 End: November 04, 2024 Dr. Moon Teixeira MD Attending Provider Active Start: November 04, 2024 End: November 04, 2024 Dr. Moon Teixeira MD Referring Provider Active Start: November 04, 2024 End: November 04, 2024 Team Status: Active Member Role Status Dates Dr. Moon Teixeira MD Primary Care Provider Active Start: November 22, 2024 Dr. Dominguez Garsia MD Attending Provider Active S tart: November 22, 2024 Desire Weldon PA, PA Referring Provider Active Start: November 22, 2024 Team Status: Inactive Member Role Status Dates Dr. Moon Teixeira MD Primary Care Provider Active Start: November 28, 2024 End: November 28, 2024 Dr. Isreal Ohara DO Attending Provider Active Start: November 28, 2024 End: November 28, 2024 Dr. Isreal Ohara DO Emergency Provider Active Start: November 28, 2024 End: November 28, 2024 Pencils Washer Relationship Specialty Start Date End Date Moon Teixeira MD [address] [place], [place] [address]856[address] PCP - General Internal Medicine 04/05/24 Mynor Shirley MD [address] [place] [address] Primary Staff Physician Cardiology 10/28/22 Desire Weldon [address] [place] [address] 11/05/22 OlderJosé Miguel APRN.FILE SYSTEM INSTALLER [address] [place], [place] [address]64[address] Double Needle Stitcher Internal Medicine 07/31/24 Pencils Washer Relationship Specialty Start Date End Date Moon Teixeira MD [address] [place], [place] [address] PCP - General Internal Medicine 04/05/24 Mynor Shirley MD [address] [place] [address] Primary Staff Physician Cardiology 10/28/22 Desire Weldon [address] [place] [address] 11/05/22 OlderJosé Miguel, FAST FOOD SERVER.FILE SYSTEM INSTALLER [address] [place] [address] Double Needle Stitcher Internal Medicine 07/31/24 Pencils Washer Relationship Specialty Start Date End Date Moon Teixeira MD [address] [place] [address] PCP - General Internal Medicine 04/05/24 Mynor Shirley MD [address] [place] [address] Primary Staff Physician Cardiology 10/28/22 Desire Weldon [address] [place] [address] 11/05/22 OlderJosé Miguel, FAST FOOD SERVER.FILE SYSTEM INSTALLER [address] [place] [address] Double Needle Stitcher Internal Medicine 07/31/24 Team Status: Inactive Member Role Status Dates Bart Rosales RADIAL DRILL OPERATOR FOR PLASTIC, RADIAL DRILL OPERATOR FOR PLASTIC-C Attending Provider Active S tart: January 05, 2025 End: January 05, 2025 Bart Rosales RADIAL DRILL OPERATOR FOR PLASTIC, RADIAL DRILL OPERATOR FOR PLASTIC-C Referring Provider Active S tart: January 05, 2025 End: January 05, 2025 Dr. Moon Teixeira MD Primary Care Provider Active Start: January 05, 2025 End: January 05, 2025 Dr. Yinka Lovelace MD Other Provider Active St art: January 05, 2025 End: January 05, 2025 Pencils Washer Relationship Specialty Start Date End Date Moon Teixeira MD [address] [place] [address] PCP - General Internal Medicine 04/05/24 Mynor Shirley MD [address] [place] [address] Primary Staff Physician Cardiology 10/28/22 Desire Weldon [address] [place] [phone] 11/05/22 Older, José Miguel, FAST FOOD SERVER.FILE SYSTEM INSTALLER [address] [place] [address] Double Needle Stitcher Internal Medicine 07/31/24 Pencils Washer Relationship Specialty Start Date End Date Moon Teixeira MD [address] [place] [address] PCP - General Internal Medicine 04/05/24 Mynor Shirley MD [address] [place] [address] Primary Staff Physician Cardiology 10/28/22 Desire Weldon [address] [place] [address] 11/05/22 José Miguel Saldaña, FAST FOOD SERVER.FILE SYSTEM INSTALLER [address] [place] [address] Double Needle Stitcher Internal Medicine 07/31/24 Pencils Washer Relationship Specialty Start Date End Date Moon Teixeira MD [address] [place] [address] PCP - General Internal Medicine 04/05/24 Mynor Shirley MD [address] [place] [address] Primary Staff Physician Cardiology 10/28/22 Desire Weldon [address] [place] [address] 11/05/22 OlderJosé Miguel, FAST FOOD SERVER.FILE SYSTEM INSTALLER [address] [place] [address] Double Needle Stitcher Internal Medicine 07/31/24 Pencils Washer Relationship Specialty Start Date End Date Moon Teixeira MD [address] [place] [address] PCP - General Internal Medicine 04/05/24 Mynor Shirley MD [address] [place] [address] Primary Staff Physician Cardiology 10/28/22 Desire Weldon [address] [place] [address] 11/05/22 OlderJosé Miguel, FAST FOOD SERVER.FILE SYSTEM INSTALLER [address] [place] [address] [facility] Internal Medicine 07/31/24 Team Status: Active Member Role/Relationship Status Dates Dr. Moon Teixeira MD Primary Care Provider Active Team Status: Inactive Member Role/Relationship Status Dates Bart Rosales RADIAL DRILL OPERATOR FOR PLASTIC, RADIAL DRILL OPERATOR FOR PLASTIC-C Attending Provider Active S tart: November 18, 2024 End: November 18, 2024 Bart Rosales RADIAL DRILL OPERATOR FOR PLASTIC, RADIAL DRILL OPERATOR FOR PLASTIC-C Referring Provider Active S tart: November 18, 2024 End: November 18, 2024 Dr. Moon Teixeira MD Primary Care Provider Active Start: November 18, 2024 End: November 18, 2024 Dr. Yinka Lovelace MD Other Provider Active St art: November 18, 2024 End: November 18, 2024 Team Status: Inactive Member Role/Relationship Status Dates Dr. Moon Teixeira MD Primary Care Provider Active Start: November 22, 2024 End: November 22, 2024 Desire Weldon PA, PA Attending Provider Active Start: November 22, 2024 End: November 22, 2024 Desire DENNIS PA Referring Provider Active Start: November 22, 2024 End: November 22, 2024 Team Status: Active Member Role/Relationship Status Dates Dr. Moon Teixeira MD Primary Care Provider Active Start: November 22, 2024 Dr. Dominguez Garsia MD Attending Provider Active S tart: November 22, 2024 Desire DENNIS PA Referring Provider Active Start: November 22, 2024 Team Status: Inactive Member Role/Relationship Status Dates Dr. Moon Teixeira MD Primary Care Provider Active Start: November 28, 2024 End: November 28, 2024 Dr. Isreal Ohara DO Attending Provider Active Start: November 28, 2024 End: November 28, 2024 Dr. Isreal Ohara DO Emergency Provider Active Start: November 28, 2024 End: November 28, 2024 Team Status: Inactive Member Role/Relationship Status Dates Bart Rosales RADIAL DRILL OPERATOR FOR PLASTIC, RADIAL DRILL OPERATOR FOR PLASTIC-C Attending Provider Active S tart: January 05, 2025 End: January 05, 2025 Bart Rosales RADIAL DRILL OPERATOR FOR PLASTIC, RADIAL DRILL OPERATOR FOR PLASTIC-C Referring Provider Active S tart: January 05, 2025 End: January 05, 2025 Dr. Moon Teixeira MD Primary Care Provider Active Start: January 05, 2025 End: January 05, 2025 Dr. Yinka Lovelace MD Other Provider Active St art: January 05, 2025 End: January 05, 2025 Team Status: Active Member Role/Relationship Status Dates Bart Rosales RADIAL DRILL OPERATOR FOR PLASTIC, RADIAL DRILL OPERATOR FOR PLASTIC-C Attending Provider Active S tart: March 08, 2025 Bart Rosales RADIAL DRILL OPERATOR FOR PLASTIC, RADIAL DRILL OPERATOR FOR PLASTIC-C Referring Provider Active S tart: March 08, 2025 Dr. Moon Teixeira MD Primary Care Provider Active Start: March 08, 2025 Dr. Yinka Lovelace MD Other Provider Active St art: March 08, 2025 Team Status: Inactive Member Role/Relationship Status Dates Dr. Moon Teixeira MD Primary Care Provider Active Start: March 15, 2025 End: March 15, 2025 Dr. Johnie Kelsey DO Emergency Provider Active Start: March 15, 2025 End: March 15, 2025 FOR RECORDS PERTAINING TO PATIENTS WHO ARE OR HAVE BEEN ENROLLED IN A CHEMICAL DEPENDENCY/SUBSTANCEABUSE PROGRAM, SOME INFORMATION MAY BE OMITTED. This clinical summary was aggregated from multiple sources. Caution should be exercised in using it in the provision of clinical care. This summary normalizes information from multiple sources, and as a consequence, information in this document may materially change the coding, format and clinical context of patient data. In addition, data may be omitted in some cases. CLINICAL DECISIONS SHOULD BE BASED ON THE PRIMARY CLINICAL RECORDS. [facility] [employer] [facility]. provides no warranty or guarantee of the accuracy or completeness of information in this document.
== END 2025-03-15 18:45 | disposition home or self-care (01) ==
PROVIDERS: Emergency Provider Emergency Medicine; PCP Internal Medicine; Visit Provider Emergency Medicine
DX: I95.9 Hypotension, unspecified (principal); I48.0 Paroxysmal atrial fibrillation; I10 Essential (primary) hypertension; G47.33 Obstructive sleep apnea (adult) (pediatric); Z79.01 Long term (current) use of 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
CPT/HCPCS: 71045; 80053; 81001; 83605; 84484; 85025; 85610; 93005; 96360; 99284; A4216

== ENCOUNTER 2025-04-20 13:30 | Outpatient (RCR) | payer BC, SELFPAY ==
[2025-04-17 12:05] LABS: INR Fingerstick 3.2
[2025-04-20 13:43] LABS: INR Fingerstick 1.8
== END 2025-04-20 18:00 | disposition home or self-care (01) ==
LOC: LAB 13:30
PROVIDERS: PCP Internal Medicine; Referring Provider Nurse Practitioner Family; Visit Provider Nurse Practitioner Family
DX: I48.0 Paroxysmal atrial fibrillation (principal); Z79.01 Long term (current) use of 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
CPT/HCPCS: 36416; 85610

== ENCOUNTER 2025-04-28 15:51 | Outpatient (RCR) | payer BC, SELFPAY ==
[2025-04-28 15:59] LABS: INR Fingerstick 1.7
== END 2025-05-23 18:00 | disposition home or self-care (01) ==
LOC: LAB 15:51
PROVIDERS: PCP Internal Medicine; Referring Provider Nurse Practitioner Family; Visit Provider Nurse Practitioner Family
DX: I48.0 Paroxysmal atrial fibrillation (principal); Z79.01 Long term (current) use of 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
CPT/HCPCS: 36416; 85610

== ENCOUNTER 2025-05-18 12:26 | Emergency (ER) | payer BC, SELFPAY ==
[2025-05-18 12:27] VITALS: BP 146/89; PULSE 94; RESP 16; TEMP 36.7; O2SAT 97; BMI 28.7
--- NOTE | 2025-05-18 12:48 | EDS_ITS ---
HPI History of Present Illness Chief Complaint: Palpitations Informant: patient Onset/Context/Timing Onset: Today Context: Gradual Onset Timing: Continuous Quality: Lightheaded Location: Generalized Worsened by: Nothing Relieved by: Nothing Narrative Narrative: Patient presents with low blood pressure and atrial fibrillation that became worse today. Patient states that her blood pressure was slowly declining at home. Patient states she felt lightheaded. Patient states nothing makes it better and nothing makes it worse. Patient states she has a history of paroxysmal atrial fibrillation. Patient states she does feel some tightness in her throat when she goes into atrial fibrillation. Patient denies any recent fevers or chills. Patient admits to some shortness of breath but denies any cough. Patient denies any chest pain. Patient admits to some pain in her left clavicular area. 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 Paroxysmal atrial fibrillation Change in bowel habit Asthma Near syncope Atrial tachycardia (10/14/18) Varicose vein of leg Vestibular neuritis Osteopenia Osteoarthritis Chronic venous insufficiency Glaucoma Essential (primary) hypertension Home Medications ?Medication ?Instructions ?Recorded ?Last Taken ?Type latanoprost 0.005 % eye drops 1 drp EACH EYE QHS eye h ealth 03/10/16 03/14/25 History coenzyme Q10 50 mg chewable tablet 30 mg PO DAILY 05/2403/14/25 History metoprolol tartrate 25 mg tablet 12.5 mg (1/2 x 25 mg) PO BID PRN 09/09/24 11/28/24 Rx afib #180 tabs timolol maleate 0.5 % eye drops 1 drp ophthalmic (eye) BID 09/26/24 03/15/25 History warfarin 5 mg tablet 7.5 mg PO [place] 11/28/24 03/14/25 History warfarin 5 mg tablet 5 mg PO .COMPLEX #120 tabs 0 01/26/25 03/14/25 Rx ascorbic acid (vitamin C) 500 mg 1 g PO DAILY 03/15/25 Unknown History tablet (C-500) cholecalciferol (vitamin D3) 25 2,000 unit PO DAILY vi tamin 03/28/25 Unknown History mcg (1,000 unit) tablet Allergy/AdvReac Type Severity Reaction Status Date / Time cat dander Allergy Mild congestion Verified 05/18/25 12:31 grass pollen Allergy Mild Cough, Verified 05/18/25 12:31 rhinitis house dust Allergy Mild Cough, Verified 05/18/25 12:31 rhinitis mold Allergy Mild Cough, Verified 05/18/25 12:31 rhinitis tree and shrub pollen Allergy Mild Cough, Verified 05/18/25 12:31 rhinitis Sulfa (Sulfonamide Allergy Itching Verified 05/18/25 12:31 Antibiotics) losartan AdvReac Severe dizziness, Verified 05/18/25 12:31 severe amlodipine AdvReac Intermediate dizziness Verified 05/18/25 12:31 lisinopril AdvReac Intermediate Nagging Verified 05/18/25 12:31 dry cough Benzodiazepines AdvReac Other Verified 05/18/25 12:31 diazepam (From Valium) AdvReac Other Verified 05/18/25 12:31 Family History Father Myocardial infarction from [place] age 61 Heart disease Diabetes Sister Breast cancer 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 Surgical History history vein surgery history TMJ surgery History of cataract surgery S/P excision of Ramos's neuroma History of carpal tunnel release History of tonsillectomy Social History household members: spouse housing: house Smoking Status: Never smoker alcohol intake: current alcohol intake frequency: a few times a month substance use type: does not use what type of physical activity do you participate in: none do you feel safe at home: Yes ROS ROS ED Constitutional Constitutional ED: Denies chills or fever(s) Eyes Eyes: Denies blurry vision or change in vision ENT ENT ED: Denies rhinorrhea or sore throat Cardiovascular Cardiovascular: Reports palpitations; Denies chest pain Respiratory/Chest Respiratory/Chest: Reports dyspnea; Denies cough Gastrointestinal Gastrointestinal: Denies nausea or vomiting Genitourinary Genitourinary ED: Denies dysuria or hematuria Musculoskeletal Musculoskeletal: Reports neck pain; Denies back pain Integumentary Denies abscess or rash Neurologic Neurologic: Denies headache(s) or weakness Allergic/Immunologic Allergic/Immunologic ED: Denies mouth swelling or urticaria EXAM Physical Exam Const Vital Signs: 05/18/25 12:27 05/18/25 13:00 05/18/25 13:27 Temperature 98.0 F Temperature Source Oral Pulse Rate 94 78 Respiratory Rate 16 22 H Respiratory Effort Normal Blood Pressure 146/89 H 142/86 H Blood Pressure Mean 108 104 Pulse Ox 97 97 Oxygen Delivery Method Room Air Room Air 05/18/25 13:29 05/18/25 14:00 05/18/25 15:00 Temperature Temperature Source Pulse Rate 69 54 L Respiratory Rate 22 H 17 Respiratory Effort Blood Pressure 123/80 H 129/72 H Blood Pressure Mean 94 91 Pulse Ox 98 96 Oxygen Delivery Method Room Air Room Air Positive well nourished and well developed General Appearance ED: well developed and NAD HEENT Reports moist mucous membranes Neck supple and no JVD Chest Wall palpation of chest normal Resp normal respiratory effort and clear to auscultation bilaterally Cardio regular rate Rhythm: abnormal rhythm irregularly irregular GI non-tender and non-distended Palpation: soft Neuro oriented x3, CN's II-XII intact bilaterally and no sensory deficits noted Sensorium / Orientation: alert Motor Exam: strength 5/5 throughout Psych mental status grossly normal MDM MDM MDM Narrative Medical decision making narrative: Differential diagnosis includes cardiac dysrhythmia, cardiac ischemia, pneumonia, bronchitis, electrolyte abnormality, coagulopathy, and anxiety. EKG will be obtained to assess for cardiac dysrhythmia or cardiac ischemia. Chest x-ray will be obtained to assess for pneumonia. CBC lightly abraded assessment leukocytosis and anemia. Basic metabolic profile will be obtained to assess for electrolyte abnormality and renal function. High-sensitivity troponin will be obtained to assess for cardiac ischemia. 2-hour repeat high-sensitivity troponin will be obtained to assess for ongoing cardiac ischemia. Serum magnesium level will be obtained to assess for hypomagnesemia and hypomagnesemia. PT with INR and PTT will be obtained to assess for coagulopathy. Lab Data Attestation: I reviewed the patient's lab results. Lab results narrative: CBC was reviewed and was within normal limits. Basic metabolic profile was within normal limits. Serum magnesium level was reviewed and slightly elevated at 2.4. PT with INR and PTT were reviewed. Pro time was elevated at 31.2. INR is therapeutic at 2.9. PTT was normal at 34.4. Initial high-sensitivity troponin was elevated as normal at 9. 2-hour repeat high-sensitivity troponin was reviewed and was normal at 8. Labs: Laboratory Results - last 24 hr 05/18/25 05/18/25 13:25 15:20 WBC 4.9 RBC 4.02 L Hgb 12.9 Hct 38.7 MCV 96.3 MCH 32.1 H MCHC 33.3 RDW Std Deviation 47.4 H RDW Coeff of [place]ce 13.3 Plt Count 175 MPV 12.3 H Immature Gran % (Auto) 0.200 Neut % (Auto) 63.8 Lymph % (Auto) 20.2 Gregory % (Auto) 12.6 H Eos % (Auto) 2.2 Baso % (Auto) 1.0 Absolute Neuts (auto) 3.2 Absolute Lymphs (auto) 1.00 Nucleated RBC % 0 PT 31.2 H INR 2.9 APTT 34.4 Sodium 141 Potassium 4.3 Chloride 107 Carbon Dioxide 21.0 Anion Gap 13 BUN 17 Creatinine 0.79 Estim Creat Clear Calc 58.94 Est GFR (MDRD) Non-Af 76 BUN/Creatinine Ratio 21.8 H Glucose 95 Calcium 9.1 Magnesium 2.4 H Troponin T High Sens 9 Troponin T Hi Sens 2 Hr 8 Radiography Chest X-Ray - ED: 1 View, Read by ED Physician, Read by Radiologist and No Acute Disease Diagnostic Testing: Clinical Impression(s) from Imaging Studies Chest X-Ray 05/18/25 13:30 IMPRESSION: Mild bilateral pulmonary vascular congestion. Trace right pleural effusion. Reading Location: [facility] Portable 1 view chest x-ray was obtained. On my independent interpretation, lung hooper show mild bilateral pulmonary vascular congestion. There is normal cardiac silhouette. Bony thorax is normal. There is no acute process noted. Radiologist also interpreted the x-ray and agrees. EKG Initial EKG: Attestation: I personally reviewed and interpreted this EKG as follows: Interpretation: Atrial Fibrillation (83) Comments: EKG was obtained. On my independent interpretation, shows atrial fibrillation with a rate of 83. QRS interval is normal at 74 ms. QTc interval is normal at 420 ms. [place] was normal. There are no acute ST or T wave changes noted. Prior EKG tracings: available for review Prior: Changed (Compared to EKG dated 03/28/2025, the atrial fibrillation is new. However, compared to EKG dated 09/26/2024 there are no acute changes.) Follow-up EKG: Attestation: I personally reviewed and interpreted this EKG as follows: Interpretation: No Acute Injury Pattern and Sinus Bradycardia (57) Comments: EKG was obtained. On my independent interpretation, it showed a sinus bradycardia with a rate of 57. [place] interval, QRS interval, and QTc intervals were all normal. [place] was normal. There are no acute ST or T wave changes. Prior EKG tracings: available for review Prior: Unchanged (03/28/2025) Management Discussion w/another healthcare provider: Medical Equipment Technician (Dr. Lovelace) Treatment and Re-Evaluation :: Patient was given aspirin. On reevaluation at 1500, patient was noted to be in a normal sinus rhythm. Patient was feeling better. Case was discussed with Dr. Lovelace. He recommended continuing her current medications as previously prescribed. Patient was instructed to follow-up with her ablation as scheduled. Patient understood and was agreeable with the plan. All questions were answered. 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 Instructions: ED AFIB Prescriptions: No Action latanoprost 1 DROP bottle 1 drp EACH EYE QHS cholecalciferol (vitamin D3) 25 mcg (1,000 unit) tablet 2,000 unit PO DAILY coenzyme Q10 50 MG tablet,chewable 30 mg PO DAILY warfarin 5 mg tablet 7.5 mg PO [facility] Protocol: Dose Management Condition: Thursday Dose/Route: 7.5 mg Instruction: 1.5 x 5 mg tablets Condition: Thursday Dose/Route: 5 mg Instruction: 1 x 5 mg tablet Condition: Thursday Dose/Route: 7.5 mg Instruction: 1.5 x 5 mg tablets Condition: Thursday Dose/Route: 5 mg Instruction: 1 x 5 mg tablet Condition: Dose/Route: 7.5 mg Instruction: 1.5 x 5 mg tablets Condition: Thursday Dose/Route: 7.5 mg Instruction: 1.5 x 5 mg tablets Condition: Thursday Dose/Route: 7.5 mg Instruction: 1.5 x 5 mg tablets Protocol Text: Adjustment Start Date: Thursday04/28/25 INR Value: 1.7 INR Date: 04/28/25 Recheck Date: 05/05/25 timolol maleate 0.5 % drops 1 drp ophthalmic (eye) BID ascorbic acid (vitamin C) [C-500] 500 mg tablet 1 g PO DAILY metoprolol tartrate 25 mg tablet 12.5 mg PO BID PRN (Reason: afib) Qty: 180 3RF warfarin 5 mg tablet 5 mg PO .COMPLEX Qty: 120 3RF Protocol: Dose Management Condition: Thursday Dose/Route: 7.5 mg Instruction: 1.5 x 5 mg tablets Condition: Thursday Dose/Route: 5 mg Instruction: 1 x 5 mg tablet Condition: Thursday Dose/Route: 7.5 mg Instruction: 1.5 x 5 mg tablets Condition: Thursday Dose/Route: 5 mg Instruction: 1 x 5 mg tablet Condition: Dose/Route: 7.5 mg Instruction: 1.5 x 5 mg tablets Condition: Thursday Dose/Route: 7.5 mg Instruction: 1.5 x 5 mg tablets Condition: Thursday Dose/Route: 7.5 mg Instruction: 1.5 x 5 mg tablets Protocol Text: Adjustment Start Date: Thursday04/28/25 INR Value: 1.7 INR Date: 04/28/25 Recheck Date: 05/05/25 Rx Instructions: 5 mg orally M//, 7.5 mg (1.5 tablets) S/T//S or as directed Primary Care Provider: Moon Malone Referrals: Moon Malone MD [Primary Care Provider, Internal Medicine] - 5-7 Days Yinka Lovelace MD [Med Staff - Active Staff, Cardiology] - Keep Anum appointment Activity Restrictions/Additional Instructions: Continue your medications as previously prescribed. Print Language: Qatari Disposition Disposition: Home, Self Care
--- NOTE | 2025-05-18 13:16 | EKG12_ITS ---
Test Reason : Blood Pressure : */* mmHG Vent. Rate : 57 BPM Atrial Rate : 57 BPM P-R Int : 186 ms QRS Dur : 76 ms QT Int : 404 ms P-R-T Axes : 61 -7 55 degrees QTcB Int : 393 ms Sinus bradycardia Otherwise normal ECG Confirmed by ANGELA BAILEY, HERMAN ([id number]), acquisitions editor RAMONITA BOOGIE ([id number]) on 05/19/2025 10:59:49 AM Referred By: Confirmed By: HERMAN MILLER MD
[2025-05-18 13:27] VITALS: BP 142/86; PULSE 78; RESP 22; O2SAT 97
--- NOTE | 2025-05-18 13:30 | RAD_ITS ---
PROCEDURE: CHEST 1 VIEW (PORTABLE) 05/18/2025 REASON FOR EXAM: CHEST PAIN TECHNIQUE: Frontal view of the chest. COMPARISON: Chest x-ray 03/15/2025 FINDINGS: Hardware: Left atrial appendage occluder device. Heart: Heart size is mildly enlarged. Lungs: Mild bilateral pulmonary vascular congestion.Chronic scarring along left lung base. Mild bibasilar atelectasis. Bones: Age-related degenerative changes Other: None RAD/Chest 1 View (Portable) IMPRESSION: Mild bilateral pulmonary vascular congestion. Trace right pleural effusion. Reading Location: [id number]
[2025-05-18 13:39] LABS: Hematocrit 38.7 % (37-47); Hemoglobin 12.9 g/dL (12.0-15.0); Immature Granulocytes Count 0.010 X10^3/uL (0.0-0.0); Mean Corp Hgb Conc 33.3 g/dL (32-36); Mean Corpuscular Volume 96.3 fL (81-99); Mean Platelet Vol. 12.3 fl (6.2-12.0); NRBC Flagged by Analyzer 0 % (0-5); Platelet Count 175 K/mm3 (150-450); RBC Distribution Width CV 13.3 % (11.6-14.6); RBC Distribution Width SD 47.4 fl (35.1-43.9); Red Blood Count 4.02 M/mm3 (4.2-5.4); White Blood Count 4.9 K/mm3 (4.4-11.0)
[2025-05-18 13:50] LABS: Prothrombin Time (Protime)PT. 31.2 SECONDS (11.7-14.9)
[2025-05-18 14:00] VITALS: BP 123/80; PULSE 69; RESP 22; O2SAT 98
[2025-05-18 14:02] LABS: Anion Gap 13 (5-15); BUN 17 mg/dL (4-19); BUN/Creat Ratio 21.8 RATIO (10-20); Calcium,Total 9.1 mg/dL (7.6-11.0); Carbon Dioxide 21.0 mmol/L (21.0-32.0); Chloride 107 mmol/L (98-108); Estimated Creatinine Clearance 58.94 ml/min (50-250); Glucose 95 mg/dL (70-99); Magnesium 2.4 mg/dL (1.5-2.2); Potassium 4.3 mmol/L (3.3-5.1); Troponin T High Sensitivity 9 ng/L (<=14)
[2025-05-18 14:10] LABS: Partial Thromboplast Time 34.4 Seconds (24.1-36.2)
[2025-05-18 15:00] VITALS: BP 129/72; PULSE 54; RESP 17; O2SAT 96
--- NOTE | 2025-05-18 15:07 | EKG12_ITS ---
Test Reason : Blood Pressure : */* mmHG Vent. Rate : 83 BPM Atrial Rate : * BPM P-R Int : * ms QRS Dur : 74 ms QT Int : 358 ms P-R-T Axes : * 0 40 degrees QTcB Int : 420 ms Atrial fibrillation Abnormal ECG Confirmed by ANGELA BAILEY, HERMAN ([id number]), movie editor RAMONITA BOOGIE ([id number]) on 05/19/2025 10:59:41 AM Referred By: Confirmed By: HERMAN MILLER MD
[2025-05-18 15:48] LABS: Troponin T High Sens 2 HR 8 ng/L (<=14)
[2025-05-18 16:00] VITALS: BP 128/75; PULSE 52; RESP 16; O2SAT 97
[2025-05-18 16:15] VITALS: BP 128/75; PULSE 52; RESP 16; TEMP 36.6; O2SAT 97
== END 2025-05-18 16:30 | disposition home or self-care (01) ==
PROVIDERS: Emergency Provider Emergency Medicine; PCP Internal Medicine; Visit Provider Emergency Medicine
DX: I48.0 Paroxysmal atrial fibrillation (principal); Z79.01 Long term (current) use of 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; I10 Essential (primary) hypertension; M54.2 Cervicalgia; R06.00 Dyspnea, unspecified
CPT/HCPCS: 71045; 80048; 83735; 84484; 85025; 85610; 85730; 93005; 99285; A4216

== ENCOUNTER 2025-06-07 10:02 | Outpatient (RCR) | payer BC, SELFPAY ==
[2025-06-07 10:42] VITALS: BP 154/92; PULSE 59; RESP 18; TEMP 36.3; BMI 27.1
--- NOTE | 2025-06-07 12:52 | HP.PCM_ITS ---
History of Present Illness Date of Service: 06/07/25 Chief Complaint: Atrophy aura left lateral lower ankle History of Wound: This is a 79-year-old female with a long-standing history of chronic venous disease. She has been under the care of Dr. Tamia Vargas at the [facility] in [place], [place]. She has undergone multiple venous procedures in the past. In 2012, she underwent endovenous laser ablation of the left great saphenous vein. This was followed by sessions of injection sclerotherapy in the distal left lower extremity. For reasons which are uncertain, she then underwent a left great saphenous vein stripping, according to the patient. Endovenous laser ablation of the right great saphenous vein was performed in August 2014. The patient noted onset of an ulceration near the left medial malleolus in December 2015. According to the patient, this was caused by trauma from a gardening shoe. She has been under the care of Dr. Vargas for this ulceration. Additional sessions of injection sclerotherapy have been performed, as recently as several weeks prior to [facility]. The patient was using Bacitracin topically. As a result of recent sclerotherapy, the patient had noted onset of a painful area overlying the left Achilles tendon, as well as swelling and pain in her left great toe. These symptoms appear to be manifestations or complications of injection sclerotherapy, and possibly superficial thrombophlebitis. In addition, a wound debridement was performed by Dr. Vargas shortly prior to the patient's presentation [facility] the [facility]. Most recently she went and saw Dr. 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 Which includes compression we will use some topical Xeroform dressing on her lower extremity area where there is really no open areas just very like raw skin. Patient is going to follow-up with Dr. Vargas for further evaluation again of making sure that her circulation is good with a vascular study and a venous study. Atrophie miah lesions are characteristic white, star-shaped scars that form on the skin, most often on the lower legs, after painful ulcers heal. They are the result of a condition called livedoid vasculopathy, which involves the occlusion of superficial blood vessels, leading to tissue damage, ulceration, and eventually the formation of these porcelain-white scars. 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 Paroxysmal atrial fibrillation Change in bowel habit Asthma Near syncope Atrial tachycardia (10/14/18) Varicose vein of leg Vestibular neuritis Osteopenia Osteoarthritis Chronic venous insufficiency Glaucoma Essential (primary) hypertension Home Medications ?Medication ?Instructions ?Recorded ?Last Taken ?Type latanoprost 0.005 % eye drops 1 drp EACH EYE QHS eye h ealth 03/10/16 03/14/25 History coenzyme Q10 50 mg chewable tablet 30 mg PO DAILY 05/2403/14/25 History metoprolol tartrate 25 mg tablet 12.5 mg (1/2 x 25 mg) PO BID PRN 09/09/24 11/28/24 Rx afib #180 tabs timolol maleate 0.5 % eye drops 1 drp ophthalmic (eye) BID 09/26/24 03/15/25 History warfarin 5 mg tablet 7.5 mg PO SUTUTHSA 11/28/24 03/14/25 History warfarin 5 mg tablet 5 mg PO .COMPLEX #120 tabs 0 01/26/25 03/14/25 Rx ascorbic acid (vitamin C) 500 mg 1 g PO DAILY 03/15/25 Unknown History tablet (C-500) cholecalciferol (vitamin D3) 25 2,000 unit PO DAILY vi tamin 03/28/25 Unknown History mcg (1,000 unit) tablet oxycodone-acetaminophen 5 mg-325 1 tab PO TID PRN PRN pain 06/07/25 Unknown History mg tablet Allergy/AdvReac Type Severity Reaction Status Date / Time cat dander Allergy Mild congestion Verified 05/18/25 12:31 grass pollen Allergy Mild Cough, Verified 05/18/25 12:31 rhinitis house dust Allergy Mild Cough, Verified 05/18/25 12:31 rhinitis mold Allergy Mild Cough, Verified 05/18/25 12:31 rhinitis tree and shrub pollen Allergy Mild Cough, Verified 05/18/25 12:31 rhinitis Sulfa (Sulfonamide Allergy Itching Verified 05/18/25 12:31 Antibiotics) losartan AdvReac Severe dizziness, Verified 05/18/25 12:31 severe amlodipine AdvReac Intermediate dizziness Verified 05/18/25 12:31 lisinopril AdvReac Intermediate Nagging Verified 05/18/25 12:31 dry cough Benzodiazepines AdvReac Other Verified 05/18/25 12:31 diazepam (From Valium) AdvReac Other Verified 05/18/25 12:31 Family History Father Myocardial infarction from [place] age 61 Heart disease Diabetes Sister Breast cancer Other intermediate (current) use of 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 Surgical History history vein surgery history TMJ surgery History of cataract surgery S/P excision of Ramos's neuroma History of carpal tunnel release History of tonsillectomy Social History household members: spouse housing: house Smoking Status: Never smoker alcohol intake: current alcohol intake frequency: a few times a month substance use type: does not use what type of physical activity do you participate in: none do you feel safe at home: Yes ROS Constitutional Constitutional: Reports systems reviewed and no addt'l complaints, except as documented Eyes Eyes: Reports systems reviewed and no addt'l complaints, except as documented ENT HEENT: Reports systems reviewed and no addt'l complaints, except as documented Cardiovascular Cardiovascular: Reports systems reviewed and no addt'l complaints, except as documented Respiratory/Chest Respiratory/Chest: Reports systems reviewed and no addt'l complaints, except as documented Gastrointestinal Gastrointestinal: Reports systems reviewed and no addt'l complaints, except as documented Genitourinary Genitourinary: Reports systems reviewed and no addt'l complaints, except as documented Musculoskeletal Musculoskeletal: Reports systems reviewed and no addt'l complaints, except as documented Integumentary Integumentary: Reports erythema, skin pain, skin ulcer and skin swelling Neurologic Neurologic: Reports systems reviewed and no addt'l complaints, except as documented Psychiatric Psychiatric: Reports systems reviewed and no addt'l complaints, except as documented Endocrine Endocrinology: Reports systems reviewed and no addt'l complaints, except as documented Hematologic/Lymphatic Hematologic/Lymphatic: Reports systems reviewed and no addt'l complaints, except as documented Allergic/Immunologic Allergic/Immunologic: Reports systems reviewed and no addt'l complaints, except as documented Vital Signs Vital Signs Vital Signs: 06/07/25 10:42 Temperature 97.3 F L Temperature Source Temporal Pulse Rate 59 L Respiratory Rate 18 Blood Pressure 154/92 H Blood Pressure Mean 112 Blood Pressure Source Monitor Blood Pressure Position Semi-Fowlers Blood Pressure Location Right Arm Weight Weight: 163 lb Body Mass Index (BMI) 27.1 Debridement Note Debridement Note No debridement was completed: No debridement was completed today Post-Debridement Measurements and Additional Note: Post-Debridement Measurements/Treatment - Nurse 1 - General Ulcer Assessment Start: 06/07/25 10:40 Freq: Status: Active Protocol: JOSE.LOWEXT Activity Type Activity Date Activity User E-sign Co-sign Detail Recorded Client Recorded Date Recorded By Document 06/07/25 10:42 RB [id number] 06/07/25 10:48 RB 06/07/25 10:42 - Today's Visit Information Type of service Initial Visit Arrival Mode Ambulatory Transfer Assistance Manual Patient Identification Verified (Name & Yes ) Patient Requires Transmission-Based No Precautions Height and Weight Height 5 ft 5 in Weight 163 lb Weight in Pounds 163.0 lbs Body Mass Index (BMI) 27.1 BMI Classification Overweight Vital Signs Temperature (97.8 F-99.1 F) 97.3 F L Temperature Source Temporal Pulse Rate (60-100) 59 L Pulse Location Monitor Respiratory Rate (12-18) 18 Respiratory rate source Observation Blood Pressure (90/60-120/80) 154/92 H Blood Pressure Mean 112 Source Monitor Position Semi-Fowlers Blood Pressure Location Right Arm History Since Last Visit- (Skip if this is Patient's initial visit) Have you changed medications since your No last visit? Any new allergies or adverse reactions No Had a fall/change in ADL's that may No increase risk of falls Signs or symptoms of abuse and/or No neglect since last visit Have you been in the hospital since your No last visit? Has dressing in place as prescribed Yes Has compression in place as prescribed Yes Has offloadiing in place as prescribed N/A Experienced any changes in pain level or No management Left Footwear Regular Shoe Right Footwear Regular Shoe Pain Scale: 0-10 Numeric Is Patient Pain Free? No LLE -Description Aching -Intensity 8 -Duration (hours) Acute -Pain Behavior Guarding -Pain Aggravating Factors Exercise/ Activity, Walking -Alleviating Factors/Interventions Medication -Effectiveness of Alleviating Factor/ Moderately Intervention effective Communication Assessment Preferred language [place] Enamel Buffer Required No Able to Read Yes Able to Write Yes Communication Tools None Right Hearing Abillity Normal Left Hearing Abillity Normal Visual Assistive Devices Glasses Teaching Assessment Preferences Verbal,Written Barriers to Learning None,Knowledge Deficit Readiness To Learn Good Willingness to Engage in Self Management Med Activies Readiness to Engage in Self Management Med Activities Anxiety Level Calm Cooperation Cooperative Perception Coherent Interest in Health Problem Asks Questions Education Importance Acknowledges Need Does Patient Smoke tobacco or other No substances Is Patient Diabetic No Functional Assessment Recent Decline in Ability to Perform Denies Any Declines Assistive Device With Patient No Culture/Yarsanism/Supervisor Sandblaster Cultural/Yarsanism Needs that may affect No Treatment Plan Would you allow our hospital stock chaser to No meet you for the purpose of spiritual/ emotional support? Supervisor Sandblaster to contact place of religious No Teaching: Wound Center Dressing Your Wound -Person Taught Patient,Family -Teaching Method Demonstration -Response to teaching Verbalize Understanding WC - Nurse 1 - General Ulcer Measurement Start: 06/07/25 10:40 Freq: Status: Active Protocol: Activity Type Activity Date Activity User E-sign Co-sign Detail Recorded Client Recorded Date Recorded By Document 06/07/25 10:42 RB [id number] 06/07/25 10:48 RB 06/07/25 10:42 Wound Center Nurse 1 2. LLE lateral ankle -Combined with other wound No -Current Size (cm) - Length 0.5 -Current Size (cm) - Width 0.5 -Current Size (cm) - Depth 0.1 -Total Square Cm 0.25 -Photo Taken Yes -Tunneling No -Undermining/Tunneling No -Circular Undermining No -Exudate Amt Medium -Exudate Type Serosanguineous -Wound Margin Distinct, Outline Attached -Granulation Amt Medium (34-66%) -Granulation Quality [place] -Slough/Fibrin Yes -Necrosis Amt Small (1-33%) -Necrotic Tissue Type Adherent Slough -Structure Exposed N/A -Texture (Anika-wound Skin Appearance) Assessed -Moisture (Anika-wound Skin Appearance) Assessed -Color (Anika-wound Skin Appearance) Assessed, Hemosiderin Staining -Temperature (Anika-wound Skin No Abnormality Appearance) (Pt Warm) -Tenderness on Palpation (Anika-wound No Skin Appearance) -Ulcer Cleansing Wound Cleanser -Foul Odor after Cleansing No -Anesthetic Used 5% Lidocaine Gel Lower Limb Edema Present Yes Right Calf (cm) 38 Right Ankle (cm) 19.5 Left Calf (cm) 37.2 Left Ankle (cm) 18.5 WC - Nurse 2 - General Ulcer CM Notes Start: 06/07/25 10:40 Freq: Status: Active Protocol: Activity Type Activity Date Activity User E-sign Co-sign Detail Recorded Client Recorded Date Recorded By Document 06/07/25 11:05 DS [id number] 06/07/25 11:05 DS Edit Result 06/07/25 11:05 DS (1) [id number] 06/07/25 11:07 DS (1) 2. LLE lateral ankle - Post Debridement (cm) - Length => 1.0 - Post Debridement (cm) - Width => 1.0 - Post Debridement (cm) - Depth => 0.1 - Total Square (Post) (cm) => 1.00 - Area of Debridement (cm) - Length => 1.0 - Area of Debridement (cm) - Width => 1.0 - Total Square (Area) (cm) => 1.00 - Tunneling => No - Undermining/Tunneling => No - Circular Undermining => No 06/07/25 11:05 Wound Center Nurse 2 2. LLE lateral ankle -Time 11:05 -Correct Patient Yes -Correct Side, Site, Position Yes -Procedure Performed No -Post Debridement (cm) - Length 1.0 -Post Debridement (cm) - Width 1.0 -Post Debridement (cm) - Depth 0.1 -Total Square (Post) (cm) 1.00 -Area of Debridement (cm) - Length 1.0 -Area of Debridement (cm) - Width 1.0 -Total Square (Area) (cm) 1.00 -Tunneling No -Undermining/Tunneling No -Circular Undermining No -Wound/Ulcer Outcome Not Healed Pain Scale: 0-10 Numeric Is Patient Pain Free? Yes WC - Nurse 3 - General Ulcer D/C NN Start: 06/07/25 10:40 Freq: Status: Active Protocol: Activity Type Activity Date Activity User E-sign Co-sign Detail Recorded Client Recorded Date Recorded By Document 06/07/25 11:31 CP [id number] 06/07/25 11:32 CP 10/15/25 11:31 Wound Care Center Nurse 3 2. LLE lateral ankle -Ulcer Cleansing Rinsed/ Irrigated with Saline -Foul Odor after Cleansing No -Other Dressing xeroform -Primary Dressing Covered/Secured with Dry Gauze & Roll Gauze, Secured with Tape LLE -Stockings Yes Pain Scale: 0-10 Numeric Is Patient Pain Free? 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 Vargas for her vascular studies (2) Peripheral vascular disease of foot: CODE(S): I73.9 - Peripheral vascular disease, unspecified
--- NOTE | 2025-06-08 10:16 | WC ---
PHOTO-LEFT ANKLE 06/07/25
== END 2025-06-23 23:59 | disposition home or self-care (01) ==
LOC: WC 10:02
PROVIDERS: PCP Internal Medicine; Referring Provider Dermatology Pediatric Dermatology; Visit Provider Nurse Practitioner
DX: I73.9 Peripheral vascular disease, unspecified (principal); L95.0 Livedoid vasculitis
CPT/HCPCS: 99213; G0463

== ENCOUNTER 2025-06-09 14:36 | Outpatient (RCR) | payer BC, SELFPAY ==
[2025-06-09 14:48] LABS: INR Fingerstick 3.2
== END 2025-06-09 18:00 | disposition home or self-care (01) ==
LOC: LAB 14:36
PROVIDERS: PCP Internal Medicine; Referring Provider Nurse Practitioner Family; Visit Provider Nurse Practitioner Family
DX: I48.0 Paroxysmal atrial fibrillation (principal); Z79.01 Long term (current) use of 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
CPT/HCPCS: 36416; 85610

== ENCOUNTER 2025-06-26 14:30 | Outpatient (RCR) | payer BC, SELFPAY ==
--- NOTE | 2025-04-26 18:46 | HP.SP.EVAL ---
Visit History Visit Info Date of Eval: 04/26/25 Today is Visit #: 1 [employer] Ii Assembler: RADHA History Attending Doctor: Referring Doctor: Reason for Referral: [facility] Medical Diagnosis: Dysphagia Date of Onset of Diagnosis: 2023 Previous speech therapy: Yes Results: MBSS results from 06/14/24: Penetration-Aspiration Scale Score Thin Liquid via teaspoon: Result: 1= does not enter airway Thin Liquid via teaspoon Trial 2: Result: 1= does not enter airway Thin Liquid via small single sip: cup: Result: 1= does not enter airway Thin Liquid via sequential sips: cup: Result: 1= does not enter airway [place] Thick Liquid via small single sip: cup: Result: 1= does not enter airway Honey Thick Liquid via small single sip: cup: Result: 1= does not enter airway Pudding: Result: 1= does not enter airway Cookie: Result: 1= does not enter airway Impression: Oral phase primarily marked by... • Presence of oral residue after swallowing thin liquids, spilling into the pharynx. Significant risk for postprandial penetration/aspiration due to lack of awareness, preventing double swallow or airway protection. • Adequate mastication of cookie noted, using piecemeal deglutition. Majority of cookie remained in the vallecula and pyriforms after initial swallow. Patient independently uses a double swallow, which partially clears pharyngeal residues. Pharyngeal phase primarily marked by... 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 Bulging of cricopharyngeus impacting pharyngoesophageal bolus transit. • During honey-thick liquid trial, contrast lining the pyriforms with potential anatomical variations triggering an immediate reflexive cough. Fluoroscopy was briefly turned off and resumed during the cough. No aspiration observed. • Persistent coughing episodes may be linked to this penetration; further instrumental swallow evaluation needed. Recommendation for Fiberoptic Endoscopic Evaluation of Swallowing (FEES) to visualize structures. Esophageal phase primarily marked by... • Esophageal retention observed in the upper and mid esophagus following 1x bite of pudding, with retrograde flow noted below the UES. • Ongoing follow-up with gastroenterology recommended due to risk of reflux aspiration. Coughing episodes also may be linked to this. Recommendations Diet: Regular Textures and Thin Liquids Compensatory Strategies: Multiple Swallows, Alternate bites/solids and sips/liquids, Sitting upright and Remain sitting upright for 30 minutes after PO intake Recommend Repeat Modified Barium Swallow: No (Recommendation for Fiberoptic Endoscopic Evaluation of Swallowing (FEES) to visualize structures.) Other Relevant Medical History/Diagnoses/Surgery: Her past medical history includes shortness of breath, obstructive sleep apnea (PRAMOD), long-term use of 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, paroxysmal atrial fibrillation, asthma, near syncope, atrial tachycardia (10/14/18), varicose veins in her leg, vestibular neuritis, osteopenia, osteoarthritis, chronic venous insufficiency, glaucoma, and essential hypertension, A-FIB Medications related to this diagnosis: Baclofen, latanoprost, Metoprolol, Escitalopram, Mirabegron, warfarin Smoking Status: Never smoker Diagnosis Diagnosis: Oropharyngeal Dysphagia Pain Is pain an issue with your current prescribed condition?: No Personal Preferred language: Lithuanian Patient Allergies Allergies Allergies: Allergies cat dander Allergy (Mild, Verified 03/28/25 11:17) congestion grass pollen Allergy (Mild, Verified 03/28/25 11:17) Cough, rhinitis house dust Allergy (Mild, Verified 03/28/25 11:17) Cough, rhinitis mold Allergy (Mild, Verified 03/28/25 11:17) Cough, rhinitis tree and shrub pollen Allergy (Mild, Verified 03/28/25 11:17) Cough, rhinitis Sulfa (Sulfonamide Antibiotics) Allergy (Verified 03/28/25 11:17) Itching losartan Adverse Reaction (Severe, Verified 03/28/25 11:17) dizziness, severe amlodipine Adverse Reaction (Intermediate, Verified 03/28/25 11:17) dizziness lisinopril Adverse Reaction (Intermediate, Verified 03/28/25 11:17) Nagging dry cough Benzodiazepines Adverse Reaction (Verified 03/28/25 11:17) Other diazepam (From Valium) Adverse Reaction (Verified 03/28/25 11:17) Other HALLUCINATIONS Subjective Dysphagia Symptoms Reported Symptoms/Problems with: Choking, Difficulty Swallowing Solids, Difficulty Swallowing Liquids, Difficulty Swallowing Pills and Food gets stuck Current Diet Solids Current Diet: Regular Current Diet Liquids Current Liquids: Thin Objective Dysphagia Administered by Administered by: Self Thin Liquids Administred via: Cup Oral Transit: WNL Bolus clearance: fully cleared Gagging: No Cough: immediate and throat clear Pharyngeal phase: suspect pharyngeal deficits Patient Report: Patient reported that she frequently coughs or throat clears on liquids. Comments: Patient had several times of throat clearing after single drinks of thin liquids. She also exhibited one significant coughing episode after taking thin liquid drink to moisten dry cookie. Soft & Bite sized (Mechanical) Oral Preparation: WNL Oral Transit: WNL Bolus clearance: significant clearance/minimal residue Gagging: No Cough: throat clear Pharyngeal phase: suspect pharyngeal deficits Patient Report: Patient reported feeling residue and pointed to the level of the vallecula. Comments: Observed that patient needed to moisten dry andrew doone to be able to swallow it. She had a cough after the swallow. Swallowing Impairment Contributing Factors to Swallowing Impairment: Impaired Oral-Pharyngeal Transport and Other Other: probably pharyngeal deficits with reported feeling of statis. Impact Impact on Safety & Functioning: Risk for Aspiration Recommendations Swallowing Treatment: Yes Diet Texture Recommendations Solids: Regular (Level 7) Liquids: Thin (Level 0) Safety Saftey Precautions/Swallowing Recommendations (Check all that Apply): Small Sips & Bites when Eating and Multiple Swallows Results Swallowing Within Normal Limits: No Swallowing Diagnosis: Oropharyngeal Phase Dysphagia (R13.12) Objective Oral Motor Oral Status Dentition: WNL Labial Impairment: WNL Closure: WNL Pucker: WNL Retraction: WNL Alternating Pucker/Retraction: WNL Involuntary Movement noted: No Lingual Impairment: WNL Protrusion: WNL Retraction: WNL Lateralization: WNL Involuntary Movement: No Jaw Impairment: WNL Respiratory Status Respiratory Status: Room Air Reference: Neuro-QoL instrument Radiation Oncology Patient Plan Plan Plan: Recommend FEES ( Fiberoptic endoscopic evaluation of the swallow) to visualize structures and swallow function. If physician is in agreement, it will be completed on 05/15/25 with goals added at that time. Recommendations Treatment Warranted: Yes Treatment Warranted: Dysphagia Progress Prognosis: Good Frequency Additional (Frequency): Pending FEES results. Patient/Family Goal Patient/Family Goal: Patient would like to be able to eat and swallow without difficulty. Goals that are Established Determination:: Goals will be added/modified as deemed necessary and appropriate. Therapy will be discontinued when results of re-evaluation indicate therapy is no longer needed or lack of progress has been documented. Goal #1-5 Goal #1: Completion of FEES with goals added at that time as necessary. Education Patient has Indicated that the Following Identified Educational Needs: None The Patient has indicated that they have no educational or learning abilities that may effect their care.: Yes Patient Instruction Patient Education: Diagnosis, Treatment Plan and Diet Level Person Taught: Patient Response to teaching: Verbalize Understanding
--- NOTE | 2025-05-31 12:43 | SP.FEES_ITS ---
FEES Patient Information Date of Evaluation: 05/15/25 Time of Evaluation: 10:10 Diagnosis: Dysphagia Referring Physician: Dr. Malone Staff Providing this Care/Treatment:: RADHA Direct Billable Minutes: 120 History: Past Medical History:: shortness of breath, obstructive sleep apnea (PRAMOD), long- term use of 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, paroxysmal atrial fibrillation, asthma, near syncope, atrial tachycardia (10/14/18), varicose veins in her leg, vestibular neuritis, osteopenia, osteoarthritis, chronic venous insufficiency, glaucoma, and essential hypertension, A-FIB, GERD, post nasal drip. TX/DX History:: No and MBSS Subjective: Subjective:: Patient is experiencing difficulty swallowing with foods getting stuck and coughing often during oral intake. She had an MBSS on 06/14/24 with regular foods with thin liquids recommended with the following strategies recommended: Multiple Swallows, Alternate bites/solids and sips/liquids, Sitting upright and Remain sitting upright for 30 minutes after PO intake. Diagnosis was oropharyngeal dysphagia, esophageal dysphagia with FEES recommended at that time to visualize structures. GI was recommended and patient is being followed by Dr. John with her next appointment on June 2025. Current Diet: Drinks/Liquids:: Thin Foods:: Regular Medication Administration:: orally Respiratory Status Observation:: Pulse ox was 91 Vocal Quality: Observations:: WFL Comments:: Patient reported she has difficulty singing. Cognition: Observations:: WFL Position During FEES: Position During FEES:: Upright Location: In Chair Fiberoptic Endoscope: Size: 3.4 mm Nare Used:: Right Anatomy: Nasopharynx Tissue Description: [place] red Anatomical Findings: Anatomical Findings:: Observed patient to have white patchy areas at base of tongue. (See image 1) She appeared to have bilateral excrescences to the right and left of vallecula protruding into the vallecula. ( See image 2) Secretions: Description:: Thick and Clear Location:: Oropharynx Phonation: Arytenoid Adduction: Abnormal Comment:: Arytenoid cartilage appeared to have edema also with asymmetrical movement at times along with intermittent quivering. ( see image 3) Penetration-Aspiration Scale Penetration-Aspiration Scale Thin Liquids by Single Cup Food/Drink Provided:: Water Swallow Onset Location:: Pyriform Sinuses PAS Score: PAS Score *1 Visual Analysis of Swallowing Efficiency and Safety (VASES) after the swallow: Oropharynx and Hypopharynx Comments:: Minimal residue in pyriform sinuses after 2 single drinks then independent second swallow cleared residue. Strategies Trialed:: Patient used an independent double swallow. Thin Liquids by Sequential Cup Food/Drink Provided:: Water-3 drinks sequentially Swallow Onset Location:: Vallecula Strategies Trialed:: Patient used an independent double swallow. Additional Comments:: Observed thin liquid coming over epiglottis on right side prior to trigger of swallow but did not enter airway. After 2 single drinks and 3 sequential drinks, Patient reported "Feels like I'm burping". Slightly Thick Liquids by Single Cup Food/Drink Provided:: Smoothie that had pieces of blueberry skins and other small pieces. Swallow Onset Location:: Pyriform Sinuses PAS Score: PAS Score *1 Visual Analysis of Swallowing Efficiency and Safety (VASES) after the swallow: Oropharynx Comments:: Noted significant diffuse residue on base of tongue, posterior pharyngeal wall and in vallecula which did not clear with a double swallow. ( see image 4) Strategies Trialed:: Small sip plus effortful swallow had reduced residue. Puree Textures Food/Drink Provided:: Thick pudding 1/2 spoonful. Swallow Onset Location:: Vallecula PAS Score: PAS Score *1 Visual Analysis of Swallowing Efficiency and Safety (VASES) after the swallow: Oropharynx Comments:: Scattered residue that needed several swallows to clear. Strategies Trialed:: Multiple swallows. Minced & Moist Textures Food/Drink Provided:: Soup with small pieces of soft vegetables - Mixed consistency Swallow Onset Location:: Vallecula and Pyriform Sinuses PAS Score: PAS Score *1 Visual Analysis of Swallowing Efficiency and Safety (VASES) after the swallow: Oropharynx Comments:: Significant residue on posterior pharyngeal wall and vallecula. She had small pieces of solids on posterior wall and also in narrow space of vallecula. Additional Comments:: Patient demonstrated premature spillage into the vallecula prior to swallow initiation. Noted one small piece of solid on pharyngeal wall prior to swallow trigger. Initially, she swallowed soup base with trigger at vallecula then continued to masticate solid pieces. Swallow trigger was at the level of pyriform sinuses for solids. Regular Textures Food/Drink Provided:: 1/2 baby carrot, whole brazil nut, prune Swallow Onset Location:: Tongue Base, Vallecula and Pyriform Sinuses PAS Score: PAS Score *1 Visual Analysis of Swallowing Efficiency and Safety (VASES) after the swallow: Oropharynx and Hypopharynx Comments:: Difficult to determine how much was in vallecula due limited ability to see below tissue intruding from sides. One piece was observed to be in this space. Observed one piece of brazil nut on laryngeal side of epiglottis but did not observe it going into airway. (See image 5) Observed residue at the post cricoid region which may be indicative of UES dysfunction. (See image 6). Strategies Trialed:: Multiple swallows and 2 liquid washes were used to clear brazil nut. She independently used a double swallow with the carrot and it cleared majority of residue. Additional Comments:: With brazil nut, Patient needed several swallows to attempt to clear residue. She continued to have pieces on posterior pharyngeal wall as well as in vallecula. Patient took over 2 minutes to clear majority of residue and 2 liquid washes. [place] nut was never fully cleared. With 1/2 baby carrot it appeared for the first swallow that majority of carrot remained but she exhibited an independent second swallow which cleared most of residue. Prune was taken in 1/2 bite of prune. in two bites, one swallow trigger was at the base of the tongue and the 2nd swallow was the the level of the vallecula. 1st swallow cleared well from oropharynx and after the swallow observed residue from superior base of tongue to go down that needed another swallow to clear. Diagnosis/Impressions Diagnosis: oropharyngeal dysphagia Impressions: The oral phase is marked by... - Decreased bolus control w/ posterior loss of liquids to the pyriform sinuses prior to the onset of the swallow. - Solids spilled only to the vallecula for pudding consistency and regular consistency had spillage to the pyriform sinuses. The pharyngeal phase is marked by... - No aspiration or penetration noted at any time. However, she is at risk due to the amount of residue after the swallow. - Delayed swallow onset. - Decreased pharyngeal contraction on all swallows via visualization of "green out" where the bolus was visible on the camera vs. being constricted by the pharyngeal muscles. - Clearance of solids and purees was better with an effortful swallow paired with a small bite and when there was small amount of residue a double swallow effectively cleared. - Observed residue at the post cricoid region after solids Swallowing Impairment: Impaired Oropharyngeal Transport, Premature Posterior Loss, Decreased Pharyngeal Contraction and Other Swallowing Impairment Comments: Reduced tongue base retraction, decreased hyolaryngeal excursion, decreased UES opening/closure. Recommendations Diet: Soft and Bite Sized Textures and Thin Liquids Medication Administration:: Whole in puree Compensatory Strategies: Small Bites, Small Sips, Slow Rate, Multiple Swallows, Alternate bites/solids and sips/liquids, Sitting upright and Remain sitting upright for 30 minutes after PO intake Recommend Repeat Instrumental Swallow Assessment: Yes Need for Skilled Speech Therapy Services: Yes Education Completed: 1. Described result of evaluation., 2. Pt understands evaluation & agrees with goals and treatment plan. and 7. Pt requires further education on strategies & risks. Frequency Frequency: 1x/Week Additional (Frequency): Recommended weekly until patient is able to demonstrate exercises independently and fully demonstrate understanding of diet recommendations as well as compensatory strategies then patient may complete exercises at home. A repeat FEES is recommended and scheduled on June pending agreement from physician via prescription. Duration: 2 Months Goals that are Established Patient/Family Goal: Patient would like to eat without difficulty. Determination:: Goals will be added/modified as deemed necessary and appropriate. Therapy will be discontinued when results of re-evaluation indicate therapy is no longer needed or lack of progress has been documented. Goal #1: Patient will demonstrate and utilize recommended compensatory swallowing techniques to facilitate improved airway protection and decreased risk for aspiration during PO intake, across 3 out of 3 sessions. Goal #2: Pt will complete oropharyngeal exercises for 10 reps, 3x/day independently to improve tongue base retraction, PES opening/distention, and hyolaryngeal elevation and excursion as measured by pt & caregiver compliance reports over 3 sessions. Goal #3: Repeat FEES.
--- NOTE | 2025-05-31 12:49 | SP.FEES_ITS ---
FEES Patient Information Date of Evaluation: 05/15/25 Time of Evaluation: 10:10 Diagnosis: Dysphagia Referring Physician: Dr. Malone Staff Providing this Care/Treatment:: RADHA Direct Billable Minutes: 120 History: Past Medical History:: shortness of breath, obstructive sleep apnea (PRAMOD), long- term use of 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, paroxysmal atrial fibrillation, asthma, near syncope, atrial tachycardia (10/14/18), varicose veins in her leg, vestibular neuritis, osteopenia, osteoarthritis, chronic venous insufficiency, glaucoma, and essential hypertension, A-FIB, GERD, post nasal drip. TX/DX History:: No and MBSS Subjective: Subjective:: Patient is experiencing difficulty swallowing with foods getting stuck and coughing often during oral intake. She had an MBSS on 06/14/24 with regular foods with thin liquids recommended with the following strategies recommended: Multiple Swallows, Alternate bites/solids and sips/liquids, Sitting upright and Remain sitting upright for 30 minutes after PO intake. Diagnosis was oropharyngeal dysphagia, esophageal dysphagia with FEES recommended at that time to visualize structures. GI was recommended and patient is being followed by Dr. John with her next appointment on June 2025. Current Diet: Drinks/Liquids:: Thin Foods:: Regular Medication Administration:: orally Respiratory Status Observation:: Pulse ox was 91 Vocal Quality: Observations:: WFL Comments:: Patient reported she has difficulty singing. Cognition: Observations:: WFL Position During FEES: Position During FEES:: Upright Location: In Chair Fiberoptic Endoscope: Size: 3.4 mm Nare Used:: Right Anatomy: Nasopharynx Tissue Description: [place] red Anatomical Findings: Anatomical Findings:: Observed patient to have white patchy areas at base of tongue. (See image 1) She appeared to have bilateral excrescences to the right and left of vallecula protruding into the vallecula. ( See image 2) Secretions: Description:: Thick and Clear Location:: Oropharynx Phonation: Arytenoid Adduction: Abnormal Comment:: Arytenoid cartilage appeared to have edema also with asymmetrical movement at times along with intermittent quivering. ( see image 3) Penetration-Aspiration Scale Penetration-Aspiration Scale Thin Liquids by Single Cup Food/Drink Provided:: Water Swallow Onset Location:: Pyriform Sinuses PAS Score: PAS Score *1 Visual Analysis of Swallowing Efficiency and Safety (VASES) after the swallow: O ropharynx and Hypopharynx Comments:: Minimal residue in pyriform sinuses after 2 single drinks then independent second swallow cleared residue. Strategies Trialed:: Patient used an independent double swallow. Thin Liquids by Sequential Cup Food/Drink Provided:: Water-3 drinks sequentially Swallow Onset Location:: Vallecula Strategies Trialed:: Patient used an independent double swallow. Additional Comments:: Observed thin liquid coming over epiglottis on right side prior to trigger of swallow but did not enter airway. After 2 single drinks and 3 sequential drinks, Patient reported "Feels like I'm burping". Slightly Thick Liquids by Single Cup Food/Drink Provided:: Smoothie that had pieces of blueberry skins and other small pieces. Swallow Onset Location:: Pyriform Sinuses PAS Score: PAS Score *1 Visual Analysis of Swallowing Efficiency and Safety (VASES) after the swallow: O ropharynx Comments:: Noted significant diffuse residue on base of tongue, posterior pharyngeal wall and in vallecula which did not clear with a double swallow. ( see image 4) Strategies Trialed:: Small sip plus effortful swallow had reduced residue. Puree Textures Food/Drink Provided:: Thick pudding 1/2 spoonful. Swallow Onset Location:: Vallecula PAS Score: PAS Score *1 Visual Analysis of Swallowing Efficiency and Safety (VASES) after the swallow: O ropharynx Comments:: Scattered residue that needed several swallows to clear. Strategies Trialed:: Multiple swallows. Minced & Moist Textures Food/Drink Provided:: Soup with small pieces of soft vegetables - Mixed consistency Swallow Onset Location:: Vallecula and Pyriform Sinuses PAS Score: PAS Score *1 Visual Analysis of Swallowing Efficiency and Safety (VASES) after the swallow: O ropharynx Comments:: Significant residue on posterior pharyngeal wall and vallecula. She had small pieces of solids on posterior wall and also in narrow space of vallecula. Additional Comments:: Patient demonstrated premature spillage into the vallecula prior to swallow initiation. Noted one small piece of solid on pharyngeal wall prior to swallow trigger. Initially, she swallowed soup base with trigger at vallecula then continued to masticate solid pieces. Swallow trigger was at the level of pyriform sinuses for solids. Regular Textures Food/Drink Provided:: 1/2 baby carrot, whole brazil nut, prune Swallow Onset Location:: Tongue Base, Vallecula and Pyriform Sinuses PAS Score: PAS Score *1 Visual Analysis of Swallowing Efficiency and Safety (VASES) after the swallow: O ropharynx and Hypopharynx Comments:: Difficult to determine how much was in vallecula due limited ability to see below tissue intruding from sides. One piece was observed to be in this space. Observed one piece of brazil nut on laryngeal side of epiglottis but did not observe it going into airway. (See image 5) Observed residue at the post cricoid region which may be indicative of UES dysfunction. (See image 6). Strategies Trialed:: Multiple swallows and 2 liquid washes were used to clear brazil nut. She independently used a double swallow with the carrot and it cleared majority of residue. Additional Comments:: With brazil nut, Patient needed several swallows to attempt to clear residue. She continued to have pieces on posterior pharyngeal wall as well as in vallecula. Patient took over 2 minutes to clear majority of residue and 2 liquid washes. [place] nut was never fully cleared. With 1/2 baby carrot it appeared for the first swallow that majority of carrot remained but she exhibited an independent second swallow which cleared most of residue. Prune was taken in 1/2 bite of prune. in two bites, one swallow trigger was at the base of the tongue and the 2nd swallow was the the level of the vallecula. 1st swallow cleared well from oropharynx and after the swallow observed residue from superior base of tongue to go down that needed another swallow to clear. Diagnosis/Impressions Diagnosis: oropharyngeal dysphagia Images: Image 1 Base of tongue Image 2 Vallecula Image 3 asymmetrical movement Image 4 Residue from smoothie Image 5 Residue - [place] nut Image 6 Post Cricoid region residue Impressions: The oral phase is marked by... - Decreased bolus control w/ posterior loss of liquids to the pyriform sinuses prior to the onset of the swallow. - Solids spilled only to the vallecula for pudding consistency and regular consistency had spillage to the pyriform sinuses. The pharyngeal phase is marked by... - No aspiration or penetration noted at any time. However, she is at risk due to the amount of residue after the swallow. - Delayed swallow onset. - Decreased pharyngeal contraction on all swallows via visualization of "green out" where the bolus was visible on the camera vs. being constricted by the pharyngeal muscles. - Clearance of solids and purees was better with an effortful swallow paired with a small bite and when there was small amount of residue a double swallow effectively cleared. - Observed residue at the post cricoid region after solids Swallowing Impairment: Impaired Oropharyngeal Transport, Premature Posterior Loss, Decreased Pharyngeal Contraction and Other Swallowing Impairment Comments: Reduced tongue base retraction, decreased hyolaryngeal excursion, decreased UES opening/closure. Recommendations Diet: Soft and Bite Sized Textures and Thin Liquids Medication Administration:: Whole in puree Compensatory Strategies: Small Bites, Small Sips, Slow Rate, Multiple Swallows, Alternate bites/solids and sips/liquids, Sitting upright and Remain sitting upright for 30 minutes after PO intake Recommend Repeat Instrumental Swallow Assessment: Yes Need for Skilled Speech Therapy Services: Yes Education Completed: 1. Described result of evaluation., 2. Pt understands evaluation & agrees with goals and treatment plan. and 7. Pt requires further education on strategies & risks. Frequency Frequency: 1x/Week Additional (Frequency): Recommended weekly until patient is able to demonstrate exercises independently and fully demonstrate understanding of diet recommendations as well as compensatory strategies then patient may complete exercises at home. A repeat FEES is recommended and scheduled on June pending agreement from physician via prescription. Duration: 2 Months Goals that are Established Patient/Family Goal: Patient would like to eat without difficulty. Determination:: Goals will be added/modified as deemed necessary and appropriate. Therapy will be discontinued when results of re-evaluation indicate therapy is no longer needed or lack of progress has been documented. Goal #1: Patient will demonstrate and utilize recommended compensatory swallowing techniques to facilitate improved airway protection and decreased risk for aspiration during PO intake, across 3 out of 3 sessions. Goal #2: Pt will complete oropharyngeal exercises for 10 reps, 3x/day independently to improve tongue base retraction, PES opening/distention, and hyolaryngeal elevation and excursion as measured by pt & caregiver compliance reports over 3 sessions. Goal #3: Repeat FEES.
--- NOTE | 2025-06-26 18:11 | HP.SP.DC ---
ST Discharge Summary Discharged: Discharge: Cady Berumen is discharged from [facility] speech therapy at her request as of 06/26/25. She was initially evaluated on 04/26/25 with a diagnosis of dysphagia. A fiberoptic endoscopic evaluation of the swallow was completed on 05/15/25. She attended two sessions (one on 05/22/25 and 06/26/25). During the first session she was educated on results of FEES and recommendations. She was given exercises for home completion as well as strategies for safer oral intake. She cancelled a session in between due to medical issues. During the June session she requested to be discharged and requested repeat FEES to be cancelled due to other medical concerns. She was provided with information on how to return to therapy and repeat FEES when she is ready. Thank you for allowing me to participate in the care of this patient.
== END 2025-06-26 19:00 | disposition home or self-care (01) ==
LOC: SP 14:30
PROVIDERS: PCP Internal Medicine; Referring Provider Internal Medicine Gastroenterology; Visit Provider Internal Medicine Gastroenterology
DX: R13.12 Dysphagia, oropharyngeal phase (principal); K21.9 Gastro-esophageal reflux disease without esophagitis
CPT/HCPCS: 92526; 92610; 92612

== ENCOUNTER 2025-07-21 12:37 | Outpatient (RCR) | payer BC, SELFPAY ==
[2025-06-26 12:05] LABS: INR Fingerstick 2.5
[2025-07-21 12:47] LABS: INR Fingerstick 2.1
== END 2025-07-22 18:00 | disposition home or self-care (01) ==
LOC: LAB 12:37
PROVIDERS: PCP Internal Medicine; Referring Provider Nurse Practitioner Family; Visit Provider Nurse Practitioner Family
DX: I48.0 Paroxysmal atrial fibrillation (principal); Z79.01 Long term (current) use of 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
CPT/HCPCS: 36416; 85610

== ENCOUNTER 2025-07-27 12:16 | Emergency (ER) | payer BC, SELFPAY ==
[2025-07-27 12:17] VITALS: BP 172/75; PULSE 63; RESP 18; TEMP 36.4; O2SAT 99
--- NOTE | 2025-07-27 12:48 | EDS_ITS ---
HPI History of Present Illness Chief Complaint: Head Injury Informant: patient Onset/Context/Timing Onset: Today Mechanism/Context: Blunt Injury and Fall Current Severity: Moderate Maximum Severity: Moderate Narrative Narrative: 79-year-old female history of A-fib on Coumadin. Stepped outside slipped on the ice and hit her head and believes on her deck. No LOC. But she is on Coumadin. This occurred about an hour ago. She denies any significant headache. She does have a contusion to the right side of her scalp. No vomiting. Denies any other injuries. Came in because of the head injury and being on the blood thinner. She just had her Coumadin level checked in the last several days. 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 Paroxysmal atrial fibrillation Change in bowel habit Asthma Near syncope Atrial tachycardia (10/14/18) Varicose vein of leg Vestibular neuritis Osteopenia Osteoarthritis Chronic venous insufficiency Glaucoma Essential (primary) hypertension Home Medications ?Medication ?Instructions ?Recorded ?Last Taken ?Type latanoprost 0.005 % eye drops 1 drp EACH EYE QHS eye h ealth 03/10/16 03/14/25 History coenzyme Q10 50 mg chewable tablet 30 mg PO DAILY 05/2403/14/25 History metoprolol tartrate 25 mg tablet 12.5 mg (1/2 x 25 mg) PO BID PRN 09/09/24 11/28/24 Rx afib #180 tabs timolol maleate 0.5 % eye drops 1 drp ophthalmic (eye) BID 09/26/24 03/15/25 History warfarin 5 mg tablet 7.5 mg PO SUTUTHSA 11/28/24 03/14/25 History warfarin 5 mg tablet 5 mg PO .COMPLEX #120 tabs 0 01/26/25 03/14/25 Rx ascorbic acid (vitamin C) 500 mg 1 g PO DAILY 03/15/25 Unknown History tablet (C-500) cholecalciferol (vitamin D3) 25 2,000 unit PO DAILY vi tamin 03/28/25 Unknown History mcg (1,000 unit) tablet oxycodone-acetaminophen 5 mg-325 1 tab PO TID PRN PRN pain 10/15/25 Unknown History mg tablet Allergy/AdvReac Type Severity Reaction Status Date / Time cat dander Allergy Mild congestion Verified 07/27/25 12:20 grass pollen Allergy Mild Cough, Verified 07/27/25 12:20 rhinitis house dust Allergy Mild Cough, Verified 07/27/25 12:20 rhinitis mold Allergy Mild Cough, Verified 07/27/25 12:20 rhinitis tree and shrub pollen Allergy Mild Cough, Verified 07/27/25 12:20 rhinitis Sulfa (Sulfonamide Allergy Itching Verified 07/27/25 12:20 Antibiotics) losartan AdvReac Severe dizziness, Verified 07/27/25 12:20 severe amlodipine AdvReac Intermediate dizziness Verified 07/27/25 12:20 lisinopril AdvReac Intermediate Nagging Verified 07/27/25 12:20 dry cough Benzodiazepines AdvReac Other Verified 07/27/25 12:20 diazepam (From Valium) AdvReac Other Verified 07/27/25 12:20 Family History Father Myocardial infarction from [place] age 61 Heart disease Diabetes Sister Breast cancer 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 Denies nausea, headache or vomiting. Constitutional Constitutional ED: Denies chills or fever(s) Eyes Eyes: Denies blurry vision ENT ENT ED: Denies ear pain Cardiovascular Cardiovascular: Denies chest pain Respiratory/Chest Respiratory/Chest: Denies cough or dyspnea Gastrointestinal Gastrointestinal: Denies abdominal pain Genitourinary Genitourinary ED: Denies dysuria or hematuria Integumentary Denies abscess Neurologic Neurologic: Denies headache(s) Psychiatric Psychiatric: Denies anxiety Endocrine Endocrinology: Denies cold intolerance Hematologic/Lymphatic Hematologic/Lymphatic: Denies lymphadenopathy Allergic/Immunologic Allergic/Immunologic ED: Denies mouth swelling, tongue swelling or urticaria EXAM Physical Exam Narrative Exam Narrative: 79-year-old female sitting upright in a chair vital signs are stable afebrile. H EENT exam pupils are react light. No facial tenderness or trauma or bruising. There is a contusion about the size of half of a tennis ball on the right lateral scalp. No bleeding. No laceration. Rest of her scalp and left side are nontender. C-spine and neck are nontender. Back and spine are nontender. Lungs clear to auscultation. Heart rate about 63 no murmur. Chest wall ribs nontender. Abdomen soft nontender. Pelvic girdle intact. Moving all 4 extremities. Normal manager reading strength. Nontender deformity. Neurologically she is awake alert. Answering questions following commands. GCS 15. Const Vital Signs: 07/27/25 12:17 Temperature 97.5 F L Temperature Source Temporal Pulse Rate 63 Respiratory Rate 18 Blood Pressure 172/75 H Blood Pressure Mean 107 Pulse Ox 99 Oxygen Delivery Method Room Air MDM MDM MDM Narrative Medical decision making narrative: 79-year-old female on Coumadin due to A-fib slipped on the ice fell hit the right side of her head has a contusion to the right scalp. CAT scan being obtained. She is not waiting for pain. History & Record Review Additional record(s) reviewed:: Prior outpatient record, Prior ED visit and Prior labs Discharge Plan Triage Chief Complaint: Head Injury ED Provider: Brian Keller Dx/Rx/DC Orders Prescriptions: No Action latanoprost 1 DROP bottle 1 drp EACH EYE QHS cholecalciferol (vitamin D3) 25 mcg (1,000 unit) tablet 2,000 unit PO DAILY coenzyme Q10 50 MG tablet,chewable 30 mg PO DAILY war[facility]in 5 [facility] Protocol: Dose Management Condition: Thursday Dose/Route: 7.5 mg Instruction: 1.5 x 5 mg tablets Condition: Thursday Dose/Route: 5 mg Instruction: 1 x 5 mg tablet Condition: Thursday Dose/Route: 7.5 mg Instruction: 1.5 x 5 mg tablets Condition: Thursday Dose/Route: 5 mg Instruction: 1 x 5 mg tablet Condition: Dose/Route: 7.5 mg Instruction: 1.5 x 5 mg tablets Condition: Thursday Dose/Route: 5 mg Instruction: 1 x 5 mg tablet Condition: Thursday Dose/Route: 5 mg Instruction: 1 x 5 mg tablet Protocol Text: Adjustment Start Date: Thursday07/21/25 INR Value: 2.1 INR Date: 07/21/25 Recheck Date: 07/28/25 timolol maleate 0.5 % drops 1 drp ophthalmic (eye) BID ascorbic acid (vitamin C) [C-500] 500 mg tablet 1 g PO DAILY oxycodone-acetaminophen 5-325 mg tablet 1 tab PO TID PRN PRN (Reason: pain) metoprolol tartrate 25 mg tablet 12.5 mg PO BID PRN (Reason: afib) Qty: 180 3RF warfarin 5 mg tablet 5 mg PO .COMPLEX Qty: 120 3RF Protocol: Dose Management Condition: Thursday Dose/Route: 7.5 mg Instruction: 1.5 x 5 mg tablets Condition: Thursday Dose/Route: 5 mg Instruction: 1 x 5 mg tablet Condition: Thursday Dose/Route: 7.5 mg Instruction: 1.5 x 5 mg tablets Condition: Thursday Dose/Route: 5 mg Instruction: 1 x 5 mg tablet Condition: Dose/Route: 7.5 mg Instruction: 1.5 x 5 mg tablets Condition: Thursday Dose/Route: 5 mg Instruction: 1 x 5 mg tablet Condition: Thursday Dose/Route: 5 mg Instruction: 1 x 5 mg tablet Protocol Text: Adjustment Start Date: Thursday07/21/25 INR Value: 2.1 INR Date: 07/21/25 Recheck Date: 07/28/25 Rx Instructions: 5 mg orally M/W/F, 7.5 mg (1.5 tablets) S/T//S or as directed Primary Care Provider: Moon Malone Referrals: Moon Malone MD [Primary Care Provider, Internal Medicine] Print Language: Croatian
--- NOTE | 2025-07-27 13:05 | CT_ITS ---
PROCEDURE: BRAIN/HEAD WITHOUT CONTRAST 07/27/2025 REASON FOR EXAM: HEAD TRAUMA ON COUMADIN TECHNIQUE: Procedure Code: CTBR Modality: CT Procedure: BRAIN/HEAD WITHOUT CONTRAST Coronal and Sagittal reconstruction series were provided. One or more dose reduction techniques were used (e.g., Automated exposure control, adjustment of the mA and/or kV according to patient size, use of iterative reconstruction technique. RADIATION DOSE SUMMARY: CTDlvol: 44.99 mGy DLP: 846.73 mGycm COMPARISON: June 22, 2024 FINDINGS: Brain: Low density in the periventricular white matter suggests mild chronic small vessel ischemic changes. Atherosclerotic calcification of the cavernous portions of the internal carotid arteries bilaterally. CSF Spaces: Mild generalized cerebral atrophy Sinuses/Mastoids: Clear at visualized levels Bones: Unremarkable CT/Brain/Head without Contrast IMPRESSION: CHRONIC CHANGES. NO ACUTE FINDINGS. Reading Location: [place] [id number]
[2025-07-27 13:42] VITALS: BP 164/78; PULSE 78; RESP 16; TEMP 36.6; O2SAT 100
== END 2025-07-27 13:42 | disposition home or self-care (01) ==
PROVIDERS: Emergency Provider Emergency Medicine; PCP Internal Medicine; Visit Provider Emergency Medicine
DX: S00.03XA Contusion of scalp, initial encounter (principal); I48.91 Unspecified atrial fibrillation; I10 Essential (primary) hypertension; Z79.01 Long term (current) use of 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; W00.0XXA Fall on same level due to ice and snow, initial encounter
CPT/HCPCS: 70450; 99282

== ENCOUNTER 2025-08-04 12:01 | Outpatient (RCR) | payer BC, SELFPAY ==
[2025-07-28 17:06] LABS: INR Fingerstick 1.8
[2025-08-04 12:31] LABS: INR Fingerstick 2.0
== END 2025-08-04 18:00 | disposition home or self-care (01) ==
LOC: LAB 12:01
PROVIDERS: PCP Internal Medicine; Referring Provider Nurse Practitioner Family; Visit Provider Nurse Practitioner Family
DX: I48.0 Paroxysmal atrial fibrillation (principal); Z79.01 Long term (current) use of 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
CPT/HCPCS: 36416; 85610

== ENCOUNTER 2025-08-06 20:38 | Emergency (ER) | payer BC, SELFPAY ==
[2025-08-06 20:39] VITALS: BP 176/83; PULSE 67; RESP 16; TEMP 36.3; O2SAT 95
--- NOTE | 2025-08-06 20:47 | CT_ITS ---
PROCEDURE: BRAIN/HEAD WITHOUT CONTRAST 08/06/2025 REASON FOR EXAM: FELL AND POSTERIOR SCALP TRAUMA. ON BLOOD THINNER TECHNIQUE: Procedure Code: CTBR Modality: CT Procedure: BRAIN/HEAD WITHOUT CONTRAST Coronal and Sagittal reconstruction series were provided. One or more dose reduction techniques were used (e.g., Automated exposure control, adjustment of the mA and/or kV according to patient size, use of iterative reconstruction technique. RADIATION DOSE SUMMARY: CTDlvol: 45 mGy DLP: 897.4 mGycm COMPARISON: 27 July 2025. FINDINGS: Brain: Cerebrum: Mild loss of cerebral volume. Negative for mass the frontal, parietal, temporal and occipital lobes otherwisenegative. White matter: Mild periventricular white matter changes. Cerebellum: Negative. Negative for mass. Negative for acute infarction. CSF pathways and ventricles: Negative. Negative for ventricular dilatation or obstruction. Basal ganglia and thalami: Negative. No acute infarctions. Brainstem: Midbrain, taye and medulla scratchnegative. Calvarium: Negative. Negative for fractures. Orbital structures: Globes negative. Extraocular muscles negative. Paranasal sinuses: No air fluid levels. Remainder of the sinuses negative. Vascular structures: Moderate calcifications of the distal intracranial internal carotid arteries. Soft tissues: Slight right parietal soft tissue swelling.. Other: : Negative for acute intracranial hemorrhage. Negative for acute infarction. Remainder of exam negative. CT/Brain/Head without Contrast IMPRESSION: Atrophy and small-vessel disease Negative for acute intracranial pathology. Reading Location: [id number]
--- NOTE | 2025-08-06 20:48 | ED.VIS.FALL ---
HPI HPI - Fall History of Present Illness Chief Complaint: Fall Informant: patient Occured/Mechanism Occurred: Today Mechanism/Context: Yes same level fall and Yes slip Usually ambulates: Without assistance Pain/Injury Pain Location: head Current Severity: Moderate Maximum Severity: Moderate Associated Symptoms Associated Symptoms: Negative for Parasthesias, Weakness, Loss of function, Inability to ambulate, Loss of consciousness or Amnesia Narrative Narrative: 79-year-old female history of A-fib and hypertension on warfarin. Basically tripped or slipped in her garage tonight fell backwards hitting her head. No LOC. Denies other injuries. She is currently been dealing with sciatic pain for a while. 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 Paroxysmal atrial fibrillation Change in bowel habit Asthma Near syncope Atrial tachycardia (10/14/18) Varicose vein of leg Vestibular neuritis Osteopenia Osteoarthritis Chronic venous insufficiency Glaucoma Essential (primary) hypertension Home Medications ?Medication ?Instructions ?Recorded ?Last Taken ?Type latanoprost 0.005 % eye drops 1 drp [facility] 03/10/16 03/14/25 History coenzyme Q10 50 mg chewable tablet 30 mg PO DAILY 06/07/19 03/14/25 History metoprolol tartrate 25 mg tablet 12.5 mg (1/2 x 25 mg) PO BID PRN 09/09/24 11/28/24 Rx afib #180 tabs timolol maleate 0.5 % eye drops 1 drp ophthalmic (eye) BID 09/26/24 03/15/25 History warfarin 5 mg tablet 7.5 mg PO SUTUTHSA 11/28/24 03/14/25 History warfarin 5 mg tablet 5 mg PO .COMPLEX #120 tabs 01/26/25 03/14/25 Rx ascorbic acid (vitamin C) 500 mg 1 g PO DAILY 03/15/25 Unknown History tablet (C-500) cholecalciferol (vitamin D3) 25 2,000 unit PO DAILY vitamin 03/28/25 Unknown History mcg (1,000 unit) tablet oxycodone-acetaminophen 5 mg-325 1 tab PO TID PRN PRN pain 06/07/25 Unknown History mg tablet baclofen 10 mg tablet 10 mg PO TID 08/06/25 08/06/25 History Allergy/AdvReac Type Severity Reaction Status Date / Time cat dander Allergy Mild congestion Verified 08/06/25 20:42 grass pollen Allergy Mild Cough, Verified 08/06/25 20:42 rhinitis house dust Allergy Mild Cough, Verified 08/06/25 20:42 rhinitis mold Allergy Mild Cough, Verified 08/06/25 20:42 rhinitis tree and shrub pollen Allergy Mild Cough, Verified 08/06/25 20:42 rhinitis Sulfa (Sulfonamide Allergy Itching Verified 08/06/25 20:42 Antibiotics) losartan AdvReac Severe dizziness, Verified 08/06/25 20:42 severe amlodipine AdvReac Intermediate dizziness Verified 08/06/25 20:42 lisinopril AdvReac Intermediate Nagging Verified 08/06/25 20:42 dry cough Benzodiazepines AdvReac Other Verified 08/06/25 20:42 diazepam (From Valium) AdvReac Other Verified 08/06/25 20:42 Family History Father Myocardial infarction from [place] age 61 Heart disease Diabetes Sister Breast cancer Other senior living (current) use of 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 Surgical History history vein surgery history TMJ surgery History of cataract surgery S/P excision of Ramos's neuroma History of carpal tunnel release History of tonsillectomy Social History household members: spouse housing: house Smoking Status: Never smoker alcohol intake: current alcohol intake frequency: a few times a month substance use type: does not use what type of physical activity do you participate in: none do you feel safe at home: Yes ROS ROS ED ROS Narrative Denies recent illness. Constitutional Constitutional ED: Denies chills or fever(s) Eyes Eyes: Denies blurry vision ENT ENT ED: Denies ear pain Cardiovascular Cardiovascular: Denies chest pain Respiratory/Chest Respiratory/Chest: Denies cough or dyspnea Gastrointestinal Gastrointestinal: Denies abdominal pain Genitourinary Genitourinary ED: Denies dysuria Musculoskeletal Musculoskeletal: Denies arthralgias Neurologic Neurologic: Denies headache(s) Psychiatric Psychiatric: Denies anxiety or depression Endocrine Endocrinology: Denies polydipsia Hematologic/Lymphatic Hematologic/Lymphatic: Denies easy bleeding Allergic/Immunologic Allergic/Immunologic ED: Denies mouth swelling EXAM Physical Exam Narrative Exam Narrative: 79-year-old female sitting upright in bed. Vital signs stable afebrile. Pulse ox 95% on room air no hypoxia. H EENT exam pupils are round reactive light. No facial trauma or tenderness. Posterior scalp mild tenderness small contusion. No significant hematoma or laceration. No blood. C-spine and neck nontender. Right posterior upper back soft tissue tenderness. No bony deformity. Cervical, thoracic and lumbar spine nontender. Lungs clear to auscultation bilaterally. Heart rate about 70 no murmur. Chest wall and ribs nontender. Abdomen soft nontender. No peritoneal signs. Pelvic girdle intact. Moving all 4 extremities. Normal clothing examiner strength. Normal dorsi plantarflexion. No shortening or rotation either hip. Mild tenderness to her right lower SI joint. Neurologically she is awake alert. Answering questions following commands. GCS 15. No focal motor deficits. Const Vital Signs: 08/06/25 20:39 08/06/25 20:42 Temperature 97.4 F L Temperature Source Oral Pulse Rate 67 Respiratory Rate 16 Respiratory Effort Normal Non-Labored Respiratory Depth Normal Respiratory Pattern Normal Blood Pressure 176/83 H Blood Pressure Mean 114 Pulse Ox 95 Oxygen Delivery Method Room Air Room Air MDM MDM MDM Narrative Medical decision making narrative: 79-year-old female on warfarin due to A-fib fell and I hit the back of her head. CT of her brain being obtained. She is not complaining of any neck pain there is no C-spine tenderness. She was feeling fine prior to the fall I do not think she needs any other labs. 2 days ago she had her INR checked it was 2.0. Initially patient did not wining for pain but around 9:00 she did request something to be given [address] [place]. She returned from CAT scan. Exam unchanged. I did review her CAT scan of her brain and see no acute bleed. Awaiting radiologist formal interpretation. Repeat exam around 9:25 PM. Patient ambulated to the restroom difficulty. Her CAT scan showed no acute process per the radiologist. No intracranial bleed. She has been dealing with SI joint pain and had recent x-rays that were negative. History & Record Review Discussion w/independent historian: Patient Additional record(s) reviewed:: Prior outpatient record, Prior ED visit and Prior labs Radiography Diagnostic Testing: Clinical Impression(s) from Imaging Studies Brain CT 08/06/25 20:47 IMPRESSION: Atrophy and small-vessel disease Negative for acute intracranial pathology. Reading Location: [facility] Discharge Plan Triage Chief Complaint: Fall ED Provider: Brian Keller Dx/Rx/DC Orders Clinical Impression: Closed head injury, A-fib, Chronic anticoagulation Instructions: ED Head Injury (Adult) Prescriptions: No Action latanoprost 1 DROP bottle 1 drp EACH EYE [facility] cholecalciferol (vitamin D3) 25 mcg (1,000 unit) tablet 2,000 unit PO DAILY coenzyme Q10 50 MG tablet,chewable 30 mg PO DAILY [facility] Protocol: Dose Management Condition: Thursday Dose/Route: 5 mg Instruction: 1 x 5 mg tablet Condition: Thursday Dose/Route: 5 mg Instruction: 1 x 5 mg tablet Condition: Thursday Dose/Route: 7.5 mg Instruction: 1.5 x 5 mg tablets Condition: Thursday Dose/Route: 5 mg Instruction: 1 x 5 mg tablet Condition: Dose/Route: 7.5 mg Instruction: 1.5 x 5 mg tablets Condition: Thursday Dose/Route: 7.5 mg Instruction: 1.5 x 5 mg tablets Condition: Thursday Dose/Route: 5 mg Instruction: 1 x 5 mg tablet Protocol Text: Adjustment Start Date: Thursday08/04/25 INR Value: 2.0 INR Date: 08/04/25 Recheck Date: 08/18/25 baclofen 10 mg tablet 10 mg PO TID timolol maleate 0.5 % drops 1 drp ophthalmic (eye) BID ascorbic acid (vitamin C) [C-500] 500 mg tablet 1 g PO DAILY oxycodone-acetaminophen 5-325 mg tablet 1 tab PO TID PRN PRN (Reason: pain) metoprolol tartrate 25 mg tablet 12.5 mg PO BID PRN (Reason: afib) Qty: 180 3RF warfarin 5 mg tablet 5 mg PO .COMPLEX Qty: 120 3RF Protocol: Dose Management Condition: Thursday Dose/Route: 5 mg Instruction: 1 x 5 mg tablet Condition: Thursday Dose/Route: 5 mg Instruction: 1 x 5 mg tablet Condition: Thursday Dose/Route: 7.5 mg Instruction: 1.5 x 5 mg tablets Condition: Thursday Dose/Route: 5 mg Instruction: 1 x 5 mg tablet Condition: Dose/Route: 7.5 mg Instruction: 1.5 x 5 mg tablets Condition: Thursday Dose/Route: 7.5 mg Instruction: 1.5 x 5 mg tablets Condition: Thursday Dose/Route: 5 mg Instruction: 1 x 5 mg tablet Protocol Text: Adjustment Start Date: Thursday08/04/25 INR Value: 2.0 INR Date: 08/04/25 Recheck Date: 08/18/25 Rx Instructions: 5 mg orally //, 7.5 mg (1.5 tablets) S/// or as directed Primary Care Provider: Moon Malone Referrals: Moon Malone MD [Primary Care Provider, Internal Medicine] - As Needed Activity Restrictions/Additional Instructions: Ice to the back your scalp. Tylenol for pain. Return if severe headache, vomiting or not acting right. Hold your warfarin for 24 hours. You can restart it on Thursday. Print Language: [place]ian Disposition Disposition: Home, Self Care
[2025-08-06] MEDS: HYDROcodone Bitartrate/Apap 5/325 Tablet PO (21:08)
--- OUTSIDE RECORDS SUMMARY | 2025-08-06 21:17 | XMS RPT_ITS | CCD ---
Author Organization [facility] Care Team Providers Care Living Specialist Name Role Phone Igor BAILEY, Freddy Farrell Unavailable Keyanna Holguin Unavailable Keyanna Holguin Unavailable Dr. Chaitanya Estrella III Referring Provider Dr. Angel Simmons Attending Provider [facility], [facility] [phone] Dale PA, PA [facility] Referring Provider Vlad HONG, DIET AID-C Brielle Attending Provider Dr. Angel Simmons Other Provider Dale PA-C, [facility] Primary Care Provider Dale PA, PA [facility] Primary Care Provider Dale PA, PA Elizabeth Jiménez Referring Provider Shiraz DENNIS PA Desire Johnson Attending Provider Dale PA, PA [facility] Primary Care Provider Dale PA, PA Elizabeth Sakina Referring Provider Shiraz DENNIS PA Desire Johnson Attending Provider Dale PA-C, M [place] Primary Care Provider Barbra PA, PA Jagruti Attending Provider Dale PA, PA [facility] Primary Care Provider Dale PA, PA [facility] Referring Provider Dr. Linda Akins Emergency Provider Dr. Walker Perry Attending Provider Dr. Walker Perry Other Provider Dr. Scarlett Lzi Admit Provider Dr. Dominguez Garsia Attending Provider Koram, Dr. Celena Archibald Attending Provider Koram, Dr. Celena Archibald Other Provider Mynor Shirley MD Unavailable Dale PA, PA M Sakina Primary Care Provider [phone] Dale PA, PA M Sakina Referring Provider Ehsaner PAJEANNIE Attending Provider Dr. Linda Akins Emergency Provider Dr. Walker Perry Attending Provider Dr. Walker Perry Other Provider Dr. Scarlett Liz Admit Provider Dr. Dominguez Garsia Attending Provider Koram, Dr. Celena Archibald Attending Provider Koram, Dr. Celena Archibald Other Provider JEANNIE Bean Attending Provider Desire Weldon Unavailable Unavailable Dale PA, PA Elizabeth Jiménez Attending Provider Dale PA, PA M Sakina Primary Care Provider [phone] Dale PA, PA M Sakina Referring Provider TERRI GOMEZ Referring Unavailable DALE, M SAKINA Primary Care Unavailable DALE, M SAKINA Primary Care Unavailable TERRI GOMEZ Referring Unavailable Dale PA, PA M Sakina Primary Care Provider [phone] Dale PA, PA M Sakina Primary Care Provider Mynor Shirley MD Unavailable Dale PA, PA M Sakina Primary Care Provider Dale PA, PA M Sakina Referring Provider MD Pop Villanueva Attending Provider Dale PA, PA M Sakina Primary Care Provider Dale PA, PA M Sakina Referring Provider MD Pop Villanueva Attending Provider Weldon PA, JEANNIE Johnson Attending Provider Dale PA, PA M [place] Primary Care Provider Dale PA, PA M Sakina Referring Provider Dale PA-C, M Sakina Primary Care Provider Moon Teixeira MD Primary Care Provider Dale PA-C, M Sakina Primary Care Provider Glenn PA-C, Julieta L Unavailable Older [employer]IL[employer], José Miguel Unavailable Isma DENNIS-CYaa Unavailable Bobby DIET AID-CBart Attending Provider Bobby DIET AID-CBart Referring Provider Dr. Moon Teixeira MD Primary Care Provider Desire Bean Attending Provider Desire Bean Referring Provider Dr. Pedro Gusman MD Attending Provider Dr. Pedro Gusman MD Emergency Provider Bobby DIET AID-CBart Other Provider Dr. Moon Teixeira MD Referring Provider Dr. Yinka Lovelace MD Attending Provider Dr. Yinka Lovelace MD Referring Provider Dr. Moon Teixeira MD Attending Provider Dr. Dominguez Garsia MD Attending Provider Dr. Yinka Lovelace MD Other Provider Roof DIET AID-C, Bart H Attending Provider [phone] Roof DIET AID-C, Bart H Referring Provider [phone] Puneet BAILEY, Dr. Mustafa Primary Care Provider Dr. Isreal Ohara DO Emergency Provider Dr. Isreal Ohara DO Attending Provider Puneet BAILEY, Dr. Mustafa Primary Care Provider Roof DIET AID-C, Bart H Attending Provider [phone] Roof DIET AID-C, Bart H Referring Provider [phone] Puneet BAILEY, Dr. Mustafa Primary Care Provider Desire Bean Attending Provider Desire Bean Referring Provider Sun BAILEY, Dr. Mix Attending Provider Dr. Johnie Kelsey DO Emergency Provider Puneet BAILEY, Dr. Mustafa Primary Care Provider Roof DIET AID-C, Bart Juan Antonio Attending Provider [phone] Roof DIET AID-C, Bart H Referring Provider Dr. Yinka Lovelace MD Other Provider Dr. Johnie Kesley DO Attending Provider Dr. Moon Teixeira MD Referring Provider [place] BAILEY, Dr. Honeycutt Attending Provider Dr. Moon Teixeira MD Primary Care Provider Roof DIET AID-C, Bart Romano Attending Physician Roof DIET AID-C, Bart H Referring Provider [phone] Puneet BAILEY, Dr. Mustafa Primary Care Physician Dr. Yinka Lovelace MD Nurse Practitioner Dr. Johnie Kelsey DO Attending Physician Laure BURGESS, Dr. Jett Emergency Department Physi carissa [place] BAILEY, Dr. Honeycutt Attending Physician Florencio BURGESS, Dr. Romeo Attending Physician Florencio BURGESS, Dr. Romeo Emergency Department Physi carissa Dora BAILEY, Dr. Deras Attending Physician [phone] Dora BAILEY, Dr. Deras Referring Provider Roof DIET AID, Bart Romano Attending Unavailable Roof DIET AID, Bart H Referring Unavailable Ganta, Moon Primary Care Unavailable Yinka Lovelace Consulting Unavailable Shiraz DENNIS, Desire Johnson Attending Unavail able Shiraz DENNIS, Desire Johnson Referring Unavail able Ganta, Moon Primary Care Unavailable Ganta, Moon Attending Unavailable Ganta, Moon Referring Unavailable Ganta, Moon Primary Care Unavailable Roof DIET AID, Bart Romano Attending Unavailable Roof DIET AID, Bart H Referring Unavailable Ganta, Moon Primary Care Unavailable Yinka Lovelace Consulting Unavailable Roof DIET AID, Bart Romano Attending Unavailable Roof DIET AID, Bart H Referring Unavailable Ganta, Moon Primary Care Unavailable Yinka Lovelace Consulting Unavailable Shiraz DENNIS, Desire Johnson Attending Unavail able Shiraz DENNIS, Desire Johnson Referring Unavail able Ganta, Moon Primary Care Unavailable Roof DIET AID, Bart Romano Attending Unavailable Roof DIET AID, Bart H Referring Unavailable Ganta, Moon Primary Care Unavailable Yinka Lovelace Consulting Unavailable Yinka Lovelace Attending Unavailable Yinka Lovelace Referring Unavailable Ganta, Moon Primary Care Unavailable Dominguez Garsia Attending Unavailable Shiraz DENNIS, Desire Johnson Referring Unavail able Ganta, Moon Primary Care Unavailable Dominguez Garsia Attending Unavailable Ganta, Moon Primary Care Unavailable Ganta, Moon Attending Unavailable Ganta, Moon Primary Care Unavailable Yinka Lovelace Attending Unavailable Ganta, Moon Referring Unavailable Ganta, Moon Primary Care Unavailable Roof DIET AID, Bart Romano Attending Unavailable Roof DIET AID, Bart H Referring Unavailable Ganta, Moon Primary Care Unavailable Yinka Lovelace Consulting Unavailable Braeden John Attending Unavailable Braeden John Referring Unavailable Ganta, Moon Primary Care Unavailable Adithya DIET AID, Rukhsana Attending Unavailable Alysha Vasquez Referring Unavailable Ganta, Moon Primary Care Unavailable Kashif Laird Attending Unavailabl e Kashif Laird Referring Unavailabl e Ganta, [facility] Primary Care Unavailable Roof DIET AID, Bart Romano Attending Unavailable Roof DIET AID, Bart H Referring Unavailable Ganta, Moon Primary Care Unavailable Yinka Lovelace Consulting Unavailable Alysha Vasquez Referring Unavailable Ganta, Moon Primary Care Unavailable Adithya HONG, Rukhsana Attending Unavailable Ganta, Moon Primary Care Unavailable Johnie Kelsey Attending Unavailable Yinka Lovelace Attending Unavailable Ganta, Moon Referring Unavailable Ganta, Moon Primary Care Unavailable Roof DIET AID, Bart Romano Attending Unavailable Roof DIET AID, Bart H Referring Unavailable Ganta, Moon Primary Care Unavailable Yinka Lovelace Consulting Unavailable Ganta, Moon Primary Care Unavailable Pedro Gusman Attending Unavailable Ganta, Moon Primary Care Unavailable Ousmane Matias Attending Unavailable Isreal Ohara Attending Unavailable Ganta, Moon Primary Care Unavailable Yinka Lovelace Attending Unavailable Yinka Lovelace Referring Unavailable Ganta, Moon Primary Care Unavailable Shiraz DENNIS, Desire Johnson Attending Unavail able Desire Bean Referring Unavail able Ganta, [facility] Primary Care Unavailable Roof DIET AID, Bart H Consulting Unavailable Roof DIET AID, Bart Romano Attending Unavailable Roof DIET AID, Bart H Referring Unavailable Ganta, Moon Primary Care Unavailable Roof DIET AID, Bart Romano Attending Unavailable Roof DIET AID, Bart H Referring Unavailable Ganta, Moon Primary Care Unavailable GANTA, MOON Primary Care Unavailable OLDERJOSÉ MIGUEL Referring Unavailable EDGAR DAVE Attending Unavailable GANTA, MOON Primary Care Unavailable ALEC ARTHRU Referring Unavailable GANTA, MOON Primary Care Unavailable ALEC ARTHUR Attending Unavailable GANTA, MOON Primary Care Unavailable SELF Referring Unavailable JOSÉ MIGUEL SALDAÑA Attending Unavailable GANTA, MOON Primary Care Unavailable DAQUAN BUCHANAN Referring Unavailable DAQUAN BUCHANAN Attending Unavailable GANTA, MOON Primary Care Unavailable YAA ASHBY Referring Unavailable GANTA, MOON Primary Care Unavailable ALEC ARTHUR Attending Unavailable GANTA, MOON Primary Care Unavailable TESTDAQUAN SAINZ Referring Unavailable TESTDAQUAN SAINZ Attending Unavailable GANTA, MOON Primary Care Unavailable OLDERJOSÉ MIGUEL Attending Unavailable GANTA, MOON Primary Care Unavailable OLDER, JOSÉ MIGUEL Referring Unavailable GANTA, MOON Attending Unavailable GANTA, MOON Primary Care Unavailable OLDER, JOSÉ MIGUEL Referring Unavailable GANTA, MOON Primary Care Unavailable GUCCI EMERY Referring Unavailable GANTA, MOON Primary Care Unavailable MYNOR SHIRLEY Referring Unavailable MARIA DE JESUS DESOUZA Attending Unavailable GANTA, MOON Primary Care Unavailable GANTA, MOON Referring Unavailable GANTA, MOON Primary Care Unavailable TESTRAKE, DAQUAN Referring Unavailable GANTA, MOON Primary Care Unavailable GANTA, MOON Attending Unavailable GANTA, MOON Primary Care Unavailable ALEC ARTHUR Attending Unavailable GANTA, MOON Primary Care Unavailable TESTRAKE, DAQUAN Referring Unavailable TESTRAKE, DAQUAN Attending Unavailable GANTA, MOON Primary Care Unavailable TESTRAKE, DAQUAN Referring Unavailable TESTRAKE, DAQUAN Attending Unavailable URMILA PICKENS Attending Unavailable GANTA, MOON Primary Care Unavailable GANTA, MOON Primary Care Unavailable EBENEZER ASHBYADETTE Attending Unavailable GANTA, MOON Primary Care Unavailable ISMA YAA Referring Unavailable GANTA, MOON Primary Care Unavailable ALEC ARTHUR Attending Unavailable Allergies Allergy Classification Reported Allergen(s) Allergy Type Date of Onset Reaction(s) Facility Benzodiazepines (1 source) diazePAM Drug Allergy 09-23-19 14 Intolerance [facility] Cats (1 source) Cat Animal Allergy (Dander) 11-29-19 15 Itching, Shortness of Breath [facility] Macrolides (antibiotic) (1 source) Azithromycin Drug Allergy 06-08-20 19 Other: See Comments [facility] Mold Extract (1 source) Mold Extract Drug Allergy 11-29-19 15 Itching [facility] Sulfonamides (antibiotic) (1 source) Sulfonamides (Antibiotic) Drug Allergy 06-13-20 05 Itching [facility] Donna grass pollen extract (1 source) Donna grass pollen extract Drug Allergy 11-29-19 15 Itching [facility] (6 sources) Sulfonamides (Antibiotic) drug allergy 05-14-20 17 [facility] Work Phone: (6 sources) PERFUME drug allergy 05-14-20 17 ill feeling [facility] Work Phone: (6 sources) VOLUMEN drug allergy 05-14-20 17 [facility] Work Phone: (20 sources) amLODIPine Drug Allergy 07-02-20 21 dizziness [facility] (20 sources) Benzodiazepines; Translations: [BENZODIAZEPINES] Propensity to adverse reactions 09-08-19 15 Mental Status Change [facility] (20 sources) diazePAM; Translations: [DIAZEPAM] Drug Allergy 09-23-19 14 Intolerance [facility] Comment on above: HALLUCINATIONS (20 sources) Grass pollen; Translations: [grass pollen] Allergy to substance 03-21-20 21 Cough, rhinitis [facility] (20 sources) house dust allergenic extract Drug Allergy 03-21-20 21 Cough, rhinitis [facility] (20 sources) Lisinopril Drug Allergy 03-21-20 21 Nagging dry cough [facility] (20 sources) Losartan Drug Allergy 08-12-20 21 dizziness, severe [facility] (20 sources) Mold Extract; Translations: [MOLD] Drug Allergy 11-29-19 15 Itching [facility] (20 sources) Sulfonamides (Antibiotic); Translations: [SULFA (SULFONAMIDE ANTIBIOTICS)] Allergy to substance 06-13-20 05 Itching [facility] (20 sources) Tree and shrub pollen; Translations: [tree and shrub pollen] Allergy to substance 03-21-20 21 Cough, rhinitis [facility] (20 sources) cat dander; Translations: [cat dander] Allergy to substance 03-21-20 21 congestion [facility] (20 sources) Azithromycin; Translations: [AZITHROMYCIN] Drug Allergy 06-08-20 19 Other: See Comments [facility] (20 sources) Cat; Translations: [CATS] Allergy to substance 11-29-19 15 Itching, Shortness of Breath [facility] (20 sources) House dust mite; Translations: [DUST MITES] Allergy to substance 11-29-19 15 Other: See Comments [facility] (20 sources) Seasonal allergy; Translations: [SEASONAL ALLERGIES] Allergy to substance 11-09-19 11 Cough [facility] (20 sources) Donna grass pollen extract; Translations: [GRASS POLLEN-DONNA, STANDARD] Drug Allergy 11-29-19 15 Itching [facility] (20 sources) Tree; Translations: [TREES] Allergy to substance 11-29-19 15 Itching [facility] (20 sources) Fragrances; Translations: [FRAGRANCES] Allergy to substance 11-29-19 15 Cough, Shortness of Breath [facility] (1 source) amLODIPine Drug Allergy 05-18-20 25 [facility] Repository (1 source) diazePAM Drug Allergy 05-18-20 [facility] (1 source) house dust allergenic extract Drug Allergy 05-18-20 [facility] (1 source) Lisinopril Drug Allergy 05-18-20 [facility] (1 source) Losartan Drug Allergy 05-18-20 [facility] (1 source) Mold Extract Drug Allergy 05-18-20 [facility] Medications Current Medications Medication Drug Class(es) Dates Sig (Normalized) Sig (Original) ascorbic acid 500 mg oral tablet (20 sources) Start: 03-15-2025 take 1 tablet by mouth once daily Start: 07-27-2020 End: 12-02-2021 take 1 capsule by mouth once daily as needed Ascorbic Acid (Vitamin C) 500 mg capsule, extended release Discontinued 500 mg PO DAILY as needed March 06, 2021 9:59am December 02, 2021 2:10pm Start: 05-14-2017 take 1 tablet by fletcher th once daily VITAMIN C TABS One tablet by mouth daily ASCORBIC ACID TABS [id number] Freddy Costa MD Start: 05-14-2017 take 1 tablet by fletcher th once daily VITAMIN C TABS One tablet by mouth daily ASCORBIC ACID TABS [id number] Freddy Costa MD End: 01-07-2022 ascorbic acid (VITAMIN C ORA L) Take by mouth. 01/07/2022 Discontinued (Discontinued by Patient) End: 01-07-2022 ascorbic acid (VITAMIN C ORA L) Take by mouth. 0 01/07/2022 Discontinued (Discontinued by Patient) Comment on above: Take by mouth. baclofen 10 mg oral tablet (20 sources) gamma-Aminobutyri c Acid-ergic Agonist Start: 02-10-2024 End: 11-11-2024 take 1 tablet by mouth every eight hours as needed baclofen 10 mg tablet Take 1 tablet by mouth three times a day as needed (muscle spasms). 30 tablet 1 11/11/2024 Active cholecalciferol 0.025 mg oral tablet (20 sources) Vitamin D Start: 03-28-2025 take 1 tablet by mouth once daily Start: 09-25-2020 take 2 capsules by out once daily Cholecalciferol, Vitamin D3, 50 mcg (2,000 unit) cap Take 2 capsules by mouth once daily. 60 capsule 11 09/25/2020 Active Start: 03-10-2016 End: 03-28-2025 take 1 tablet by mouth once daily Cholecalciferol (Vitamin D3) 1,000 UNIT tablet Discontinued 1000 U PO DAILY March 10, 2016 12:00am March 28, 2025 11:17am vitamin Start: 03-10-2016 take 1 tablet by fletcher th twice daily Cholecalciferol (Vitamin D3) 1,000 UNIT tablet Active 1000 U PO TWICE A DAY March 10, 2016 12:00am Comment on above: Take 2 capsules by m [facility] once daily. ubidecarenone 50 mg chewable tablet (20 sources) Start: 06-07-2019 Start: 05-14-2017 take 1 tablet by fletcher th once daily COQ10 100 MG CAPS One tablet by mouth daily COENZYME Q10 [id number] Freddy Costa MD Start: 05-14-2017 take 1 tablet by fletcher once daily COQ10 100 MG CAPS One tablet by mouth daily COENZYME Q10 [id number] Freddy Costa MD Start: 05-14-2017 take 1 tablet by fletcher once daily COQ10 100 MG CAPS One tablet by mouth daily COENZYME Q10 [id number] Freddy Costa MD doxycycline hyclate 100 mg oral capsule (3 sources) Tetracycline-class Drug Start: 04-28-2025 End: 05-05-2025 take 1 capsule by mouth twice daily doxycycline hyclate (VIBRAMYCIN) 100 mg capsule Take 1 capsule by mouth two times a day for 7 days. 14 capsule 04/28/2025 05/05/2025 Active Start: 01-21-2023 End: 01-31-2023 take 1 capsule by mouth twice daily doxycycline hyclate (VIBRAMYCIN) 100 mg capsule Take 1 capsule by mouth twice daily for 10 days. 20 capsule 0 01/21/2023 01/31/2023 Active Comment on above: Take 1 capsule by mo [facility] twice daily for 10 days. escitalopram 5 mg oral tablet (20 sources) Serotonin Reuptake Inhibitor Start: End: take 1 tablet by mouth once daily escitalopram oxalate (LEXAPRO) 5 mg tablet Indications: Anxiety Take 1 tablet by mouth once daily. 30 tablet 2 04/11/2025 Active Start: 05-17-2024 End: 06-22-2024 take 2 tablets [...] night 60 tablet 2 04/05/2024 10/26/2024 Discontinued latanoprost 0.05 mg/ml ophth almic solution (20 sources) Prostaglandin Analog Start: 08-13-2015 Start: 08-13-2015 take 1 drop(s) into the eye(s) once daily at bedtime latanoprost (XALATAN) 0.005 % ophthalmic solution Use 1 Drop in both eyes daily at bedtime. 0 08/13/2015 Active Comment on above: Use 1 Drop in both e yes daily at bedtime. mupirocin 0.02 mg/mg topical ointment (5 sources) RNA Synthetase Inhibitor Antibacterial Start: 04-21-2025 mupirocin (BACTROBAN) 2 % ointment Apply to affected area once daily. 30 g 2 04/21/2025 Active Timolol Maleate (20 sources) beta-Adrenergic Yvonne Start: 09-26-2024 Start: 09-26-2024 Timolol Maleat e 0.5 % drops Active 1 NMA OPHTHALMIC [...] as needed for pain HYDROCODONE-ACETAMIN OPHEN TABS [id number] Alexa Womack Start: 08-10-2014 End: 05-14-2017 VICODIN TABS as needed for p ain HYDROCODONE-ACETAMINOPHEN TABS [id number] Freddy Costa MD Start: 08-10-2014 End: 05-14-2017 VICODIN TABS as needed for p ain HYDROCODONE-ACETAMINOPHEN TABS [id number] Freddy Costa MD Start: 08-10-2014 VICODIN TABS a s needed for pain HYDROCODONE-ACETAMINOPHEN TABS [id number] Alexa Tricia Womack acetaminophen 325 mg / oxyCODONE hydrochloride 5 [...] on above: Take 1 tablet by fletcher every 8 hours as needed for pain for up to 7 days. [id number] 200 actuat albuterol 0.09 mg/actuat metered dose [...] hours as needed for wheezing/shortness of breath. Alpha Lipoic Acid 50 mg Capsule (3 sources) Start: 10-12-2022 End: 06-22-2024 take 1 capsule by mouth once daily Alpha Lipoic Acid 50 mg Capsule Discontinued 50 mg PO DAILY October 12, 2022 1:00am June 22, 2024 4:10pm supplement ALPHA LIPOIC ACID ORAL (20 sources) End: [...] mg tablet Discontinued 2.5 mg PO DAILY 30 June 21, 2021 12:00am July 02, 2021 5:03pm Start: 03-11-2021 End: 05-30-2021 take 1 tablet by mouth once daily Amlodipine 2.5 mg tablet Discontinued 2.5 mg PO DAILY 30 March 11, 2021 12:00am May 30, 2021 12:59pm [...] ASTRAGALUS EXT RACT POWD as directed ASTRAGALUS [id number] Alexa E Frase Start: 08-10-2014 ASTRAGALUS EXT RACT POWD as directed ASTRAGALUS [id number] Alexa E Frase Start: 08-10-2014 ASTRAGALUS EXT RACT POWD as directed ASTRAGALUS [id number] Alexa E Frase Start: 08-10-2014 ASTRAGALUS EXT RACT POWD as directed ASTRAGALUS [id number] Alexa E Frase azithromycin 250 mg oral [...] tablet by mouth daily BOSWELLIA CECILE EXTRACT [id number] Freddy Costa MD Start: 05-14-2017 take 1 tablet by fletcher th once daily BOSWELLIA CECILE EXTRACT POWD One tablet by mouth daily BOSWELLIA CECILE EXTRACT [id number] Freddy Costa MD Start: 05-14-2017 take 1 tablet by fletcher th once daily BOSWELLIA CECILE EXTRACT POWD One tablet by mouth daily SHAMARWELLIA CECILE EXTRACT [id number] Freddy Costa MD Start: 05-14-2017 take 1 tablet by fletcher th once daily BOSWELLIA CECILE EXTRACT POWD One tablet by mouth daily BOSWELLIA CECILE EXTRACT [id number] Freddy Costa MD Boswellia cecile extract (BOSWELLIA [...] 1 Each two times a d ay. DRIVING INSTRUCTOR'S BROOM (6 sources) Start: 05-14-2017 take 1 tablet by mouth once daily DRIVING INSTRUCTOR'S BROOM One tablet by mouth daily DRIVING INSTRUCTOR'S BROOM Freddy Costa MD Start: 05-14-2017 take 1 tablet by fletcher once daily DRIVING INSTRUCTOR'S BROOM One tablet by mouth daily DRIVING INSTRUCTOR[employer]S BROOM Freddy Costa MD chromic chloride (2 [...] on above: Take 1 capsule by mo [facility] once daily. ciclopirox 80 mg/ml topical solution [...] by Patient) Comment on above: once daily. [place] e CYANOCOBALAMIN, VITAMIN B-12, (VITAMIN B-12 ORAL) [...] above: Take 1 tablet by fletcher th three times daily as needed for Muscle Spasm. dextromethorphan hydrobromide 3 mg/ml / promethazine hydrochloride 1.25 mg/ml oral solution (18 sources) Phenothiazine, Uncompetitive W-eggezp-H-aspartate Receptor Antagonist, Sigma-1 Agonist Start: 023 End: take 5 mL by mouth every six [...] tablet Discontinued 1 mg PO AT BEDTIME 30 August 12, 2021 1:00am August 19, 2021 6:08pm Start: 08-12-2021 End: 08-12-2021 take 1 tablet by mouth at bedtime Doxazosin (Cardura) 2 mg tablet Discontinued 2 mg PO AT BEDTIME 30 August 12, 2021 1:00am August 12, 2021 5:45pm furosemide 20 mg oral tablet (20 sources) Loop Diuretic Start: 09-27-2024 End: 11-16-2024 take 1 tablet by mouth once daily in the morning Furosemide (Lasix) 20 mg tablet Discontinued 20 mg PO EVERY MORNING 20 11October 13, 2024 1:00am November 16, 2024 12:31pm [...] Start: 05-14-2017 take 1 tablet by fletcher twice daily [facility] TRIPLE MAGNESIUM COMPLEX 400 MG CAPS One tablet by mouth twice daily MAGNESIUM [id number] Freddy Costa MD Start: 05-14-2017 take 1 tablet by fletcher twice daily [facility] TRIPLE MAGNESIUM COMPLEX 400 MG CAPS One tablet by mouth twice daily MAGNESIUM [id number] Freddy Costa MD Start: 03-10-2016 End: 03-06-2021 [...] on above: Take 1 tablet by fletcher once daily. melatonin 1 mg sublingual tablet [...] Discontinued 0 PO per package directions 21 January 23, 2020 12:00am July 27, 2020 [...] needed for PRN for palpitations, tachycardia 30 June 26, 2021 3:34pm September 09, 2022 [...] Discontinued 12.5 MG PO TWICE A DAY June 05, 2021 9:50am July 02, 2021 3:16pm On Hold: Order Changed Start: 05-30-2021 End: 05-31-2021 take 1 tablet by mouth once daily Metoprolol Succinate 25 mg tablet extended release 24 hr Discontinued 25 mg PO DAILY May 30, 2021 1:04pm May 31, 2021 4:08pm Changing from Tartrate to Succinate for tolerance Start: 03-06-2021 End: 05-30-2021 take 2 tablets by mouth once daily Metoprolol Succinate 25 mg tablet extended release 24 hr Discontinued 12.5 mg PO DAILY 09 07March 06, 2021 12:00am May 30, 2021 12:59pm Changing from Tartrate to Succinate for tolerance Start: 03-06-2021 End: 05-30-2021 take 12.5 mg by mouth once daily Metoprolol Succinate Discontinued 12.5 MG PO DAILY March 06, 2021 12:00am May 30, 2021 12:59pm Start: 08-01-2020 End: 03-06-2021 Metoprolol Tartrate 25 mg ta blet Discontinued 12.5 mg PO TWICE A DAY 23 07August 01, 2020 1:00am March 06, 2021 4:02pm [...] WOMENS MULTIVITAMIN PLUS TABS daily MULTIPLE VITAMINS-MINERALS [id number] Alexa E Frase MULTIPLE VITAMINS-MINERALS (4 sources) Start: 08-10-2014 WOMENS MULTIVITAMIN PLUS TABS daily MULTIPLE VITAMINS-MINERALS [id number] Alexa E Frase Start: 08-10-2014 WOMENS MULTIVI TAMIN PLUS TABS daily MULTIPLE VITAMINS-MINERALS [id number] Alexa E Frase Trout Run-3 Fatty Acids (Fish Oil Concentrate) 1,000 mg capsule (20 sources) Start: 03-21-2021 End: 12-02-2021 take 1 capsule by mouth once daily Trout Run-3 Fatty Acids (Fish Oil Concentrate) 1,000 mg capsule Discontinued 1000 MG PO DAILY March 21, 2021 9:12am December 02, 2021 2:12pm Start: 03-21-2021 take 1 capsule by mo [facility] once daily Trout Run-3 Fatty Acids (Fish Oil Concentrate) 1,000 mg capsule Active 1000 MG PO DAILY March 21, 2021 9:12am Start: 03-21-2021 End: 12-02-2021 take 1 capsule by mouth once daily Trout Run-3 Fatty Acids (Fish Oil Concentrate) 1,000 mg capsule Discontinued 1000 mg PO DAILY March 21, 2021 12:00am December 02, 2021 2:12pm Start: 03-21-2021 End: 12-02-2021 take 1 capsule by mouth once daily Trout Run-3 Fatty Acids (Fish Oil Concentrate) 1,000 mg capsule Discontinued 1000 MG PO DAILY March 20, 2021 11:00pm December 02, 2021 1:12pm Start: 03-21-2021 End: 12-02-2021 take 1 capsule by mouth once daily Trout Run-3 Fatty Acids (Fish Oil Concentrate) 1,000 mg [...] TABS 1/2 tablet at night OXYBUTYNIN CHLORIDE [id number] Freddy Costa MD polyethylene glycol 3350 011184 mg / potassium chloride 2970 mg / sodium bicarbonate 6740 mg / sodium chloride 5860 mg / sodium sulfate 10346 mg powder for oral solution (20 sources) [...] 08-10-2014 PROBIOTIC CAPS as directed PROBIOTIC PRODUCT [id number] Alexa E Frase Start: 08-10-2014 PROBIOTIC CAPS as directed PROBIOTIC PRODUCT [id number] Alexa E Frase PROBIOTIC PRODUCT (3 sources) Start: 08-10-2014 PROBIOTIC CAPS as directed PROBIOTIC PRODUCT [id number] Alexa E Frase Start: 08-10-2014 PROBIOTIC CAPS as directed PROBIOTIC PRODUCT [id number] Alexa E Frase PROBIOTIC PRODUCT (1 source) Start: 08-10-2014 PROBIOTIC CAPS as directed PROBIOTIC PRODUCT [id number] Alexa E Frase rosuvastatin calcium 5 mg [...] daily VITAMINS E & D BEAUTY OIL 400-71096 UNIT/52ML OIL One tablet by mouth daily VIT D-VIT E-SAFFLOWER OIL [id number] Freddy Costa MD VIT D-VIT E-SAFFLOWER OIL (4 sources) Start: 05-14-2017 take 1 tablet by mouth once daily VITAMINS E & D BEAUTY OIL 400-04303 UNIT/52ML OIL One tablet by mouth daily VIT D-VIT E-SAFFLOWER OIL [id number] Freddy Costa MD Start: 05-14-2017 take 400-58971 table ts by mouth once daily VITAMINS E & D BEAUTY OIL 400-24947 UNIT/52ML OIL One tablet by mouth daily VIT D-VIT E-SAFFLOWER OIL [id number] Freddy Costa MD CHOLECALCIFEROL TABS (8 sources) Start: 08-10-2014 VITAMIN D TABS daily CHOLECALCIFEROL TABS [id number] Alexa E Frase Start: 08-10-2014 VITAMIN D TABS daily CHOLECALCIFEROL TABS [id number] Alexa E Frase warfarin sodium 5 mg oral tablet (20 sources) Vitamin K Antagonist Start: 10-12-2022 End: 11-28-2024 take 7.5 mg [...] October 12, 2022 1:00am Start: 03-26-2021 End: 01-26-2025 Warfarin 5 mg tablet Discont inued 5 mg PO .COMPLEX Protocol: Adjustment Start Date: 01/05/25INR Value: 3.1INR Date: 01/05/25Recheck Date: 02/04/25 Condition: Thursday Dose/Route: 7.5 mg Instructions: 1.5 x 5 mg tablets Condition: Thursday Dose/Route: 5 mg Instructions: 1 x 5 mg tablet Condition: Thursday Dose/Route: 7.5 mg Instructions: 1.5 x 5 mg tablets Condition: Thursday Dose/Route: 5 mg Instructions: 1 x 5 mg tablet Condition: Dose/Route: 7.5 mg Instructions: 1.5 x 5 mg tablets Condition: Thursday Dose/Route: 5 mg Instructions: 1 x 5 mg tablet Condition: Thursday Dose/Route: 7.5 mg Instructions: 1.5 x 5 mg tablets January 26, 2025 12:55pm January 26, 2025 12:58pm 5 mg orally M/W/F, 7.5 mg (1.5 tablets) S/T//S or as directed Please contact the information source for Protocol details. Comment on above: Take 1 tablet by daily except 7.5mg on ( [facility]) Problems Active Problems Problem Classification Problem Date Documented Da te Episodic/Chronic Acute bronchitis (20 sources) Acute bronchitis; Translations: [Acute bronchitis, unspecified] 06-08-2019 Episodic Adjustment disorders (2 sources) Grief finding; Translations: [Adjustment disorder with depressed mood] 06-09-2023 Chronic Anxiety disorders (3 sources) Mixed anxiety and depressive disorder; Translations: [Anxiety disorder, unspecified] Onset: 5 05-06-2024 Chronic Asthma (20 sources) Exacerbation of asthma; Translations: [Unspecified asthma with (acute) exacerbation] Onset: 8 Chronic Cardiac dysrhythmias (20 sources) Irregular heart beat; Translations: [Cardiac arrhythmia, unspecified] Onset: 9 Chronic Cardiac dysrhythmias (20 sources) Palpitations; Translations: [Palpitations] Onset: 5 01-13-2022 Episodic Chronic ulcer of skin (20 sources) Ankle ulcer; Translations: [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] Onset: 3 Resolved: 5 10-08-2014 Chronic Diabetes mellitus without complication (1 source) Impaired fasting glycemia; Translations: [Impaired fasting glucose] Episodic Disorders of lipid metabolism (3 sources) Mixed hyperlipidemia; Translations: [Mixed hyperlipidemia] Chronic E Codes: Fall (20 sources) Fall on same level from slipping, tripping or stumbling ; Translations: [Fall on same level from slipping, tripping and stumbling without subsequent striking against object, initial encounter] 01-13-2022 Episodic Essential hypertension (20 sources) Essential [...] dislocation of right toe(s), initial encounter] Episodic Mood disorders (20 sources) Severe recurrent major depression without psychotic features; Translations: [Major depressive disorder, recurrent severe without psychotic features] Onset: 9 11-29-2018 Chronic Mycoses (4 sources) Onychomycosis; Translations: [Tinea unguium] Onset: 5 03-04-2023 Episodic Nutritional deficiencies (20 sources) Vitamin D deficiency; Translations: [Vitamin D deficiency, unspecified] Onset: 4 09-20-2013 Chronic Nutritional deficiencies (2 sources) Cobalamin deficiency; Translations: [Deficiency of other specified B group vitamins] 04-05-2024 Episodic Occlusion or stenosis of precerebral arteries (20 sources) Bilateral stenosis of carotid arteries; Translations: [Occlusion and stenosis of bilateral carotid arteries] Onset: 4 03-21-2024 Chronic Open wounds of extremities (20 sources) Open wound of finger; Translations: [Unspecified open wound of unspecified finger without damage to nail, initial encounter] Onset: 5 Resolved: 5 10-08-2014 Episodic Osteoarthritis (20 sources) Osteoarthritis of finger joint; Translations: [Degenerative joint disease involving multiple joints] Onset: 7 05-22-2017 Chronic Other aftercare (20 sources) Long-term current use of anticoagulant; Translations: [intermediate (current) use of 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] 03-26-2021 Episodic Other aftercare (12 sources) Long-term current use of diuretic; Translations: [Encounter for therapeutic drug level monitoring] 09-27-2024 Episodic Other aftercare (9 sources) Anticoagulant effect; Translations: [intermediate (current) use of 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] 11-28-2024 Episodic Other aftercare (3 sources) Patient encounter status; Translations: [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] 12-30-2024 Episodic Other and ill-defined cerebrovascular disease (4 sources) Cerebral ischemia; Translations: [Transient cerebral ischemic attack, unspecified] 10-26-2024 Chronic Other circulatory disease (1 source) Choking sensation; Translations: [Other specified symptoms and signs involving the circulatory and respiratory systems] 04-05-2024 Episodic Other circulatory disease (1 source) Abnormal peripheral pulse; Translations: [Other specified symptoms and signs involving the circulatory and respiratory systems] 07-28-2024 Episodic Other congenital anomalies (8 sources) Spondylolisthesis; [...] classified] 08-17-2023 Episodic Other connective tissue disease (14 sources) Tendonitis of right wrist; Translations: [Other enthesopathies, not elsewhere classified] 08-17-2023 Episodic Other connective tissue disease (2 sources) [...] Dysphagia; Translations: [Dysphagia, unspecified] 04-05-2024 Episodic Other inflammatory condition of skin (2 sources) Livedoid vasculitis; 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] Onset: Episodic Other injuries and conditions due to external causes (2 sources) Injury of right foot; Translations: [Unspecified injury of right foot, initial encounter] Episodic Other injuries and conditions due to external causes (12 sources) Closed injury of head; Translations: [Unspecified injury of head, initial encounter] 05-25-2024 Episodic Other injuries and conditions due to external causes (12 sources) Abrasion; Translations: [Other injury of unspecified body region, initial encounter] 06-30-2024 Episodic Other injuries and conditions due to external causes (12 sources) Injury of face; Translations: [Unspecified injury of face, initial encounter] 06-30-2024 Episodic Other injuries and conditions due to external causes (1 source) History of fall; Translations: [History of falling] 04-11-2025 Episodic Other lower respiratory disease (20 sources) [...] mobility] 06-27-2024 Episodic Other non-traumatic joint disorders (2 sources) Pain of right wrist; Translations: [Pain in right wrist] 07-15-2023 Episodic Other non-traumatic joint disorders (1 source) Instability of joint of right knee; Translations: [Other instability, right knee] 09-06-2021 Episodic Other non-traumatic joint disorders (16 sources) Bilateral chronic pain of upper limbs; Translations: [Pain in right shoulder] Onset: 5 01-26-2025 Episodic Other nutritional; endocrine; and metabolic disorders (1 source) Excessive thirst; Translations: [Polydipsia] 11-09-2023 Episodic Other nutritional; endocrine; and metabolic disorders (1 source) Weight gain; Translations: [Abnormal weight gain] 04-05-2024 Episodic Other nutritional; endocrine; and metabolic disorders (1 source) Weight increased; Translations: [Abnormal weight gain] 01-26-2025 Episodic Other skin disorders (2 sources) Skin lesion; Translations: [Disorder of the skin and subcutaneous tissue, unspecified] 01-27-2025 Episodic Other skin disorders (2 sources) Ingrowing nail of toe of right foot; Translations: [Ingrowing nail] 04-17-2025 Episodic Other skin disorders (1 source) Ingrowing nail; Translations: [Ingrowing toenail of right foot] Onset: 5 Episodic Other upper respiratory disease (20 sources) Allergic rhinitis; Translations: [Allergic rhinitis, unspecified] Onset: 4 09-05-2004 Chronic Peripheral and visceral atherosclerosis (2 sources) Peripheral vascular disease, unspecified; Translations: [Peripheral vascular disease, unspecified] Onset: 5 Chronic Phlebitis; thrombophlebitis and thromboembolism (20 sources) [...] Memory impairment; Translations: [Other amnesia] 10-21-2024 Episodic Screening and history of mental health and substance abuse codes (1 source) Encounter for screening examination for other mental health and behavioral disorders; Translations: [Encounter for screening examination for other mental health and behavioral disorders] Onset: 5 Episodic Skin and subcutaneous tissue infections (20 sources) Cellulitis; Translations: [Cellulitis, unspecified] Onset: 3 Resolved: 5 10-08-2014 Episodic Spondylosis; intervertebral disc disorders; other back problems (20 sources) Degeneration of lumbar intervertebral disc; Translations: [Degeneration of cervical intervertebral disc] Onset: 4 08-20-2014 Chronic Superficial injury; contusion (20 sources) Contusion of hand; Translations: [Contusion of unspecified hand, initial encounter] 06-30-2024 Episodic Syncope (20 sources) Near syncope; Translations: [Syncope and collapse] 08-02-2019 Episodic Thyroid disorders (1 source) Acquired [...] Acute cough; Translations: [Acute cough] Onset: 4 Varicose veins of lower extremity (20 sources) Ankle ulcer; Translations: [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] Onset: 3 Resolved: 3 02-09-2021 Episodic Viral infection (20 sources) Disease caused by 2019-nCoV; Translations: [COVID-19] 09-08-2022 Episodic Past or Other Problems Problem Classification Problem Date Documented Da te Episodic/Chronic Abdominal pain (20 sources) Abdominal pain; Translations: [Unspecified abdominal pain] Onset: 11-23-2006 Resolved: 10-08-2014 10-08-2014 Episodic Conditions associated with dizziness or vertigo (20 sources) Benign paroxysmal positional vertigo; Translations: [Benign paroxysmal vertigo, unspecified ear] Onset: 10-30-2014 10-30-2014 Episodic Gastrointestinal hemorrhage (20 sources) Rectal hemorrhage; Translations: [Hemorrhage of anus and rectum] Onset: 09-06-2010 Resolved: 10-08-2014 10-08-2014 Episodic Genitourinary symptoms and ill-defined conditions (20 sources) Increased frequency of urination; Translations: [Nocturia] Onset: 03-01-2014 Resolved: 10-08-2014 05-14-2017 Episodic Malaise and fatigue (15 sources) Fatigue; Translations: [Other fatigue] Onset: 01-26-2025 04-05-2024 Episodic Other aftercare (7 sources) 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; Translations: [Long-term (current) use of 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] Onset: 12-30-2024 Episodic Other aftercare (1 source) Other terminal gauger supervisor (current) drug therapy; Translations: [Medication management] Onset: 01-26-2025 Episodic Other bone disease and musculoskeletal deformities (6 sources) Osteopenia; Translations: [Other specified disorders of bone density and structure, unspecified site] Onset: 05-14-2017 05-14-2017 Episodic Other circulatory disease (1 source) Hypotension, unspecified; Translations: [Hypotension, unspecified] Onset: 03-21-2025 Episodic Other circulatory disease (1 source) Other specified symptoms and signs involving the circulatory and respiratory systems; Translations: [Diminished pulses in lower extremity] Onset: 03-02-2025 Episodic Other connective tissue disease (16 sources) [...] Onset: 08-07-2005 Resolved: 10-08-2014 10-08-2014 Episodic Other lower respiratory disease (7 sources) Shortness of breath; Translations: [Shortness of breath] Onset: 11-21-2024 Episodic Other lower respiratory disease (1 source) [...] Translations: [Dorsalgia, unspecified] Onset: 09-15-2014 10-01-2014 Episodic Other non-traumatic joint disorders (4 sources) Pain in right knee; Translations: [Other acute pain] Onset: 02-08-2025 Episodic Other non-traumatic joint disorders (1 source) Pain in left knee; Translations: [Pain in both knees, unspecified chronicity] Onset: 02-08-2025 Episodic Other non-traumatic joint disorders (1 source) Pain in right shoulder; Translations: [Chronic pain of both shoulders] Onset: 02-08-2025 Episodic Other non-traumatic joint disorders (1 source) Pain in left shoulder; Translations: [Chronic pain of both shoulders] Onset: 02-08-2025 Episodic Other nutritional; endocrine; and metabolic disorders (1 source) Abnormal weight gain; Translations: [Weight gain] Onset: 01-26-2025 Episodic Other skin disorders (1 source) Disorder of the skin and subcutaneous tissue, unspecified; Translations: [Skin lesion] Onset: 01-26-2025 Episodic Residual codes; unclassified (1 source) Other amnesia; Translations: [Memory change] Onset: 10-26-2024 Episodic Spondylosis; intervertebral disc disorders; other back problems (20 sources) Neck pain; Translations: [Low back pain] Onset: 11-16-2008 Resolved: 10-08-2014 08-10-2014 Episodic Sprains and strains (20 sources) Sprain [...] source) Weakness of both lower extremities 10-26-2024 Results Test Name Value Interpretation Reference Range Facility OV 07-04-2025 CNOV Office Visit ([facility] ) -- CADY BERUMEN Tricia ([id number]) 1945 F Date Time Provider Department 07/04/25 3:45 PM ALEC ARTHUR [facility] During your visit today, we recorded the following information about you: Pulse Blood pressure 54/minute 127/73 Alec Arthur, 07/04/2025 5:17 PM Signed [facility] [place] DEPARTMENT OF VASCULAR SURGERY OUTPATIENT VISIT DATE July 04, 2025 OUTPATIENT VISIT TYPE ESTABLISHED SERVICE DATE: 07/04/2025 SERVICE TIME: 4:14 PM PRIMARY CARE PHYSICIAN: Moon Teixeira MD HISTORY OF PRESENT ILLNESS: Mrs. Berumen is a 79 year old female who presents today for a vascular surgery follow-up visit for atrophie miah. She continues to have burning pain and slight amount of drainage PAST MEDICAL HISTORY Diagnosis Date A-fib (HCC) [...] FLX DX W/COLLJ SPEC WHEN PFRMD 08/23/2019 [facility] Florezbul repeat is not recommended NAIL REMOVAL PROCEDURE (W NOTE) Left 04/21/2025 Total nail chemical matrixectomy, left great toe NEUROPLASTY AND/TRANSPOS MEDIAN NRV CARPAL TUNNE 1990 Carpal tunnel decomp-bilateral PAST SURGICAL HISTORY OF 08/21/2005 EXCISION CYST LEFT MIDDLE FINGER PAST SURGICAL HISTORY OF right foot surgery- mortons neuroma PAST SURGICAL HISTORY OF 2013 left foot vein ablation TONSILLECTOMY PRIMARY/SECONDARY AGE 12/> 1962 SOCIAL HISTORY SOCIAL HISTORY[1] MEDICATIONS: diosmin complex no.1 (VASCULERA) 630 mg tab Take 1 tablet by mouth once daily. baclofen 10 mg tablet Take 1 tablet [...] by mouth daily except 7.5mg on ( [facility]) Cholecalciferol, Vitamin D3, 50 mcg (2,000 unit) cap Take 2 capsules by mouth once daily. COQ10, UBIQUINOL, ORAL Take 30 mg by mouth. latanoprost (XALATAN) 0.005 % ophthalmic solution Use 1 Drop in both eyes daily at bedtime. mupirocin (BACTROBAN) 2 % ointment Apply to affected area once daily. (Patient not taking: Reported on 07/04/2025) escitalopram oxalate (LEXAPRO) 5 mg tablet Take 1 tablet by mouth once daily. (Patient not taking: Reported on 07/04/2025) furosemide (LASIX) 20 mg tablet Take 20 mg by mouth once daily. (Patient not taking: Reported on 07/04/2025) ALLERGIES: ALLERGIES Allergen Reactions Fragrances Cough, Shortness [...] Other: See Comments nausea PHYSICAL EXAM: BP 127/73 (BP Site: Left Arm, BP Position: Sitting, BP Cuff Size: Regular Adult) Pulse (!) 54 SpO2 97% Gen- no distress Ext- left leg 0.5 cm x 0.5 cm; trace edema, atrophie miah Diagnostic tests reviewed for today's visit: Most recent labs Most recent imaging IMPRESSION: Mrs. Berumen is a 79 year old female with venous ulceration, atrophie miah PLAN and RECOMMENDATIONS: Follow up in 2 weeks Continue compression and local wound care- continue antibiotic ointment Oxycodone as needed for pain Trial of trental to assist with healing SIGNATURE: Alec Arthur DO PATIENT NAME: Cady Berumen DATE: July 04, 2025 TIME: 4:14 PM [1] Social History Tobacco Use Smoking status: Never Smokeless tobacco: Never Vaping Use Vaping status: Never Used Substance Use Topics Alcohol use: Not Currently Drug use: No Allergies As of Date: 07/04/2025 Noted Allergy Reaction FRAGRANCES 11/28/2014 3 - Cough 12 - Shortness of Breath BENZODIAZEPINES 09/08/2014 1 - Mental Status Change Comments: Pt (more content not included)... Normal [facility] D/C Summary- SPon 06-26-2025 D/C Summary- SP [facility] spital Speech Pathology [facility] [address] [place] [address] / REHABILITATION SERVICES DISCHARGE SUMMARY MR#: [id number] Acct: [id number] Name: CADY BERUMEN Rep #: [id number] : 1945 79 From: Gigi Muse M.A., [facility] Referring Dr.: Dr. Braeden John MD Status: R EG RCR Insurance: [employer] SELF PAY INSURANCE Discharge Summary Discharged: Discharge: Cady Berumen is discharged from [facility] speech therapy at her request as of 06/26/25. She was initially evaluated on 04/26/25 with a diagnosis of dysphagia. A fi beroptic endoscopic evaluation of the swallow was completed on 05/15/25. She attended two sessions (one on 05/22/25 and 06/26/25). During the first session she was educated on results of FEES and recommendations. She was given exercises for home completion as well as strategies for safer oral intake. She cancelled a session in between due to medical issues. During the June session she requested to be discharged and requested repeat FEES to be cancelled due to other medical concerns. She was provided with information on how to return to therapy and repeat FEES when she is ready. Thank you for allowing me to participate in the care of this patient. 06/26/25 0641 CC: Dr. Moon Teixeira MD; Dr. Braeden John MD JLM Signed Normal [facility] Protime w/INR Fingerstickon 06-26-2025 INR Coag (PPP) [Relative time] 2.5 {INR} Normal [facility] Comment on above: Result Comment: Crit ical Value > 4.0 Performed By: #### L 9200.0000 ####[facility] [address] [place], [address] Protime Coagsen 26.3 SEC High 11.7-14.9 [facility] Comment on above: Performed By: #### L [id number] ####[facility] [address] [place], [place], [address] Protime w/INR Fingerstickon 06-09-2025 INR Coag (PPP) [Relative time] 3.2 {INR} Normal [facility] Comment on above: Result Comment: Crit ical Value > 4.0 Performed By: #### L [id number] #### [facility] [address] [place], [place], [address] Protime Coagsen 32.9 SEC High 11.7-14.9 [facility] Comment on above: Performed By: #### L [id number] #### [facility] [address] [place], [place], [address] US VENOUS INCOMPETENCY UNL V LABon 06-09-2025 US VENOUS INCOMPETENCY UNL VAS LAB Non-Invasive Vascular Laboratory [facility] Venous Valvular Incompetency Unilateral - Left Date of service/time: 06/09/2025 3:24:12 PM Name: MRS. CADY BERUMEN Date of : 1945 Age: 79 years Gender: F Clinical Indication Lower extremity ulcer. TECHNIQUE -------- A venous duplex ultrasound examination was performed, including grayscale imaging with compression maneuvers and color Doppler and spectral Doppler examination with augmentation maneuvers and response to respiration of the below mentioned veins. FINDINGS -------- Patient position reverse Trendelenburg 45 degrees. RIGHT SIDE Common femoral vein Doppler: normal flow. Compression: normal. LEFT SIDE Method of augmentation: manual. Common femoral vein Doppler: normal flow. Compression: normal. Profunda vein Compression: normal. Femoral vein Doppler: normal flow. Compression: normal. Popliteal vein Doppler: normal flow. Compression: normal. Small saphenous vein Compression: normal. LEFT SMALL SAPHENOUS VEIN Saphenopopliteal junction Augmentation reflux greater than or equal to 0.5 second. Size 0.27 cm. Proximal calf Augmentation reflux greater than or equal to 0.5 second. Size 0.21 cm. Mid calf Augmentation reflux none. Size 0.20 cm. Distal calf Augmentation reflux greater than or equal to 0.5 second. Size 0.31 cm. LEFT ANTERIOR ACCESSORY GREAT SAPHENOUS VEIN Saphenous junction Augmentation reflux greater than or equal to 0.5 second. Size 0.82 cm. Proximal thigh Augmentation reflux greater than or equal to 0.5 second. Size 0.56 cm. LEFT BRANCHES AND PERFORATORS Varicosity anterior thigh off AAGS Augmentation reflux greater than or equal to 0.5 second. Size 0.45 cm. Varicosity anterior thigh off AAGS Augmentation reflux greater than or equal to 0.5 second. Size 0.38 cm. Signals Officer vein distal lateral calf Augmentation reflux greater than or equal to 0.5 second. Size 0.54 cm. Leads to varicosities lateral ankle to wound. Varicosity lateral ankle Augmentation reflux greater than or equal to 0.5 second. Size 0.26 cm. Branch vein from pelvis Augmentation reflux greater than or equal to 0.5 second. Size 0.38 cm. Travels medial thigh and knee to varicosities anterior mercer. IMPRESSION RIGHT SIDE - DEEP VEINS Positive for valvular incompetency in the common femoral vein. LEFT SIDE - DEEP VEINS Negative for acute deep vein thrombosis in vessels visualized. Positive for valvular incompetency in the common femoral vein. LEFT SIDE - SUPERFICIAL VEINS Previous ablation of the great saphenous vein. Positive for valvular incompetency in the anterior accessory great saphenous vein. Positive for valvular incompetency in the small saphenous vein. Negative for superficial thrombophlebitis in the small saphenous vein. Large compounding pharmacy technician distal lateral calf leading to varicosities at lateral ankle to wound. Interstitium veins noted throughout thigh. Technologist: Maira Orellana Rad Ordering physician: ALEC ARTHUR Interpreting physician: RHONDA Pruitt MD Final CC [employer] Image : [id number] See Link below for Image Normal [facility] Wound Ctr History AND Physic silva 06-07-2025 Wound Ctr History & Physical [facility] [address] [place] [address] H P Exam - Wound Care 06/07/25 1252 MR#: [id number] Acct: [id number] Name: CADY BERUMEN Rep #: [id number] : 1945 79 From: Rukhsana Haji NP DIET A[facility]-C PCP: Dr. Moon Teixeira MD Status:REG RCR Location: History of Present Illness Date of Service: 06/07/25 Chief Complaint: Atrophy aura left lateral lower ankle History of Wound: This is a 79-year-old female with a long-standing history of chronic venous disease. She has been under the care of Dr. Alec Arthur at the [facility] in [place], [place]. She has undergone multiple venous procedures in the past. In 2012, she underwent endovenous laser ablation of the left great saphenous vein. This was followed by sessions of injection sclerotherapy in the distal left lower extremity. For reasons which are uncertain, she then underwent a left great saphenous vein stripping, according to the patient. Endovenous laser ablation of the right great saphenous vein was performed in August 2014. The patient noted onset of an ulceration near the left medial malleolus in December 2015. According to the patient, this was caused by trauma from a gardening shoe. She has been under the care of Dr. Arthur for this ulceration. Additional sessions of injection sclerotherapy have been performed, as recently as several weeks prior to presentation to the Wound Healing Center. The patient was using Bacitracin topically. As a result of recent sclerotherapy, the patient had noted onset of a painful area overlying the left Achilles tendon, as well as swelling and pain in her left great toe. These symptoms appear to be manifestations or complications of injection sclerotherapy, and possibly superficial thrombophlebitis. In addition, a wound debridement was performed by Dr. Arthur shortly prior to the patient's presentation at the Wound Healing Center. Most recently she went and saw Dr. 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 Which includes compression we will use some topical Xeroform dressing on her lower extremity area where there is really no open areas just very like raw skin. Patient is going to follow-up with Dr. Arthur for further evaluation again of making sure that her circulation is good with a vascular study and a venous study. Atrophie miah lesions are characteristic white, star-shaped scars that form on the skin, most often on the lower legs, after painful ulcers heal. They are the result of a condition called livedoid vasculopathy, which involves the occlusion of superficial blood vessels, leading to tissue damage, ulceration, and eventually the formation of these porcelain-white scars. 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 Paroxysmal atrial fibrillation Change in bowel habit Asthma Near syncope Atrial tachycardia (10/14/18) Varicose vein of leg Vestibular neuritis Osteopenia Osteoarthritis Chronic venous insufficiency Glaucoma Essential (primary) hypertension Home Medications ???Medication ???Instructions ???Recorded ???Last Taken ???Type latanoprost 0.005 % eye drops 1 drp EACH EYE [facility] eye health 02/2103/14/25 History coenzyme Q10 50 mg chewable tablet 30 mg PO DAILY 06/07/19 03/14/25 History metoprolol tartrate 25 mg tablet 12.5 mg (1/2 x 25 mg) PO BID PRN 0 09/09/24 11/28/24 Rx afib #180 tabs timolol maleate 0.5 % eye drops 1 drp ophthalmic (eye) BID 5 03/15/25 History warfarin 5 mg tablet 7.5 mg PO SUTUTHSA 11/28/24 History warfarin 5 mg tablet 5 mg PO .COMPLEX #120 tabs 5 03/14/25 Rx ascorbic acid (vitamin C) 500 mg 1 g PO DAILY 03/15/25 Unknown Hist ory tablet (C-500) cholecalciferol (vitamin D3) 25 2,000 unit PO DAILY vitamin Unknown History mcg (1,000 unit) tablet oxycodone-acetaminophen 5 mg-325 1 tab PO TID PRN PRN pain 06/07/25 Unknown History mg tablet Allergy/AdvReac Type Severity Reaction Status Date / Time cat dander Allergy Mild congestion Verified 05/18/25 12:31 grass pollen Allergy Mild Cough, Verified 05/18/25 12:31 rhinitis house dust Allergy Mild Cough, Verified 05/18/25 12:31 rhinitis mold Allergy Mild Cough, Verified 05/18/25 12:31 rhinitis tree and shrub pollen Allergy Mild Cough, Verified 05/18/25 12:31 rhinitis Sulfa (Sulfonamide Allergy Itching Verified 05/18/25 12:31 Antibiotics) losartan AdvReac Severe dizziness, Verified 05/18/25 12:31 severe amlodipine AdvReac Intermediate dizziness Verified 05/18/25 12:31 lisinopril AdvReac Intermediate Nagging (more content not included)... [facility] 06-06-2025 [facility] Office Visit (VASSWS ) -- CADY BERUMEN Tricia ([id number]) 1945 F Date Time Provider Department 06/06/25 9:00 AM ALEC ARTHUR During your visit today, we recorded the following information about you: Pulse Blood pressure 52/minute 132/79 Alec Arthur DO 06/06/2025 1:38 PM Signed [facility] [place] DEPARTMENT OF VASCULAR SURGERY OUTPATIENT VISIT DATE June 06, 2025 OUTPATIENT VISIT TYPE ESTABLISHED SERVICE DATE: 06/06/2025 SERVICE TIME: 9:31 AM PRIMARY CARE PHYSICIAN: Moon Teixeira MD HISTORY OF PRESENT ILLNESS: Mrs. Berumen is a 79 year old female who presents today for a vascular surgery follow-up visit for venous insufficiency and she has noticed a dry patch on left ankle. She is using adaptec to the area. She was evaluated with dermatology who diagnosed with atrophie miah. PAST MEDICAL HISTORY Diagnosis Date A-fib ([facility]) February 2021 Asthma ([facility]) Atrial tachycardia ([facility]) 10/14/2018 BPPV (benign paroxysmal positional vertigo) 10/30/2014 [...] FLX DX W/COLLJ SPEC WHEN PFRMD 08/23/2019 WC-Ana Estrella repeat is not recommended NAIL REMOVAL PROCEDURE (W NOTE) Left 04/21/2025 Total nail chemical matrixectomy, left great toe NEUROPLASTY AND/TRANSPOS MEDIAN NRV CARPAL TUNNE 1990 Carpal tunnel decomp-bilateral PAST SURGICAL HISTORY OF 08/21/2005 EXCISION CYST LEFT MIDDLE FINGER PAST SURGICAL HISTORY OF right foot surgery- mortons neuroma PAST SURGICAL HISTORY OF 2013 left foot vein ablation TONSILLECTOMY PRIMARY/SECONDARY AGE 12/> 1962 SOCIAL HISTORY SOCIAL HISTORY[1] MEDICATIONS: baclofen 10 mg tablet Take 1 [...] by mouth daily except 7.5mg on ( [facility]) Cholecalciferol, Vitamin D3, 50 mcg (2,000 unit) cap Take 2 capsules by mouth once daily. COQ10, UBIQUINOL, ORAL Take 30 mg by mouth. latanoprost (XALATAN) 0.005 % ophthalmic solution Use 1 Drop in both eyes daily at bedtime. mupirocin (BACTROBAN) 2 % ointment Apply to affected area once daily. (Patient not taking: Reported on 04/28/2025) escitalopram oxalate (LEXAPRO) 5 mg tablet Take 1 tablet by mouth once daily. (Patient not taking: Reported on 05/12/2025) furosemide (LASIX) 20 mg tablet Take 20 mg by mouth once daily. (Patient not taking: Reported on 04/28/2025) ALLERGIES: ALLERGIES Allergen Reactions Fragrances Cough, Shortness [...] Other: See Comments nausea PHYSICAL EXAM: BP 132/79 (BP Site: Left Arm, BP Position: Sitting, BP Cuff Size: Regular Adult) Pulse (!) 52 SpO2 97% Gen- no distress Ext- spider veins, varicose veins, trace edema, atrophie miah Diagnostic tests reviewed for today's visit: Most recent labs Most recent imaging IMPRESSION: Mrs. Berumen is a 79 year old female with venous insufficiency CEAP CLASSIFICATION OF VENOUS DISEASE: CLINICAL C6: Active Venou Ulcer S: Symptomatic, including ache, pain, tightness, skin irritation, heaviness, muscle cramps and other complaints attribultable to venous dysfunction ETIOLOGY Ep: Primary ANATOMIC As: Superficial veins Ad: Deep veins PATHOPYSIOLOGIC Pr: Reflux PLAN and RECOMMENDATIONS: Will get venous reflux testing and follow up Patient scheduled with [facility] wound center this week Prescription for percocet provided for acute pain related to venous ulcer SIGNATURE: Alec Arthur DO PATIENT NAME: Cady Berumen DATE: June 06, 2025 TIME: 9:31 AM [1] Social History Tobacco Use Smoking status: (more content not included)... Normal [facility] -- CADY BERUMEN ([id number]) 1945 F Date Time Provider Department 05/31/25 DAQUAN BUCHANAN During your visit today, we recorded the following information about you: Alta Nagy LPN 05/31/2025 12:19 PM Signed Patient called. Verified name and date of . Requested appointment for tomorrow to be cancelled as toenail is healing well. Was diagnosed by dermatology with Atrophy miah and would like to know if Dr. Buchanan assists in treatment of that? Call dropped. TOYA Bardales Laurie, MA 06/01/2025 9:03 AM Signed Daquan Buchanan [facility] Podiatry Pool1 hour ago (7:57 AM) I would direct her to the wound center for the atrophy miah Left message for pt to return call. VM not identified. VIDA Vasquez Danelle, RN 06/01/2025 9:16 AM Signed Patient called back and message given. Patient to reach out to [employer] for referral to [facility] Wound Center. Patient wants to stay in [place]. Patrica Pastor RN Allergies As of Date: 05/31/2025 Noted Allergy Reaction FRAGRANCES 11/28/2014 3 - [...] Other: See Comments Comments: nausea Date Reviewed: 05/12/2025 Reviewed by: Alta Nagy LPN - Fully Assessed Reason for Visit: Patient Question [0237] Prescriptions as of 06/01/2025 - mupirocin (BACTROBAN) 2 % ointment Apply to affected area once daily. - escitalopram oxalate (LEXAPRO) 5 mg tablet Take 1 tablet by mouth once daily. - baclofen 10 mg tablet [...] by mouth daily except 7.5mg on ( [facility]) - Cholecalciferol, Vitamin D3, 50 mcg [...] white willow. Problem List As Of Date 05/31/2025 Noted Resolved ALLERGIC RHINITIS NOS [J30.9] 06/19/2004 [...] 12/23/2021 Bilateral carotid artery stenosis [I65.23] 03/21/2024 Neck pain [M54.2] 02/09/2025 Chronic pain of both shoulders [M25.511, G89.29*02/09/2025 Encounter Status:Closed by MIN (more content not included)... Normal [facility] SP/SP.FEESon 05-31-2025 SP/SP.FEES [facility] Speech Pathology [facility] [address] [place] [address] Fax REHABILITATION SERVICES PROGRESS NOTE MR#: [id number] Acct: [id number] Name: CADY BERUMEN Rep #: [id number] : 1945 79 From: Gigi Muse M.A., [facility] Referring Dr.: Dr. Braeden John MD Status:REG [facility] Insurance: [facility] SELF PAY INSURANCE FEES Patient Information Date of Evaluation: 05/15/25 Time of Evaluation: 10:10 Diagnosis: Dysphagia Referring Physician: Dr. Teixeira Staff Providing this Care/Treatment:: RADHA Direct Billable Minutes: 120 History: Past Medical History:: shortness of breath, obstructive sleep apnea (PRAMOD), long-term use of 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, paroxysmal atrial fibrillation, asthma, near syncope, atrial tachycardia (10/14/18), varicose veins in her leg, vestibular neuritis, osteopenia, osteoarthritis, chronic venous insufficiency, glaucoma, and essential hypertension, A-FIB, GERD, post nasal drip. TX/DX History:: No and MBSS Subjective: Subjective:: Patient is experiencing difficulty swallowing with foods getting stuck and coughing often during oral intake. She had an MBSS on 06/14/24 with regular foods with thin liquids recommended with the following strategies recommended: Multiple Swallows, Alternate bites/solids and sips/liquids, Sitting upright and Remain sitting upright for 30 minutes after PO intake. Diagnosis was oropharyngeal dysphagia, esophageal dysphagia with FEES recommended at that time to visualize structures. GI was recommended and patient is being followed by Dr. John with her next appointment on June 2025. Current Diet: Drinks/Liquids:: Thin Foods:: Regular Medication Administration:: orally Respiratory Status Observation:: Pulse ox was 91 Vocal Quality: Observations:: WFL Comments:: Patient reported she has difficulty singing. Cognition: Observations:: WFL Position During FEES: Position During FEES:: Upright Location: In Chair Fiberoptic Endoscope: Size: 3.4 mm Nare Used:: Right Anatomy: Nasopharynx Tissue Description: Lieberman red Anatomical Findings: Anatomical Findings:: Observed patient to have white patchy areas at base of tongue. (See image 1) She appeared to have bilateral excrescences to the right and left of vallecula protruding into the vallecula. ( See image 2) Secretions: Description:: Thick and Clear Location:: Oropharynx Phonation: Arytenoid Adduction: Abnormal Comment:: Arytenoid cartilage appeared to have edema also with asymmetrical movement at times along with intermittent quivering. ( see image 3) Penetration-Aspiration Scale Penetration-Aspiration Scale Thin Liquids by Single Cup Food/Drink Provided:: Water Swallow Onset Location:: Pyriform Sinuses PAS Score: PAS Score *1 Visual Analysis of Swallowing Efficiency and Safety (VASES) after the swallow: Oropharynx and Hypopharynx Comments:: Minimal residue in pyriform sinuses after 2 single drinks then independent second swallow cleared residue. Strategies Trialed:: Patient used an independent double swallow. Thin Liquids by Sequential Cup Food/Drink Provided:: Water-3 drinks sequentially Swallow Onset Location:: Vallecula Strategies Trialed:: Patient used an independent double swallow. Additional Comments:: Observed thin liquid coming over epiglottis on right side prior to trigger of swallow but did not enter airway. After 2 single drinks and 3 sequential drinks, Patient reported Feels like I'm burping. Slightly Thick Liquids by Single Cup Food/Drink Provided:: Smoothie that had pieces of blueberry skins and other small pieces. Swallow Onset Location:: Pyriform Sinuses PAS Score: PAS Score *1 Visual Analysis of Swallowing Efficiency and Safety (VASES) after the swallow: Oropharynx Comments:: Noted significant diffuse residue on base of tongue, posterior pharyngeal wall and in vallecula which did not clear with a double swallow. ( see image 4) Strategies Trialed:: Small sip plus effortful swallow had reduced residue. Puree Textures Food/Drink Provided:: Thick pudding 1/2 spoonful. Swallow Onset Location:: Vallecula PAS Score: PAS Score *1 Visual Analysis of Swallowing Efficiency and Safety (VASES) after the swallow: Oropharynx Comments:: Scattered residue that needed several swallows to clear. Strategies Trialed:: Multiple swallows. Minced Moist Textures Food/Drink Provided:: Soup with small pieces of soft vegetables - Mixed consistency Swallow Onset Location:: Vallecula and Pyriform Sinuses PAS Score: PAS Score *1 Visual Analysis of Swallowing Efficiency and Safety (VASES) after the swallow: Oropharynx Comments:: Significant residue on posterior pharyngeal wall and vallecula. She had small pieces of solids on posterior wall and also in narrow space of vallecula. Additional Comments:: Patient demonstrated premature spillag (more content not included)... Normal [facility] SP[facility]SP.FEES [facility] [address] [place], [place] [address] Fax REHABILITATION SERVICES PROGRESS NOTE MR#: [id number] Acct: [id number] Name: CADY BERUMEN Rep #: [id number] : 1945 79 From: Gigi Muse M.A., [facility] Referring Dr.: Dr. Braeden John MD Status:REG [facility] Insurance: [employer] SELF PAY INSURANCE FEES Patient Information Date of Evaluation: 05/15/25 Time of Evaluation: 10:10 Diagnosis: Dysphagia Referring Physician: Dr. Teixeira Staff Providing this Care/Treatment:: RADHA Direct Billable Minutes: 120 History: Past Medical History:: shortness of breath, obstructive sleep apnea (PRAMOD), long-term use of 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, paroxysmal atrial fibrillation, asthma, near syncope, atrial tachycardia (10/14/18), varicose veins in her leg, vestibular neuritis, osteopenia, osteoarthritis, chronic venous insufficiency, glaucoma, and essential hypertension, A-FIB, GERD, post nasal drip. TX/DX History:: No and MBSS Subjective: Subjective:: Patient is experiencing difficulty swallowing with foods getting stuck and coughing often during oral intake. She had an MBSS on 06/14/24 with regular foods with thin liquids recommended with the following strategies recommended: Multiple Swallows, Alternate bites/solids and sips/liquids, Sitting upright and Remain sitting upright for 30 minutes after PO intake. Diagnosis was oropharyngeal dysphagia, esophageal dysphagia with FEES recommended at that time to visualize structures. GI was recommended and patient is being followed by Dr. John with her next appointment on June 2025. Current Diet: Drinks/Liquids:: Thin Foods:: Regular Medication Administration:: orally Respiratory Status Observation:: Pulse ox was 91 Vocal Quality: Observations:: WFL Comments:: Patient reported she has difficulty singing. Cognition: Observations:: WFL Position During FEES: Position During FEES:: Upright Location: In Chair Fiberoptic Endoscope: Size: 3.4 mm Nare Used:: Right Anatomy: Nasopharynx Tissue Description: Lieberman red Anatomical Findings: Anatomical Findings:: Observed patient to have white patchy areas at base of tongue. (See image 1) She appeared to have bilateral excrescences to the right and left of vallecula protruding into the vallecula. ( See image 2) Secretions: Description:: Thick and Clear Location:: Oropharynx Phonation: Arytenoid Adduction: Abnormal Comment:: Arytenoid cartilage appeared to have edema also with asymmetrical movement at times along with intermittent quivering. ( see image 3) Penetration-Aspiration Scale Penetration-Aspiration Scale Thin Liquids by Single Cup Food/Drink Provided:: Water Swallow Onset Location:: Pyriform Sinuses PAS Score: PAS Score *1 Visual Analysis of Swallowing Efficiency and Safety (VASES) after the swallow: Oropharynx and Hypopharynx Comments:: Minimal residue in pyriform sinuses after 2 single drinks then independent second swallow cleared residue. Strategies Trialed:: Patient used an independent double swallow. Thin Liquids by Sequential Cup Food/Drink Provided:: Water-3 drinks sequentially Swallow Onset Location:: Vallecula Strategies Trialed:: Patient used an independent double swallow. Additional Comments:: Observed thin liquid coming over epiglottis on right side prior to trigger of swallow but did not enter airway. After 2 single drinks and 3 sequential drinks, Patient reported Feels like I'm burping. Slightly Thick Liquids by Single Cup Food/Drink Provided:: Smoothie that had pieces of blueberry skins and other small pieces. Swallow Onset Location:: Pyriform Sinuses PAS Score: PAS Score *1 Visual Analysis of Swallowing Efficiency and Safety (VASES) after the swallow: Oropharynx Comments:: Noted significant diffuse residue on base of tongue, posterior pharyngeal wall and in vallecula which did not clear with a double swallow. ( see image 4) Strategies Trialed:: Small sip plus effortful swallow had reduced residue. Puree Textures Food/Drink Provided:: Thick pudding 1/2 spoonful. Swallow Onset Location:: Vallecula PAS Score: PAS Score *1 Visual Analysis of Swallowing Efficiency and Safety (VASES) after the swallow: Oropharynx Comments:: Scattered residue that needed several swallows to clear. Strategies Trialed:: Multiple swallows. Minced Moist Textures Food/Drink Provided:: Soup with small pieces of soft vegetables - Mixed consistency Swallow Onset Location:: Vallecula and Pyriform Sinuses PAS Score: PAS Score *1 Visual Analysis of Swallowing Efficiency and Safety (VASES) after the swallow: Oropharynx Comments:: Significant residue on posterior pharyngeal wall and vallecula. She had small pieces of solids on posterior wall and also in narrow space of vallecula. Additional Comments:: Patient demonstrated premature spillag (more content not included)... Normal [facility] -- CADY BERUMEN ([id number]) 1945 F Date Time Provider Department 05/25/25 ALEC ARTHUR VASSMPhil During your visit today, we recorded the following information about you: Shirin Juarez, LEANDER 05/25/2025 4:06 PM Signed Pt called. Pt states she has rough , bad skin on her feet. 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 She stated the skin has come apart and has an open would on her left heal that it hurting. She is inquiring if this is something Dr. Arthur will treat her for. Urvashi Mauricio, LEANDER 05/26/2025 11:25 AM Signed Spoke with patient, scheduled appt 05/31 with Shirin Bangura, LEANDER 06/05/2025 8:58 AM Addendum Pt called. She was unable to make it to her appt 05/31/2025 d/t trasportation issues. She states she has been diagnosed with atrophy miah by Dr. Buchanan with podiatry. She called the wound center and they told her she will need a referral. Dr. Buchanan's office pt to reach out to dermatology for a wound center referral. Pt is having pain in her would and is wondering if Dr. Arthur would be able to see her in [place] on Thursday06/06/2025 to look at her wound and place a referral. Tayler Seth 06/05/2025 9:08 AM Signed Called pt and scheduled for tomorrow. Shirin Juarez, RN 06/21/2025 11:30 AM Signed Pt called. She is inquiring if Dr. Arthur can place a referral to a specialist/doctor who treats atrophie miah? CAMRON: with Dr. Arthur - Jermaine ISTORY OF PRESENT ILLNESS: Mrs. Berumen is a 79 year old female who presents today for a vascular surgery follow-up visit for venous reflux testing . Urvashi Mauricio RN 06/21/2025 12:20 PM Signed Spoke with regarding patient question she recommends patient see Vascular medicine or Dermatology for a second opinion. She advised not to use lidocaine patch on the wound area. [facility] Allergies As of Date: 05/25/2025 Noted Allergy Reaction FRAGRANCES 11/28/2014 3 - [...] Other: See Comments Comments: nausea Date Reviewed: 05/12/2025 Reviewed by: Alta Nagy LPN - Fully Assessed Reason for Visit: Patient Question [4557] Prescriptions as of 06/21/2025 - diosmin complex no.1 (VASCULERA) 630 mg tab Take 1 tablet by mouth once daily. - mupirocin (BACTROBAN) 2 % ointment Apply to affected area once daily. - escitalopram oxalate (LEXAPRO) 5 mg tablet Take 1 tablet by mouth once daily. - baclofen 10 mg tablet [...] by mouth daily except 7.5mg on ( [facility]) - Cholecalciferol, Vitamin D3, 50 mcg [...] white willow. Problem List As Of Date 05/25/2025 Noted Resolved ALLERGIC RHINITIS NOS [J30.9] 06/19/2004 [...] of urination [R35.0] 03/01/2014 10/08/2014 Urgency of uri (more content not included)... [facility] (CARDMN) -- CADY BERUMEN ([id number]) 1945 F Date Time Provider Department 05/19/25 MYNOR SHIRLEY During your visit today, we recorded the following information about you: Dennis Breen 05/19/2025 11:45 AM Signed Patient called to report that her blood pressure has been 85/70, 82/63. She did go to the ER and her Primary doctor was called and she was told to keep her meds the same. She is having an ablation on 08/11 which is why she is concerned. Please Advise . Lindy Acevedo, LEANDER 05/22/2025 2:19 PM Signed Returned phone call from Cady Berumen. Reviewed the below with her. She states her BP has improved. She will continue to follow with her local providers. Lindy Acevedo RN Allergies As of Date: 05/19/2025 Noted Allergy Reaction FRAGRANCES 11/28/2014 3 - [...] Other: See Comments Comments: nausea Date Reviewed: 05/12/2025 Reviewed by: Alta Nagy LPN - Fully Assessed Reason for Visit: Blood Pressure [15] Prescriptions as of 05/22/2025 - mupirocin (BACTROBAN) 2 % ointment Apply to affected area once daily. - escitalopram oxalate (LEXAPRO) 5 mg tablet Take 1 tablet by mouth once daily. - baclofen 10 mg tablet [...] by mouth daily except 7.5mg on ( [facility]) - Cholecalciferol, Vitamin D3, 50 mcg [...] [place]. Problem List As Of Date 05/19/2025 Noted Resolved ALLERGIC RHINITIS NOS [J30.9] 06/19/2004 [...] 12/23/2021 Bilateral carotid artery stenosis [I65.23] 03/21/2024 Neck pain [M54.2] 02/09/2025 Chronic pain of both shoulders [M25.511, G89.29*02/09/2025 Encounter Status:Closed by LINDY ACEVEDO on 05/22/25 Normal [facility] 12 Lead EKGon 05-18-2025 12 Lead EKG [facility] Cardiovascular Services [address] [place] [address] 12 Lead EKG 05/18/25 1237 MR#: [id number] Acct: [id number] Name: CADY BERUMEN Rep #: [id number] : 1945 79 From: Dominguez Garsia MD Attending Dr: Status: DEP ER Ordering Dr: Ousmane Matias DO Date: 05/18/25 Location: ED Sex: F C Admitted: Test Reason : Blood Pressure : */* mmHG Vent. Rate : 83 BPM Atrial Rate : * BPM P-R Int : * ms QRS Dur : 74 ms QT Int : 358 ms P-R-T Axes : * 0 40 degrees QTcB Int : 420 ms Atrial fibrillation Abnormal ECG Confirmed by DOMINGUEZ GARSIA MD ([id number]), writer editor RAMONITA BOOGIE ([id number]) on 05/19/2025 10:59:41 AM Referred By: Confirmed By: DOMINGUEZ GARSIA MD 05/19/251058 Date Dominguez Garsia MD CC: Dr. Moon Teixeira MD; Dr. Ousmane Matias DO Signed [facility] 12 Lead EKG [facility] Cardi[facility] Services [address] [place] [address] 12 Lead EKG 05/18/25 1518 MR#: [id number] Acct: [id number] Name: CADY BERUMEN Tricia Rep #: [id number] : 1945 79 From: Dominguez Garsia MD Attending Dr: Status: DEP ER Ordering Dr: Ousmane Matias DO Date: 05/18/25 Location: ED Sex: F C Admitted: Test Reason : Blood Pressure : */* mmHG Vent. Rate : 57 BPM Atrial Rate : 57 BPM P-R Int : 186 ms QRS Dur : 76 ms QT Int : 404 ms P-R-T Axes : 61 -7 55 degrees QTcB Int : 393 ms Sinus bradycardia Otherwise normal ECG Confirmed by DOMINGUEZ GARSIA MD ([id number]), writer editor RAMONITA BOOGIE ([id number]) on 05/19/2025 10:59:49 AM Referred By: Confirmed By: DOMINGUEZ GARSIA MD 05/19/251058 Date Dominguez Garsia MD CC: Dr. Moon Teixeira MD; Dr. Ousmane Matias DO Signed [facility] Absolute lymphocyte countOrd ered By: Ousmane Matias on 09-25-2025 Lymphocytes Auto (Unsp spec) [#/Vol] 1.00 10*3/uL 0.83-4.51 [facility] Absolute neutrophil countOrd ered By: Ousmane Matias on 05-18-2025 Neutrophils (Bld) [#/Vol] 3.2 10*3/uL 2.0-7.7 [facility] Activated partial thrombopla stin time (aPTT) in platelet poor plasma by coagulation aOrdered By: Ousmane Matias on 05-18-2025 aPTT Coag (PPP) [Time] 34.4 s 24.1-36.2 [facility] Anion gap in Serum or Plasma Ordered By: Ousmane Matias on 05-18-2025 Anion gap [Moles/Vol] 13 mmol/L 5-15 [facility] Automated lymphocyte count a s percentage of total leukocytesOrdered By: Ousmane Matias on 05-18-2025 Lymphocytes/100 WBC Auto (Unsp spec) 20.2 % 19-41 [facility] BUN/creatinine ratioOrdered By: Ousmane Matias on 05-18-2025 Urea nitrogen/Creatinine [Mass ratio] 21.8 mg/mg High 10-20 [facility] Basic Metabolic Profile (BMP )on 05-18-2025 BUN/CRE 21.8 RATIO High 10- [facility] Comment on above: Performed By: #### L 100.0100, L500.2500, L300.3900, L300.4310, L501.4021, L501.5200 ####[facility] [address] [place], [address] Calcium [Mass/Vol] 9.1 mg/dL Normal 7.6-11.0 [facility] Comment on above: Performed By: #### L 100.0100, L500.2500, L300.3900, L300.4310, L501.4021, L501.5200 ####[facility] [address] [place], [address] Chloride [Moles/Vol] 107 mmol/L Normal 98-108 [facility] Comment on above: Performed By: #### L 100.0100, L500.2500, L300.3900, L300.4310, L501.4021, L501.5200 ####[facility] [address] [place], [address] CO2 [Moles/Vol] 21.0 mmol/L Normal 21.0-32.0 [facility] Comment on above: Performed By: #### L 100.0100, L500.2500, L300.3900, L300.4310, L501.4021, L501.5200 ####[facility] [address] [place], [address] Creatinine [Mass/Vol] 0.79 mg/dL Normal 0.70-1.20 [facility] Comment on above: Performed By: #### L 100.0100, L500.2500, L300.3900, L300.4310, L501.4021, L501.5200 ####[facility] [address] [place], [address] ECRCL 58.94 ml/min Normal 50-250 [facility] Comment on above: Performed By: #### L 100.0100, L500.2500, L300.3900, L300.4310, L501.4021, L501.5200 ####[facility] [address] [place], [address] GAP 13 Normal 5-15 [facility] Comment on above: Performed By: #### L 100.0100, L500.2500, L300.3900, L300.4310, L501.4021, L501.5200 ####[facility] [address] [place], [address] GFR/1.73 sq M.predicted among non-blacks MDRD (S/P/Bld) [Vol rate/Area] 76 mL/min/{1.73_m2} Normal >60 [facility] Comment on above: Result Comment: mL/m in/1.73m2 CKD-EPI Creatinine Equation (2020) Performed By: #### L 100.0100, L500.2500, L300.3900, L300.4310, L501.4021, L501.5200 ####[facility] [address] [place], [address] Glucose [Mass/Vol] 95 mg/dL Normal 70-99 [facility] Comment on above: Performed By: #### L 100.0100, L500.2500, L300.3900, L300.4310, L501.4021, L501.5200 ####[facility] [address] [place], [address] Potassium [Moles/Vol] 4.3 mmol/L Normal 3.3-5.1 [facility] Comment on above: Performed By: #### L 100.0100, L500.2500, L300.3900, L300.4310, L501.4021, L501.5200 ####[facility] [address] [place], [address] Sodium [Moles/Vol] 141 mmol/L Normal 133-145 [facility] Comment on above: Performed By: #### L 100.0100, L500.2500, L300.3900, L300.4310, L501.4021, L501.5200 ####[facility] [address] [place], [address] Urea nitrogen [Mass/Vol] 17 mg/dL Normal 4-19 [facility] Comment on above: Performed By: #### L 100.0100, L500.2500, L300.3900, L300.4310, L501.4021, L501.5200 ####[facility] [address] [place], [address] Basophil percentageOrdered B y: Ousmane Matias on 05-18-2025 Basophils/100 WBC (Bld) 1.0 % 0-1 [facility] CBC W/Diff, Automatedon 09-2 5-2024 Absolute Lymph 1.00 X10 3/uL Normal 0.83-4.51 [facility] Comment on above: Performed By: #### L 100.0100, L500.2500, L300.3900, L300.4310, L501.4021, L501.5200 ####[facility] [address] [place] [id number] Absolute Neut 3.2 X10 3/uL Normal 2.0-7.7 [facility] Comment on above: Performed By: #### L 100.0100, L500.2500, L300.3900, L300.4310, L501.4021, L501.5200 ####[facility] [address] [place] [address] Basophils/100 WBC (Bld) 1.0 % Normal 0-1 [facility] Comment on above: Performed By: #### L 100.0100, L500.2500, L300.3900, L300.4310, L501.4021, L501.5200 ####[facility] [address] [place] [phone] Eosinophils/100 WBC (Bld) 2.2 % Normal 0-5 [facility] Comment on above: Performed By: #### L 100.0100, L500.2500, L300.3900, L300.4310, L501.4021, L501.5200 ####[facility] [address] [place] [phone] Erythrocyte distribution width (RBC) [Ratio] 13.3 % Normal 11.6-14.6 [facility] Comment on above: Performed By: #### L 100.0100, L500.2500, L300.3900, L300.4310, L501.4021, L501.5200 ####[facility] [address] [place] [phone] Hematocrit (Bld) [Volume fraction] 38.7 % Normal 37-47 [facility] Comment on above: Performed By: #### L 100.0100, L500.2500, L300.3900, L300.4310, L501.4021, L501.5200 ####[facility] [address] [place], [address] Hemoglobin (Bld) [Mass/Vol] 12.9 g/dL Normal 12.0-15.0 [facility] Comment on above: Performed By: #### L 100.0100, L500.2500, L300.3900, L300.4310, L501.4021, L501.5200 ####[facility] [address] [place], [address] IG% 0.200 Normal 0.0-0.9 [facility] Comment on above: Result Comment: IG% - Immature Granulocytes (promyelocytes, myelocytes and metamyelocytes) > 1% indicates that a LEFT SHIFT is Present. Performed By: #### L 100.0100, L500.2500, L300.3900, L300.4310, L501.4021, L501.5200 ####[facility] [address] [place], [address] Lymphocytes/100 WBC (Bld) 20.2 % Normal 19-41 [facility] Comment on above: Performed By: #### L 100.0100, L500.2500, L300.3900, L300.4310, L501.4021, L501.5200 ####[facility] [address] [place], [address] MCH (RBC) [Entitic mass] 32.1 pg High 27.0-32.0 [facility] Comment on above: Performed By: #### L 100.0100, L500.2500, L300.3900, L300.4310, L501.4021, L501.5200 ####[facility] [address] [place], [address] MCHC (RBC) [Mass/Vol] 33.3 g/dL Normal 32-36 [facility] Comment on above: Performed By: #### L 100.0100, L500.2500, L300.3900, L300.4310, L501.4021, L501.5200 ####[facility] [address] [place], [address] MCV (RBC) [Entitic vol] 96.3 fL Normal 81-99 [facility] Comment on above: Performed By: #### L 100.0100, L500.2500, L300.3900, L300.4310, L501.4021, L501.5200 ####[facility] [address] [place], [address] Monocytes/100 WBC (Bld) 12.6 % High 0-10 [facility] Comment on above: Performed By: #### L 100.0100, L500.2500, L300.3900, L300.4310, L501.4021, L501.5200 ####[facility] [address] [place], [address] Neutrophils/100 WBC (Bld) 63.8 % Normal 47-70 [facility] Comment on above: Performed By: #### L 100.0100, L500.2500, L300.3900, L300.4310, L501.4021, L501.5200 ####[facility] [address] [place], [address] Nucleated RBC (Bld) [#/Vol] 0 10*3/uL Normal 0-5 [facility] Comment on above: Performed By: #### L 100.0100, L500.2500, L300.3900, L300.4310, L501.4021, L501.5200 ####[facility] [address] [place], [address] Platelet mean volume (Bld) [Entitic vol] 12.3 fL High 6.2-12.0 [facility] Comment on above: Performed By: #### L 100.0100, L500.2500, L300.3900, L300.4310, L501.4021, L501.5200 ####[facility] [address] [place], [address] Platelets (Bld) [#/Vol] 175 10*3/uL Normal 150-450 [facility] Comment on above: Performed By: #### L 100.0100, L500.2500, L300.3900, L300.4310, L501.4021, L501.5200 ####[facility] [address] [place], [address] RBC (Bld) [#/Vol] 4.02 10*6/uL Low 4.2-5.4 [facility] Comment on above: Performed By: #### L 100.0100, L500.2500, L300.3900, L300.4310, L501.4021, L501.5200 ####[facility] [address] [place], [address] RDW SD 47.4 fl High 35.1-43.9 [facility] Comment on above: Performed By: #### L 100.0100, L500.2500, L300.3900, L300.4310, L501.4021, L501.5200 ####[facility] [address] [place], [address] WBC (Bld) [#/Vol] 4.9 10*3/uL Normal 4.4-11.0 [facility] Comment on above: Performed By: #### L 100.0100, L500.2500, L300.3900, L300.4310, L501.4021, L501.5200 ####[facility] [address] [facility] [place], [place], [address] Carbon dioxide, total [Moles /volume] in Central venous bloodOrdered By: Ousmane Matias on 05-18-2025 CO2 [Moles/Vol] 21.0 mmol/L 21.0-32.0 [facility] Chest 1 View (Portable)on Chest 1 View (Portable) [facility] Imaging Services [address] [place] [address] Chest 1 View (Portable) MR#: [id number] Acct: [id number] Name: CADY BERUMEN Rep #: [id number] : 1945 F 79 From: Twan Claros MD PCP: Dr. Moon Teixeira MD Status: [facility] ER Study: Chest 1 View (Portable) Date of Exam: 05/18/25 Exam# [id number] Ordering Dr: Ousmane Matias DO PROCEDURE: CHEST 1 VIEW (PORTABLE) 05/18/2025 REASON FOR EXAM: CHEST PAIN TECHNIQUE: Frontal view of the chest. COMPARISON: Chest x-ray 03/15/2025 FINDINGS: Hardware: Left atrial appendage occluder device. Heart: Heart size is mildly enlarged. Lungs: Mild bilateral pulmonary vascular congestion.Chronic scarring along left lung base. Mild bibasilar atelectasis. Bones: Age-related degenerative changes Other: None RAD/Chest 1 View (Portable) IMPRESSION: Mild bilateral pulmonary vascular congestion. Trace right pleural effusion. Reading Location: [facility] CC: Dr. Moon Teixeira MD; Dr. Ousmane Matias DO A And P Technician: Signed Normal [facility] Chloride assayOrdered By: Favio Matias on 05-18-2025 Chloride [Moles/Vol] 107 mmol/L 98-108 [facility] Electrocardiogram reportOrde red By: Dominguez Garsia on 05-18-2025 EKG study [facility] Cardiovascular Services [address] [place] [address] 12 Lead EKG 05/18/25 1237 MR#: [id number] Acct: [id number] Name: JUAN BERUMENDestin Clarke Rep #:[id number] : 1945 79 From: Dominguez Garsia MD Attending Dr: Status: DEP E R Ordering Dr: Ousmane Matias DO Date: 0 05/18/25 Location: ED Sex: F C Admitted: Test Reason : Blood Pressure : */* mmHG Vent. Rate : 83 BPM Atrial Rate : * BPM P-R Int : * ms QRS Dur : 74 ms QT Int : 358 ms P-R-T Axes : * 0 40 degrees QTcB Int : 420 ms Atrial fibrillation Abnormal ECG Confirmed by DOMINGUEZ GARSIA MD ([id number]), writer editor RAMONITA BOOGIE ([id number]) on 05/19/2025 10:59:41 AM Referred By: Confirmed By: DOMINGUEZ GARSIA MD 05/19/25 1059 Date _ Dominguez Garsia MD CC: Dr. Moon Teixeira MD; Dr. Ousmane Matias DO ~ Signed [facility] Work Phone: EKG study [facility] Cardiovascular Services [address] [place] [address] 12 Lead EKG 05/18/25 1518 MR#: [id number] Acct: [id number] Name: JAMAICACADY Clarke Rep #:[id number] : 1945 79 From: Dominguez Garsia MD Attending Dr: Status: DEP E R Ordering Dr: Ousmane Matias DO Date: 0 05/18/25 Location: ED Sex: F C Admitted: Test Reason : Blood Pressure : */* mmHG Vent. Rate : 57 BPM Atrial Rate : 57 BPM P-R Int : 186 ms QRS Dur : 76 ms QT Int : 404 ms P-R-T Axes : 61 -7 55 degrees QTcB Int : 393 ms Sinus bradycardia Otherwise normal ECG Confirmed by DOMINGUEZ GARSIA MD ([id number]), writer editor RAMONITA BOOGIE ([id number]) on 05/19/2025 10:59:49 AM Referred By: Confirmed By: DOMINGUEZ GARSIA MD 05/19/25 105 Date _ Dominguez Garsia MD CC: Dr. Moon Teixeira MD; Dr. Ousmane Matias DO ~ Signed [facility] Work Phone: Emergency Department Summary on 05-18-2025 Emergency Department Summary [facility] Medical Records Department [address] [facility] [place] [address] Emergency Department Summary 05/18/25 MR#: [id number] Acct: [id number] Name: CADY BERUMEN Rep #: [id number] : 1945 79 From: Ousmane Matias DO PCP: Dr. Moon Teixeira MD Status:DEP ER Location: ED HPI History of Present Illness Chief Complaint: Palpitations Informant: patient Onset/Context/Timing Onset: Today Context: Gradual Onset Timing: Continuous Quality: Lightheaded Location: Generalized Worsened by: Nothing Relieved by: Nothing Narrative Narrative: Patient presents with low blood pressure and atrial fibrillation that became worse today. Patient states that her blood pressure was slowly declining at home. Patient states she felt lightheaded. Patient states nothing makes it better and nothing makes it worse. Patient states she has a history of paroxysmal atrial fibrillation. Patient states she does feel some tightness in her throat when she goes into atrial fibrillation. Patient denies any recent fevers or chills. Patient admits to some shortness of breath but denies any cough. Patient denies any chest pain. Patient admits to some pain in her left clavicular area. [facility] Medical History Shortness of breath PRAMOD (obstructive sleep apnea) intermediate (current) use of 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 Paroxysmal atrial fibrillation Change in bowel habit Asthma Near syncope Atrial tachycardia (10/14/18) Varicose vein of leg Vestibular neuritis Osteopenia Osteoarthritis Chronic venous insufficiency Glaucoma Essential (primary) hypertension Home Medications ???Medication ???Instructions ???Recorded ???Last Taken ???Type latanoprost 0.005 % eye drops 1 drp EACH EYE [facility] eye health 02/2103/14/25 History coenzyme Q10 50 mg chewable tablet 30 mg PO DAILY 06/07/19 03/14/25 History metoprolol tartrate 25 mg tablet 12.5 mg (1/2 x 25 mg) PO BID PRN 0 09/09/24 11/28/24 Rx afib #180 tabs timolol maleate 0.5 % eye drops 1 drp ophthalmic (eye) BID 5 03/15/25 History warfarin 5 mg tablet 7.5 mg PO SUTUTHSA 11/28/24 History warfarin 5 mg tablet 5 mg PO .COMPLEX #120 tabs 5 03/14/25 Rx ascorbic acid (vitamin C) 500 mg 1 g PO DAILY 03/15/25 Unknown Hist ory tablet (C-500) cholecalciferol (vitamin D3) 25 2,000 unit PO DAILY vitamin Unknown History mcg (1,000 unit) tablet Allergy/AdvReac Type Severity Reaction Status Date / Time cat dander Allergy Mild congestion Verified 05/18/25 12:31 grass pollen Allergy Mild Cough, Verified 05/18/25 12:31 rhinitis house dust Allergy Mild Cough, Verified 05/18/25 12:31 rhinitis mold Allergy Mild Cough, Verified 05/18/25 12:31 rhinitis tree and shrub pollen Allergy Mild Cough, Verified 05/18/25 12:31 rhinitis Sulfa (Sulfonamide Allergy Itching Verified 05/18/25 12:31 Antibiotics) losartan AdvReac Severe dizziness, Verified 05/18/25 12:31 severe amlodipine AdvReac Intermediate dizziness Verified 05/18/25 12:31 lisinopril AdvReac Intermediate Nagging Verified 05/18/25 12:31 dry cough Benzodiazepines AdvReac Other Verified 05/18/25 12:31 diazepam (From Valium) AdvReac Other Verified 05/18/25 12:31 Family History Father Myocardial infarction from [place] age 61 Heart disease Diabetes Sister Breast cancer Other intermediate (current) use of 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 Surgical History history [...] Reports palpitations; Denies chest pain Respiratory/Chest Respiratory/Chest: Reports dyspnea; Denies cough Gastrointestinal Gastrointestinal: Denies nausea or vomiting Genitourinary Genitourinary ED: Denies dysuria or hematuria Musculoskeletal Musculoskeletal: Reports neck pain; Denies back pain Integumentary Denies abscess or rash Neurologic Neurologic: Denies headache(s) or weakness Allergic/Immunologic Allergic/Immunologic ED: Denies mouth swelling or urticaria EXAM Physical E (more content not included)... Normal [facility] Eosinophil percentageOrdered By: Ousmane Matias on 05-18-2025 Eosinophils/100 WBC (Bld) 2.2 % 0-5 [facility] Erythrocyte distribution wid th ratioOrdered By: Ousmane Matias on 05-18-2025 Erythrocyte distribution width (RBC) [Ratio] 13.3 % 11.6-14.6 [facility] Erythrocyte distribution wid th standard deviationOrdered By: Ousmane Matias on 05-18-2025 Erythrocyte distribution width (RBC) [Ratio] 47.4 fl High 35.1-43.9 [facility] Glomerular filtration rate ( GFR) estimation/1.73 sq m using serum, plasma, or whole bOrdered By: Ousmane Matias on 05-18-2025 GFR/1.73 sq M.predicted among non-blacks MDRD (S/P/Bld) [Vol rate/Area] 76 mL/min/{1.73_m2} >60 [facility] Comment on above: mL/min/1.73m2 CKD-EP I Creatinine Equation (2020) Hematocrit Auto (Bld) [Volum e fraction]Ordered By: Ousmane Matias on 05-18-2025 Hematocrit (Bld) [Volume fraction] 38.7 % 37-47 [facility] Hemoglobin measurementOrdere d By: Ousmane Matias on 05-18-2025 Hemoglobin (Bld) [Mass/Vol] 12.9 g/dL 12.0-15.0 [facility] Immature granulocytes/100 WB C Auto (Bld)Ordered By: Ousmane Matias on 05-18-2025 Immature granulocytes/100 WBC (Bld) 0.200 % 0.0-0.9 [facility] Comment on above: IG% - Immature Granu locytes (promyelocytes, myelocytes and metamyelocytes) > 1% indicates that a LEFT SHIFT is Present. International normalized rat io (INR) calculationOrdered By: Ousmane Matias on 05-18-2025 INR Coag (Bld) [Relative time] 2.9 {INR} [facility] L501.4021on 05-18-2025 Trop T High Sen 9 ng/L Normal <=14 [facility] Comment on above: Performed By: #### L 100.0100, L500.2500, L300.3900, L300.4310, L501.4021, L501.5200 ####[facility] [address] [place], [address] MCV (mean corpuscular volume ) determinationOrdered By: Ousmane Matias on 05-18-2025 MCV (RBC) [Entitic vol] 96.3 fL 81-99 [facility] Magnesiumon 05-18-2025 Magnesium [Mass/Vol] 2.4 mg/dL High 1.5-2.2 [facility] Comment on above: Performed By: #### L 100.0100, L500.2500, L300.3900, L300.4310, L501.4021, L501.5200 ####[facility] [address] [place], [address] Magnesium measurement (mass/ volume)Ordered By: Ousmane Matias on 05-18-2025 Magnesium (Unsp spec) [Mass/Vol] 2.4 mg/dL High 1.5-2.2 [facility] Mean corpuscular hemoglobin (MCH) determinationOrdered By: Ousmane Matias on 05-18-2025 MCH (RBC) [Entitic mass] 32.1 pg High 27.0-32.0 [facility] Mean corpuscular hemoglobin concentration (MCHC) determinationOrdered By: Ousmane Matias on 05-18-2025 MCHC (RBC) [Mass/Vol] 33.3 g/dL 32-36 [facility] Mean platelet volume determi nationOrdered By: Ousmane Matias on 05-18-2025 Platelet mean volume (Bld) [Entitic vol] 12.3 fL High 6.2-12.0 [facility] Monocyte percentageOrdered B y: Ousmane Matias on 05-18-2025 Monocytes/100 WBC (Bld) 12.6 % High 0-10 [facility] Neutrophil percentageOrdered By: Ousmane Matias on 05-18-2025 Neutrophils/100 WBC (Bld) 63.8 % 47-70 [facility] Nucleated red blood cell per centageOrdered By: Ousmane Matias on 05-18-2025 Nucleated RBC/100 WBC (Bld) [Ratio] 0 % 0-5 [facility] Partial Thromboplast Timeon 05-18-2025 aPTT Coag (Bld) [Time] 34.4 s Normal 24.1-36.2 [facility] Comment on above: Performed By: #### L 100.0100, L500.2500, L300.3900, L300.4310, L501.4021, L501.5200 ####[facility] [address] [place], [address] Platelet countOrdered By: Favio Matias on 05-18-2025 Platelets (Bld) [#/Vol] 175 10*3/uL 150-450 [facility] Potassium measurement (mass/ volume)Ordered By: Ousmane Matias on 05-18-2025 Potassium (Unsp spec) [Mass/Vol] 4.3 mmol/L 3.3-5.1 [facility] Prothrombin Time w/INRon INR Coag (PPP) [Relative time] 2.9 {INR} Normal [facility] Comment on above: Performed By: #### L 100.0100, L500.2500, L300.3900, L300.4310, L501.4021, L501.5200 ####[facility] [address] [place], [place], [id number] PT Coag (PPP) [Time] 31.2 s High 11.7-14.9 [facility] Comment on above: Performed By: #### L 100.0100, L500.2500, L300.3900, L300.4310, L501.4021, L501.5200 ####[facility] [address] [place], [place], [id number] Prothrombin timeOrdered By: Ousmane Matias on 05-18-2025 PT Coag (PPP) [Time] 31.2 s High 11.7-14.9 [facility] RBC Auto (Bld) [#/Vol]Ordere d By: Ousmane Matias on 05-18-2025 RBC (Bld) [#/Vol] 4.02 10*6/uL Low 4.2-5.4 [facility] Serum creatinine measurement (mass/volume)Ordered By: Ousmane Matias on 05-18-2025 Creatinine [Mass/Vol] 0.79 mg/dL 0.70-1.20 [facility] Serum glucose measurement (m ass/volume)Ordered By: Ousmane Matias on 05-18-2025 Glucose [Mass/Vol] 95 mg/dL 70-99 [facility] Serum or plasma calcium ayanna urement (mass/volume)Ordered By: Ousmane Matias on 05-18-2025 Calcium [Mass/Vol] 9.1 mg/dL 7.6-11.0 [facility] Serum or plasma urea nitroge n measurement (mass/volume)Ordered By: Ousmane Matias on 05-18-2025 Urea nitrogen [Mass/Vol] 17 mg/dL 4-19 [facility] Sodium levelOrdered By: Ousmane Matias on 05-18-2025 Sodium [Moles/Vol] 141 mmol/L 133-145 [facility] Troponin T HS 2 HRon 025 Trop T High Sen 8 ng/L Normal <=14 [facility] Comment on above: Performed By: #### L [id number] #### [facility] [address] [place], [place], [id number] Troponin T HS 4 HRon 025 Trop T High Sen Normal <=14 [facility] Comment on above: Result Comment: Canc elled via OM: Order cancelled - Patient discharged Performed By: #### L [id number] #### [facility] [address] [place], [place], [id number] Troponin T.cardiac [Mass/vol ume] in Serum or Plasma by High sensitivity methodOrdered By: Ousmane Matias on 05-18-2025 Troponin T.cardiac High sensitivity method [Mass/Vol] 8 ng/L <14 [facility] Troponin T.cardiac High sensitivity method [Mass/Vol] 9 ng/L <14 [facility] White blood cell (WBC) count Ordered By: Ousmane Matias on 05-18-2025 WBC (Bld) [#/Vol] 4.9 10*3/uL 4.4-11.0 [facility] CNOVon 05-12-2025 CNOV Office Visit (PODIWS ) -- CADY BERUMEN ([id number]) 1945 F Date Time Provider Department 05/12/25 1:20 PM DAQUAN BUCHANAN During your visit today, we recorded the following information about you: Daquan Buchanan 05/12/2025 1:42 PM Signed We discussed the healing of your left great toe following nail removal: - The nail bed appears mostly healed with a very superficial wound at the distal and proximal nail bed. There are no signs of infection or drainage, and the wound is progressing well. - Continue applying a very small amount of mupirocin (topical antibiotic) to the affected area daily. This has already been prescribed to you. - You may continue soaking your toe in Epsom salt if it feels soothing. If you choose to soak, you can do so for another week or two. - You may keep a Band-Aid on the toe to protect it from being bumped. - Healing is expected to continue over the next 1-2 weeks. You should be able to wear shoes soon. We discussed your vascular health and risk of ulcers: - Your vascular studies from 2022 show excellent blood flow to your left lower extremity, with normal MAXWELL and toe pressures. This supports good healing potential. - Atrophy miah, which is related to venous insufficiency, does not appear to be affecting the healing of your toe. Wearing compression stockings daily, as recommended by your thread pulling machine attendant, remains important to reduce your risk of leg ulcers. Follow-up: - We scheduled a follow-up appointment in 3 weeks to assess your progress. If you feel the wound has healed completely before then, you may cancel the appointment. - If you notice any signs of infection (redness, warmth, swelling, or drainage) or if you have any concerns, please call our office. Your daughter has my contact information. Daquan Buchanan 05/13/2025 7:12 AM Signed Subjective The patient is a 79-year-old female with a history of venous insufficiency and atrophie miah, presenting for follow-up on a left great toenail removal. The patient reports ongoing tenderness and drainage from the left great toe following toenail removal. She describes the wound as slowly improving but still very tender, with concerns about a black spot and a trench appearance. She has been applying mupirocin and soaking the toe in Epsom salt daily. She is also wearing compression stockings and using a lotion prescribed by her thread pulling machine attendant for atrophie miah, which causes her skin to feel very dry and at risk of splitting. She inquires about when she will be able to wear shoes comfortably again. Musculoskeletal: (+) left great toe pain, (+) leg pain Skin: (+) dry skin of legs, (+) drainage from left great toe PAST MEDICAL HISTORY Diagnosis Date A-fib (HCC) [...] deficiency 09/20/2013 Current Outpatient Medications Medication Sig Dispense Refill baclofen 10 mg tablet Take 1 tablet by mouth three times a day as needed (muscle spasms). 30 tablet 1 metoprolol tartrate, short acting, (LOPRESSOR) 25 mg tablet Take 12.5 mg by mouth as needed. Takes as needed for rapid HR timolol maleate (TIMOPTIC) 0.5 % ophthalmic solution Use 1 Drop in both eyes twice daily. warfarin (COUMADIN) 5 mg tablet Take 1 tablet by mouth daily except 7.5mg on ( [facility]) 30 tablet 11 Cholecalciferol, Vitamin D3, 50 mcg (2,000 unit) cap Take 2 capsules by mouth once daily. 60 capsule 11 COQ10, UBIQUINOL, ORAL Take 30 mg by mouth. latanoprost (XALATAN) 0.005 % ophthalmic solution Use 1 Drop in both eyes daily at bedtime. mupirocin (BACTROBAN) 2 % ointment Apply to affected area once daily. (Patient not taking: Reported on 04/28/2025) 30 g 2 escitalopram oxalate (LEXAPRO) 5 mg tablet Take 1 tablet by mouth once daily. (Patient not taking: Reported on 05/12/2025) 30 tablet 2 furosemide (LASIX) 20 mg tablet Take 20 mg by mouth once daily. (Patient not taking: Reported on 04/28/2025) No current facility-administered medications for this visit. Family History Problem Relation Age of Onset Heart Father Allergies Sister Breast Cancer Sister age of 50's with diagnosis Prostate Cancer Brother Objective There were no vitals taken for this visit. - Cardiovascular: Dorsalis pedis and posterior tibial pulses palpable on the left foot; capillary refill time immediate to the left third toe; skin temperature warm from proximal t (more content not included)... Normal [facility] CNOVon 04-28-2025 CNOV Office Visit (WOUCA) -- CADY BERUMEN ([id number]) 1945 F Date Time Provider Department 04/28/25 6:45 PM URMILA PICKENS WOUMU During your visit today, we recorded the following information about you: Temperature Pulse Respiration Blood pressure 97.3 degrees 60/minute 20/minute 141/75 Weight 75 kg Urmila Pickens PA 04/28/2025 6:53 PM Signed [facility] Subjective Cady Clarke [place] is a 79 year old female. Patient presents with: Wound Check: Had toenail removed x 1 week ago, by [facility], is having throbbing, redness, warmth, swelling in great to on Left foot, x last night HPI The patient is a 79-year-old female presenting for evaluation of a toe infection following toenail removal. Toe Infection: - Toenail removed last Thursday due to chronic ingrown toenail. - Developed itching, redness, warmth, and throbbing pain in the toe last night. - Noted clear drainage from the site. - Denies fevers. - Using Neosporin; hesitant to use mupirocin due to concerns about its ingredients. - Follow-up appointment scheduled for the . Review of Systems Constitutional: (-) fever Musculoskeletal: (+) toe pain (throbbing), (+) toe warmth Skin: (+) toe itching, (+) toe redness, (+) serous drainage, (+) toe bleeding Objective BP 141/75 Pulse 60 Temp 36.3 ?C (97.3 ?F) Resp 20 Wt 75 kg (165 lb 5.5 oz) SpO2 97% BMI 28.38 kg/m? Physical Exam Vitals and nursing note reviewed. Constitutional: General: She is not in acute distress. Appearance: Normal appearance. She is not toxic-appearing. Musculoskeletal: Right foot: Normal range of motion and normal capillary refill. No swelling, tenderness or bony tenderness. Normal pulse. Comments: Right great toenail was removed. She does have erythema and warmth noted around the cuticle/nail bed. No bony tenderness. Normal ROM of the toe. Slight tenderness around the nailbed. She does have some purulent/yellowish appearance of the nailbed. No bleeding or drainage on exam Skin: General: Skin is warm and dry. Neurological: Mental Status: She is alert. { 1. Infection of toenail (L03.039) - Recent toenail removal for chronic ingrown toenail; now with erythema, warmth, throbbing pain, and serous drainage. - Start doxycycline BID for 7 days. - Advised to continue soaking the toe as previously instructed to keep the area moist. - Educated on signs of worsening infection (red streaks, fever) and advised to go to the emergency room if these occur. - Recording using [employer] software for draft documentation of the visit was discussed with the patient/authorized care support representative; all questions welcomed and answered. Patient/authorized care support representative agreed to proceed Diagnosis and treatment plan were discussed and questions were answered to the patient's satisfaction. Pt acknowledged understanding of concepts and follow up plan. Specific signs and symptoms that would indicate the need for higher level of care were discussed in detail warranting prompt ER evaluation. History and Record Review External record(s) reviewed: prior outpatient record. Differential Diagnoses - Skin infection from toenail removal is more likely for the following reason(s): suggested by HANDP - Osteomyelitis is less likely for the following reason(s): HANDP not suggestive Disposition The patient was discharged. Procedures Allergies As of Date: 04/28/2025 Noted Allergy Reaction FRAGRANCES 11/28/2014 3 - [...] Other: See Comments Comments: nausea Date Reviewed: 04/28/2025 Reviewed by: Ivis Montes LPN - Fully Assessed Reason for Visit: Wound Check [133] Cmt: Had toenail removed x 1 week ago, by [facility], is having throbbing, redness, warmth, swelling in great to on Left foot, x last night Primary Visit Diagnosis:Infection of toenail [L03.039] Order(s):doxycycline hyclate (VIBRAMYCIN) 100 mg capsuleTake 1 capsule by mouth two times a day for 7 days.Disp: 14 capsuleRfl: 0 Prescriptions as of 04/28/2025 - doxycycline hyclate (VIBRAMYCIN) 100 mg capsule Take 1 capsule by mouth two times a day for 7 days. - mupirocin (BACTROBAN) 2 (more content not included)... Normal [facility] normalized rat io (INR) measurement by fingerstickOrdered By: Bart Rosales on 04-28-2025 INR Coag (BldC) [Relative time] 1.7 [facility] Comment on above: Critical Value > 4.0 Protime w/INR Fingerstickon 04-28-2025 INR Coag (PPP) [Relative time] 1.7 {INR} Normal [facility] Comment on above: Result Comment: Crit ical Value > 4.0 Performed By: #### L [id number] ####[facility] [id number] [place], [address] Protime Coagsen 19.2 SEC High 11.7-14.9 [facility] Comment on above: Performed By: #### L [id number] ####[facility] [id number] [place], [place], [id number] Whole blood prothrombin time Ordered By: Bart Rosales on 04-28-2025 PT Coag (Bld) [Time] 19.2 s High 11.7-14.9 [facility] 04-27-2025 CNPN Telephone (PODIWS) -- CADY BERUMEN ([id number]) 1945 F Date Time Provider Department 04/27/25 DAQUAN BUCHANAN During your visit today, we recorded the following information about you: Alta Nagy LPN 04/27/2025 11:42 AM Signed Patient called. Verified name and date of . Patient called to lave update that she is still doing the soaks but didn't necessarily need to leave a message unless she was supposed to have stopped doing them as the after visit summary does not indicate how long to do the soaks for. Advised to continue to do the soaks until follow up and area is still in healing process. TOYA Bardales Kimberly, LPN 04/28/2025 4:22 PM Signed Patient called. Verified name and date of . Patient states last night her toe started to throb and is slightly swollen, and toe is bright red and warm to touch, Denies fever but states her foot feels like it has a fever. She is having difficulties walking. Advised that urgent care is available to be evaluated. Alta Nagy LPN Allergies As of Date: 04/27/2025 Noted Allergy Reaction FRAGRANCES 11/28/2014 3 - [...] Other: See Comments Comments: nausea Date Reviewed: 04/21/2025 Reviewed by: Esha Ramos MA - Fully Assessed Reason for Visit: Patient Update [1234] Prescriptions as of 04/28/2025 - mupirocin (BACTROBAN) 2 % ointment Apply to affected area once daily. - escitalopram oxalate (LEXAPRO) 5 mg tablet Take 1 tablet by mouth once daily. - baclofen 10 mg tablet [...] by mouth daily except 7.5mg on ( [facility]) - Cholecalciferol, Vitamin D3, 50 mcg [...] white willow. Problem List As Of Date 04/27/2025 Noted Resolved ALLERGIC RHINITIS NOS [J30.9] 06/19/2004 [...] 12/23/2021 Bilateral carotid artery stenosis [I65.23] 03/21/2024 Neck pain [M54.2] 02/09/2025 Chronic pain of both shoulders [M25.511, G89.29*02/09/2025 Encounter Number (more content not included)... Normal [facility] SP/HP.SP.Beverly 04-26-2025 SP/HP.SP.EV [facility] [address] [place] [address] / REHABILITATION SERVICES INITIAL EVALUATION MR#: [id number] Acct: [id number] Name: CADY BERUMEN Rep #: [id number] : 1945 79 From: Gigi Muse M.A., [facility] Referring Dr.: Dr. Braeden John MD Status: R EG RCR Insurance: [employer] SELF PAY INSURANCE Visit History Visit Info Date of Eval: 04/26/25 Today is Visit #: 1 [place] Hand: RADHA History Attending Doctor: Referring Doctor: Reason for Referral: [facility] HERE Medical Diagnosis: Dysphagia Date of Onset of Diagnosis: 2023 Previous speech therapy: Yes Results: MBSS results from 06/14/24: Penetration-Aspiration Scale Score Thin Liquid via teaspoon: Result: 1= does not enter airway Thin Liquid via teaspoon Trial 2: Result: 1= does not enter airway Thin Liquid via small single sip: cup: Result: 1= does not enter airway Thin Liquid via sequential sips: cup: Result: 1= does not enter airway [place] Thick Liquid via small single sip: cup: Result: 1= does not enter airway Honey Thick Liquid via small single sip: cup: Result: 1= does not enter airway Pudding: Result: 1= does not enter airway Cookie: Result: 1= does not enter airway Impression: Oral phase primarily marked by... ??? Presence of oral residue after swallowing thin liquids, spilling into the pharynx. Significant risk for postprandial penetration/aspiration due to lack of awareness, preventing double swallow or airway protection. ??? Adequate mastication of cookie noted, using piecemeal deglutition. Majority of cookie remained in the vallecula and pyriforms after initial swallow. Patient independently uses a double swallow, which partially clears pharyngeal residues. Pharyngeal phase primarily marked by... ??? Notable cricopharyngeal hypertrophy at C4/C5. Bulging of cricopharyngeus impacting pharyngoesophageal bolus transit. ??? During honey-thick liquid trial, contrast lining the pyriforms with potential anatomical variations triggering an immediate reflexive cough. Fluoroscopy was briefly turned off and resumed during the cough. No aspiration observed. ??? Persistent coughing episodes may be linked to this penetration; further instrumental swallow evaluation needed. Recommendation for Fiberoptic Endoscopic Evaluation of Swallowing (FEES) to visualize structures. Esophageal phase primarily marked by... ??? Esophageal retention observed in the upper and mid esophagus following 1x bite of pudding, with retrograde flow noted below the UES. ??? Ongoing follow-up with gastroenterology recommended due to risk of reflux aspiration. Coughing episodes also may be linked to this. Recommendations Diet: Regular Textures and Thin Liquids Compensatory Strategies: Multiple Swallows, Alternate bites/solids and sips/liquids, Sitting upright and Remain sitting upright for 30 minutes after PO intake Recommend Repeat Modified Barium Swallow: No (Recommendation for Fiberoptic Endoscopic Evaluation of Swallowing (FEES) to visualize structures.) Other Relevant Medical History/Diagnoses/Surgery: Her past medical history includes shortness of breath, obstructive sleep apnea (PRAMOD), long-term use of 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, paroxysmal atrial fibrillation, asthma, near syncope, atrial tachycardia (10/14/18), varicose veins in her leg, vestibular neuritis, osteopenia, osteoarthritis, chronic venous insufficiency, glaucoma, and essential hypertension, A-FIB Medications related to this diagnosis: Baclofen, latanoprost, Metoprolol, Escitalopram, Mirabegron, warfarin Smoking Status: Never smoker Diagnosis Diagnosis: Oropharyngeal Dysphagia Pain Is pain an issue with your current prescribed condition?: No Personal Preferred language: Citizen Of [place] Patient Allergies Allergies Allergies: Allergies cat dander Allergy (Mild, Verified 03/28/25 11:17) congestion grass pollen Allergy (Mild, Verified 03/28/25 11:17) Cough, rhinitis house dust Allergy (Mild, Verified 03/28/25 11:17) Cough, rhinitis mold Allergy (Mild, Verified 03/28/25 11:17) Cough, rhinitis tree and shrub pollen Allergy (Mild, Verified 03/28/25 11:17) Cough, rhinitis Sulfa (Sulfonamide Antibiotics) Allergy (Verified 03/28/25 11:17) Itching losartan Adverse Reaction (Severe, Verified 03/28/25 11:17) dizziness, severe amlodipine Adverse Reaction (Intermediate, Verified 03/28/25 11:17) dizziness lisinopril Adverse Reaction (Intermediate, Verified 03/28/25 11:17) Nagging dry cough Benzodiazepines Adverse Reaction (Verified 03/28/25 11:17) Other diazepam (From Valium) Adverse Reaction (Verified 03/28/25 11:17) Other HALLUCINATIONS Subjective Dysphagia Symptoms Reported Symptoms/Problems with: Choking, Difficulty Swallowing Solids, Difficulty Swallowing Liquids, (more content not included)... Normal [facility] CNOVon 04-21-2025 CNOV Office Visit (PODIWS ) -- CADY BERUMEN ([id number]) 1945 F Date Time Provider Department 04/21/25 8:00 AM DAQUAN BUCHANAN PODIWS During your visit today, we recorded the following information about you: Daquan Buchanan 04/22/2025 10:41 AM Signed FOLLOW UP PODIATRIC OFFICE VISIT Chief Complaint: This 79 year old who presents for follow up:left great toenail Patient presents to clinic for evaluation of left great toenail. Complains of deformed toenail and desires permanent removal via chemical matrixectomy Is on coumadin and has held since Thursday evening Has no other complaints. PAIN EVALUATION No data found in the last 1 encounters. Hemoglobin A1C Date Value Ref Range Status 07/29/2022 5.5 4.3 - 5.6 % Final Comment: [place] [employer] guidelines indicate that patients with HgbA1c in the range 5.7-6.4% are at increased risk for development of diabetes, and intervention by lifestyle modification may be beneficial. HgbA1c greater or equal to 6.5% is considered diagnostic of diabetes. PCP: Moon Teixeira MD PAST MEDICAL HISTORY [...] deficiency 09/20/2013 Current Outpatient Medications Medication Sig escitalopram oxalate (LEXAPRO) 5 mg tablet Take 1 tablet by mouth once daily. (Patient taking differently: Take 5 mg by mouth once daily. On hold) baclofen 10 mg tablet Take 1 tablet [...] by mouth daily except 7.5mg on ( [facility]) Cholecalciferol, Vitamin D3, 50 mcg (2,000 unit) cap Take 2 capsules by mouth once daily. COQ10, UBIQUINOL, ORAL Take 30 mg by mouth. latanoprost (XALATAN) 0.005 % ophthalmic solution Use 1 Drop in both eyes daily at bedtime. furosemide (LASIX) 20 mg tablet Take 20 mg by mouth once daily. (Patient not taking: Reported on 04/21/2025) No current facility-administered medications for this visit. [...] FLX DX W/COLLJ SPEC WHEN PFRMD 08/23/2019 WC-Ana Cebul repeat is not recommended NEUROPLASTY AND/TRANSPOS MEDIAN NRV CARPAL TUNNE 1990 Carpal tunnel decomp-bilateral PAST SURGICAL HISTORY OF 08-21-05 EXCISION CYST LEFT MIDDLE FINGER PAST SURGICAL HISTORY OF right foot surgery- mortons neuroma PAST SURGICAL HISTORY OF 2013 left foot vein ablation TONSILLECTOMY PRIMARY/SECONDARY AGE 12/1961 Physical Exam: OBJECTIVE: Constitutional: Pt is a well developed 79 year old female who is alert, oriented, cooperative and in no apparent distress. Eyes: Following during examination. No redness or drainage. Respiratory: RR normal and nonlabored. Even breathing. No evidence of distress. Psychology: Patient is engaged during conversation. Normal affect and mood. Does not appear depressed or anxious. NVSI unchanged from previous visit. Non-Invasive Vascular Laboratory [facility] Lower Extremity Arterial Physiology Study Bilateral/Complete Date of service/time: 03/02/2025 3:39:28 PM Name: MRS. CADY BERUMEN Date of : 1945 Age: 79 years Gender: F Clinical Indication Decreased pulses. TECHNIQUE -------- An arterial physiological examination was performed, including measurement of blood pressures using continuous wave Doppler and recording of plethysmographic with or withou (more content not included)... Normal [facility] JAMAICACADY ([id number]) 1945 F Date Time Provider Department 04/21/25 DAQUAN BUCHANAN During your visit today, we recorded the following information about you: Alta Nagy LPN 04/21/2025 4:01 PM Signed Patient called. Verified name and date of . Patient states her toenail where she had procedure done this morning is throbbing pretty bad with tylenol and motrin alternating ineffective. She plans to put ice on the toe and is aware not to leave on for more than 20 minutes at a time and taking it easy this weekend. Discussed taking Tylenol and Motrin stacked but not together as she took Tylenol at 0700. Motrin at noon, with no relief. Please review and advise if anything else is recommended. TOYA Bardales Amanda, RN 04/21/2025 4:21 PM Signed Returned patient's call. She states that the toe is not too painful, but is uncomfortable. Informed her that she can alternate between the Tylenol and Motrin, elevate the foot, apply ice (not directly to the skin and no longer than 20 minutes), and if needed she can loosen the dressing a little. Patient is agreeable stating that she wanted to make sure it was okay to apply ice as it was not on the after instructions. She will try all the recommended strategies for relief. Patient will be able to soak the toe in warm water starting tomorrow which may also help with the pain. She is agreeable and will notify the office if she needs anything else. Allergies As of Date: 04/21/2025 Noted Allergy Reaction FRAGRANCES 11/28/2014 3 - [...] Other: See Comments Comments: nausea Date Reviewed: 04/21/2025 Reviewed by: Esha Ramos MA - Fully Assessed Reason for Visit: Patient Update [1234] Prescriptions as of 04/21/2025 - mupirocin (BACTROBAN) 2 % ointment Apply to affected area once daily. - escitalopram oxalate (LEXAPRO) 5 mg tablet Take 1 tablet by mouth once daily. - baclofen 10 mg tablet [...] by mouth daily except 7.5mg on ( [facility]) - Cholecalciferol, Vitamin D3, 50 mcg [...] [place]. Problem List As Of Date 04/21/2025 Noted Resolved ALLERGIC RHINITIS NOS [J30.9] 06/19/2004 [...] Asthma [J45.909] 04/20/2018 Facet arthritis of cervical (more content not included)... Normal [facility] normalized rat io (INR) measurement by fingerstickOrdered By: Bart Rosales on 04-20-2025 INR Coag (BldC) [Relative time] 1.8 [facility] Comment on above: Critical Value > 4.0 Prothrombin Time w/INRon INR Normal [facility] Comment on above: Order Comment: Comme nts: STANDING ORDER: Fax to 0203 Result Comment: FING ERSTICK Performed By: #### L [id number] #### [facility] [address] [place], [place], [id number] PROTIME Normal 11.7-14.9 [facility] Comment on above: Order Comment: Comme nts: STANDING ORDER: Fax to 0030 Result Comment: FING ERSTICK Performed By: #### L [id number] #### [facility] [address] [place], [address] Protime w/INR Fingerstickon 04-20-2025 INR Coag (PPP) [Relative time] 1.8 {INR} Normal [facility] Comment on above: Result Comment: Crit ical Value > 4.0 Performed By: #### L 9200.0000 #### [facility] [address] [place], [address] Protime Coagsen 19.8 SEC High 11.7-14.9 [facility] Comment on above: Performed By: #### L 9200.0000 #### [facility] [address] [place], [address] Whole blood prothrombin time Ordered By: Bart Rosales on 04-20-2025 PT Coag (Bld) [Time] 19.8 s High 11.7-14.9 [facility] CNOVon 04-17-2025 CNOV Office Visit (PODIWS ) -- CADY BERUMEN ([id number]) 1945 F Date Time Provider Department 04/17/25 11:00 AM DAQUAN BUCHANAN During your visit today, we recorded the following information about you: Megan Skelton, RN 04/17/2025 11:40 AM Signed Patient presents with: Left Great Toe - Ingrown Nail, Established Patient, Follow Up, Procedure Patient presents for matrixectomy of left hallux due to dystrophic nail. PVR was done 03/02/25 and showed normal circulation. Is on 5 mg of Coumadin for A-fib, last took it last night. CAMRON 07/28/2024 Dqauan Buchanan 04/17/2025 11:35 AM Signed Go to [facility] to check your INR. Will have you stop the coumadin on Thursday, Thursday and Will proceed with nail procedure on Thursday. Can resume coumadin Thursday evening Plan is subject to change pending results of INR MARINA Abdullahi Matthew 04/17/2025 11:40 AM Signed Subjective Cady Berumen is a 79-year-old female with a history of atrial fibrillation, presenting for evaluation of a painful left great toenail with ingrowing tendencies. Cady reports recurrent pain in the left great toenail, particularly when the nail grows inward on the medial side. She has previously undergone removal of the second, third, and fourth toenails on the left foot, as well as two toenails on the right foot, and is considering removal of the left great toenail due to persistent discomfort. She is currently on Coumadin for atrial fibrillation and inquires about the implications of toenail removal while on anticoagulation therapy. She recalls a recent INR of 2.4, checked at the beginning of the month. Cady also notes thin skin around the affected area, causing pain during flexion and bending. She has been applying oil to the area in an attempt to alleviate discomfort. She denies current pain with ankle joint dorsiflexion or with movement of the foot in and out. She also denies any signs of infection at this time. Skin: (+) left great toenail pain, (+) thin skin of left great toe, (+) bleeding of left great toenail when trimming Musculoskeletal: (-) foot pain with movement PAST MEDICAL HISTORY Diagnosis Date A-fib ([facility]) February 2021 Asthma ([facility]) Atrial tachycardia ([facility]) 10/14/2018 BPPV (benign paroxysmal positional vertigo) 10/30/2014 Degenerative disc disease 08/10/2014 Mild Degenerative disc disease C6-C7 Mild Anterolisthesis C7-T-1`- See scanned document Essential hypertension, benign Fibromyalgia Glaucoma, open angle Hypothyroidism 10/14/2018 Varicose veins 08/25/2014 Varicose veins of other sites Venous stasis ulcer of ankle 07/18/2013 Vestibular neuronitis Vitamin D deficiency 09/20/2013 Current Outpatient Medications Medication Sig Dispense Refill escitalopram oxalate (LEXAPRO) 5 mg tablet Take 1 tablet by mouth once daily. (Patient taking differently: Take 5 mg by mouth once daily. On hold) 30 tablet 2 baclofen 10 mg tablet Take 1 tablet by mouth three times a day as needed (muscle spasms). 30 tablet 1 metoprolol tartrate, short acting, (LOPRESSOR) 25 mg tablet Take 12.5 mg by mouth as needed. Takes as needed for rapid HR timolol maleate (TIMOPTIC) 0.5 % ophthalmic solution Use 1 Drop in both eyes twice daily. warfarin (COUMADIN) 5 mg tablet Take 1 tablet by mouth daily except 7.5mg on ( [facility]) 30 tablet 11 Cholecalciferol, Vitamin D3, 50 mcg (2,000 unit) cap Take 2 capsules by mouth once daily. 60 capsule 11 COQ10, UBIQUINOL, ORAL Take 30 mg by mouth. latanoprost (XALATAN) 0.005 % ophthalmic solution Use 1 Drop in both eyes daily at bedtime. furosemide (LASIX) 20 mg tablet Take 20 mg by mouth once daily. (Patient not taking: Reported on 04/17/2025) No current facility-administered medications for this visit. Family History Problem Relation Age of Onset Heart Father Allergies Sister Breast Cancer Sister age of 50's with diagnosis Prostate Cancer Brother Objective There were no vitals taken for this visit. - Cardiovascular: Dorsalis pedis and posterior tibial pulses faintly palpable on the left foot. Capillary refill time immediate in the left great toe. Skin temperature warm from proximal to distal. Hair growth diminished on the left foot. Multiple varicose veins noted on the left foot. - Skin: Left great toenail thickened with ingrowing tendency along medial and lateral borders; no signs of infection. Left second, third, and fourth nails removed. right great toenail is thick and discolored and incurvated with pain. - Musculoskeletal: Diminished ROM in left ankle joint; no pain with dorsiflexion. Diminished ROM in left subtalar joint; no pain with inversion/eversion. Labs: (no date) INR: 2.4 (elevated) Tests: (February 2025) Noninvasive vascular study: - Left ankle brachial index (dorsalis pedis): (more content not included)... Normal [facility] Protime w/INR Fingerstickon 04-17-2025 INR Coag (PPP) [Relative time] 3.2 {INR} Normal [facility] Comment on above: Result Comment: Crit ical Value > 4.0 Performed By: #### L 9200.0000 #### [facility] [address] [place], [address] Protime Coagsen 32.7 SEC High 11.7-14.9 [facility] Comment on above: Performed By: #### L 9200.0000 #### [facility] [address] [place], [address] CNOVon 04-11-2025 CNOV Office Visit (INTMWS ) -- CADY BERUMEN ([id number]) 1945 F Date Time Provider Department 04/11/25 10:40 AM MOON TEIXEIRA INTMWS During your visit today, we recorded the following information about you: Moon Teixeira MD 04/11/2025 12:02 PM Signed Reason for Visit Follow up HPI Cady Berumen is a 79-year-old female with a history of atrial fibrillation, presenting for follow-up. Cady reports a recent fall while attempting to dig out a stump, resulting in facial trauma including two black eyes and bruising around the nose. She initially suspected a nasal fracture but later confirmed it was not fractured. The fall occurred on soft ground, which she notes was less painful than a previous fall on cement. She did not seek emergency care for the fall. She has been experiencing episodes of dyspnea and fatigue, which she attributes to her atrial fibrillation. She was evaluated in the emergency department on 03/15 for these symptoms. She is scheduled for an ablation procedure on 08/11, which she hopes will alleviate her symptoms. She reports that her Holter monitor showed she is in atrial fibrillation 38% of the time. She notes that stress exacerbates her atrial fibrillation episodes, with her heart rate reaching up to 130 bpm during a recent episode. She takes metoprolol to manage her heart rate. Cady also reports a sensation of walking on trudy and an abnormal gait, which was noticed by a friend. She has gained approximately 20 pounds, which she attributes to stress eating and a sedentary lifestyle. She has attempted to walk twice a day but finds it difficult in the heat due to her atrial fibrillation and dyspnea. She is experiencing significant stress related to her daughter's medical condition and financial difficulties. Her daughter has Lyme disease and is unable to work, leading Cady to christianson in her CDs to cover medical expenses. She has also paid for her own cremation to ensure her daughters receive some financial support after her . She reports high levels of anxiety and is considering resuming Lexapro, which she has taken in the past. She has three daughters, all of whom are facing challenges. One daughter in [place] is recovering from alcoholism and is trying to establish a career in art and yoga. Another daughter in [place] is completing medical equipment sales training and is seeking employment. Cady feels overwhelmed by the financial and emotional support she is providing to her daughters. SOCIAL HISTORY[1] Past medical history, appointments, medications, allergies reviewed. Pertinent Lab/Diagnostic Studies are reviewed and discussed today Current Outpatient Medications: escitalopram oxalate (LEXAPRO) 5 mg tablet baclofen 10 mg tablet furosemide (LASIX) 20 mg tablet metoprolol tartrate, short acting, (LOPRESSOR) 25 mg tablet timolol maleate (TIMOPTIC) 0.5 % ophthalmic solution warfarin (COUMADIN) 5 mg tablet Cholecalciferol, Vitamin D3, 50 mcg (2,000 unit) cap COQ10, UBIQUINOL, ORAL latanoprost (XALATAN) 0.005 % ophthalmic solution Health Maintenance Anxiety Screening DTaP,Tdap,Td Vaccine(1 - Tdap) Medicare Annual Wellness Visit Advance Directive Discussion@ Review Of Systems Constitutional: (+) fatigue, (+) weight gain Respiratory: (+) shortness of breath Musculoskeletal: (+) abnormal gait Neurological: (+) paresthesia of feet Psychiatric: (+) anxiety Physical Exam There were no vitals taken for this visit. GENERAL: NAD, alert and oriented SKIN: unremarkable, no rash or skin lesions. HEAD: normocephalic EYES: PERRLA, EOMI, conjunctiva clear EARS: external ears normal, canals clear, TM's normal. LUNGS: Clear to auscultation bilaterally, no wheezes/rhonchi/rales. HEART: Regular rate and rhythm, no murmurs. No ectopy. EXTREMITIES: Normal, No deformities, No skin discoloration, No edema. NEURO: Awake, alert and oriented x3, cranial nerves II-XII grossly intact, normal gait, no involuntary motions Tests - Holter monitor: Atrial fibrillation 38% of the time Imaging - Echocardiogram: No findings stated Assessment and Plan 1. Paroxysmal atrial tachycardia (HCC) (I47.19) Paroxysmal atrial fibrillation with associated fatigue and dyspnea; Holter monitor demonstrated AFib 38% of the time. - Ablation scheduled for August 11. 2. Anxiety (F41.9) 3. Encounter for screening examination for other mental health and behavioral disorders (Z13.39) Significant anxiety related to family and financial stressors; previously treated with Lexapro. - Start Lexapro at low dose. - Follow-up in 3 months. 4. Essential hypertension (I10) Blood pressure variability likely stress-related. - Continue current management. 5. History of falling (Z91.81) Recent mechanical fall while digging out a stump; no serious injury reported. - Patient conta (more content not included)... Normal [facility] Cardiology Visit Reporton Cardiology Visit Report [facility] [place] [id number] [place] [address] OFFICE VISIT Date of Service: 03/28/25 MR#: [id number] Acct: [id number] Name: CADY BERUMEN Rep #: [id number] : 1945 Provider: Dr. Yinka jiang MD Age/Sex: 79/F Location: [facility] [place] Status: Signed HPI HPI History of Present Illness Details: Patient is a pleasant 79-year-old white female that comes in today for monitoring of her cardiovascular status. Patient carries a history of paroxysmal atrial fibrillation. She reports that she has been having episodes about every 2 to 3 weeks they are usually controlled with a either deep breathing and relaxation techniques and they revert spontaneously into sinus rhythm or with his pill in the pocket utilizing metoprolol. She does feel washed out and fatigued after utilizing the metoprolol the next day. She does feel the atrial fibrillation with a fluttering sensation in her neck. The patient is scheduled for ablation of her atrial fibrillation by Dr. Pena in July 2025. She is received instructions about checking her INR each Thursday for 3 weeks prior to that ablation no August 11. We will obtain those INRs and fax them to Dr. Pena's office. Fax number [phone]. The patient was seen in the emergency department March 15, 2025 when she was hypotensive. Her blood pressure was 88/59 and her home environment she presented the emergency department but blood pressures were normal by the time she got there. She had not taken any metoprolol or any other new medications it did appear that she was dehydrated and she received 500 cc of normal saline and was discharged to home. The patient's blood pressure has been adequately controlled in her home environment. Blood pressure today is 119/74 heart rate 59. ECG done in office today shows sinus bradycardia at 53 bpm possible left atrial enlargement otherwise is unremarkable QT intervals are normal. Patient is on long-term oral anticoagulation managed through the [place] [facility] warfarin [facility]. The patient had a mechanical fall yesterday when she was pulling roots in her garden. She absolutely denies any syncope or near syncope or lightheadedness. She also had an episode where she tripped and fell on the concrete within the past year. Intake Vital Signs 11/28/24 14:25 03/15/25 14:39 03/28/25 11:09 Height 5 ft 5 in 5 ft 5 in 5 ft 5 in Weight: 166 lb BMI 27.6 BP 119/74 Blood Pressure Location Lt brachial Position Sitting Respiration 18 Pulse 59 L Pulse Source Monitor Intake Visit Reasons: 6 M FU Allergies cat dander Allergy (Mild, Verified 03/28/25 11:17) congestion grass pollen Allergy (Mild, Verified 03/28/25 11:17) Cough, rhinitis house dust Allergy (Mild, Verified 03/28/25 11:17) Cough, rhinitis mold Allergy (Mild, Verified 03/28/25 11:17) Cough, rhinitis tree and shrub pollen Allergy (Mild, Verified 03/28/25 11:17) Cough, rhinitis Sulfa (Sulfonamide Antibiotics) Allergy (Verified 03/28/25 11:17) Itching losartan Adverse Reaction (Severe, Verified 03/28/25 11:17) dizziness, severe amlodipine Adverse Reaction (Intermediate, Verified 03/28/25 11:17) dizziness lisinopril Adverse Reaction (Intermediate, Verified 03/28/25 11:17) Nagging dry cough Benzodiazepines Adverse Reaction (Verified 03/28/25 11:17) Other diazepam (From Valium) Adverse Reaction (Verified 03/28/25 11:17) Other Medications ???Medication ???Instructions ???Recorded ???Confirmed ???Type latanoprost 0.005 % eye drops 1 drp EACH EYE [facility] eye health 02/2103/28/25 History coenzyme Q10 50 mg chewable tablet 30 mg PO DAILY 06/07/19 03/28/25 History metoprolol tartrate 25 mg tablet 12.5 mg (1/2 x 25 mg) PO BID PRN 0 09/09/24 03/28/25 Rx afib #180 tabs timolol maleate 0.5 % eye drops 1 drp ophthalmic (eye) BID 5 03/28/25 History warfarin 5 mg tablet 7.5 mg PO SUTUTHSA 11/28/24 History warfarin 5 mg tablet 5 mg PO .COMPLEX #120 tabs 5 03/28/25 Rx ascorbic acid (vitamin C) 500 mg 1 g PO DAILY 03/15/25 03/28/25 His tory tablet (C-500) cholecalciferol (vitamin D3) 25 2,000 unit PO DAILY vitamin 03/28/25 History mcg (1,000 unit) tablet Ejection fraction %: 70 Have you fallen in the past year?: Yes (2 days ago-fell pulling roots out of ground) 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 Normal [facility] CNCOon 03-21-2025 CNCO Letter Text Normal [facility] CNPNon 03-21-2025 CNPN Telephone (EPSMN) -- CADY BERUMEN ([id number]) 1945 F Date Time Provider Department 03/21/25 MYNOR SHIRLEY EPSMN During your visit today, we recorded the following information about you: Poppy Mueller RN 03/21/2025 9:01 AM Signed ----- Message from Mynor Shirley MD sent at 01/04/2025 11:34 AM EDT ----- Regarding: schedule PVI Patient: Cady Berumen EP Lab Procedure requested: Ablations PVI ablation CPT 55858 Anticoagulation Status: INR in EPIC Requesting Physician: Mynor Shirley MD Procedural Physician: Mynor Shirley MD Date of last HANDP or Date of upcoming HANDP: 01/04/25 Indications for procedure: Atrial Fibrillation Procedure time frame: Patient convenience Current Meds: Current Outpatient Medications: ? baclofen 10 mg tablet? furosemide (LASIX) 20 mg tablet? metoprolol tartrate, short acting, (LOPRESSOR) 25 mg tablet? timolol maleate (TIMOPTIC) 0.5 % ophthalmic solution? warfarin (COUMADIN) 5 mg tablet? Cholecalciferol, Vitamin D3, 50 mcg (2,000 unit) cap? COQ10, UBIQUINOL, ORAL? latanoprost (XALATAN) 0.005 % ophthalmic solution input Section Potential Research Patient: No General anesthesia or Managed Anesthesia Care (MAC) needed: Yes Conscious Sedation: No Mapping Ablation: Rhythmia CT Scan needed pre-procedure: No ECHO needed pre-procedure: No Anticoagulation: Continue anticoagulation. Do not interrupt. Stop Antiarrhythmic: No Stop Beta Yvonne/ Calcium Channel Yvonne: No ASA: N/A Plavix: Continue, do not hold Additional instructions:None Is the patient a candidate for same day d/c: Yes Mynor Shirley MD January 04, 2025 11:34 AM Poppy Mueller RN 03/21/2025 9:07 AM Signed The date of 08/11/25 with offered AND accepted by patient. OPD with Dr. Shirley, Device Clinic and ECG are scheduled on 08/08/25. Needs Labs (CBC CMP,INR,30 day TANDS) on 08/08/25 prior to procedure date. Medication instructions given, as indicated below. Stated understanding. Letter with instructions and INR record for Coumadin mailed to the patient. Allergies As of Date: 03/21/2025 Noted Allergy Reaction FRAGRANCES 11/28/2014 3 - [...] Reviewed: 01/26/2025 Reviewed by: José Miguel Saldaña APRN.EARLY CHILDHOOD - Fully Assessed Reason for Visit: Schedule Surgery [1330] Cmt: PVI ablation Primary Visit Diagnosis:Paroxysmal atrial fibrillation (HCC) [I48.0] Order(s):COMPLETE BLOOD COUNT [SQCBC] Order #: [id number] FUTURE COMPREHENSIVE METABOLIC PANEL [SQCMP] Order #: [id number] FUTURE PROTHROMBIN TIME [SQPT] Order #: [id number] FUTURE TYPE AND SCREEN,30 DAY [AAPVFL30] Order #: [id number] FUTURE Prescriptions as of 03/21/2025 - baclofen 10 mg tablet Take 1 [...] mouth daily except 7.5mg on ( [facility]) - Cholecalciferol, Vitamin D3, 50 mcg (2,000 [...] white willow. Problem List As Of Date 03/21/2025 Noted Resolved ALLERGIC RHINITIS NOS [J30.9] 06/19/2004 WOUND (NOT COMPLICATED) - OPEN FINGER(S) [S61.*06/14/2005 10/08/2014 GANGLION JOINT (Mucous cyst left hand 3rd digit*08/07/2005 10/08/2014 GENERAL OSTEOARTHROSIS [M15.9] 11/23/2006 Abdominal pain, unspecified site [R10.9] 11/23/2006 10/08/2014 Lumbago [M54.50] 11/16/2008 10/08/2014 Rectal bleeding [K62.5] 09/06/2010 10/08/2014 Cellulitis [L03.90] 06/24/2013 10/08/2014 Ulcer of ankle (HCC) [L (more content not included)... Normal [facility] 03-17-2025 [facility] Telephone (EMRE) -- CADY BERUMEN ([id number]) 1945 F Date Time Provider Department 03/17/25 MYNOR SHIRLEY During your visit today, we recorded the following information about you: Ramya Hopson 03/17/2025 11:28 AM Signed March 17, 2025 Patient Contact Number: [phone] (home) [phone] (cell) Patient last seen within the last year: Yes , Date last seen on: 12/30/24 Reason For Call: Follow-up Questions: Patient had a recent ER visit and her blood pressure dropped. Patient states, I was feeling really crummy... I get weak as a kitten... Physician:Mynor Shirley MD Patient was informed that non-urgent calls may be returned within the next three business days. Yes Please advise. Thanks, Ramya IC 955 Merly Pagan RN 03/20/2025 4:07 PM Signed Returned call, no answer, left message. Merly Pagan RN Allergies As of Date: 03/17/2025 Noted Allergy Reaction FRAGRANCES 11/28/2014 3 - [...] Reviewed: 01/26/2025 Reviewed by: José Miguel Saldaña APRN.EARLY CHILDHOOD - Fully Assessed Prescriptions as of 03/20/2025 - baclofen 10 mg tablet Take 1 [...] by mouth daily except 7.5mg on ( [facility]) - Cholecalciferol, Vitamin D3, 50 mcg [...] white willow. Problem List As Of Date 03/17/2025 Noted Resolved ALLERGIC RHINITIS NOS [J30.9] 06/19/2004 [...] 12/23/2021 Bilateral carotid artery stenosis [I65.23] 03/21/2024 Neck pain [M54.2] 02/09/2025 Chronic pain of both shoulders [M25.511, G89.29*02/09/2025 Encounter Status:Closed by MERLY PAGAN on 03/20/25 [facility] 12 Lead EKGon 03-15-2025 12 Lead EKG [facility] [address] [place] [address] 12 Lead EKG 03/15/25 1549 MR#: [id number] Acct: [id number] Name: CADY BERUMEN Rep #: [id number] : 1945 79 From: Momo Jensen MD Attending Dr: Status: DEP ER Ordering Dr: Johnie Kelsey DO Date: 03/15/25 Location: ED Sex: F C Admitted: Test Reason : GENERAL Blood Pressure : */* mmHG Vent. Rate : 60 BPM Atrial Rate : 60 BPM P-R Int : 200 ms QRS Dur : 78 ms QT Int : 404 ms P-R-T Axes : 63 -19 41 degrees QTcB Int : 404 ms Sinus rhythm with Premature atrial complexes Otherwise normal ECG Confirmed by BRANDO BAILEY, SONYA ([id number]), writer editor RAMONITA BOOGIE ([id number]) on 03/17/2025 1:09:56 PM Referred By: Confirmed By: SONYA JENSEN MD 03/17/25 1309 Date Momo Jensen MD CC: Dr. Moon Teixeira MD; Dr. Johnie Kelsey, DO Signed Normal [facility] Absolute lymphocyte countOrd ered By: Johnie Kelsey on 03-15-2025 Lymphocytes Auto (Unsp spec) [#/Vol] 1.34 10*3/uL 0.83-4.51 [facility] Absolute neutrophil countOrd ered By: Johnie Kelsey on 03-15-2025 Neutrophils (Bld) [#/Vol] 2.9 10*3/uL 2.0-7.7 [facility] Anion gap in Serum or Plasma Ordered By: Johnie Kelsey on 03-15-2025 Anion gap [Moles/Vol] 10 mmol/L 5-15 [facility] Automated lymphocyte count a s percentage of total leukocytesOrdered By: Johnie Kelsey on 03-15-2025 Lymphocytes/100 WBC Auto (Unsp spec) 25.9 % 19-41 [facility] BUN/creatinine ratioOrdered By: Johnie Kelsey on 03-15-2025 Urea nitrogen/Creatinine [Mass ratio] 33.3 mg/mg High 10-20 [facility] Basophil percentageOrdered B y: Johnie Kelsey on 03-15-2025 Basophils/100 WBC (Bld) 1.0 % 0-1 [facility] Bilirubin Test strip Ql (U)O rdered By: Johnie Kelsey on 03-15-2025 Bilirubin Ql (U) Negative Negative [facility] Bilirubin, totalOrdered By: Johnie Kelsey on 03-15-2025 Bilirubin [Mass/Vol] 0.33 mg/dL 0.00-1.30 [facility] CBC W/Diff, Automatedon 02-22 Absolute Lymph 1.34 X10 3/uL Normal 0.83-4.51 [facility] Comment on above: Performed By: #### L 9200.0000 #### [facility] [address] [place], [address] Absolute Neut 2.9 X10 3/uL Normal 2.0-7.7 [facility] Comment on above: Performed By: #### L 9200.0000 #### [facility] [address] [place], [address] Basophils/100 WBC (Bld) 1.0 % Normal 0-1 [facility] Comment on above: Performed By: #### L 9200.0000 #### [facility] [address] [place], [address] Eosinophils/100 WBC (Bld) 3.1 % Normal 0-5 [facility] Comment on above: Performed By: #### L 9200.0000 #### [facility] [address] [place], [address] Erythrocyte distribution width (RBC) [Ratio] 13.5 % Normal 11.6-14.6 [facility] Comment on above: Performed By: #### L 9200.0000 #### [facility] [address] [place], [address] Hematocrit (Bld) [Volume fraction] 35.1 % Low 37-47 [facility] Comment on above: Performed By: #### L 9200.0000 #### [facility] [address] [place], [address] Hemoglobin (Bld) [Mass/Vol] 11.2 g/dL Low 12.0-15.0 [facility] Comment on above: Performed By: #### L 9200.0000 #### [facility] [address] [place], [address] IG% 0.400 Normal 0.0-0.9 [facility] Comment on above: Result Comment: IG% - Immature Granulocytes (promyelocytes, myelocytes and metamyelocytes) > 1% indicates that a LEFT SHIFT is Present. Performed By: #### L 9200.0000 #### [facility] [address] [place], [address] Lymphocytes/100 WBC (Bld) 25.9 % Normal 19-41 [facility] Comment on above: Performed By: #### L 9200.0000 #### [facility] [address] [place], [address] MCH (RBC) [Entitic mass] 31.5 pg Normal 27.0-32.0 [facility] Comment on above: Performed By: #### L 9200.0000 #### [facility] [address] [place], [address] MCHC (RBC) [Mass/Vol] 31.9 g/dL Low 32-36 [facility] Comment on above: Performed By: #### L 9200.0000 #### [facility] [address] [place], [address] MCV (RBC) [Entitic vol] 98.9 fL Normal 81-99 [facility] Comment on above: Performed By: #### L 9200.0000 #### [facility] [address] [place], [address] Monocytes/100 WBC (Bld) 13.1 % High 0-10 [facility] Comment on above: Performed By: #### L 9200.0000 #### [facility] [address] [place], [address] Neutrophils/100 WBC (Bld) 56.5 % Normal 47-70 [facility] Comment on above: Performed By: #### L 9200.0000 #### [facility] [address] [place], [address] Nucleated RBC (Bld) [#/Vol] 0 10*3/uL Normal 0-5 [facility] Comment on above: Performed By: #### L 9200.0000 #### [facility] [address] [place], [address] Platelet mean volume (Bld) [Entitic vol] 13.1 fL High 6.2-12.0 [facility] Comment on above: Performed By: #### L 9200.0000 #### [facility] [address] [place], [address] Platelets (Bld) [#/Vol] 164 10*3/uL Normal 150-450 [facility] Comment on above: Performed By: #### L 9200.0000 #### [facility] [address] [place], [address] RBC (Bld) [#/Vol] 3.55 10*6/uL Low 4.2-5.4 [facility] Comment on above: Performed By: #### L 9200.0000 #### [facility] [address] [place], [address] RDW SD 49.9 fl High 35.1-43.9 [facility] Comment on above: Performed By: #### L 9200.0000 #### [facility] [address] [place], [address] WBC (Bld) [#/Vol] 5.2 10*3/uL Normal 4.4-11.0 [facility] Comment on above: Performed By: #### L 9200.0000 #### [facility] [address] [place], [address] Carbon dioxide, total [Moles /volume] in Central venous bloodOrdered By: Johnie Kelsey on 03-15-2025 CO2 [Moles/Vol] 24.0 mmol/L 21.0-32.0 [facility] Chest 1 View (Portable)on Chest 1 View (Portable) [facility] Imaging Services [address] [place] [address] Chest 1 View (Portable) MR#: [id number] Acct: [id number] Name: CADY BERUMEN Rep #: [id number] : 1945 F 79 From: Latrell Ortiz MD PCP: Dr. Moon Teixeira MD Status: REG ER Study: Chest 1 View (Portable) Date of Exam: 03/15/25 Exam# [id number] Ordering Dr: Johnie Kelsey DO PROCEDURE: CHEST 1 VIEW (PORTABLE) [...] Cardiomegaly. No acute pulmonary disease. Reading Location: [id number] CC: Dr. Moon Teixeira MD; Dr. Johnie Kelsey DO A And P Technician: Signed Normal [facility] Chloride assayOrdered By: Kelli Kelsey on 03-15-2025 Chloride [Moles/Vol] 103 mmol/L 98-108 [facility] Comprehensive Metabolic Prof ilon 03-15-2025 Albumin [Mass/Vol] 3.9 g/dL Normal 3.4-4.8 [facility] Comment on above: Performed By: #### L 9200.0000 #### [facility] [address] [place], [place], [address] Albumin/Globulin [Mass ratio] 1.5 {ratio} Normal 0.9-2.4 [facility] Comment on above: Performed By: #### L 9200.0000 #### [facility] [address] [place], [place], [address] ALK PHOS 76 U/L Normal 35-104 [facility] Comment on above: Performed By: #### L 9200.0000 #### [facility] [address] [place], [address] ALT [Catalytic activity/Vol] 12 U/L Normal <=34 [facility] Comment on above: Performed By: #### L 9200.0000 #### [facility] [address] [place], [address] AST [Catalytic activity/Vol] 15 U/L Normal <=31 [facility] Comment on above: Performed By: #### L 9200.0000 #### [facility] [address] [place], [address] Bilirubin [Mass/Vol] 0.33 mg/dL Normal 0.00-1.30 [facility] Comment on above: Performed By: #### L 9200.0000 #### [facility] [address] [place], [address] BUN/CRE 33.3 RATIO High 10-20 [facility] Comment on above: Performed By: #### L 9200.0000 #### [facility] [address] [place], [address] Calcium [Mass/Vol] 9.1 mg/dL Normal 7.6-11.0 [facility] Comment on above: Performed By: #### L 9200.0000 #### [facility] [address] [place], [address] Chloride [Moles/Vol] 103 mmol/L Normal 98-108 [facility] Comment on above: Performed By: #### L 9200.0000 #### [facility] [address] [place], [address] CO2 [Moles/Vol] 24.0 mmol/L Normal 21.0-32.0 [facility] Comment on above: Performed By: #### L 9200.0000 #### [facility] [address] [place], [address] Creatinine [Mass/Vol] 0.86 mg/dL Normal 0.70-1.20 [facility] Comment on above: Performed By: #### L 9200.0000 #### [facility] [address] [place], [address] GAP 10 Normal 5-15 [facility] Comment on above: Performed By: #### L 9200.0000 #### [facility] [address] [place], [address] GFR/1.73 sq M.predicted among non-blacks MDRD (S/P/Bld) [Vol rate/Area] 69 mL/min/{1.73_m2} Normal >60 [facility] Comment on above: Result Comment: mL/m in/1.73m2 CKD-EPI Creatinine Equation (2020) Performed By: #### L 9200.0000 #### [facility] [address] [place], [address] Globulin (S) [Mass/Vol] 2.7 g/dL Normal 2.2-4.2 [facility] Comment on above: Performed By: #### L 9200.0000 #### [facility] [address] [place], [address] Glucose [Mass/Vol] 90 mg/dL Normal 70-99 [facility] Comment on above: Performed By: #### L 9200.0000 #### [facility] [address] [place], [address] Potassium [Moles/Vol] 4.3 mmol/L Normal 3.3-5.1 [facility] Comment on above: Performed By: #### L 9200.0000 #### [facility] [address] [place], [address] Sodium [Moles/Vol] 138 mmol/L Normal 133-145 [facility] Comment on above: Performed By: #### L 9200.0000 #### [facility] [address] [place], [address] T PROT 6.6 g/dL Normal 5.9-8.4 [facility] Comment on above: Performed By: #### L 9200.0000 #### [facility] [address] [place], [address] Urea nitrogen [Mass/Vol] 29 mg/dL High 4-19 [facility] Comment on above: Performed By: #### L 9200.0000 #### [facility] [address] [place], [address] Emergency Department Summary on 03-15-2025 Emergency Department Summary [facility] Medical Records Department [address] [place] [address] Emergency Department Summary 03/15/25 MR#: [id number] Acct: [id number] Name: CADY BERUMEN Rep #: [id number] : 1945 79 From: Johnie Kelsey DO PCP: Dr. Moon Teixeira MD Status:REG ER Location: ED HPI History of Present Illness Chief Complaint: Hypotension [facility] Medical History Shortness of breath PRAMOD (obstructive sleep apnea) intermediate (current) use of 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 Paroxysmal atrial fibrillation Change in bowel habit Asthma Near syncope Atrial tachycardia (10/14/18) Varicose vein of leg Vestibular neuritis Osteopenia Osteoarthritis Chronic venous insufficiency Glaucoma Essential (primary) hypertension Home Medications ???Medication ???Instructions ???Recorded ???Last Taken ???Type cholecalciferol (vitamin D3) 25 1,000 unit PO DAILY vitamin 03/14/25 History mcg (1,000 unit) tablet latanoprost 0.005 % eye drops 1 drp EACH EYE [facility] eye health 02/2103/14/25 History coenzyme Q10 50 mg chewable tablet 30 mg PO DAILY 06/07/19 03/14/25 History metoprolol tartrate 25 mg tablet 12.5 mg (1/2 x 25 mg) PO BID PRN 0 09/09/24 11/28/24 Rx afib #180 tabs timolol maleate 0.5 % eye drops 1 drp ophthalmic (eye) BID 5 03/15/25 History warfarin 5 mg tablet 7.5 mg PO SUTUTHSA 11/28/24 History warfarin 5 mg tablet 5 mg PO .COMPLEX #120 tabs 5 03/14/25 Rx ascorbic acid (vitamin C) 500 mg 1 g PO DAILY 03/15/25 Unknown Hist ory tablet (C-500) Allergy/AdvReac Type Severity Reaction Status [...] 14:41 Family History Father Myocardial infarction from [place] age 61 Heart disease Diabetes Sister Breast cancer Other intermediate (current) use of 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 Surgical History history [...] blood pressures at home. States she feels diffusely weak all her blood pressure been low. The lowest pressure was 89/66 per her blood pressure machine. Denies recent illness. Denies vomiting or diarrhea. Denies decreased p.o. intake. Denies chest pain palpitations. Denies shortness of breath cough or fever. Denies lower extremity edema. Notes compliance with medications. No bleeding diathesis noted. No recent falls or new neck or back pain noted REVIEW OF SYST (more content not included)... Normal [facility] Eosinophil percentageOrdered By: Johnie Kelsey on 03-15-2025 Eosinophils/100 WBC (Bld) 3.1 % 0-5 [facility] Erythrocyte distribution wid th ratioOrdered By: Johnie Kelsey on 03-15-2025 Erythrocyte distribution width (RBC) [Ratio] 13.5 % 11.6-14.6 [facility] Erythrocyte distribution wid th standard deviationOrdered By: Johnie Kelsey on 03-15-2025 Erythrocyte distribution width (RBC) [Ratio] 49.9 fl High 35.1-43.9 [facility] Glomerular filtration rate ( GFR) estimation/1.73 sq m using serum, plasma, or whole bOrdered By: Johnie Kelsey on 03-15-2025 GFR/1.73 sq M.predicted among non-blacks MDRD (S/P/Bld) [Vol rate/Area] 69 mL/min/{1.73_m2} >60 [facility] Comment on above: mL/min/1.73m2 CKD-EP I Creatinine Equation (2020) Hematocrit Auto (Bld) [Volum e fraction]Ordered By: Johnie Kelsey on 03-15-2025 Hematocrit (Bld) [Volume fraction] 35.1 % Low 37-47 [facility] Hemoglobin measurementOrdere d By: Johnie Kelsey on 03-15-2025 Hemoglobin (Bld) [Mass/Vol] 11.2 g/dL Low 12.0-15.0 [facility] Immature granulocytes/100 WB C Auto (Bld)Ordered By: Johnie Kelsey on 03-15-2025 Immature granulocytes/100 WBC (Bld) 0.400 % 0.0-0.9 [facility] Comment on above: IG% - Immature Granu locytes (promyelocytes, myelocytes and metamyelocytes) > 1% indicates that a LEFT SHIFT is Present. International normalized rat io (INR) calculationOrdered By: Johnie Kelsey on 03-15-2025 INR Coag (Bld) [Relative time] 2.4 {INR} [facility] Ketones Test strip Ql (U)Ord ered By: Johnie Kelsey on 03-15-2025 Ketones Ql (U) Negative Negative [facility] L501.4021on 03-15-2025 Trop T High Sen 9 ng/L Normal <=14 [facility] Comment on above: Performed By: #### L 9200.0000 #### [facility] [place], [address] Laboratory - Chemistry and C hemistry - challengeOrdered By: Johnie Kelsey on 03-15-2025 AST [Catalytic activity/Vol] 15 U/L <32 [facility] Lactic Acidon 03-15-2025 Lactate [Moles/Vol] mmol/L Normal 0.0-2.0 [facility] Comment on above: Order Comment: Y Performed By: #### L 503.6005 ####[facility] [address] [place], [address] Lactic acid measurementOrder ed By: Johnie Kelsey on 03-15-2025 Lactate [Moles/Vol] mmol/L 0.0-2.0 [facility] MCV (mean corpuscular volume ) determinationOrdered By: Johnie Kelsey on 03-15-2025 MCV (RBC) [Entitic vol] 98.9 fL 81-99 [facility] Mean corpuscular hemoglobin (MCH) determinationOrdered By: Johnie Kelsey on 03-15-2025 MCH (RBC) [Entitic mass] 31.5 pg 27.0-32.0 [facility] Mean corpuscular hemoglobin concentration (MCHC) determinationOrdered By: Johnie Kelsey on 03-15-2025 MCHC (RBC) [Mass/Vol] 31.9 g/dL Low 32-36 [facility] Mean platelet volume determi nationOrdered By: Johnie Kelsey on 03-15-2025 Platelet mean volume (Bld) [Entitic vol] 13.1 fL High 6.2-12.0 [facility] Microscopic analysis of urin e for red blood cells (RBC)Ordered By: Johnie Kelsey on 03-15-2025 Microscopic analysis of urine for red blood cells (RBC) 0-5 SEEN /hpf 0-5 [facility] Monocyte percentageOrdered B y: Johnie Kelsey on 03-15-2025 Monocytes/100 WBC (Bld) 13.1 % High 0-10 [facility] Mucus LM Ql (Urine sed)Order ed By: Johnie Kelsey on 03-15-2025 Mucus Ql (Urine sed) 0 SEEN /hpf [facility] Neutrophil percentageOrdered By: Johnie Kelsey on 03-15-2025 Neutrophils/100 WBC (Bld) 56.5 % 47-70 [facility] Nitrite Test strip Ql (U)Ord ered By: Johnie Kelsey on 03-15-2025 Nitrite Ql (U) Negative Negative [facility] Nucleated red blood cell per centageOrdered By: Johnie Kelsey on 03-15-2025 Nucleated RBC/100 WBC (Bld) [Ratio] 0 % 0-5 [facility] Platelet countOrdered By: Kelli Kelsey on 03-15-2025 Platelets (Bld) [#/Vol] 164 10*3/uL 150-450 [facility] Potassium measurement (mass/ volume)Ordered By: Johnie Kelsey on 03-15-2025 Potassium (Unsp spec) [Mass/Vol] 4.3 mmol/L 3.3-5.1 [facility] Protein Test strip Ql (U)Ord ered By: Johnie Kelsey on 03-15-2025 Protein Ql (U) Negative Negative [facility] Prothrombin Time w/INRon INR Coag (PPP) [Relative time] 2.4 {INR} Normal [facility] Comment on above: Performed By: #### L 9200.0000 #### [facility] [address] [place], [address] PT Coag (PPP) [Time] 26.7 s High 11.7-14.9 [facility] Comment on above: Performed By: #### L 9200.0000 #### [facility] [address] [place], [address] Prothrombin timeOrdered By: Johnie Kelsey on 03-15-2025 PT Coag (PPP) [Time] 26.7 s High 11.7-14.9 [facility] RBC Auto (Bld) [#/Vol]Ordere d By: Johnie Kelsey on 03-15-2025 RBC (Bld) [#/Vol] 3.55 10*6/uL Low 4.2-5.4 [facility] Serum creatinine measurement (mass/volume)Ordered By: Johnie Kelsey on 03-15-2025 Creatinine [Mass/Vol] 0.86 mg/dL 0.70-1.20 [facility] Serum globulin measurementOr dered By: Johnie Kelsey on 03-15-2025 Globulin (S) [Mass/Vol] 2.7 g/dL 2.2-4.2 [facility] Serum glucose measurement (m ass/volume)Ordered By: Johnie Kelsey on 03-15-2025 Glucose [Mass/Vol] 90 mg/dL 70-99 [facility] Serum or plasma alanine prieto otransferase (ALT) measurementOrdered By: Johnie Kelsey on 03-15-2025 ALT [Catalytic activity/Vol] 12 U/L <35 [facility] Serum or plasma albumin ayanna urement (mass/volume)Ordered By: Johnie Kelsey on 03-15-2025 Albumin [Mass/Vol] 3.9 g/dL 3.4-4.8 [facility] Serum or plasma albumin/glob ulin mass ratioOrdered By: Johnie Kelsey on 03-15-2025 Albumin/Globulin [Mass ratio] 1.5 {ratio} 0.9-2.4 [facility] Serum or plasma alkaline lashay sphatase measurementOrdered By: Johnie Kelsey on 03-15-2025 ALP [Catalytic activity/Vol] 76 U/L 35-104 [facility] Serum or plasma calcium ayanna urement (mass/volume)Ordered By: Johnie Kelsey on 03-15-2025 Calcium [Mass/Vol] 9.1 mg/dL 7.6-11.0 [facility] Serum or plasma urea nitroge n measurement (mass/volume)Ordered By: Johnie Kelsey on 03-15-2025 Urea nitrogen [Mass/Vol] 29 mg/dL High 4-19 [facility] Sodium levelOrdered By: Isaias Kelsey on 03-15-2025 Sodium [Moles/Vol] 138 mmol/L 133-145 [facility] Squamous epithelial cells de tection in urine sediment by light microscopyOrdered By: Johnie Kelsey on 03-15-2025 Epithelial cells.squamous LM Ql (Urine sed) 0-5 SEEN /hpf 5-10 [facility] Total proteinOrdered By: Vanessa Kelsey on 03-15-2025 Protein [Mass/Vol] 6.6 g/dL 5.9-8.4 [facility] Troponin T HS 2 HRon 07-23-2 025 Trop T High Sen 10 ng/L Normal <=14 [facility] Comment on above: Performed By: #### L 9200.0000 #### [facility] [address] [place], [address] Troponin T HS 4 HRon 025 Trop T High Sen Normal <=14 [facility] Comment on above: Result Comment: Canc elled via OM: MD Ordered Performed By: #### L 300.3900, L503.6620 #### [facility] [address] [place], [address] Troponin T.cardiac [Mass/vol ume] in Serum or Plasma by High sensitivity methodOrdered By: Johnie Kelsey on 03-15-2025 Troponin T.cardiac High sensitivity method [Mass/Vol] 10 ng/L <14 [facility] Troponin T.cardiac High sensitivity method [Mass/Vol] 9 ng/L <14 [facility] Urinalysis, Completeon 03-15 EPI,SQUAMOUS 0-5 SEEN Normal 5-10 [facility] Comment on above: Order Comment: CLEAN CATCH Performed By: #### L 400.0001 ####[facility] [address] [place], [address] RBC 0-5 SEEN Normal 0-5 [facility] Comment on above: Order Comment: CLEAN CATCH Performed By: #### L 400.0001 ####[facility] [address] [place], [address] WBC 0-5 SEEN Normal 0-5 [facility] Comment on above: Order Comment: CLEAN CATCH Performed By: #### L 400.0001 ####[facility] [address] [place], [address] BACTERIA 0 SEEN Normal None Seen [facility] Comment on above: Order Comment: CLEAN CATCH Performed By: #### L 400.0001 ####[facility] [address] [place], [address] Mucus Ql (Urine sed) 0 SEEN Normal [facility] Comment on above: Order Comment: CLEAN CATCH Performed By: #### L 400.0001 ####[facility] [address] [place], [place], [address] Urine clarityOrdered By: Vanessa Kelsey on 03-15-2025 Clarity (U) Clear Clear [facility] Urine color determinationOrd ered By: Johnie Kelsey on 03-15-2025 Color (U) Straw Yellow [facility] Urine glucose detectionOrder ed By: Johnie Kelsey on 03-15-2025 Glucose Ql (U) Normal mg/dl Normal [facility] Urine leukocyte esterase det ection by dipstickOrdered By: Johnie Kelsey on 03-15-2025 Leukocyte esterase Test strip Ql (U) Negative Negative [facility] Urine pHOrdered By: Johnie champagne on 03-15-2025 pH (U) 6.0 [pH] 5.0 - 8.0 [facility] Urine sediment bacteria coun t by microscopy (number/high power field)Ordered By: Johnie Kelsey on 03-15-2025 Bacteria LM.HPF (Urine sed) [#/Area] 0 /[HPF] None Seen [facility] Urine specific gravity measu rementOrdered By: Johnie Kelsey on 03-15-2025 Specific gravity (U) [Rel density] 1.010 1.002-1.03 0 [facility] Urine urobilinogen measureme ntOrdered By: Johnie Kelsey on 03-15-2025 Urobilinogen Ql (U) Normal mg/dl Normal [facility] White blood cell (WBC) count Ordered By: Johnie Kelsey on 03-15-2025 WBC (Bld) [#/Vol] 5.2 10*3/uL 4.4-11.0 [facility] White blood cell countOrdere d By: Johnie Kelsey on 03-15-2025 White blood cell count 0-5 SEEN /hpf 0-5 [facility] Protime w/INR Fingerstickon 03-09-2025 INR Coag (PPP) [Relative time] 2.8 {INR} Normal [facility] Comment on above: Result Comment: Crit ical Value > 4.0 Performed By: #### L 300.3900, L503.6620 #### [facility] [address] [place], [place], [address] Protime Coagsen 29.4 SEC High 11.7-14.9 [facility] Comment on above: Performed By: #### L 300.3900, L503.6620 #### [facility] [address] [place], [place], [address] International normalized rat io (INR) measurement by fingerstickOrdered By: Bart Rosales on 03-08-2025 INR Coag (BldC) [Relative time] 2.8 [facility] Comment on above: Critical Value > 4.0 Whole blood prothrombin time Ordered By: Bart Rosales on 03-08-2025 PT Coag (Bld) [Time] 29.4 s High 11.7-14.9 [facility] CADY BERUMEN ([id number]) 1945 F Date Time Provider Department 03/03/25 DAQUAN BUCHANAN PODPAULINE During your visit today, we recorded the following information about you: Zohra Bolton LPN 03/03/2025 9:15 AM Signed Daquan Buchanan to [facility] Podiatry Pool 03/03/25 8:00 AM Please call patient to inform her that her circulation appears normal MARINA Abdullahi Amelia, LPN 03/03/2025 9:15 AM Signed Called patient to provide results below. No response. Left VM. TOYA Manjarrez Kathleen, LPN 03/10/2025 2:18 PM Signed Patient notified of result. She would like to schedule her permanent avulsion. [phone] is her best contact number. TOYA Song Amelia, LPN 03/14/2025 1:47 PM Signed Patient scheduled on 04/17/2025 at 11. Zohra Bolton LPN Allergies As of Date: 03/03/2025 Noted Allergy Reaction FRAGRANCES 11/28/2014 3 - [...] Reviewed: 01/26/2025 Reviewed by: José Miguel Saldaña APRN.EARLY CHILDHOOD - Fully Assessed Prescriptions as of 03/14/2025 - baclofen 10 mg tablet Take 1 [...] by mouth daily except 7.5mg on ( [facility]) - Cholecalciferol, Vitamin D3, 50 mcg [...] white [place]ow. Problem List As Of Date 03/03/2025 Noted Resolved ALLERGIC RHINITIS NOS [J30.9] 06/19/2004 [...] 12/23/2021 Bilateral carotid artery stenosis [I65.23] 03/21/2024 Neck pain [M54.2] 02/09/2025 Chronic pain of both shoulders [M25.511, G89.29*02/09/2025 Encounter Status:Closed by ZOHRA BOLTON on 03/14/25 Normal [facility] PVR ANK PRESS CHRISTOPHER VAS LABon 03-02-2025 PVR ANK PRESS CHRISTOPHER VAS LAB Non-Invasive Vascular Laboratory [facility] Lower Extremity Arterial Physiology Study Bilateral/Complete Date [...] ankle: Normal at rest. Technologist: Maira Orellana RVT Ordering physician: DAQUAN BUCHANAN Interpreting physician: RHONDA Brown DO Final CC [employer] [facility] : [id number] See Link below for Image Normal [facility] THERAPY NTon 02-09-2025 THERAPY NT HNO ID: [id number] Author: EDGAR DAVE, PT Service: ? Author Type: Physical Therapist Type: Therapy (PT/OT/Speech/Resp) Filed: 02/09/2025 08:19 Note Text: Program_ID:[id number] Access Code: [email or web address] URL: [email or web address] Date: 02-09-2025 Prepared By: Edgar Dave Program [...] weekly - sets - 4-5 reps Normal [facility] CNTHERAPYon 02-08-2025 CNTHERAPY OT/PT/Speech Visit ( PTWS) -- JAMAICACADY Tricia ([id number]) 1945 F Date Time Provider Department 02/08/25 9:15 AM EDGAR DAVE PTWS Date Time Provider Department Center 02/08/2025 9:15 AM [id number], COL[facility] PTWS [place] Johnson Reason for Visit: PT Eval [747] PT Discharge [752] Primary Visit Diagnosis:Neck pain [M54.2] Other Visit [...] Reviewed: 01/26/2025 Reviewed by: José Miguel Saldaña APRN.EARLY CHILDHOOD - Fully Assessed Prescriptions as of 03/30/2025 - baclofen 10 mg tablet Take 1 [...] by mouth daily except 7.5mg on ( [facility]) - Cholecalciferol, Vitamin D3, 50 mcg (2,000 unit) cap Take 2 capsules by mouth once daily. - COQ10, UBIQUINOL, ORAL Take 30 mg by mouth. - latanoprost (XALATAN) 0.005 % ophthalmic solution Use 1 Drop in both eyes daily at bedtime. Meds Comments as of 05/10/2015: Does not take antivert, ibuprofen, aleve. Does take boswelia frankincense and white willow. Remote Operations Producer: Addendum Therapy (PT/OT/Speech/Resp) ID: [id number] 02/09/2025 8:19 AM Author: EDGAR DAVE Signed by EDGAR DAVE PT on 02/09/2025 at 8:19 AM * * * This document replaces document [id number] * * * Document text: Program_ID:[id number] Access Code: [email or web address] URL: [email or web address] Date: 02-09-2025 Prepared By: Edgar Dave Program [...] weekly - sets - 4-5 reps [facility] CNPN Telephone (INTMWS) -- CADY BERUMEN ([id number]) 1945 F Date Time Provider Department 02/01/25 JOSÉ MIGUEL SALDAÑA During your visit today, we recorded the following information about you: Nydia Encarnacion RN 02/01/2025 1:43 PM Signed Patient calling and is asking about lab results. Please review and advise, Nydia Encarnacion RN Patient states that Dr. Marinelli's [facility] office did not receive dermatology referral. [...] Reviewed: 01/26/2025 Reviewed by: José Miguel Saldaña APRN.EARLY CHILDHOOD - Fully Assessed Reason for Visit: Results [...] by mouth daily except 7.5mg on ( [facility]) - Cholecalciferol, Vitamin D3, 50 mcg [...] by JOSÉ MIGUEL SALDAÑA on 02/03/25 Normal [facility] 25-hydroxyvitamin D3 [Mass/V ol]on 01-27-2025 Interpretation and review of laboratory results Normal [facility] The reference range interval was based on an analysis of samples from healthy adults and may not pertain to children from 0-18 years old. [facility] Comprehensive metabolic 2000 panelon 01-27-2025 Albumin [Mass/Vol] 4.3 g/dL 3.9 - 4.9 g/dL [facility] ALP [Catalytic activity/Vol] 83 U/L 34 - 123 U/L [facility] ALT [Catalytic activity/Vol] 17 U/L 7 - 38 U/L [facility] Anion gap [Moles/Vol] 12 mmol/L 8 - 15 mmol/L [facility] AST [Catalytic activity/Vol] 21 U/L 13 - 35 U/L [facility] Bilirubin [Mass/Vol] 0.4 mg/dL 0.2 - 1 .3 mg/dL [facility] Calcium [Mass/Vol] 9.4 mg/dL 8.5 - 10. 2 mg/dL [facility] Chloride [Moles/Vol] 100 mmol/L 98 - 10 7 mmol/L [facility] CO2 [Moles/Vol] 24 mmol/L 22 - 30 mmol/L [facility] Creatinine [Mass/Vol] 0.76 mg/dL 0.58 - 0.96 mg/dL [facility] GFR/1.73 sq M.predicted among non-blacks MDRD (S/P/Bld) [Vol rate/Area] 80 mL/min/{1.73_m2} - PINF [facility] Comment on above: Estimated Glomerular Filtration Rate [...] 100 mg/dL High 74 - 99 mg/dL [facility] Comment on above: The [place] Diab[employer] s Association (ADA) provides guidance for [...] Standards of Medical Care in Diabetes 2016, [place] [employer]. Diabetes Care. 2016.39(Suppl 1). Interpretation and review of laboratory results Abnormal [facility] Potassium [Moles/Vol] 5.2 mmol/L High 3.7 - 5.1 mmol/L [facility] Protein [Mass/Vol] 7.2 g/dL 6.3 - 8.0 g/dL [facility] Sodium [Moles/Vol] 136 mmol/L 136 - 144 mmol/L [facility] Urea nitrogen [Mass/Vol] 24 mg/dL High 7 - 21 mg/dL [facility] No Panel Informationon 01-27 Interpretation and review of laboratory results Normal [facility] T3, FREEon 01-27-2025 Free T3 [Mass/Vol] 2.5 pg/mL 2.3 - 4.1 pg/mL [facility] T4 FREE/FREE THYROXINEon Free T4 [Mass/Vol] 1.1 ng/dL 0.9 - 1.7 ng/dL [facility] THYROID STIMULATING HORMONEo n 01-27-2025 TSH Qn 2.34 m[IU]/L [facility] VITAMIN D 25 HYDROXYon 01-27 25-hydroxyvitamin D3 [Mass/Vol] 38.4 ng/mL 31.0 - 80.0 ng/mL [facility] Comment on above: Classification of 25 [place] Vitamin D status: Deficiency/Insufficiency: < or = 30 ng/ml. Sufficiency/Optimal Levels: 31-80 ng/mL Toxicity: > 100 ng/mL. Test performed by chemiluminescent immunoassay. 25(OH)D3 SerPl-mCncon 2024 25-hydroxyvitamin D3 [Mass/Vol] 38.4 ng/mL Normal 31.0-80.0 [facility] Comment on above: Order Comment: Speci men Type: BLOOD SPECIMENOrdering Facility: [facility] Address: [address] [place] [address] Result Comment: Clas sification of 25 [place] Vitamin D status: Deficiency/Insufficiency: < or = 30 ng/ml. Sufficiency/Optimal Levels: 31-80 ng/mL Toxicity: > 100 ng/mL. Test performed by chemiluminescent immunoassay. Performed By: #### 1 989-3 ####[facility] LABCLIA [id number] [place] [address] [place] CBC W Auto Differential pane l (Bld)on 01-26-2025 Basophils (Bld) [#/Vol] 0.07 10*3/uL [facility] Basophils/100 WBC (Bld) 1.1 % [facility] Differential cell count method Nom (Bld) Auto [facility] Eosinophils (Bld) [#/Vol] 0.13 10*3/uL [facility] Eosinophils/100 WBC (Bld) 2.1 % [facility] Erythrocyte distribution width (RBC) [Ratio] 13.5 % 11.5 - 15.0 % [facility] Hematocrit (Bld) [Volume fraction] 39 % 36.0 - 46.0 % [facility] Hemoglobin (Bld) [Mass/Vol] 12.5 g/dL 11.5 - 15.5 g/dL [facility] Immature granulocytes (Bld) [#/Vol] [facility] Immature granulocytes/100 WBC (Bld) 0.3 % [facility] Interpretation and review of laboratory results Abnormal [facility] Lymphocytes (Bld) [#/Vol] 1.58 10*3/uL [facility] Lymphocytes/100 WBC (Bld) 25.5 % [facility] MCH (RBC) [Entitic mass] 32 pg 26.0 - 34.0 pg [facility] MCHC (RBC) [Mass/Vol] 32.1 g/dL 30.5 - 36.0 g/dL [facility] MCV (RBC) [Entitic vol] 99.7 fL 80.0 - 100.0 fL [facility] Monocytes (Bld) [#/Vol] 0.72 10*3/uL [facility] Monocytes/100 WBC (Bld) 11.6 % [facility] Neutrophils (Bld) [#/Vol] 3.67 10*3/uL [facility] Neutrophils/100 WBC (Bld) 59.4 % [facility] Nucleated RBC (Bld) [#/Vol] [facility] Nucleated RBC/100 WBC (Bld) [Ratio] 0 % /100 WBC [facility] Platelet mean volume (Bld) [Entitic vol] 13.4 fL High 9.0 - 12.7 fL [facility] Platelets (Bld) [#/Vol] 182 10*3/uL [facility] RBC (Bld) [#/Vol] 3.91 10*6/uL 3.90 - 5.20 m/uL [facility] WBC (Bld) [#/Vol] 6.19 10*3/uL [facility] Basophils (Bld) [#/Vol] 0.07 10*3/uL Normal <0.11 [facility] Comment on above: Order Comment: Speci men Type: BLOOD SPECIMENOrdering Facility: [facility] Address: [address] [place] [address] Performed By: #### 5 7021-8 ####[facility] LABCLIA [id number] [facility] [address] [place] Basophils/100 WBC (Bld) 1.1 % Normal [facility] Comment on above: Order Comment: Speci men Type: BLOOD SPECIMENOrdering Facility: [facility] Address: [address] [place] [address] Performed By: #### 5 7021-8 ####[facility] LABCLIA [id number] [place] [address] [place] Differential cell count method Nom (Bld) Auto Normal [facility] Comment on above: Order Comment: Speci men Type: BLOOD SPECIMENOrdering Facility: [facility] Address: [address] [place] [address] Performed By: #### 5 7021-8 ####[facility] LABCLIA [id number] [place] [address] [place] Eosinophils (Bld) [#/Vol] 0.13 10*3/uL Normal <0.46 [facility] Comment on above: Order Comment: Speci men Type: BLOOD SPECIMENOrdering Facility: [facility] Address: [address] [place] [address] Performed By: #### 5 7021-8 ####[facility] LABCLIA [id number] [place] [address] [place] Eosinophils/100 WBC (Bld) 2.1 % Normal [facility] Comment on above: Order Comment: Speci men Type: BLOOD SPECIMENOrdering Facility: [facility] Address: [address] [place] [address] Performed By: #### 5 7021-8 ####[facility] LABCLIA [id number] [address], [place] [address] [place] Erythrocyte distribution width (RBC) [Ratio] 13.5 % Normal 11.5-15.0 [facility] Comment on above: Order Comment: Speci men Type: BLOOD SPECIMENOrdering Facility: [facility] Address: [address] [place] [address] Performed By: #### 5 7021-8 ####[facility] LABCLIA [id number] [address], [place] [address] [place] Hematocrit (Bld) [Volume fraction] 39.0 % Normal 36.0-46.0 [facility] Comment on above: Order Comment: Speci men Type: BLOOD SPECIMENOrdering Facility: [facility] Address: [address] [place] [address] Performed By: #### 5 7021-8 ####[facility] LABIA [id number] [address], [place] [address] [place] Hemoglobin (Bld) [Mass/Vol] 12.5 g/dL Normal 11.5-15.5 [facility] Comment on above: Order Comment: Speci men Type: BLOOD SPECIMENOrdering Facility: [facility] Address: [address] [place] [address] Performed By: #### 5 7021-8 ####[facility] LABCLIA [id number] [address], [place] [address] [place] Immature granulocytes (Bld) [#/Vol] 10*3/uL Normal <0.10 [facility] Comment on above: Order Comment: Speci men Type: BLOOD SPECIMENOrdering Facility: [facility] Address: [address] [place] [address] Performed By: #### 5 7021-8 ####[facility] LABIA [id number] [address], [place] [address] [place] Immature granulocytes/100 WBC (Bld) 0.3 % Normal [facility] Comment on above: Order Comment: Speci men Type: BLOOD SPECIMENOrdering Facility: [facility] Address: [address] [place] [address] Performed By: #### 5 7021-8 ####[facility] LABCLIA [id number] [place] [address] [place] Lymphocytes (Bld) [#/Vol] 1.58 10*3/uL Normal 1.00-4.00 [facility] Comment on above: Order Comment: Speci men Type: BLOOD SPECIMENOrdering Facility: [facility] Address: [address] [place] [address] Performed By: #### 5 7021-8 ####[facility] LABCLIA [id number] [address] [place] Lymphocytes/100 WBC (Bld) 25.5 % Normal [facility] Comment on above: Order Comment: Speci men Type: BLOOD SPECIMENOrdering Facility: [facility] Address: [address] [place] [address] Performed By: #### 5 7021-8 ####[facility] LABCLIA [id number] [place] [address] [place] MCH (RBC) [Entitic mass] 32.0 pg Normal 26.0-34.0 [facility] Comment on above: Order Comment: Speci men Type: BLOOD SPECIMENOrdering Facility: [facility] Address: [address] [place] [address] Performed By: #### 5 7021-8 ####[facility] LABCLIA [id number] [place] [address] [place] MCHC (RBC) [Mass/Vol] 32.1 g/dL Normal 30.5-36.0 [facility] Comment on above: Order Comment: Speci men Type: BLOOD SPECIMENOrdering Facility: [facility] Address: [address] [place] [address] Performed By: #### 5 7021-8 ####[facility] LABCLIA [id number] [place] [address] [place] MCV (RBC) [Entitic vol] 99.7 fL Normal 80.0-100.0 [facility] Comment on above: Order Comment: Speci men Type: BLOOD SPECIMENOrdering Facility: [facility] Address: [address] [place] [address] Performed By: #### 5 7021-8 ####[facility] LABCLIA [id number] [place] [address] [place] Monocytes (Bld) [#/Vol] 0.72 10*3/uL Normal <0.87 [facility] Comment on above: Order Comment: Speci men Type: BLOOD SPECIMENOrdering Facility: [facility] Address: [address] [place] [address] Performed By: #### 5 7021-8 ####[facility] LABIA [id number] [place] [address] [place] Monocytes/100 WBC (Bld) 11.6 % Normal [facility] Comment on above: Order Comment: Speci men Type: BLOOD SPECIMENOrdering Facility: [facility] Address: [address] [place] [address] Performed By: #### 5 7021-8 ####[facility] LABCLIA [id number] [place] [id number] [place] Neutrophils (Bld) [#/Vol] 3.67 10*3/uL Normal 1.45-7.50 [facility] Comment on above: Order Comment: Speci men Type: BLOOD SPECIMENOrdering Facility: [facility] Address: [address] [place] [address] Performed By: #### 5 7021-8 ####[facility] LABCLIA [id number] [place] [address] [place] Neutrophils/100 WBC (Bld) 59.4 % Normal [facility] Comment on above: Order Comment: Speci men Type: BLOOD SPECIMENOrdering Facility: [facility] Address: [address] [place] [address] Performed By: #### 5 7021-8 ####[facility] LABCLIA [id number] [address], [place] [address] [place] Nucleated RBC (Bld) [#/Vol] 10*3/uL Normal <0.01 [facility] Comment on above: Order Comment: Speci men Type: BLOOD SPECIMENOrdering Facility: [facility] Address: [address] [place] [address] Performed By: #### 5 7021-8 ####[facility] LABCLIA [id number] [address], [place] [address] [place] Nucleated RBC/100 WBC (Bld) [Ratio] 0.0 /100 WBC Normal [facility] Comment on above: Order Comment: Speci men Type: BLOOD SPECIMENOrdering Facility: [facility] Address: [address] [place] [address] Performed By: #### 5 7021-8 ####[facility] LABCLIA [id number] [address], [facility] [place] Platelet mean volume (Bld) [Entitic vol] 13.4 fL High 9.0-12.7 [facility] Comment on above: Order Comment: Speci men Type: BLOOD SPECIMENOrdering Facility: [facility] Address: [address] [place] [address] Performed By: #### 5 7021-8 ####[facility] LABCLIA [id number] [address], [facility] [place] Platelets (Bld) [#/Vol] 182 10*3/uL Normal 150-400 [facility] Comment on above: Order Comment: Speci men Type: BLOOD SPECIMENOrdering Facility: [facility] Address: [address] [place] [address] Performed By: #### 5 7021-8 ####[facility] LABIA [id number] [place] [address] [place] RBC (Bld) [#/Vol] 3.91 10*6/uL Normal 3.90-5.20 [facility] Comment on above: Order Comment: Speci men Type: BLOOD SPECIMENOrdering Facility: [facility] Address: [address] [place] [address] Performed By: #### 5 7021-8 ####[facility] LABIA [id number] [place] [address] [place] WBC (Bld) [#/Vol] 6.19 10*3/uL Normal 3.70-11.00 [facility] Comment on above: Order Comment: Speci men Type: BLOOD SPECIMENOrdering Facility: [facility] Address: [address] [place] [address] Performed By: #### 5 7021-8 ####[facility] [id number] [place] [address] [place] CNOVon 01-26-2025 CNOV Office Visit (INTMWS ) -- CADY BERUMEN ([id number]) 1945 F Date Time Provider Department 01/26/25 11:20 AM JOSÉ MIGUEL SALDAÑA INTTELMA During your visit today, we recorded the following information about you: Pulse Blood pressure Weight 57/minute 112/68 76.2 kg José Miguel Saldaña APRN.CNP 01/27/2025 4:00 PM Signed CC: Patient presents [...] Diagnosis Date A-fib (HCC) February 2021 Asthma ([facility]) Atrial tachycardia ([facility]) 10/14/2018 BPPV (benign paroxysmal positional vertigo) 10/30/2014 [...] FLX DX W/COLLJ SPEC WHEN PFRMD 08/23/2019 WCMayra Florezbul repeat is not recommended NEUROPLASTY AND/TRANSPOS MEDIAN NRV CARPAL TUNNE 1990 Carpal tunnel decomp-bilateral PAST SURGICAL HISTORY OF 08-21-05 EXCISION CYST LEFT MIDDLE FINGER PAST SURGICAL HISTORY OF right foot surgery- mortons neuroma PAST SURGICAL HISTORY OF 2013 left foot vein ablation TONSILLECTOMY PRIMARY/SECONDARY AGE 12/> 89 ALLERGIES Fragrances; Benzodiazepines; Cats; Dust Mites; Grass [...] by mouth daily except 7.5mg on ( [facility]) Cholecalciferol, Vitamin D3, 50 mcg (2,000 [...] that also appear circular and have a stuck on feel Eyes: conjunctiva pink and moist, no icterus, sclera white, non-injected Neck: Thyroid normal size and symmetric without palpable nodules, Neck supple, No adenopathy, tenderness to bilateral lateralis muscles and traps. Lymph nodes: No cervical lymphadenopathy and No supraclavicular lymphadenopathy Lungs: Lungs clear t (more content not included)... Normal [facility] Cobalamin (Vitamin B12) [Mas s/Vol]on 01-26-2025 Interpretation and review of laboratory results Normal [facility] Comprehensive metabolic 2000 panelon 01-26-2025 Albumin [Mass/Vol] 4.3 g/dL Normal 3.9-4.9 [facility] Comment on above: Order Comment: Speci men Type: BLOOD SPECIMENOrdering Facility: [facility] Address: [address] [place] [address] Performed By: #### 3 051-0, 3016-3, 3024-7, 91682-1 ####[facility] [id number] [place] [address] [place] ALP [Catalytic activity/Vol] 83 U/L Normal 34-123 [facility] Comment on above: Order Comment: Speci men Type: BLOOD SPECIMENOrdering Facility: [facility] Address: [address] [place] [address] Performed By: #### 3 051-0, 3016-3, 3024-7, 82279-7 ####[facility] [id number] [place] [address] [place] ALT [Catalytic activity/Vol] 17 U/L Normal 7-38 [facility] Comment on above: Order Comment: Speci men Type: BLOOD SPECIMENOrdering Facility: [facility] Address: [address] [place] [address] Performed By: #### 3 051-0, 3016-3, 3024-7, 53256-4 ####[facility] [id number] [place] [id number] [place] Anion gap [Moles/Vol] 12 mmol/L Normal 8-15 [facility] Comment on above: Order Comment: Speci men Type: BLOOD SPECIMENOrdering Facility: [facility] Address: [address] [place] [address] Performed By: #### 3 051-0, 3016-3, 3024-7, 32331-5 ####[facility] LABIA [id number] [place] [address] [place] AST [Catalytic activity/Vol] 21 U/L Normal 13-35 [facility] Comment on above: Order Comment: Speci men Type: BLOOD SPECIMENOrdering Facility: [facility] Address: [address] [place] [address] Performed By: #### 3 051-0, 3016-3, 3024-7, 17410-0 ####[facility] LABIA [id number] [place] [address] [place] Bilirubin [Mass/Vol] 0.4 mg/dL Normal 0.2-1.3 [facility] Comment on above: Order Comment: Speci men Type: BLOOD SPECIMENOrdering Facility: [facility] Address: [address] [place] [address] Performed By: #### 3 051-0, 3016-3, 3024-7, 55905-6 ####[facility] [id number] [place] [address] [place] Calcium [Mass/Vol] 9.4 mg/dL Normal 8.5-10.2 [facility] Comment on above: Order Comment: Speci men Type: BLOOD SPECIMENOrdering Facility: [facility] Address: [address] [place] [address] Performed By: #### 3 051-0, 3016-3, 3024-7, 68244-1 ####[facility] [id number] [place] [address] [place] Chloride [Moles/Vol] 100 mmol/L Normal 98-107 [facility] Comment on above: Order Comment: Speci men Type: BLOOD SPECIMENOrdering Facility: [facility] Address: [address] [place] [address] Performed By: #### 3 051-0, 3016-3, 302-7, 88280-2 ####[facility] [id number] [place] [id number] [place] CO2 [Moles/Vol] 24 mmol/L Normal 22-30 [facility] Comment on above: Order Comment: Speci men Type: BLOOD SPECIMENOrdering Facility: [facility] Address: [address] [place] [address] Performed By: #### 3 051-0, 3016-3, 302-7, 37086-3 ####[facility] [id number] [place] [address] [place] Creatinine [Mass/Vol] 0.76 mg/dL Normal 0.58-0.96 [facility] Comment on above: Order Comment: Speci men Type: BLOOD SPECIMENOrdering Facility: [facility] Address: [address] [place] [address] Performed By: #### 3 051-0, 3016-3, 302-7, 54663-3 ####[facility] [id number] [place] [address] [place] Creatinine and Glomerular filtration rate.predicted panel (S/P/Bld) 80 mL/min/1.73m??? Normal >=60 [facility] Comment on above: Order Comment: Speci men Type: BLOOD SPECIMENOrdering Facility: [facility] Address: [address] [place] [address] Result Comment: Amanda mated Glomerular Filtration Rate [...] reflect actual GFR. Performed By: #### 3 051-0, 3016-3, 302-7, 89015-6 ####[facility] LABCLIA [id number] [place] [id number] [place] Glucose [Mass/Vol] 100 mg/dL High 74-99 [facility] Comment on above: Order Comment: Speci men Type: BLOOD SPECIMENOrdering Facility: [facility] Address: [address] [place] [address] Result Comment: The [place] [employer] (ADA) provides guidance for cutoff [...] Standards of Medical Care in Diabetes 2016, [place] [employer]. Diabetes Care. 2016.39(Suppl 1). Performed By: #### 3 051-0, 6-3, 3023-7, 01615-8 ####[facility] LABIA [id number] [place] [id number] [place] Potassium [Moles/Vol] 5.2 mmol/L High 3.7-5.1 [facility] Comment on above: Order Comment: Speci men Type: BLOOD SPECIMENOrdering Facility: [facility] Address: [address] [place] [address] Performed By: #### 3 051-0, 3016-3, 3023-7, 96951-9 ####[facility] LABIA [id number] [place] [id number] [place] Protein [Mass/Vol] 7.2 g/dL Normal 6.3-8.0 [facility] Comment on above: Order Comment: Speci men Type: BLOOD SPECIMENOrdering Facility: [facility] Address: [address] [place] [address] Performed By: #### 3 051-0, 3016-3, 302-7, 30073-4 ####[facility] LABCLIA [id number] [place] [address] [place] Sodium [Moles/Vol] 136 mmol/L Normal 136-144 [facility] Comment on above: Order Comment: Speci men Type: BLOOD SPECIMENOrdering Facility: [facility] Address: [address] [place] [address] Performed By: #### 3 051-0, 3016-3, 302-7, 45845-2 ####[facility] LABCLIA [id number] [place] [address] [place] Urea nitrogen [Mass/Vol] 24 mg/dL High 7-21 [facility] Comment on above: Order Comment: Speci men Type: BLOOD SPECIMENOrdering Facility: [facility] Address: [address] [place] [address] Performed By: #### 3 051-0, 3016-3, 302-7, 50729-2 ####[facility] LABCLIA [id number] [place] [address] [place] T3Free SerPl-mCncon 01-26-20 25 Free T3 [Mass/Vol] 2.5 pg/mL Normal 2.3-4.1 [facility] Comment on above: Order Comment: Speci men Type: BLOOD SPECIMENOrdering Facility: [facility] Address: [address] [place] [address] Performed By: #### 3 051-0, 3016-3, 302-7, 51658-6 ####[facility] LABCLIA [id number] [place] [address] [place] T4 Free SerPl-mCncon 05-2 025 Free T4 [Mass/Vol] 1.1 ng/dL Normal 0.9-1.7 [facility] Comment on above: Order Comment: Speci men Type: BLOOD SPECIMENOrdering Facility: [facility] Address: [address] [place], [place] [address] [address] Performed By: #### 3 051-0, 3016-3, 3024-7, 97366-5 ####[facility] LABCLIA [id number] [place] [address] [place] TSH SerPl-aCncon 01-26-2025 TSH Qn 2.340 m[IU]/L Normal 0.270-4.20 0 [facility] Comment on above: Order Comment: Speci men Type: BLOOD SPECIMENOrdering Facility: [facility] Address: [address] [place], [place] [address] [address] Performed By: #### 3 051-0, 3016-3, 3024-7, 65205-4 ####[facility] LABCLIA [id number] [address] [place] VITAMIN B12on 01-26-2025 Cobalamin (Vitamin B12) [Mass/Vol] 797 pg/mL 232 - 1245 pg/mL [facility] Vit B12 SerPl-mCncon 025 Cobalamin (Vitamin B12) [Mass/Vol] 797 pg/mL Normal 232-1245 [facility] Comment on above: Order Comment: Speci men Type: BLOOD SPECIMENOrdering Facility: [facility] Address: [address] [place], [place] [address] [address] Performed By: #### 2 132-9 ####[facility] LABCLIA [id number] [address] [place] CNOVon 01-17-2025 CNOV Office Visit (VASSWS ) -- CADY BERUMEN ([id number]) 1945 F Date Time Provider Department 01/17/25 2:30 PM ALEC ARTHUR During your visit today, we recorded the following information about you: Pulse Blood pressure 56/minute 126/55 Alec Arthur, DO 02/16/2025 4:49 PM Signed [facility] [place] DEPARTMENT OF VASCULAR SURGERY OUTPATIENT VISIT DATE January 17, 2025 OUTPATIENT VISIT TYPE ESTABLISHED SERVICE DATE: 01/17/2025 SERVICE TIME: 3:06 PM PRIMARY CARE PHYSICIAN: Moon Texieira MD HISTORY OF PRESENT ILLNESS: Ms. Berumen [...] FLX DX W/COLLJ SPEC WHEN PFRMD 08/23/2019 [facility] Cebul repeat is not recommended NEUROPLASTY AND/TRANSPOS [...] by mouth daily except 7.5mg on ( [facility]) Cholecalciferol, Vitamin D3, 50 mcg (2,000 [...] MOLD 0 (more content not included)... Normal [facility] CNCOon 01-05-2025 CNCO Letter Text Normal [facility] International normalized rat io (INR) measurement by fingerstickOrdered By: Bart Rosales on 01-05-2025 INR Coag (BldC) [Relative time] 3.1 [facility] Comment on above: Critical Value > 4.0 Protime w/INR Fingerstickon 01-05-2025 INR Coag (PPP) [Relative time] 3.1 {INR} Normal [facility] Comment on above: Result Comment: Crit ical Value > 4.0 Performed By: #### L 300.3900, L503.6620 #### [facility] [address] [place], [place], [address] Protime [place] 32.4 SEC High 11.7-14.9 [facility] Comment on above: Performed By: #### L 300.3900, L503.6620 #### [facility] [address] [place], [place], [address] Whole blood prothrombin time Ordered By: Bart Rosales on 01-05-2025 PT Coag (Bld) [Time] 32.4 s High 11.7-14.9 [facility] CNOVon 12-30-2024 CNOV Office Visit (CARDMN ) -- CADY BERUEMN ([id number]) 1945 F Date Time Provider Department 12/30/24 12:45 PM MARIA DE JESUS DESOUZAMN During your visit today, we recorded the following information about you: Pulse Blood pressure Weight Height 51/minute 141/57 75.8 kg 1.626 m Maria De Jesus Desouza APRN.EARLY CHILDHOOD 12/30/2024 1:58 PM Signed [facility] [place] Annette Velasquez Department of Cardiovascular Medicine SECTION OF CARDIAC PACING and ELECTROPHYSIOLOGY OUTPATIENT VISIT DATE December 30, 2024 OUTPATIENT VISIT TYPE ESTABLISHED PRIMARY CARE PHYSICIAN: Moon Teixeira [address] [place] [address] CHIEF COMPLAINT: No chief complaint on file. [...] FLX DX W/COLLJ SPEC WHEN PFRMD 08/23/2019 [facility]-RLonnie Cebul repeat is not recommended NEUROPLASTY AND/TRANSPOS [...] by mout (more content not included)... Normal [facility] ECG COMPLETEon 12-30-2024 ECG COMPLETE Ventricular Rate : 5 3 BPM Atrial Rate : 53 BPM P-R Interval : 194 ms QRS Duration : 90 ms Q-T Interval : 420 ms QTC Calculation(Bazett) : 394 ms Calculated P [place] : 68 degrees Calculated R [place] : -10 degrees Calculated T [place] : 64 degrees SINUS BRADYCARDIA OTHERWISE NORMAL ECG Confirmed by NERI WILDE MD ([id number]) on 01/26/2025 7:39:56 PM NAME : CADY BERUMEN PID : [id number] : 1945 Gender : Female Race : ORD : [id number] Procedure Date : Dec 30 2024 13:12:00 Edit Date : Jan 26 2025 19:39:59 Diagnosis: SINUS BRADYCARDIA OTHERWISE NORMAL ECG Confirmed by NERI WILDE MD ([id number]) on 01/26/2025 7:39:56 PM Test Reason : Location : [facility] : [facility] J14-07 Overread By : NERI WILDE MD Edited By : NERI WILDE MD Referred By : GUCCI EMERY Acquired by : RAJESH HEATON Normal [facility] Chrissy 12-02-2024 CNPN Telephone (CARDMN) -- CADY BERUMEN ([id number]) 1945 F Date Time Provider Department 12/02/24 MYNOR SHIRLEY During your visit today, we recorded the following information about you: CartwrightYarelyHonorio 12/02/2024 10:53 AM Signed December 02, 2024 Patient Contact Number: [phone] Patient last seen within the last year: [...] follow up to review any records. Lindy Acevedo, LEANDER Allergies As of Date: 12/02/2024 Noted Allergy [...] by mouth daily except 7.5mg on ( [facility]) - ALPHA LIPOIC ACID ORAL Take [...] Encounter Status:Closed by LINDY ACEVEDO on 12/06/24 [facility] Tele[facility] (CARDMN) -- CADY BERUMEN ([id number]) 1945 F Date Time Provider Department 11/30/24 MYNOR SHIRLEYOR During your visit today, we recorded the following information about you: Honorio Cartwright 2024 3:20 PM Signed Received faxed Holter report. Scanned in the system and the shared drive Honorio Rosas, Admin Allergies As of Date: 2024 Noted Allergy [...] Comments: nausea Date Reviewed: 10/26/2024 Reviewed by: Maog Cerrato LPN - Fully Assessed Reason for Visit: Received Outside Medical Records [[id number]] Cmt: Holter Prescriptions as of 2024 - [...] by mouth daily except 7.5mg on ( [facility]) - ALPHA LIPOIC ACID ORAL Take [...] 03/21/2024 Encounter Status:Closed by HONORIO CARTWRIGHT on 4/9/25 [facility] CNPN Telephone (CARDMN) -- JAMAICACADY Clarke ([id number]) 1945 F Date Time Provider Department 11/30/24 MYNOR SHIRLEY During your visit today, we recorded the following information about you: Honorio Cartwright 2024 3:21 PM Signed 2024 Patient Contact Number: [phone] Patient last seen within the last year: [...] the local office fax the results to [phone] Honorio Rosas, Admin Lindy Acevedo RN 2024 [...] by mouth daily except 7.5mg on ( [facility]) - ALPHA LIPOIC ACID ORAL Take [...] by E (more content not included)... Normal [facility] 12 Lead EKGon 11-28-2024 12 Lead EKG [facility] [address] [place] [address] 12 Lead EKG 11/28/24 1443 MR#: [id number] Acct: [id number] Name: CADY BERUMEN Rep #: [id number] : 1945 78 From: Dominguez Garsia MD Attending Dr: Status: DEP ER Ordering : Isreal Ohara DO Date: 11/28/24 Location: ED [...] Sinus bradycardia Otherwise normal ECG Confirmed by SUN BAILEY, DOMINGUEZ ([id number]), writer editor MEGAN GUTIERREZ ([id number]) on 11/29/2024 8:08:35 AM Referred By: Confirmed By: DOMINGUEZ GARSIA MD 11/29/24 0808 Date Dominguez Garsia MD CC: Dr. Moon Teixeira MD; Dr. Isreal Ohara DO Signed Normal [facility] Absolute lymphocyte countOrd ered By: Isreal Ohara on 11-28-2024 Lymphocytes Auto (Unsp spec) [#/Vol] 1.41 10*3/uL 0.83-4.51 [facility] Absolute neutrophil countOrd ered By: Isreal Ohara on 11-28-2024 Neutrophils (Bld) [#/Vol] 3.9 10*3/uL 2.0-7.7 [facility] Anion gap in Serum or Plasma Ordered By: Isreal Ohara on 11-28-2024 Anion gap [Moles/Vol] 10 mmol/L 5-15 [facility] Automated lymphocyte count a s percentage of total leukocytesOrdered By: Isreal Ohara on 11-28-2024 Lymphocytes/100 WBC Auto (Unsp spec) 23.0 % 19-41 [facility] BUN/creatinine ratioOrdered By: Isreal Ohara on 11-28-2024 Urea nitrogen/Creatinine [Mass ratio] 29.7 mg/mg High 10-20 [facility] Basic Metabolic Profile (BMP )on 11-28-2024 BUN/CRE 29.7 RATIO High 10-20 [facility] Comment on above: Performed By: #### L 501.4020 #### [facility] [address] [place], [address] Calcium [Mass/Vol] 9.3 mg/dL Normal 7.6-11.0 [facility] Comment on above: Performed By: #### L 501.4020 #### [facility] [address] [place], [address] Chloride [Moles/Vol] 105 mmol/L Normal 98-108 [facility] Comment on above: Performed By: #### L 501.4020 #### [facility] [address] [place], [address] CO2 [Moles/Vol] 25.3 mmol/L Normal 21.0-32.0 [facility] Comment on above: Performed By: #### L 501.4020 #### [facility] [address] [place], [address] Creatinine [Mass/Vol] 0.83 mg/dL Normal 0.70-1.20 [facility] Comment on above: Performed By: #### L 501.4020 #### [facility] [address] [place], [address] ECRCL 57.07 ml/min Normal 50-250 [facility] Comment on above: Performed By: #### L 501.4020 #### [facility] [address] [place], [address] GAP 10 Normal 5-15 [facility] Comment on above: Performed By: #### L 501.4020 #### [facility] [address] [place], [address] GFR/1.73 sq M.predicted among non-blacks MDRD (S/P/Bld) [Vol rate/Area] 72 mL/min/{1.73_m2} Normal >60 [facility] Comment on above: Result Comment: mL/m in/1.73m2 CKD-EPI Creatinine Equation (2020) Performed By: #### L 501.4020 #### [facility] [address] [place], [address] Glucose [Mass/Vol] 118 mg/dL High 70-99 [facility] Comment on above: Performed By: #### L 501.4020 #### [facility] [address] [place], [address] Potassium [Moles/Vol] 4.6 mmol/L Normal 3.3-5.1 [facility] Comment on above: Performed By: #### L 501.4020 #### [facility] [address] [place], [address] Sodium [Moles/Vol] 140 mmol/L Normal 133-145 [facility] Comment on above: Performed By: #### L 501.4020 #### [facility] [address] [place], [address] Urea nitrogen [Mass/Vol] 25 mg/dL High 4-19 [facility] Comment on above: Performed By: #### L 501.4020 #### [facility] [address] [place], [address] Basophil percentageOrdered B y: Isreal Soloehne on 11-28-2024 Basophils/100 WBC (Bld) 1.1 % High 0-1 [facility] CBC W/Diff, Automatedon Absolute Lymph 1.41 X10 3/uL Normal 0.83-4.51 [facility] Comment on above: Performed By: #### L 501.4020 #### [facility] [address] [place], [address] Absolute Neut 3.9 X10 3/uL Normal 2.0-7.7 [facility] Comment on above: Performed By: #### L 501.4020 #### [facility] [address] [place], [address] Basophils/100 WBC (Bld) 1.1 % High 0-1 [facility] Comment on above: Performed By: #### L 501.4020 #### [facility] [address] [place], [address] Eosinophils/100 WBC (Bld) 1.8 % Normal 0-5 [facility] Comment on above: Performed By: #### L 501.4020 #### [facility] [address] [place], [address] Erythrocyte distribution width (RBC) [Ratio] 13.7 % Normal 11.6-14.6 [facility] Comment on above: Performed By: #### L 501.4020 #### [facility] [address] [place], [address] Hematocrit (Bld) [Volume fraction] 37.5 % Normal 37-47 [facility] Comment on above: Performed By: #### L 501.4020 #### [facility] [address] [place], [address] Hemoglobin (Bld) [Mass/Vol] 12.0 g/dL Normal 12.0-15.0 [facility] Comment on above: Performed By: #### L 501.4020 #### [facility] [address] [place], [address] IG% 0.300 Normal 0.0-0.9 [facility] Comment on above: Result Comment: IG% - Immature Granulocytes (promyelocytes, myelocytes and metamyelocytes) > 1% indicates that a LEFT SHIFT is Present. Performed By: #### L 501.4020 #### [facility] [address] [place], [address] Lymphocytes/100 WBC (Bld) 23.0 % Normal 19-41 [facility] Comment on above: Performed By: #### L 501.4020 #### [facility] [address] [place], [address] MCH (RBC) [Entitic mass] 31.9 pg Normal 27.0-32.0 [facility] Comment on above: Performed By: #### L 501.4020 #### [facility] [address] [place], [address] MCHC (RBC) [Mass/Vol] 32.0 g/dL Normal 32-36 [facility] Comment on above: Performed By: #### L 501.4020 #### [facility] [address] [place], [address] MCV (RBC) [Entitic vol] 99.7 fL High 81-99 [facility] Comment on above: Performed By: #### L 501.4020 #### [facility] [address] [place], [address] Monocytes/100 WBC (Bld) 10.3 % High 0-10 [facility] Comment on above: Performed By: #### L 501.4020 #### [facility] [address] [place], [address] Neutrophils/100 WBC (Bld) 63.5 % Normal 47-70 [facility] Comment on above: Performed By: #### L 501.4020 #### [facility] [address] [place], [address] Nucleated RBC (Bld) [#/Vol] 0 10*3/uL Normal 0-5 [facility] Comment on above: Performed By: #### L 501.4020 #### [facility] [address] [place], [address] Platelet mean volume (Bld) [Entitic vol] 12.9 fL High 6.2-12.0 [facility] Comment on above: Performed By: #### L 501.4020 #### [facility] [address] [place], [address] Platelets (Bld) [#/Vol] 176 10*3/uL Normal 150-450 [facility] Comment on above: Performed By: #### L 501.4020 #### [facility] [address] [place], [address] RBC (Bld) [#/Vol] 3.76 10*6/uL Low 4.2-5.4 [facility] Comment on above: Performed By: #### L 501.4020 #### [facility] [address] [place], [address] RDW SD 50.2 fl High 35.1-43.9 [facility] Comment on above: Performed By: #### L 501.4020 #### [facility] [address] [place], [address] WBC (Bld) [#/Vol] 6.1 10*3/uL Normal 4.4-11.0 [facility] Comment on above: Performed By: #### L 501.4020 #### [facility] [address] [place], [address] Carbon dioxide, total [Moles /volume] in Central venous bloodOrdered By: Isreal Ohara on 11-28-2024 CO2 [Moles/Vol] 25.3 mmol/L 21.0-32.0 [facility] Chest 1 View (Portable)on Chest 1 View (Portable) [facility] Imaging Services [address] [place] [address] Chest 1 View (Portable) MR#: [id number] Acct: [id number] Name: CADY BERUMEN Rep #: [id number] : 1945 F 78 From: Anneliese Godoy MD PCP: Dr. Moon Teixeira MD Status: REG ER Study: Chest 1 View (Portable) Date of Exam: 11/28/24 Exam# [id number] Ordering Dr: Isreal Ohara DO PROCEDURE: CHEST [...] 2. Additional description as above. Reading Location: [facility] CC: Dr. Moon Teixeira MD; Dr. Isreal Ohara DO A And P Technician: Signed Normal [facility] Chloride assayOrdered By: Kartik Ohara on 11-28-2024 Chloride [Moles/Vol] 105 mmol/L 98-108 [facility] Emergency Department Summary on 11-28-2024 Emergency Department Summary [facility] Medical Records Department [address] [place] [address] Emergency Department Summary 11/28/24 MR#: [id number] Acct: [id number] Name: CADY BERUMEN Rep #: [id number] : 1945 78 From: Isreal Ohara DO [...] and has been under life stressors recently. 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 Normal [facility] Eosinophil percentageOrdered By: Isreal Ohara on 11-28-2024 Eosinophils/100 WBC (Bld) 1.8 % 0-5 [facility] Erythrocyte distribution wid th (RBC) [Ratio]Ordered By: Isreal Ohara on 11-28-2024 Erythrocyte distribution width (RBC) [Entitic vol] 50.2 fL High 35.1-43.9 [facility] Erythrocyte distribution wid th ratioOrdered By: Isreal Ohara on 11-28-2024 Erythrocyte distribution width (RBC) [Ratio] 13.7 % 11.6-14.6 [facility] Erythrocyte distribution wid th standard deviationOrdered By: Isreal Ohara on 11-28-2024 Erythrocyte distribution width (RBC) [Ratio] 50.2 fl High 35.1-43.9 [facility] Estimation of creatinine attila aranceOrdered By: Isreal Ohara on 11-28-2024 Estimated Creatinine Clearance Calc 57.07 ml/min 50-250 [facility] GFR/1.73 sq M.predicted celeste g non-blacks MDRD (S/P/Bld) [Vol rate/Area]Ordered By: Isreal Ohara on 11-28-2024 Estimated GFR (MDRD) Non-Af Amer 72 >60 [facility] Comment on above: mL/min/1.73m2 CKD-EP I Creatinine Equation (2020) Glomerular filtration rate ( GFR) estimation/1.73 sq m using serum, plasma, or whole bOrdered By: Isreal Ohara on 11-28-2024 GFR/1.73 sq M.predicted among non-blacks MDRD (S/P/Bld) [Vol rate/Area] 72 mL/min/{1.73_m2} >60 [facility] Comment on above: mL/min/1.73m2 CKD-EP I Creatinine Equation (2020) Hematocrit Auto (Bld) [Volum e fraction]Ordered By: Isreal Ohara on 11-28-2024 Hematocrit (Bld) [Volume fraction] 37.5 % 37-47 [facility] Hemoglobin measurementOrdere d By: Isreal Ohara on 11-28-2024 Hemoglobin (Bld) [Mass/Vol] 12.0 g/dL 12.0-15.0 [facility] Immature granulocytes/100 WB C Auto (Bld)Ordered By: Isreal Ohaar on 11-28-2024 Immature granulocytes/100 WBC (Bld) 0.300 % 0.0-0.9 [facility] Comment on above: IG% - Immature Granu locytes (promyelocytes, myelocytes and metamyelocytes) > 1% indicates that a LEFT SHIFT is Present. International normalized rat io (INR) calculationOrdered By: Isreal Ohara on 11-28-2024 INR Coag (Bld) [Relative time] 2.7 {INR} [facility] L501.4021on 11-28-2024 Trop T High Sen 9 ng/L Normal <=14 [facility] Comment on above: Performed By: #### L 9200.0000 #### [facility] [address] [facility] [place], [place], [address] L503.7505on 11-28-2024 Natriuretic peptide B (Bld) [Mass/Vol] 590 pg/mL Normal <=1800 [facility] Comment on above: Result Comment: Hear t Failure Unlikely: < 300 pg/mL Heart Failure Likely < 50 Years: > 450 pg/mL 50-75 Years: > 900 pg/mL >75 Years: > 1800 pg/mL Performed By: #### L 501.4020 #### [facility] [address] [place], [place], [address] Lymphocytes Auto (Unsp spec) [#/Vol]Ordered By: Isreal Ohara on 11-28-2024 Lymphocytes (Bld) [#/Vol] 1.41 10*3/uL 0.83-4.51 [facility] Lymphocytes/100 WBC Auto (Un sp spec)Ordered By: Isreal Ohara on 11-28-2024 Lymphocytes/100 WBC (Bld) 23.0 % 19-41 [facility] MCV (mean corpuscular volume ) determinationOrdered By: Isreal Ohara on 11-28-2024 MCV (RBC) [Entitic vol] 99.7 fL High 81-99 [facility] Mean corpuscular hemoglobin (MCH) determinationOrdered By: Isreal Ohara on 11-28-2024 MCH (RBC) [Entitic mass] 31.9 pg 27.0-32.0 [facility] Mean corpuscular hemoglobin concentration (MCHC) determinationOrdered By: Isreal Ohara on 11-28-2024 MCHC (RBC) [Mass/Vol] 32.0 g/dL 32-36 [facility] Mean platelet volume determi nationOrdered By: Isreal Ohara on 11-28-2024 Platelet mean volume (Bld) [Entitic vol] 12.9 fL High 6.2-12.0 [facility] Monocyte percentageOrdered B y: Isreal Ohara on 11-28-2024 Monocytes/100 WBC (Bld) 10.3 % High 0-10 [facility] Natriuretic peptide.B prohor sharon N-Terminal [Mass/Vol]Ordered By: Isreal Ohara on 11-28-2024 Natriuretic peptide B (Bld) [Mass/Vol] 590 pg/mL <1800 [facility] Comment on above: Heart Failure Unlike ly: < 300 pg/mLHeart Failure Likely< 50 Years: > 450 pg/mL50-75 Years: > 900 pg/mL>75 Years: > 1800 pg/mL Natriuretic peptide.B prohor sharon N-Terminal [Mass/volume] in Serum or PlasmaOrdered By: Isreal Ohara on 11-28-2024 Natriuretic peptide.B prohormone N-Terminal [Mass/Vol] 590 pg/mL <1800 [facility] Comment on above: Heart Failure Unlike ly: < 300 pg/mLHeart Failure Likely< 50 Years: > 450 pg/mL50-75 Years: > 900 pg/mL>75 Years: > 1800 pg/mL Neutrophil percentageOrdered By: Isreal Ohara on 11-28-2024 Neutrophils/100 WBC (Bld) 63.5 % 47-70 [facility] Nucleated red blood cell per centageOrdered By: Isreal Ohara on 11-28-2024 Nucleated RBC/100 WBC (Bld) [Ratio] 0 % 0-5 [facility] Platelet countOrdered By: Kartik Ohara on 11-28-2024 Platelets (Bld) [#/Vol] 176 10*3/uL 150-450 [facility] Potassium (Unsp spec) [Mass/ Vol]Ordered By: Isreal Ohara on 11-28-2024 Potassium [Moles/Vol] 4.6 mmol/L 3.3-5.1 [facility] Potassium measurement (mass/ volume)Ordered By: Isreal Ohara on 11-28-2024 Potassium (Unsp spec) [Mass/Vol] 4.6 mmol/L 3.3-5.1 [facility] Prothrombin Time w/INRon INR Coag (PPP) [Relative time] 2.7 {INR} Normal [facility] Comment on above: Performed By: #### L 501.4020 #### [facility] [address] [place], [place], [address] PT Coag (PPP) [Time] 29.6 s High 11.7-14.9 [facility] Comment on above: Performed By: #### L 501.4020 #### [facility] [address] [place], [address] Prothrombin timeOrdered By: Isreal Ohara on 11-28-2024 PT Coag (PPP) [Time] 29.6 s High 11.7-14.9 [facility] RBC Auto (Bld) [#/Vol]Ordere d By: Isreal Ohara on 11-28-2024 RBC (Bld) [#/Vol] 3.76 10*6/uL Low 4.2-5.4 [facility] Serum creatinine measurement (mass/volume)Ordered By: Isreal Ohara on 11-28-2024 Creatinine [Mass/Vol] 0.83 mg/dL 0.70-1.20 [facility] Serum glucose measurement (m ass/volume)Ordered By: Isreal Ohara on 11-28-2024 Glucose [Mass/Vol] 118 mg/dL High 70-99 [facility] Serum or plasma calcium ayanna urement (mass/volume)Ordered By: Isreal Ohara on 11-28-2024 Calcium [Mass/Vol] 9.3 mg/dL 7.6-11.0 [facility] Serum or plasma urea nitroge n measurement (mass/volume)Ordered By: Isreal Ohara on 11-28-2024 Urea nitrogen [Mass/Vol] 25 mg/dL High 4-19 [facility] Sodium levelOrdered By: Venkata Ohara on 11-28-2024 Sodium [Moles/Vol] 140 mmol/L 133-145 [facility] Troponin T.cardiac High sens itivity method [Mass/Vol]Ordered By: Isreal Ohara on 11-28-2024 Troponin T High Sensitivity 9 ng/L <14 [facility] Troponin T.cardiac [Mass/vol ume] in Serum or Plasma by High sensitivity methodOrdered By: Isreal Ohara on 11-28-2024 Troponin T.cardiac High sensitivity method [Mass/Vol] 9 ng/L <14 [facility] White blood cell (WBC) count Ordered By: Isreal Ohara on 11-28-2024 WBC (Bld) [#/Vol] 6.1 10*3/uL 4.4-11.0 [facility] Anion gap in Serum or Plasma Ordered By: Yinka Lovelace on 11-18-2024 Anion gap [Moles/Vol] 15 mmol/L 5-15 [facility] BUN/creatinine ratioOrdered By: Yinka Lovelace on 11-18-2024 Urea nitrogen/Creatinine [Mass ratio] 23.4 mg/mg High 10- [facility] Basic Metabolic Profile (BMP )on 11-18-2024 BUN/CRE 23.4 RATIO High - [facility] Comment on above: Performed By: #### L 300.3900, L503.6620 #### [facility] [address] [place], [address] Calcium [Mass/Vol] 9.2 mg/dL Normal 7.6-11.0 [facility] Comment on above: Performed By: #### L 300.3900, L503.6620 #### [facility] [address] [place], [address] Chloride [Moles/Vol] 103 mmol/L Normal 98-108 [facility] Comment on above: Performed By: #### L 300.3900, L503.6620 #### [facility] [address] [place], [address] CO2 [Moles/Vol] 21.6 mmol/L Normal 21.0-32.0 [facility] Comment on above: Performed By: #### L 300.3900, L503.6620 #### [facility] [address] [place], [address] Creatinine [Mass/Vol] 1.00 mg/dL Normal 0.70-1.20 [facility] Comment on above: Performed By: #### L 300.3900, L503.6620 #### [facility] [address] [place], [address] GAP 15 Normal 5-15 [facility] Comment on above: Performed By: #### L 300.3900, L503.6620 #### [facility] [address] [place], [address] GFR/1.73 sq M.predicted among non-blacks MDRD (S/P/Bld) [Vol rate/Area] 58 mL/min/{1.73_m2} Low >60 [facility] Comment on above: Result Comment: mL/m in/1.73m2 CKD-EPI Creatinine Equation (2020) Performed By: #### L 300.3900, L503.6620 #### [facility] [address] [place], [address] Glucose [Mass/Vol] 73 mg/dL Normal 70-99 [facility] Comment on above: Performed By: #### L 300.3900, L503.6620 #### [facility] [address] [place], [address] Potassium [Moles/Vol] 4.2 mmol/L Normal 3.3-5.1 [facility] Comment on above: Performed By: #### L 300.3900, L503.6620 #### [facility] [address] [place], [address] Sodium [Moles/Vol] 139 mmol/L Normal 133-145 [facility] Comment on above: Performed By: #### L 300.3900, L503.6620 #### [facility] [address] [place], [address] Urea nitrogen [Mass/Vol] 23 mg/dL High 4-19 [facility] Comment on above: Performed By: #### L 300.3900, L503.6620 #### [facility] [address] [place], [address] Carbon dioxide, total [Moles /volume] in Central venous bloodOrdered By: Yinka Lovelace on 11-18-2024 CO2 [Moles/Vol] 21.6 mmol/L 21.0-32.0 [facility] Chloride assayOrdered By: Sheila Lovelace on 11-18-2024 Chloride [Moles/Vol] 103 mmol/L 98-108 [facility] GFR/1.73 sq M.predicted celeste g non-blacks MDRD (S/P/Bld) [Vol rate/Area]Ordered By: Yinka Lovelace on 11-18-2024 Estimated GFR (MDRD) Non-Af Amer 58 Low >60 [facility] Comment on above: mL/min/1.73m2 CKD-EP I Creatinine Equation (2020) Glomerular filtration rate ( GFR) estimation/1.73 sq m using serum, plasma, or whole bOrdered By: Yinka Lovelace on 11-18-2024 GFR/1.73 sq M.predicted among non-blacks MDRD (S/P/Bld) [Vol rate/Area] 58 mL/min/{1.73_m2} Low >60 [facility] Comment on above: mL/min/1.73m2 CKD-EP I Creatinine Equation (2020) International normalized rat io (INR) calculationOrdered By: Yinka Lovelace on 11-18-2024 INR Coag (Bld) [Relative time] 2.7 {INR} [facility] Potassium (Unsp spec) [Mass/ Vol]Ordered By: Yinka Lovelace on 11-18-2024 Potassium [Moles/Vol] 4.2 mmol/L 3.3-5.1 [facility] Potassium measurement (mass/ volume)Ordered By: Yinka Lovelace on 11-18-2024 Potassium (Unsp spec) [Mass/Vol] 4.2 mmol/L 3.3-5.1 [facility] Prothrombin Time w/INRon INR Coag (PPP) [Relative time] 2.7 {INR} Normal [facility] Comment on above: Performed By: #### L 300.3900, L503.6620 #### [facility] [address] [place], [address] PT Coag (PPP) [Time] 29.3 s High 11.7-14.9 [facility] Comment on above: Performed By: #### L 300.3900, L503.6620 #### [facility] [address] [place], [address] Prothrombin timeOrdered By: Yinka Lovelace on 11-18-2024 PT Coag (PPP) [Time] 29.3 s High 11.7-14.9 [facility] Serum creatinine measurement (mass/volume)Ordered By: Yinka Lovelace on 11-18-2024 Creatinine [Mass/Vol] 1.00 mg/dL 0.70-1.20 [facility] Serum glucose measurement (m ass/volume)Ordered By: Yinka Lovelace on 11-18-2024 Glucose [Mass/Vol] 73 mg/dL 70-99 [facility] Serum or plasma calcium ayanna urement (mass/volume)Ordered By: Yinka Lovelace on 11-18-2024 Calcium [Mass/Vol] 9.2 mg/dL 7.6-11.0 [facility] Serum or plasma urea nitroge n measurement (mass/volume)Ordered By: Yinka Lovelace on 11-18-2024 Urea nitrogen [Mass/Vol] 23 mg/dL High 4-19 [facility] Sodium levelOrdered By: Jacques Lovelace on 11-18-2024 Sodium [Moles/Vol] 139 mmol/L 133-145 [facility] Echo Completeon 11-11-2024 Echo Complete [facility] [address] [place] [address] Echo Complete 11/11/24 1309 MR#: [id number] Acct: [id number] Name: CADY BERUMEN Rep #: [id number] : 1945 78 From: Dominguez Garsia MD Attending Dr: Dr. Yinka Lovelace MD Status: RE G CLI Ordering Dr: Yinka Lovelace MD Date: 11/11/24 Location: [facility] Sex: F C Admitted: Reason For Study [...] Dictated: 11/11/24 1309 Date Transcribed: 11/11/24 1506 A And P Technician: Signed Normal [facility] Echocardiogram study reportO rdered By: Dominguez Garsia on 11-11-2024 Study report [facility] Cardiovascular Services [address] [place] [address] Echo Complete 11/11/24 1309 MR#: [id number] Acct: [id number] Name: CADY BERUMEN Rep #:[id number] : 1945 78 From: Dominguez Vo Attending Dr: Dr. Yinka Loevlace MD Status: REG CLI Ordering Dr: Yinka Lovelace MD Date: 11/11/24 Location: [facility] Sex: F C Admitted: Reason For Study [...] By: Angie Crook RCS 11/11/24 1506 Date _ Dominguez Garsia MD CC: Dr. Moon Teixeira MD; Dr. Yinka Lovelace MD ~ Date Dictated: 11/11/24 1309 Date Transcribed: 11/11/24 150 A And P Technician: Signed [facility] Work Phone: INR Coag (BldC) [Relative ti me]Ordered By: Bart Rosales on 11-11-2024 INR Coag (Bld) [Relative time] 2.3 {INR} [facility] Comment on above: Critical Value > 4.0 PT Coag (Bld) [Time]Ordered By: Bart Rosales on 11-11-2024 Bedside Prothrombin Time 25.0 SEC High 11.7-14.9 [facility] Protime w/INR Fingerstickon 11-11-2024 INR Coag (PPP) [Relative time] 2.3 {INR} Normal [facility] Comment on above: Result Comment: Crit ical Value > 4.0 Performed By: #### L 300.3900, L503.6620 #### [facility] [address] [place], [address] Protime Coagsen 25.0 SEC High 11.7-14.9 [facility] Comment on above: Performed By: #### L 300.3900, L503.6620 #### [facility] [address] [place], [address] Whole blood prothrombin time Ordered By: Bart Rosales on 11-11-2024 PT Coag (Bld) [Time] 25.0 s High 11.7-14.9 [facility] MR Brain WO contraston 11-09 IMPRESSION: No acute intracranial abnormality, including no evidence of acute infarct. 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 No associated edema. Moderate presumed chronic microvascular ischemic changes in the white matter. A And P Technician: MARIE Transcribe Date/Time: Nov 09 2024 2:07P Dictated by : ALTON MACK MD This examination was interpreted and the report reviewed and electronically signed by: ALTON MACK MD on Nov 09 2024 2:12PM [facility] DIVISION OF RADIOLOGY * * *Final Report* * * DATE OF EXAM: Nov 09 2024 1:54PM [facility] 0294 - MRI BRAIN WO IVCON [...] tissues are unremarkable. DIVISION OF RADIOLOGY Provider, [facility] - 11/09/2024 * * *Final Report* * * DATE OF EXAM: Nov 09 2024 1:54PM [facility] 0294 - MRI BRAIN WO IVCON [...] microvascular ischemic changes in the white matter. A And P Technician: MARIE Transcribe Date/Time: Nov 09 2024 2:07P Dictated by : ALTON MACK MD This examination was interpreted and the report reviewed and electronically signed by: ALTON MACK MD on Nov 09 2024 2:12PM EST [facility] Radiology Study observation (narrative) [facility] MR Brain WO contrastOrdered By: [facility] Provider on 11-09-2024 [facility] MRI BRAIN WO IVCONon 025 MRI BRAIN WO IVCON * * *Final Report* * * DATE OF EXAM: Nov 09 2024 1:54PM [facility] 0294 - MRI BRAIN WO IVCON [...] supratentorial white matter as well as the taey, which is nonspecific but likely represents chronic [...] microvascular ischemic changes in the white matter. A And P Technician: [facility] Transcribe Date/Time: Nov 09 2024 2:07P Dictated by : ALTON MACK MD This examination was interpreted and the report reviewed and electronically signed by: ALTON MACK MD on Nov 09 2024 2:12PM EST [id number] Normal [facility] Inital Evaluation (1) - PTon 11-02-2024 Inital Evaluation (1) - PT [facility] Physical Therapy [facility] [address] [place] [address]. [address] [place] [address] / REHABILITATION SERVICES INITIAL EVALUATION MR#: [id number] Acct: [id number] Name: CADY BERUMEN Rep #: [id number] : 1945 78 From: Ousmane Montero DPT, OCS, CSCS Referring Dr.: Dr. Moon Teixeira MD Status: REG RCR Insurance: [employer] INSURANCE Patient's Visit Information Visit [...] Was drifting to L one time in [place] and thought it was time to have [...] to be FAXED BACK to us at [phone] for Medicare purposes. For Medicare only, by signing this I certify the plan of care. Please let me know if there are questions or concerns regarding this plan of care. Physician Signature: Date: 11/02/24 1553 CC: Dr. Moon Teixeira MD EBG Signed Normal [facility] Protime w/INR Fingerstickon 11-01-2024 INR Coag (PPP) [Relative time] 3.1 {INR} Normal [facility] Comment on above: Result Comment: Crit ical Value > 4.0 Performed By: #### L 501.4020 #### [facility] [address] [place], [place], [address] Protime Coagsen 32.5 SEC High 11.7-14.9 [facility] Comment on above: Performed By: #### L 501.4020 #### [facility] [address] [place], [place], [address] No Panel InformationOrdered By: Dominguez Garsia on 10-31-2024 INR International Normalized Ratio 3.1 High [facility] CNOVon 10-26-2024 CNOV Office Visit (ILYAIWR ) -- CADY BERUMEN ([id number]) 1945 F Date Time Provider Department 10/26/24 [...] patient and entered into questionnaires. Living with Darlin daughter right now. TOYA Mcintyre Chitra, MD 10/26/2024 3:09 PM Signed [facility] Initial Consult Cady Berumen [...] and call 911 Social History: Primary language: Citizen Of [place] Marital Status: Living situation: Home w/ Family Socially engaged? (participates in activities such as clubs, restoration, community center, sports, games, visiting friends/relatives, etc?): YES she is in a community that every one gets around each morning. Caregiver Belden and Stress Are your feeling overwhelmed? NO [...] FLX DX W/COLLJ SPEC WHEN PFRMD 08/23/2019 [facility] Cebul repeat is not recommended NEUROPLASTY AND/TRANSPOS MEDIAN NRV CARPAL TUNNE 1991 Carpal tunnel decomp-bilateral PAST SURGICAL HISTORY OF 08-21-05 EXCISION CYST LEFT MIDDLE FINGER PAST SURGICAL HISTORY OF right foot surgery- [facility]ons neuroma PAST SURGICAL HISTORY OF 2013 left foot vein ablatio (more content not included)... Normal [facility] CNPNon 10-26-2024 [facility] CADY BER[facility] ([id number]) 1945 F Date Time Provider Department 10/26/24 [...] - Fully Assessed Reason for Visit: Orders [431] Cmt: Physical therapy Prescriptions as of 10/26/2024 [...] by mouth daily except 7.5mg on ( [facility]) - ALPHA LIPOIC ACID ORAL Take [...] artery stenosis [I65.23] 03/21/2024 Encounter Status:Closed by MAGO CERRATO on 10/26/24 [facility] CNOVon 10-21-2024 CNOV Office Visit (INTMWS ) -- CADY BERUMEN ([id number]) 1945 F Date Time Provider Department 10/21/24 11:00 AM JOSÉ MIGUEL SALDAÑA INTMWS During your visit today, we recorded the following information about you: Pulse Respiration Blood pressure Weight 60/minute 16/minute 128/80 73.9 kg José Miguel Saldaña APRN.CNP 10/21/2024 12:36 PM Signed CC: Patient presents with: Balance: Balance concerns HPI Cady Berumen is a 78 year old female who presents today for hosptial follow-up. Facility: [facility] Date of visit: 09/26/24 Reason for [...] FLX DX W/COLLJ SPEC WHEN PFRMD [facility]/23/2019 [facility] is not recommended NEUROPLASTY AND/TRANSPOS [...] by mouth daily except 7.5mg on ( [facility]) (Patient taking differently: 7.5 mg daily) [...] Father Allergies (more content not included)... Normal [facility] UA DIP, URINE (POC)on 2024 BILIRUBIN UA (POCT) Negative Negative [facility] CLARITY UA (POCT) Clear [facility] COLOR UA (POCT) Yellow [facility] GLUCOSE UA (POCT) Negative Negative mg/dL [facility] Hemoglobin Ql (U) Trace-lysed Abnormal Negative [facility] Interpretation and review of laboratory results Abnormal [facility] KETONE UA (POCT) Negative Negative mg/dL [facility] LEUKOCYTES UA (POCT) Negative Negative [facility] NITRITE UA (POCT) Negative Negative [facility] PH UA (POCT) 6 4.5 - 8.0 [facility] Protein Ql (U) Negative Negative mg/dL [facility] SPECIFIC GRAVITY UA (POCT) <=1.005 Abnormal 1.005 - 1.030 [facility] UROBILINOGEN UA (POCT) 0.2 Normal E.U./dL [facility] Location:[address] POINT OF CARE [facility] Urinalysis complete panel (U )on 10-21-2024 Bacteria LM.HPF (Urine sed) [#/Area] Negative Normal Negative [facility] Comment on above: Order Comment: Speci men Type: URINE SPECIMENOrdering Facility: [facility] Address: [address] [place] [address] Performed By: #### 2 4356-8 ####[facility] [id number] [place] [address] [place] Bilirubin Ql (U) Negative Normal Negative [facility] Comment on above: Order Comment: Speci men Type: URINE SPECIMENOrdering Facility: [facility] Address: [address] [place] [address] Performed By: #### 2 4356-8 ####[facility] LABIA [id number] [place] [address] [place] Clarity (Unsp spec) Clear Normal Clear [facility] Comment on above: Order Comment: Speci men Type: URINE SPECIMENOrdering Facility: [facility] Address: [address] [place] [address] Performed By: #### 2 4356-8 ####[facility] LABCLIA [id number] [address], [place] [address] [place] Color (U) Yellow Normal Yellow [facility] Comment on above: Order Comment: Speci men Type: URINE SPECIMENOrdering Facility: [facility] Address: [address] [place] [address] Performed By: #### 2 4356-8 ####[facility] LABCLIA [id number] [address], [place] [address] [place] Epithelial cells LM.HPF (Urine sed) [#/Area] None Seen Normal [facility] Comment on above: Order Comment: Speci men Type: URINE SPECIMENOrdering Facility: [facility] Address: [address] [place] [address] Performed By: #### 2 4356-8 ####[facility] LABCLIA [id number] [address] [place] Glucose Test strip (U) [Mass/Vol] Negative Normal Negative [facility] Comment on above: Order Comment: Speci men Type: URINE SPECIMENOrdering Facility: [facility] Address: [address] [place] [address] Performed By: #### 2 4356-8 ####[facility] LABCLIA [id number] [place] [id number] [place] Hemoglobin Ql (U) Negative Normal Negative [facility] Comment on above: Order Comment: Speci men Type: URINE SPECIMENOrdering Facility: [facility] Address: [address] [place] [address] Performed By: #### 2 4356-8 ####[facility] LABCLIA [id number] [address], [facility] [place] Hyaline casts (Urine sed) [#/Area] 0 /[LPF] Normal 0 /LPF [facility] Comment on above: Order Comment: Speci men Type: URINE SPECIMENOrdering Facility: [facility] Address: [address] [place] [address] Performed By: #### 2 4356-8 ####[facility] LABCLIA [id number] [address] [place] [address] [place] Ketones Ql (U) Negative Normal Negative [facility] Comment on above: Order Comment: Speci men Type: URINE SPECIMENOrdering Facility: [facility] Address: [address] [place] [address] Performed By: #### 2 4356-8 ####[facility] LABCLIA [id number] [place] [address] [place] Leukocyte esterase Test strip Ql (U) Negative Normal Negative [facility] Comment on above: Order Comment: Speci men Type: URINE SPECIMENOrdering Facility: [facility] Address: [address] [place] [address] Performed By: #### 2 4356-8 ####[facility] LABCLIA [id number] [address], [place] [address] [place] Nitrite Ql (U) Negative Normal Negative [facility] Comment on above: Order Comment: Speci men Type: URINE SPECIMENOrdering Facility: [facility] Address: [address] [place] [address] Performed By: #### 2 4356-8 ####[facility] LABCLIA [id number] [address], [facility] [place] pH (U) 7.0 [pH] Normal <8.5 [facility] Comment on above: Order Comment: Speci men Type: URINE SPECIMENOrdering Facility: [facility] Address: [address] [place] [address] Performed By: #### 2 4356-8 ####[facility] LABCLIA [id number] [address], [facility] [place] Protein (U) [Mass/Vol] Negative Normal Negative [facility] Comment on above: Order Comment: Speci men Type: URINE SPECIMENOrdering Facility: [facility] Address: [address] [place] [address] Performed By: #### 2 4356-8 ####[facility] LABIA [id number] [place] [address] [place] RBC LM.HPF (Urine sed) [#/Area] 0-2 /HPF Normal 0-2 /HPF [facility] Comment on above: Order Comment: Speci men Type: URINE SPECIMENOrdering Facility: [facility] Address: [address] [place] [address] Performed By: #### 2 4356-8 ####[facility] [id number] [place] [address] [place] Specific gravity (U) [Rel density] 1.007 Normal 1.005-1.03 0 [facility] Comment on above: Order Comment: Speci men Type: URINE SPECIMENOrdering Facility: [facility] Address: [address] [place] [address] Performed By: #### 2 4356-8 ####[facility] LABIA [id number] [address] [place] Urobilinogen Ql (U) 0.2 EU/dL Normal 0.2-1.0 EU/dL [facility] Comment on above: Order Comment: Speci men Type: URINE SPECIMENOrdering Facility: [facility] Address: [address] [place] [address] Performed By: #### 2 4356-8 ####[facility] LABIA [id number] [place] [address] [place] WBC LM.HPF (Urine sed) [#/Area] 0-5 /HPF Normal 0-5 /HPF [facility] Comment on above: Order Comment: Speci men Type: URINE SPECIMENOrdering Facility: [facility] Address: [address] [place] [address] Performed By: #### 2 4356-8 ####[facility] LABOWEN [id number] [facility] [place] [id number] [place] 12 Lead EKG performed by [facility] on 10-13-2024 12 Lead EKG performed by [place] [address] [place] [address] 12 Lead EKG performed by [facility] 10/13/24 1136 MR#: [id number] Acct: [id number] Name: CADY BERUMEN Rep #: [id number] : 1945 78 From: Yinka Lovelace MD Attending Dr: Dr. Yinka Lovelace MD Status: DE P AMB Ordering Dr: Yinka Lovelace MD Date: 10/13/24 Location: [facility] Sex: F C Admitted: BMS/12 Lead EKG performed by [facility] ECG Report Interpretation Sinus Bradycardia - occasional PAC # PACs = 1.WITHIN NORMAL LIMITSElectronically signed on 10/13/2024 at 12:[address] Yinka Lovelace [employer] Version 8610 10/13/24 1225 Date Yinka Lovelace MD CC: Dr. Moon Teixeira MD Date Dictated: 10/13/241135 Date Transcribed: 10/13/241135 A And P Technician: Signed Normal [facility] BNP (brain natriuretic pepti de measurement)Ordered By: Yinka Lovelace on 10-13-2024 Natriuretic peptide B (Bld) [Mass/Vol] 146.7 pg/mL High 0-100 [facility] BNP,B-Type NATRIURETIC PEPTI John 10-13-2024 Natriuretic peptide B (Bld) [Mass/Vol] 146.7 pg/mL High 0-100 [facility] Comment on above: Performed By: #### L 300.3900, L503.6620 #### [facility] [address] [place], [address] Cardiology Visit Reporton Cardiology Visit Report [facility] [address] [place] [address] OFFICE VISIT Date of Service: 10/13/24 MR#: [id number] Acct: [id number] Name: CADY BERUMEN Rep #: [id number] : 1945 Provider: Dr. Yinka jiang MD Age/Sex: 78/F Location: [facility] [place] Status: Signed HPI HPI History of Present Illness Details: Patient is 78-year-old white female is being seen urgently in the office today. Patient carries a history of paroxysmal atrial fibrillation she was evaluated in the emergency department at [place] on September 26, 2024. She was in [...] 2 years that is monitored through the [facility] and Dr. Mynor Shirley. She is due [...] air Intake Visit Reasons: 1 Y FU Silk Weaver Required: No Accompanied by: Self Is patient [...] % eye drops 1 drp EACH EYE [facility] eye health 02/2110/13/24 History coenzyme Q10 [...] you fallen in the past year?: Yes [facility] Medical History (Reviewed 09/25 (more content not included)... Normal [facility] Basic Metabolic Profile (BMP )on 10-11-2024 BUN/CRE 27.2 RATIO High 10-20 [facility] Comment on above: Performed By: #### L 300.3900, L503.6620 #### [facility] [address] [place], [address] CA,Total 9.2 mg/dL Normal 8.5-10.1 [facility] Comment on above: Performed By: #### L 300.3900, L503.6620 #### [facility] [address] [place], [address] Chloride [Moles/Vol] 106 mmol/L Normal 98-107 [facility] Comment on above: Performed By: #### L 300.3900, L503.6620 #### [facility] [address] [place], [address] CO2 [Moles/Vol] 28.0 mmol/L Normal 21.0-32.0 [facility] Comment on above: Performed By: #### L 300.3900, L503.6620 #### [facility] [address] [place], [address] Creatinine [Mass/Vol] 0.74 mg/dL Normal 0.55-1.02 [facility] Comment on above: Result Comment: The validity of the calculated GFR GFRAA in patients over 70 years has not been determined. Clinical correlation is essential. Performed By: #### L 300.3900, L503.6620 #### [facility] [address] [place], [address] EST GFR - AA 98 mL/min Normal >60 [facility] Comment on above: Result Comment: Afri can Nicaraguan GFR Calc Performed By: #### L 300.3900, L503.6620 #### [facility] [address] [place], [address] GAP 5 Normal 5-15 [facility] Comment on above: Performed By: #### L 300.3900, L503.6620 #### [facility] [address] [place], [address] GFR/1.73 sq M.predicted among non-blacks MDRD (S/P/Bld) [Vol rate/Area] 81 mL/min/{1.73_m2} Normal >60 [facility] Comment on above: Result Comment: Non- GFR Calc Performed By: #### L 300.3900, L503.6620 #### [facility] [address] [place], [address] Glucose [Mass/Vol] 94 mg/dL Normal 74-106 [facility] Comment on above: Performed By: #### L 300.3900, L503.6620 #### [facility] [address] [place], [address] Potassium [Moles/Vol] 4.9 mmol/L Normal 3.5-5.1 [facility] Comment on above: Performed By: #### L 300.3900, L503.6620 #### [facility] [address] [place], [address] Sodium [Moles/Vol] 139 mmol/L Normal 136-145 [facility] Comment on above: Performed By: #### L 300.3900, L503.6620 #### [facility] [address] [place], [address] Urea nitrogen [Mass/Vol] 20 mg/dL High 7-18 [facility] Comment on above: Performed By: #### L 300.3900, L503.6620 #### [facility] [address] [place], [address] Blood urea nitrogen (BUN)/cr eatinine ratioOrdered By: Yinka Lovelace on 10-11-2024 Urea nitrogen/Creatinine [Mass ratio] 27.2 mg/mg High 10-20 [facility] Carbon dioxide measurementOr dered By: Yinka Lovelace on 10-11-2024 CO2 [Moles/Vol] 28.0 mmol/L 21.0-32.0 [facility] Chloride measurementOrdered By: Yinka Lovelace on 10-11-2024 Chloride [Moles/Vol] 106 mmol/L 98-107 [facility] Estimated glomerular filtrat ion rate (GFR) AmericanOrdered By: Yinka Lovelace on 10-11-2024 Estimated GFR (MDRD) Amer 98 mL/min >60 [facility] Comment on above: GFR Calc Glomerular filtration rate ( GFR) estimationOrdered By: Yinka Lovelace on 10-11-2024 Estimated GFR (MDRD) Non-Af Amer 81 mL/min >60 [facility] Comment on above: Non- GFR Calc GFR/1.73 sq M.predicted among non-blacks MDRD (S/P/Bld) [Vol rate/Area] 81 mL/min/{1.73_m2} >60 [facility] Comment on above: Non- GFR Calc Glucose measurementOrdered B y: Yinka Lovelace on 10-11-2024 Glucose [Mass/Vol] 94 mg/dL 74-106 [facility] International normalized rat io (INR) calculationOrdered By: Yinka Lovelace on 10-11-2024 INR Coag (Bld) [Relative time] 2.9 {INR} [facility] Potassium measurementOrdered By: Yinka Lovelace on 10-11-2024 Potassium [Moles/Vol] 4.9 mmol/L 3.5-5.1 [facility] Prothrombin Time w/INRon INR Coag (PPP) [Relative time] 2.9 {INR} Normal [facility] Comment on above: Performed By: #### L 300.3900, L503.6620 #### [facility] [address] [place], [address] PT Coag (PPP) [Time] 31.2 s High 11.7-14.9 [facility] Comment on above: Performed By: #### L 300.3900, L503.6620 #### [facility] [address] [place], [address] Prothrombin timeOrdered By: Yinka Lovelace on 10-11-2024 PT Coag (PPP) [Time] 31.2 s High 11.7-14.9 [facility] Serum anion gap measurementO rdered By: Yinka Lovelace on 10-11-2024 Anion gap [Moles/Vol] 5 mmol/L 5-15 [facility] Serum or plasma calcium ayanna urement (mass/volume)Ordered By: Yinka Lovelace on 10-11-2024 Calcium [Mass/Vol] 9.2 mg/dL 8.5-10.1 [facility] Serum or plasma creatinine m easurement (mass/volume)Ordered By: Yinka Lovelace on 10-11-2024 Creatinine [Mass/Vol] 0.74 mg/dL 0.55-1.02 [facility] Comment on above: The validity of the calculated GFR & GFRAA in patients over 70 years has not been determined. Clinical correlation is essential. Serum or plasma thyroid stim ulating hormone (TSH) measurement (units/volume)Ordered By: Yinka Lovelace on 10-11-2024 TSH Qn 2.520 uIU/mL 0.358-3.74 0 [facility] Serum or plasma urea nitroge n measurement (mass/volume)Ordered By: Yinka Lovelace on 10-11-2024 Urea nitrogen [Mass/Vol] 20 mg/dL High 03-10 [facility] Sodium levelOrdered By: Jacques Lovelace on 10-11-2024 Sodium [Moles/Vol] 139 mmol/L 136-145 [facility] TSH QnOrdered By: Yinka anroldapolinar on 10-11-2024 Thyroid Stimulating Hormone (TSH) 2.520 uIU/mL 0.358-3.74 0 [facility] Thyroid Stim Hormone (TSH)on 10-11-2024 TSH 2.520 uIU/mL Normal 0.358-3.74 0 [facility] Comment on above: Performed By: #### L 300.3900, L503.6620 #### [facility] [address] [place], [address] Basic Metabolic Profile (BMP )on 10-07-2024 BUN Normal 03-10 [facility] Comment on above: Order Comment: Comme nts: TSH elevated in March, atrial flutterTSH elevated in March, atrial flutter Result Comment: RENÉE ENT LEFT BEFORE GETTING DRAW DONE Performed By: #### L 501.4020 #### [facility] [address] [place], [address] BUN/CRE Normal 10-20 [facility] Comment on above: Order Comment: Comme nts: TSH elevated in March, atrial flutterTSH elevated in March, atrial flutter Result Comment: ERNÉE ENT LEFT BEFORE GETTING DRAW DONE Performed By: #### L 501.4020 #### [facility] [address] [place], [address] CA,Total Normal 8.5-10.1 [facility] Comment on above: Order Comment: Comme nts: TSH elevated in March, atrial flutterTSH elevated in March, atrial flutter Result Comment: RENÉE ENT LEFT BEFORE GETTING DRAW DONE Performed By: #### L 501.4020 #### [facility] [address] [place], [address] CL Normal 98-107 [facility] Comment on above: Order Comment: Comme nts: TSH elevated in March, atrial flutterTSH elevated in March, atrial flutter Result Comment: RENÉE ENT LEFT BEFORE GETTING DRAW DONE Performed By: #### L 501.4020 #### [facility] [address] [place], [address] CO2 Normal 21.0-32.0 [facility] Comment on above: Order Comment: Comme nts: TSH elevated in March, atrial flutterTSH elevated in March, atrial flutter Result Comment: RENÉE ENT LEFT BEFORE GETTING DRAW DONE Performed By: #### L 501.4020 #### [facility] [address] [place], [address] CREAT,SERUM Normal 0.55-1.02 [facility] Comment on above: Order Comment: Comme nts: TSH elevated in March, atrial flutterTSH elevated in March, atrial flutter Result Comment: RENÉE ENT LEFT BEFORE GETTING DRAW DONE Performed By: #### L 501.4020 #### [facility] [address] [place], [address] EST GFR Normal >60 [facility] Comment on above: Order Comment: Comme nts: TSH elevated in March, atrial flutterTSH elevated in March, atrial flutter Result Comment: RENÉE ENT LEFT BEFORE GETTING DRAW DONE Performed By: #### L 501.4020 #### [facility] [address] [place], [address] EST GFR - AA Normal >60 [facility] Comment on above: Order Comment: Comme nts: TSH elevated in March, atrial flutterTSH elevated in March, atrial flutter Result Comment: RENÉE ENT LEFT BEFORE GETTING DRAW DONE Performed By: #### L 501.4020 #### [facility] [address] [place], [address] GAP Normal 5-15 [facility] Comment on above: Order Comment: Comme nts: TSH elevated in March, atrial flutterTSH elevated in March, atrial flutter Result Comment: RENÉE ENT LEFT BEFORE GETTING DRAW DONE Performed By: #### L 501.4020 #### [facility] [address] [place], [address] GLU Normal 74-106 [facility] Comment on above: Order Comment: Comme nts: TSH elevated in March, atrial flutterTSH elevated in March, atrial flutter Result Comment: RENÉE ENT LEFT BEFORE GETTING DRAW DONE Performed By: #### L 501.4020 #### [facility] [address] [place], [address] Potassium Normal 3.5-5.1 [facility] Comment on above: Order Comment: Comme nts: TSH elevated in March, atrial flutterTSH elevated in March, atrial flutter Result Comment: RENÉE ENT LEFT BEFORE GETTING DRAW DONE Performed By: #### L 501.4020 #### [facility] [address] [place], [address] Basic Metabolic Profile (BMP) Normal 136-145 [facility] Comment on above: Order Comment: Comme nts: TSH elevated in March, atrial flutterTSH elevated in March, atrial flutter Result Comment: RENÉE ENT LEFT BEFORE GETTING DRAW DONE Performed By: #### L 501.4020 #### [facility] [address] [place], [address] CBC W/Diff, Automatedon 09-24 Absolute Neut Normal 2.0-7.7 [facility] Comment on above: Result Comment: PT L EFT BEFORE GETTING DRAW DONE Performed By: #### L 501.4020 #### [facility] [address] [place], [address] HCT Normal 37-47 [facility] Comment on above: Result Comment: PT L EFT BEFORE GETTING DRAW DONE Performed By: #### L 501.4020 #### [facility] [address] [place], [address] HGB Normal 12.0-15.0 [facility] Comment on above: Result Comment: PT L EFT BEFORE GETTING DRAW DONE Performed By: #### L 501.4020 #### [facility] [address] [place], [address] MCH Normal 27.0-32.0 [facility] Comment on above: Result Comment: PT L EFT BEFORE GETTING DRAW DONE Performed By: #### L 501.4020 #### [facility] [address] [place], [address] MCHC Normal 32-36 [facility] Comment on above: Result Comment: PT L EFT BEFORE GETTING DRAW DONE Performed By: #### L 501.4020 #### [facility] [address] [place], [address] MCV Normal 81-99 [facility] Comment on above: Result Comment: PT L EFT BEFORE GETTING DRAW DONE Performed By: #### L 501.4020 #### [facility] [address] [place], [address] NEUT% Normal 47-70 [facility] Comment on above: Result Comment: PT L EFT BEFORE GETTING DRAW DONE Performed By: #### L 501.4020 #### [facility] [address] [place], [address] PLT Normal 150-450 [facility] Comment on above: Result Comment: PT L EFT BEFORE GETTING DRAW DONE Performed By: #### L 501.4020 #### [facility] [address] [place], [address] RBC Normal 4.2-5.4 [facility] Comment on above: Result Comment: PT L EFT BEFORE GETTING DRAW DONE Performed By: #### L 501.4020 #### [facility] [address] [place], [address] RDW CV Normal 11.6-14.6 [facility] Comment on above: Result Comment: PT L EFT BEFORE GETTING DRAW DONE Performed By: #### L 501.4020 #### [facility] [address] [place], [address] RDW SD Normal 35.1-43.9 [facility] Comment on above: Result Comment: PT L EFT BEFORE GETTING DRAW DONE Performed By: #### L 501.4020 #### [facility] [address] [place], [address] WBC Normal 4.4-11.0 [facility] Comment on above: Result Comment: PT L EFT BEFORE GETTING DRAW DONE Performed By: #### L 501.4020 #### [facility] [address] [place], [address] Prothrombin Time w/INRon INR Normal [facility] Comment on above: Order Comment: Comme nts: Do this along with BMP and TSH Result Comment: RENÉE ENT LEFT BEFORE GETTING DRAW DONE Performed By: #### L 501.4020 #### [facility] [address] [place], [address] PROTIME Normal 11.7-14.9 [facility] Comment on above: Order Comment: Comme nts: Do this along with BMP and TSH Result Comment: RENÉE ENT LEFT BEFORE GETTING DRAW DONE Performed By: #### L 501.4020 #### [facility] [address] [place], [address] 12 Lead EKGon 09-26-2024 12 Lead EKG [facility] [address] [place] [address] 12 Lead EKG 09/26/24 1309 MR#: [id number] Acct: [id number] Name: CADY BERUMEN Rep #: [id number] : 1945 78 From: Dominguez Garsia MD [...] superior axis deviation Abnormal ECG Confirmed by DOMINGUEZ GARSIA MD ([id number]), writer editor MEGAN GUTIERREZ ([id number]) on 09/27/2024 8:49:56 AM Referred By: KETAN Confirmed By: DOMINGUEZ GARSIA MD 09/27/24 0850 Date Dominguez Garsia MD CC: LES Wilkes; Dr. Moon Teixeira MD; Dr. Pedro Gusman MD Signed [facility] 12 Lead EKG [facility] [address] [place] [address] 12 Lead EKG 09/26/24 1509 MR#: [id number] Acct: [id number] Name: CADY BERUMEN Rep #: [id number] : 1945 78 From: Dominguez Garsia MD [...] atrial complexes Otherwise normal ECG Confirmed by DOMINGUEZ GARSIA MD ([id number]), MEGAN Pedro ([id number]) on 09/27/2024 8:47:53 AM Referred By: KETAN Confirmed By: DOMINGUEZ GARSIA MD 09/27/24 0847 Date Dominguez Garsia MD CC: GELY-Triny Wilkes; Dr. Moon Teixeira MD; Dr. Pedro Gusman MD Signed Normal [facility] Absolute lymphocyte countOrd ered By: Angel Wilkes on 09-26-2024 Lymphocytes Auto (Unsp spec) [#/Vol] 1.51 10*3/uL 0.83-4.51 [facility] Absolute neutrophil countOrd ered By: Angel Wilkes on 09-26-2024 Neutrophils (Bld) [#/Vol] 4.5 10*3/uL 2.0-7.7 [facility] Automated lymphocyte count a s percentage of total leukocytesOrdered By: Angel Wilkes on 09-26-2024 Lymphocytes/100 WBC Auto (Unsp spec) 21.7 % 19-41 [facility] BNP (brain natriuretic pepti de measurement)Ordered By: Angel Wilkes on 09-26-2024 Natriuretic peptide B (Bld) [Mass/Vol] 240.3 pg/mL High 0-100 [facility] BNP,B-Type NATRIURETIC PEPTI John 09-26-2024 Natriuretic peptide B (Bld) [Mass/Vol] 240.3 pg/mL High 0-100 [facility] Comment on above: Performed By: #### L 300.3900, L503.6620 #### [facility] [address] [place], [address] Basic Metabolic Profile (BMP )on 09-26-2024 BUN/CRE 29.0 RATIO High 10-20 [facility] Comment on above: Performed By: #### L 100.0100, L501.5425, L500.2500 #### [facility] [address] [place], [address] CA,Total 9.1 mg/dL Normal 8.5-10.1 [facility] Comment on above: Performed By: #### L 100.0100, L501.5425, L500.2500 #### [facility] [address] [place], [address] Chloride [Moles/Vol] 109 mmol/L High 98-107 [facility] Comment on above: Performed By: #### L 100.0100, L501.5425, L500.2500 #### [facility] [address] [place], [address] CO2 [Moles/Vol] 25.0 mmol/L Normal 21.0-32.0 [facility] Comment on above: Performed By: #### L 100.0100, L501.5425, L500.2500 #### [facility] [address] [place], [address] Creatinine [Mass/Vol] 0.86 mg/dL Normal 0.55-1.02 [facility] Comment on above: Result Comment: The validity of the calculated GFR GFRAA in patients over 70 years has not been determined. Clinical correlation is essential. Performed By: #### L 100.0100, L501.5425, L500.2500 #### [facility] [address] [place], [address] ECRCL 56.04 ml/min Normal [facility] Comment on above: Performed By: #### L 100.0100, L501.5425, L500.2500 #### [facility] [address] [place], [address] EST GFR - AA 82 mL/min Normal >60 [facility] Comment on above: Result Comment: Afri can Nicaraguan GFR Calc Performed By: #### L 100.0100, L501.5425, L500.2500 #### [facility] [address] [place], [address] GAP 6 Normal 5-15 [facility] Comment on above: Performed By: #### L 100.0100, L501.5425, L500.2500 #### [facility] [address] [place], [address] GFR/1.73 sq M.predicted among non-blacks MDRD (S/P/Bld) [Vol rate/Area] 68 mL/min/{1.73_m2} Normal >60 [facility] Comment on above: Result Comment: Non- GFR Calc Performed By: #### L 100.0100, L501.5425, L500.2500 #### [facility] [address] [place], [address] Glucose [Mass/Vol] 106 mg/dL Normal 74-106 [facility] Comment on above: Result Comment: Fast ing Glucose result from 100 to 125 mg/dL suggests IMPAIRED HOMEOSTASIS per A.D.A. criteria. Performed By: #### L 100.0100, L501.5425, L500.2500 #### [facility] [address] [place], [address] Potassium [Moles/Vol] 4.5 mmol/L Normal 3.5-5.1 [facility] Comment on above: Performed By: #### L 100.0100, L501.5425, L500.2500 #### [facility] [address] [place], [address] Sodium [Moles/Vol] 140 mmol/L Normal 136-145 [facility] Comment on above: Performed By: #### L 100.0100, L501.5425, L500.2500 #### [facility] [address] [place], [address] Urea nitrogen [Mass/Vol] 25 mg/dL High 7-18 [facility] Comment on above: Performed By: #### L 100.0100, L501.5425, L500.2500 #### [facility] [address] [place], [address] Basophil percentageOrdered B y: Angel Wilkes on 09-26-2024 Basophils/100 WBC (Bld) 1.1 % High 0-1 [facility] Blood urea nitrogen (BUN)/cr eatinine ratioOrdered By: Angel Wilkes on 09-26-2024 Urea nitrogen/Creatinine [Mass ratio] 29.0 mg/mg High 10-20 [facility] CBC W/Diff, Automatedon Absolute Lymph 1.51 X10 3/uL Normal 0.83-4.51 [facility] Comment on above: Performed By: #### L 100.0100, L501.5425, L500.2500 #### [facility] [address] [place], [address] Absolute Neut 4.5 X10 3/uL Normal 2.0-7.7 [facility] Comment on above: Performed By: #### L 100.0100, L501.5425, L500.2500 #### [facility] [address] [place], [address] Basophils/100 WBC (Bld) 1.1 % High 0-1 [facility] Comment on above: Performed By: #### L 100.0100, L501.5425, L500.2500 #### [facility] [address] [place], [address] Eosinophils/100 WBC (Bld) 2.6 % Normal 0-5 [facility] Comment on above: Performed By: #### L 100.0100, L501.5425, L500.2500 #### [facility] [address] [place], [address] Erythrocyte distribution width (RBC) [Ratio] 13.8 % Normal 11.6-14.6 [facility] Comment on above: Performed By: #### L 100.0100, L501.5425, L500.2500 #### [facility] [address] [place], [address] Hematocrit (Bld) [Volume fraction] 41.9 % Normal 37-47 [facility] Comment on above: Performed By: #### L 100.0100, L501.5425, L500.2500 #### [facility] [address] [place], [address] Hemoglobin (Bld) [Mass/Vol] 13.4 g/dL Normal 12.0-15.0 [facility] Comment on above: Performed By: #### L 100.0100, L501.5425, L500.2500 #### [facility] [address] [place], [address] IG% 0.300 Normal 0.0-0.9 [facility] Comment on above: Result Comment: IG% - Immature Granulocytes (promyelocytes, myelocytes and metamyelocytes) > 1% indicates that a LEFT SHIFT is Present. Performed By: #### L 100.0100, L501.5425, L500.2500 #### [facility] [address] [place], [address] Lymphocytes/100 WBC (Bld) 21.7 % Normal 19-41 [facility] Comment on above: Performed By: #### L 100.0100, L501.5425, L500.2500 #### [facility] [address] [place], [address] MCH (RBC) [Entitic mass] 31.4 pg Normal 27.0-32.0 [facility] Comment on above: Performed By: #### L 100.0100, L501.5425, L500.2500 #### [facility] [address] [place], [address] MCHC (RBC) [Mass/Vol] 32.0 g/dL Normal 32-36 [facility] Comment on above: Performed By: #### L 100.0100, L501.5425, L500.2500 #### [facility] [address] [place], [address] MCV (RBC) [Entitic vol] 98.1 fL Normal 81-99 [facility] Comment on above: Performed By: #### L 100.0100, L501.5425, L500.2500 #### [facility] [address] [place], [address] Monocytes/100 WBC (Bld) 9.2 % Normal 0-10 [facility] Comment on above: Performed By: #### L 100.0100, L501.5425, L500.2500 #### [facility] [address] [place], [address] Neutrophils/100 WBC (Bld) 65.1 % Normal 47-70 [facility] Comment on above: Performed By: #### L 100.0100, L501.5425, L500.2500 #### [facility] [address] [place], [address] Nucleated RBC (Bld) [#/Vol] 0 10*3/uL Normal 0-5 [facility] Comment on above: Performed By: #### L 100.0100, L501.5425, L500.2500 #### [facility] [address] [place], [address] Platelet mean volume (Bld) [Entitic vol] 12.8 fL High 6.2-12.0 [facility] Comment on above: Performed By: #### L 100.0100, L501.5425, L500.2500 #### [facility] [address] [place], [address] Platelets (Bld) [#/Vol] 190 10*3/uL Normal 150-450 [facility] Comment on above: Performed By: #### L 100.0100, L501.5425, L500.2500 #### [facility] [address] [place], [address] RBC (Bld) [#/Vol] 4.27 10*6/uL Normal 4.2-5.4 [facility] Comment on above: Performed By: #### L 100.0100, L501.5425, L500.2500 #### [facility] [address] [place], [address] RDW SD 49.6 fl High 35.1-43.9 [facility] Comment on above: Performed By: #### L 100.0100, L501.5425, L500.2500 #### [facility] [address] [place], [address] WBC (Bld) [#/Vol] 7.0 10*3/uL Normal 4.4-11.0 [facility] Comment on above: Performed By: #### L 100.0100, L501.5425, L500.2500 #### [facility] [address] [place], [address] Carbon dioxide measurementOr dered By: Angel Wilkes on 09-26-2024 CO2 [Moles/Vol] 25.0 mmol/L 21.0-32.0 [facility] Chest 1 View (Portable)on Chest 1 View (Portable) [facility] Imaging Services [address] [place] [address] Chest 1 View (Portable) MR#: [id number] Acct: [id number] Name: CADY BERUMEN Rep #: [id number] : 1945 F 78 From: Anneliese Sanford MD PCP: Dr. Moon Teixeira MD Status: PRE ER Study: Chest 1 View (Portable) Date of Exam: 09/26/24 Exam# [id number] Ordering Dr: Angel Wilkes DIET AID-C EXAM: XR Chest, 1 View CLINICAL INDICATION: TECHNIQUE: Frontal view of the chest. COMPARISON: No relevant prior studies available. FINDINGS: LUNGS AND PLEURAL SPACES: Unremarkable. No consolidation. No pneumothorax. HEART: Unremarkable. No cardiomegaly. MEDIASTINUM: Unremarkable. Normal mediastinal contour. BONES/JOINTS: Unremarkable. No acute fracture. RAD/Chest 1 View (Portable) IMPRESSION: No acute cardiopulmonary process. Reading [facility] CC: LES Wilkes; Dr. 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 She is been having the [...] breath than usual and arrived by ambulance. 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 Normal [facility] Eosinophil percentageOrdered By: Angel Wilkes on 09-26-2024 Eosinophils/100 WBC (Bld) 2.6 % 0-5 [facility] Erythrocyte distribution wid th ratioOrdered By: Angel Wilkes on 09-26-2024 Erythrocyte distribution width (RBC) [Ratio] 13.8 % 11.6-14.6 [facility] Erythrocyte distribution wid th standard deviationOrdered By: Angel Wilkes on 09-26-2024 Erythrocyte distribution width (RBC) [Entitic vol] 49.6 fL High 35.1-43.9 [facility] Erythrocyte distribution width (RBC) [Ratio] 49.6 fl High 35.1-43.9 [facility] Estimated glomerular filtrat ion rate (GFR) AmericanOrdered By: Angel Wilkes on 09-26-2024 Estimated GFR (MDRD) Amer 82 mL/min >60 [facility] Comment on above: GFR Calc Estimation of creatinine attila aranceOrdered By: Angel Wilkes on 09-26-2024 Estimated Creatinine Clearance Calc 56.04 ml/min [facility] Glomerular filtration rate ( GFR) estimationOrdered By: Angel Wilkes on 09-26-2024 Estimated GFR (MDRD) Non-Af Amer 68 mL/min >60 [facility] Comment on above: Non- GFR Calc GFR/1.73 sq M.predicted among non-blacks MDRD (S/P/Bld) [Vol rate/Area] 68 mL/min/{1.73_m2} >60 [facility] Comment on above: Non- GFR Calc Glucose measurementOrdered B y: Angel Wilkes on 09-26-2024 Glucose [Mass/Vol] 106 mg/dL 74-106 [facility] Comment on above: Fasting Glucose resu lt from 100 to 125 mg/dL suggests IMPAIRED HOMEOSTASIS per A.D.A. criteria. Hematocrit Auto (Bld) [Volum e fraction]Ordered By: Angel Wilkes on 09-26-2024 Hematocrit (Bld) [Volume fraction] 41.9 % 37-47 [facility] Hemoglobin measurementOrdere d By: Angel Wilkes on 09-26-2024 Hemoglobin (Bld) [Mass/Vol] 13.4 g/dL 12.0-15.0 [facility] Immature granulocytes/100 WB C Auto (Bld)Ordered By: Angel Wilkes on 09-26-2024 Immature granulocytes/100 WBC (Bld) 0.300 % 0.0-0.9 [facility] Comment on above: IG% - Immature Granu locytes (promyelocytes, myelocytes and metamyelocytes) > 1% indicates that a LEFT SHIFT is Present. International normalized rat io (INR) calculationOrdered By: Angel Wilkes on 09-26-2024 INR Coag (Bld) [Relative time] 3.5 {INR} [facility] L501.4020on 09-26-2024 TROPONIN-I HS 14 pg/mL Normal 3.0-54.0 [facility] Comment on above: Result Comment: Gertrude pacheco Note: New Test Units and Gender Specific Reference Ranges. For more information see Policy Stat Procedure [place] High Sensitivity Troponin (TNIH) and attachments. Performed By: #### L 501.4020 #### [facility] [address] [place], [place] [address], [address] L501.5425on 09-26-2024 TROPONIN-I HS 8 pg/mL Normal 3.0-54.0 [facility] Comment on above: Order Comment: 1 Y Result Comment: Gertrude pacheco Note: New Test Units and Gender Specific Reference Ranges. For more information see Policy Stat Procedure [place] High Sensitivity Troponin (TNIH) and attachments. Performed By: #### L 100.0100, L501.5425, L500.2500 #### [facility] [address] [place], [address] Lymphocytes Auto (Unsp spec) [#/Vol]Ordered By: Angel Wilkes on 09-26-2024 Lymphocytes (Bld) [#/Vol] 1.51 10*3/uL 0.83-4.51 [facility] Lymphocytes/100 WBC Auto (Un sp spec)Ordered By: Angel Wilkes on 09-26-2024 Lymphocytes/100 WBC (Bld) 21.7 % 19-41 [facility] MCV (mean corpuscular volume ) determinationOrdered By: Angel Wilkes on 09-26-2024 MCV (RBC) [Entitic vol] 98.1 fL 81-99 [facility] Mean corpuscular hemoglobin (MCH) determinationOrdered By: Angel Wilkes on 09-26-2024 MCH (RBC) [Entitic mass] 31.4 pg 27.0-32.0 [facility] Mean corpuscular hemoglobin concentration (MCHC) determinationOrdered By: Angel Wilkes on 09-26-2024 MCHC (RBC) [Mass/Vol] 32.0 g/dL 32-36 [facility] Mean platelet volume determi nationOrdered By: Angel Wilkes on 09-26-2024 Platelet mean volume (Bld) [Entitic vol] 12.8 fL High 6.2-12.0 [facility] Monocyte percentageOrdered B y: Angel Wilkes on 09-26-2024 Monocytes/100 WBC (Bld) 9.2 % 0-10 [facility] Neutrophil percentageOrdered By: Angel Wilkes on 09-26-2024 Neutrophils/100 WBC (Bld) 65.1 % 47-70 [facility] Nucleated red blood cell per centageOrdered By: Angel Wilkes on 09-26-2024 Nucleated RBC/100 WBC (Bld) [Ratio] 0 % 0-5 [facility] Platelet countOrdered By: Jeannie Wilkes on 09-26-2024 Platelets (Bld) [#/Vol] 190 10*3/uL 150-450 [facility] Potassium measurementOrdered By: Angel Wilkes on 09-26-2024 Potassium [Moles/Vol] 4.5 mmol/L 3.5-5.1 [facility] Prothrombin Time w/INRon INR Coag (PPP) [Relative time] 3.5 {INR} Normal [facility] Comment on above: Performed By: #### L 300.3900, L503.6620 #### [facility] [address] [place], [address] PT Coag (PPP) [Time] 35.9 s High 11.7-14.9 [facility] Comment on above: Performed By: #### L 300.3900, L503.6620 #### [facility] [address] [place], [address] Prothrombin timeOrdered By: Angel Wilkes on 09-26-2024 PT Coag (PPP) [Time] 35.9 s High 11.7-14.9 [facility] RBC Auto (Bld) [#/Vol]Ordere d By: Angel Wilkes on 09-26-2024 RBC (Bld) [#/Vol] 4.27 10*6/uL 4.2-5.4 [facility] Serum anion gap measurementO rdered By: Angel Wilkes on 09-26-2024 Anion gap [Moles/Vol] 6 mmol/L 5-15 [facility] Serum or plasma calcium ayanna urement (mass/volume)Ordered By: Angel Wilkes on 09-26-2024 Calcium [Mass/Vol] 9.1 mg/dL 8.5-10.1 [facility] Serum or plasma creatinine m easurement (mass/volume)Ordered By: Angel Wilkes on 09-26-2024 Creatinine [Mass/Vol] 0.86 mg/dL 0.55-1.02 [facility] Comment on above: The validity of the calculated GFR & GFRAA in patients over 70 years has not been determined. Clinical correlation is essential. Serum or plasma urea nitroge n measurement (mass/volume)Ordered By: Angel Wilkes on 09-26-2024 Urea nitrogen [Mass/Vol] 25 mg/dL High 7-18 [facility] Sodium levelOrdered By: Angel Wilkes on 09-26-2024 Sodium [Moles/Vol] 140 mmol/L 136-145 [facility] Troponin IOrdered By: Angel montes on 09-26-2024 Troponin I 14 pg/mL 3.0-54.0 [facility] Comment on above: Please Note: New Bita t Units and Gender Specific Reference Ranges. For more information see Policy Stat Procedure [place] High Sensitivity Troponin (TNIH) and attachments. Troponin I High Sensitivity 14 pg/mL 3.0-54.0 [facility] Comment on above: Please Note: New Bita t Units and Gender Specific Reference Ranges. For more information see Policy Stat Procedure [place] High Sensitivity Troponin (TNIH) and attachments. White blood cell (WBC) count Ordered By: Angel Wilkes on 09-26-2024 WBC (Bld) [#/Vol] 7.0 10*3/uL 4.4-11.0 [facility] BNP,B-Type NATRIURETIC PEPTI John 09-24-2024 Natriuretic peptide B (Bld) [Mass/Vol] 182.8 pg/mL High 0-100 [facility] Comment on above: Performed By: #### L 503.6620, L100.0100, L500.2500 ####[facility] [address] [place], [address] Absolute lymphocyte countOrd ered By: Desire Weldon on 09-23-2024 Lymphocytes Auto (Unsp spec) [#/Vol] 1.62 10*3/uL 0.83-4.51 [facility] Absolute neutrophil countOrd ered By: Desire Weldon on 09-23-2024 Neutrophils (Bld) [#/Vol] 4.2 10*3/uL 2.0-7.7 [facility] Automated lymphocyte count a s percentage of total leukocytesOrdered By: Desireosmin Weldon on 09-23-2024 Lymphocytes/100 WBC Auto (Unsp spec) 23.4 % 19-41 [facility] BNP (brain natriuretic pepti de measurement)Ordered By: Desire Weldon on 09-23-2024 Natriuretic peptide B (Bld) [Mass/Vol] 182.8 pg/mL High 0-100 [facility] Basic Metabolic Profile (BMP )on 09-23-2024 BUN/CRE 37.5 RATIO High 10-20 [facility] Comment on above: Performed By: #### L 503.6620, L100.0100, L500.2500 ####[facility] [address] [place], [address] CA,Total 9.0 mg/dL Normal 8.5-10.1 [facility] Comment on above: Performed By: #### L 503.6620, L100.0100, L500.2500 ####[facility] [address] [place], [address] Chloride [Moles/Vol] 105 mmol/L Normal 98-107 [facility] Comment on above: Performed By: #### L 503.6620, L100.0100, L500.2500 ####[facility] [address] [place], [address] CO2 [Moles/Vol] 28.0 mmol/L Normal 21.0-32.0 [facility] Comment on above: Performed By: #### L 503.6620, L100.0100, L500.2500 ####[facility] [address] [place], [address] Creatinine [Mass/Vol] 0.75 mg/dL Normal 0.55-1.02 [facility] Comment on above: Result Comment: The validity of the calculated GFR GFRAA in patients over 70 years has not been determined. Clinical correlation is essential. Performed By: #### L 503.6620, L100.0100, L500.2500 ####[facility] [address] [place], [address] EST GFR - AA 96 mL/min Normal >60 [facility] Comment on above: Result Comment: Afri can [place] GFR Calc Performed By: #### L 503.6620, L100.0100, L500.2500 ####[facility] [address] [place], [address] GAP 3 Low 5-15 [facility] Comment on above: Performed By: #### L 503.6620, L100.0100, L500.2500 ####[facility] [address] [place], [address] GFR/1.73 sq M.predicted among non-blacks MDRD (S/P/Bld) [Vol rate/Area] 80 mL/min/{1.73_m2} Normal >60 [facility] Comment on above: Result Comment: Non- GFR Calc Performed By: #### L 503.6620, L100.0100, L500.2500 ####[facility] [address] [place], [address] Glucose [Mass/Vol] 84 mg/dL Normal 74-106 [facility] Comment on above: Performed By: #### L 503.6620, L100.0100, L500.2500 ####[facility] [address] [place], [address] Potassium [Moles/Vol] 5.0 mmol/L Normal 3.5-5.1 [facility] Comment on above: Performed By: #### L 503.6620, L100.0100, L500.2500 ####[facility] [address] [place], [address] Sodium [Moles/Vol] 136 mmol/L Normal 136-145 [facility] Comment on above: Performed By: #### L 503.6620, L100.0100, L500.2500 ####[facility] [address] [place], [address] Urea nitrogen [Mass/Vol] 28 mg/dL High 7-18 [facility] Comment on above: Performed By: #### L 503.6620, L100.0100, L500.2500 ####[facility] [address] [place], [address] Basophil percentageOrdered B y: Desire Shiraz on 09-23-2024 Basophils/100 WBC (Bld) 1.2 % High 0-1 [facility] CBC W/Diff, Automatedon 08-26 Absolute Lymph 1.62 X10 3/uL Normal 0.83-4.51 [facility] Comment on above: Performed By: #### L 503.6620, L100.0100, L500.2500 ####[facility] [address] [place], [address] Absolute Neut 4.2 X10 3/uL Normal 2.0-7.7 [facility] Comment on above: Performed By: #### L 503.6620, L100.0100, L500.2500 ####[facility] [address] [place], [address] Basophils/100 WBC (Bld) 1.2 % High 0-1 [facility] Comment on above: Performed By: #### L 503.6620, L100.0100, L500.2500 ####[facility] [address] [place], [address] Eosinophils/100 WBC (Bld) 3.2 % Normal 0-5 [facility] Comment on above: Performed By: #### L 503.6620, L100.0100, L500.2500 ####[facility] [address] [place], [address] Erythrocyte distribution width (RBC) [Ratio] 13.7 % Normal 11.6-14.6 [facility] Comment on above: Performed By: #### L 503.6620, L100.0100, L500.2500 ####[facility] [address] [place], [address] Hematocrit (Bld) [Volume fraction] 41.6 % Normal 37-47 [facility] Comment on above: Performed By: #### L 503.6620, L100.0100, L500.2500 ####[facility] [address] [place], [address] Hemoglobin (Bld) [Mass/Vol] 12.7 g/dL Normal 12.0-15.0 [facility] Comment on above: Performed By: #### L 503.6620, L100.0100, L500.2500 ####[facility] [address] [place], [address] IG% 0.400 Normal 0.0-0.9 [facility] Comment on above: Result Comment: IG% - Immature Granulocytes (promyelocytes, myelocytes and metamyelocytes) > 1% indicates that a LEFT SHIFT is Present. Performed By: #### L 503.6620, L100.0100, L500.2500 ####[facility] [address] [place], [address] Lymphocytes/100 WBC (Bld) 23.4 % Normal 19-41 [facility] Comment on above: Performed By: #### L 503.6620, L100.0100, L500.2500 ####[facility] [address] [place], [address] MCH (RBC) [Entitic mass] 30.7 pg Normal 27.0-32.0 [facility] Comment on above: Performed By: #### L 503.6620, L100.0100, L500.2500 ####[facility] [address] [place], [address] MCHC (RBC) [Mass/Vol] 30.5 g/dL Low 32-36 [facility] Comment on above: Performed By: #### L 503.6620, L100.0100, L500.2500 ####[facility] [address] [place], [address] MCV (RBC) [Entitic vol] 100.5 fL High 81-99 [facility] Comment on above: Performed By: #### L 503.6620, L100.0100, L500.2500 ####[facility] [address] [place], [address] Monocytes/100 WBC (Bld) 11.0 % High 0-10 [facility] Comment on above: Performed By: #### L 503.6620, L100.0100, L500.2500 ####[facility] [address] [place], [address] Neutrophils/100 WBC (Bld) 60.8 % Normal 47-70 [facility] Comment on above: Performed By: #### L 503.6620, L100.0100, L500.2500 ####[facility] [address] [place], [address] Nucleated RBC (Bld) [#/Vol] 0 10*3/uL Normal 0-5 [facility] Comment on above: Performed By: #### L 503.6620, L100.0100, L500.2500 ####[facility] [address] [place], [address] Platelet mean volume (Bld) [Entitic vol] 13.0 fL High 6.2-12.0 [facility] Comment on above: Performed By: #### L 503.6620, L100.0100, L500.2500 ####[facility] [address] [place], [address] Platelets (Bld) [#/Vol] 223 10*3/uL Normal 150-450 [facility] Comment on above: Performed By: #### L 503.6620, L100.0100, L500.2500 ####[facility] [address] [place], [address] RBC (Bld) [#/Vol] 4.14 10*6/uL Low 4.2-5.4 [facility] Comment on above: Performed By: #### L 503.6620, L100.0100, L500.2500 ####[facility] [address] [place], [address] RDW SD 50.6 fl High 35.1-43.9 [facility] Comment on above: Performed By: #### L 503.6620, L100.0100, L500.2500 ####[facility] [address] [place], [address] WBC (Bld) [#/Vol] 6.9 10*3/uL Normal 4.4-11.0 [facility] Comment on above: Performed By: #### L 503.6620, L100.0100, L500.2500 ####[facility] [address] [place], [address] Eosinophil percentageOrdered By: Desire Weldon on 09-23-2024 Eosinophils/100 WBC (Bld) 3.2 % 0-5 [facility] Erythrocyte distribution wid th ratioOrdered By: Desire Weldon on 09-23-2024 Erythrocyte distribution width (RBC) [Ratio] 13.7 % 11.6-14.6 [facility] Erythrocyte distribution wid th standard deviationOrdered By: Desire Weldon on 09-23-2024 Erythrocyte distribution width (RBC) [Entitic vol] 50.6 fL High 35.1-43.9 [facility] Erythrocyte distribution width (RBC) [Ratio] 50.6 fl High 35.1-43.9 [facility] Hematocrit Auto (Bld) [Volum e fraction]Ordered By: Desire Weldon on 09-23-2024 Hematocrit (Bld) [Volume fraction] 41.6 % 37-47 [facility] Hemoglobin measurementOrdere d By: Desire Weldon on 09-23-2024 Hemoglobin (Bld) [Mass/Vol] 12.7 g/dL 12.0-15.0 [facility] Immature granulocytes/100 WB C Auto (Bld)Ordered By: Desire Weldon on 09-23-2024 Immature granulocytes/100 WBC (Bld) 0.400 % 0.0-0.9 [facility] Comment on above: IG% - Immature Granu locytes (promyelocytes, myelocytes and metamyelocytes) > 1% indicates that a LEFT SHIFT is Present. Lymphocytes Auto (Unsp spec) [#/Vol]Ordered By: Desire Weldon on 09-23-2024 Lymphocytes (Bld) [#/Vol] 1.62 10*3/uL 0.83-4.51 [facility] Lymphocytes/100 WBC Auto (Un sp spec)Ordered By: Desire Weldon on 09-23-2024 Lymphocytes/100 WBC (Bld) 23.4 % 19-41 [facility] MCV (mean corpuscular volume ) determinationOrdered By: Desire Weldon on 09-23-2024 MCV (RBC) [Entitic vol] 100.5 fL High 81-99 [facility] Mean corpuscular hemoglobin (MCH) determinationOrdered By: Desire Weldon on 09-23-2024 MCH (RBC) [Entitic mass] 30.7 pg 27.0-32.0 [facility] Mean corpuscular hemoglobin concentration (MCHC) determinationOrdered By: Desire Weldon on 09-23-2024 MCHC (RBC) [Mass/Vol] 30.5 g/dL Low 32-36 [facility] Mean platelet volume determi nationOrdered By: Desire Weldon on 09-23-2024 Platelet mean volume (Bld) [Entitic vol] 13.0 fL High 6.2-12.0 [facility] Monocyte percentageOrdered B y: Desire Weldon on 09-23-2024 Monocytes/100 WBC (Bld) 11.0 % High 0-10 [facility] Neutrophil percentageOrdered By: Desire Weldon on 09-23-2024 Neutrophils/100 WBC (Bld) 60.8 % 47-70 [facility] Nucleated red blood cell per centageOrdered By: Desire Weldon on 09-23-2024 Nucleated RBC/100 WBC (Bld) [Ratio] 0 % 0-5 [facility] Platelet countOrdered By: Sheila Weldon on 09-23-2024 Platelets (Bld) [#/Vol] 223 10*3/uL 150-450 [facility] RBC Auto (Bld) [#/Vol]Ordere d By: Deisre Weldon on 09-23-2024 RBC (Bld) [#/Vol] 4.14 10*6/uL Low 4.2-5.4 [facility] White blood cell (WBC) count Ordered By: Desire Weldon on 09-23-2024 WBC (Bld) [#/Vol] 6.9 10*3/uL 4.4-11.0 [facility] INR Coag (BldC) [Relative ti me]Ordered By: Bart Rosales on 09-22-2024 INR Coag (Bld) [Relative time] 3.2 {INR} [facility] Comment on above: Critical Value > 4.0 International normalized rat io (INR) measurement by fingerstickOrdered By: Bart Rosales on 09-22-2024 INR Coag (BldC) [Relative time] 3.2 [facility] Comment on above: Critical Value > 4.0 PT Coag (Bld) [Time]Ordered By: Bart Rosales on 09-22-2024 Bedside Prothrombin Time 32.1 SEC High 11.7-14.9 [facility] Protime w/INR Fingerstickon 09-22-2024 INR Coag (PPP) [Relative time] 3.2 {INR} Normal [facility] Comment on above: Result Comment: Crit ical Value > 4.0 Performed By: #### L 711.0756 #### [facility] [address] [place], [place], [id number] Protime Coagsen 32.1 SEC High 11.7-14.9 [facility] Comment on above: Performed By: #### L 677.9540 #### [facility] [place], [address] Whole blood prothrombin time Ordered By: Bart Rosales on 09-22-2024 PT Coag (Jose Rafael) [Time] 32.1 s High 11.7-14.9 [facility] CNPNon 09-15-2024 CNPN Telephone (INTMWS) -- CADY BERUMEN ([id number]) 1945 F Date Time Provider Department 09/15/24 [place] INTMWS During your visit today, we recorded the following information about you: Adelina Carver RN 09/15/2024 12:10 PM Signed Patient calls [...] with [facility] and requests call back at [phone]. Pended order. LEANDER Plata Joy, APRN.ENOC 09/16/2024 9:46 AM Signed Order placed please assist with scheduling. Thank you José Miguel Saldaña APRN.Janessa Bal LPN 09/16/2024 9:52 AM Signed Phoned patient went over notes below from José Miguel Saldaña DIET AID with understanding. Assisted with transfer to tax assessor to get PT appt set up. Allergies [...] Order(s):CONSULT TO PHYSICAL THERAPY [9032] Order #: [id number]: 1 FUTURE Prescriptions as of 09/16/2024 - [...] by mouth daily except 7.5mg on ( [facility]) - ALPHA LIPOIC ACID ORAL Take [...] Asthma [J45.909] (more content not included)... [facility] Pro[facility] Time w/INRon INR Normal [facility] Comment on above: Result Comment: FING ERSTICK Performed By: #### L 300.3900 ####[facility] [address] [place], [address] PROTIME Normal 11.7-14.9 [facility] Comment on above: Result Comment: FING ERSTICK Performed By: #### L 300.3900 ####[facility] [address] [place], [address] Protime w/INR Fingerstickon 09-12-2024 INR Coag (PPP) [Relative time] 3.9 {INR} Normal [facility] Comment on above: Result Comment: Crit ical Value > 4.0 Performed By: #### L 300.3900, L503.6620 #### [facility] [address] [place], [address] Protime Coagsen 38.4 SEC High 11.7-14.9 [facility] Comment on above: Performed By: #### L 300.3900, L503.6620 #### [facility] [address] [place], [address] [facility] CADY BERUMEN ([id number]) 1945 F Date Time Provider Department 08/19/24 JANELLE MORALES During your visit today, we recorded the following information about you: Janelle Morales APRN.CNP 08/19/2024 3:27 PM Signed Please let her know that her UA is negative. Janelle Morales APRN.Sylwia Gerard MA 08/19/2024 3:29 PM Signed Patient was [...] by mouth daily except 7.5mg on ( [facility]) - ALPHA LIPOIC ACID ORAL Take [...] Encounter Status:Closed by SYLWIA PALENCIA on 08/19/24 [facility] 08-12-20[facility] CADY BERUMEN ([id number]) 1945 F Date Time Provider Department 08/12/24 [...] Negative Negative Ketones, Urine Negative Negative Specific [place], Ur 1.005 - 1.030 1.009 Hemoglobin/Blood,Ur Negative [...] by mouth daily except 7.5mg on ( [facility]) - ALPHA LIPOIC ACID ORAL Take [...] 11/06/2015 I (more content not included)... Normal [facility] Urinalysis complete panel (U )on 08-11-2024 Bacteria LM.HPF (Urine sed) [#/Area] Negative Normal Negative [facility] Comment on above: Order Comment: Speci men Type: URINE SPECIMENOrdering Facility: [facility] Address: [address] [place] [address] Performed By: #### 2 4356-8 ####[facility] [id number] [place] [address] [place] Bilirubin Ql (U) Negative Normal Negative [facility] Comment on above: Order Comment: Speci men Type: URINE SPECIMENOrdering Facility: [facility] Address: [address] [place] [address] Performed By: #### 2 4356-8 ####[facility] LABIA [id number] [place] [address] [place] Clarity (Unsp spec) Clear Normal Clear [facility] Comment on above: Order Comment: Speci men Type: URINE SPECIMENOrdering Facility: [facility] Address: [address] [place] [address] Performed By: #### 2 4356-8 ####[facility] LABCLIA [id number] [place] [address] [place] Color (U) Yellow Normal Yellow [facility] Comment on above: Order Comment: Speci men Type: URINE SPECIMENOrdering Facility: [facility] Address: [address] [place] [address] Performed By: #### 2 4356-8 ####[facility] LABCLIA [id number] [place] [address] [place] Epithelial cells LM.HPF (Urine sed) [#/Area] None Seen Normal [facility] Comment on above: Order Comment: Speci men Type: URINE SPECIMENOrdering Facility: [facility] Address: [address] [place] [address] Performed By: #### 2 4356-8 ####[facility] LABIA [id number] [place] [address] [place] Glucose Test strip (U) [Mass/Vol] Negative Normal Negative [facility] Comment on above: Order Comment: Speci men Type: URINE SPECIMENOrdering Facility: [facility] Address: [address] [place] [address] Performed By: #### 2 4356-8 ####[facility] LABIA [id number] [place] [address] [place] Hemoglobin Ql (U) Negative Normal Negative [facility] Comment on above: Order Comment: Speci men Type: URINE SPECIMENOrdering Facility: [facility] Address: [address] [place] [address] Performed By: #### 2 4356-8 ####[facility] LABCLIA [id number] [place] [address] [place] Hyaline casts (Urine sed) [#/Area] 0 /[LPF] Normal 0 /LPF [facility] Comment on above: Order Comment: Speci men Type: URINE SPECIMENOrdering Facility: [facility] Address: [address] [place] [address] Performed By: #### 2 4356-8 ####[facility] LABCLIA [id number] [place] [address] [place] Ketones Ql (U) Negative Normal Negative [facility] Comment on above: Order Comment: Speci men Type: URINE SPECIMENOrdering Facility: [facility] Address: [address] [place] [address] Performed By: #### 2 4356-8 ####[facility] LABCLIA [id number] [place] [address] [place] Leukocyte esterase Test strip Ql (U) Negative Normal Negative [facility] Comment on above: Order Comment: Speci men Type: URINE SPECIMENOrdering Facility: [facility] Address: [address] [place] [address] Performed By: #### 2 4356-8 ####[facility] LABCLIA [id number] [place] [address] [place] Nitrite Ql (U) Negative Normal Negative [facility] Comment on above: Order Comment: Speci men Type: URINE SPECIMENOrdering Facility: [facility] Address: [address] [place] [address] Performed By: #### 2 4356-8 ####[facility] LABCLIA [id number] [place] [address] [place] pH (U) 6.5 [pH] Normal <8.5 [facility] Comment on above: Order Comment: Speci men Type: URINE SPECIMENOrdering Facility: [facility] Address: [address] [place] [address] Performed By: #### 2 4356-8 ####[facility] LABCLIA [id number] [place] [address] [place] Protein (U) [Mass/Vol] Negative Normal Negative [facility] Comment on above: Order Comment: Speci men Type: URINE SPECIMENOrdering Facility: [facility] Address: [address] [place] [address] Performed By: #### 2 4356-8 ####[facility] LABIA [id number] [place] [address] [place] RBC LM.HPF (Urine sed) [#/Area] 0-2 /HPF Normal 0-2 /HPF [facility] Comment on above: Order Comment: Speci men Type: URINE SPECIMENOrdering Facility: [facility] Address: [address] [place] [address] Performed By: #### 2 4356-8 ####[facility] [id number] [place] [address] [place] Specific gravity (U) [Rel density] 1.009 Normal 1.005-1.03 0 [facility] Comment on above: Order Comment: Speci men Type: URINE SPECIMENOrdering Facility: [facility] Address: [address] [place] [address] Performed By: #### 2 4356-8 ####[facility] [id number] [place] [address] [place] Urobilinogen Ql (U) 0.2 EU/dL Normal 0.2-1.0 EU/dL [facility] Comment on above: Order Comment: Speci men Type: URINE SPECIMENOrdering Facility: [facility] Address: [address] [place] [address] Performed By: #### 2 4356-8 ####[facility] LABIA [id number] [place] [address] [place] WBC LM.HPF (Urine sed) [#/Area] 0-5 /HPF Normal 0-5 /HPF [facility] Comment on above: Order Comment: Speci men Type: URINE SPECIMENOrdering Facility: [facility] Address: [address] [place] [address] Performed By: #### 2 4356-8 ####[facility] SOMMER [id number] [address] [id number], [place] [address] [place] CNOVon 07-28-2024 CNOV Office Visit (PODIWS ) -- CADY BERUMEN ([id number]) 1945 F Date Time Provider Department 07/28/24 [...] MD PAST MEDICAL HISTORY Diagnosis Date A-fib ([facility]) February 2021 Asthma Atrial tachycardia (HCC) 10/14/2018 [...] by mouth daily except 7.5mg on ( [facility]) (Patient taking differently: 7.5 mg daily) [...] DX W/COLLJ SPEC WHEN PFRMD 08/23/2019 JOSEJulienne Florezbul repeat is not recommended NEUROPLASTY AND/TRANSPOS MEDIAN NRV CARPAL TUNNE 1990 Carpal tunnel decomp-bilateral PAST SURGICAL HISTORY OF 08-21-05 EXCISION CYST LEFT MIDDLE FINGER PAST SURGICAL HISTORY OF right foot surgery- mortons neuroma PAST SURGICAL HISTORY OF 2013 left foot vein ablation TONSILLECTOMY PRIMARY/SECONDARY AGE 12/ 89 FAMILY HISTORY Problem Relation Age of [...] and swollen (more content not included)... Normal [facility] CNPNon 07-27-2024 CNPN Telephone (FAMPWS) -- CADY BERUMEN ([id number]) 1945 F Date Time Provider Department 07/27/[address] [facility] During your visit today, we recorded the [...] by mouth daily except 7.5mg on ( [facility]) - ALPHA LIPOIC ACID ORAL Take [...] carotid tito (more content not included)... Normal [facility] Bacteria Ur Culton 4 Bacteria identified Cx Nom (U) ORGANISM ID: 1 10,000 -<50,000 CFU/ml Normal urogenital zion Normal [facility] Comment on above: Performed By: #### 6 30-4 ####[facility] LABCLIA [id number] [place] [id number] [place] CNOVon 07-26-2024 CNOV Office Visit (FAMPWS ) -- CADY BERUMEN ([id number]) 1945 F Date Time Provider Department 07/26/24 [...] History of a-fib, on coumadin, follows with [facility]. PAST MEDICAL HISTORY Diagnosis Date A-fib ([facility]) February 2021 Asthma Atrial tachycardia ([facility]) 10/14/2018 BPPV (benign paroxysmal positional vertigo) 10/30/2014 [...] by mouth daily except 7.5mg on ( [facility]) (Patient taking differently: 7.5 mg daily) [...] 67 Resp 12 Ht 165.1 cm (5' 5) Wt 73.9 kg (162 lb 14.7 oz) [...] RELEASE 24 HR, she will contact [facility] (repeat (more content not included)... [facility] CADY BERUMEN ([id number]) 1945 F Date Time Provider Department 07/26/[address] [facility] During your visit today, we recorded the [...] by mouth daily except 7.5mg on ( [facility]) - ALPHA LIPOIC ACID ORAL Take [...] Status:Closed by NIXON ARAYA on 07/26/24 Normal [facility] INR Coag (BldC) [Relative ti me]Ordered By: Bart Rosales on 07-26-2024 INR Coag (Bld) [Relative time] 3.2 {INR} [facility] Comment on above: Critical Value > 4.0 PT Coag (Bld) [Time]Ordered By: Bart Rosales on 07-26-2024 Bedside Prothrombin Time 33.3 SEC High 11.7-14.9 [facility] Protime w/INR Fingerstickon 07-26-2024 INR Coag (PPP) [Relative time] 3.2 {INR} Normal [facility] Comment on above: Result Comment: Crit ical Value > 4.0 Performed By: #### L 9200.0000 ####[facility] [address] [place], [place], [id number] Protime Coagsen 33.3 SEC High 11.7-14.9 [facility] Comment on above: Performed By: #### L 9200.0000 ####[facility] [address] [place], [place], [id number] UA DIP, URINE (POC)on 2023 BILIRUBIN UA (POCT) Negative Negative [facility] CLARITY UA (POCT) Clear [facility] COLOR UA (POCT) Yellow [facility] GLUCOSE UA (POCT) Negative Negative mg/dL [facility] Hemoglobin Ql (U) Trace-intact Abnormal Negative [facility] Interpretation and review of laboratory results Abnormal [facility] KETONE UA (POCT) Negative Negative mg/dL [facility] LEUKOCYTES UA (POCT) Negative Negative [facility] NITRITE UA (POCT) Negative Negative [facility] PH UA (POCT) 7.0 4.5 - 8.0 [facility] Protein Ql (U) Negative Negative mg/dL [facility] SPECIFIC GRAVITY UA (POCT) 1.015 1.005 - 1.030 [facility] UROBILINOGEN UA (POCT) 0.2 Normal E.U./dL [facility] Location:[facility], [address] [place] [address], [place], [address] [facility] POINT OF CARE [facility] XR CHEST 2V FRONTAL/LATon XR CHEST 2V [...] Degenerative changes.. IMPRESSION: No acute radiographic abnormality. A And P Techn[facility] Transcribe Date/Time: Jul 26 2024 12:11P Dictated by : DEBBIE GARCIA MD This examination was interpreted and the report reviewed and electronically signed by: DEBBIE GARCIA MD on Jul 26 2024 12:12PM EST [id number] Normal [facility] XR Chest PA and Lateralon IMPRESSION: No acute radiographic abnormality. A And P Technician: [facility] Transcribe Date/Time: Jul 26 2024 12:11P Dictated [...] tissues: Degenerative changes.. DIVISION OF RADIOLOGY Provider, [facility] - 07/26/2024 * * *Final Report* * [...] changes.. IMPRESSION IMPRESSION: No acute radiographic abnormality. A And P Technician: MARIE Transcribe Date/Time: Jul 26 2024 12:11P Dictated by : DEBBIE GARCIA MD This examination was interpreted and the report reviewed and electronically signed by: DEBBIE GARCIA MD on Jul 26 2024 12:12PM EST [facility] Radiology Study observation (narrative) [facility] XR Chest PA and LateralOrder ed By: Ccf Provider on 07-26-2024 [facility] XR Ribs - left 2 Viewson IMPRESSION: No acute abnormality A And P Technician: [facility] Transcribe Date/Time: Apr 25 2024 3:55P Dictated by : ABDULKADIR GONZALES MD This examination was interpreted and the report reviewed and electronically signed by: ABDULKADIR GONZALES MD on Apr 25 2024 3:55PM EST DIVISION OF RADIOLOGY * * *Final [...] recorder is noted. DIVISION OF RADIOLOGY Provider, Elsa esparza [place] - 04/25/2024 * * *Final Report* * [...] is noted. IMPRESSION IMPRESSION: No acute abnormality A And P Technician: PSCB Transcribe Date/Time: Apr 25 2024 3:55P Dictated by : ABDULKADIR GONZALES MD This examination was interpreted and the report reviewed and electronically signed by: ABDULKADIR GONZALES MD on Apr 25 2024 3:55PM EST [facility] XR Ribs - left 2 ViewsOrdere d By: Ccf Provider on 04-25-2024 [facility] XR Ribs - left 2 [place] Radiology Study observation (narrative) [facility] CBC W Auto Differential pane l (Bld)on 02-10-2024 Basophils (Bld) [#/Vol] 0.08 10*3/uL [facility] Basophils/100 WBC (Bld) 1.2 % [facility] Differential cell count method Nom (Bld) Auto [facility] Eosinophils (Bld) [#/Vol] 0.22 10*3/uL [facility] Eosinophils/100 WBC (Bld) 3.2 % [facility] Erythrocyte distribution width (RBC) [Ratio] 13.3 % 11.5 - 15.0 % [facility] Hematocrit (Bld) [Volume fraction] 39.3 % 36.0 - 46.0 % [facility] Hemoglobin (Bld) [Mass/Vol] 12.6 g/dL 11.5 - 15.5 g/dL [facility] Immature granulocytes (Bld) [#/Vol] [facility] Immature granulocytes/100 WBC (Bld) 0.1 % [facility] Interpretation and review of laboratory results Abnormal [facility] Lymphocytes (Bld) [#/Vol] 1.86 10*3/uL [facility] Lymphocytes/100 WBC (Bld) 27.0 % [facility] MCH (RBC) [Entitic mass] 31.7 pg 26.0 - 34.0 pg [facility] MCHC (RBC) [Mass/Vol] 32.1 g/dL 30.5 - 36.0 g/dL [facility] MCV (RBC) [Entitic vol] 99.0 fL 80.0 - 100.0 fL [facility] Monocytes (Bld) [#/Vol] 0.78 10*3/uL NINF [facility] Monocytes/100 WBC (Bld) 11.3 % [facility] Neutrophils (Bld) [#/Vol] 3.94 10*3/uL [facility] Neutrophils/100 WBC (Bld) 57.2 % [facility] Nucleated RBC (Bld) [#/Vol] NINF [facility] Nucleated RBC/100 WBC (Bld) [Ratio] 0.0 % /100 WBC [facility] Platelet mean volume (Bld) [Entitic vol] 12.8 fL High 9.0 - 12.7 fL [facility] Platelets (Bld) [#/Vol] 201 10*3/uL [facility] RBC (Bld) [#/Vol] 3.97 10*6/uL 3.90 - 5.20 m/uL [facility] WBC (Bld) [#/Vol] 6.89 10*3/uL [facility] Urinalysis complete panel (U )on 02-10-2024 Bacteria LM.HPF (Urine sed) [#/Area] Negative Negative /HPF [facility] Bilirubin Ql (U) Negative Negative [facility] Clarity (Unsp spec) Clear Clear [facility] Color (U) Yellow Yellow [facility] Epithelial cells LM.HPF (Urine sed) [#/Area] None Seen /HPF [facility] Glucose Test strip (U) [Mass/Vol] Negative Negative [facility] Hemoglobin Ql (U) Negative Negative [facility] Hyaline casts (Urine sed) [#/Area] 0 /[LPF] 0 /LPF [facility] Interpretation and review of laboratory results Abnormal [facility] Ketones Ql (U) Negative Negative [facility] Leukocyte esterase Test strip Ql (U) 1+ Abnormal Negative [facility] Nitrite Ql (U) Negative Negative [facility] pH (U) 7.0 [pH] NINF - 8.5 [facility] Protein (U) [Mass/Vol] Negative Negative [facility] RBC LM.HPF (Urine sed) [#/Area] 0-2 /HPF 0-2 /HPF [facility] Specific gravity (U) [Rel density] 1.020 1.005 - 1.030 [facility] Urobilinogen Ql (U) 0.2 EU/dL 0.2-1.0 EU/dL [facility] WBC LM.HPF (Urine sed) [#/Area] 0-5 /HPF 0-5 /HPF [facility] This test was develo ped and its performance characteristics determined by [facility]'s [facility] [place] ([facility]). It has not been cleared or approved by the FDA. [facility] is regulated under CLIA as qualified to perform high-complexity testing. This test is used for clinical purposes. It should not be regarded as investigational or for research. [facility] Chrissy 01-12-2024 CNPN Telephone (CARMOB) -- CADY BERUMEN ([id number]) 1945 F Date Time Provider Department 01/12/24 [...] Date Reviewed: 07/15/2023 Reviewed by: Patrizia Willis APRN.EARLY CHILDHOOD - Fully Assessed Reason for Visit: Appointment [...] by mouth daily except 7.5mg on ( [facility]) - ALPHA LIPOIC ACID ORAL Take [...] Encounter Status:Closed by MERLY RODRIGUEZ on 01/12/24 [facility] Capillary blood internationa l normalized ratio (INR)Ordered By: Bart Rosales on 12-05-2023 INR Coag (BldC) [Relative time] 1.8 [facility] Comment on above: Critical Value > 4.0 Whole blood prothrombin time Ordered By: Bart Rosales on 12-05-2023 PT Coag (Bld) [Time] 19.1 s 11.7-14.9 [facility] Capillary blood internationa l normalized ratio (INR)Ordered By: Bart Rosales on 10-26-2023 INR Coag (BldC) [Relative time] 2.3 [facility] Comment on above: Critical Value > 4.0 Whole blood prothrombin time Ordered By: Bart Rosales on 10-26-2023 PT Coag (Bld) [Time] 23.9 s 11.7-14.9 [facility] CNPNon 10-07-2023 CNPN Telephone (CARMOB) -- CADY BERUMEN ([id number]) 1945 F Date Time Provider Department 10/07/23 SOFIA SWARTZ During your visit today, we recorded the following information about you: Merly Rodriguez 10/07/2023 1:12 PM Signed Pt called she has been seeing general cardiology at [facility], pt just moved to [place] and would like to be seen by us. She had a loop place at [facility] , they are currently monitoring pt loop. [...] again she will come to the ER. Arsalan Boltonanastasiya Ball 10/09/2023 9:55 AM Signed Requested records from [facility]. Sheldon Boltonanthanastasiya Ball 10/19/2023 10:50 AM Signed Received a records from [facility]. Sandra Bolton 10/19/2023 2:10 PM Signed New Patient Referral Dr. Joann Berumen : 1945 Ph:[phone] Reason- Paroxysmal Afib, HTN, near syncope Records Scanned In Megan Coleman 10/19/2023 2:46 PM Signed LMOM for patient to call schedule Megan Garza 10/20/2023 9:00 AM Signed Patient wanted to be scheduled with Dr. Mejia, scheduled and confirmed with patient Megan [place] Allergies As of Date: 10/07/2023 Noted Allergy [...] Date Reviewed: 07/15/2023 Reviewed by: Patrizia Willis APRN.EARLY CHILDHOOD - Fully Assessed Reason for Visit: Appointment [...] by mouth daily except 7.5mg on ( [facility]) - ALPHA LIPOIC ACID ORAL Take [...] paroxysmal posi (more content not included)... Normal [facility] Capillary blood internationa l normalized ratio (INR)Ordered By: Bart Rosales on 09-18-2023 INR Coag (BldC) [Relative time] 2.5 [facility] Comment on above: Critical Value > 4.0 Whole blood prothrombin time Ordered By: Bart Rosales on 09-18-2023 PT Coag (Bld) [Time] 25.2 s 11.7-14.9 [facility] Laboratory - CoagulationOrde red By: Bart Rosales on 07-29-2023 INR Coag (Bld) [Relative time] 2.9 {INR} [facility] Comment on above: Critical Value > 4.0 Whole blood prothrombin time Ordered By: Bart Rosales on 07-29-2023 PT Coag (Bld) [Time] 31.1 s 11.7-14.9 [facility] XR Wrist - right PA and Late ral and Obliqueon 07-19-2023 IMPRESSION: Advanced 1st [facility] joint osteoarthrosis A And P Technician: MARIE Transcribe Date/Time: Jul 19 2023 8:46P Dictated by : ABDULKADIR GONZALES MD This examination was interpreted and the report reviewed and electronically signed by: ABDULKADIR GONZALES MD on Jul 19 2023 8:47PM [facility] DIVISION OF RADIOLOGY * * *Final Report* [...] fracture or dislocation. DIVISION OF RADIOLOGY Provider, Tamika [facility] - 07/19/2023 * * *Final Report* * [...] IMPRESSION IMPRESSION: Advanced 1st [facility] joint osteoarthrosis A And P Technician: MARIE Transcribe Date/Time: Jul 19 2023 8:46P Dictated by : ABDULKADIR GONZALES MD This examination was interpreted and the report reviewed and electronically signed by: ABDULKADIR GONZALES MD on Jul 19 2023 8:47PM EST [facility] XR Wrist - right PA and Late ral and ObliqueOrdered By: Ccf Provider on 07-19-2023 [facility] XR Wrist - right PA and Late ral and Obliqueon 07-15-2023 Radiology Study observation (narrative) [facility] INR in Blood by Coagulation assayOrdered By: Dominguez Garsia on 05-01-2023 INR Coag (Bld) [Relative time] 2.8 {INR} [facility] Laboratory - CoagulationOrde red By: Dominguez Garsia on 05-01-2023 PT Coag (PPP) [Time] 29.6 s 11.7-14.9 [facility] INR in Blood by Coagulation assayOrdered By: Bart Rosales on 03-30-2023 INR Coag (Bld) [Relative time] 2.5 {INR} [facility] Laboratory - CoagulationOrde red By: Bart Rosales on 03-30-2023 PT Coag (PPP) [Time] 26.9 s 11.7-14.9 [facility] INR in Blood by Coagulation assayOrdered By: Bart Rosales on 03-16-2023 INR Coag (Bld) [Relative time] 1.9 {INR} [facility] - CoagulationOrde red By: Bart Rosales on 03-16-2023 PT Coag (PPP) [Time] 21.9 s 11.7-14.9 [facility] INR in Blood by Coagulation assayOrdered By: Bart Rosales on 02-05-2023 INR Coag (Bld) [Relative time] 2.5 {INR} [facility] Laboratory - CoagulationOrde red By: Bart Rosales on 02-05-2023 PT Coag (PPP) [Time] 27.1 s 11.7-14.9 [facility] XR FOOT 3V AP/LAT/OBL RTon 0 [...] Healing fracture of the distal fourth toe. A And P Technician: MARIE Transcribe Date/Time: Feb 04 2023 12:24P Dictated by : HOLDEN QUIROGA MD This examination was interpreted and the report reviewed and electronically signed by: HOLDEN QUIROGA MD on Feb 04 2023 12:27PM EST [id number] [facility] XR Foot - right AP and Later al and obliqueon 02-04-2023 IMPRESSION: Healing fracture of the distal fourth toe. A And P Technician: MARIE Transcribe Date/Time: Feb 04 2023 12:24P Dictated by : HOLDEN QUIROGA MD This examination was interpreted and the report reviewed and electronically signed by: HOLDEN QUIROGA MD on Feb 04 2023 12:27PM EST [facility] * * *Final Report* * * [...] fourth toe. Soft tissue swelling is present. [facility] Provider, [facility] - 02/04/2023 * * *Final Report* * [...] Healing fracture of the distal fourth toe. A And P Technician: MARIE Transcribe Date/Time: Feb 04 2023 12:24P Dictated by : HOLDEN QUIROGA MD This examination was interpreted and the report reviewed and electronically signed by: HOLDEN QUIROGA MD on Feb 04 2023 12:27PM EST [facility] Radiology Study observation (narrative) [facility] XR Foot - right AP and Later al and obliqueOrdered By: [facility] Provider on 02-04-2023 [facility] XR Foot - right AP and Later al and obliqueon 01-22-2023 IMPRESSION: Injury t o the fourth toe. Last set of films demonstrates satisfactory alignment. A And P Technician: PSCBud Transcribe Date/Time: Jan 22 2023 7:49A Dictated by : HOLDEN QUIROGA MD This examination was interpreted and the report reviewed and electronically signed by: HOLDEN QUIROGA MD on Jan 22 2023 7:54AM EST [facility] * * *Final Report* * * DATE OF EXAM: Jan 21 2023 4:21PM MDO 5337 - XR FOOT 3V AP/LAT/OBL RT / PROCEDURE REASON: multiple diagnoses * * * * Physician Interpretation * * * * HISTORY: PAIN TO FOOT/TOE (accession [id number]), PAIN RIGHT FOOT (accession [id number]). Pain and swelling of toe, right Pain [...] the toe. Subsequent films demonstrate satisfactory alignment. [facility] Provider, [facility] - 01/22/2023 * * *Final Report* * * DATE OF EXAM: Jan 21 2023 4:21PM MDO 5337 - XR FOOT 3V AP/LAT/OBL RT / PROCEDURE REASON: multiple diagnoses * * * * Physician Interpretation * * * * HISTORY: PAIN TO FOOT/TOE (accession [id number]), PAIN RIGHT FOOT (accession [id number]). Pain and swelling of toe, right Pain [...] Last set of films demonstrates satisfactory alignment. A And P Technician: PSCB Transcribe Date/Time: Jan 22 2023 7:49A Dictated by : HOLDEN QUIROGA MD This examination was interpreted and the report reviewed and electronically signed by: HOLDEN QUIROGA MD on Jan 22 2023 7:54AM [facility] * * *Final Report* * * DATE OF EXAM: Jan 21 2023 5:19PM MDO 5337 - XR FOOT 3V AP/LAT/OBL RT / PROCEDURE REASON: [id number] * * * * Physician Interpretation * * * * HISTORY: PAIN TO FOOT/TOE (accession [id number]), PAIN RIGHT FOOT (accession [id number]). Pain and swelling of toe, right Pain [...] the toe. Subsequent films demonstrate satisfactory alignment. [facility] Provider, [facility] - 01/22/2023 * * *Final Report* * * DATE OF EXAM: Jan 21 2023 5:19PM MD 5337 - XR FOOT 3V AP/LAT/OBL RT / PROCEDURE REASON: [id number] * * * * Physician Interpretation * * * * HISTORY: PAIN TO FOOT/TOE (accession [id number]), PAIN RIGHT FOOT (accession [id number]). Pain and swelling of toe, right Pain [...] Last set of films demonstrates satisfactory alignment. A And P Technician: PSCB Transcribe Date/Time: Jan 22 2023 7:49A Dictated by : HOLDEN QUIROGA MD This examination was interpreted and the report reviewed and electronically signed by: HOLDEN QUIROGA MD on Jan 22 2023 7:54AM EST [facility] XR Foot - right AP and Later al and obliqueOrdered By: [facility] Provider on 01-22-2023 [facility] XR FOOT 3V AP/LAT/OBL RTon 0 5-31-2023 XR FOOT 3V AP/LAT/OBL RT * * *Final Report* * * DATE OF EXAM: Jan 21 2023 5:19PM [facility] 5337 - XR FOOT 3V AP/LAT/OBL RT / PROCEDURE REASON: [id number] * * * * Physician Interpretation * * * * HISTORY: PAIN TO FOOT/TOE (accession [id number]), PAIN RIGHT FOOT (accession [id number]). Pain and swelling of toe, right Pain [...] Last set of films demonstrates satisfactory alignment. [facility] Trans[facility] Date/Time: Jan 22 2023 7:49A Dictated by : HOLDEN QUIROGA MD This examination was interpreted and the report reviewed and electronically signed by: HOLDEN QUIROGA MD on Jan 22 2023 7:54AM EST [id number] [facility] XR FOOT 3V AP/LAT/OBL RT * * *Final Report* * * DATE OF EXAM: Jan 21 2023 4:21PM MDO 5337 - XR FOOT 3V AP/LAT/OBL RT / PROCEDURE REASON: multiple diagnoses * * * * Physician Interpretation * * * * HISTORY: PAIN TO FOOT/TOE (accession [id number]), PAIN RIGHT FOOT (accession [id number]). Pain and swelling of toe, right Pain [...] Last set of films demonstrates satisfactory alignment. A And P Technician: PSCB Transcribe Date/Time: Jan 22 2023 7:49A Dictated by : HOLDEN QUIROGA MD This examination was interpreted and the report reviewed and electronically signed by: HOLDEN QUIROGA MD on Jan 22 2023 7:54AM EST [id number] [facility] XR FOOT GENERAL 3V AP/LAT/OB L RIGHTon 01-21-2023 [facility] XR Foot - right AP and Later al and obliqueon 01-21-2023 Radiology Study observation (narrative) [facility] Radiology Study observation (narrative) [facility] INR in Blood by Coagulation assayOrdered By: Bart Rosales on 01-09-2023 INR Coag (Bld) [Relative time] 1.9 {INR} [facility] Laboratory - CoagulationOrde red By: Bart Rosales on 01-09-2023 PT Coag (PPP) [Time] 22.3 s 11.7-14.9 [facility] XR Foot - right AP and Later al and obliqueon 01-01-2023 IMPRESSION: NO ACUTE BONY ABNORMALITY AND NO CHANGE COMPARED TO THE PREVIOUS EXAM. A And P Technician: PSCB Transcribe Date/Time: Jan 01 2023 4:06P Dictated by : GIUSEPPE CHUA MD This examination was interpreted and the report reviewed and electronically signed by: GIUSEPPE CHUA MD on Jan 01 2023 4:10PM [facility] DIVISION OF RADIOLOGY * * *Final Report* [...] Mild hallux valgus. DIVISION OF RADIOLOGY Provider, [facility] - 01/01/2023 * * *Final Report* [...] NO CHANGE COMPARED TO THE PREVIOUS EXAM. A And P Technician: MARIE Transcribe Date/Time: Jan 01 2023 4:06P Dictated by : GIUSEPPE CHUA MD This examination was interpreted and the report reviewed and electronically signed by: GIUSEPPE CHUA MD on Jan 01 2023 4:10PM EST [facility] XR Foot - right AP and Later al and obliqueOrdered By: [facility] Provider on 01-01-2023 [facility] XR FOOT GENERAL 3V AP/LAT/OB L RIGHTon 12-30-2022 [facility] XR Foot - right AP and Later al and obliqueon 12-30-2022 Radiology Study observation (narrative) [facility] INR in Blood by Coagulation assayOrdered By: Bart Rosales on 12-05-2022 INR Coag (Bld) [Relative time] 2.2 {INR} [facility] Laboratory - CoagulationOrde red By: Bart Rosales on 12-05-2022 PT Coag (PPP) [Time] 24.1 s 11.7-14.9 [facility] No Panel Informationon 12-01 INR International Normalized Ratio 3.7 [facility] INR in Blood by Coagulation assayOrdered By: Bart Rosales on 11-05-2022 INR Coag (Bld) [Relative time] 3.1 {INR} [facility] Laboratory - CoagulationOrde red By: Bart Rosales on 11-05-2022 PT Coag (PPP) [Time] 31.7 s 11.7-14.9 [facility] Absolute lymphocyte countOrd ered By: Dr. Fay on 10-13-2022 Lymphocytes Auto (Unsp spec) [#/Vol] 1.52 10*3/uL 0.83-4.51 [facility] Absolute lymphocyte countOrd ered By: Dr. Perry on 10-13-2022 Lymphocytes Auto (Unsp spec) [#/Vol] 1.27 10*3/uL 0.83-4.51 [facility] Basophil percentageOrdered B y: Dr. Fay on 10-13-2022 Basophils/100 WBC (Bld) 1.0 % 0-1 [facility] Chloride [Moles/Vol] 107 mmol/L 98-107 [facility] Eosinophils/100 WBC (Bld) 7.1 % 0-5 [facility] Glucose [Mass/Vol] 107 mg/dL 74-106 [facility] Comment on above: Fasting Glucose resu lt from 100 to 125 mg/dL suggests IMPAIRED HOMEOSTASIS per A.D.A. criteria. Neutrophils (Bld) [#/Vol] 4.3 10*3/uL 2.0-7.7 [facility] Neutrophils/100 WBC (Bld) 59.8 % 47-70 [facility] Potassium [Moles/Vol] 4.0 mmol/L 3.5-5.1 [facility] Sodium [Moles/Vol] 140 mmol/L 136-145 [facility] WBC (Bld) [#/Vol] 7.1 10*3/uL 4.4-11.0 [facility] Basophil percentageOrdered B y: Dr. Perry on 10-13-2022 Basophils/100 WBC (Bld) 1.2 % 0-1 [facility] Chloride [Moles/Vol] 111 mmol/L 98-107 [facility] Eosinophils/100 WBC (Bld) 11.9 % 0-5 [facility] Glucose [Mass/Vol] 97 mg/dL 74-106 [facility] Neutrophils (Bld) [#/Vol] 2.3 10*3/uL 2.0-7.7 [facility] Neutrophils/100 WBC (Bld) 48.3 % 47-70 [facility] Potassium [Moles/Vol] 3.8 mmol/L 3.5-5.1 [facility] Sodium [Moles/Vol] 142 mmol/L 136-145 [facility] WBC (Bld) [#/Vol] 4.9 10*3/uL 4.4-11.0 [facility] Blood erythrocytes count (nu mber/volume)Ordered By: Dr. Fay on 10-13-2022 RBC (Bld) [#/Vol] 3.63 10*6/uL 4.2-5.4 [facility] Blood erythrocytes count (nu mber/volume)Ordered By: Dr. Perry on 10-13-2022 RBC (Bld) [#/Vol] 3.68 10*6/uL 4.2-5.4 [facility] Blood hemoglobin measurement (mass/volume)Ordered By: Dr. Fay on 10-13-2022 Hemoglobin (Bld) [Mass/Vol] 11.5 g/dL 12.0-15.0 [facility] Blood hemoglobin measurement (mass/volume)Ordered By: Dr. Perry on 10-13-2022 Hemoglobin (Bld) [Mass/Vol] 11.7 g/dL 12.0-15.0 [facility] Blood lymphocytes/100 leukoc ytesOrdered By: Dr. Fay on 10-13-2022 Lymphocytes/100 WBC (Bld) 21.3 % 19-41 [facility] Blood lymphocytes/100 leukoc ytesOrdered By: Dr. Perry on 10-13-2022 Lymphocytes/100 WBC (Bld) 26.1 % 19-41 [facility] Blood monocytes/100 leukocyt esOrdered By: Dr. Fay on 10-13-2022 Monocytes/100 WBC (Bld) 10.5 % 0-10 [facility] Blood monocytes/100 leukocyt esOrdered By: Dr. Perry on 10-13-2022 Monocytes/100 WBC (Bld) 12.1 % 0-10 [facility] Blood platelet mean volumeOr dered By: Dr. Fay on 10-13-2022 Platelet mean volume (Bld) [Entitic vol] 12.8 fL 6.2-12.0 [facility] Blood platelet mean volumeOr dered By: Dr. Perry on 10-13-2022 Platelet mean volume (Bld) [Entitic vol] 11.9 fL 6.2-12.0 [facility] Determination of erythrocyte mean corpuscular volume (MCV)Ordered By: Dr. Fay on 10-13-2022 MCV (RBC) [Entitic vol] 100.6 fL 81-99 [facility] Determination of erythrocyte mean corpuscular volume (MCV)Ordered By: Dr. Perry on 10-13-2022 MCV (RBC) [Entitic vol] 99.2 fL 81-99 [facility] Hematocrit Auto (Bld) [Volum e fraction]Ordered By: Dr. Fay on 10-13-2022 Hematocrit (Bld) [Volume fraction] 36.5 % 37-47 [facility] Hematocrit Auto (Bld) [Volum e fraction]Ordered By: Dr. Perry on 10-13-2022 Hematocrit (Bld) [Volume fraction] 36.5 % 37-47 [facility] INR in Blood by Coagulation assayOrdered By: Dr. Fay on 10-13-2022 INR Coag (Bld) [Relative time] 3.0 {INR} [facility] INR in Blood by Coagulation assayOrdered By: Dr. Perry on 10-13-2022 INR Coag (Bld) [Relative time] 3.3 {INR} [facility] Laboratory - Chemistry and C hemistry - challengeOrdered By: Dr. Fay on 10-13-2022 CO2 [Moles/Vol] 24.0 mmol/L 21.0-32.0 [facility] Urea nitrogen/Creatinine [Mass ratio] 30.0 mg/mg 06-12 [facility] Laboratory - Chemistry and C hemistry - challengeOrdered By: Dr. Perry on 10-13-2022 CO2 [Moles/Vol] 26.0 mmol/L 21.0-32.0 [facility] Free T4 [Mass/Vol] 1.00 ng/dL 0.76-1.46 [facility] Urea nitrogen/Creatinine [Mass ratio] 30.2 mg/mg 06-12 [facility] Laboratory - CoagulationOrde red By: Dr. Fay on 10-13-2022 PT Coag (PPP) [Time] 30.7 s 11.7-14.9 [facility] Laboratory - CoagulationOrde red By: Dr. Perry on 10-13-2022 PT Coag (PPP) [Time] 33.5 s 11.7-14.9 [facility] Laboratory - Hematology and Cell countsOrdered By: Dr. Fay on 10-13-2022 Erythrocyte distribution width (RBC) [Entitic vol] 51.0 fL 35.1-43.9 [facility] Erythrocyte distribution width (RBC) [Ratio] 13.7 % 11.6-14.6 [facility] Immature granulocytes/100 WBC (Bld) 0.300 % 0.0-0.9 [facility] Comment on above: IG% - Immature Granu locytes (promyelocytes, myelocytes and metamyelocytes) > 1% indicates that a LEFT SHIFT is Present. MCH (RBC) [Entitic mass] 31.7 pg 27.0-32.0 [facility] Nucleated RBC/100 WBC (Bld) [Ratio] 0 % 0-5 [facility] Laboratory - Hematology and Cell countsOrdered By: Dr. Perry on 10-13-2022 Erythrocyte distribution width (RBC) [Entitic vol] 50.1 fL 35.1-43.9 [facility] Erythrocyte distribution width (RBC) [Ratio] 13.7 % 11.6-14.6 [facility] Immature granulocytes/100 WBC (Bld) 0.400 % 0.0-0.9 [facility] Comment on above: IG% - Immature Granu locytes (promyelocytes, myelocytes and metamyelocytes) > 1% indicates that a LEFT SHIFT is Present. MCH (RBC) [Entitic mass] 31.8 pg 27.0-32.0 [facility] Nucleated RBC/100 WBC (Bld) [Ratio] 0 % 0-5 [facility] MCHC Auto (RBC) [Mass/Vol]Or dered By: Dr. Fay on 10-13-2022 MCHC (RBC) [Mass/Vol] 31.5 g/dL 32-36 [facility] MCHC Auto (RBC) [Mass/Vol]Or dered By: Dr. Perry on 10-13-2022 MCHC (RBC) [Mass/Vol] 32.1 g/dL 32-36 [facility] No Panel InformationOrdered By: Dr. Fay on 10-13-2022 Estimated Creatinine Clearance Calc 43.07 ml/min [facility] Estimated GFR (MDRD) Amer 94 mL/min >60 [facility] Comment on above: GFR Calc Estimated GFR (MDRD) Non-Af Amer 78 mL/min >60 [facility] Comment on above: Non- GFR Calc Troponin I High Sensitivity 6 pg/mL 3.0-54.0 [facility] Comment on above: Please Note: New Bita t Units and Gender Specific Reference Ranges. For more information see Policy Stat Procedure [place] High Sensitivity Troponin (TNIH) and attachments. No Panel InformationOrdered By: Dr. Perry on 10-13-2022 Estimated Creatinine Clearance Calc 43.07 ml/min [facility] Estimated GFR (MDRD) Amer 111 mL/min >60 [facility] Comment on above: GFR Calc Estimated GFR (MDRD) Non-Af Amer 92 mL/min >60 [facility] Comment on above: Non- GFR Calc Free Triiodothyronine (T3) pg/dL 1.9 pg/mL 2.18-3.98 [facility] Troponin I High Sensitivity 6 pg/mL 3.0-54.0 [facility] Comment on above: Please Note: New Bita t Units and Gender Specific Reference Ranges. For more information see Policy Stat Procedure [place] High Sensitivity Troponin (TNIH) and attachments. Platelets bldOrdered By: Dr. Fay on 10-13-2022 Platelets (Bld) [#/Vol] 171 10*3/uL 150-450 [facility] Platelets bldOrdered By: Dr. Perry on 10-13-2022 Platelets (Bld) [#/Vol] 165 10*3/uL 150-450 [facility] Serum or plasma calcium ayanna urement (mass/volume)Ordered By: Dr. Fay on 10-13-2022 Calcium [Mass/Vol] 9.2 mg/dL 8.5-10.1 [facility] Serum or plasma calcium ayanna urement (mass/volume)Ordered By: Dr. Perry on 10-13-2022 Calcium [Mass/Vol] 8.6 mg/dL 8.5-10.1 [facility] Serum or plasma creatinine m easurement (mass/volume)Ordered By: Dr. Fay on 10-13-2022 Creatinine [Mass/Vol] 0.77 mg/dL 0.55-1.02 [facility] Comment on above: The validity of the calculated GFR & GFRAA in patients over 70 years has not been determined. Clinical correlation is essential. Serum or plasma creatinine m easurement (mass/volume)Ordered By: Dr. Perry on 10-13-2022 Creatinine [Mass/Vol] 0.66 mg/dL 0.55-1.02 [facility] Comment on above: The validity of the calculated GFR & GFRAA in patients over 70 years has not been determined. Clinical correlation is essential. Serum or plasma urea nitroge n measurement (mass/volume)Ordered By: Dr. Fay on 10-13-2022 Urea nitrogen [Mass/Vol] 23 mg/dL 03-10 [facility] Serum or plasma urea nitroge n measurement (mass/volume)Ordered By: Dr. Perry on 10-13-2022 Urea nitrogen [Mass/Vol] 20 mg/dL 03-10 [facility] Thin prep Papanicolaou smear with manual screeningOrdered By: Dr. Fay on 10-13-2022 Thin prep Papanicolaou smear with manual screening 9 - [facility] Thin prep Papanicolaou smear with manual screeningOrdered By: Dr. Perry on 10-13-2022 Thin prep Papanicolaou smear with manual screening 5 -15 [facility] Absolute lymphocyte countOrd ered By: Dr. Akins on 10-12-2022 Lymphocytes Auto (Unsp spec) [#/Vol] 1.58 10*3/uL 0.83-4.51 [facility] Basophil percentageOrdered B y: Dr. Akins on 10-12-2022 Basophils/100 WBC (Bld) 1.2 % 0-1 [facility] Chloride [Moles/Vol] 111 mmol/L 98-107 [facility] Eosinophils/100 WBC (Bld) 15.4 % 0-5 [facility] Glucose [Mass/Vol] 106 mg/dL 74-106 [facility] Comment on above: Fasting Glucose resu lt from 100 to 125 mg/dL suggests IMPAIRED HOMEOSTASIS per A.D.A. criteria. Neutrophils (Bld) [#/Vol] 2.5 10*3/uL 2.0-7.7 [facility] Neutrophils/100 WBC (Bld) 44.1 % 47-70 [facility] Potassium [Moles/Vol] 4.8 mmol/L 3.5-5.1 [facility] Comment on above: Moderate Hemolysis, Result may be falsely increased. Sodium [Moles/Vol] 139 mmol/L 136-145 [facility] WBC (Bld) [#/Vol] 5.7 10*3/uL 4.4-11.0 [facility] Blood erythrocytes count (nu mber/volume)Ordered By: Dr. Akins on 10-12-2022 RBC (Bld) [#/Vol] 4.02 10*6/uL 4.2-5.4 [facility] Blood hemoglobin measurement (mass/volume)Ordered By: Dr. Akins on 10-12-2022 Hemoglobin (Bld) [Mass/Vol] 12.4 g/dL 12.0-15.0 [facility] Blood lymphocytes/100 leukoc ytesOrdered By: Dr. Akins on 10-12-2022 Lymphocytes/100 WBC (Bld) 27.6 % 19-41 [facility] Blood monocytes/100 leukocyt esOrdered By: Dr. Akins on 10-12-2022 Monocytes/100 WBC (Bld) 11.4 % 0-10 [facility] Blood platelet mean volumeOr dered By: Dr. Akins on 10-12-2022 Platelet mean volume (Bld) [Entitic vol] 13.0 fL 6.2-12.0 [facility] Determination of erythrocyte mean corpuscular volume (MCV)Ordered By: Dr. Akins on 10-12-2022 MCV (RBC) [Entitic vol] 99.0 fL 81-99 [facility] Hematocrit Auto (Bld) [Volum e fraction]Ordered By: Dr. Akins on 10-12-2022 Hematocrit (Bld) [Volume fraction] 39.8 % 37-47 [facility] INR in Blood by Coagulation assayOrdered By: Dr. Akins on 10-12-2022 INR Coag (Bld) [Relative time] 2.8 {INR} [facility] Laboratory - Chemistry and C hemistry - challengeOrdered By: Dr. Akins on 10-12-2022 CO2 [Moles/Vol] 24.0 mmol/L 21.0-32.0 [facility] Urea nitrogen/Creatinine [Mass ratio] 30.2 mg/mg 10-20 [facility] Laboratory - CoagulationOrde red By: Dr. Akins on 10-12-2022 PT Coag (PPP) [Time] 29.3 s 11.7-14.9 [facility] Laboratory - Hematology and Cell countsOrdered By: Dr. Akins on 10-12-2022 Erythrocyte distribution width (RBC) [Entitic vol] 50.2 fL 35.1-43.9 [facility] Erythrocyte distribution width (RBC) [Ratio] 13.8 % 11.6-14.6 [facility] Immature granulocytes/100 WBC (Bld) 0.300 % 0.0-0.9 [facility] Comment on above: IG% - Immature Granu locytes (promyelocytes, myelocytes and metamyelocytes) > 1% indicates that a LEFT SHIFT is Present. MCH (RBC) [Entitic mass] 30.8 pg 27.0-32.0 [facility] Nucleated RBC/100 WBC (Bld) [Ratio] 0 % 0-5 [facility] MCHC Auto (RBC) [Mass/Vol]Or dered By: Dr. Akins on 10-12-2022 MCHC (RBC) [Mass/Vol] 31.2 g/dL 32-36 [facility] No Panel InformationOrdered By: Dr. Akins on 10-12-2022 Troponin I High Sensitivity 31 pg/mL 3.0-54.0 [facility] Comment on above: Please Note: New Bita t Units and Gender Specific Reference Ranges. For more information see Policy Stat Procedure [place] High Sensitivity Troponin (TNIH) and attachments. Estimated Creatinine Clearance Calc 53.83 ml/min [facility] Estimated GFR (MDRD) Amer 90 mL/min >60 [facility] Comment on above: GFR Calc Estimated GFR (MDRD) Non-Af Amer 75 mL/min >60 [facility] Comment on above: Non- GFR Calc Thyroid Stimulating Hormone (TSH) 7.29 uIU/mL 0.358-3.74 [facility] Platelets bldOrdered By: Dr. Akins on 10-12-2022 Platelets (Bld) [#/Vol] 166 10*3/uL 150-450 [facility] Serum or plasma calcium ayanna urement (mass/volume)Ordered By: Dr. Akins on 10-12-2022 Calcium [Mass/Vol] 9.4 mg/dL 8.5-10.1 [facility] Serum or plasma creatinine m easurement (mass/volume)Ordered By: Dr. Akins on 10-12-2022 Creatinine [Mass/Vol] 0.80 mg/dL 0.55-1.02 [facility] Comment on above: The validity of the calculated GFR & GFRAA in patients over 70 years has not been determined. Clinical correlation is essential. Serum or plasma urea nitroge n measurement (mass/volume)Ordered By: Dr. Akins on 10-12-2022 Urea nitrogen [Mass/Vol] 24 mg/dL 7-18 [facility] Thin prep Papanicolaou smear with manual screeningOrdered By: Dr. Akins on 10-12-2022 Thin prep Papanicolaou smear with manual screening 4 5-15 [facility] INR in Blood by Coagulation assayOrdered By: Bart Rosales on 10-07-2022 INR Coag (Bld) [Relative time] 3.0 {INR} [facility] Laboratory - CoagulationOrde red By: Bart Rosales on 10-07-2022 PT Coag (PPP) [Time] 31.1 s 11.7-14.9 [facility] Absolute lymphocyte countOrd ered By: Dr. Donis on 09-08-2022 Lymphocytes Auto (Unsp spec) [#/Vol] 0.73 10*3/uL 0.83-4.51 [facility] Basophil percentageOrdered B y: Dr. Donis on 09-08-2022 Basophils/100 WBC (Bld) 0.7 % 0-1 [facility] Chloride [Moles/Vol] 101 mmol/L 98-107 [facility] Eosinophils/100 WBC (Bld) 0.3 % 0-5 [facility] Glucose [Mass/Vol] 111 mg/dL 74-106 [facility] Comment on above: Fasting Glucose resu lt from 100 to 125 mg/dL suggests IMPAIRED HOMEOSTASIS per A.D.A. criteria. Neutrophils (Bld) [#/Vol] 1.7 10*3/uL 2.0-7.7 [facility] Neutrophils/100 WBC (Bld) 57.2 % 47-70 [facility] Potassium [Moles/Vol] 3.4 mmol/L 3.5-5.1 [facility] Sodium [Moles/Vol] 132 mmol/L 136-145 [facility] WBC (Bld) [#/Vol] 2.9 10*3/uL 4.4-11.0 [facility] Blood erythrocytes count (nu mber/volume)Ordered By: Dr. Donis on 09-08-2022 RBC (Bld) [#/Vol] 3.94 10*6/uL 4.2-5.4 [facility] Blood hemoglobin measurement (mass/volume)Ordered By: Dr. Donis on 09-08-2022 Hemoglobin (Bld) [Mass/Vol] 12.3 g/dL 12.0-15.0 [facility] Blood lymphocytes/100 leukoc ytesOrdered By: Dr. Donis on 09-08-2022 Lymphocytes/100 WBC (Bld) 24.8 % 19-41 [facility] Blood monocytes/100 leukocyt esOrdered By: Dr. Donis on 09-08-2022 Monocytes/100 WBC (Bld) 16.3 % 0-10 [facility] Blood platelet mean volumeOr dered By: Dr. Donis on 09-08-2022 Platelet mean volume (Bld) [Entitic vol] 13.0 fL 6.2-12.0 [facility] Determination of erythrocyte mean corpuscular volume (MCV)Ordered By: Dr. Donis on 09-08-2022 MCV (RBC) [Entitic vol] 96.7 fL 81-99 [facility] Hematocrit Auto (Bld) [Volum e fraction]Ordered By: Dr. Donis on 09-08-2022 Hematocrit (Bld) [Volume fraction] 38.1 % 37-47 [facility] INR in Blood by Coagulation assayOrdered By: Dr. Donis on 09-08-2022 INR Coag (Bld) [Relative time] 1.6 {INR} [facility] Laboratory - Chemistry and C hemistry - challengeOrdered By: Dr. Donis on 09-08-2022 CO2 [Moles/Vol] 22.0 mmol/L 21.0-32.0 [facility] Urea nitrogen/Creatinine [Mass ratio] 14.0 mg/mg 10-20 [facility] Laboratory - CoagulationOrde red By: Dr. Donis on 09-08-2022 PT Coag (PPP) [Time] 18.4 s 11.7-14.9 [facility] Laboratory - Hematology and Cell countsOrdered By: Dr. Donis on 09-08-2022 Erythrocyte distribution width (RBC) [Entitic vol] 47.9 fL 35.1-43.9 [facility] Erythrocyte distribution width (RBC) [Ratio] 13.2 % 11.6-14.6 [facility] Immature granulocytes/100 WBC (Bld) 0.700 % 0.0-0.9 [facility] Comment on above: IG% - Immature Granu locytes (promyelocytes, myelocytes and metamyelocytes) > 1% indicates that a LEFT SHIFT is Present. MCH (RBC) [Entitic mass] 31.2 pg 27.0-32.0 [facility] Nucleated RBC/100 WBC (Bld) [Ratio] 0 % 0-5 [facility] MCHC Auto (RBC) [Mass/Vol]Or dered By: Dr. Donis on 09-08-2022 MCHC (RBC) [Mass/Vol] 32.3 g/dL 32-36 [facility] No Panel InformationOrdered By: Dr. Donis on 09-08-2022 Estimated Creatinine Clearance Calc 43.07 ml/min [facility] Estimated GFR (MDRD) Amer 91 mL/min >60 [facility] Comment on above: GFR Calc Estimated GFR (MDRD) Non-Af Amer 75 mL/min >60 [facility] Comment on above: Non- GFR Calc Troponin I High Sensitivity 8 pg/mL 3.0-54.0 [facility] Comment on above: Please Note: New Bita t Units and Gender Specific Reference Ranges. For more information see Policy Stat Procedure [place] High Sensitivity Troponin (TNIH) and attachments. Platelets bldOrdered By: Dr. Donis on 09-08-2022 Platelets (Bld) [#/Vol] 145 10*3/uL 150-450 [facility] Serum or plasma calcium ayanna urement (mass/volume)Ordered By: Dr. Donis on 09-08-2022 Calcium [Mass/Vol] 8.4 mg/dL 8.5-10.1 [facility] Serum or plasma creatinine m easurement (mass/volume)Ordered By: Dr. Donis on 09-08-2022 Creatinine [Mass/Vol] 0.79 mg/dL 0.55-1.02 [facility] Comment on above: The validity of the calculated GFR & GFRAA in patients over 70 years has not been determined. Clinical correlation is essential. Serum or plasma urea nitroge n measurement (mass/volume)Ordered By: Dr. Donis on 09-08-2022 Urea nitrogen [Mass/Vol] 11 mg/dL 7-18 [facility] Thin prep Papanicolaou smear with manual screeningOrdered By: Dr. Donis on 09-08-2022 Thin prep Papanicolaou smear with manual screening 9 5-15 [facility] No Panel Informationon 09-07 POC SARS CoV-2 Antigen Positive [facility] INR in Blood by Coagulation assayOrdered By: Bart Rosales on 08-20-2022 INR Coag (Bld) [Relative time] 2.6 {INR} [facility] Laboratory - CoagulationOrde red By: Bart Rosales on 08-20-2022 PT Coag (PPP) [Time] 27.4 s 11.7-14.9 [facility] INR in Blood by Coagulation assayOrdered By: Bart Rosales on 07-23-2022 INR Coag (Bld) [Relative time] 2.5 {INR} [facility] Laboratory - CoagulationOrde red By: Bart Rosales on 07-23-2022 PT Coag (PPP) [Time] 26.8 s 11.7-14.9 [facility] INR in Blood by Coagulation assayOrdered By: Bart Rosales on 06-04-2022 INR Coag (Bld) [Relative time] 2.2 {INR} [facility] Laboratory - CoagulationOrde red By: Bart Rosales on 06-04-2022 PT Coag (PPP) [Time] 24.4 s 11.7-14.9 [facility] INR in Blood by Coagulation assayon 05-02-2022 INR Coag (Bld) [Relative time] 2.2 {INR} [facility] Work Phone: Laboratory - Coagulationon 0 05-02-2022 PT Coag (PPP) [Time] 24.0 s 11.7-14.9 [facility] Work Phone: INR in Blood by Coagulation assayon 04-02-2022 INR Coag (Bld) [Relative time] 2.1 {INR} [facility] Work Phone: [phone] Laboratory - Coagulationon 0 04-02-2022 PT Coag (PPP) [Time] 22.8 s 11.7-14.9 [facility] Work Phone: [phone] INR in Blood by Coagulation assayon 02-27-2022 INR Coag (Bld) [Relative time] 2.6 {INR} [facility] Work Phone: Laboratory - Coagulationon 0 02-27-2022 PT Coag (PPP) [Time] 27.6 s 11.7-14.9 [facility] Work Phone: [phone] XR Knee - bilateral 4 Viewso n 01-23-2022 IMPRESSION: Mild degenerative change, right greater than left. A And P Technician: PSCB Transcribe Date/Time: Jan 23 2022 1:19P Dictated by : JANESSA BENTLEY MD This examination was interpreted and the report reviewed and electronically signed by: JANESSA BENTLEY MD on Jan 23 2022 1:23PM EST [id number]_[id number] E_DIVISION OF RADIOLOGY * * *Final Report* * * DATE OF EXAM: Jan 23 2022 11:35AM WOX [id number] - XR KNEE 4V AP/PA/LAT/[facility] / PROCEDURE REASON: multiple diagnoses * [...] joint fluid. [id number]_US E_DIVISION OF RADIOLOGY Provider, [facility] - 01/23/2022 * * *Final Report* * [...] Mild degenerative change, right greater than left. A And P Technician: [facility] Transcribe Date/Time: Jan 23 2022 1:19P Dictated by : JANESSA BENTLEY MD This examination was interpreted and the report reviewed and electronically signed by: JANESSA BENTLEY MD on Jan 23 2022 1:23PM [facility] Radiology Study observation (narrative) [facility] XR Knee - bilateral 4 ViewsO rdered By: [facility] Provider on 01-23-2022 [facility] INR in Blood by Coagulation assayon 01-22-2022 INR Coag (Bld) [Relative time] 2.5 {INR} [facility] Work Phone: Laboratory - Coagulationon 0 01-22-2022 PT Coag (PPP) [Time] 26.2 s 11.7-14.9 [facility] Work Phone: Absolute lymphocyte counton 01-05-2022 Lymphocytes Auto (Unsp spec) [#/Vol] 1.74 10*3/uL 0.83-4.51 [facility] Work Phone: Basophil percentageon 2021 Basophils/100 WBC (Bld) 1.0 % 0-1 [facility] Work Phone: Chloride [Moles/Vol] 110 mmol/L 98-107 [facility] Work Phone: Eosinophils/100 WBC (Bld) 13.4 % 0-5 [facility] Work Phone: Glucose [Mass/Vol] 97 mg/dL 74-106 [facility] Work Phone: Neutrophils (Bld) [#/Vol] 2.5 10*3/uL 2.0-7.7 [facility] Work Phone: Neutrophils/100 WBC (Bld) 43.4 % 47-70 [facility] Work Phone: Potassium [Moles/Vol] 4.1 mmol/L 3.5-5.1 [facility] Work Phone: Sodium [Moles/Vol] 142 mmol/L 136-145 [facility] Work Phone: WBC (Bld) [#/Vol] 5.8 10*3/uL 4.4-11.0 [facility] Work Phone: Blood erythrocytes count (nu mber/volume)on 01-05-2022 RBC (Bld) [#/Vol] 4.06 10*6/uL 4.2-5.4 [facility] Work Phone: Blood hemoglobin measurement (mass/volume)on 01-05-2022 Hemoglobin (Bld) [Mass/Vol] 12.8 g/dL 12.0-15.0 [facility] Work Phone: Blood lymphocytes/100 leukoc yteson 01-05-2022 Lymphocytes/100 WBC (Bld) 29.8 % 19-41 [facility] Work Phone: [phone] Blood monocytes/100 leukocyt eson 01-05-2022 Monocytes/100 WBC (Bld) 12.2 % 0-10 [facility] Work Phone: Blood platelet mean volumeon 01-05-2022 Platelet mean volume (Bld) [Entitic vol] 12.2 fL 6.2-12.0 [facility] Work Phone: Determination of erythrocyte mean corpuscular volume (MCV)on 01-05-2022 MCV (RBC) [Entitic vol] 100.5 fL 81-99 [facility] Work Phone: Hematocrit Auto (Bld) [Volum e fraction]on 01-05-2022 Hematocrit (Bld) [Volume fraction] 40.8 % 37-47 [facility] Work Phone: INR in Blood by Coagulation assayon 01-05-2022 INR Coag (Bld) [Relative time] 1.3 {INR} [facility] Work Phone: Laboratory - Chemistry and C hemistry - challengeon 01-05-2022 CO2 [Moles/Vol] 30.0 mmol/L 21.0-32.0 [facility] Work Phone: Urea nitrogen/Creatinine [Mass ratio] 25.1 mg/mg 10-20 [facility] Work Phone: Laboratory - Coagulationon 0 01-05-2022 PT Coag (PPP) [Time] 16.0 s 11.7-14.9 [facility] Work Phone: Laboratory - Hematology and Cell countson 01-05-2022 Erythrocyte distribution width (RBC) [Entitic vol] 49.3 fL 35.1-43.9 [facility] Work Phone: Erythrocyte distribution width (RBC) [Ratio] 13.2 % 11.6-14.6 [facility] Work Phone: Immature granulocytes/100 WBC (Bld) 0.200 % 0.0-0.9 [facility] Work Phone: Comment on above: IG% - Immature Granu locytes (promyelocytes, myelocytes and metamyelocytes) > 1% indicates that a LEFT SHIFT is Present. MCH (RBC) [Entitic mass] 31.5 pg 27.0-32.0 [facility] Work Phone: Nucleated RBC/100 WBC (Bld) [Ratio] 0 % 0-5 [facility] Work Phone: MCHC Auto (RBC) [Mass/Vol]on 01-05-2022 MCHC (RBC) [Mass/Vol] 31.4 g/dL 32-36 [facility] Work Phone: No Panel Informationon 01-05 Estimated Creatinine Clearance Calc 51.27 ml/min [facility] Work Phone: Estimated GFR (MDRD) Amer 85 mL/min >60 [facility] Work Phone: Comment on above: GFR Calc Estimated GFR (MDRD) Non-Af Amer 71 mL/min >60 [facility] Work Phone: Comment on above: Non- GFR Calc Troponin I High Sensitivity 5 pg/mL 3.0-54.0 [facility] Work Phone: Comment on above: Please Note: New Bita t Units and Gender Specific Reference Ranges. For more information see Policy Stat Procedure [place] High Sensitivity Troponin (TNIH) and attachments. Platelets bldon 01-05-2022 Platelets (Bld) [#/Vol] 188 10*3/uL 150-450 [facility] Work Phone: Serum or plasma calcium ayanna urement (mass/volume)on 01-05-2022 Calcium [Mass/Vol] 9.2 mg/dL 8.5-10.1 [facility] Work Phone: Serum or plasma creatinine m easurement (mass/volume)on 01-05-2022 Creatinine [Mass/Vol] 0.84 mg/dL 0.55-1.02 [facility] Work Phone: Comment on above: The validity of the calculated GFR & GFRAA in patients over 70 years has not been determined. Clinical correlation is essential. Serum or plasma urea nitroge n measurement (mass/volume)on 01-05-2022 Urea nitrogen [Mass/Vol] 21 mg/dL 7- [facility] Work Phone: Thin prep Papanicolaou smear with manual screeningon 01-05-2022 Thin prep Papanicolaou smear with manual screening 2 01-05 [facility] Work Phone: [phone] INR in Blood by Coagulation assayon 01-02-2022 INR Coag (Bld) [Relative time] 2.3 {INR} [facility] Work Phone: Laboratory - Coagulationon 0 01-02-2022 PT Coag (PPP) [Time] 24.6 s 11.7-14.9 [facility] Work Phone: INR in Blood by Coagulation assayon 12-02-2021 INR Coag (Bld) [Relative time] 2.1 {INR} [facility] Work Phone: Laboratory - Coagulationon 0 12-02-2021 PT Coag (PPP) [Time] 23.2 s 11.7-14.9 [facility] Work Phone: Laboratory - Coagulationon 0 11-19-2021 INR Coag (Bld) [Relative time] 1.9 {INR} [facility] Work Phone: Comment on above: Critical Value > 4.0 Whole blood prothrombin time on 11-19-2021 PT Coag (Bld) [Time] 22.4 s 11.7-14.9 [facility] Work Phone: Laboratory - Coagulationon 0 11-12-2021 PT Coag (PPP) [Time] 17.6 s 11.7-14.9 [facility] Work Phone: Qualitative QuantiFERON-TB g old in tube teston 10-08-2021 M. tuberculosis tuberculin stim IFN-g Ql (Bld) 0.07 IU/mL [facility] Work Phone: Thin prep Papanicolaou smear with manual screeningon 10-08-2021 Thin prep Papanicolaou smear with manual screening Comment [facility] Work Phone: Comment on above: The QuantiFERON-TB G old Plus result is determined bysubtracting the Nil value from either TB antigen (Ag) tube.The mitogen tube serves as a control for the test. Thin prep Papanicolaou smear with manual screening 0.10 IU/mL [facility] Work Phone: Thin prep Papanicolaou smear with manual screening 0.08 IU/mL [facility] Work Phone: Thin prep Papanicolaou smear with manual screening > 10.00 IU/mL [facility] Work Phone: Thin prep Papanicolaou smear with manual screening Negative Negative [facility] Work Phone: Comment on above: The specimen receive d for QuantiFERON testing was incubatedby the ordering institution. Specific procedures outlinedin our Directory of Services and in the package insert forthe QuantiFERON Gold (In Tube) test must be followed toenable for proper stimulation of cells for the productionof interferon gamma. Chemiluminescence immunoassaymethodologyPerformed at: [facility] [id number] Director: Braeden Mathis PhD, Phone: [phone] INR in Blood by Coagulation assayon 09-25-2021 INR Coag (Bld) [Relative time] 2.2 {INR} [facility] Work Phone: Laboratory - Coagulationon 0 09-25-2021 PT Coag (PPP) [Time] 23.9 s 11.7-14.9 [facility] Work Phone: XR Knee - right 4 Viewson IMPRESSION: Degenerative changes as discussed A And P Technician: MARIE Transcribe Date/Time: Sep 06 2021 12:52P Dictated by : BACILIO SCHNEIDER DO This examination was interpreted and the report reviewed and electronically signed by: BACILIO SCHNEIDER DO on Sep 06 2021 12:53PM [facility] DIVISION OF RADIOLOGY * * *Final Report* [...] the medial compartment. DIVISION OF RADIOLOGY Provider, [facility] - 09/06/2021 * * *Final Report* * [...] compartment. IMPRESSION IMPRESSION: Degenerative changes as discussed A And P Technician: PSCB Transcribe Date/Time: Sep 06 2021 12:52P Dictated by : BACILIO SCHNEIDER DO This examination was interpreted and the report reviewed and electronically signed by: BACILIO SCHNEIDER DO on Sep 06 2021 12:53PM EST [facility] Radiology Study observation (narrative) [facility] XR Knee - right 4 ViewsOrder ed By: Elsa Provider on 09-06-2021 [facility] INR in Blood by Coagulation assayon 08-28-2021 INR Coag (Bld) [Relative time] 2.9 {INR} [facility] Work Phone: Laboratory - Coagulationon 0 08-28-2021 PT Coag (PPP) [Time] 29.2 s 11.7-14.9 [facility] Work Phone: INR in Blood by Coagulation assayon 08-21-2021 INR Coag (Bld) [Relative time] 1.9 {INR} [facility] Work Phone: Laboratory - Coagulationon 1 PT Coag (PPP) [Time] 21.4 s 11.7-14.9 [facility] Work Phone: CNPNon 04-26-2020 CNPN Telephone ([employer] ) -- CADY BERUMEN ( ) 1945 F Date Time Provider Department 04/26/20 ALEC ARTHUR During your visit today, we recorded the following information about you: Holden Lacey RN, RN 04/26/2020 9:32 AM Signed Patient [...] for advice on treatment of ulcer. Holden Lacey RN, RN 04/26/2020 12:33 PM Signed Spoke to patient and language instructor provider message: continue compression, antibiotic ointment, and [...] Reported on 12/24/2018 COMPOUNDED PRESCRIPTION once daily. [place] MAGNESIUM 250 MG TABLET Take 250 mg [...] by MIMI ROLON MA on 04/26/20 Normal [facility] Office Visiton 05-22-2017 Documentation of current medications (procedure) Done Invalid Interpretation Code [facility] Work Phone: Protein mass conc Done Invalid Interpretation Code [facility] Work Phone: Tobacco smoking status ORIS Never Invalid Interpretation Code [facility] Work Phone: Tobacco smoking status ORIS Never smoker Invalid Interpretation Code [facility] Work Phone: Tobacco use [facility] Never smoker Invalid Interpretation Code [facility] Work Phone: Lab Report: Vitamin D,25 Hyd roxyon 05-15-2017 vitamin D 25-hydroxy, serum 31.6 ng/mL Invalid Interpretation Code [facility] Work Phone: Replaced Document: Vitamin D ,25 Hydroxyon 05-15-2017 Vitamin D 25-OH 31.6 ng/mL Invalid Interpretation Code [facility] Work Phone: Lab Report: Basic Metabolic Profile (BMP)on 05-14-2017 Anion gap 7 mmol/L Invalid Interpretation Code 5-15 [facility] Work Phone: Anion gap molar conc 7 mmol/L 5-15 [facility] Work Phone: [phone] BUN/Creatinine Ratio 24.3 RATIO High 10-20 [facility] Work Phone: [phone] Calcium 8.7 mg/dL Invalid Interpretation Code 8.5-10.1 [facility] Work Phone: [phone] Chloride 107 mmol/L Invalid Interpretation Code 98-107 [facility] Work Phone: [phone] CO2 27.0 mmol/L Invalid Interpretation Code 21.0-32.0 [facility] Work Phone: [phone] Creatinine 0.70 mg/dL Invalid Interpretation Code 0.55-1.02 [facility] Work Phone: [phone] eGFR (non-black) 87 mL/min/{1.73_m2} Invalid Interpretation Code >60 [facility] Work Phone: [phone] eGFR (non-black) 106 mL/min/{1.73_m2} Invalid Interpretation Code >60 [facility] Work Phone: [phone] Glucose 89 mg/dL Invalid Interpretation Code 70-110 [facility] Work Phone: [phone] Potassium 4.2 mmol/L Invalid Interpretation Code 3.5-5.1 [facility] Work Phone: [phone] Sodium 141 mmol/L Invalid Interpretation Code 136-145 [facility] Work Phone: [phone] Urea nitrogen 17 mg/dL Invalid Interpretation Code 7-18 [facility] Work Phone: [phone] Lab Report: CBC-Complete Blo od Cnt No Diffon 05-14-2017 Erythrocyte distribution width Ratio (RBC) 13.9 % 11.6-14.6 [facility] Work Phone: [phone] Erythrocyte distribution width Ratio (RBC) 49.3 fL High 35.1-43.9 [facility] Work Phone: [phone] Erythrocytes (RBC) 4.06 10*6/uL Low 4.2-5.4 [facility] Work Phone: [phone] Hematocrit (HCT) 40.0 % Invalid Interpretation Code 37-47 [facility] Work Phone: [phone] Hematocrit Volume Fraction (Bld) 40.0 % 37-47 [facility] Work Phone: [phone] Hemoglobin (HGB) 12.8 g/dL Invalid Interpretation Code 12.0-15.0 [facility] Work Phone: [phone] MCH 31.5 pg Invalid Interpretation Code 27.0-32.0 [facility] Work Phone: [phone] MCH Entitic mass (RBC) 31.5 pg 27.0-32.0 [facility] Work Phone: [phone] MCHC 32.0 G/GL Invalid Interpretation Code 32-36 [facility] Work Phone: [phone] MCHC mass conc (RBC) 32.0 G/GL 32-36 [facility] Work Phone: [phone] MCV 98.5 fL Invalid Interpretation Code 81-99 [facility] Work Phone: [phone] MCV Entitic volume (RBC) 98.5 fL 81-99 [facility] Work Phone: [phone] Platelet mean volume Entitic volume (Bld) 13.4 fL High 6.2-12.0 [facility] Work Phone: [phone] Platelets 208 10*3/mm3 Invalid Interpretation Code 150-450 [facility] Work Phone: [phone] Platelets #/vol (Bld) 208 10*3/mm3 150-450 [facility] Work Phone: [phone] PMV by Sarbjit 13.4 fL High 6.2-12.0 [facility] Work Phone: [phone] RBC #/vol (Bld) 4.06 10*6/uL Low 4.2-5.4 [facility] Work Phone: [phone] RDW-CA 13.9 % Invalid Interpretation Code 11.6-14.6 [facility] Work Phone: [phone] red blood cell distribution width, size density 49.3 fL High 35.1-43.9 [facility] Work Phone: [phone] WBC #/vol (Bld) 5.4 10*3/uL 4.4-11.0 [facility] Work Phone: [phone] WBC (Leukocytes) 5.4 10*3/uL Invalid Interpretation Code 4.4-11.0 [facility] Work Phone: [phone] Office Visit: New Pt. Visito n 05-14-2017 Documentation of current medications (procedure) Done Invalid Interpretation Code [facility] Work Phone: [phone] Fall risk assessment Yes Invalid Interpretation Code [facility] Work Phone: [phone] Tobacco smoking status NHIS Never Invalid Interpretation Code [facility] Work Phone: [phone] Tobacco use [facility] Never smoker Invalid Interpretation Code [facility] Work Phone: [phone] Replaced Document: Basic Met abolic Profile (BMP)on 05-14-2017 Anion gap 4 molar conc 7 Invalid Interpretation Code 5-15 [facility] Work Phone: [phone] CO2 ppres (BldV) 27.0 mmol/L Invalid Interpretation Code 21.0-32.0 [facility] Work Phone: [phone] EST GFR - AA 106 mL/min Invalid Interpretation Code >60 [facility] Work Phone: [phone] Glucose mass conc 89 mg/dL Invalid Interpretation Code 70-110 [facility] Work Phone: [phone] Replaced Document: CBC-Compl ete Blood Cnt No Diffon 05-14-2017 Erythrocyte distribution width Auto Ratio (RBC) 49.3 fL High 35.1-43.9 [facility] Work Phone: [phone] RDW SD 49.3 fL High 35.1-43.9 [facility] Work Phone: [phone] Office Visiton 12-04-2016 Documentation of current medications (procedure) Done Invalid Interpretation Code [facility] Work Phone: [phone] Tobacco smoking status NHIS Never Invalid Interpretation Code [facility] Work Phone: [phone] Tobacco use [facility] Never smoker Invalid Interpretation Code [facility] Work Phone: [phone] Nerve Block: lower extremity [facility] Vital Signs Date Time Vital Sign Value Performing Clinician Facility 05-18-2025 16:15-0400 Body temperature 97.9 [degF] Bart Rosales [facility] Work Phone: [facility] 05-18-2025 16:15-0400 Diastolic blood pressure 75 mm[Hg] Bart Rosales [facility] Work Phone: [facility] 05-18-2025 16:15-0400 Heart rate 52 /min Bart Rosales [facility] Work Phone: [facility] 05-18-2025 16:15-0400 Respiratory rate 16 /min Bart Rosales [facility] Work Phone: [facility] 05-18-2025 16:15-0400 SaO2% (BldA) [Mass fraction] 97 % Bart Rosales [facility] Work Phone: [facility] 05-18-2025 16:15-0400 Systolic blood pressure 128 mm[Hg] Bart Rosales [facility] Work Phone: [facility] 05-18-2025 12:27-0400 Body height 165.1 cm Bart Rosales [facility] Work Phone: [facility] 05-18-2025 12:27-0400 Body mass index (BMI) [Ratio] 28.7 kg/m2 Bart Rosales [facility] Work Phone: [facility] 05-18-2025 12:27-0400 Body weight 78.2 kg Bart Rosales [facility] Work Phone: [facility] 04-28-2025 18:45-0400 Body mass index (BMI) [Ratio] 28.38 kg/m2 Urmila Coopereregg PA Work Phone: [facility] 04-28-2025 18:45-0400 Body temperature 97.3 [degF] Krislyn Aberegg PA Work Phone: [facility] 04-28-2025 18:45-0400 Body weight 75 kg Krislyn Aberegg PA Work Phone: [facility] 04-28-2025 18:45-0400 Diastolic blood pressure 75 mm[Hg] Krislyn Aberegg PA Work Phone: [facility] 04-28-2025 18:45-0400 Heart rate 60 /min Krislyn Aberegg PA Work Phone: [facility] 04-28-2025 18:45-0400 Respiratory rate 20 /min Krislyn Aberegg PA Work Phone: [facility] 04-28-2025 18:45-0400 SaO2% (BldA) [Mass fraction] 97 % Krislyn Aberegg PA Work Phone: [facility] 04-28-2025 18:45-0400 Systolic blood pressure 141 mm[Hg] Krislyn Aberegg PA Work Phone: [facility] 03-28-2025 11:09-0400 Body height 165.[address] Moon Teixeira MD Work Phone: 0(738)002-671546 [place] [address] 03-28-2025 11:09-0400 Body mass index (BMI) [Ratio] 27.6 kg/m2 Dr. Moon Teixeira MD Work Phone: 4(238)854-977546 [place] [address] 03-28-2025 11:09-0400 Body weight 75.[address] Moon Teixeira MD Work Phone: 1(185)736-612346 [place] [address] 03-28-2025 11:09-0400 Diastolic blood pressure 74 mm[Hg] Dr. Moon Teixeira MD Work Phone: 8(743)297-557646 [place] [address] 03-28-2025 11:09-0400 Heart rate 59 /min Dr. Moon Teixeira MD Work Phone: [facility] 03-28-2025 11:09-0400 Respiratory rate 18 /min Dr. Moon Teixeira MD Work Phone: [facility] 03-28-2025 11:09-0400 Systolic blood pressure 119 mm[Hg] Dr. Moon Teixeira MD Work Phone: [facility] 03-15-2025 18:33-0400 Body temperature 97.9 [degF] Bart Roof DIET AID-C Work Phone: [facility] 03-15-2025 18:33-0400 Diastolic blood pressure 89 mm[Hg] Bart Roof DIET AID-C Work Phone: [facility] 03-15-2025 18:33-0400 Heart rate 65 /min Bart Rosales DIET AID-C Work Phone: [facility] 03-15-2025 18:33-0400 Respiratory rate 19 /min Bart Roof DIET AID-C Work Phone: [facility] 03-15-2025 18:33-0400 SaO2% (BldA) [Mass fraction] 100 % Bart Roof DIET AID-C Work Phone: [facility] 03-15-2025 18:33-0400 Systolic blood pressure 134 mm[Hg] Bart Roof DIET AID-C Work Phone: [facility] 03-15-2025 14:39-0400 Body height 165.1 cm Bart Roof DIET AID-C Work Phone: [facility] 01-26-2025 11:29-0400 Body mass index (BMI) [Ratio] 28.84 kg/m2 José Miguel Older [employer] Work Phone: [facility] 01-26-2025 11:29-0400 Body weight 76.2 kg José Miguel Older [employer] Work Phone: [facility] 01-26-2025 11:29-0400 Diastolic blood pressure 68 mm[Hg] José Miguel Older [employer] Work Phone: [facility] 01-26-2025 11:29-0400 Heart rate 57 /min José Miguel Older [employer]EAR[employer] Work Phone: [facility] 01-26-2025 11:29-0400 SaO2% (BldA) [Mass fraction] 95 % José Miguel Older [employer]EAR[employer] Work Phone: [facility] 01-26-2025 11:29-0400 Systolic blood pressure 112 mm[Hg] José Miguel Older [employer]EAR[employer] Work Phone: [facility] 01-21-2025 20:33-0400 Body mass index (BMI) [Ratio] 24.5 kg/m2 Bart SALDANA Work Phone: [facility] 01-17-2025 14:47-0400 Diastolic blood pressure 55 mm[Hg] Alec Arthur DO Work Phone: [facility] 01-17-2025 14:47-0400 Heart rate 56 /min Alec Arthur DO Work Phone: [facility] 01-17-2025 14:47-0400 SaO2% (BldA) [Mass fraction] 96 % Alec Arthur DO Work Phone: [facility] 01-17-2025 14:47-0400 Systolic blood pressure 126 mm[Hg] Alec Arthur DO Work Phone: [facility] 12-30-2024 13:45-0400 Body height 162.6 cm Maria De Jesus Desouza [employer] Work Phone: [facility] 12-30-2024 13:45-0400 Body mass index (BMI) [Ratio] 28.67 kg/m2 Maria De Jesus Desouza [employer]EAR[employer] Work Phone: [facility] 12-30-2024 13:45-0400 Body weight 75.75 kg Maria De Jesus Desouza [employer]AR[employer] Work Phone: [facility] 12-30-2024 13:45-0400 Diastolic blood pressure 57 mm[Hg] Maria De Jesus Lyly [employer] Work Phone: [facility] 12-30-2024 13:45-0400 Heart rate 51 /min Maria De Jesus Lyly [employer] Work Phone: [facility] 12-30-2024 13:45-0400 Systolic blood pressure 141 mm[Hg] Maria De Jesus Lyly [employer] Work Phone: [facility] 11-28-2024 17:00-0400 Diastolic blood pressure 73 mm[Hg] Bart Rosales DIET AID-C Work Phone: [facility] 11-28-2024 17:00-0400 Heart rate 61 /min Bart Rosales DIET AID-C Work Phone: [facility] 11-28-2024 17:00-0400 Respiratory rate 18 /min Bart Rosales DIET AID-C Work Phone: [facility] 11-28-2024 17:00-0400 SaO2% (BldA) [Mass fraction] 97 % Bart Rosales DIET AID-C Work Phone: [facility] 11-28-2024 17:00-0400 Systolic blood pressure 161 mm[Hg] Bart Rosales DIET AID-C Work Phone: [facility] 11-28-2024 14:30-0400 Body mass index (BMI) [Ratio] 28 kg/m2 Bart Rosales DIET AID-C Work Phone: [facility] 11-28-2024 14:30-0400 Body temperature 97.8 [degF] Bart Rosales DIET AID-C Work Phone: [facility] 11-28-2024 14:30-0400 Body weight 76.3 kg Bart Rosales DIET AID-C Work Phone: [facility] 11-28-2024 14:25-0400 Body height 165.1 cm Bart Rosales DIET AID-C Work Phone: [facility] 11-21-2024 21:42-0400 Body mass index (BMI) [Ratio] 24.5 kg/m2 Dr. Moon Teixeira MD Work Phone: [facility] 10-26-2024 13:40-0500 Body height 163 cm Moon Teixeira MD Work Phone: [facility] 10-26-2024 13:40-0500 Body mass index (BMI) [Ratio] 28.58 kg/m2 Moon Teixeira MD Work Phone: [facility] 10-26-2024 13:40-0500 Body weight 75.93 kg Moon Teixeira MD Work Phone: [facility] 10-26-2024 13:40-0500 Diastolic blood pressure 71 mm[Hg] Moon Teixeira MD Work Phone: [facility] 10-26-2024 13:40-0500 Heart rate 69 /min Moon Teixeira MD Work Phone: [facility] 10-26-2024 13:40-0500 SaO2% (BldA) [Mass fraction] 96 % Moon Teixeira MD Work Phone: [facility] 10-26-2024 13:40-0500 Systolic blood pressure 106 mm[Hg] Moon Teixeira MD Work Phone: [facility] 10-21-2024 11:18-0500 Body mass index (BMI) [Ratio] 27.12 kg/m2 José Miguel Older [employer]AR[employer] Work Phone: [facility] 10-21-2024 11:18-0500 Body weight 73.94 kg José Miguel Older [employer] Work Phone: [facility] 10-21-2024 11:18-0500 Diastolic blood pressure 80 mm[Hg] José Miguel Older [employer]AR[employer] Work Phone: [facility] 10-21-2024 11:18-0500 Heart rate 60 /min José Miguel Older [employer]EAR[employer] Work Phone: [facility] 10-21-2024 11:18-0500 Respiratory rate 16 /min José Miguel Older [employer]EAR[employer] Work Phone: [facility] 10-21-2024 11:18-0500 Systolic blood pressure 128 mm[Hg] José Miguel Saldaña APRN.EARLY CHILDHOOD Work Phone: [facility] 10-13-2024 11:31-0500 Body height 165.1 cm Bart Rosales DIET AID-C Work Phone: [facility] 10-13-2024 11:31-0500 Body mass index (BMI) [Ratio] 27.6 kg/m2 Bart Roof DIET AID-C Work Phone: [facility] 10-13-2024 11:31-0500 Body weight 75.29 kg Bart Roof DIET AID-C Work Phone: [facility] 10-13-2024 11:31-0500 Diastolic blood pressure 82 mm[Hg] Bart Roof DIET AID-C Work Phone: [facility] 10-13-2024 11:31-0500 Heart rate 54 /min Bart Roof DIET AID-C Work Phone: [facility] 10-13-2024 11:31-0500 Respiratory rate 20 /min Bart Roof DIET AID-C Work Phone: [facility] 10-13-2024 11:31-0500 SaO2% (BldA) [Mass fraction] 94 % Bart Roof DIET AID-C Work Phone: [facility] 10-13-2024 11:31-0500 Systolic blood pressure 120 mm[Hg] Bart Roof DIET AID-C Work Phone: [facility] 09-26-2024 15:00-0500 Diastolic blood pressure 94 mm[Hg] Bart Roof DIET AID-C Work Phone: [facility] 09-26-2024 15:00-0500 Heart rate 65 /min Bart Roof DIET AID-C Work Phone: [facility] 09-26-2024 15:00-0500 Respiratory rate 13 /min Bart Roof DIET AID-C Work Phone: [facility] 09-26-2024 15:00-0500 SaO2% (BldA) [Mass fraction] 97 % Bart Rosales DIET AID-C Work Phone: [facility] 09-26-2024 15:00-0500 Systolic blood pressure 154 mm[Hg] Bart Rosales DIET AID-C Work Phone: [facility] 09-26-2024 11:40-0500 Body mass index (BMI) [Ratio] 29 kg/m2 Bart Rosales DIET AID-C Work Phone: [facility] 09-26-2024 11:40-0500 Body temperature 97.9 [degF] Bart Rosales DIET AID-C Work Phone: [facility] 09-26-2024 11:40-0500 Body weight 79.1 kg Bart Rosales DIET AID-C Work Phone: [facility] 09-23-2024 21:04-0500 Body mass index (BMI) [Ratio] 24.5 kg/m2 Bart Rosales DIET AID-C Work Phone: [facility] 08-24-2024 03:45-0500 Body mass index (BMI) [Ratio] 24.5 kg/m2 Bart Rosales DIET AID-C Work Phone: [facility] 07-26-2024 09:09-0500 Body height 165.1 cm Yaa Bogner PA-C Work Phone: [facility] 07-26-2024 09:09-0500 Body mass index (BMI) [Ratio] 27.11 kg/m2 Yaa Bogner PA-C Work Phone: [facility] 07-26-2024 09:09-0500 Body weight 73.9 kg Yaa Bogner PA-C Work Phone: [facility] 07-26-2024 09:09-0500 Diastolic blood pressure 72 mm[Hg] Yaa Bogner PA-C Work Phone: [facility] 07-26-2024 09:09-0500 Heart rate 67 /min Yaa Bogner PA-C Work Phone: [facility] 07-26-2024 09:09-0500 Respiratory rate 12 /min Yaa Bogner PA-C Work Phone: [facility] 07-26-2024 09:09-0500 SaO2% (BldA) [Mass fraction] 99 % Yaa Bogner PA-C Work Phone: [facility] 07-26-2024 09:09-0500 Systolic blood pressure 124 mm[Hg] Yaa Bogner PA-C Work Phone: [facility] 06-27-2024 10:12-0500 Body height 165.1 cm Moon Teixeira MD Work Phone: [facility] 06-27-2024 10:12-0500 Body mass index (BMI) [Ratio] 26.79 kg/m2 Moon Teixeira MD Work Phone: [facility] 06-27-2024 10:12-0500 Body weight 73.03 kg Moon Teixeira MD Work Phone: [facility] 06-27-2024 10:12-0500 Diastolic blood pressure 72 mm[Hg] Moon Teixeira MD Work Phone: [facility] 06-27-2024 10:12-0500 Heart rate 53 /min Moon Teixeira MD Work Phone: [facility] 06-27-2024 10:12-0500 Respiratory rate 12 /min Moon Teixeira MD Work Phone: [facility] 06-27-2024 10:12-0500 SaO2% (BldA) [Mass fraction] 94 % Moon Teixeira MD Work Phone: [facility] 06-27-2024 10:12-0500 Systolic blood pressure 130 mm[Hg] Moon Teixeira MD Work Phone: [facility] 05-06-2024 13:53-0400 Body mass index (BMI) [Ratio] 26.56 kg/m2 Moon Teixeira MD Work Phone: [facility] 05-06-2024 13:53-0400 Body weight 72.4 kg Moon Teixeira MD Work Phone: [facility] 05-06-2024 13:53-0400 Diastolic blood pressure 76 mm[Hg] Moon Teixeira MD Work Phone: [facility] 05-06-2024 13:53-0400 Heart rate 63 /min Moon Teixeira MD Work Phone: [facility] 05-06-2024 13:53-0400 SaO2% (BldA) [Mass fraction] 98 % Moon Teixeira MD Work Phone: [facility] 05-06-2024 13:53-0400 Systolic blood pressure 110 mm[Hg] Moon Teixeira MD Work Phone: [facility] 04-24-2024 01:59-0400 Body mass index (BMI) [Ratio] 24.5 kg/m2 [facility] Work Phone: [facility] 04-22-2024 16:06-0400 Body mass index (BMI) [Ratio] 26.63 kg/m2 Moon Teixeira MD Work Phone: [facility] 04-22-2024 16:06-0400 Body weight 72.58 kg Moon Teixeira MD Work Phone: [facility] 04-22-2024 16:06-0400 Diastolic blood pressure 78 mm[Hg] Moon Teixeira MD Work Phone: [facility] 04-22-2024 16:06-0400 Heart rate 71 /min Moon Teixeira MD Work Phone: [facility] 04-22-2024 16:06-0400 SaO2% (BldA) [Mass fraction] 97 % Moon Teixeira MD Work Phone: [facility] 04-22-2024 16:06-0400 Systolic blood pressure 112 mm[Hg] Moon Teixeira MD Work Phone: [facility] 04-05-2024 09:20-0400 Diastolic blood pressure 64 mm[Hg] Moon Teixeira MD Work Phone: [facility] 04-05-2024 09:20-0400 Heart rate 62 /min Moon Teixeira MD Work Phone: [facility] 04-05-2024 09:20-0400 Respiratory rate 16 /min Moon Teixeira MD Work Phone: [facility] 04-05-2024 09:20-0400 Systolic blood pressure 100 mm[Hg] Moon Teixeira MD Work Phone: [facility] 02-10-2024 13:26-0400 Body mass index (BMI) [Ratio] 25.96 kg/m2 Nirali Almanza PA-C Work Phone: [facility] 02-10-2024 13:26-0400 Body temperature 97.2 [degF] Nirali Almanza PA-C Work Phone: [facility] 02-10-2024 13:26-0400 Body weight 70.76 kg Nirali Almanza PA-C Work Phone: [facility] 02-10-2024 13:26-0400 Diastolic blood pressure 80 mm[Hg] Nirali Almanza PA-C Work Phone: [facility] 02-10-2024 13:26-0400 Heart rate 56 /min Nirali Almanza PA-C Work Phone: [facility] 02-10-2024 13:26-0400 Respiratory rate 16 /min Nirali Almanza PA-C Work Phone: [facility] 02-10-2024 13:26-0400 Systolic blood pressure 118 mm[Hg] Nirali Almanza PA-C Work Phone: [facility] 11-21-2023 21:26-0400 Body mass index (BMI) [Ratio] 24.5 kg/m2 PA ZAIRE Dale PA Work Phone: [facility] 11-11-2023 09:28-0400 Body height 165.1 cm PA ZAIRE Dale PA Work Phone: [facility] 11-11-2023 09:28-0400 Body mass index (BMI) [Ratio] 26.2 kg/m2 PA NA Dale PA Work Phone: [facility] 11-11-2023 09:28-0400 Body weight 71.66 kg PA NA Dale PA Work Phone: [facility] 11-11-2023 09:28-0400 Diastolic blood pressure 84 mm[Hg] PA NA Dale PA Work Phone: [facility] 11-11-2023 09:28-0400 Heart rate 56 /min PA NA Dale PA Work Phone: [facility] 11-11-2023 09:28-0400 Respiratory rate 18 /min PA NA Dale PA Work Phone: [facility] 11-11-2023 09:28-0400 SaO2% (BldA) [Mass fraction] 99 % PA NA Dale PA Work Phone: [facility] 11-11-2023 09:28-0400 Systolic blood pressure 128 mm[Hg] PA NA Dale PA Work Phone: [facility] 09-23-2023 21:33-0500 Body mass index (BMI) [Ratio] 24.5 kg/m2 PA NA Dale PA Work Phone: [facility] 08-23-2023 20:47-0500 Body mass index (BMI) [Ratio] 24.5 kg/m2 PA NA Dale PA Work Phone: [facility] 08-09-2023 15:03-0500 Body mass index (BMI) [Ratio] 26.4 kg/m2 [facility] 08-09-2023 15:03-0500 Body weight 72.07 kg [facility] 08-09-2023 15:00-0500 Body height 165.1 cm [facility] 08-09-2023 15:00-0500 Body temperature 96.3 [degF] [facility] 08-09-2023 15:00-0500 Diastolic blood pressure 84 mm[Hg] [facility] 08-09-2023 15:00-0500 Heart rate 68 /min [facility] 08-09-2023 15:00-0500 Respiratory rate 18 /min [facility] 08-09-2023 15:00-0500 SaO2% (BldA) [Mass fraction] 99 % [facility] 08-09-2023 15:00-0500 Systolic blood pressure 153 mm[Hg] [facility] 07-24-2023 02:58-0500 Body mass index (BMI) [Ratio] 24.5 kg/m2 [facility] 07-15-2023 09:58-0500 Diastolic blood pressure 88 mm[Hg] Patrizia Alba [employer] Work Phone: [facility] 07-15-2023 09:58-0500 Systolic blood pressure 140 mm[Hg] Patrizia Alba [employer]AR[employer] Work Phone: [facility] 07-15-2023 09:56-0500 Body weight 69.85 kg Patrizia Alba [employer]AR[employer] Work Phone: [facility] 07-15-2023 09:56-0500 Heart rate 70 /min Patrizia Alba [employer]AR[employer] Work Phone: [facility] 07-15-2023 09:56-0500 SaO2% (BldA) [Mass fraction] 91 % Patrizia Alba [employer]EARLY CH[employer]DH[employer] Work Phone: [facility] 06-23-2023 22:41-0400 Body mass index (BMI) [Ratio] 24.5 kg/m2 [facility] 06-09-2023 14:15-0400 Body weight 69.85 kg NA Dale PA-C Work Phone: [facility] 06-09-2023 14:15-0400 Diastolic blood pressure 70 mm[Hg] NA Dale PA-C Work Phone: [facility] 06-09-2023 14:15-0400 Heart rate 65 /min NA Dale PA-C Work Phone: [facility] 06-09-2023 14:15-0400 Respiratory rate 18 /min NA Dale PA-C Work Phone: [facility] 06-09-2023 14:15-0400 SaO2% (BldA) [Mass fraction] 98 % NA Dale PA-C Work Phone: [facility] 06-09-2023 14:15-0400 Systolic blood pressure 128 mm[Hg] NA Dale PA-C Work Phone: [facility] 05-24-2023 00:45-0400 Body mass index (BMI) [Ratio] 24.5 kg/m2 [facility] 04-23-2023 21:48-0400 Body mass index (BMI) [Ratio] 24.5 kg/m2 [facility] 03-23-2023 23:35-0400 Body mass index (BMI) [Ratio] 24.5 kg/m2 [facility] 03-10-2023 11:28-0400 Body height 165.1 cm Mynor Shirley MD Work Phone: [facility] 03-10-2023 11:28-0400 Body weight 69.85 kg Mynor Shirley MD Work Phone: [facility] 03-10-2023 11:28-0400 Diastolic blood pressure 66 mm[Hg] Mynor Shirley MD Work Phone: [facility] 03-10-2023 11:28-0400 Heart rate 63 /min Mynor Shirley MD Work Phone: [facility] 03-10-2023 11:28-0400 Systolic blood pressure 136 mm[Hg] Mynor Shirley MD Work Phone: [facility] 02-20-2023 21:03-0400 Body mass index (BMI) [Ratio] 24.5 kg/m2 PA NA Dale PA Work Phone: [facility] 01-22-2023 08:06-0400 Body mass index (BMI) [Ratio] 24.5 kg/m2 PA NA Dale PA Work Phone: [facility] 12-30-2022 15:20-0400 Body weight 70.76 kg NA Dale PA-C Work Phone: [facility] 12-30-2022 15:20-0400 Diastolic blood pressure 80 mm[Hg] NA Dale PA-C Work Phone: [facility] 12-30-2022 15:20-0400 Heart rate 59 /min NA Dale PA-C Work Phone: [facility] 12-30-2022 15:20-0400 Respiratory rate 16 /min NA Dale PA-C Work Phone: [facility] 12-30-2022 15:20-0400 SaO2% (BldA) [Mass fraction] 97 % NA Dale PA-C Work Phone: [facility] 12-30-2022 15:20-0400 Systolic blood pressure 118 mm[Hg] NA Dale PA-C Work Phone: [facility] 12-21-2022 00:28-0400 Body mass index (BMI) [Ratio] 24.5 kg/m2 PA NA Dale PA Work Phone: [facility] 12-08-2022 09:16-0400 Body weight 70.31 kg NA Dale PA-C Work Phone: [facility] 12-08-2022 09:16-0400 Diastolic blood pressure 88 mm[Hg] NA Dale PA-C Work Phone: [facility] 12-08-2022 09:16-0400 Heart rate 60 /min NA Dale PA-C Work Phone: [facility] 12-08-2022 09:16-0400 Respiratory rate 16 /min NA Dale PA-C Work Phone: [facility] 12-08-2022 09:16-0400 SaO2% (BldA) [Mass fraction] 97 % NA Dale PA-C Work Phone: [facility] 12-08-2022 09:16-0400 Systolic blood pressure 130 mm[Hg] NA Dale PA-C Work Phone: [facility] 11-21-2022 21:24-0400 Body mass index (BMI) [Ratio] 24.5 kg/m2 PA NA Dale PA Work Phone: [facility] 11-05-2022 14:29-0400 Body height 165.1 cm PA NA Dale PA Work Phone: [facility] 11-05-2022 14:29-0400 Body mass index (BMI) [Ratio] 25.9 kg/m2 PA NA Dale PA Work Phone: [facility] 11-05-2022 14:29-0400 Body weight 70.76 kg PA NA Dale PA Work Phone: [facility] 11-05-2022 14:29-0400 Diastolic blood pressure 79 mm[Hg] PA NA Dale PA Work Phone: [facility] 11-05-2022 14:29-0400 Heart rate 63 /min PA NA Dale PA Work Phone: [facility] 11-05-2022 14:29-0400 Respiratory rate 18 /min PA NA Dale PA Work Phone: [facility] 11-05-2022 14:29-0400 SaO2% (BldA) [Mass fraction] 96 % PA NA Dale PA Work Phone: [facility] 11-05-2022 14:29-0400 Systolic blood pressure 121 mm[Hg] PA NA Dale PA Work Phone: [facility] 10-21-2022 19:48-0500 Body mass index (BMI) [Ratio] 24.5 kg/m2 PA NA Dale PA Work Phone: [facility] 10-14-2022 00:03-0500 Diastolic blood pressure 80 mm[Hg] PA NA Dale PA Work Phone: [facility] 10-14-2022 00:03-0500 Heart rate 78 /min PA NA Dale PA Work Phone: 6(026)302-522348 [place] [address] 10-14-2022 00:03-0500 Systolic blood pressure 159 mm[Hg] PA NA Dale PA Work Phone: 6(060)606-693248 [place] [address] 10-13-2022 22:59-0500 Body height 165.1 cm PA NA Dale PA Work Phone: 5(342)478-793548 [place] [address] 10-13-2022 22:59-0500 Body mass index (BMI) [Ratio] 26.6 kg/m2 PA NA Dale PA Work Phone: 8(037)291-098648 [place] [address] 10-13-2022 22:59-0500 Body temperature 98.6 [degF] PA NA Dale PA Work Phone: 2(513)898-619248 [place] [address] 10-13-2022 22:59-0500 Body weight 72.7 kg PA NA Dale PA Work Phone: 8(710)429-088048 [place] [address] 10-13-2022 22:59-0500 Respiratory rate 20 /min PA NA Dale PA Work Phone: 1(056)509-349148 [place] [address] 10-13-2022 22:59-0500 SaO2% (BldA) [Mass fraction] 100 % PA NA Dale PA Work Phone: 4(865)150-869048 [place] [address] 10-13-2022 15:30-0500 Body temperature 98.2 [degF] PA NA Dale PA Work Phone: 0(434)651-125448 [place] [address] 10-13-2022 15:30-0500 Diastolic blood pressure 79 mm[Hg] PA NA Dale PA Work Phone: 8(814)050-261148 [place] [address] 10-13-2022 15:30-0500 Heart rate 64 /min PA NA Dale PA Work Phone: 0(473)601-961648 [place] [address] 10-13-2022 15:30-0500 Respiratory rate 16 /min PA NA Dale PA Work Phone: 4(524)958-610148 [place] [address] 10-13-2022 15:30-0500 SaO2% (BldA) [Mass fraction] 96 % PA NA Dale PA Work Phone: 9(654)305-065648 [place] [address] 10-13-2022 15:30-0500 Systolic blood pressure 143 mm[Hg] PA NA Dale PA Work Phone: 4(953)216-857746 [place] [address] 10-12-2022 13:40-0500 Body height 165.1 cm PA NA Dale PA Work Phone: 7(664)685-807848 [place] [address] 10-12-2022 13:40-0500 Body mass index (BMI) [Ratio] 25 kg/m2 PA NA Dale PA Work Phone: 0(618)246-776046 [place] [address] 10-12-2022 13:40-0500 Body weight 68.03 kg PA NA Dale PA Work Phone: 6(726)945-939448 [place] [address] 10-12-2022 10:06-0500 Body temperature 97.8 [degF] PA NA Dale PA Work Phone: 8(247)250-064048 [place] [address] 10-12-2022 10:06-0500 Diastolic blood pressure 68 mm[Hg] PA NA Dale PA Work Phone: 1(045)042-479146 [place] [address] 10-12-2022 10:06-0500 Heart rate 60 /min PA NA Dale PA Work Phone: 6(036)877-749846 [place] [address] 10-12-2022 10:06-0500 Respiratory rate 20 /min PA NA Dale PA Work Phone: 3(117)377-981646 [place] [address] 10-12-2022 10:06-0500 SaO2% (BldA) [Mass fraction] 94 % PA NA Dale PA Work Phone: 2(935)418-259046 [place] [address] 10-12-2022 10:06-0500 Systolic blood pressure 137 mm[Hg] PA NA Dale PA Work Phone: 1(996)462-076346 [place] [address] 10-12-2022 04:03-0500 Body height 165.1 cm PA NA Dale PA Work Phone: 3(774)883-312546 [place] [address] 10-12-2022 04:03-0500 Body mass index (BMI) [Ratio] 27.1 kg/m2 PA NA Dale PA Work Phone: 8([phone])[phone] [place] [address] 10-12-2022 04:03-0500 Body weight 73.8 kg PA NA Dale PA Work Phone: [facility] 09-08-2022 13:44-0500 Diastolic blood pressure 63 mm[Hg] PA NA Dale PA Work Phone: 1(676)[phone] [place] [address] 09-08-2022 13:44-0500 Heart rate 69 /min PA NA Dale PA Work Phone: 3(038)[phone] [place] [address] 09-08-2022 13:44-0500 Respiratory rate 14 /min PA NA Dale PA Work Phone: 1(443)[phone] [address] [place] [address] 09-08-2022 13:44-0500 SaO2% (BldA) [Mass fraction] 95 % PA NA Dale PA Work Phone: 5(778)774-984446 [place] [address] 09-08-2022 13:44-0500 Systolic blood pressure 116 mm[Hg] PA NA Dale PA Work Phone: 7(383)440-237248 [place] [address] 09-08-2022 13:05-0500 Body temperature 99.8 [degF] PA NA Dale PA Work Phone: 0(085)807-034148 [place] [address] 09-08-2022 11:31-0500 Body height 165.1 cm PA NA Dale PA Work Phone: 3(495)344-275848 [place] [address] 09-08-2022 11:31-0500 Body mass index (BMI) [Ratio] 25 kg/m2 PA NA Dale PA Work Phone: 3(346)110-732748 [place] [address] 09-08-2022 11:31-0500 Body weight 68.03 kg PA NA Dale PA Work Phone: 4(165)526-472548 [place] [address] 09-07-2022 08:24-0500 Body mass index (BMI) [Ratio] 26.1 kg/m2 PA NA Dale PA Work Phone: 6(326)909-163848 [place] [address] 09-07-2022 08:24-0500 Body temperature 98.7 [degF] PA NA Dale PA Work Phone: 8(736)586-155746 [place] [address] 09-07-2022 08:24-0500 Body weight 71.21 kg PA NA Dale PA Work Phone: 9(650)430-143846 [place] [address] 09-07-2022 08:24-0500 Diastolic blood pressure 80 mm[Hg] PA NA Dale PA Work Phone: [facility] 09-07-2022 08:24-0500 Heart rate 74 /min PA NA Dale PA Work Phone: 0(574)707-453146 [place] [address] 09-07-2022 08:24-0500 Respiratory rate 17 /min PA NA Dale PA Work Phone: 6(979)155-511146 [place] [address] 09-07-2022 08:24-0500 SaO2% (BldA) [Mass fraction] 93 % PA NA Dale PA Work Phone: 9(161)462-573646 [place] [address] 09-07-2022 08:24-0500 Systolic blood pressure 132 mm[Hg] PA NA Dale PA Work Phone: 1(947)289-000646 [place] [address] 08-23-2022 22:46-0500 Body mass index (BMI) [Ratio] 24.5 kg/m2 PA NA Dale PA Work Phone: 0(765)117-249846 [place] [address] 07-23-2022 22:39-0500 Body mass index (BMI) [Ratio] 24.5 kg/m2 PA NA Dale PA Work Phone: 8(526)319-581246 [place] [address] 06-24-2022 09:58-0400 Body mass index (BMI) [Ratio] 24.5 kg/m2 PA NA Dale PA Work Phone: 5(110)284-531946 [place] [address] 06-04-2022 11:42-0400 Body height 165.1 cm PA NA Dale PA Work Phone: [facility] Work Phone: 06-04-2022 11:42-0400 Body mass index (BMI) [Ratio] 27.1 kg/m2 PA NA Dale PA Work Phone: 3(253)159-486546 [place] [address] 06-04-2022 11:42-0400 Body weight 73.93 kg PA NA Dale PA Work Phone: [facility] 06-04-2022 11:42-0400 Diastolic blood pressure 74 mm[Hg] PA NA Dale PA Work Phone: [facility] 06-04-2022 11:42-0400 Heart rate 61 /min PA NA Dale PA Work Phone: [facility] 06-04-2022 11:42-0400 Respiratory rate 18 /min PA NA Dale PA Work Phone: [facility] 06-04-2022 11:42-0400 SaO2% (BldA) [Mass fraction] 96 % PA NA Dale PA Work Phone: [facility] 06-04-2022 11:42-0400 Systolic blood pressure 124 mm[Hg] PA NA Dale PA Work Phone: [facility] 05-23-2022 19:37-0400 Body mass index (BMI) [Ratio] 24.5 kg/m2 PA NA Dale PA Work Phone: [facility] 04-23-2022 22:22-0400 Body mass index (BMI) [Ratio] 24.5 kg/m2 [facility] Work Phone: 03-23-2022 01:58-0400 Body mass index (BMI) [Ratio] 24.5 kg/m2 [facility] Work Phone: 02-21-2022 06:42-0400 Body mass index (BMI) [Ratio] 24.5 kg/m2 Dr. Chaitanya Estrella III Work Phone: [facility] Work Phone: 01-21-2022 20:14-0400 Body mass index (BMI) [Ratio] 24.5 kg/m2 Dr. Chaitanya Estrella III Work Phone: [facility] Work Phone: 01-07-2022 16:06-0400 Body weight 73.03 kg NA Dale PA-C Work Phone: [facility] 01-07-2022 16:06-0400 Diastolic blood pressure 72 mm[Hg] NA Dale PA-C Work Phone: [facility] 01-07-2022 16:06-0400 Heart rate 61 /min NA Dale PA-C Work Phone: [facility] 01-07-2022 16:06-0400 SaO2% (BldA) [Mass fraction] 95 % NA Dale PA-C Work Phone: [facility] 01-07-2022 16:06-0400 Systolic blood pressure 120 mm[Hg] NA Dale PA-C Work Phone: [facility] 01-05-2022 07:14-0400 Body temperature 97.4 [degF] Dr. Chaitanya Estrella III Work Phone: [facility] Work Phone: 01-05-2022 07:14-0400 Diastolic blood pressure 75 mm[Hg] Dr. Chaitanya Estrella III Work Phone: [facility] Work Phone: 01-05-2022 07:14-0400 Heart rate 58 /min Dr. Chaitanya Estrella III Work Phone: [facility] Work Phone: 01-05-2022 07:14-0400 Respiratory rate 14 /min Dr. Chaitanya Estrella III Work Phone: [facility] Work Phone: 01-05-2022 07:14-0400 SaO2% (BldA) [Mass fraction] 98 % Dr. Chaitanya Estrella III Work Phone: [facility] Work Phone: 01-05-2022 07:14-0400 Systolic blood pressure 123 mm[Hg] Dr. Chaitanya Estrella III Work Phone: [facility] Work Phone: 01-05-2022 05:35-0400 Body height 165.[address] Chaitanya Estrella III Work Phone: [facility] Work Phone: 01-05-2022 05:35-0400 Body mass index (BMI) [Ratio] 27.3 kg/m2 Dr. Chaitanya Estrella III Work Phone: [facility] Work Phone: 01-05-2022 05:35-0400 Body weight 74.[address] Chaitanya Estrella III Work Phone: [facility] Work Phone: 12-22-2021 02:39-0400 Body mass index (BMI) [Ratio] 24.5 kg/m2 Dr. Chaitanya Estrella III Work Phone: [facility] Work Phone: 12-17-2021 13:51-0400 Body mass index (BMI) [Ratio] 25.4 kg/m2 Dr. Chaitanya Estrella III Work Phone: [facility] Work Phone: 12-17-2021 13:51-0400 Body temperature 98.6 [degF] Dr. Chaitanya Estrella III Work Phone: [facility] Work Phone: 12-17-2021 13:51-0400 Body weight 71.[address] Chaitanya Estrella III Work Phone: [facility] Work Phone: 12-17-2021 13:51-0400 Diastolic blood pressure 73 mm[Hg] Dr. Chaitanya Estrella III Work Phone: [facility] Work Phone: 12-17-2021 13:51-0400 Heart rate 60 /min Dr. Chaitanya Estrella III Work Phone: [facility] Work Phone: 12-17-2021 13:51-0400 Respiratory rate 18 /min Dr. Chaitanya Estrella III Work Phone: [facility] Work Phone: 12-17-2021 13:51-0400 SaO2% (BldA) [Mass fraction] 98 % Dr. Chaitanya Estrella III Work Phone: [facility] Work Phone: 12-17-2021 13:51-0400 Systolic blood pressure 141 mm[Hg] Dr. Chaitanya Estrella III Work Phone: [facility] Work Phone: 12-17-2021 13:51-0400 Body height 167.[address] Chaitanya Estrella III Work Phone: [facility] Work Phone: 12-17-2021 13:51-0400 Body mass index (BMI) [Ratio] 25.4 kg/m2 Dr. Chaitanya Estrella III Work Phone: [facility] Work Phone: 12-17-2021 13:51-0400 Body temperature 98.6 [degF] Dr. Chaitanya Estrella III Work Phone: [facility] Work Phone: 12-17-2021 13:51-0400 Body weight 71.[address] Chaitanya Estrella III Work Phone: [facility] Work Phone: 12-17-2021 13:51-0400 Diastolic blood pressure 73 mm[Hg] Dr. Chaitanya Estrella III Work Phone: [facility] Work Phone: 12-17-2021 13:51-0400 Heart rate 60 /min Dr. Chaitanya Estrella III Work Phone: [facility] Work Phone: 12-17-2021 13:51-0400 Respiratory rate 18 /min Dr. Chaitanya Estrella III Work Phone: [facility] Work Phone: 12-17-2021 13:51-0400 SaO2% (BldA) [Mass fraction] 98 % Dr. Chaitanya Estrella III Work Phone: [facility] Work Phone: 12-17-2021 13:51-0400 Systolic blood pressure 141 mm[Hg] Dr. Chaitanya Estrella III Work Phone: [facility] Work Phone: 12-02-2021 14:10-0400 Body mass index (BMI) [Ratio] 25.4 kg/m2 Dr. Chaitanya Estrella III Work Phone: [facility] Work Phone: 12-02-2021 14:10-0400 Body weight 71.[address] Chaitanya Estrella III Work Phone: [facility] Work Phone: 12-02-2021 14:10-0400 Diastolic blood pressure 84 mm[Hg] Dr. Chaitanya Estrella III Work Phone: [facility] Work Phone: 12-02-2021 14:10-0400 Heart rate 68 /min Dr. Chaitanya Estrella III Work Phone: [facility] Work Phone: 12-02-2021 14:10-0400 Respiratory rate 16 /min Dr. Chaitanya Estrella III Work Phone: [facility] Work Phone: 12-02-2021 14:10-0400 Systolic blood pressure 132 mm[Hg] Dr. Chaitanya Estrella III Work Phone: [facility] Work Phone: 12-02-2021 14:10-0400 Body mass index (BMI) [Ratio] 25.4 kg/m2 Dr. Chaitanya Estrella III Work Phone: [facility] Work Phone: 12-02-2021 14:10-0400 Body weight 71.[address] Chaitanya Estrella III Work Phone: [facility] Work Phone: 12-02-2021 14:10-0400 Diastolic blood pressure 84 mm[Hg] Dr. Chaitanya Estrella III Work Phone: [facility] Work Phone: 12-02-2021 14:10-0400 Heart rate 68 /min Dr. Chaitanya Estrella III Work Phone: [facility] Work Phone: 12-02-2021 14:10-0400 Respiratory rate 16 /min Dr. Chaitanya Estrella III Work Phone: [facility] Work Phone: 12-02-2021 14:10-0400 Systolic blood pressure 132 mm[Hg] Dr. Chaitanya Estrella III Work Phone: [facility] Work Phone: 11-22-2021 00:55-0400 Body mass index (BMI) [Ratio] 24.5 kg/m2 Dr. Chaitanya Estrella III Work Phone: [facility] Work Phone: 10-22-2021 09:04-0500 Body mass index (BMI) [Ratio] 24.5 kg/m2 Dr. Chaitanya Estrella III Work Phone: [facility] Work Phone: 10-22-2021 08:04-0500 Body mass index (BMI) [Ratio] 24.5 kg/m2 [facility] Work Phone: 09-23-2021 21:10-0500 Body mass index (BMI) [Ratio] 24.5 kg/m2 [facility] Work Phone: 08-25-2021 02:36-0500 Body mass index (BMI) [Ratio] 24.5 kg/m2 [facility] Work Phone: 07-24-2021 01:00-0500 Body mass index (BMI) [Ratio] 24.5 kg/m2 [facility] Work Phone: 05-14-2017 09:05-0400 BMI (Body Mass Index) 24.9 kg/m2 Freddy Costa MD [facility] Work Phone: 05-14-2017 09:05-0400 Body Temperature 97.2 [degF] Freddy Costa MD [facility] Work Phone: 05-14-2017 09:05-0400 BP Diastolic 82 mm[Hg] Freddy Costa MD [facility] Work Phone: 05-14-2017 09:05-0400 BP Systolic 134 mm[Hg] Freddy Costa MD [facility] Work Phone: 05-14-2017 09:05-0400 Height 170.18 cm Freddy Costa MD [facility] Work Phone: 05-14-2017 09:05-0400 Pulse (Heart Rate) 63 /min Freddy Costa MD [facility] Internal Medicine Work Phone: 05-14-2017 09:05-0400 Respiratory Rate 18 /min Freddy Costa MD [facility] Work Phone: 05-14-2017 09:05-0400 Weight 72.12 kg Freddy Costa MD [facility] Work Phone: 09-15-2014 10:10-0500 BMI (Body Mass Index) 27.29 kg/m2 [facility] Work Phone: 09-15-2014 10:10-0500 Weight 72.12 kg Keyannatricia Holguin [facility] Work Phone: 08-10-2014 08:39-0500 Height 162.56 cm [facility] Work Phone: Encounters Encounter Date Encounter Type Care Provider Facility Start: 07-04-2025 End: 07-04-2025 ambulatory [facility] Facility:[facility] Start: 07-04-2025 ambulatory Rukhsana Haji DIET AID Faci lity:[facility] Start: 06-26-2025 ambulatory Braeden John Facility :[facility] Start: 06-26-2025 ambulatory Bart Rosales DIET AID Facility :[facility] Start: 06-20-2025 End: 06-20-2025 ambulatory [facility] Facility:[facility] Start: 06-09-2025 End: 06-09-2025 ambulatory Bart Rosales DIET AID Facility:[facility] Start: 06-07-2025 End: 06-23-2025 ambulatory Alysha Vasquez Facility:[facility] Start: 06-06-2025 End: 06-06-2025 ambulatory [facility] Facility:[facility] Start: 05-22-[address] Braeden kim MD -Speech Therapy Work Phone: Start: 05-18-2025 End: 05-18-2025 Emergency department patient visit Dr. Ousmane Matias DO -Emergency Department Work Phone: Start: 05-12-2025 End: 05-12-2025 ambulatory [facility] Facility:[facility] Start: 04-28-2025 End: 04-28-2025 Patient encounter procedure Urmila DENNIS Work Phone: [facility] [place] Comment on above: Infection of toenail (Primary Dx) Start: 04-28-2025 End: 04-28-2025 ambulatory URMILA PICKENS Facility:[facility] Start: 04-28-2025 End: 05-23-2025 Discharged Recurring Bart Rosales DIET AID-C -Laboratory Work Phone: Start: 04-28-2025 End: 05-23-2025 ambulatory Bart Rosales DIET AID-C Work Phone: -Laboratory Start: 04-27-2025 End: 04-27-2025 Telephone encounter Daquan Buchanan Work Phone: Podiatry Comment on above: Patient Update Start: 04-21-2025 End: 04-21-2025 Telephone encounter Daquan Buchanan Work Phone: Podiatry Comment on above: Patient Update Start: 04-21-2025 End: 04-21-2025 Patient encounter procedure Daquan Grewalyamile Work Phone: Podiatry Comment on above: Onychomycosis (Prima ry Dx); Ingrowing toenail of right foot Start: 04-21-2025 End: 04-21-2025 ambulatory Elisha Garcia RN NURSE [employer] Comment on above: Patient Update Start: 04-20-2025 End: 04-20-2025 ambulatory Bart Rosales DIET AID-C Work Phone: -Laboratory Start: 04-20-2025 End: 04-20-2025 Discharged Recurring Bart Rosales DIET AID-C -Laboratory Work Phone: Start: 04-17-2025 End: 04-17-2025 Patient encounter procedure Daquan Grewalyamile Work Phone: Podiatry Comment on above: Ingrowing toenail of right foot (Primary Dx) Start: 04-17-2025 End: 04-17-2025 ambulatory [facility] Facility:[facility] Start: 04-11-2025 End: 04-11-2025 Office outpatient visit 25 minutes Moon Teixeira MD Work Phone: [facility] [place] Comment on above: Paroxysmal atrial ta chycardia (HCC) (Primary Dx); Anxiety; Essential hypertension; Encounter for screening examination for other mental health and behavioral disorders; History of falling Start: 04-11-2025 End: 04-11-2025 ambulatory [facility] Facility:[facility] Start: 03-30-2025 [facility]ulatory [facility] Start: 03-28-2025 End: 03-28-[address] Yinka Lovelace MD -[facility] Work Phone: Start: 03-28-2025 End: 03-28-[address] Moon Teixeira MD Work Phone: -[facility] Start: 03-21-2025 End: 03-21-2025 Telephone encounter Mynor Shirley MD Work Phone: Cardiology Comment on above: Schedule Surgery (PV I ablation) Start: 03-17-2025 End: 03-20-2025 Telephone encounter Mynor Shirley MD Work Phone: Cardiology Start: 03-15-2025 End: 03-15-2025 Emergency department patient visit Bart Bobby DIET AID-C Work Phone: -Emergency Department Work Phone: Start: 03-15-2025 End: 03-16-2025 ambulatory Moon Teixeira MD Work Phone: [facility] [place] Comment on above: Hypotension Start: 03-08-2025 End: 03-23-2025 Discharged Recurring Bart Romano Bobby DIET AID-C -Laboratory Work Phone: Start: 03-08-2025 Registered Recurring Bart Romano Bobby DIET AID- C -Laboratory Work Phone: Start: 03-08-2025 End: 03-23-[address] Moon Teixeira MD Work Phone: -Laboratory Start: 03-03-2025 End: 05-03-2025 Follow-up encounter Daquan Buchanan Work Phone: Podiatry Start: 03-03-2025 End: 03-14-2025 Telephone encounter Daquan Buchanan Work Phone: Podiatry Start: 03-02-2025 End: 03-02-2025 ambulatory [facility] TEIXEIRA Facility:[facility] Start: 02-08-2025 End: 02-08-2025 ambulatory Edgar Dave [facility] Comment on above: Neck pain (Primary D x); Chronic pain of both shoulders Start: 02-03-2025 End: 02-03-2025 Follow-up encounter José Miguel Saldaña APRN.[employer] Work Phone: [facility] [place] Start: 02-01-2025 End: 02-03-2025 Telephone encounter José Miguel Saldaña APRN.CNP Work Phone: Internal [facility] [place] Comment on above: Results Start: 01-26-2025 End: 01-26-2025 ambulatory Moon Teixeira MD Work Phone: [facility] [place] Comment on above: Derm Problem Start: 01-26-2025 End: 01-26-2025 Office outpatient visit 25 minutes José Miguel Saldaña APRN.[employer] Work Phone: [facility] [place] Comment on above: Chronic pain of both shoulders (Primary Dx); Neck pain; Skin lesion; Other fatigue; Weight gain; Vitamin D deficiency Start: 01-17-2025 End: 01-17-2025 Patient encounter procedure Alec Phil Arthur DO Work Phone: Vascular Surgery Comment on above: Symptomatic varicose veins of both lower extremities (Primary Dx) Start: 01-17-2025 End: 01-17-2025 ambulatory MO[facility] TEIXEIRA Facility:[facility] Start: 01-05-2025 End: 01-05-2025 Discharged Recurring Bart Rosales DIET AID-C -Laboratory Work Phone: Start: 01-05-2025 End: 01-05-[address] Moon Teixeira MD Work Phone: [facility] Work Phone: Start: 01-04-2025 End: 01-04-2025 ambulatory Maria De Jesus Desouza APRN.[employer] Work Phone: Cardiology Start: 01-03-2025 End: 01-06-2025 ambulatory Moon Teixeira MD Work Phone: Internal Medicine [place] [phone] Start: 12-30-2024 End: 12-30-2024 Patient encounter procedure Maria De Jesus Desouza APRN.[employer] Work Phone: Cardiology Comment on above: Paroxysmal atrial fi brillation (HCC); Atrial flutter, unspecified type (HCC); Encounter for current long-term use of 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; Essential (primary) hypertension Start: 12-30-2024 End: 12-30-2024 [facility] Start: 12-02-2024 End: 12-06-2024 Telephone encounter Mynor Shirley MD Work Phone: Cardiology Comment on above: Results Start: 2024 End: 2024 Telephone encounter Mynor Shirley MD Work Phone: Cardiology Comment on above: Received Outside [facility] Records (Holter ) Patient Update Start: 11-28-2024 End: 11-28-2024 Emergency department patient visit Bart Roof DIET AID-C Work Phone: -Emergency Department Work Phone: Start: 11-28-2024 End: 11-28-2024 ambulatory Moon Teixeira MD Work Phone: [facility] [place] Comment on above: Continuing SOB Start: 11-22-2024 Non-patient / Non-visit Dr. Dilshad BAILEY -[facility] Work Phone: Start: 11-22-2024 End: 11-22-2024 ambulatory Bart Romano Bobby DIET AID-C Work Phone: [facility] Work Phone: Start: 11-22-2024 End: 11-22-2024 Patient encounter procedure Desire DENNIS -Pulmonary Services/Neurology Work Phone: Start: 11-22-2024 End: 11-22-2024 ambulatory Desire DENNIS Facility:[facility] Start: 11-18-2024 End: 11-18-2024 ambulatory Bart Romano Bobby DIET AID-C Work Phone: [facility] Work Phone: Start: 11-18-2024 End: 11-18-2024 Discharged Recurring Bart Juan Antonio Bobby DIET AID-C -Laboratory Work Phone: Start: 11-11-2024 Registered Recurring Bart Rosales DIET AID- C -Laboratory Work Phone: Start: 11-11-2024 Non-patient / Non-visit Dr. Dilshad BAILEY -[facility] Start: 11-11-2024 End: 11-11-[address] Yinka Lovelace MD -Cardiovascular Services Work Phone: Start: 11-11-2024 End: 11-11-2024 Refill Moon Teixeira MD Work Phone: [facility] [place] Comment on above: Refill Request Start: 11-11-2024 End: 11-11-2024 ambulatory Yinka Lovelace Facility:[facility] Start: 11-10-2024 End: 11-11-2024 Follow-up encounter Moon Teixeira MD Work Phone: Geriatrics Comment on above: Results Start: 11-09-2024 End: 11-09-2024 ambulatory [facility] Facility:[facility] Start: 11-09-2024 End: 11-09-2024 Subsequent hospital visit by physician Mri [facility] (I-Stat/1.5t) Work Phone: Radiology Comment on above: Transient cerebral i schemia, unspecified type [G45.9] Start: 11-04-2024 End: 11-04-2024 ambulatory Bart Rosales DIET AIDMorganC Work Phone: [facility] Work Phone: Start: 11-04-2024 End: 11-04-[address] Moon Teixeira MD -Physical Therapy Work Phone: Start: 11-04-[address] Moon langford MD -Physical Therapy Work Phone: Start: 10-31-2024 ambulatory [facility] Facility:[facility] Start: 10-31-2024 Non-patient / Non-visit Dr. Moon king MD -[facility] Work Phone: Start: 10-26-2024 End: 10-26-2024 Telephone encounter Moon Teixeira MD Work Phone: Geriatrics Comment on above: Orders (Physical the rapy) Start: 10-26-2024 End: 10-26-2024 ambulatory [facility] Facility:[facility] Start: 10-26-2024 End: 10-26-2024 Assmt & care planning pt w/cognitive impairment Moon Teixeira MD Work Phone: Geriatrics Comment on above: Transient cerebral i schemia, unspecified type (Primary Dx); Balance disorder; Memory change; Weakness of both lower extremities; Dizziness; Weakness of both upper extremities Start: 10-24-2024 End: 10-24-2024 Follow-up encounter José Miguel Saldaña APRN.[employer] Work Phone: [facility] Start: 10-21-2024 End: 10-21-2024 ambulatory [facility] Facility:[facility] Start: 10-21-2024 End: 10-21-2024 Patient encounter procedure José Miguel Saldaña APRN.[employer] Work Phone: [facility] [place] Comment on above: Balance disorder (Pr imary Dx); Vestibular neuronitis of right ear; Memory change; Hematuria, unspecified type; Paroxysmal atrial fibrillation (HCC) Start: 10-13-2024 End: 10-13-[address] Yinka Lovelace MD -[facility] Work Phone: Start: 10-13-2024 End: 10-13-2024 ambulatory Yinka Lovelace Facility[facility] Start: 10-13-2024 End: 10-13-2024 ambulatory Yinka Lovelace Facility:[facility] Start: 10-11-2024 End: 10-11-2024 Patient encounter procedure Desire DENNIS -Laboratory Work Phone: Start: 10-11-2024 End: 10-11-2024 ambulatory Desire DENNIS Facility:[facility] Start: 09-26-2024 End: 09-26-2024 Emergency department patient visit Dr. Pedro Gusman MD -Emergency Department Work Phone: Start: 09-23-2024 End: 09-23-2024 Patient encounter procedure Desire DENNIS -Laboratory Work Phone: Start: 09-22-2024 End: 09-23-2024 ambulatory Desire DENNIS Facility:[facility] Start: 09-22-2024 End: 09-22-2024 Discharged Recurring Bart TIJERINAC -Laboratory Work Phone: Start: 09-15-2024 End: 09-16-2024 Telephone encounter Moon Teixeira MD Work Phone: [facility] [place] Comment on above: Orders Start: 08-19-2024 End: 08-19-2024 Telephone encounter Janelle Morales APRN.CNP Work Phone: [facility] Comment on above: Results Start: 08-12-2024 End: 08-15-2024 Telephone encounter Yaa STEVENSC Work Phone: [facility] Medicine [place] Comment on above: follow up urine resu lts Start: 08-11-2024 End: 08-11-2024 ambulatory [facility] Facility:[facility] Start: 07-28-2024 End: 07-28-2024 ambulatory [facility] Facility:[facility] Start: 07-28-2024 End: 07-28-2024 Patient encounter procedure Daquan Buchanan Work Phone: Podiatry Comment on above: Onychomycosis (Prima ry Dx); Diminished pulses in lower extremity Start: 07-27-2024 End: 07-29-2024 Telephone encounter Yaa STEVENSC Work Phone: [facility] Start: 07-26-2024 End: 07-26-2024 Telephone encounter Yaa STEVENSC Work Phone: [facility] Start: 07-26-2024 End: 07-26-2024 Discharged Recurring Bart Rosales DIET AID-C -Laboratory Work Phone: Start: 07-26-2024 End: 07-26-2024 Subsequent hospital visit by physician Ovidio [facility] Work Phone: Radiology Comment on above: Acute cough [R05.1] Start: 07-26-2024 End: 07-26-2024 ambulatory Bart Rosales NP Facility:[facility] Start: 07-26-2024 End: 07-26-2024 Office outpatient visit 25 minutes Yaa DENNIS-C Work Phone: [facility] Comment on above: Urinary urgency (Honey mago Dx); Urge incontinence; Acute cough; Paroxysmal atrial fibrillation (HCC); Microscopic hematuria Start: 06-29-2024 End: 06-29-2024 Telephone encounter Moon Teixeira MD Work Phone: [facility] [place] Comment on above: Xray Results Start: 06-27-2024 End: 06-27-2024 Telephone encounter Moon Teixeira MD Work Phone: [facility] [place] Comment on above: Patient Update Orders Start: 06-27-2024 End: 06-27-2024 Subsequent hospital visit by physician Xr [facility] [place] Work Phone: Radiology Comment on above: Fall, sequela [W19.X XXS] Start: 06-27-2024 End: 06-27-2024 Office outpatient visit 25 minutes Moon Teixeira MD Work Phone: [facility] [place] Comment on above: Fall, sequela (Prima ry Dx); Balance disorder; Abnormality of gait due to impairment of balance; Painful rib Start: 06-16-2024 End: 06-17-2024 Telephone encounter Moon Teixeira MD Work Phone: [facility] [place] Comment on above: Patient Update Start: 05-17-2024 End: 05-19-2024 Telephone encounter Moon Teixeira MD Work Phone: [facility] [place] Comment on above: ordes for a ceasar s wallow Start: 05-06-2024 End: 05-06-2024 Office outpatient visit 15 minutes Moon Teixeira MD Work Phone: [facility] [place] Comment on above: Anxiety and depressi on (Primary Dx); Mixed hyperlipidemia; Essential hypertension Start: 05-02-2024 End: 05-03-2024 Orders Only Gucci MARS Work Phone: [facility] Comment on above: 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) Start: 04-29-2024 End: 04-29-2024 Telephone encounter Moon Teixeira MD Work Phone: [facility] [place] Comment on above: Medication Question Start: 04-26-2024 End: 04-27-2024 Telephone encounter Moon Teixeira MD Work Phone: [facility] [place] Comment on above: Xray Results Start: 04-23-2024 End: 04-23-2024 Subsequent hospital visit by physician Xr [facility] [place] Work Phone: Radiology Comment on above: Rib pain [R07.81] Start: 04-22-2024 End: 04-22-2024 Office outpatient visit 15 minutes Moon Teixeira MD Work Phone: [facility] [place] Comment on above: Rib pain (Primary Dx ); Muscle spasm Start: 04-18-2024 End: 04-18-2024 Patient encounter procedure Guccikleber MARS Work Phone: [facility] Comment on above: 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) Start: 04-05-2024 End: 04-05-2024 Patient encounter procedure Moon Teixeira MD Work Phone: [facility] [place] Comment on above: Dysphagia, unspecifi ed type (Primary Dx); Choking episode; Insomnia, unspecified type; Stress; Atrial fibrillation, unspecified type (HCC); Numbness and tingling; Vitamin B12 deficiency; Weight gain; Fatigue, unspecified type; Iron deficiency Start: 03-21-2024 Telephone encounter Nirali bryan PA-C Work Phone: [facility] [place] Comment on above: Results Start: 03-15-2024 Telephone encounter Elizabeth DENNIS-Triny Work Phone: [facility] [place] Comment on above: Patient Question Start: 02-22-2024 Telephone encounter Nirali bryan PA-C Work Phone: [facility] [place] Comment on above: Results Start: 02-11-2024 Telephone encounter Nirali bryan PA-C Work Phone: [facility] [place] Comment on above: Results Start: 02-10-2024 ambulatory Elizabeth perry PA-C Work Phone: [facility] [place] Comment on above: Headache Start: 02-10-2024 End: 02-10-2024 Patient encounter procedure Nirali STEVENSC Work Phone: [facility] [place] Comment on above: Neck pain (Primary D x); CHE (dyspnea on exertion); Near syncope; Lightheadedness; Essential hypertension; Paroxysmal atrial fibrillation (HCC); Paroxysmal atrial tachycardia (HCC) Start: 01-12-2024 Telephone encounter Sofia Arciniega MD Work Phone: [facility] Cardiology Comment on above: Appointment Start: 01-04-2024 End: 01-04-2024 Patient encounter procedure Gucci Castlerene SECOND BALLER Work Phone: [facility] Comment on above: 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) Start: 01-01-2024 End: 06-02-2024 Telephone encounter Moon Teixeira MD Work Phone: [facility] [place] Comment on above: Patient Question Start: 12-05-2023 End: 12-22-2023 ambulatory PA Elizabeth DENNIS Work Phone: [facility] Work Phone: Start: 12-05-2023 End: 12-22-2023 Discharged Recurring PA NA Dlae PA [facility] Start: 11-11-2023 End: 11-11-2023 Patient encounter procedure PA ZAIRE Dale PA Work Phone: [facility] Work Phone: Start: 11-06-2023 Telephone encounter Elizabeth Dale PA-C Work Phone: [facility] Comment on above: Patient Update Start: 10-26-2023 End: 11-21-2023 ambulatory PA M Sakina Dale PA Work Phone: [facility] Work Phone: Start: 10-26-2023 End: 11-21-2023 Discharged Recurring PA NA Dale PA Work Phone: [facility] Work Phone: Start: 10-21-2023 Orders Only Mynor gomez MD Work Phone: Cardiology Comment on above: Paroxysmal atrial fi brillation (HCC) (Primary Dx); Paroxysmal atrial tachycardia (HCC) Start: 09-18-2023 End: 09-18-2023 ambulatory PA Elizabeth Dale PA Work Phone: [facility] Work Phone: Start: 09-18-2023 End: 09-18-2023 Discharged Recurring PA ZAIRE Dale PA Work Phone: [facility] Work Phone: Start: 08-11-2023 End: 08-11-2023 Patient encounter procedure PA ZAIRE Dale PA Work Phone: [facility] Work Phone: Start: 08-09-2023 End: 08-09-2023 Emergency department patient visit [facility]Emergency [facility] Work Phone: Start: 08-05-2023 Telephone encounter Linda brantley [facility] Work Phone: Psychology Comment on above: consult Start: 07-29-2023 End: 08-23-2023 ambulatory PA Elizabeth Dale PA Work Phone: [facility] Work Phone: Start: 07-29-2023 End: 08-23-2023 Discharged Recurring PA ZAIRE Dale PA Work Phone: [facility] Work Phone: Start: 07-29-2023 Registered Recurring [facility] Work Phone: Start: 07-20-2023 Telephone encounter Elizabeth DENNIS-C Work Phone: [facility] [place] Comment on above: Results Start: 07-15-2023 End: 07-23-2023 ambulatory [facility] Work Phone: Start: 07-15-2023 End: 07-23-2023 Discharged Recurring [facility] Work Phone: Start: 07-15-2023 End: 07-15-2023 Subsequent hospital visit by physician Ovidio [facility] Work Phone: Radiology Comment on above: Right wrist pain [M2 5.531] Start: 07-15-2023 End: 07-15-2023 Patient encounter procedure Patrizia Willis APRN.CNP Work Phone: [facility] [place] Comment on above: Right wrist pain (Pr imary Dx) Start: 07-01-2023 End: 07-01-2023 ambulatory [facility] Work Phone: Start: 07-01-2023 End: 07-01-2023 [facility] Start: 06-16-2023 End: 06-16-2023 [facility] Work Phone: Start: 06-16-2023 End: 06-16-2023 [facility] Start: 06-09-2023 End: 06-09-2023 Patient encounter procedure Elizabeth Dale PA-C Work Phone: [facility] Comment on above: Essential hypertensi on (Primary Dx); Paroxysmal atrial fibrillation (HCC); Paroxysmal atrial tachycardia; Varicose veins of left lower extremity with pain; Mild asthma without complication, unspecified whether persistent; Severe episode of recurrent major depressive disorder, without psychotic features (HCC); Vestibular neuronitis of right ear; Vertigo of central origin; Hypothyroidism, acquired; Grieving; Hyperlipidemia, mixed Start: 06-09-2023 Telephone encounter Linda brantley [facility] Work Phone: Psychology Comment on above: bh consult Start: 05-12-2023 End: 05-12-2023 ambulatory [facility] Work Phone: Start: 05-12-2023 End: 05-12-2023 Discharged Recurring [facility]-Physical Therapy Work Phone: Start: 05-12-2023 Registered Recurring [facility] Work Phone: Start: 05-01-2023 End: 05-01-2023 ambulatory [facility] Work Phone: Start: 05-01-2023 End: 05-01-2023 Discharged Recurring [facility] Work Phone: Start: 05-01-2023 Registered Recurring [facility] Work Phone: Start: 03-30-2023 End: 03-30-2023 ambulatory [facility] Work Phone: Start: 03-30-2023 End: 03-30-2023 Discharged Recurring [facility] Work Phone: Start: 03-16-2023 End: 03-23-2023 ambulatory PA Elizabeth DENNIS Work Phone: [facility] Work Phone: Start: 03-16-2023 End: 03-23-2023 Discharged Recurring PA ZAIRE Dale PA Work Phone: [facility] Work Phone: Start: 03-10-2023 End: 03-10-2023 Patient [...] 02-13-2023 Telephone encounter Elizabeth STEVENSC Work Phone: [facility] Comment on above: Knee Pain Start: 02-05-2023 End: 02-05-2023 ambulatory PA Elizabeth DENNIS Work Phone: [facility] Work Phone: Start: 02-05-2023 End: 02-05-2023 Discharged Recurring PA ZAIRE DENNIS Work Phone: [facility] Work Phone: Start: 02-04-2023 ambulatory TERRI BETTIE Facility:[facility] Start: 02-04-2023 End: 02-04-2023 Patient encounter procedure Terri Gomez DPM Work Phone: Podiatry Comment on above: Closed fracture of p halanx of right fourth toe, initial encounter (Primary Dx); Pain and swelling of toe, right Start: 02-04-2023 End: 02-04-2023 Subsequent hospital visit by physician [facility] Work Phone: Radiology Comment on above: Pain in toe of right foot [M79.674] Start: 01-23-2023 Telephone encounter Terri Gomez DPM Work Phone: Orthopaedics Comment on above: Patient Update Start: 01-21-2023 ambulatory Elizabeth Vargas [facility] Start: 01-21-2023 End: 01-21-2023 Subsequent hospital visit by physician [facility] Work Phone: Radiology Comment on above: Pain and swelling of toe, right [M79.674, M79.89] Start: 01-21-2023 End: 01-21-2023 Patient encounter procedure Terri Gomez DPM Work Phone: Podiatry Comment on above: Toe dislocation, rig ht, initial encounter (Primary Dx); Pain and swelling of toe, right; Other acute osteomyelitis of right foot (HCC); Pain Start: 01-09-2023 End: 01-09-2023 ambulatory PA Elizabeth DENNIS Work Phone: [facility] Work Phone: Start: 01-09-2023 End: 01-09-2023 Discharged Recurring PA NA Dale PA Work Phone: [facility] Start: 12-30-2022 End: 12-30-2022 Subsequent hospital visit by physician Ovidio [facility] Work Phone: Radiology Comment on above: Foot injury, right, initial encounter [S99.921A] Start: 12-30-2022 End: 12-30-2022 Patient encounter procedure Elizabeth Sakina Chito STEVENSC Work Phone: [facility] Comment on above: Foot injury, right, initial encounter (Primary Dx) Start: 12-08-2022 End: 12-08-2022 Patient encounter procedure Elizabeth Sakina Chito SAMPSON Work Phone: [facility] Comment on above: Essential hypertensi on (Primary Dx); Paroxysmal atrial fibrillation (HCC); Paroxysmal atrial tachycardia (HCC); Syncope and collapse; Hyperlipidemia, mixed; Essential hypertension, benign; Mild asthma without complication, unspecified whether persistent; Vestibular neuronitis of right ear; Impaired fasting glucose; Severe episode of recurrent major depressive disorder, without psychotic features (HCC) Start: 12-05-2022 End: 12-21-2022 ambulatory PA Elizabeth PeñaSakinainocencio Reneevicky DENNIS Work Phone: [facility] Work Phone: Start: 12-05-2022 End: 12-21-2022 Discharged Recurring PA NA Dlae PA Work Phone: [facility]Labor[facility] Start: 12-01-2022 Non-patient / Non-visit PA NA Dale PA Work Phone: [facility] Start: 11-28-2022 Education Mynor gomez MD Work Phone: Cardiology Comment on above: Patient Education (L oop Recorder) Start: 11-05-2022 End: 11-05-2022 Patient encounter procedure PA ZAIRE Dale PA Work Phone: [facility] Start: 11-05-2022 End: 11-21-2022 ambulatory PA Elizabeth PeñaSakina Dale PA Work Phone: [facility] Work Phone: Start: 11-05-2022 End: 11-21-2022 Discharged Recurring PA NA Dale PA Work Phone: [facility]Labor[facility] Start: 11-04-2022 Registered Recurring PA ZAIRE Cronin PA Work Phone: [facility]-Physical Therapy Start: 10-29-2022 Telephone encounter Mynor Shirley MD Work Phone: Cardiology Comment on above: Schedule Surgery ([place] R) Start: 10-28-2022 Orders Only Mynor gomez MD Work Phone: Cardiology Comment on above: Paroxysmal atrial fi brillation (HCC) (Primary Dx); Paroxysmal atrial tachycardia (HCC) Start: 10-22-2022 Telephone encounter Elizabeth Dale PA-C Work Phone: [facility] Comment on above: Patient Update Start: 10-21-2022 Telephone encounter Elizabeth Dale PA-C Work Phone: [facility] Comment on above: Physical Therapy Paroxysmal atrial ta chycardia (HCC) (Primary Dx); Paroxysmal atrial fibrillation (HCC) Start: 10-13-2022 End: 10-14-2022 Emergency department patient visit PA NA Dale PA Work Phone: [facility]-Emergency Department Start: 10-13-2022 Non-patient / Non-visit PA NA Dale PA Work Phone: [facility] Inpatient Physicians Start: 10-13-2022 Non-patient / Non-visit PA NA Dale PA Work Phone: [facility] Start: 10-12-2022 Non-patient / Non-visit PA NA Dale PA Work Phone: [facility] Start: 10-12-2022 End: 10-13-2022 Evaluation and management of inpatient PA NA Dale PA Work Phone: [facility]-Progressive Care Unit Start: 10-12-2022 End: 10-13-2022 observation encounter PA Elizabeth Sakina Dale PA Work Phone: [facility] Work Phone: Start: 10-07-2022 End: 10-07-2022 Discharged Recurring PA NA Dale PA Work Phone: [facility] Start: 10-07-2022 Registered Recurring PA ZAIRE Paul pollo PA Work Phone: [facility] Start: 09-08-2022 Telephone encounter Elizabeth Sakina Dale PA-C Work Phone: [facility] Comment on above: Patient Update Start: 09-08-2022 End: 09-08-2022 Emergency department patient visit PA ZAIRE Dale PA Work Phone: [facility]-Emergency Department Start: 09-07-2022 End: 09-07-2022 Patient encounter procedure PA ZAIRE Dale PA Work Phone: [facility] Start: 08-20-2022 End: 08-20-2022 Discharged Recurring PA NA Dale PA [facility] Start: 08-01-2022 Telephone encounter Elizabeth Sakina Dale PA-C Work Phone: [facility] Comment on above: Results Start: 07-23-2022 End: 07-23-2022 ambulatory PA Elizabeth Sakina Dale PA Work Phone: [facility] Work Phone: Start: 07-23-2022 End: 07-23-2022 Discharged Recurring PA NA Dale PA Work Phone: [facility] Start: 06-04-2022 End: 06-04-2022 Patient encounter procedure PA NA Dale PA Work Phone: [facility] Start: 06-04-2022 End: 06-04-2022 ambulatory PA Elizabeth Sakina Dale PA Work Phone: [facility] Work Phone: Start: 06-04-2022 End: 06-04-2022 Discharged Recurring JEANNIE DENNIS [facility] Start: 05-02-2022 End: 05-02-2022 ambulatory [facility] Work Phone: Start: 05-02-2022 End: 05-02-2022 [facility] Start: 04-02-2022 End: 04-02-2022 ambulatory [facility] Work Phone: Start: 04-02-2022 End: 04-02-2022 [facility] Start: 02-27-2022 End: 03-23-[address] Chaitanya Estrella III [facility] Start: 02-27-[address] Chaitanya Estrella III [facility] Start: 01-24-2022 Telephone encounter Ramila mosqueda [employer]EARLY CHILDHOOD Work Phone: [facility] Comment on above: Results Start: 01-23-2022 Telephone encounter Ramila mosqueda [employer].EARLY CHILDHOOD Work Phone: [facility] Comment on above: Xray Results Start: 01-23-2022 End: 01-23-2022 Subsequent hospital visit by physician Xr [facility] Work Phone: Radiology Comment on above: Acute pain of both k nees [M25.561, M25.562] Start: 01-22-2022 End: 01-22-[address] Chaitanya Estrella III [facility] Start: 01-21-2022 End: 01-21-2022 Nursing evaluation of patient and report Nurse/Testrake [facility] Work Phone: Podiatry Comment on above: Plantar fasciitis (P rimary Dx) Start: 01-07-2022 End: 01-07-2022 Patient encounter gorge Dale PA-C Work Phone: [facility] Comment on above: Paroxysmal atrial fi brillation (HCC) (Primary Dx); Essential hypertension, benign; Closed fracture of one rib of right side with routine healing, subsequent encounter Start: 01-05-2022 End: 01-05-2022 Emergency department patient visit Dr. Chaitanya Estrella III Work Phone: [facility]-Emergency Department Start: 01-02-2022 End: 01-02-[address] Chaitanya Estrella III Work Phone: [facility]Labor[facility] Start: 01-02-[address] Chaitanya Estrella III Work Phone: [facility] Start: 12-18-2021 Non-patient / Non-visit Dr. Fr mary Estrella III Work Phone: [facility] Start: 12-18-2021 End: 12-18-[address] Chaitanya Estrella III Work Phone: [facility]-Cardiovascula r Services Start: 12-17-2021 End: 12-17-[address] Chaitanya Estrella III [facility] Start: 12-02-2021 End: 12-02-[address] Chaitanya Estrella III Work Phone: [facility] Start: 12-02-2021 End: 12-02-[address] Chaitanya Estrella III Work Phone: [facility] Start: 11-19-2021 End: 11-21-2021 Discharged Recurring [facility] Start: 10-16-2021 [facility] Start: 10-08-2021 End: 10-08-2021 Patient encounter procedure [facility] Start: 09-25-2021 End: 09-25-2021 Discharged Recurring [facility] Start: 09-06-2021 End: 09-06-2021 Subsequent hospital visit by physician Xr [facility] Work Phone: Radiology Comment on above: Unstable knee, right [M25.361] Start: 08-28-2021 End: 09-23-2021 Discharged Recurring [facility] Start: 08-21-2021 End: 08-24-2021 Discharged Recurring [facility] Procedures Date Procedure Procedure Detail Performing Clinician Start: 05-18-2025 Plain chest X-ray Bart Rosales [facility] Work Phone: Start: 05-18-2025 Estimated creatinine clearance Bart Rosales [facility] Work Phone: Start: 03-15-2025 Plain chest X-ray Bart Rosales [facility] Work Phone: Start: 03-15-2025 Urnls dip stick/tabl et reagent auto microscopy Bart Rosales [facility] Work Phone: Start: 11-28-2024 Plain chest X-ray Bart Rosales [facility] Work Phone: Start: 11-28-2024 Estimated creatinine clearance Bart Rosales [facility] Work Phone: Start: 11-09-2024 Mri brain brain stem w/o contrast material Moon Teixeira MD Work Phone: Start: 10-21-2024 Urnls dip stick/tabl et rgnt auto w/o microscopy José Miguel Saldaña APRN.EARLY CHILDHOOD Work Phone: Start: 10-13-2024 Evaluation of diagno stic study results Bart Rosales [facility] Work Phone: Start: 10-11-2024 Measurement of renal function Bart Rosales [facility] Work Phone: Comment on above: GFR Calc Start: 09-26-2024 Plain chest X-ray Bart Rosales [facility] Work Phone: Start: 09-26-2024 Estimated creatinine clearance Bart Rosales [facility] Work Phone: Start: 09-26-2024 Measurement of renal function Bart Rosales [facility] A[facility]-C Work Phone: Comment on above: GFR Calc Start: 07-26-2024 Radiologic exam ches t 2 views Yaa DENNIS-C Work Phone: Start: 07-26-2024 Urnls dip stick/tabl et rgnt auto w/o microscopy Yaa DENNIS-C Work Phone: Start: 04-23-2024 Radex ribs unilatera l 2 views Moon Teixeira MD Work Phone: Start: 07-15-2023 Radex wrist complete minimum 3 views Patrizia Nerir SE[employer]ONAL [employer] BUN[employer]ERLonnieEARLY CHILDHOOD Work Phone: Start: 02-04-2023 Radex foot complete minimum 3 views Terri Hild DPM Work Phone: Start: 01-22-2023 Njx anes&/steroid pl gertrudis common digital nerve Terri Hild DPM Work Phone: Start: 01-21-2023 End: 01-21-2023 Radex foot complete minimum 3 views Terri Hild DPM Work Phone: Start: 12-30-2022 Radex foot complete minimum 3 views Elizabeth DENNIS-C Work Phone: Start: 10-13-2022 Plain chest X-ray PA ZAIRE Dale PA Work Phone: Start: 10-12-2022 Plain chest X-ray PA NA Dale PA Work Phone: Start: 09-08-2022 Plain chest X-ray PA NA Dale PA Work Phone: Start: 01-23-2022 Radiologic exam knee complete 4/more views Ramila Rosas [employer]ERLonnieEARLY CHIL[employer]OOD Work Phone: Start: 01-05-2022 X-ray of chest posteroanterior view Dr. Chaitanya Estrella III Work Phone: Start: 12-18-2021 Radionuclide imaging of perfusion of myocardium under exercise stress Dr. Chaitanya Estrella III Work Phone: Start: 09-06-2021 Radiologic exam knee complete 4/more views Elizabeth Sakina Dale PA-C Work Phone: Start: 05-22-2017 End: 05-22-2017 Radex hand minimum 3 views Keyanna Salinas Quyen gary Work Phone: Start: 05-22-2017 End: 05-22-2017 X-ray exam of hand Keyanna Salinas Vilma i Work Phone: Start: 05-14-2017 End: 05-28-2017 [...] Author Start: 01-27-2028 Diabetes Screening Diabetes Screening [facility] Start: 02-09-2027 Diabetes Screening Diabetes Screening [facility] Start: 07-15-2026 Diabetes Screening Diabetes Screening [facility] Start: 04-11-2026 Annual PCP Team Chronic Disease Visit Annual PCP Team Chronic Disease Visit [facility] Start: 04-11-2026 Anxiety Screening Anxiety Screening [facility] Start: 04-11-2026 RSV Vaccine (1 - 1-dose 75+ series) RSV Vaccine (1 - 1-dose 75+ series) [facility] Comment on above: Postponed from 2020 (Declined at t his time) Start: 01-26-2026 Annual PCP Team Chronic Disease Visit Annual PCP Team Chronic Disease Visit [facility] Start: 01-26-2026 BP Controlled (<130/80) BP Controlled (<130/80) [facility] in Start: 12-01-2025 DIABETES SCREEN DIABETES SCREEN [facility] Start: 12-01-2025 Diabetes Screening Diabetes Screening [facility] Start: 10-26-2025 BP Controlled (<130/80) BP Controlled (<130/80) [facility] in Start: 10-21-2025 Annual PCP Team Chronic Disease Visit Annual PCP Team Chronic Disease Visit [facility] Start: 08-11-2025 End: 08-11-2025 Admission to same day surgery center 08/11/2025 1:00 PM EST - 08/11/2025 6:00 PM EST Surgery [facility] [address] [place] [address] Mynor Shirley MD [address] [place] [address] COMPRE EP EVAL ABLTJ ATR FIB PULM VEIN ISOLATION [facility] Comment on above: COMPRE EP EVAL ABLTJ ATR FIB PULM VEIN I SOLATION Start: 08-11-2025 End: 08-11-2025 Ephys evl trnsptl tx atrial fib isolat pulm vein COMPRE EP EVAL ABLTJ ATR FIB PULM VEIN ISOLATION Paroxysmal atrial fibrillation (HCC) 08/11/2025 1:00 PM EST EP LAB Start: 08-11-2025 Subsequent hospital visit by physician 08/11/2025 1:00 PM EST Hospital Encounter HOSP EP Lab [address] [place] [address] Mynor Shirley MD [address] [place] [address] Paroxysmal atrial fibrillation (HCC) [I48.0] HOSP EP Lab Comment on above: Paroxysmal atrial fibrillation (HCC) [I4 8.0] Start: 08-11-2025 End: 08-11-2025 Patient encounter procedure Admitting Comment on above: PVI ABLATION Start: 08-08-2025 End: 03-21-2026 CBC panel - Blood by Automated count COMPLETE BLOOD COUNT Lab Routine Paroxysmal atrial fibrillation (HCC) Expected: 08/08/2025, Expires: 03/21/2026 [facility] Work Phone: Comment on above: Expected: 08/08/2025, Expires: Start: 08-08-2025 End: 03-20-2026 Comprehensive metabolic 2000 panel - Serum or Plasma COMPREHENSIVE METABOLIC PANEL Lab Routine Paroxysmal atrial fibrillation (HCC) Expected: 08/08/2025, Expires: 03/20/2026 [facility] Comment on above: Expected: 08/08/2025, Expires: Start: 08-08-2025 End: 03-20-2026 PT panel - Platelet poor plasma by Coagulation assay PROTHROMBIN TIME Lab Routine Paroxysmal atrial fibrillation (HCC) Expected: 08/08/2025, Expires: 03/20/2026 [facility] Comment on above: Expected: 08/08/2025, Expires: Start: 08-08-2025 End: 03-20-2026 TYPE AND SCREEN,30 DAY TYPE AND SCREEN,30 DAY Blood Bank Routine Paroxysmal atrial fibrillation (HCC) Expected: 08/08/2025, Expires: 03/20/2026 [facility] Comment on above: Expected: 08/08/2025, Expires: Start: 08-08-2025 End: 08-08-2025 Patient encounter procedure Cardiology Comment on above: DX. Paroxysmal atrial fibrillation (HCC) Start: 08-08-2025 End: 08-08-2025 ambulatory Cardiology Comment on above: DX. Paroxysmal atrial fibrillation (HCC) PVI ABLATION Start: 07-29-2025 DIABETES SCREEN DIABETES SCREEN [facility] Start: 07-26-2025 Annual PCP Team Chronic Disease Visit Annual PCP Team Chronic Disease Visit [facility] Start: 07-26-2025 BP Controlled (<130/80) BP Controlled (<130/80) [facility] Start: 07-13-2025 End: 07-13-2025 Patient encounter procedure 07/13/2025 10:20 AM EST Office Visit [facility] [address] [place] [address] Moon Teixeira MD [address] [place] [address] 3 Month F/U [facility] Comment on above: 3 Month F/U Start: 06-27-2025 Annual PCP Team Chronic Disease Visit Annual PCP Team Chronic Disease Visit [facility] Start: 05-22-2025 Registered Recurring Registered Recurring -Speech Therapy Work Phone: Start: 05-18-2025 [facility] Start: 05-18-2025 [facility] Start: 05-12-2025 End: 05-12-2025 Patient encounter procedure 05/12/2025 1:20 PM EDT Office Visit Podiatry [address] [place] [address] Daquan Buchanan [address] [place] [address] 3 week follow up ingrown toenail R foot Podiatry Comment on above: 3 week follow up ingrown toenail R foot Start: 05-06-2025 Annual PCP Team Chronic Disease Visit Annual PCP Team Chronic Disease Visit [facility] Start: 05-06-2025 BP Controlled (<130/80) BP Controlled (<130/80) [facility] in Start: 04-28-2025 End: 05-23-2025 Discharged Recurring Discharged Recurring -Laboratory Work Phone: Start: 04-24-2025 Influenza vaccination Influenza Vaccine (#1) [facility] Start: 04-22-2025 Annual PCP Team Chronic Disease Visit Annual PCP Team Chronic Disease Visit [facility] Start: 04-22-2025 BP Controlled (<130/80) BP Controlled (<130/80) [facility] Start: 04-21-2025 End: 04-21-2025 Patient encounter procedure 04/21/2025 8:00 AM EDT Office Visit Podiatry [address] [place] [address] Daquan Buchanan [address] [place] [address] Left hallux matrixectomy Podiatry Comment on above: Left hallux matrixectomy Start: 04-17-2025 End: 04-17-2025 Patient encounter procedure 04/17/2025 11:00 AM EDT Office Visit Podiatry [address] [place], [place] [id number] Daquan Buchanan [address] [place] [address] Matrixectomy great toe Podiatry Comment on above: Matrixectomy great toe Start: 04-11-2025 End: 04-11-2025 Patient encounter procedure 04/11/2025 10:40 AM EDT Office Visit [facility] [address] [place] [address] Moon Teixeira MD [address] [place], [place] [id number] Talk about hyppotensive episodes, Pt will have seen Dr Lovelace Dewatering Filtering Supervisor on 03/28/25. See TE 03/15/25. [facility] Comment on above: Talk about hyppotensive episodes, Pt luna l have seen Dr Lovelace Dewatering Filtering Supervisor on 03/28/25. See TE 03/15/25. Start: 04-05-2025 Annual PCP Team Chronic Disease Visit Annual PCP Team Chronic Disease Visit [facility] Start: 04-05-2025 BP Controlled (<130/80) BP Controlled (<130/80) [facility] Start: 03-28-2025 End: 03-28-2025 Evaluation of diagnostic study results [facility] Start: 03-27-2025 End: 03-27-2025 ambulatory 03/27/2025 10:45 AM EDT OT/PT/Speech Visit [facility] [address], [place] [id number] Edgar Dave, PT [address] [place], [place] [id number] M25.561,M25.562 (ICD-10-CM) - Pain in both knees, unspecified chronicity Pr [facility] Comment on above: M25.561,M25.562 (ICD-10-CM) - Pain in lizabeth th knees, unspecified chronicity Pr Start: 03-20-2025 End: 03-20-2025 ambulatory 03/20/2025 10:45 AM EDT OT/PT/Speech Visit [facility] [address] [place] [place] [address] Edgar Dave, PT [address] [place], [place] [id number] M25.561,M25.562 (ICD-10-CM) - Pain in both knees, unspecified chronicity Pr [facility] Comment on above: M25.561,M25.562 (ICD-10-CM) - Pain in lizabeth th knees, unspecified chronicity Pr Start: 03-15-2025 [facility] Start: 03-13-2025 End: 03-13-2025 ambulatory 03/13/2025 10:45 AM EDT OT/PT/Speech Visit [facility] [address] [facility] [place] [address] Edgar Dave, PT [address] [place], [place] [id number] M25.561,M25.562 (ICD-10-CM) - Pain in both knees, unspecified chronicity Pr [facility] Comment on above: M25.561,M25.562 (ICD-10-CM) - Pain in lizabeth th knees, unspecified chronicity Pr Start: 03-06-2025 End: 03-06-2025 ambulatory 03/06/2025 11:00 AM EDT OT/PT/Speech Visit [facility] [address] [place] [place] [address] Rosalee Acosta, FIXED INCOME MANAGER [address] [place] [place] [address] M25.561,M25.562 (ICD-10-CM) - Pain in both knees, unspecified chronicity Pr [facility] Comment on above: M25.561,M25.562 (ICD-10-CM) - Pain in lizabeth th knees, unspecified chronicity Pr Start: 03-02-2025 End: 03-02-2025 Patient encounter procedure 03/02/2025 3:30 PM EDT Office Visit Vasculary Surgery [address] [place] [address] Onychomycosis [B35.1] Vasculary Surgery Comment on above: Onychomycosis [B35.1] Start: 03-01-2025 End: 03-01-2025 Patient encounter procedure 03/01/2025 11:00 AM EDT Office Visit Geriatrics [address] [facility] [place] [address] Moon Teixeira MD [address] [facility] [place] [address] 4 mo follow up, mri review Geriatrics Comment on above: 4 mo follow up, mri review Start: 02-27-2025 End: 02-27-2025 ambulatory 02/27/2025 11:00 AM EDT OT/PT/Speech Visit [facility] [address] [place] [address] Rosalee Acosta, FIXED INCOME MANAGER [address] [place] [address] M25.561,M25.562 (ICD-10-CM) - Pain in both knees, unspecified chronicity Pr [facility] Comment on above: M25.561,M25.562 (ICD-10-CM) - Pain in lizabeth th knees, unspecified chronicity Pr Start: 02-21-2025 End: 02-21-2025 ambulatory 02/21/2025 6:15 PM EDT OT/PT/Speech Visit [facility] [address] [place] [address] Barron Lilly, PT [address] [place] [address] M25.561,M25.562 (ICD-10-CM) - Pain in both knees, unspecified chronicity [facility] Comment on above: M25.561,M25.562 (ICD-10-CM) - Pain in lizabeth th knees, unspecified chronicity Start: 02-13-2025 End: 02-13-2025 ambulatory 02/13/2025 10:45 AM EDT OT/PT/Speech Visit [facility] [address] [place] [address] Barron Lilly, PT [address] [place] [address] M25.561,M25.562 (ICD-10-CM) - Pain in both knees, unspecified chronicity [facility] Comment on above: M25.561,M25.562 (ICD-10-CM) - Pain in lizabeth th knees, unspecified chronicity Start: 02-09-2025 Annual PCP Team Chronic Disease Visit Annual PCP Team Chronic Disease Visit [facility] Start: 02-08-2025 End: 02-08-2025 ambulatory 02/08/2025 12:15 PM EDT OT/PT/Speech Visit [facility] [address] [place] [address] Edgar Dave, PT [address] [place] [address] Chronic pain of both shoulders [M25.511, G89.29, M25.512] [facility] Comment on above: Chronic pain of both shoulders [M25.511, G89.29, M25.512] Start: 02-08-2025 End: 02-08-2025 ambulatory 02/08/2025 9:15 AM EDT OT/PT/Speech Visit [facility] [address] [place] [address] Edgar Dave, PT [address] [place] [address] Chronic pain of both shoulders [M25.511, G89.29, M25.512] [facility] Comment on above: Chronic pain of both shoulders [M25.511, G89.29, M25.512] Start: 01-18-2025 End: 01-18-2025 Patient encounter procedure 01/18/2025 11:20 AM EDT Office Visit [facility] [address] [place] [address] José Miguel Saldaña APRN.[employer]OOD [address] [place] [address] 3 mo follow up [facility] Comment on above: 3 mo follow up Start: 01-17-2025 End: 01-17-2025 Patient encounter procedure 01/17/2025 2:30 PM EDT Office Visit Vascular Surgery [address] [place] [address] Alec Arthur, DO [address] [place] [address] veins Vascular Surgery Comment on above: veins Start: 01-03-2025 End: 04-04-2025 Basic metabolic 2000 panel - Serum or Plasma BASIC METABOLIC PANEL Lab Routine Essential hypertension Expected: 01/03/2025, Expires: 04/04/2025 [facility] Work Phone: Comment on above: Expected: 01/03/2025, Expires: Start: 01-03-2025 End: 04-04-2025 CBC panel - Blood by Automated count COMPLETE BLOOD COUNT Lab Routine Medication management Expected: 01/03/2025, Expires: 04/04/2025 [facility] Comment on above: Expected: 01/03/2025, Expires: Start: 11-29-2024 End: 11-29-2024 Patient encounter procedure 11/29/2024 2:00 PM EDT Office Visit [facility] [place] [address] [facility] [place] [address] Moon Teixeira MD [address] [facility] [place] [address] 6 month follow up [facility] [place] Comment on above: 6 month follow up Start: 11-28-2024 [facility] Start: 11-28-2024 [facility] Start: 11-09-2024 End: 11-09-2024 Patient encounter procedure 11/09/2024 11:00 AM EDT Appointment Radiology [address] [place] [address] Transient cerebral ischemia, unspecified type [G45.9] Radiology Comment on above: Transient cerebral ischemia, unspecified type [G45.9] Start: 11-01-2024 End: 11-01-2024 Patient encounter procedure Cardiology Comment on above: DX: PAF Start: 11-01-2024 End: 11-01-2024 ambulatory 11/01/2024 2:30 PM EDT Results Only Cardiology [address] [place] [address] DX: PAF Cardiology Comment on above: DX: PAF Start: 10-26-2024 End: 10-26-2024 Patient encounter procedure 10/26/2024 1:30 PM EST Office Visit Geriatrics [address] [facility] [place] [address] Moon Teixeira MD [address] [facility] [place] [address] Balance disorder [R26.89] Geriatrics Comment on above: Balance disorder [R26.89] Start: 09-29-2024 End: 09-29-2024 ambulatory 09/29/2024 3:00 PM EST OT/PT/Speech Visit [facility] Physical Therapy [address] [place] [address] Barrie Clement, PT [address] [place] [address] Pain in both knees, unspecified chronicity [M25.561, M25.562] [facility] Comment on above: Pain in both knees, unspecified chronici ty [M25.561, M25.562] Start: 09-26-2024 [facility] Start: 09-26-2024 [facility] Start: 08-30-2024 End: 08-30-2024 Patient encounter procedure 08/30/2024 2:30 PM EST Office Visit Vasculary Surgery [address] [place] [address] Onychomycosis [B35.1] Vasculary Surgery Comment on above: Onychomycosis [B35.1] Start: 08-26-2024 DIABETES SCREEN DIABETES SCREEN [facility] Start: 08-24-2024 Advance Directive Discussion Advance Directive Discussion [facility] Start: 08-01-2024 End: 08-01-2024 Patient encounter procedure 08/01/2024 12:00 PM EST Office Visit [facility] [address] [place] [address] Gucci Emery [address] [place], [place] [id number] follow up [place] [facility] Comment on above: follow up Start: 07-28-2024 End: 07-28-2024 Patient encounter procedure Podiatry Comment on above: Ingrown toenail f/u Start: 07-26-2024 End: 10-25-2024 Urinalysis complete panel - Urine URINALYSIS, WITH MICROSCOPIC Lab Routine Urinary urgency Microscopic hematuria Expected: 07/26/2024, Expires: 10/25/2024 [facility] Comment on above: Expected: 07/26/2024, Expires: Start: 07-18-2024 End: 07-18-2024 Patient encounter procedure 07/18/2024 11:00 AM EST Office Visit [facility] [address] [place] [address] Gucci Emery [address] [place], [place] [phone] follow up [facility] Comment on above: follow up Start: 07-15-2024 Annual PCP Team Chronic Disease Visit Annual PCP Team Chronic Disease Visit [facility] Start: 06-22-2024 RSV Vaccine (1 - 1-dose 60+ series) RSV Vaccine (1 - 1-dose 60+ series) [facility] Comment on above: Postponed from 2005 (Declined at t his time) Start: 06-22-2024 RSV Vaccine (1 - 1-dose 75+ series) RSV Vaccine (1 - 1-dose 75+ series) [facility] Comment on above: Postponed from 2020 (Declined at t his time) Start: 06-09-2024 Annual PCP Team Chronic Disease Visit Annual PCP Team Chronic Disease Visit [facility] Start: 06-09-2024 BP Controlled (<130/80) BP Controlled (<130/80) [facility] Start: 06-09-2024 Urine microalbumin profile DTaP,Tdap,Td Vaccine (1 - Tdap) [facility] Comment on above: Postponed from 1964 (Declined at t his time) Start: 05-10-2024 End: 05-10-2024 Patient encounter procedure 05/10/2024 4:15 PM EDT Office Visit Vascular Surgery [address] [place] [address] Alec Arthur, [address] [place] [address] Left foot pain Vascular Surgery Comment on above: Left foot pain Start: 05-09-2024 End: 05-09-2024 Patient encounter procedure [facility] Comment on above: MIND BODY Essential hypertensi on [I10]; Paroxysmal atrial fibrillation (HCC) [I48.0] Start: 05-06-2024 End: 05-06-2024 Patient encounter procedure 05/06/2024 1:40 PM EDT Office Visit [facility] [place] [address] [place], [place] [phone] Moon Teixeira MD [address] [place], [place] [phone] 4 wk follow up [facility] [place] Comment on above: 4 wk follow up Start: 05-03-2024 End: 05-03-2024 Patient encounter procedure Cardiology Comment on above: DX: PAF Start: 05-03-2024 End: 05-03-2024 ambulatory 05/03/2024 12:45 PM EDT Results Only Cardiology [address] [place] [id number] DX: PAF Cardiology Comment on above: DX: PAF Start: 05-02-2024 End: 05-02-2024 Patient encounter procedure 05/02/2024 12:00 PM EDT Office Visit [facility] [address] [place] [address] Gucci Emery [address] [place], [place] [phone] MIND BODY [facility] Comment on above: MIND BODY Start: 04-24-2024 Influenza vaccination Influenza Vaccine (#1) [facility] Start: 04-18-2024 End: 04-18-2024 Patient encounter procedure 04/18/2024 12:00 PM EDT Office Visit [facility] [address] [place] [address] Gucci Emery [address] [place], [place] [id number] MIND BODY [facility] Comment on above: MIND BODY Start: 04-05-2024 End: 07-05-2024 Cobalamin (Vitamin B12) [Mass/volume] in Serum or Plasma VITAMIN B12 Lab Routine Vitamin B12 deficiency Expected: 04/05/2024, Expires: 07/05/2024 [facility] Comment on above: Expected: 04/05/2024, Expires: Start: 04-05-2024 End: 07-05-2024 Ferritin [Mass/volume] in Serum or Plasma FERRITIN Lab Routine Iron deficiency Expected: 04/05/2024, Expires: 07/05/2024 [facility] Comment on above: Expected: 04/05/2024, Expires: Start: 04-05-2024 End: 07-05-2024 Iron and Iron binding capacity panel - Serum or Plasma IRON AND TIBC Lab Routine Iron deficiency Expected: 04/05/2024, Expires: 07/05/2024 [facility] Comment on above: Expected: 04/05/2024, Expires: Start: 04-05-2024 End: 07-05-2024 Thyrotropin [Units/volume] in Serum or Plasma THYROID STIMULATING HORMONE Lab Routine Weight gain Fatigue, unspecified type Expected: 04/05/2024, Expires: 07/05/2024 [facility] Comment on above: Expected: 04/05/2024, Expires: Start: 04-05-2024 End: 04-05-2024 Patient encounter procedure 04/05/2024 9:00 AM EDT Office Visit [facility] [place] [address] [place], [place] [phone] Moon Teixeira MD [address] [place] [address] Establish Care (tele enc 01/01/24) [facility] [place] Comment on above: Establish Care (tele enc 01/01/24) Start: 04-04-2024 End: 04-04-2024 Patient encounter procedure 04/04/2024 12:00 PM EDT Office Visit [facility] [address] [place] [address] Gucci Emery [address] [place], [place] [phone] MIND BODY [facility] Comment on above: MIND BODY Start: 03-18-2024 End: 03-18-2024 Patient encounter procedure 03/18/2024 10:00 AM EDT Office Visit Vasculary Surgery [address] [place], [place] [phone] Near syncope [R55] Vasculary Surgery Comment on above: Near syncope [R55] Start: 03-01-2024 End: 03-01-2024 ambulatory 03/01/2024 11:30 AM EDT OT/PT/Speech Visit [facility] [address] [place] [address] Tru Marquez PT Neck pain [M54.2] [facility] Comment on above: Neck pain [M54.2] Start: 02-22-2024 End: 02-22-2024 Patient encounter procedure 02/22/2024 10:30 AM EDT Office Visit Cardiology [address] [place] [address] CHE (dyspnea on exertion) [R06.09] Cardiology Comment on above: CHE (dyspnea on exertion) [R06.09] Start: 02-21-2024 Influenza vaccination Influenza Vaccine (#1) [facility] Comment on above: Postponed from 04/24/2023 (Declined at t his time) Start: 02-10-2024 End: 02-10-2024 Patient encounter procedure 02/10/2024 3:30 PM EDT Office Visit [facility] Cardiology [address] [place] [address] Pj Mejia MD [address] [facility] [facility] [place] [place] [address] new patient referral [facility] Cardiology Comment on above: new patient referral Start: 02-10-2024 End: 05-11-2024 Comprehensive metabolic 2000 panel - Serum or Plasma [facility] Work Phone: Comment on above: Expected: 02/10/2024, Expires: Start: 02-10-2024 End: 05-11-2024 LIPID PANEL, NONFASTING [facility] Comment on above: Expected: 02/10/2024, Expires: Start: 01-26-2024 End: 01-26-2024 Patient encounter procedure 01/26/2024 4:00 PM EDT Office Visit Vascular Surgery [address] [address] Alec Arthur, [address] [place] [address] follow up Vascular Surgery Comment on above: follow up Start: 12-31-2023 ANNUAL PCP TEAM CHRONIC DISEASE VISIT ANNUAL PCP TEAM CHRONIC DISEASE VISIT [facility] Start: 12-09-2023 ANNUAL PCP TEAM CHRONIC DISEASE VISIT ANNUAL PCP TEAM CHRONIC DISEASE VISIT [facility] Start: 11-09-2023 End: 02-08-2024 Basic metabolic 2000 panel - Serum or Plasma BASIC METABOLIC PNL Lab Routine Polyuria Polydipsia Expected: 11/09/2023, Expires: 02/08/2024 [facility] Work Phone: Comment on above: Expected: 11/09/2023, Expires: 4 Start: 11-09-2023 End: 02-08-2024 Hemoglobin A1c in Blood HGB A1C Lab Routine Polyuria Polydipsia Expected: 11/09/2023, Expires: 02/08/2024 [facility] Work Phone: Comment on above: Expected: 11/09/2023, Expires: 4 Start: 10-29-2023 BP CONTROLLED (<130/80) BP CONTROLLED (<130/80) [facility] Start: 10-21-2023 ANNUAL PCP TEAM CHRONIC DISEASE VISIT ANNUAL PCP TEAM CHRONIC DISEASE VISIT [facility] Start: 10-21-2023 BP CONTROLLED (<130/80) BP CONTROLLED (<130/80) [facility] Start: 08-24-2023 Advance Directive Discussion Advance Directive Discussion [facility] Start: 07-10-2023 ANNUAL PCP TEAM CHRONIC DISEASE VISIT ANNUAL PCP TEAM CHRONIC DISEASE VISIT [facility] Start: 07-10-2023 COVID-19 VACCINE (4 - Booster for Moderna series) COVID-19 VACCINE (4 - Booster for Moderna series) [facility] Comment on above: Postponed from 08/29/2021 (Declined at t his time) Start: 07-10-2023 COVID-19 VACCINE (4 - Moderna series) COVID-19 VACCINE (4 - Moderna series) [facility] Comment on above: Postponed from 08/29/2021 (Declined at t his time) Start: 06-09-2023 End: 09-08-2023 Comprehensive metabolic 2000 panel - Serum or Plasma COMP METABOLIC PANEL Lab Routine Essential hypertension Expected: 06/09/2023, Expires: 09/08/2023 [facility] Work Phone: Comment on above: Expected: 06/09/2023, Expires: 4 Start: 06-09-2023 End: 09-08-2023 Lipid 1996 panel - Serum or Plasma LIPID PANEL BASIC Lab Routine Hyperlipidemia, mixed Expected: 06/09/2023, Expires: 09/08/2023 [facility] Work Phone: Comment on above: Expected: 06/09/2023, Expires: 4 Start: 06-09-2023 End: 09-08-2023 Thyrotropin [Units/volume] in Serum or Plasma TSH BLD Lab Routine Hypothyroidism, acquired Expected: 06/09/2023, Expires: 09/08/2023 [facility] Work Phone: Comment on above: Expected: 06/09/2023, Expires: 4 Start: 04-24-2023 Influenza vaccination INFLUENZA (#1) [facility] Start: 01-23-2023 ANNUAL PCP TEAM CHRONIC DISEASE VISIT ANNUAL PCP TEAM CHRONIC DISEASE VISIT [facility] Start: 01-21-2023 End: 03-23-2023 C reactive protein [Mass/volume] in Serum or Plasma C-REACTIVE PROTEIN (CRP) Lab Routine Pain and swelling of toe, right Expected: 01/21/2023, Expires: 03/23/2023 [facility] Work Phone: Comment on above: Expected: 01/21/2023, Expires: 3 Start: 01-21-2023 End: 03-23-2023 CBC W Auto Differential panel - Blood CBC + DIFF Lab Routine Pain and swelling of toe, right Expected: 01/21/2023, Expires: 03/23/2023 [facility] Work Phone: Comment on above: Expected: 01/21/2023, Expires: 3 Start: 01-21-2023 End: 03-23-2023 Erythrocyte sedimentation rate SED RATE WESTERGREN Lab Routine Pain and swelling of toe, right Expected: 01/21/2023, Expires: 03/23/2023 [facility] Work Phone: Comment on above: Expected: 01/21/2023, Expires: 3 Start: 01-21-2023 End: 03-23-2023 Urate [Mass/volume] in Serum or Plasma URIC ACID BLOOD Lab Routine Pain and swelling of toe, right Expected: 01/21/2023, Expires: 03/23/2023 [facility] Work Phone: Comment on above: Expected: 01/21/2023, Expires: 3 Start: 01-07-2023 ANNUAL PCP TEAM CHRONIC DISEASE VISIT ANNUAL PCP TEAM CHRONIC DISEASE VISIT [facility] Start: 01-07-2023 BP CONTROLLED (<130/80) BP CONTROLLED (<130/80) [facility] Start: 01-07-2023 SHINGRIX VACCINE (2 of 3) SHINGRIX VACCINE (2 of 3) [facility] Comment on above: Postponed from 07/30/2013 (Insurance Cov erage) Start: 01-07-2023 Urine microalbumin profile DTAP,TDAP,TD (1 - Tdap) [facility] Comment on above: Postponed from 1964 (Insurance Cov erage) Start: 10-13-2022 [facility] Start: 10-13-2022 Patient discharge [facility] Start: 10-13-2022 Referral to occupational therapist [facility] Start: 10-13-2022 Referral to service [facility] Start: 10-12-2022 Ambulation without limitation [facility] Start: 10-12-2022 Assessment of risk of venous thromboembolism [facility] Start: 10-12-2022 Insertion of catheter into peripheral vein [facility] Start: 10-12-2022 Measuring intake and output [facility] Start: 10-12-2022 Providing care according to standard [facility] Start: 10-12-2022 [facility] Start: 10-12-2022 Following clinical pathway protocol [facility] Start: 10-12-2022 Verification routine [facility] Start: 10-12-2022 Admission procedure [facility] Start: 09-08-2022 [facility] Start: 08-24-2022 ADVANCE DIRECTIVE DISCUSSION ADVANCE DIRECTIVE DISCUSSION [facility] Start: 12-02-2021 Patient referral [facility] Work Phone: Start: 11-01-2021 COVID-19 VACCINE (4 - Booster for Moderna series) COVID-19 VACCINE (4 - Booster for Moderna series) [facility] Start: 08-24-2021 ADVANCE DIRECTIVE DISCUSSION ADVANCE DIRECTIVE DISCUSSION [facility] Start: 2020 RSV Vaccine (1 - 1-dose 75+ series) RSV Vaccine (1 - 1-dose 75+ series) [facility] Start: 06-05-2017 End: 06-05-2017 Appointment Appointment [facility] Work Phone: Start: 05-22-2017 End: 05-22-2017 Appointment Appointment [facility] Work Phone: Start: 05-14-2017 End: 05-19-2017 *BMP *BMP [facility] Work Phone: Start: 05-14-2017 End: 05-19-2017 25-Hydroxyvitamin D2+25-Hydroxyvitamin D3 [Mass/volume] in Serum or Plasma *Vitamin D (Calciferol) [facility] Work Phone: Start: 05-14-2017 End: 05-19-2017 CBC W Auto Differential panel - Blood *CBC without Diff [facility] Work Phone: Start: 05-14-2017 End: 05-14-2017 Follow up Appt 3 weeks Follow up Appt 3 weeks [facility] Work Phone: Start: 05-14-2017 End: 05-14-2017 Urinalysis complete panel - Urine *UAC- Urinalysis, Complete w/ Micro [facility] Work Phone: Start: 05-14-2017 End: 05-14-2017 Appointment Appointment [facility] Work Phone: Start: 05-14-2017 End: 05-19-2017 *BMP *BMP [facility] Work Phone: Start: 05-14-2017 End: 05-19-2017 25-Hydroxyvitamin D2+25-Hydroxyvitamin D3 [Mass/volume] in Serum or Plasma *Vitamin D (Calciferol) [facility] Work Phone: Start: 05-14-2017 End: 05-19-2017 CBC W Auto Differential panel - Blood *CBC without Diff [facility] Work Phone: Start: 05-14-2017 End: 05-14-2017 Follow up Appt 3 weeks Follow up Appt 3 weeks [facility] Work Phone: Start: 05-14-2017 End: 05-14-2017 Urinalysis complete panel - Urine *UAC- Urinalysis, Complete w/ Micro [facility] Work Phone: Start: 09-10-2016 End: 09-10-2016 Physical Therapy General Physical Therapy General Rehab [facility], [address] [place] [address], [id number] [facility] Work Phone: Start: 09-10-2016 End: 09-10-2016 Physical Therapy General Physical Therapy [facility], [address] [place] [address], [id number] [facility] Work Phone: Start: 09-04-2016 End: 09-04-2016 Radex hip unilateral with pelvis 2-3 views X-Ray, Hip, unilateral, with pelvis; 2-3 views [facility] Work Phone: Start: 09-04-2016 End: 09-04-2016 X-Ray, Hip, unilateral, with pelvis; 2-3 views X-Ray, Hip, unilateral, with pelvis; 2-3 views [facility] Work Phone: Start: 08-10-2014 End: 08-10-2014 Documentation of current medications SNOMED-CT: [id number] Current Medications Documented [facility] Work Phone: Start: 08-10-2014 End: 08-10-2014 Mri spinal canal cervical w/o contrast matrl MRI Cervical Spine [facility] Work Phone: Start: 08-10-2014 End: 08-10-2014 Radex spine cervical 2 or 3 views X-Ray, Spine, Cervical [facility] Work Phone: Start: 08-10-2014 End: 08-10-2014 Documentation of current medications SNOMED-CT: [id number] Current Medications Documented [facility] Work Phone: Start: 08-10-2014 End: 08-10-2014 Mri neck spine w/o dye MRI Cervical Spine [facility] Work Phone: Start: 08-10-2014 End: 08-10-2014 X-ray exam of neck spine X-Ray, Spine, Cervical [facility] Work Phone: Start: 07-30-2013 SHINGRIX VACCINE (2 of 3) SHINGRIX VACCINE (2 of 3) [facility] Start: 11-22-2010 Medicare Annual Wellness Visit Medicare Annual Wellness Visit [facility] Start: 1964 Urine microalbumin profile [facility] Start: 12-01-1963 Anxiety Screening Anxiety Screening [facility] Start: 12-01-1963 BP CONTROLLED (<130/80) BP CONTROLLED (<130/80) [facility] in Start: 12-01-1963 SPIROMETRY SPIROMETRY [facility] Bacteria identified in Urine by Culture URINE CULTURE Microbiology Routine Urinary urgency Urge incontinence 07/26/2024 10:18 AM EST [facility] End: 10-21-2023 ECG COMPLETE ECG COMPLETE ECG Routine Paroxysmal atrial tachycardia (HCC) Paroxysmal atrial fibrillation (HCC) 1 Occurrences starting 10/21/2022 until 10/21/2023 [facility] Work Phone: Comment on above: 1 Occurrences starting 10/21/2022 until 10/21/2023 End: 10-29-2023 ECG COMPLETE ECG COMPLETE ECG Routine Paroxysmal atrial fibrillation (HCC) Paroxysmal atrial tachycardia (HCC) 1 Occurrences starting 10/28/2022 until 10/29/2023 [facility] Work Phone: Comment on above: 1 Occurrences starting 10/28/2022 until 10/29/2023 End: 10-21-2024 ECG COMPLETE ECG COMPLETE ECG Routine Paroxysmal atrial fibrillation (HCC) Paroxysmal atrial tachycardia (HCC) 1 Occurrences starting 10/21/2023 until 10/21/2024 [facility] Work Phone: Comment on above: 1 Occurrences starting 10/21/2023 until 10/21/2024 End: 05-03-2025 ECG COMPLETE ECG COMPLETE ECG Routine Moderate episode of recurrent major depressive disorder (HCC) 1 Occurrences starting 05/03/2024 until 05/03/2025 [facility] Work Phone: Comment on above: 1 Occurrences starting 05/03/2024 until 05/03/2025 End: 12-30-2025 ECG COMPLETE ECG COMPLETE ECG Routine Paroxysmal atrial fibrillation (HCC) 1 Occurrences starting 12/30/2024 until 12/30/2025 [facility] Work Phone: Comment on above: 1 Occurrences starting 12/30/2024 until 12/30/2025 End: 02-09-2025 Echocardiography ECHO Cardiology Routine CHE (dyspnea on exertion) Near syncope Lightheadedness 1 Occurrences starting 02/10/2024 until 02/09/2025 [facility] Comment on above: 1 Occurrences starting 02/10/2024 until 02/09/2025 End: 11-25-2025 MR Brain WO contrast MRI BRAIN WO IVCON Radiology Routine Transient cerebral ischemia, unspecified type 1 Occurrences starting 10/26/2024 until 11/25/2025 [facility] Work Phone: Comment on above: 1 Occurrences starting 10/26/2024 until 11/25/2025 End: 02-20-2024 MRI FOOT/TOES WO IVCON RIGHT MRI FOOT/TOES WO IVCON RIGHT Radiology SU Pain and swelling of toe, right Other acute osteomyelitis of right foot (HCC) 1 Occurrences starting 01/21/2023 until 02/20/2024 [facility] Work Phone: Comment on above: 1 Occurrences starting 01/21/2023 until 02/20/2024 Patient Education [facility] Work Phone: Patient referral [facility] Work Phone: Polysomnography [facility] Work Phone: SWALLOW EVALUATION SWALLOW EVALU ATION Procedures Routine Cough, unspecified type Ordered: 05/17/2024 [facility] Work Phone: Comment on above: Ordered: 05/17/2024 UA DIP B/O UA DIP B/O Lab R outine Urinary urgency Urge incontinence Ordered: 07/26/2024 [facility] Work Phone: Comment on above: Ordered: 07/26/2024 Urinalysis complete panel - Urine URINALYSIS (WITH MICROSCOPIC) WITH CULTURE IF INDICATED Lab Routine Balance disorder Hematuria, unspecified type 10/21/2024 12:19 PM EST [facility] Work Phone: End: 02-09-2025 US Carotid arteries - bilateral US CAROTID ARTERIES [facility] Lab Routine Near syncope Lightheadedness 1 Occurrences starting 02/10/2024 until 02/09/2025 [facility] Comment on above: 1 Occurrences starting 02/10/2024 until 02/09/2025 End: 07-28-2025 US.doppler Extremity arteries - bilateral for physiologic artery study PVR ANK PRESS [facility] Lab Routine Onychomycosis Diminished pulses in lower extremity 1 Occurrences starting 07/28/2024 until 07/28/2025 [facility] Work Phone: Comment on above: 1 Occurrences starting 07/28/2024 until 07/28/2025 End: 05-05-2025 XR Esophagus Views W contrast PO XR ESOPHAGRAM Radiology Routine Dysphagia, unspecified type Choking episode 1 Occurrences starting 04/05/2024 until 05/05/2025 [facility] Work Phone: Comment on above: 1 Occurrences starting 04/05/2024 until 05/05/2025 End: 01-29-2024 XR FOOT GENERAL 3V AP/LAT/OBL RIGHT XR FOOT GENERAL 3V AP/LAT/OBL RIGHT Radiology Routine Foot injury, right, initial encounter 1 Occurrences starting 12/30/2022 until 01/29/2024 [facility] Work Phone: Comment on above: 1 Occurrences starting 12/30/2022 until 01/29/2024 XR FOOT GENERAL 3V AP/LAT/OBL RIGHT XR FOOT GENERAL 3V AP/LAT/OBL RIGHT Radiology Routine Foot injury, right, initial encounter 12/30/2022 4:05 PM EDT [facility] Work Phone: End: 05-22-2025 XR Ribs - left 2 Views XR RIBS 2V AP/OBL LEFT Radiology Routine Rib pain Muscle spasm 1 Occurrences starting 04/22/2024 until 05/22/2025 [facility] Work Phone: Comment on above: 1 Occurrences starting 04/22/2024 until 05/22/2025 End: 07-27-2025 XR Ribs - left 2 Views XR RIBS 2V AP/OBL LEFT Radiology Routine Fall, sequela Painful rib 1 Occurrences starting 06/27/2024 until 07/27/2025 [facility] Work Phone: Comment on above: 1 Occurrences starting 06/27/2024 until 07/27/2025 XR Ribs - left 2 Views XR RIBS 2 V AP/OBL LEFT Radiology Routine Fall, sequela Painful rib 06/27/2024 11:26 AM EST [facility] End: 08-13-2024 XR WRIST GENERAL 3V PA/LAT/OBL RIGHT XR WRIST GENERAL 3V PA/LAT/OBL RIGHT Radiology Routine Right wrist pain 1 Occurrences starting 07/15/2023 until 08/13/2024 [facility] Work Phone: Comment on above: 1 Occurrences starting 07/15/2023 until 08/13/2024 XR WRIST GENERAL 3V PA/LAT/OBL RIGHT XR WRIST GENERAL 3V PA/LAT/OBL RIGHT Radiology Routine Right wrist pain 07/15/2023 10:57 AM EST [facility] Work Phone: [facility] Immunizations Immunization Date Immunization Notes Care Provider Maricel field 09-09-2024 Seasonal trivalent influenza vaccine, adjuvanted, preservative free Moon Teixeira MD Work Phone: [facility] 09-09-2024 influenza virus vacc ine, unspecified formulation Daquan Chanel Work Phone: [facility] 07-29-2023 influenza (HD-IIV4) vaccine, age 65+ yr, high dose, quadrivalent, PF (FLUZONE HIGH-DOSE) NA Chito PA-C Work Phone: [facility] 07-29-2023 influenza virus vacc ine, unspecified formulation Nirali Almanza PA-C Work Phone: [facility] 07-24-2022 influenza, injectabl e, quadrivalent, preservative free [facility] 07-24-2022 influenza, seasonal, injectable PA NA Dale PA Work Phone: [facility] 07-24-2022 influenza virus vacc ine, unspecified formulation Linda Schrader [facility] Work Phone: [facility] 07-10-2022 influenza, high-dose , quadrivalent vaccine (FLUZONE HIGH DOSE QUADRIVALENT) NA Dale PA-C Work Phone: [facility] 08-22-2021 influenza, high-dose , quadrivalent vaccine (FLUZONE HIGH DOSE QUADRIVALENT) NA Dale PA-C Work Phone: [facility] 07-04-2021 COVID-19 vaccine, fu ll dose (MODERNA) NA Dale PA-C Work Phone: [facility] 10-22-2020 COVID-19 vaccine, fu ll dose (MODERNA) NA Dale PA-C Work Phone: [facility] 09-24-2020 COVID-19 vaccine, fu ll dose (MODERNA) NA Dale PA-C Work Phone: [facility] 06-15-2020 influenza, high-dose , quadrivalent vaccine (FLUZONE HIGH DOSE QUADRIVALENT) NA Dale PA-C Work Phone: [facility] 08-11-2019 influenza, high dose seasonal, preservative-free NA Dale PA-C Work Phone: [facility] 06-16-2018 influenza, high dose seasonal, preservative-free NA Dale PA-C Work Phone: [facility] 08-20-2017 pneumococcal polysaccharide vaccine, 23 valent NA Dale PA-C Work Phone: [facility] 06-22-2017 influenza, high dose seasonal, preservative-free NA Dale PA-C Work Phone: [facility] 01-11-2016 pneumococcal conjuga te vaccine, 13 valent NA Dale PA-C Work Phone: [facility] 06-04-2013 influenza virus vacc ine, unspecified formulation NA Dale PA-C Work Phone: [facility] 06-04-2013 zoster vaccine, live NA Víctor on PA-C Work Phone: [facility] 06-07-2010 influenza virus vacc ine, unspecified formulation NA Dale PA-C Work Phone: [facility] Work Phone: 09-26-2009 pneumococcal polysaccharide vaccine, 23 valent NA Dale PA-C Work Phone: [facility] 07-03-2009 novel influenza-H1N1 -09, all formulations NA Dale PA-C Work Phone: [facility] 06-22-2007 influenza virus vacc ine, whole virus Moon Teixeira MD Work Phone: [facility] Payers Date Payer Category Payer Self-pay [id number] 2010 Medicare MEDICARE [id number] 1997 Blue [employer] Blue [employer] ANTHEM BC BS FEP PPO [id number] 1997 Unknown ANTHEM ANTHEM BC BS FEP PPO [id number] 1997-Present [phone] [id number] [place] [address] PPO [id number] 1997 Unknown ANTHEM ANTHEM BC BS FEP PPO [id number] 1997-Present [phone] [id number] [place], [place] [id number] PPO [id number] 1997 Unknown [id number] Medicare [id number] Unknown [id number]. 2.462 Unknown [id number] 10.09.830.1.031107.3.579. 2.462 Unknown [id number] 10.09.830.1.682559.3.579. 2.462 Unknown [id number] 2.16.840.1.480300.3.579. 2.462 Unknown [id number] 2.16.840.1.649341.3.579. 2.462 Unknown [id number] 2.16.840.1.263686.3.579. 2.462 Unknown [id number] 2.16.840.1.260201.3.579. 2.462 Unknown [id number] 2..840.1.981019.3.579. 2.462 Unknown [id number] 2.840.1.553287.3.579. 2.462 Unknown [id number] 2.840.1.087142.3.579. 2.462 Unknown [id number] 2.840.1.500480.3.579. 2.462 Unknown [id number] 2.840.1.112825.3.579. 2.462 Unknown [id number] 2.840.1.931320.3.579. 2.462 Unknown [id number] 2.840.1.865864.3.579. 2.462 Unknown [id number] 2..840.1.915198.3.579. 2.462 Unknown [id number] 2.840.1.114478.3.579. 2.462 Unknown [id number] 2.840.1.707480.3.579. 2.462 Unknown [id number] 2.840.1.600974.3.579. 2.462 Unknown [id number] 2.840.1.489376.3.579. 2.462 Unknown [id number] 2..840.1.429666.3.579. 2.462 Unknown [id number] 2..840.1.548372.3.579. 2.462 Unknown [id number] 2.840.1.028097.3.579. 2.462 Unknown [id number] 2.16.840.1.402210.3.579. 2.462 Unknown [id number] 2.16.840.1.830711.3.579. 2.462 Unknown [id number] 2.16.840.1.980606.3.579. 2.462 Unknown [id number] 2.16.840.1.771937.3.579. 2.462 Unknown [id number] 2.16.840.1.776862.3.579. 2.462 Unknown [id number] 2.16.840.1.164646.3.579. 2.462 Social History Date Type Detail Facility Start: 03-21-2021 End: 08-09-2023 Tobacco smoking status ORIS Unknown if ever smoked [facility] Start: 10-14-2018 Occasional [facility] Start: 03-10-2016 None [facility] Start: 06-07-2019 Alone [facility] Start: 08-22-2019 Non-smoker [facility] Start: 1945 Sex Assigned At Female W [facility] Start: 07-10-2022 End: 05-18-2025 Tobacco smoking status NHIS Never smoked tobacco [facility] Start: 01-07-2022 End: 01-26-2025 Alcohol intake Ex-drinker (finding) [facility] Start: 1945 Sex Assigned At Not on file C [facility] Start: 08-06-2021 End: 07-10-2022 Exposure to SARS-CoV-2 (event) Not sure [facility] Start: 05-12-2014 End: 07-10-2022 Tobacco use and exposure Smokeless tobacco non-user [facility] Start: 12-30-2022 End: 05-03-2024 History of Social function [facility] Start: 12-30-2022 End: 05-03-2024 Tobacco use panel [facility] Start: 07-25-2012 Adult Depression Screening Assessment 0 [facility] Start: 11-18-2024 End: 11-28-2024 Sex Female (finding) [facility] Medical Equipment Procedure Code Equipment Code Equipment Origin al Text Equipment Identifier Dates [address] q22 Linq [id number] Start: 12-01-2022 Goals Date Patient Goal Desired Activity /State Personal health goal Functional Status Date Assessment Result Facility 10-13-2022 Functional status Chair [facility] Work Phone: 01-05-2015 Are you deaf, or do you have serious difficulty hearing No 01/05/2015 9:03 AM EDT [facility] [facility] No [facility] 01-05-2015 Are you blind, or do you have serious difficulty seeing, even when wearing glasses No 01/05/2015 9:03 AM EDT Allie De Leon Cma No [facility] 01-05-2015 Do you have serious difficulty walking or climbing stairs No 01/05/2015 9:03 AM EDT Allie De Leon Cma No [facility] 01-05-2015 Do you have difficul ty dressing or bathing Yes 01/05/2015 9:03 AM EDT [place] C[facility] Yes [facility] 01-05-2015 Because of a physica l, mental, or emotional condition, do you have difficulty doing errands alone such as visiting a physician's office or shopping No 01/05/2015 9:03 AM EDT Laine De Leon Cmara No [facility] Mental Status Date Assessment Result Facility 05-18-2025 Cognitive function Voice/Name [facility] Work Phone: 03-15-2025 Cognitive function Level Of Cons ciousness Awake;Alert;Appropriate;Fol lows Commands [facility] Work Phone: 10-13-2022 Cognitive function Level Of Cons ciousness Awake;Alert;Appropriate;Fol lows Commands [facility] Work Phone: 10-12-2022 Cognitive function Voice/Name [facility] Work Phone: 10-12-2022 Cognitive function Level Of Cons ciousness Awake;Alert;Appropriate;Fol lows Commands [facility] Work Phone: 01-05-2015 Because of a physica l, mental, or emotional condition, do you have serious difficulty concentrating, remembering, or making decisions No 01/05/2015 9:03 AM Allie Valentino Cma [facility] Clinical Notes 03-01-2014 to 07-04-2025 Note Date & Type Note Facility 07-04-2025 Note HNO ID: [id number] Author: ALEC ARTHUR, DO Service: ? Author Type: Physician Type: Progress Notes Filed: 07/04/2025 17:17 Note Text: [facility] [place] DEPARTMENT OF VASCULAR SURGERY OUTPATIENT VISIT DATE July 04, 2025 OUTPATIENT VISIT TYPE ESTABLISHED SERVICE DATE: 07/04/2025 SERVICE TIME: 4:14 PM PRIMARY CARE PHYSICIAN: Moon Teixeira MD HISTORY OF PRESENT ILLNESS: Mrs. Berumen is a 79 year old female who presents today for a vascular surgery follow-up visit for atrophie miah. She continues to have burning pain and slight amount of drainage PAST MEDICAL HISTORY Diagnosis Date A-fib (HCC) [...] FLX DX W/COLLJ SPEC WHEN PFRMD 08/23/2019 [facility] repeat is not recommended NAIL REMOVAL PROCEDURE (W NOTE) Left 04/21/2025 Total nail chemical matrixectomy, left great toe NEUROPLASTY AND/TRANSPOS MEDIAN NRV CARPAL TUNNE 1990 Carpal tunnel decomp-bilateral PAST SURGICAL HISTORY OF 08/21/2005 EXCISION CYST LEFT MIDDLE FINGER PAST SURGICAL HISTORY OF right foot surgery- mortons neuroma PAST SURGICAL HISTORY OF 2013 left foot vein ablation TONSILLECTOMY PRIMARY/SECONDARY AGE 12/> 89 SOCIAL HISTORY SOCIAL HISTORY[1] MEDICATIONS: diosmin complex no.1 (VASCULERA) 630 mg tab Take 1 tablet by mouth once daily. baclofen 10 mg tablet Take 1 tablet [...] by mouth daily except 7.5mg on ( [facility]) Cholecalciferol, Vitamin D3, 50 mcg (2,000 unit) cap Take 2 capsules by mouth once daily. COQ10, UBIQUINOL, ORAL Take 30 mg by mouth. latanoprost (XALATAN) 0.005 % ophthalmic solution Use 1 Drop in both eyes daily at bedtime. mupirocin (BACTROBAN) 2 % ointment Apply to affected area once daily. (Patient not taking: Reported on 07/04/2025) escitalopram oxalate (LEXAPRO) 5 mg tablet Take 1 tablet by mouth once daily. (Patient not taking: Reported on 07/04/2025) furosemide (LASIX) 20 mg tablet Take 20 mg by mouth once daily. (Patient not taking: Reported on 07/04/2025) ALLERGIES: ALLERGIES Allergen Reactions Fragrances Cough, Shortness [...] Other: See Comments nausea PHYSICAL EXAM: BP 127/73 (BP Site: Left Arm, BP Position: Sitting, BP Cuff Size: Regular Adult) Pulse (!) 54 SpO2 97% Gen- no distress Ext- left leg 0.5 cm x 0.5 cm; trace edema, atrophie miah Diagnostic tests reviewed for today's visit: Most recent labs Most recent imaging IMPRESSION: Mrs. Berumen is a 79 year old female with venous ulceration, atrophie miah PLAN and RECOMMENDATIONS: Follow up in 2 weeks Continue compression and local wound care- continue antibiotic ointment Oxycodone as needed for pain Trial of trental to assist with healing SIGNATURE: Alec Arthur DO PATIENT NAME: Cady Berumen DATE: July 04, 2025 TIME: 4:14 PM [1] Social History Tobacco Use Smoking status: Never Smokeless tobacco: Never Vaping Use Vaping status: Never Used Substance Use Topics Alcohol use: Not Currently Drug use: No [facility] 06-06-2025 Note HNO ID: [id number] Author: ALEC ARTHUR DO Service: ? Author Type: Physician Type: Progress Notes Filed: 06/06/2025 13:38 Note Text: [facility] [place] DEPARTMENT OF VASCULAR SURGERY OUTPATIENT VISIT DATE June 06, 2025 OUTPATIENT VISIT TYPE ESTABLISHED SERVICE DATE: 06/06/2025 SERVICE TIME: 9:31 AM PRIMARY CARE PHYSICIAN: Moon Teixeira MD HISTORY OF PRESENT ILLNESS: Mrs. Berumen is a 79 year old female who presents today for a vascular surgery follow-up visit for venous insufficiency and she has noticed a dry patch on left ankle. She is using adaptec to the area. She was evaluated with dermatology who diagnosed with atrophie miah. PAST MEDICAL HISTORY Diagnosis Date A-fib (HCC) [...] 08/23/2019 [facility] repeat is not recommended NAIL REMOVAL PROCEDURE (W NOTE) Left 04/21/2025 Total nail chemical matrixectomy, left great toe NEUROPLASTY AND/TRANSPOS MEDIAN NRV CARPAL TUNNE 1990 Carpal tunnel decomp-bilateral PAST SURGICAL HISTORY OF 08/21/2005 EXCISION CYST LEFT MIDDLE FINGER PAST SURGICAL HISTORY OF right foot surgery- mortons neuroma PAST SURGICAL HISTORY OF 2013 left foot vein ablation TONSILLECTOMY PRIMARY/SECONDARY AGE 12/> 1962 SOCIAL HISTORY SOCIAL HISTORY[1] MEDICATIONS: baclofen 10 mg tablet Take 1 [...] by mouth daily except 7.5mg on ( [facility]) Cholecalciferol, Vitamin D3, 50 mcg (2,000 unit) cap Take 2 capsules by mouth once daily. COQ10, UBIQUINOL, ORAL Take 30 mg by mouth. latanoprost (XALATAN) 0.005 % ophthalmic solution Use 1 Drop in both eyes daily at bedtime. mupirocin (BACTROBAN) 2 % ointment Apply to affected area once daily. (Patient not taking: Reported on 04/28/2025) escitalopram oxalate (LEXAPRO) 5 mg tablet Take 1 tablet by mouth once daily. (Patient not taking: Reported on 05/12/2025) furosemide (LASIX) 20 mg tablet Take 20 mg by mouth once daily. (Patient not taking: Reported on 04/28/2025) ALLERGIES: ALLERGIES Allergen Reactions Fragrances Cough, Shortness [...] Other: See Comments nausea PHYSICAL EXAM: BP 132/79 (BP Site: Left Arm, BP Position: Sitting, BP Cuff Size: Regular Adult) Pulse (!) 52 SpO2 97% Gen- no distress Ext- spider veins, varicose veins, trace edema, atrophie miah Diagnostic tests reviewed for today's visit: Most recent labs Most recent imaging IMPRESSION: Mrs. Berumen is a 79 year old female with venous insufficiency CEAP CLASSIFICATION OF VENOUS DISEASE: CLINICAL C6: Active Venou Ulcer S: Symptomatic, including ache, pain, tightness, skin irritation, heaviness, muscle cramps and other complaints attribultable to venous dysfunction ETIOLOGY Ep: Primary ANATOMIC As: Superficial veins Ad: Deep veins PATHOPYSIOLOGIC Pr: Reflux PLAN and RECOMMENDATIONS: Will get venous reflux testing and follow up Patient scheduled with [facility] wound center this week Prescription for percocet provided for acute pain related to venous ulcer SIGNATURE: Alec Arthur DO PATIENT NAME: Cady Berumen DATE: June 06, 2025 TIME: 9:31 AM [1] Social History Tobacco Use Smoking status: Never Smokeless tobacco: Never Vaping Use Vaping status: Never Used Substance Use Topics Alcohol use: Not Currently Drug use: No [facility] 05-18-2025 Discharge summary [facility] 05-18-2025 Radiology Diagnostic study note [facility] Imaging Services [address] [place], [place] [id number] Chest 1 View (Portable) MR#: [id number] Acct: [id number] Name: CADY BERUMEN Rep #: [id number] 2 : 1945 F 79 From: Shira Claros MD PCP: Dr. Moon Teixeira MD Status: REG E R Study:Chest 1 View (Portable) Date of Exam: 05/18/25 Exam# [id number] Ordering Dr: Ousmane Matias DO PROCEDURE: CHEST 1 VIEW (PORTABLE) 05/18/2025 REASON FOR EXAM: CHEST PAIN TECHNIQUE: Frontal view of the chest. COMPARISON: Chest x-ray 03/15/2025 FINDINGS: Hardware: Left atrial appendage occluder device. Heart: Heart size is mildly enlarged. Lungs: Mild bilateral pulmonary vascular congestion.Chronic scarring along left lung base. Mild bibasilar atelectasis. Bones: Age-related degenerative changes Other: None RAD/Chest 1 View (Portable) IMPRESSION: Mild bilateral pulmonary vascular congestion. Trace right pleural effusion. Reading Location: [id number] CC: Dr. Moon Teixeira MD; Dr. Ousmane Matias DO ~ A And P Technician: Signed [facility] 05-18-2025 Discharge summary Note Date/Time May 18, 2025 4:30pm [facility] Medical Records Department [address] [place] [address] Emergency Department Summary 05/18/25 MR#: [id number] Acct: [id number] Name: CADY BERUMEN Rep #:[id number] : 1945 79 From: Ousmane Dia PCP: Dr. Moon Teixeira MD Status:DEP E R Location: ED HPI History of Present Illness Chief Complaint: Palpitations Informant: patient Onset/Context/Timing Onset: Today Context: Gradual Onset Timing: Continuous Quality: Lightheaded Location: Generalized Worsened by: Nothing Relieved by: Nothing Narrative Narrative: Patient presents with low blood pressure and atrial fibrillation that became worse today. Patient states that her blood pressure was slowly declining at home. Patient states she felt lightheaded. Patient states nothing makes it better and nothing makes it worse. Patient states she has a history of paroxysmal atrial fibrillation. Patient states she does feel some tightness in her throat when she goes into atrial fibrillation. Patient denies any recent fevers or chills. Patient admits to some shortness of breath but denies any cough. Patient denies any chest pain. Patient admits to some pain in her left clavicular area. [facility] Medical History Shortness of breath PRAMOD (obstructive sleep apnea) intermediate (current) use of 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 Paroxysmal atrial fibrillation Change in bowel habit Asthma Near syncope Atrial tachycardia (10/14/18) Varicose vein of leg Vestibular neuritis Osteopenia Osteoarthritis Chronic venous insufficiency Glaucoma Essential (primary) hypertension Home Medications ?Medication ?Instructions ?Recorded ?Last Taken ?Type latanoprost 0.005 % eye drops 1 drp EACH EYE QHS eye h ealt 03/10/16 03/14/25 History coenzyme Q10 50 mg [...] PO DAILY 03/15/25 Unknown History tablet (C-500) cholecalciferol (vitamin D3) 25 2,000 unit PO DAILY vi tamin 03/28/25 Unknown History mcg (1,000 unit) tablet Allergy/AdvReac Type Severity Reaction Status Date / Time cat dander Allergy Mild congestion Verified 05/18/25 12:31 grass pollen Allergy Mild Cough, Verified 05/18/25 12:31 rhinitis house dust Allergy Mild Cough, Verified 05/18/25 12:31 rhinitis mold Allergy Mild Cough, Verified 05/18/25 12:31 rhinitis tree and shrub pollen Allergy Mild Cough, Verified 05/18/25 12:31 rhinitis Sulfa (Sulfonamide Allergy Itching Verified 05/18/25 12:31 Antibiotics) losartan AdvReac Severe dizziness, Verified 05/18/25 12:31 severe amlodipine AdvReac Intermediate dizziness Verified 05/18/25 12:31 lisinopril AdvReac Intermediate Nagging Verified 05/18/25 12:31 dry cough Benzodiazepines AdvReac Other Verified 05/18/25 12:31 diazepam (From Valium) AdvReac Other Verified 05/18/25 12:31 Family History Father Myocardial infarction from [place] age 61 Heart disease Diabetes Sister Breast cancer 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 Surgical History history [...] Reports palpitations; Denies chest pain Respiratory/Chest Respiratory/Chest: Reports dyspnea; Denies cough Gastrointestinal Gastrointestinal: Denies nausea or vomiting Genitourinary Genitourinary ED: Denies dysuria or hematuria Musculoskeletal Musculoskeletal: Reports neck pain; Denies back pain Integumentary Denies abscess or rash Neurologic Neurologic: Denies headache(s) or weakness Allergic/Immunologic Allergic/Immunologic ED: Denies mouth swelling or urticaria EXAM Physical Exam Const Vital Signs: 05/18/25 12:27 05/18/25 13:00 05/18/25 13:27 Temperature 98.0 F Temperature Source Oral Pulse Rate 94 78 Respiratory Rate 16 22 H Respiratory Effort Normal Blood Pressure 146/89 H 142/86 H Blood Pressure Mean 108 104 Pulse Ox 97 97 Oxygen Delivery Method Room Air Room Air 05/18/25 13:29 05/18/25 14:00 05/18/25 15:00 Temperature Temperature Source Pulse Rate 69 54 L Respiratory Rate 22 H 17 Respiratory Effort Blood Pressure 123/80 H 129/72 H Blood Pressure Mean 94 91 Pulse Ox 98 96 Oxygen Delivery Method Room Air Room Air Positive well nourished and well developed General Appearance ED: well developed and NAD HEENT Reports moist mucous membranes Neck supple and no JVD Chest Wall palpation of chest normal Resp normal respiratory effort and clear to auscultation bilaterally Cardio regular rate Rhythm: abnormal rhythm irregularly irregular GI non-tender and non-distended Palpation: soft Neuro oriented x3, CN's II-XII intact bilaterally and no sensory deficits noted Sensorium / Orientation: alert Motor Exam: strength 5/5 throughout Psych mental status grossly normal MDM MDM MDM Narrative Medical decision making narrative: Differential diagnosis includes cardiac dysrhythmia, cardiac ischemia, pneumonia, bronchitis, electrolyte abnormality, coagulopathy, and anxiety. EKG will be obtained to assess for cardiac dysrhythmia or cardiac ischemia. Chest x-ray will be obtained to assess for pneumonia. CBC lightly abraded assessment leukocytosis and anemia. Basic metabolic profile will be obtained to assess forelectrolyte abnormality and renal function. High-sensitivity troponin will be obtained to assess for cardiac ischemia. 2-hour repeat high-sensitivity troponin will be obtained to assess for ongoing cardiac ischemia. Serum magnesium level will be obtained to assess for hypomagnesemia and hypomagnesemia. PT with INR and PTT will be obtained to assess for coagulopathy. Lab Data Attestation: I reviewed the patient's lab results. Lab results narrative: CBC was reviewed and was within normal limits. Basic metabolic profile was within normal limits. Serum magnesium level was reviewed and slightly elevated at 2.4. PT with INR and PTT were reviewed. Pro time was elevated at 31.2. INRis therapeutic at 2.9. PTT was normal at 34.4. Initial high-sensitivity troponin was elevated as normal at 9. 2-hour repeat high-sensitivity troponin was reviewed and was normal at 8. Labs: Laboratory Results - last 24 hr 05/18/25 05/18/25 13:25 15:20 WBC 4.9 RBC 4.02 L Hgb 12.9 Hct 38.7 MCV 96.3 MCH 32.1 H MCHC 33.3 RDW Std Deviation 47.4 H RDW Coeff of Dulce 13.3 Plt Count 175 MPV 12.3 H Immature Gran % (Auto) 0.200 Neut % (Auto) 63.8 Lymph % (Auto) 20.2 Hoke % (Auto) 12.6 H Eos % (Auto) 2.2 Baso % (Auto) 1.0 Absolute Neuts (auto) 3.2 Absolute Lymphs (auto) 1.00 Nucleated RBC % 0 PT 31.2 H INR 2.9 APTT 34.4 Sodium 141 Potassium 4.3 Chloride 107 Carbon Dioxide 21.0 Anion Gap 13 BUN 17 Creatinine 0.79 Estim Creat Clear Calc 58.94 Est GFR (MDRD) Non-Af 76 BUN/Creatinine Ratio 21.8 H Glucose 95 Calcium 9.1 Magnesium 2.4 H Troponin T High Sens 9 Troponin T Hi Sens 2 Hr 8 Radiography Chest X-Ray - ED: 1 View, Read by ED Physician, Read by Radiologist and No AcuteDisease Diagnostic Testing: Clinical Impression(s) from Imaging Studies Chest X-Ray 05/18/25 13:30 IMPRESSION: Mild bilateral pulmonary vascular congestion. Trace right pleural effusion. Reading Location: [facility] Portable 1 view chest x-ray was obtained. On my independent interpretation, lung hooper show mild bilateral pulmonary vascular congestion. There is normal cardiac silhouette. Bony thorax is normal. There is no acute process noted. Radiologist also interpreted the x-ray and agrees. EKG Initial EKG: Attestation: I personally reviewed and interpreted this EKG as follows: Interpretation: Atrial Fibrillation (83) Comments: EKG was obtained. On my independent interpretation, shows atrial fibrillation with a rate of 83. QRS interval is normal at 74 ms. QTc interval is normal at 420 ms. [place] was normal. There are no acute ST or T wavechanges noted. Prior EKG tracings: available for review Prior: Changed (Compared to EKG dated 03/28/2025, the atrial fibrillation isnew. However, compared to EKG dated 09/26/2024 there are no acute changes.) Follow-up EKG: Attestation: I personally reviewed and interpreted this EKG as follows: Interpretation: No Acute Injury Pattern and Sinus Bradycardia (57) Comments: EKG was obtained. On my independent interpretation, it showed asinus bradycardia with a rate of 57. VT interval, QRS interval, and QTc intervals were all normal. [place] was normal. There are no acute ST or T wave changes. Prior EKG tracings: available for review Prior: Unchanged (03/28/2025) Management Discussion w/another healthcare provider: [facility] (Dr. Lovelace) Treatment and Re-Evaluation :: Patient was given aspirin. On reevaluation at 1500, patient was noted to be in a normal sinus rhythm. Patient was feeling better. Case was discussed with . He recommended continuing her current medications as previously prescribed. Patient was instructed to follow-up with her ablation as scheduled. Patient understood and was agreeable with the plan. All questions were answered. 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 Instructions: ED AFIB Prescriptions: No Action latanoprost 1 DROP bottle 1 drp EACH EYE QHS cholecalciferol (vitamin D3) 25 mcg (1,000 unit) tablet 2,000 unit PO DAILY coenzyme Q10 50 MG tablet,chewable 30 mg PO DAILY warfarin 5 mg tablet 7.5 mg PO [facility] Protocol: Dose Management Condition: Thursday Dose/Route: [...] mg tablets Protocol Text: Adjustment Start Date: Thursday04/28/25 INR Value: 1.7 INR Date: 04/28/25 Recheck Date: 05/05/25 timolol maleate 0.5 % drops 1 drp [...] mg tablets Protocol Text: Adjustment Start Date: Thursday04/28/25 INR Value: 1.7 INR Date: 04/28/25 Recheck Date: 05/05/25 Rx Instructions: 5 mg orally M/W/F, 7.5 mg (1.5 tablets) S/T//S or as directed Primary Care Provider: Moon Teixeira Referrals: Moon Teixeira MD [Primary Care Provider, Internal Medicine] - 5-7 Days Yinka Lovelace MD [Med Staff - Active Staff, Cardiology] - Keep Anum appointment Activity Restrictions/Additional Instructions: Continue your medications as previously prescribed. Print Language: Citizen Of [place] Disposition Disposition: Home, Self Care What to do if you have Problems For any increased pain, shortness of breath, bleeding, nausea or vomiting, chestpain, or any unexpected problems, contact your Primary Care Provider. Call [facility] ([phone]) or report to the closest Emergency Room. Call 911 if necessary. 05/18/251653 <Electronically signed by Ousmane Matias DO> Cosigner Signature (if applicable): CC: Dr. Moon Teixeira MD ~ Signed [facility] Work Phone: [phone] 839-267809-20-2025 NoteHNO ID: [id number] Author: DAQUAN BUCHANAN, ? Service: ? Author Type: Physician Type: Progress Notes Filed: 05/13/2025 07:12 Note Text: Subjective The patient is a 79-year-old female with a history of venous insufficiency and atrophie miah, presenting for follow-up on a left great toenail removal. The patient reports ongoing tenderness and drainage from the left great toe following toenail removal. She describes the wound as slowly improving but still very tender, with concerns about a black spot and a trench appearance. She has been applying mupirocin and soaking the toe in Epsom salt daily. 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 She inquires about when she will be able to wear shoes comfortably again. Musculoskeletal: (+) left great toe pain, (+) leg pain Skin: (+) dry skin of legs, (+) drainage from left great toe PAST MEDICAL HISTORY Diagnosis Date A-fib (HCC) [...] deficiency 09/20/2013 Current Outpatient Medications Medication Sig Dispense Refill baclofen 10 mg tablet Take 1 tablet by mouth three times a day as needed (muscle spasms). 30 tablet 1 metoprolol tartrate, short acting, (LOPRESSOR) 25 mg tablet Take 12.5 mg by mouth as needed. Takes as needed for rapid HR timolol maleate (TIMOPTIC) 0.5 % ophthalmic solution Use 1 Drop in both eyes twice daily. warfarin (COUMADIN) 5 mg tablet Take 1 tablet by mouth daily except 7.5mg on ( [facility]) 30 tablet 11 Cholecalciferol, Vitamin D3, 50 mcg (2,000 unit) cap Take 2 capsules by mouth once daily. 60 capsule 11 COQ10, UBIQUINOL, ORAL Take 30 mg by mouth. latanoprost (XALATAN) 0.005 % ophthalmic solution Use 1 Drop in both eyes daily at bedtime. mupirocin (BACTROBAN) 2 % ointment Apply to affected area once daily. (Patient not taking: Reported on 04/28/2025) 30 g 2 escitalopram oxalate (LEXAPRO) 5 mg tablet Take 1 tablet by mouth once daily. (Patient not taking: Reported on 05/12/2025) 30 tablet 2 furosemide (LASIX) 20 mg tablet Take 20 mg by mouth once daily. (Patient not taking: Reported on 04/28/2025) No current facility-administered medications for this visit. Family History Problem Relation Age of Onset Heart Father Allergies Sister Breast Cancer Sister age of 50's with diagnosis Prostate Cancer Brother Objective There were no vitals taken for this visit. - Cardiovascular: Dorsalis pedis and posterior tibial pulses palpable on the left foot; capillary refill time immediate to the left third toe; skin temperature warm from proximal to distal on the left lower extremity; multiple varicose veins noted on the left foot. - Skin: Left great toenail removed; nail bed mostly healed with very superficial wounds on the distal and proximal nail bed; no ascending erythema; no signs of infection; superficial wounds do not appear deep; no underlying bone exposed. Labs: Tests: (2022) Vascular Studies: - MAXWELL (left lower extremity): 1.05 and 1.19 - Toe pressure (left toe): 0.96 (normal) Imaging: Assessment AND Plan # Onychomycosis (B35.1) # Open wound of toe, subsequent encounter (T09.335U) Left great toenail was removed due to onychomycosis. Nail bed is mostly healed with a very superficial wound at the distal and proximal nail bed. No signs of infection are present. Vascular studies from 2022 demonstrated good blood flow to the left lower extremity and toe. - Continue applying a small amount of mupirocin to the wound. - May continue Epsom salt soaks for comfort if desired, though not necessary for healing. - Advised to keep the wound covered with a Band-Aid to protect from trauma. - Follow-up in 3 weeks to reassess healing progress. - discussed the black appearance of wound and this is likely associated with the application of silver nitrate. Recording using [employer] software for draft documentation of the visit was discussed with the patient/authorized care support representative; all questions welcomed and answered. Patient/authorized care support representative agreed to proceed Daquan Buchanan, [facility]09-05-2025 NoteHNO ID: [id number] Author: URMILA PICKENS PA Service: ? Author Type: Physician Change Management Type: Progress Notes Filed: 04/28/2025 18:53 Note Text: URGENT CARE JERMAINE Berumen is a 79 year old female. Patient presents with: Wound Check: Had toenail removed x 1 week ago, by [facility], is having throbbing, redness, warmth, swelling in great to on Left foot, x last night HPI The patient is a 79-year-old female presenting for evaluation of a toe infection following toenail removal. Toe Infection: - Toenail removed last Thursday due to chronic ingrown toenail. - Developed itching, redness, warmth, and throbbing pain in the toe last night. - Noted clear drainage from the site. - Denies fevers. - Using Neosporin; hesitant to use mupirocin due to concerns about its ingredients. - Follow-up appointment scheduled for the . Review of Systems Constitutional: (-) fever Musculoskeletal: (+) toe pain (throbbing), (+) toe warmth Skin: (+) toe itching, (+) toe redness, (+) serous drainage, (+) toe bleeding Objective BP 141/75 Pulse 60 Temp 36.3 ?C (97.3 ?F) Resp 20 Wt 75 kg (165 lb 5.5 oz) SpO2 97% BMI 28.38 kg/m? Physical Exam Vitals and nursing note reviewed. Constitutional: General: She is not in acute distress. Appearance: Normal appearance. She is not toxic-appearing. Musculoskeletal: Right foot: Normal range of motion and normal capillary refill. No swelling, tenderness or bony tenderness. Normal pulse. Comments: Right great toenail was removed. She does have erythema and warmth noted around the cuticle/nail bed. No bony tenderness. Normal ROM of the toe. Slight tenderness around the nailbed. She does have some purulent/yellowish appearance of the nailbed. No bleeding or drainage on exam Skin: General: Skin is warm and dry. Neurological: Mental Status: She is alert. { 1. Infection of toenail (L03.039) - Recent toenail removal for chronic ingrown toenail; now with erythema, warmth, throbbing pain, and serous drainage. - Start doxycycline BID for 7 days. - Advised to continue soaking the toe as previously instructed to keep the area moist. - Educated on signs of worsening infection (red streaks, fever) and advised to go to the emergency room if these occur. - Recording using [employer] software for draft documentation of the visit was discussed with the patient/authorized care support representative; all questions welcomed and answered. Patient/authorized care support representative agreed to proceed Diagnosis and treatment plan were discussed and questions were answered to the patient's satisfaction. Pt acknowledged understanding of concepts and follow up plan. Specific signs and symptoms that would indicate the need for higher level of care were discussed in detail warranting prompt ER evaluation. History and Record Review External record(s) reviewed: prior outpatient record. Differential Diagnoses - Skin infection from toenail removal is more likely for the following reason(s): suggested by HANDP - Osteomyelitis is less likely for the following reason(s): HANDP not suggestive Disposition The [facility] was [facility]. [facility] of Present illness Narrative* Urmila Pickens PA - 04/28/2025 6:52 PM EDT URGENT CARE JERMAINEBEAR Berumen is a 79 year old female. Patient presents with: Wound Check: Had toenail removed x 1 week ago, by [place], is having throbbing, redness, warmth, swelling in great to on Left foot, x last night HPI The patient is a 79-year-old female presenting for evaluation of a toe infection following toenail removal. Toe Infection: - Toenail removed last Thursday due to chronic ingrown toenail. - Developed itching, redness, warmth, and throbbing pain in the toe last night. - Noted clear drainage from the site. - Denies fevers. - Using Neosporin; hesitant to use mupirocin due to concerns about its ingredients. - Follow-up appointment scheduled for the . Review of Systems Constitutional: (-) fever Musculoskeletal: (+) toe pain (throbbing), (+) toe warmth Skin: (+) toe itching, (+) toe redness, (+) serous drainage, (+) toe bleeding Objective BP 141/75 Pulse 60 Temp 36.3 C (97.3 F) Resp 20 Wt 75 kg (165 lb 5.5 oz) SpO2 97% BMI 28.38 kg/m Physical Exam Vitals and nursing note reviewed. Constitutional: General: She is not in acute distress. Appearance: Normal appearance. She is not toxic-appearing. Musculoskeletal: Right foot: Normal range of motion and normal capillary refill. No swelling, tenderness or bony tenderness. Normal pulse. Comments: Right great toenail was removed. She does have erythema and warmth noted around the cuticle/nail bed. No bony tenderness. Normal ROM of the toe. Slight tenderness around the nailbed. She does have some purulent/yellowish appearance of the nailbed. No bleeding or drainage on exam Skin: General: Skin is warm and dry. Neurological: Mental Status: She is alert. { 1. Infection of toenail (L03.039) - Recent toenail removal for chronic ingrown toenail; now with erythema, warmth, throbbing pain, and serous drainage. - Start doxycycline BID for 7 days. - Advised to continue soaking the toe as previously instructed to keep the area moist. - Educated on signs of worsening infection (red streaks, fever) and advised to go to the emergency room if these occur. - Recording using [employer] software for draft documentation of the visit was discussed with the patient/authorized care support representative; all questions welcomed and answered. Patient/authorized care support representative agreed to proceed Diagnosis and treatment plan were discussed and questions were answered to the patient's satisfaction. Pt acknowledged understanding of concepts and follow up plan. Specific signs and symptoms that would indicate the need for higher level of care were discussed in detail warranting prompt ER evaluation. History and Record Review External record(s) reviewed: prior outpatient record. Differential Diagnoses - Skin infection from toenail removal is more likely for the following reason(s): suggested by H&P - Osteomyelitis is less likely for the following reason(s): H&P not suggestive Disposition The patient was discharged. [facility] Telephone encounter Note * Telephone Encounter - Alta Nagy LPN - 04/27/2025 11:40 AM EDT Patient called. Verified name and date of . Patient called to michael update that she is still doing the soaks but didn't necessarily need to leave a message unless she was supposed to have stoppeddoing them as the after visit summary does not indicate how long to do the soaks for. Advised to continue to do the soaks until follow up and area is still in healing process. Alta Nagy LPN [facility]09-04-[facility] Miscellaneous Notes* Telephone Encounter - Alta Nagy LPN - 04/27/2025 11:40 AM EDT Patient called. Verified name and date of . Patient called to mariajosee update that she is still doing the soaks but didn't necessarily need to leave a message unless she was supposed to have stoppeddoing them as the after visit summary does not indicate how long to do the soaks for. Advised to continue to do the soaks until follow up and area is still in healing process. Alta Nagy LPN documented in [facility] Telephone encounter Note * Telephone Encounter - Elisha Garcia RN - 04/21/2025 5:38 PM EDT Patient calling regarding post procedure complications. Conferenced to [facility] bone char kiln operator, Erica,to speak with provider emotional support teacher for Podiatry. [facility]08-29-2025 Miscellaneous Notes* Telephone Encounter - Elisha Garcia RN - 04/21/2025 5:38 PM EDT Patient calling regarding post procedure complications. Conferenced to [facility] bone char kiln operator, Erica,to speak with provider emotional support teacher for Podiatry. [facility] Telephone encounter Note * Telephone Encounter - Megan Skelton RN - 04/21/2025 4:17 PM EDT Returned patient's call. She states that the toe is not too painful, but is uncomfortable. Informedher that she can alternate between the Tylenol and Motrin, elevate the foot, apply ice (not directly to the skin and no longer than 20 minutes), and if needed she can loosen the dressing a little. Patient is agreeable stating that she wanted to make sure it was okay to apply ice as it was not on the after instructions. She will try all the recommended strategies for relief. Patient will be able to soak the toe in warm water starting tomorrow which may also help with the pain. She is agreeable and will notify the office if she needs anything else. [address]29-2025 Miscellaneous Notes* Telephone Encounter - Megan Skelton RN - 04/21/2025 4:17 PM EDT Returned patient's call. She states that the toe is not too painful, but is uncomfortable. Informedher that she can alternate between the Tylenol and Motrin, elevate the foot, apply ice (not directly to the skin and no longer than 20 minutes), and if needed she can loosen the dressing a little. Patient is agreeable stating that she wanted to make sure it was okay to apply ice as it was not on the after instructions. She will try all the recommended strategies for relief. Patient will be able to soak the toe in warm water starting tomorrow which may also help with the pain. She is agreeable and will notify the office if she needs anything else. * Telephone Encounter - Alta Nagy LPN - 04/21/2025 3:51 PM EDT Patient called. Verified name and date of . Patient states her toenail where she had proceduredone this morning is throbbing pretty bad with tylenol and motrin alternating ineffective. She plans to put ice on the toe and is aware not to leave on for more than 20 minutes at a time and taking it easy this weekend. Discussed taking Tylenol and Motrin stacked but not together as she took Tylenol at 0700. Motrin at noon, with no relief. Please review and advise if anything else is recommended.Alta Nagy LPN documented in this [facility] Telephone encounter Note * Telephone Encounter - Alta Nagy LPN - 04/21/2025 3:51 PM EDT Patient called. Verified name and date of . Patient states her toenail where she had proceduredone this morning is throbbing pretty bad with tylenol and motrin alternating ineffective. She plans to put ice on the toe and is aware not to leave on for more than 20 minutes at a time and taking it easy this weekend. Discussed taking Tylenol and Motrin stacked but not together as she took Tylenol at 0700. Motrin at noon, with no relief. Please review and advise if anything else is recommended.Alta Nagy LPN [facility]08-29-2025 NoteHNO ID: [id number] Author: MEGAN SKELTON RN Service: ? Author Type: Registered Nurse Type: Progress Notes Filed: 04/22/2025 10:41 Note Text: Patient's wound irrigated with saline and dressed with bacitracin, non adherent gauze and coban. Post-op nail care reviewed with patient and printed copy provided. Patient verbalized understanding at this time.[facility]08-29-2025 History of Present illness Narrative* Megan Skelton RN - 04/21/2025 8:58 AM EDT Patient's wound irrigated with saline and dressed with bacitracin, non adherent gauze and coban. Post-op nail care reviewed with patient and printed copy provided. Patient verbalized understanding atthis time. * Megan Skelton RN - 04/21/2025 8:34 AM EDT UNIVERSAL PROTOCOL / SAFETY CHECKLIST Procedure to be Performed: Total nail chemical matrixectomy, left great toe Sign In: A Moment of CARE was completed. Appropriate PPE (Personal Protective Equipment) worn by all providers involved with the procedure. Special equipment utilized nail kit. Patient/Surrogate Stated/Verified: Patient name, Date of , Relevant allergies, and The intended procedure Time Out: Relevant labs, photos, and/or imaging studies are not applicable. Intended patient and procedure match the source document(s) (e.g. consent, H&P, associated studies [imaging, pathology]) match the intended patient and procedure. Consent obtained and matches the intended procedure. Yes. Correct side/site has been marked and visible. Medications required for this procedure are verified. Fire risk assessed and is not applicable. Implants: are not applicable. Sign Out: Specimens not collected. All instruments, equipment, possible retained foreign bodies are accounted for. Yes. The post-procedure plan of care has been communicated to the patient or surrogate. * Daquan Buchanan - 04/21/2025 8:05 AM EDT FOLLOW UP PODIATRIC OFFICE VISIT Chief Complaint: This 79 year old who presents for follow up:left great toenail Patient presents to clinic for evaluation of left great toenail. Complains of deformed toenail and desires permanent removal via chemical matrixectomy Is on coumadin and has held since Thursday evening Has no other complaints. PAIN EVALUATION No data found in the last 1 encounters. Hemoglobin A1C Date Value Ref Range Status 07/29/2022 5.5 4.3 - 5.6 % Final Comment: [place] [employer] guidelines indicate that patients with HgbA1c in the range 5.7-6.4% are at increased risk for development of diabetes, and intervention by lifestyle modification may be beneficial. HgbA1c greater or equal to 6.5% is considered diagnostic of diabetes. PCP: Moon Teixeira MD PAST MEDICAL HISTORY [...] deficiency 09/20/2013 Current Outpatient Medications Medication Sig escitalopram oxalate (LEXAPRO) 5 mg tablet Take 1 tablet by mouth once daily. (Patient taking differently: Take 5 mg by mouth once daily. On hold) baclofen 10 mg tablet Take 1 tablet [...] by mouth [facility] Cholecalciferol, Vitamin D3, 50 mcg (2,000 unit) cap Take 2 capsules by mouth once daily. COQ10, UBIQUINOL, ORAL Take 30 mg by mouth. latanoprost (XALATAN) 0.005 % ophthalmic solution Use 1 Drop in both eyes daily at bedtime. furosemide (LASIX) 20 mg tablet Take 20 mg by mouth once daily. (Patient not taking: Reported on 04/21/2025) No current facility-administered medications for this visit. [...] FLX DX W/COLLJ SPEC WHEN PFRMD 08/23/2019 [facility] Cebul repeat is not recommended NEUROPLASTY &/TRANSPOS MEDIAN NRV CARPAL TUNNE 1990 Carpal tunnel decomp-bilateral PAST SURGICAL HISTORY OF 08-21-05 EXCISION CYST LEFT MIDDLE FINGER PAST SURGICAL HISTORY OF right foot surgery- mortons neuroma PAST SURGICAL HISTORY OF 2013 left foot vein ablation TONSILLECTOMY PRIMARY/SECONDARY AGE 12/> 89 Physical Exam: OBJECTIVE: Constitutional: Pt is a well developed 79 year old female who is alert, oriented, cooperative and in no apparent distress. Eyes: Following during examination. No redness or drainage. Respiratory: RR normal and nonlabored. Even breathing. No evidence of distress. Psychology: Patient is engaged during conversation. Normal affect and mood. Does not appear depressed or anxious. NVSI unchanged from previous visit. Non-Invasive Vascular Laboratory [facility] Lower Extremity Arterial Physiology Study Bilateral/Complete Date [...] ankle: Normal at rest. Technologist: Maira Orellana Rad Ordering physician: DAQUAN BUCHANAN Interpreting physician: RHONDA Brown DO Dermatological: Left great toenail is thick, ingrowing, painful. Musculoskeletal/Orthopaedic: Patient has pain to palpation of left great toenail ASSESSMENT: (B35.1) Onychomycosis (primary encounter diagnosis) (L60.0) Ingrowing toenail of right foot PLAN: Discussed the left great toenail. The left great toenail is thick, discolored, dystrophic and tendsto ingrown. We discussed options not limited to periodic debridement vs removal of sides of the nail vs total nail removal. This patient has elected for total nail removal. WE reviewed pvr. She has what appears to be adequate perfusion to heal a toenail procedure. Discussed risks of toenail procedure not limited to infection, pain, swelling, bleeding, painful scarring, recurrence, loss of toe, need for revised procedure. Patient consented to proceed. Patient was properly identified by name and procedure. The left hallux was then injected with 3 cc of 1% lidocaine plain. An additional 2 cc of 1% lidocaine plain was injected. The toe was then prepped and draped in the usual aseptic technique. A digital tournicot was applied to the toe. The entire border was then freed and removed. Careful inspection was performed to assure no remaining spicule present. 3applications of phenol were then administered x 30 seconds each followed by alcohol rinse. Sterile dressing was then applied consisting of amerigel, guaze, marielena and coban. Tournicot was removed and hyperemic response was noted. Patient tolerated well. Patient will f/u in 2 weeks. Daquan Buchanan DPM documented in [facility] NoteHNO ID: [id number] Author: MEGAN SKELTON RN Service: ? Author Type: Registered Nurse Type: Progress Notes Filed: 04/22/2025 10:41 Note Text: UNIVERSAL PROTOCOL / SAFETY CHECKLIST Procedure to be Performed: Total nail chemical matrixectomy, left great toe Sign In: A Moment of CARE was completed. Appropriate PPE (Personal Protective Equipment) worn by all providers involved with the procedure. Special equipment utilized nail kit. Patient/Surrogate Stated/Verified: Patient name, Date of , Relevant allergies, and The intended procedure Time Out: Relevant labs, photos, and/or imaging studies are not applicable. Intended patient and procedure match the source document(s) (e.g. consent, HANDP, associated studies [imaging, pathology]) match the intended patient and procedure. Consent obtained and matches the intended procedure. Yes. Correct side/site has been marked and visible. Medications required for this procedure are verified. Fire risk assessed and is not applicable. Implants: are not applicable. Sign Out: Specimens not collected. All instruments, equipment, possible retained foreign bodies are accounted for. Yes. The post-procedure plan of care has been communicated to the patient or surrogate.[facility]08-29-2025 Instructions* Patient Instructions* Daquan Buchanan - 04/21/2025 8:14 AM EDT Post-Op Nail Instructions Minimize activity until the anesthesia wears off (about 2-8 hours). Increase activity to tolerance Remove bandage tomorrow Soak affected toe/foot in epsom salts for 15-20 minutes twice daily After soaking, apply antibiotic ointment (OTC Neosporin) to affected toe and re bandage OTC Ibuprofen if having pain, provided you have no allergies or intolerance to NSAIDS Mild drainage, redness, and blood is expected, but if you expeirence severe pain, increase in drainage, swelling, or red streaking please contact our office immediately Feel free to contact office as well if you have any questions/concerns [phone], ask for Podiatry Nurse documented in this [facility]25 NoteHNO ID: [id number] Author: DAQUAN BUCHANAN, ? Service: ? Author Type: Physician Type: Progress Notes Filed: 04/22/2025 10:41 Note Text: FOLLOW UP PODIATRIC OFFICE VISIT Chief Complaint: This 79 year old who presents for follow up:left great toenail Patient presents to clinic for evaluation of left great toenail. Complains of deformed toenail and desires permanent removal via chemical matrixectomy Is on coumadin and has held since Thursday evening Has no other complaints. PAIN EVALUATION No data found in the last 1 encounters. Hemoglobin A1C Date Value Ref Range Status 07/29/2022 5.5 4.3 - 5.6 % Final Comment: [place] [employer] guidelines indicate that patients with HgbA1c in the range 5.7-6.4% are at increased risk for development of diabetes, and intervention by lifestyle modification may be beneficial. HgbA1c greater or equal to 6.5% is considered diagnostic of diabetes. PCP: Moon Teixeira MD PAST MEDICAL HISTORY Diagnosis Date A-fib ([facility]) February 2021 Asthma (HCC) Atrial tachycardia ([facility]) 10/14/2018 BPPV (benign paroxysmal positional vertigo) 10/30/2014 Degenerative disc disease 08/10/2014 Mild Degenerative disc disease C6-C7 Mild Anterolisthesis C7-T-1`- See scanned document Essential hypertension, benign Fibromyalgia Glaucoma, open angle Hypothyroidism 10/14/2018 Varicose veins 08/25/2014 Varicose veins of other sites Venous stasis ulcer of ankle 07/18/2013 Vestibular neuronitis Vitamin D deficiency 09/20/2013 Current Outpatient Medications Medication Sig escitalopram oxalate (LEXAPRO) 5 mg tablet Take 1 tablet by mouth once daily. (Patient taking differently: Take 5 mg by mouth once daily. On hold) baclofen 10 mg tablet Take 1 tablet [...] by mouth daily except 7.5mg on ( [facility]) Cholecalciferol, Vitamin D3, 50 mcg (2,000 unit) cap Take 2 capsules by mouth once daily. COQ10, UBIQUINOL, ORAL Take 30 mg by mouth. latanoprost (XALATAN) 0.005 % ophthalmic solution Use 1 Drop in both eyes daily at bedtime. furosemide (LASIX) 20 mg tablet Take 20 mg by mouth once daily. (Patient not taking: Reported on 04/21/2025) No current facility-administered medications for this visit. [...] FLX DX W/COLLJ SPEC WHEN PFRMD 08/23/2019 [facility] Cebul repeat is not recommended NEUROPLASTY AND/TRANSPOS MEDIAN NRV CARPAL TUNNE 1990 Carpal tunnel decomp-bilateral PAST SURGICAL HISTORY OF 08-21-05 EXCISION CYST LEFT MIDDLE FINGER PAST SURGICAL HISTORY OF right foot surgery- mortons neuroma PAST SURGICAL HISTORY OF 2013 left foot vein ablation TONSILLECTOMY PRIMARY/SECONDARY AGE 12/1961 Physical Exam: OBJECTIVE: Constitutional: Pt is a well developed 79 year old female who is alert, oriented, cooperative and in no apparent distress. Eyes: Following during examination. No redness or drainage. Respiratory: RR normal and nonlabored. Even breathing. No evidence of distress. Psychology: Patient is engaged during conversation. Normal affect and mood. Does not appear depressed or anxious. NVSI unchanged from previous visit. Non-Invasive Vascular Laboratory [facility] Lower Extremity Arterial Physiology Study Bilateral/Complete Date [...] Dorsalis pedis: Multiphasic. Post tibial: Multiphasic. Right P (more content not included)...[facility]08-25-2025 Note HNO ID: [id number] Author: DAQUAN BUCHANAN, ? Service: ? Author Type: Physician Type: Progress Notes Filed: 04/17/2025 11:40 Note Text: Subjective Cady Berumen is a 79-year-old female with a history of atrial fibrillation, presenting for evaluation of a painful left great toenail with ingrowing tendencies. Cady reports recurrent pain in the left great toenail, particularly when the nail grows inward on the medial side. She has previously undergone removal of the second, third, and fourth toenails on the left foot, as well as two toenails on the right foot, and is considering removal of the left great toenail due to persistent discomfort. She is currently on Coumadin for atrial fibrillation and inquires about the implications of toenail removal while on anticoagulation therapy. She recalls a recent INR of 2.4, checked at the beginning of the month. Cady also notes thin skin around the affected area, causing pain during flexion and bending. She has been applying oil to the area in an attempt to alleviate discomfort. She denies current pain with ankle joint dorsiflexion or with movement of the foot in and out. She also denies any signs of infection at this time. Skin: (+) left great toenail pain, (+) thin skin of left great toe, (+) bleeding of left great toenail when trimming Musculoskeletal: (-) foot pain with movement PAST MEDICAL HISTORY Diagnosis Date A-fib ([facility]) February 2021 Asthma ([facility]) Atrial tachycardia ([facility]) 10/14/2018 BPPV (benign paroxysmal positional vertigo) 10/30/2014 Degenerative disc disease 08/10/2014 Mild Degenerative disc disease C6-C7 Mild Anterolisthesis C7-T-1`- See scanned document Essential hypertension, benign Fibromyalgia Glaucoma, open angle Hypothyroidism 10/14/2018 Varicose veins 08/25/2014 Varicose veins of other sites Venous stasis ulcer of ankle 07/18/2013 Vestibular neuronitis Vitamin D deficiency 09/20/2013 Current Outpatient Medications Medication Sig Dispense Refill escitalopram oxalate (LEXAPRO) 5 mg tablet Take 1 tablet by mouth once daily. (Patient taking differently: Take 5 mg by mouth once daily. On hold) 30 tablet 2 baclofen 10 mg tablet Take 1 tablet by mouth three times a day as needed (muscle spasms). 30 tablet 1 metoprolol tartrate, short acting, (LOPRESSOR) 25 mg tablet Take 12.5 mg by mouth as needed. Takes as needed for rapid HR timolol maleate (TIMOPTIC) 0.5 % ophthalmic solution Use 1 Drop in both eyes twice daily. warfarin (COUMADIN) 5 mg tablet Take 1 tablet by mouth daily except 7.5mg on ( [facility]) 30 tablet 11 Cholecalciferol, Vitamin D3, 50 mcg (2,000 unit) cap Take 2 capsules by mouth once daily. 60 capsule 11 COQ10, UBIQUINOL, ORAL Take 30 mg by mouth. latanoprost (XALATAN) 0.005 % ophthalmic solution Use 1 Drop in both eyes daily at bedtime. furosemide (LASIX) 20 mg tablet Take 20 mg by mouth once daily. (Patient not taking: Reported on 04/17/2025) No current facility-administered medications for this visit. Family History Problem Relation Age of Onset Heart Father Allergies Sister Breast Cancer Sister age of 50's with diagnosis Prostate Cancer Brother Objective There were no vitals taken for this visit. - Cardiovascular: Dorsalis pedis and posterior tibial pulses faintly palpable on the left foot. Capillary refill time immediate in the left great toe. Skin temperature warm from proximal to distal. Hair growth diminished on the left foot. Multiple varicose veins noted on the left foot. - Skin: Left great toenail thickened with ingrowing tendency along medial and lateral borders; no signs of infection. Left second, third, and fourth nails removed. right great toenail is thick and discolored and incurvated with pain. - Musculoskeletal: Diminished ROM in left ankle joint; no pain with dorsiflexion. Diminished ROM in left subtalar joint; no pain with inversion/eversion. Labs: (no date) INR: 2.4 (elevated) Tests: (February 2025) Noninvasive vascular study: - Left ankle brachial index (dorsalis pedis): 1.14 - Left ankle brachial index (posterior tibial): 1.0 - Toe brachial index: 0.98 - Findings: Normal blood flow to the left lower extremity and similar findings for the right lower extremity Assessment AND Plan 1. Ingrowing toenail of right foot (L60.0) Chronic ingrown left great toenail with recurrent pain and difficulty with trimming; no signs of infection on exam. Patient is on Coumadin for atrial fibrillation, with most recent INR 2.4. Vascular studies from February 2025 show normal perfusion to both lower extremities. - Discussed management options: conservative nail trimming, partial nail avulsion with chemical matrixectomy, or total nail avulsion with chemical matrixectomy. - Reviewed risks and benefits of performing procedure while on Coumadin (increased bleeding risk, potential dilution of chemical matrixectomy agent, bu (more content not included)...[facility]08-25-[facility] History of Present illness Narrative* Daquan Buchanan - 04/17/2025 11:39 AM EDT Subjective Cady Bermuen is a 79-year-old female with a history of atrial fibrillation, presenting for evaluation of a painful left great toenail with ingrowing tendencies. Cady reports recurrent pain in the left great toenail, particularly when the nail grows inward on the medial side. She has previously undergone removal of the second, third, and fourth toenails onthe left foot, as well as two toenails on the right foot, and is considering removal of the left great toenail due to persistent discomfort. She is currently on Coumadin for atrial fibrillation and inquires about the implications of toenail removal while on anticoagulation therapy. She recalls a recent INR of 2.4, checked at the beginning of the month. Cady also notes thin skin around the affected area, causing pain during flexion and bending. Shehas been applying oil to the area in an attempt to alleviate discomfort. She denies current pain with ankle joint dorsiflexion or with movement of the foot in and out. She also denies any signs of infection at this time. Skin: (+) left great toenail pain, (+) thin skin of left great toe, (+) bleeding of left great toenail when trimming Musculoskeletal: (-) foot pain with movement PAST MEDICAL HISTORY Diagnosis Date A-fib (HCC) [...] deficiency 09/20/2013 Current Outpatient Medications Medication Sig Dispense Refill escitalopram oxalate (LEXAPRO) 5 mg tablet Take 1 tablet by mouth once daily. (Patient taking differently: Take 5 mg by mouth once daily. On hold) 30 tablet 2 baclofen 10 mg tablet Take 1 tablet by mouth three times a day as needed (muscle spasms). 30 tablet1 metoprolol tartrate, short acting, (LOPRESSOR) 25 mg tablet Take 12.5 mg by mouth as needed. Takes as needed for rapid HR timolol maleate (TIMOPTIC) 0.5 % ophthalmic solution Use 1 Drop in both eyes twice daily. warfarin (COUMADIN) 5 mg tablet Take 1 tablet by mouth daily except [facility] ( [facility] 30 tablet 11 Cholecalciferol, Vitamin D3, 50 mcg (2,000 unit) cap Take 2 capsules by mouth once daily. 60 capsule 11 COQ10, UBIQUINOL, ORAL Take 30 mg by mouth. latanoprost (XALATAN) 0.005 % ophthalmic solution Use 1 Drop in both eyes daily at bedtime. furosemide (LASIX) 20 mg tablet Take 20 mg by mouth once daily. (Patient not taking: Reported on 04/17/2025) No current facility-administered medications for this visit. Family History Problem Relation Age of Onset Heart Father Allergies Sister Breast Cancer Sister age of 50's with diagnosis Prostate Cancer Brother Objective There were no vitals taken for this visit. - Cardiovascular: Dorsalis pedis and posterior tibial pulses faintly palpable on the left foot. Capillary refill time immediate in the left great toe. Skin temperature warm from proximal to distal. Hair growth diminished on the left foot. Multiple varicose veins noted on the left foot. - Skin: Left great toenail thickened with ingrowing tendency along medial and lateral borders; no signs of infection. Left second, third, and fourth nails removed. right great toenail is thick and discolored and incurvated with pain. - Musculoskeletal: Diminished ROM in left ankle joint; no pain with dorsiflexion. Diminished ROM inleft subtalar joint; no pain with inversion/eversion. Labs: (no date) INR: 2.4 (elevated) Tests: (February 2025) Noninvasive vascular study: - Left ankle brachial index (dorsalis pedis): 1.14 - Left ankle brachial index (posterior tibial): 1.0 - Toe brachial index: 0.98 - Findings: Normal blood flow to the left lower extremity and similar findings for the right lower extremity Assessment & Plan 1. Ingrowing toenail of right foot (L60.0) Chronic ingrown left great toenail with recurrent pain and difficulty with trimming; no signs of infection on exam. Patient is on Coumadin for atrial fibrillation, with most recent INR 2.4. Vascular studies from February 2025 show normal perfusion to both lower extremities. - Discussed management options: conservative nail trimming, partial nail avulsion with chemical matrixectomy, or total nail avulsion with chemical matrixectomy. - Reviewed risks and benefits of performing procedure while on Coumadin (increased bleeding risk, potential dilution of chemical matrixectomy agent, but lower thromboembolic risk) versus holding Coumadin for 2-3 days prior to procedure (reduced bleeding risk, but increased thromboembolic risk). - Patient prefers to hold Coumadin for 2-3 days prior to procedure; instructed to check INR at [facility] today. _ I personally discussed with nursing at [facility]. will check inr today and will likely stop the coumadin thursday, thursday and and plan for procedure on thursday. Can resume coumdain on thursday. - Procedure tentatively scheduled for Thursday at 8:00 AM, pending INR results and coordination with cardiac team. - Educated patient on post-procedure care: daily soaking in soap and water, application of Neosporin and Band-Aid. - Advised patient to apply lotion to delicate skin on feet. - right great toenail debrided as courtesy. Recording using [employer] software for draft documentation of the visit was discussed with the patient/authorized care support representative; all questions welcomed and answered. Patient/authorized care support representative agreed to proceed Daquan Buchanan DPM * Megan Skelton RN - 04/17/2025 10:57 AM EDT Patient presents with: Left Great Toe - Ingrown Nail, Established Patient, Follow Up, Procedure Patient presents for matrixectomy of left hallux due to dystrophic nail. PVR was done 03/02/25 and showed normal circulation. Is on 5 mg of Coumadin for A-fib, last took it last night. [facility] 07/28/2024 documented in this encounterMary [facility]-25-[facility]25 Instructions* Patient Instructions* Daquan Buchanan - 04/17/2025 11:35 AM EDT Go to [facility] to check your INR. Will have you stop the coumadin on Thursday, Thursday and Will proceed with nail procedure on Thursday. Can resume coumadin Thursday evening Plan is subject to change pending results of INR Daquan Buchanan DPM documented in this encounterMary Rutan Hospital08-25-2025 NoteHNO ID: [id number] Author: MEGAN SKELTON RN Service: ? Author Type: Registered Nurse Type: Progress Notes Filed: 04/17/2025 11:40 Note Text: Patient presents with: Left Great Toe - Ingrown Nail, Established Patient, Follow Up, Procedure Patient presents for matrixectomy of left hallux due to dystrophic nail. PVR was done 03/02/25 and showed normal circulation. Is on 5 mg of Coumadin for A-fib, last took it last night. [facility] 07/28/2024[facility]08-19-2025 Instructions* Patient Instructions* Moon Teixeira MD - 04/11/2025 11:29 AM EDT We discussed your atrial fibrillation (AFib): - You are scheduled for an ablation procedure on August 11. This is expected to be a 4-6 hour procedure. After the procedure, you will need to take it easy during the recovery period. - You are currently in AFib 38% of the time, as determined by your Holter monitor results. This qualifies you for the ablation. - Continue taking Metoprolol as prescribed to manage your heart rate. Use it as needed if your heart rate becomes elevated, such as during episodes of AFib. - Stress may be contributing to your AFib episodes. Please try to minimize stress when possible. We discussed your anxiety and emotional health: - I am prescribing Lexapro (antidepressant) to help manage your anxiety. This has been sent to [facility]. Please take it as directed. - Consider incorporating stress management techniques, such as prayer or relaxation exercises, to help cope with the challenges you are facing. We discussed your recent fall and balance concerns: - You mentioned feeling unsteady and that your gait has been affected. You also described a sensation of walking on trudy. - You are planning to attend a balance class through the health department. This is a good step to help improve your stability and reduce the risk of future falls. We discussed your weight gain: - You have gained approximately 20 pounds, which you attribute to stress eating and changes in yourroutine. - You are trying to walk about a mile in the morning and evening when the weather is cool. Please continue this as tolerated, but avoid walking in the heat, as it exacerbates your shortness of breathand AFib symptoms. Follow-Up: - I would like to see you back in 3 months, which will be before your ablation procedure. This willallow us to check on your progress and address any concerns before the procedure. Please call the office to schedule this appointment. documented in this encounterMary Rutan Hospital08-19-2025 NoteHNO ID: [id number] Author: MOON TEIXEIRA MD Service: ? Author Type: Physician Type: Progress Notes Filed: 04/11/2025 12:02 Note Text: Reason for Visit Follow up HPI Cady Berumen is a 79-year-old female with a history of atrial fibrillation, presenting for follow-up. Cady reports a recent fall while attempting to dig out a stump, resulting in facial trauma including two black eyes and bruising around the nose. She initially suspected a nasal fracture but later confirmed it was not fractured. The fall occurred on soft ground, which she notes was less painful than a previous fall on cement. She did not seek emergency care for the fall. She has been experiencing episodes of dyspnea and fatigue, which she attributes to her atrial fibrillation. She was evaluated in the emergency department on 03/15 for these symptoms. She is scheduled for an ablation procedure on 08/11, which she hopes will alleviate her symptoms. She reports that her Holter monitor showed she is in atrial fibrillation 38% of the time. She notes that stress exacerbates her atrial fibrillation episodes, with her heart rate reaching up to 130 bpm during a recent episode. She takes metoprolol to manage her heart rate. Cady also reports a sensation of walking on trudy and an abnormal gait, which was noticed by a friend. She has gained approximately 20 pounds, which she attributes to stress eating and a sedentary lifestyle. She has attempted to walk twice a day but finds it difficult in the heat due to her atrial fibrillation and dyspnea. She is experiencing significant stress related to her daughter's medical condition and financial difficulties. Her daughter has Lyme disease and is unable to work, leading Cady to christianson in her CDs to cover medical expenses. She has also paid for her own cremation to ensure her daughters receive some financial support after her . She reports high levels of anxiety and is considering resuming Lexapro, which she has taken in the past. She has three daughters, all of whom are facing challenges. One daughter in [place] is recovering from alcoholism and is trying to establish a career in art and yoga. Another daughter in [place] is completing medical equipment sales training and is seeking employment. Cady feels overwhelmed by the financial and emotional support she is providing to her daughters. SOCIAL HISTORY[1] Past medical history, appointments, medications, allergies reviewed. Pertinent Lab/Diagnostic Studies are reviewed and discussed today Current Outpatient Medications: escitalopram oxalate (LEXAPRO) 5 mg tablet baclofen 10 mg tablet furosemide (LASIX) 20 mg tablet metoprolol tartrate, short acting, (LOPRESSOR) 25 mg tablet timolol maleate (TIMOPTIC) 0.5 % ophthalmic solution warfarin (COUMADIN) 5 mg tablet Cholecalciferol, Vitamin D3, 50 mcg (2,000 unit) cap COQ10, UBIQUINOL, ORAL latanoprost (XALATAN) 0.005 % ophthalmic solution Health Maintenance Anxiety Screening DTaP,Tdap,Td Vaccine(1 - Tdap) Medicare Annual Wellness Visit Advance Directive Discussion@ Review Of Systems Constitutional: (+) fatigue, (+) weight gain Respiratory: (+) shortness of breath Musculoskeletal: (+) abnormal gait Neurological: (+) paresthesia of feet Psychiatric: (+) anxiety Physical Exam There were no vitals taken for this visit. GENERAL: NAD, alert and oriented SKIN: unremarkable, no rash or skin lesions. HEAD: normocephalic EYES: PERRLA, EOMI, conjunctiva clear EARS: external ears normal, canals clear, TM's normal. LUNGS: Clear to auscultation bilaterally, no wheezes/rhonchi/rales. HEART: Regular rate and rhythm, no murmurs. No ectopy. EXTREMITIES: Normal, No deformities, No skin discoloration, No edema. NEURO: Awake, alert and oriented x3, cranial nerves II-XII grossly intact, normal gait, no involuntary motions Tests - Holter monitor: Atrial fibrillation 38% of the time Imaging - Echocardiogram: No findings stated Assessment and Plan 1. Paroxysmal atrial tachycardia (HCC) (I47.19) Paroxysmal atrial fibrillation with associated fatigue and dyspnea; Holter monitor demonstrated AFib 38% of the time. - Ablation scheduled for August 11. 2. Anxiety (F41.9) 3. Encounter for screening examination for other mental health and behavioral disorders (Z13.39) Significant anxiety related to family and financial stressors; previously treated with Lexapro. - Start Lexapro at low dose. - Follow-up in 3 months. 4. Essential hypertension (I10) Blood pressure variability likely stress-related. - Continue current management. 5. History of falling (Z91.81) Recent mechanical fall while digging out a stump; no serious injury reported. - Patient contacted health department regarding a balance class. Voice recognition software was used to compose this office note. Please excuse any unintended typographical errors. Recording using ambient A (more content not included)...[facility]08-19-2025 History of Present illness Narrative* Moon Teixeira MD - 04/11/2025 11:11 AM EDT Reason for Visit Follow up HPI Cady Berumen is a 79-year-old female with a history of atrial fibrillation, presenting for follow-up. Cady reports a recent fall while attempting to dig out a stump, resulting in facial trauma including two black eyes and bruising around the nose. She initially suspected a nasal fracture but laterconfirmed it was not fractured. The fall occurred on soft ground, which she notes was less painful than a previous fall on cement. She did not seek emergency care for the fall. She has been experiencing episodes of dyspnea and fatigue, which she attributes to her atrial fibrillation. She was evaluated in the emergency department on 03/15 for these symptoms. She is scheduled for an ablation procedure on 08/11, which she hopes will alleviate her symptoms. She reports that her Holter monitor showed she is in atrial fibrillation 38% of the time. She notes that stress exacerbates her atrial fibrillation episodes, with her heart rate reaching up to 130 bpm during a recent episode. She takes metoprolol to manage her heart rate. Cady also reports a sensation of walking on trudy and an abnormal gait, which was noticed by afriend. She has gained approximately 20 pounds, which she attributes to stress eating and a sedentary lifestyle. She has attempted to walk twice a day but finds it difficult in the heat due to her atrial fibrillation and dyspnea. She is experiencing significant stress related to her daughter's medical condition and financial difficulties. Her daughter has Lyme disease and is unable to work, leading Cady to christianson in her CDs to cover medical expenses. She has also paid for her own cremation to ensure her daughters receive some financial support after her . She reports high levels of anxiety and is considering resuming Lexapro, which she has taken in the past. She has three daughters, all of whom are facing challenges. One daughter in [place] is recovering from alcoholism and is trying to establish a career in art and yoga. Another daughter in [place] is completing medical equipment sales training and is seeking employment. Cady feels overwhelmed by the financial and emotional support she is providing to her daughters. SOCIAL HISTORY[1] Past medical history, appointments, medications, allergies reviewed. Pertinent Lab/Diagnostic Studies are reviewed and discussed today Current Outpatient Medications: escitalopram oxalate (LEXAPRO) 5 mg tablet baclofen 10 mg tablet furosemide (LASIX) 20 mg tablet metoprolol tartrate, short acting, (LOPRESSOR) 25 mg tablet timolol maleate (TIMOPTIC) 0.5 % ophthalmic solution warfarin (COUMADIN) 5 mg tablet Cholecalciferol, Vitamin D3, 50 mcg (2,000 unit) cap COQ10, UBIQUINOL, ORAL latanoprost (XALATAN) 0.005 % ophthalmic solution Health Maintenance Anxiety Screening DTaP,Tdap,Td Vaccine(1 - Tdap) Medicare Annual Wellness Visit Advance Directive Discussion@ Review Of Systems Constitutional: (+) fatigue, (+) weight gain Respiratory: (+) shortness of breath Musculoskeletal: (+) abnormal gait Neurological: (+) paresthesia of feet Psychiatric: (+) anxiety Physical Exam There were no vitals taken for this visit. GENERAL: NAD, alert and oriented SKIN: unremarkable, no rash or skin lesions. HEAD: normocephalic EYES: PERRLA, EOMI, conjunctiva clear EARS: external ears normal, canals clear, TM's normal. LUNGS: Clear to auscultation bilaterally, no wheezes/rhonchi/rales. HEART: Regular rate and rhythm, no murmurs. No ectopy. EXTREMITIES: Normal, No deformities, No skin discoloration, No edema. NEURO: Awake, alert and oriented x3, cranial nerves II-XII grossly intact, normal gait, no involuntary motions Tests - Holter monitor: Atrial fibrillation 38% of the time Imaging - Echocardiogram: No findings stated Assessment and Plan 1. Paroxysmal atrial tachycardia (HCC) (I47.19) Paroxysmal atrial fibrillation with associated fatigue and dyspnea; Holter monitor demonstrated AFib 38% of the time. - Ablation scheduled for August 11. 2. Anxiety (F41.9) 3. Encounter for screening examination for other mental health and behavioral disorders (Z13.39) Significant anxiety related to family and financial stressors; previously treated with Lexapro. - Start Lexapro at low dose. - Follow-up in 3 months. 4. Essential hypertension (I10) Blood pressure variability likely stress-related. - Continue current management. 5. History of falling (Z91.81) Recent mechanical fall while digging out a stump; no serious injury reported. - Patient contacted health department regarding a balance class. Voice recognition software was used to compose this office note. Please excuse any unintended typographical errors. Recording using [employer] software for draft documentation of the visit was discussed with the patient/authorized care support representative; all questions welcomed and answered. Patient/authorized care support representative agreed to proceed Moon Teixeira MD. [1] Social History Tobacco Use Smoking status: Never Smokeless tobacco: Never Vaping Use Vaping status: Never Used Substance Use Topics Alcohol use: Not Currently Drug use: No documented in this encounterMary [facility]an Hospital08-07-2025 NoteHNO ID: [id number] Author: EDGAR DAVE PT Service: ? Author Type: Physical Therapist Type: Progress Notes Filed: 03/30/2025 15:33 Note Text: 03/30/2025 [facility] PHYSICAL THERAPY DISCONTINUANCE OF CARE Plan of Care Period: Start of Care Date: 02/08/25 Last Visit Date: 02/08/2025 Therapy Program: Patient did not return for follow up care as planned. Please refer to last visit note for interventions provided for this episode of care. Assessment: Unable to formally assess goal achievement. Reason for Discontinuation of Care: Patient has not returned to therapy or scheduled additional follow-up appointments. Edgar Dave, [facility]08-05-2025 Evaluation note* Diagnosis Onset Date Resolution Status Admit Date intermediate (current) use of 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 acute March 28, 2025 11:04am Paroxysmal atrial fibrillation acute March 28, 2025 11:04am Essential (primary) hypertension chr onic March 28, 2025 11:04am [facility] Work Phone: 1(485) 284-280307-29-2025 Telephone encounter Note* Telephone Encounter - Poppy Mueller RN - 03/21/2025 9:01 AM EDT The date of 08/11/25 with offered & accepted by patient. OPD with Dr. Shirley, Device Clinic and ECG are scheduled on 08/08/25. Needs Labs (CBC CMP,INR,30 day T&S) on 08/08/25 prior to procedure date. Medication instructions given, as indicated below. Stated understanding. Letter with instructions and INR record for Coumadin mailed to the patient. [facility]07-29-[facility] Telephone encounter Note* Telephone Encounter - Poppy Mueller RN - 03/21/2025 9:01 AM EDT ----- Message from Mynor Shirley MD sent at 01/04/2025 11:34 AM EDT ----- Regarding: schedule PVI Patient: Cady Berumen EP Lab Procedure requested: Ablations PVI ablation CPT 52603 Anticoagulation Status: INR in EPIC Requesting Physician: Mynor Shirley MD Procedural Physician: Mynor Shirley MD Date of last H&P or Date of upcoming H&P: 01/04/25 Indications for procedure: Atrial Fibrillation Procedure time frame: Patient convenience Current Meds: Current Outpatient Medications: baclofen 10 mg tablet furosemide (LASIX) 20 mg tabletmetoprolol tartrate, short acting, (LOPRESSOR) 25 mg tablet timolol maleate (TIMOPTIC) 0.5 % ophthalmic solution warfarin (COUMADIN) 5 mg tablet Cholecalciferol, Vitamin D3, 50 mcg (2,000 unit) cap COQ10, UBIQUINOL, ORAL latanoprost (XALATAN) 0.005 % ophthalmic solution input Section Potential Research Patient: No General anesthesia or Managed Anesthesia Care (MAC) needed: Yes Conscious Sedation: No Mapping Ablation: Rhythmia CT Scan needed pre-procedure: No ECHO needed pre-procedure: No Anticoagulation: Continue anticoagulation. Do not interrupt. Stop Antiarrhythmic: No Stop Beta Yvonne/ Calcium Channel Yvonne: No ASA: N/A Plavix: Continue, do not hold Additional instructions:None Is the patient a candidate for same day d/c: Yes Mynor Shirley MD January 04, 2025 11:34 AM [facility]07-29-[facility] Miscellaneous Notes* Telephone Encounter - Poppy Mueller RN - 03/21/2025 9:01 AM EDT The date of 08/11/25 with offered & accepted by patient. OPD with Dr. Shirley, Device Clinic and ECG are scheduled on 08/08/25. Needs Labs (CBC CMP,INR,30 day T&S) on 08/08/25 prior to procedure date. Medication instructions given, as indicated below. Stated understanding. Letter with instructions and INR record for Coumadin mailed to the patient. * Telephone Encounter - Poppy Mueller RN - 03/21/2025 9:01 AM EDT ----- Message from Mynor Shirley MD sent at 01/04/2025 11:34 AM EDT ----- Regarding: schedule PVI Patient: Cady Berumen EP Lab Procedure requested: Ablations PVI ablation CPT 84456 Anticoagulation Status: INR in EPIC Requesting Physician: Mynor Shirley MD Procedural Physician: Mynor Shirley MD Date of last H&P or Date of upcoming H&P: 01/04/25 Indications for procedure: Atrial Fibrillation Procedure time frame: Patient convenience Current Meds: Current Outpatient Medications: baclofen 10 mg tablet furosemide (LASIX) 20 mg tabletmetoprolol tartrate, short acting, (LOPRESSOR) 25 mg tablet timolol maleate (TIMOPTIC) 0.5 % ophthalmic solution warfarin (COUMADIN) 5 mg tablet Cholecalciferol, Vitamin D3, 50 mcg (2,000 unit) cap COQ10, UBIQUINOL, ORAL latanoprost (XALATAN) 0.005 % ophthalmic solution input Section Potential Research Patient: No General anesthesia or Managed Anesthesia Care (MAC) needed: Yes Conscious Sedation: No Mapping Ablation: Rhythmia CT Scan needed pre-procedure: No ECHO needed pre-procedure: No Anticoagulation: Continue anticoagulation. Do not interrupt. Stop Antiarrhythmic: No Stop Beta Yvonne/ Calcium Channel Yvonne: No ASA: N/A Plavix: Continue, do not hold Additional instructions:None Is the patient a candidate for same day d/c: Yes Mynor Shirley MD January 04, 2025 11:34 AM documented in this encounterCleveland [id number] Telephone encounter Note * Telephone Encounter - Merly Pagan RN - 03/20/2025 4:07 PM EDT Returned call, no answer, left message. Merly Pagan RN [facility]07-28-2025 Miscellaneous Notes* Telephone Encounter - Merly Pagan RN - 03/20/2025 4:07 PM EDT Returned call, no answer, left message. Merly Pagan RN * Telephone Encounter - Ramya Hopson - 03/17/2025 11:25 AM EDT March 17, 2025 Patient Contact Number: [phone] (home) [phone] (cell) Patient last seen within the last year: Yes , Date last seen on: 12/30/24 Reason For Call: Follow-up Questions: Patient had a recent ER visit and her blood pressure dropped.Patient states, I was feeling really crummy... I get weak as a kitten... Physician:Mynor Shirley MD Patient was informed that non-urgent calls may be returned within the next three business days. Yes Please advise. Ramya White IC 955 documented in this encounterMary Rutan Hospital07-25-2025 Telephone encounter Note * Telephone Encounter - Ramya Hopson - 03/17/2025 11:25 AM EDT March 17, 2025 Patient Contact Number: [phone] (home) [phone] (cell) Patient last seen within the last year: Yes , Date last seen on: 12/30/24 Reason For Call: Follow-up Questions: Patient had a recent ER visit and her blood pressure dropped.Patient states, I was feeling really crummy... I get weak as a kitten... Physician:Mynor Shirley MD Patient was informed that non-urgent calls may be returned within the next three business days. Yes Please advise. Ramya White IC 955 [facility]07-24-[facility] Telephone encounter Note* Telephone Encounter - Megan Rodriguez RN - 03/16/2025 11:33 AM EDT Pt called and is notified of providers message and instructions. Pt voices understanding. She states she must have told her the wrong date, but she sees Dr Lovelace on 03/28/25. I scheduled Pt with Dr Teixeira on 04/11/25. I figured then she would have seen the [employer]ing Filtering Supervisor. I gave the provider 40 min, because I was not sure how much time she would need. Office can shorten to 20 min if 40 is not needed. Megan Rodriguez RN [facility]07-24-2025 Miscellaneous Notes* Telephone Encounter - Megan Rodriguez RN - 03/16/2025 11:33 AM EDT Pt called and is notified of providers message and instructions. Pt voices understanding. She states she must have told her the wrong date, but she sees Dr Lovelace on 03/28/25. I scheduled Pt with Dr Teixeira on 04/11/25. I figured then she would have seen the Dewatering Filtering Supervisor. I gave the provider 40 min, because I was not sure how much time she would need. Office can shorten to 20 min if 40 is not needed. Megan Rodriguez RN * Telephone Encounter - Moon Teixeira MD - 03/16/2025 8:58 AM EDT Noted. November 29 is a little too far. I hope she can call and get in sooner Yes I would like to see her sooner Regards, Moon Teixeira MD * Telephone Encounter - Adelina Carver RN - 03/16/2025 8:32 AM EDT Patient returns call and provider message below reviewed. Patient went to ER and got evaluated. No significant findings. Blood work all good. Patient has the cardiac loop recorder in place for past couple of years and it is always monitoring. 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 Heart doctor has instructed her any time she has blood pressure reading that drop 20-30 she is to go to the ER just to ensure nothing is wrong. Offered ER follow up. Patient doesn't feel it is necessary she is scheduled with Dr. Lovelace (cardiology) November 29 and will call back if anything changes and she would like an appointment but at this time she feels everything is related to her A-fib as per the recordings she is in A-fib 38% of thetime. Adelina Carver RN * Telephone Encounter - Megan Rodriguez RN - 03/16/2025 8:10 AM EDT Called Pt and no answer. Pts voicemail did not apple picker. Will need to call back. Megan Rodriguez RN * Telephone Encounter - Megan Rodriguez RN - 03/15/2025 4:29 PM EDT Called and left a detailed voicemail notifying patient of providers message and she has in her comments that we can leave a message on her home machine. Clinic phone number was left for the patient to call and answer the providers questions. This is providers message I left for Pt, This could haveto do with her heart rate, she was supposed to have a loop recorder , there is an order for it? Is she getting ready to do it? Would like an update, no need for er unless she has more symptoms Regards, Moon Rodriguez RN * Telephone Encounter - Megan Rodriguez RN - 03/15/2025 12:03 PM EDT Pt reports she doesn't take them often and it has been a few weeks since she has taken one. Megan Rodriguez RN * Telephone Encounter - Moon Teixeira MD - 03/15/2025 11:42 AM EDT When was the last time she took the metoprolol? Maybe that is causing it to go so low? RegardsMoon MD * Telephone Encounter - Megan Rodriguez RN - 03/15/2025 11:23 AM EDT Protocol recommends go to ER. Pt reports her BP is back up and she is no longer symptomatic. Pt would like to come in and see provider. Please call and advise. Care plan reviewed with patient. Patient voices understanding. Advised patient that if symptoms get worse to be evaluated in ER. Reason for Disposition [1] Fall in systolic BP > 20 mm Hg from normal AND [2] feeling weak or lightheaded Answer Assessment - Initial Assessment Questions 1. BLOOD PRESSURE: 103/70 HR 60, 83/60, 87/65 HR 57. Now it's 132/78 HR 61 2. ONSET: Low Bps were taken this morning at 900 am, 1100 am. 3. HOW: Pt used an automatic home BP monitor, states she brings it in every few months to be calibrated. 4. HISTORY: Pt reports a history of low blood pressure over the last few years. She states 2-3 times a week she will get low BPs and have to go lay down. 5. MEDICINES: Pt states she only takes 1/2 tablet of Metoprolol when she feels an episode of Afib coming on. States she is supposed to have an ablation. 6. PULSE RATE: HR is 69 7. OTHER SYMPTOMS: Pt denies being sick recently. Pt denies any recent injury. She states she has had some big bruises from moving stuff around nancy on Coumadin. Pt reports with this she feels weak like she is going to pass out, so she goes to lay down and falls asleep and when she gets up she typically feels better. Pt denies dizziness. She called Patricia at [facility]. She told her to go to [facility] ER, but Pt declined as her BP was back up. She told her to call PCP and see what she wanted Pt to do. 8. : Postmenopausal Protocols used: Blood Pressure - Out-ZXOSN-VL documented in [facility] Telephone encounter Note * Telephone Encounter - Moon Teixeira MD - 03/16/2025 8:58 AM EDT Noted. November 29 is a little too far. I hope she can call and get in sooner Yes I would like to see her sooner Regards, Moon Teixeira MD [facility] Work Phone: 1(974) 162-584407-24-2025 Telephone encounter Note* Telephone Encounter - Adelina Carver RN - 03/16/2025 8:32 AM EDT Patient returns call and provider message below reviewed. Patient went to ER and got evaluated. No significant findings. Blood work all good. Patient has the cardiac loop recorder in place for past couple of years and it is always monitoring. 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 Heart doctor has instructed her any time she has blood pressure reading that drop 20-30 she is to go to the ER just to ensure nothing is wrong. Offered ER follow up. Patient doesn't feel it is necessary she is scheduled with Dr. Lovelace (cardiology) November 29 and will call back if anything changes and she would like an appointment but at this time she feels everything is related to her A-fib as per the recordings she is in A-fib 38% of thetime. Adelina Carver RN [facility]07-24-2025 Telephone encounter Note* Telephone Encounter - Megan Rodriguez RN - 03/16/2025 8:10 AM EDT Called Pt and no answer. Pts voicemail did not apple picker. Will need to call back. Megan Rodriguez RN [facility]07-23-2025 Discharge summary [facility] Medical Records Department [address] [place] [id number] Emergency Department Summary 03/15/25 MR#: [id number] Acct: [id number] Name: CADY BERUMEN Rep #:[id number] : 1945 79 From: Johnie Dia PCP: Dr. 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 Notes low blood pressures athome. States she feels diffuselyweak all her blood pressure been low. The lowest pressure was 89/66per her blood pressure machine. Denies recent illness. [...] reviewed, Vital signs reviewed Constitutional: please see mdm HENT: MMM Eyes: Pupils equal round and [...] nerves II through XII intact,5/5 strength in allpresent extremities. Intact sensation to light touch in all present extremities, 2+ reflexes bilateral patella tendons. Skin: No rash or lesions noted MEDICAL DECISION MAKING: Chief Complaint: please see HPI External records reviewed: Reviewed per echocardiogram from October 2024 shows ejection fraction 70% stage I diastolic dysfunction Factors affecting care: no as per [facility] Social determinants of health: none History obtained from others: none Consults: none [facility] Narrative: Patient was initially hemodynamically stable, afebrile and nontoxic-appearing. No focal cardiopulmonary, neurologic or hematologic abnormalities noted on initial exam I considered the following differential diagnosis: Distributive shock, obstructive shock, hemorrhagic shock, neurogenic shock, cardiogenic shock IV monitor placed The patient's history and physical exam not consistent with neurogenic shock. There is no trauma ornew neck or back pain to suggest neurogenic [...] shock process. Repeat blood pressure 135/75. Patient isappropriate discharge home. The patient and/or family, caregivers [...] secondary to the patient having high probability ofclinically significant/life threatening deterioration in the patient's condition which required my urgent intervention. Impression: 1. Hypotension (resolved) 2. History of chronic anticoagulation Dispo: discharge This note was generated with [employer] dictation software. It may contain incorrectwords, spelling, [...] % (Auto) 56.5 Lymph % (Auto) 25.9 Hoke % (Auto) 13.1 H Eos % (Auto) [...] Clarity Clear Urine pH 6.0 Ur Specific Crumrod 1.010 Urine Protein Negative Urine Glucose (UA) Normal Urine Ketones Negative Urine Occult Blood 10 H Urine Nitrite Negative Urine Bilirubin Negative Urine Urobilinogen Normal Ur Leukocyte Esterase Negative Radiography Diagnostic Testing: Clinical Impression(s) from Imaging Studies Chest X-Ray 03/15/25 16:25 IMPRESSION: Cardiomegaly. No acute pulmonary disease. Reading Location: [id number] Discharge Plan Triage Chief Complaint: Hypotension ED Provider: Johnie Kelsey Dx/Rx/DC Orders Prescriptions: No Action latanoprost 1 DROP bottle 1 drp EACH EYE QHS cholecalciferol (vitamin D3) 1,000 UNIT tablet 1,000 unit PO DAILY coenzyme Q10 50 MG tablet,chewable 30 mg PO DAILY warfarin 5 mg tablet 7.5 mg PO [facility] Protocol: Dose Management Condition: Thursday Dose/Route: [...] Date: 04/08/25 Rx Instructions: 5 mg orally M/W/, 7.5 mg (1.5 tablets) S/T// or as directed Primary Care Provider: Moon Teixeira Referrals: Moon Teixeira MD [Primary Care Provider] - Print Language: Citizen Of [place] What to do if you have Problems For any increased pain, shortness of breath, bleeding, nausea or vomiting, chestpain, or any unexpected problems, contact your Primary Care Provider. Call [facility] ([phone]) or report tothe closest Emergency Room. Call 911 if necessary. 03/15/25 1828 Cosigner Signature (if applicable): CC: Dr. Moon Teixeira MD ~ Signed [facility]07-23-2025 Radiology Diagnostic study note [facility] Imaging Services [address] [place], [place] [address] Chest 1 View (Portable) MR#: [id number] Acct: [id number] Name: CADY BERUMEN Rep #: [id number] : 1945 F 79 From: Rafa Ortiz MD PCP: Dr. Moon Teixeira MD Status: REG E R Study:Chest 1 View (Portable) Date of Exam: 03/15/25 Exam# [id number] Ordering Dr: Rad Kelsey DO PROCEDURE: CHEST [...] Cardiomegaly. No acute pulmonary disease. Reading Location: [facility] CC: Dr. Moon Teixeira MD; Dr. Johnie Kelsey DO ~ A And P Technician: Signed [facility]07-23-2025 Telephone encounter Note* Telephone Encounter - Megan Rodriguez RN - 03/15/2025 4:29 PM EDT Called and left a detailed voicemail notifying patient of providers message and she has in her comments that we can leave a message on her home machine. Clinic phone number was left for the patient to call and answer the providers questions. This is providers message I left for Pt, This could haveto do with her heart rate, she was supposed to have a loop recorder , there is an order for it? Is she getting ready to do it? Would like an update, no need for er unless she has more symptoms Regards, Moon Rodriguez RN [facility]07-23-[facility]25 Discharge summary Author Johnie Kelsey [facility] Note Date/Time March 15, 2025 6:28 pm [facility] Medical Records Department [address] [place] [address] Emergency Department Summary 03/15/25 MR#: [id number] Acct: [id number] Name: CADY BERUMEN Rep #:[id number] : 1945 79 From: Johnie Dia PCP: Dr. 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 Paroxysmal atrial fibrillation [...] 14:41 Family History Father Myocardial infarction from [place] age 61 Heart disease Diabetes Sister Breast cancer Other intermediate (current) use of 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 Surgical History history [...] reviewed, Vital signs reviewed Constitutional: please see [facility] HENT: MMM Eyes: Pupils equal round [...] MEDICAL DECISION MAKING: Chief Complaint: please see [facility] External records reviewed: Reviewed per echocardiogram from October 2024 shows ejection fraction 70% stage I diastolic dysfunction Factors affecting care: no as per [facility] Social determinants of health: none History obtained from others: none Consults: none [facility] Narrative: Patient was initially hemodynamically stable, afebrile [...] Dispo: discharge This note was generated with [employer] dictation software. It may contain incorrectwords, spelling, [...] % (Auto) 56.5 Lymph % (Auto) 25.9 Hoke % (Auto) 13.1 H Eos % (Auto) [...] Clarity Clear Urine pH 6.0 Ur Specific Crumrod 1.010 Urine Protein Negative Urine Glucose (UA) Normal Urine Ketones Negative Urine Occult Blood 10 H Urine Nitrite Negative Urine Bilirubin Negative Urine Urobilinogen Normal Ur Leukocyte Esterase Negative Radiography Diagnostic Testing: Clinical Impression(s) from Imaging Studies Chest X-Ray 03/15/25 16:25 IMPRESSION: Cardiomegaly. No acute pulmonary disease. Reading Location: [id number] Discharge Plan Triage Chief Complaint: Hypotension ED Provider: Johnie Kelsey Dx/Rx/DC Orders Prescriptions: No Action latanoprost 1 DROP bottle 1 drp EACH EYE QHS cholecalciferol (vitamin D3) 1,000 UNIT tablet 1,000 unit PO DAILY coenzyme Q10 50 MG tablet,chewable 30 mg PO DAILY warfarin 5 mg tablet 7.5 mg PO [facility] Protocol: Dose Management Condition: Thursday Dose/Route: [...] Date: 04/08/25 Rx Instructions: 5 mg orally M//, 7.5 mg (1.5 tablets) S/T// or as directed Primary Care Provider: Moon Teixeira Referrals: Moon Teixeira MD [Primary Care Provider] - Print Language: Citizen [place] What to do if you have Problems For any increased pain, shortness of breath, bleeding, nausea or vomiting, chestpain, or any unexpected problems, contact your Primary Care Provider. Call [facility] ([phone]) or report to the closest Emergency Room. Call 911 if necessary. 03/15/251827 <Electronically signed by Johnie Kelsey DO> Cosigner Signature (if applicable): CC: Dr. Moon Teixeira MD ~ Signed [facility] Work Phone: 1(476) 621-633207-23-2025 Telephone encounter Note* Telephone Encounter - Megan Rodriguez RN - 03/15/2025 12:03 PM EDT Pt reports she doesn't take them often and it has been a few weeks since she has taken one. Megan Rodriguez RN [facility]07-23-2025 Telephone encounter Note* Telephone Encounter - Moon Teixeira MD - 03/15/2025 11:42 AM EDT When was the last time she took the metoprolol? Maybe that is causing it to go so low? Regards, Moon Teixeira MD [facility]07-23-2025 Telephone encounter Note* Telephone Encounter - Megan Rodriguez RN - 03/15/2025 11:23 AM EDT Protocol recommends go to ER. Pt reports her BP is back up and she is no longer symptomatic. Pt would like to come in and see provider. Please call and advise. Care plan reviewed with patient. Patient voices understanding. Advised patient that if symptoms get worse to be evaluated in ER. Reason for Disposition [1] Fall in systolic BP > 20 mm Hg from normal AND [2] feeling weak or lightheaded Answer Assessment - Initial Assessment Questions 1. BLOOD PRESSURE: 103/70 HR 60, 83/60, 87/65 HR 57. Now it's 132/78 HR 61 2. ONSET: Low Bps were taken this morning at 900 am, 1100 am. 3. HOW: Pt used an automatic home BP monitor, states she brings it in every few months to be calibrated. 4. HISTORY: Pt reports a history of low blood pressure over the last few years. She states 2-3 times a week she will get low BPs and have to go lay down. 5. MEDICINES: Pt states she only takes 1/2 tablet of Metoprolol when she feels an episode of Afib coming on. States she is supposed to have an ablation. 6. PULSE RATE: HR is 69 7. OTHER SYMPTOMS: Pt denies being sick recently. Pt denies any recent injury. She states she has had some big bruises from moving stuff around nancy on Coumadin. Pt reports with this she feels weak like she is going to pass out, so she goes to lay down and falls asleep and when she gets up she typically feels better. Pt denies dizziness. She called Patricia at [facility]. She told her to go to [facility] ER, but Pt declined as her BP was back up. She told her to call PCP and see what she wanted Pt to do. 8. : Postmenopausal Protocols used: Blood Pressure - Fgj-ORMPS-EO [facility]07-22-2025 Telephone encounter Note* Telephone Encounter - Zohra Bolton LPN - 03/14/2025 1:46 PM EDT Patient scheduled on 04/17/2025 at 11. Zohra Bolton LPN [facility] Work Phone: 1(398) 379-485107-22-2025 Miscellaneous Notes* Telephone Encounter - Zohra Bolton LPN - 03/14/2025 1:46 PM EDT Patient scheduled on 04/17/2025 at 11. Zohra Bolton LPN * Telephone Encounter - Alec Collins LPN - 03/10/2025 2:18 PM EDT Patient notified of result. She would like to schedule her permanent avulsion. [phone] is her best contact number. Alec Collins LPN * Telephone Encounter - Zohra Bolton LPN - 03/03/2025 9:13 AM EDT Called patient to provide results below. No response. Left VM. Zohra Bolton LPN * Telephone Encounter - Zohra Bolton LPN - 03/03/2025 9:12 AM EDT Images from the original note were not included. Daquan Buchanan to [facility] Podiatry Pool 03/03/25 8:00 AM Please call patient to inform her that her circulation appears normal Daquan Buchanan DPM documented in this encounterMary [facility] Hospital07-18-2025 Telephone encounter Note * Telephone Encounter - Alec Collins LPN - 03/10/2025 2:18 PM EDT Patient notified of result. She would like to schedule her permanent avulsion. [phone] is her best contact number. Alec Collins LPN [facility]07-11-2025 Telephone encounter Note* Telephone Encounter - Zohra Bolton LPN - 03/03/2025 9:13 AM EDT Called patient to provide results below. No response. Left VM. Zohra Bolton LPN [facility]07-11-2025 Telephone encounter Note* Telephone Encounter - Zohra Bolton LPN - 03/03/2025 9:12 AM EDT Images from the original note were not included. Daquan Buchanan to [facility] Podiatry Pool 03/03/25 8:00 AM Please call patient to inform her that her circulation appears normal Daquan Buchanan DPM [facility]06-19-2025 History of Present illness Narrative* Edgar Dave, PT - 02/09/2025 8:19 AM EDT Program_ID:[id number] Access Code: [email or web address] URL: [email or web address] Date: 02-09-2025 Prepared By: Edgar Dave Program [...] therapy services to meet the goals [facility] as noted below. Goals for Episode of Care: established 02/08/25 Patient reported outcome of physical function will increase T-score by a minimum 5 points. [place] in home exercise program. Patient will decrease [...] Planned: 5 Planned Treatment Interventions: Therapeutic exercise (01705), Neuromuscular re- education (05981), Manual therapy (91360), Therapeutic activities (49891), Self- senior care management (00961), Patient/Family/Caregiver Education, Body Mechanics Training PLAN FOR NEXT VISIT: Review, correct and progress HEP (since unable to print HEP at ); manual therapy to soft tissue. Manual flexibility/passive [...] 1x10, 2-3sec hold. 5: *Gentle UT Stretch: 1x30 each. 6: *Gentle LS Stretch: 1x30 each. 7: *Seated Rhomboid Stretch: 2x30. 8: Educated in DN treatment; discussed differences [...] daughters number and called patient to come apple picker handouts. Manual Therapy: Soft Tissue Mobilization: [...] Time : 921 Session Stop Time : 999 Decreased visit time due to patient arriving late to appointment. Edgar Dave PT documented in this encounterMary [facility]an Hospital06-18-2025 NoteHNO ID: [id number] Author: EDGAR DAVE PT Service: ? Author [...] increase T-score by a minimum 5 points. [place] in home exercise program. Patient will decrease [...] Planned: 5 Planned Treatment Interventions: Therapeutic exercise (78114), Neuromuscular re-education (36482), Manual therapy (32189), Therapeutic activities (76920), Self-senior care management (97713), Patient/Family/Caregiver Education, Body Mechanics Training PLAN FOR NEXT VISIT: Review, correct and progress HEP (since unable to print HEP at ); manual therapy to soft tissue. Manual flexibility/passive [...] R Scapula is hyper irritable. Went to [facility] a couple of times (seemed to help) [...] Higher is Better Phys (more content not included)...[facility]06-13-2025 Telephone encounter Note* Telephone Encounter - José Miguel Saldaña APRN.CNP - 02/03/2025 12:58 PM EDT See results follow up. José Miguel Saldaña APRN.CNP [facility]06-13-2025 Miscellaneous Notes* Telephone Encounter - José Miguel Saldaña APRN.CNP - 02/03/2025 12:58 PM EDT See results follow up. José Miguel Saldaña APRN.CNP * Telephone Encounter - Nydia Encarnacion RN - 02/01/2025 1:41 PM EDT Patient calling and is asking about lab results. Please review and advise, Nydia Encarnacion RN Patient states that Dr. Marinelli'destin Bosch's office did not receive dermatology referral. Faxed referral, office visit notes, and face sheet to Dr. Yves Bosch's office as requested. documented in this encounterMary [facility] Hospital06-11-2025 Telephone encounter Note * Telephone Encounter - Nydia Encarnacion RN - 02/01/2025 1:41 PM EDT Patient calling and is asking about lab results. Please review and advise, Nydia Encarnacion RN Patient states that Dr. Tera Bosch's office did not receive dermatology referral. Faxed referral, office visit notes, and face sheet to Dr. Yves Bosch's office as requested. [facility]06-05-2025 NoteHNO ID: [id number] Author: JOSÉ MIGUEL SALDAÑA APRN.EARLY CHILDHOOD Service: ? Author Type: Nurse Practitioner Type: [...] FLX DX W/COLLJ SPEC WHEN [facility]FRMD [facility] NEUROPLASTY AND/TRANSPOS [...] by mouth daily except 7.5mg on ( [facility]) Cholecalciferol, Vitamin D3, 50 mcg (2,000 [...] that also appear circular and have a stuck on feel Eyes: conjunctiva pink and moist, no [...] done RSV Vaccine(1 - (more content not included)...[facility] 01-26-2025 History of Present illness Narrative* José Miguel Saldaña APRN.[facility] - 01/26/2025 11:43 AM EDT CC: Patient [...] FLX DX W/COLLJ SPEC WHEN PFRMD 08/23/2019 [facility] repeat is not recommended NEUROPLASTY &/TRANSPOS [...] by mouth daily except 7.[facility] on ( [facility] Cholecalciferol, Vitamin D3, 50 mcg (2,000 unit) [...] that also appear circular and have a stuck on feel Eyes: conjunctiva pink and moist, no [...] José Miguel Saldaña APRN.CNP documented in this encounterMary [facility]an Hospital06-05-2025 Telephone encounter Note * Telephone Encounter - Adelina Carver RN - 01/26/2025 10:30 AM EDT Patient [...] Protocols used: Skin Lesion - Moles or Mbyogso-BKZYG-NA [facility]06-05-2025 Miscellaneous Notes* Telephone Encounter - Adelina Carver RN - 01/26/2025 10:30 AM EDT Patient [...] Protocols used: Skin Lesion - Moles or Ssfqljn-YJEHM-EA documented in this encounterMary [facility]an Hospital05-27-2025 NoteHNO ID: [id number] Author: ALEC ARTHUR, DO Service: ? Author Type: Physician Type: Progress Notes Filed: 02/16/2025 16:49 Note Text: [facility] [place] DEPARTMENT OF VASCULAR SURGERY OUTPATIENT VISIT DATE [...] FLX DX W/COLLJ SPEC WHEN PFRMD 08/23/2019 [facility] repeat is not recommended NEUROPLASTY AND/TRANSPOS [...] by mouth daily except 7.5mg on ( [facility]) Cholecalciferol, Vitamin D3, 50 mcg (2,000 [...] [place] DATE: January 17, 2025 TIME: 3:06 [facility]05-27-2025 History of Present illness Narrative* Alec Arthur DO - 01/17/2025 3:06 PM EDT Images from the original note were not included. [facility] [place] DEPARTMENT OF VASCULAR SURGERY OUTPATIENT VISIT DATE [...] FLX DX W/COLLJ SPEC WHEN PFRMD 08/23/2019 [facility] repeat is not recommended NEUROPLASTY &/TRANSPOS [...] by mouth daily except 7.[facility]mg on ( [facility]) Cholecalciferol, Vitamin D3, 50 mcg (2,000 unit) [...] 2025 TIME: 3:06 PM documented in this encounterMary [facility] Hospital05-14-2025 NoteHNO ID: [id number] Author: MARIA DE JESUS DESOUZA APRN.ENOC Service: ? Author Type: Nurse Practitioner Type: Progress Notes Filed: 01/04/2025 12:31 Note Text: Called Ms. Berumen to let her know that Dr. Shirley agrees with ablation and has sent a request to schedule. She is aware it will take at least 4 weeks to receive a call to schedule, Maria De Jesus Desouza APRN.CNPRiverside Methodist Hospital05-14-2025 History of Present illness Narrative* Maria De Jesus Desouza APRN.CNP - 01/04/2025 12:29 PM EDT Called Ms. Berumen to let her know that Dr. Shirley agrees with ablation and has sent a request to schedule. She is aware it will take at least 4 weeks to receive a call to schedule, Maria De Jesus Desouza APRN.CNP documented in this encounterMary [facility]an Hospital05-13-2025 NotePatient Outreach (INTMMN) CADY BERUMEN ([id number]) 1945 F Date Time Provider Department 01/03/25 [...] 12/30/2024 Reviewed by: Maria De Jesus Desouza APRN.EARLY CHILDHOOD - Fully Assessed Visit Diagnoses:Essential hypertension [I10] Medication management [Z79.899] Order(s):BASIC METABOLIC PANEL [SQBMP] Order #: [id number] FUTURE COMPLETE BLOOD COUNT [SQCBC] Order #: [id number] FUTURE Prescriptions as of 01/06/2025 - baclofen [...] by mouth daily except 7.5mg on ( [facility]) - Cholecalciferol, Vitamin D3, 50 mcg [...] artery stenosis [I65.23] 03/21/2024 Encounter Status:Closed by [employer], PRODUSER on 01/06/25[facility] 12-30-2024 NoteHNO ID: [id number] Author: MARIA DE JESUS DESOUZA APRN.ENOC Service: ? Author Type: Nurse Practitioner Type: Progress Notes Filed: 12/30/2024 13:58 Note Text: [facility] [place] Annette Velasquez Department of Cardiovascular Medicine SECTION OF CARDIAC PACING and ELECTROPHYSIOLOGY OUTPATIENT VISIT DATE December 30, 2024 OUTPATIENT VISIT TYPE ESTABLISHED PRIMARY CARE PHYSICIAN: Moon Teixeira [address] [place] [address] CHIEF COMPLAINT: No chief complaint on file. [...] FLX DX W/COLLJ SPEC WHEN PFRMD 08/23/2019 [facility] Cebul repeat is not recommended NEUROPLASTY AND/TRANSPOS [...] HR timolol maleate ( (more content not included)...[facility] 12-30-2024 History of Present illness Narrative* Maria De Jesus Desouza APRN.EARLY CHILDHOOD - 12/30/2024 1:38 PM EDT Images from the original note were not included. [facility] [place] Annette Velasquez Department of Cardiovascular Medicine SECTION OF CARDIAC PACING and ELECTROPHYSIOLOGY OUTPATIENT VISIT DATE December 30, 2024 OUTPATIENT VISIT TYPE ESTABLISHED PRIMARY CARE PHYSICIAN: Moon Teixeira [address] [place] [address] CHIEF COMPLAINT: No chief complaint on file. [...] by mouth daily except 7.5mg on ( [facility] Cholecalciferol, Vitamin D3, 50 mcg (2,000 unit) [...] Pulse (!) 51 Ht 162.6 cm (5' 4) Wt 75.8 kg (167 lb) BMI 28.67 [...] Fibrillation with Rapid Ventricular Response * AT/AF [place]: See PDF% * Total episodes: 1 lasting 24 minutes with an average ventricular rate of 109bpm Tachycardia: AF w/RVR * Stored EGMs are consistent with or suggestive of Atrial Fibrillation with Rapid Ventricular Response * AT/AF [place]: Time in AT/AF 3.5% * Total episodes:2 [...] Fibrillation with Rapid Ventricular Response * AT/AF [place]: Time in AT/AF 10.7% * Total episodes:3 [...] Fibrillation with Rapid Ventricular Response * AT/AF [place]: 6.7% * Total episodes: 5 * Longest [...] and adjust management as needed. Recording using [employer] software for draft documentation of the visit was discussed with the patient/authorized care support representative; all questions welcomed and answered. Patient/authorized care support representative agreed to proceed CONTACT INFORMATION: Maria De Jesus Desouza APRN.EARLY CHILDHOOD Dr. Mynor Shirley's office To schedule an appointment please call -- [phone] Other questions or concerns please call his office at-- [phone] Fax#: [phone] documented in this encounterMary [facility] Discharge summary Author Ousmane Montero [facility] Note Date/Time December 28, 2024 8:[address] [place] [address] Physical Therapy [facility] [address] [place] [address] / REHABILITATION SERVICES DISCHARGE SUMMARY MR#: [id number] Acct: [id number] Name: CADY BERUMEN Rep #: [id number] : 1945 79 From: Ousmane Montero DPT, OCS, CSCS Referring Dr.: Dr. Moon Teixeira MD Status: REG [facility] Insurance: [facility] SELF PAY INSURANCE Patient Information Patient Information: [...] Dr. Moon Teixeira MD ~ EBG Signed [facility] Work Phone: 1(258) 535-507705-07-2025 Discharge summary [facility] Physical Therapy [facility] [address] [place] [address] [address] [place] [address] / REHABILITATION SERVICES DISCHARGE SUMMARY MR#: [id number] Acct: [id number] Name: CADY BERUMEN Rep #: [id number] : 1945 79 From: ROSENDA Burgos DPT, CSCS Referring Dr.: Dr. Moon Teixeira MD Status: REG R Insurance: [employer] SELF PAY INSURANCE Patient Information [...] Dr. Moon Teixeira MD ~ EBG Signed [facility]04-15-2025 Telephone encounter Note* Telephone Encounter - Lindy Acevedo RN - 12/06/2024 12:55 PM EDT Returned phone call from Cady Berumen. No answer. Left VM. Patient was last seen in February 2023. Advise follow up to review any records. Lindy Acevedo RN [facility]04-15-2025 Miscellaneous Notes* Telephone Encounter - Lindy Acevedo RN - 12/06/2024 12:55 PM EDT Returned phone call from Cady Berumen. No answer. Left VM. Patient was last seen in February 2023. Advise follow up to review any records. Lindy Acevedo RN * Telephone Encounter - Honorio Cartwright - 12/02/2024 10:50 AM EDT December 02, 2024 Patient Contact Number: [phone] Patient last seen within the last year: No 03/10/23 Reason For Call: Test Results Physician:Mynor Shirley MD Patient was informed that non-urgent calls may be returned within the next three business days. Yes The patient is asking for a return phone call to go over the Holter results that were received 11/30/24. María Chambers documented in this encounterMary Rutan Hospital04-11-2025 Telephone encounter Note * Telephone Encounter - Honorio Cartwright - 12/02/2024 10:50 AM EDT December 02, 2024 Patient Contact Number: [phone] Patient last seen within the last year: No 03/10/23 Reason For Call: Test Results Physician:Mynor Shirley MD Patient was informed that non-urgent calls may be returned within the next three business days. Yes The patient is asking for a return phone call to go over the Holter results that were received 11/30/24. Honorio Rosas, Admin [facility]04-09-2025 Telephone encounter Note* Telephone Encounter - Lindy Acevedo RN - 2024 4:22 PM EDT Awaiting results. Patient was last seen in 2022. Will need OPD visit. Lindy Acevedo, LEANDER [facility]04-09-2025 Miscellaneous Notes* Telephone Encounter - Lindy Acevedo, RN - 2024 4:22 PM EDT Awaiting results. Patient was last seen in 2022. Will need OPD visit. Lindy Acevedo, RN * Telephone Encounter - Honorio Cartwright - 2024 2:56 PM EDT 2024 Patient Contact Number: [phone] Patient last seen within the last year: [...] the local office fax the results to [phone] Honorio oRsas, Admin documented in this encounterMary Rutan Hospital04-09-2025 Telephone encounter Note * Telephone Encounter - Honorio Cartwright - 2024 3:17 PM EDT Received faxed Holter report. Scanned in the system and the shared drive Honorio C., Admin [facility]04-09-2025 Miscellaneous Notes* Telephone Encounter - Honorio Cartwright - 2024 3:17 PM EDT Received faxed Holter report. Scanned in the system and the shared drive Honorio C., Admin documented in this encounterMary [facility]an Hospital04-09-2025 Telephone encounter Note * Telephone Encounter - Honorio Cartwright - 2024 2:56 PM EDT 2024 Patient Contact Number: [phone] Patient last seen within the last year: [...] the local office fax the results to [phone] Honorio Rosas, Admin [facility]04-07-[facility] Radiology Diagnostic study note [facility] Imaging Services [address] [place], [place] [address] Chest 1 View (Portable) MR#: [id number] Acct: [id number] Name: CADY BERUMEN Rep #: [id number] : 1945 F 78 From: Maida Godoy MD PCP: Dr. Moon Teixeira MD Status: REG E R Study:Chest 1 View (Portable) Date of Exam: 11/28/24 Exam# [id number] Ordering Dr: Phil Ohara DO PROCEDURE: CHEST [...] 2. Additional description as above. Reading Location: [id number] CC: Dr. Moon Teixeira MD; Dr. Isreal Ohara DO ~ A And P Technician: Signed [facility]04-07-2025 Telephone encounter Note* Telephone Encounter - Nydia Encarnacion RN - 11/28/2024 1:29 PM EDT Patient calls and notified of provider recommendations below. Patient voices understanding. Nydia Encarnacion RN [facility]04-07-2025 Miscellaneous Notes* Telephone Encounter - Nydia Encarnacion [...] to the ER Dany, Moon Teixeira MD * Telephone Encounter - [...] pt unsure 9. OTHER SYMPTOMS: left chest soreness 10. O2 SATURATION MONITOR: Pt states her reading right now is pulse 59 and oxygen level is 98%. BP is 162/90 and pulse 59. 11. : n/a 12. TRAVEL: n/a Protocols used: Breathing Izxwofeiin-KBRYK-XS * Telephone Encounter - Karen Anderson RN [...] to NSR. Pt has not talked with [facility] about her continuing SOB.Pt states [...] an incline without panting. documented in this encounterMary Rutan Hospital04-07-2025 Telephone encounter Note * Telephone Encounter - Moon Teixeira MD - 11/28/2024 1:01 PM EDT Ideally she needs to go the ER due to worsening SOB. I am reviewed her echo, she could have diastolic heart failure and she was seen to be in Afib in the rhythm check that was done november 15 Both reasons for her to go to the ER Moon Saenz MD [facility]04-07-2025 Telephone encounter Note* Telephone Encounter - Karen [...] pt unsure 9. OTHER SYMPTOMS: left chest soreness 10. O2 SATURATION MONITOR: Pt states her reading right now is pulse 59 and oxygen level is 98%. BP is 162/90 and pulse 59. 11. : n/a 12. TRAVEL: n/a Protocols used: Breathing Uvuviukdge-VXOST-HQ [facility]04-07-2025 Telephone encounter Note* Telephone Encounter - Karen [...] to NSR. Pt has not talked with [facility] about her continuing SOB.Pt states [...] or go up an incline without panting. [facility]03-21-[facility] Telephone encounter Note* Telephone Encounter - Nydia [...] Encarnacion RN November 11, 2024 8:04 AM [facility]03-21-[facility] Miscellaneous Notes* Telephone Encounter - Nydia Encarnacion [...] 11, 2024 8:04 AM documented in this encounterMary Rutan Hospital03-21-2025 Telephone encounter Note * Telephone Encounter - Nydia Encarnacion RN - 11/11/2024 8:03 AM EDT Patient called and notified of provider response below: Please tell her to call the incinerator plant general supervisor about her Heart rate being less than 40 and her dizziness. Baclofen it fine to take Moon Saenz MD Patient voices understanding. [facility]03-21-2025 Miscellaneous Notes* Telephone Encounter - Nydia Encarnacion RN - 11/11/2024 8:03 AM EDT Patient called and notified of provider response below: Please tell her to call the incinerator plant general supervisor about her Heart rate being less than [...] for his increased dizziness? documented in this encounterMary [facility]an Hospital03-20-2025 Telephone encounter Note * Telephone Encounter - [...] is the reason for his increased dizziness? [facility]03-19-[facility] History of Present illness Narrative* Mago Santos [...] PATIENT PRESENTS WITH AN IMPLANTABLE OR ATTACHED RETIREMENT SPECIALIST: No RADIOLOGY DEPARTMENT: MR; Exam(s) Completed: Head: Routine Brain PERIPHERAL IV DATA: Not applicable SIGNED BY: RT Miryam(R) November 09, 2024 1:43 PM documented in this encounterMary Rutan Hospital03-19-2025 NoteHNO ID: [id number] Author: MAGO SANTOS RT(R) Service: ? Author Type: Technologist Type: [...] PATIENT PRESENTS WITH AN IMPLANTABLE OR ATTACHED RETIREMENT SPECIALIST: No RADIOLOGY DEPARTMENT: MR; Exam(s) Completed: Head: Routine Brain PERIPHERAL IV DATA: Not applicable SIGNED BY: RT Miryam(R) November 09, 2024 1:43 [facility]03-05-2025 Telephone encounter Note* Telephone Encounter - Mago Cerrato LPN - 10/26/2024 3:15 PM EST Faxed order, face sheet and [facility] to [facility] for patient. Mago Cerrato LPN October 26, 2024 3:15 PM [facility]03-05-[facility]25 Miscellaneous Notes* Telephone Encounter - Mago Cerrato LPN - 10/26/2024 3:15 PM EST Faxed order, face sheet and CAMRON [facility] for patient. Mago Cerrato LPN October 26, 2024 3:15 PM documented in this encounterMary Rutan Hospital03-05-2025 NoteHNO ID: [id number] Author: MOON TEIXEIRA MD Service: ? Author Type: Physician Type: Progress Notes Filed: 10/26/2024 15:09 Note Text: [facility] Initial Consult Cady Berumen [...] and call 911 Social History: Primary language: Citizen Of [place] Marital Status: Living situation: Home w/ Family Socially engaged? (participates in activities such as clubs, restoration, community center, sports, games, visiting friends/relatives, etc?): YES she is in a community that every one gets around each morning. Caregiver [place] and Stress Are your feeling overwhelmed? NO [...] I, Transportation:I, Medications: {I, Handle Finances: I. ([place] scale): PMHx: PAST MEDICAL HISTORY Diagnosis Date [...] left foot vein ablation TONSILLECTOMY PRIMARY/SECONDARY AGE 12> 1962 Home Meds: Prior to Admission medications : Medication furosemide (LASIX) 20 mg tablet, Sig Take 20 mg by mouth once daily., Start Date 10/13/24, End Date , Taking? Yes, Authorizing Provider Provider, Ccbraxton Medication mirabegron (MYRBETRIQ) 25 mg Tb24, Sig Take 1 tablet by mouth once daily. Patient not taking: Reported on 10/26/2024, Start Date 07/26/24, End Date , Taking? , Authorizing Provider Yaa Ashby PA-C Medication melatonin 1 mg subl, Sig Dissolve 1 t (more content not included)... [facility]03-05-2025 History of Present illness Narrative* Moon Teixeira MD - 10/26/2024 2:04 PM EST [facility] Initial Consult Cady Berumen [...] and call 911 Social History: Primary language: Citizen Of [place] Marital Status: Living situation: Home w/ Family Socially engaged? (participates in activities such as clubs, restoration, community center, sports, games, visiting friends/relatives, etc?): YES she is in a community that every one gets around each morning. Caregiver [place] and Stress Are your feeling overwhelmed? NO [...] FLX DX W/COLLJ SPEC WHEN PFRMD 08/23/2019 [facility] Cebul repeat is not recommended NEUROPLASTY &/TRANSPOS [...] End Date , Taking? Yes, Authorizing Provider Provider Cc Medication mirabegron (MYRBETRIQ) 25 mg Tb24, Sig [...] , Authorizing Provider ANNELIESE DALE Medication Boswellia cecile extract (BOSWELLIA CECILE XT, BULK,) 70 % powd, Sig 1 Each two times a day., Start Date , End Date , Taking? Yes, Authorizing Provider Provider, Ccf Medication prasterone, DHEA, (DHEA ORAL), Sig Take [...] by mouth daily except 7.5mg on ( [facility]), Start Date 05/21/21, End Date , [...] , Taking? Yes, Authorizing Provider Provider, Ccf Other OTC med/supplements: None Medication Review: - [...] vision impairment and wears glasses Follows with assessment nurse practitioner:YES Hearing - Hearing aid : Denies any [...] NO Shuffling: NO Tremors: NO Slowness: NO [place] Cognitive Exam (MOCA): 28/ CDR Dementia Scale 1) Subjective Memory Loss: [...] any unintended typographical errors. Moon Teixeira MD [facility] * Mago Cerrato LPN - 10/26/2024 1:33 PM EST Patient presents for geriatric consult. Rooming intake completed with patient to ensure accuracy. PHQ-9, MOCA reviewed with patient and entered into questionnaires. Living with Darlin daughter right now. Mago Cerrato LPN documented in this encounterMary Rutan Hospital03-05-2025 NoteHNO ID: [id number] Author: MAGO CERRATO LPN Service: ? Author Type: LICENSED NURSE Type: Progress Notes Filed: 10/26/2024 15:09 Note Text: Patient presents for geriatric consult. Rooming intake completed with patient to ensure accuracy. PHQ-9, MOCA reviewed with patient and entered into questionnaires. Living with Darlin daughter right now. [facility] Telephone encounter Note* Telephone Encounter - Nazanin Reyes MA - 10/24/2024 11:06 AM EST Patient notified. [facility]03-03-2025 Miscellaneous Notes* Telephone Encounter - Nazanin Reyes [...] other concern. Thank you José Miguel Saldaña APRN.EARLY CHILDHOOD documented in this encounterMary Rutan Hospital03-03-2025 Telephone encounter Note * Telephone Encounter - Nazanin Reyes MA - 10/24/2024 11:05 AM EST ----- Message from José Miguel Saldaña APRN.CNP sent at 10/24/2024 7:45 AM EST ----- Please let patient know that further evaluation of her urine was completely normal. No blood or other concern. Thank you José Miguel Saldaña APRN.EARLY CHILDHOOD [facility]02-28-2025 NoteHNO ID: [id number] Author: JOSÉ MIGUEL SALDAÑA APRN.EARLY CHILDHOOD Service: ? Author Type: Nurse Practitioner Type: Progress Notes Filed: 10/21/2024 12:36 Note Text: CC: Patient presents with: Balance: Balance concerns HPI Cady Berumen is a 78 year old female who presents today for hosptial follow-up. Facility: [facility] Date of visit: 09/26/24 Reason for visit: [...] DX W/COLLJ SPEC WHEN PFRMD 08/23/2019 [facility] Florezbul repeat is not recommended NEUROPLASTY AND/TRANSPOS [...] by mouth daily except 7.5mg on ( [facility]) (Patient taking differently: 7.5 mg daily) [...] Alcohol use: Not Currently (more content not included)...[facility]02-[facility] History of Present illness Narrative* José Miguel Saldaña APRN.ENOC - 10/21/2024 11:07 AM EST CC: Patient presents with: Balance: Balance concerns HPI Cady Berumen is a 78 year old female who presents today for hosptial follow-up. Facility: [facility] Date of visit: 09/26/24 Reason for [...] FLX DX W/COLLJ SPEC WHEN [facility]FRMD [facility] is not recommended NEUROPLASTY &/TRANSPOS [...] by mouth daily [facility] ( [facility] (Patient taking differently: 7.5 mg daily) ALPHA [...] Vaccine Discontinued DATA REVIEWED: Outside chart from [facility] reviewed. ASSESSMENT/PLAN: 1. Balance disorder - [...] agreeable to treatment plan. 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 Assisted with transfer to tax assessor to get PT appt set up. [facility]01-24-[facility] Miscellaneous Notes* Telephone Encounter - Janessa Morton LPN - 09/16/2024 9:51 AM EST Phoned patient went over notes below from José Miguel Saldaña NP with understanding. Assisted with transfer to tax assessor to get PT appt set up. * Telephone Encounter - José Miguel Saldaña APRN.CNP - 09/16/2024 9:46 AM EST Order placed please assist with scheduling. Thank you José Miguel Saldaña APRN.ENOC * Telephone Encounter - Adelina Carver RN - 09/15/2024 12:06 PM EST Patient [...] with [facility] and requests call back at [phone]. Pended order. Adelina Carver RN documented in this encounterMary Rutan Hospital01-24-2025 Telephone encounter Note * Telephone Encounter - José Miguel Saldaña APRN.CNP - 09/16/2024 9:46 AM EST Order placed please assist with scheduling. Thank you José Miguel Saldaña APRN.CNP [facility] Work Phone: [phone]) 815-977501-23-2025 Telephone encounter Note* Telephone Encounter - Adelina Carver RN - 09/15/2024 12:06 PM EST Patient [...] with [facility] and requests call back at [phone]. Pended order. Adelina Craver RN [facility]12-27-2024 Telephone encounter Note* Telephone Encounter - Sylwia Palencia MA - 08/19/2024 3:29 PM EST Patient was notified Sylwia Palencia MA [facility]12-27-2024 Miscellaneous Notes* Telephone Encounter - Sylwia Palencia MA - 08/19/2024 3:29 PM EST Patient was notified Sylwia Palencia MA * Telephone Encounter - Janelle Morales APRN.CNP - 08/19/2024 3:27 PM EST Please let her know that her UA is negative. Janelle Morales APRN.ENOC documented in this encounterMary Rutan Hospital12-27-2024 Telephone encounter Note * Telephone Encounter - Janelle Morales APRN.CNP - 08/19/2024 3:27 PM EST Please let her know that her UA is negative. Janelle Morales APRN.CNP [facility] Work Phone: 1(923) 137-349512-23-2024 Telephone encounter Note* Telephone Encounter - Esha Santiago LPN - 08/15/2024 10:33 AM EST Spoke with pt and information listed below given. Pt verbalizes understanding. Esha Santiago LPN [facility]12-23-2024 Miscellaneous Notes* Telephone Encounter - Esha Santiago [...] Negative Negative Ketones, Urine Negative Negative Specific [place], Ur 1.005 - 1.030 1.009 Hemoglobin/Blood,Ur Negative Negative pH, Urine <8.5 6.5 Protein, Urine Negative Negative Urobilinogen 0.2-1.0 EU/dL 0.2 EU/dL Nitrites Negative Negative Leukest Negative Negative WBC, Urine 0-5 /HPF 0-5 /HPF RBC, Urine 0-2 /HPF 0-2 /HPF Bacteria Negative /HPF Negative Epithelial Cells /HPF None Seen Hyaline Cast 0 /LPF 0 /LPF documented in this encounterMary Rutan Hospital12-23-2024 Telephone encounter Note * Telephone Encounter - Yaa Ashby PA-C - 08/15/2024 7:30 AM EST Please let patient know that her urinalysis looks good. No blood. Follow up as needed. Yaa Ashby PA-C 08/15/2024 [facility]12-20-2024 Telephone encounter Note* Telephone Encounter - [...] Negative Negative Ketones, Urine Negative Negative Specific [place], Ur 1.005 - 1.030 1.009 Hemoglobin/Blood,Ur Negative Negative pH, Urine <8.5 6.5 Protein, Urine Negative Negative Urobilinogen 0.2-1.0 EU/dL 0.2 EU/dL Nitrites Negative Negative Leukest Negative Negative WBC, Urine 0-5 /HPF 0-5 /HPF RBC, Urine 0-2 /HPF 0-2 /HPF Bacteria Negative /HPF Negative Epithelial Cells /HPF None Seen Hyaline Cast 0 /LPF 0 /LPF [facility]12-06-2024 Telephone encounter Note* Telephone Encounter - Nydia Encarnacion RN - 07/29/2024 8:57 AM EST Patient notified of results and provider's instructions. Patient verbalizes understanding. Nydia Encarnacion RN [facility]12-06-2024 Miscellaneous Notes* Telephone Encounter - Nydia Encarnacion RN - 07/29/2024 8:57 AM EST Patient notified of results and provider's instructions. Patient verbalizes understanding. Nydia Encarnacion RN * Telephone Encounter - Nixon Araya LPN - 07/28/2024 8:56 AM EST left message for patient to call office back and speak with triage nurse. Nixon Araya LPN * Telephone Encounter - [...] Yaa Ashby PA-C 07/27/2024 documented in this encounterMary Rutan Hospital12-05-2024 NoteHNO ID: [id number] Author: DAQUAN BUCHANAN, ? Service: ? Author [...] by mouth daily except 7.5mg on ( [facility]) (Patient taking differently: 7.5 mg daily) [...] FLX DX W/COLLJ SPEC WHEN PFRMD 08/23/2019 [facility] Cebul repeat is not recommended NEUROPLASTY AND/TRANSPOS [...] year old female who (more content not included)...[facility]12-[facility] History of Present illness Narrative* Daquan [...] MD PAST MEDICAL HISTORY Diagnosis Date A-fib ([facility]) February 2021 Asthma Atrial tachycardia ([facility]) 10/14/2018 BPPV (benign paroxysmal positional vertigo) 10/30/2014 [...] by mouth daily [facility] (Patient taking differently: 7.5 mg daily) ALPHA [...] FLX DX W/COLLJ SPEC WHEN PFRMD 08/23/2019 [facility] Cebul repeat is not recommended NEUROPLASTY &/TRANSPOS [...] Daquan Buchanan DPM Podiatry [address] [facility] [address] Dept: [phone] Dept documented in this encounterMary Rutan Hospital12-05-2024 Telephone encounter Note * Telephone Encounter - Nixon Araya LPN - 07/28/2024 8:56 AM EST left message for patient to call office back and speak with triage nurse. Nixon Araya LPN [facility]12-04-2024 Telephone encounter Note* Telephone Encounter - Yaa [...] at the lab. Yaa Ashby PA-C 07/27/2024 [facility]12-03-2024 Telephone encounter Note* Telephone Encounter - Nixon Araya LPN - 07/26/2024 12:46 PM EST PATIENT notified and verbalized understanding. Nixon Araya LPN [facility]12-03-2024 Miscellaneous Notes* Telephone Encounter - Nixon Araya LPN - 07/26/2024 12:46 PM EST PATIENT notified and verbalized understanding. Nixon Araya LPN * Telephone Encounter - Yaa Ashby PA-C - 07/26/2024 12:17 PM EST Please let patient know that her CXR was normal. Advise f/u if not improving. Yaa Ashby PA-C 07/26/2024 documented in this encounterMary Rutan Hospital12-03-2024 Telephone encounter Note * Telephone Encounter - Yaa Ashby PA-C - 07/26/2024 12:17 PM EST Please let patient know that her CXR was normal. Advise f/u if not improving. Yaa Ashby PA-C 07/26/2024 [facility]12-03-[facility] History of Present illness Narrative* Elo Eisenberg RT(R) - 07/26/2024 10:00 AM EST Radiology [...] PATIENT PRESENTS WITH AN IMPLANTABLE OR ATTACHED RETIREMENT SPECIALIST: No RADIOLOGY DEPARTMENT: General X-ray: Exam(s) Completed: Chest X-Ray PERIPHERAL IV DATA: Not applicable SIGNED BY: RT Nolan(R) July 26, 2024 10:15 AM documented in this encounterMary Rutan Hospital12-03-2024 NoteHNO ID: [id number] Author: ELO EISENBERG RT(R) Service: ? 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 Author Type: Physician Change Management Type: Progress Notes Filed: 07/26/2024 10:06 Note [...] History of a-fib, on coumadin, follows with [facility]. PAST MEDICAL HISTORY Diagnosis Date A-fib ([facility]) February 2021 Asthma Atrial tachycardia (HCC) 10/14/2018 [...] by mouth daily except 7.5mg on ( [facility]) (Patient taking differently: 7.5 mg daily) [...] 67 Resp 12 Ht 165.1 cm (5' 5) Wt 73.9 kg (162 lb 14.7 oz) [...] TABLET,EXTENDED RELEASE 24 HR, she will contact [facility] (repeat INR) 2. Urge incontinence - ICD9: 788.31, ICD10: N39.41 As above - UA DIP B/O - URINE CULTURE 3. Acute cough - ICD9: 786.2, ICD10: R05.1 Concern for atelectasis with recent rib injury, will check CXR r/o infiltrate. - XR CHEST 2V FRONTAL/LAT 4. Paroxysmal atrial fibrill (more content not included)...[facility]12-03-2024 History of Present illness Narrative* Yaa [...] Non-smoker.History of a-fib, on coumadin, follows with [facility]. PAST MEDICAL HISTORY Diagnosis Date A-fib (HCC) [...] by mouth daily [facility] ( [facility]) (Patient taking differently: 7.5 mg daily) ALPHA [...] 67 Resp 12 Ht 165.1 cm (5' 5) Wt 73.9 kg (162 lb 14.7 oz) [...] TABLET,EXTENDED RELEASE 24 HR, she will contact [facility] (repeat INR) 2. Urge incontinence - ICD9: 788.31, ICD10: N39.41 As above - UA DIP B/O - URINE CULTURE 3. Acute cough - ICD9: 786.2, ICD10: R05.1 Concern for atelectasis with recent rib injury, will check CXR r/o infiltrate. - XR CHEST 2V FRONTAL/LAT 4. Paroxysmal atrial fibrillation (HCC) - ICD9: 427.31, ICD10: I48.0 Continue coumadin, following iw [facility] 5. Microscopic hematuria - ICD9: [...] sooner. Yaa Ashby PA-C documented in this encounterMary [facility]11-[facility]24 Telephone encounter Note * Telephone Encounter - Patricia Perkins LPN - 06/29/2024 2:02 PM EST Pt notified of results & recommendation. Pt voiced understanding. Patricia Perkins LPN [facility]11-06-2024 Miscellaneous Notes* Telephone Encounter - Patricia Perkins [...] advise, Nydia Encarnacion RN documented in this encounterMary [facility]an Hospital11-06-2024 Telephone encounter Note * Telephone Encounter - José Miguel Saldaña APRN.CNP - 06/29/2024 1:42 PM EST No concerns on xray. Recommend continuing with dr. Quintero order for physical therapy. Thank you José Miguel Saldaña APRN.CNP [facility] Work Phone: [phone] 636-541811-06-2024 Telephone encounter Note* Telephone Encounter - Nydia Encarnacion RN - 06/29/2024 12:30 PM EST Patient calling and asking about the results of X ray she had done on 06/27/2024. Please review and advise, Nydia Encarnacion RN [facility]11-04-2024 Telephone encounter Note* Telephone Encounter - Julieta Cat MA - 06/27/2024 11:04 AM EST Consult to GI faxed to Dr. Mata's office. Julieta Cat MA [facility]11-04-2024 Miscellaneous Notes* Telephone Encounter - Julieta Cat MA - 06/27/2024 11:04 AM EST Consult to GI faxed to Dr. Mata's office. Julieta Cat MA documented in this encounterMary Rutan Hospital11-04-2024 History of Present illness Narrative* Elo Eisenberg [...] PATIENT PRESENTS WITH AN IMPLANTABLE OR ATTACHED RETIREMENT SPECIALIST: No RADIOLOGY DEPARTMENT: General X-ray: Exam(s) Completed: Rib X-Ray: Left PERIPHERAL IV DATA: Not applicable SIGNED BY: RT Nolan(R) June 27, 2024 11:16 AM documented in this encounterMary Rutan Hospital11-04-2024 History of Present illness Narrative* Moon [...] to a new place. [place] [facility] It is a radha community of older [...] FLX DX W/COLLJ SPEC WHEN PFRMD 08/23/2019 [facility]-Ana Estrella repeat is not recommended NEUROPLASTY &/TRANSPOS [...] 53 Resp 12 Ht 165.1 cm (5' 5) Wt 73 kg (161 lb) SpO2 94% [...] LEFT Moon Teixeira MD documented in this encounterMary [facility]an Hospital11-04-2024 Telephone encounter Note * Telephone Encounter - Vernell James RN - 06/27/2024 8:27 AM EST Patient calling to make ER Follow Up Appointment and discuss current residual sx's she is having. Appt made with PCP for today. Pt states she went to [facility] ER on 06/22/24 after falling forward onto [...] as discussed during call. Vernell James RN [facility]11-04-2024 Miscellaneous Notes* Telephone Encounter - Vernell James RN - 06/27/2024 8:27 AM EST Patient calling to make ER Follow Up Appointment and discuss current residual sx's she is having. Appt made with PCP for today. Pt states she went to [facility] ER on 06/22/24 after falling forward onto [...] severe sx's as discussed during call. Vernell Wurst, RN documented in this encounterMary Rutan Hospital10-25-2024 Telephone encounter Note * Telephone Encounter - Nazanin Reyes MA - 06/17/2024 9:51 AM EDT Faxed GI referral to Dr John office. Faxed swallow study to [facility]. [facility]10-25-2024 Miscellaneous Notes* Telephone Encounter - Nazanin Reyes MA - 06/17/2024 9:51 AM EDT Faxed GI referral to Dr John office. Faxed swallow study to [facility]. * Telephone Encounter - Vernell Platt - 06/17/2024 9:34 AM EDT Spoke with the patient and she prefers this order to be faxed to Dr John * Telephone Encounter - Moon Teixeira MD - 06/16/2024 5:24 PM EDT Order placed please help with scheduling Regards, Moon Teixeira MD * Telephone Encounter - Adelina Carver RN - 06/16/2024 2:15 PM EDT Heide SHUKLA with [facility] calls to let provider know that her recommendation following the swallow study isfor a gi referral (patient had a lot of reflux on study) and an order for Fiberoptic Endoscopic evaluation of Swallowing (FEES). Adelina Carver RN documented in this encounterMary [facility]an Hospital10-25-2024 Telephone encounter Note * Telephone Encounter - Vernell Platt - 06/17/2024 9:34 AM EDT Spoke with the patient and she prefers this order to be faxed to Dr John [facility]10-24-[facility]24 Telephone encounter Note* Telephone Encounter - Moon Teixeira MD - 06/16/2024 5:24 PM EDT Order placed please help with scheduling Regards, Moon eTixeira MD [facility]10-24-[facility]24 Telephone encounter Note* Telephone Encounter - Adelina Carver RN - 06/16/2024 2:15 PM EDT Heide SHUKLA with [facility] calls to let provider know that her recommendation following the swallow study isfor a gi referral (patient had a lot of reflux on study) and an order for Fiberoptic Endoscopic evaluation of Swallowing (FEES). Adelina Carver, RN [facility]09-26-2024 Telephone encounter Note* Telephone Encounter - Mago Cerrato LPN - 05/19/2024 11:49 AM EDT Called and spoke to Radiology Darlin, Faxed order and facesheet Mago Cerrato LPN May 19, 2024 11:49 AM [facility]09-26-2024 Miscellaneous Notes* Telephone Encounter - Mago Cerrato LPN - 05/19/2024 11:49 AM EDT Called and spoke to Radiology Darlin, Faxed order and facesheet Mago Cerrato LPN [...] Pt is going to be going to [facility] ER to be checked out. Letting providers office know so they can look out for ER report. * Telephone Encounter - Esha Santiago LPN - 05/17/2024 9:18 AM EDT Alexa with [facility] radiology called to let you know pt [...] advisept when orders have been faxed to [facility] so she can call to schedule. Esha Santiago LPN documented in this encounterMary [facility]an Hospital09-24-2024 Telephone encounter Note * Telephone Encounter - Moon Teixeira MD - 05/17/2024 1:05 PM EDT Ok noted. I put an order for swallow eval, please see if that would is the order the radiologist is looking for? Thank you Regards, Moon Teixeira MD [facility]09-24-2024 Telephone encounter Note* Telephone Encounter - Megan Rodriguez RN - 05/17/2024 9:58 AM EDT Pt called in and reports she fell last night going to the bathroom and hit her head. She said she somersaulted and has a bump on her head, and she is on a blood thinner. Pt is going to be going to [facility] ER to be checked out. Letting providers office know so they can look out for ER report. [facility]-24-[facility] Telephone encounter Note* Telephone Encounter - Esha Santiago LPN - 05/17/2024 9:18 AM EDT Alexa with [facility] radiology called to let you know pt [...] advisept when orders have been faxed to [facility] so she can call to schedule. Esha Santiago LPN [facility]09-13-[facility]24 History of Present illness Narrative* Moon [...] to a new place. [facility] is [facility] [employer] [facility] [employer]. It is a radha community of older [...] FLX DX W/COLLJ SPEC WHEN PFRMD 08/23/2019 [facility]-R. Cebul repeat is not recommended NEUROPLASTY &/TRANSPOS [...] exercise Moon Teixeira MD documented in this encounterMary [facility]an Hospital09-06-2024 Telephone encounter Note * Telephone Encounter - Linda Mars LPN - 04/29/2024 3:00 PM EDT Pt returns call , gave information provided. Pt voices understanding. [facility]09-06-2024 Miscellaneous Notes* Telephone Encounter - Linda Mars [...] this medication. Please advise. documented in this encounterMary [facility]an Hospital09-06-2024 Telephone encounter Note * Telephone Encounter - Nazanin Reyes MA - 04/29/2024 2:42 PM EDT Tried calling patient, no answer/VM, [facility]09-06-[facility]24 Telephone encounter Note* Telephone Encounter - Moon [...] stop the medication,. Regards, Moon Teixeira MD [facility]09-06-2024 Telephone encounter Note* Telephone Encounter - Debra Cho LPN - 04/29/2024 11:46 AM EDT Patient calling, states that she read the side effects of the Lexapro and does not want to take it anymore. Asking how she should wean off of this medication. Please advise. [facility]09-04-[facility]24 Telephone encounter Note* Telephone Encounter - Janessa Morton LPN - 04/27/2024 8:42 AM EDT Patient returned call and went over results from Dr Teixeira with understanding. [facility]09-04-2024 Miscellaneous Notes* Telephone Encounter - Janessa Morton [...] . Patricia Perkins LPN documented in this encounterMary [facility]an Hospital09-04-2024 Telephone encounter Note * Telephone Encounter - Moon Teixeira MD - 04/27/2024 6:31 AM EDT No rib fracture on the left side Moon Sanez MD [facility]09-03-2024 Telephone encounter Note* Telephone Encounter - Patricia Perkins LPN - 04/26/2024 2:46 PM EDT Pt calling for xray results from . Patricia Perkins LPN [facility]08-31-[facility] History of Present illness Narrative* Errol Raphael RT(R) - 04/23/2024 10:00 AM EDT Radiology [...] PATIENT PRESENTS WITH AN IMPLANTABLE OR ATTACHED RETIREMENT SPECIALIST: No RADIOLOGY DEPARTMENT: General X-ray: Exam(s) Completed: Rib X-Ray: Left PERIPHERAL IV DATA: Not applicable SIGNED BY: RT Abimbola(R) April 23, 2024 10:08 AM documented in this encounterMary [facility]an Hospital08-30-2024 History of Present illness Narrative* Moon Teixeira [...] encounter. PAST MEDICAL HISTORY No date: A-fib ([facility]) Comment: February 2021 No date: Asthma 10/14/2018: Atrial tachycardia ([facility]) 10/30/2014: BPPV (benign paroxysmal positional vertigo) 08/10/2014: [...] FLX DX W/COLLJ SPEC [facility]: NEUROPLASTY &/TRANSPOS [...] LEFT Moon Teixeira MD documented in this encounterMary [facility] Hospital08-13-2024 History of Present illness Narrative* Moon [...] 44. She has a loop recorder from [facility]. She will follow up on May 03 [...] FLX DX W/COLLJ SPEC WHEN PFRMD Comment: [facility]. Cebul repeat is not recommended 1990: NEUROPLASTY &/TRANSPOS MEDIAN NRV CARPAL TUNNE Comment: Carpal tunnel decomp-bilateral 08-21-05: PAST SURGICAL HISTORY OF Comment: EXCISION CYST LEFT MIDDLE FINGER No date: PAST SURGICAL HISTORY OF Comment: right foot surgery- mortons neuroma 2014: PAST SURGICAL HISTORY OF Comment: left foot vein ablation 1962: TONSILLECTOMY PRIMARY/SECONDARY AGE 12/> FAMILY HISTORY Problem [...] FERRITIN Moon Teixeira MD documented in this encounterMary [facility] Hospital07-29-2024 Telephone encounter Note * Telephone Encounter - Adelina Carver RN - 03/21/2024 12:11 PM EDT Patient calls and notified of results and providers instructions. Patient verbalizes understanding. Adelina Carver RN [facility]07-29-2024 Miscellaneous Notes* Telephone Encounter - Adelina Carver RN - 03/21/2024 12:11 PM EDT Patient calls and notified of results and providers instructions. Patient verbalizes understanding. Adelina Carver RN * Telephone Encounter - Paul Philip LPN - 03/21/2024 9:36 AM EDT Left message for pt to contact office. Paul Philip LPN * Telephone Encounter - Nirali Almanza PA-C - 03/21/2024 9:22 AM EDT Let patient know that her Carotid US is overall normal for 78yo. Only mild disease noted. documented in this encounterMary [facility]an Hospital07-29-2024 Telephone encounter Note * Telephone Encounter - Paul Philip LPN - 03/21/2024 9:36 AM EDT Left message for pt to contact office. Paul Philip LPN [facility]07-29-2024 Telephone encounter Note* Telephone Encounter - Nirali Almanza PA-C - 03/21/2024 9:22 AM EDT Let patient know that her Carotid US is overall normal for 78yo. Only mild disease noted. [facility] Telephone encounter Note* Telephone Encounter - Elizabeth [...] Advised per 02-22-24 telephone encounter provider advised no significant CHF noted on echo. Patient states she feels better just knowing this. Reports her in February, and her dog in November, and she lives in an apartment, that sheis moving out of in March, and moving back to [place]. We discussed these stressors for a while, [...] to Dr. Shirley. Patient reports she saw [facility] a couple months ago and talked about heart failure with the Handle Sander Operator there, and Handle Sander Operator felt patient was fine. Reports she has [...] call squadif any symptoms/signs of low BP. [facility]07-23-[facility]24 Miscellaneous Notes* Telephone Encounter - Elizabeth Gonzalez RN - 03/15/2024 8:43 AM EDT Patient was transferred to this nurse with concerns of having heart failure. Reports she is feelingmore tired lately, but admits she is not sleeping well. Reports she had a ECHO done recently, and was not told if it showed that she had CHF. Advised per 02-22-24 telephone encounter provider advised no significant CHF noted on echo. Patient states she feels better just knowing this. Reports her in February, and her dog in November, and she lives in an apartment, that sheis moving out of in March, and moving back to [place]. We discussed these stressors for a while, and patient states talking with this nurse has made her feel better and the anxiety is less now. Reports she has an appt with Dr. Bowamn, cardiology in Apr, and also with Dr. Shirley, to check her loop recorder/pacemaker. Reports the loop recorder records her heart activity 16/03 and sends a report to Dr. Shirley. Patient reports she saw [facility] a couple months ago and talked about heart failure with the Handle Sander Operator there, and Handle Sander Operator felt patient was fine. Reports she has an appt with Dr. Teixeira 04-05-24. Patient gave her BP readings: 132/80 (57), 102/79 (89), 94/73, 100/80, 99/77, 96/80, 94/73. Reportsshe has metoprolol to take only if she [...] symptoms/signs of low BP. documented in this encounterMary [facility]an Hospital07-01-2024 Telephone encounter Note * Telephone Encounter - Nydia Encarnacion RN - 02/22/2024 4:59 PM EDT Patient notified of results and provider's instructions. Patient verbalizes understanding. Nydia Encarnacion RN [facility]07-01-2024 Miscellaneous Notes* Telephone Encounter - Nydia Encarnacion RN - 02/22/2024 4:59 PM EDT Patient notified of results and provider's instructions. Patient verbalizes understanding. Nydia Encarnacion RN * Telephone Encounter - Paul Philip LPN - 02/22/2024 1:57 PM EDT Left message for pt to contact office. Paul Phiilp LPN * Telephone Encounter - Nirali Almanza PA-C - 02/22/2024 1:17 PM EDT Let patient know that overall echo is okay. Mild-mod valve disease. Mildly worse than previous echo. No significant CHF noted on echo. Continue with follow up with cardio. Nirali Almanza PA-C documented in this encounterMary [facility]an Hospital07-01-2024 Telephone encounter Note * Telephone Encounter - Paul Philip LPN - 02/22/2024 1:57 PM EDT Left message for pt to contact office. Paul Philip LPN [facility]07-01-2024 Telephone encounter Note* Telephone Encounter - Nirali Almanza PA-C - 02/22/2024 1:17 PM EDT Let patient know that overall echo is okay. Mild-mod valve disease. Mildly worse than previous echo. No significant CHF noted on echo. Continue with follow up with cardio. Nirali Almanza PA-C [facility]-20-[facility] Telephone encounter Note* Telephone Encounter - Esha Santiago LPN - 02/11/2024 8:56 AM EDT Spoke with pt and information listed below given. Pt verbalizes understanding. Esha Santiago LPN [facility]-20-[facility] Miscellaneous Notes* Telephone Encounter - Esha Santiago [...] PCP at next visit. documented in this encounterMary [facility]an Hospital06-20-2024 Telephone encounter Note * Telephone Encounter - Nirali Almanza PA-C - 02/11/2024 8:40 AM EDT Labs and urine look okay. BUN elevated which likely means she is mildly dehydrated. Cholesterol to be addressed/discussed with PCP at next visit. 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 Patient has had neck pain for the past week. Pain with ROM. No fevers Has been under more stress. last year. She has moved and is moving back to [place] soon. Her dog recently . Patient has [...] FLX DX W/COLLJ SPEC WHEN PFRMD 08/23/2019 [facility]. Cebul repeat is not recommended NEUROPLASTY &/TRANSPOS MEDIAN NRV CARPAL TUNNE 1990 Carpal tunnel decomp-bilateral PAST SURGICAL HISTORY OF 08-21-05 EXCISION CYST LEFT MIDDLE FINGER PAST SURGICAL HISTORY OF right foot surgery- mortons neuroma PAST SURGICAL HISTORY OF 2013 left foot vein ablation TONSILLECTOMY PRIMARY/SECONDARY AGE 12/> 1961 Family History FAMILY HISTORY Problem Relation Age [...] by [facility] (Patient taking differently: 7.5 mg daily) ALPHA [...] input on stress testing. 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 - COMPLETE BLOOD COUNT AND DIFFERENTIAL - [...] cardio. Nirali Almanza PA-C documented in this encounterMary [facility]an Hospital06-19-2024 Telephone encounter Note * Telephone Encounter - [...] on left side; stands up feel like everything is draining out to her feet; sleepy at times Protocols used: [id number] [facility]06-19-2024 Miscellaneous Notes* Telephone Encounter - Nydia Encarnacion [...] on left side; stands up feel like everything is draining out to her feet; sleepy at times Protocols used: [id number] documented in this encounterMary Rutan Hospital05-23-2024 Telephone encounter Note * Telephone Encounter - Moon Teixeira MD - 01/14/2024 7:37 AM EDT Yes, I can see her and we can talk and see if we are a good match [facility] Work Phone: 1(962) 496-339805-23-2024 Miscellaneous Notes* Telephone Encounter - Moon Teixeira [...] Please let her know. documented in this encounterMary Rutan Hospital05-23-2024 Telephone encounter Note * Telephone Encounter - Moon Teixeira MD - 01/14/2024 7:36 AM EDT Yes, I can see her. [facility]-21-2024 Telephone encounter Note* Telephone Encounter - Merly Rodriguez - 01/12/2024 10:06 AM EDT Pt called to cancel apt she is moving back to [place] [facility]05-21-2024 Miscellaneous Notes* Telephone Encounter - Merly Rodriguez - 01/12/2024 10:06 AM EDT Pt called to cancel apt she is moving back to [place] documented in this encounterMary Rutan Hospital05-10-2024 Telephone encounter Note * Telephone Encounter - Linda Cannon - 01/01/2024 10:54 AM EDT Pt is calling to check if Dr. Teixeira would be willing to see her as a pt when she returns. states she was her husbands doctor before he and would be interested in seeing her. Please let her know. [facility] Work Phone: 1(252) 640-179703-18-2024 Miscellaneous Notes* Telephone Encounter - Belen Robles Ma - 11/09/2023 10:18 AM EDT Please read note below. Willing to start statin. * Telephone Encounter - Elizabeth Dale PA-C - 11/09/2023 9:23 AM EDT Telephone on 11/06/23 HGB A1C BASIC METABOLIC PNL ThanksCasey PA-C * Telephone Encounter - Megan Rodriguez [...] her Lipid panel and went over providers message,Your total cholesterol is in good range, LDL remains borderline. 1/3 people with your cholesterol results would be likely to have a heart attack or stroke. I would still recommend statin therapy.. Pt states provider never did anything about [...] call and advise Pt. documented in this encounterMary [facility]an Hospital12-13-2023 Miscellaneous Notes* Telephone Encounter - Linda Schrader LPCC - 08/05/2023 3:11 PM EST Behavioral Health Social Work Progress Note Patient identified for [facility] from: PCP Reason for referral: [facility] Behavioral Health Resources: Psychology - talk therapy [facility] encounter type: Telephone Encounter Attempts to Outreach: 1 attempt Patient Discharged?: No Patient reported that caregiver was able to meet their needs today?: N/A Phone call was placed to patient. Message was left with brief nature of call and requesting a call back. Pt does not have MyChart. Awaiting return call. KINJAL Og-S August 05, 2023 documented in this encounterMary [facility]an Hospital11-27-2023 Telephone encounter Note * Telephone Encounter - Celena Reis RN - 07/20/2023 4:50 PM EST Spoke with patient. Given message from provider's office. Patient verbalizes understanding. She says she will consider statin therapy but does not remember discussing this in the past. Celena Reis RN [facility]11-27-2023 Miscellaneous Notes* Telephone Encounter - Celena Reis [...] Happy Thanksgiving! If you have questions, either RetiDiag message us or call the office at [phone] and ask for me. Best regards, Casey Dale PA-C documented in this encounterMary Rutan Hospital11-27-2023 Telephone encounter Note * Telephone Encounter - Gigi Rouse LPN - 07/20/2023 12:49 PM EST Left message for pt to return call to office. Gigi Rouse [facility]11-27-2023 Telephone encounter Note* Telephone Encounter - Gigi [...] Happy Thanksgiving! If you have questions, either RetiDiag message us or call the office at [phone] and ask for me. Best regards, Casey Dale PA-C [facility]11-22-2023 History of Present illness Narrative* Errol Raphael RT(R) - 07/15/2023 10:40 AM EST Radiology Service Progress Note PATIENT NAME: aCdy Berumen DATE OF SERVICE: July 15, 2023 [...] IV DATA: Not applicable SIGNED BY: RT Abimbola([place]) July 15, 2023 10:40 AM documented in this encounterMary Rutan Hospital11-22-2023 History of Present illness Narrative* Patrizia Willis APRN.EARLY CHILDHOOD - 07/15/2023 10:02 AM EST SUBJECTIVE Cady [...] Medications Current Outpatient Medications Medication Sig Boswellia cecile extract (BOSWELLIA CECILE [...] by mouth daily [facility] (Patient taking differently: 7.5 mg daily) ALPHA [...] (Shortness of Breath) - 12/23/2021 Comment: 12/18/2021 Dr. Watkins W [facility]: Exercise stress test Lopez protocol 38 seconds stage I, 38 seconds stage II achieving MHR 122, 84% predicted, 4 METS. Functional capacity decreased. Nuclear imaging demonstrated uniform tracer uptake, no ischemia. LVEF 77% Essential Hypertension Paroxysmal Atrial Fibrillation ([facility]) - 02/04/2019 Comment: 03/13/21 24-hour [...] Recurrent Major Depressive Disorder, Without Psychotic Features ([facility]) - 11/29/2018 Facet Arthritis of Cervical Region - 06/16/2018 Asthma - 04/20/2018 Varicose Veins of Left Lower Extremity With Pain - 03/03/2018 Comment: Added automatically from request for surgery [id number] Vestibular Neuronitis of Right Ear - 08/14/2017 [...] for Keep next scheduled appointment.. Patrizia Willis APRN-EARLY CHILDHOOD documented in this encounterMary Rutan Hospital11-07-2023 Discharge summary Author Ousmane Montero [facility] June 30, 2023 4:53pm Note Date/Time June 30, 2023 4 :53pm [facility] Physical Therapy [facility] [address] [place] [address]. [address] [place] [address] / REHABILITATION SERVICES DISCHARGE SUMMARY MR#: [id number] Acct: [id number] Name: CADY BERUMEN Rep #: [id number] : 1945 77 From: Ousmane Montero DPT, OCS, CSCS Referring DrLonnie: JEANNIE Pires Status: REG R Insurance: [employer] PAY INSURANCE Patient Information [...] by the physician. Thank you! Ousmane Montero, LUIST, OCS, CSCS Balance/Gait/Functional tests Balance/Special Test Scores Functional Gait Assessment Score: 23 % Disability: 23.3400 CATSIB Score (Max score 120 seconds): 120 Dizziness Score: 34 <Electronically signed by Ousmane Montero DPT, OCS, CSCS> 06/30/23 1653 CC: JEANNIE Pires ~ EBG Signed [facility] Work Phone: 1(561) 365-973010-17-2023 Miscellaneous Notes* Telephone Encounter - Linda Schrader LPCC - 06/09/2023 4:28 PM EDT Behavioral Health Social Work Progress Note Patient identified for [facility] from: PCP Reason for referral: Resources [facility] encounter type: Telephone Encounter Attempts to Outreach: 1 attempt Patient Discharged?: No Patient reported that caregiver was able to meet their needs today?: N/A Phone call placed today, neither number listed is a working number. Initial outreach also halle Gonzalez sending list of in network providers with insurance. KINJAL Og-S June 09, 2023 documented in this encounterMary Rutan Hospital10-17-2023 History of Present illness Narrative* Elizabeth Dale PA-C - 06/09/2023 2:00 PM EDT 77 year old female with c/o here for follow Dog 12/25/2022, 02/27/2023. Moved to [place] in to her dream home. Very peacefuland beautiful. Had christianson offer from [employer]. Adjusting to not being a caregiver constantly. Doing yoga and vestibular program with parkinson's support group. Essential hypertension (primary encounter diagnosis) Paroxysmal atrial fibrillation (hcc) Paroxysmal atrial tachycardia Current medications: Metoprolol tartrate 25mg twice a day Warfarin per [facility] Afib comes and goes. 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 Does seem to be having fun in [...] [facility] with Parkinson's [facility]. She feels like [...] FLX DX W/COLLJ SPEC WHEN PFRMD 08/23/2019 [facility] Cebul repeat is not recommended NEUROPLASTY &/TRANSPOS [...] by mouth daily except [facility]mg [facility] ( [facility]) (Patient taking differently: Take 8 mg on [...] 08/24/2022 Influenza Vaccine(1) due on 04/24/2023 Covid-19 Vaccine(2022-24 season) due on 04/24/2023 EXAM: BP 128/70 [...] is stable, has paroxysmal episodes Follows with [facility] 4. Varicose veins of left lower [...] visit Elizabeth Dale PA-C documented in this encounterMary Rutan Hospital07-18-2023 History of Present illness Narrative* Mynor Shirley MD - 03/10/2023 11:15 AM EDT Images from the original note were not included. [facility] [place] Annette Velasquez Department of Cardiovascular Medicine SECTION OF CARDIAC PACING and ELECTROPHYSIOLOGY OUTPATIENT VISIT DATE March 10, 2023 OUTPATIENT VISIT TYPE ESTABLISHED PRIMARY CARE PHYSICIAN: Elizabeth Dale [address] [place] [address] CHIEF COMPLAINT: Occasional palpitations with AF when [...] FLX DX W/COLLJ SPEC WHEN PFRMD [facility]2019 [facility] repeat is not recommended NEUROPLASTY &/TRANSPOS [...] by mouth daily except [facility] ( [facility]) (Patient taking differently: Take 8 mg on [...] 136/66 Pulse 63 Ht 165.1 cm (5' 5) Wt 69.9 kg (154 lb) BMI 25.63 [...] 100 bpm on 18-Feb-2023. On warfarin per [facility]. FOLLOW UP: Continue with 1-month remote transmissions [...] INFORMATION: Mynor Shirley MD documented in this encounterMary Rutan Hospital07-12-2023 Instructions* Patient Instructions* Terri Gomez DPM - [...] office to discuss other options. [facility] will accept Good RX as well and may offer substantial saving if the cost to you for this medication is high. documented in this encounterMary Rutan Hospital07-12-2023 History of Present illness Narrative* Treri Gomez, DPM - 03/04/2023 2:56 PM EDT Images [...] 5.5 4.3 - 5.6 % Final Comment: [place] [employer] guidelines indicate that patients with [...] by mouth daily except 7.[facility]mg [facility] ( [facility]) (Patient taking differently: Take 8 mg on [...] FLX DX W/COLLJ SPEC WHEN PFRMD 08/23/2019 [facility]. Cebul repeat is not recommended NEUROPLASTY &/TRANSPOS [...] office to discuss other options. [facility] will accept Good RX as well and may offer substantial saving if the cost to you for this medication is high. 3. Will hold MRI 4. William splint for 2 more weeks and then transition back to regular activity. Billed for tx of nail fungus within global for toe fracture. Terri Gomez DPM, DABPM, FACFAS Pager: [phone] [facility] [place] [facility] and [facility] locations documented in this encounterMary Rutan Hospital06-28-2023 Miscellaneous Notes* Telephone Encounter - Lindy Acevedo [...] EDT February 18, 2023 Patient Contact Number: [phone] Patient last seen within the last year: Yes 12/14 Loop Recorder Implant Reason For Call: Back in [facility] Off & on. Patient wakes up in [...] days. Yes Radha Tolbert documented in this encounterMary Rutan Hospital06-23-2023 Miscellaneous Notes* Telephone Encounter - Megan Rodriguez RN - 02/13/2023 12:28 PM EDT Appt scheduled 02/20 at 1 pm. Encouraged pt to use Tylenol, knee brace, ice and elevation as needed to help with knee discomfort. * Telephone Encounter - Elizabeth Dale PA-C - 02/13/2023 12:15 PM EDT Please [...] she needs an xray. documented in this encounterMary Rutan Hospital06-14-2023 NoteHNO ID: [id number] Author: BALWINDER Munson Service: Radiology Author Type: [...] BY: BALWINDER Munson February 04, 2023 11:24 AMCleveland Clinic Avon [id number] History of Present illness Narrative* Terri Gomez DPM - 02/04/2023 11:57 AM EDT Images [...] 5.5 4.3 - 5.6 % Final Comment: [place] [employer] guidelines indicate that patients with [...] by mouth daily except 7.[facility]mg on ( [facility] (Patient taking differently: Take 8 mg on [...] FLX DX W/COLLJ SPEC WHEN PFRMD 08/23/2019 [facility] Cebul repeat is not recommended NEUROPLASTY &/TRANSPOS MEDIAN NRV CARPAL QUINTINE 1990 Carpal tunnel decomp-bilateral PAST SURGICAL HISTORY OF 08-21-05 EXCISION CYST LEFT MIDDLE FINGER PAST SURGICAL HISTORY OF right foot surgery- mortons neuroma PAST SURGICAL HISTORY OF 2013 left foot vein ablation TONSILLECTOMY PRIMARY/SECONDARY AGE 12/> 1962 Physical Exam: OBJECTIVE: Constitutional: Pt is a [...] Abs Lymph 1.00 - 4.00 k/uL 1.43 Hoke% % 10.4 Abs Hoke <0.87 k/uL 0.61 Eosin% % 2.7 Abs [...] as this helped the last time. Terri Gomez, DPElizabeth, DABPM, FACFAS Pager: [phone] [facility] [place] [facility] and [facility] locations documented in this encounterMary Rutan Hospital06-14-2023 History of Present illness Narrative* Ivy George [...] 04, 2023 11:24 AM documented in this encounterMary Rutan Hospital06-02-2023 Miscellaneous Notes* Telephone Encounter - Carmen Guzman RN - 01/23/2023 10:35 AM EDT Patient calling Her loop recorder is ok for her to have the MRI Pt will call the device clinic to make sure then call and schedule MRI documented in this encounterMary Rutan Hospital05-31-2023 NoteHNO ID: [id number] Author: Alexis Hawkins Service: Radiology Author Type: 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 Type: Progress Notes Filed: 01/21/2023 5:20 PM [...] BY: Alexis Hawkins January 21, 2023 5:19 PMCleveland Clinic Avon [id number] NoteHNO ID: [id number] Author: RT Chandra(R) Service: Radiology Author Type: Technologist Type: Progress [...] BY: RT Chandra(Frederick) January 21, 2023 4:18 PMCleveland Clinic Avon [id number] History of Present illness Narrative* Rena Linares [...] BY: Alexis Hawkins January 21, 2023 5:19 PM documented in this encounterMary Rutan Hospital05-31-2023 History of Present illness Narrative* Terri Gomez DPM - 01/21/2023 3:44 PM EDTAssociated Order(s): Nerve [...] 5.5 4.3 - 5.6 % Final Comment: [place] [employer] guidelines indicate that patients with [...] by mouth daily except 7.5mg on ( [facility]) (Patient taking differently: Take 8 mg on [...] FLX DX W/COLLJ SPEC WHEN PFRMD 08/23/2019 [facility]. Cebul repeat is not recommended NEUROPLASTY &/TRANSPOS MEDIAN NRV CARPAL TUNNE 1990 Carpal tunnel decomp-bilateral PAST SURGICAL HISTORY OF 08-21-05 EXCISION CYST LEFT MIDDLE FINGER PAST SURGICAL HISTORY OF right foot surgery- mortons neuroma PAST SURGICAL HISTORY OF 2013 left foot vein ablation TONSILLECTOMY PRIMARY/SECONDARY AGE 12/> 1962 Physical Exam: OBJECTIVE: Constitutional: Pt is a [...] diagnosis and treatment options Terri Gomez DPM, DABPM, FACFAS Pager: [phone] [facility] [place] [facility] locations documented in this encounterMary Rutan Hospital05-09-2023 Instructions* Patient Instructions* Elizabeth Dale PA-C - [...] weeks, call the office. documented in this encounterMary Rutan Hospital05-09-2023 History of Present illness Narrative* Elizabeth Dale [...] by mouth daily except [facility] ( [facility]) (Patient taking differently: Take 8 mg on [...] theoffice. Elizabeth Dale PA-C documented in this encounterMary Rutan Hospital04-17-2023 History of Present illness Narrative* Elizabeth Dale [...] Mild asthma without complication, unspecified whether persistent Flat Knitter Helper: none. Interval history: stable. Current medications: none [...] FLX DX W/COLLJ SPEC WHEN PFRMD 08/23/2019 [facility] Cebul repeat is not recommended NEUROPLASTY &/TRANSPOS [...] by mouth daily except 7.[facility]mg on ( [facility]) (Patient taking differently: Take 8 mg on [...] needed. Elizabeth Dale PA-C documented in this encounterMary Rutan Hospital04-07-2023 History of Present illness Narrative* Linda Low [...] discussed with Physician, nurse practitioner or Physician certified medical assistant upon discharge Instructions for transmitting EKG to Monitoring Center 3 month follow up instructions Contact number for information and questions Patient Evaluation: Verbalizes understanding Follow Up Plan: Follow up as directed by MD. Supplemental Material Given: Written Material Patient is aware she needs a route delivery driver home Instructed By Linda Low RN, RN. In Department of CARDIOLOGY. documented in this encounterMary Rutan Hospital03-08-2023 Miscellaneous Notes* Telephone Encounter - Penny Mosley [...] Procedure requested: Other Procedures Loop Implant CPT 28532 Anticoagulation Status: INR in [facility] Requesting Physician: Mynor Shirley MD Procedural Physician: [...] 28, 2022 11:01 AM documented in this encounterMary Rutan Hospital03-01-2023 Miscellaneous Notes* Telephone Encounter - Celena Reis RN - 10/22/2022 3:38 PM EST Patient calling to let PCP know she will be seeing Cardiology @ [facility] on 10/28/22. Celena Reis RN documented in this encounterMary Rutan Hospital02-28-2023 Miscellaneous Notes* Telephone Encounter - Julieta Cat MA - 10/21/2022 3:46 PM EST Consult to PT faxed to [facility] [employer] per patient's request. Julieta Cat MA documented in this encounterMary Rutan Hospital02-20-[address] Fay [facility] October 14, 2022 12:09am Note Date/Time October 13, 2022 11:52pm [facility] Medical Records Department [address] [place] [address] Emergency Department Summary 10/13/22 MR#: [id number] Acct: [id number] Name: CADY BERUMEN Rep #:[id number] : 1945 76 From: Ignacio Fay [...] and she did not fall to thefloor. 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 Near syncope PRAMOD (obstructive sleep apnea) Osteoarthritis Osteopenia Paroxysmal atrial fibrillation Shortness of breath Varicose vein of leg Vestibular neuritis Home Medications cholecalciferol (vitamin D3) 25 mcg (1,000 unit) tablet 1,000 unit PO BID vitamin 03/10/16 [History Last Taken 10/11/22] latanoprost 0.005 % eye drops 1 drp EACH EYE [facility] eye health 03/10/16 [History Last Taken [...] 23:02 Family History Father Myocardial infarction from [place] age 61 Heart disease Diabetes Sister Breast [...] ROS ROS ED Constitutional Constitutional ED: Denies chills, fever(s) [...] this morning. Patient stable for discharge by [place] syncope rule. She was also just admitted [...] % (Auto) 59.8 Lymph % (Auto) 21.3 Hoke % (Auto) 10.5 H Eos % (Auto) [...] your Primary Care Provider. Call [facility] ([phone]) or report to the closest Emergency Room. Call 911 if necessary. 10/14/229 <Electronically signed by Ignacio Fay DO> Cosigner Signature (if applicable): CC: JEANNIE Dale ~ Signed [facility] Work Phone: 1(742) 909-470202-19-2023 History and physical note Author Dr. Perry [facility] October 12, 2022 2:08pm Note Date/Time October 12, 2022 12:25pm [facility] Medical Records Department [address] [place] [address] H&P Exam - Hospitalist 10/12/22 1224 MR#: [id number] Acct: [id number] Name: CADY BERUMEN Rep #:[id number] : 1945 76 From: Walker villalobos MD PCP: JEANNIE Pires Status:ADM I NO Location: [facility] [id number] HPI - General General Date of [...] month when she was diagnosed with COVID. [facility] Medical History Asthma Atrial tachycardia (10/14/18) Change in bowel habit Chronic venous insufficiency Essential (primary) hypertension Glaucoma intermediate (current) use of 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 Near syncope PRAMOD (obstructive sleep apnea) Osteoarthritis Osteopenia Paroxysmal atrial fibrillation Shortness of breath Varicose vein of leg Vestibular neuritis Home Medications cholecalciferol (vitamin D3) 25 mcg (1,000 unit) tablet 1,000 unit PO BID vitamin 03/10/16 [History Last Taken 10/11/22] latanoprost 0.005 % eye drops 1 drp EACH EYE [facility] eye health 03/10/16 [History Last Taken [...] 04:11 Family History Father [place] 61 Heart disease Diabetes Sister Breast [...] % (Auto) 44.1 L, Lymph % (Auto) 27.6,Hoke % (Auto) 11.4 H, Eos % (Auto) [...] Signed: Reji House MD at 5:50 EST Reading Location ID and State: [facility] / [place] Tel , Service support , Assessment & Plan Assessment/Plan (1) Near [...] DVT: Coumadin Charges/Coding Visit Charges Inpatient E&M: 43489 Init Hosp L2 10/12/22 1408 <Electronically signed by Walker Perry MD> Cosigner Signature (if applicable): CC: JEANNIE Dale; Dr. Walker Perry MD~ Signed [facility] Work Phone: 1(894) 848-136502-19-[address] Akins [facility] October 12, 2022 7:53am Note Date/Time October 12, 2022 4:21am [facility] Medical Records Department [address] [place] [address] Emergency Department Summary 10/12/22 MR#: [id number] Acct: [id number] Name: CADY BERUMEN Rep #:[id number] : 1945 76 From: Linda Akins [...] A-fib. She denies chest or back pain. 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 Near syncope PRAMOD (obstructive sleep apnea) Osteoarthritis Osteopenia Paroxysmal atrial fibrillation Shortness of breath Varicose vein of leg Vestibular neuritis Home Medications cholecalciferol (vitamin D3) 25 mcg (1,000 unit) tablet 1,000 unit PO BID vitamin 03/10/16 [History Last Taken Unknown] latanoprost 0.005 % eye drops 1 drp EACH EYE [facility] eye health 03/10/16 [History Last Taken [...] 04:11 Family History Father [place] 61 Heart disease Diabetes Sister Breast [...] Medical decision making narrative: Patient placed on nurse monitoring on arrival. She has been in sinus [...] (Auto) 44.1 L Lymph % (Auto) 27.6 Hoke % (Auto) 11.4 H Eos % (Auto) [...] (Auto) Neut % (Auto) Lymph % (Auto) Hoke % (Auto) Eos % (Auto) Baso % [...] (Auto) Neut % (Auto) Lymph % (Auto) Hoke % (Auto) Eos % (Auto) Baso % [...] no acute ischemia. First-degree block noted with VT interval of 212.) Treatment and Re-Evaluation Narrative: [...] PA [Primary Care Provider] - Disposition Disposition: [facility] What to do if you have Problems For any increased pain, shortness of breath, bleeding, nausea or vomiting, chestpain, or any unexpected problems, contact your Primary Care Provider. Call [facility] ([phone]) or report to the closest Emergency Room. Call 911 if necessary. 10/12/22 0753 <Electronically signed by Linda Akins MD> Cosigner Signature (if applicable): CC: JEANNIE aDle ~ Signed [facility] Work Phone: 1(265) 692-403701-17-2023 Miscellaneous Notes* Telephone Encounter - Gigi Rouse [...] her cough and an inhaler. [facility] Please review and advise, Nydia Encarnacion RN documented in this encounterMary Rutan Hospital12-09-2022 Miscellaneous Notes* Telephone Encounter - Megan Rodriguez RN - 08/01/2022 4:24 PM EST Pt called and is notified of providers results and instructions. Pt voices understanding. Mailed labs to Pt, verified address. Megan Rodriguez RN documented in this encounterMary Rutan Hospital06-03-2022 Miscellaneous Notes* Telephone Encounter - Nydia Encarnacion [...] advise, Nydia Encarnacion RN documented in this encounterMary Rutan Hospital06-03-2022 Miscellaneous Notes* Telephone Encounter - Megan Rodriguez [...] you. Ramila Rosas APRN.ENOC documented in this encounterMary Rutan Hospital06-02-2022 History of Present illness Narrative* Honorio Ingram [...] 23, 2022 11:18 AM documented in this encounterMary Rutan Hospital05-31-2022 History of Present illness Narrative* Esha Ramos - 01/21/2022 3:[address] Buchanan, Cady was provided with Power step gel inserts, size 9, and instructed/educatedin its application, wear, and care. All questions were answered, and patient was able to demonstrate competence with the necessary skills to utilize the above equipment. Esha Ramos documented in this encounterMary Rutan Hospital05-17-2022 History of Present illness Narrative* Elizabeth Dale PA-C - 01/07/2022 4:37 PM EDT 76 year old female with c/o fall with rib fracture Was bringing in 's box of catheters. Was pushing heavy boxes, slipped forward and hit first right knee and then left. threw put arm to stop fall and felt a rip in left chest wall. INR was 1.4 Stopped blood thinner for four days Restarted on Thursday. 01/05/22 [facility] ED visit Pulse went down to 87 and then up to 130: Patient took extra metoprolol which she has done in the past. [place] she should be evaluated. Usually takes lopressor [...] ventricular rate 70, no injury pattern, prolonged VT interval, QRS and QTc normal. Patient was [...] FLX DX W/COLLJ SPEC WHEN PFRMD 08/23/2019 [facility] repeat is not recommended NEUROPLASTY &/TRANSPOS MEDIAN NRV CARPAL TUNNE 1990 Carpal tunnel decomp-bilateral PAST SURGICAL HISTORY OF 08-21-05 EXCISION CYST LEFT MIDDLE FINGER PAST SURGICAL HISTORY OF right foot surgery- mortons neuroma PAST SURGICAL HISTORY OF 2013 left foot vein ablation TONSILLECTOMY PRIMARY/SECONDARY AGE 12/1961 Social History Tobacco Use Smoking status: Never [...] by mouth daily except 7.[facility]mg [facility] ( [facility] (Patient taking differently: Take 7.5mg by mouth [...] needed in 6 months. documented in this encounterMary Rutan Hospital01-14-2022 History of Present illness Narrative* Zoe Bonilla [...] 06, 2021 12:23 PM documented in this encounterMary Rutan Hospital07-09-2014 History of Past illness Narrative* Problem Noted [...] of this encounter (statuses as of 01/07/2022) [facility] of Past illness Narrative* Problem Noted [...] of this encounter (statuses as of 01/21/2022) [facility] of Past illness Narrative* Problem Noted [...] of this encounter (statuses as of 01/24/2022) [facility] of Past illness Narrative* Problem Noted [...] of this encounter (statuses as of 01/24/2022) [facility] of Past illness Narrative* Problem Noted [...] of this encounter (statuses as of 08/01/2022) [facility] of Past illness Narrative* Problem Noted [...] of this encounter (statuses as of 09/09/2022) [facility] of Past illness Narrative* Problem Noted [...] of this encounter (statuses as of 10/22/2022) [address]09-[address] History of Past illness Narrative* Problem Noted [...] of this encounter (statuses as of 10/22/2022) [facility] of Past illness Narrative* Problem Noted [...] of this encounter (statuses as of 10/27/2022) [facility] of [facility] illness Narrative* Problem Noted [...] of this encounter (statuses as of 10/28/2022) [facility] of [facility] illness Narrative* Problem Noted [...] of this encounter (statuses as of 10/29/2022) [facility] of Past illness Narrative* Problem Noted [...] of this encounter (statuses as of 11/28/2022) [facility] Narrative* Problem Noted [...] of this encounter (statuses as of 12/08/2022) [facility] Narrative* Problem Noted [...] of this encounter (statuses as of 12/31/2022) [facility] Narrative* Problem Noted [...] of this encounter (statuses as of 01/22/2023) [facility] Narrative* Problem Noted [...] of this encounter (statuses as of 01/23/2023) [facility] Narrative* Problem Noted [...] of this encounter (statuses as of 02/04/2023) [facility] Narrative* Problem Noted [...] of this encounter (statuses as of 02/13/2023) [facility] Narrative* Problem Noted [...] of this encounter (statuses as of 02/18/2023) [facility] Narrative* Problem Noted [...] of this encounter (statuses as of 03/05/2023) [facility] History of Past illness Narrative* Problem Noted [...] of this encounter (statuses as of 03/10/2023) [facility] History of Past illness Narrative* Problem Noted [...] of this encounter (statuses as of 06/10/2023) [facility] of Past illness Narrative* Problem Noted [...] of this encounter (statuses as of 06/10/2023) [facility] Narrative* Problem Noted [...] of this encounter (statuses as of 06/26/2023) [facility] illness Narrative* Problem Noted [...] of this encounter (statuses as of 07/15/2023) [facility] Past [facility] Narrative* Problem Noted [...] of this encounter (statuses as of 08/06/2023) [facility] Narrative* Problem Noted [...] of this encounter (statuses as of 10/22/2023) [facility] Narrative* Problem Noted [...] of this encounter (statuses as of 11/09/2023) [facility] October 13, 2022 4:20pm Note Date/Time October 13, 2022 4:20pm [facility] Medical Records Department [address] [place] [address] Instructions for Home/Discharge Instructions 10/13/22 1618 MR#: [id number] Acct: [id number] Name: CADY BERUMEN Rep #:[id number] : 1945 76 From: Celena West [...] compliant with your metoprolol. 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 Walker Perry MD ~ Signed [facility] Work Phone: [facility]charge summary [facility] October 13, 2022 4:25pm Note Date/Time October 13, 2022 4:25pm [facility] Medical Records Department [address] [place] [address] Discharge Summary 10/13/22 1620 MR#: [id number] Acct: [id number] Name: CADY BERUMEN Rep #:[id number] : 1945 76 From: Celena West MD PCP: JEANNIE Pires Status:ADM I NO Location: [place] [address] Providers Date of Admission: 10/12/22 Date of [...] % eye drops 1 drp EACH EYE [facility] eye health 03/10/16 coenzyme Q10 50 [...] Neut % (Auto) 48.3, Lymph % (Auto) 26.1,Hoke % (Auto) 12.1 H, Eos % (Auto) [...] Perry Referring Physician: Sakina Dale Performed By: Julieta Rosales, JULIA, RVT D/C Instructions Discharge Diet: Low fat [...] compliant with your metoprolol. 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 Celena West MD~ Signed [facility] Work Phone: Evaluation noteNo assessment information available [facility] Work Phone: Evaluation note* Diagnosis Onset Date Resolution Status intermediate (current) use of 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 acute PRAMOD (obstructive sleep apnea) acute Shortness of breath acute Essential (primary) hypertension chronic Paroxysmal atrial fibrillation chronic Daytime hypersomnia acute Asthma chronic [facility] Work Phone: Evaluation note* Diagnosis Paroxysmal atrial fibrillation (HCC)- Primary Atrial fibrillation Essential hypertension, benign Closed fracture of one rib of right side with routine healing, subsequent encounter [facility] Plantar fasciitis- Primary Plantar fascial fibromatosis [facility] Diagnosis Acute pain of both knees- Primary [facility] Diagnosis Onset Date Resolution Status Essential (primary) hypertension chronic Paroxysmal atrial fibrillation chronic [facility] Work Phone: Evaluation note* Diagnosis Onset Date Resolution Status Essential (primary) hypertension chronic Paroxysmal atrial fibrillation chronic COVID acute [facility] Work Phone: evaluation note* Diagnosis Onset Date Resolution Status COVID acute Near syncope acute Palpitations acute [facility] Work Phone: evaluation note* Diagnosis Onset Date Resolution Status COVID acute Near syncope acute Palpitations acute Paroxysmal atrial fibrillation chronic [facility] Work Phone: evaluation note* Diagnosis Paroxysmal atrial tachycardia (HCC)- Primary Paroxysmal supraventricular tachycardia Paroxysmal atrial fibrillation (HCC) Atrial fibrillation documented in this encounter [facility] note* Diagnosis Paroxysmal atrial fibrillation (HCC)- Primary Atrial fibrillation Paroxysmal atrial tachycardia (HCC) Paroxysmal supraventricular tachycardia documented in this encounter [facility] note* Diagnosis Onset Date Resolution Status COVID acute Near syncope resolved Palpitations resolved Near syncope acute Essential (primary) hypertension [facility] Work Phone: evaluation note* Diagnosis Essential hypertension- Primary Unspecified essential hypertension Paroxysmal atrial fibrillation (HCC) Atrial fibrillation Paroxysmal atrial tachycardia (HCC) Paroxysmal supraventricular tachycardia Syncope and collapse Hyperlipidemia, mixed Mixed hyperlipidemia Essential hypertension, benign Mild asthma without complication, unspecified whether persistent 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 Impaired fasting glucose Severe episode of recurrent major depressive disorder, without psychotic features ([facility]) [facility]* Diagnosis Foot injury, right, initial encounter- Primary [facility]* Diagnosis Onset Date Resolution Status Near syncope resolved Palpitations resolved Near syncope acute Essential (primary) hypertension [facility] Work Phone: evaluation note* Diagnosis Toe dislocation, right, initial encounter- Primary Pain and swelling of toe, right Other acute osteomyelitis of right foot (HCC) Pain Generalized pain [facility] Diagnosis Closed fracture of phalanx of right fourth toe, initial encounter- Primary Pain and swelling of toe, right [facility]* Diagnosis Onset Date Resolution Status Near syncope acute Essential (primary) hypertension [facility] Work Phone: evaluation note* Diagnosis Onychomycosis- Primary Dermatophytosis of nail Pain in toe of left foot Pain in limb Pain in toe of right foot Pain in limb Pain and swelling of toe, right [facility] Diagnosis Paroxysmal atrial fibrillation (HCC)- Primary Atrial fibrillation [facility] Diagnosis Essential hypertension- Primary Unspecified essential [...] mixed Mixed hyperlipidemia [facility] Diagnosis Foot injury, right, initial encounter [facility]* Diagnosis Right wrist pain- Primary Pain in joint, forearm [facility]* Diagnosis Paroxysmal atrial fibrillation (HCC)- Primary Atrial fibrillation Paroxysmal atrial tachycardia (HCC) Paroxysmal supraventricular tachycardia [facility]* Diagnosis Polyuria- Primary Polydipsia [facility]* Diagnosis Onset Date Resolution Status Near syncope acute Paroxysmal atrial fibrillation acute Essential (primary) hypertension [facility] Work Phone: Evaluation note* Diagnosis Moderate episode of recurrent major depressive disorder (HCC)- Primary [facility] Diagnosis Neck pain- Primary Cervicalgia CHE (dyspnea on exertion) Other dyspnea and respiratory abnormality Near syncope Syncope and collapse Lightheadedness Dizziness and giddiness Essential hypertension Unspecified essential hypertension Paroxysmal atrial fibrillation (HCC) Atrial fibrillation Paroxysmal atrial tachycardia (HCC) Paroxysmal supraventricular tachycardia Pacemaker reprogramming/check Fitting and adjustment of cardiac pacemaker [facility]* Diagnosis Bilateral carotid artery stenosis- Primary Occlusion and stenosis of carotid artery without mention of cerebral infarction Pacemaker reprogramming/check Fitting and adjustment of cardiac pacemaker [facility]* Diagnosis Dysphagia, unspecified type- Primary Choking [...] of cardiac pacemaker [facility] Diagnosis Pre-operative examination- Primary Preoperative examination, [...] of cardiac pacemaker documented in this encounter [facility] note* Diagnosis Pre-operative examination- Primary [...] of cardiac pacemaker documented in this encounter [facility] note* Diagnosis Pre-operative examination- Primary [...] of cardiac pacemaker documented in this encounter [facility] note* Diagnosis Pre-operative examination- Primary [...] disorder (HCC)- Primary documented in this encounter [facility] note* Diagnosis Pre-operative examination- Primary [...] Unspecified essential hypertension documented in this encounter [facility] note* Diagnosis Pre-operative examination- Primary Preoperative examination, unspecified Varicose veins of right lower extremity, unspecified whether complicated Mild asthma without complication, unspecified whether persistent Atrial tachycardia (HCC) Other specified cardiac dysrhythmias 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, without psychotic features (HCC) Right wrist pain Pain in joint, forearm documented in this encounter [facility] note* Diagnosis Pre-operative examination- Primary [...] Pain Generalized pain documented in this encounter [facility] note* Diagnosis Pre-operative examination- Primary [...] Pain in limb documented in this encounter [facility] note* Diagnosis Pre-operative examination- Primary Preoperative examination, unspecified Varicose veins of right lower extremity, unspecified whether complicated Mild asthma without complication, unspecified whether persistent Atrial tachycardia (HCC) Other specified cardiac dysrhythmias 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, without psychotic features (HCC) Cough, unspecified type- Primary documented in this encounter [facility] note* Diagnosis Pre-operative examination- Primary Preoperative examination, unspecified Varicose veins of right lower extremity, unspecified whether complicated Mild asthma without complication, unspecified whether persistent Atrial tachycardia (HCC) Other specified cardiac dysrhythmias 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, without psychotic features (HCC) Acute pain of both knees documented in this encounter [facility] note* Diagnosis Pre-operative examination- Primary [...] ear Vestibular neuronitis documented in this encounter [facility] note* Diagnosis Pre-operative examination- Primary Preoperative examination, unspecified Varicose veins of right lower extremity, unspecified whether complicated Mild asthma without complication, unspecified whether persistent Atrial tachycardia (HCC) Other specified cardiac dysrhythmias 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, without psychotic features (HCC) Abnormal swallowing- Primary documented in this encounter [facility] note* Diagnosis Pre-operative examination- Primary [...] Chest pain, unspecified documented in this encounter [facility] note* Diagnosis Pre-operative examination- Primary Preoperative examination, unspecified Varicose veins of right lower extremity, unspecified whether complicated Mild asthma without complication, unspecified whether persistent Atrial tachycardia (HCC) Other specified cardiac dysrhythmias 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, without psychotic features (HCC) Fall, sequela Painful rib Chest pain, unspecified documented in this encounter [facility] note* Diagnosis Pre-operative examination- Primary [...] hematuria Acute cough documented in this encounter [facility] note* Diagnosis Pre-operative examination- Primary Preoperative examination, unspecified Varicose veins of right lower extremity, unspecified whether complicated Mild asthma without complication, unspecified whether persistent Atrial tachycardia (HCC) Other specified cardiac dysrhythmias 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, without psychotic features (HCC) Acute cough [facility]* Diagnosis Pre-operative examination- Primary Preoperative examination, [...] involving cardiovascular system documented in this encounter [facility] note* Diagnosis Pre-operative examination- Primary Preoperative examination, unspecified Varicose veins of right lower extremity, unspecified whether complicated Mild asthma without complication, unspecified whether persistent Atrial tachycardia (HCC) Other specified cardiac dysrhythmias 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, without psychotic features (HCC) Pain in both knees, unspecified chronicity- Primary documented in this encounter [facility] note* Diagnosis Pre-operative examination- Primary [...] (HCC) Atrial fibrillation documented in this encounter [facility] note* Diagnosis Pre-operative examination- Primary [...] both upper extremities documented in this encounter [facility] note* Diagnosis Pre-operative examination- Primary Preoperative examination, unspecified Varicose veins of right lower extremity, unspecified whether complicated Mild asthma without complication, unspecified whether persistent Atrial tachycardia (HCC) Other specified cardiac dysrhythmias 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, without psychotic features (HCC) Transient cerebral ischemia, unspecified type documented in this encounter [facility] note* Diagnosis Pre-operative examination- Primary [...] Shortness of breath documented in this encounter [facility] note* Diagnosis Pre-operative examination- Primary [...] Unspecified essential hypertension documented in this encounter [facility] note* Diagnosis Pre-operative examination- Primary [...] of other medications documented in this encounter [facility] note* Diagnosis Pre-operative examination- Primary [...] of cardiac pacemaker documented in this encounter [facility] note* Diagnosis Pre-operative examination- Primary [...] of cardiac pacemaker [facility] Diagnosis Pre-operative examination- Primary Preoperative examination, [...] of cardiac pacemaker documented in this encounter [facility] note* Diagnosis Pre-operative examination- Primary Preoperative examination, unspecified Varicose veins of right lower extremity, unspecified whether complicated Mild asthma without complication, unspecified whether persistent (HCC) Atrial tachycardia (HCC) Other specified cardiac dysrhythmias 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, without psychotic features (HCC) Paroxysmal atrial fibrillation (HCC)- Primary Atrial fibrillation Pacemaker reprogramming/check Fitting and adjustment of cardiac pacemaker Paroxysmal atrial fibrillation (HCC) Atrial fibrillation [facility] Diagnosis Pre-operative examination- Primary Preoperative examination, unspecified Varicose veins of right lower extremity, unspecified whether complicated Mild asthma without complication, unspecified whether persistent (HCC) Atrial tachycardia (HCC) Other specified cardiac dysrhythmias 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, without psychotic features (HCC) Paroxysmal atrial tachycardia (HCC)- Primary Paroxysmal supraventricular tachycardia Anxiety Anxiety state, unspecified Essential hypertension Unspecified essential hypertension Encounter for screening examination for other mental health and behavioral disorders History of falling Personal history of fall Pacemaker reprogramming/check Fitting and adjustment of cardiac pacemaker Paroxysmal atrial fibrillation (HCC) Atrial fibrillation documented in this encounter [facility] note* Diagnosis Pre-operative examination- Primary Preoperative examination, unspecified Varicose veins of right lower extremity, unspecified whether complicated Mild asthma without complication, unspecified whether persistent (HCC) Atrial tachycardia (HCC) Other specified cardiac dysrhythmias 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, without psychotic features (HCC) Ingrowing toenail of right foot- Primary Ingrowing nail Pacemaker reprogramming/check Fitting and adjustment of cardiac pacemaker Paroxysmal atrial fibrillation (HCC) Atrial fibrillation [facility] Diagnosis Pre-operative examination- Primary Preoperative examination, unspecified Varicose veins of right lower extremity, unspecified whether complicated Mild asthma without complication, unspecified whether persistent (HCC) Atrial tachycardia (HCC) Other specified cardiac dysrhythmias 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, without psychotic features (HCC) Onychomycosis- Primary Dermatophytosis of nail Ingrowing toenail of right foot Ingrowing nail Pacemaker reprogramming/check Fitting and adjustment of cardiac pacemaker Paroxysmal atrial fibrillation (HCC) Atrial fibrillation [facility] Diagnosis Pre-operative examination- Primary Preoperative examination, unspecified Varicose veins of right lower extremity, unspecified whether complicated Mild asthma without complication, unspecified whether persistent (HCC) Atrial tachycardia (HCC) Other specified cardiac dysrhythmias 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, without psychotic features (HCC) Infection of toenail- Primary Pacemaker reprogramming/check Fitting and adjustment of cardiac pacemaker Paroxysmal atrial fibrillation (HCC) Atrial fibrillation [facility] Thank you for trusting [...] care physician for further outpatient evaluation and management.[facility] Work Phone: Hospital Discharge instructionsAdditional Instructions Continue your medications as previously prescribed.[facility] Work Phone: Reason for referral (narrative)* Outpatient Procedure (Routine) - Authorized Specialty Diagnoses / Procedures Referred By Feng t Referred To Contact [facility] Diagnoses Paroxysmal atrial tachycardia (HCC) Paroxysmal atrial fibrillation (HCC) Procedures ECG COMPLETE ECG ROUTINE ECG W/LEAST 12 LDS W/I&R Mynor Shirley MD [address] [place] [address] [address] Referral ID Status Reason Start Date Expiration Date Visits Requested Visits Authorized [id number] Authorized Auto-Generat ed Referral 10/21/2022 10/21/2023 1 1 [facility] for referral (narrative)* Outpatient Procedure (Routine) - Authorized Specialty Diagnoses / Procedures Referred By Contac t Referred To Contact [facility] Diagnoses Paroxysmal atrial fibrillation (HCC) Paroxysmal atrial tachycardia (HCC) Procedures ECG COMPLETE ECG ROUTINE ECG W/LEAST 12 LDS W/I&R Mynor Shirley MD [address] [place] [address] [address] Referral ID Status Reason Start Date Expiration Date Visits Requested Visits Authorized [id number] Authorized Auto-Generat ed Referral 10/28/2022 10/28/2023 1 1 [facility] for referral (narrative)* Diagnostic Procedure Only (Routine) - Closed Specialty Diagnoses / Procedures Referred By Contac t Referred To Contact XR IMAGING Diagnoses Foot injury, right, initial encounter Procedures XR FOOT GENERAL 3V AP/LAT/OBL RIGHT RADEX FOOT COMPLETE MINIMUM 3 VIEWS Elizabeth Dale PA-C [address] [place] [address] Xr Imaging Referral ID Status Reason Start Date Expiration Date V isits Requested Visits Authorized [id number] Closed Auto-Generate d Referral 12/30/2022 01/29/2024 1 1 [facility] for referral (narrative)* Diagnostic Procedure Only (Routine) - Closed Specialty Diagnoses / Procedures Referred By Contac t Referred To Contact XR IMAGING Diagnoses Pain Procedures XR FOOT GENERAL 3V AP/LAT/OBL RIGHT RADEX FOOT COMPLETE MINIMUM 3 VIEWS Terri Gomez DPM [address] [place] [address] Xr Imaging Referral ID Status Reason Start Date Expiration Date V isits Requested Visits Authorized [id number] Closed Auto-Generate d Referral 01/21/2023 02/20/2024 1 1 * MRI/CT (Urgent) - Pending Review Specialty Diagnoses / Procedures Referred By Contac t Referred To Contact MR IMAGING Diagnoses Pain and swelling of toe, right Other acute osteomyelitis of right foot (HCC) Procedures MRI FOOT/TOES WO IVCON RIGHT MRI LOWER EXTREM OTH/THN JT W/O CONTR MATRL Terri Gomez DPM [address] [place] [address] Mr Imaging Referral ID Status Reason Start Date Expiration Date Visits Requested Visits Authorized [id number] Pending Review Auto-Generat ed Referral 01/21/2023 02/20/2024 1 1 * Diagnostic Procedure Only (Routine) - Closed Specialty Diagnoses / Procedures Referred By Contac t Referred To Contact XR IMAGING Diagnoses Pain and swelling of toe, right Procedures XR FOOT GENERAL 3V AP/LAT/OBL RIGHT RADEX FOOT COMPLETE MINIMUM 3 VIEWS Terri Gomez DPM [address] [place] [address] Xr Imaging Referral ID Status Reason Start Date Expiration Date V isits Requested Visits Authorized [id number] Closed Auto-Generate d Referral 01/21/2023 02/20/2024 1 1 [facility] for referral (narrative)* Diagnostic Procedure Only (Routine) - Closed Specialty Diagnoses / Procedures Referred By Contac t Referred To Contact XR IMAGING Diagnoses Foot injury, right, initial encounter Procedures XR FOOT GENERAL 3V AP/LAT/OBL RIGHT RADEX FOOT COMPLETE MINIMUM 3 VIEWS Elizabeth Dale PA-C [address] [place] [address] [place] [address] Referral ID Status Reason Start Date Expiration Date V isits Requested Visits Authorized [id number] Closed Auto-Generate d Referral 12/30/2022 01/29/2024 1 1 [facility] for referral (narrative)* Outpatient Procedure (Routine) - Authorized Specialty Diagnoses / Procedures Referred By Contac t Referred To Contact [facility] [place] Diagnoses Paroxysmal atrial fibrillation (HCC) Paroxysmal atrial tachycardia (HCC) Procedures ECG COMPLETE ECG ROUTINE ECG W/LEAST 12 LDS W/I&R Mynor Shirley MD [address] [place] [address] [facility] [address] [address] Referral ID Status Reason Start Date Expiration Date Visits Requested Visits Authorized [id number] Authorized Auto-Generat ed Referral 10/21/2023 10/20/2024 1 1 [facility] for referral (narrative)* Outpatient Procedure (Routine) - Authorized Specialty Diagnoses / Procedures Referred By Contac t Referred To Contact [facility] [place] Diagnoses CHE (dyspnea on exertion) Near syncope Lightheadedness Procedures ECHO ECHO TTHRC R-T 2D W/WOM-MODE COMPL SPEC&COLR D Nirali Almanza PA-C [address] [place] [address] [address] Referral ID Status Reason Start Date Expiration Date Visits Requested Visits Authorized [id number] Authorized Auto-Generat ed Referral 02/10/2024 02/09/2025 1 1 * Outpatient Procedure (Routine) - Authorized Specialty Diagnoses / Procedures Referred By Contac t Referred [facility] Diagnoses Near syncope Lightheadedness Procedures US CAROTID ARTERIES CHRISTOPHER VAS [facility] DUPLEX SCAN EXTRACRANIAL ART COMPL BI STUDY Nirali Almanza PA-C [address] [place] [address] [facility] [place] [address] [place] [id number] Referral ID Status Reason Start Date Expiration Date Visits Requested Visits Authorized [id number] Authorized Auto-Generat ed Referral 02/10/2024 02/09/2025 1 1 * Physical Therapy/Occupational Therapy/Speech Therapy (Routine) - Authorized Specialty Diagnoses / Procedures Referred By Leenaac t Referred To Contact [facility] Diagnoses Neck pain Procedures CONSULT TO PHYSICAL THERAPY PHYSICAL THERAPY EVALUATION HIGH COMPLEX 45 MINS Nirali Almanza PA-C [address] [place] [address] [facility] [address] [address] Referral ID Status Reason Start Date Expiration Date Visits Requested Visits Authorized [id number] Authorized Auto-Generat ed Referral 08/24/2023 08/23/2024 75 75 * Consult, Test, Treat (Routine) - Authorized Specialty Diagnoses / Procedures Referred By Contac t Referred To Contact Cardiology Diagnoses Essential hypertension Paroxysmal atrial fibrillation (HCC) Procedures CONSULT TO CARDIOLOGY OFFICE/OUTPATIENT NEW HIGH MDM 60 MINUTES Nirali Almanza PA-C [address] [place] [address] Referral ID Status Reason Start Date Expiration Date Visits Requested Visits Authorized [id number] Authorized PCP Requested Referral 02/10/2024 02/09/2025 1 1 [facility] for referral (narrative)* Diagnostic Procedure Only (Routine) - New Request Specialty Diagnoses / Procedures Referred By Feng t Referred To Contact XR IMAGING Diagnoses Dysphagia, unspecified type Choking episode Procedures XR ESOPHAGRAM RADIOLOGIC EXAM ESOPHAGUS SINGLE CONTRAST STUDY Moon Teixeira MD [address] [place] [address] [place] [address] Referral ID Status Reason Start Date Expiration Date Visits Requested Visits Authorized [id number] New Request Auto-Generat ed Referral 04/05/2024 05/05/2025 1 1 [facility] for referral (narrative)* Diagnostic Procedure Only (Routine) - New Request Specialty Diagnoses / Procedures Referred By Feng cash Referred To Contact XR IMAGING Diagnoses Rib pain Muscle spasm Procedures XR RIBS 2V AP/OBL LEFT RADEX RIBS UNILATERAL 2 VIEWS Moon Teixeira MD [address] [place] [address] [place] [address] Referral ID Status Reason Start Date Expiration Date Visits Requested Visits Authorized [id number] New Request Auto-Generat ed Referral 04/22/2024 05/22/2025 1 1 [facility] for referral (narrative)* Diagnostic Procedure Only (Routine) - Closed Specialty Diagnoses / Procedures Referred By Feng cash Referred To Contact XR IMAGING Diagnoses Rib pain Muscle spasm Procedures XR RIBS 2V AP/OBL LEFT RADEX RIBS UNILATERAL 2 VIEWS Moon Teixeira MD [facility] [place] [address] [place] [address] Referral ID Status Reason Start Date Expiration Date V isits Requested Visits Authorized [id number] Closed Auto-Generate d Referral 04/22/2024 05/22/2025 1 1 [facility] for referral (narrative)* Outpatient Procedure (Routine) - Authorized Specialty Diagnoses / Procedures Referred By Feng cash Referred To [facility] Diagnoses Moderate episode of recurrent major depressive disorder (HCC) Procedures ECG COMPLETE ECG ROUTINE ECG W/LEAST 12 LDS W/I&R Gucci Emery LISW [address] [place] [address] [facility] [place] [address] [facility] [place] [address] Referral ID Status Reason Start Date Expiration Date Visits Requested Visits Authorized [id number] Authorized Auto-Generat ed Referral 05/03/2024 05/03/2025 1 1 [facility] for referral (narrative)* Diagnostic Procedure Only (Routine) - Closed Specialty Diagnoses / Procedures Referred By Contac t Referred To Contact XR IMAGING Diagnoses Right wrist pain Procedures XR WRIST GENERAL 3V PA/LAT/OBL RIGHT RADEX WRIST COMPLETE MINIMUM 3 VIEWS Patrizia Willis APRN.CNP [address] [place] [address] [place] [address] Referral ID Status Reason Start Date Expiration Date V isits Requested Visits Authorized [id number] Closed Auto-Generate d Referral 07/15/2023 08/13/2024 1 1 [facility] for referral (narrative)* Diagnostic Procedure Only (Routine) - Closed Specialty Diagnoses / Procedures Referred By Contac t Referred To Contact XR IMAGING Diagnoses Pain Procedures XR FOOT GENERAL 3V AP/LAT/OBL RIGHT RADEX FOOT COMPLETE MINIMUM 3 VIEWS Terri Gomez DPM [address] [place] [address] [place] [address] Referral ID Status Reason Start Date Expiration Date V isits Requested Visits Authorized [id number] Closed Auto-Generate d Referral 01/21/2023 02/20/2024 1 1 * Diagnostic Procedure Only (Routine) - Closed Specialty Diagnoses / Procedures Referred By Contac t Referred To Contact XR IMAGING Diagnoses Pain and swelling of toe, right Procedures XR FOOT GENERAL 3V AP/LAT/OBL RIGHT RADEX FOOT COMPLETE MINIMUM 3 VIEWS Terri Gomez DPM [address] [place] [address] [place] [address] Referral ID Status Reason Start Date Expiration Date V isits Requested Visits Authorized [id number] Closed Auto-Generate d Referral 01/21/2023 02/20/2024 1 1 [facility] for referral (narrative)* Diagnostic Procedure Only (Routine) - Closed Specialty Diagnoses / Procedures Referred By Contac t Referred To Contact XR IMAGING Diagnoses Pain in toe of right foot Procedures XR FOOT GENERAL 3V AP/LAT/OBL RIGHT RADEX FOOT COMPLETE MINIMUM 3 VIEWS Terri Gomez DPM [address] [place] [id number] [place] [address] Referral ID Status Reason Start Date Expiration Date V isits Requested Visits Authorized [id number] Closed Auto-Generate d Referral 02/03/2023 03/04/2024 1 1 [facility] for referral (narrative)* Diagnostic Procedure Only (Routine) - Closed Specialty Diagnoses / Procedures Referred By Contac t Referred To Contact XR IMAGING Diagnoses Acute pain of both knees Procedures XR KNEE GENERAL 4V AP BOTH/PA BOTH/LAT/MERC BILATERAL RADIOLOGIC EXAM KNEE COMPLETE 4/MORE VIEWS Ramila Rosas, EARLY CHILDHOOD [address] [place] [address] [place] [address] Referral ID Status Reason Start Date Expiration Date V isits Requested Visits Authorized [id number] Closed Auto-Generate d Referral 01/23/2022 02/22/2023 1 1 [facility] for referral (narrative)* Diagnostic Procedure Only (Routine) - Closed Specialty Diagnoses / Procedures Referred By Contac t Referred To Contact XR IMAGING Diagnoses Unstable knee, right Vestibular neuronitis of right ear Procedures XR KNEE GENERAL 4V AP BOTH/PA BOTH/LAT/MERC RIGHT KNEE AP-WGT/LAT/STEPHANYT Elizabeth Dale PA-C [address] [place] [address] [place] [address] Referral ID Status Reason Start Date Expiration Date V isits Requested Visits Authorized [id number] Closed Auto-Generate d Referral 09/06/2021 10/06/2022 1 1 [facility] for referral (narrative)* Diagnostic Procedure Only (Routine) - Closed Specialty Diagnoses / Procedures Referred By Contac t Referred To Contact XR IMAGING Diagnoses Fall, sequela Painful rib Procedures XR RIBS 2V AP/OBL LEFT RADEX RIBS UNILATERAL 2 VIEWS Moon Teixeira MD [address] [place] [address] [place] [address] Referral ID Status Reason Start Date Expiration Date V isits Requested Visits Authorized [id number] Closed Auto-Generate d Referral 06/27/2024 07/27/2025 1 1 [facility] for referral (narrative)* Outpatient Procedure (Routine) - Authorized Specialty Diagnoses / Procedures Referred By Feng cash Referred To Contact [facility] Diagnoses Onychomycosis Diminished pulses in lower extremity Procedures PVR ANK PRESS CHRISTOPHER VAS LAB NON-INVAS PHYSIOLOGIC STD EXTREMITY ART 2 LEVEL Daquan Buchanan [address] [address] [facility] [place] [address] [place] [address] Referral ID Status Reason Start Date Expiration Date Visits Requested Visits Authorized [id number] Authorized Auto-Generat ed Referral 07/28/2024 07/28/2025 1 1 [facility] for referral (narrative)No reason for referral [facility] Reason for visit Narrative* Diagnostic Procedure Only (Routine) - Closed Specialty Diagnoses / Procedures Referred By Contac t Referred To Contact XR IMAGING Diagnoses Foot injury, right, initial encounter Procedures XR FOOT GENERAL 3V AP/LAT/OBL RIGHT RADEX FOOT COMPLETE MINIMUM 3 VIEWS Elizabeth Dale PA-C [address] [place] [address] [place] [address] Referral ID Status Reason Start Date Expiration Date V isits Requested Visits Authorized [id number] Closed Auto-Generate d Referral 12/30/2022 01/29/2024 1 1 [facility] for visit Narrative* Diagnostic Procedure Only (Routine) - Closed Specialty Diagnoses / Procedures Referred By Contac t Referred To Contact XR IMAGING Diagnoses Rib pain Muscle spasm Procedures XR RIBS 2V AP/OBL LEFT RADEX RIBS UNILATERAL 2 VIEWS Moon Teixeira MD [address] [place] [address] [place] [address] Referral ID Status Reason Start Date Expiration Date V isits Requested Visits Authorized [id number] Closed Auto-Generate d Referral 04/22/2024 05/22/2025 1 1 [facility] for visit Narrative* Diagnostic Procedure Only (Routine) - Closed Specialty Diagnoses / Procedures Referred By Contac t Referred To Contact XR IMAGING Diagnoses Right wrist pain Procedures XR WRIST GENERAL 3V PA/LAT/OBL RIGHT RADEX WRIST COMPLETE MINIMUM 3 VIEWS Patrizia Willis APRN.CNP [address] [place] [address] [place] [address] Referral ID Status Reason Start Date Expiration Date V isits Requested Visits Authorized [id number] Closed Auto-Generate d Referral 07/15/2023 08/13/2024 1 1 [facility] for visit Narrative* Diagnostic Procedure Only (Routine) - Closed Specialty Diagnoses / Procedures Referred By Contac t Referred To Contact XR IMAGING Diagnoses Pain and swelling of toe, right Procedures XR FOOT GENERAL 3V AP/LAT/OBL RIGHT RADEX FOOT COMPLETE MINIMUM 3 VIEWS Hild, Terri, DPM [address] [place] [address] [place] [address] Referral ID Status Reason Start Date Expiration Date V isits Requested Visits Authorized [id number] Closed Auto-Generate d Referral 01/21/2023 02/20/2024 1 1 [facility] for visit Narrative* Diagnostic Procedure Only (Routine) - Closed Specialty Diagnoses / Procedures Referred By Contac t Referred To Contact XR IMAGING Diagnoses Pain in toe of right foot Procedures XR FOOT GENERAL 3V AP/LAT/OBL RIGHT RADEX FOOT COMPLETE MINIMUM 3 VIEWS Hild, Terri, DPM [address] [place] [address] [place] [address] Referral ID Status Reason Start Date Expiration Date V isits Requested Visits Authorized [id number] Closed Auto-Generate d Referral 02/03/2023 03/04/2024 1 1 [facility] for visit Narrative* Diagnostic Procedure Only (Routine) - Closed Specialty Diagnoses / Procedures Referred By Contac t Referred To Contact XR IMAGING Diagnoses Acute pain of both knees Procedures XR KNEE GENERAL 4V AP BOTH/PA BOTH/LAT/MERC BILATERAL RADIOLOGIC EXAM KNEE COMPLETE 4/MORE VIEWS Ramila Rosas, [employer].EARLY CHILDHOOD [address] [place] [address] [place] [address] Referral ID Status Reason Start Date Expiration Date V isits Requested Visits Authorized [id number] Closed Auto-Generate d Referral 01/23/2022 02/22/2023 1 1 [facility] for visit Narrative* Diagnostic Procedure Only (Routine) - Closed Specialty Diagnoses / Procedures Referred By Contac t Referred To Contact XR IMAGING Diagnoses Unstable knee, right Vestibular neuronitis of right ear Procedures XR KNEE GENERAL 4V AP BOTH/PA BOTH/LAT/MERC RIGHT KNEE AP-WGT/LAT/MERCHANT Elizabeth Dale, PAMorganC [address] [place] [address] [place] [address] Referral ID Status Reason Start Date Expiration Date V isits Requested Visits Authorized [id number] Closed Auto-Generate d Referral 09/06/2021 10/06/2022 1 1 [facility] for visit Narrative* Diagnostic Procedure Only (Routine) - Closed Specialty Diagnoses / Procedures Referred By Contac t Referred To Contact XR IMAGING Diagnoses Fall, sequela Painful rib Procedures XR RIBS 2V AP/OBL LEFT RADEX RIBS UNILATERAL 2 VIEWS Moon Teixeira MD [address] [place] [address] [place] [address] Referral ID Status Reason Start Date Expiration Date V isits Requested Visits Authorized [id number] Closed Auto-Generate d Referral 06/27/2024 07/27/2025 1 [facility] (Routine) - Closed Specialty Diagnoses / Procedures Referred By Feng cash Referred To Contact MR IMAGING Diagnoses Transient cerebral ischemia, unspecified type Procedures MRI BRAIN WO IVCON MRI BRAIN BRAIN STEM W/O CONTRAST MATERIAL Moon Teixeira MD [address] [place] [address] Phone: tel: fax: [place] [address] Referral ID Status Reason Start Date Expiration Date V isits Requested Visits Authorized [id number] Closed Auto-Generate d Referral 11/02/2024 12/01/2024 1 1 [facility] Summary Purpose Family History No Family History Records Found Relationship Condition Age at Onset Recorded Date/T georgina father Myocardial infarction Unknown Cardiac disease Unknown Diabetes mellitus Unknown sister Malignant neoplasm of breast Unknown Relationship Condition Age at Onset Recorded Date/T georgina Not Specified intermediate current us e of anticoagulant therapy Unknown father Myocardial infarction Unknown Cardiac disease Unknown Diabetes mellitus Unknown sister Malignant neoplasm of breast Unknown Advance Directives No Advanced Directives Records Found Advance Directive Response Recorded Date/ Time Living Will No August 03 9:39am Power of Superintendent Mechanical No August 03, 2020 9:39am Advance Directive Response Recorded Date/ Time Living Will No January 05, 2022 5 :40am Power of Superintendent Mechanical No January 05, 2022 5:40am Documents on File Type Date Recorded 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 Advance Directive(s) 06/05/2020 4:06 PM Advance Directive(s) 05/05/2018 11:13 AM Documents on File Type Date Recorded 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 Advance Directive(s) 06/05/2020 4:06 PM Advance Directive(s) 05/05/2018 11:13 AM Advance Directive Response Recorded Date/ Time Living Will No January 05, 2022 4 :40am Power of Superintendent Mechanical No January 05, 2022 4:40am Advance Directive Response Recorded Date/ Time Living Will No September 08 11:45am Power of Superintendent Mechanical No September 08, 2022 11:45am Advance Directive Response Recorded Date/ Time Living Will No October 12, 2 023 4:11am Power of Superintendent Mechanical No October 12, 2022 4:11am Advance Directive Response Recorded Date/ Time Living Will No October 12, 2 023 1:20pm Power of Superintendent Mechanical No October 12, 2022 1:20pm Advance Directive Response Recorded Date/ Time Living Will No October 13, 2 023 10:59pm Power of Superintendent Mechanical No October 13, 2022 10:59pm Advance Directive Response Recorded Date/ Time Living Will No October 13, 2 023 11:59pm Power of Superintendent Mechanical No October 13, 2022 11:59pm Advance Directive Response Recorded Date/ Time Name of Medical Power of Superintendent Mechanical spruce pine August 09, 2023 3:54pm Living Will Yes August 09, 2 023 3:54pm Power of Superintendent Mechanical Yes August 09, 2023 3:54pm Advance Directive Response Recorded Date/ Time Name of Medical Power of Superintendent Mechanical spruce pine August 09, 2023 4:54pm Living Will Yes August 09, 2 023 4:54pm Power of Superintendent Mechanical Yes August 09, 2023 4:54pm Advance Directive Response Recorded Date/ Time Living Will Yes August 09, 023 4:54pm Power of Superintendent Mechanical Yes August 09, 2023 4:54pm Advance Directive Response Recorded Date/ Time Living Will Yes April 05 1:12am Do you have a Healthcare Power of Superintendent Mechanical? Yes April 05, 2024 1:12am Living Will Yes August 24 4:45am Do you have a Healthcare Power of Superintendent Mechanical? Yes August 24, 2024 4:45am Living Will Yes September 23 10:04pm Do you have a Healthcare Power of Superintendent Mechanical? Yes September 23, 2024 10:04pm Living Will Yes September 26 12:45pm Do you have a Healthcare Power of Superintendent Mechanical? Yes September 26, 2024 12:45pm Name of Medical Power of Superintendent Mechanical DAUGHTER September 26, 2024 12:45pm Advance Directive Response Recorded Date/ Time Living Will Yes August 24 4:45am Do you have a Healthcare Power of Superintendent Mechanical? Yes August 24, 2024 4:45am Living Will Yes September 23 10:04pm Do you have a Healthcare Power of Superintendent Mechanical? Yes September 23, 2024 10:04pm Living Will Yes September 26 12:45pm Do you have a Healthcare Power of Superintendent Mechanical? Yes September 26, 2024 12:45pm Name of Medical Power of Superintendent Mechanical DAUGHTER September 26, 2024 12:45pm Advance Directive Response Recorded Date/ Time Living Will Yes August 24 4:45am Do you have a Healthcare Power of Superintendent Mechanical? Yes August 24, 2024 4:45am Living Will Yes September 23 10:04pm Do you have a Healthcare Power of Superintendent Mechanical? Yes September 23, 2024 10:04pm Living Will No November 28, 2024 2:30pm Do you have a Healthcare Power of Superintendent Mechanical? No November 28, 2024 2:30pm Living Will Yes September 26 12:45pm Do you have a Healthcare Power of Superintendent Mechanical? Yes September 26, 2024 12:45pm Name of Medical Power of Superintendent Mechanical DAUGHTER September 26, 2024 12:45pm Advance Directive Response Recorded Date/ Time Living Will Yes September 23 10:04pm Do you have a Healthcare Power of Superintendent Mechanical? Yes September 23, 2024 10:04pm Living Will No November 28, 2024 2:30pm Do you have a Healthcare Power of Superintendent Mechanical? No November 28, 2024 2:30pm Living Will Yes September 26 12:45pm Do you have a Healthcare Power of Superintendent Mechanical? Yes September 26, 2024 12:45pm Name of Medical Power of Superintendent Mechanical DAUGHTER September 26, 2024 12:45pm Living Will Yes November 21, 2024 9:42pm Do you have a Healthcare Power of Superintendent Mechanical? Yes November 21, 2024 9:42pm Advance Directive Response Recorded Date/ Time Living Will Yes September 23 10:04pm Do you have a Healthcare Power of Superintendent Mechanical? Yes September 23, 2024 10:04pm Living Will No November 28, 2024 2:30pm Do you have a Healthcare Power of Superintendent Mechanical? No November 28, 2024 2:30pm Living Will Yes November 21, 2024 9:42pm Do you have a Healthcare Power of Superintendent Mechanical? Yes November 21, 2024 9:42pm Living Will Yes January 21, 2025 8 :33pm Do you have a Healthcare Power of Superintendent Mechanical? Yes January 21, 2025 8:33pm Do you have a Healthcare Power of Superintendent Mechanical? No March 15, 2025 3:54pm Advance Directive Response Recorded Date/ Time Living Will No November 28, 2024 2:30pm Do you have a Healthcare Power of Superintendent Mechanical? No November 28, 2024 2:30pm Living Will Yes November 21, 2024 9:42pm Do you have a Healthcare Power of Superintendent Mechanical? Yes November 21, 2024 9:42pm Living Will Yes January 21, 2025 8 :33pm Do you have a Healthcare Power of Superintendent Mechanical? Yes January 21, 2025 8:33pm Do you have a Healthcare Power of Superintendent Mechanical? No March 15, 2025 3:54pm Advance Directive Response Recorded Date/ Time Living Will Yes November 21, 2024 9:42pm Do you have a Healthcare Power of Superintendent Mechanical? Yes November 21, 2024 9:42pm Living Will Yes January 21, 2025 8 :33pm Do you have a Healthcare Power of Superintendent Mechanical? Yes January 21, 2025 8:33pm Do you have a Healthcare Power of Superintendent Mechanical? No March 15, 2025 3:54pm Advance Directive Response Recorded Date/ Time Living Will Yes January 21, 2025 8 :33pm Do you have a Healthcare Power of Superintendent Mechanical? Yes January 21, 2025 8:33pm Do you have a Healthcare Power of Superintendent Mechanical? No March 15, 2025 3:54pm Do you have a Healthcare Power of Superintendent Mechanical? 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 PRAMOD (obstructive sleep apnea) Shortness of breath Essential (primary) hypertension Paroxysmal atrial fibrillation Daytime hypersomnia Asthma Chief Complaint E ORDERS R KNEE.VESTIBULAR NEURONITIS (ONLY WANTS BARRON) E ORDERS 9 MO F/U (NN PT) E ORDERS Obstructive sleep apnea DYSPNEA DYSPNEA E ORDERS palpitations Reason for Visit intermediate (current) use of 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 PRAMOD (obstructive sleep apnea) Shortness of breath Essential (primary) hypertension Paroxysmal atrial fibrillation Daytime hypersomnia Asthma Chief Complaint E ORDERS 9 MO F/U (NN PT) E ORDERS Obstructive sleep apnea DYSPNEA DYSPNEA E ORDERS palpitations E ORDERS E ORDERS Reason for Visit intermediate (current) use of 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 PRAMOD (obstructive sleep apnea) Shortness of breath Essential (primary) hypertension Paroxysmal atrial fibrillation Daytime hypersomnia Asthma Chief Complaint 9 MO F/U (NN PT) E ORDERS Obstructive sleep apnea DYSPNEA DYSPNEA E ORDERS palpitations E ORDERS E ORDERS Reason for Visit intermediate (current) use of 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 PRAMOD (obstructive sleep [...] 1:5 4pm Reason for Visit 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 October 13, 2024 11:26am Paroxysmal atrial fibrillation October 13, 2024 11:26am Shortness of breath October 13, 2024 11:26am Essential (primary) hypertension Februar 2024 11:26am Chief Complaint Admit Date E [...] LOW BP March 15, 2025 2:38 pm Chief Complaint Admit Date sob November 28, 2024 2:24 pm E ORDERS January 05, 2025 3:13p m E ORDERS March 08, 2025 9:58 am LOW BP March 15, 2025 2:38 pm Chief Complaint Admit Date sob November 28, 2024 2:24 pm E ORDERS January 05, 2025 3:13p m E ORDERS March 08, 2025 9:58 am LOW BP March 15, 2025 2:38 pm 6 M FU March 28, 2025 11: 04am Chief Complaint Admit Date E ORDERS January 05, 2025 3:13p m E ORDERS March 08, 2025 9:58 am LOW BP March 15, 2025 2:38 pm 6 M FU March 28, 2025 11: 04am E ORDERS April 20, 2025 1: 30pm Reason for Visit 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 March 28, 2025 11:04am Paroxysmal atrial fibrillation March 11:04am Essential (primary) hypertension March 28, 2025 11:04am Chief Complaint Admit Date E ORDERS March 08, 2025 9:58 am LOW BP March 15, 2025 2:38 pm 6 M FU March 28, 2025 11: 04am E ORDERS April 20, 2025 1: 30pm E ORDERS April 28, 2025 3:51pm palpitations May 18, 2025 12:26pm [facility] May 22, 2025 11:00am Reason for Referral Specialty Diagnoses / Procedures Referred By Contac t Referred To Contact Orthopedics Diagnoses Acute pain of both knees Procedures CONSULT TO ORTHOPAEDICS OFFICE/OUTPATIENT [facility] MDM 60-74 MINUTES Ramila Rosas [employer] [address] [place] [address] Referral ID Status Reason Start Date Expiration Date Visits Requested Visits Authorized [id number] Pending Review PCP Requested Referral 01/24/2022 01/24/2023 1 1 Specialty Diagnoses / Procedures Referred By Contac t Referred To Contact Diagnoses Right wrist pain Patrizia Willis, [employer] [address] [place] [address] Referral ID Status Reason Start Date Expiration Date Visits Re quested Visits Authorized [id number] Closed 1 1 Specialty Diagnoses / Procedures Referred By Contac t Referred To Contact XR IMAGING Diagnoses Right wrist pain Procedures XR WRIST GENERAL 3V PA/LAT/OBL RIGHT RADEX WRIST COMPLETE MINIMUM 3 VIEWS Patrizia Willis [employer] [address] [place] [address] [place] [id number] Referral ID Status Reason Start Date Expiration Date V isits Requested Visits Authorized [id number] Closed Auto-Generate d Referral 07/15/2023 08/13/2024 1 1 Specialty Diagnoses / Procedures Referred By Contac t Referred To Contact Gastroenterology Diagnoses Abnormal swallowing Procedures CONSULT TO GASTROENTEROLOGY OFFICE/OUTPATIENT [facility] MDM 60 MINUTES Moon Teixeira MD [address] [place] [address] Referral ID Status Reason Start Date Expiration Date Visits Requested Visits Authorized [id number] Authorized PCP Requested Referral 06/16/2025 1 1 Specialty Diagnoses / Procedures Referred By Contac t Referred To Contact [facility] Diagnoses Pain in both knees, unspecified chronicity Procedures CONSULT TO PHYSICAL THERAPY PHYSICAL THERAPY EVALUATION [facility] COMPLEX 45 MINS José Miguel Saldaña [employer] [address] [place] [address] [facility] [place] [address] [place] [address] Referral ID Status Reason Start Date Expiration Date Visits Requested Visits Authorized [id number] Pending Review Auto-Generat ed Referral 09/16/2024 09/15/2025 1 1 Additional Source Comments INFORMATION SOURCE (unrecogn ized section and content) DATE CREATED AUTHOR 04/26/2020 [facility] DATE CREATED AUTHOR AUTHOR'S ORGANIZ ATION 02/05/2023 [facility] DATE CREATED AUTHOR AUTHOR'S ORGANIZ ATION 01/14/2024 [facility] DATE CREATED AUTHOR AUTHOR'S ORGANIZ ATION 06/27/2025 [facility] DATE CREATED AUTHOR AUTHOR'S ORGANIZ ATION 07/06/2025 [facility] Goals (unrecognized section and content) Goals [...] or prosecute any alcohol or drug abuse patient.[facility] HospitalIn the event this information is protected by the Federal Confidentiality of Alcohol and Drug Abuse Patient Records regulations: The Federal rules restrict any use of the information to criminally investigate or prosecute any alcohol or drug abuse patient.[facility] HospitalIn the event this information is protected by the Federal Confidentiality of Alcohol and Drug Abuse Patient Records regulations: The Federal rules restrict any use of the information to criminally investigate or prosecute any alcohol or drug abuse patient.[facility] HospitalIn the event this information is protected by the Federal Confidentiality of Alcohol and Drug Abuse Patient Records regulations: The Federal rules restrict any use of the information to criminally investigate or prosecute any alcohol or drug abuse patient.[facility] HospitalIn the event this information is protected by the Federal Confidentiality of Alcohol and Drug Abuse Patient Records regulations: The Federal rules restrict any use of the information to criminally investigate or prosecute any alcohol or drug abuse patient.[facility] HospitalIn the event this information is protected by the Federal Confidentiality of Alcohol and Drug Abuse Patient Records regulations: The Federal rules restrict any use of the information to criminally investigate or prosecute any alcohol or drug abuse patient.[facility] HospitalIn the event this information is protected by the Federal Confidentiality of Alcohol and Drug Abuse Patient Records regulations: The Federal rules restrict any use of the information to criminally investigate or prosecute any alcohol or drug abuse patient.[facility] HospitalIn the event this information is protected by the Federal Confidentiality of Alcohol and Drug Abuse Patient Records regulations: The Federal rules restrict any use of the information to criminally investigate or prosecute any alcohol or drug abuse patient.[facility] HospitalIn the event this information is protected by the Federal Confidentiality of Alcohol and Drug Abuse Patient Records regulations: The Federal rules restrict any use of the information to criminally investigate or prosecute any alcohol or drug abuse patient.[facility] HospitalIn the event this information is protected by the Federal Confidentiality of Alcohol and Drug Abuse Patient Records regulations: The Federal rules restrict any use of the information to criminally investigate or prosecute any alcohol or drug abuse patient.[facility] HospitalIn the event this information is protected by the Federal Confidentiality of Alcohol and Drug Abuse Patient Records regulations: The Federal rules restrict any use of the information to criminally investigate or prosecute any alcohol or drug abuse patient.[facility] HospitalIn the event this information is protected by the Federal Confidentiality of Alcohol and Drug Abuse Patient Records regulations: The Federal rules restrict any use of the information to criminally investigate or prosecute any alcohol or drug abuse patient.[facility] HospitalIn the event this information is protected by the Federal Confidentiality of Alcohol and Drug Abuse Patient Records regulations: The Federal rules restrict any use of the information to criminally investigate or prosecute any alcohol or drug abuse patient.[facility] HospitalIn the event this information is protected by the Federal Confidentiality of Alcohol and Drug Abuse Patient Records regulations: The Federal rules restrict any use of the information to criminally investigate or prosecute any alcohol or drug abuse patient.[facility] HospitalIn the event this information is protected by the Federal Confidentiality of Alcohol and Drug Abuse Patient Records regulations: The Federal rules restrict any use of the information to criminally investigate or prosecute any alcohol or drug abuse patient.[facility] HospitalIn the event this information is protected by the Federal Confidentiality of Alcohol and Drug Abuse Patient Records regulations: The Federal rules restrict any use of the information to criminally investigate or prosecute any alcohol or drug abuse patient.[facility] HospitalIn the event this information is protected by the Federal Confidentiality of Alcohol and Drug Abuse Patient Records regulations: The Federal rules restrict any use of the information to criminally investigate or prosecute any alcohol or drug abuse patient.[facility] HospitalIn the event this information is protected by the Federal Confidentiality of Alcohol and Drug Abuse Patient Records regulations: The Federal rules restrict any use of the information to criminally investigate or prosecute any alcohol or drug abuse patient.[facility] HospitalIn the event this information is protected by the Federal Confidentiality of Alcohol and Drug Abuse Patient Records regulations: The Federal rules restrict any use of the information to criminally investigate or prosecute any alcohol or drug abuse patient.[facility] HospitalIn the event this information is protected by the Federal Confidentiality of Alcohol and Drug Abuse Patient Records regulations: The Federal rules restrict any use of the information to criminally investigate or prosecute any alcohol or drug abuse patient.[facility] HospitalIn the event this information is protected by the Federal Confidentiality of Alcohol and Drug Abuse Patient Records regulations: The Federal rules restrict any use of the information to criminally investigate or prosecute any alcohol or drug abuse patient.[facility] HospitalIn the event this information is protected by the Federal Confidentiality of Alcohol and Drug Abuse Patient Records regulations: The Federal rules restrict any use of the information to criminally investigate or prosecute any alcohol or drug abuse patient.[facility] HospitalIn the event this information is protected by the Federal Confidentiality of Alcohol and Drug Abuse Patient Records regulations: The Federal rules restrict any use of the information to criminally investigate or prosecute any alcohol or drug abuse patient.[facility] HospitalIn the event this information is protected by the Federal Confidentiality of Alcohol and Drug Abuse Patient Records regulations: The Federal rules restrict any use of the information to criminally investigate or prosecute any alcohol or drug abuse patient.[facility] HospitalIn the event this information is protected by the Federal Confidentiality of Alcohol and Drug Abuse Patient Records regulations: The Federal rules restrict any use of the information to criminally investigate or prosecute any alcohol or drug abuse patient.[facility] HospitalIn the event this information is protected by the Federal Confidentiality of Alcohol and Drug Abuse Patient Records regulations: The Federal rules restrict any use of the information to criminally investigate or prosecute any alcohol or drug abuse patient.[facility] HospitalIn the event this information is protected by the Federal Confidentiality of Alcohol and Drug Abuse Patient Records regulations: The Federal rules restrict any use of the information to criminally investigate or prosecute any alcohol or drug abuse patient.[facility] HospitalIn the event this information is protected by the Federal Confidentiality of Alcohol and Drug Abuse Patient Records regulations: The Federal rules restrict any use of the information to criminally investigate or prosecute any alcohol or drug abuse patient.[facility] HospitalIn the event this information is protected by the Federal Confidentiality of Alcohol and Drug Abuse Patient Records regulations: The Federal rules restrict any use of the information to criminally investigate or prosecute any alcohol or drug abuse patient.[facility] HospitalIn the event this information is protected by the Federal Confidentiality of Alcohol and Drug Abuse Patient Records regulations: The Federal rules restrict any use of the information to criminally investigate or prosecute any alcohol or drug abuse patient.[facility] HospitalIn the event this information is protected by the Federal Confidentiality of Alcohol and Drug Abuse Patient Records regulations: The Federal rules restrict any use of the information to criminally investigate or prosecute any alcohol or drug abuse patient.[facility] HospitalIn the event this information is protected by the Federal Confidentiality of Alcohol and Drug Abuse Patient Records regulations: The Federal rules restrict any use of the information to criminally investigate or prosecute any alcohol or drug abuse patient.[facility] HospitalIn the event this information is protected by the Federal Confidentiality of Alcohol and Drug Abuse Patient Records regulations: The Federal rules restrict any use of the information to criminally investigate or prosecute any alcohol or drug abuse patient.[facility] HospitalIn the event this information is protected by the Federal Confidentiality of Alcohol and Drug Abuse Patient Records regulations: The Federal rules restrict any use of the information to criminally investigate or prosecute any alcohol or drug abuse patient.[facility] HospitalIn the event this information is protected by the Federal Confidentiality of Alcohol and Drug Abuse Patient Records regulations: The Federal rules restrict any use of the information to criminally investigate or prosecute any alcohol or drug abuse patient.[facility] HospitalIn the event this information is protected by the Federal Confidentiality of Alcohol and Drug Abuse Patient Records regulations: The Federal rules restrict any use of the information to criminally investigate or prosecute any alcohol or drug abuse patient.[facility] HospitalIn the event this information is protected by the Federal Confidentiality of Alcohol and Drug Abuse Patient Records regulations: The Federal rules restrict any use of the information to criminally investigate or prosecute any alcohol or drug abuse patient.[facility] HospitalIn the event this information is protected by the Federal Confidentiality of Alcohol and Drug Abuse Patient Records regulations: The Federal rules restrict any use of the information to criminally investigate or prosecute any alcohol or drug abuse patient.[facility] HospitalIn the event this information is protected by the Federal Confidentiality of Alcohol and Drug Abuse Patient Records regulations: The Federal rules restrict any use of the information to criminally investigate or prosecute any alcohol or drug abuse patient.[facility] HospitalIn the event this information is protected by the Federal Confidentiality of Alcohol and Drug Abuse Patient Records regulations: The Federal rules restrict any use of the information to criminally investigate or prosecute any alcohol or drug abuse patient.[facility] HospitalIn the event this information is protected by the Federal Confidentiality of Alcohol and Drug Abuse Patient Records regulations: The Federal rules restrict any use of the information to criminally investigate or prosecute any alcohol or drug abuse patient.[facility] HospitalIn the event this information is protected by the Federal Confidentiality of Alcohol and Drug Abuse Patient Records regulations: The Federal rules restrict any use of the information to criminally investigate or prosecute any alcohol or drug abuse patient.[facility] HospitalIn the event this information is protected by the Federal Confidentiality of Alcohol and Drug Abuse Patient Records regulations: The Federal rules restrict any use of the information to criminally investigate or prosecute any alcohol or drug abuse patient.[facility] HospitalIn the event this information is protected by the Federal Confidentiality of Alcohol and Drug Abuse Patient Records regulations: The Federal rules restrict any use of the information to criminally investigate or prosecute any alcohol or drug abuse patient.[facility] HospitalIn the event this information is protected by the Federal Confidentiality of Alcohol and Drug Abuse Patient Records regulations: The Federal rules restrict any use of the information to criminally investigate or prosecute any alcohol or drug abuse patient.[facility] HospitalIn the event this information is protected by the Federal Confidentiality of Alcohol and Drug Abuse Patient Records regulations: The Federal rules restrict any use of the information to criminally investigate or prosecute any alcohol or drug abuse patient.[facility] HospitalIn the event this information is protected by the Federal Confidentiality of Alcohol and Drug Abuse Patient Records regulations: The Federal rules restrict any use of the information to criminally investigate or prosecute any alcohol or drug abuse patient.[facility] HospitalIn the event this information is protected by the Federal Confidentiality of Alcohol and Drug Abuse Patient Records regulations: The Federal rules restrict any use of the information to criminally investigate or prosecute any alcohol or drug abuse patient.[facility] HospitalIn the event this information is protected by the Federal Confidentiality of Alcohol and Drug Abuse Patient Records regulations: The Federal rules restrict any use of the information to criminally investigate or prosecute any alcohol or drug abuse patient.[facility] HospitalIn the event this information is protected by the Federal Confidentiality of Alcohol and Drug Abuse Patient Records regulations: The Federal rules restrict any use of the information to criminally investigate or prosecute any alcohol or drug abuse patient.[facility] HospitalIn the event this information is protected by the Federal Confidentiality of Alcohol and Drug Abuse Patient Records regulations: The Federal rules restrict any use of the information to criminally investigate or prosecute any alcohol or drug abuse patient.[facility] HospitalIn the event this information is protected by the Federal Confidentiality of Alcohol and Drug Abuse Patient Records regulations: The Federal rules restrict any use of the information to criminally investigate or prosecute any alcohol or drug abuse patient.[facility] HospitalIn the event this information is protected by the Federal Confidentiality of Alcohol and Drug Abuse Patient Records regulations: The Federal rules restrict any use of the information to criminally investigate or prosecute any alcohol or drug abuse patient.[facility] HospitalIn the event this information is protected by the Federal Confidentiality of Alcohol and Drug Abuse Patient Records regulations: The Federal rules restrict any use of the information to criminally investigate or prosecute any alcohol or drug abuse patient.[facility] HospitalIn the event this information is protected by the Federal Confidentiality of Alcohol and Drug Abuse Patient Records regulations: The Federal rules restrict any use of the information to criminally investigate or prosecute any alcohol or drug abuse patient.[facility] HospitalIn the event this information is protected by the Federal Confidentiality of Alcohol and Drug Abuse Patient Records regulations: The Federal rules restrict any use of the information to criminally investigate or prosecute any alcohol or drug abuse patient.[facility] HospitalIn the event this information is protected by the Federal Confidentiality of Alcohol and Drug Abuse Patient Records regulations: The Federal rules restrict any use of the information to criminally investigate or prosecute any alcohol or drug abuse patient.[facility] HospitalIn the event this information is protected by the Federal Confidentiality of Alcohol and Drug Abuse Patient Records regulations: The Federal rules restrict any use of the information to criminally investigate or prosecute any alcohol or drug abuse patient.[facility] HospitalIn the event this information is protected by the Federal Confidentiality of Alcohol and Drug Abuse Patient Records regulations: The Federal rules restrict any use of the information to criminally investigate or prosecute any alcohol or drug abuse patient.[facility] HospitalIn the event this information is protected by the Federal Confidentiality of Alcohol and Drug Abuse Patient Records regulations: The Federal rules restrict any use of the information to criminally investigate or prosecute any alcohol or drug abuse patient.[facility] HospitalIn the event this information is protected by the Federal Confidentiality of Alcohol and Drug Abuse Patient Records regulations: The Federal rules restrict any use of the information to criminally investigate or prosecute any alcohol or drug abuse patient.[facility] HospitalIn the event this information is protected by the Federal Confidentiality of Alcohol and Drug Abuse Patient Records regulations: The Federal rules restrict any use of the information to criminally investigate or prosecute any alcohol or drug abuse patient.[facility] HospitalIn the event this information is protected by the Federal Confidentiality of Alcohol and Drug Abuse Patient Records regulations: The Federal rules restrict any use of the information to criminally investigate or prosecute any alcohol or drug abuse patient.[facility] HospitalIn the event this information is protected by the Federal Confidentiality of Alcohol and Drug Abuse Patient Records regulations: The Federal rules restrict any use of the information to criminally investigate or prosecute any alcohol or drug abuse patient.[facility] HospitalIn the event this information is protected by the Federal Confidentiality of Alcohol and Drug Abuse Patient Records regulations: The Federal rules restrict any use of the information to criminally investigate or prosecute any alcohol or drug abuse patient.[facility] HospitalIn the event this information is protected by the Federal Confidentiality of Alcohol and Drug Abuse Patient Records regulations: The Federal rules restrict any use of the information to criminally investigate or prosecute any alcohol or drug abuse patient.[facility] HospitalIn the event this information is protected by the Federal Confidentiality of Alcohol and Drug Abuse Patient Records regulations: The Federal rules restrict any use of the information to criminally investigate or prosecute any alcohol or drug abuse patient.[facility] HospitalIn the event this information is protected by the Federal Confidentiality of Alcohol and Drug Abuse Patient Records regulations: The Federal rules restrict any use of the information to criminally investigate or prosecute any alcohol or drug abuse patient.[facility] HospitalIn the event this information is protected by the Federal Confidentiality of Alcohol and Drug Abuse Patient Records regulations: The Federal rules restrict any use of the information to criminally investigate or prosecute any alcohol or drug abuse patient.[facility] HospitalIn the event this information is protected by the Federal Confidentiality of Alcohol and Drug Abuse Patient Records regulations: The Federal rules restrict any use of the information to criminally investigate or prosecute any alcohol or drug abuse patient.[facility] HospitalIn the event this information is protected by the Federal Confidentiality of Alcohol and Drug Abuse Patient Records regulations: The Federal rules restrict any use of the information to criminally investigate or prosecute any alcohol or drug abuse patient.[facility] HospitalIn the event this information is protected by the Federal Confidentiality of Alcohol and Drug Abuse Patient Records regulations: The Federal rules restrict any use of the information to criminally investigate or prosecute any alcohol or drug abuse patient.[facility] HospitalIn the event this information is protected by the Federal Confidentiality of Alcohol and Drug Abuse Patient Records regulations: The Federal rules restrict any use of the information to criminally investigate or prosecute any alcohol or drug abuse patient.[facility] HospitalIn the event this information is protected by the Federal Confidentiality of Alcohol and Drug Abuse Patient Records regulations: The Federal rules restrict any use of the information to criminally investigate or prosecute any alcohol or drug abuse patient.[facility] HospitalIn the event this information is protected by the Federal Confidentiality of Alcohol and Drug Abuse Patient Records regulations: The Federal rules restrict any use of the information to criminally investigate or prosecute any alcohol or drug abuse patient.[facility] HospitalIn the event this information is protected by the Federal Confidentiality of Alcohol and Drug Abuse Patient Records regulations: The Federal rules restrict any use of the information to criminally investigate or prosecute any alcohol or drug abuse patient.[facility] HospitalIn the event this information is protected by the Federal Confidentiality of Alcohol and Drug Abuse Patient Records regulations: The Federal rules restrict any use of the information to criminally investigate or prosecute any alcohol or drug abuse patient.[facility] HospitalIn the event this information is protected by the Federal Confidentiality of Alcohol and Drug Abuse Patient Records regulations: The Federal rules restrict any use of the information to criminally investigate or prosecute any alcohol or drug abuse patient.[facility] HospitalIn the event this information is protected by the Federal Confidentiality of Alcohol and Drug Abuse Patient Records regulations: The Federal rules restrict any use of the information to criminally investigate or prosecute any alcohol or drug abuse patient.[facility] HospitalIn the event this information is protected by the Federal Confidentiality of Alcohol and Drug Abuse Patient Records regulations: The Federal rules restrict any use of the information to criminally investigate or prosecute any alcohol or drug abuse patient.[facility] HospitalIn the event this information is protected by the Federal Confidentiality of Alcohol and Drug Abuse Patient Records regulations: The Federal rules restrict any use of the information to criminally investigate or prosecute any alcohol or drug abuse patient.[facility] HospitalIn the event this information is protected by the Federal Confidentiality of Alcohol and Drug Abuse Patient Records regulations: The Federal rules restrict any use of the information to criminally investigate or prosecute any alcohol or drug abuse patient.[facility] HospitalIn the event this information is protected by the Federal Confidentiality of Alcohol and Drug Abuse Patient Records regulations: The Federal rules restrict any use of the information to criminally investigate or prosecute any alcohol or drug abuse patient.[facility] HospitalIn the event this information is protected by the Federal Confidentiality of Alcohol and Drug Abuse Patient Records regulations: The Federal rules restrict any use of the information to criminally investigate or prosecute any alcohol or drug abuse patient.[facility] HospitalIn the event this information is protected by the Federal Confidentiality of Alcohol and Drug Abuse Patient Records regulations: The Federal rules restrict any use of the information to criminally investigate or prosecute any alcohol or drug abuse patient.[facility] HospitalIn the event this information is protected by the Federal Confidentiality of Alcohol and Drug Abuse Patient Records regulations: The Federal rules restrict any use of the information to criminally investigate or prosecute any alcohol or drug abuse patient.[facility] HospitalIn the event this information is protected by the Federal Confidentiality of Alcohol and Drug Abuse Patient Records regulations: The Federal rules restrict any use of the information to criminally investigate or prosecute any alcohol or drug abuse patient.[facility] HospitalIn the event this information is protected by the Federal Confidentiality of Alcohol and Drug Abuse Patient Records regulations: The Federal rules restrict any use of the information to criminally investigate or prosecute any alcohol or drug abuse patient.[facility] HospitalIn the event this information is protected by the Federal Confidentiality of Alcohol and Drug Abuse Patient Records regulations: The Federal rules restrict any use of the information to criminally investigate or prosecute any alcohol or drug abuse patient.[facility] HospitalIn the event this information is protected by the Federal Confidentiality of Alcohol and Drug Abuse Patient Records regulations: The Federal rules restrict any use of the information to criminally investigate or prosecute any alcohol or drug abuse patient.[facility] HospitalIn the event this information is protected by the Federal Confidentiality of Alcohol and Drug Abuse Patient Records regulations: The Federal rules restrict any use of the information to criminally investigate or prosecute any alcohol or drug abuse patient.[facility] HospitalIn the event this information is protected by the Federal Confidentiality of Alcohol and Drug Abuse Patient Records regulations: The Federal rules restrict any use of the information to criminally investigate or prosecute any alcohol or drug abuse patient.[facility] HospitalIn the event this information is protected by the Federal Confidentiality of Alcohol and Drug Abuse Patient Records regulations: The Federal rules restrict any use of the information to criminally investigate or prosecute any alcohol or drug abuse patient.[facility] HospitalIn the event this information is protected by the Federal Confidentiality of Alcohol and Drug Abuse Patient Records regulations: The Federal rules restrict any use of the information to criminally investigate or prosecute any alcohol or drug abuse patient.[facility] HospitalIn the event this information is protected by the Federal Confidentiality of Alcohol and Drug Abuse Patient Records regulations: The Federal rules restrict any use of the information to criminally investigate or prosecute any alcohol or drug abuse patient.[facility] HospitalIn the event this information is protected by the Federal Confidentiality of Alcohol and Drug Abuse Patient Records regulations: The Federal rules restrict any use of the information to criminally investigate or prosecute any alcohol or drug abuse patient.[facility] HospitalIn the event this information is protected by the Federal Confidentiality of Alcohol and Drug Abuse Patient Records regulations: The Federal rules restrict any use of the information to criminally investigate or prosecute any alcohol or drug abuse patient.[facility] HospitalIn the event this information is protected by the Federal Confidentiality of Alcohol and Drug Abuse Patient Records regulations: The Federal rules restrict any use of the information to criminally investigate or prosecute any alcohol or drug abuse patient.[facility] HospitalIn the event this information is protected by the Federal Confidentiality of Alcohol and Drug Abuse Patient Records regulations: The Federal rules restrict any use of the information to criminally investigate or prosecute any alcohol or drug abuse patient.[facility] Reason for Visit (unrecogniz ed section and content) Reason Comments Stress Specialty Diagnoses / Procedures Referred By Contac t Referred To Contact Ob/Gyn Nurse / WELLNESS Diagnoses NEW MIND BODY No MyChart (Last seen Mar) Procedures NEW WI MIND BODY Self Gucci Emery LISW [address] [place] [address] Referral ID Status Reason Start Date Expiration Date V isits Requested Visits Authorized [id number] Authorized 08/24/2023 08/23/2024 99 99 Reason Comments [...] Patient Question Reason Comments Establish Care ER 04/05/24 AM Reason Comments Pain Left side of [...] Evaluation Specialty Diagnoses / Procedures Referred By Contac t Referred To Contact Gerontology Diagnoses Balance disorder Memory change Procedures CONSULT TO GERIATRICS OFFICE/OUTPATIENT NEW HIGH MDM 60 MINUTES Older, José Miguel, [employer].EARLY CHILDHOOD [address] [place] [address] Phone: tel: fax: Referral ID Status Reason Start Date Expiration Date V isits Requested Visits Authorized [id number] Closed PCP Requested Referral 10/21/2024 10/21/2025 1 1 Reason Onset Date Comments Results 11/10/2024 Reason Onset Date Comments Refill Request 11/11/2024 Reason Comments Continuing SOB Reason Comments Received Outside Medical Records Holter Reason Comments Derm Problem Reason Comments Derm Problem Spot on right forear m that is changing wants to have checked. Reason Comments PT Eval Specialty Diagnoses / Procedures Referred By Feng t Referred To Contact [facility] Diagnoses Pain in both knees, unspecified chronicity Procedures CONSULT TO PHYSICAL THERAPY PHYSICAL THERAPY EVALUATION HIGH COMPLEX 45 MINS MANUAL THERAPY TQS REGIONS EACH 15 MINUTES José Miguel Saldaña APRN.CNP [address] [place] [address] Phone: tel: fax: [facility] [address] [place] [address] Referral ID Status Reason Start Date Expiration Date Visits Requested Visits Authorized [id number] Authorized Auto-Generat ed Referral 08/24/2024 08/23/2025 75 75 Reason Comments Established Patient Reason Comments Hypotension Reason Comments Schedule Surgery PVI ablation Reason Comments Follow Up For Hypotension & post c ardiology appointments Reason Comments Ingrown Nail Established Patient Follow Up Procedure Reason Comments Ingrown Nail Reason Comments Wound Check Had toenail removed x 1 week ago, by [facility], is having throbbing, redness, warmth, swelling in great to on Left foot, x last night Care Teams (unrecognized sec tion and content) Living Specialist Relationship Specialty Start Date End Date Elizabeth Dael PA-C [address] [place] [address] PCP - General Family Practice 02/08/21 Living Specialist Relationship Specialty Start Date End Date Elizabeth Dale PA-C [address] [place], [place] [address] PCP - General Family Practice 02/08/21 Living Specialist Relationship Specialty Start Date End Date Elizabeth Dale PA-C [address] [place], [place] [id number] PCP - General Family Practice 02/08/21 Living Specialist Relationship Specialty Start Date End Date Elizabeth Dale PA-C [address] [place], [place] [id number] PCP - General Family Practice 02/08/21 Living Specialist Relationship Specialty Start Date End Date Elizabeth Dale PA-C [address] [place] [address] PCP - General Family Medicine 02/08/21 Team Status: Active Member Role Status Dates Dr. Chaitanya Estrella III, MD Family Provider Active Elizabeth DENNIS PA Primary Care Provider Active Team Status: Inactive Member Role Status Dates Elizabeth Dale PA, PA Primary Care Provider, Referri ng Provider Active Desire Weldon PA, PA Attending Provider Active Team Status: Inactive Member Role Status Dates Elizabeth Sakina Dale PA, PA Primary Care Provider, Referri ng Provider Active Jagruti Belle PA, PA Attending Provider Active Team Status: Inactive Member Role Status Dates Elizabeth Sakina DENNIS, PA Primary Care Provider Active Bart Rosales DIET AID, DIET AID-C Attending Provider, Referring Pro vider Active Team Status: Inactive Member Role Status Dates Elizabeth DENNIS, PA Primary Care Provider Active Dr. Tahir Donis , Emergency Provider Active Living Specialist Relationship Specialty Start Date End Date Elizabeth Dale RODNEY JiménezC [address] [place] [address] PCP - General [facility] Medicine 02/08/21 Team Status: Active Member Role Status Dates Elizabeth DENNIS PA Primary Care Provider Active Bart Rosales DIET AID, DIET AID-C Attending Provider, Referring Pro vider Active Team Status: Inactive Member Role Status Dates Elizabeth DENNIS PA Primary Care Provider Active Dr. Tahir Donis , Attending Provider, Emergency Pro vider Active Team [...] Dr. Ignacio Fay DO Emergency Provider Active Living Specialist Relationship Specialty Start Date End Date Elizabeth Dale PA-C [address] [place] [address] PCP - General Family Medicine 02/08/21 Living Specialist Relationship Specialty Start Date End Date Elizabeth Dale PA-C [address] [place] [address] PCP - General Family Medicine 02/08/21 Living Specialist Relationship Specialty Start Date End Date Elizabeth Dale PA-C [address] [place] [address] PCP - General Family Medicine 02/08/21 Mynor Shirley MD [address] [place] [address] Primary Staff Physician Cardiology 10/28/22 Living Specialist Relationship Specialty Start Date End Date Elizabeth Dale PA-C [address] [place] [address] PCP - General Family Medicine 02/08/21 Mynor Shirley MD [address] [place] [address] Primary Staff Physician Cardiology 10/28/22 Team Status: Inactive Member Role Status Dates JEANNIE Rojas Primary Care Provider Active Dr. Ignacio Fay , Attending Provider, Emergency Provider Active Team Status: Active Member Role Status Dates JEANNIE Rojas Primary Care Provider, Attendi ng Provider Active Living Specialist Relationship Specialty Start Date End Date Elizabeth Dale PA-C [address] [place] [address] PCP - General Family Medicine 02/08/21 Mynor Shirley MD [address] [place] [address] Primary Staff Physician Cardiology 10/28/22 Desire Weldon [address] [place] [address] 11/05/22 Living Specialist Relationship Specialty Start Date End Date Elizabeth Dale PA-C [address] [place] [address] PCP - General Family Medicine 02/08/21 Mynor Shirley MD [address] [place] [address] Primary Staff Physician Cardiology 10/28/22 Desire Weldon [address] [place] [address] 11/05/22 Living Specialist Relationship Specialty Start Date End Date Elizabeth Dale PA-C [address] [place] [address] PCP - General Family Medicine 02/08/21 Mynor Shirley MD [address] [place] [address] Primary Staff Physician Cardiology 10/28/22 Desire Weldon [address] [place] [address] 11/05/22 Living Specialist Relationship Specialty Start Date End Date Elizabeth Dale PA-C [address] [place] [address] PCP - General Family Medicine 02/08/21 Mynor Shirley MD [address] [place] [address] Primary Staff Physician Cardiology 10/28/22 Desire Weldon [address] [place] [address] 11/05/22 Living Specialist Relationship Specialty Start Date End Date Elizabeth Dale PA-C [address] [place] [address] PCP - General Family Medicine 02/08/21 Mynor Shirley MD [address] [place] [address] Primary Staff Physician Cardiology 10/28/22 Desire Weldon [address] [place] [address] 11/05/22 Living Specialist Relationship Specialty Start Date End Date Elizabeth Dale PA-C [address] [place] [address] PCP - General Family Medicine 02/08/21 Mynor Shirley MD [address] [place] [address] Primary Staff Physician Cardiology 10/28/22 Desire Weldon [address] [place] [address] 11/05/22 Living Specialist Relationship Specialty Start Date End Date Elizabeth Dale PA-C [address] [place] [address] PCP - General Family Medicine 02/08/21 Mynor Shirley MD [address] [place] [address] Primary Staff Physician Cardiology 10/28/22 Desire Weldon [address] [place] [address] 11/05/22 Living Specialist Relationship Specialty Start Date End Date Elizabeth Dale PA-C [address] [place] [address] PCP - General Family Medicine 02/08/21 Mynor Shirley MD [address] [place] [address] Primary Staff Physician Cardiology 10/28/22 Desire Weldon [address] [place] [address] 11/05/22 Living Specialist Relationship Specialty Start Date End Date Elizabeth Dale PA-C [address] [place] [address] PCP - General Family Medicine 02/08/21 Mynor Shirley MD [address] [place] [address] Primary Staff Physician Cardiology 10/28/22 Desire Weldon [address] [place] [address] 11/05/22 Team Status: Active Member Role Status JEANNIE Rangel Primary Care Pro vider, Attending Provider, Referring Provider Active Living Specialist Relationship Specialty Start Date End Date Elizabeth Dale PA-C [address] [place] [address] PCP - General Family Medicine 02/08/21 Mynor Shirley MD [address] [place] [address] Primary Staff Physician Cardiology 10/28/22 Desire Weldon [address] [place] [address], [place] [address] 11/05/22 Living Specialist Relationship Specialty Start Date End Date Elizabeth Dale PA-C [address] [place] [address] PCP - General Family Medicine 02/08/21 Mynor Shirley MD [address] [place] [address] Primary Staff Physician Cardiology 10/28/22 Desire Weldon [address] [place] [address] 11/05/22 Team Status: Inactive Member Role Status Dates JEANNIE Rojas Primary Care Pro vider, Attending Provider, Referring Provider Active Team Status: Inactive Member Role Status Dates JEANNIE Rojas Primary Care Provider, Attendi ng Provider Active Living Specialist Relationship Specialty Start Date End Date Elizabeth Dale PA-C [address] [place] [address] PCP - General Family Medicine 02/08/21 Mynor Shirley MD [address] [place] [address] Primary Staff Physician Cardiology 10/28/22 Desire Weldon [address] [place] [address] 11/05/22 Living Specialist Relationship Specialty Start Date End Date Elizabeth Dale PA-C [address] [place] [address] PCP - General Family Medicine 02/08/21 Mynor Shirley MD [address] [place] [address] Primary Staff Physician Cardiology 10/28/22 Desire Weldon [address] [place] [address] 11/05/22 Team Status: Inactive Member Role Status JEANNIE Rangel Primary Care Provider, Referri Provider Active Pop Villanueva MD Attending Provider Active Living Specialist Relationship Specialty Start Date End Date Elizabeth Dale PA-C [address] [place] [address] PCP - General Family Medicine 02/08/21 Mynor Shirley MD [address] [place] [address] Primary Staff Physician Cardiology 10/28/22 Desire Weldon [address] [place] [address] 11/05/22 Living Specialist Relationship Specialty Start Date End Date Elizabeth Dale PA-C [address] [place] [address] PCP - General Family Medicine 02/08/21 Mynor Shirley MD [address] [place] [address] Primary Staff Physician Cardiology 10/28/22 Desire Weldon [address] [place] [address] 11/05/22 Living Specialist Relationship Specialty Start Date End Date Elizabeth Dale PA-C [address] [place] [address] PCP - General Family Medicine 02/08/21 Mynor Shirley MD [address] [place] [address] Primary Staff Physician Cardiology 10/28/22 Desire Weldon [address] [place] [address] 11/05/22 Living Specialist Relationship Specialty Start Date End Date Elizabeth Dale PA-C [address] [place] [address] PCP - General Family Medicine 02/08/21 Mynor Shirley MD [address] [place] [address] Primary Staff Physician Cardiology 10/28/22 Desire Weldon [address] [place] [address] 11/05/22 Living Specialist Relationship Specialty Start Date End Date Elizabeth Dale PA-C [address] [place] [address] PCP - General Family Medicine 02/08/21 Mynor Shirley MD [address] [place] [address] Primary Staff Physician Cardiology 10/28/22 Desire Weldon [address] [place] [address], [place] [address] 11/05/22 Living Specialist Relationship Specialty Start Date End Date Elizabeth Dale PA-C [address] [place] [address] PCP - General Family Medicine 02/08/21 Mynor Shirley MD [address] [place] [address] Primary Staff Physician Cardiology 10/28/22 Desire Weldon [address] [place] [address], [place] [address] 11/05/22 Living Specialist Relationship Specialty Start Date End Date Elizabeth Dale PA-C [address] [place] [address] PCP - General Family Medicine 02/08/21 Mynor Shirley MD [address] [place] [address] Primary Staff Physician Cardiology 10/28/22 Desire Weldon [address] [place] [address] 11/05/22 Living Specialist Relationship Specialty Start Date End Date Moon Teixeira MD [address] [place] [address] PCP - General Internal Medicine 04/05/24 Mynor Shirley MD [address] [place] [address] Primary Staff Physician Cardiology 10/28/22 Desire Weldon [address] [place] [address] 11/05/22 Living Specialist Relationship Specialty Start Date End Date Moon Teixeira MD [address] [place] [address] PCP - General Internal Medicine 04/05/24 Mynor Shirley MD [address] [place] [address] Primary Staff Physician Cardiology 10/28/22 Desire Weldon [address] [place] [address], [place] [address] 11/05/22 Living Specialist Relationship Specialty Start Date End Date Moon Teixeira MD [address] [place] [address] PCP - General Internal Medicine 04/05/24 Mynor Shirley MD [address] [place] [address] Primary Staff Physician Cardiology 10/28/22 Shiraz Desire [address] [place] [address] 11/05/22 Living Specialist Relationship Specialty Start Date End Date Moon Teixeira MD [address] [facility] [place] [address] PCP - General Internal Medicine 04/05/24 Mynor Shirley MD [address] [place] [address] Primary Staff Physician Cardiology 10/28/22 Desire Weldon [address] [place] [address], [place] [address] 11/05/22 Living Specialist Relationship Specialty Start Date End Date Moon Teixeira MD [address] [place] [address] PCP - General Internal Medicine 04/05/24 Mynor Shirley MD [address] [place] [address] Primary Staff Physician Cardiology 10/28/22 Desire Weldon [address] [place] [address], [place] [address] 11/05/22 Living Specialist Relationship Specialty Start Date End Date Moon Teixeira MD [address] [place] [address] PCP - General Internal Medicine 04/05/24 Mynor Shirley MD [address] [place] [address] Primary Staff Physician Cardiology 10/28/22 Desire Weldon [address] [place] [address] 11/05/22 Living Specialist Relationship Specialty Start Date End Date Elizabeth Dale PA-C [address] [place] [address] PCP - General Family Medicine 02/08/21 04/04/24 Mynor Shirley MD [address] [place] [address] Primary Staff Physician Cardiology 10/28/22 Desire Weldon [address] [place] [address] 11/05/22 Living Specialist Relationship Specialty Start Date End Date Elizabeth Dale PA-C [address] [place] [address] PCP - General Family Medicine 02/08/21 04/04/24 Mynor Shirley MD [address] [place] [address] Primary Staff Physician Cardiology 10/28/22 Desire Weldon [address] [place] [address], [place] [address] 11/05/22 Living Specialist Relationship Specialty Start Date End Date Elizabeth Dale PA-C [address] [place] [address] PCP - General Family Medicine 02/08/21 04/04/24 Mynor Shirley MD [address] [place] [address] Primary Staff Physician Cardiology 10/28/22 Desire Weldon [address] [place] [address], [place] [address] 11/05/22 Living Specialist Relationship Specialty Start Date End Date Elizabeth Dale PA-C [address] [place] [address] PCP - General Family Medicine 02/08/21 04/04/24 Mynor Shirley MD [address] [place] [address] Primary Staff Physician Cardiology 10/28/22 Desire Weldon [address] [place] [address] 11/05/22 Living Specialist Relationship Specialty Start Date End Date Moon Teixeira MD [address] [place] [address] PCP - General Internal Medicine 04/05/24 Mynor Shirley MD [address] [place] [address] Primary Staff Physician Cardiology 10/28/22 Desire Weldon [address] [place] [address] 11/05/22 Living Specialist Relationship Specialty Start Date End Date Elizabeth Dale PA-C [address] [place] [address] PCP - General Family Medicine 02/08/21 04/04/24 Living Specialist Relationship Specialty Start Date End Date Elizabeth Dale PA-C [address] [place] [address] PCP - General Family Medicine 02/08/21 04/04/24 Living Specialist Relationship Specialty Start Date End Date Elizabeth Dale PA-C [address] [place] [address] PCP - General Family Medicine 02/08/21 04/04/24 Moon Teixeira MD [address] [place] [address] PCP - General Internal Medicine 04/05/24 Mynor Shirley MD [address] [place] [address] Primary Staff Physician Cardiology 10/28/22 Desire Weldon [address] [place] [address] 11/05/22 Living Specialist Relationship Specialty Start Date End Date Moon Teixeira MD [address] [facility] [place] [address] PCP - General Internal Medicine 04/05/24 Mynor Shirley MD [address] [place] [address] Primary Staff Physician Cardiology 10/28/22 Desire Weldon [address] [place] [address], [place] [address] 11/05/22 Living Specialist Relationship Specialty Start Date End Date Moon Teixeira MD [address] [place] [address] PCP - General Internal Medicine 04/05/24 Mynor Shirley MD [address] [place] [address] Primary Staff Physician Cardiology 10/28/22 Desire Weldon [address] [place] [address] 11/05/22 Living Specialist Relationship Specialty Start Date End Date Moon Teixeira MD [address] [facility] [place] [address] PCP - General Internal Medicine 04/05/24 Mynor Shirley MD [address] [place] [address] Primary Staff Physician Cardiology 10/28/22 Desire Wedlon [address] [address] 11/05/22 Living Specialist Relationship Specialty Start Date End Date Moon Teixeira MD [address] [place] [address] PCP - General Internal Medicine 04/05/24 Mynor Shirley MD [address] [place] [address] Primary Staff Physician Cardiology 10/28/22 Desire Weldon [address] [place] [address] 11/05/22 Living Specialist Relationship Specialty Start Date End Date Moon Teixeira MD [address] [place] [address] PCP - General Internal Medicine 04/05/24 Mynor Shirley MD [address] [place] [address] Primary Staff Physician Cardiology 10/28/22 Desire Weldon [address] [place] [address] 457[address] 11/05/22 Julieta Elizabeth PA-C [address] [place] [address] Composition Board Press Operator Family Medicine 07/31/24 José Miguel Saldaña APRN.EARLY CHILDHOOD [address] [place] [address] Composition Board Press Operator Internal Medicine 07/31/24 Yaa Ashby PA-C [address] [place] [address] Composition Board Press Operator Family [facility] 07/31/24 Living Specialist Relationship Specialty Start Date End Date Moon Teixeira MD [address] [place] [address] PCP - General Internal Medicine 04/05/24 Mynor Shirley MD [address] [place] [address] Primary Staff Physician Cardiology 10/28/22 Desire Weldon [address] [place] [address] 11/05/22 Julieta Elizabeth PA-C [address] [place] [address] Composition Board Press Operator Family [facility] 07/31/24 José Miguel Saldaña APRN.CNP [address] [place] [address] Composition Board Press Operator Internal Medicine 07/31/24 Yaa Ashby PA-C [address] [place] [address] Composition Board Press Operator Family [facility] 07/31/24 Living Specialist Relationship Specialty Start Date End Date Moon Teixeira MD [address] [place] [address] PCP - General Internal Medicine 04/05/24 Mynor Shirley MD [address] [place] [address] Primary Staff Physician Cardiology 10/28/22 Desire Weldon [address] [place] [address] 11/05/22 Julieta Elizabeth PA-C [address] [place] [address] Composition Board Press Operator Family Medicine 07/31/24 José Miguel Saldaña APRN.EARLY CHILDHOOD [address] [place] [address] Composition Board Press Operator Internal Medicine 07/31/24 Yaa Ashby PA-C [address] [place] [address] Composition Board Press Operator Family [facility] 07/31/24 Living Specialist Relationship Specialty Start Date End Date Moon Teixeira MD [address] [place] [address] PCP - General Internal Medicine 04/05/24 Mynor Shirley MD [address] [place] [address] Primary Staff Physician Cardiology 10/28/22 Desire Weldon [address] [place] [phone] 11/05/22 Julieta Elizabeth PA-C [address] [place] [address] Composition Board Press Operator Family [facility] 07/31/24 José Miguel Saldaña APRN.EARLY CHILDHOOD [address] [place] [address] Composition Board Press Operator Internal Medicine 07/31/24 Yaa Ashby PA-C [address] [place] [address] Composition Board Press Operator Family [facility] 07/31/24 Living Specialist Relationship Specialty Start Date End Date Moon Teixeira MD [address] [place] [address] PCP - General Internal Medicine 04/05/24 Mynor Shirley MD [address] [place] [address] Primary Staff Physician Cardiology 10/28/22 Desire Weldon [address] [place] [address] 11/05/22 Julieta Elizabeth PA-Triny [address] [place] [address] Composition Board Press Operator Family Medicine 07/31/24 José Miguel Saldaña APRN.CNP [address] [place] [address] Composition Board Press Operator Internal Medicine 07/31/24 Yaa Ashby PA-C [address] [place] [address] Composition Board Press Operator Family Medicine 07/31/24 Living Specialist Relationship Specialty Start Date End Date Moon Teixeira MD [address] [place] [address] PCP - General Internal Medicine 04/05/24 Mynor Shirley MD [address] [place] [address] Primary Staff Physician Cardiology 10/28/22 Desire Weldon [address] [place] [address] 11/05/22 Julieta Elizabeth PA-C [address] [place] [address] Composition Board Press Operator Family Medicine 07/31/24 José Miguel Saldaña APRN.EARLY CHILDHOOD [address] [place] [address] Composition Board Press Operator Internal Medicine 07/31/24 Yaa Ashby PA-C [address] [place] [address] Composition Board Press Operator Family [facility] 07/31/24 Living Specialist Relationship Specialty Start Date End Date Moon Teixeira MD [address] [place] [address] PCP - General Internal Medicine 04/05/24 Mynor Shirley MD [address] [place] [address] Primary Staff Physician Cardiology 10/28/22 Desire Weldon [address] [place] [address] 11/05/22 Julieta Elizabeth PA-C [address] [place] [address] [facility] 07/31/24 José Miguel Saldaña APRN.EARLY CHILDHOOD [address] [place] [address] Composition Board Press Operator Internal Medicine 07/31/24 Yaa Ashby PA-C [address] [place] [address] Composition Board Press Operator Family [facility] 07/31/24 Living Specialist Relationship Specialty Start Date End Date Moon Teixeira MD [address] [place] [address] PCP - General Internal Medicine 04/05/24 Mynor Shirley MD [address] [place] [address] Primary Staff Physician Cardiology 10/28/22 Desire Weldon [address] [place] [address] 450[address] 11/05/22 Julieta Elizabeth PA-C [address] [place] [address] [facility] Family [facility] 07/31/24 Piotr, SCOTT Tillman.EARLY CHILDHOOD [address] [place], [place] [id number] [facility] Internal Medicine 07/31/24 Yaa Ashby PA-C [address] [place], [place] [id number] [facility] 07/31/24 Team Status: Active Member Role Status Dates Dr. Moon Teixeira MD Primary Care Provider Active Team Status: Inactive Member Role Status Dates Bart Rosales DIET AID, DIET AID-C Attending Provider Active S tart: July 26, 2024 End: July 26, 2024 Bart Rosales DIET AID, DIET AID-C Referring Provider Active S tart: July 26, 2024 End: July 26, 2024 Dr. Moon Teixeira MD Primary Care Provider Active Start: July 26, 2024 End: July 26, 2024 Team Status: Inactive Member Role Status Dates Bart Rosales DIET AID, DIET AID-C Attending Provider Active S tart: September 22, 2024 End: September 22, 2024 Bart Rosales DIET AID, DIET AID-C Referring Provider Active S tart: September 22, 2024 End: September 22, 2024 Dr. Moon Teixeira MD Primary Care Provider Active Start: September 22, 2024 End: September 22, 2024 Team Status: Inactive Member Role Status Dates Dr. Moon Teixeira MD Primary Care Provider Active Start: September 23, 2024 End: September 23, 2024 Desire Weldon PA, PA Attending Provider Active Start: September 23, [...] October 11, 2024 End: October 11, 2024 JEANNIE Magallon Attending Provider Active Start: October 11, 2024 End: October 11, 2024 Desire DENNIS PA Referring Provider Active Start: October 11, 2024 End: October 11, 2024 Bart Rosales DIET AID, DIET AID-C Other Provider Active Start : October 11, [...] Active Member Role Status Dates Bart Rosales DIET AID, DIET AID-C Attending Provider Active S tart: November 11, 2024 Bart Rosales DIET AID, DIET AID-C Referring Provider Active S tart: November 11, 2024 Dr. Moon Teixeira MD Primary Care Provider Active Start: November 11, 2024 Team Status: Inactive Member Role Status Dates Bart Rosales DIET AID, DIET AID-C Attending Provider Active S tart: November 18, 2024 End: November 18, 2024 Bart Rosales DIET AID, DIET AID-C Referring Provider Active S tart: November 18, [...] November 28, 2024 End: November 28, 2024 Living Specialist Relationship Specialty Start Date End Date Moon Teixeira MD [address] [place] [address] PCP - General Internal Medicine 04/05/24 Mynor Shirley MD [address] [place] [address] Primary Staff Physician Cardiology 10/28/22 Desire Weldon [address] [place] [address] 11/05/22 OlderJosé Miguel [employer]AL [employer].EARLY CHILDHOOD [address] [place] [address] Composition Board Press Operator Internal Medicine 07/31/24 Living Specialist Relationship Specialty Start Date End Date Moon Teixeira MD [address] [place] [address] PCP - General Internal Medicine 04/05/24 Mynor Shirley MD [address] [place] [address] Primary Staff Physician Cardiology 10/28/22 Desire Weldon [address] [place] [address] 11/05/22 José Miguel Saldaña, [employer].EARLY CHILDHOOD [address] [facility] [place] [address] Composition Board Press Operator Internal Medicine 07/31/24 Living Specialist Relationship Specialty Start Date End Date Moon Teixeira MD [address] [facility] [place] [address] PCP - General Internal Medicine 04/05/24 Mynor Shirley MD [address] [place] [address] Primary Staff Physician Cardiology 10/28/22 Desire Weldon [address] [place] [address] 11/05/22 OlderJosé Miguel APRN.EARLY CHILDHOOD [address] [place] [address] Composition Board Press Operator Internal Medicine 07/31/24 Living Specialist Relationship Specialty Start Date End Date Moon Teixeira MD [address] [place] [address] PCP - General Internal Medicine 04/05/24 Mynor Shirley MD [address] [place] [address] Primary Staff Physician Cardiology 10/28/22 Desire Weldon [address] [place] [address] 11/05/22 OlderJosé Miguel, [employer].EARLY CHILDHOOD [address] [place] [address] Composition Board Press Operator Internal Medicine 07/31/24 Team Status: Inactive Member [...] November 28, 2024 End: November 28, 2024 Living Specialist Relationship Specialty Start Date End Date Moon Teixeira MD [address] [facility] [place] [address] PCP - General Internal Medicine 04/05/24 Mynor Shirley MD [address] [place] [address] Primary Staff Physician Cardiology 10/28/22 Desire Weldon [address] [place] [address], [place] [address] 11/05/22 José Miguel Saldaña, [employer]AL [employer].EARLY CHILDHOOD [address] [place] [address] Composition Board Press Operator Internal Medicine 07/31/24 Living Specialist Relationship Specialty Start Date End Date Moon Teixeira MD [address] [place] [address] PCP - General Internal Medicine 04/05/24 Mynor Shirley MD [address] [place] [address] Primary Staff Physician Cardiology 10/28/22 Desire Weldon [address] [place] [address] 11/05/22 José Miguel Saldaña SE[employer]AL [employer].EARLY CHILDHOOD [address] [place] [address] Composition Board Press Operator Internal Medicine 07/31/24 Living Specialist Relationship Specialty Start Date End Date Moon Teixeira MD [address] [place] [address] PCP - General Internal Medicine 04/05/24 Mynor Shirley MD [address] [place] [address] Primary Staff Physician Cardiology 10/28/22 Desire Weldon [address] [place] [address] 11/05/22 José Miguel Saldaña APRN.EARLY CHILDHOOD [address] [place] [address] Composition Board Press Operator Internal Medicine 07/31/24 Team Status: Inactive Member Role Status Dates Bart Rosales DIET AID, DIET AID-C Attending Provider Active S tart: January 05, 2025 End: January 05, 2025 Bart Rosales DIET AID, DIET AID-C Referring Provider Active S tart: January 05, 2025 End: January 05, 2025 Dr. Moon Teixeira MD Primary Care Provider Active Start: January 05, 2025 End: January 05, 2025 Dr. Yinka Lovelace MD Other Provider Active St art: January 05, 2025 End: January 05, 2025 Living Specialist Relationship Specialty Start Date End Date Moon Teixeira MD [address] [place] [address] PCP - General Internal Medicine 04/05/24 Mynor Shirley MD [address] [place] [address] Primary Staff Physician Cardiology 10/28/22 Desire Weldon [address] [place] [address] 29594 11/05/22 José Miguel Saldaña APRN.EARLY CHILDHOOD [address] [place] [address] Composition Board Press Operator Internal Medicine 07/31/24 Living Specialist Relationship Specialty Start Date End Date Moon Teixeira MD [address] [place] [address] PCP - General Internal Medicine 04/05/24 Mynor Shirley MD [address] [place] [address] Primary Staff Physician Cardiology 10/28/22 Desire Weldon [address] [place] [address] 11/05/22 OlderJosé Miguel SE[employer]AL [employer]ER.EARLY CHILDHOOD [address] [place] [address] Composition Board Press Operator Internal Medicine 07/31/24 Living Specialist Relationship Specialty Start Date End Date Moon Teixeira MD [address] [place] [address] PCP - General Internal Medicine 04/05/24 Mynor Shirley MD [address] [place] [address] Primary Staff Physician Cardiology 10/28/22 Desire Weldon [address] [place] [address] 11/05/22 José Miguel Saldaña, SE[employer].EARLY CHILDHOOD [address] [place] [address] Composition Board Press Operator Internal Medicine 07/31/24 Living Specialist Relationship Specialty Start Date End Date Moon Teixeira MD [address] [place] [address] PCP - General Internal Medicine 04/05/24 Mynor Shirley MD [address] [place] [address] Primary Staff Physician Cardiology 10/28/22 Desire Weldon [address] [address] 11/05/22 Older, José MiguelSCOTT.EARLY CHILDHOOD [address] [place] [address] Composition Board Press Operator Internal Medicine 07/31/24 Team Status: Active Member Role/Relationship Status Dates Dr. Moon Teixeira MD Primary Care Provider Active Team Status: Inactive Member Role/Relationship Status Dates Bart Rosales DIET AID, DIET AID-C Attending Provider Active S tart: November 18, 2024 End: November 18, 2024 Bart Rosales DIET AID, DIET AID-C Referring Provider Active S tart: November 18, [...] Inactive Member Role/Relationship Status Dates Bart Rosales DIET AID, DIET AID-C Attending Provider Active S tart: January 05, 2025 End: January 05, 2025 Bart Rosales DIET AID, DIET AID-C Referring Provider Active S tart: January 05, 2025 End: January 05, 2025 Dr. Moon Teixeira MD Primary Care Provider Active Start: January 05, 2025 End: January 05, 2025 Dr. Yinka Lovelace MD Other Provider Active St art: January 05, 2025 End: January 05, 2025 Team Status: Active Member Role/Relationship Status Dates Bart Rosales DIET AID, DIET AID-C Attending Provider Active S tart: March 08, 2025 Bart Rosales DIET AID, DIET AID-C Referring Provider Active S tart: March 08, [...] March 15, 2025 End: March 15, 2025 Living Specialist Relationship Specialty Start Date End Moon Teixeira MD [address] [place] [address] PCP - General Internal Medicine 04/05/24 Mynor Shirley MD [address] [place] [address] Primary Staff Physician Cardiology 10/28/22 Desire Weldon [address] [place] [address] 11/05/22 José Miguel Saldaña APRN.EARLY CHILDHOOD [address] [place], [place] [address] Composition Board Press Operator Internal Medicine 07/31/24 Team Status: Inactive Member Role/Relationship Status Dates Dr. Moon Teixeira MD Primary Care Provider Active Start: November 28, 2024 End: November 28, 2024 Dr. Isreal Ohara DO Attending Provider Active Start: November 28, 2024 End: November 28, 2024 Dr. Isreal Ohara DO Emergency Provider Active Start: November 28, 2024 End: November 28, 2024 Team Status: Inactive Member Role/Relationship Status Dates Bart Rosales DIET AID, DIET AID-C Attending Provider Active S tart: January 05, 2025 End: January 05, 2025 Bart Rosales DIET AID, DIET AID-C Referring Provider Active S tart: January 05, 2025 End: January 05, 2025 Dr. Moon Teixeira MD Primary Care Provider Active Start: January 05, 2025 End: January 05, 2025 Dr. Yinka Lovelace MD Other Provider Active St art: January 05, 2025 End: January 05, 2025 Team Status: Inactive Member Role/Relationship Status Dates Bart Rosales DIET AID, DIET AID-C Attending Provider Active S tart: March 08, 2025 End: March 23, 2025 Bart Rosales DIET AID, DIET AID-C Referring Provider Active S tart: March 08, 2025 End: March 23, 2025 Dr. Moon Teixeira MD Primary Care Provider Active Start: March 08, 2025 End: March 23, 2025 Dr. Yinka Lovelace MD Other Provider Active St art: March 08, 2025 End: March 23, 2025 Team Status: Inactive Member Role/Relationship Status Dates Dr. Moon Teixeira MD Primary Care Provider Active Start: March 15, 2025 End: March 15, 2025 Dr. Johnie Kelsey DO Attending Provider Active Start: March 15, 2025 End: March 15, 2025 Dr. Johnie Kelsey DO Emergency Provider Active Start: March 15, 2025 End: March 15, 2025 Team Status: Inactive Member Role/Relationship Status Dates Dr. Moon Teixeira MD Primary Care Provider Active Start: March 28, 2025 End: March 28, 2025 Dr. Moon Teixeira MD Referring Provider Active Start: March 28, 2025 End: March 28, 2025 Dr. Yinka Lovelace MD Attending Provider Active Start: March 28, 2025 End: March 28, 2025 Living Specialist Relationship Specialty Start Date End Date Moon Teixeira MD [address] [place] [address] PCP - General Internal Medicine 04/05/24 Mynor Shirley MD [address] [place] [address] Primary Staff Physician Cardiology 10/28/22 Desire Weldon [address] [place] [address] 11/05/22 OlderJosé Miguel SE[employer]AL [employer]ER.EARLY CHILDHOOD [address] [place] [address] Composition Board Press Operator Internal Medicine 07/31/24 Living Specialist Relationship Specialty Start Date End Date Moon Teixeira MD [address] [place] [address] PCP - General Internal Medicine 04/05/24 Mynor Shirley MD [address] [place] [address] Primary Staff Physician Cardiology 10/28/22 Desire Weldon [address] [place] [address] 11/05/22 José Miguel Saldaña, [employer]AL [employer].EARLY CHILDHOOD [address] [facility] [place] [address] Composition Board Press Operator Internal Medicine 07/31/24 Living Specialist Relationship Specialty Start Date End Date Moon Teixeira MD [address] [facility] [place] [address] PCP - General Internal Medicine 04/05/24 Mynor Shirley MD [address] [place] [address] Primary Staff Physician Cardiology 10/28/22 Desire Weldon [address] [place] [address] 11/05/22 Older, José MiguelSCOTT.EARLY CHILDHOOD [address] [place] [address] Composition Board Press Operator Internal Medicine 07/31/24 Team Status: Inactive Member Role/Relationship Status Dates Bart Rosales DIET AID, DIET AID-C Attending Provider Active S tart: January 05, 2025 End: January 05, 2025 Bart Rosales DIET AID, DIET AID-C Referring Provider Active S tart: January 05, 2025 End: January 05, 2025 Dr. Moon Teixeira MD Primary Care Provider Active Start: January 05, 2025 End: January 05, 2025 Dr. Yinka Lovelace MD Other Provider Active St art: January 05, 2025 End: January 05, 2025 Team Status: Inactive Member Role/Relationship Status Dates Bart Rosales DIET AID, DIET AID-C Attending Provider Active S tart: March 08, 2025 End: March 23, 2025 Bart Rosales DIET AID, DIET AID-C Referring Provider Active S tart: March 08, 2025 End: March 23, 2025 Dr. Moon Teixeira MD Primary Care Provider Active Start: March 08, 2025 End: March 23, 2025 Dr. Yinka Lovelace MD Other Provider Active St art: March 08, 2025 End: March 23, 2025 Team Status: Inactive Member Role/Relationship Status Dates Dr. Moon Teixeira MD Primary Care Provider Active Start: March 15, 2025 End: March 15, 2025 Dr. Johnie Kelsey DO Attending Provider Active Start: March 15, 2025 End: March 15, 2025 Dr. Johnie Kelsey DO Emergency Provider Active Start: March 15, 2025 End: March 15, 2025 Team Status: Inactive Member Role/Relationship Status Dates Dr. Moon Teixeira MD Primary Care Provider Active Start: March 28, 2025 End: March 28, 2025 Dr. Moon Teixeira MD Referring Provider Active Start: March 28, 2025 End: March 28, 2025 Dr. Yinka Lovelace MD Attending Provider Active Start: March 28, 2025 End: March 28, 2025 Team Status: Inactive Member Role/Relationship Status Dates Bart Rosales DIET AID, DIET AID-C Attending Provider Active S tart: April 20, 2025 End: April 20, 2025 Bart Rosales DIET AID, DIET AID-C Referring Provider Active S tart: April 20, 2025 End: April 20, 2025 Dr. Moon Teixeira MD Primary Care Provider Active Start: April 20, 2025 End: April 20, 2025 Dr. Yinka Lovelace MD Other Provider Active St art: April 20, 2025 End: April 20, 2025 Living Specialist Relationship Specialty Start Date End Date Moon Teixeira MD [address] [place] [address] PCP - General Internal Medicine 04/05/24 Mynor Shirley MD [address] [place] [address] Primary Staff Physician Cardiology 10/28/22 Desire Weldon [address] [place] [address] 11/05/22 José Miguel Saldaña APRN.EARLY CHILDHOOD [address] [place] [address] Composition Board Press Operator Internal Medicine 07/31/24 Team Status: Active Member Role/Relationship Status Dates Dr. Moon Teixeira MD Primary care physician Active Team Status: Inactive Member Role/Relationship Status Dates Bart Rosales DIET AID, DIET AID-C Attending physician Active Start: March 08, 2025 End: March 23, 2025 Bart Rosales DIET AID, DIET AID-C Referring Provider Active S tart: March 08, 2025 End: March 23, 2025 Dr. Moon Teixeira MD Primary care physician Active Start: March 08, 2025 End: March 23, 2025 Dr. Yinka Lovelace MD Nurse Practitioner Active Start: March 08, 2025 End: March 23, 2025 Team Status: Inactive Member Role/Relationship Status Dates Dr. Moon Teixeira MD Primary care physician Active Start: March 15, 2025 End: March 15, 2025 Dr. Johnie Kelsey DO Attending physician Active Start: March 15, 2025 End: March 15, 2025 Dr. Johnie Kelsey DO Emergency Department Physician Active Start: March 15, 2025 End: March 15, 2025 Team Status: Inactive Member Role/Relationship Status Dates Dr. Moon Teixeira MD Primary care physician Active Start: March 28, 2025 End: March 28, 2025 Dr. Moon Teixeira MD Referring Provider Active Start: March 28, 2025 End: March 28, 2025 Dr. Yinka Lovelace MD Attending physician Active Start: March 28, 2025 End: March 28, 2025 Team Status: Inactive Member Role/Relationship Status Dates Bart Rosales DIET AID, DIET AID-C Attending physician Active Start: April 20, 2025 End: April 20, 2025 Bart Rosales DIET AID, DIET AID-C Referring Provider Active S tart: April 20, 2025 End: April 20, 2025 Dr. Moon Teixeira MD Primary care physician Active Start: April 20, 2025 End: April 20, 2025 Dr. Yinka Lovelace MD Nurse Practitioner Active Start: April 20, 2025 End: April 20, 2025 Team Status: Inactive Member Role/Relationship Status Dates Bart Rosales DIET AID, DIET AID-C Attending physician Active Start: April 28, 2025 End: May 23, 2025 Bart Rosales DIET AID, DIET AID-C Referring Provider Active S tart: April 28, 2025 End: May 23, 2025 Dr. Moon Teixeira MD Primary care physician Active Start: April 28, 2025 End: May 23, 2025 Dr. Yinka Lovelace MD Nurse Practitioner Active Start: April 28, 2025 End: May 23, 2025 Team Status: Inactive Member Role/Relationship Status Dates Dr. Moon Teixeira MD Primary care physician Active Start: May 18, 2025 End: May 18, 2025 Dr. Ousmane Matias DO Attending physician Active Start: May 18, 2025 End: May 18, 2025 Dr. Ousmane Matias DO Emergency Depart ent Physician Active Start: May 18, 2025 End: May 18, 2025 Team Status: Active Member Role/Relationship Status Dates Dr. Moon Teixeira MD Primary care physician Active Start: May 22, 2025 Dr. Braeden John MD Attending physician Active Start: May 22, 2025 Dr. Braeden John MD Referring Provider Active Start: May 22, 2025 FOR RECORDS PERTAINING TO PATIENTS WHO [...] BE BASED ON THE PRIMARY CLINICAL RECORDS. [employer] provides no warranty or guarantee of the accuracy or completeness of information in this document.
[2025-08-06 21:33] VITALS: BP 157/90; PULSE 65; RESP 16; TEMP 36.6; O2SAT 98
== END 2025-08-06 21:34 | disposition home or self-care (01) ==
LOC: ED 21:12
PROVIDERS: Emergency Provider Emergency Medicine; PCP Internal Medicine; Visit Provider Emergency Medicine
DX: S09.90XA Unspecified injury of head, initial encounter (principal); I48.91 Unspecified atrial fibrillation; W18.30XA Fall on same level, unspecified, initial encounter; I10 Essential (primary) hypertension; Z79.01 Long term (current) use of 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
CPT/HCPCS: 70450; 99284

== ENCOUNTER 2025-08-09 10:55 | Emergency (ER) | payer BC, SELFPAY ==
[2025-08-09 10:56] VITALS: BP 163/131; PULSE 91; RESP 20; TEMP 36; O2SAT 97
[2025-08-09 12:22] VITALS: BMI 28.3
[2025-08-09 12:59] VITALS: BP 151/71; PULSE 106; RESP 23; O2SAT 98
--- NOTE | 2025-08-09 13:42 | CT_ITS ---
PROCEDURE: PELVIS WITHOUT IV CONTRAST 08/09/2025 REASON FOR EXAM: FALL, PAIN TECHNIQUE: Procedure Code: CTPEL Modality: CT Procedure: PELVIS WITHOUT IV CONTRAST One or more dose reduction techniques were used (e.g., Automated exposure control, adjustment of the mA and/or kV according to patient size, use of iterative reconstruction technique). RADIATION DOSE SUMMARY: CTDlvol: mGy DLP: 418.4 mGycm COMPARISON: None FINDINGS: Bones: No fracture seen. Hip Joints: Degenerative changes are present SI Joints: Mild degenerative chages. Soft Tissues: Vascular calcification. CT/Pelvis without IV Contrast IMPRESSION: DEGENERATIVE CHANGES. NO FRACTURE. Reading Location: [facility]
--- NOTE | 2025-08-09 13:42 | CT_ITS ---
PROCEDURE: SPINE LUMBAR WITHOUT CONTRAST 08/09/2025 REASON FOR EXAM: FALL Right hip pain following a fall. TECHNIQUE: Procedure Code: CTSPL Modality: CT Procedure: SPINE LUMBAR WITHOUT CONTRAST Coronal and Sagittal reconstruction series were provided. One or more dose reduction techniques were used (e.g., Automated exposure control, adjustment of the mA and/or kV according to patient size, use of iterative reconstruction technique COMPARISON: None RADIATION DOSE SUMMARY: CTDlvol: mGy DLP: 1008.66 mGycm FINDINGS: Vertebrae: Minimal loss of height of the superior endplate of the L4 vertebrae on the right side. Alignment: Unremarkable L1-2: Disc space is well-maintained. No evidence of stenosis. L2-3: Disc space is well-maintained. Facet joint hypertrophy. Mild degree of diffuse posterior disc bulge. Mild neural foraminal stenosis. L3-4: Mild degree of disc space narrowing. Facet joint osteoarthritis and hypertrophy. Diffuse posterior disc bulge. Moderate degree of bilateral neural foraminal stenosis. Mild central canal stenosis. Loss of height of the superior endplate of the L4 vertebrae on the right side. L4-5: Mild degree of disc space narrowing. Facet joint osteoarthritis and hypertrophy. Diffuse posterior disc bulge. Hypertrophy of the ligamentum flava. Moderate degree of central canal stenosis and bilateral neural foraminal stenosis. L5-S1: Mild degree of disc space narrowing. Facet joint osteoarthritis and hypertrophy. Sacrum: Unremarkable CT/Spine Lumbar without Contrast IMPRESSION: Minimal loss of height of the superior endplate of the L4 vertebrae on the righ t side. Multilevel disc space narrowing and stenosis as described. Reading Location: [facility]
--- NOTE | 2025-08-09 13:42 | CT_ITS ---
PROCEDURE: SPINE CERVICAL WITHOUT CONTRAS 08/09/2025 REASON FOR EXAM: PAIN, FALL TECHNIQUE: Procedure Code: CTSPC Modality: CT Procedure: SPINE CERVICAL WITHOUT CONTRAS Coronal and Sagittal reconstruction series were provided. One or more dose reduction techniques were used (e.g., Automated exposure control, adjustment of the mA and/or kV according to patient size, use of iterative reconstruction technique. RADIATION DOSE SUMMARY: CTDlvol: 36.34 mGy DLP: 2524.42 mGycm COMPARISON: None FINDINGS: Alignment: Normal alignment. Vertebrae: No acute bony abnormalities. Soft Tissues: No soft tissue abnormalities. Disc levels: Multilevel degenerate changes predominantly for bilateral facet joints arthropathy and severe canal stenosis at C3-C4, C4-C5 and C5-C6. No significant canal stenosis. CT/Spine Cervical without Contras IMPRESSION: No acute injury to the cervical spine. Reading Location: [id number]
--- NOTE | 2025-08-09 13:54 | EX.ED.DYSGE1 ---
HPI History of Present Illness Chief Complaint: Lower Extremity Injury Narrative Narrative: Chief complaint and HPI: 79-year-old female with past medical history of chronic right hip pain, atrial fibrillation on warfarin, HTN presents for evaluation of right hip, back, neck pain after a mechanical fall. Patient has had 2 mechanical falls in the past several weeks. States she has lost her balance. States she also suffers from intermittent sciatica. She was seen in our emergency department in which she had imaging of the head that was negative for acute pathology. She was discharged home. Patient states since her last fall she has been having right hip, back, neck pain. She was seen at an urgent care in which she had x-rays performed that was negative. She states her pain has continued despite home narcotics and muscle relaxers. She denies any fever, chills, shortness of breath, chest pain abdominal pain, nausea, vomiting. Review of systems: See HPI Medications: As listed on the chart Allergies: As listed on the chart PFSH: Per chart Vital signs: As listed on the chart. Reviewed. Physical exam: Gen: A&O x3, NAD Head: Normocephalic, atraumatic Eyes: No sclera icterus, conjunctiva clear ENT: Moist mucous membranes, atraumatic Neck: Trachea midline, no midline spinal tenderness, no bony step-offs, mild tenderness to palpation of the left cervical paraspinal musculature CV: RRR, no murmurs, no chest wall TTP Resp: Lungs CTA BL, no w/r/c GI: Abd soft, non-distended, non-tender, no r/r/g Musc: Full ROM, no deformity, no spinal TTP, no johanna step-offs, tender to palpation of the bilateral paraspinal musculature of the lower lumbar spine, DP/PT pulses +2 bilaterally, sensation intact Skin: Warm, dry Neuro: Alert, oriented, grossly intact Psych: Cooperative, appropriate mood and affect [facility] Medical History Shortness of breath 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 eye health 03/10/16 03/14/25 History coenzyme Q10 50 mg chewable tablet 30 mg PO DAILY 06/07/19 03/14/25 History metoprolol tartrate 25 mg tablet 12.5 mg (1/2 x 25 mg) PO BID PRN 09/09/24 11/28/24 Rx afib #180 tabs timolol maleate 0.5 % eye drops 1 drp ophthalmic (eye) BID 09/26/24 03/15/25 History warfarin 5 mg tablet 7.5 mg PO SUTUTHSA 11/28/24 03/14/25 History warfarin 5 mg tablet 5 mg PO .COMPLEX #120 tabs 01/26/25 03/14/25 Rx ascorbic acid (vitamin C) 500 mg 1 g PO DAILY 03/15/25 Unknown History tablet (C-500) cholecalciferol (vitamin D3) 25 2,000 unit PO DAILY vitamin 03/28/25 Unknown History mcg (1,000 unit) tablet oxycodone-acetaminophen 5 mg-325 1 tab PO TID PRN PRN pain 06/07/25 Unknown History mg tablet baclofen 10 mg tablet 10 mg PO TID 08/06/25 08/06/25 History Allergy/AdvReac Type Severity Reaction Status Date / Time morphine Allergy Intermediate Hives Verified 08/09/25 14:22 cat dander Allergy Mild congestion Verified 08/09/25 10:56 grass pollen Allergy Mild Cough, Verified 08/09/25 10:56 rhinitis house dust Allergy Mild Cough, Verified 08/09/25 10:56 rhinitis mold Allergy Mild Cough, Verified 08/09/25 10:56 rhinitis tree and shrub pollen Allergy Mild Cough, Verified 08/09/25 10:56 rhinitis Sulfa (Sulfonamide Allergy Itching Verified 08/09/25 10:56 Antibiotics) losartan AdvReac Severe dizziness, Verified 08/09/25 10:56 severe amlodipine AdvReac Intermediate dizziness Verified 08/09/25 10:56 lisinopril AdvReac Intermediate Nagging Verified 08/09/25 10:56 dry cough Benzodiazepines AdvReac Other Verified 08/09/25 10:56 diazepam (From Valium) AdvReac Other Verified 08/09/25 10:56 Family History Father Myocardial infarction from [place] age 61 Heart disease Diabetes Sister Breast cancer 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 Family History no significant family his Surgical History history vein surgery history TMJ surgery History of cataract surgery S/P excision of Ramos's neuroma History of carpal tunnel release History of tonsillectomy Social History household members: spouse housing: house Smoking Status: Never smoker alcohol intake: current alcohol intake frequency: a few times a month substance use type: does not use what type of physical activity do you participate in: none do you feel safe at home: Yes EXAM Physical Exam Const Vital Signs: 08/09/25 10:56 08/09/25 12:59 08/09/25 14:00 Temperature 96.8 F L Temperature Source Temporal Pulse Rate 91 106 H 61 Respiratory Rate 20 H 23 H Blood Pressure 163/131 H 151/71 H 136/74 H Blood Pressure Mean 141 97 94 Pulse Ox 97 98 Oxygen Delivery Method Room Air Room Air MDM MDM MDM Narrative Medical decision making narrative: 79-year-old female with past medical history of chronic right hip pain, atrial fibrillation on warfarin, HTN presents for evaluation of right hip, back, neck pain after a mechanical fall. Patient has had 2 mechanical falls in the past several weeks. States she has lost her balance. States she also suffers from intermittent sciatica. She was seen in our emergency department in which she had imaging of the head that was negative for acute pathology. She was discharged home. Patient states since her last fall she has been having right hip, back, neck pain. She was seen at an urgent care in which she had x-rays performed that was negative. She states her pain has continued despite home narcotics and muscle relaxers. See physical exam findings. Differential diagnosis includes but is not limited to contusion, myofascial spasm, fracture. Morphine and Zofran ordered for pain. Will obtain CT of the cervical spine, pelvis, lumbar spine. I do not think any laboratory workup is needed. CT of the cervical spine shows no acute traumatic injury. Patient has chronic changes of the cervical spine. CT of the lumbar spine shows minimal loss of height of the superior endplate of L4 vertebra on the right side. Multilevel disc space narrowing and stenosis. No acute fracture or dislocation. CT of the pelvis shows no fracture or acute traumatic injury. At this point in time, I suspect patient's symptoms are likely secondary to myofascial spasm/contusion. Her pain has improved with morphine. She did have a reaction to morphine, a rash in which she required Benadryl. Patient was able to ambulate to the bathroom. Patient stable to discharge home. Continue her home narcotics and muscle relaxer. Will send her with a prescription for lidocaine patches. Recommend heating pad and IcyHot. Follow-up with primary care physician and will refer to orthospine given her findings. She confirmed understand the plan. Impression: 1. Cervical strain 2. Lumbar strain 4. Chronic right hip pain Radiography Diagnostic Testing: Clinical Impression(s) from Imaging Studies Cervical Spine CT 08/09/25 13:42 IMPRESSION: No acute injury to the cervical spine. Reading Location: [facility] Lumbar Spine CT 08/09/25 13:42 IMPRESSION: Minimal loss of height of the superior endplate of the L4 vertebrae on the right side. Multilevel disc space narrowing and stenosis as described. Reading Location: [facility] Pelvis CT 08/09/25 13:42 IMPRESSION: DEGENERATIVE CHANGES. NO FRACTURE. Reading Location: [id number] Discharge Plan Triage Chief Complaint: Lower Extremity Injury ED Provider: Deniz Fair Dx/Rx/DC Orders Prescriptions: No Action latanoprost 1 DROP bottle 1 drp EACH EYE QHS cholecalciferol (vitamin D3) 25 mcg (1,000 unit) tablet 2,000 unit PO DAILY coenzyme Q10 50 MG tablet,chewable 30 mg PO DAILY warfarin 5 mg tablet 7.5 mg PO SUTUTHSA Protocol: Dose Management Condition: Thursday Dose/Route: 5 mg Instruction: 1 x 5 mg tablet Condition: Thursday Dose/Route: 5 mg Instruction: 1 x 5 mg tablet Condition: Thursday Dose/Route: 7.5 mg Instruction: 1.5 x 5 mg tablets Condition: Thursday Dose/Route: 5 mg Instruction: 1 x 5 mg tablet Condition: Dose/Route: 7.5 mg Instruction: 1.5 x 5 mg tablets Condition: Thursday Dose/Route: 7.5 mg Instruction: 1.5 x 5 mg tablets Condition: Thursday Dose/Route: 5 mg Instruction: 1 x 5 mg tablet Protocol Text: Adjustment Start Date: Thursday08/04/25 INR Value: 2.0 INR Date: 08/04/25 Recheck Date: 08/18/25 baclofen 10 mg tablet 10 mg PO TID timolol maleate 0.5 % drops 1 drp ophthalmic (eye) BID ascorbic acid (vitamin C) [C-500] 500 mg tablet 1 g PO DAILY oxycodone-acetaminophen 5-325 mg tablet 1 tab PO TID PRN PRN (Reason: pain) metoprolol tartrate 25 mg tablet 12.5 mg PO BID PRN (Reason: afib) Qty: 180 3RF warfarin 5 mg tablet 5 mg PO .COMPLEX Qty: 120 3RF Protocol: Dose Management Condition: Thursday Dose/Route: 5 mg Instruction: 1 x 5 mg tablet Condition: Thursday Dose/Route: 5 mg Instruction: 1 x 5 mg tablet Condition: Thursday Dose/Route: 7.5 mg Instruction: 1.5 x 5 mg tablets Condition: Thursday Dose/Route: 5 mg Instruction: 1 x 5 mg tablet Condition: Dose/Route: 7.5 mg Instruction: 1.5 x 5 mg tablets Condition: Thursday Dose/Route: 7.5 mg Instruction: 1.5 x 5 mg tablets Condition: Thursday Dose/Route: 5 mg Instruction: 1 x 5 mg tablet Protocol Text: Adjustment Start Date: Thursday08/04/25 INR Value: 2.0 INR Date: 08/04/25 Recheck Date: 08/18/25 Rx Instructions: 5 mg orally M/W/F, 7.5 mg (1.5 tablets) S/T//S or as directed Primary Care Provider: Moon Malone Referrals: Moon Malone MD [Primary Care Provider, Internal Medicine] Print Language: Yakut
[2025-08-09 14:00] VITALS: BP 136/74; PULSE 61
[2025-08-09] MEDS: DiphenhydrAMINE 50 MG/ML Syringe IV (14:18)
--- NOTE | 2025-08-09 14:19 | ED.RN ---
1407 this RN giving zofran and morphine, pt. stated after getting morphine that she was feeling itchy and her the skin on her chest felt like it was burning. Upon exam chest was red and had some raised welts.Dr. cuevas notified and verbal order for 50 mg IV benadryl given to patient.
[2025-08-09 15:34] VITALS: BP 164/83; PULSE 63; RESP 13; TEMP 36.9; O2SAT 97
== END 2025-08-09 15:58 | disposition home or self-care (01) ==
PROVIDERS: Emergency Provider Surgery; PCP Internal Medicine; Visit Provider Surgery
DX: M25.551 Pain in right hip (principal); I10 Essential (primary) hypertension; R21 Rash and other nonspecific skin eruption; G89.29 Other chronic pain; S39.012A Strain of muscle, fascia and tendon of lower back, initial encounter; S16.1XXA Strain of muscle, fascia and tendon at neck level, initial encounter; Z79.01 Long term (current) use of 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; W19.XXXA Unspecified fall, initial encounter
CPT/HCPCS: 72125; 72131; 72192; 96374; 96375; 99284; A4216; J2405